=== PATIENT | male | born 1945 | race Caucasian/White ===

== ENCOUNTER → 2017-08-05 08:04 | Outpatient (CLI) | payer MEDICARE, OTHER, SELFPAY ==
[2017-08-05 10:23] LABS: Hemoglobin A1c 9.4 % (4.2-6.3)
[2017-08-05 10:24] LABS: ALB/GLOB Ratio 0.9 RATIO (0.9-2.4); AST(SGOT) 20 U/L (15-37); Alanine Aminotransfer ALT/SGPT 29 U/L (16-61); Albumin, Serum 3.1 g/dL (3.2-5.0); Alkaline Phosphatase 103 U/L (45-117); Anion Gap 5 (5-15); BUN 31 mg/dL (7-18); BUN/Creat Ratio 21.2 RATIO (10-20); Calcium,Total 8.3 mg/dL (8.5-10.1); Chloride 106 mmol/L (98-107); Cholesterol 170 mg/dL (200); Creatinine, Serum 1.46 mg/dL (0.70-1.30); EST Glomerular Filtration Rate 50 mL/min (>60); Est Glom Filt Rate - Afr Amer 61 mL/min (>60); Globulin 3.6 g/dL (2.2-4.2); Glucose 55 mg/dL (74-106); High Density Lipoprotein 41 mg/dL; Potassium 3.6 mmol/L (3.5-5.1); Protein, Total 6.7 g/dL (6.4-8.2); Sodium Level 143 mmol/L (136-145); Thyroid Stim Hormone (TSH) 3.18 uIU/mL (0.358-3.74); Triglycerides 114 mg/dL; Very Low Density Lipoprotein 23 mg/dL (5-40)
== END ==
PROVIDERS: Family Provider Nurse Practitioner; PCP Nurse Practitioner; Visit Provider Internal Medicine Endocrinology, Diabetes & Metabolism
DX: E11.65 Type 2 diabetes mellitus with hyperglycemia (principal)
CPT/HCPCS: 36415; 80053; 80061; 83036; 84443

== ENCOUNTER → 2017-09-10 10:00 | Outpatient (CLI) | payer MEDICARE, OTHER, SELFPAY ==
[2017-09-10 12:19] LABS: Absolute Lymphocyte Count 1.11 X10^3/ul (0.83-4.51); Absolute Neutrophil Count 3.4 X10^3/uL (2.0-7.7); Basophil# 0.03 X10^3/uL; Basophil% 0.6 % (0-1); Eosinophil# 0.07 X10^3/uL; Eosinophils% 1.4 % (0-5); Hematocrit 34.4 % (40-54); Hemoglobin 11.7 g/dl (13.0-16.5); Lymphocyte # 1.11 X10^3/ul (4.0); Lymphocyte % 21.6 % (19-41); Mean Corpuscular Hgb 30.5 pg (27.0-32.0); Mean Corpuscular Volume 89.6 fL (80-94); Mean Platelet Vol. 10.5 fl (6.2-12.0); Monocyte# 0.54 X10^3/uL; Monocyte% 10.5 % (0-10); Neutrophil # 3.37 X10^3/uL (2.7-7.7); Neutrophil % 65.7 % (47-70); Platelet Count 376 K/mm3 (150-450); RBC Distribution Width CV 12.2 % (11.6-14.6); RBC Distribution Width SD 39.4 fl (35.1-43.9); Red Blood Count 3.84 M/mm3 (4.6-6.2); White Blood Count 5.1 K/mm3 (4.4-11.0)
[2017-09-10 12:30] LABS: POSITIVE COUNT NO; POSITIVE DIFFERENTIAL NO; POSITIVE MORPHOLOGY NO
[2017-09-10 12:32] LABS: ALB/GLOB Ratio 0.9 RATIO (0.9-2.4); AST(SGOT) 20 U/L (15-37); Alanine Aminotransfer ALT/SGPT 22 U/L (16-61); Albumin, Serum 3.3 g/dL (3.2-5.0); Alkaline Phosphatase 95 U/L (45-117); Anion Gap 6 (5-15); BUN 43 mg/dL (7-18); BUN/Creat Ratio 24.7 RATIO (10-20); Calcium,Total 8.9 mg/dL (8.5-10.1); Chloride 104 mmol/L (98-107); Creatinine, Serum 1.74 mg/dL (0.70-1.30); EST Glomerular Filtration Rate 41 mL/min (>60); Est Glom Filt Rate - Afr Amer 50 mL/min (>60); Globulin 3.8 g/dL (2.2-4.2); Glucose 180 mg/dL (74-106); Potassium 4.1 mmol/L (3.5-5.1); Protein, Total 7.1 g/dL (6.4-8.2); Sodium Level 139 mmol/L (136-145)
== END ==
PROVIDERS: Family Provider Nurse Practitioner; PCP Nurse Practitioner; Visit Provider Nurse Practitioner Gerontology
DX: E11.65 Type 2 diabetes mellitus with hyperglycemia (principal)
CPT/HCPCS: 36415; 80053; 85025

== ENCOUNTER → 2017-09-11 09:39 | Outpatient (CLI) | payer MEDICARE, OTHER, SELFPAY ==
[2017-09-11 12:39] LABS: Absolute Lymphocyte Count 1.09 X10^3/ul (0.83-4.51); Absolute Neutrophil Count 2.7 X10^3/uL (2.0-7.7); Basophil# 0.02 X10^3/uL; Basophil% 0.5 % (0-1); Eosinophil# 0.06 X10^3/uL; Eosinophils% 1.4 % (0-5); Hematocrit 35.2 % (40-54); Hemoglobin 11.6 g/dl (13.0-16.5); Lymphocyte # 1.09 X10^3/ul (4.0); Lymphocyte % 24.9 % (19-41); Mean Corpuscular Hgb 29.4 pg (27.0-32.0); Mean Corpuscular Volume 89.1 fL (80-94); Mean Platelet Vol. 10.2 fl (6.2-12.0); Monocyte# 0.55 X10^3/uL; Monocyte% 12.6 % (0-10); Neutrophil # 2.65 X10^3/uL (2.7-7.7); Neutrophil % 60.6 % (47-70); Platelet Count 348 K/mm3 (150-450); RBC Distribution Width CV 12.4 % (11.6-14.6); RBC Distribution Width SD 40.2 fl (35.1-43.9); Red Blood Count 3.95 M/mm3 (4.6-6.2); White Blood Count 4.4 K/mm3 (4.4-11.0)
[2017-09-11 13:10] LABS: ALB/GLOB Ratio 0.9 RATIO (0.9-2.4); AST(SGOT) 21 U/L (15-37); Alanine Aminotransfer ALT/SGPT 22 U/L (16-61); Albumin, Serum 3.4 g/dL (3.2-5.0); Alkaline Phosphatase 94 U/L (45-117); Anion Gap 11 (5-15); BUN 42 mg/dL (7-18); BUN/Creat Ratio 21.9 RATIO (10-20); Calcium,Total 8.7 mg/dL (8.5-10.1); Chloride 102 mmol/L (98-107); Creatinine, Serum 1.92 mg/dL (0.70-1.30); EST Glomerular Filtration Rate 37 mL/min (>60); Est Glom Filt Rate - Afr Amer 44 mL/min (>60); Globulin 3.6 g/dL (2.2-4.2); Glucose 185 mg/dL (74-106); POSITIVE COUNT NO; POSITIVE DIFFERENTIAL NO; POSITIVE MORPHOLOGY NO; Potassium 3.8 mmol/L (3.5-5.1); Sodium Level 138 mmol/L (136-145)
== END ==
PROVIDERS: Family Provider Nurse Practitioner; PCP Nurse Practitioner; Visit Provider Nurse Practitioner Gerontology
DX: R11.0 Nausea (principal)
CPT/HCPCS: 36415; 80053; 85025

== ENCOUNTER → 2017-11-23 08:12 | Outpatient (CLI) | payer MEDICARE, OTHER, SELFPAY ==
[2017-11-23 10:15] LABS: PSA,Total - Annual Screen 3.03 ng/mL (0.00-4.00)
== END ==
PROVIDERS: Family Provider Nurse Practitioner; PCP Nurse Practitioner; Visit Provider Urology
DX: R10.9 Unspecified abdominal pain (principal); Z12.5 Encounter for screening for malignant neoplasm of prostate
CPT/HCPCS: 36415; 84153; 87086; G0103

== ENCOUNTER → 2018-01-04 08:52 | Outpatient (CLI) | payer MEDICARE, OTHER, SELFPAY ==
[2018-01-04 10:37] LABS: Hemoglobin A1c 8.5 % (4.2-6.3)
[2018-01-04 10:41] LABS: ALB/GLOB Ratio 0.8 RATIO (0.9-2.4); AST(SGOT) 18 U/L (15-37); Alanine Aminotransfer ALT/SGPT 26 U/L (16-61); Albumin, Serum 3.2 g/dL (3.2-5.0); Alkaline Phosphatase 103 U/L (45-117); Anion Gap 11 (5-15); BUN 36 mg/dL (7-18); Calcium,Total 8.6 mg/dL (8.5-10.1); Chloride 104 mmol/L (98-107); Creatinine, Serum 1.89 mg/dL (0.70-1.30); EST Glomerular Filtration Rate 37 mL/min (>60); Est Glom Filt Rate - Afr Amer 45 mL/min (>60); Globulin 3.9 g/dL (2.2-4.2); Glucose 69 mg/dL (74-106); Potassium 3.7 mmol/L (3.5-5.1); Protein, Total 7.1 g/dL (6.4-8.2); Sodium Level 144 mmol/L (136-145); Thyroid Stim Hormone (TSH) 3.19 uIU/mL (0.358-3.74)
== END ==
PROVIDERS: Family Provider Nurse Practitioner; PCP Nurse Practitioner; Visit Provider Internal Medicine Endocrinology, Diabetes & Metabolism
DX: E11.65 Type 2 diabetes mellitus with hyperglycemia (principal)
CPT/HCPCS: 36415; 80053; 83036; 84443

== ENCOUNTER → 2018-01-16 06:47 | Outpatient (CLI) | payer MEDICARE, OTHER, SELFPAY ==
--- NOTE | 2018-01-16 | IMM_PTH ---
PATIENT: DEX VALLE LOC: [facility] U#:[id number] AGE/SX: 79/M ROOM: RE01/16/[address]: Dr. Nitesh Tubbs MD : 1945 BED: DIS: SPEC #: [id number] RECD: 01/19/18 13:56 STATUS: KATI RECarolyn #: [id number] AMBER: 01/16/18 00:[address]: Nitesh Tubbs DEPT: IMMUNOHISTOCHEMISTRY RECD BY: uLma Thomas ENTERED: 01/19/18 13:58 SP TYPE: IMMUNO OTHR DR: Fina Spicer, BANDOLEER STRAIGHTENER STAMPER-C Tissues: Skin of leg, NOS Procedures: CD31 (initial) Vimentin (add) FACTOR VIII (add) PHYSICIAN & INSTITUTION [place] [address] SPECIMEN INFORMATION: Tissue Source: Left lower leg lesion of subcutaneous tissue Clinical Info: Lesion of subcutaneous tissue Specimen Number: [id number] #1 CPT code: 77257, 05294 x2 METHODOLOGY: Deparaffinized sections of prefer/formalin-fixed tissue or PAP/DQ stained slides are incubated with monoclonal/polyclonal antibodies/oligonucleotide probes. Localization is made via biotin free immunoperoxidase method. Appropriate controls are performed and reacted as expected. Results on target cell population are indicated in the following table: RESULTS: ANTIBODY / CLONE RESULT Block 1 CD31 (NATHALIE/70A) positive Factor VIII (R Ag) positive Vimentin (V9) positive These tests were developed and their performance characteristics determined by [facility]. They may not have been cleared or approved by the U.[place]. Food and Drug Administration. The FDA has determined that such clearance or approval is not necessary. 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 SJ:christiano 01/27/18 The specimen was sent to [facility] for expert opinion and reviewed by Dr. Regan Echeverria and the above diagnosis is rendered. Case has been reviewed in consultation with Dr. Patrick who concurs with the above diagnosis. IDC:AM
--- NOTE | 2018-01-16 09:00 | LES_PTH ---
PATIENT: DEX VALLE LOC: [facility] U#:[id number] AGE/SX: 79/M ROOM: RE01/16/[address]: Dr. Nitesh Tubbs MD : 1945 BED: DIS: SPEC #: [id number] RECD: 01/16/18 12:08 STATUS: KATI HOWARD #: [id number] AMBER: 01/16/18 09:[address]: Nitesh Tubbs DEPT: SURGICAL PATHOLOGY RECD BY: Salud Montilla ENTERED: 01/18/18 11:40 SP TYPE: Lesion OTHR DR: Fina Spicer, AMPOULE SEALER-C Tissues: Skin of leg, NOS Procedures: [facility] Consultation (on slides) Surgery Specimen Level IV HEADER OPERATION: Excision of left lower leg lesion of subcutaneous tissue PRE-OP DIAGNOSIS: Lesion of subcutaneous tissue TISSUE SUBMITTED: Left lower leg lesion of subcutaneous tissue MICROSCOPIC DIAGNOSIS Left lower leg lesion of subcutaneous tissue, excision: 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 POLLO:christiano 01/27/18 COMMENT Immunohistochemistry ([id number]) supports the above diagnosis. The specimen was sent to [facility] for expert opinion and reviewed by Dr. Regan Echeverria and the above diagnosis is rendered. Case has been reviewed in consultation with Dr. Patrick who concurs with the above diagnosis. IDC:AM MICROSCOPIC DESCRIPTION Slides are reviewed. GROSS DESCRIPTION Received in fixative is one container labeled with the patient's name and designated left lower leg. The specimen consists of a piece of rios-pink nodule measuring 2.5 x 2 x 1.5 cm. The specimen is inked and serially sectioned to reveal rios-white solid cut surfaces. The entire specimen is submitted in three cassettes from one end to another. / POLLO:christiano 01/18/18 TC:5 CPT: 70576
== END ==
PROVIDERS: Family Provider Nurse Practitioner; PCP Nurse Practitioner; Referring Provider Surgery; Visit Provider Surgery
DX: L98.9 Disorder of the skin and subcutaneous tissue, unspecified (principal)
CPT/HCPCS: 88305; 88325; 88341; 88342

== ENCOUNTER → 2018-02-08 08:45 | Outpatient (CLI) | payer MEDICARE, OTHER, SELFPAY ==
--- NOTE | 2018-02-08 08:49 | US_ITS ---
STUDY: RENAL ULTRASOUND - COMPLETE REASON FOR EXAM: Male, 72 years old. Chronic kidney disease TECHNIQUE: Ultrasound evaluation of the kidneys was performed with real-time and static bell-scale imaging. COMPARISON: None. FINDINGS: RIGHT KIDNEY: Normal location of the right kidney, which is normal in size. The right kidney measures 11.4 x 5.9 x 5.4 cm. There is a normal cortex of the right kidney. The renal cortex measures 1.1 cm. There is no right renal mass or cyst. 3 mm Echogenicity in the lower pole of the left kidney suggesting a nonobstructing stone. There is no right hydronephrosis. DISTAL RIGHT URETER: There is non-visualization of the distal right ureter. There is no demonstrated right ureterovesical junction calculus. There is a visualized right ureteral jet. LEFT KIDNEY: Normal location of the left kidney, which is normal in size. The left kidney measures 11.2 x 5.2 x 5.7 cm. There is diffuse thinning of the renal cortex. The renal cortex measures 0.6 cm. There is no left renal mass or cyst. There are no left renal calculi. There is no left hydronephrosis. A punctate echogenicities in the left kidney suggesting probable small stones. DISTAL LEFT URETER: There is non-visualization of the distal left ureter. There is no demonstrated left ureterovesical junction calculus. There is a visualized left ureteral jet. BLADDER: The distended urinary bladder has a volume of 41 ml. There is a normal wall thickness of the distended urinary bladder. There is no demonstrated mass within the urinary bladder. There are no demonstrated bladder calculi. US/Kidney and Bladder IMPRESSION: No evidence for hydronephrosis. Punctate stones left kidney no evidence of hydronephrosis. Punctate stone right kidney no evidence of hydronephrosis. Diffuse left renal parenchymal thinning compatible with underlying medical renal disease. Electronically Signed: Angelita Hyatt MD at 23:45 EDT Tel , Service support ,
== END ==
PROVIDERS: Family Provider Nurse Practitioner; PCP Nurse Practitioner; Referring Provider Internal Medicine Nephrology; Visit Provider Internal Medicine Nephrology
DX: N18.3 Chronic kidney disease, stage 3 (moderate) (principal)
CPT/HCPCS: 76770

== ENCOUNTER → 2018-03-08 13:10 | Outpatient (CLI) | payer MEDICARE, OTHER, SELFPAY ==
[2018-03-08 16:26] LABS: Anion Gap 11 (5-15); BUN 36 mg/dL (7-18); BUN/Creat Ratio 18.9 RATIO (10-20); Calcium,Total 8.8 mg/dL (8.5-10.1); Chloride 103 mmol/L (98-107); EST Glomerular Filtration Rate 37 mL/min (>60); Est Glom Filt Rate - Afr Amer 45 mL/min (>60); Glucose 84 mg/dL (74-106); Potassium 3.8 mmol/L (3.5-5.1); Sodium Level 142 mmol/L (136-145)
== END ==
PROVIDERS: Family Provider Nurse Practitioner; PCP Nurse Practitioner; Referring Provider Internal Medicine Endocrinology, Diabetes & Metabolism; Visit Provider Internal Medicine Endocrinology, Diabetes & Metabolism
DX: E11.65 Type 2 diabetes mellitus with hyperglycemia (principal)
CPT/HCPCS: 36415; 80048; 82533

== ENCOUNTER → 2018-04-08 07:41 | Outpatient (CLI) | payer MEDICARE, OTHER, SELFPAY ==
[2018-04-08 10:19] LABS: Absolute Lymphocyte Count 1.19 X10^3/ul (0.83-4.51); Absolute Neutrophil Count 3.7 X10^3/uL (2.0-7.7); Basophil# 0.03 X10^3/uL; Basophil% 0.6 % (0-1); Eosinophil# 0.12 X10^3/uL; Eosinophils% 2.2 % (0-5); Hematocrit 35.3 % (40-54); Hemoglobin 11.5 g/dl (13.0-16.5); Lymphocyte # 1.19 X10^3/ul (4.0); Mean Corp Hgb Conc 32.6 g/gl (32-36); Mean Corpuscular Hgb 29.6 pg (27.0-32.0); Mean Corpuscular Volume 90.7 fL (80-94); Mean Platelet Vol. 10.4 fl (6.2-12.0); Monocyte# 0.42 X10^3/uL; Monocyte% 7.7 % (0-10); Neutrophil # 3.66 X10^3/uL (2.7-7.7); Neutrophil % 67.5 % (47-70); Platelet Count 377 K/mm3 (150-450); RBC Distribution Width CV 12.3 % (11.6-14.6); RBC Distribution Width SD 40.7 fl (35.1-43.9); Red Blood Count 3.89 M/mm3 (4.6-6.2); White Blood Count 5.4 K/mm3 (4.4-11.0)
[2018-04-08 10:23] LABS: POSITIVE COUNT NO; POSITIVE DIFFERENTIAL NO; POSITIVE MORPHOLOGY NO
[2018-04-08 10:31] LABS: ALB/GLOB Ratio 0.8 RATIO (0.9-2.4); AST(SGOT) 20 U/L (15-37); Alanine Aminotransfer ALT/SGPT 28 U/L (16-61); Albumin, Serum 3.2 g/dL (3.2-5.0); Alkaline Phosphatase 110 U/L (45-117); Anion Gap 10 (5-15); BUN 38 mg/dL (7-18); Calcium,Total 8.8 mg/dL (8.5-10.1); Chloride 103 mmol/L (98-107); EST Glomerular Filtration Rate 37 mL/min (>60); Est Glom Filt Rate - Afr Amer 45 mL/min (>60); Globulin 3.9 g/dL (2.2-4.2); Glucose 101 mg/dL (74-106); Potassium 3.5 mmol/L (3.5-5.1); Protein, Total 7.1 g/dL (6.4-8.2); Sodium Level 142 mmol/L (136-145)
== END ==
PROVIDERS: Family Provider Nurse Practitioner; PCP Nurse Practitioner; Referring Provider Nurse Practitioner; Visit Provider Nurse Practitioner
DX: E11.22 Type 2 diabetes mellitus with diabetic chronic kidney disease (principal); N18.3 Chronic kidney disease, stage 3 (moderate); D64.9 Anemia, unspecified
CPT/HCPCS: 36415; 80053; 85025

== ENCOUNTER → 2018-05-05 11:07 | Outpatient (CLI) | payer MEDICARE, OTHER, SELFPAY ==
[2018-05-05 11:01] VITALS: BMI 25.2
--- NOTE | 2018-05-05 11:10 | RAD_ITS ---
STUDY: X-RAY CHEST REASON FOR EXAM: Male, 72 years old. Cough. TECHNIQUE: PA and lateral views of the chest. COMPARISON: Comparison is made with prior study dated September 08, 2012. FINDINGS: Stable mild increased markings at the left lung base suggestive of scarring. Scattered calcified granulomas. There is no demonstrated pleural abnormality. Normal size heart. Normal mediastinum and allison. Normal visualized pulmonary arteries. There is atherosclerotic calcification of the aortic arch with tortuosity. There are diffuse degenerative changes of the visualized thoracic spine. Normal visualized ribs, clavicles, and shoulders. There is no demonstrated abnormality of the visualized soft tissue structures of the upper abdomen. RAD/Chest PA and Lateral IMPRESSION: Mild increased markings at the left lung base suggestive of scarring. There has been no change. Electronically Signed: Elvis Green MD at 12:35 EST , Service support ,
--- OUTSIDE RECORDS SUMMARY | 2018-07-07 09:00 | XMS RPT_ITS ---
:1945 Author Organization OHIP Support Name Relationship Address Phone ARTURO CABEZAS Unavailable [address] + [place] [address] R Unavailable Unavailable Unavailable EFREN VALLE Unavailable [address] + [place] [address] ARTURO CABEZAS Unavailable [address] + [place] [address] R Unavailable Unavailable Unavailable EFREN VALLE Unavailable [address] + [place] [address] KEMI CABEZASA Unavailable Unavailable + R Unavailable Unavailable Unavailable EFREN VALLE Unavailable [address] + [place] [address] ARTURO CABEZAS Unavailable Unavailable + [place] [address] R Unavailable Unavailable Unavailable EFREN VALLE Unavailable [address] + [place] [address] KEMI CABEZASA Unavailable Unavailable + [place] [address] R Unavailable Unavailable Unavailable EFREN VALLE Unavailable [address] + [place] [address] ARTURO CABEZAS Unavailable . + [place] [address] R Unavailable Unavailable Unavailable EFREN VALLE Unavailable [address] + [place] [address] R Unavailable Unavailable Unavailable EFREN VALLE Unavailable [address] + [place] [address] ARTURO CABEZAS Unavailable Unavailable + [place] [address] R Unavailable Unavailable Unavailable TORI EFREN Unavailable [address] + [place] [address] R Unavailable Unavailable Unavailable TORICARISAON Unavailable [address] + [place] [address] R Unavailable Unavailable Unavailable VALLECARISAON Unavailable [address] + [place] [address] R Unavailable Unavailable Unavailable EFREN VALLE Unavailable [address] + [place] [address] R Unavailable Unavailable Unavailable VALLE EFREN Unavailable [address] + [place] [address] R Unavailable Unavailable Unavailable TORI EFREN Unavailable [address] + [place] [address] R Unavailable Unavailable Unavailable VALLECARISAON Unavailable [address] + [place] [address] R Unavailable Unavailable Unavailable EFREN VALLE Unavailable [address] + [place] [address] R Unavailable Unavailable Unavailable VALLECARISAON Unavailable [address] + [place] [address] Care Team Providers Name Role Phone Fina Spicer Attending Unavailable lGoria Xiong MD Referring Unavailable Fina Spicer Consulting Unavailable Nayan Fina Attending Unavailable Coltona, Fina Referring [facility]available [facility]available Micah Atkins Attending Unavailable Nayan, Fina Referring Unavailable Micah Atkins Attending Unavailable Micah Atkins Referring Unavailable Fina Spicer Primary Care Unavailable Luis Schumacher Attending Unavailable Coltona Fina Referring Unavailable Hamzah Olvera Attending Unavailable [place] Fina [facility]erring [facility]available Suzette Lee Attending Unavailable [facility] Primary Care Unavailable Mounika Chen INSPECTOR [employer]-C Attending Unavailable Mounika Chen INSPECTOR [employer]-C Referring Unavailable [facility] Fina Primary Care Unavailable Mounika Chen INSPECTOR [employer]-C Attending Unavailable Mounika Chen INSPECTOR [employer]-C Referring Unavailable [facility] Fina Primary Care Unavailable Brendon Bartlett Attending Unavailable Brendon Bartlett Referring Unavailable [facility] Primary Care Unavailable Raghunathan, Suzette N. Attending Unavailable Rosa, Suzette N. Referring Unavailable Fina Spicer Primary Care Unavailable Nitesh Tubbs Attending Unavailable Fina Spicer Referring Unavailable Nitesh Tubbs Attending Unavailable Fina Spicer Referring Unavailable Arley, Nitesh Attending Unavailable Arley, Nitesh Referring Unavailable Fina Spicer Primary Care Unavailable Jeanna Martinez PA-C Attending Unavailable Nayan, Fina Referring Unavailable Kristian, Janorahprakash Attending Unavailable Kristian, Jayaprakash Referring Unavailable Fina Spicer Primary Care Unavailable Rosa, Suzette N. Attending Unavailable Fina Spicer Primary Care Unavailable Rosa, Suzette N. 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 [facility] with hyperglycemia Hospital / E11.65(ICD-10) Repository PROCEDURES PROCEDURES No Procedure Records FoundRESULTS RESULTS URGENT CARE VISIT Observed: 05/05/2018 Status: F Source: [place] REPORT 2:32 PM [facility] REPOSITORY [facility] [address] [place] [address] OFFICE VISIT Date of Service: 05/05/18 MR#: [id number] Acct: [id number] Name: VALLELUIS MURRIETA Orin Rep #: [id number] : 1945 Provider: Micah SINGH Age/Sex: 72/M Location: [facility] Status: Signed Intake Vital Signs05/05/18 Height 5 ft 6 in Intake Visit Reasons: COUGH/CHEST CONGESTION Chief Complaint: Cough, chest congestion, fatigue Clay Press Operator Required: No Accompanied by: Self Is patient in pain?: No Allergies No Known Allergies Allergy (Verified 05/05/18 11:02) Medications aspirin 81 mg tablet,delayed release 81 mg PO QDAY tab 06/15/17 [History Confirmed 05/05/18] colestipol 1 gram tablet See Rx Instructions PO QAM tab 06/15/17 [History Confirmed 05/05/18] folic acid 1 mg tablet 1 mg PO QDAY 06/15/17 [History Confirmed 05/05/18] gabapentin 300 mg capsule 300 mg PO TID 06/15/17 [History Confirmed 05/05/18] hydrochlorothiazide 25 mg tablet 25 mg PO QDAY tab 06/15/17 [History Confirmed 05/05/18] potassium chloride ER 20 mEq tablet,extended release 20 meq PO QDAY 06/15/17 [History Confirmed 05/05/18] pravastatin 40 mg tablet 40 mg PO QDAY tab 06/15/17 [History Confirmed 05/05/18] tamsulosin 0.4 mg capsule 0.4 mg PO QDAY 06/15/17 [History Confirmed 05/05/18] amlodipine 5 mg tablet 5 mg PO QDAY 06/16/17 [History Confirmed 05/05/18] finasteride 5 mg tablet 5 mg PO QDAY 06/16/17 [History Confirmed 05/05/18] lisinopril 40 mg tablet 40 mg PO QDAY 06/16/17 [History Confirmed 05/05/18] multivitamin tablet 1 tab PO QDAY 06/16/17 [History Confirmed 05/05/18] calcium citrate 250 mg tablet 250 mg PO DAILY tab 01/08/18 [History Confirmed 05/05/18] cholecalciferol (vitamin D3) 5,000 unit capsule 5,000 unit PO DAILY 01/08/18 [History Confirmed 05/05/18] docusate sodium 250 mg capsule 250 mg PO DAILY 01/08/18 [History Confirmed 05/05/18] insulin glargine (U-100) 100 unit/mL (3 mL) subcutaneous pen 12 unit SC DAILY 01/08/18 [History Confirmed 05/05/18] insulin lispro (U-200) 200 unit/mL (3 mL) subcutaneous pen 30 unit SC QACLUNCH 01/08/18 [History Confirmed 05/05/18] levofloxacin 750 mg tablet 750 mg PO DAILY #10 tab 05/05/18 [Rx Confirmed 05/05/18] [facility] Medical History Hyperlipidemia (Chronic) Atherosclerotic heart disease of [place] coronary artery without angina pectoris (Chronic) Diabetes mellitus type 1, controlled, without complications (Chronic) Sleep apnea (Chronic) Hypertension (Chronic) Diabetes mellitus (Chronic) Dyspnea on exertion (Acute) Family history of hyperlipidemia (Acute) Family history of hypertension (Acute) Headache (Acute) Surgical History History of bilateral inguinal hernia repair (Acute 2007) History of colonoscopy (Acute 2013) History of hemorrhoidectomy (Resolved 2000) History of hernia repair (Resolved 1991) stent replacement for right sided kidney stome (Resolved) Family History Father Diabetes Hypertension Family history of hyperlipidemia Asthma Kidney disease Mother Diabetes Brother Cancer Throat cancer Brother CAD (coronary artery disease) Myocardial infarction, Onset Age: 52 Sister Family history of hyperlipidemia Hypertension Diabetes Other Family history of hypertension Social History Smoking Status: Former smoker how long ago did patient quit smokin alcohol intake: former year quit: 1984 substance use type: does not use caffeine: Yes Type: coffee Number of servings: 2 what type of physical activity do you participate in: none seatbelt use: sometimes do you feel safe at home: Yes HPI HPI Chief Complaint: Cough, chest congestion, fatigue Details: LUIS VALLE, is a 72 M who presents to the office today for initial evaluation approximately 5-6-day history of progressively worsening cough, chest congestion, fatigue with occasional chills. No complaints of fever, sweats, rash, chest pressure/shortness of breath/wheezing. Patient notes having recently been placed on prednisone for exacerbation of polymyalgia rheumatica symptoms, and therefore noting his diabetes has been poorly controlled lately. He is a non-smoker noting no other members in household with similar complaints. He notes no other associated symptoms no other alleviating or aggravating factors. ROS Const Constitutional: No other (ROS negative x10 other than as noted above) Exam Const General: cooperative, healthy appearing, no acute distress, uncomfortable Nutritional Appearance: average body habitus Orientation: alert, awake, oriented x3 [facility] Head: normal to inspection Ears: hearing grossly normal bilaterally, external ears normal, TM's normal bilaterally, EAC's normal Nose: external nose normal, nares normal, septum normal, no nasal discharge Face and sinus: normal facial exam, sinuses nontender, face symmetric Mouth: tongue normal, lip normal, oral mucosae normal Teeth and gingiva: dentition normal, gingiva normal Throat: uvula midline, posterior oropharynx normal, tonsils normal, no postnasal drainage Eyes General: appearance normal, both eyes and all related structures Neck Neck: normal visual inspection, full ROM, no lymphadenopathy, no meningeal signs, supple Neck mass: No Thyroid: thyroid normal Lymphatic: no lymphadenopathy noted Chest Chest palpation AND inspection: normal inspection of the chest Resp Effort AND Inspection: normal respiratory effort, able to speak in complete sentences, symmetric chest movement, cough Quality of cough: wet (Nonproductive in office today) Auscultation: Bilateral: Clear to Auscultation Cardio Palpation: normal PMI Rate: regular rate Rhythm: regular rhythm Heart Sounds: S1 normal, S2 normal, no gallops, no murmurs, no rubs Pulses: radial pulses present GI Inspection: normal to inspection Palpation: soft, no hepatosplenomegaly Skin General: no rashes or lesions noted Neuro General: alert, awake, oriented x3, gait normal Cognition: normal cognition Speech: speech normal Gait: normal gait Motor: muscle tone normal throughout Sensory Exam: no sensory deficits noted Psych Appearance: grossly normal Mental Status: mental status grossly normal Mood: congruent mood Affect: normal affect Speech and Movement: speech and movement normal Attitude: cooperative Thought Process: normal Thought Content: normal Judgment: judgment good Assessment AND Plan Problems 1. Bronchitis J40 Plan Today's chest x-rays revealed no acute pulmonary changes as noted by radiologist; these results were reviewed with patient and spouse in office today. Levofloxacin as prescribed today. Clear fluids, rest, Tylenol as needed for symptomatic relief. Follow-up with PCP in 3-5 days should symptoms not improve, emergency department sooner should symptoms worsen or any other concerns develop. Patient and spouse both state acknowledging understanding all the above. This note was generated with FONU2ation software. It may contain incorrect words, spelling, and punctuation that were not noted in checking the note before signing. Orders Orders: Medications New: Coding Level of Care Code Off vis,est,level 4 Diagnoses Bronchitis J40 05/05/18 1432 <Electronically signed by Micah SINGH> Date Micah SINGH Cosigner Signature: Date (if applicable) CC: CHEST PA AND LATERAL Observed: 05/05/2018 Status: F Source: [place] 11:10 AM [facility] REPOSITORY [facility] Imaging Services [address] [place] [address] Chest PA and Lateral MR#: [id number] Acct: [id number] Name: LUIS VALLE Rep #: [id number] : 1945 M 72 From: Elvis Green MD PCP: Fina Spicer NP Status: REG CLI Study: Chest PA and Lateral Date of Exam: 05/05/18 Exam# [id number] Ordering Dr: Micah Atkins STUDY: X-RAY CHEST REASON FOR EXAM: Male, 72 years old. Cough. TECHNIQUE: PA and lateral views of the chest. COMPARISON: Comparison is made with prior study dated September 08, 2012. FINDINGS: Stable mild increased markings at the left lung base suggestive of scarring. Scattered calcified granulomas. There is no demonstrated pleural abnormality. Normal size heart. Normal mediastinum and allison. Normal visualized pulmonary arteries. There is atherosclerotic calcification of the aortic arch with tortuosity. There are diffuse degenerative changes of the visualized thoracic spine. Normal visualized ribs, clavicles, and shoulders. There is no demonstrated abnormality of the visualized soft tissue structures of the upper abdomen. RAD/Chest PA and Lateral IMPRESSION: Mild increased markings at the left lung base suggestive of scarring. There has been no change. Electronically Signed: Elvis Green MD at 12:35 EST , Service support , CC: Fina Spicer INSPECTOR [employer]AMES; Micah SINGH Call Center Nurse: Signed CBC W/DIFF, AUTOMATED Collected: 04/08/2018 Status: F Source: [place] 7:46 AM [facility] REPOSITORY TYPE CODE TESTS RESULT OUT OF RANGE REFERENCE UNITS LAB L100.1000 4.4-11.0 K/mm3 Normal WBC 5.4 LAB L100.1200 4.6-6.2 M/mm3 Low RBC 3.89 LAB L100.1300 13.0-16.5 g/dl Low HGB 11.5 LAB L100.1400 40-54 % Low HCT 35.3 LAB L100.1500 80-94 fL Normal MCV 90.7 LAB L100.1600 27.0-32.0 pg Normal MCH 29.6 LAB L100.1700 32-36 g/gl Normal MCHC 32.6 LAB L100.1810 11.6-14.6 % Normal RDW CV 12.3 LAB L100.1820 35.1-43.9 fl Normal RDW SD 40.7 LAB L100.1900 150-450 K/mm3 Normal PLT 377 LAB L100.2000 6.2-12.0 fl Normal MPV 10.4 LAB L100.2100 47-70 % Normal NEUT% 67.5 LAB L100.2200 19-41 % Normal LY% 22.0 LAB L100.2300 0-10 % Normal MONO% 7.7 LAB L100.2400 0-5 % Normal EO% 2.2 LAB L100.2500 0-1 % Normal BASO% 0.6 LAB L100.2550 0.0-0.9 % Normal IM GRAN % 0.000 Result Comment: IG% - Immature Granulocytes (promyelocytes, myelocytes and metamyelocytes) > 1% indicates that a LEFT SHIFT is Present. LAB L100.2620 2.0-7.7 X10 3/uL Normal Absolute Neut 3.7 LAB L100.2720 0.83-4.51 X10 3/ul Normal Absolute Lymph 1.19 Performed By: #### L100.0100 #### [facility] [address] [place], [place], [address] COMPREHENSIVE METABOLIC Collected: 04/08/2018 Status: F Source: [place] MENDEZ 7:46 AM [facility] REPOSITORY TYPE CODE TESTS RESULT OUT OF RANGE REFERENCE UNITS LAB L501.0100 74-106 mg/dL Normal GLU 101 Result Comment: Fasting Glucose result from 100 to 125 mg/dL suggests IMPAIRED HOMEOSTASIS per A.D.A. criteria. Please note revised GLUCOSE reference range effective 2017. LAB L501.1000 7-18 mg/dL High BUN 38 LAB L501.1100 0.70-1.30 mg/dL High CREAT,SERUM 1.90 Result Comment: The validity of the calculated GFR AND GFRAA in patients over 70 years has not been determined. Clinical correlation is essential. LAB L501.1110 >60 mL/min Low EST GFR 37 Result Comment: Non- GFR Calc LAB L501.1115 >60 mL/min Low EST GFR - AA 45 Result Comment: GFR Calc LAB L501.1300 10-20 RATIO Normal BUN/CRE 20.0 LAB L501.1500 6.4-8.2 g/dL T Normal PROT 7.1 LAB L501.1800 3.2-5.0 g/dL Normal ALB 3.2 LAB L501.1950 2.2-4.2 g/dL Normal GLOB 3.9 LAB L501.2000 0.9-2.4 RATIO Low A/G 0.8 LAB L501.2200 8.5-10.1 mg/dL CA Normal 8.8 LAB L501.4100 15-37 U/L Normal AST 20 LAB L501.4305 45-117 U/L Normal ALK P 110 LAB L501.4405 16-61 U/L Normal ALT 28 LAB L501.4600 0.20-1.00 mg/dL T Normal BILI 0.40 LAB L501.5300 136-145 mmol/L NA Normal 142 LAB L501.5600 3.5-5.1 mmol/L K Normal 3.5 LAB L501.5900 98-107 mmol/L CL Normal 103 LAB L501.6100 21.0-32.0 mmol/L Normal CO2 29.0 LAB L501.6200 5-15 Normal GAP 10 Performed By: #### L500.4050 #### [facility] [address] [place], [place], [address] BASIC METABOLIC Collected: 03/08/2018 Status: F Source: [place] PROFILE (BMP) 1:14 PM [facility] REPOSITORY TYPE CODE TESTS RESULT OUT OF RANGE REFERENCE UNITS LAB L501.0100 74-106 mg/dL Normal GLU 84 Result Comment: Please note revised GLUCOSE reference range effective 2017. LAB L501.1000 7-18 mg/dL High BUN 36 LAB L501.1100 0.70-1.30 mg/dL High CREAT,SERUM 1.90 Result Comment: The validity of the calculated GFR AND GFRAA in patients over 70 years has not been determined. Clinical correlation is essential. LAB L501.1110 >60 mL/min Low EST GFR 37 Result Comment: Non- GFR Calc LAB L501.1115 >60 mL/min Low EST GFR - AA 45 Result Comment: GFR Calc LAB L501.1300 10-20 RATIO Normal BUN/CRE 18.9 LAB L501.2200 8.5-10.1 mg/dL CA Normal 8.8 LAB L501.5300 136-145 mmol/L NA Normal 142 LAB L501.5600 3.5-5.1 mmol/L K Normal 3.8 LAB L501.5900 98-107 mmol/L CL Normal 103 LAB L501.6100 21.0-32.0 mmol/L Normal CO2 28.0 LAB L501.6200 5-15 Normal GAP 11 Performed By: #### L500.2500 #### [facility] [address] [place], [place], [address] CORTISOL SERUM Collected: 03/08/2018 Status: F Source: [place] 1:14 PM [facility] REPOSITORY Order Comment: BASELINE OR POST MEDICATION STIMULATION?: Baseline TYPE CODE TESTS RESULT OUT OF RANGE REFERENCE UNITS LAB L509.6000 3.09-22.40 ug/dL Normal CORTISOL 13.20 Result Comment: Adult (AM) 4.30 - 22.40 ug/dL Adult (PM) 3.09 - 16.66 ug/dL Performed By: #### L509.6000 #### [facility] [address] [place], [address] KIDNEY AND BLADDER Observed: 02/08/2018 Status: F Source: [place] 8:49 AM [facility] REPOSITORY [facility] Imaging Services [address] [place] [address] Kidney and Bladder MR#: [id number] Acct: [id number] Name: LUIS VALLE Rep #: [id number] : 1945 M 72 From: Angelita Hyatt MD PCP: Fina Spicer NP Status: REG CLI Study: Kidney and Bladder Date of Exam: 02/08/18 Exam# [id number] Ordering Dr: Maria Guadalupe Townsend MD STUDY: RENAL ULTRASOUND - COMPLETE REASON FOR EXAM: Male, 72 years old. Chronic kidney disease TECHNIQUE: Ultrasound evaluation of the kidneys was performed with real-time and static bell-scale imaging. COMPARISON: None. FINDINGS: RIGHT KIDNEY: Normal location of the right kidney, which is normal in size. The right kidney measures 11.4 x 5.9 x 5.4 cm. There is a normal cortex of the right kidney. The renal cortex measures 1.1 cm. There is no right renal mass or cyst. 3 mm Echogenicity in the lower pole of the left kidney suggesting a nonobstructing stone. There is no right hydronephrosis. DISTAL RIGHT URETER: There is non-visualization of the distal right ureter. There is no demonstrated right ureterovesical junction calculus. There is a visualized right ureteral jet. LEFT KIDNEY: Normal location of the left kidney, which is normal in size. The left kidney measures 11.2 x 5.2 x 5.7 cm. There is diffuse thinning of the renal cortex. The renal cortex measures 0.6 cm. There is no left renal mass or cyst. There are no left renal calculi. There is no left hydronephrosis. A punctate echogenicities in the left kidney suggesting probable small stones. DISTAL LEFT URETER: There is non-visualization of the distal left ureter. There is no demonstrated left ureterovesical junction calculus. There is a visualized left ureteral jet. BLADDER: The distended urinary bladder has a volume of 41 ml. There is a normal wall thickness of the distended urinary bladder. There is no demonstrated mass within the urinary bladder. There are no demonstrated bladder calculi. US/Kidney and Bladder IMPRESSION: No evidence for hydronephrosis. Punctate stones left kidney no evidence of hydronephrosis. Punctate stone right kidney no evidence of hydronephrosis. Diffuse left renal parenchymal thinning compatible with underlying medical renal disease. Electronically Signed: Angelita Hyatt MD at 23:45 EDT Tel , Service support , CC: Fina Spicer NP; Esme Townsend M.D. Call Center Nurse: Signed SURGERY VISIT REPORT Observed: 02/02/2018 Status: F Source: [place] 10:06 AM [facility] REPOSITORY [facility] [address] [place] [address]. 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 Operator Required: No Is patient in pain?: No Allergies No Known Allergies Allergy (Verified 01/26/18 08:03) Medications aspirin 81 mg tablet,delayed release 81 mg PO QDAY tab 06/15/17 [History Confirmed 01/26/18] colestipol 1 gram tablet See Rx Instructions PO QAM tab 06/15/17 [History Confirmed 01/26/18] folic acid 1 mg tablet 1 mg PO QDAY 06/15/17 [History Confirmed 01/26/18] gabapentin 300 mg capsule 300 mg PO TID 06/15/17 [History Confirmed 01/26/18] hydrochlorothiazide 25 mg tablet 25 mg PO QDAY tab 06/15/17 [History Confirmed 01/26/18] potassium chloride ER 20 mEq tablet,extended release 20 meq PO QDAY 06/15/17 [History Confirmed 01/26/18] pravastatin 40 mg tablet 40 mg PO QDAY tab 06/15/17 [History Confirmed 01/26/18] tamsulosin 0.4 mg capsule 0.4 mg PO QDAY 06/15/17 [History Confirmed 01/26/18] amlodipine 5 mg tablet 5 mg PO QDAY 06/16/17 [History Confirmed 01/26/18] finasteride 5 mg tablet 5 mg PO QDAY 06/16/17 [History Confirmed 01/26/18] lisinopril 40 mg tablet 40 mg PO QDAY 06/16/17 [History Confirmed 01/26/18] multivitamin tablet 1 tab PO QDAY 06/16/17 [History Confirmed 01/26/18] calcium citrate 250 mg tablet 250 mg PO DAILY tab 01/08/18 [History Confirmed 01/26/18] cholecalciferol (vitamin D3) 5,000 unit capsule 5,000 unit PO DAILY 01/08/18 [History Confirmed 01/26/18] docusate sodium 250 mg capsule 250 mg PO DAILY 01/08/18 [History Confirmed 01/26/18] insulin glargine (U-100) 100 unit/mL (3 mL) subcutaneous pen 12 unit SC DAILY 01/08/18 [History Confirmed 01/26/18] insulin lispro (U-200) 200 unit/mL (3 mL) subcutaneous pen 30 unit SC QACLUNCH 01/08/18 [History Confirmed 01/26/18] [facility] Medical History Hyperlipidemia (Chronic) Atherosclerotic heart disease of [place] coronary artery without angina pectoris (Chronic) Diabetes mellitus type 1, controlled, without complications (Chronic) Sleep apnea (Chronic) Hypertension (Chronic) Diabetes mellitus (Chronic) Dyspnea on exertion (Acute) Family history of hyperlipidemia (Acute) Family history of hypertension (Acute) Headache (Acute) Surgical History History of bilateral inguinal hernia repair (Acute 2007) History of colonoscopy (Acute 2013) History of hemorrhoidectomy (Resolved 2000) History of hernia repair (Resolved 1991) stent replacement for right sided kidney stome (Resolved) Family History Father Diabetes Hypertension Family history of hyperlipidemia Asthma Kidney disease Mother Diabetes Brother Cancer Throat cancer Brother CAD (coronary artery disease) Myocardial infarction, Onset Age: 52 Sister Family history of hyperlipidemia Hypertension Diabetes Other Family history of hypertension Social History Smoking Status: Former smoker how long ago did patient quit smokin alcohol intake: former year quit: 1984 substance use type: does not use caffeine: Yes Type: coffee Number of servings: 2 what type of physical activity do you participate in: none seatbelt use: sometimes do you feel safe at home: Yes HPI HPI HPI: LUIS VALLE, is a 72 M who presents to the office today for Office Procedures Excision of Skin Provider Documentation Provider Documentation: Preoperative diagnosis: 2-1/2 cm subcutaneous lesion to left lower leg Postoperative diagnosis: The same Procedure: Excision of a 2-1/2 cm subcutaneous lesion to left lower leg Surgeon: Arley Procedure: Left lower leg was sterilely prepped and draped in usual fashion. 1% lidocaine plain was injected. A 3 cm incision was made. I dissected out what I thought was a vascular abnormality. But it really did not have an inlet or an exit flow to it. It was certainly not a lipoma. And I had excellent hemostasis at the end. Brought the wound together with interrupted sutures of 4-0 nylon. Sterile dressings were applied. The patient tolerated the procedure Alert Trace Alert Billing: Yes T/A/L 87001 2.1-3.0cm Procedure Time Out Time Out Informed consent given: Yes Consent signed: Yes Time out checklist: patient, procedure, site marked/identified, positioning of patient, supplies available, allergies confirmed, team agrees on procedure Time out staff in room: Yes Time out verified: Yes Time out date: 01/16/18 Time out time: 09:00 Assessment AND Plan Orders Orders: Coding Level of Care Code Attention Nba Player Additional Codes T/A/L - Benign T/A/L: 40328 2.1-3.0cm (05968) 02/02/18 1006 <Electronically signed by Nitesh Tubbs MD> Date Nitesh Shin Signature: Date (if applicable) CC: SURGERY VISIT REPORT Observed: 01/26/2018 Status: F Source: [place] 3:06 PM [facility] REPOSITORY [facility] 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 Is patient in pain?: No Allergies No Known Allergies Allergy (Verified 01/26/18 08:03) Medications aspirin 81 mg tablet,delayed release 81 mg PO QDAY tab 06/15/17 [History Confirmed 01/26/18] colestipol 1 gram tablet See Rx Instructions PO QAM tab 06/15/17 [History Confirmed 01/26/18] folic acid 1 mg tablet 1 mg PO QDAY 06/15/17 [History Confirmed 01/26/18] gabapentin 300 mg capsule 300 mg PO TID 06/15/17 [History Confirmed 01/26/18] hydrochlorothiazide 25 mg tablet 25 mg PO QDAY tab 06/15/17 [History Confirmed 01/26/18] potassium chloride ER 20 mEq tablet,extended release 20 meq PO QDAY 06/15/17 [History Confirmed 01/26/18] pravastatin 40 mg tablet 40 mg PO QDAY tab 06/15/17 [History Confirmed 01/26/18] tamsulosin 0.4 mg capsule 0.4 mg PO QDAY 06/15/17 [History Confirmed 01/26/18] amlodipine 5 mg tablet 5 mg PO QDAY 06/16/17 [History Confirmed 01/26/18] finasteride 5 mg tablet 5 mg PO QDAY 06/16/17 [History Confirmed 01/26/18] lisinopril 40 mg tablet 40 mg PO QDAY 06/16/17 [History Confirmed 01/26/18] multivitamin tablet 1 tab PO QDAY 06/16/17 [History Confirmed 01/26/18] calcium citrate 250 mg tablet 250 mg PO DAILY tab 01/08/18 [History Confirmed 01/26/18] cholecalciferol (vitamin D3) 5,000 unit capsule 5,000 unit PO DAILY 01/08/18 [History Confirmed 01/26/18] docusate sodium 250 mg capsule 250 mg PO DAILY 01/08/18 [History Confirmed 01/26/18] insulin glargine (U-100) 100 unit/mL (3 mL) subcutaneous pen 12 unit SC DAILY 01/08/18 [History Confirmed 01/26/18] insulin lispro (U-200) 200 unit/mL (3 mL) subcutaneous pen 30 unit SC QACLUNCH 01/08/18 [History Confirmed 01/26/18] Subjective Details: Patient is a 72 y/o male I am following for a skin lesion of the left lower leg. Dr. Tubbs performed an excision of left lower skin lesion on 01/16/18. Patient tolerated the procedure well. Patient noted a sharp shooting pain at the incision site radiating down into his left medial ankle on Thursday. Patient noted today the discomfort is much improved. Pathology is pending. Objective Details: Left lower leg- incision c/d/i. No erythema or infection noted. Sutures were removed. Dermabond applied. Assessment AND Plan Problems 1. Skin lesion L98.9 Plan - Will call patient with results from pathology - Follow-up as needed Coding Level of Care Code Global Post Op Diagnoses Skin lesion L98.9 01/26/18 1506 <Electronically signed by Jeanna Martinez PA-C> Date Jeanna Martinez PA-C Cosigner Signature: Date (if applicable) CC: LESION (CHOOSE SITE) Observed: 01/16/2018 Status: F Source: [place] 9:00 AM [facility] REPOSITORY Patient: LUIS VALLE : 1945 (72/M) Acct Num: [id number] Phys: Nitesh Tubbs MD Unit Num: [id number] Loc: LABSPEC Specimen: [id number] Received: 01/16/188 Spec Type: Lesion TISSUES 1 TISSUES: Skin of leg, NOS COMMENT Immunohistochemistry ([id number]) supports the above diagnosis. The specimen was sent to [facility] for expert opinion and reviewed by Dr. Regan Echeverria and the above diagnosis is rendered. Case has been reviewed in consultation with Dr. Patrick who concurs with the above diagnosis. IDC:AM GROSS DESCRIPTION Received in fixative is one container labeled with the patient's name and designated left lower leg. The specimen consists of a piece of rios-pink nodule measuring 2.5 x 2 x 1.5 cm. The specimen is inked and serially sectioned to reveal rios-white solid cut surfaces. The entire specimen is submitted in three cassettes from one end to another. / POLLO:christiano 01/18/18 TC:5 CPT: 74538 HEADER OPERATION: Excision of left lower leg lesion of subcutaneous tissue PRE-OP DIAGNOSIS: Lesion of subcutaneous tissue TISSUE SUBMITTED: Left lower leg lesion of subcutaneous tissue MICROSCOPIC DESCRIPTION Slides are reviewed. 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 SJ:christiano 01/27/18 Signed Omid Gómez 01/27/18 <signature on file> Performed By: #### PLES #### [facility] [address] [place], [address] IMMUNOHISTOCHEMISTRY Observed: 01/16/2018 Status: F Source: [place] 12:00 AM [facility] REPOSITORY Patient: LUIS VALLE : 1945 (72/M) Acct Num: [id number] Phys: Arley VARGAS,Nitesh Unit Num: [id number] Loc: LABSPEC Specimen: [id number] Received: 01/19/18 - 2915 Spec Type: IMMUNO TISSUES 1 TISSUES: Skin of leg, NOS - #1 SPECIMEN INFORMATION: Tissue Source: Left lower leg lesion of subcutaneous tissue Clinical Info: Lesion of subcutaneous tissue Specimen Number: [id number] #1 CPT code: 67467, 89110 x2 METHODOLOGY: Deparaffinized sections of prefer/formalin-fixed tissue or PAP/DQ stained slides are incubated with monoclonal/polyclonal antibodies/oligonucleotide probes. Localization is made via biotin free immunoperoxidase method. Appropriate controls are performed and reacted as expected. Results on target cell population are indicated in the following table: RESULTS: ANTIBODY / CLONE RESULT Block 1 CD31 (NATHALIE/70A) positive Factor VIII (R Ag) positive Vimentin (V9) positive These tests were developed and their performance characteristics determined by [facility]. They may not have been cleared or approved by the U.S. Food and Drug Administration. The FDA has determined that such clearance or approval is not necessary. 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 SJ:christiano 01/27/18 The specimen was sent to [facility] for expert opinion and reviewed by Dr. Regan Echeverria and the above diagnosis is rendered. Case has been reviewed in consultation with Dr. Patrick who concurs with the above diagnosis. IDC:AM PHYSICIAN AND INSTITUTION [place] [id number] Signed Omid Gómez 01/27/18 <signature on file> Performed By: #### PIMM #### [facility] [address] [place] [address]. [place], [address] SURGERY VISIT REPORT Observed: 01/12/2018 Status: F Source: [place] 9:53 [facility] REPOSITORY [facility] [address] [place] [address]. [address] [place] [address] OFFICE VISIT Date of Service: 01/08/18 MR#: [id number] Acct: [id number] Name: LUIS VALLE Rep #: [id number] : 1945 Provider: Nitesh Tubbs MD Age/Sex: 72/M Location: [facility] Status: Signed Intake Vital Signs01/08/18 Height 5 ft 7 in 01/08/18 Weight: 165 lb 5 oz 01/08/18 Body Mass Index (BMI) 25.9 01/08/18 Blood Pressure 171/77 H Intake Visit Reasons: Cyst on Lt Calf - no testing, self ref Chief Complaint: LLE mass Clay Press Operator Required: No Is patient in pain?: No Allergies No Known Allergies Allergy (Verified 01/08/18 08:27) Medications aspirin 81 mg tablet,delayed release 81 mg PO QDAY tab 06/15/17 [History Confirmed 01/08/18] colestipol 1 gram tablet See Rx Instructions PO QAM tab 06/15/17 [History Confirmed 01/08/18] folic acid 1 mg tablet 1 mg PO QDAY 06/15/17 [History Confirmed 01/08/18] gabapentin 300 mg capsule 300 mg PO TID 06/15/17 [History Confirmed 01/08/18] hydrochlorothiazide 25 mg tablet 25 mg PO QDAY tab 06/15/17 [History Confirmed 01/08/18] potassium chloride ER 20 mEq tablet,extended release 20 meq PO QDAY 06/15/17 [History Confirmed 01/08/18] pravastatin 40 mg tablet 40 mg PO QDAY tab 06/15/17 [History Confirmed 01/08/18] tamsulosin 0.4 mg capsule 0.4 mg PO QDAY 06/15/17 [History Confirmed 01/08/18] amlodipine 5 mg tablet 5 mg PO QDAY 06/16/17 [History Confirmed 01/08/18] finasteride 5 mg tablet 5 mg PO QDAY 06/16/17 [History Confirmed 01/08/18] lisinopril 40 mg tablet 40 mg PO QDAY 06/16/17 [History Confirmed 01/08/18] multivitamin tablet 1 tab PO QDAY 06/16/17 [History Confirmed 01/08/18] calcium citrate 250 mg tablet 250 mg PO DAILY tab 01/08/18 [History Confirmed 01/08/18] cholecalciferol (vitamin D3) 5,000 unit capsule 5,000 unit PO DAILY 01/08/18 [History Confirmed 01/08/18] docusate sodium 250 mg capsule 250 mg PO DAILY 01/08/18 [History Confirmed 01/08/18] insulin glargine (U-100) 100 unit/mL (3 mL) subcutaneous pen 12 unit SC DAILY 01/08/18 [History Confirmed 01/08/18] insulin lispro (U-200) 200 unit/mL (3 mL) subcutaneous pen 30 unit SC QACLUNCH 01/08/18 [History Confirmed 01/08/18] [facility] Medical History Hyperlipidemia (Chronic) Atherosclerotic heart disease of [place] coronary artery without angina pectoris (Chronic) Diabetes mellitus type 1, controlled, without complications (Chronic) Sleep apnea (Chronic) Hypertension (Chronic) Diabetes mellitus (Chronic) Dyspnea on exertion (Acute) Family history of hyperlipidemia (Acute) Family history of hypertension (Acute) Headache (Acute) Surgical History History of bilateral inguinal hernia repair (Acute 2007) History of colonoscopy (Acute 2013) History of hemorrhoidectomy (Resolved 2000) History of hernia repair (Resolved 1991) stent replacement for right sided kidney stome (Resolved) Family History Father Diabetes Hypertension Family history of hyperlipidemia Asthma Kidney disease Mother Diabetes Brother Cancer Throat cancer Brother CAD (coronary artery disease) Myocardial infarction, Onset Age: 52 Sister Family history of hyperlipidemia Hypertension Diabetes Other Family history of hypertension Social History Smoking Status: Former smoker how long ago did patient quit smokin alcohol intake: former year quit: 1984 substance use type: does not use caffeine: Yes Type: coffee Number of servings: 2 what type of physical activity do you participate in: none seatbelt use: sometimes do you feel safe at home: Yes HPI HPI HPI: LUIS VALLE, is a 72 M who presents to the office today for small mass on his left lower extremity which she has had for approximately 2-3 years. He has no pain with it is showing only minimal growth. And he cannot recall any trauma ROS General General: Yes weight change and fatigue; no appetite, colon cancer, breast cancer or weakness HEENT HEENT: No difficulty swallowing, eye injury, eye surgery, swollen glands or hoarseness Endo Endocrine: Yes diabetes mellitus; no thyroid disease, thyroid cancer, Hair loss, heat intolerance or cold intolerance Musc Musculoskeletal: Yes back problems and arthritis; no rheumatoid arthritis, gout or joint pain Cardio Cardiovascular: Yes high blood pressure; no murmur, pacemaker, heart disease, atrial fibrillation, heart attack, heart stent, palpitations, shortness of breat with exertion or chest pain Resp Respiratory: Yes shortness of breath, No sleep apnea, Yes cough, Yes COPD, No asthma, Yes emphysema, No wheezing Gastro Gastrointestinal: No abdominal pain, No nausea or vomiting, No diarrhea, Yes constipation, No blood in stool, No acid reflux, Yes hemorrhoids, No ulcers, No gallbladder problem, No black,tarry stools Craig Hematologic: No blood thinners, No blood disorders, No bleeding, Yes anemia, No blood clots Neuro Neurologic: No weakness Exam Cardio Heart Sounds: no murmurs Extrem Other: Small 2-1/2-3 cm subcutaneous soft mass in the left lower extremity. It does not have a typical appearance of something that is malignant it does not feel firm enough the overlying skin is entirely normal on it. It does appear to be more likely lipomatous in nature and probably can be easily amended with simple excision in the office Assessment AND Plan Problems 1. Lesion of subcutaneous tissue L98.9 Plan Plan is to excise this in the office. Wrist benefits have been reviewed and the patient agrees to proceed peer patient will be off their aspirin for 5 days prior to the procedure. Coding Level of Care Code Off vis,new,level 2 Diagnoses Lesion of subcutaneous tissue L98.9 01/12/18 0953 <Electronically signed by Nitesh Tubbs MD> Date Nitesh Tubbs MD [facility] Signature: Date (if applicable) CC: Fina Spicer NP HEMOGLOBIN A1C Collected: 01/04/2018 Status: F Source: [place] 9:03 AM [facility] REPOSITORY TYPE CODE TESTS RESULT OUT OF RANGE REFERENCE UNITS LAB L501.9985 4.2-6.3 % High HGB A1C 8.5 Performed By: #### L501.9985 #### [facility] [place], [address] COMPREHENSIVE METABOLIC Collected: 01/04/2018 Status: F Source: [place] [facility] 9:03 AM [facility] REPOSITORY TYPE CODE TESTS RESULT OUT OF RANGE REFERENCE UNITS LAB L501.0100 74-106 mg/dL Low GLU 69 Result Comment: Please note revised GLUCOSE reference range effective 2017. LAB L501.1000 7-18 mg/dL High BUN 36 LAB L501.1100 0.70-1.30 mg/dL High CREAT,SERUM 1.89 Result Comment: The validity of the calculated GFR AND GFRAA in patients over 70 years has not been determined. Clinical correlation is essential. LAB L501.1110 >60 mL/min Low EST GFR 37 Result Comment: Non- GFR Calc LAB L501.1115 >60 mL/min Low EST GFR - AA 45 Result Comment: GFR Calc LAB L501.1300 10-20 RATIO Normal BUN/CRE 19.0 LAB L501.1500 6.4-8.2 g/dL T Normal PROT 7.1 LAB L501.1800 3.2-5.0 g/dL Normal ALB 3.2 LAB L501.1950 2.2-4.2 g/dL Normal GLOB 3.9 LAB L501.2000 0.9-2.4 RATIO Low A/G 0.8 LAB L501.2200 8.5-10.1 mg/dL CA Normal 8.6 LAB L501.4100 15-37 U/L Normal AST 18 LAB L501.4305 45-117 U/L Normal ALK P 103 LAB L501.4405 16-61 U/L Normal ALT 26 LAB L501.4600 0.20-1.00 mg/dL T Normal BILI 0.40 LAB L501.5300 136-145 mmol/L NA Normal 144 LAB L501.5600 3.5-5.1 mmol/L K Normal 3.7 LAB L501.5900 98-107 mmol/L CL Normal 104 LAB L501.6100 21.0-32.0 mmol/L Normal CO2 29.0 LAB L501.6200 5-15 Normal GAP 11 Performed By: #### L500.4050, L501.9520 #### [facility] [address] [place], [address] THYROID STIM HORMONE Collected: 01/04/2018 Status: F Source: [place] (TSH) 9:03 AM [facility] REPOSITORY TYPE CODE TESTS RESULT OUT OF RANGE REFERENCE UNITS LAB L501.9520 0.358-3.74 uIU/mL Normal TSH 3.19 Performed By: #### L500.4050, L501.9520 #### [facility] [address] [place], [address] PSA,TOTAL - ANNUAL Collected: 11/23/2017 Status: F Source: [place] SCREEN 8:26 AM [facility] REPOSITORY TYPE CODE TESTS RESULT OUT OF RANGE REFERENCE UNITS LAB L501.9910 0.00-4.00 ng/mL Normal PSA,TOT 3.03 SCREEN Result Comment: This test was performed using the TPSA assay method for the [employer] chemistry system. Values obtained with different assay methods cannot be used interchangably. When changing PSA assays in the course of monitoring a patient, additional sequential testing should be carried out to confirm baseline values. Performed By: #### L501.9910 #### [facility] [address] [place], [address] Observed: 11/23/2017 Status: F Source: [place] CULTURE, URINE 8:26 AM [facility] Urine Culture Culture exhibits no growth. Performed By: #### M100.0650 #### [facility] [address] [place], [address] COMPREHENSIVE METABOLIC Collected: 09/11/2017 Status: F Source: [place] PROFIL 9:44 AM [facility] REPOSITORY TYPE CODE TESTS RESULT OUT OF RANGE REFERENCE UNITS LAB L501.0100 74-106 mg/dL High GLU 185 Result Comment: Fasting Glucose result greater than or equal to 126 mg/dL suggests DIABETES MELLITUS per A.D.A. criteria. Please note revised GLUCOSE reference range effective 2017. LAB L501.1000 7-18 mg/dL High BUN 42 LAB L501.1100 0.70-1.30 mg/dL High CREAT,SERUM 1.92 Result Comment: The validity of the calculated GFR AND GFRAA in patients over 70 years has not been determined. Clinical correlation is essential. LAB L501.1110 >60 mL/min Low EST GFR 37 Result Comment: Non- GFR Calc LAB L501.1115 >60 mL/min Low EST GFR - AA 44 Result Comment: GFR Calc LAB L501.1300 10-20 RATIO High BUN/CRE 21.9 LAB L501.1500 6.4-8.2 g/dL T Normal PROT 7.0 LAB L501.1800 3.2-5.0 g/dL Normal ALB 3.4 LAB L501.1950 2.2-4.2 g/dL Normal GLOB 3.6 LAB L501.2000 0.9-2.4 RATIO Normal A/G 0.9 LAB L501.2200 8.5-10.1 mg/dL CA Normal 8.7 LAB L501.4100 15-37 U/L Normal AST 21 LAB L501.4305 45-117 U/L Normal ALK P 94 LAB L501.4405 16-61 U/L Normal ALT 22 LAB L501.4600 0.20-1.00 mg/dL T Normal BILI 0.40 LAB L501.5300 136-145 mmol/L NA Normal 138 LAB L501.5600 3.5-5.1 mmol/L K Normal 3.8 LAB L501.5900 98-107 mmol/L CL Normal 102 LAB L501.6100 21.0-32.0 mmol/L Normal CO2 25.0 LAB L501.6200 5-15 Normal GAP 11 Performed By: #### L500.4050 #### [facility] [address] [place] [place], [address] CBC W/DIFF, AUTOMATED Collected: 09/11/2017 Status: F Source: [place] 9:44 AM [facility] REPOSITORY TYPE CODE TESTS RESULT OUT OF RANGE REFERENCE UNITS LAB L100.1000 4.4-11.0 K/mm3 Normal WBC 4.4 LAB L100.1200 4.6-6.2 M/mm3 Low RBC 3.95 LAB L100.1300 13.0-16.5 g/dl Low HGB 11.6 LAB L100.1400 40-54 % Low HCT 35.2 LAB L100.1500 80-94 fL Normal MCV 89.1 LAB L100.1600 27.0-32.0 pg Normal MCH 29.4 LAB L100.1700 32-36 g/gl Normal MCHC 33.0 LAB L100.1810 11.6-14.6 % Normal RDW CV 12.4 LAB L100.1820 35.1-43.9 fl Normal RDW SD 40.2 LAB L100.1900 150-450 K/mm3 Normal PLT 348 LAB L100.2000 6.2-12.0 fl Normal MPV 10.2 LAB L100.2100 47-70 % Normal NEUT% 60.6 LAB L100.2200 19-41 % Normal LY% 24.9 LAB L100.2300 0-10 % High MONO% 12.6 LAB L100.2400 0-5 % Normal EO% 1.4 LAB L100.2500 0-1 % Normal BASO% 0.5 LAB L100.2550 0.0-0.9 % Normal IM GRAN % 0.000 Result Comment: IG% - Immature Granulocytes (promyelocytes, myelocytes and metamyelocytes) > 1% indicates that a LEFT SHIFT is Present. LAB L100.2620 2.0-7.7 X10 3/uL Normal Absolute Neut 2.7 LAB L100.2720 0.83-4.51 X10 3/ul Normal Absolute Lymph 1.09 Performed By: #### L100.0100 #### [facility] [address] [place], [address] CBC W/DIFF, AUTOMATED Collected: 09/10/2017 Status: F Source: [place] 10:05 AM [facility] REPOSITORY TYPE CODE TESTS RESULT OUT OF RANGE REFERENCE UNITS LAB L100.1000 4.4-11.0 K/mm3 Normal WBC 5.1 LAB L100.1200 4.6-6.2 M/mm3 Low RBC 3.84 LAB L100.1300 13.0-16.5 g/dl Low HGB 11.7 LAB L100.1400 40-54 % Low HCT 34.4 LAB L100.1500 80-94 fL Normal MCV 89.6 LAB L100.1600 27.0-32.0 pg Normal MCH 30.5 LAB L100.1700 32-36 g/gl Normal MCHC 34.0 LAB L100.1810 11.6-14.6 % Normal RDW CV 12.2 LAB L100.1820 35.1-43.9 fl Normal RDW SD 39.4 LAB L100.1900 150-450 K/mm3 Normal PLT 376 LAB L100.2000 6.2-12.0 fl Normal MPV 10.5 LAB L100.2100 47-70 % Normal NEUT% 65.7 LAB L100.2200 19-41 % Normal LY% 21.6 LAB L100.2300 0-10 % High MONO% 10.5 LAB L100.2400 0-5 % Normal EO% 1.4 LAB L100.2500 0-1 % Normal BASO% 0.6 LAB L100.2550 0.0-0.9 % Normal IM GRAN % 0.200 Result Comment: IG% - Immature Granulocytes (promyelocytes, myelocytes and metamyelocytes) > 1% indicates that a LEFT SHIFT is Present. LAB L100.2620 2.0-7.7 X10 3/uL Normal Absolute Neut 3.4 LAB L100.2720 0.83-4.51 X10 3/ul Normal Absolute Lymph 1.11 Performed By: #### L100.0100 #### [facility] [address] [place], [address] COMPREHENSIVE METABOLIC Collected: 09/10/2017 Status: F Source: [facility] 10:05 AM [facility] REPOSITORY TYPE CODE TESTS RESULT OUT OF RANGE REFERENCE UNITS LAB L501.0100 74-106 mg/dL High GLU 180 Result Comment: Fasting Glucose result greater than or equal to 126 mg/dL suggests DIABETES MELLITUS per A.D.A. criteria. Please note revised GLUCOSE reference range effective 2017. LAB L501.1000 7-18 mg/dL High BUN 43 LAB L501.1100 0.70-1.30 mg/dL High CREAT,SERUM 1.74 Result Comment: The validity of the calculated GFR AND GFRAA in patients over 70 years has not been determined. Clinical correlation is essential. LAB L501.1110 >60 mL/min Low EST GFR 41 Result Comment: Non- GFR Calc LAB L501.1115 >60 mL/min Low EST GFR - AA 50 Result Comment: GFR Calc LAB L501.1300 10-20 RATIO High BUN/CRE 24.7 LAB L501.1500 6.4-8.2 g/dL T Normal PROT 7.1 LAB L501.1800 3.2-5.0 g/dL Normal ALB 3.3 LAB L501.1950 2.2-4.2 g/dL Normal GLOB 3.8 LAB L501.2000 0.9-2.4 RATIO Normal A/G 0.9 LAB L501.2200 8.5-10.1 mg/dL CA Normal 8.9 LAB L501.4100 15-37 U/L Normal AST 20 LAB L501.4305 45-117 U/L Normal ALK P 95 LAB L501.4405 16-61 U/L Normal ALT 22 LAB L501.4600 0.20-1.00 mg/dL T Normal BILI 0.40 LAB L501.5300 136-145 mmol/L NA Normal 139 LAB L501.5600 3.5-5.1 mmol/L K Normal 4.1 LAB L501.5900 98-107 mmol/L CL Normal 104 LAB L501.6100 21.0-32.0 mmol/L Normal CO2 29.0 LAB L501.6200 5-15 Normal GAP 6 Performed By: #### L500.4050 #### [facility] [address] [place], [place], [address] HEMOGLOBIN A1C Collected: 08/05/2017 Status: F Source: [place] 8:21 AM [facility] REPOSITORY TYPE CODE TESTS RESULT OUT OF RANGE REFERENCE UNITS LAB L501.9985 4.2-6.3 % High HGB A1C 9.4 Performed By: #### L501.9985 #### [facility] [address] [place], [address] COMPREHENSIVE METABOLIC Collected: 08/05/2017 Status: F Source: [facility] 8:21 AM [facility] REPOSITORY TYPE CODE TESTS RESULT OUT OF RANGE REFERENCE UNITS LAB L501.0100 74-106 mg/dL Low GLU 55 Result Comment: Please note revised GLUCOSE reference range effective 2017. LAB L501.1000 7-18 mg/dL High BUN 31 LAB L501.1100 0.70-1.30 mg/dL High CREAT,SERUM 1.46 Result Comment: The validity of the calculated GFR AND GFRAA in patients over 70 years has not been determined. Clinical correlation is essential. LAB L501.1110 >60 mL/min Low EST GFR 50 Result Comment: Non- GFR Calc LAB L501.1115 >60 mL/min Normal EST GFR - AA 61 Result Comment: GFR Calc LAB L501.1300 10-20 RATIO High BUN/CRE 21.2 LAB L501.1500 6.4-8.2 g/dL T Normal PROT 6.7 LAB L501.1800 3.2-5.0 g/dL Low ALB 3.1 LAB L501.1950 2.2-4.2 g/dL Normal GLOB 3.6 LAB L501.2000 0.9-2.4 RATIO Normal A/G 0.9 LAB L501.2200 8.5-10.1 mg/dL Low CA 8.3 LAB L501.4100 15-37 U/L Normal AST 20 LAB L501.4305 45-117 U/L Normal ALK P 103 LAB L501.4405 16-61 U/L Normal ALT 29 LAB L501.4600 0.20-1.00 mg/dL T Normal BILI 0.20 LAB L501.5300 136-145 mmol/L NA Normal 143 LAB L501.5600 3.5-5.1 mmol/L K Normal 3.6 LAB L501.5900 98-107 mmol/L CL Normal 106 LAB L501.6100 21.0-32.0 mmol/L Normal CO2 32.0 LAB L501.6200 5-15 Normal GAP 5 Performed By: #### L500.4050, L500.4100, L501.9520 #### [facility] [address] [place], [address] LIPID PROFILE Collected: 08/05/2017 Status: F Source: [place] 8:21 AM [facility] REPOSITORY TYPE CODE TESTS RESULT OUT OF RANGE REFERENCE UNITS LAB L501.4900 200 mg/dL Normal CHOL 170 Result Comment: <200 mg/dL Desirable 200-240 mg/dL Borderline >240 mg/dL High Risk LAB L501.5000 mg/dL Normal TRIG 114 Result Comment: The drugs N-Acetylcysteine and Metamizole may falsely depress this assay. Serum Triglycerides Reference Interval Normal <150 mg/dL Borderline high 150 - 199 mg/dL High 200 - 499 mg/dL Very High > or = 500 mg/dL LAB L501.6400 mg/dL Normal HDL 41 Result Comment: The drugs N-Acetylcysteine and Metamizole may falsely depress this assay. Reference Range HDL <40 mg/dL Low HDL Cholesterol HDL >or= 60 mg/dL High HDL Cholesterol LAB L501.6500 0-130 mg/dL Normal LDL 106 LAB L501.6600 5-40 mg/dL Normal VLDL 23 Performed By: #### L500.4050, L500.4100, L501.9520 #### [facility] [address] [place], [address] THYROID STIM HORMONE Collected: 08/05/2017 Status: F Source: KELLIE (TSH) 8:21 AM [facility] REPOSITORY TYPE CODE TESTS RESULT OUT OF RANGE REFERENCE UNITS LAB L501.9520 0.358-3.74 uIU/mL Normal TSH 3.18 Performed By: #### L500.4050, L500.4100, L501.9520 #### [facility] [address] [place], [address] CARDIOLOGY VISIT Observed: 06/16/2017 Status: F Source: KELLIE REPORT 11:03 AM [facility] REPOSITORY [facility] [address] [place] [address] OFFICE VISIT Date of Service: 06/16/17 MR#: [id number] Acct: [id number] Name: LUIS VALLE Rep #: [id number] : 1945 Provider: RENATO Olvera Age/Sex: 71/M Location: [place] Status: Signed HPI HPI Details: LUIS VALLE, is a 71 M who presents to the office today for a cardiovascular outpatient follow-up. Patient is history of mild coronary artery disease, hypertension, hyperlipidemia, and diabetes. Pt. denies chest, arm, jaw, or neck discomfort. His exercise tolerance is stable. Pt. denies symptoms of CHF, palpitations, lightheadedness, dizziness, near syncope, or syncopal episodes. Pt. denies edema or claudication issues. Pt. denies orthopnea, PND, fever, chills, blood in urine, blood in stool, myalgia, or unexplainable fatigue. 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 Accompanied by: None Is patient in pain?: No Allergies No Known Allergies Allergy (Unverified 06/15/17 08:12) Medications aspirin 81 mg tablet,delayed release 81 mg PO QDAY tab 06/15/17 [History Confirmed 06/15/17] colestipol 1 gram tablet See Label Instructions PO QAM tab 06/15/17 [History Confirmed 06/15/17] folic acid 1 mg tablet 1 mg PO QDAY 06/15/17 [History Confirmed 06/15/17] gabapentin 300 mg capsule 300 mg PO TID 06/15/17 [History Confirmed 06/15/17] hydrochlorothiazide 25 mg tablet 25 mg PO QDAY tab 06/15/17 [History Confirmed 06/15/17] potassium chloride ER 20 mEq tablet,extended release 20 meq PO QDAY 06/15/17 [History Confirmed 06/15/17] pravastatin 40 mg tablet 40 mg PO QDAY tab 06/15/17 [History Confirmed 06/15/17] tamsulosin 0.4 mg capsule 0.4 mg PO QDAY 06/15/17 [History Confirmed 06/15/17] amlodipine 5 mg tablet 5 mg PO QDAY 06/16/17 [History Confirmed 06/16/17] finasteride 5 mg tablet 5 mg PO QDAY 06/16/17 [History Confirmed 06/16/17] lisinopril 40 mg tablet 40 mg PO QDAY 06/16/17 [History Confirmed 06/16/17] multivitamin tablet 1 tab PO QDAY 06/16/17 [History Confirmed 06/16/17] Ejection fraction %: 60 to 64 PFSH Medical History Hyperlipidemia (Chronic) Atherosclerotic heart disease of [place] coronary artery without angina pectoris (Chronic) Diabetes mellitus type 1, controlled, without complications (Chronic) Sleep apnea (Chronic) Hypertension (Chronic) Diabetes mellitus (Chronic) Dyspnea on exertion (Acute) Family history of hyperlipidemia (Acute) Family history of hypertension (Acute) Headache (Acute) Surgical History History of hemorrhoidectomy (Resolved) History of hernia repair (Resolved) stent replacement for right sided kidney stome (Resolved) Family History Father Diabetes Hypertension Family history of hyperlipidemia Asthma Kidney disease Mother Diabetes Brother Cancer Throat cancer Brother CAD (coronary artery disease) Myocardial infarction, Onset Age: 52 Sister Family history of hyperlipidemia Hypertension Diabetes Other Family history of hypertension Social History Smoking Status: Former smoker how long ago did patient quit smokin alcohol intake: former year quit: 1984 substance use type: does not use caffeine: Yes Type: coffee Number of servings: 2 what type of physical activity do you participate in: none seatbelt use: sometimes do you feel safe at home: Yes ROS Const Const: Negative for fatigue, weakness, body ache, fever(s) or chills ENT ENT: Negative for dizziness Cardio Chest Pain: No Palpitations: No Edema: None Muscle aches with walking: None Resp Respiratory: Negative for SOB with activity, SOB at rest, SOB orthopnea\SOB lying down or paroxysmal nocturnal dyspnea GI GI: Negative nausea, black,tarry stools, bright, red blood in stools or vomiting blood/hematemesis : Negative for hematuria or frequent nighttime urination/ nocturia Musc Musc: Negative for muscle aches/ myalgia Neuro Neuro: Negative for weakness, dizziness, lightheadedness, near syncope, syncope or orthostatic symptoms Endo Endo: Negative for fatigue Cardiology Exam Const Appearance: cooperative, healthy appearing, comfortable and no acute distress Orientation: alert, awake and oriented x3 Head Head: normal to inspection Mouth: oral mucosae normal Neck Neck: no JVD and normal visual inspection Carotids: normal carotid upstroke Chest Chest inspection: normal inspection of the chest and normal respiratory effort Auscultation: Bilateral: Clear to Auscultation Cardio Rate: regular rate Rhythm: regular rhythm Heart sounds: S1 normal and S2 normal; negative rub or gallop GI GI: normal to inspection Neuro General: alert, awake, oriented x3 and CN's II-XI intact bilaterally Skin Skin: no rashes or lesions noted Extremities Pulses: Normal: Right Posterior Tibial Pulse, Left Posterior Tibial Pulse, Right Radial Pulse, Left Radial Pulse Lower Extremity Edema: None: Bilateral Psych Psychological: normal affect Supplemental Info Nuclear stress test from January 2011 was negative for stress- induced myocardial ischemia. GIANLUCA from December 2009 showed an estimated ejection fraction of 60%, no thrombus detected in left atrial appendage, trivial mitral valve insufficiency, trivial tricuspid valve insufficiency, negative bubble contrast study for right to left interatrial shunt, mild atherosclerosis of the aortic arch, mild atherosclerosis of descending aorta, no evidence of infective endocarditis, and echolucency compatible with pleural effusion and/or ascites. Heart catheterization from March 2009 showed mild calcified but angiographically normal left main, proximal mid calcification with minimal luminal irregularities of the LAD, proximal mild calcification with 10-25% stenosis of LCx, proximal to mid mild calcification with 0-10% luminal irregularities of RCA. Ejection fraction was noted to be 65%. Assessment AND Plan 1. Atherosclerosis of [place] coronary artery of [place] heart without angina pectoris I25.10 Carmencita - SHAMAR Rosado Patient's most recent stress test from January 2011 was negative for stress-induced myocardial ischemia. His most recent heart catheterization was in March 2009 and showed nonobstructive disease and a preserved ejection fraction. Patient denies any chest pain, arm pain, jaw pain, neck pain, shortness of breath, or fatigue suggestive of angina at this time. We will continue to monitor this. We will not make any medication regimen changes and will continue risk factor modification. 2. Essential hypertension I10 SHAMAR Villegas After last office visit patient was started on hydrochlorothiazide both for elevated blood pressure and lower extremity swelling. His blood pressure is well-controlled today in office and his swelling is resolved. We will continue to monitor his blood pressure. We will not make any medication regimen changes. 3. Mixed hyperlipidemia E78.2 Carmencita - SHAMAR Rosado This is managed by primary care physician. Patient is unsure the last time his lipid panel was drawn. He states getting blood work frequently and has not been told that he needed to adjust his cholesterol medicine. He will continue with current cholesterol- lowering medications. 4. 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 His most recent hemoglobin A1c from April 2017 was 9.1%. Patient acknowledges need for blood glucose control in conjunction with his cardiovascular disease. He will continue to follow-up with primary care provider for this. Plan Detail Additional Comments - ORA RosadoC Discussed the above patient with Dr. Toney in Dr. Schumacher's absence, he agrees with the plan of care. Thank you for allowing us to participate in the patients plan of care, if you have any questions please do not hesitate to call. This note was generated using a voice recognition system and there may be incorrect words, spelling or punctuation that were not noted when reviewing the office note prior to saving. Follow Up 10 Months (PFM) Coding Level of Care Code Off vis,est,level 3 Diagnoses Atherosclerosis of [place] coronary artery of [place] heart without angina pectoris I25.10 [place] vs. transplanted heart: [place] heart Essential hypertension I10 Hypertension type: essential hypertension Mixed hyperlipidemia E78.2 Hyperlipidemia type: mixed hyperlipidemia Diabetes mellitus E11.9 Coding Level of Care Code Off vis,est,level 3 Diagnoses Atherosclerosis of [place] coronary artery of [place] heart without angina pectoris I25.10 [place] vs. transplanted heart: [place] heart Essential hypertension I10 Hypertension type: essential hypertension Mixed hyperlipidemia E78.2 Hyperlipidemia type: mixed hyperlipidemia Diabetes mellitus E11.9 06/16/17 1056 <Electronically signed by Hamzah PAYANC> Date Hamzah PAYANC 06/16/17 1103<Electronically signed by Rian Toney MD> Cosigner Signature: Date (if applicable) Rian Toney MD CC: Fina Spicer NP ALLERGIES ALLERGIES DATE TYPE / CODE NAME / CODE REACTION SEVERITY SOURCE 05/05/2018 Drug No Known Unknown [facility] Allergy/4160 Allergies/F00 [facility] [address]57(SNOMED 4134085(RXNOR Repository CT) M) ENCOUNTERS ENCOUNTERS ADMIT/DISCHARGE ACCOUNT ADMITTING ENCOUNTER LOCATION SOURCE NUMBER CLASS 05/05/2018 [id number] [facility] [place] [facility] ing[facility]HPRAD Repository 05/05/2018/ [id number] Ambulatory BMSBuilding:B [place] 9 5 [place].[facility] Repository 05/03/2018 [id number] Ambulatory Building:[facility] Practices Repository 04/08/2018 [id number] Amb[facility] [place] 7 [facility] ing:MTLAB Repository 03/08/2018 [id number] [place] [facility] ing:MTLAB Repository 02/08/2018 [id number] [place] [facility] ing:US Repository 01/26/2018/ [id number] Ambulatory BMSBuilding:B [place] 8 3 [facility] Repository 01/16/2018/ [id number] Ambulatory BMSBuilding:B [place] 8 5 MS.[facility] Repository 01/16/2018 [id number] Ambulatory [place] [facility] ing:LABSPEC Repository 01/08/2018/ [id number] Ambulatory BMSBuilding:B [place] 8 3 [place].[facility] Hospital Repository 01/04/2018 [id number] Ambulatory [place] [facility] ing:MTLAB Repository 11/23/2017 [id number] Amb[facility] [place] 0 [facility] ing:MTLAB Repository 09/11/2017 [id number] Amb[place] [facility] ing:MTLAB Repository 09/10/2017 [id number] [place] [facility] ing:MTLAB Repository 08/05/2017 [id number] Ambulatory [place] [facility] ing:MTLAB Repository 06/16/2017/ [id number] Ambulatory BMSBuilding:B [place] 8 0 [facility] Repository 06/15/2017 [id number] Ambulatory BMSBuilding:B [place] 8 [facility] Repository PAYERS PAYERS ENCOUNTER GUARANTOR PAYER SUBSCRIBER SOURCE 05/05/2018 LUIS KOWALSKI A [place] [id number] Insurance:MEDICARE STEVENSDOB: Community DORNOCH PART A BPolicy Number: [id number], [place] [id number] Repository [address]Jus: (330) Date:2018-05-05 [phone] () 05/05/2018 Secondary LUIS A [place] Insurance:AMERICOPolic STEVENSDOB: Community y Number: [id number] Hospital [id number] Repository Date:4040-60-15GA [address] [place] [address]CZ: 05/05/2018 Tertiary NOT GIVENUNK [place] Insurance:SELF PAY [facility] Number: Effective Repository Date:2018-05-05 05/05/2018 LUIS A Primary LUIS A Kellie [id number] Insurance:MEDICARE STEVENSDOB: Community DORNOCH PART A BPolicy Number: [id number], [place] [id number] Repository [address]Hfa: (330) Date:2018-05-05 [phone] () 05/05/2018 Secondary LUIS A [place] Insurance:AMERICOPolic STEVENSDOB: Community y Number: [id number] Hospital [id number] Repository Date:9552-37-12[address] [address]UM: 05/05/2018 Tertiary NOT GIVENUNK [place] Insurance:SELF PAY [facility] Number: Effective Repository Date:2018-05-05 05/03/2018 Luis A Primary Luis A OHIP Practices StevensDOB: Insurance:MedicarePoli StevensDOB: Repository [id number] cy Number: [id number] [place] ZY05Zbykluaou [address] [place] [address], Date:7264-56-16[facility]ydpMedical [facility] [address]Dqf: Name:[facility] Alok [address]Kpg: (330) 480561BffqgcpiSHOREHAM, [place] [phone] (HP) (WQ) [address]OL: 05/03/2018 Secondary Luis A OHIP Practices Insurance:Emery/mcar StevensDOB: Repository e supplementPolicy [id number] Number: 6 [facility] [id number] [place], [place] Date:2200-56-34Wnos 21242Nkr: (326) Name:[facility] [phone] () [address] [place] [address] [id number]: 04/08/2018 LUIS A Primary LUIS A [place] [id number] Insurance:MEDICARE STEVENSDOB: Community DORNOCH PART A BPolicy Number: [id number], [place] [id number] Repository [address]Ehj: (330) Date:2018-04-08 [phone] () 04/08/2018 Secondary LUIS A [place] Insurance:GPMPolicy STEVENSDOB: Community Number: [id number] Hospital [id number] Repository Date:1021-35-94[address], [place] [address]BT: 04/08/2018 Tertiary NOT GIVENUNK [place] Insurance:SELF PAY [facility] Number: Effective Repository Date:2018-04-08 03/08/2018 LUIS A Primary LUSI A Kell[place] [id number] Insurance:MEDICARE STEVENSDOB: [facility] DORNOCH PART A BPolicy Number: [id number], [place] [id number] Repository [address]Rtw: (330) Date:2018-03-08 [phone] () 03/08/2018 Secondary LUIS A [place] Insurance:GPMPolicy STEVENSDOB: Community Number: [id number] [facility] [id number] Repository Date:4680-68-85[address], [place] [address]VO: 03/08/2018 Tertiary NOT GIVENUNK [place] Insurance:SELF PAY [facility] Number: Effective Repository Date:2018-03-08 02/08/2018 LUIS A Primary LUIS A [place] [id number] Insurance:MEDICARE STEVENSDOB: Community DORNOCH PART A BPolicy Number: [id number], [place] [id number] Repository [address]Oql: (330) Date:2017-11-18 [phone] () 02/08/2018 Secondary LUIS A [place] Insurance:GPMPolicy STEVENSDOB: Community Number: [id number] Hospital [id number] Repository Date:8570-71-04[address] [address]UQ: 02/08/2018 Tertiary NOT GIVENUNK [place] Insurance:SELF PAY [facility] Number: Effective Repository Date:2017-11-18 01/26/2018 LUIS A Primary LUIS A [place] [id number] Insurance:MEDICARE STEVENSDOB: Community DORNOCH PART A BPolicy Number: [id number], [place] [id number] Repository [address]Cze: 330) Date:2018-01-16 [phone] () 01/26/2018 Secondary LUIS A [place] Insurance:AMERICOPolic STEVENSDOB: Community y Number: [id number] Hospital [id number] Repository Date:3860-66-75EB [address] [place] [address]WX: 01/26/2018 Tertiary NOT GIVENUNK [place] Insurance:SELF PAY [facility] Number: Effective Repository Date:2018-01-26 01/16/2018 LUIS A Primary LUIS A [place] [id number] Insurance:MEDICARE STEVENSDOB: Community DOR[place] PART A BPolicy Number: [id number], [place] [id number] Repository [address]Fxc: (330) Date:2018-01-08 [phone] () 01/16/2018 Secondary LUIS A [place] Insurance:AMERICOPolic STEVENSDOB: Community y Number: [id number] Hospital [id number] Repository Date:0888-65-21LT [address] [place] [address]CS: 01/16/2018 Tertiary NOT GIVENUNK [place] Insurance:SELF PAY [facility] Number: Effective Repository Date:2018-01-16 01/16/2018 LUIS A Primary LUIS A [place] [id number] Insurance:MEDICARE STEVENSDOB: Community DOR[place] PART A BPolicy Number: [id number], [place] [id number] Repository [address]Gux: (330) Date:2018-01-16 [phone] () 01/16/2018 Secondary LUIS A [place] Insurance:AMERICOPolic STEVENSDOB: Community y Number: [id number] Hospital [id number] Repository Date:6562-55-18QJ [address] [place] [address]FT: 01/16/2018 Tertiary NOT GIVENUNK [place] Insurance:SELF PAY [facility] Number: Effective Repository Date:2018-01-16 01/08/2018 LUIS A Primary LUIS A Kellie [id number] Insurance:MEDICARE STEVENSDOB: Community DOR[place] PART A BPolicy Number: [id number], [place] [id number] Repository [address]Vyk: (330) Date:2018-01-04 [phone] () 01/08/2018 Secondary LUIS A [place] Insurance:AMERICOPolic STEVENSDOB: Community y Number: [id number] Hospital [id number] Repository Date:6374-87-63HR [address] [place] [address] 87[address]GB: 01/08/2018 Tertiary NOT GIVENUNK [place] Insurance:SELF PAY [facility] Number: Effective Repository Date:2018-01-08 01/04/2018 LUIS A Primary LUIS A [place] [id number] Insurance:MEDICARE STEVENSDOB: Community DOR[place] PART A BPolicy Number: [id number], [place] [id number] Repository [address]Fxn: (330) Date:2018-01-04 [phone] () 01/04/2018 Secondary LUIS A [place] Insurance:AMERICOPolic STEVENSDOB: Community y Number: [id number] Hospital [id number] Repository Date:4589-38-83[address], [place] [address]QX: 01/04/2018 Tertiary NOT GIVENUNK [place] Insurance:SELF PAY [facility] Number: Effective Repository Date:2018-01-04 11/23/2017 LUIS A Primary LUIS A [place] [id number] Insurance:MEDICARE STEVENSDOB: Community DOR[place] PART A BPolicy Number: [id number], [place] [id number] Repository [address]Rzt: (012) Date:2017-11-06 [phone] () 11/23/2017 Secondary LUIS A [place] Insurance:GPMPolicy STEVENSDOB: Community Number: [id number] Hospital [id number] Repository Date:4642-66-24[address] [address]QA: 11/23/2017 Tertiary NOT GIVENUNK [place] Insurance:SELF PAY [facility] Number: Effective Repository Date:2017-11-06 09/11/2017 LUIS A Primary LUIS A [place] [id number] Insurance:MEDICARE STEVENSDOB: Community DOR[place] PART A olicy Number: [id number], [place] [id number] Repository [address]Zyz: (330) Date:2017-09-11 [phone] () 09/11/2017 Secondary LUIS A [place] Insurance:GPMPolicy STEVENSDOB: Community Number: [id number] Hospital [id number] Repository Date:3138-49-32[address] [address]CM: 09/11/2017 Tertiary NOT GIVENUNK [place] Insurance:SELF PAY [facility] Number: Effective Repository Date:2017-09-11 09/10/2017 LUIS A Primary LUIS A Kell[place] [id number] Insurance:MEDICARE STEVENSDOB: Community D[place] PART A BPolicy Number: [id number], [place] [id number] Repository [address]Ibi: (330) Date:2017-09-10 [phone] () 09/10/2017 Secondary LUIS A [place] Insurance:GPMPolicy STEVENSDOB: Community Number: [id number] Hospital [id number] Repository Date:3039-13-64[address] [place] [address]TI: 09/10/2017 Tertiary NOT GIVENUNK [place] Insurance:SELF PAY [facility] Number: Effective Repository Date:2017-09-10 08/05/2017 LUIS A Primary LUIS A [place] [id number] Insurance:MEDICARE STEVENSDOB: Community D[place] PART A BPolicy Number: [id number], [place] [id number] Repository [address]Ngf: (330) Date:2017-08-05 [phone] () 08/05/2017 Secondary LUIS A [place] Insurance:GPMPolicy STEVENSDOB: Community Number: [id number] Hospital [id number] Repository Date:7749-44-43QK [address], [place] [address]LV: 08/05/2017 Tertiary NOT GIVENUNK [place] Insurance:SELF PAY [facility] Number: Effective Repository Date:2017-08-05 06/16/2017 LUIS A Primary LUIS A [place] [id number] Insurance:MEDICARE STEVENSDOB: Community DOR[place] PART A BPolicy Number: [id number], [place] [id number] Repository [address]Jsh: (330) Date:2017-05-11 [phone] () 06/16/2017 Secondary LUIS A [place] Insurance:GPMPolicy STEVENSDOB: Community Number: [id number] Hospital [id number] Repository Date:2407-67-31[address], [place] [address]LM: 06/16/2017 Tertiary NOT GIVENUNK [place] Insurance:SELF PAY [facility] Number: Effective Repository Date:2017-05-11 06/15/2017 Luis A Primary Luis Hopkins [id number] Insurance:MEDICARE [place]: [facility] PART A BPolicy Number: [id number] [id number] Repository [address]Haj: (330) Date:2017-03-25 [phone] (HP) 06/15/2017 Secondary Luis [place] [facility] Number: [id number] Hospital [id number] Repository Date:8731-50-98KS [address], [place] [address]HC: 06/15/2017 Tertiary NOT GIVENJAY [place] Insurance:SELF PAY [facility] Number: Effective Repository Date:2017-03-25
== END ==
PROVIDERS: Family Provider Nurse Practitioner; PCP Nurse Practitioner; Referring Provider Physician Assistant; Visit Provider Physician Assistant
DX: R05 Cough (principal)
CPT/HCPCS: 71046

== ENCOUNTER → 2018-06-16 07:16 | Outpatient (CLI) | payer MEDICARE, OTHER, SELFPAY ==
[2018-05-17 08:30] VITALS: BMI 25.8
[2018-06-16 10:20] LABS: Hematocrit 37.6 % (40-54); Hemoglobin 12.1 g/dl (13.0-16.5); Mean Corp Hgb Conc 32.2 g/gl (32-36); Mean Corpuscular Volume 93.1 fL (80-94); Mean Platelet Vol. 10.5 fl (6.2-12.0); Platelet Count 351 K/mm3 (150-450); RBC Distribution Width SD 43.5 fl (35.1-43.9); Red Blood Count 4.04 M/mm3 (4.6-6.2); White Blood Count 7.2 K/mm3 (4.4-11.0)
[2018-06-16 10:24] LABS: Scan Indicated on CBC? Y/N NO
[2018-06-16 10:44] LABS: Albumin, Serum 3.2 g/dL (3.2-5.0); BUN 41 mg/dL (7-18); BUN/Creat Ratio 22.5 RATIO (10-20); Calcium,Total 8.4 mg/dL (8.5-10.1); Chloride 104 mmol/L (98-107); Creatinine, Serum 1.82 mg/dL (0.70-1.30); EST Glomerular Filtration Rate 39 mL/min (>60); Est Glom Filt Rate - Afr Amer 47 mL/min (>60); Glucose 266 mg/dL (74-106); Phosphorus 2.5 mg/dL (2.5-4.9); Potassium 3.3 mmol/L (3.5-5.1); Sodium Level 142 mmol/L (136-145)
[2018-06-16 10:47] LABS: PTHIN 40.3 pg/mL (18.4-80.1); Vitamin D,25 Hydroxy 34.2 ng/mL (29.95-100.01)
[2018-06-16 10:53] LABS: Protein:Creat Ratio 1864 mg/g CRE (0-200)
== END ==
PROVIDERS: Family Provider Nurse Practitioner; PCP Nurse Practitioner; Referring Provider Internal Medicine Nephrology; Visit Provider Internal Medicine Nephrology
DX: N18.3 Chronic kidney disease, stage 3 (moderate) (principal); D64.9 Anemia, unspecified
CPT/HCPCS: 36415; 80069; 82306; 82570; 83970; 84156; 85027

== ENCOUNTER → 2018-10-05 | Outpatient (CLI) | payer MEDICARE, OTHER, SELFPAY ==
[2018-06-21 10:13] VITALS: BMI 25.8
[2018-10-05 10:03] LABS: Absolute Lymphocyte Count 1.93 X10^3/ul (0.83-4.51); Absolute Neutrophil Count 6.5 X10^3/uL (2.0-7.7); Basophil# 0.03 X10^3/uL; Basophil% 0.3 % (0-1); Eosinophil# 0.12 X10^3/uL; Eosinophils% 1.3 % (0-5); Hematocrit 35.2 % (40-54); Hemoglobin 11.5 g/dl (13.0-16.5); Lymphocyte # 1.93 X10^3/ul (4.0); Lymphocyte % 20.7 % (19-41); Mean Corp Hgb Conc 32.7 g/gl (32-36); Mean Corpuscular Hgb 29.9 pg (27.0-32.0); Mean Corpuscular Volume 91.7 fL (80-94); Mean Platelet Vol. 10.1 fl (6.2-12.0); Monocyte# 0.71 X10^3/uL; Monocyte% 7.6 % (0-10); Neutrophil # 6.51 X10^3/uL (2.7-7.7); Neutrophil % 69.7 % (47-70); Platelet Count 434 K/mm3 (150-450); RBC Distribution Width SD 43.1 fl (35.1-43.9); Red Blood Count 3.84 M/mm3 (4.6-6.2); White Blood Count 9.3 K/mm3 (4.4-11.0)
[2018-10-05 10:04] LABS: POSITIVE COUNT NO; POSITIVE DIFFERENTIAL NO; POSITIVE MORPHOLOGY NO
[2018-10-05 10:24] LABS: ALB/GLOB Ratio 0.8 RATIO (0.9-2.4); AST(SGOT) 20 U/L (15-37); Alanine Aminotransfer ALT/SGPT 27 U/L (16-61); Albumin, Serum 3.1 g/dL (3.2-5.0); Alkaline Phosphatase 83 U/L (45-117); Anion Gap 11 (5-15); BUN 38 mg/dL (7-18); BUN/Creat Ratio 21.7 RATIO (10-20); Calcium,Total 8.8 mg/dL (8.5-10.1); Chloride 99 mmol/L (98-107); Creatinine, Serum 1.75 mg/dL (0.70-1.30); EST Glomerular Filtration Rate 41 mL/min (>60); Est Glom Filt Rate - Afr Amer 49 mL/min (>60); Globulin 3.7 g/dL (2.2-4.2); Glucose 146 mg/dL (74-106); Potassium 3.5 mmol/L (3.5-5.1); Protein, Total 6.8 g/dL (6.4-8.2); Sodium Level 140 mmol/L (136-145); Thyroid Stim Hormone (TSH) 2.78 uIU/mL (0.358-3.74)
== END | disposition home or self-care (01) ==
LOC: MTLAB 08:09
PROVIDERS: Family Provider Nurse Practitioner; PCP Nurse Practitioner; Referring Provider Nurse Practitioner; Visit Provider Nurse Practitioner
DX: I10 Essential (primary) hypertension (principal)
CPT/HCPCS: 36415; 80053; 84443; 85025

== ENCOUNTER → 2019-01-14 09:14 | Outpatient (CLI) | payer MEDICARE, OTHER, SELFPAY ==
[2018-06-21 10:13] VITALS: BMI 25.8
[2019-01-14 10:46] LABS: Absolute Lymphocyte Count 1.12 X10^3/uL (0.83-4.51); Absolute Neutrophil Count 6.3 X10^3/uL (2.0-7.7); Basophil# 0.04 X10^3/uL; Basophil% 0.5 % (0-1); Eosinophil# 0.09 X10^3/uL; Eosinophils% 1.1 % (0-5); Hematocrit 36.5 % (40-54); Hemoglobin 11.7 g/dL (13.0-16.5); Lymphocyte # 1.12 X10^3/ul (4.0); Lymphocyte % 13.4 % (19-41); Mean Corp Hgb Conc 32.1 g/dL (32-36); Mean Corpuscular Hgb 29.8 pg (27.0-32.0); Mean Corpuscular Volume 92.9 fL (80-94); Mean Platelet Vol. 9.9 fl (6.2-12.0); Monocyte# 0.71 X10^3/uL; Monocyte% 8.5 % (0-10); NRBC Flagged by Analyzer 0 % (0-5); Neutrophil # 6.33 X10^3/uL (2.7-7.7); Platelet Count 407 K/mm3 (150-450); RBC Distribution Width CV 12.2 % (11.6-14.6); RBC Distribution Width SD 41.6 fl (35.1-43.9); Red Blood Count 3.93 M/mm3 (4.6-6.2); White Blood Count 8.3 K/mm3 (4.4-11.0)
[2019-01-14 11:20] LABS: Microalbumin:Creatinine Ratio 1734.6 mg/g CRE (<30 mg/g CRE)
[2019-01-14 11:24] LABS: Vitamin B12 1216 pg/mL (211-911); Vitamin D,25 Hydroxy 53.2 ng/mL (29.95-100.01)
[2019-01-14 11:48] LABS: ALB/GLOB Ratio 0.8 RATIO (0.9-2.4); AST(SGOT) 16 U/L (15-37); Alanine Aminotransfer ALT/SGPT 21 U/L (16-61); Albumin, Serum 3.2 g/dL (3.2-5.0); Alkaline Phosphatase 95 U/L (45-117); Anion Gap 3 (5-15); BUN 34 mg/dL (7-18); BUN/Creat Ratio 19.8 RATIO (10-20); Calcium,Total 9.4 mg/dL (8.5-10.1); Chloride 103 mmol/L (98-107); Creatinine, Serum 1.72 mg/dL (0.70-1.30); EST Glomerular Filtration Rate 41 mL/min (>60); Est Glom Filt Rate - Afr Amer 50 mL/min (>60); Globulin 3.8 g/dL (2.2-4.2); Glucose 93 mg/dL (74-106); PSA,Total - Annual Screen 7.13 ng/mL (0.00-4.00); Potassium 3.3 mmol/L (3.5-5.1); Sodium Level 140 mmol/L (136-145)
== END ==
PROVIDERS: Family Provider Nurse Practitioner; PCP Nurse Practitioner; Referring Provider Internal Medicine Rheumatology; Visit Provider Internal Medicine Rheumatology
DX: E11.65 Type 2 diabetes mellitus with hyperglycemia (principal); Z12.5 Encounter for screening for malignant neoplasm of prostate; E55.9 Vitamin D deficiency, unspecified
CPT/HCPCS: 36415; 80053; 82043; 82306; 82570; 82607; 82746; 84153; 85025; G0103

== ENCOUNTER → 2019-02-23 08:34 | Outpatient (CLI) | payer MEDICARE, OTHER, SELFPAY ==
[2018-06-21 10:13] VITALS: BMI 25.8
[2019-02-23 10:35] LABS: Erythrocyte Sedimentation Rate 9 mm/hr (0-20)
[2019-02-23 10:44] LABS: Absolute Lymphocyte Count 1.15 X10^3/uL (0.83-4.51); Absolute Neutrophil Count 5.4 X10^3/uL (2.0-7.7); Basophil# 0.04 X10^3/uL; Basophil% 0.6 % (0-1); Eosinophil# 0.07 X10^3/uL; Hematocrit 34.2 % (40-54); Hemoglobin 10.8 g/dL (13.0-16.5); Lymphocyte # 1.15 X10^3/ul (4.0); Lymphocyte % 15.8 % (19-41); Mean Corp Hgb Conc 31.6 g/dL (32-36); Mean Corpuscular Hgb 29.5 pg (27.0-32.0); Mean Corpuscular Volume 93.4 fL (80-94); Mean Platelet Vol. 10.4 fl (6.2-12.0); Monocyte% 8.3 % (0-10); NRBC Flagged by Analyzer 0 % (0-5); Neutrophil # 5.35 X10^3/uL (2.7-7.7); Neutrophil % 73.6 % (47-70); Platelet Count 415 K/mm3 (150-450); RBC Distribution Width CV 12.2 % (11.6-14.6); RBC Distribution Width SD 41.8 fl (35.1-43.9); Red Blood Count 3.66 M/mm3 (4.6-6.2); White Blood Count 7.3 K/mm3 (4.4-11.0)
== END ==
PROVIDERS: Family Provider Nurse Practitioner; PCP Nurse Practitioner; Referring Provider Internal Medicine Rheumatology; Visit Provider Internal Medicine Rheumatology
DX: M35.3 Polymyalgia rheumatica (principal)
CPT/HCPCS: 36415; 85025; 85652; 86140

== ENCOUNTER → 2019-08-16 08:10 | Outpatient (CLI) | payer MEDICARE, OTHER, SELFPAY ==
[2018-06-21 10:13] VITALS: BMI 25.8
[2019-08-01 09:18] VITALS: BMI 23.8
== END ==
PROVIDERS: Family Provider Nurse Practitioner; PCP Nurse Practitioner; Referring Provider Urology; Visit Provider Urology
DX: R97.20 Elevated prostate specific antigen [PSA] (principal)
CPT/HCPCS: 36415; 84153

== ENCOUNTER → 2019-10-21 11:01 | Outpatient (CLI) | payer MEDICARE, OTHER, SELFPAY ==
[2019-08-01 09:18] VITALS: BMI 23.8
[2019-10-21 15:59] LABS: PSA,Total- Diagnostic 4.69 ng/mL (0.0-4.0)
== END ==
PROVIDERS: PCP Nurse Practitioner; Referring Provider Urology; Visit Provider Urology
DX: R97.20 Elevated prostate specific antigen [PSA] (principal)
CPT/HCPCS: 36415; 84153

== ENCOUNTER → 2020-01-19 07:19 | Outpatient (CLI) | payer MEDICARE, OTHER, SELFPAY ==
[2019-12-09 09:16] VITALS: BMI 23.9
[2020-01-19 09:58] LABS: Absolute Lymphocyte Count 1.69 X10^3/uL (0.83-4.51); Absolute Neutrophil Count 3.7 X10^3/uL (2.0-7.7); Basophil# 0.05 X10^3/uL; Basophil% 0.8 % (0-1); Eosinophil# 0.07 X10^3/uL; Eosinophils% 1.2 % (0-5); Hematocrit 37.6 % (40-54); Hemoglobin 12.1 g/dL (13.0-16.5); Lymphocyte # 1.69 X10^3/ul (4.0); Lymphocyte % 27.9 % (19-41); Mean Corp Hgb Conc 32.2 g/dL (32-36); Mean Corpuscular Hgb 30.4 pg (27.0-32.0); Mean Corpuscular Volume 94.5 fL (80-94); Mean Platelet Vol. 10.2 fl (6.2-12.0); Monocyte# 0.58 X10^3/uL; Monocyte% 9.6 % (0-10); NRBC Flagged by Analyzer 0 % (0-5); Neutrophil # 3.66 X10^3/uL (2.7-7.7); Neutrophil % 60.3 % (47-70); Platelet Count 373 K/mm3 (150-450); RBC Distribution Width CV 12.3 % (11.6-14.6); RBC Distribution Width SD 42.9 fl (35.1-43.9); Red Blood Count 3.98 M/mm3 (4.6-6.2); White Blood Count 6.1 K/mm3 (4.4-11.0)
[2020-01-19 10:12] LABS: Vitamin B12 835 pg/mL (211-911); Vitamin D,25 Hydroxy 69.2 ng/mL
[2020-01-19 11:47] LABS: AST(SGOT) 24 U/L (15-37); Alanine Aminotransfer ALT/SGPT 31 U/L (16-61); Albumin, Serum 3.4 g/dL (3.2-5.0); Alkaline Phosphatase 79 U/L (45-117); Anion Gap 2 (5-15); BUN 42 mg/dL (7-18); BUN/Creat Ratio 20.2 RATIO (10-20); Calcium,Total 9.2 mg/dL (8.5-10.1); Chloride 102 mmol/L (98-107); Cholesterol 208 mg/dL (200); Creatinine, Serum 2.08 mg/dL (0.70-1.30); EST Glomerular Filtration Rate 33 mL/min (>60); Est Glom Filt Rate - Afr Amer 40 mL/min (>60); Folates, (Folic Acid) > 100.00 ng/mL (3.1-55.4); Globulin 3.4 g/dL (2.2-4.2); Glucose 35 mg/dL (74-106); High Density Lipoprotein 50 mg/dL; Potassium 3.3 mmol/L (3.5-5.1); Protein, Total 6.8 g/dL (6.4-8.2); Sodium Level 140 mmol/L (136-145); Thyroid Stim Hormone (TSH) 3.39 uIU/mL (0.358-3.74); Triglycerides 130 mg/dL; Very Low Density Lipoprotein 26 mg/dL (5-40)
== END ==
PROVIDERS: PCP Nurse Practitioner; Referring Provider Nurse Practitioner; Visit Provider Nurse Practitioner
DX: N18.30 Chronic kidney disease, stage 3 unspecified (principal); E78.5 Hyperlipidemia, unspecified; M85.80 Other specified disorders of bone density and structure, unspecified site
CPT/HCPCS: 36415; 80053; 80061; 82306; 82607; 82746; 84443; 85025

== ENCOUNTER 2020-06-21 10:46 | Outpatient (RCR) | payer MEDICARE, OTHER, SELFPAY ==
[2020-02-14 09:10] VITALS: BMI 24.3
[2020-06-21] MEDS: COVID-19 VACC, MRNA(PFIZER)/PF 30 MCG/0.3 ML SYRINGE IM (07:55)
[2020-07-12] MEDS: COVID-19 VACC, MRNA(PFIZER)/PF 30 MCG/0.3 ML SYRINGE IM (07:26)
== END 2020-09-18 23:59 ==
LOC: IMMUN 10:46
PROVIDERS: PCP Nurse Practitioner; Visit Provider Family Medicine
DX: Z23 Encounter for immunization (principal)
CPT/HCPCS: 0001A; 0002A; 91300

== ENCOUNTER → 2020-08-13 07:13 | Outpatient (CLI) | payer MEDICARE, OTHER, SELFPAY ==
[2020-02-14 09:10] VITALS: BMI 24.3
[2020-08-13 09:52] LABS: Absolute Lymphocyte Count 1.47 X10^3/uL (0.83-4.51); Absolute Neutrophil Count 3.6 X10^3/uL (2.0-7.7); Basophil# 0.05 X10^3/uL; Basophil% 0.9 % (0-1); Eosinophil# 0.13 X10^3/uL; Eosinophils% 2.3 % (0-5); Hematocrit 32.9 % (40-54); Hemoglobin 10.6 g/dL (13.0-16.5); Lymphocyte # 1.47 X10^3/ul (0.83-4.51); Lymphocyte % 25.5 % (19-41); Mean Corp Hgb Conc 32.2 g/dL (32-36); Mean Corpuscular Hgb 29.3 pg (27.0-32.0); Mean Corpuscular Volume 90.9 fL (80-94); Mean Platelet Vol. 10.4 fl (6.2-12.0); Monocyte# 0.46 X10^3/uL; NRBC Flagged by Analyzer 0 % (0-5); Neutrophil # 3.64 X10^3/uL (2.7-7.7); Neutrophil % 63.1 % (47-70); Platelet Count 376 K/mm3 (150-450); RBC Distribution Width CV 12.8 % (11.6-14.6); RBC Distribution Width SD 42.8 fl (35.1-43.9); Red Blood Count 3.62 M/mm3 (4.6-6.2); White Blood Count 5.8 K/mm3 (4.4-11.0)
[2020-08-13 10:27] LABS: BUN 47 mg/dL (7-18); BUN/Creat Ratio 22.1 RATIO (10-20); Calcium,Total 8.5 mg/dL (8.5-10.1); Chloride 102 mmol/L (98-107); Creatinine, Serum 2.13 mg/dL (0.70-1.30); EST Glomerular Filtration Rate 32 mL/min (>60); Est Glom Filt Rate - Afr Amer 39 mL/min (>60); Glucose 166 mg/dL (74-106); Phosphorus 3.6 mg/dL (2.5-4.9); Potassium 3.5 mmol/L (3.5-5.1); Sodium Level 140 mmol/L (136-145)
[2020-08-13 10:35] LABS: Protein, Urine (Random) 171.9 mg/dL (<11.9); Protein:Creat Ratio 1622 mg/g CRE (0-200)
[2020-08-13 15:15] LABS: PTHIN 31.6 pg/mL (18.4-80.1)
[2020-08-13 15:20] LABS: Vitamin D,25 Hydroxy 78.4 ng/mL
== END ==
PROVIDERS: PCP Nurse Practitioner; Referring Provider Internal Medicine Nephrology; Visit Provider Internal Medicine Nephrology
DX: D64.9 Anemia, unspecified (principal); E55.9 Vitamin D deficiency, unspecified; N18.30 Chronic kidney disease, stage 3 unspecified
CPT/HCPCS: 36415; 80069; 82306; 82570; 83970; 84156; 85025

== ENCOUNTER → 2020-10-04 07:11 | Outpatient (CLI) | payer MEDICARE, OTHER, SELFPAY ==
[2020-10-02 15:22] VITALS: BMI 22.1
[2020-10-04 10:28] LABS: AST(SGOT) 19 U/L (15-37); Alanine Aminotransfer ALT/SGPT 24 U/L (16-61); Albumin, Serum 3.3 g/dL (3.2-5.0); Alkaline Phosphatase 83 U/L (45-117); Cholesterol 214 mg/dL (200); Globulin 3.3 g/dL (2.2-4.2); High Density Lipoprotein 43 mg/dL; Protein, Total 6.6 g/dL (6.4-8.2); Triglycerides 123 mg/dL; Very Low Density Lipoprotein 25 mg/dL (5-40)
== END ==
PROVIDERS: PCP Nurse Practitioner; Referring Provider Internal Medicine Cardiovascular Disease; Visit Provider Internal Medicine Cardiovascular Disease
DX: E78.00 Pure hypercholesterolemia, unspecified (principal)
CPT/HCPCS: 36415; 80061; 80076

== ENCOUNTER 2020-11-03 20:38 | Inpatient (IN) | payer MEDICARE, OTHER, SELFPAY ==
[2020-10-09 08:08] VITALS: BMI 22.1
[2020-11-03 20:39] VITALS: BP 179/79; PULSE 98; RESP 16; TEMP 38.5; O2SAT 91; BMI 21.2
--- NOTE | 2020-11-03 20:48 | EDS_ITS ---
HPI History of Present Illness Chief Complaint: Fever Detail of Chief Complaint: Patient presents with a fever that started today Informant: patient and spouse/S.O. Narrative Narrative: Patient presents to the emergency department with complaint of dizziness that started yesterday. Today patient's been generally weak and has had chills. Patient's had a cough that started today that is nonproductive. Patient has had both doses of the Covid vaccine since June. Patient has history of COPD as well as diabetes and hypertension. Patient has history of polymyalgia rheumatica. Patient complains of urinary frequency but denies dysuria. Prior similar symptoms: No [facility] Medical History (Updated 11/03/20 @ 23:[address] Wendi Murrieta, ) Anemia Atherosclerotic heart disease of zuni coronary artery without angina pectoris Back problem Bone fracture Bronchitis Cataracts, bilateral COPD (chronic obstructive pulmonary disease) Diabetic retinopathy associated with type 1 diabetes mellitus Dyspnea on exertion Essential hypertension Family history of hyperlipidemia Family history of hypertension Headache Hearing problem Hyperlipidemia Hypertension FPC use of drug Mixed hyperlipidemia Nicotine abuse Osteoarthritis Prostate disease Sleep apnea Vision problem Home Medications aspirin 81 mg tablet,delayed release 81 mg PO QDAY tab 06/15/17 [History Last Taken Unknown] gabapentin 300 mg capsule 300 mg PO TID 06/15/17 [History Last Taken Unknown] hydrochlorothiazide 25 mg tablet 25 mg PO QDAY tab 06/15/17 [History Last Taken Unknown] tamsulosin 0.4 mg capsule 0.4 mg PO QDAY 06/15/17 [History Last Taken Unknown] amlodipine 5 mg tablet 5 mg PO QDAY 06/16/17 [History Last Taken Unknown] finasteride 5 mg tablet 5 mg PO QDAY 06/16/17 [History Last Taken Unknown] lisinopril 40 mg tablet 40 mg PO QDAY 06/16/17 [History Last Taken Unknown] multivitamin 1 tab PO QDAY 06/16/17 [History Last Taken Unknown] insulin lispro 200 unit/mL (3 mL) subcutaneous pen 30 unit SC QAC ml 05/17/18 [History Last Taken Unknown] calcium citrate 315 mg-vitamin D3 5 mcg (200 unit) tablet 2 tab PO BID 02/15/19 [History Last Taken Unknown] cholecalciferol (vitamin D3) 25 mcg (1,000 unit) capsule 1,000 unit PO DAILY 02/15/19 [History Last Taken Unknown] colestipol 1 gram tablet 1 g PO BID tab 02/15/19 [History Last Taken Unknown] docusate sodium 100 mg capsule 200 mg PO DAILY cap 02/15/19 [History Last Taken Unknown] folic acid 400 mcg tablet 400 mcg PO BID tab 02/15/19 [History Last Taken Unknown] vitamins A,C,U-moel-apxlei 14,320 unit-226 mg-200 unit capsule 1 cap PO BID 02/15/19 [History Last Taken Unknown] insulin glargine 100 unit/mL (3 mL) subcutaneous pen 20 unit SC DAILY ml 05/18/20 [History Last Taken Unknown] prednisone 5 mg tablet 5 mg PO DAILY tab 05/18/20 [History Last Taken Unknown] pravastatin 40 mg tablet 80 mg PO QDAY tab 10/05/20 [History Last Taken Unknown] Allergy/AdvReac Type Severity Reaction Status Date / Time No Known Allergies Allergy Verified 11/03/20 20:41 Family History Father Diabetes Hypertension Family history of hyperlipidemia Asthma Kidney disease Mother Diabetes Brother Cancer Throat cancer Brother CAD (coronary artery disease) Myocardial infarction, Onset Age: 52 Sister Family history of hyperlipidemia Hypertension Diabetes Unknown Alcoholism Arthritis Depression Diabetes Hypertension Hyperlipidemia Osteoporosis Respiratory disease Pancreatic cancer Other Family history of hypertension Surgical History Fracture of left patella Fracture of left upper extremity History of bilateral inguinal hernia repair (~2007) History of colonoscopy (~2013) History of hemorrhoidectomy (~2000) History of hernia repair (~1991) stent replacement for right sided kidney stome Wrist fracture, bilateral Social History Smoking Status: Current some day smoker tobacco type: cigarettes how long ago did patient quit smokin alcohol intake: current alcohol intake frequency: a few times a month substance use type: does not use caffeine: Yes Type: coffee Number of servings: 2 what type of physical activity do you participate in: none seatbelt use: sometimes do you feel safe at home: Yes ROS ROS ED ROS Narrative Generalized weakness and chills Constitutional Constitutional ED: Reports systems reviewed and no addt'l complaints, except as documented and fever(s); Denies body ache(s), change in weight or chills Eyes Eyes: Denies acute decrease in peripheral vision, change in vision, double vision or loss of vision ENT ENT ED: Reports none; Denies ear pain, lip swelling, loss taste/smell, neck pain, otalgia or sore throat Cardiovascular Cardiovascular: Reports none; Denies abdominal pain, chest pain with activity, leg edema, lightheadedness, palpitations, rapid heart rate or syncope Respiratory/Chest Respiratory/Chest: Reports none and cough; Denies change in mental status, dry cough, dyspnea, hemoptysis, shortness of breath at rest or shortness of breath with exertion Gastrointestinal Gastrointestinal: Reports none; Denies abdominal pain, change in stool character, diarrhea, hematemesis, hematochezia, melena, rectal bleeding or vomiting Genitourinary Genitourinary ED: Reports none; Denies abdominal discomfort, anuria, dysuria, genital pain or polyuria Musculoskeletal Musculoskeletal: Reports none; Denies arthralgias, back pain, difficulty walking, extremity pain, muscle weakness or myalgias Integumentary Reports none; Denies abscess or rash Neurologic Neurologic: Reports none; Denies abnormal gait, confusion, focal weakness, frequent falls, headache(s), loss of vision, numbness, paresthesias, radicular pain, vertigo or weakness Psychiatric Psychiatric: Reports systems reviewed and no addt'l complaints, except as documented and none; Denies behavioral changes, confusion, difficulty concentrating, hallucinations, suicidal ideation, tactile hallucinations or visual hallucinations Endocrine Endocrinology: Denies none, cold intolerance, excessive sweating, fatigue or heat intolerance Hematologic/Lymphatic Hematologic/Lymphatic: Reports none; Denies anemia, easy bleeding or easy bruising Allergic/Immunologic Allergic/Immunologic ED: Denies as per HPI, none, lip swelling, mouth swelling, throat swelling, tongue swelling or hives EXAM Physical Exam Const Vital Signs: 11/03/20 20:39 11/03/20 21:00 11/03/20 22:06 Temperature 101.3 F H Temperature Source Temporal Pulse Rate 98 94 91 Respiratory Rate 16 28 H Respiratory Effort Respiratory Pattern Blood Pressure 179/79 H 168/64 H 184/66 H Blood Pressure Mean 112 98 105 Pulse Ox 91 88 94 Oxygen Delivery Method Room Air Room Air Nasal Cannula Oxygen Flow Rate (L/min) 2 11/03/20 22:07 Temperature Temperature Source Pulse Rate Respiratory Rate Respiratory Effort Normal Non-Labored Respiratory Pattern Irregular Blood Pressure Blood Pressure Mean Pulse Ox Oxygen Delivery Method Oxygen Flow Rate (L/min) Positive well nourished and well developed General Appearance ED: well developed and NAD HEENT Reports TM's clear and moist mucous membranes normocephalic and atraumatic; Negative for trauma or tenderness Tympanic Membrane ED: Yes TM's clear Eyes PERRL and EOMs intact bilaterally General Eye ED: Negative for pale conjunctiva or scleral icterus Neck no lymphadenopathy, supple and no JVD General: Negative for tenderness Chest Wall inspection of chest normal and palpation of chest normal Chest: Negative for tenderness Resp normal respiratory effort and clear to auscultation bilaterally Effort and Inspection: Negative for respiratory distress or pain with movement Auscultation: Negative for rhonchi, wheezes or diminished lung sounds Cardio regular rate, regular rhythm, S1 normal heart sound, S2 normal heart sound and no murmurs Peripheral Pulses: pulses 2+ throughout GI normal to inspection, nondistended, normoactive bowel sounds, soft to palpation, non-tender, non-distended and no masses Back/Spine no CVA tenderness and no thoracic nor lumbar tenderness Extremity normal to inspection General Extremety ED: Negative for edema General Extremity: Negative for edema Neuro oriented x3, CN's II-XII intact bilaterally, no sensory deficits noted and gait normal Sensorium / Orientation: awake, alert, oriented to person, oriented to place and oriented to time Motor Exam: strength 5/5 throughout and strength abnormal Psych mental status grossly normal Skin no rashes or lesions noted and no wounds MDM MDM MDM Narrative Medical decision making narrative: Patient and were advised of the results. I suspect patient has community-acquired pneumonia. Patient meets sepsis criteria. Patient started on Rocephin and Zithromax. Blood cultures ordered and pending. Lab Data Attestation: I reviewed the patient's lab results. Labs: Laboratory Results - last 24 hr 11/03/20 11/03/20 11/03/20 20:48 21:35 21:35 WBC 12.3 H RBC 3.61 L Hgb 10.9 L Hct 32.4 L MCV 89.8 MCH 30.2 MCHC 33.6 RDW Std Deviation 40.1 RDW Coeff of Russell 12.3 Plt Count 284 MPV 10.5 Immature Gran % (Auto) 0.400 Neut % (Auto) 87.3 H Lymph % (Auto) 4.8 L Yancey % (Auto) 7.2 Eos % (Auto) 0.1 Baso % (Auto) 0.2 Absolute Neuts (auto) 10.7 H Absolute Lymphs (auto) 0.59 L Nucleated RBC % 0 Differential Comment SCANNED Sodium 132 L Potassium 3.7 Chloride 95 L Carbon Dioxide 30.0 Anion Gap 7 BUN 56 H Creatinine 2.59 H Estim Creat Clear Calc 21.79 Est GFR (MDRD) Af Amer 31 L Est GFR (MDRD) Non-Af 26 L BUN/Creatinine Ratio 21.6 H Glucose 276 H Lactic Acid Calcium 8.4 L Urine Color Yellow Urine Clarity Clear Urine pH 6.0 Ur Specific [place] 1.015 Urine Protein 500 H Urine Glucose (UA) 1000 H Urine Ketones Negative Urine Occult Blood 150 H Urine Nitrite Negative Urine Bilirubin Negative Urine Urobilinogen Normal Ur Leukocyte Esterase Negative Urine RBC 0-5 SEEN Urine WBC 0 SEEN Ur Squamous Epith Cells 0-5 SEEN Urine Bacteria RARE Urine Mucus 0 SEEN 11/03/20 21:35 WBC RBC Hgb Hct MCV MCH MCHC RDW Std Deviation RDW Coeff of Russell Plt Count MPV Immature Gran % (Auto) Neut % (Auto) Lymph % (Auto) Yancey % (Auto) Eos % (Auto) Baso % (Auto) Absolute Neuts (auto) Absolute Lymphs (auto) Nucleated RBC % Differential Comment Sodium Potassium Chloride Carbon Dioxide Anion Gap BUN Creatinine Estim Creat Clear Calc Est GFR (MDRD) Af Amer Est GFR (MDRD) Non-Af BUN/Creatinine Ratio Glucose Lactic Acid 0.8 Calcium Urine Color Urine Clarity Urine pH Ur Specific [place] Urine Protein Urine Glucose (UA) Urine Ketones Urine Occult Blood Urine Nitrite Urine Bilirubin Urine Urobilinogen Ur Leukocyte Esterase Urine RBC Urine WBC Ur Squamous Epith Cells Urine Bacteria Urine Mucus Radiography Chest X-Ray - ED: 1 View Diagnostic Testing: Radiology Impression Chest X-Ray 11/03/20 21:55 IMPRESSION: Right upper lobe pulmonary infiltrate with bibasilar atelectasis, infiltrate and/or scarring. Recommend follow-up imaging past treatment to document clearing of right upper lobe opacity changes and exclude other process. at 2241 Reported and signed by: Rayshawn Schmidt MD Electronically Signed: Rayshawn Schmidt MD at 22:40 EDT Tel , Service support , 1 view chest x-ray obtained interpreted by myself as increased markings right upper lobe and right lower lobe consistent with pneumonia. Radiology in agreement. Discharge Plan Triage Chief Complaint: Fever ED Provider: Wendi Murrieta Dx/Rx/DC Orders Clinical Impression: Community acquired pneumonia, Sepsis, Chronic kidney insufficiency Prescriptions: No Action hydrochlorothiazide 25 mg tablet 25 mg PO QDAY RF: 0 aspirin [Adult Low Dose Aspirin] 81 mg tablet,delayed release (DR/EC) 81 mg PO QDAY RF: 0 gabapentin 300 mg capsule 300 mg PO TID RF: 0 tamsulosin 0.4 mg capsule,extended release 24hr 0.4 mg PO QDAY RF: 0 finasteride [Proscar] 5 mg tablet 5 mg PO QDAY RF: 0 lisinopril 40 mg tablet 40 mg PO QDAY RF: 0 amlodipine 5 mg tablet 5 mg PO QDAY RF: 0 multivitamin tablet 1 tab PO QDAY RF: 0 colestipol 1 gram tablet 1 g PO BID RF: 0 prednisone 5 mg tablet 5 mg PO DAILY RF: 0 Humalog KwikPen Insulin 200 unit/mL (3 mL) insulin pen 30 unit SC QAC RF: 0 docusate sodium [Colace] 100 mg capsule 200 mg PO DAILY RF: 0 calcium citrate-vitamin D3 [Calcium Citrate + D] 315-200 mg-unit tablet 2 tab PO BID RF: 0 cholecalciferol (vitamin D3) 1,000 unit capsule 1,000 unit PO DAILY RF: 0 folic acid 400 mcg tablet 400 mcg PO BID RF: 0 Vision Formula (C-S-P-Zn-geovani) 14,320-226-200 dttn-mj-aupm capsule 1 cap PO BID RF: 0 Lantus Solostar U-100 Insulin 100 unit/mL (3 mL) insulin pen 20 unit SC DAILY RF: 0 pravastatin 40 mg tablet 80 mg PO QDAY RF: 0 Primary Care Provider: Fina Spicer NP Referrals: Fina Spicer NP, [employer] [Primary Care Provider] - Disposition Disposition: Acute Care [facility]
[2020-11-03 21:00] VITALS: BP 168/64; PULSE 94; O2SAT 88
[2020-11-03 21:09] LABS: Color, Urine Yellow (Yellow); Glucose, Dipstick 1000 mg/dl (Normal); Ketone-Dipstick Negative (Negative); Leukocyte Esterase-Dipstick Negative /ul (Negative); Mucous, Urine 0 SEEN /hpf (<or=2+); Nitrite-Dipstick Negative (Negative); Occult Blood-Urine 150 /ul (Negative); Protein-Dipstick 500 mg/dl (Negative); Specific Gravity, Urine 1.015 (1.002-1.030); Urine Bilirubin Dipstick Negative (Negative); Urine Clarity Clear (Clear); Urine Urobilinogen Normal (Normal); White Blood Cells 0 SEEN /hpf (0-5)
[2020-11-03 21:14] LABS: Bacteria RARE /hpf (None Seen); Red Blood Cells-Urine 0-5 SEEN /hpf (0-5); Squamous Epithelial Cells - UA 0-5 SEEN /hpf (0-5)
[2020-11-03 21:55] LABS: Absolute Lymphocyte Count 0.59 X10^3/uL (0.83-4.51); Absolute Neutrophil Count 10.7 X10^3/uL (2.0-7.7); Basophil# 0.03 X10^3/uL; Basophil% 0.2 % (0-1); Eosinophil# 0.01 X10^3/uL; Eosinophils% 0.1 % (0-5); Hematocrit 32.4 % (40-54); Hemoglobin 10.9 g/dL (13.0-16.5); Lymphocyte # 0.59 X10^3/ul (0.83-4.51); Lymphocyte % 4.8 % (19-41); Mean Corp Hgb Conc 33.6 g/dL (32-36); Mean Corpuscular Hgb 30.2 pg (27.0-32.0); Mean Corpuscular Volume 89.8 fL (80-94); Mean Platelet Vol. 10.5 fl (6.2-12.0); Monocyte# 0.89 X10^3/uL; Monocyte% 7.2 % (0-10); NRBC Flagged by Analyzer 0 % (0-5); Neutrophil # 10.72 X10^3/uL (2.7-7.7); Neutrophil % 87.3 % (47-70); POSITIVE DIFFERENTIAL YES; Platelet Count 284 K/mm3 (150-450); RBC Distribution Width CV 12.3 % (11.6-14.6); RBC Distribution Width SD 40.1 fl (35.1-43.9); Red Blood Count 3.61 M/mm3 (4.6-6.2); White Blood Count 12.3 K/mm3 (4.4-11.0)
--- NOTE | 2020-11-03 21:55 | RAD_ITS ---
HISTORY: cough EXAMINATION/TECHNIQUE: XR Chest 1 View AP view COMPARISON: Two-view chest x-ray from 05/05/18 FINDINGS: LINES/DEVICES: monitor tech leads. LUNGS: Hazy right upper lobe pulmonary opacities. Coarsened bibasilar pulmonary opacities. Stable small, benign pulmonary calcified nodules. Slightly elevated right hemidiaphragm. No sizable pleural effusion. No pneumothorax detected. MEDIASTINUM AND CARDIOVASCULAR STRUCTURES: Heart normal size. Atherosclerotic calcifications along the aorta. BONES AND SOFT TISSUES: Skeletal degenerative changes. RAD/Chest 1 View (Portable) IMPRESSION: Right upper lobe pulmonary infiltrate with bibasilar atelectasis, infiltrate and/or scarring. Recommend follow-up imaging past treatment to document clearing of right upper lobe opacity changes and exclude other process. at 2241 Reported and signed by: Rayshawn Schmidt MD Electronically Signed: Rayshawn Schmidt MD at 22:40 EDT Tel , Service support ,
[2020-11-03 21:59] LABS: Differential Indicated SCAN CRITERIA MET
[2020-11-03] MEDS: 0.9% Normal Saline 1,000 ML 150 ML IV (22:05)
[2020-11-03 22:06] VITALS: BP 184/66; PULSE 91; RESP 28; O2SAT 94
[2020-11-03 22:15] LABS: Anion Gap 7 (5-15); BUN 56 mg/dL (7-18); BUN/Creat Ratio 21.6 RATIO (10-20); Calcium,Total 8.4 mg/dL (8.5-10.1); Chloride 95 mmol/L (98-107); Creatinine, Serum 2.59 mg/dL (0.70-1.30); EST Glomerular Filtration Rate 26 mL/min (>60); Est Glom Filt Rate - Afr Amer 31 mL/min (>60); Estimated Creatinine Clearance 21.79 ml/min; Glucose 276 mg/dL (74-106); Potassium 3.7 mmol/L (3.5-5.1); Sodium Level 132 mmol/L (136-145)
[2020-11-03 22:22] LABS: Differential Comment SCANNED
[2020-11-03 22:43] LABS: Lactic Acid 0.8 mmol/L (0.4-1.9)
--- NOTE | 2020-11-03 23:10 | PCM.HP.STD ---
HPI - General General Date of Admission: 11/03/20 HPI Narrative DEX VALLE, is a 74 M with a significant history of COPD; hypertension; diabetes mellitus; and polymyalgia rheumatica who presents to the emergency department with dizziness. He describes his dizziness as stumbling around. His symptoms started on the same day of presentation and it has been persistent. Associated with his symptoms is shortness of breath; intermittent dry cough; fatigue; weakness; chills and fever. Reportedly his temperature at home was 102.3 Fahrenheit. He has chronic anorexia. He denies ever having COVID-19 infection. He took the two coyle pfizer vaccination. His last dose of the pfizer was in June 2020. [facility] Medical History (Updated 11/03/20 @ 23:[address] 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 Mixed hyperlipidemia Nicotine abuse Osteoarthritis Prostate disease Sleep apnea Vision problem Home Medications aspirin 81 mg tablet,delayed release 81 mg PO QDAY tab 06/15/17 [History Last Taken Unknown] gabapentin 300 mg capsule 300 mg PO TID 06/15/17 [History Last Taken Unknown] hydrochlorothiazide 25 mg tablet 25 mg PO QDAY tab 06/15/17 [History Last Taken Unknown] tamsulosin 0.4 mg capsule 0.4 mg PO QDAY 06/15/17 [History Last Taken Unknown] amlodipine 5 mg tablet 5 mg PO QDAY 06/16/17 [History Last Taken Unknown] finasteride 5 mg tablet 5 mg PO QDAY 06/16/17 [History Last Taken Unknown] lisinopril 40 mg tablet 40 mg PO QDAY 06/16/17 [History Last Taken Unknown] multivitamin 1 tab PO QDAY 06/16/17 [History Last Taken Unknown] insulin lispro 200 unit/mL (3 mL) subcutaneous pen 30 unit SC QAC ml 05/17/18 [History Last Taken Unknown] calcium citrate 315 mg-vitamin D3 5 mcg (200 unit) tablet 2 tab PO BID 02/15/19 [History Last Taken Unknown] cholecalciferol (vitamin D3) 25 mcg (1,000 unit) capsule 1,000 unit PO DAILY 02/15/19 [History Last Taken Unknown] colestipol 1 gram tablet 1 g PO BID tab 02/15/19 [History Last Taken Unknown] docusate sodium 100 mg capsule 200 mg PO DAILY cap 02/15/19 [History Last Taken Unknown] folic acid 400 mcg tablet 400 mcg PO BID tab 02/15/19 [History Last Taken Unknown] vitamins A,C,T-zksi-twpiql 14,320 unit-226 mg-200 unit capsule 1 cap PO BID 02/15/19 [History Last Taken Unknown] insulin glargine 100 unit/mL (3 mL) subcutaneous pen 20 unit SC DAILY ml 05/18/20 [History Last Taken Unknown] prednisone 5 mg tablet 5 mg PO DAILY tab 05/18/20 [History Last Taken Unknown] pravastatin 40 mg tablet 80 mg PO QDAY tab 10/05/20 [History Last Taken Unknown] Allergy/AdvReac Type Severity Reaction Status Date / Time No Known Allergies Allergy Verified 11/03/20 20:41 Family History Father Diabetes Hypertension Family history of hyperlipidemia Asthma Kidney disease Mother Diabetes Brother Cancer Throat cancer Brother CAD (coronary artery disease) Myocardial infarction, Onset Age: 52 Sister Family history of hyperlipidemia Hypertension Diabetes Unknown Alcoholism Arthritis Depression Diabetes Hypertension Hyperlipidemia Osteoporosis Respiratory disease Pancreatic cancer Other Family history of hypertension Surgical History Fracture of left patella Fracture of left upper extremity History of bilateral inguinal hernia repair (~2007) History of colonoscopy (~2013) History of hemorrhoidectomy (~2000) History of hernia repair (~1991) stent replacement for right sided kidney stome Wrist fracture, bilateral Social History Smoking Status: Current some day smoker tobacco type: cigarettes how long ago did patient quit smokin alcohol intake: current alcohol intake frequency: a few times a month substance use type: does not use caffeine: Yes Type: coffee Number of servings: 2 what type of physical activity do you participate in: none seatbelt use: sometimes do you feel safe at home: Yes ROS ROS Narrative Constitutional: Reports fever, chills, fatigue, and weakness. Eyes: Denies blurry vision, change in eye color, change in vision, discharge from eye(s), double vision, erythema, eye pain, loss of vision or other HEENT: Denies abnormal hearing, dysphagia, ear pain, epistaxis, headache(s), hearing loss, nasal congestion, nasal discharge, post nasal drip, sinus pressure, sore throat or other Cardiovascular: Denies chest pain. Denies dyspnea on exertion, orthopnea and paroxysmal nocturnal dyspnea Respiratory/Chest: Reports intermittent dry cough; and shortness of breath. Denies wheezes Gastrointestinal: Denies abdominal pain, coffee ground emesis, constipation, diarrhea, dyspepsia, hematemesis, hematochezia, loose stools, melena, nausea, vomiting or other Genitourinary: Denies burning urination, difficulty urinating, dysuria, hematuria, nocturia, urinary frequency, urinary hesitancy, urinary incontinence, urinary urgency or other Musculoskeletal: Denies arthralgias, back pain, joint pain, joint stiffness, joint swelling, myalgias, neck pain or other Neurologic: Denies focal weakness, headache(s), numbness, paresthesias, seizure-like activity, seizures, syncope, tingling, tremor(s) or other Psychiatric: Denies anxiety, depression, homicidal ideation, suicidal ideation or other Endocrinology: Denies change in body appearance, cold intolerance, excessive sweating, heat intolerance, polydipsia, polyuria or other Hematologic/Lymphatic: Denies anemia, easy bleeding, easy bruising, lymphadenopathy or other Integumentary: Reports/Denies ulcer on buttocks. Allergic/Immunologic: Denies rhinitis, hives, eczema, asthma or other Vital Signs Vital Signs Vital Signs: 11/03/20 20:39 11/03/20 21:00 11/03/20 22:06 Temperature 101.3 F H Temperature Source Temporal Pulse Rate 98 94 91 Respiratory Rate 16 28 H Respiratory Effort Respiratory Pattern Blood Pressure 179/79 H 168/64 H 184/66 H Blood Pressure Mean 112 98 105 Pulse Ox 91 88 94 Oxygen Delivery Method Room Air Room Air Nasal Cannula Oxygen Flow Rate (L/min) 2 11/03/20 22:07 Temperature Temperature Source Pulse Rate Respiratory Rate Respiratory Effort Normal Non-Labored Respiratory Pattern Irregular Blood Pressure Blood Pressure Mean Pulse Ox Oxygen Delivery Method Oxygen Flow Rate (L/min) Weight Weight: 63.503 kg Body Mass Index (BMI) 21.2 Physical Exam Narrative Physical exam: General: Well-nourished, well-developed, no acute distress Head: Normocephalic, atraumatic, no tenderness Eyes: PERRLA, EOMI ENT, no trauma, moist mucous membranes, no rhinorrhea Neck: Nontender, full range of motion, no spinal tenderness, deformities, step-off CVS: Regular rate and rhythm Respiratory: Tachypnea; Rales Abdomen: Soft, nontender, nondistended, normal bowel sounds, no masses : Deferred Back: Nontender, no CVA tenderness, no midline spinal tenderness, deformities, step-offs Extremities: Nontender full range of motion, no trauma Skin: Normal color, no trauma, abrasions Neuro: Alert, oriented, cranial nerves II through XII grossly intact. Psychiatry: Normal mood. Normal affect. Not depressed. Not anxious. Results Lab / Micro Data Result Diagrams: 11/03/20 21:35 11/03/20 21:35 Labs: Laboratory Results - last 24 hr 11/03/20 20:48: Urine Color Yellow, Urine Clarity Clear, Urine pH 6.0, Ur Specific [place] 1.015, Urine Protein 500 H, Urine Glucose (UA) 1000 H, Urine Ketones Negative, Urine Occult Blood 150 H, Urine Nitrite Negative, Urine Bilirubin Negative, Urine Urobilinogen Normal, Ur Leukocyte Esterase Negative, Urine RBC 0-5 SEEN, Urine WBC 0 SEEN, Ur Squamous Epith Cells 0-5 SEEN, Urine Bacteria RARE, Urine Mucus 0 SEEN 11/03/20 21:35: WBC 12.3 H, RBC 3.61 L, Hgb 10.9 L, Hct 32.4 L, MCV 89.8, MCH 30.2, MCHC 33.6, RDW Std Deviation 40.1, RDW Coeff of Russell 12.3, Plt Count 284, MPV 10.5, Immature Gran % (Auto) 0.400, Neut % (Auto) 87.3 H, Lymph % (Auto) 4.8 L, [place] % (Auto) 7.2, Eos % (Auto) 0.1, Baso % (Auto) 0.2, Absolute Neuts (auto) 10.7 H, Absolute Lymphs (auto) 0.59 L, Nucleated RBC % 0, Differential Comment SCANNED 11/03/20 21:35: Sodium 132 L, Potassium 3.7, Chloride 95 L, Carbon Dioxide 30.0, Anion Gap 7, BUN 56 H, Creatinine 2.59 H, Estim Creat Clear Calc 21.79, Est GFR (MDRD) Af Amer 31 L, Est GFR (MDRD) Non-Af 26 L, BUN/Creatinine Ratio 21.6 H, Glucose 276 H, Calcium 8.4 L 11/03/20 21:35: Lactic Acid 0.8 Micro: Microbiology 11/03/20 21:15 Mucosa - Nose SARS-CoV-2 Antigen (Rapid) - Final Radiology Impression Chest X-Ray 11/03/20 21:55 IMPRESSION: Right upper lobe pulmonary infiltrate with bibasilar atelectasis, infiltrate and/or scarring. Recommend follow-up imaging past treatment to document clearing of right upper lobe opacity changes and exclude other process. at 2241 Reported and signed by: Rayshawn Schmidt MD Electronically Signed: Rayshawn Schmidt MD at 22:40 EDT Tel , Service support , Assessment & Plan Assessment/Plan (1) Community acquired pneumonia: QUALIFIERS: Laterality: right Lung location: upper lobe of lung Qualified Code(s): J18.9 - Pneumonia, unspecified organism (2) Sepsis: QUALIFIERS: Sepsis acute organ dysfunction status: without acute organ dysfunction Sepsis type: sepsis due to unspecified organism Qualified Code(s): A41.9 - Sepsis, unspecified organism (3) Chronic kidney insufficiency: PLAN: Sepsis secondary to community-acquired pneumonia SIRS criteria: Tachypnea with respiratory rate of 28; tachycardia with heart rate highest of 112. T-max of 101.3 Fahrenheit at the hospital. White count of 12.3 at the hospital. Lactic acid: 0.8 Impression of chest x-ray by radiologist: Right upper lobe pulmonary infiltrate with bibasilar atelectasis, infiltrate and/or scarring. Actual chest x-ray was independently reviewed and I agree radiologist interpretation. Blood culture ?2 is pending; follow. As needed Mucinex. Albuterol as needed Tylenol for fever Legionella antigen screen and Strep antigen ordered PT and OT to work with patient Review of labs showed hyponatremia with sodium of 132 likely secondary pulmonary infection. Old records showed normal sodium. Trend CBC and BMP. Diabetes mellitus Patient with hyperglycemia on presentation Review of records shows that A1c on 10/09/2020 was 8.7. Basal insulin continued Accu-Chek [facility] with correction scale insulin ordered. Hypertensive urgency High systolic blood pressure of 184 Amlodipine, continued. Home lisinopril and hydrochlorthiazide held secondary to ENMANUEL. As needed hydralazine and labetalol ordered. Trend blood pressure and adjust blood pressure medications. ENMANUEL on chronic kidney disease stage IIIb CKD Likely from Diabetic nephropathy Baseline creatinine of 2.08 to 2.13 Creatinine on admission was 2.59 BUN is 56. Review of records show that is the highest BUN so far. BUN over creatinine is 21.6. Likely prerenal on top of intrinsic renal. Gentle IV hydration ordered. Avoid nephrotoxins. As such home lisinopril and hydrochlorothiazide held. History of polymyalgia rheumatica. Prednisone continued. Same this is low-dose prednisone will not escalate steroids at this time. DVT prophylaxis Subcutaneous heparin ordered. Charges/Coding Visit Charges Inpatient E&M: 54771 Init Hosp L3
[2020-11-03] MEDS: Ceftriaxone 1 GM/50 ML BAG IV (23:15)
[2020-11-03 23:47] VITALS: BP 184/66; PULSE 91; RESP 28; TEMP 37.9; O2SAT 94
[2020-11-04] VITALS (13 sets, daily range): BP systolic 134–170; BP diastolic 40–82; PULSE 81–98; RESP 16–28; TEMP 37–38.9; O2SAT 88–97; BMI 22.0
[2020-11-04] MEDS: Insulin Lispro 100 UNIT/ML INSULN.PEN SC ×5 (00:42→21:21)
[2020-11-04] MEDS: Acetaminophen 325 MG Tablet 650 MG PO ×3 (00:42→23:19)
[2020-11-04] MEDS: 0.9% Normal Saline 1,000 ML 75 ML IV ×2 (03:39→14:24)
[2020-11-04 06:27] LABS: Absolute Lymphocyte Count 0.71 X10^3/uL (0.83-4.51); Absolute Neutrophil Count 10.3 X10^3/uL (2.0-7.7); Basophil# 0.04 X10^3/uL; Basophil% 0.3 % (0-1); Eosinophil# 0.03 X10^3/uL; Eosinophils% 0.2 % (0-5); Hematocrit 31.4 % (40-54); Hemoglobin 10.5 g/dL (13.0-16.5); Lymphocyte # 0.71 X10^3/ul (0.83-4.51); Lymphocyte % 5.8 % (19-41); Mean Corp Hgb Conc 33.4 g/dL (32-36); Mean Corpuscular Hgb 30.1 pg (27.0-32.0); Mean Platelet Vol. 10.5 fl (6.2-12.0); Monocyte# 1.12 X10^3/uL; Monocyte% 9.1 % (0-10); NRBC Flagged by Analyzer 0 % (0-5); Neutrophil # 10.32 X10^3/uL (2.7-7.7); Neutrophil % 84.2 % (47-70); Platelet Count 274 K/mm3 (150-450); RBC Distribution Width CV 12.4 % (11.6-14.6); RBC Distribution Width SD 40.7 fl (35.1-43.9); Red Blood Count 3.49 M/mm3 (4.6-6.2); White Blood Count 12.3 K/mm3 (4.4-11.0)
[2020-11-04 06:55] LABS: Bedside Glucose 261 mg/dL (70-110)
[2020-11-04 07:01] LABS: Anion Gap 8 (5-15); BUN 52 mg/dL (7-18); BUN/Creat Ratio 21.2 RATIO (10-20); Calcium,Total 8.2 mg/dL (8.5-10.1); Chloride 98 mmol/L (98-107); Creatinine, Serum 2.45 mg/dL (0.70-1.30); EST Glomerular Filtration Rate 27 mL/min (>60); Est Glom Filt Rate - Afr Amer 33 mL/min (>60); Estimated Creatinine Clearance 23.87 ml/min; Glucose 175 mg/dL (74-106); Potassium 3.5 mmol/L (3.5-5.1); Sodium Level 134 mmol/L (136-145)
[2020-11-04] MEDS: Multivitamins,Therapeutic Tablet 1 TABLET PO (08:38)
[2020-11-04] MEDS: Calcium Carb/Vitamin D 1 TABLET Tablet 2 TABLET PO ×2 (08:38→21:14)
[2020-11-04] MEDS: Folic Acid 1 MG Tablet 0.5 MG PO ×2 (08:38→17:02)
[2020-11-04] MEDS: Finasteride 5 MG Tablet PO (08:39)
[2020-11-04] MEDS: Docusate Sodium 100 MG Capsule 200 MG PO (08:39)
[2020-11-04] MEDS: predniSONE 5 MG Tablet PO (08:39)
[2020-11-04] MEDS: Multivitamin (Healthy Eyes) Capsule 1 CAP PO ×2 (08:40→21:13)
[2020-11-04] MEDS: Tamsulosin HCl 0.4 MG Capsule PO (08:41)
[2020-11-04] MEDS: amLODIPine 10 MG Tablet PO (08:43)
[2020-11-04] MEDS: Glucerna Shake 120 ML LIQUID PO ×3 (08:46→17:03)
[2020-11-04] MEDS: Cholecalciferol (VIT D3) 25 MCG TABLET (1,000 UNITS) PO (08:48)
--- NOTE | 2020-11-04 10:19 | PCM.PN.BLA ---
Progress Note Patient was seen and examined. He feels fair. Admitted this morning with sepsis secondary to pneumonia. Vitals are stable except for low-grade fever Urine Legionella and streptococcal antigen are negative. COVID-19 rapid antigen is negative Chest x-ray shows right upper lobe infiltrate Continue on IV ceftriaxone and azithromycin Continue gentle IV fluids
--- NOTE | 2020-11-04 11:07 | NURSING ---
LATE ENTRY - 1000 - PT REFUSING ASA & LOVENOX. STATES HE IS SCHEDULED FOR PROSTATE BIOPSY ON NOV 12 & WAS TOLD NOT TO TAKE ANY BLOOD THINNERS [address] ROBERTSON MADE AWARE.
[2020-11-04 11:35] LABS: Bedside Glucose 322 mg/dL (70-110)
--- NOTE | 2020-11-04 14:23 | NURSING ---
PT PLACED ON O2 2L NC
--- NOTE | 2020-11-04 15:55 | NURSING ---
3 LOOSE STOOLS SO FAR THIS SHIFT, DR ROBERTSON MADE AWARE. ORDER RECEIVED.
[2020-11-04 16:55] LABS: Bedside Glucose 456 mg/dL (70-110)
--- NOTE | 2020-11-04 17:09 | NURSING ---
ACCUCHECK 456. STAT LAB GLUCOSE ORDERED. DR ROBERTSON MADE AWARE. GIVEN 11UNITS HUMALOG PER S/S ORDER.
--- NOTE | 2020-11-04 17:42 | NURSING ---
primary RN informed of lab backup glucose of 445 as called.
[2020-11-04 17:44] LABS: Glucose 445 mg/dL (74-106)
[2020-11-04] MEDS: Heparin Injection (Vial) 5,000 UNIT/ML VIAL 5000 UNIT SC (21:13)
[2020-11-04] MEDS: Pravastatin 80 MG Tablet PO (21:14)
[2020-11-04 21:21] LABS: Bedside Glucose 323 mg/dL (70-110)
[2020-11-04] MEDS: Ceftriaxone 1 GM/50 ML BAG IV (21:22)
[2020-11-04 21:35] LABS: Bedside Glucose 308 mg/dL (70-110)
[2020-11-05 02:00] VITALS: BP 144/53; PULSE 82; RESP 16; TEMP 36.6; O2SAT 96
[2020-11-05] MEDS: 0.9% Normal Saline 1,000 ML 75 ML IV ×2 (03:41→16:40)
[2020-11-05] MEDS: Insulin Lispro 100 UNIT/ML INSULN.PEN SC ×3 (06:35→21:22)
[2020-11-05 06:40] LABS: Bedside Glucose 318 mg/dL (70-110)
[2020-11-05] MEDS: Tamsulosin HCl 0.4 MG Capsule PO (07:51)
[2020-11-05] MEDS: Multivitamins,Therapeutic Tablet 1 TABLET PO ×2 (07:51)
[2020-11-05] MEDS: Multivitamin (Healthy Eyes) Capsule 1 CAP PO ×2 (07:51→21:13)
[2020-11-05] MEDS: Folic Acid 1 MG Tablet 0.5 MG PO ×2 (07:51→16:41)
[2020-11-05] MEDS: Docusate Sodium 100 MG Capsule 200 MG PO (07:51)
[2020-11-05] MEDS: Cholecalciferol (VIT D3) 25 MCG TABLET (1,000 UNITS) PO ×2 (07:55→07:57)
[2020-11-05] MEDS: Finasteride 5 MG Tablet PO (07:56)
[2020-11-05 08:00] VITALS: BP 142/62; PULSE 81; RESP 18; TEMP 36.9; O2SAT 93
[2020-11-05] MEDS: predniSONE 5 MG Tablet PO (08:01)
[2020-11-05] MEDS: amLODIPine 10 MG Tablet PO (08:01)
[2020-11-05] MEDS: Calcium Carb/Vitamin D 1 TABLET Tablet 2 TABLET PO ×2 (08:02→21:13)
--- NOTE | 2020-11-05 10:40 | CASEMGMT ---
NADEEM VINCENT Assessment: Face to Face with pt for initial transition planning/care coordination assessment. RN MELISA introduced self and role at [facility], pt voices understanding and consents to assessment. Pt is A/O x4 and answers all questions appropriately at this time. Pt lying in bed with O2 on in no distress. Care providers, pharmacy, and demographics verified/updated. Admitting Dx: sepsis secondary to pna PCP: Fina Spicer [employer] [facility] Specialists: , endocrinology; Tri, uro; Winsome, cardio Preferred Pharmacy: [facility] [place] Insurance: [employer], Comm Prescription Benefit: yes LW/HPOA: Pt states she has a LW/DPOA. He states his DPOA is his Ghazala. he is aware that it is not on file at [facility] and he may bring in to scan into the chart. LNOK: Ghazala Andre, ; Titi Handy, dtr Living Arrangements: Pt lives with in a two story cluster house with 3 steps to enter with rail. Pt states he is I in ADL's and denies concerns at home. Transportation: Pt drives self and denies concerns with transportation. DME/HHC/SNF: Pt has glucometer with a patch on his arm to check blood sugars. He also has insulin pens with all supplies. Pt denies any hx of HHC or SNF stays. Pt states he checks his blood sugar 3x/day before meals. He also reports he will have a biopsy of his prostate on November [address] Bartlett. Pt states no concerns with going home at time of dc. Pt states no further concerns/needs. CM to follow. Advised pt to ask CM if any further question/concerns/needs arise, voices understanding. Pt Goal: Home Plan: Home with support.
[2020-11-05] MEDS: Glucerna Shake 120 ML LIQUID PO ×2 (10:48→16:40)
[2020-11-05 11:01] LABS: Bedside Glucose 300 mg/dL (70-110)
--- NOTE | 2020-11-05 11:09 | CASEMGMT ---
Pt screened with [facility] Palliative Care Screening Tool due to strata 3, pt did not meet criteria.
[2020-11-05 12:57] VITALS: O2SAT 4; O2SAT 84
[2020-11-05 14:00] VITALS: BP 149/67; PULSE 82; RESP 18; TEMP 36.9; O2SAT 94
[2020-11-05 16:55] LABS: Bedside Glucose 131 mg/dL (70-110)
[2020-11-05 20:13] VITALS: BP 166/71; PULSE 90; RESP 18; TEMP 37.2; O2SAT 92
--- NOTE | 2020-11-05 20:22 | PCM.PN.HOSP ---
Subjective Subjective Patient was seen and examined today, his was in the room during the time my examination. Patient would like to go home rather than to a retirement facility. Physical therapy does not feel the patient needs home physical therapy. Patient's is concerned that the patient will just lie around at home and not do anything, I stated that if the patient decides to do that there is nothing that I can do to help that. Patient is currently requiring supplemental oxygen, his blood culture results have not resulted as of today and I have decided to keep him in the hospital on IV antibiotics for now and reassess his oxygen requirement tomorrow. Objective Data Objective Data Vital Signs: Vital Signs Temp Pulse Resp BP Pulse Ox 98.9 F 90 18 166/71 H 92 11/05/20 20:13 11/05/20 20:13 11/05/20 20:13 11/05/20 20:13 11/05/20 20:13 Oxygen Flow Rate (L/min) [ 94 AMBULATING with Oxygen #1] Oxygen Flow Rate (L/min) 3 Oxygen Delivery Method Nasal Cannula Weight: 65.8 kg Body Mass Index (BMI) 22.0 Intake & Output: Intake and Output for Last 24 Hours 11/03/20 11/04/20 11/05/20 23:59 23:59 23:59 Intake Total 550 / 550 3071.25 / 3471.25 3430.00 / 3430.00 Output Total 925 / 925 650 / 650 Balance 550 / 550 2146.25 / 2546.25 2780.00 / 2780.00 Medical Nutrition Assessment Dietitian: Nutrition Therapy Diagnosis Start: 11/04/20 10:43 Freq: Status: Active Protocol: Document 11/04/20 11:06 BP (Rec: 11/04/20 11:06 BP [id number]) Nutrition Malnutrition Evidence of Malnutrition Exists Yes Malnutrition (severe): Social/Behavioral/ Environmental Evidenced By Suboptimal Energy Intake ( Severe),Weight Loss (Severe) Clinical Problem Acute Disease or Injury Related Malnutrition Etiology Moderate malnutrition in the context of social/behavioral/ environmental circumstances related to inadequate oral intake and lack of motivation to consume sufficient energy to meet estimated nutritional needs Signs/Symptoms as evidenced by pt report increased stress in life resulting in decreased intake consuming </=75% energy intake at meals compared to estimated needs x >/=1 month, unintentional wt loss 9% x 2 months. Status Active Problem Recommendation Dietitian Recommendations/Changes Will provide Cardiac CHO consistent diet without calorie restriction related to s/s of malnutrition. Continue Glucerna 120 ml 4x/ day medpass- will provide ensure pudding or magic cup with pt meals for additional mike/protein if consumed. Lab / Micro Data Result Diagrams: 11/04/20 05:50 11/04/20 17:05 Labs: Laboratory Results - last 24 hr 11/04/20 00:39: POC Glucose 323 H 11/04/20 21:21: POC Glucose 308 H 11/05/20 06:35: POC Glucose 318 H 11/05/20 10:50: POC Glucose 300 H 11/05/20 16:46: POC Glucose 131 H Micro: Microbiology 11/03/20 20:48 Urine, Clean Catch Urine Culture - Preliminary Culture exhibits no growth. 11/03/20 20:48 Urine, Clean Catch Legionella Antigen - Final 11/03/20 20:48 Urine, Clean Catch Streptococcus pneumoniae Antigen (M - Final 11/03/20 21:15 Mucosa - Nose SARS-CoV-2 Antigen (Rapid) - Final Physical Exam Const alert, oriented x3 and no apparent distress Constitutional Narrative: Patient appears older than stated age General Appearance: cooperative, well kempt and well developed Orientation / Consciousness: awake, oriented to person, oriented to place and oriented to time HEENT normocephalic, head/scalp atraumatic and moist oral mucous membranes Head and Scalp: normocephalic Eyes PERRL, EOMs intact bilaterally and conjunctivae normal Neck nuchal rigidity, supple, no JVD, thyroid normal and no carotid bruits General: trachea midline Resp normal respiratory effort, no retractions and no use of accessory muscles Resp Narrative: Decreased breath sounds bilaterally Auscultation: Negative for rales, rhonchi or wheezes Cardio regular rate, regular rhythm, S1 normal heart sound, S2 normal heart sound, no murmurs, no rub and no gallops GI normal to inspection, nondistended, normoactive bowel sounds, soft to palpation, non-tender and non-distended Extremity no clubbing, cyanosis or edema Skin no rashes or lesions noted, no wounds, skin turgor normal and no jaundice General Skin Exam: no breakdown Neuro oriented x3, CN's II-XII intact bilaterally, no focal motor deficits and no sensory deficits noted Sensorium / Orientation: awake and alert Speech: speech normal Psych thought process normal and affect normal Assessment & Plan Assessment/Plan (1) Community acquired pneumonia: QUALIFIERS: Laterality: right Lung location: upper lobe of lung Qualified Code(s): J18.9 - Pneumonia, unspecified organism PLAN: 1. Sepsis secondary to community-acquired pneumonia-organism unknown, continue present antibiotic coverage #2 right upper lobe community-acquired pneumonia-organism unknown, continue present treatment #3 chronic obstructive pulmonary disease #4 type 2 diabetes #5 stage IV chronic kidney disease secondary to type 2 diabetes Charges/Coding Visit Charges Inpatient E&M: 29446 Subs Hosp L2
[2020-11-05] MEDS: Heparin Injection (Vial) 5,000 UNIT/ML VIAL 5000 UNIT SC (21:13)
[2020-11-05] MEDS: Pravastatin 80 MG Tablet PO (21:13)
[2020-11-05] MEDS: Ceftriaxone 1 GM/50 ML BAG IV (21:14)
[2020-11-05 21:30] LABS: Bedside Glucose 252 mg/dL (70-110)
[2020-11-06] VITALS (14 sets, daily range): BP systolic 142–159; BP diastolic 63–75; PULSE 77–95; RESP 18–26; TEMP 37.1–37.3; O2SAT 87–95
[2020-11-06] MEDS: guaiFENesin 10 ML UDC (200MG/10ML) 20 ML PO ×3 (01:31→16:51)
[2020-11-06] MEDS: Albuterol 2.5 MG/3 ML VIAL.NEB. INHALATION ×2 (02:38→06:47)
[2020-11-06] MEDS: Insulin Lispro 100 UNIT/ML INSULN.PEN SC ×4 (06:10→21:26)
[2020-11-06 06:15] LABS: Bedside Glucose 190 mg/dL (70-110)
[2020-11-06] MEDS: Furosemide 100 MG/10 ML Vial 80 MG IV (06:31)
[2020-11-06] MEDS: 0.9% Saline Lock 10 ML Syringe IV ×3 (06:34→23:02)
[2020-11-06] MEDS: Folic Acid 1 MG Tablet 0.5 MG PO ×2 (08:02→16:52)
[2020-11-06] MEDS: Cholecalciferol (VIT D3) 25 MCG TABLET (1,000 UNITS) PO (08:02)
[2020-11-06] MEDS: Tamsulosin HCl 0.4 MG Capsule PO (08:03)
[2020-11-06] MEDS: Calcium Carb/Vitamin D 1 TABLET Tablet 2 TABLET PO ×2 (08:03→21:27)
[2020-11-06] MEDS: Glucerna Shake 120 ML LIQUID PO (08:03)
[2020-11-06] MEDS: amLODIPine 10 MG Tablet PO (08:04)
[2020-11-06] MEDS: Docusate Sodium 100 MG Capsule 200 MG PO (08:05)
[2020-11-06] MEDS: Finasteride 5 MG Tablet PO (08:05)
[2020-11-06] MEDS: predniSONE 5 MG Tablet PO (08:05)
[2020-11-06] MEDS: Multivitamin (Healthy Eyes) Capsule 1 CAP PO ×2 (08:07→21:27)
[2020-11-06 11:30] LABS: Bedside Glucose 240 mg/dL (70-110)
[2020-11-06] MEDS: Acetaminophen 325 MG Tablet 650 MG PO (16:51)
[2020-11-06 17:00] LABS: Bedside Glucose 187 mg/dL (70-110)
--- NOTE | 2020-11-06 17:12 | RAD_ITS ---
STUDY: X-RAY CHEST REASON FOR EXAM: Male, 74 years old. Dyspnea TECHNIQUE: Single AP portable view of the chest. COMPARISON: Comparison is made with prior study of 11/03/2020. FINDINGS: Patchy infiltrates seen in the right upper lobe as well as in the left lower lobe. These have progressed as compared to prior study. Blunting of both costophrenic angles. Normal size heart. Normal mediastinum and allison. Normal visualized pulmonary arteries. There is atherosclerotic calcification of the aortic arch with tortuosity. There are diffuse degenerative changes of the visualized thoracic spine. Normal visualized ribs, clavicles, and shoulders. There is no demonstrated abnormality of the visualized soft tissue structures of the upper abdomen. RAD/Chest 1 View (Portable) IMPRESSION: Patchy infiltrates in the right upper lobe and left lower lobe with blunting of both costophrenic angles. Electronically Signed: Elvis Green MD at 20:28 EDT , Service support ,
--- NOTE | 2020-11-06 18:28 | CT_ITS ---
STUDY: CT CHEST WITHOUT CONTRAST REASON FOR EXAM: Male, 74 years old. Abnormal chest x-ray RADIATION DOSAGE (If Supplied By Facility): CTDIvol = ( 7.12 ) mGy, DLP = ( 227.87 ) mGycm TECHNIQUE: Transaxial imaging was performed without the administration of intravenous contrast material. Individualized dose optimization techniques were used for this CT. COMPARISON: None. FINDINGS: The lungs demonstrate areas of chronic lung disease including emphysema and bronchiectasis with associated patchy consolidation and groundglass opacities predominantly within the right upper lobe. Moderate bilateral pleural effusions are noted. There is no demonstrated pleural abnormality. There are calcifications of the coronary arteries. Prominent mediastinal lymphadenopathy is poorly characterized due to lack of intravenous contrast. Cannot exclude right hilar lymphadenopathy. Normal unenhanced pulmonary arteries. There is atherosclerotic calcification of the aortic arch with tortuosity and elongation of the aortic arch and descending thoracic aorta. Normal osseous structures. There is no demonstrated abnormality of the visualized upper abdomen. CT/Chest without Contrast IMPRESSION: Evidence of bilateral effusions, chronic lung disease, groundglass opacity and focal consolidation versus mass. Pneumonia should be excluded clinically. Malignancy is not excluded especially given poorly characterized mediastinal lymphadenopathy. Consider diagnostic thoracentesis for further evaluation if clinically indicated. Electronically Signed: Hoang Brian MD at 19:44 EDT Tel , Service support ,
--- NOTE | 2020-11-06 18:44 | PN.HOSP_ITS ---
Subjective Subjective Patient was seen and examined today, his oxygen requirement has increased overnight, he is now on nasal cannula oxygen at 7 L. I talked briefly with pulmonary medicine about him this evening and asked them to see him in consultation tomorrow, I have ordered additional labs on the patient as well as an echocardiogram. Objective Data Objective Data Vital Signs: Vital Signs Temp Pulse Resp BP Pulse Ox 98.7 F 78 18 142/63 H 90 11/06/20 14:40 11/06/20 14:40 11/06/20 14:40 11/06/20 14:40 11/06/20 18:27 Oxygen Flow Rate (L/min) [ 94 AMBULATING with Oxygen #1] Oxygen Flow Rate (L/min) 7 Oxygen Delivery Method Nasal Cannula Weight: 65.8 kg Body Mass Index (BMI) 22.0 Intake & Output: Intake and Output for Last 24 Hours 11/04/20 11/05/20 11/06/20 23:59 23:59 23:59 Intake Total 3071.25 / 3471.25 4132.50 / 4282.50 1270 / 1270 Output Total 925 / 925 650 / 1175 2049 / 2049 Balance 2146.25 / 2546.25 3482.50 / 3107.50 -780 / -780 Medical Nutrition Assessment Dietitian: Nutrition Therapy Diagnosis Start: 11/04/20 10:43 Freq: Status: Active Protocol: Document 11/04/20 11:06 BP (Rec: 11/04/20 11:06 BP [id number]) Nutrition Malnutrition Evidence of Malnutrition Exists Yes Malnutrition (severe): Social/Behavioral/ Environmental Evidenced By Suboptimal Energy Intake ( Severe),Weight Loss (Severe) Clinical Problem Acute Disease or Injury Related Malnutrition Etiology Moderate malnutrition in the context of social/behavioral/ environmental circumstances related to inadequate oral intake and lack of motivation to consume sufficient energy to meet estimated nutritional needs Signs/Symptoms as evidenced by pt report increased stress in life resulting in decreased intake consuming </=75% energy intake at meals compared to estimated needs x >/=1 month, unintentional wt loss 9% x 2 months. Status Active Problem Recommendation Dietitian Recommendations/Changes Will provide Cardiac CHO consistent diet without calorie restriction related to s/s of malnutrition. Continue Glucerna 120 ml 4x/ day medpass- will provide ensure pudding or magic cup with pt meals for additional mike/protein if consumed. Lab / Micro Data Result Diagrams: 11/04/20 05:50 11/04/20 17:05 Labs: Laboratory Results - last 24 hr 11/05/20 21:20: POC Glucose 252 H 11/06/20 06:09: POC Glucose 190 H 11/06/20 11:20: POC Glucose 240 H 11/06/20 16:46: POC Glucose 187 H Micro: Microbiology 11/06/20 08:15 Stool Enteric Bacteriology - Final 11/03/20 20:48 Urine, Clean Catch Urine Culture - Final Culture exhibits no growth. 11/03/20 21:40 Blood Culture (Wb) - Anticubital Right Blood Culture - Preliminary No growth in 48 hours. 11/03/20 21:35 Blood Culture (Wb) - Anticubital Left Blood Culture - Preliminary No growth in 48 hours. 11/03/20 20:48 Urine, Clean Catch Legionella Antigen - Final 11/03/20 20:48 Urine, Clean Catch Streptococcus pneumoniae Antigen (M - Final 11/03/20 21:15 Mucosa - Nose SARS-CoV-2 Antigen (Rapid) - Final Physical Exam Const alert, oriented x3 and no apparent distress Constitutional Narrative: Patient appears older than his stated age, he appears to be weak and unwell General Appearance: cooperative, well kempt and well developed Orientation / Consciousness: awake, oriented to person, oriented to place and oriented to time HEENT normocephalic, head/scalp atraumatic and moist oral mucous membranes Head and Scalp: normocephalic Eyes PERRL, EOMs intact bilaterally and conjunctivae normal Neck nuchal rigidity, supple, no JVD, thyroid normal and no carotid bruits General: trachea midline Resp normal respiratory effort, no retractions and no use of accessory muscles Resp Narrative: Breath sounds are distant bilaterally Auscultation: Negative for rales, rhonchi or wheezes Cardio regular rate, regular rhythm, S1 normal heart sound, S2 normal heart sound, no murmurs, no rub and no gallops GI normal to inspection, nondistended, normoactive bowel sounds, soft to palpation, non-tender and non-distended Extremity no clubbing, cyanosis or edema Skin no rashes or lesions noted General Skin Exam: no breakdown Neuro oriented x3, CN's II-XII intact bilaterally, no focal motor deficits and no sensory deficits noted Sensorium / Orientation: awake and alert Speech: speech normal Psych thought process normal and affect normal Assessment & Plan Assessment/Plan (1) Community acquired pneumonia: QUALIFIERS: Laterality: right Lung location: upper lobe of lung Qualified Code(s): J18.9 - Pneumonia, unspecified organism PLAN: 1. Sepsis secondary to community-acquired pneumonia-organism unknown, for now I have decided to keep the patient on his current antibiotic coverage, I have asked pulmonary medicine to see the patient, labs were ordered for tonight. I reviewed the patient's chest x-ray today and it does not look to this examiner like it is markedly different from his admission chest x-ray. I have ordered a CT of the chest without contrast. 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 Charges/Coding Visit Charges Inpatient E&M: 49365 Subs Hosp L2
--- NOTE | 2020-11-06 18:45 | ECHOD_ITS ---
Reason For Study: DYSPNEA/SOB Procedure This was a 2D Doppler, Color Flow transthoracic echocardiogram. The study was technically difficult. Exam performed portable in patient room. Left Ventricle Normal LV size. Sigmoid septum. Left ventricular systolic function is normal. The estimated ejection fraction is 65 %. There is evidence of diastolic dysfunction. No regional wall motion abnormalities noted. Right Ventricle Normal RV size. Normal systolic function. Atria The left atrium is mildly enlarged. Normal right atrium. No doppler evidence for ASD. Mitral Valve There is no mitral annular calcification. Normal mitral valve. Mild (1+) mitral valve insufficiency. Tricuspid Valve Normal tricuspid valve. Trivial tricuspid valve insufficiency. Right ventricular systolic pressure estimated to be 41 mmHg. Aortic Valve Trisinus/trileaflet aortic valve. Mild diffuse aortic valve thickening. Moderate focal aortic valve calcification. Trivial aortic valve insufficiency. Pulmonic Valve The pulmonic valve is not well visualized. Trivial pulmonic valve insufficiency. Great Vessels Mildly dilated aortic root. Pericardium/Pleural Trivial pericardial effusion. There are no echocardiographic indications of cardiac tamponade. MMode/2D Measurements & Calculations RVDd: 4.2 cm LVOT diam: 2.3 cm Ao root diam: 4.0 cm LVOT area: 4.3 cm2 LAV(MOD-bp): 60.8 ml LA dimension(2D): 4.4 cm LA A4 area: 20.3 cm2 LAV(MOD-bp) Indexed: 34.1 ml/m2 LAV(MOD-sp2): 48.2 ml LAV(MOD-sp4): 72.1 ml RA A4 area: 12.7 cm2 Time Measurements MV dec time: 0.15 sec Doppler Measurements & Calculations MV E max moo: 84.4 cm/sec Lat Peak E' Moo: 7.4 cm/sec Med Peak E' Moo: 5.7 cm/sec MV A max moo: 96.5 cm/sec E/E' lat: 11.4 E/E' med: 14.7 MV E/A: 0.87 Ao V2 max: 215.1 cm/sec LV V1 max: 101.9 cm/sec SV(LVOT): 99.7 ml Ao max P.5 mmHg LV V1 max P.2 mmHg Ao V2 mean: 150.6 cm/sec LV V1 mean P.3 mmHg Ao mean P.0 mmHg LV V1 mean: 73.2 cm/sec Ao V2 VTI: 46.8 cm LV V1 VTI: 23.0 cm SANDEEP(I,D): 2.1 cm2 SANDEEP(V,D): 2.0 cm2 PA V2 max: 93.9 cm/sec TR max moo: 285.8 cm/sec TR max P.7 mmHg ECHO/Echo Complete Interpretation Summary The study was technically difficult. Left ventricular systolic function is normal. The estimated ejection fraction is 65 %. Sigmoid septum. The left atrium is mildly enlarged. Mild (1+) mitral valve insufficiency. Trivial tricuspid valve insufficiency. Mild diffuse aortic valve thickening. Moderate focal aortic valve calcification. Trivial aortic valve insufficiency. Trivial pulmonic valve insufficiency. Mildly dilated aortic root. Trivial pericardial effusion. There are no echocardiographic indications of cardiac tamponade. Right ventricular systolic pressure estimated to be 41 mmHg. There is evidence of diastolic dysfunction. Ordering Physician: Rayshawn Owusu Referring Physician: Fina Spicer Performed By: Sheree Parikh, RYAN, RVT
[2020-11-06 19:42] LABS: Absolute Lymphocyte Count 0.48 X10^3/uL (0.83-4.51); Absolute Neutrophil Count 6.8 X10^3/uL (2.0-7.7); Basophil# 0.02 X10^3/uL; Basophil% 0.2 % (0-1); Eosinophil# 0.12 X10^3/uL; Eosinophils% 1.4 % (0-5); Hemoglobin 9.1 g/dL (13.0-16.5); Lymphocyte # 0.48 X10^3/ul (0.83-4.51); Lymphocyte % 5.7 % (19-41); Mean Corp Hgb Conc 33.7 g/dL (32-36); Mean Corpuscular Hgb 29.4 pg (27.0-32.0); Mean Corpuscular Volume 87.1 fL (80-94); Mean Platelet Vol. 10.5 fl (6.2-12.0); Monocyte# 0.85 X10^3/uL; Monocyte% 10.2 % (0-10); NRBC Flagged by Analyzer 0 % (0-5); Neutrophil # 6.81 X10^3/uL (2.7-7.7); Neutrophil % 81.4 % (47-70); POSITIVE DIFFERENTIAL YES; Platelet Count 306 K/mm3 (150-450); RBC Distribution Width CV 12.1 % (11.6-14.6); RBC Distribution Width SD 39.1 fl (35.1-43.9); White Blood Count 8.4 K/mm3 (4.4-11.0)
[2020-11-06 20:10] LABS: ALB/GLOB Ratio 0.5 RATIO (0.9-2.4); AST(SGOT) 26 U/L (15-37); Alanine Aminotransfer ALT/SGPT 32 U/L (16-61); Albumin, Serum 2.1 g/dL (3.2-5.0); Alkaline Phosphatase 137 U/L (45-117); Anion Gap 6 (5-15); BUN 44 mg/dL (7-18); BUN/Creat Ratio 18.8 RATIO (10-20); Calcium,Total 8.8 mg/dL (8.5-10.1); Chloride 99 mmol/L (98-107); Creatinine, Serum 2.34 mg/dL (0.70-1.30); EST Glomerular Filtration Rate 29 mL/min (>60); Est Glom Filt Rate - Afr Amer 35 mL/min (>60); Glucose 206 mg/dL (74-106); Potassium 3.2 mmol/L (3.5-5.1); Protein, Total 6.1 g/dL (6.4-8.2); Sodium Level 137 mmol/L (136-145)
[2020-11-06 20:41] LABS: Differential Indicated SCAN CRITERIA MET
--- NOTE | 2020-11-06 20:42 | VDLE_ITS ---
Reason For Study: Elevated D-Dimer RIGHT LEFT GSV is normal. GSV is normal. CFV is compressible, spontaneous, competent CFV is compressible, spontaneous, competent, and demonstrates pulsatile venous flow. and demonstrates pulsatile venous flow. FV is compressible, spontaneous, competent FV is compressible, spontaneous, phasic, and demonstrates pulsatile venous flow. competent and demonstrates normal POP V is compressible, spontaneous, competent augmentation. and demonstrates pulsatile venous flow. POP V is compressible, spontaneous, phasic, T/P Trunk is compressible. competent and demonstrates normal PTV is compressible. augmentation. RT PerV is compressible. T/P Trunk is compressible. Procedure PTV is compressible. This is a venous duplex using B-mode, color LT PerV is compressible. flow and spectral Doppler. Exam performed portable in patient room. A preliminary report was called and/or faxed to [facility]ri[facility]. VL/Venous Duplex US - Pete Extrem Interpretation Summary No evidence for acute deep venous thrombosis bilateral lower extremities with p atent and compressible bilateral great saphenous veins. Pulsatile venous flow was noted b ilaterally consistent with proximal venous hypertension or obstruction. Clinical correlation would be appropriate. Ordering Physician: Suzette Genao Referring Physician: Fina Spicer Performed By: Marjorie Olvera, MARVELCS, RVT
--- NOTE | 2020-11-06 20:44 | PCM.HOSP.N ---
Hospitalist Note Patient with elevated D-dimer. Given renal function, will place on heparin drip with bolus and request BL LE duplex US. May consider VQ scan also.
[2020-11-06 20:50] LABS: Anisocytosis RARE; Platelet Estimate ADEQUATE (ADEQ); Red Cell Morphology N CHROM NORMAL (NORM C&C)
[2020-11-06 20:51] LABS: Hypochromasia 1+
[2020-11-06] MEDS: Ceftriaxone 1 GM/50 ML BAG IV (21:19)
[2020-11-06] MEDS: Pravastatin 80 MG Tablet PO (21:28)
[2020-11-06 21:35] LABS: Bedside Glucose 197 mg/dL (70-110)
[2020-11-06 22:24] LABS: Partial Thromboplast Time 38.7 Seconds (24.1-36.2)
--- NOTE | 2020-11-06 22:52 | NURSING ---
Channing from Pharmacy indicated no changes from starting rate/bolus of heparin even though baseline PTT is elevated.
[2020-11-06] MEDS: Heparin Injection (Vial) 5,000 UNIT/ML VIAL 4500 UNIT IV (23:04)
[2020-11-06] MEDS: HEPARIN/D5w 25,000 UNITS 25,000 UNITS/250 ML IV.SOLN. 10 UNITS IV (23:08)
[2020-11-06] MEDS: Ipratropium/Albuterol Sulfate 3 ML AMPUL.NEB INHALATION (23:40)
[2020-11-07] VITALS (8 sets, daily range): BP systolic 102–157; BP diastolic 43–73; PULSE 63–86; RESP 14–18; TEMP 36.9–37.3; O2SAT 93–99
[2020-11-07 05:33] LABS: Partial Thromboplast Time 88.2 Seconds (24.1-36.2)
[2020-11-07] MEDS: Insulin Lispro 100 UNIT/ML INSULN.PEN SC ×3 (06:31→21:02)
[2020-11-07 06:36] LABS: Bedside Glucose 217 mg/dL (70-110)
[2020-11-07] MEDS: Finasteride 5 MG Tablet PO (08:19)
[2020-11-07] MEDS: Cholecalciferol (VIT D3) 25 MCG TABLET (1,000 UNITS) PO (08:19)
[2020-11-07] MEDS: Tamsulosin HCl 0.4 MG Capsule PO (08:19)
[2020-11-07] MEDS: amLODIPine 10 MG Tablet PO (08:19)
[2020-11-07] MEDS: Docusate Sodium 100 MG Capsule 200 MG PO (08:19)
[2020-11-07] MEDS: Calcium Carb/Vitamin D 1 TABLET Tablet 2 TABLET PO ×2 (08:19→21:04)
[2020-11-07] MEDS: Multivitamins,Therapeutic Tablet 1 TABLET PO (08:20)
[2020-11-07] MEDS: Folic Acid 1 MG Tablet 0.5 MG PO ×2 (08:20→16:44)
[2020-11-07] MEDS: Multivitamin (Healthy Eyes) Capsule 1 CAP PO ×2 (08:20→21:04)
[2020-11-07] MEDS: predniSONE 5 MG Tablet PO (08:20)
--- NOTE | 2020-11-07 08:28 | NURSING ---
ALL MEDS GIVEN THIS AM PT TAKES AT HOME
--- NOTE | 2020-11-07 09:32 | NURSING ---
ECHO BEING DONE AT THIS TIME
[2020-11-07 12:25] LABS: Bedside Glucose 205 mg/dL (70-110)
--- NOTE | 2020-11-07 13:18 | CON.PCM.CC_ITS ---
Assessment & Plan Assessment/Plan (1) Acute hypoxemic respiratory failure: PLAN: RECOMMENDATIONS: 1. Wean supplemental oxygen to maintain saturations at or above 90%. 2. Encourage aggressive bronchopulmonary hygiene with incentive spirometer and PEP therapy. 3. Await results of echocardiogram. 4. Check troponin and BNP. 5. Continue scheduled bronchodilator therapy. 6. Continue systemic anticoagulation, pending completion of lower extremity Doppler study. IMPRESSIONS: 1. Acute hypoxemic respiratory failure Likely multifactorial in etiology. The patient most likely has underlying chronic lung disease, including possible COPD, that has never been fully previously worked up or managed. In addition, there is evidence of right upper lobe groundglass changes along with bilateral pleural effusions. Therefore, it is reasonable to continue the patient on empiric antimicrobials. I agree with continuing scheduled bronchodilator therapy. His echocardiogram read is currently pending. Given his history of coronary artery disease, will also check a troponin and BNP. However, our ability to volume optimize the patient with diuretic therapy will be limited by his renal function. Continue the patient on systemic anticoagulation until lower extremity Doppler studies are completed. Wean supplemental oxygen to maintain saturations at or above 90%. Encourage incentive spirometer use and mobilize patient as tolerated. Orders have been placed for bronchopulmonary hygiene in the form of PEP therapy and incentive spirometer. 2. Chronic tobacco dependency I personally spent 4 minutes discussing the deleterious effects of continued tobacco use with the patient, including modalities which could be utilized to achieve a smoke-free lifestyle. The patient does have a 50+ pack year smoking history. I would recommend that at a minimum he follow-up with the pulmonary medicine clinic after discharge that baseline PFTs can be obtained. In the interim, the patient will be continued on scheduled bronchodilators. This note was generated with [employer] dictation software. It may contain incorrect words, spelling, and punctuation that were not noted in checking the note before signing. HPI Consult Data Date of Consult: 11/08/20 HPI Narrative Reason for Consultation: Acute hypoxemic respiratory failure HPI Narrative: The patient is a 74-year-old male, with a history as outlined below, who presented to the emergency department on November 04 with complaints of generalized weakness, dizziness and shortness of breath. The patient does have an approximate [id number] smoking history and continues to smoke 0.25 packs of cigarettes per day. He has never been evaluated by a scraper meat, nor does he utilize any supplemental oxygen at his baseline. Despite this, the patient does report that he was told 10 to 15 years ago that he had COPD. On presentation to the emergency department, the patient was noted to be febril e, hypertensive and tachypneic. He was initially documented to be saturating in the mid 90s on 2 L/min via nasal cannula. Laboratory evaluation revealed a white blood cell count of 12,000. Chemistry profile was notable for creatinine of 2.59. The patient was initially placed on antimicrobials and admitted to the medical surgical floor for further management. The patient's oxygenation status has slowly worsened over the course of his hospitalization. Bronchodilator therapy was not initiated until yesterday. He is currently documented to be overall net +5 L for the hospital admission. No ncontrasted chest CT obtained yesterday revealed background emphysema with upper lobe bronchiectasis and groundglass opacities within the right upper lobe. Moderate bilateral pleural effusions were also noted. The patient did have an elevated D-dimer level, for which lower extremity Doppler studies were ordered. The patient was also placed on therapeutic Lovenox. [facility] Medical History (Updated 11/07/20 @ 13:[address] 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 Mixed hyperlipidemia Nicotine abuse Osteoarthritis Prostate disease Sleep apnea Smoker Vision problem Wears hearing aid in both ears Home Medications aspirin 81 mg tablet,delayed release 81 mg PO QDAY tab 06/15/17 [History Last Taken Unknown] gabapentin 300 mg capsule 300 mg PO TID 06/15/17 [History Last Taken Unknown] hydrochlorothiazide 25 mg tablet 25 mg PO QDAY tab 06/15/17 [History Last Taken Unknown] tamsulosin 0.4 mg capsule 0.4 mg PO QDAY 06/15/17 [History Last Taken Unknown] amlodipine 5 mg tablet 5 mg PO QDAY 06/16/17 [History Last Taken Unknown] finasteride 5 mg tablet 5 mg PO QDAY 06/16/17 [History Last Taken Unknown] lisinopril 40 mg tablet 40 mg PO QDAY 06/16/17 [History Last Taken Unknown] multivitamin 1 tab PO QDAY 06/16/17 [History Last Taken Unknown] insulin lispro 200 unit/mL (3 mL) subcutaneous pen 30 unit SC QAC ml 05/17/18 [History Last Taken Unknown] calcium citrate 315 mg-vitamin D3 5 mcg (200 unit) tablet 2 tab PO BID 02/15/19 [History Last Taken Unknown] cholecalciferol (vitamin D3) 25 mcg (1,000 unit) capsule 1,000 unit PO DAILY 02/15/19 [History Last Taken Unknown] colestipol 1 gram tablet 1 g PO BID tab 02/15/19 [History Last Taken Unknown] docusate sodium 100 mg capsule 200 mg PO DAILY cap 02/15/19 [History Last Taken Unknown] folic acid 400 mcg tablet 400 mcg PO BID tab 02/15/19 [History Last Taken Unknown] vitamins A,C,X-swjz-yikazi 14,320 unit-226 mg-200 unit capsule 1 cap PO BID 02/15/19 [History Last Taken Unknown] insulin glargine 100 unit/mL (3 mL) subcutaneous pen 20 unit SC DAILY ml 05/18/20 [History Last Taken Unknown] prednisone 5 mg tablet 5 mg PO DAILY tab 05/18/20 [History Last Taken Unknown] pravastatin 40 mg tablet 80 mg PO QDAY tab 10/05/20 [History Last Taken Unknow n] Allergy/AdvReac Type Severity Reaction Status Date / Time No Known Allergies Allergy Verified 11/03/20 20:41 Family History Father Diabetes Hypertension Family history of hyperlipidemia Asthma Kidney disease Mother Diabetes Brother Cancer Throat cancer Brother CAD (coronary artery disease) Myocardial infarction, Onset Age: 52 Sister Family history of hyperlipidemia Hypertension Diabetes Unknown Alcoholism Arthritis Depression Diabetes Hypertension Hyperlipidemia Osteoporosis Respiratory disease Pancreatic cancer Other Family history of hypertension Surgical History Fracture of left patella Fracture of left upper extremity History of bilateral inguinal hernia repair (~2007) History of colonoscopy (~2013) History of hemorrhoidectomy (~2000) History of hernia repair (~1991) stent replacement for right sided kidney stome Wrist fracture, bilateral Social History Smoking Status: Current some day smoker tobacco type: cigarettes how long ago did patient quit smokin alcohol intake: current alcohol intake frequency: a few times a month substance use type: does not use caffeine: Yes Type: coffee Number of servings: 2 what type of physical activity do you participate in: none seatbelt use: sometimes do you feel safe at home: Yes ROS Constitutional Constitutional: Reports fatigue and malaise Eyes Eyes: Denies blurry vision or change in vision ENT HEENT: Reports dizziness; Denies headache(s) Cardiovascular Cardiovascular: Reports dyspnea Respiratory/Chest Respiratory/Chest: Reports chest tightness and cough Gastrointestinal Gastrointestinal: Denies abdominal pain, diarrhea, nausea or vomiting Genitourinary Genitourinary: Denies difficulty urinating Musculoskeletal Musculoskeletal: Denies arthralgias or back pain Integumentary Integumentary: Denies lesions, rash or skin ulcer Neurologic Neurologic: Denies abnormal gait or abnormal speech Psychiatric Psychiatric: Denies anxiety or depression Endocrine Endocrinology: Reports fatigue Hematologic/Lymphatic Hematologic/Lymphatic: Denies easy bleeding or easy bruising Physical Exam Const alert and no apparent distress General Appearance: cooperative HEENT normocephalic, head/scalp atraumatic and moist oral mucous membranes Eyes PERRL, EOMs intact bilaterally and conjunctivae normal Neck supple General: trachea midline Resp normal respiratory effort Auscultation: diminished lung sounds; Negative for rales, rhonchi or wheezes Cardio regular rate and regular rhythm GI normal to inspection, nondistended, normoactive bowel sounds Extremity no clubbing, cyanosis or edema Skin no rashes or lesions noted Neuro no focal motor deficits Psych Mood & Affect: flat affect Medical Records Data Medical Nutrition Assessment Dietitian: Nutrition Therapy Diagnosis Start: 11/04/20 10:43 Freq: Status: Active Protocol: Document 11/04/20 11:06 BP (Rec: 11/04/20 11:06 BP [id number]) Nutrition Malnutrition Evidence of Malnutrition Exists Yes Malnutrition (severe): Social/Behavioral/ Environmental Evidenced By Suboptimal Energy Intake ( Severe),Weight Loss (Severe) Clinical Problem Acute Disease or Injury Related Malnutrition Etiology Moderate malnutrition in the context of social/behavioral/ environmental circumstances related to inadequate oral intake and lack of motivation to consume sufficient energy to meet estimated nutritional needs Signs/Symptoms as evidenced by pt report increased stress in life resulting in decreased intake consuming </=75% energy intake at meals compared to estimated needs x >/=1 month, unintentional wt loss 9% x 2 months. Status Active Problem Recommendation Dietitian Recommendations/Changes Will provide Cardiac CHO consistent diet without calorie restriction related to s/s of malnutrition. Continue Glucerna 120 ml 4x/ day medpass- will provide ensure pudding or magic cup with pt meals for additional mike/protein if consumed. Lab / Micro Data Result Diagrams: 11/06/20 19:30 11/07/20 05:08 Labs: Laboratory Results - last 24 hr 11/06/20 16:46: POC Glucose 187 H 11/06/20 19:30: D-Dimer Quant (PE/DVT) 3.80 H* 11/06/20 19:30: WBC 8.4, RBC 3.10 L, Hgb 9.1 L, Hct 27.0 L, MCV 87.1, MCH 29.4, MCHC 33.7, RDW Std Deviation 39.1, RDW Coeff of Russell 12.1, Plt Count 306, MPV 10.5, Immature Gran % (Auto) 1.100 H, Neut % (Auto) 81.4 H, Lymph % (Auto) 5.7 L , [place] % (Auto) 10.2 H, Eos % (Auto) 1.4, Baso % (Auto) 0.2, Absolute Neuts (auto) 6.8, Absolute Lymphs (auto) 0.48 L, Nucleated RBC % 0, Differential Co mment SEE COMMENT, Platelet Estimate ADEQUATE, RBC Morphology N CHROM, Hypochromasia 1+, Anisocytosis RARE 11/06/20 19:30: Sodium 137, Potassium 3.2 L, Chloride 99, Carbon Dioxide 32.0, Anion Gap 6, BUN 44 H, Creatinine 2.34 H, Estim Creat Clear Calc 25.00, Est GFR (MDRD) Af Amer 35 L, Est GFR (MDRD) Non-Af 29 L, BUN/Creatinine Ratio 18.8, Glucose 206 H, Calcium 8.8, Total Bilirubin 0.30, AST 26, ALT 32, Alkaline Phosphatase 137 H, Total Protein 6.1 L, Albumin 2.1 L, Globulin 4.0, Albumin/Globulin Ratio 0.5 L 11/06/20 21:25: POC Glucose 197 H 11/06/20 22:00: PT 13.0, INR 1.0, APTT 38.7 H 11/07/20 05:08: APTT 88.2 H 11/07/20 06:30: POC Glucose 217 H 11/07/20 11:57: POC Glucose 205 H Micro: Microbiology 11/06/20 08:15 Stool Enteric Bacteriology - Final Radiology Impression Chest X-Ray 11/06/20 17:12 IMPRESSION: Patchy infiltrates in the right upper lobe and left lower lobe with blunting of both costophrenic angles. Electronically Signed: Elvis Green MD at 20:28 EDT , Service support , Chest CT 11/06/20 18:28 IMPRESSION: Evidence of bilateral effusions, chronic lung disease, groundglass opacity and focal consolidation versus mass. Pneumonia should be excluded clinically. Malignancy is not excluded especially given poorly characterized mediastinal lymphadenopathy. Consider diagnostic thoracentesis for further evaluation if clinically indicated. Electronically Signed: Hoang Brian MD at 19:44 EDT Tel , Service support , Charges/Coding Visit Charges Inpatient E&M: 08515 Init Hosp L3 Behavior Interventions Behavior Intervention: 71714 Smoking Cessation 3-10 min
[2020-11-07] MEDS: Enoxaparin 80 MG/0.8 ML Syringe 70 MG SC (13:53)
[2020-11-07 14:45] LABS: Anion Gap 6 (5-15); BUN 42 mg/dL (7-18); BUN/Creat Ratio 19.4 RATIO (10-20); Calcium,Total 8.3 mg/dL (8.5-10.1); Chloride 100 mmol/L (98-107); Creatinine, Serum 2.17 mg/dL (0.70-1.30); EST Glomerular Filtration Rate 32 mL/min (>60); Est Glom Filt Rate - Afr Amer 38 mL/min (>60); Estimated Creatinine Clearance 26.95 ml/min; Glucose 201 mg/dL (74-106); Potassium 3.2 mmol/L (3.5-5.1); Sodium Level 137 mmol/L (136-145); Troponin-I HS 29.7 pg/mL (3.0-78.5)
[2020-11-07 14:46] LABS: BNP,B-Type NATRIURETIC PEPTIDE 348.2 pg/mL (0-100)
[2020-11-07] MEDS: guaiFENesin 10 ML UDC (200MG/10ML) 20 ML PO (16:52)
[2020-11-07 17:15] LABS: Bedside Glucose 93 mg/dL (70-110)
--- NOTE | 2020-11-07 18:45 | PN.HOSP_ITS ---
Subjective Subjective Patient was seen and examined today, his venous duplex scan of his lower extremities was negative for DVT, I have decided to stop the patient's full anticoagulation at this time. I talked briefly with pulmonary medicine about his care today. Patient's echocardiogram showed a normal EF with evidence of mild pulmonary hypertension. I talked with the patient's who was in the room at the time of my examination today. Objective Data Objective Data Vital Signs: Vital Signs Temp Pulse Resp BP Pulse Ox 98.5 F 75 18 144/67 H 94 11/07/20 14:00 11/07/20 14:00 11/07/20 14:00 11/07/20 14:00 11/07/20 16:55 Oxygen Flow Rate (L/min) [ 94 AMBULATING with Oxygen #1] Oxygen Flow Rate (L/min) 5 Oxygen Delivery Method Nasal Cannula Weight: 65.8 kg Body Mass Index (BMI) 22.0 Intake & Output: Intake and Output for Last 24 Hours 11/05/20 11/06/20 11/07/20 23:59 23:59 23:59 Intake Total 4132.50 / 4282.50 1575 / 1775 767.83 / 767.83 Output Total 650 / 1175 2050 / 2300 1050 / 1050 Balance 3482.50 / 3107.50 -475 / -525 -282.17 / -282.17 Medical Nutrition Assessment Dietitian: Nutrition Therapy Diagnosis Start: 11/04/20 10:4 3 Freq: Status: Active Protocol: Document 11/04/20 11:06 BP (Rec: 11/04/20 11:06 BP [id number]) Nutrition Malnutrition Evidence of Malnutrition Exists Yes Malnutrition (severe): Social/Behavioral/ Environmental Evidenced By Suboptimal Energy Intake ( Severe),Weight Loss (Severe) Clinical Problem Acute Disease or Injury Related Malnutrition Etiology Moderate malnutrition in the context of social/behavioral/ environmental circumstances related to inadequate oral intake and lack of motivation to consume sufficient energy to meet estimated nutritional needs Signs/Symptoms as evidenced by pt report increased stress in life resulting in decreased intake consuming </=75% energy intake at meals compared to estimated needs x >/=1 month, unintentional wt loss 9% x 2 months. Status Active Problem Recommendation Dietitian Recommendations/Changes Will provide Cardiac CHO consistent diet without calorie restriction related to s/s of malnutrition. Continue Glucerna 120 ml 4x/ day [employer]- will provide ensure pudding or magic cup with pt meals for additional mike/protein if consumed. Lab / Micro Data Result Diagrams: 11/06/20 19:30 11/07/20 05:08 Labs: Laboratory Results - last 24 hr 11/06/20 19:30: D-Dimer Quant (PE/DVT) 3.80 H* 11/06/20 19:30: WBC 8.4, RBC 3.10 L, Hgb 9.1 L, Hct 27.0 L, MCV 87.1, MCH 29.4, MCHC 33.7, RDW Std Deviation 39.1, RDW Coeff of Russell 12.1, Plt Count 306, MPV 10.5, Immature Gran % (Auto) 1.100 H, Neut % (Auto) 81.4 H, Lymph % (Auto) 5.7 L , Gonzales % (Auto) 10.2 H, Eos % (Auto) 1.4, Baso % (Auto) 0.2, Absolute Neuts (auto) 6.8, Absolute Lymphs (auto) 0.48 L, Nucleated RBC % 0, Differential Comment SEE COMMENT, Platelet Estimate ADEQUATE, RBC Morphology N CHROM, Hypochromasia 1+, Anisocytosis RARE 11/06/20 19:30: Sodium 137, Potassium 3.2 L, Chloride 99, Carbon Dioxide 32.0, Anion Gap 6, BUN 44 H, Creatinine 2.34 H, Estim Creat Clear Calc 25.00, Est GFR (MDRD) Af Amer 35 L, Est GFR (MDRD) Non-Af 29 L, BUN/Creatinine Ratio 18.8, Glucose 206 H, Calcium 8.8, Total Bilirubin 0.30, AST 26, ALT 32, Alkaline Phosphatase 137 H, Total Protein 6.1 L, Albumin 2.1 L, Globulin 4.0, Albumin/Globulin Ratio 0.5 L 11/06/20 21:25: POC Glucose 197 H 11/06/20 22:00: PT 13.0, INR 1.0, APTT 38.7 H 11/07/20 05:08: APTT 88.2 H 11/07/20 05:08: Sodium 137, Potassium 3.2 L, Chloride 100, Carbon Dioxide 31.0, Anion Gap 6, BUN 42 H, Creatinine 2.17 H, Estim Creat Clear Calc 26.95, Est GFR (MDRD) Af Amer 38 L, Est GFR (MDRD) Non-Af 32 L, BUN/Creatinine Ratio 19.4, Glucose 201 H, Calcium 8.3 L, Troponin I High Sens 29.7 11/07/20 05:08: B-Natriuretic Peptide 348.2 H 11/07/20 06:30: POC Glucose 217 H 11/07/20 11:57: POC Glucose 205 H 11/07/20 16:39: POC Glucose 93 Micro: Microbiology 11/07/20 11:10 Mucosa - Nasopharyngeal Respiratory Panel (PCR) - Final 11/06/20 08:15 Stool Enteric Bacteriology - Final 11/03/20 20:48 Urine, Clean Catch Urine Culture - Final Culture exhibits no growth. 11/03/20 21:40 Blood Culture (Wb) - Anticubital Right Blood Culture - Preliminary No growth in 48 hours. 11/03/20 21:35 Blood Culture (Wb) - Anticubital Left Blood Culture - Prelimi nary No growth in 48 hours. 11/03/20 20:48 Urine, Clean Catch Legionella Antigen - Final 11/03/20 20:48 Urine, Clean Catch Streptococcus pneumoniae Antigen (M - Fin al 11/03/20 21:15 Mucosa - Nose SARS-CoV-2 Antigen (Rapid) - Final Radiography Diagnostic Testing: Radiology Impression Chest X-Ray 11/06/20 17:12 IMPRESSION: Patchy infiltrates in the right upper lobe and left lower lobe with blunting of both costophrenic angles. Electronically Signed: Elvis Green MD at 20:28 EDT , Service support , Chest CT 11/06/20 18:28 IMPRESSION: Evidence of bilateral effusions, chronic lung disease, groundglass opacity and focal consolidation versus mass. Pneumonia should be excluded clinically. Malignancy is not excluded especially given poorly characterized mediastinal lymphadenopathy. Consider diagnostic thoracentesis for further evaluation if clinically indicated. Electronically Signed: Hoang Brian MD at 19:44 EDT Tel , Service support , Echocardiogram 11/06/20 18:45 Interpretation Summary The study was technically difficult. Left ventricular systolic function is normal. The estimated ejection fraction is 65 %. Sigmoid septum. The left atrium is mildly enlarged. Mild (1+) mitral valve insufficiency. Trivial tricuspid valve insufficiency. Mild diffuse aortic valve thickening. Moderate focal aortic valve calcification. Trivial aortic valve insufficiency. Trivial pulmonic valve insufficiency. Mildly dilated aortic root. Trivial pericardial effusion. There are no echocardiographic indications of cardiac tamponade. Right ventricular systolic pressure estimated to be 41 mmHg. There is evidence of diastolic dysfunction. Ordering Physician: Rayshawn Owusu Referring Physician: Fina Spicer Performed By: Sheree Parikh RDCS, RVT Venous Doppler Study 11/06/20 20:42 Interpretation Summary No evidence for acute deep venous thrombosis bilateral lower extremities with patent and compressible bilateral great saphenous veins. Pulsatile venous flow was noted bilaterally consistent with proximal venous hypertension or obstruction. Clinical correlation would be appropriate. Ordering Physician: Suzette Genao Referring Physician: Fina Spicer Performed By: Marjorie Olvera RDCS, RVT Physical Exam Const alert, oriented x3, no apparent distress and average body habitus HEENT head/scalp atraumatic and moist oral mucous membranes Head and Scalp: normocephalic Eyes PERRL and EOMs intact bilaterally Neck supple and no JVD Resp normal respiratory effort, no retractions, no use of accessory muscles and clear to auscultation bilaterally Resp Narrative: Breath sounds are distant bilaterally Cardio regular rate, regular rhythm, S1 normal heart sound, S2 normal heart sound, no gallops and no clicks GI normal to inspection, nondistended, normoactive bowel sounds, soft to palpation, non-tender and non-distended Extremity normal to inspection and no clubbing, cyanosis or edema Skin no rashes or lesions noted, no wounds and no jaundice Neuro oriented x3, CN's II-XII intact bilaterally and no focal motor deficits Sensorium / Orientation: awake Psych affect normal Assessment & Plan Assessment/Plan (1) Acute hypoxemic respiratory failure: (2) Community acquired pneumonia: QUALIFIERS: Laterality: right Lung location: upper lobe of lung Qualified Code(s): J18.9 - Pneumonia, unspecified organism PLAN: 1. 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 Charges/Coding Visit Charges Inpatient E&M: 81462 Subs Hosp L2
[2020-11-07] MEDS: Ipratropium/Albuterol Sulfate 3 ML AMPUL.NEB INHALATION (18:58)
[2020-11-07] MEDS: Ceftriaxone 1 GM/50 ML BAG IV (21:02)
[2020-11-07] MEDS: Pravastatin 80 MG Tablet PO (21:04)
[2020-11-07 21:15] LABS: Bedside Glucose 188 mg/dL (70-110)
[2020-11-08] VITALS (12 sets, daily range): BP systolic 140–166; BP diastolic 50–80; PULSE 72–85; RESP 16–18; TEMP 36.7–36.9; O2SAT 91–97
[2020-11-08] MEDS: Insulin Lispro 100 UNIT/ML INSULN.PEN SC ×4 (06:23→21:24)
[2020-11-08] MEDS: Enoxaparin 30 MG/0.3 ML Syringe SC (06:23)
[2020-11-08 06:30] LABS: Bedside Glucose 167 mg/dL (70-110)
[2020-11-08] MEDS: Ipratropium/Albuterol Sulfate 3 ML AMPUL.NEB INHALATION ×3 (06:47→19:20)
[2020-11-08] MEDS: Aspirin E.C. 81 MG Tablet PO (08:31)
[2020-11-08] MEDS: Folic Acid 1 MG Tablet 0.5 MG PO ×2 (08:31→17:04)
[2020-11-08] MEDS: Multivitamins,Therapeutic Tablet 1 TABLET PO (08:32)
[2020-11-08] MEDS: predniSONE 5 MG Tablet PO (08:32)
[2020-11-08] MEDS: Docusate Sodium 100 MG Capsule 200 MG PO (08:32)
[2020-11-08] MEDS: amLODIPine 10 MG Tablet PO (08:33)
[2020-11-08] MEDS: Multivitamin (Healthy Eyes) Capsule 1 CAP PO ×2 (08:33→21:16)
[2020-11-08] MEDS: Calcium Carb/Vitamin D 1 TABLET Tablet 2 TABLET PO ×2 (08:33→21:16)
[2020-11-08] MEDS: Tamsulosin HCl 0.4 MG Capsule PO (08:33)
[2020-11-08] MEDS: Finasteride 5 MG Tablet PO (08:34)
[2020-11-08] MEDS: Cholecalciferol (VIT D3) 25 MCG TABLET (1,000 UNITS) PO (08:34)
[2020-11-08] MEDS: Glucerna Shake 120 ML LIQUID PO ×3 (08:43→17:09)
--- NOTE | 2020-11-08 09:10 | PN.CC_ITS ---
Assessment & Plan Assessment/Plan (1) Acute hypoxemic respiratory failure: PLAN: RECOMMENDATIONS: 1. Wean supplemental oxygen to maintain saturations at or above 90%. 2. Encourage aggressive bronchopulmonary hygiene with incentive spirometer and PEP therapy. 3. Continue scheduled bronchodilator therapy. 4. Potassium repletion as ordered. 5. Gentle diuresis. 6. Recommend outpatient pulmonary follow up. IMPRESSIONS: 1. Acute hypoxemic respiratory failure Likely multifactorial in etiology. The patient most likely has underlying chronic lung disease, including possible COPD, that has never been fully previously worked up or managed. In addition, there is evidence of right upper lobe groundglass changes along with bilateral pleural effusions. Therefore, it is reasonable to continue the patient on empiric antimicrobials to complete a 7 day treatment course. Continue scheduled bronchodilator therapy. Wean supplemental oxygen to maintain saturations at or above 90%. Encourage incentive spirometer use and mobilize patient as tolerated. Continue bronchopulmonary hygiene in the form of PEP therapy and incentive spirometer. Given improvement in renal function, will challenge the patient with lasix. 2. Hypokalemia Electrolyte repletion as ordered. Recheck levels in the morning. 3. Chronic tobacco dependency Tobacco cessation counseling provided. The patient does have a 50+ pack year smoking history. I would recommend that at a minimum he follow-up with the pulmonary medicine clinic after discharge that baseline PFTs can be obtained. In the interim, the patient will be continued on scheduled bronchodilators. This note was generated with [employer] dictation software. It may contain incorrect words, spelling, and punctuation that were not noted in checking the note before signing. Subjective Subjective The patient was seen and examined at the bedside this morning. Events from the last 24 hours have been reviewed. The patient is currently afebrile, hemodynamically stable and maintaining appropriate oxygen saturations on 5 L/min via nasal cannula. The patient is documented to be overall net +5.7 L for the hospital admission. Creatinine continues to improve. Potassium is low at 3.2. Objective Data Objective Data The patient's most recent lab work, culture data and imaging studies have all b een personally reviewed. Surface echocardiogram revealed normal LV size with an ejection fraction of 65% and evidence of diastolic dysfunction. Right ventricular systolic pressure was estimated to be 41 mmHg. Blood and urine cultures have not demonstrated any growth to date. Strep and urine Legionella antigens were negative. Rapid coronavirus antigen testing was negative. Respiratory viral panel was negative. Vital Signs: Vital Signs Temp Pulse Resp BP Pulse Ox 98.5 F 79 18 146/59 H 94 11/08/20 08:25 11/08/20 08:25 11/08/20 08:25 11/08/20 08:25 11/08/20 08:25 Oxygen Flow Rate (L/min) [ 94 AMBULATING with Oxygen #1] Oxygen Flow Rate (L/min) 6 Oxygen Delivery Method Nasal Cannula Weight: 65.8 kg Body Mass Index (BMI) 22.0 Intake & Output: Intake and Output for Last 24 Hours 11/06/20 11/07/20 11/08/20 23:59 23:59 23:59 Intake Total 1575 / 1775 1249.83 / 1249.83 120 / 120 Output Total 2050 / 2300 1200 / 1200 150 / 150 Balance -475 / -525 49.83 / 49.83 -30 / -30 Medical Nutrition Assessment Dietitian: Nutrition Therapy Diagnosis Start: 11/04/20 10:43 Freq: Status: Active Protocol: Document 11/04/20 11:06 BP (Rec: 11/04/20 11:06 BP [id number]) Nutrition Malnutrition Evidence of Malnutrition Exists Yes Malnutrition (severe): Social/Behavioral/ Environmental Evidenced By Suboptimal Energy Intake ( Severe),Weight Loss (Severe) Clinical Problem Acute Disease or Injury Related Malnutrition Etiology Moderate malnutrition in the context of social/behavioral/ environmental circumstances related to inadequate oral intake and lack of motivation to consume sufficient energy to meet estimated nutritional needs Signs/Symptoms as evidenced by pt report increased stress in life resulting in decreased intake consuming </=75% energy intake at meals compared to estimated needs x >/=1 month, unintentional wt loss 9% x 2 months. Status Active Problem Recommendation Dietitian Recommendations/Changes Will provide Cardiac CHO consistent diet without calorie restriction related to s/s of malnutrition. Continue Glucerna 120 ml 4x/ day medpass- will provide ensure pudding or magic cup with pt meals for additional mike/protein if consumed. Lab / Micro Data Attestation: I reviewed the patient's lab results. Result Diagrams: 11/06/20 19:30 11/08/20 09:36 Labs: Laboratory Results - last 24 hr 11/07/20 05:08: Sodium 137, Potassium 3.2 L, Chloride 100, Carbon Dioxide 31.0, Anion Gap 6, BUN 42 H, Creatinine 2.17 H, Estim Creat Clear Calc 26.95, Est GFR (MDRD) Af Amer 38 L, Est GFR (MDRD) Non-Af 32 L, BUN/Creatinine Ratio 19.4, Glucose 201 H, Calcium 8.3 L, Troponin I High Sens 29.7 11/07/20 05:08: B-Natriuretic Peptide 348.2 H 11/07/20 11:57: POC Glucose 205 H 11/07/20 16:39: POC Glucose 93 11/07/20 21:01: POC Glucose 188 H 11/08/20 06:22: POC Glucose 167 H Micro: Microbiology 11/07/20 11:10 Mucosa - Nasopharyngeal Respiratory Panel (PCR) - Final 11/06/20 08:15 Stool Enteric Bacteriology - Final 11/03/20 20:48 Urine, Clean Catch Urine Culture - Final Culture exhibits no growth. 11/03/20 21:40 Blood Culture (Wb) - Anticubital Right Blood Culture - Preliminary No growth in 48 hours. 11/03/20 21:35 Blood Culture (Wb) - Anticubital Left Blood Culture - Preliminary No growth in 48 hours. 11/03/20 20:48 Urine, Clean Catch Legionella Antigen - Final 11/03/20 20:48 Urine, Clean Catch Streptococcus pneumoniae Antigen (M - Final 11/03/20 21:15 Mucosa - Nose SARS-CoV-2 Antigen (Rapid) - Final Radiography Diagnostic Testing: Radiology Impression Echocardiogram 11/06/20 18:45 Interpretation Summary The study was technically difficult. Left ventricular systolic function is normal. The estimated ejection fraction is 65 %. Sigmoid septum. The left atrium is mildly enlarged. Mild (1+) mitral valve insufficiency. Trivial tricuspid valve insufficiency. Mild diffuse aortic valve thickening. Moderate focal aortic valve calcification. Trivial aortic valve insufficiency. Trivial pulmonic valve insufficiency. Mildly dilated aortic root. Trivial pericardial effusion. There are no echocardiographic indications of cardiac tamponade. Right ventricular systolic pressure estimated to be 41 mmHg. There is evidence of diastolic dysfunction. Ordering Physician: Rayshawn Owusu Referring Physician: Fina Spicer Performed By: Sheree Parikh RDCS, RVT Venous Doppler Study 11/06/20 20:42 Interpretation Summary No evidence for acute deep venous thrombosis bilateral lower extremities with patent and compressible bilateral great saphenous veins. Pulsatile venous flow was noted bilaterally consistent with proximal venous hypertension or obstruction. Clinical correlation would be appropriate. Ordering Physician: Suzette Genao Referring Physician: Fina Spicer Performed By: Marjorie Olvera RDCS, RVT Physical Exam Const alert and no apparent distress General Appearance: cooperative HEENT normocephalic, head/scalp atraumatic and moist oral mucous membranes Eyes PERRL, EOMs intact bilaterally and conjunctivae normal Neck supple General: trachea midline Resp normal respiratory effort Auscultation: diminished lung sounds; Negative for rales, rhonchi or wheezes Cardio regular rate and regular rhythm GI normal to inspection, nondistended, normoactive bowel sounds Extremity no clubbing, cyanosis or edema Skin no rashes or lesions noted Neuro no focal motor deficits Psych Mood & Affect: flat affect Charges/Coding Visit Charges Inpatient E&M: 50472 Subs Hosp L2
[2020-11-08 10:16] LABS: Anion Gap 9 (5-15); BUN 42 mg/dL (7-18); BUN/Creat Ratio 21.1 RATIO (10-20); Calcium,Total 8.2 mg/dL (8.5-10.1); Chloride 98 mmol/L (98-107); Creatinine, Serum 1.99 mg/dL (0.70-1.30); EST Glomerular Filtration Rate 35 mL/min (>60); Est Glom Filt Rate - Afr Amer 42 mL/min (>60); Estimated Creatinine Clearance 29.39 ml/min; Glucose 218 mg/dL (74-106); Potassium 3.2 mmol/L (3.5-5.1); Sodium Level 138 mmol/L (136-145)
[2020-11-08 12:11] LABS: Bedside Glucose 235 mg/dL (70-110)
--- NOTE | 2020-11-08 14:23 | CASEMGMT ---
NADEEM VINCENT in to pt room. Pt lying in bed with at bedside. Pt , per pt request, was provided a list of DME providers consistent with the patient?s preferred geographic region, medical needs, and insurance network. The patient?s preferred provider [facility]. NADEEM VINCENT to follow for O2 needs.
[2020-11-08] MEDS: 0.9% Saline Lock 10 ML Syringe IV ×3 (15:48→22:31)
[2020-11-08] MEDS: Potassium Chloride Oral Tablet 20 MEQ 40 MEQ PO ×2 (15:48→17:08)
[2020-11-08] MEDS: Furosemide 40 MG/4 ML Vial IV (15:49)
--- NOTE | 2020-11-08 16:00 | PN.HOSP_ITS ---
Subjective Subjective Patient was seen and examined today, he still requiring 6 L of oxygen via nasal cannula. I talked briefly with his daughter and I talked also with critical care. Critical care give the patient 1 dose of Lasix today. I told the patient's daughter that there was no new finding, he did not have any DVT in his legs. Objective Data Objective Data Vital Signs: Vital Signs Temp Pulse Resp BP Pulse Ox 98.5 F 79 18 140/52 H 93 11/08/20 14:30 11/08/20 14:30 11/08/20 14:30 11/08/20 14:30 11/08/20 15:10 Oxygen Flow Rate (L/min) [ 94 AMBULATING with Oxygen #1] Oxygen Flow Rate (L/min) 6 Oxygen Delivery Method Nasal Cannula Weight: 65.8 kg Body Mass Index (BMI) 22.0 Intake & Output: Intake and Output for Last 24 Hours 11/06/20 11/07/20 11/08/20 23:59 23:59 23:59 Intake Total 1575 / 1775 1249.83 / 1249.83 120 / 120 Output Total 2050 / 2300 1200 / 1200 150 / 150 Balance -475 / -525 49.83 / 49.83 -30 / -30 Medical Nutrition Assessment Dietitian: Nutrition Therapy Diagnosis Start: 11/04/20 10:43 Freq: Status: Active Protocol: Document 11/08/20 15:03 (Rec: 11/08/20 15:03 [id number]) Nutrition Malnutrition Evidence of Malnutrition Exists Yes Malnutrition (severe): Social/Behavioral/ Environmental Evidenced By Suboptimal Energy Intake ( Severe),Weight Loss (Severe) Clinical Problem Acute Disease or Injury Related Malnutrition Etiology Severe malnutrition in the context of social/behavioral/ environmental circumstances related to inadequate oral intake and lack of motivation to consume sufficient energy to meet estimated nutritional needs Signs/Symptoms as evidenced by pt report increased stress in life resulting in decreased intake consuming </=50% energy intake at meals compared to estimated needs x >/=1 month, unintentional wt loss 9% x 2 months. Status Active Problem Recommendation Dietitian Recommendations/Changes Continue consistent carbohydrate cardiac diet. Continue Glucerna 120mL 4x/day medpass. Continue ensure pudding or magic cup with pt meals for additional calories and protein if consumed. Lab / Micro Data Result Diagrams: 11/06/20 19:30 11/08/20 09:36 Labs: Laboratory Results - last 24 hr 11/07/20 16:39: POC Glucose 93 11/07/20 21:01: POC Glucose 188 H 11/08/20 06:22: POC Glucose 167 H 11/08/20 09:36: Sodium 138, Potassium 3.2 L, Chloride 98, Carbon Dioxide 31.0, Anion Gap 9, BUN 42 H, Creatinine 1.99 H, Estim Creat Clear Calc 29.39, Est GFR (MDRD) Af Amer 42 L, Est GFR (MDRD) Non-Af 35 L, BUN/Creatinine Ratio 21.1 H, Glucose 218 H, Calcium 8.2 L 11/08/20 12:00: POC Glucose 235 H Micro: Microbiology 11/07/20 11:10 Mucosa - Nasopharyngeal Respiratory Panel (PCR) - Final 11/06/20 08:15 Stool Enteric Bacteriology - Final 11/03/20 20:48 Urine, Clean Catch Urine Culture - Final Culture exhibits no growth. 11/03/20 21:40 Blood Culture (Wb) - Anticubital Right Blood Culture - Preliminary No growth in 48 hours. 11/03/20 21:35 Blood Culture (Wb) - Anticubital Left Blood Culture - Preliminary No growth in 48 hours. 11/03/20 20:48 Urine, Clean Catch Legionella Antigen - Final 11/03/20 20:48 Urine, Clean Catch Streptococcus pneumoniae Antigen (M - Final 11/03/20 21:15 Mucosa - Nose SARS-CoV-2 Antigen (Rapid) - Final Radiography Diagnostic Testing: Radiology Impression Echocardiogram 11/06/20 18:45 Interpretation Summary The study was technically difficult. Left ventricular systolic function is normal. The estimated ejection fraction is 65 %. Sigmoid septum. The left atrium is mildly enlarged. Mild (1+) mitral valve insufficiency. Trivial tricuspid valve insufficiency. Mild diffuse aortic valve thickening. Moderate focal aortic valve calcification. Trivial aortic valve insufficiency. Trivial pulmonic valve insufficiency. Mildly dilated aortic root. Trivial pericardial effusion. There are no echocardiographic indications of cardiac tamponade. Right ventricular systolic pressure estimated to be 41 mmHg. There is evidence of diastolic dysfunction. Ordering Physician: Rayshawn Owusu Referring Physician: Fina Spicer Performed By: Sheree Parikh RDCS, RVT Venous Doppler Study 11/06/20 20:42 Interpretation Summary No evidence for acute deep venous thrombosis bilateral lower extremities with patent and compressible bilateral great saphenous veins. Pulsatile venous flow was noted bilaterally consistent with proximal venous hypertension or obstruction. Clinical correlation would be appropriate. Ordering Physician: Suzette Genao Referring Physician: Fina Spicer Performed By: Marjorie Olvera RDCS, RVT Physical Exam Narrative Physical Exam Const alert, oriented x3, no apparent distress and average body habitus HEENT head/scalp atraumatic and moist oral mucous membranes Head and Scalp: normocephalic Eyes PERRL and EOMs intact bilaterally Neck supple and no JVD Resp normal respiratory effort, no retractions, no use of accessory muscles and clear to auscultation bilaterally Resp Narrative: Breath sounds are distant bilaterally Cardio regular rate, regular rhythm, S1 normal heart sound, S2 normal heart sound, no gallops and no clicks GI normal to inspection, nondistended, normoactive bowel sounds, soft to palpation, non-tender and non-distended Extremity normal to inspection and no clubbing, cyanosis or edema Skin no rashes or lesions noted, no wounds and no jaundice Neuro oriented x3, CN's II-XII intact bilaterally and no focal motor deficits Sensorium / Orientation: awake Psych affect normal Assessment & Plan Assessment/Plan (1) Acute hypoxemic respiratory failure: (2) Community acquired pneumonia: QUALIFIERS: Laterality: right Lung location: upper lobe of lung Qualified Code(s): J18.9 - Pneumonia, unspecified organism PLAN: 1. Sepsis secondary to community-acquired pneumonia-organism unknown, for now I have decided to keep the patient on his current antibiotic coverage, pulmonary medicine saw the patient today and will participate in his care, patient received 1 dose of IV Lasix today #2 acute hypoxic respiratory failure-patient's pulse ox will be monitored #3 chronic obstructive pulmonary disease-patient will continue on aerosol treatments and Pulmicort aerosols #4 stage IV chronic kidney disease secondary to type 2 diabetes-patient's creatinine is improved #5 essential hypertension #6 type 2 diabetes-continue sliding scale insulin and programmed insulin. Charges/Coding Visit Charges Inpatient E&M: 60751 Subs Hosp L2
[2020-11-08 16:46] LABS: Bedside Glucose 253 mg/dL (70-110)
--- NOTE | 2020-11-08 19:20 | CPS ---
decreased O2 to 5 lpm
[2020-11-08] MEDS: Ceftriaxone 1 GM/50 ML BAG IV (21:08)
[2020-11-08] MEDS: Pravastatin 80 MG Tablet PO (21:16)
[2020-11-09] VITALS (9 sets, daily range): BP systolic 133–154; BP diastolic 55–77; PULSE 78–87; RESP 18–24; TEMP 36.8–37.4; O2SAT 85–100
[2020-11-09 00:45] LABS: Bedside Glucose 242 mg/dL (70-110)
[2020-11-09] MEDS: Insulin Lispro 100 UNIT/ML INSULN.PEN SC ×2 (06:38→12:33)
[2020-11-09] MEDS: Enoxaparin 30 MG/0.3 ML Syringe SC (06:38)
[2020-11-09 06:55] LABS: Bedside Glucose 246 mg/dL (70-110)
[2020-11-09] MEDS: Ipratropium/Albuterol Sulfate 3 ML AMPUL.NEB INHALATION ×2 (07:03→13:54)
--- NOTE | 2020-11-09 07:13 | PN.CC_ITS ---
Assessment & Plan Assessment/Plan (1) Acute hypoxemic respiratory failure: PLAN: RECOMMENDATIONS: 1. Wean supplemental oxygen to maintain saturations at or above 90%. 2. Encourage aggressive bronchopulmonary hygiene with incentive spirometer and PEP therapy. 3. Continue scheduled bronchodilator therapy. 4. Continue antimicrobials to complete 7-day treatment course. 5. Perform walking oximetry study prior to consideration for discharge home. 6. Recommend outpatient pulmonary follow up within 2 weeks of discharge. IMPRESSIONS: 1. Acute hypoxemic respiratory failure Likely multifactorial in etiology. The patient most likely has underlying chronic lung disease, including possible COPD, that has never been fully previously worked up or managed. In addition, there is evidence of right upper lobe groundglass changes along with bilateral pleural effusions. Therefore, it is reasonable to continue the patient on empiric antimicrobials to complete a 7 day treatment course. Continue scheduled bronchodilator therapy. Wean sup plemental oxygen to maintain saturations at or above 90%. Encourage incentive spirometer use and mobilize patient as tolerated. Continue bronchopulmonary hygiene in the form of PEP therapy and incentive spirometer. 2. Chronic tobacco dependency Tobacco cessation counseling provided. The patient does have a 50+ pack year smoking history. I would recommend that at a minimum he follow-up with the pulmonary medicine clinic after discharge that baseline PFTs can be obtained. In the interim, the patient will be continued on scheduled bronchodilators. This note was generated with Qzzr dictation software. It may contain incorrect words, spelling, and punctuation that were not noted in checking the note before signing. Subjective Subjective The patient was seen and examined at the bedside this morning. Events from the last 24 hours have been reviewed. The patient is currently afebrile, hemodynamically stable and maintaining appropriate oxygen saturations on 5 L/min via nasal cannula. Although nursing orders were provided to wean the patient's supplemental oxygen for saturations above 90%, this has not occurred overnight. The patient is currently documented to be overall net +5.2 L for the hospital admission. On my review of the patient this morning he was sitting at the bedside. Although he was being maintained on 5 L/min, his continuous pulse oximetry was reading 99%. Therefore, I personally weaned his oxygen to 2 L/min and the patient was maintaining saturations of 98%. Objective Data Objective Data The patient's most recent lab work, culture data and imaging studies have all been personally reviewed. Surface echocardiogram revealed normal LV size with an ejection fraction of 65% and evidence of diastolic dysfunction. Right ventricular systolic pressure was estimated to be 41 mmHg. Blood and urine cultures have not demonstrated any growth to date. Strep and urine Legionella a ntigens were negative. Rapid coronavirus antigen testing was negative. Respiratory viral panel was negative. Vital Signs: Vital Signs Temp Pulse Resp BP Pulse Ox 98.2 F 78 18 150/56 H 100 11/09/20 02:59 11/09/20 02:59 11/09/20 02:59 11/09/20 02:59 11/09/20 03:00 Oxygen Flow Rate (L/min) [ 94 AMBULATING with Oxygen #1] Oxygen Flow Rate (L/min) 5 Oxygen Delivery Method Nasal Cannula Weight: 65.8 kg Body Mass Index (BMI) 22.0 Intake & Output: Intake and Output for Last 24 Hours 11/07/20 11/08/20 11/09/20 23:59 23:59 23:59 Intake Total 1249.83 / 1249.83 907.50 / 1227.50 420 / 420 Output Total 1200 / 1200 150 / 900 1700 / 1700 Balance 49.83 / 49.83 757.50 / 327.50 -1280 / -1280 Medical Nutrition Assessment Dietitian: Nutrition Therapy Diagnosis Start: 11/04/20 10:43 Freq: Status: Active Protocol: Document 11/08/20 15:03 (Rec: 11/08/20 15:03 AG [id number]) Nutrition Malnutrition Evidence of Malnutrition Exists Yes Malnutrition (severe): Social/Behavioral/ Environmental Evidenced By Suboptimal Energy Intake ( Severe),Weight Loss (Severe) Clinical Problem Acute Disease or Injury Related Malnutrition Etiology Severe malnutrition in the context of social/behavioral/ environmental circumstances related to inadequate oral intake and lack of motivation to consume sufficient energy to meet estimated nutritional needs Signs/Symptoms as evidenced by pt report increased stress in life resulting in decreased intake consuming </=50% energy intake at meals compared to estimated needs x >/=1 month, unintentional wt loss 9% x 2 months. Status Active Problem Recommendation Dietitian Recommendations/Changes Continue consistent carbohydrate cardiac diet. Continue Glucerna 120mL 4x/day medpass. Continue ensure pudding or magic cup with pt meals for additional calories and protein if consumed. Lab / Micro Data Attestation: I reviewed the patient's lab results. Result Diagrams: 11/06/20 19:30 11/09/20 05:25 Labs: Laboratory Results - last 24 hr 11/08/20 09:36: Sodium 138, Potassium 3.2 L, Chloride 98, Carbon Dioxide 31.0, Anion Gap 9, BUN 42 H, Creatinine 1.99 H, Estim Creat Clear Calc 29.39, Est GFR (MDRD) Af Amer 42 L, Est GFR (MDRD) Non-Af 35 L, BUN/Creatinine Ratio 21.1 H, Glucose 218 H, Calcium 8.2 L 11/08/20 12:00: POC Glucose 235 H 11/08/20 16:37: POC Glucose 253 H 11/08/20 21:23: POC Glucose 242 H 11/09/20 06:37: POC Glucose 246 H Micro: Microbiology 11/07/20 11:10 Mucosa - Nasopharyngeal Respiratory Panel (PCR) - Final 11/06/20 08:15 Stool Enteric Bacteriology - Final 11/03/20 20:48 Urine, Clean Catch Urine Culture - Final Culture exhibits no growth. 11/03/20 21:40 Blood Culture (Wb) - Anticubital Right Blood Culture - Preliminary No growth in 48 hours. 11/03/20 21:35 Blood Culture (Wb) - Anticubital Left Blood Culture - Preliminary No growth in 48 hours. 11/03/20 20:48 Urine, Clean Catch Legionella Antigen - Final 11/03/20 20:48 Urine, Clean Catch Streptococcus pneumoniae Antigen (M - Final 11/03/20 21:15 Mucosa - Nose SARS-CoV-2 Antigen (Rapid) - Final Physical Exam Const alert and no apparent distress General Appearance: cooperative HEENT normocephalic, head/scalp atraumatic and moist oral mucous membranes Eyes PERRL, EOMs intact bilaterally and conjunctivae normal Neck supple General: trachea midline Resp normal respiratory effort Auscultation: diminished lung sounds; Negative for rales, rhonchi or wheezes Cardio regular rate and regular rhythm GI normal to inspection, nondistended, normoactive bowel sounds Extremity no clubbing, cyanosis or edema Skin no rashes or lesions noted Neuro no focal motor deficits Psych Mood & Affect: flat affect Charges/Coding Visit Charges Inpatient E&M: 83683 Subs Hosp L2
[2020-11-09 07:19] LABS: Anion Gap 7 (5-15); BUN 39 mg/dL (7-18); BUN/Creat Ratio 18.6 RATIO (10-20); Calcium,Total 8.8 mg/dL (8.5-10.1); Chloride 99 mmol/L (98-107); EST Glomerular Filtration Rate 33 mL/min (>60); Est Glom Filt Rate - Afr Amer 40 mL/min (>60); Estimated Creatinine Clearance 27.85 ml/min; Glucose 248 mg/dL (74-106); Magnesium 1.6 mg/dL (1.6-2.6); Potassium 3.7 mmol/L (3.5-5.1); Sodium Level 138 mmol/L (136-145)
--- NOTE | 2020-11-09 09:26 | NURSING ---
O2 SAT 87% ON 2L NC - INCREASED TO 3L NC - 90%
[2020-11-09] MEDS: Multivitamins,Therapeutic Tablet 1 TABLET PO (09:28)
[2020-11-09] MEDS: Folic Acid 1 MG Tablet 0.5 MG PO ×2 (09:28→16:28)
[2020-11-09] MEDS: Aspirin E.C. 81 MG Tablet PO (09:28)
[2020-11-09] MEDS: Docusate Sodium 100 MG Capsule 200 MG PO (09:29)
[2020-11-09] MEDS: Tamsulosin HCl 0.4 MG Capsule PO (09:29)
[2020-11-09] MEDS: Glucerna Shake 120 ML LIQUID PO ×2 (09:29→16:29)
[2020-11-09] MEDS: Multivitamin (Healthy Eyes) Capsule 1 CAP PO (09:29)
[2020-11-09] MEDS: predniSONE 5 MG Tablet PO (09:29)
[2020-11-09] MEDS: amLODIPine 10 MG Tablet PO (09:30)
[2020-11-09] MEDS: Calcium Carb/Vitamin D 1 TABLET Tablet 2 TABLET PO (09:30)
[2020-11-09] MEDS: Cholecalciferol (VIT D3) 25 MCG TABLET (1,000 UNITS) PO (09:31)
[2020-11-09] MEDS: Finasteride 5 MG Tablet PO (09:31)
[2020-11-09 11:36] LABS: Bedside Glucose 291 mg/dL (70-110)
--- NOTE | 2020-11-09 14:19 | PCM.DC ---
Discharge Instructions Diet Discharge Diet: 1800 Calorie Control Diet Activity Discharge Activity: Return to Normal Activity Follow Up Care Test Results: Test results from this visit will be discussed in further detail at your follow-up appointment, if applicable. Discharge Plan Admission Admit Date/Time: 11/03/20 23:09 Primary Reason for Your Visit: Respiratory failure, Pneumonia Attending Provider: Rayshawn Owusu Primary Care Provider: Fina Spicer NP Consulting Providers: Benedict Cole ; Leonard Vásquez ; Yi Obregon SAFETY DEPOSIT CLERK Instructions Additional Instructions / Restrictions: Wear oxygen at 2 L/min at rest and ambulating Discharge Orders/Prescriptions Prescriptions: New amlodipine 10 mg Tablet 10 mg PO DAILY Qty: 30 RF: 0 levofloxacin 500 mg tablet 500 mg PO DAILY Qty: 2 RF: 0 albuterol sulfate [ProAir HFA] 90 mcg/actuation HFA aerosol inhaler 2 puff inhalation .QID Qty: 8.5 RF: 0 Continued aspirin [Adult Low Dose Aspirin] 81 mg tablet,delayed release (DR/EC) 81 mg PO QDAY RF: 0 tamsulosin 0.4 mg capsule,extended release 24hr 0.4 mg PO QDAY RF: 0 finasteride [Proscar] 5 mg tablet 5 mg PO QDAY RF: 0 multivitamin tablet 1 tab PO QDAY RF: 0 colestipol 1 gram tablet 1 g PO BID RF: 0 prednisone 5 mg tablet 5 mg PO DAILY RF: 0 docusate sodium [Colace] 100 mg capsule 200 mg PO DAILY RF: 0 calcium citrate-vitamin D3 [Calcium Citrate + D] 315-200 mg-unit tablet 2 tab PO BID RF: 0 cholecalciferol (vitamin D3) 1,000 unit capsule 1,000 unit PO DAILY RF: 0 folic acid 400 mcg tablet 400 mcg PO BID RF: 0 Vision Formula (P-F-B-Zn-geovani) 14,320-226-200 zfxj-cn-ynps capsule 1 cap PO BID RF: 0 Lantus Solostar U-100 Insulin 100 unit/mL (3 mL) insulin pen 20 unit SC DAILY RF: 0 pravastatin 40 mg tablet 80 mg PO QDAY RF: 0 Discontinued amlodipine 5 mg tablet 5 mg PO QDAY RF: 0 No Action hydrochlorothiazide 25 mg tablet 25 mg PO QDAY RF: 0 gabapentin 300 mg capsule 300 mg PO TID RF: 0 lisinopril 40 mg tablet 40 mg PO QDAY RF: 0 Humalog KwikPen Insulin 200 unit/mL (3 mL) insulin pen 30 unit SC QAC RF: 0 Referrals / Follow Up: Leonard Vásquez DO [STAFF PHYSICIAN] - See Referral Note (In 2 weeks) Fina Spiecr NP, SAFETY DEPOSIT CLERK-C [Primary Care Provider] - Within 2 Weeks Disposition Disposition (needs filled in before D/C Order can be placed): Home, Self Care
--- NOTE | 2020-11-09 14:29 | CASEMGMT ---
Pt qualified for home O2, tc to [facility] [place] and spoke with Tanika to make aware and referral faxed at this time.
--- NOTE | 2020-11-09 16:11 | NURSING ---
RED SLIGHTLY RAISED TOVA NOTED ALL OVER PT'S BACK. PT C/O ITCHING. THIS RASH WAS NOT NOTED EARLIER. DR OGODE MADE AWARE & ORDER RECEIVED.
[2020-11-09 16:21] LABS: Bedside Glucose 121 mg/dL (70-110)
[2020-11-09] MEDS: DiphenhydrAMINE 25 MG Capsule PO (16:27)
--- NOTE | 2020-11-10 09:07 | DS.PCM_ITS ---
Providers Date of Admission: 11/03/20 Date of Discharge: 11/09/20 Primary Care Physician: SHAMAR Morin Consultations 11/07/20 09:46 Consult: Quality Technician / Pulmonary Medicine Routine Consulting Provider: Pulmonary Medicine dasha Hopkins Reason for Consult: respiratory failure EMERGENT Consult: No MD Notified: Yes Date Notified: 11/07/20 Time Notified: 09:47 Method of Notification: Verbal Reason For Visit: SEPSIS SECONDARY TO PNEUMONIA Diagnosis Discharge Diagnosis (1) Acute hypoxemic respiratory failure: Status: Acute Code(s): J96.01 - Acute respiratory failure with hypoxia Plan: 1. 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 #7 severe protein and caloric malnutrition Medications at Discharge Home Medications aspirin 81 mg tablet,delayed release 81 mg PO QDAY tab 06/15/17 gabapentin 300 mg capsule 300 mg PO TID 06/15/17 hydrochlorothiazide 25 mg tablet 25 mg PO QDAY tab 06/15/17 tamsulosin 0.4 mg capsule 0.4 mg PO QDAY 06/15/17 finasteride 5 mg tablet 5 mg PO QDAY 06/16/17 lisinopril 40 mg tablet 40 mg PO QDAY 06/16/17 multivitamin 1 tab PO QDAY 06/16/17 insulin lispro 200 unit/mL (3 mL) subcutaneous pen 30 unit SC QAC ml 05/17/18 calcium citrate 315 mg-vitamin D3 5 mcg (200 unit) tablet 2 tab PO BID 02/15/19 cholecalciferol (vitamin D3) 25 mcg (1,000 unit) capsule 1,000 unit PO DAILY 02/15/19 colestipol 1 gram tablet 1 g PO BID tab 02/15/19 docusate sodium 100 mg capsule 200 mg PO DAILY cap 02/15/19 folic acid 400 mcg tablet 400 mcg PO BID tab 02/15/19 vitamins A,C,Q-hjsc-wqzssd 14,320 unit-226 mg-200 unit capsule 1 cap PO BID 02/15/19 insulin glargine 100 unit/mL (3 mL) subcutaneous pen 20 unit SC DAILY ml 05/18/20 prednisone 5 mg tablet 5 mg PO DAILY tab 05/18/20 pravastatin 40 mg tablet 80 mg PO QDAY tab 10/05/20 albuterol sulfate [ProAir HFA] 2 puff INHALATION .QID #8.5 g 11/09/20 amlodipine 10 mg PO DAILY #30 tab 11/09/20 levofloxacin 500 mg PO DAILY #2 tab 11/09/20 Hospital Course Operations None Procedures 2-D Echocardiogram Summary of Care Provided Minutes Spent on Discharge: 33 Hospital Course: This 74-year-old white male was seen in the emergency room at [facility] with a chief complaint of fever, weakness, chills, and lightheadedness. Patient complained of a nonproductive cough. Labs were obtained which was remarkable for a white blood cell count of 12.3, creatinine was elevated at 2.59, BUN was 56, sodium was 132, glucose was 276. Patient's urinalysis was unremarkable, patient had a COVID-19 antigen test done which was negative, chest x-ray showed a right upper lobe pulmonary infiltrate with bibasilar atelectasis, infiltrate and or scarring. Patient was felt to have sepsis secondary to community-acquired pneumonia, patient required supplemental oxygen at the time of admission due to hypoxia. Patient was admitted to [place] [id number], he was maintained on IV antibiotics but his respiratory status worsened. Patient required high flow oxygen, additional testing was ordered and he was seen by pulmonary medicine. It was felt that the patient had underlying COPD in addition to his community-acquired pneumonia. Patient's respiratory status improved during his hospitalization, on 11/09/2020, patient was seen and examined: On examination he appeared in good health and spirits. Vital signs as documented. Skin warm and dry and without overt rashes. Neck without JVD, neck was supple, trachea midline, thyroid was normal. Lungs clear bilaterally, breath sounds are distant bilaterally. Heart exam notable for regular rhythm, normal sounds and absence of murmurs, rubs or gallops. Abdomen unremarkable and without evidence of organomegaly, masses, or abdominal aortic enlargement. Bowel sounds are present, abdomen is not distended. Extremities nonedematous, no cyanosis was noted, no clubbing was noted. Neuro: Cranial nerves II through XII are grossly intact, no focal motor deficits were noted, sensation to light touch and pinprick intact, motor exam 5/5 throughout. Psych: Patient is alert and oriented x3, he does not appear anxious or depressed, he does not appear agitated. Patient qualified for home oxygen at the time of discharge, he needed 2 L to maintain his pulse ox at 91%, on ambulating with 2 L his pulse ox was 93%, at rest on room air, patient's pulse ox was 85%. He is expected to use oxygen within the home and outside his home. Patient was discharged in stable condition on 11/09/2020. Weight / BMI Weight Weight: 65.8 kg Body Mass Index (BMI) 22.0 ABG / Lab / Microbiology Data Result Diagrams: 11/06/20 19:30 11/09/20 05:25 Laboratory: Laboratory Results - last 24 hr 11/09/20 11:07: POC Glucose 291 H 11/09/20 15:59: POC Glucose 121 H Microbiology: Microbiology 11/03/20 21:35 Blood Culture (Wb) - Anticubital Left Blood Culture - Final No growth in 5 days. 11/03/20 21:40 Blood Culture (Wb) - Anticubital Right Blood Culture - Final No growth in 5 days. 11/07/20 11:10 Mucosa - Nasopharyngeal Respiratory Panel (PCR) - Final 11/06/20 08:15 Stool Enteric Bacteriology - Final 11/03/20 20:48 Urine, Clean Catch Urine Culture - Final Culture exhibits no growth. 11/03/20 20:48 Urine, Clean Catch Legionella Antigen - Final 11/03/20 20:48 Urine, Clean Catch Streptococcus pneumoniae Antigen (M - Final 11/03/20 21:15 Mucosa - Nose SARS-CoV-2 Antigen (Rapid) - Final D/C Instructions Discharge Diet: 1800 Calorie Control Diet Meaningful Use Info Meaningful Use Diagnoses (Choose all that apply): None applicable Discharge Plan Admission Admit Date/Time: 11/03/20 23:09 Primary Reason for Your Visit: Respiratory failure, Pneumonia Attending Provider: Rayshawn Owusu Primary Care Provider: Fina Spicer NP Consulting Providers: Benedict Cole ; Leonard Vásquez ; Yi Obregon NP Instructions Additional Instructions / Restrictions: Wear oxygen at 2 L/min at rest and ambulating Discharge Orders/Prescriptions Prescriptions: New amlodipine 10 mg Tablet 10 mg PO DAILY Qty: 30 RF: 0 levofloxacin 500 mg tablet 500 mg PO DAILY Qty: 2 RF: 0 albuterol sulfate [ProAir HFA] 90 mcg/actuation HFA aerosol inhaler 2 puff inhalation .QID Qty: 8.5 RF: 0 Continued aspirin [Adult Low Dose Aspirin] 81 mg tablet,delayed release (DR/EC) 81 mg PO QDAY RF: 0 tamsulosin 0.4 mg capsule,extended release 24hr 0.4 mg PO QDAY RF: 0 finasteride [Proscar] 5 mg tablet 5 mg PO QDAY RF: 0 multivitamin tablet 1 tab PO QDAY RF: 0 colestipol 1 gram tablet 1 g PO BID RF: 0 prednisone 5 mg tablet 5 mg PO DAILY RF: 0 docusate sodium [Colace] 100 mg capsule 200 mg PO DAILY RF: 0 calcium citrate-vitamin D3 [Calcium Citrate + D] 315-200 mg-unit tablet 2 tab PO BID RF: 0 cholecalciferol (vitamin D3) 1,000 unit capsule 1,000 unit PO DAILY RF: 0 folic acid 400 mcg tablet 400 mcg PO BID RF: 0 Vision Formula (I-C-A-Zn-geovani) 14,320-226-200 qvad-hh-ogwt capsule 1 cap PO BID RF: 0 Lantus Solostar U-100 Insulin 100 unit/mL (3 mL) insulin pen 20 unit SC DAILY RF: 0 pravastatin 40 mg tablet 80 mg PO QDAY RF: 0 Discontinued amlodipine 5 mg tablet 5 mg PO QDAY RF: 0 No Action hydrochlorothiazide 25 mg tablet 25 mg PO QDAY RF: 0 gabapentin 300 mg capsule 300 mg PO TID RF: 0 lisinopril 40 mg tablet 40 mg PO QDAY RF: 0 Humalog KwikPen Insulin 200 unit/mL (3 mL) insulin pen 30 unit SC QAC RF: 0 Referrals / Follow Up: Leonard Vásquez DO [STAFF PHYSICIAN] - See Referral Note (In 2 weeks) Fina Spicer NP, [employer]-C [Primary Care Provider] - Within 2 Weeks Disposition Disposition (needs filled in before D/C Order can be placed): Home, Self Care Charges/Coding Visit Charges Inpatient E&M: 99128 Disch Hosp
--- NOTE | 2020-11-12 15:53 | CASEMGMT ---
NADEEM VINCENT Discharge Follow-up Phone Call: CRISTELAManuela: Bethany Strata: 3 Call Date: 11/12/20 Discharge Date: 11/09/20 Time of Call: 1550 Duration: 3 min Admitting Diagnosis: sepsis due to pneumonia NADEEM VINCENT completed follow-up phone call after recent hospitalization. Patient states he was doing ok until he awoke today with rash on chest. Patient states he has been in contact with PCP and has appt for tomorrow. Patient was able to fill prescriptions without difficulty and had no questions regarding discharge instructions.
== END 2020-11-09 17:27 | disposition home or self-care (01) | DRG 871 ==
LOC: ED 23:03 → MS3 23:29
PROVIDERS: Family Medicine; Internal Medicine; Internal Medicine Critical Care Medicine; Admitting Provider Hospitalist; Emergency Provider Emergency Medicine; PCP Nurse Practitioner; Visit Provider Internal Medicine
DX: A41.9 Sepsis, unspecified organism (principal); J96.01 Acute respiratory failure with hypoxia; J18.9 Pneumonia, unspecified organism; E43 Unspecified severe protein-calorie malnutrition; J44.0 Chronic obstructive pulmonary disease with (acute) lower respiratory infection; N18.4 Chronic kidney disease, stage 4 (severe); E87.1 Hypo-osmolality and hyponatremia; R79.89 Other specified abnormal findings of blood chemistry; M19.90 Unspecified osteoarthritis, unspecified site; M35.3 Polymyalgia rheumatica; M81.0 Age-related osteoporosis without current pathological fracture; I25.2 Old myocardial infarction; I27.20 Pulmonary hypertension, unspecified; I25.10 Atherosclerotic heart disease of native coronary artery without angina pectoris; I12.9 Hypertensive chronic kidney disease with stage 1 through stage 4 chronic kidney disease, or unspecified chronic kidney disease; I16.0 Hypertensive urgency; E11.36 Type 2 diabetes mellitus with diabetic cataract; E11.319 Type 2 diabetes mellitus with unspecified diabetic retinopathy without macular edema; E11.22 Type 2 diabetes mellitus with diabetic chronic kidney disease; H91.93 Unspecified hearing loss, bilateral; G47.30 Sleep apnea, unspecified; F32.9 Major depressive disorder, single episode, unspecified; F17.210 Nicotine dependence, cigarettes, uncomplicated; E78.2 Mixed hyperlipidemia; E87.6 Hypokalemia; Z87.442 Personal history of urinary calculi; Z79.4 Long term (current) use of insulin; Z79.82 Long term (current) use of aspirin; Z79.899 Other long term (current) drug therapy; Z86.2 Personal history of diseases of the blood and blood-forming organs and certain disorders involving the immune mechanism; Z68.22 Body mass index [BMI] 22.0-22.9, adult
CPT/HCPCS: 36415; 71045; 71250; 80048; 80053; 81001; 82947; 82962; 83605; 83735; 83880; 84484; 85025; 85379; 85610; 85730; 87040; 87086; 87426; 87449; 87506; 87633; 93306; 93970; 94640; 94667; 94668; 94762; 97162; 97165; 97802; 97803; 99251; 99284; 99406; J7030; J7050; A4216; G0463; J1940

== ENCOUNTER → 2020-11-29 08:03 | Outpatient (CLI) | payer MEDICARE, OTHER, SELFPAY ==
[2020-11-23 09:35] VITALS: BMI 21.9
[2020-11-29 08:15] VITALS: PULSE 101; PULSE 102; PULSE 105; PULSE 106; PULSE 91; PULSE 92; PULSE 94; O2SAT 96; O2SAT 98
--- NOTE | 2020-11-29 14:15 | PCM.PSN.6M ---
PSN 6 Minute Walk Test 6 Minute Walk Test 6 Minute Walk Test: 6 Minute Walk Test PSN:6-Minute Walk Test Start: 11/29/20 08:22 Freq: Status: Active Protocol: [id number].6MINW Document 11/29/20 08:15 GABE (Rec: 11/29/20 08:25 [id number]) 6 Minute Walk Test Date Performed 11/29/20 Time Performed 08:15 Height 5 ft 8 in Weight: 67.132 kg Weight in Pounds 148.[address]: Yi Obregon [employer] PARALEGAL FIO2 (% Oxygen) 21 Assistive device used: None Pre-test Oxygen Delivery Method Room Air Pulse Ox (%) 98 Pulse Rate (60-100 beats/min) 92 Dyspnea Riccardo Scale (0-10) 0 Exertion Riccardo Scale (6-20) 6 1st minute Oxygen Delivery Method Room Air Pulse Ox (%) 98 Pulse Rate (60-100 beats/min) 91 2nd minute Oxygen Delivery Method Room Air Pulse Ox (%) 98 Pulse Rate (60-100 beats/min) 94 3rd minute Oxygen Delivery Method Room Air Pulse Ox (%) 96 Pulse Rate (60-100 beats/min) 101 H 4th minute Oxygen Delivery Method Room Air Pulse Ox (%) 98 Pulse Rate (60-100 beats/min) 106 H 5th minute Oxygen Delivery Method Room Air Pulse Ox (%) 98 Pulse Rate (60-100 beats/min) 105 H 6th minute Oxygen Delivery Method Room Air Pulse Ox (%) 98 Pulse Rate (60-100 beats/min) 102 H Post-test Oxygen Delivery Method Room Air Pulse Ox (%) 96 Pulse Rate (60-100 beats/min) 92 Dyspnea Riccardo Scale (0-10) 0.5 Exertion Riccardo Scale (6-20) 8 Full Laps Walked 17 Partial Lap, Number of Tiles Walked 40 Total Distance Walked (ft) 1043 Interpretation Interpretation: The patient was able to ambulate 1043 feet over the course of 6 minutes on room air with no assistive devices or breaks. The patient experienced no significant desaturation, but did have a heart rate as high as 106 bpm. These findings are consistent with deconditioning. Recommendations Recommendations: No supplemental oxygen is indicated at this time. Patient may benefit from initiation of an exercise program.
== END ==
PROVIDERS: PCP Nurse Practitioner; Referring Provider Nurse Practitioner Acute Care; Visit Provider Nurse Practitioner Acute Care
DX: R06.00 Dyspnea, unspecified (principal)
CPT/HCPCS: 94618

== ENCOUNTER → 2020-12-05 08:30 | Outpatient (CLI) | payer MEDICARE, OTHER, SELFPAY ==
[2020-11-23 09:35] VITALS: BMI 21.9
--- NOTE | 2020-12-05 08:31 | CT_ITS ---
STUDY: CT CHEST WITHOUT CONTRAST REASON FOR EXAM: Male, 75 years old. New mass with weight loss, smoker RADIATION DOSAGE (If Supplied By Facility): CTDIvol = ( 9.44 ) mGy, DLP = ( 330.30 ) mGycm TECHNIQUE: Transaxial imaging was performed without the administration of intravenous contrast material. Multiplanar coronal and sagittal images were reformatted. Individualized dose optimization techniques were used for this CT. COMPARISON: Comparison is made with prior examination dated 11/06/2020. FINDINGS: Calcified granuloma in the posterior aspect of the left upper lobe. Since prior study, there is been a marked improvement in the previously seen bilateral patchy infiltrates. Minimal residual changes persist in the anterior aspect of the right upper lobe representing either scarring or residual infiltrate. Minimal residual changes also are seen in the posterior medial aspects of both lower lobes. The previously seen bilateral pleural effusions have cleared. There is no demonstrated pleural abnormality. There are calcifications of the coronary arteries. There are multiple small lymph nodes within the mediastinum, which are normal in size and morphology most compatible with reactive lymph hyperplasia. Normal hilar regions. Normal unenhanced pulmonary arteries. There is atherosclerotic calcification of the aortic arch with tortuosity and elongation of the aortic arch and descending thoracic aorta. There are multi-level degenerative changes of the thoracic spine. There is no demonstrated abnormality of the visualized upper abdomen. CT/Chest without Contrast IMPRESSION: Since prior study, there has been a marked improvement in the patchy infiltrates in both lungs with the bilateral pleural effusions. Mild residual changes persist as described. Electronically Signed: Elvis Green MD at 14:56 EDT , Service support ,
== END ==
PROVIDERS: PCP Nurse Practitioner; Referring Provider Nurse Practitioner Acute Care; Visit Provider Nurse Practitioner Acute Care
DX: R91.8 Other nonspecific abnormal finding of lung field (principal); R06.00 Dyspnea, unspecified
CPT/HCPCS: 71250

== ENCOUNTER 2020-12-10 08:19 | Emergency (ER) | payer MEDICARE, OTHER, SELFPAY ==
[2020-12-10 08:21] VITALS: BP 146/66; PULSE 69; RESP 13; TEMP 36.2; O2SAT 97; BMI 23.0
--- NOTE | 2020-12-10 08:37 | EKG12_ITS ---
Test Reason : SYNCOPE Blood Pressure : / mmHG Vent. Rate : 074 BPM Atrial Rate : 074 BPM P-R Int : 142 ms QRS Dur : 092 ms QT Int : 428 ms P-R-T Axes : 006 005 042 degrees QTc Int : 475 ms Normal sinus rhythm Inferior infarct , age undetermined Abnormal ECG When compared with ECG of 19-DEC-2009 23:24, QT has lengthened Confirmed by JARRETT VARGAS, PERRY ([id number]), news assignment editor NIRMALA RODRIGUEZ ([id number]) on 12/18/2020 8:41:37 AM Referred By: CHANDNI Confirmed By:FERNY FARIAS MD
--- NOTE | 2020-12-10 08:37 | RAD_ITS ---
STUDY: X-RAY CHEST REASON FOR EXAM: Male, 75 years old. Syncopal episode TECHNIQUE: Single AP portable view of the chest. COMPARISON: 11/13/2020. FINDINGS: Cardiac silhouette unremarkable. Pulmonary vascularity unremarkable. Aorta calcified. No focal patchy airspace opacities. No pleural effusions. Left basilar atelectasis/scar. Small granulomas. COPD. Upper abdomen unremarkable. Osseous structures intact with degenerative features. No pneumothorax. RAD/Chest 1 View (Portable) IMPRESSION: No acute cardiopulmonary findings Electronically Signed: Channing Azevedo DO at 9:12 EDT Tel , Service support ,
--- NOTE | 2020-12-10 08:39 | EX.ED.DYSGE1 ---
HPI History of Present Illness Chief Complaint: Syncope Informant: patient Narrative Narrative: Currently patient was reading the newspaper and The patient's was with him and witnessed this.Patient is a 75-year-old male with a past medical history of CKD, diabetes, hypertension who presents to the emergency department for a syncopal episode today. said he was not feeling well. He had up slouching over. He started to drool. The whole episode lasted for maybe 2 minutes. He was recently admitted He has never done this before in the past. He was recently admitted to the hospital for sepsis with pneumonia. He states he has been recovering well. He was sent home with oxygen but has not been requiring to wear it. This morning he denies any chest pain, heart palpitations. Did feel mildly short of breath but now feels like he is back to his baseline. He denies being recently ill with any vomiting, diarrhea or fever/chills. He denies any leg swelling or calf pain. [facility] Medical History (Reviewed 11/23/20 @ 09:45 by Yi Obregon [employer]) Anemia Atherosclerotic heart disease of [place] coronary artery without angina pectoris Back problem Bone fracture Bronchitis Cataracts, bilateral COPD (chronic obstructive pulmonary disease) Diabetic retinopathy associated with type 1 diabetes mellitus Dyspnea on exertion Essential hypertension Family history of hyperlipidemia Family history of hypertension Headache Hearing loss, left Hearing loss, right Hearing problem Hyperlipidemia Hypertension Hypertension Kidney stones 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 Mixed hyperlipidemia Nicotine abuse Osteoarthritis Prostate disease Sleep apnea Smoker Vision problem Wears hearing aid in both ears Home Medications aspirin 81 mg tablet,delayed release 81 mg PO QDAY tab 06/15/17 [History Last Taken Unknown] gabapentin 300 mg capsule 300 mg PO TID 06/15/17 [History Last Taken Unknown] hydrochlorothiazide 25 mg tablet 25 mg PO QDAY tab 06/15/17 [History Last Taken Unknown] tamsulosin 0.4 mg capsule 0.4 mg PO QDAY 06/15/17 [History Last Taken Unknown] finasteride 5 mg tablet 5 mg PO QDAY 06/16/17 [History Last Taken Unknown] lisinopril 40 mg tablet 40 mg PO QDAY 06/16/17 [History Last Taken Unknown] multivitamin 1 tab PO QDAY 06/16/17 [History Last Taken Unknown] insulin lispro 200 unit/mL (3 mL) subcutaneous pen 30 unit SC QAC ml 05/17/18 [History Last Taken Unknown] calcium citrate 315 mg-vitamin D3 5 mcg (200 unit) tablet 2 tab PO BID 02/15/19 [History Last Taken Unknown] cholecalciferol (vitamin D3) 25 mcg (1,000 unit) capsule 1,000 unit PO DAILY 02/15/19 [History Last Taken Unknown] docusate sodium 100 mg capsule 200 mg PO DAILY cap 02/15/19 [History Last Taken Unknown] folic acid 400 mcg tablet 500 mcg PO BID tab 02/15/19 [History Last Taken Unknown] vitamins A,C,Y-giys-lyglmd 14,320 unit-226 mg-200 unit capsule 1 cap PO BID 02/15/19 [History Last Taken Unknown] insulin glargine 100 unit/mL (3 mL) subcutaneous pen 20 unit SC DAILY ml 05/18/20 [History Last Taken Unknown] prednisone 5 mg tablet 5 mg PO DAILY tab 05/18/20 [History Last Taken Unknown] pravastatin 40 mg tablet 80 mg PO QDAY tab 10/05/20 [History Last Taken Unknown] amlodipine 10 mg PO DAILY #30 tab 11/09/20 [Rx Last Taken Unknown] Allergy/AdvReac Type Severity Reaction Status Date / Time levofloxacin [From Levaquin] Allergy Hives Verified 12/10/20 08:52 Family History (Reviewed 11/23/20 @ 09:45 by Yi Obregon [employer]) Father Diabetes Hypertension Family history of hyperlipidemia Asthma Kidney disease Mother Diabetes Brother Cancer Throat cancer Brother CAD (coronary artery disease) Myocardial infarction, Onset Age: 52 Sister Family history of hyperlipidemia Hypertension Diabetes Unknown Alcoholism Arthritis Depression Diabetes Hypertension Hyperlipidemia Osteoporosis Respiratory disease Pancreatic cancer Other Family history of hypertension Surgical History (Reviewed 11/23/20 @ 09:45 by Yi Obregon [employer]) Fracture of left patella Fracture of left upper extremity History of bilateral inguinal hernia repair (~2007) History of colonoscopy (~2013) History of hemorrhoidectomy (~2000) History of hernia repair (~1991) stent replacement for right sided kidney stome Wrist fracture, bilateral Social History Smoking Status: Former smoker how long ago did patient quit smokin alcohol intake: current alcohol intake frequency: a few times a month substance use type: does not use caffeine: Yes Type: coffee Number of servings: 2 what type of physical activity do you participate in: none seatbelt use: sometimes do you feel safe at home: Yes ROS ROS ED Constitutional Constitutional ED: Denies chills or fever(s) Eyes Eyes: Denies change in vision ENT ENT ED: Denies epistaxis or rhinorrhea Cardiovascular Cardiovascular: Denies chest pain or palpitations Respiratory/Chest Respiratory/Chest: Denies cough, dyspnea or dyspnea on exertion Gastrointestinal Gastrointestinal: Denies abdominal pain, diarrhea, nausea or vomiting Genitourinary Genitourinary ED: Denies dysuria, hematuria or urinary frequency Musculoskeletal Musculoskeletal: Denies back pain or neck pain Integumentary Denies rash Neurologic Neurologic: Denies dizziness, headache(s) or weakness EXAM Physical Exam Const Vital Signs: 12/10/20 08:21 12/10/20 08:56 12/10/20 09:52 Temperature 97.1 F L Temperature Source Temporal Pulse Rate 69 Pulse Rate [Lying] 73 Pulse Rate [Sitting] 72 Pulse Rate [Standing] 78 Respiratory Rate 13 Blood Pressure 146/66 H Blood Pressure [Lying] 154/65 H Blood Pressure [Sitting] 162/68 H Blood Pressure [Standing] 149/70 H Blood Pressure Mean 92 Blood Pressure Mean [Lying] 94 Blood Pressure Mean [Sitting] 99 Blood Pressure Mean [Standing] 96 Pulse Ox 97 97 Oxygen Delivery Method Room Air Room Air 12/10/20 10:27 12/10/20 11:33 Temperature Temperature Source Pulse Rate 76 81 Pulse Rate [Lying] Pulse Rate [Sitting] Pulse Rate [Standing] Respiratory Rate 19 H 16 Blood Pressure 153/62 H 145/65 H Blood Pressure [Lying] Blood Pressure [Sitting] Blood Pressure [Standing] Blood Pressure Mean 92 Blood Pressure Mean [Lying] Blood Pressure Mean [Sitting] Blood Pressure Mean [Standing] Pulse Ox 100 97 Oxygen Delivery Method Room Air Positive well nourished and well developed General Appearance ED: well developed and NAD HEENT Reports normocephalic and head/scalp atraumatic Eyes PERRL and EOMs intact bilaterally Neck supple Chest Wall inspection of chest normal Resp normal respiratory effort and clear to auscultation bilaterally Auscultation: Negative for rales, rhonchi or wheezes Cardio regular rate, regular rhythm and no murmurs GI normal to inspection, nondistended, normoactive bowel sounds and non-tender Palpation: soft; Negative for guarding or rebound tenderness present Extremity normal to inspection General Extremety ED: Negative for edema or tenderness General Extremity: Negative for edema Neuro oriented x3, CN's II-XII intact bilaterally and no sensory deficits noted Sensorium / Orientation: alert Motor Exam: strength 5/5 throughout Psych mental status grossly normal Skin no rashes or lesions noted MDM MDM MDM Narrative Medical decision making narrative: Patient presents the ED for syncopal episode this morning. On arrival to the ED vital signs within normal limits. He has a benign physical exam. He is feeling back to his baseline. EKG, chest x-ray and basic lab work being performed. He did have a recent CT scan of his chest to eval for potential mass versus his resolving pneumonia. Patient CT scan which was performed previously shows significant improvement of his lung infiltrates. The x-ray today did not reveal any acute cardiopulmonary abnormality. His lab work shows hemoglobin to be 10.3 which is stable from from previous work-up. His creatinine is elevated but this is also similar. His troponin is within normal limits and the repeat troponin actually trended downward. His orthostatic vital signs are negative. He is feeling much better and does feel comfortable being discharged home. If he develops any repeat symptoms he is to return to the emergency department. He otherwise is to follow-up with his PCP. I have low concern for ACS, thromboembolism, stroke causing his brief episode earlier today. This was all reviewed with the patient and all questions were answered. Lab Data Labs: Laboratory Results - last 24 hr 12/10/20 12/10/20 12/10/20 08:15 08:15 10:20 WBC 6.7 RBC 3.46 L Hgb 10.3 L Hct 31.8 L MCV 91.9 MCH 29.8 MCHC 32.4 RDW Std Deviation 45.2 H RDW Coeff of [place] 13.6 Plt Count 333 MPV 9.7 Immature Gran % (Auto) 0.300 Neut % (Auto) 59.1 Lymph % (Auto) 26.3 [place] % (Auto) 9.3 Eos % (Auto) 4.3 Baso % (Auto) 0.7 Absolute Neuts (auto) 3.9 Absolute Lymphs (auto) 1.76 Nucleated RBC % 0 Sodium 137 Potassium 3.9 Chloride 99 Carbon Dioxide 33.0 H Anion Gap 5 BUN 42 H Creatinine 2.06 H Estim Creat Clear Calc 28.08 Est GFR (MDRD) Af Amer 41 L Est GFR (MDRD) Non-Af 33 L BUN/Creatinine Ratio 20.4 H Glucose 181 H Calcium 9.7 Magnesium 2.1 Troponin I High Sens 21 17 Radiography Diagnostic Testing: Radiology Impression Chest X-Ray 12/10/20 08:37 IMPRESSION: No acute cardiopulmonary findings Electronically Signed: Channing Azevedo, at 9:12 EDT Tel , Service support , EKG Initial EKG: Attestation: I personally reviewed and interpreted this EKG as follows: (Rate of 74 bpm and normal sinus rhythm. There is sinus arrhythmia present. Otherwise normal intervals, normal axis. No significant ST elevations or depressions. No T wave abnormalities.) Discharge Plan Triage Chief Complaint: Syncope ED Provider: Mushtaq Westfall Dx/Rx/DC Orders Clinical Impression: Episode of syncope Instructions: Dizziness Fainting Poss Causes Prescriptions: No Action hydrochlorothiazide 25 mg tablet 25 mg PO QDAY RF: 0 aspirin [Adult Low Dose Aspirin] 81 mg tablet,delayed release (DR/EC) 81 mg PO QDAY RF: 0 gabapentin 300 mg capsule 300 mg PO TID RF: 0 tamsulosin 0.4 mg capsule,extended release 24hr 0.4 mg PO QDAY RF: 0 finasteride [Proscar] 5 mg tablet 5 mg PO QDAY RF: 0 lisinopril 40 mg tablet 40 mg PO QDAY RF: 0 multivitamin tablet 1 tab PO QDAY RF: 0 prednisone 5 mg tablet 5 mg PO DAILY RF: 0 Humalog KwikPen Insulin 200 unit/mL (3 mL) insulin pen 30 unit SC QAC RF: 0 docusate sodium [Colace] 100 mg capsule 200 mg PO DAILY RF: 0 calcium citrate-vitamin D3 [Calcium Citrate + D] 315-200 mg-unit tablet 2 tab PO BID RF: 0 cholecalciferol (vitamin D3) 1,000 unit capsule 1,000 unit PO DAILY RF: 0 folic acid 400 mcg tablet 500 mcg PO BID RF: 0 Vision Formula (Y-Z-G-Zn-geovani) 14,320-226-200 swul-cl-jucz capsule 1 cap PO BID RF: 0 Lantus Solostar U-100 Insulin 100 unit/mL (3 mL) insulin pen 20 unit SC DAILY RF: 0 amlodipine 10 mg Tablet 10 mg PO DAILY Qty: 30 RF: 0 pravastatin 40 mg tablet 80 mg PO QDAY RF: 0 Primary Care Provider: Fina Spicer NP Referrals: Fina Spicer NP, [employer] [Primary Care Provider] - 1 Day Disposition Disposition: Home, Self Care Discharge Date/Time: 12/10/20 11:36
[2020-12-10 08:53] LABS: Absolute Lymphocyte Count 1.76 X10^3/uL (0.83-4.51); Absolute Neutrophil Count 3.9 X10^3/uL (2.0-7.7); Basophil# 0.05 X10^3/uL; Basophil% 0.7 % (0-1); Eosinophil# 0.29 X10^3/uL; Eosinophils% 4.3 % (0-5); Hematocrit 31.8 % (40-54); Hemoglobin 10.3 g/dL (13.0-16.5); Lymphocyte # 1.76 X10^3/ul (0.83-4.51); Lymphocyte % 26.3 % (19-41); Mean Corp Hgb Conc 32.4 g/dL (32-36); Mean Corpuscular Hgb 29.8 pg (27.0-32.0); Mean Corpuscular Volume 91.9 fL (80-94); Mean Platelet Vol. 9.7 fl (6.2-12.0); Monocyte# 0.62 X10^3/uL; Monocyte% 9.3 % (0-10); NRBC Flagged by Analyzer 0 % (0-5); Neutrophil # 3.94 X10^3/uL (2.7-7.7); Neutrophil % 59.1 % (47-70); Platelet Count 333 K/mm3 (150-450); RBC Distribution Width CV 13.6 % (11.6-14.6); RBC Distribution Width SD 45.2 fl (35.1-43.9); Red Blood Count 3.46 M/mm3 (4.6-6.2); White Blood Count 6.7 K/mm3 (4.4-11.0)
[2020-12-10 08:56] VITALS: O2SAT 97
[2020-12-10 09:03] LABS: Anion Gap 5 (5-15); BUN 42 mg/dL (7-18); BUN/Creat Ratio 20.4 RATIO (10-20); Calcium,Total 9.7 mg/dL (8.5-10.1); Chloride 99 mmol/L (98-107); Creatinine, Serum 2.06 mg/dL (0.70-1.30); EST Glomerular Filtration Rate 33 mL/min (>60); Est Glom Filt Rate - Afr Amer 41 mL/min (>60); Estimated Creatinine Clearance 28.08 ml/min; Glucose 181 mg/dL (74-106); Magnesium 2.1 mg/dL (1.6-2.6); Potassium 3.9 mmol/L (3.5-5.1); Sodium Level 137 mmol/L (136-145); Troponin-I HS 21 pg/mL (3.0-78.0)
[2020-12-10 09:52] VITALS: BP 149/70; BP 154/65; BP 162/68; PULSE 72; PULSE 73; PULSE 78
[2020-12-10 10:27] VITALS: BP 153/62; PULSE 76; RESP 19; O2SAT 100
[2020-12-10 10:50] LABS: Troponin-I HS 17 pg/mL (3.0-78.0)
[2020-12-10 11:33] VITALS: BP 145/65; PULSE 81; RESP 16; O2SAT 97
--- NOTE | 2020-12-10 11:35 | ED.RN ---
THIS NURSE REVIEWED D/C INSTRUCTIONS WITH PT AND VISITOR. PT VERBALIZED UNDERSTANDING OF INSTRUCTIONS. IV D/C. IV CATHETER INTACT. PT TOLERATED WELL. PT DENIES FURTHER NEEDS OR QUESTIONS AT THIS TIME.
== END 2020-12-10 11:36 | disposition home or self-care (01) ==
PROVIDERS: Emergency Provider Emergency Medicine; PCP Nurse Practitioner
DX: R55 Syncope and collapse (principal); E78.2 Mixed hyperlipidemia; I12.9 Hypertensive chronic kidney disease with stage 1 through stage 4 chronic kidney disease, or unspecified chronic kidney disease; E10.22 Type 1 diabetes mellitus with diabetic chronic kidney disease; N18.9 Chronic kidney disease, unspecified; I25.10 Atherosclerotic heart disease of native coronary artery without angina pectoris; J44.9 Chronic obstructive pulmonary disease, unspecified; E10.319 Type 1 diabetes mellitus with unspecified diabetic retinopathy without macular edema; H91.93 Unspecified hearing loss, bilateral; M19.90 Unspecified osteoarthritis, unspecified site; G47.30 Sleep apnea, unspecified; Z86.2 Personal history of diseases of the blood and blood-forming organs and certain disorders involving the immune mechanism; Z87.442 Personal history of urinary calculi; Z86.19 Personal history of other infectious and parasitic diseases; Z87.01 Personal history of pneumonia (recurrent); Z79.4 Long term (current) use of insulin; Z79.82 Long term (current) use of aspirin; Z79.899 Other long term (current) drug therapy; Z87.891 Personal history of nicotine dependence
CPT/HCPCS: 71045; 80048; 83735; 84484; 85025; 93005; 99285

== ENCOUNTER → 2020-12-24 10:24 | Outpatient (CLI) | payer MEDICARE, OTHER, SELFPAY ==
[2020-11-23 09:35] VITALS: BMI 21.9
--- NOTE | 2020-12-24 14:52 | PFTCOMP ---
COMPLETE PULMONARY FUNCTION TEST INTERPRETATION Brief HPI: Patient is a 75 year old male, currently under the care of Yi Obregon, who presents to [facility] for complete pulmonary function tests secondary to diagnosis of dyspnea. Respiratory therapist reports good effort and reproducible results. Interpretation: Forced expiration spirometry shows a mild large airways obstructive ventilatory defect with an FEV1 of 95% predicted. There is no significant bronchodilator response by strict ATS criteria. Spirograms are of good quality and plateau slowly, indicating slowly emptying areas of the lungs. The respiratory flow volume loop shows decreased expiratory flow rates at all lung volumes consistent with airway obstruction. Lung volumes by body plethysmography show a normal total lung capacity at 5.88 L, 103% predicted. All other lung volumes are within normal limits. Diffusion capacity by carbon monoxide is normal at 84% predicted. The airway resistance is normal. No previous pulmonary function tests were available for review. Impression: Irreversible mild large airways obstructive ventilatory defect with preserved diffusion capacity
== END ==
PROVIDERS: PCP Nurse Practitioner; Referring Provider Nurse Practitioner Acute Care; Visit Provider Nurse Practitioner Acute Care
DX: R06.00 Dyspnea, unspecified (principal)
CPT/HCPCS: 94060; 94726; 94729

== ENCOUNTER → 2021-01-03 | Outpatient (CLI) | payer MEDICARE, OTHER, SELFPAY ==
--- NOTE | 2021-01-03 | PROSBIL_PTH ---
PATIENT: DEX VALLE LOC: [facility] U#:[id number] AGE/SX: 75/M ROOM: RE01/03/[address]: Dr. Brendon Bartlett MD : 1945 BED: DIS: 01/03/2021 SPEC #: [id number] RECD: 01/03/21 17:10 STATUS: KATI RECarolyn #: [id number] AMBER: 01/03/21 00:[address]: Brendon Bartlett DEPT: SURGICAL PATHOLOGY RECD BY: Lev Friedman ENTERED: 01/04/21 12:38 SP TYPE: PROST BX MARSHALL DR: Fina Spicer, LOCAL SUPERINTENDENT-[place] Tissues: A - PROSTATE RIGHT B - PROSTATE RIGHT C - PROSTATE RIGHT D - PROSTATE LEFT E - PROSTATE LEFT F - PROSTATE LEFT Procedures: PROSTATE BX HEADER OPERATION: Prostate biopsy PRE-OP DIAGNOSIS: Elevated PSA TISSUE SUBMITTED: A - Right apex, B - Right mid, C - Right base, D - Left apex, E - Left mid, F - Left base MICROSCOPIC DIAGNOSIS A. Right prostate, apex, core biopsy: Adenocarcinoma. [place] grade: 6 (3+3) Cores involved: 1 out of 1 core Tissue involved: <1% Greatest tumor length: <1 millimeters See comment. B. Right prostate, mid, core biopsy: Adenocarcinoma. [place] grade: 6 (3+3) Cores involved: 1 out of 1 core Tissue involved: 60% Greatest tumor length: 4 millimeters See comment. C. Right prostate, base, core biopsy: Focal glandular atrophy. D. Left prostate, apex, core biopsy: Benign prostatic tissue. E. Left prostate, mid, core biopsy: Minimal chronic inflammation and focal glandular atrophy. F. Left prostate, base, core biopsy: Benign prostatic tissue. AM:christiano 01/07/2021 COMMENT A & B. Immunohistochemistry ([id number]) supports the above diagnosis. Case has been reviewed in consultation with Dr. Gómez who concurs with the above diagnosis. IDC:SJ MICROSCOPIC DESCRIPTION Slides are reviewed. GROSS DESCRIPTION A - Received is one container designated prostate, right apex. The specimen consists of one elongated fragment of light rios-white soft tissue measuring 1.8 cm in length and 0.1 cm in diameter. The specimen is totally submitted in one cassette. B - Received is one container designated prostate, right mid. The specimen consists of one elongated fragment of light rios-white soft tissue measuring 1.4 cm in length and 0.1 cm in diameter. The specimen is totally submitted in one cassette. C - Received is one container designated prostate, right base. The specimen consists of one elongated fragment of light rios-white soft tissue measuring 1 cm in length and 0.1 cm in diameter. The specimen is totally submitted in one cassette. D - Received is one container designated prostate, left apex. The specimen consists of one elongated fragment of light rios-white soft tissue measuring 0.6 cm in length and 0.1 cm in diameter. The specimen is totally submitted in one cassette. E - Received is one container designated prostate, left mid. The specimen consists of one elongated fragment of light rios-white soft tissue measuring 1.5 cm in length and 0.1 cm in diameter. The specimen is totally submitted in one cassette. F - Received is one container designated prostate, left base. The specimen consists of one elongated fragment of light rios-white soft tissue measuring 1.5 cm in length and 0.1 cm in diameter. The specimen is totally submitted in one cassette. / SJ:rg 01/04/21 TC:0 CPT: G0146
--- NOTE | 2021-01-03 | IMM_PTH ---
PATIENT: DEX VALLE LOC: [facility] U#:[id number] AGE/SX: 75/M ROOM: RE01/03/[address]: Dr. Brendon Bartlett MD : 1945 BED: DIS: 01/03/2021 SPEC #: [id number] RECD: 01/07/21 14:39 STATUS: KATI REQ #: [id number] AMBER: 01/03/21 00:[address]: Brendon Bartlett DEPT: IMMUNOHISTOCHEMISTRY RECD BY: Luma Thomas ENTERED: 01/07/21 14:41 SP TYPE: IMMUNO OTHR DR: Fina Spicer, RECREATION PROGRAM COORDINATOR-C Tissues: A - PROSTATE RIGHT B - PROSTATE RIGHT Procedures: 34BE12 (add) P40 (add) 34BE12 (initial) S-100 (add) PHYSICIAN & INSTITUTION [place] [id number] SPECIMEN INFORMATION: Tissue Source: A - Right prostate, apex, core biopsy, B - Right prostate, mid, core biopsy Clinical Info: Elevated PSA Specimen Number: [id number] A & B CPT code: 14006, 94477 x4 METHODOLOGY: Deparaffinized sections of prefer/formalin-fixed tissue or PAP/DQ stained slides are incubated with monoclonal/polyclonal antibodies/oligonucleotide probes. Localization is made via biotin free immunoperoxidase method. Appropriate controls are performed and reacted as expected. Results on target cell population are indicated in the following table: RESULTS: ANTIBODY / CLONE RESULT Block A P40 (BC28) negative 34BE12 (34BE12) negative Block B P40 (BC28) negative 34BE12 (34BE12) negative S-100 (4C4.9) positive These tests were developed and their performance characteristics determined by [facility]. They may not have been cleared or approved by the U.S. Food and Drug Administration. The FDA has determined that such clearance or approval is not necessary. The above immunohistochemical/dualISH markers are ordered and reviewed by the Pathologist. INTERPRETATION: A. Right prostate, apex, core biopsy: Adenocarcinoma. B. Right prostate, mid, core biopsy: Adenocarcinoma. AM:christiano 01/08/2021
== END | disposition home or self-care (01) ==
PROVIDERS: PCP Nurse Practitioner; Referring Provider Urology; Visit Provider Urology
DX: R97.20 Elevated prostate specific antigen [PSA] (principal)
CPT/HCPCS: 88305; 88341; 88342; G0416

== ENCOUNTER → 2021-01-23 07:04 | Outpatient (CLI) | payer MEDICARE, OTHER, SELFPAY ==
[2021-01-23 10:32] LABS: PSA,Total- Diagnostic 5.77 ng/mL (0.0-4.0)
== END ==
PROVIDERS: PCP Nurse Practitioner; Referring Provider Urology; Visit Provider Urology
DX: C61 Malignant neoplasm of prostate (principal)
CPT/HCPCS: 36415; 84153

== ENCOUNTER → 2021-02-07 16:38 | Outpatient (CLI) | payer MEDICARE, OTHER, SELFPAY ==
[2021-02-07 18:26] LABS: Protein, Urine (Random) 100.3 mg/dL (<11.9); Protein:Creat Ratio 2219 mg/g CRE (0-200)
[2021-02-07 19:52] LABS: Anion Gap 9 (5-15); BUN 56 mg/dL (7-18); BUN/Creat Ratio 22.4 RATIO (10-20); Calcium,Total 9.2 mg/dL (8.5-10.1); Chloride 92 mmol/L (98-107); EST Glomerular Filtration Rate 27 mL/min (>60); Est Glom Filt Rate - Afr Amer 32 mL/min (>60); Glucose 526 mg/dL (74-106); Potassium 4.3 mmol/L (3.5-5.1); Sodium Level 131 mmol/L (136-145)
== END ==
PROVIDERS: PCP Nurse Practitioner; Referring Provider Internal Medicine Nephrology; Visit Provider Internal Medicine Nephrology
DX: N18.32 Chronic kidney disease, stage 3b (principal)
CPT/HCPCS: 36415; 80048; 82570; 84156

== ENCOUNTER 2021-04-22 07:18 | Outpatient (CLI) | payer MEDICARE, OTHER, SELFPAY ==
[2021-04-22 10:01] LABS: Hematocrit 31.3 % (40-54); Hemoglobin 10.4 g/dL (13.0-16.5); Mean Corp Hgb Conc 33.2 g/dL (32-36); Mean Corpuscular Hgb 30.2 pg (27.0-32.0); Mean Platelet Vol. 10.1 fl (6.2-12.0); Platelet Count 389 K/mm3 (150-450); RBC Distribution Width CV 12.9 % (11.6-14.6); RBC Distribution Width SD 42.5 fl (35.1-43.9); Red Blood Count 3.44 M/mm3 (4.6-6.2); White Blood Count 7.5 K/mm3 (4.4-11.0)
[2021-04-22 10:42] LABS: ALB/GLOB Ratio 0.8 RATIO (0.9-2.4); AST(SGOT) 31 U/L (15-37); Alanine Aminotransfer ALT/SGPT 43 U/L (16-61); Albumin, Serum 2.9 g/dL (3.2-5.0); Alkaline Phosphatase 132 U/L (45-117); Anion Gap 8 (5-15); BUN 36 mg/dL (7-18); BUN/Creat Ratio 18.6 RATIO (10-20); Calcium,Total 9.2 mg/dL (8.5-10.1); Chloride 100 mmol/L (98-107); Cholesterol 219 mg/dL (200); Creatinine, Serum 1.94 mg/dL (0.70-1.30); EST Glomerular Filtration Rate 36 mL/min (>60); Est Glom Filt Rate - Afr Amer 43 mL/min (>60); Globulin 3.7 g/dL (2.2-4.2); Glucose 57 mg/dL (74-106); High Density Lipoprotein 54 mg/dL; Potassium 3.4 mmol/L (3.5-5.1); Protein, Total 6.6 g/dL (6.4-8.2); Sodium Level 140 mmol/L (136-145); Triglycerides 152 mg/dL; Very Low Density Lipoprotein 30 mg/dL (5-40)
== END 2021-04-22 23:59 | disposition short-term general hospital (02) ==
LOC: MTLAB 07:20
PROVIDERS: Internal Medicine Cardiovascular Disease; PCP Nurse Practitioner; Referring Provider Nurse Practitioner; Visit Provider Nurse Practitioner
DX: E11.22 Type 2 diabetes mellitus with diabetic chronic kidney disease (principal); N18.9 Chronic kidney disease, unspecified; E78.5 Hyperlipidemia, unspecified; D64.9 Anemia, unspecified; I12.9 Hypertensive chronic kidney disease with stage 1 through stage 4 chronic kidney disease, or unspecified chronic kidney disease
CPT/HCPCS: 80053; 80061; 82043; 82248; 82570; 85027

== ENCOUNTER 2021-05-21 07:36 | Outpatient (CLI) | payer MEDICARE, OTHER, SELFPAY ==
[2021-05-21 10:29] LABS: PSA,Total- Diagnostic 5.62 ng/mL (0.0-4.0)
== END 2021-05-21 23:59 | disposition home or self-care (01) ==
LOC: MTLAB 07:37
PROVIDERS: PCP Nurse Practitioner; Referring Provider Urology; Visit Provider Urology
DX: R97.20 Elevated prostate specific antigen [PSA] (principal)
CPT/HCPCS: 36415; 84153

== ENCOUNTER 2021-05-23 10:15 | Outpatient (CLI) | payer MEDICARE, OTHER, SELFPAY ==
--- NOTE | 2021-05-23 10:19 | CT_ITS ---
STUDY: CT ABDOMEN AND PELVIS WITHOUT CONTRAST REASON FOR EXAM: Male, 75 years old. Right flank pain. History of prior bilateral inguinal hernia repair. RADIATION DOSAGE (If Supplied By Facility): CTDIvol = ( 7.46 ) mGy, DLP = ( 360.20 ) mGycm TECHNIQUE: Transaxial images were obtained from the dome of the diaphragm to the symphysis pubis without oral contrast, and without intravenous contrast. Sagittal and coronal images were reconstructed. Individualized dose optimization techniques were used for this CT. COMPARISON: None. FINDINGS: The visualized lung bases are unremarkable. Coronary artery calcification. Normal liver. Normal gallbladder and extrahepatic biliary system. There are multiple benign calcified granulomata of the spleen. Normal pancreas. Normal bilateral adrenal glands. There is a 3.6 mm calculus in the right renal pelvis with minimal right hydronephrosis. Mild degree of nonspecific bilateral perinephric stranding. Normal left kidney. Normal visualized stomach. Normal small intestine. There are multiple colonic diverticula consistent with diverticulosis. The appendix is visualized and appears normal. There is diffuse atherosclerotic calcification of the abdominal aorta and its major visceral branches, without a demonstrated aneurysm. Normal inferior vena cava. Normal retroperitoneum. Mild degree of the bladder wall thickening. There is enlargement of the prostate gland. The prostate measures 5.2 cm x 5 cm. Calcifications are seen posteriorly. Focal calcification in the subcutaneous tissues overlying the right lower anterior abdominal wall most likely secondary to calcified injection granulomas. There are diffuse degenerative changes of the visualized lumbar spine. There is loss of the normal lumbar lordosis. CT/Abdomen/Pelvis without Cont IMPRESSION: 3.6 mm calculus in the right renal pelvis with minimal right hydronephrosis. Mild degree of nonspecific bilateral perinephric stranding. Prostatic enlargement. Mild degree of bladder wall thickening. Electronically Signed: Elvis Green MD at 11:01 EST ,
== END 2021-05-23 23:59 | disposition home or self-care (01) ==
PROVIDERS: PCP Nurse Practitioner; Referring Provider Urology; Visit Provider Urology
DX: N20.9 Urinary calculus, unspecified (principal)
CPT/HCPCS: 74176

== ENCOUNTER 2021-05-29 12:40 | Day surgery (SDC) | payer MEDICARE, OTHER, SELFPAY ==
[2021-05-29] VITALS (7 sets, daily range): BP systolic 97–177; BP diastolic 42–69; PULSE 74–85; RESP 16–18; TEMP 36.8–37.3; O2SAT 92–97; BMI 21.4
[2021-05-29] MEDS: Lactated Ringers 1,000 ML 30 ML IV (13:22)
[2021-05-29 13:25] LABS: Bedside Glucose 276 mg/dL (70-110)
[2021-05-29] MEDS: Cefazolin 2 GM in 0.9% Normal Saline 100 ML IV (14:22)
--- NOTE | 2021-05-29 14:42 | HP.PCM_ITS ---
HPI - General HPI Narrative DEX VALLE, is a 75 M who presents evaluation for possible stone in the right UPJ seen on CAT scan, on my read of the CAT scan I suspect he has a vascular calcification really retrograde pyelogram to confirm that it is no obstruction. [facility] Medical History (Updated 05/27/21 @ 14:14 by Daysi Justin) Alcohol use Anemia Arthritis Atherosclerotic heart disease of [place] coronary artery without angina pectoris Back pain Back problem Bone fracture Bronchitis Cardiology follow-up encounter Cataracts, bilateral COPD (chronic obstructive pulmonary disease) Diabetic retinopathy associated with type 1 diabetes mellitus Dietary restriction Dyspnea on exertion Essential hypertension Family history of hyperlipidemia Family history of hypertension Former smoker Headache Hearing loss, left Hearing loss, right Hearing problem High cholesterol History of echocardiogram History of pain when walking History of stress test Hyperlipidemia Hypertension Hypertension Insulin dependent diabetes mellitus Kidney stones 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 Mixed hyperlipidemia Nicotine abuse Osteoarthritis Prostate disease Shortness of breath on exertion Sleep apnea Smoker Vision problem Wears dentures Wears glasses Wears hearing aid Wears hearing aid in both ears Home Medications aspirin 81 mg tablet,delayed release 81 mg PO QDAY tab 06/15/17 [History Last Taken 05/27/21] gabapentin 300 mg capsule 300 mg PO TID 06/15/17 [History Last Taken Unknown] hydrochlorothiazide 25 mg tablet 25 mg PO QDAY tab 06/15/17 [History Last Taken Unknown] tamsulosin 0.4 mg capsule 0.4 mg PO QDAY 06/15/17 [History Last Taken Unknown] finasteride 5 mg tablet 5 mg PO QDAY 06/16/17 [History Last Taken Unknown] lisinopril 40 mg tablet 40 mg PO QDAY 06/16/17 [History Last Taken 05/29/21] multivitamin 1 tab PO QDAY 06/16/17 [History Last Taken Unknown] insulin lispro 200 unit/mL (3 mL) subcutaneous pen 0 unit SC TID ml 05/17/18 [History Last Taken Unknown] calcium citrate 315 mg-vitamin D3 5 mcg (200 unit) tablet 2 tab PO BID 02/15/19 [History Last Taken Unknown] cholecalciferol (vitamin D3) 25 mcg (1,000 unit) capsule 1,000 unit PO DAILY 02/15/19 [History Last Taken Unknown] docusate sodium 100 mg capsule 200 mg PO DAILY cap 02/15/19 [History Last Taken Unknown] folic acid 400 mcg tablet 500 mcg PO BID tab 02/15/19 [History Last Taken Unknown] vitamins A,C,D-ocud-qhvagk 14,320 unit-226 mg-200 unit capsule 1 cap PO BID [History Last Taken Unknown] insulin glargine 100 unit/mL (3 mL) subcutaneous pen 10 unit SC QHS ml 05/18/20 [History Last Taken Unknown] pravastatin 40 mg tablet 80 mg PO QDAY tab 10/05/20 [History Last Taken Unknown] amlodipine 10 mg PO DAILY #30 tab 11/09/20 [Rx Last Taken 05/29/21] ezetimibe 10 mg tablet 10 mg PO DAILY #90 tab 04/22/21 [Rx Last Taken Unknown] Allergy/AdvReac Type Severity Reaction Status Date / Time levofloxacin [From Levaquin] Allergy Hives Verified 05/29/21 12:57 Family History (Reviewed 04/16/21 @ 09:05 by Hamzah Olvera COMPUTER FORENSICS EXAMINER, COMPUTER FORENSICS EXAMINER-C) Father Diabetes Hypertension Family history of hyperlipidemia Asthma Kidney disease Mother Diabetes Brother Cancer Throat cancer Brother CAD (coronary artery disease) Myocardial infarction, Onset Age: 52 Sister Family history of hyperlipidemia Hypertension Diabetes Unknown Alcoholism Arthritis Depression Diabetes Hypertension Hyperlipidemia Osteoporosis Respiratory disease Pancreatic cancer Other Family history of hypertension Surgical History (Reviewed 04/16/21 @ 09:05 by Hamzah Olvera COMPUTER FORENSICS EXAMINER, COMPUTER FORENSICS EXAMINER-C) Fracture of left patella Fracture of left upper extremity History of bilateral inguinal hernia repair (~2007) History of colonoscopy (~2013) History of hemorrhoidectomy (~2000) History of hernia repair (~1991) stent replacement for right sided kidney stome Wrist fracture, bilateral Social History (Reviewed 04/16/21 @ 09:05 by Hamzah Olvera COMPUTER FORENSICS EXAMINER, COMPUTER FORENSICS EXAMINER-C) Smoking Status: Former smoker how long ago did patient quit smokin alcohol intake: current alcohol intake frequency: a few times a month substance use type: does not use caffeine: Yes Type: coffee Number of servings: 2 what type of physical activity do you participate in: none seatbelt use: sometimes do you feel safe at home: Yes Vital Signs Vital Signs Vital Signs: 05/29/21 13:05 Temperature 99.2 F H Temperature Source Temporal Pulse Rate 85 Respiratory Rate 16 Respiratory Pattern Normal Blood Pressure 177/59 H Blood Pressure Mean 98 Blood Pressure Source Monitor Blood Pressure Position Semi-Fowlers Blood Pressure Location Right Arm Pulse Ox 97 Oxygen Delivery Method Room Air Weight Weight: 64 kg Body Mass Index (BMI) 21.4 Results Lab / Micro Data Labs: Laboratory Results - last 24 hr 05/29/21 13:11: POC Glucose 276 H
--- NOTE | 2021-05-29 14:43 | OP.PCM_ITS ---
Report of Operation Date of Procedure: 05/29/21 Pre-Operative Diagnosis: Possible right UPJ stone Post-Operative Diagnosis: The same Surgery/Procedure Performed:: Cystoscopy retrograde pyelogram Description of Surgical Findings:: Patient was taken back to the operating room, the 75-year-old male patient has been having some mild flank pain on the right side CT scan was done it was read that there was a possible stone in the UPJ on the right side and right review of the CAT scan at that this is more vascular calcification but the patient continues to have pain off and off on the right side so we will proceed with a cystoscopy retrograde pyelogram possible ureteroscopy if it looks like he has a stone. Patient was taken back to the operating room at the [facility] he was placed in dorsolithotomy position. The penis testicle prepped and draped in usual sterile fashion, under the bladder with a 21 [place] rigid cystourethroscope the entire length the urethra is normal the prostate normal slightly large prostate with no obstruction inside the bladder some mild trabeculation of the bladder no tumors stones seen within the bladder I then cannulated the right ureter orifice with a Pollick catheter performed a retrograde pyelogram could see contrast going up into the kidney contrast filling the renal pelvis there was no obstruction no hydronephrosis there is no blocking stone along the course of the ureter. We removed the Pollack catheter and allow the kidney to drain it look like is draining normally with no obstruction therefore I do not see a stone on the retrograde pyelogram I think the calcification seen on CAT scan was a vascular calcification and no other procedure was done the patient's bladder was drained the Pollick catheter was removed and is taken back to PACU in good condition. Surgeon: kieran Type of Anesthesia: General Drains: none Admit VTE Documentation VTE Present on Admission: No VTE Mechan Device Prophylaxis: SCD's VTE Pharm Prophylaxis ordered?: No
--- NOTE | 2021-05-29 14:43 | PCM.DC ---
Discharge Instructions Diet Discharge Diet: No restrictions Activity Discharge Activity: Return to Normal Activity and May Not Drive (while taking narcotic pain medications.) Dressing / Incision Call your doctor if you observe: Fever of 101 or Higher Follow Up Care Please Follow Up With: Brendon Bartlett MD When: Call [phone] for an appointment Test Results: Test results from this visit will be discussed in further detail at your follow-up appointment, if applicable. Discharge Plan Admission Primary Reason for Your Visit: possible stone Attending Provider: Brendon Bartlett Primary Care Provider: Fina Spicer NP Discharge Orders/Prescriptions Prescriptions: Continued hydrochlorothiazide 25 mg tablet 25 mg PO QDAY RF: 0 aspirin [Adult Low Dose Aspirin] 81 mg tablet,delayed release (DR/EC) 81 mg PO QDAY RF: 0 gabapentin 300 mg capsule 300 mg PO TID RF: 0 tamsulosin 0.4 mg capsule,extended release 24hr 0.4 mg PO QDAY RF: 0 finasteride [Proscar] 5 mg tablet 5 mg PO QDAY RF: 0 lisinopril 40 mg tablet 40 mg PO QDAY RF: 0 multivitamin tablet 1 tab PO QDAY RF: 0 Humalog KwikPen Insulin 200 unit/mL (3 mL) insulin pen 0 unit SC TID RF: 0 docusate sodium [Colace] 100 mg capsule 200 mg PO DAILY RF: 0 calcium citrate-vitamin D3 [Calcium Citrate + D] 315-200 mg-unit tablet 2 tab PO BID RF: 0 cholecalciferol (vitamin D3) 1,000 unit capsule 1,000 unit PO DAILY RF: 0 folic acid 400 mcg tablet 500 mcg PO BID RF: 0 Vision Formula (X-A-E-Zn-geovani) 14,320-226-200 qbwt-gt-bxxe capsule 1 cap PO BID RF: 0 Lantus Solostar U-100 Insulin 100 unit/mL (3 mL) insulin pen 10 unit SC QHS RF: 0 amlodipine 10 mg Tablet 10 mg PO DAILY Qty: 30 RF: 0 pravastatin 40 mg tablet 80 mg PO QDAY RF: 0 ezetimibe 10 mg tablet 10 mg PO DAILY Qty: 90 RF: 3 Referrals / Follow Up: Brendon Bartlett MD [STAFF PHYSICIAN] - Fina Spicer NP, CONTINUOUS [employer] BUTTERMAKER-C [Primary Care Provider] - Disposition Disposition (needs filled in before D/C Order can be placed): Home, Self Care
[2021-05-29 15:10] LABS: Bedside Glucose 281 mg/dL (70-110)
== END 2021-05-29 23:59 | disposition home or self-care (01) ==
LOC: SDC 12:40 → AC 12:46
PROVIDERS: PCP Nurse Practitioner; Referring Provider Urology; Visit Provider Urology
PROC: 0TJ98ZZ Inspection of Ureter, Via Natural or Artificial Opening Endoscopic (ICD-10-PCS; CPT 52352; principal; 2021-05-29 14:30)
DX: N28.89 Other specified disorders of kidney and ureter (principal); J44.9 Chronic obstructive pulmonary disease, unspecified; E10.36 Type 1 diabetes mellitus with diabetic cataract; E10.319 Type 1 diabetes mellitus with unspecified diabetic retinopathy without macular edema; E10.42 Type 1 diabetes mellitus with diabetic polyneuropathy; E10.22 Type 1 diabetes mellitus with diabetic chronic kidney disease; Z79.4 Long term (current) use of insulin; N18.30 Chronic kidney disease, stage 3 unspecified; I25.10 Atherosclerotic heart disease of native coronary artery without angina pectoris; Z79.82 Long term (current) use of aspirin; Z87.891 Personal history of nicotine dependence; Z79.899 Other long term (current) drug therapy; H91.93 Unspecified hearing loss, bilateral; Z87.442 Personal history of urinary calculi; I12.9 Hypertensive chronic kidney disease with stage 1 through stage 4 chronic kidney disease, or unspecified chronic kidney disease; M19.90 Unspecified osteoarthritis, unspecified site
CPT/HCPCS: 52005; 00910; 76000; 82962; J7120; C1769; J2310; J2405

== ENCOUNTER → 2021-08-10 | Outpatient (CLI) | payer MEDICARE, OTHER, SELFPAY ==
[2021-08-10 10:51] LABS: AST(SGOT) 19 U/L (15-37); Alanine Aminotransfer ALT/SGPT 20 U/L (16-61); Albumin, Serum 2.9 g/dL (3.2-5.0); Alkaline Phosphatase 154 U/L (45-117); Anion Gap 5 (5-15); BUN 43 mg/dL (7-18); BUN/Creat Ratio 17.8 RATIO (10-20); Bilirubin, Direct 0.07 mg/dL (0.00-0.30); Calcium,Total 9.4 mg/dL (8.5-10.1); Chloride 103 mmol/L (98-107); Cholesterol 180 mg/dL (200); Creatinine, Serum 2.42 mg/dL (0.70-1.30); EST Glomerular Filtration Rate 28 mL/min (>60); Est Glom Filt Rate - Afr Amer 34 mL/min (>60); Globulin 3.6 g/dL (2.2-4.2); Glucose 206 mg/dL (74-106); High Density Lipoprotein 46 mg/dL; Potassium 3.9 mmol/L (3.5-5.1); Protein, Total 6.5 g/dL (6.4-8.2); Sodium Level 137 mmol/L (136-145); Triglycerides 90 mg/dL; Very Low Density Lipoprotein 18 mg/dL (5-40)
[2021-08-10 10:52] LABS: Protein, Urine (Random) 160.9 mg/dL (<11.9); Protein:Creat Ratio 3576 mg/g CRE (0-200)
== END | disposition home or self-care (01) ==
LOC: LAB 10:09
PROVIDERS: Internal Medicine Cardiovascular Disease; PCP Nurse Practitioner; Referring Provider Nurse Practitioner Adult Health; Visit Provider Nurse Practitioner Adult Health
DX: N18.32 Chronic kidney disease, stage 3b (principal); E78.2 Mixed hyperlipidemia; I25.10 Atherosclerotic heart disease of native coronary artery without angina pectoris
CPT/HCPCS: 36415; 80048; 80061; 80076; 82570; 84156

== ENCOUNTER → 2021-08-21 | Outpatient (CLI) | payer MEDICARE, OTHER, SELFPAY ==
--- NOTE | 2021-08-21 10:50 | RAD_ITS ---
STUDY: XR Knee 3 Views 08/21/2021 5:56 PM REASON FOR EXAM: Male, 75 years old. Bilateral Knee pain TECHNIQUE: XR Knee 3 Views RIGHT COMPARISON: None FINDINGS: Normal visualized distal femur. Normal visualized proximal tibia and fibula. Normal proximal tibiofibular articulation. There are atherosclerotic vascular calcifications. Normal medial femorotibial compartment. Normal lateral femorotibial compartment. Normal patellofemoral articulation. The soft tissue structures are unremarkable. RAD/Knee 3 Views IMPRESSION: There are no acute findings. Electronically Signed: Reji Gaviria MD at 17:56 EDT ,
--- NOTE | 2021-08-21 10:50 | RAD_ITS ---
STUDY: X-RAY - PELVIS AND BILATERAL HIP REASON FOR EXAM: Male, 75 years old. Bilateral Hip Pain TECHNIQUE: XR Hips Bilateral with Pelvis when performed; 2 Views COMPARISON: None. FINDINGS: There is a non-specific bowel gas pattern. There are atherosclerotic vascular calcifications of the pelvic arteries. There are degenerative changes of the lumbar spine. Normal bilateral iliac wings, sacroiliac joints and visualized sacrum. Normal bilateral superior and inferior pubic rami. Normal pubic symphysis. Normal bilateral ischial tuberosities. Normal visualized femoral head. Normal acetabulum. Normal hip joint. RAD/Hips B/L min 2 views w/ Pelvis IMPRESSION: No acute findings. Electronically Signed: Reji Gaviria MD at 17:57 EDT ,
--- NOTE | 2021-08-21 10:54 | RAD_ITS ---
STUDY: XR Knee 3 Views 08/21/2021 5:56 PM REASON FOR EXAM: Male, 75 years old. PAIN TECHNIQUE: XR Knee 3 Views LEFT COMPARISON: None FINDINGS: Normal visualized distal femur. Normal visualized proximal tibia and fibula. Normal proximal tibiofibular articulation. There are atherosclerotic vascular calcifications. Normal medial femorotibial compartment. Normal lateral femorotibial compartment. Normal patellofemoral articulation. The soft tissue structures are unremarkable. RAD/Knee 3 Views IMPRESSION: There are no acute findings. Electronically Signed: Reji Gaviria MD at 17:56 EDT ,
== END | disposition home or self-care (01) ==
LOC: MTRAD 10:50
PROVIDERS: PCP Internal Medicine; Referring Provider Internal Medicine; Visit Provider Internal Medicine
DX: M19.90 Unspecified osteoarthritis, unspecified site (principal)
CPT/HCPCS: 73521; 73562

== ENCOUNTER → 2021-09-20 | Outpatient (CLI) | payer MEDICARE, OTHER, SELFPAY ==
[2021-09-20 10:18] LABS: Glucose 240 mg/dL (74-106)
[2021-09-23 20:15] LABS: C-Peptide < 0.1 ng/mL (1.1-4.4)
== END | disposition home or self-care (01) ==
PROVIDERS: PCP Internal Medicine; Referring Provider Nurse Practitioner Family; Visit Provider Nurse Practitioner Family
DX: E10.65 Type 1 diabetes mellitus with hyperglycemia (principal)
CPT/HCPCS: 36415; 82947; 84681

== ENCOUNTER → 2021-09-24 | Outpatient (CLI) | payer MEDICARE, OTHER, SELFPAY ==
--- NOTE | 2021-09-24 13:55 | RAD_ITS ---
EXAM: XR CHEST, 2 VIEWS CLINICAL INDICATION: Chest Congestion TECHNIQUE: Frontal and lateral views of the chest. This report was created using [employer] report generation technology. COMPARISON: 12/10/2020 FINDINGS: LUNGS AND PLEURAL SPACES: There is calcified granuloma in the left upper lobe. No pneumothorax. No effusion. HEART: Unremarkable. Cardiac silhouette not enlarged. MEDIASTINUM: Central airways and mediastinal contour are unremarkable. BONES/JOINTS: Unremarkable. SOFT TISSUES: Unremarkable. RAD/Chest PA and Lateral IMPRESSION: No acute findings in the chest. Electronically Signed: Cristian Hernandez MD at 17:10 EDT ,
== END | disposition home or self-care (01) ==
LOC: MTRAD 13:54
PROVIDERS: PCP Internal Medicine; Referring Provider Internal Medicine; Visit Provider Internal Medicine
DX: J44.9 Chronic obstructive pulmonary disease, unspecified (principal)
CPT/HCPCS: 71046

== ENCOUNTER → 2021-10-08 | Outpatient (CLI) | payer MEDICARE, OTHER, SELFPAY ==
[2021-10-08 10:23] LABS: Glucose 327 mg/dL (74-106)
[2021-10-09 13:23] LABS: C-Peptide 0.1 ng/mL (1.1-4.4)
== END | disposition home or self-care (01) ==
LOC: MTLAB 08:08
PROVIDERS: PCP Internal Medicine; Referring Provider Nurse Practitioner Family; Visit Provider Nurse Practitioner Family
DX: E10.65 Type 1 diabetes mellitus with hyperglycemia (principal)
CPT/HCPCS: 36415; 82947; 84681

== ENCOUNTER 2021-11-08 11:06 | Outpatient (CLI) | payer MEDICARE, OTHER, SELFPAY ==
[2021-11-08 15:13] LABS: Hematocrit 27.4 % (40-54); Hemoglobin 8.9 g/dL (13.0-16.5); Mean Corp Hgb Conc 32.5 g/dL (32-36); Mean Corpuscular Hgb 29.6 pg (27.0-32.0); Mean Platelet Vol. 10.3 fl (6.2-12.0); Platelet Count 456 K/mm3 (150-450); RBC Distribution Width CV 13.6 % (11.6-14.6); RBC Distribution Width SD 45.1 fl (35.1-43.9); Red Blood Count 3.01 M/mm3 (4.6-6.2); White Blood Count 5.6 K/mm3 (4.4-11.0)
[2021-11-08 15:24] LABS: PTHIN 22.9 pg/mL (18.4-80.1)
[2021-11-08 15:27] LABS: BUN 52 mg/dL (7-18); BUN/Creat Ratio 21.6 RATIO (10-20); Chloride 102 mmol/L (98-107); Creatinine, Serum 2.41 mg/dL (0.70-1.30); EST Glomerular Filtration Rate 28 mL/min (>60); Est Glom Filt Rate - Afr Amer 34 mL/min (>60); Glucose 151 mg/dL (74-106); Phosphorus 3.2 mg/dL (2.5-4.9); Potassium 4.2 mmol/L (3.5-5.1); Sodium Level 136 mmol/L (136-145)
[2021-11-08 15:28] LABS: Vitamin D,25 Hydroxy 73.2 ng/mL
[2021-11-08 15:37] LABS: Protein, Urine (Random) 316.6 mg/dL (<11.9); Protein:Creat Ratio 4090 mg/g CRE (0-200)
== END 2021-11-08 23:59 | disposition home or self-care (01) ==
LOC: MTLAB 11:07
PROVIDERS: PCP Internal Medicine; Referring Provider Internal Medicine Nephrology; Visit Provider Internal Medicine Nephrology
DX: N18.32 Chronic kidney disease, stage 3b (principal); E55.9 Vitamin D deficiency, unspecified; D64.9 Anemia, unspecified
CPT/HCPCS: 36415; 80069; 82306; 82570; 83970; 84156; 85027

== ENCOUNTER → 2021-11-26 | Outpatient (CLI) | payer MEDICARE, OTHER, SELFPAY ==
--- NOTE | 2021-11-26 07:47 | CT_ITS ---
EXAM: CT CHEST, LUNG CANCER SCREENING WITHOUT INTRAVENOUS CONTRAST CLINICAL INDICATION: h/o Tobacco Dependency TECHNIQUE: Helically acquired images were obtained of the chest without intravenous contrast using low dose (LDCT) lung cancer screening protocol. This CT exam was performed using one or more of the following dose reduction techniques: automated exposure control, adjustment of the mA and/or kV according to patient size, and/or use of iterative reconstruction technique. This report was created using [employer] report generation technology. COMPARISON: CT Lung Cancer Screening dated 12/05/2020 FINDINGS: LUNGS AND PLEURAL SPACES: Calcified granuloma within the left upper lobe increasing. Linear scarring within the right lower lobe. Diffuse centrilobular pulmonary emphysema. No evidence of a lung mass suspicious pulmonary nodule. No pleural effusion or thickening. No pneumothorax. HEART: Stable mild cardiomegaly. Coronary artery stents noted. No pericardial effusion. MEDIASTINUM: Normal. No mediastinal or hilar adenopathy. Esophagus is unremarkable. No hiatal hernia. THYROID: Normal. No thyroid lesions. BONES/JOINTS: Normal. No suspicious lytic or blastic abnormality. VASCULATURE: Normal. Thoracic aorta is non-dilated. LYMPH NODES: Normal. No enlarged lymph nodes. CT/Low Dose CT Lung Screening IMPRESSION: 1. No evidence of a lung mass or suspicious pulmonary nodule. Pulmonary emphysema. 2. ACR Lung CT Screening Reporting T Data System (Lung-RADS) score: 1S - Additional clinically significant or potentially clinically significant findings are described. Recommend continued annual screening with low-dose CT (LDCT) in 12 months. Electronically Signed: Clyde Arevalo MD at 8:53 EDT ,
--- NOTE | 2021-11-26 13:18 | PFTCOMP_ITS ---
COMPLETE PULMONARY FUNCTION TEST INTERPRETATION Brief HPI: Patient is a 76-year-old male, currently under the care of Dr. Vásquez, who presents to [facility] for complete pulmonary function tests secondary to diagnosis of COPD. Respiratory therapist reports good effort and reproducible results. Interpretation: Forced expiration spirometry shows no large airways obstructive ventilatory defect with an FEV1 of 83% predicted. There is no significant bronchodilator response by strict ATS criteria. Spirograms are of good quality and plateau slowly, indicating slowly emptying areas of the lungs. The respiratory flow volume loop shows decreased expiratory flow rates at high lung volumes con sistent with small airways obstruction. Lung volumes by body plethysmography show a normal total lung capacity at 6.47 L, 109% predicted. All other lung volumes are within normal limits. Diffusion capacity by carbon monoxide is decreased at 58% predicted. The airway resistance is normal. Compared to previous pulmonary function tests from 12/24/2020, there is been a significant reduction in DLCO by 30%. Impression: Isolated reduction in diffusion capacity with some stigmata of small airways disease
== END | disposition home or self-care (01) ==
PROVIDERS: PCP Internal Medicine; Referring Provider Internal Medicine Critical Care Medicine; Visit Provider Internal Medicine Critical Care Medicine
DX: J44.9 Chronic obstructive pulmonary disease, unspecified (principal); F17.210 Nicotine dependence, cigarettes, uncomplicated
CPT/HCPCS: 71271; 94060; 94726; 94729

== ENCOUNTER → 2021-12-25 | Outpatient (CLI) | payer MEDICARE, OTHER, SELFPAY ==
[2021-12-25 12:30] LABS: Glucose 195 mg/dL (74-106)
[2021-12-25 12:45] LABS: CRP 4.01 mg/L (0.0-3.0)
[2021-12-25 12:48] LABS: Erythrocyte Sedimentation Rate 21 mm/hr (0-20)
[2021-12-25 12:49] LABS: Absolute Lymphocyte Count 0.93 X10^3/uL (0.83-4.51); Absolute Neutrophil Count 2.5 X10^3/uL (2.0-7.7); Basophil# 0.02 X10^3/uL; Basophil% 0.5 % (0-1); Eosinophil# 0.11 X10^3/uL; Eosinophils% 2.7 % (0-5); Hemoglobin 10.1 g/dL (13.0-16.5); Lymphocyte # 0.93 X10^3/ul (0.83-4.51); Mean Corp Hgb Conc 32.6 g/dL (32-36); Mean Corpuscular Hgb 29.4 pg (27.0-32.0); Mean Corpuscular Volume 90.1 fL (80-94); Mean Platelet Vol. 10.1 fl (6.2-12.0); Monocyte# 0.45 X10^3/uL; Monocyte% 11.1 % (0-10); NRBC Flagged by Analyzer 0 % (0-5); Neutrophil # 2.53 X10^3/uL (2.7-7.7); Neutrophil % 62.5 % (47-70); Platelet Count 306 K/mm3 (150-450); RBC Distribution Width CV 13.2 % (11.6-14.6); RBC Distribution Width SD 43.4 fl (35.1-43.9); Red Blood Count 3.44 M/mm3 (4.6-6.2); White Blood Count 4.1 K/mm3 (4.4-11.0)
[2021-12-26 16:21] LABS: C-Peptide < 0.1 ng/mL (1.1-4.4)
[2021-12-27 16:02] LABS: Vitamin B12 1299 pg/mL (211-911)
[2021-12-27 16:03] LABS: Ferritin 91 ng/mL (26-388); Iron 34 ug/dL (65-175); Iron Binding Capacity,Total 157 ug/dL (250-450)
== END | disposition home or self-care (01) ==
LOC: BIMLAB 10:47
PROVIDERS: Nurse Practitioner Family; PCP Internal Medicine; Referring Provider Internal Medicine; Visit Provider Internal Medicine
DX: E10.65 Type 1 diabetes mellitus with hyperglycemia (principal); R63.4 Abnormal weight loss; D64.9 Anemia, unspecified
CPT/HCPCS: 36415; 82607; 82728; 82947; 83540; 83550; 84681; 85025; 85652; 86140

== ENCOUNTER → 2021-12-26 | Outpatient (CLI) | payer MEDICARE, OTHER, SELFPAY | END | disposition home or self-care (01) | LOC: LABSPEC 10:06 | PROVIDERS: PCP Internal Medicine; Referring Provider Internal Medicine; Visit Provider Internal Medicine | DX: R63.4 Abnormal weight loss (principal) | CPT/HCPCS: 82274 ==

== ENCOUNTER → 2022-01-02 | Outpatient (CLI) | payer MEDICARE, OTHER, SELFPAY ==
--- NOTE | 2022-01-02 14:47 | CT_ITS ---
INDICATION: Weight loss, Shortness of breath, Tobacco abuse EXAMINATION: CT CHEST WITHOUT CONTRAST - CT Chest W/O Contrast Injection TECHNIQUE: Helically acquired images were obtained of the chest. A radiation dose optimization technique was used for this scan. IV Contrast dosage and agent: None. COMPARISON: 11/26/2021.. FINDINGS: LUNGS, PLEURA AND LARGE AIRWAYS: 0.5 cm calcified granuloma visualized in the posterior lateral left upper lobe seen on axial series 2 image 26. 0.7 cm calcified granuloma visualized in the anterior left lingular lobe seen on axial series 2 image 53. Scattered emphysematous changes visualized. No evidence of parenchymal lung masses, no evidence of focal lung infiltrate or consolidation. No pleural effusion or thickening. No pneumothorax. THYROID: No thyroid lesions. HEART AND PERICARDIUM: Mild prominence of the cardiovascular silhouette is seen. No pericardial effusion. Extensive calcification of the coronary vessels versus stents involving more than two thirds of the left anterior descending and approximately 1-2/3 of the left circumflex coronary artery. VESSELS: Extensive atherosclerotic calcifications visualized in the thoracic aorta but no evidence of aneurysmal dilatation or arterial dissection is seen. MEDIASTINUM AND ENEIDA: A 1.1 cm hyperdense mass/lymph node/nodule is visualized in the superior mediastinum along the anterior aspect of the left innominate vein Precarinal lymph node visualized on axial series 2 image 52 measuring 1.3 cm. Subtle scattered hilar mediastinal lymph nodes are seen measuring less than 1 cm.. Esophagus is unremarkable. No hiatal hernia. UPPER ABDOMEN: No acute pathology. Increased attenuation of the liver, no evidence of hepatic masses seen. Abundance of stool visualized in the large bowel. BONES: No suspicious lytic or blastic abnormality. Degenerative bone changes seen. CT/Chest without Contrast IMPRESSION: 1.1 cm hyperdense mass/lymph node/nodule is visualized in the superior mediastinum. No evidence of parenchymal lung masses is seen. Electronically Signed: Terry Trivedi MD at 9:19 EDT Reading Location ID and State: [facility] / [place] Tel , Service support ,
== END | disposition home or self-care (01) ==
LOC: CT 14:24
PROVIDERS: PCP Internal Medicine; Visit Provider Internal Medicine
DX: R06.09 Other forms of dyspnea (principal); R63.4 Abnormal weight loss; D64.9 Anemia, unspecified
CPT/HCPCS: 71250

== ENCOUNTER → 2022-02-11 | Outpatient (CLI) | payer MEDICARE, OTHER, SELFPAY ==
[2022-02-11 15:27] LABS: Absolute Lymphocyte Count 0.96 X10^3/uL (0.83-4.51); Absolute Neutrophil Count 3.5 X10^3/uL (2.0-7.7); Basophil# 0.03 X10^3/uL; Basophil% 0.6 % (0-1); Eosinophil# 0.09 X10^3/uL; Eosinophils% 1.8 % (0-5); Hematocrit 31.3 % (40-54); Hemoglobin 10.6 g/dL (13.0-16.5); Lymphocyte # 0.96 X10^3/ul (0.83-4.51); Lymphocyte % 18.9 % (19-41); Mean Corp Hgb Conc 33.9 g/dL (32-36); Mean Corpuscular Hgb 31.2 pg (27.0-32.0); Mean Corpuscular Volume 92.1 fL (80-94); Monocyte# 0.48 X10^3/uL; Monocyte% 9.5 % (0-10); NRBC Flagged by Analyzer 0 % (0-5); Platelet Count 377 K/mm3 (150-450); RBC Distribution Width CV 13.2 % (11.6-14.6); RBC Distribution Width SD 44.6 fl (35.1-43.9); White Blood Count 5.1 K/mm3 (4.4-11.0)
[2022-02-11 17:17] LABS: ALB/GLOB Ratio 0.9 RATIO (0.9-2.4); AST(SGOT) 36 U/L (15-37); Alanine Aminotransfer ALT/SGPT 37 U/L (16-61); Alkaline Phosphatase 129 U/L (45-117); Anion Gap 5 (5-15); BUN 56 mg/dL (7-18); BUN/Creat Ratio 20.7 RATIO (10-20); Calcium,Total 9.2 mg/dL (8.5-10.1); Chloride 102 mmol/L (98-107); Creatinine, Serum 2.71 mg/dL (0.70-1.30); EST Glomerular Filtration Rate 24 mL/min (>60); Est Glom Filt Rate - Afr Amer 29 mL/min (>60); Globulin 3.5 g/dL (2.2-4.2); Glucose 55 mg/dL (74-106); Potassium 4.2 mmol/L (3.5-5.1); Protein, Total 6.5 g/dL (6.4-8.2); Sodium Level 139 mmol/L (136-145)
== END | disposition home or self-care (01) ==
LOC: BIMLAB 14:18
PROVIDERS: PCP Internal Medicine; Visit Provider Physician Assistant
DX: R42 Dizziness and giddiness (principal); D64.9 Anemia, unspecified
CPT/HCPCS: 36415; 80053; 82746; 85025

== ENCOUNTER → 2022-02-12 | Outpatient (CLI) | payer MEDICARE, OTHER, SELFPAY ==
--- NOTE | 2022-02-12 11:00 | PET_ITS ---
EXAMINATION: FDG PET/CT ? INDICATIONS: 76-year-old male with a history of pulmonary nodularity. ? COMPARISON EXAMINATION: CT of the chest report 11/26/2021 ? INDEX LESION SIZE SUV INTERPRETATION Bilateral hemithorax pulmonary parenchyma, right-left lower lobes ? 1.3 max Quantitative criteria for viable neoplasm are not fulfilled, sequential radiologic investigation recommended. ? TECHNIQUE: Following the intravenous administration of 13.22 mCi of F-18 deoxyglucose via the right antecubital fossa, multiplanar image acquisitions of the neck, chest, abdomen and pelvis to the level of the midthigh, obtained at one-hour post radiopharmaceutical administration contemporaneously interpreted with CT of the chest report 11/26/2021 reveal: ? SERUM GLUCOSE LEVEL:? 267 mg/dL? HEIGHT:?? 67 inches WEIGHT:?? 135 pounds ? FINDINGS: ? HEAD/NECK:? There is no evidence of abnormal increased glucose metabolism in the pharyngeal mucosal space, parapharyngeal space, oropharynx, bilateral-lateral and anterior neck, hypopharynx and distribution of the larynx. ? The visualized portion of the cerebral cortical-subcortical structures demonstrate symmetric and preserved glucose metabolism. ? CHEST:? Subtle increased FDG uptake is noted in the bilateral posteromedial lung zones, right and left lower lobes demonstrating a calculated maximum standard uptake value of 1.3. Quantitative criteria for viable neoplasm are not fulfilled.? There is prominent radiopharmaceutical concentration noted in the descending thoracic aorta extending into the abdominal aorta consistent with activated leukocytes associated with atherosclerotic plaque formation. ? CT of the chest demonstrates the following anatomic characteristics: Atherosclerotic calcification is defined in the ascending and descending thoracic aorta with the maximal axial diameter of the ascending thoracic aorta noted to be 41.7 mm. Extensive pulmonary arterial calcification is observed. Calcified densities defined in the bilateral hemithorax are nonglucose avid. Right and left axillary soft tissue densities are ametabolic. ? ABDOMEN/PELVIS:? Normal physiologic distribution of the radiopharmaceutical is identified in the hepatic (3.4) and splenic parenchyma, both renal units, urinary bladder, and visualized intestinal tract. ? CT of the abdomen and pelvis is remarkable for the following: Atherosclerotic calcification is defined in the abdominal aorta without evidence of dilatation, aneurysm formation. Abdominal and pelvic arterial calcification is observed. Colonic diverticulosis is noted without evidence of diverticulitis. Right and left inguinal soft tissue densities with fatty hilus are nonglucose avid. Calcifications are defined in the bilateral lower hemipelvis. Postprocedural changes noted in the lower bilateral anterior pelvic wall. ? SKELETAL:? A mild lumbar scoliosis is defined. There is no evidence of quantitatively significant enhanced glucose metabolism on meticulous inspection of the appendicular and axial skeletal structures. ? Degenerative changes defined in the thoracic and lumbar spine demonstrate no evidence of increased glucose metabolism. ? PET/PET/CT Tumor Base -Thigh Init IMPRESSION: 1. NEGATIVE EXAMINATION. There is no definitive quantitative scintigraphic evidence of viable neoplasm. 2. Enhanced tracer uptake noted in the bilateral lower posteromedial lung zones- right and left lower lobes do not fulfill quantitative criteria for viable neoplasm. (Livingston et al, Journal of Nuclear Medicine, 32:1, 1991) 3. Metabolic-morphologic stability may be ensured in the bilateral hemithorax parenchymal abnormalities with repeat FDG PET imaging and/or CT of the chest in 6-9 months if clinically indicated. (Letty, Seminars in Thoracic and Cardiovascular surgery, 14:292, 2002). Electronic Signature Sebastian Vega D.O. Accurate Quantification of SUVs for this report are calculated using the exclusive [employer]. (U.S. Patent No. 10, [id number] 983). Standardization and correction of the FDG SUV metric via [employer] technology allow for vendor non-specific objective quantitative examination comparison and optimization of the sensitivity and specificity of the FDG PET-CT examination ? Electronically Signed: Sebastian Vega, at 20:35 EDT ,
== END | disposition home or self-care (01) ==
LOC: ONC 10:41
PROVIDERS: PCP Internal Medicine; Referring Provider Nurse Practitioner Acute Care; Visit Provider Nurse Practitioner Acute Care
DX: R91.8 Other nonspecific abnormal finding of lung field (principal); J98.59 Other diseases of mediastinum, not elsewhere classified
CPT/HCPCS: 78815; A9552

== ENCOUNTER → 2022-02-14 | Outpatient (CLI) | payer MEDICARE, OTHER, SELFPAY ==
[2022-02-14 12:59] LABS: AST(SGOT) 48 U/L (15-37); Alanine Aminotransfer ALT/SGPT 40 U/L (16-61); Albumin, Serum 2.9 g/dL (3.2-5.0); Alkaline Phosphatase 120 U/L (45-117); Anion Gap 8 (5-15); BUN 66 mg/dL (7-18); BUN/Creat Ratio 25.7 RATIO (10-20); Bilirubin, Direct 0.07 mg/dL (0.00-0.30); Calcium,Total 8.7 mg/dL (8.5-10.1); Chloride 101 mmol/L (98-107); Cholesterol 192 mg/dL (200); Creatinine, Serum 2.57 mg/dL (0.70-1.30); EST Glomerular Filtration Rate 26 mL/min (>60); Est Glom Filt Rate - Afr Amer 31 mL/min (>60); Globulin 3.4 g/dL (2.2-4.2); Glucose 124 mg/dL (74-106); High Density Lipoprotein 56 mg/dL; Potassium 4.4 mmol/L (3.5-5.1); Protein, Total 6.3 g/dL (6.4-8.2); Sodium Level 139 mmol/L (136-145); Triglycerides 132 mg/dL; Very Low Density Lipoprotein 26 mg/dL (5-40)
[2022-02-14 13:09] LABS: Protein, Urine (Random) 158.4 mg/dL (<11.9); Protein:Creat Ratio 2188 mg/g CRE (0-200)
== END | disposition home or self-care (01) ==
LOC: BIMLAB 11:09
PROVIDERS: Internal Medicine Cardiovascular Disease; PCP Internal Medicine; Referring Provider Internal Medicine Nephrology; Visit Provider Internal Medicine Nephrology
DX: I12.9 Hypertensive chronic kidney disease with stage 1 through stage 4 chronic kidney disease, or unspecified chronic kidney disease (principal); N18.32 Chronic kidney disease, stage 3b
CPT/HCPCS: 36415; 80048; 80061; 80076; 82570; 84156

== ENCOUNTER 2022-03-14 04:10 | Emergency (ER) | payer MEDICARE, OTHER, SELFPAY ==
[2022-03-14 04:10] VITALS: BP 193/95; PULSE 80; RESP 16; TEMP 36.1; O2SAT 98; BMI 21.1
--- NOTE | 2022-03-14 04:32 | EX.ED.UPPERE ---
HPI History of Present Illness Chief Complaint: Upper Extremity Injury Narrative Narrative: 76-year-old male here for left wrist pain after fall. Notes mechanical fall from standing approximately 18 hours ago. States he is constant, severe left wrist pain. Pain is worse with movement, palpation improved at rest. Pain does not radiate. Notes history of a possible fracture of this wrist but no history of surgery. Old chart reviewed: History of hypertension, hyperlipidemia, type 1 diabetes No recent imaging of the involved extremity PFSH [facility] Medical History Alcohol use Anemia Arthritis Atherosclerotic heart disease of [place] coronary artery without angina pectoris Back pain Back problem Bone fracture Bronchitis Cardiology follow-up encounter Cataracts, bilateral CKD (chronic kidney disease), stage IV COPD (chronic obstructive pulmonary disease) Diabetic retinopathy associated with type 1 diabetes mellitus Dietary restriction Dyspnea on exertion Essential hypertension Family history of hyperlipidemia Family history of hypertension Former smoker Headache Hearing loss, left Hearing loss, right Hearing problem High cholesterol History of echocardiogram History of pain when walking History of stress test Hyperlipidemia Hypertension Hypertension 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 Kidney stones FCI use of drug Mixed hyperlipidemia Nicotine abuse Olecranon bursitis, right elbow Osteoarthritis Osteopenia Prostate disease Shortness of breath on exertion Sleep apnea Smoker Swelling of right elbow Unintentional weight loss of more than 10 pounds Vision problem Wears dentures Wears glasses Wears hearing aid Wears hearing aid in both ears Home Medications aspirin 81 mg tablet,delayed release (Adult Low Dose Aspirin) 81 mg PO QDAY 06/15/17 [History Last Taken 05/27/21] gabapentin 300 mg capsule 300 mg PO TID 06/15/17 [History Last Taken Unknown] tamsulosin 0.4 mg capsule 0.4 mg PO QDAY 06/15/17 [History Last Taken Unknown] finasteride 5 mg tablet (Proscar) 5 mg PO QDAY 06/16/17 [History Last Taken Unknown] lisinopril 40 mg tablet 40 mg PO QDAY 06/16/17 [History Last Taken 05/29/21] multivitamin 1 tab PO QDAY 06/16/17 [History Last Taken Unknown] calcium citrate 315 mg-vitamin D3 5 mcg (200 unit) tablet (Calcium Citrate + D) 2 tab PO BID 02/15/19 [History Last Taken Unknown] cholecalciferol (vitamin D3) 25 mcg (1,000 unit) capsule 1,000 unit PO DAILY 02/15/19 [History Last Taken Unknown] docusate sodium 100 mg capsule (Colace) 200 mg PO DAILY 02/15/19 [History Last Taken Unknown] folic acid 400 mcg tablet 500 mcg PO BID 02/15/19 [History Last Taken Unknown] vitamins A,C,S-gnhv-ofjkal 14,320 unit-226 mg-200 unit capsule (Vision Formula (S-E-R-zinc-copper)) 1 cap PO BID 02/15/19 [History Last Taken Unknown] pravastatin 40 mg tablet 80 mg PO QDAY 10/05/20 [History Last Taken Unknown] amlodipine 10 mg tablet 10 mg PO DAILY #30 tabs 11/09/20 [Rx Last Taken 05/29/21] ezetimibe 10 mg tablet 10 mg PO DAILY #90 tabs 04/22/21 [Rx Last Taken Unknown] furosemide 20 mg tablet 20 mg PO BID 3 months #180 tabs 09/23/21 [Rx Last Taken Unknown] insulin glargine 100 unit/mL (3 mL) subcutaneous pen (Lantus Solostar U-100 Insulin) 10 unit subcut DAILY 10/24/21 [History Last Taken Unknown] insulin lispro 200 unit/mL (3 mL) subcutaneous pen (Humalog KwikPen U-200 Insulin) See Rx Instructions subcut TID 10/24/21 [History Last Taken Unknown] ferrous sulfate 325 mg (65 mg iron) tablet 325 mg PO DAILY #90 tabs 12/30/21 [Rx Last Taken Unknown] insulin lispro 100 unit/mL subcutaneous solution (Humalog U-100 Insulin) 100 unit continuous subcutaneous infusion .continuous #90 mL 01/27/22 [Rx Last Taken Unknown] metoprolol succinate 25 mg tablet,extended release 24 hr 25 mg PO DAILY #30 tabs 02/20/22 [Rx Last Taken Unknown] Allergy/AdvReac Type Severity Reaction Status Date / Time levofloxacin [From Levaquin] Allergy Hives Verified 03/14/22 04:12 Family History Father Diabetes Hypertension Family history of hyperlipidemia Asthma Kidney disease Mother Diabetes Brother Cancer Throat cancer Brother CAD (coronary artery disease) Myocardial infarction, Onset Age: 52 Sister Family history of hyperlipidemia Hypertension Diabetes Unknown Alcoholism Arthritis Depression Diabetes Hypertension Hyperlipidemia Osteoporosis Respiratory disease Pancreatic cancer Other Family history of hypertension Surgical History Fracture of left patella Fracture of left upper extremity History of bilateral inguinal hernia repair (~2007) History of colonoscopy (~2013) History of hemorrhoidectomy (~2000) History of hernia repair (~1991) stent replacement for right sided kidney stome Wrist fracture, bilateral Social History Smoking Status: Former smoker Tobacco: How many years used: 50 alcohol intake: current alcohol intake frequency: a few times a month substance use type: does not use caffeine: Yes Type: coffee Number of servings: 2 what type of physical activity do you participate in: none seatbelt use: sometimes do you feel safe at home: Yes ROS ROS ED ROS Narrative Constitutional: Denies fever HEENT: Denies sore throat Neck: Denies neck pain Cardiovascular: Denies chest pain, syncope Respiratory: Denies shortness of breath GI: Denies nausea vomiting or abdominal pain : Denies changes in urinary habits Musculoskeletal: Endorses wrist pain Neurologic: Denies numbness weakness or loss of sensation Skin denies rash EXAM Physical Exam Narrative Exam Narrative: Nursing triage notes reviewed, Vital signs reviewed Constitutional: please see mdm HENT: MMM Eyes: Pupils equal round and reactive to light, Extraocular muscles intact Neck: No stridor, no JVD, full neck ROM Lungs: Clear to auscultation, No wheezing or rales. No increased work of breathing, no conversational dyspnea, no accessory muscle use, no nasal flaring. No respiratory distress noted Heart: Regular rate and rhythm, No murmurs, No rubs and No gallops, 2+ distal pulses (radial, femoral, posterior tibial) in all extremities Abdomen: Soft, there is no tenderness, rigidity, rebound or guarding, no obvious peritoneal signs, no palpable pulsatile abdominal masses, no auscultated abdominal bruit : No CVAT Extremities: No edema, no obvious deformity, TTP over left wrist, positive snuffbox tenderness Neuro: Intact 5/5 strength with ok sign (median), intact finger abduction (ulnar) intact wrist extension (radial n). Intact sensation in the radial, ulnar, and median nerve distributions. Skin: No rash or lesions noted Const Vital Signs: 03/14/22 04:10 Temperature 97 F L Temperature Source Temporal Pulse Rate 80 Respiratory Rate 16 Blood Pressure 193/95 H Blood Pressure Mean 127 Pulse Ox 98 Oxygen Delivery Method Room Air MDM MDM MDM Narrative Medical decision making narrative: 76-year-old male here with left wrist pain. Patient was hemodynamically stable, afebrile, nontoxic-appearing. Left upper extremity is neurovascularly intact positive snuffbox tenderness. X-ray showed no fracture dislocation. Placed in a wrist splint with close orthopedic follow-up given concern for occult scaphoid fracture. Discharge Plan Triage Chief Complaint: Upper Extremity Injury ED Provider: Cabrera Sotelo Dx/Rx/DC Orders Clinical Impression: Contusion of left wrist Instructions: Bone Contusion Prescriptions: No Action aspirin [Adult Low Dose Aspirin] 81 mg tablet,delayed release (DR/EC) 81 mg PO QDAY gabapentin 300 mg capsule 300 mg PO TID tamsulosin 0.4 mg capsule,extended release 24hr 0.4 mg PO QDAY finasteride [Proscar] 5 mg tablet 5 mg PO QDAY lisinopril 40 mg tablet 40 mg PO QDAY multivitamin tablet 1 tab PO QDAY Humalog KwikPen Insulin 200 unit/mL (3 mL) insulin pen See Rx Instructions SC TID Rx Instructions: sliding scale subcutaneously three times a day; sliding scale docusate sodium [Colace] 100 mg capsule 200 mg PO DAILY calcium citrate-vitamin D3 [Calcium Citrate + D] 315-200 mg-unit tablet 2 tab PO BID cholecalciferol (vitamin D3) 1,000 unit capsule 1,000 unit PO DAILY folic acid 400 mcg tablet 500 mcg PO BID Vision Formula (V-W-P-Zn-geovani) 14,320-226-200 sfrv-gq-fwkg capsule 1 cap PO BID Lantus Solostar U-100 Insulin 100 unit/mL (3 mL) insulin pen 10 unit SC DAILY furosemide 20 mg tablet 20 mg PO BID 90 Days Qty: 180 2RF Rx Instructions: Take in Am and at Noon amlodipine 10 mg Tablet 10 mg PO DAILY Qty: 30 0RF pravastatin 40 mg tablet 80 mg PO QDAY ezetimibe 10 mg tablet 10 mg PO DAILY Qty: 90 3RF ferrous sulfate 325 mg (65 mg iron) tablet 325 mg PO DAILY Qty: 90 1RF insulin lispro [Humalog U-100 Insulin] 100 unit/mL solution 100 unit continuous subcutaneous infusion .continuous Qty: 90 1RF metoprolol succinate 25 mg tablet extended release 24 hr 25 mg PO DAILY Qty: 30 3RF Primary Care Provider: Cesar Keenan Referrals: Cesar Keenan MD [Primary Care Provider] - Andreas Nichole DO [Med Staff - Active Staff] - Activity Restrictions/Additional Instructions: Please wear wrist brace is much as possible. Please return if develop loss of sensation, numbness tingling, discoloration of the involved extremity. Please take Tylenol, ibuprofen every 6 hours for pain control. These follow-up with orthopedic surgeon for reevaluation given concern for hidden fracture of one of your wrist bones. Disposition Disposition: Home, Self Care
--- NOTE | 2022-03-14 05:23 | RAD_ITS ---
STUDY: X-RAY - LEFT WRIST REASON FOR EXAM: Male, 76 years old. Wrist pain TECHNIQUE: 3 view(s) of the wrist were obtained. COMPARISON: 09/08/2012 FINDINGS: There is demineralization of the radius and ulna. There is degenerative arthrosis of the radiocarpal articulation. There is visualized prior injury to the ulnar styloid process. Stable since prior study September 08, 2012. There is degenerative arthrosis of the distal radioulnar articulation. There is demineralization of the carpal bones. There is degenerative arthrosis of the carpal articulations at the level of the scaphoid trapezium.. There is degenerative arthrosis of the carpometacarpal articulation of the thumb. Normal second through fifth carpometacarpal articulations. There is persistent degenerative change especially at the level of the second and third metacarpophalangeal joints. The soft tissue structures are unremarkable. RAD/Wrist min 3 Views IMPRESSION: Bony osteopenia. Degenerative change. Similar in appearance to the prior study with slightly greater heterotopic bone around the ulnar styloid process. No visualized acute fracture. Electronically Signed: Angelita Hyatt MD at 5:53 EST ,
[2022-03-14] MEDS: Ibuprofen 200 MG Tablet 400 MG PO (05:32)
== END 2022-03-14 06:09 | disposition home or self-care (01) ==
PROVIDERS: Emergency Provider Emergency Medicine; PCP Internal Medicine; Visit Provider Emergency Medicine
DX: S60.212A Contusion of left wrist, initial encounter (principal); J44.9 Chronic obstructive pulmonary disease, unspecified; E10.22 Type 1 diabetes mellitus with diabetic chronic kidney disease; N18.4 Chronic kidney disease, stage 4 (severe); I25.10 Atherosclerotic heart disease of native coronary artery without angina pectoris; E78.5 Hyperlipidemia, unspecified; I12.9 Hypertensive chronic kidney disease with stage 1 through stage 4 chronic kidney disease, or unspecified chronic kidney disease; Z87.891 Personal history of nicotine dependence; W19.XXXA Unspecified fall, initial encounter
CPT/HCPCS: 73110; 99282

== ENCOUNTER → 2022-05-12 | Outpatient (CLI) | payer MEDICARE, OTHER, SELFPAY ==
[2022-05-12 10:19] LABS: Hematocrit 28.3 % (40-54); Hemoglobin 9.5 g/dL (13.0-16.5); Mean Corp Hgb Conc 33.6 g/dL (32-36); Mean Corpuscular Hgb 30.4 pg (27.0-32.0); Mean Corpuscular Volume 90.7 fL (80-94); Mean Platelet Vol. 10.5 fl (6.2-12.0); Platelet Count 385 K/mm3 (150-450); RBC Distribution Width CV 13.1 % (11.6-14.6); RBC Distribution Width SD 42.5 fl (35.1-43.9); Red Blood Count 3.12 M/mm3 (4.6-6.2); White Blood Count 6.2 K/mm3 (4.4-11.0)
[2022-05-12 10:28] LABS: Protein, Urine (Random) 190.8 mg/dL (<11.9); Protein:Creat Ratio 4406 mg/g CRE (0-200)
[2022-05-12 10:32] LABS: Albumin, Serum 3.3 g/dL (3.2-5.0); BUN 63 mg/dL (7-18); BUN/Creat Ratio 20.6 RATIO (10-20); Calcium,Total 9.6 mg/dL (8.5-10.1); Chloride 100 mmol/L (98-107); Creatinine, Serum 3.06 mg/dL (0.70-1.30); EST Glomerular Filtration Rate 21 mL/min (>60); Est Glom Filt Rate - Afr Amer 26 mL/min (>60); Glucose 284 mg/dL (74-106); Phosphorus 2.6 mg/dL (2.5-4.9); Potassium 3.8 mmol/L (3.5-5.1); Sodium Level 138 mmol/L (136-145)
[2022-05-12 10:35] LABS: Vitamin D,25 Hydroxy 60.6 ng/mL
== END | disposition home or self-care (01) ==
LOC: MTLAB 08:18
PROVIDERS: PCP Internal Medicine; Visit Provider Internal Medicine Nephrology
DX: N18.4 Chronic kidney disease, stage 4 (severe) (principal); E55.9 Vitamin D deficiency, unspecified; D64.9 Anemia, unspecified
CPT/HCPCS: 36415; 80069; 82306; 82570; 83970; 84156; 85027

== ENCOUNTER → 2022-06-03 | Outpatient (CLI) | payer MEDICARE, OTHER, SELFPAY ==
--- NOTE | 2022-06-03 13:11 | CT_ITS ---
STUDY: CT CHEST WITH CONTRAST REASON FOR EXAM: Male, 76 years old. Follow mass RADIATION DOSAGE (If Supplied By Facility): CTDIvol = ( 12.84 ) mGy, DLP = ( 440.00 ) mGycm TECHNIQUE: Transaxial imaging was performed following intravenous administration of IV 100mL Isovue-300. Multiplanar coronal and sagittal images were reformatted. Individualized dose optimization techniques were used for this CT. COMPARISON: Comparison is made with prior study dated 01/02/2022. FINDINGS: CHEST Emphysematous changes. There is a 2.1 cm bulla in the anterior medial aspect of the right upper lobe. This is unchanged. Stable calcified granuloma in the posterior aspect of the left upper lobe. Stable linear scarring in the posterior medial aspect of the left lower lobe as well as scarring in the right lower lobe. Stable 7 mm calcified granuloma in the anterior left insular segment left upper lobe. There is no demonstrated pleural abnormality. There are calcifications of the coronary arteries. There are multiple small lymph nodes within the mediastinum, which are normal in size and morphology most compatible with reactive lymph hyperplasia. No mediastinal mass is seen. The previously seen questionable density on prior scan represents ectasia of the vessel. Prior study was done without intravenous contrast administration. Normal hilar regions. Normal unenhanced pulmonary arteries. There is atherosclerotic calcification of the aortic arch with tortuosity and elongation of the aortic arch and descending thoracic aorta. There are multi-level degenerative changes of the thoracic spine. There is no demonstrated abnormality of the visualized upper abdomen. CT/Chest WITH Contrast IMPRESSION: Emphysema. Calcified granulomas. Electronically Signed: Elvis Green MD at 15:45 EST ,
[2022-06-03 13:28] VITALS: BP 199/84; PULSE 84; RESP 18; TEMP 36.8; O2SAT 99; BMI 20.5
[2022-06-03 14:47] VITALS: BP 196/73; PULSE 77; RESP 14; O2SAT 95
== END | disposition home or self-care (01) ==
PROVIDERS: PCP Internal Medicine; Referring Provider Nurse Practitioner Acute Care; Visit Provider Nurse Practitioner Acute Care
DX: J98.59 Other diseases of mediastinum, not elsewhere classified (principal)
CPT/HCPCS: 71260; J7040; Q9967

== ENCOUNTER → 2022-07-16 | Outpatient (CLI) | payer MEDICARE, OTHER, SELFPAY ==
--- NOTE | 2022-07-16 10:01 | BD_ITS ---
STUDY: DUAL ENERGY X-RAY ABSORPTIOMETRY / DXA REASON FOR EXAM: Male, 76 years old. Osteopenia TECHNIQUE: Bone Mineral Density (BMD) measurements of lumbar spine and bilateral hips were obtained. COMPARISON: Comparison is made with prior study dated September 27, 2015. FINDINGS: Lumbar Spine (L1-L4): g/cm2 (1.005) / T-score (-0.4) / Z-score (0.7) Findings are suggestive of normal bone density with a low fracture risk. Left Femur Total: g/cm2 (0.808) / T-score (-1.5) / Z-score (-0.5) Left Femoral Neck: g/cm2 (0.667) / T-score (-1.9) / Z-score (-0.5) Right Femur Total: g/cm2 (0.807) / T-score (-1.5) / Z-score (-0.5) Right Femoral Neck: g/cm2 (0.734) / T-score (-1.4) / Z-score (0.0) The T-Scores on the most recent prior examination were: Lumbar Spine (L1-L4): There has been no change of bone density since the previous examination. Left Femur Total: which represents an improvement of 6.2%. Right Femur Total: which represents an improvement of 6.9%. BD/Dexa Bone Density Study IMPRESSION: The patient is considered osteopenic as outlined below according to World Rajesh Organization (WHO) criteria with a moderate fracture risk. There has been improvement of bone density since the previous examination. Reference Information: The T-score is the number of standard deviations above or below the standard which is normal for young adults at their peak bone mineral density. The World Health Organization (WHO) interprets the T-scores as follows: Above -1 Normal bone density Between -1 and -2.5 Osteopenia Equal to / or below -2.5 Osteoporosis As a practical clinical guideline, osteopenia may be graded as follows: Mild -1 through -1.5 Moderate -1.6 through -2.0 Severe -2.1 through -2.4 The Z-score is the number of standard deviations above or below age-matched controls. A Z-score of less than -1.5 would be considered abnormal. References: 1. NIH Osteoporosis and Related Bone Diseases www osteo.org 2. International Society for Clinical Densitometry www iscd.org 3. National Osteoporosis Foundation www nof.org Electronically Signed: Elvis Green MD at 9:50 EDT ,
== END | disposition home or self-care (01) ==
LOC: OPBD 09:43
PROVIDERS: PCP Internal Medicine; Referring Provider Internal Medicine; Visit Provider Internal Medicine
DX: M81.0 Age-related osteoporosis without current pathological fracture (principal)
CPT/HCPCS: 77080

== ENCOUNTER → 2022-07-23 | Outpatient (CLI) | payer MEDICARE, OTHER, SELFPAY ==
[2022-07-23 15:24] LABS: Hematocrit 27.9 % (40-54); Mean Corp Hgb Conc 32.3 g/dL (32-36); Mean Platelet Vol. 10.8 fl (6.2-12.0); Platelet Count 368 K/mm3 (150-450); RBC Distribution Width CV 12.8 % (11.6-14.6); RBC Distribution Width SD 43.6 fl (35.1-43.9); White Blood Count 5.8 K/mm3 (4.4-11.0)
[2022-07-23 16:12] LABS: Protein, Urine (Random) 158.5 mg/dL (<11.9); Protein:Creat Ratio 4746 mg/g CRE (0-200)
[2022-07-23 16:49] LABS: Vitamin D,25 Hydroxy 53.9 ng/mL
[2022-07-23 16:57] LABS: Albumin, Serum 3.1 g/dL (3.2-5.0); BUN 63 mg/dL (7-18); BUN/Creat Ratio 18.7 RATIO (10-20); Calcium,Total 8.7 mg/dL (8.5-10.1); Chloride 97 mmol/L (98-107); Creatinine, Serum 3.37 mg/dL (0.70-1.30); EST Glomerular Filtration Rate 19 mL/min (>60); Est Glom Filt Rate - Afr Amer 23 mL/min (>60); Glucose 465 mg/dL (74-106); Phosphorus 3.6 mg/dL (2.5-4.9); Potassium 3.9 mmol/L (3.5-5.1); Sodium Level 131 mmol/L (136-145)
[2022-07-24 07:43] LABS: PTHIN 49.1 pg/mL (18.4-80.1)
== END | disposition home or self-care (01) ==
LOC: MTLAB 13:20
PROVIDERS: PCP Internal Medicine; Referring Provider Internal Medicine Nephrology; Visit Provider Internal Medicine Nephrology
DX: E55.9 Vitamin D deficiency, unspecified (principal); N18.4 Chronic kidney disease, stage 4 (severe); D64.9 Anemia, unspecified
CPT/HCPCS: 36415; 80069; 82306; 82570; 83970; 84156; 85027

== ENCOUNTER → 2022-07-28 | Outpatient (CLI) | payer MEDICARE, OTHER, SELFPAY ==
[2022-07-28 16:13] LABS: PSA,Total- Diagnostic 4.95 ng/mL (0.0-4.0)
== END | disposition home or self-care (01) ==
PROVIDERS: PCP Internal Medicine; Referring Provider Registered Nurse; Visit Provider Registered Nurse
DX: C61 Malignant neoplasm of prostate (principal)
CPT/HCPCS: 36415; 84153

== ENCOUNTER → 2022-10-27 | Outpatient (CLI) | payer MEDICARE, OTHER, SELFPAY ==
[2022-10-27 12:54] LABS: Anion Gap 7 (5-15); BUN 64 mg/dL (7-18); BUN/Creat Ratio 19.7 RATIO (10-20); Calcium,Total 9.6 mg/dL (8.5-10.1); Chloride 105 mmol/L (98-107); Creatinine, Serum 3.25 mg/dL (0.70-1.30); EST Glomerular Filtration Rate 20 mL/min (>60); Est Glom Filt Rate - Afr Amer 24 mL/min (>60); Glucose 214 mg/dL (74-106); Potassium 4.6 mmol/L (3.5-5.1); Sodium Level 138 mmol/L (136-145)
[2022-10-27 13:05] LABS: AST(SGOT) 39 U/L (15-37); Alanine Aminotransfer ALT/SGPT 47 U/L (16-61); Albumin, Serum 3.1 g/dL (3.2-5.0); Alkaline Phosphatase 121 U/L (45-117); Bilirubin, Direct 0.09 mg/dL (0.00-0.30); Cholesterol 154 mg/dL (200); Globulin 3.1 g/dL (2.2-4.2); High Density Lipoprotein 56 mg/dL; Protein, Total 6.2 g/dL (6.4-8.2); Triglycerides 129 mg/dL; Very Low Density Lipoprotein 26 mg/dL (5-40)
== END | disposition home or self-care (01) ==
LOC: BIMLAB 08:53
PROVIDERS: Nurse Practitioner Family; PCP Internal Medicine; Referring Provider Internal Medicine; Visit Provider Internal Medicine
DX: I10 Essential (primary) hypertension (principal); E78.00 Pure hypercholesterolemia, unspecified
CPT/HCPCS: 36415; 80048; 80061; 80076

== ENCOUNTER → 2022-11-13 | Outpatient (CLI) | payer MEDICARE, OTHER, SELFPAY ==
[2022-11-13 15:13] LABS: Hematocrit 25.8 % (40-54); Hemoglobin 8.7 g/dL (13.0-16.5); Mean Corp Hgb Conc 33.7 g/dL (32-36); Mean Corpuscular Hgb 30.4 pg (27.0-32.0); Mean Corpuscular Volume 90.2 fL (80-94); Mean Platelet Vol. 10.4 fl (6.2-12.0); Platelet Count 330 K/mm3 (150-450); RBC Distribution Width SD 42.9 fl (35.1-43.9); Red Blood Count 2.86 M/mm3 (4.6-6.2)
[2022-11-13 15:48] LABS: PTHIN 56.7 pg/mL (18.4-80.1)
[2022-11-13 16:24] LABS: Protein, Urine (Random) 201.5 mg/dL (<11.9); Protein:Creat Ratio 4172 mg/g CRE (0-200)
[2022-11-13 16:28] LABS: BUN 63 mg/dL (7-18); BUN/Creat Ratio 20.7 RATIO (10-20); Calcium,Total 8.6 mg/dL (8.5-10.1); Chloride 101 mmol/L (98-107); Creatinine, Serum 3.05 mg/dL (0.70-1.30); EST Glomerular Filtration Rate 21 mL/min (>60); Est Glom Filt Rate - Afr Amer 26 mL/min (>60); Glucose 222 mg/dL (74-106); Phosphorus 5.1 mg/dL (2.5-4.9); Potassium 4.4 mmol/L (3.5-5.1); Sodium Level 136 mmol/L (136-145)
== END | disposition home or self-care (01) ==
LOC: MTLAB 13:28
PROVIDERS: PCP Internal Medicine; Visit Provider Internal Medicine Nephrology
DX: N18.4 Chronic kidney disease, stage 4 (severe) (principal); E55.9 Vitamin D deficiency, unspecified; R80.9 Proteinuria, unspecified; D64.9 Anemia, unspecified
CPT/HCPCS: 36415; 80069; 82043; 82306; 82570; 83970; 84156; 85027

== ENCOUNTER → 2022-11-24 | Outpatient (CLI) | payer MEDICARE, OTHER, SELFPAY ==
--- NOTE | 2022-11-23 12:00 | MRI_ITS ---
STUDY: MRI CERVICAL SPINE REASON FOR EXAM: Male, 77 years old. patient states, neck pain without radiculopathy TECHNIQUE: Standardized fat and water weighted pulse sequences were obtained in the sagittal and axial without IV contrast material. COMPARISON: 12.31.16 FINDINGS: Normal foramen magnum and brainstem-cervical cord junction. Normal craniovertebral junction. Normal anterior atlantoaxial articulation. Normal odontoid process. Normal cervical lordosis. Normal vertebral bodies and posterior osseous elements. C2-3: Loss of intervertebral disc height. There is endplate spondylosis of the vertebral body. Normal central canal and intervertebral neuroforamina. There is bilateral facet arthropathy. C3-4: Fusion. C4-5: Loss of intervertebral disc height. There is endplate spondylosis of the vertebral body. Normal central canal and intervertebral neuroforamina. There is bilateral facet arthropathy. Grade 1 anterolisthesis of C4 on C5. The distance measures 1.9 mm. Discogenic endplate changes. C5-6: Loss of intervertebral disc height. There is endplate spondylosis of the vertebral body. Normal central canal and intervertebral neuroforamina. There is bilateral facet arthropathy. C6-7: Loss of intervertebral disc height. There is endplate spondylosis of the vertebral body. Normal central canal and intervertebral neuroforamina. There is bilateral facet arthropathy. Discogenic endplate changes. C7-T1: Normal endplates. Normal disc height and morphology. Normal central canal and intervertebral neuroforamina. Normal visualized soft tissue structures. MRI/Spine Cervical (Routine) IMPRESSION: (NOT LISTED IN ORDER OF SIGNIFICANCE) Multilevel degenerative changes, as described above. Findings are all stable with exception that the grade 1 anterolisthesis of C4 on C5 has increased. Electronically Signed: Reji Gaviria MD at 15:45 EDT Reading Location ID and State: [facility] / [place] , Service support ,
== END | disposition home or self-care (01) ==
PROVIDERS: PCP Internal Medicine; Referring Provider Anesthesiology Pain Medicine; Visit Provider Anesthesiology Pain Medicine
DX: M54.12 Radiculopathy, cervical region (principal)
CPT/HCPCS: 72141

== ENCOUNTER 2022-11-25 08:00 | Outpatient (RCR) | payer MEDICARE, OTHER, SELFPAY ==
--- NOTE | 2022-11-03 08:24 | HP.PTEVAL ---
Patient's Visit Information Visit Information Visit Information: DEX VALLE is a 76 year old M referred to Physical Therapy by Dr. Cesar Keenan MD with a diagnosis of Cervicalgia. Date of Evaluation: 11/03/22 Physical Therapist: Bere Zurita DPT Visit Plan Frequency: 2x /Week Duration: 4 Weeks Plan: Focus on Scapular Strength/Stabilization, Manual STM and gentle distraction, US as modality of choice HEP Given IE: Postural education, Scapular Retraction, Upper Trap Stretch, Levator Stretch, TA Contraction Seated Subjective Subjective: Patient reports that he has a lot of pain in his neck on the left side that makes it hard to turn while driving. Went to [place], they did x-rays which showed OA in her cervical spine. He has had pain for about 6 months- insidious onset. He is a diabetic and wears a watch for about 15-20 years and he has lost some weight and also a lot of strength. The pain is always there- he takes Gabapentin and Tylenol which helps a little bit. Worst: 8-10 Agg: turning to the left Eases: long hot shower in the AM and medication Best: 4-10. Describes the pain as turning as sharp- if he is sitting with his head back its not as bad. Pain is located on the left side in the paraspinals- No radiating pain. No N/T in the fingers. He reports no blurred vision, dizziness of OSORIO. He is not very active- He mostly sitting in his recliner. Sleep is not disturbed- side sleeper. Does not wake up in the AM with anymore pain than he goes to bed with. He has not had an MVA's or Trauma to his spine. No injections- but has thought about going to the pain doctor but he has not gone yet. No records of his x-rays on file here. He is fully Indep with ADL's and driving. PMHx/Meds: 10/27/22 visit with PCP in chart- no changes. Objective Objective: Observation: pt sits with tilt to the right and slight rotation to the left Posture: poor in both sitting and standing- can correct with verbal cues but does not maintain ROM: Side bending: Left: 20 degrees with pain Right: 30 degrees Flexion: 40 degrees Extn: 20 degrees Rotation: Left: 30 Right: 30. Shoulder: WFL in all planes Strength: Scap: poor, Shoulder: 4+/5, Elbow: 5/5, Washing Tub Operator: Left: 30 Right: 40 (Right hand dominate), Cervical: 4/5 isometric Palpation: tender along paraspinals from occiput to C7 Flex: UT: severe, Levator: Severe Special Test: Distraction: decreased s/s- Compression: increased pain- did not respond to increased ROM with contract/relax Balance/Special Test Scores Oswestry Neck Score: 17 Goals Goal 1:: Patient will be I with HEP and progression Goal Time Frame: 4-6 Weeks Goal 2:: Patient will maintain proper posture t/o tx session to demo increased scap s/s Goal Time Frame: 4-6 Weeks Goal 3:: Patient will turn his head without pain Goal Time Frame: 4-6 Weeks Goal 4:: Patient will report 80% improvement Goal Time Frame: 4-6 Weeks Rehabilitation Potential Physical Therapy Diagnosis: Patient presents with hypomobility- he has decreased cervical ROM and scapular strength/stabilization and muscular endurance leading to poor posture and increased pain with ADL's. Rehabilitation Potential: Good Anticipated Interventions Patient/Client Instruction: Educate patient on: Benefits of Fitness Program Therapeutic Exercise to Include: Strength training, Endurance training, Coordination, Agility training, Body mechanics, Postural training, Flexibilty training, Neuromotor development, Passive ROM, Active ROM, Dynamic Lumbar Stabilization and Scapular Strength/Stabilization For the Purpose of:: To improve muscle performance and motor function TENS: Yes Cryotherapy (ice pack, ice massage): Yes Thermo therapy (hot pack): Yes Ultrasound (thermal/non thermal): Yes Text: Thank you for the opportunity to evaluate your patient. For Medicare and Medicare HMO plans, please review the plan of care and approve it. It will need to be FAXED BACK to us at [phone] for Medicare purposes. For Medicare only, by signing this I certify the plan of care. Please let me know if there are questions or concerns regarding this plan of care. Physician Signature: Date:
--- NOTE | 2022-12-25 13:41 | HP.PTDCSUM ---
Discharge Summary D/C summary: It has been my pleasure to treat DEX VALLE referred by Dr. Cesar Keenan MD, with the diagnosis of Cervicalgia for a total of 7 visit(s). Discharge Date: Please see the following information for a summary of their discharge status. Subjective Subjective: Pt states he cancelled the rest of his appts with PT - wants to d/c for now and seek pain management. States if he wants or needs to come back, he'll get a new script. Conts to state the most beneficial part of therapy is the MA. Pain Neck: Pain Intensity (Out of 10): 8 Overall Improvement % Improvement: 30 Objective Objective/Function: Focus last session today on pain relief and blood flow. Conts to states how great the manual feels, but also conts to rate the post session pain only minimally less than on arrival. Goals Goal 1:: Patient will be I with HEP and progression Goal 2:: Patient will maintain proper posture t/o tx session to demo increased scap s/s Goal 3:: Patient will turn his head without pain Goal 4:: Patient will report 80% improvement Plan Plan: Pt wishes to d/c for now to pain management. D/C Information d/c sentence: If there are questions or concerns regarding this patient's physical therapy, please feel free to call me at [phone]. Thank you for the referral of this patient. Sincerely, Bere Zurita, DPT Balance/Gait/Functional tests Balance/Special Test Scores Oswestry Neck Score: 17 Improvement % Improvement: 30
== END 2022-11-25 19:00 | disposition home or self-care (01) ==
LOC: PT 08:00
PROVIDERS: PCP Internal Medicine; Referring Provider Internal Medicine; Visit Provider Internal Medicine
DX: M54.2 Cervicalgia (principal); M54.9 Dorsalgia, unspecified; G89.29 Other chronic pain
CPT/HCPCS: 97035; 97110; 97140; 97162

== ENCOUNTER 2022-11-28 21:27 | Inpatient (IN) | payer MEDICARE, OTHER, SELFPAY ==
[2022-11-28] VITALS (7 sets, daily range): BP systolic 172–199; BP diastolic 79–86; PULSE 70–105; RESP 17–26; TEMP 36.8–36.9; O2SAT 83–92; BMI 22.0
--- NOTE | 2022-11-28 22:14 | EKG12_ITS ---
Test Reason : Dysrhythmia Blood Pressure : / mmHG Vent. Rate : 104 BPM Atrial Rate : 104 BPM P-R Int : 154 ms QRS Dur : 098 ms QT Int : 350 ms P-R-T Axes : -18 058 062 degrees QTc Int : 460 ms Sinus tachycardia Minimal voltage criteria for LVH, may be normal variant ( Sokolow-Rahman ) Nonspecific ST abnormality Abnormal ECG Confirmed by JOSÉ ANTONIO COLINDRES ([id number]), book editor WHIT CARLOS ([id number]) on 12/02/2022 9:06:55 AM Referred By: LAN Confirmed By:JOSÉ ANTONIO COLINDRES
[2022-11-28] MEDS: Albuterol 2.5 MG/3 ML VIAL.NEB. INHALATION (22:18)
[2022-11-28] MEDS: Ipratropium/Albuterol Sulfate 3 ML AMPUL.NEB INHALATION (22:18)
--- NOTE | 2022-11-28 22:19 | ED.VIS.DYS ---
HPI History of Present Illness Chief Complaint: Shortness of Breath Narrative Narrative: 77-year-old male presenting with shortness of breath. He states it started this afternoon while he was at a car show. Patient states he has history of COPD and is a current every day smoker and states he became short of breath while he was at the car show. He does not have any chest pain. He states he is only been able to walk short distances. He had a stop 4 times at the car so to catch his breath. Patient states he developed a headache. He states it was a nonacute onset headache. He took Tylenol prior to arrival and his headache is not completely gone. Denies dizziness, lightheadedness, visual complaints. Patient does not have any chest pain. No fevers or chills. 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 Dietary restriction Dyspnea on exertion Essential hypertension Family history of hyperlipidemia Family history of hypertension Former smoker Headache Hearing loss, left Hearing loss, right Hearing problem High cholesterol History of echocardiogram History of pain when walking History of stress test Hyperlipidemia Hypertension Hypertension 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 Kidney stones [place] use of drug Mixed hyperlipidemia Nicotine abuse Olecranon bursitis, left elbow Olecranon bursitis, right elbow Osteoarthritis Osteopenia Prostate disease Shortness of breath on exertion Skin mole Sleep apnea Smoker Swelling of right elbow Unintentional weight loss of more than 10 pounds Vision problem Wears dentures Wears glasses Wears hearing aid Wears hearing aid in both ears Home Medications aspirin 81 mg tablet,delayed release (Adult Low Dose Aspirin) 81 mg PO QDAY 06/15/17 [History Last Taken 05/27/21] finasteride 5 mg tablet (Proscar) 5 mg PO QDAY 06/16/17 [History Last Taken Unknown] lisinopril 40 mg tablet 40 mg PO QDAY 06/16/17 [History Last Taken 05/29/21] multivitamin 1 tab PO QDAY 06/16/17 [History Last Taken Unknown] insulin lispro 200 unit/mL (3 mL) subcutaneous pen (Humalog Ilan U-200 Insulin) See Rx Instructions subcut TID 10/24/21 [History Last Taken Unknown] ferrous sulfate 325 mg (65 mg iron) tablet 325 mg PO DAILY #90 tabs 12/30/21 [Rx Last Taken Unknown] flash glucose scanning reader ([employer]Style Tani 2 [place]) #2 ea 03/28/22 [Rx Last Taken Unknown] flash glucose sensor (FreeStyle Tani 2 Sensor kit) #2 ea 03/28/22 [Rx Last Taken Unknown] rosuvastatin 20 mg tablet 20 mg PO DAILY 04/24/22 [History Last Taken Unknown] amlodipine 10 mg tablet 10 mg PO DAILY 04/30/22 [History Last Taken Unknown] docusate sodium 100 mg capsule (Colace) 200 mg PO BID 04/30/22 [History Last Taken Unknown] magnesium oxide 400 mg PO DAILY 04/30/22 [History Last Taken Unknown] vitamins A,C,F-xlnz-kaffvd 4,296 mcg-226 mg-90 mg capsule (Vision Formula (vits M-N-W-zinc-copper)) 1 cap PO ONCE 04/30/22 [History Last Taken Unknown] bisacodyl 5 mg tablet,delayed release 5 mg PO ONCE 05/05/22 [History Last Taken Unknown] calcium citrate 200 mg (950 mg) tablet 200 mg PO DAILY 05/05/22 [History Last Taken Unknown] cholecalciferol (vitamin D3) 125 mcg (5,000 unit) capsule 125 mcg PO DAILY 05/05/22 [History Last Taken Unknown] cinnamon bark 500 mg capsule (Cinnamon) 1,000 mg PO DAILY 05/05/22 [History Last Taken Unknown] furosemide 40 mg tablet 40 mg PO DAILY 05/05/22 [History Last Taken Unknown] folic acid 400 mcg tablet 500 mcg PO BID 06/27/22 [History Last Taken Unknown] gabapentin 300 mg capsule 300 mg PO TID 06/27/22 [History Last Taken Unknown] insulin glargine 100 unit/mL (3 mL) subcutaneous pen (Lantus Solostar U-100 Insulin) 10 unit subcut DAILY 10/27/22 [History Last Taken Unknown] Allergy/AdvReac Type Severity Reaction Status Date / Time levofloxacin [From Levaquin] Allergy Hives Verified 11/28/22 21:34 Family History Father Diabetes Hypertension Family history of hyperlipidemia Asthma Kidney disease Mother Diabetes Brother Cancer Throat cancer Brother CAD (coronary artery disease) Myocardial infarction, Onset Age: 52 Sister Family history of hyperlipidemia Hypertension Diabetes Unknown Alcoholism Arthritis Depression Diabetes Hypertension Hyperlipidemia Osteoporosis Respiratory disease Pancreatic cancer Other Family history of hypertension Surgical History Fracture of left patella Fracture of left upper extremity History of bilateral inguinal hernia repair (~2007) History of colonoscopy (~2013) History of hemorrhoidectomy (~2000) History of hernia repair (~1991) stent replacement for right sided kidney stome Wrist fracture, bilateral Social History Smoking Status: Current every day smoker tobacco type: cigarettes Tobacco: How many years used: 50 alcohol intake: current alcohol intake frequency: a few times a month substance use type: does not use caffeine: Yes Type: coffee Number of servings: 2 what type of physical activity do you participate in: none seatbelt use: sometimes do you feel safe at home: Yes EXAM Physical Exam Const Vital Signs: 11/28/22 21:30 11/28/22 21:32 11/28/22 21:33 Temperature 98.2 F 98.2 F Temperature Source Temporal Temporal Pulse Rate 105 H 104 H Respiratory Rate 24 H 20 H Respiratory Effort Respiratory Depth Respiratory Pattern Blood Pressure 199/79 H 199/79 H Blood Pressure Mean 119 119 Pulse Ox 83 85 85 Oxygen Delivery Method Nasal Cannula Nasal Cannula Nasal Cannula Oxygen Flow Rate (L/min) 4 6 6 11/28/22 21:34 11/28/22 22:18 11/28/22 22:30 Temperature Temperature Source Pulse Rate 105 H Respiratory Rate 26 H Respiratory Effort Short of Breath Respiratory Depth Shallow Respiratory Pattern Tachypnea Tachypnea Blood Pressure Blood Pressure Mean Pulse Ox Oxygen Delivery Method Nasal Cannula High Flow Oxygen Flow Rate (L/min) 6 8 11/28/22 23:16 11/28/22 23:39 Temperature 98.3 F 98.4 F Temperature Source Temporal Oral Pulse Rate 70 104 H Respiratory Rate 24 H 17 Respiratory Effort Respiratory Depth Respiratory Pattern Blood Pressure 197/80 H 172/86 H Blood Pressure Mean 119 114 Pulse Ox 92 90 Oxygen Delivery Method High Flow Nasal Cannula Oxygen Flow Rate (L/min) 8 10 Positive well nourished General Appearance ED: NAD HEENT Reports moist mucous membranes Eyes PERRL and EOMs intact bilaterally General Eye ED: Negative for pale conjunctiva Neck no lymphadenopathy, supple and no meningeal signs Resp normal respiratory effort and clear to auscultation bilaterally Auscultation: Negative for rales, rhonchi or wheezes Cardio regular rate and regular rhythm Neuro oriented x3 and CN's II-XII intact bilaterally Sensorium / Orientation: alert Motor Exam: strength 5/5 throughout Psych mental status grossly normal Skin no wounds MDM MDM MDM Narrative Medical decision making narrative: 77-year-old male with history of COPD, diabetes, CKD stage IV presenting with shortness of breath and hypoxia. He states that started today when he was at a car show. He has stopped periodically to catch his breath. He later developed a headache. Is noticed that his blood pressure is extremely high on arrival. Differential includes intracranial hemorrhage, migraine, ACS, CHF, pneumonia, dehydration, anemia, electrolyte abnormalities, hyperglycemia. CBC was obtained to assess white blood cell count, hemoglobin, platelets. BMP to assess renal function and electrolytes. High-sensitivity troponin and EKG to assess for ischemia. Chest x-ray to rule out pneumonia versus CHF. BNP to assess for CHF. CT brain to assess for intracranial abnormalities. CBC does not show leukocytosis and his white blood cell count is 8.8. Hemoglobin 9.8. Platelets 360. Glucose is elevated at 1000 and without an anion gap. Sodium is low at 124 which is likely due to the glucose. Potassium elevated at 5.3 without EKG changes and his EKG shows a sinus tachycardia with a ventricular rate of 104 bpm without sign of ischemic change or ectopy. Chest x-ray my interpretation shows right middle and lower lobe infiltrates. The radiologist interpretation agrees. Creatinine is elevated at 4.20. Troponin elevated at 301 however the patient tells me has not had any chest pain his baseline is around 3. Patient given 2 L of IV fluids to help bring down his glucose and improve his renal function. Patient was treated with Reglan and Benadryl for his headache as it is not resolving. CT brain ordered and negative for acute intracranial process. BNP elevated at 798. We will obtain a COVID test at patient's request. Patient was started on Rocephin azithromycin for his pneumonia. Patient discussed with hospitalist for admission. Impression: 1. Acute kidney injury 2. Hyperglycemia 3. Elevated troponin 4. Hypoxic respiratory failure 5. Hyperkalemia Lab Data Labs: Laboratory Results - last 24 hr 11/28/22 21:30 WBC 8.8 RBC 3.17 L Hgb 9.8 L Hct 29.7 L MCV 93.7 MCH 30.9 MCHC 33.0 RDW Std Deviation 45.1 H RDW Coeff of Russell 13.1 Plt Count 360 MPV 10.8 Immature Gran % (Auto) 0.600 Neut % (Auto) 86.4 H Lymph % (Auto) 8.8 L Anderson % (Auto) 4.0 Eos % (Auto) 0.0 Baso % (Auto) 0.2 Absolute Neuts (auto) 7.6 Absolute Lymphs (auto) 0.77 L Nucleated RBC % 0 Sodium 124 L Potassium 5.3 H Chloride 89 L Carbon Dioxide 24.0 Anion Gap 11 BUN 66 H Creatinine 4.20 H Estim Creat Clear Calc 13.27 Est GFR (MDRD) Af Amer 18 L Est GFR (MDRD) Non-Af 15 L BUN/Creatinine Ratio 15.7 Glucose 1004 H* Calcium 8.4 L Troponin I High Sens 301 H* B-Natriuretic Peptide 798.8 H Radiography Diagnostic Testing: Clinical Impression(s) from Imaging Studies Brain CT 11/28/22 22:30 IMPRESSION: No acute intracranial pathology. Chronic left maxillary sinus disease with osseous changes sinus hightower. Electronically Signed: César Haines DO at 22:47 EDT , Chest X-Ray 11/28/22 22:32 IMPRESSION: 1. Large right lower lobe infiltrate and patchy opacities right mid lung and left lower lobe suspicious for multifocal pneumonia. Electronically Signed: César Haines DO at 22:50 EDT , Discharge Plan Triage Chief Complaint: Shortness of Breath ED Provider: Jian Tijerina Dx/Rx/DC Orders Prescriptions: No Action aspirin [Adult Low Dose Aspirin] 81 mg tablet,delayed release (DR/EC) 81 mg PO QDAY finasteride [Proscar] 5 mg tablet 5 mg PO QDAY lisinopril 40 mg tablet 40 mg PO QDAY multivitamin tablet 1 tab PO QDAY gabapentin 300 mg capsule 300 mg PO TID Humalog KwikPen Insulin 200 unit/mL (3 mL) insulin pen See Rx Instructions SC TID Rx Instructions: sliding scale subcutaneously three times a day; sliding scale docusate sodium [Colace] 100 mg capsule 200 mg PO BID Vision Formula (L-G-A-Zn-geovani) 14320-226-200 eiot-md-bxrq capsule 1 cap PO ONCE folic acid 400 mcg tablet 500 mcg PO BID rosuvastatin 20 mg tablet 20 mg PO DAILY (DME) FreeStyle Tani 2 Sensor Kit See Rx Instructions .Route Qty: 2 3RF Rx Instructions: As directed (DME) FreeStyle Tani [place] Misc See Rx Instructions .Route Qty: 2 3RF Rx Instructions: As directed Lantus Solostar U-100 Insulin 100 unit/mL (3 mL) insulin pen 10 unit SC DAILY amlodipine 10 mg tablet 10 mg PO DAILY magnesium oxide 400 mg magnesium capsule 400 mg PO DAILY calcium citrate 200 mg (950 mg) tablet 200 mg PO DAILY furosemide 40 mg tablet 40 mg PO DAILY bisacodyl 5 mg tablet,delayed release (DR/EC) 5 mg PO ONCE cholecalciferol (vitamin D3) 125 mcg (5,000 unit) capsule 125 mcg PO DAILY cinnamon bark [Cinnamon] 500 mg capsule 1,000 mg PO DAILY ferrous sulfate 325 mg (65 mg iron) tablet 325 mg PO DAILY Qty: 90 1RF Primary Care Provider: Cesar Keenan Referrals: Cesar Keenan MD [Primary Care Provider] -
--- NOTE | 2022-11-28 22:20 | CPS ---
x1 Albuterol given to pt. in ER as well
[2022-11-28 22:29] LABS: Absolute Lymphocyte Count 0.77 X10^3/uL (0.83-4.51); Absolute Neutrophil Count 7.6 X10^3/uL (2.0-7.7); Basophil# 0.02 X10^3/uL; Basophil% 0.2 % (0-1); Hematocrit 29.7 % (40-54); Hemoglobin 9.8 g/dL (13.0-16.5); Lymphocyte # 0.77 X10^3/ul (0.83-4.51); Lymphocyte % 8.8 % (19-41); Mean Corpuscular Hgb 30.9 pg (27.0-32.0); Mean Corpuscular Volume 93.7 fL (80-94); Mean Platelet Vol. 10.8 fl (6.2-12.0); Monocyte# 0.35 X10^3/uL; NRBC Flagged by Analyzer 0 % (0-5); Neutrophil # 7.56 X10^3/uL (2.7-7.7); Neutrophil % 86.4 % (47-70); Platelet Count 360 K/mm3 (150-450); RBC Distribution Width CV 13.1 % (11.6-14.6); RBC Distribution Width SD 45.1 fl (35.1-43.9); Red Blood Count 3.17 M/mm3 (4.6-6.2); White Blood Count 8.8 K/mm3 (4.4-11.0)
--- NOTE | 2022-11-28 22:30 | CT_ITS ---
INDICATION: Hypertensive headache EXAMINATION: CT BRAIN - CT Head or Brain W/O Contrast Injection TECHNIQUE: Multiple axial images were obtained of the head without intravenous contrast. A radiation dose optimization technique was used for this scan. IV Contrast dosage and agent: None. COMPARISON: May 10, 2015 CT head FINDINGS: BRAIN PARENCHYMA: No intra- or extra-axial hemorrhage. No intracranial mass or mass effect. [place]/white matter differentiation is maintained and there is no blurring of the basal ganglia. There is no hyperdense vessel. Posterior fossa structures are unremarkable. 2 mm calcification periphery right posterior frontal sulcus, new compared to prior exam. CSF SPACES: Appropriate for age. No hydrocephalus. Basal cisterns are patent. CALVARIUM, SKULL BASE, PARANASAL SINUSES AND MASTOID AIR CELLS: Intact calvarium and skull base. No fracture or osseous lesion. Complete opacification left maxillary sinus with central increased density. There is chronic osseous changes left maxillary sinus hightower; thickening and sclerosis. Mastoid air cells and middle ears are clear. ORBITS: Both globes, extraocular muscles, optic nerves and retrobulbar fat appear unremarkable. ASPECTS Score for Acute Strokes: 10 CT/Brain/Head without Contrast IMPRESSION: No acute intracranial pathology. Chronic left maxillary sinus disease with osseous changes sinus hightower. Electronically Signed: César Haines DO at 22:47 EDT ,
--- NOTE | 2022-11-28 22:32 | RAD_ITS ---
INDICATION: chest pain EXAMINATION/TECHNIQUE: X-RAY - XR Chest 1 View COMPARISON: September 24, 2021 chest x-ray FINDINGS: LINES/DEVICES: None. LUNGS: Symmetric normal lung volumes. Patchy opacities primarily in the right lower lobe but also in the right mid lung and subtle increased attenuation left lower lobe suspicious for multifocal pneumonia. No pleural effusion. Calcified nodule left upper lobe unchanged. MEDIASTINUM AND CARDIOVASCULAR STRUCTURES: Normal size and contour of the cardiomediastinal silhouette. No evidence of pulmonary vascular congestion. Significant aortic arch intimal calcifications. BONES AND SOFT TISSUES: No fracture or focal osseous lesion. RAD/Chest 1 View (Portable) IMPRESSION: 1. Large right lower lobe infiltrate and patchy opacities right mid lung and left lower lobe suspicious for multifocal pneumonia. Electronically Signed: Céasr Haines DO at 22:50 EDT ,
[2022-11-28 22:48] LABS: BNP,B-Type NATRIURETIC PEPTIDE 798.8 pg/mL (0-100)
[2022-11-28 22:55] LABS: Anion Gap 11 (5-15); BUN 66 mg/dL (7-18); BUN/Creat Ratio 15.7 RATIO (10-20); Calcium,Total 8.4 mg/dL (8.5-10.1); Chloride 89 mmol/L (98-107); EST Glomerular Filtration Rate 15 mL/min (>60); Est Glom Filt Rate - Afr Amer 18 mL/min (>60); Estimated Creatinine Clearance 13.27 ml/min; Glucose 1004 mg/dL (74-106); Potassium 5.3 mmol/L (3.5-5.1); Sodium Level 124 mmol/L (136-145); Troponin-I HS (w/2H Reflex) 301 pg/mL (3.0-78.0)
[2022-11-28] MEDS: Metoclopramide 10 MG/2 ML Vial IV (22:58)
[2022-11-28] MEDS: DiphenhydrAMINE 50 MG/ML Syringe 25 MG IV (22:58)
[2022-11-28] MEDS: 0.9% Normal Saline 1,000 ML 999 ML IV (23:25)
[2022-11-28] MEDS: Ceftriaxone 1 GM/50 ML BAG IV (23:31)
--- NOTE | 2022-11-28 23:40 | PCM.HP.STD ---
[facility] - General General Date of Admission: 11/28/22 Date of Service: 11/29/22 Chief Complaint: Shortness of breath HPI Narrative DEX VALLE, is a 77 M with a significant history of tobacco abuse; prostate cancer; and COPD who presents to the emergency department with shortness of breath. While at a car auction on the same day of presentation patient had difficulty breathing that caused him to stop walking for about 3 times. Associated with symptoms is a greenish productive cough. Also patient reports chills. He denies any fever at home. He reports a fair appetite. Chronically he has been urinating and drinking excessively; however this has not changed. [facility] Medical History Alcohol use Anemia Aortic root dilatation Arthritis Atherosclerotic heart disease of [place] coronary artery without angina pectoris Back pain Back problem Bone fracture Bronchitis Cataracts, bilateral Chronic neck and back pain CKD (chronic kidney disease), stage IV COPD (chronic obstructive pulmonary disease) Diabetic retinopathy associated with type 1 diabetes mellitus Dietary restriction Dyspnea on exertion Essential hypertension Family history of hyperlipidemia Family history of hypertension Former smoker Headache Hearing loss, left Hearing loss, right Hearing problem High cholesterol History of echocardiogram History of pain when walking History of stress test Hyperlipidemia Hypertension Hypertension 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 Kidney stones 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 Mixed hyperlipidemia Nicotine abuse Olecranon bursitis, left elbow Olecranon bursitis, right elbow Osteoarthritis Osteopenia Prostate disease Shortness of breath on exertion Skin mole Sleep apnea Smoker Swelling of right elbow Unintentional weight loss of more than 10 pounds Vision problem Wears dentures Wears glasses Wears hearing aid Wears hearing aid in both ears Home Medications aspirin 81 mg tablet,delayed release (Adult Low Dose Aspirin) 81 mg PO QDAY 06/15/17 [History Last Taken 05/27/21] finasteride 5 mg tablet (Proscar) 5 mg PO QDAY 06/16/17 [History Last Taken Unknown] lisinopril 40 mg tablet 40 mg PO QDAY 06/16/17 [History Last Taken 05/29/21] multivitamin 1 tab PO QDAY 06/16/17 [History Last Taken Unknown] insulin lispro 200 unit/mL (3 mL) subcutaneous pen (Humalog KwikPen U-200 Insulin) See Rx Instructions subcut TID 10/24/21 [History Last Taken Unknown] ferrous sulfate 325 mg (65 mg iron) tablet 325 mg PO DAILY #90 tabs 12/30/21 [Rx Last Taken Unknown] flash glucose scanning reader (FancyBoxStyle Tani 2 Kincaid) #2 ea 03/28/22 [Rx Last Taken Unknown] flash glucose sensor (FreeStyle Tani 2 Sensor kit) #2 ea 03/28/22 [Rx Last Taken Unknown] rosuvastatin 20 mg tablet 20 mg PO DAILY 04/24/22 [History Last Taken Unknown] amlodipine 10 mg tablet 10 mg PO DAILY 04/30/22 [History Last Taken Unknown] docusate sodium 100 mg capsule (Colace) 200 mg PO BID 04/30/22 [History Last Taken Unknown] magnesium oxide 400 mg PO DAILY 04/30/22 [History Last Taken Unknown] vitamins A,C,U-bjsz-sypqzf 4,296 mcg-226 mg-90 mg capsule (Vision Formula (vits C-O-F-zinc-copper)) 1 cap PO ONCE 04/30/22 [History Last Taken Unknown] bisacodyl 5 mg tablet,delayed release 5 mg PO ONCE 05/05/22 [History Last Taken Unknown] calcium citrate 200 mg (950 mg) tablet 200 mg PO DAILY 05/05/22 [History Last Taken Unknown] cholecalciferol (vitamin D3) 125 mcg (5,000 unit) capsule 125 mcg PO DAILY 05/05/22 [History Last Taken Unknown] cinnamon bark 500 mg capsule (Cinnamon) 1,000 mg PO DAILY 05/05/22 [History Last Taken Unknown] furosemide 40 mg tablet 40 mg PO DAILY 05/05/22 [History Last Taken Unknown] folic acid 400 mcg tablet 500 mcg PO BID 06/27/22 [History Last Taken Unknown] gabapentin 300 mg capsule 300 mg PO TID 06/27/22 [History Last Taken Unknown] insulin glargine 100 unit/mL (3 mL) subcutaneous pen (Lantus Solostar U-100 Insulin) 10 unit subcut DAILY 10/27/22 [History Last Taken Unknown] Allergy/AdvReac Type Severity Reaction Status Date / Time levofloxacin [From Levaquin] Allergy Hives Verified 11/28/22 21:34 Family History Father Diabetes Hypertension Family history of hyperlipidemia Asthma Kidney disease Mother Diabetes Brother Cancer Throat cancer Brother CAD (coronary artery disease) Myocardial infarction, Onset Age: 52 Sister Family history of hyperlipidemia Hypertension Diabetes Unknown Alcoholism Arthritis Depression Diabetes Hypertension Hyperlipidemia Osteoporosis Respiratory disease Pancreatic cancer Other Family history of hypertension Surgical History Fracture of left patella Fracture of left upper extremity History of bilateral inguinal hernia repair (~2007) History of colonoscopy (~2013) History of hemorrhoidectomy (~2000) History of hernia repair (~1991) stent replacement for right sided kidney stome Wrist fracture, bilateral Social History Smoking Status: Current every day smoker tobacco type: cigarettes Tobacco: How many years used: 50 alcohol intake: current alcohol intake frequency: a few times a month substance use type: does not use caffeine: Yes Type: coffee Number of servings: 2 what type of physical activity do you participate in: none seatbelt use: sometimes do you feel safe at home: Yes ROS ROS Narrative Pertinent positives and pertinent negatives as noted in HPI. All other systems were reviewed and are negative Vital Signs Vital Signs Vital Signs: 11/28/22 21:30 11/28/22 21:32 11/28/22 21:33 Temperature 98.2 F 98.2 F Temperature Source Temporal Temporal Pulse Rate 105 H 104 H Respiratory Rate 24 H 20 H Respiratory Effort Respiratory Depth Respiratory Pattern Blood Pressure 199/79 H 199/79 H Blood Pressure Mean 119 119 Pulse Ox 83 85 85 Oxygen Delivery Method Nasal Cannula Nasal Cannula Nasal Cannula Oxygen Flow Rate (L/min) 4 6 6 11/28/22 21:34 11/28/22 22:18 11/28/22 22:30 Temperature Temperature Source Pulse Rate 105 H Respiratory Rate 26 H Respiratory Effort Short of Breath Respiratory Depth Shallow Respiratory Pattern Tachypnea Tachypnea Blood Pressure Blood Pressure Mean Pulse Ox Oxygen Delivery Method Nasal Cannula High Flow Oxygen Flow Rate (L/min) 6 8 11/28/22 23:16 Temperature 98.3 F Temperature Source Temporal Pulse Rate 70 Respiratory Rate 24 H Respiratory Effort Respiratory Depth Respiratory Pattern Blood Pressure 197/80 H Blood Pressure Mean 119 Pulse Ox 92 Oxygen Delivery Method High Flow Oxygen Flow Rate (L/min) 8 Weight Weight: 65.8 kg Body Mass Index (BMI) 22.0 Physical Exam Narrative Physical exam: General: Well-nourished, well-developed. Head: Normocephalic, atraumatic, no tenderness Eyes: Vision is grossly intact. EOMI ENT, no trauma, no rhinorrhea Neck: Nontender, No thyromegaly. CVS: Tachycardia; regular rate and rhythm. Respiratory : Diminished lung sounds., chest wall nontender Abdomen: Soft, nontender, nondistended, normal bowel sounds, no masses : Deferred Back: Nontender, no CVA tenderness, no midline spinal tenderness, deformities, step-offs Extremities: Nontender full range of motion, no trauma Skin: Normal color, no trauma, abrasions Neuro: Alert, oriented, cranial nerves II through XII grossly intact. Psychiatry: Normal mood. Normal affect. Not depressed. Not anxious. Results Lab / Micro Data 11/28/22 21:30 11/29/22 00:25 Labs: Laboratory Results - last 24 hr 11/28/22 21:30: WBC 8.8, RBC 3.17 L, Hgb 9.8 L, Hct 29.7 L, MCV 93.7, MCH 30.9, MCHC 33.0, RDW Std Deviation 45.1 H, RDW Coeff of Russell 13.1, Plt Count 360, MPV 10.8, Immature Gran % (Auto) 0.600, Neut % (Auto) 86.4 H, Lymph % (Auto) 8.8 L, [place] % (Auto) 4.0, Eos % (Auto) 0.0, Baso % (Auto) 0.2, Absolute Neuts (auto) 7.6, Absolute Lymphs (auto) 0.77 L, Nucleated RBC % 0, Sodium 124 L, Potassium 5.3 H, Chloride 89 L, Carbon Dioxide 24.0, Anion Gap 11, BUN 66 H, Creatinine 4.20 H, Estim Creat Clear Calc 13.27, Est GFR (MDRD) Af Amer 18 L, Est GFR (MDRD) Non-Af 15 L, BUN/Creatinine Ratio 15.7, Glucose 1004 H*, Calcium 8.4 L, Troponin I High Sens 301 H*, B-Natriuretic Peptide 798.8 H Radiology Impression Brain CT 11/28/22 22:30 IMPRESSION: No acute intracranial pathology. Chronic left maxillary sinus disease with osseous changes sinus hightower. Electronically Signed: César Haines DO at 22:47 EDT , Chest X-Ray 11/28/22 22:32 IMPRESSION: 1. Large right lower lobe infiltrate and patchy opacities right mid lung and left lower lobe suspicious for multifocal pneumonia. Electronically Signed: César Haines, at 22:50 EDT , Assessment & Plan Assessment/Plan (1) Severe sepsis: (2) Pneumonia: QUALIFIERS: Laterality: right Lung location: unspecified part of lung Pneumonia type: due to unspecified organism Qualified Code(s): J18.9 - Pneumonia, unspecified organism (3) Elevated troponin: (4) Hyperkalemia: PLAN: Plan The patient presented with sepsis due to (pneumonia) with acute sepsis related organ dysfunction as evidenced by (ENMANUEL). SIRS criteria: Respiratory rate more than 20 Heart rate more than 90 organ dysfunction: Acute respiratory failure?required BiPAP at the emergency department Creatinine more than 2 Check lactic acid Radiologist impression of cxr: Large right lower lobe infiltrate and patchy opacities right mid lung and left lower lobe suspicious for multifocal pneumonia. CXR was independently interpreted and I agree with radiologist interpretation. Ceftriaxone azithromycin ordered. Acute hypoxic respiratory failure On high flow oxygen 15 L/min patient oxygen saturation was in the 80s. BiPAP ordered. Check ABG ENMANUEL on CKD stage IV CKD likely secondary to diabetic nephropathy. Creatinine was 4.2 on presentation. Baseline about 3.2. IVF ordered. Hold Lasix and lisinopril. Trend. Elevated troponin [place] Likely secondary demand ischemia. Aspirin continued. EKG sinus tach. Hyperkalemia Likely secondary to elevated blood glucose. IV fluids and insulin ordered. Hypertension Blood pressure is not within goal Home blood pressure medication continued. Lisinopril and Lasix held. As needed hydralazine ordered. Trend blood pressure and adjust blood pressure medications. Diabetes mellitus with hyperglycemia Blood glucose is more than 1000. IV fluids ordered. Accu-Chek every 4 hours of correction scale insulin. Make patient n.p.o. because of hyperglycemia and patient be on BiPAP. DVT Prophylaxis Subcutaneous heparin ordered. Time spent in the patient's overall evaluation,decision-making process, review of diagnostic data, adjustment of management, discussion with other providers, nursing nursing and ancillary staff involved in patient's care documentation, 75 minutes. Sepsis Attestation Sepsis Attestation: Agree w/Sepsis Possible Source of Sepsis: Pulmonary Sepsis Organ Dysfunction Criteria Present: Acute Respiratory Failure (New need for BiPAP/CPAP or MV) and Creatinine > 2.0 mg/dL Charges/Coding Visit Charges Inpatient E&M: 09395 Init Hosp L3
[2022-11-29] VITALS (37 sets, daily range): BP systolic 125–182; BP diastolic 62–109; PULSE 75–114; RESP 12–28; TEMP 36.3–37.3; O2SAT 79–100; BMI 21.1
[2022-11-29] MEDS: 0.9% Normal Saline 1,000 ML 999 ML IV (00:11)
[2022-11-29 00:21] LABS: Reflex Troponin-HS? (from REC) Y
[2022-11-29 00:25] LABS: Bedside Glucose > 500 mg/dL (74-106)
--- NOTE | 2022-11-29 00:54 | ED.RN ---
Pt at 83% on 15L high flow. Pt states he will take a BIPAP machine after refusing initially. Hospitalist notified, as well as respiratory.
[2022-11-29 00:59] LABS: Anion Gap 15 (5-15); BUN 66 mg/dL (7-18); BUN/Creat Ratio 15.9 RATIO (10-20); Calcium,Total 7.5 mg/dL (8.5-10.1); Chloride 93 mmol/L (98-107); Creatinine, Serum 4.14 mg/dL (0.70-1.30); EST Glomerular Filtration Rate 15 mL/min (>60); Est Glom Filt Rate - Afr Amer 18 mL/min (>60); Estimated Creatinine Clearance 13.47 ml/min; Glucose 1065 mg/dL (74-106); Sodium Level 127 mmol/L (136-145)
[2022-11-29 01:05] LABS: Troponin-I HS 299 pg/mL (3.0-78.0)
--- NOTE | 2022-11-29 02:11 | CPS ---
pt moved to u on 15 l/m via hfnc-placed back on bipap once in room
[2022-11-29] MEDS: Insulin Lispro 100 UNIT/ML INSULN.PEN 10 UNIT SC ×2 (03:06→21:13)
[2022-11-29] MEDS: hydrALAZINE 20 MG/ML Vial 5 MG IV ×2 (03:12→17:50)
[2022-11-29] MEDS: 0.9% Normal Saline 1,000 ML 75 ML IV (03:14)
[2022-11-29 03:21] LABS: Bedside Glucose > 500 mg/dL (74-106)
--- NOTE | 2022-11-29 03:26 | NURSING ---
Notified Dr. Schmidt of patient's glucose of 1065 on lab draw, Hi on the glucometer, anion gap of 15 (up from 11). Patient's BNP of 798 and BLE edema. Orders placed in chart by physician to continue NS at 75/hr and to give the [address] Schmidt stated that the NS will help treat DKA, to give the 10 units of humalog, and to check blood glucose levels every 4 hours.
[2022-11-29 03:43] LABS: Allen Test POS; Blood Gas Specimen Type ART; FI02 60; O2 Delivery Device Bi Pap; RR 12; SITE R RADIAL
[2022-11-29 03:44] LABS: EPAP 8; IPAP 14; pH 7.21 (7.35-7.45)
[2022-11-29 03:45] LABS: Base Excess -10 mmol/L (-2 to +2); PO2 59 mmHG (75-100); SO2 84 % (95-99); Total Carbon Dioxide 19 mmol/L; pCO2 45.4 mmHg (35-45)
[2022-11-29 04:14] LABS: Troponin-I HS 3309 pg/mL (3.0-78.0)
[2022-11-29 04:15] LABS: Anion Gap 15 (5-15); BUN 64 mg/dL (7-18); BUN/Creat Ratio 15.7 RATIO (10-20); Calcium,Total 7.5 mg/dL (8.5-10.1); Chloride 95 mmol/L (98-107); Creatinine, Serum 4.07 mg/dL (0.70-1.30); EST Glomerular Filtration Rate 15 mL/min (>60); Est Glom Filt Rate - Afr Amer 18 mL/min (>60); Estimated Creatinine Clearance 13.14 ml/min; Glucose 1108 mg/dL (74-106); Potassium 5.7 mmol/L (3.5-5.1); Sodium Level 127 mmol/L (136-145)
[2022-11-29 04:22] LABS: Absolute Lymphocyte Count 0.42 X10^3/uL (0.83-4.51); Absolute Neutrophil Count 10.1 X10^3/uL (2.0-7.7); Basophil# 0.01 X10^3/uL; Basophil% 0.1 % (0-1); Hematocrit 28.4 % (40-54); Hemoglobin 8.4 g/dL (13.0-16.5); Lymphocyte # 0.42 X10^3/ul (0.83-4.51); Lymphocyte % 3.8 % (19-41); Mean Corp Hgb Conc 29.6 g/dL (32-36); Mean Corpuscular Hgb 29.9 pg (27.0-32.0); Mean Corpuscular Volume 101.1 fL (80-94); Mean Platelet Vol. 10.9 fl (6.2-12.0); Monocyte# 0.59 X10^3/uL; Monocyte% 5.3 % (0-10); NRBC Flagged by Analyzer 0 % (0-5); Neutrophil # 10.06 X10^3/uL (2.7-7.7); Neutrophil % 90.2 % (47-70); POSITIVE DIFFERENTIAL YES; Platelet Count 325 K/mm3 (150-450); RBC Distribution Width CV 13.1 % (11.6-14.6); RBC Distribution Width SD 48.3 fl (35.1-43.9); Red Blood Count 2.81 M/mm3 (4.6-6.2); White Blood Count 11.2 K/mm3 (4.4-11.0)
[2022-11-29 04:23] LABS: Differential Indicated SCAN CRITERIA MET
[2022-11-29 04:51] LABS: Magnesium 2.6 mg/dL (1.6-2.6)
--- NOTE | 2022-11-29 04:54 | CPS ---
pt moved from pcu to icu on bipap-no issues
--- NOTE | 2022-11-29 05:00 | NURSING ---
Notified Ghazala that patient was transfered to ICU Room 4 and that Marilia RN would take over as his nurse.
--- NOTE | 2022-11-29 05:04 | ECHOD_ITS ---
Reason For Study: Elevated Troponins Procedure This was a 2D Doppler, Color Flow transthoracic echocardiogram. The study was technically difficult. Contrast injection was performed. Patient on Bipap. Exam performed portable in ICU/CCU. Left Ventricle Mildly dilated left ventricle. The estimated ejection fraction is 40-45 %. Right Ventricle Normal right ventricle. Normal systolic function. Atria Normal left atrium. Normal right atrium. Mitral Valve There is mild to moderate mitral annular calcification. Trivial eccentric mitral valve insufficiency. Mild (1+) anteriorly directed mitral valve insufficiency. Tricuspid Valve Normal tricuspid valve. Mild tricuspid valve insufficiency. Aortic Valve Moderate diffuse aortic valve calcification. Moderate to severe aortic stenosis. Aortic valve area calculated 0.98 cm?? Aortic maximal pressure gradient 33.1 Aortic mean pressure gradient of 19.8 Moderate to severe aortic valve stenosis/calcific With a low ejection fraction 40-45% Recommendation would be to evaluate further with dobutamine echocardiogram for better evaluation of aortic valve severity. Mild (1+) eccentric aortic valve insufficiency. Pulmonic Valve The pulmonic valve is not well visualized. Great Vessels Normal aortic root. Pericardium/Pleural No pericardial effusion. MMode/2D Measurements & Calculations LVIDd: 4.9 cm IVSd: 1.2 cm LVOT diam: 2.0 cm LVIDs: 4.0 cm LVPWd: 0.98 cm LVOT area: 3.2 cm2 RVDd: 4.0 cm FS: 17.9 % Ao root diam: 4.0 cm LVAd ap4: 32.3 cm2 SV(MOD-sp4): 53.1 ml LA dimension: 4.1 cm LVLd ap4: 7.4 cm EDV(MOD-sp4): 113.7 ml EDV(sp4-el): 119.8 ml LVAs ap4: 21.3 cm2 LVLs ap4: 6.6 cm ESV(MOD-sp4): 60.6 ml ESV(sp4-el): 58.2 ml EF(MOD-sp4): 46.7 % EF(sp4-el): 51.4 % SV(sp4-el): 61.6 ml Time Measurements MV dec time: 0.19 sec Doppler Measurements & Calculations MV E max moo: 104.6 cm/sec Lat Peak E' Moo: 8.1 cm/sec Med Peak E' Moo: 5.6 cm/sec MV A max moo: 103.4 cm/sec E/E' lat: 12.9 E/E' med: 18.5 MV E/A: 1.0 MV V2 max: 123.7 cm/sec MV P1/2t max moo: 113.5 cm/sec Ao V2 max: 287.5 cm/sec MV max P.1 mmHg MV P1/2t: 99.6 msec Ao max P.1 mmHg MV V2 mean: 75.5 cm/sec MV dec slope: 333.7 cm/sec2 Ao V2 mean: 210.0 cm/sec MV mean P.6 mmHg Ao mean P.8 mmHg MV V2 VTI: 35.0 cm MVA(P1/2t): 2.2 cm2 Ao V2 VTI: 72.7 cm MVA(VTI): 2.0 cm2 AV (velocity ratio): 0.31 SANDEEP(I,D): 0.98 cm2 SANDEEP(V,D): 0.95 cm2 LV V1 max: 86.3 cm/sec SV(LVOT): 71.5 ml PA V2 max: 102.7 cm/sec LV V1 max P.0 mmHg LV V1 mean P.7 mmHg LV V1 mean: 61.3 cm/sec LV V1 VTI: 22.6 cm TR max moo: 315.4 cm/sec TR max P.8 mmHg ECHO/Echo Complete Interpretation Summary The estimated ejection fraction is 40-45 %. Aortic valve area calculated 0.98 cm?? Aortic maximal pressure gradient 33.1 millimeters mercury Aortic mean pressure gradient of 19.8 millimeters mercury Moderate to severe aortic valve stenosis/calcific With a low ejection fraction 40-45% Grade 1 diastolic dysfunction Recommendation: Dobutamine stress echocardiogram to assess severity of aortic valve stenosis. No prior echo to compare. Ordering Physician: Mushtaq Schmidt Performed By: Sherwin Drake RCS
[2022-11-29 05:12] LABS: Allen Test Positive; Base Excess -11 mmol/L (-2 to +2); Bicarbonate 15.8 mmol/L (22-26); Blood Gas Specimen Type ART; FI02 60; O2 Delivery Device BiPAP; PEEP 8; PO2 100 mmHG (75-100); PS 6; SITE L Radial; SO2 97 % (95-99); Total Carbon Dioxide 17 mmol/L; pCO2 31.3 mmHg (35-45); pH 7.31 (7.35-7.45)
[2022-11-29] MEDS: 0.9% Normal Saline 1,000 ML 500 ML IV (05:20)
[2022-11-29 05:32] LABS: Osmolality, Serum 345 mOsm/KG (280-301)
[2022-11-29 05:34] LABS: Prothrombin Time (Protime)PT. 13.5 SECONDS (11.7-14.9)
[2022-11-29 05:35] LABS: Partial Thromboplast Time 26.5 Seconds (24.1-36.2)
[2022-11-29 05:39] LABS: Anion Gap 16 (5-15); BUN 66 mg/dL (7-18); BUN/Creat Ratio 15.3 RATIO (10-20); Calcium,Total 7.6 mg/dL (8.5-10.1); Chloride 98 mmol/L (98-107); Creatinine, Serum 4.31 mg/dL (0.70-1.30); EST Glomerular Filtration Rate 14 mL/min (>60); Est Glom Filt Rate - Afr Amer 17 mL/min (>60); Glucose 936 mg/dL (74-106); Potassium 4.8 mmol/L (3.5-5.1); Sodium Level 131 mmol/L (136-145)
[2022-11-29] MEDS: HEPARIN/D5w 25,000 UNITS 25,000 UNITS/250 ML IV.SOLN. 8 UNITS CONT INF (05:43)
[2022-11-29] MEDS: Heparin Injection (Vial) 5,000 UNIT/ML VIAL 4000 UNIT IV (05:44)
[2022-11-29 05:48] LABS: Differential Comment SCANNED
[2022-11-29 06:39] LABS: Glucose 838 mg/dL (74-106)
[2022-11-29] MEDS: 0.9% Normal Saline 1,000 ML 125 ML IV ×2 (06:59→07:38)
--- NOTE | 2022-11-29 07:04 | EX.PCM.CONCC ---
Assessment & Plan Assessment/Plan (1) DKA (diabetic ketoacidoses): QUALIFIERS: Diabetes mellitus type: type 1 Diabetes mellitus complication detail: without coma Qualified Code(s): E10.10 - Type 1 diabetes mellitus with ketoacidosis without coma (2) Acute respiratory failure with hypoxia: (3) Acute kidney injury: PLAN: Plan RECOMMENDATIONS: 1. Continue DKA protocol 2. BiPAP with sleep and rescue 3. Obtain sputum culture 4. Continue empiric antibiotics 5. Hold on Solu-Medrol for now given DKA 6. Initiate bronchodilators IMPRESSIONS: 1. Acute hypoxic respiratory failure Unclear etiology. Patient did have increased infiltrates noted in the right lower lobe. However, patient was not reporting of purulent sputum, fever or other stigmata of pneumonia previously. We will place patient on bronchodilators, but hold off on steroids as this could exacerbate patient's DKA. Will obtain a sputum culture. Continue empiric antibiotics for now. Continue to use BiPAP rescue as necessary. Another possibility would be flash pulmonary edema secondary to acute diastolic dysfunction. Patient does have an echocardiogram in the past showing diastolic dysfunction and presented with hypertension. 2. Acute kidney injury secondary to DKA on stage IV chronic kidney disease Baseline creatinine appears to be approximately 3. Patient with a difficult fluid situation as he requires fluids for DKA, but there is some suspicion for diastolic congestive heart failure with hypertensive urgency on presentation. Okay to continue with DKA protocol. 3. Elevated troponin Unclear etiology. Patient is on a heparin drip at this time. Patient does have worsening and hypoxia on presentation that may have led to a transient increase in troponin. Patient does have an echocardiogram pending. Defer to hospitalist on whether to involve cardiology. 4. Hypertension/history of granulomatous disease/osteopenia/tobacco abuse/undetermined sleep apnea Complicates care, management, recovery and prognosis. Likely okay to continue baseline medications. Nicotine patch can be offered if requested. Patient carries a diagnosis of sleep apnea, but baseline settings and sleep study are not available for review. Continue with empiric BiPAP. HPI Consult Data Date of Consult: 11/29/22 HPI Narrative Reason for Consultation: Hypoxia HPI Narrative: DEX VALLE is a 77 M, with past medical history listed below, who presents to [facility] on 11/28/2022 secondary to progressive shortness of breath. Patient reportedly was at a car show and started to have shortness of breath. Patient does carry diagnosis of COPD and continues to smoke. Patient has seen Dr. Vásquez, but is currently in annual visits secondary to mild obstruction on previous PFTs. Patient stated that his ability to ambulate got progressively worse and he started to develop a headache. Patient had taken Tylenol with some improvement, but not resolution. Patient denied any fever, chills or chest pain. In the ER, patient was afebrile, but tachycardic at 105 bpm. Patient was tachypneic at 26 breaths/min and was requiring significant oxygen to maintain saturations. Patient's initial blood pressure was 199/79 with a pulse ox of 83% on 4 L on presentation. Laboratory data showed a white blood cell count of 8.8, hemoglobin of 9.8, creatinine of 4.2, potassium of 5.3 and bicarbonate of 24. Glucose was elevated at over thousand, troponin at 300 and BNP at almost 800. CT of the head showed some chronic left maxillary sinus disease and chest x-ray showed a large right lower lobe infiltrate. The patient was transferred to the floor for further evaluation. Overnight, patient was noted to have more acidosis. Patient was transferred to the intensive care unit for initiation of an insulin drip and BiPAP therapy. Patient has responded well to BiPAP therapy and subjectively feels improved. Patient is not having any productive cough, fever or chills noted. Patient's glucose has been improving slowly. Patient reports she did not get much sleep and is not willing to do a review of systems at this time. Nursing does report that the patient was mentating at baseline previously. [facility] Medical History Alcohol use Anemia Aortic root dilatation Arthritis Atherosclerotic heart disease of [place] coronary artery without angina pectoris Back pain Back problem Bone fracture Bronchitis Cataracts, bilateral Chronic neck and back pain CKD (chronic kidney disease), stage IV COPD (chronic obstructive pulmonary disease) Diabetic retinopathy associated with type 1 diabetes mellitus Dietary restriction Dyspnea on exertion Essential hypertension Family history of hyperlipidemia Family history of hypertension Former smoker Headache Hearing loss, left Hearing loss, right Hearing problem High cholesterol History of echocardiogram History of pain when walking History of stress test Hyperlipidemia Hypertension Hypertension 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 Kidney stones long-term use of drug Mixed hyperlipidemia Nicotine abuse Olecranon bursitis, left elbow Olecranon bursitis, right elbow Osteoarthritis Osteopenia Prostate disease Shortness of breath on exertion Skin mole Sleep apnea Smoker Swelling of right elbow Unintentional weight loss of more than 10 pounds Vision problem Wears dentures Wears glasses Wears hearing aid Wears hearing aid in both ears Home Medications aspirin 81 mg tablet,delayed release (Adult Low Dose Aspirin) 81 mg PO QDAY 06/15/17 [History Last Taken 05/27/21] finasteride 5 mg tablet (Proscar) 5 mg PO QDAY 06/16/17 [History Last Taken Unknown] lisinopril 40 mg tablet 40 mg PO QDAY 06/16/17 [History Last Taken 05/29/21] multivitamin 1 tab PO QDAY 06/16/17 [History Last Taken Unknown] insulin lispro 200 unit/mL (3 mL) subcutaneous pen (Humalog KwikPen U-200 Insulin) See Rx Instructions subcut TID 10/24/21 [History Last Taken Unknown] ferrous sulfate 325 mg (65 mg iron) tablet 325 mg PO DAILY #90 tabs 12/30/21 [Rx Last Taken Unknown] flash glucose scanning reader (PS BiotechStyle Tani 2 Palo) #2 ea 03/28/22 [Rx Last Taken Unknown] flash glucose sensor (FreeStyle Tani 2 Sensor kit) #2 ea 03/28/22 [Rx Last Taken Unknown] rosuvastatin 20 mg tablet 20 mg PO DAILY 04/24/22 [History Last Taken Unknown] amlodipine 10 mg tablet 10 mg PO DAILY 04/30/22 [History Last Taken Unknown] docusate sodium 100 mg capsule (Colace) 200 mg PO BID 04/30/22 [History Last Taken Unknown] magnesium oxide 400 mg PO DAILY 04/30/22 [History Last Taken Unknown] vitamins A,C,M-vteg-uwndjf 4,296 mcg-226 mg-90 mg capsule (Vision Formula (vits X-F-I-zinc-copper)) 1 cap PO ONCE 04/30/22 [History Last Taken Unknown] bisacodyl 5 mg tablet,delayed release 5 mg PO ONCE 05/05/22 [History Last Taken Unknown] calcium citrate 200 mg (950 mg) tablet 200 mg PO DAILY 05/05/22 [History Last Taken Unknown] cholecalciferol (vitamin D3) 125 mcg (5,000 unit) capsule 125 mcg PO DAILY 05/05/22 [History Last Taken Unknown] cinnamon bark 500 mg capsule (Cinnamon) 1,000 mg PO DAILY 05/05/22 [History Last Taken Unknown] furosemide 40 mg tablet 40 mg PO DAILY 05/05/22 [History Last Taken Unknown] folic acid 400 mcg tablet 500 mcg PO BID 06/27/22 [History Last Taken Unknown] gabapentin 300 mg capsule 300 mg PO TID 06/27/22 [History Last Taken Unknown] insulin glargine 100 unit/mL (3 mL) subcutaneous pen (Lantus Solostar U-100 Insulin) 10 unit subcut DAILY 10/27/22 [History Last Taken Unknown] Allergy/AdvReac Type Severity Reaction Status Date / Time levofloxacin [From Levaquin] Allergy Hives Verified 11/28/22 21:34 Family History Father Diabetes Hypertension Family history of hyperlipidemia Asthma Kidney disease Mother Diabetes Brother Cancer Throat cancer Brother CAD (coronary artery disease) Myocardial infarction, Onset Age: 52 Sister Family history of hyperlipidemia Hypertension Diabetes Unknown Alcoholism Arthritis Depression Diabetes Hypertension Hyperlipidemia Osteoporosis Respiratory disease Pancreatic cancer Other Family history of hypertension Surgical History Fracture of left patella Fracture of left upper extremity History of bilateral inguinal hernia repair (~2007) History of colonoscopy (~2013) History of hemorrhoidectomy (~2000) History of hernia repair (~1991) stent replacement for right sided kidney stome Wrist fracture, bilateral Social History Smoking Status: Current every day smoker tobacco type: cigarettes Tobacco: How many years used: 50 alcohol intake: current alcohol intake frequency: a few times a month substance use type: does not use caffeine: Yes Type: coffee Number of servings: 2 what type of physical activity do you participate in: none seatbelt use: sometimes do you feel safe at home: Yes ROS ROS Narrative Unable to obtain secondary to patient cooperation Physical Exam Const alert and no apparent distress General Appearance: Negative for ill appearing HEENT normocephalic and head/scalp atraumatic HEENT Narrative: Dry mucous membranes. BiPAP in place. Eyes PERRL, EOMs intact bilaterally and conjunctivae normal Neck supple General: trachea midline Resp normal respiratory effort Resp Narrative: Fair effort Auscultation: diminished lung sounds; Negative for rales, rhonchi or wheezes Cardio regular rate, regular rhythm, S1 normal heart sound, S2 normal heart sound, no murmurs, no rub and no gallops GI normal to inspection, nondistended, normoactive bowel sounds Extremity no clubbing, cyanosis or edema Skin no rashes or lesions noted Neuro moves all extremities and no focal motor deficits Psych Mood & Affect: flat affect Medical Records Data Attestation: I reviewed the patient's medical records Medical records narrative: Patient does see Dr. Vásquez at baseline. Patient with mild COPD by PFT criteria. Lab / Micro Data Attestation: I reviewed the patient's lab results. 11/29/22 03:25 11/29/22 06:05 Labs: Laboratory Results - last 24 hr 11/28/22 21:30: WBC 8.8, RBC 3.17 L, Hgb 9.8 L, Hct 29.7 L, MCV 93.7, MCH 30.9, MCHC 33.0, RDW Std Deviation 45.1 H, RDW Coeff of Russell 13.1, Plt Count 360, MPV 10.8, Immature Gran % (Auto) 0.600, Neut % (Auto) 86.4 H, Lymph % (Auto) 8.8 L, [place] % (Auto) 4.0, Eos % (Auto) 0.0, Baso % (Auto) 0.2, Absolute Neuts (auto) 7.6, Absolute Lymphs (auto) 0.77 L, Nucleated RBC % 0, Sodium 124 L, Potassium 5.3 H, Chloride 89 L, Carbon Dioxide 24.0, Anion Gap 11, BUN 66 H, Creatinine 4.20 H, Estim Creat Clear Calc 13.27, Est GFR (MDRD) Af Amer 18 L, Est GFR (MDRD) Non-Af 15 L, BUN/Creatinine Ratio 15.7, Glucose 1004 H*, Calcium 8.4 L, Troponin I High Sens 301 H*, B-Natriuretic Peptide 798.8 H 11/29/22 00:04: POC Glucose > 500 H* 11/29/22 00:25: Sodium 127 L, Potassium 5.0, Chloride 93 L, Carbon Dioxide 19.0 L, Anion Gap 15, BUN 66 H, Creatinine 4.14 H, Estim Creat Clear Calc 13.47, Est GFR (MDRD) Af Amer 18 L, Est GFR (MDRD) Non-Af 15 L, BUN/Creatinine Ratio 15.9, Glucose 1065 H*, Calcium 7.5 L, Troponin I High Sens 299 H* 11/29/22 03:02: POC Glucose > 500 H* 11/29/22 03:25: WBC 11.2 H, RBC 2.81 L, Hgb 8.4 L, Hct 28.4 L, MCV 101.1 H D, MCH 29.9, MCHC 29.6 L D, RDW Std Deviation 48.3 H, RDW Coeff of Russell 13.1, Plt Count 325, MPV 10.9, Immature Gran % (Auto) 0.600, Neut % (Auto) 90.2 H, Lymph % (Auto) 3.8 L, [place] % (Auto) 5.3, Eos % (Auto) 0.0, Baso % (Auto) 0.1, Absolute Neuts (auto) 10.1 H, Absolute Lymphs (auto) 0.42 L, Nucleated RBC % 0, Differential Comment SCANNED, Sodium 127 L, Potassium 5.7 H, Chloride 95 L, Carbon Dioxide 17.0 L, Anion Gap 15, BUN 64 H, Creatinine 4.07 H, Estim Creat Clear Calc 13.14, Est GFR (MDRD) Af Amer 18 L, Est GFR (MDRD) Non-Af 15 L, BUN/Creatinine Ratio 15.7, Glucose 1108 H*, Serum Osmolality 345 H, Lactic Acid 3.0 H*, Calcium 7.5 L, Magnesium 2.6, Troponin I High Sens 3309 H*, Acetone Level SMALL H 11/29/22 05:05: Sodium 131 L, Potassium 4.8, Chloride 98, Carbon Dioxide 17.0 L, Anion Gap 16 H, BUN 66 H, Creatinine 4.31 H, Estim Creat Clear Calc 12.40, Est GFR (MDRD) Af Amer 17 L, Est GFR (MDRD) Non-Af 14 L, BUN/Creatinine Ratio 15.3, Glucose 936 H*, Calcium 7.6 L 11/29/22 05:17: PT 13.5, INR 1.0, APTT 26.5 11/29/22 06:05: Glucose 838 H* Micro: Microbiology 11/28/22 00:06 Nasal Secretion SARS-CoV-2 Antigen (Rapid) - Final ABG Data ABG results: ABG 11/29/22 11/29/22 01:46 05:09 Specimen Type ART ART Sample Site R RADIAL L Radial pH 7.21 L 7.31 L Bicarbonate Actual 18.0 L 15.8 L Total CO2 19 17 Base Excess -10 L -11 L O2 Saturation 84 L 97 O2 % 60 60 ABG pCO2 45.4 H 31.3 L ABG pO2 59 L 100 Ren Test POS Positive Respiration Rate 12 O2 Delivery Device Bi Pap BiPAP POC PEEP 8 POC Pressure Suppt 6 EPAP 8 IPAP 14 Crit Call To/Read Back Yes Blood Gas Notified Whom HOSP Blood Gas Notified Time 0146 Attestation: I personally reviewed and interpreted this ABG as follows: (Acute respiratory and metabolic acidosis with improvement following BiPAP therapy) Radiology Impression Brain CT 11/28/22 22:30 IMPRESSION: No acute intracranial pathology. Chronic left maxillary sinus disease with osseous changes sinus hightower. Electronically Signed: César Haines DO at 22:47 EDT , Chest X-Ray 11/28/22 22:32 IMPRESSION: 1. Large right lower lobe infiltrate and patchy opacities right mid lung and left lower lobe suspicious for multifocal pneumonia. Electronically Signed: César Haines DO at 22:50 EDT , Charges/Coding Visit Charges Inpatient E&M: 84687 Init Hosp L3
[2022-11-29] MEDS: 0.9% Saline Lock 10 ML Syringe IV ×6 (07:06→17:54)
--- NOTE | 2022-11-29 07:14 | CPS ---
patient weaned to .40% post assessment. patient on nursing cont. pulse oximeter.
--- NOTE | 2022-11-29 07:16 | CPS ---
patient weaned to .40% post assesment.
[2022-11-29 07:34] LABS: Troponin-I HS 7184 pg/mL (3.0-78.0)
[2022-11-29 07:34] LABS: Reflex Lactate? Y
[2022-11-29 07:35] LABS: Glucose 717 mg/dL (74-106)
--- NOTE | 2022-11-29 07:37 | PCM.PN.HOSP ---
Reason for Visit Reason for Visit: Diagnoses Sepsis, unspecified organism (11/28/22) Hyperkalemia (11/28/22) Pneumonia, unspecified organism (11/28/22) Severe sepsis without septic shock (11/28/22) Other specified abnormalities of plasma proteins (11/28/22) Objective Data Objective Data Vital Signs: Vital Signs Temp Pulse Resp BP Pulse Ox O2 Del Method O2 Flow Rate 98.7 F 82 19 H 136/62 H 100 Bi-pap 15 11/29/22 05:00 11/29/22 07:14 11/29/22 07:14 11/29/22 07:00 11/29/22 07:14 11/29/22 07:27 11/29/22 00:30 FiO2 40 11/29/22 07:27 Oxygen Flow Rate (L/min) 15 Oxygen Delivery Method Bi-pap Weight: 139 lb 1.787 oz Body Mass Index (BMI) 21.1 Intake & Output: Intake and Output for Last 24 Hours 11/27/22 11/28/22 11/29/22 23:59 23:59 23:59 Intake Total 3386.52 / 3386.52 Output Total 400 / 400 Balance 2986.52 / 2986.52 Lab / Micro Data 11/29/22 03:25 11/29/22 07:01 Labs: Laboratory Results - last 24 hr 11/28/22 21:30: WBC 8.8, RBC 3.17 L, Hgb 9.8 L, Hct 29.7 L, MCV 93.7, MCH 30.9, MCHC 33.0, RDW Std Deviation 45.1 H, RDW Coeff of Russell 13.1, Plt Count 360, MPV 10.8, Immature Gran % (Auto) 0.600, Neut % (Auto) 86.4 H, Lymph % (Auto) 8.8 L, [place] % (Auto) 4.0, Eos % (Auto) 0.0, Baso % (Auto) 0.2, Absolute Neuts (auto) 7.6, Absolute Lymphs (auto) 0.77 L, Nucleated RBC % 0, Sodium 124 L, Potassium 5.3 H, Chloride 89 L, Carbon Dioxide 24.0, Anion Gap 11, BUN 66 H, Creatinine 4.20 H, Estim Creat Clear Calc 13.27, Est GFR (MDRD) Af Amer 18 L, Est GFR (MDRD) Non-Af 15 L, BUN/Creatinine Ratio 15.7, Glucose 1004 H*, Calcium 8.4 L, Troponin I High Sens 301 H*, B-Natriuretic Peptide 798.8 H 11/29/22 00:04: POC Glucose > 500 H* 11/29/22 00:25: Sodium 127 L, Potassium 5.0, Chloride 93 L, Carbon Dioxide 19.0 L, Anion Gap 15, BUN 66 H, Creatinine 4.14 H, Estim Creat Clear Calc 13.47, Est GFR (MDRD) Af Amer 18 L, Est GFR (MDRD) Non-Af 15 L, BUN/Creatinine Ratio 15.9, Glucose 1065 H*, Calcium 7.5 L, Troponin I High Sens 299 H* 11/29/22 03:02: POC Glucose > 500 H* 11/29/22 03:25: WBC 11.2 H, RBC 2.81 L, Hgb 8.4 L, Hct 28.4 L, MCV 101.1 H D, MCH 29.9, MCHC 29.6 L D, RDW Std Deviation 48.3 H, RDW Coeff of Russell 13.1, Plt Count 325, MPV 10.9, Immature Gran % (Auto) 0.600, Neut % (Auto) 90.2 H, Lymph % (Auto) 3.8 L, [place] % (Auto) 5.3, Eos % (Auto) 0.0, Baso % (Auto) 0.1, Absolute Neuts (auto) 10.1 H, Absolute Lymphs (auto) 0.42 L, Nucleated RBC % 0, Differential Comment SCANNED, Sodium 127 L, Potassium 5.7 H, Chloride 95 L, Carbon Dioxide 17.0 L, Anion Gap 15, BUN 64 H, Creatinine 4.07 H, Estim Creat Clear Calc 13.14, Est GFR (MDRD) Af Amer 18 L, Est GFR (MDRD) Non-Af 15 L, BUN/Creatinine Ratio 15.7, Glucose 1108 H*, Serum Osmolality 345 H, Lactic Acid 3.0 H*, Calcium 7.5 L, Magnesium 2.6, Troponin I High Sens 3309 H*, Acetone Level SMALL H 11/29/22 05:05: Sodium 131 L, Potassium 4.8, Chloride 98, Carbon Dioxide 17.0 L, Anion Gap 16 H, BUN 66 H, Creatinine 4.31 H, Estim Creat Clear Calc 12.40, Est GFR (MDRD) Af Amer 17 L, Est GFR (MDRD) Non-Af 14 L, BUN/Creatinine Ratio 15.3, Glucose 936 H*, Calcium 7.6 L 11/29/22 05:17: PT 13.5, INR 1.0, APTT 26.5 11/29/22 06:05: Glucose 838 H* 11/29/22 07:01: Glucose 717 H*, Troponin I High Sens 7184 H* Micro: Microbiology 11/28/22 00:06 Nasal Secretion SARS-CoV-2 Antigen (Rapid) - Final ABG Data ABG results: ABG 11/29/22 11/29/22 01:46 05:09 Specimen Type ART ART Sample Site R RADIAL L Radial pH 7.21 L 7.31 L Bicarbonate Actual 18.0 L 15.8 L Total CO2 19 17 Base Excess -10 L -11 L O2 Saturation 84 L 97 O2 % 60 60 ABG pCO2 45.4 H 31.3 L ABG pO2 59 L 100 Ren Test POS Positive Respiration Rate 12 O2 Delivery Device Bi Pap BiPAP POC PEEP 8 POC Pressure Suppt 6 EPAP 8 IPAP 14 Crit Call To/Read Back Yes Blood Gas Notified Whom HOSP Blood Gas Notified Time 0146 Radiography Diagnostic Testing: Radiology Impression Brain CT 11/28/22 22:30 IMPRESSION: No acute intracranial pathology. Chronic left maxillary sinus disease with osseous changes sinus hightower. Electronically Signed: César Haines DO at 22:47 EDT , Chest X-Ray 11/28/22 22:32 IMPRESSION: 1. Large right lower lobe infiltrate and patchy opacities right mid lung and left lower lobe suspicious for multifocal pneumonia. Electronically Signed: César Haines DO at 22:50 EDT , Assessment & Plan Assessment/Plan (1) Severe sepsis: (2) Pneumonia: QUALIFIERS: Laterality: right Lung location: unspecified part of lung Pneumonia type: due to unspecified organism Qualified Code(s): J18.9 - Pneumonia, unspecified organism (3) Elevated troponin: (4) Hyperkalemia: PLAN: Plan This is a 77-year-old gentleman with multiple comorbidities came to ED for shortness of breath that stopped him 3 times from walking that started in the afternoon on 11/28/2022 along with the nonacute onset of headache. He also has greenish productive cough, chills but denied fever. Patient chronically has been excessively drinking and urinating. 1. Acute hypoxic and hypercarbic respiratory failure, unclear etiology but possible right lower lobe pneumonia: Patient is admitted in ICU on BiPAP. Initially patient on high flow oxygen and saturation was in 80s. ABG 7.21/45/59 60% FiO2 BiPAP. On bronchodilator. Pneumonia work-up including sputum culture and blood culture x2. There is possibility of acute diastolic dysfunction as x-ray was suspicious for flash pulmonary blood therefore 2D echo ordered. Previous echo showed diastolic dysfunction. The patient presented with sepsis due to (pneumonia) with acute sepsis related organ dysfunction as evidenced by (ENMANUEL). 2. Possibility of pneumonia: The patient presented with possibility of sepsis with clinical indicators of tachypnea, tachycardia, hypoxia due to most likely right lower lobe pneumonia. Patient has acute organ dysfunctions off acute hypoxic respiratory failure requiring BiPAP in the ED and ENMANUEL on CKD stage IV with creatinine 4.2 above baseline 3.0. But there is confounding factor as patient might have acute respiratory failure from acute diastolic heart failure and ENMANUEL from DKA. There is possibility of sepsis. Therefore continue IV antibiotics. Infectious work-up for pneumonia ordered. 3. DKA: Patient blood glucose very high. It was about 1000. Elevated anion gap and low bicarb and ABG suggestive of increased anion gap metabolic acidosis. 4. ENMANUEL on CKD stage IV with ENMANUEL probably due to the patient presented with sepsis and DKA Creatinine was 4.2 on presentation. Baseline about 3.0. IVF ordered. Hold Lasix and lisinopril. Monitor kidney function, electrolytes and intake and output . Elevated troponin with possibility of non-STEMI: Serial troponins monitored. 2 troponins was around 300 with no significant delta change but third 1 very high 3309 and 7184. On IV heparin drip. 2D echo is ordered. Exact etiology unclear. Reality of non-STEMI with very high troponin but may be due to acute hypoxic respiratory failure DKA and metabolic increased cardiac demand. Aspirin continued. Twelve-lead EKG shows sinus tachycardia. 2D echo is ordered. Tenderizer Tender is consulted Hyperkalemia Likely secondary to elevated blood glucose/DKA. IV fluids and insulin ordered. Possible acute on chronic HFpEF secondary to hypertension: Chest x-ray also suspicious of pulmonary venous congestion and elevated BNP about 800. But with patient in DKA patient needs IV fluid. Last echo in October 2020 shows EF 75% with normal LV systolic function, LA mildly enlarged and evidence of diastolic dysfunction. Home blood pressure medication continued. Lisinopril and Lasix held. As needed hydralazine ordered. Trend blood pressure and adjust blood pressure medications. DVT Prophylaxis Subcutaneous heparin ordered. Total time of the visit including total time spent in counseling or coordination of care, (more than 50% of the total time, spent in obtaining medical information from nurses and other ancillary care providers,explaining to the patient about labs, imaging, diagnosis and management of active complex medical conditions), multiple acute medical issues requiring ICU, discussion with consultants review of labs and imaging is 50 minutes. 11/28/22 21:30: WBC 8.8, RBC 3.17 L, Hgb 9.8 L, Hct 29.7 L, MCV 93.7, MCH 30.9, MCHC 33.0, RDW Std Deviation 45.1 H, RDW Coeff of Russell 13.1, Plt Count 360, MPV 10.8, Immature Gran % (Auto) 0.600, Neut % (Auto) 86.4 H, Lymph % (Auto) 8.8 L, [place] % (Auto) 4.0, Eos % (Auto) 0.0, Baso % (Auto) 0.2, Absolute Neuts (auto) 7.6, Absolute Lymphs (auto) 0.77 L, Nucleated RBC % 0, Sodium 124 L, Potassium 5.3 H, Chloride 89 L, Carbon Dioxide 24.0, Anion Gap 11, BUN 66 H, Creatinine 4.20 H, Estim Creat Clear Calc 13.27, Est GFR (MDRD) Af Amer 18 L, Est GFR (MDRD) Non-Af 15 L, BUN/Creatinine Ratio 15.7, Glucose 1004 H*, Calcium 8.4 L, Troponin I High Sens 301 H*, B-Natriuretic Peptide 798.8 H 11/29/22 00:04: POC Glucose > 500 H* 11/29/22 00:25: Sodium 127 L, Potassium 5.0, Chloride 93 L, Carbon Dioxide 19.0 L, Anion Gap 15, BUN 66 H, Creatinine 4.14 H, Estim Creat Clear Calc 13.47, Est GFR (MDRD) Af Amer 18 L, Est GFR (MDRD) Non-Af 15 L, BUN/Creatinine Ratio 15.9, Glucose 1065 H*, Calcium 7.5 L, Troponin I High Sens 299 H* 11/29/22 03:02: POC Glucose > 500 H* 11/29/22 03:25: WBC 11.2 H, RBC 2.81 L, Hgb 8.4 L, Hct 28.4 L, MCV 101.1 H D, MCH 29.9, MCHC 29.6 L D, RDW Std Deviation 48.3 H, RDW Coeff of Russell 13.1, Plt Count 325, MPV 10.9, Immature Gran % (Auto) 0.600, Neut % (Auto) 90.2 H, Lymph % (Auto) 3.8 L, [place] % (Auto) 5.3, Eos % (Auto) 0.0, Baso % (Auto) 0.1, Absolute Neuts (auto) 10.1 H, Absolute Lymphs (auto) 0.42 L, Nucleated RBC % 0, Differential Comment SCANNED, Sodium 127 L, Potassium 5.7 H, Chloride 95 L, Carbon Dioxide 17.0 L, Anion Gap 15, BUN 64 H, Creatinine 4.07 H, Estim Creat Clear Calc 13.14, Est GFR (MDRD) Af Amer 18 L, Est GFR (MDRD) Non-Af 15 L, BUN/Creatinine Ratio 15.7, Glucose 1108 H*, Serum Osmolality 345 H, Lactic Acid 3.0 H*, Calcium 7.5 L, Magnesium 2.6, Troponin I High Sens 3309 H*, Acetone Level SMALL H 11/29/22 05:05: Sodium 131 L, Potassium 4.8, Chloride 98, Carbon Dioxide 17.0 L, Anion Gap 16 H, BUN 66 H, Creatinine 4.31 H, Estim Creat Clear Calc 12.40, Est GFR (MDRD) Af Amer 17 L, Est GFR (MDRD) Non-Af 14 L, BUN/Creatinine Ratio 15.3, Glucose 936 H*, Calcium 7.6 L 11/29/22 05:17: PT 13.5, INR 1.0, APTT 26.5 11/29/22 06:05: Glucose 838 H* 11/29/22 07:01: Glucose 717 H*, Troponin I High Sens 7184 H* Charges/Coding Visit Charges Inpatient E&M: 09026 Subs Hosp L3
[2022-11-29] MEDS: Ipratropium/Albuterol Sulfate 3 ML AMPUL.NEB INHALATION ×3 (07:43→18:57)
--- NOTE | 2022-11-29 07:47 | CPS ---
patient weaned to .35% post treatment.
[2022-11-29 08:44] LABS: Anion Gap 10 (5-15); BUN 65 mg/dL (7-18); BUN/Creat Ratio 17.2 RATIO (10-20); Calcium,Total 7.5 mg/dL (8.5-10.1); Chloride 104 mmol/L (98-107); Creatinine, Serum 3.78 mg/dL (0.70-1.30); EST Glomerular Filtration Rate 17 mL/min (>60); Est Glom Filt Rate - Afr Amer 20 mL/min (>60); Estimated Creatinine Clearance 14.14 ml/min; Glucose 635 mg/dL (74-106); Potassium 4.5 mmol/L (3.5-5.1); Sodium Level 136 mmol/L (136-145)
[2022-11-29 09:20] LABS: Bedside Glucose 477 mg/dL (74-106)
[2022-11-29] MEDS: Cholecalciferol (Vit D3) 125 MCG CAPSULE (5,000 UNITS) PO (10:07)
[2022-11-29] MEDS: Ferrous Sulfate 325 MG Tablet PO (10:07)
[2022-11-29] MEDS: Multivitamin (Healthy Eyes) Capsule 1 CAP PO (10:08)
[2022-11-29] MEDS: Calcium Carbonate 500 MG Tablet PO (10:08)
[2022-11-29] MEDS: Multivitamins,Therapeutic Tablet 1 TABLET PO (10:08)
[2022-11-29] MEDS: Folic Acid 1 MG Tablet 0.5 MG PO ×2 (10:09→16:51)
[2022-11-29] MEDS: Magnesium Chloride 64 MG Delay Rel.Tablet 128 MG PO (10:12)
[2022-11-29] MEDS: Finasteride 5 MG Tablet PO (10:13)
[2022-11-29] MEDS: Docusate Sodium 100 MG Capsule 200 MG PO ×2 (10:14→21:14)
[2022-11-29] MEDS: amLODIPine 10 MG Tablet PO (10:15)
[2022-11-29] MEDS: Aspirin E.C. 81 MG Tablet PO (10:15)
[2022-11-29] MEDS: Gabapentin 100 MG Capsule 200 MG PO ×2 (10:18→16:52)
[2022-11-29 10:28] LABS: Bedside Glucose 483 mg/dL (74-106)
--- NOTE | 2022-11-29 10:30 | CPS ---
patient removed from bipap via nursing and placed on [address] Cole informed staff in rounds that patient could come off bipap if alert and not short of breath.
--- NOTE | 2022-11-29 10:58 | CASEMGMT ---
NADEEM VINCENT Assessment: Face to Face with pt for initial transition planning/care coordination assessment. NADEEM VINCENT introduced self and role at [facility], pt voices understanding and consents to assessment. Pt is A/O x4 and answers all questions appropriately at this time. Pt sitting up in bed with oxygen on in no distress with , dtr and son in law present in room. Pt agreeable to assessment with family present. Care providers, pharmacy, and demographics verified/updated. Admitting Dx: pneumonia PCP:Shlomo Specialists:Feng, cardio; Kristian, nephro; Prince, pod; Pt also sees the [facility]- [facility] Doron Preferred Pharmacy: [facility] Supp Prescription Benefit: [place] from [place] LNOK: Ghazala Andre, Living Arrangements: Pt lives with in a two story home with 3 steps to enter with a rail. Pt bed and bath are on first floor. Pt reports he is I in ADL's and denies concerns at home. Transportation: Pt drives self and denies concerns with transportation. DME/HHC/SNF: Pt does not typically use [facility] for ambulation. Pt has a walking stick, pox, CGM with sufficient supplies and insulin with sufficient supply of needles. Pt denies hx of HHC or SNF stays. Pt states no concerns with going home at time of dc. He states he has had [employer] in the past for oxygen and should he need it again, he would like them. Pt had been going to [facility] for PT but cancelled the rest of appts. Pt states no further concerns/needs. CM to follow. Advised pt to ask CM if any further question/concerns/needs arise, voices understanding. Pt Goal: Home Plan: Home, follow therapy and oxygen status
[2022-11-29 11:23] LABS: Bedside Glucose 424 mg/dL (74-106)
[2022-11-29 11:47] LABS: Partial Thromboplast Time > 200.0 Seconds (24.1-36.2); Troponin-I HS 6516 pg/mL (3.0-78.0)
[2022-11-29 12:20] LABS: Bedside Glucose 404 mg/dL (74-106)
[2022-11-29 13:13] LABS: M R Staph aureus DNA By PCR Negative (Negative); Probe Check PASS
[2022-11-29 13:36] LABS: Anion Gap 8 (5-15); BUN 62 mg/dL (7-18); BUN/Creat Ratio 17.7 RATIO (10-20); Chloride 107 mmol/L (98-107); Creatinine, Serum 3.51 mg/dL (0.70-1.30); EST Glomerular Filtration Rate 18 mL/min (>60); Est Glom Filt Rate - Afr Amer 22 mL/min (>60); Estimated Creatinine Clearance 15.23 ml/min; Glucose 366 mg/dL (74-106); Potassium 4.1 mmol/L (3.5-5.1); Sodium Level 138 mmol/L (136-145)
[2022-11-29] MEDS: Insulin Glargine-YFGN 100 UNIT/ML Pen 15 UNIT SC (14:25)
[2022-11-29 14:42] LABS: Bedside Glucose 274 mg/dL (74-106)
--- NOTE | 2022-11-29 14:49 | PCM.CONS.C ---
Assessment & Plan Assessment/Plan (1) Acute respiratory failure with hypoxia: (2) DKA (diabetic ketoacidoses): QUALIFIERS: Diabetes mellitus type: type 1 Diabetes mellitus complication detail: without coma Qualified Code(s): E10.10 - Type 1 diabetes mellitus with ketoacidosis without coma (3) Hyperkalemia: (4) Elevated troponin: (5) Pneumonia: QUALIFIERS: Pneumonia type: due to unspecified organism Laterality: right Lung location: unspecified part of lung Qualified Code(s): J18.9 - Pneumonia, unspecified organism (6) Acute kidney injury: (7) CKD (chronic kidney disease) stage 4, GFR 15-29 ml/min: (8) NSTEMI, initial episode of care: PLAN: 77-year-old patient, multiple medical comorbidities with end-stage renal disease stage IV, poorly controlled diabetes mellitus. Hypertension Admitted with acute hypoxic respiratory failure with pneumonia. And DKA. Hypertension Nicotine dependence. NIKHIL Seen and evaluated in the intensive care unit Cardiac consult requested because of elevated cardiac biomarker with high sensitive troponin This patient admitted with sent as of shortness of breath Associated with headache Does not have any active chest pain. This patient is a acute hypoxic and hypercapnic respiratory failure And has right lower lobe pneumonia DKA with significant elevated blood glucose level on admission more than 900 Also patient had acute kidney injury on CKD stage IV. With a creatinine range of around 4.2. From cardiac standpoint card examination, cardiac rhythm is normal sinus Cardiac exam S1-S2 regular Chest examination showed coarse bilateral crackles more prominent on the right mid and lower side. Cardiac care plan recommendation I reviewed and discussed all his current evaluation in the hospital including imaging studies with echocardiogram Which showed reduced LV systolic function ejection fraction in the range of around 40-45% He also has moderate to severe calcific aortic valve stenosis. Recommendation will be to evaluate with dobutamine stress echocardiogram to assess severity of the aortic valve stenosis Patient is a high risk for cardiac cath due to stage IV chronic renal insufficiency with worsening of the renal function. And at risk of requiring dialysis Patient has a tent worker as an outpatient who advised him to have the AV fistula prepared. He is reluctant to undergo cardiac cath at this point due to the risk of worsening his renal function and requirement of dialysis Consulted the tent worker to discuss further plan with the patient. And we will continue medical therapy with heparin. Aspirin statin and beta-francesco as needed. We will hold on the JOON inhibitor for now due to his chronic renal disease. From cardiac standpoint echocardiographic evaluation showed EF in the range of 40-45% with moderate to severe calcific aortic valve stenosis Based on the echocardiogram today, with recommend dobutamine echocardiogram for better evaluation of severity of aortic stenosis. HPI Consult Data Date of Consult: 11/29/22 HPI Narrative Reason for Consultation: Abnormal cardiac biomarker high sensitive troponin elevated/non-STEMI. HPI Narrative: DEX VALLE, is a 77 M who presents [facility] Medical History Alcohol use Anemia Aortic root dilatation Arthritis Atherosclerotic heart disease of [place] coronary artery without angina pectoris Back pain Back problem Bone fracture Bronchitis Cataracts, bilateral Chronic neck and back pain CKD (chronic kidney disease), stage IV COPD (chronic obstructive pulmonary disease) Diabetic retinopathy associated with type 1 diabetes mellitus Dietary restriction Dyspnea on exertion Essential hypertension Family history of hyperlipidemia Family history of hypertension Former smoker Headache Hearing loss, left Hearing loss, right Hearing problem High cholesterol History of echocardiogram History of pain when walking History of stress test Hyperlipidemia Hypertension Hypertension 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 Kidney stones 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 Mixed hyperlipidemia Nicotine abuse Olecranon bursitis, left elbow Olecranon bursitis, right elbow Osteoarthritis Osteopenia Prostate disease Shortness of breath on exertion Skin mole Sleep apnea Smoker Swelling of right elbow Unintentional weight loss of more than 10 pounds Vision problem Wears dentures Wears glasses Wears hearing aid Wears hearing aid in both ears Home Medications aspirin 81 mg tablet,delayed release (Adult Low Dose Aspirin) 81 mg PO QDAY 06/15/17 [History Last Taken 05/27/21] finasteride 5 mg tablet (Proscar) 5 mg PO QDAY 06/16/17 [History Last Taken Unknown] lisinopril 40 mg tablet 40 mg PO QDAY 06/16/17 [History Last Taken 05/29/21] multivitamin 1 tab PO QDAY 06/16/17 [History Last Taken Unknown] insulin lispro 200 unit/mL (3 mL) subcutaneous pen (Humalog KwikPen U-200 Insulin) See Rx Instructions subcut TID 10/24/21 [History Last Taken Unknown] ferrous sulfate 325 mg (65 mg iron) tablet 325 mg PO DAILY #90 tabs 12/30/21 [Rx Last Taken Unknown] flash glucose scanning reader (FreeStyle Tani 2 [place]) #2 ea 03/28/22 [Rx Last Taken Unknown] flash glucose sensor (FreeStyle Tani 2 Sensor kit) #2 ea 03/28/22 [Rx Last Taken Unknown] rosuvastatin 20 mg tablet 20 mg PO DAILY 04/24/22 [History Last Taken Unknown] amlodipine 10 mg tablet 10 mg PO DAILY 04/30/22 [History Last Taken Unknown] docusate sodium 100 mg capsule (Colace) 200 mg PO BID 04/30/22 [History Last Taken Unknown] magnesium oxide 400 mg PO DAILY 04/30/22 [History Last Taken Unknown] vitamins A,C,W-wnvy-itpsts 4,296 mcg-226 mg-90 mg capsule (Vision Formula (vits J-R-Z-zinc-copper)) 1 cap PO ONCE 04/30/22 [History Last Taken Unknown] bisacodyl 5 mg tablet,delayed release 5 mg PO ONCE 05/05/22 [History Last Taken Unknown] calcium citrate 200 mg (950 mg) tablet 200 mg PO DAILY 05/05/22 [History Last Taken Unknown] cholecalciferol (vitamin D3) 125 mcg (5,000 unit) capsule 125 mcg PO DAILY 05/05/22 [History Last Taken Unknown] cinnamon bark 500 mg capsule (Cinnamon) 1,000 mg PO DAILY 05/05/22 [History Last Taken Unknown] furosemide 40 mg tablet 40 mg PO DAILY 05/05/22 [History Last Taken Unknown] folic acid 400 mcg tablet 500 mcg PO BID 06/27/22 [History Last Taken Unknown] gabapentin 300 mg capsule 300 mg PO TID 06/27/22 [History Last Taken Unknown] insulin glargine 100 unit/mL (3 mL) subcutaneous pen (Lantus Solostar U-100 Insulin) 10 unit subcut DAILY 10/27/22 [History Last Taken Unknown] Allergy/AdvReac Type Severity Reaction Status Date / Time levofloxacin [From Levaquin] Allergy Hives Verified 11/28/22 21:34 Family History Father Diabetes Hypertension Family history of hyperlipidemia Asthma Kidney disease Mother Diabetes Brother Cancer Throat cancer Brother CAD (coronary artery disease) Myocardial infarction, Onset Age: 52 Sister Family history of hyperlipidemia Hypertension Diabetes Unknown Alcoholism Arthritis Depression Diabetes Hypertension Hyperlipidemia Osteoporosis Respiratory disease Pancreatic cancer Other Family history of hypertension Surgical History Fracture of left patella Fracture of left upper extremity History of bilateral inguinal hernia repair (~2007) History of colonoscopy (~2013) History of hemorrhoidectomy (~2000) History of hernia repair (~1991) stent replacement for right sided kidney stome Wrist fracture, bilateral Social History Smoking Status: Current every day smoker tobacco type: cigarettes Tobacco: How many years used: 50 alcohol intake: current alcohol intake frequency: a few times a month substance use type: does not use caffeine: Yes Type: coffee Number of servings: 2 what type of physical activity do you participate in: none seatbelt use: sometimes do you feel safe at home: Yes Physical Exam Cardio Cardio Narrative: Patient seen and evaluated in the intensive care unit Along with the nursing staff at bedside at time of evaluation Symptoms of shortness of breath improving and was sitting out in a chair does not have any active chest pain marketing consultant showed sinus with sinus tachycardia Oxygen saturation within normal. Cardiovascular exam S1-S2 is regular Chest exam had a coarse bilateral crackles more prominent on the right mid and lower side. Examination lower extremity +1 lower extremity edema. Risk Stratification Risk Stratification Applicable: Yes Age >/= 65: Yes >/= 3 CAD Risk Factors (HTN, HLD, DM, family hx of CAD, or current smoker): Yes Aspirin Use in the Past 7 Days: Yes Severe Angina (>/= episodes in 24 hours): No EKG ST Changes >/= 0.5mm: No Positive Cardiac Marker: Yes THAO Risk Stratification Score: 4 THAO % Risk: 20% Risk Objective Data Vital Signs: Vital Signs Temp Pulse Resp BP Pulse Ox O2 Del Method O2 Flow Rate 97.9 F 83 15 156/68 H 94 Nasal Cannula 4 11/29/22 12:00 11/29/22 14:00 11/29/22 14:00 11/29/22 14:00 11/29/22 14:00 11/29/22 14:00 11/29/22 14:00 FiO2 35 11/29/22 10:00 Oxygen Flow Rate (L/min) 4 Oxygen Delivery Method Nasal Cannula Weight: 139 lb 1.787 oz Body Mass Index (BMI) 21.1 Intake & Output: Intake and Output for Last 24 Hours 11/27/22 11/28/22 11/29/22 23:59 23:59 23:59 Intake Total 3526.13 / 3526.13 Output Total 925 / 925 Balance 2601.13 / 2601.13 Lab / Micro Data 11/29/22 03:25 11/29/22 12:45 Labs: Laboratory Results - last 24 hr 11/28/22 21:30: WBC 8.8, RBC 3.17 L, Hgb 9.8 L, Hct 29.7 L, MCV 93.7, MCH 30.9, MCHC 33.0, RDW Std Deviation 45.1 H, RDW Coeff of Russell 13.1, Plt Count 360, MPV 10.8, Immature Gran % (Auto) 0.600, Neut % (Auto) 86.4 H, Lymph % (Auto) 8.8 L, O'Brien % (Auto) 4.0, Eos % (Auto) 0.0, Baso % (Auto) 0.2, Absolute Neuts (auto) 7.6, Absolute Lymphs (auto) 0.77 L, Nucleated RBC % 0, Sodium 124 L, Potassium 5.3 H, Chloride 89 L, Carbon Dioxide 24.0, Anion Gap 11, BUN 66 H, Creatinine 4.20 H, Estim Creat Clear Calc 13.27, Est GFR (MDRD) Af Amer 18 L, Est GFR (MDRD) Non-Af 15 L, BUN/Creatinine Ratio 15.7, Glucose 1004 H*, Calcium 8.4 L, Troponin I High Sens 301 H*, B-Natriuretic Peptide 798.8 H 11/29/22 00:04: POC Glucose > 500 H* 11/29/22 00:25: Sodium 127 L, Potassium 5.0, Chloride 93 L, Carbon Dioxide 19.0 L, Anion Gap 15, BUN 66 H, Creatinine 4.14 H, Estim Creat Clear Calc 13.47, Est GFR (MDRD) Af Amer 18 L, Est GFR (MDRD) Non-Af 15 L, BUN/Creatinine Ratio 15.9, Glucose 1065 H*, Calcium 7.5 L, Troponin I High Sens 299 H* 11/29/22 03:02: POC Glucose > 500 H* 11/29/22 03:25: WBC 11.2 H, RBC 2.81 L, Hgb 8.4 L, Hct 28.4 L, MCV 101.1 H D, MCH 29.9, MCHC 29.6 L D, RDW Std Deviation 48.3 H, RDW Coeff of Russell 13.1, Plt Count 325, MPV 10.9, Immature Gran % (Auto) 0.600, Neut % (Auto) 90.2 H, Lymph % (Auto) 3.8 L, O'Brien % (Auto) 5.3, Eos % (Auto) 0.0, Baso % (Auto) 0.1, Absolute Neuts (auto) 10.1 H, Absolute Lymphs (auto) 0.42 L, Nucleated RBC % 0, Differential Comment SCANNED, Sodium 127 L, Potassium 5.7 H, Chloride 95 L, Carbon Dioxide 17.0 L, Anion Gap 15, BUN 64 H, Creatinine 4.07 H, Estim Creat Clear Calc 13.14, Est GFR (MDRD) Af Amer 18 L, Est GFR (MDRD) Non-Af 15 L, BUN/Creatinine Ratio 15.7, Glucose 1108 H*, Serum Osmolality 345 H, Lactic Acid 3.0 H*, Calcium 7.5 L, Magnesium 2.6, Troponin I High Sens 3309 H*, Acetone Level SMALL H 11/29/22 05:05: Sodium 131 L, Potassium 4.8, Chloride 98, Carbon Dioxide 17.0 L, Anion Gap 16 H, BUN 66 H, Creatinine 4.31 H, Estim Creat Clear Calc 12.40, Est GFR (MDRD) Af Amer 17 L, Est GFR (MDRD) Non-Af 14 L, BUN/Creatinine Ratio 15.3, Glucose 936 H*, Calcium 7.6 L 11/29/22 05:17: PT 13.5, INR 1.0, APTT 26.5 11/29/22 06:05: Glucose 838 H* 11/29/22 07:01: Glucose 717 H*, Troponin I High Sens 7184 H* 11/29/22 08:00: Sodium 136, Potassium 4.5, Chloride 104, Carbon Dioxide 22.0, Anion Gap 10, BUN 65 H, Creatinine 3.78 H, Estim Creat Clear Calc 14.14, Est GFR (MDRD) Af Amer 20 L, Est GFR (MDRD) Non-Af 17 L, BUN/Creatinine Ratio 17.2, Glucose 635 H*, Calcium 7.5 L 11/29/22 09:01: POC Glucose 477 H* 11/29/22 09:50: MRSA (PCR) Negative 11/29/22 10:02: POC Glucose 483 H* 11/29/22 11:03: POC Glucose 424 H 11/29/22 11:15: APTT > 200.0 H*, Troponin I High Sens 6516 H* 11/29/22 12:00: POC Glucose 404 H 11/29/22 12:45: Sodium 138, Potassium 4.1, Chloride 107, Carbon Dioxide 23.0, Anion Gap 8, BUN 62 H, Creatinine 3.51 H, Estim Creat Clear Calc 15.23, Est GFR (MDRD) Af Amer 22 L, Est GFR (MDRD) Non-Af 18 L, BUN/Creatinine Ratio 17.7, Glucose 366 H, Calcium 8.0 L 11/29/22 14:22: POC Glucose 274 H Micro: Microbiology 11/29/22 08:50 Mucosa - Nasopharyngeal Respiratory Panel (PCR) - Final 11/29/22 10:40 Urine, Random Legionella Antigen - Final 11/29/22 10:40 Urine, Random Streptococcus pneumoniae Antigen (M - Final 11/28/22 00:06 Nasal Secretion SARS-CoV-2 Antigen (Rapid) - Final ABG Data ABG results: ABG 11/29/22 11/29/22 01:46 05:09 Specimen Type ART ART Sample Site R RADIAL L Radial pH 7.21 L 7.31 L Bicarbonate Actual 18.0 L 15.8 L Total CO2 19 17 Base Excess -10 L -11 L O2 Saturation 84 L 97 O2 % 60 60 ABG pCO2 45.4 H 31.3 L ABG pO2 59 L 100 Ren Test POS Positive Respiration Rate 12 O2 Delivery Device Bi Pap BiPAP POC PEEP 8 POC Pressure Suppt 6 EPAP 8 IPAP 14 Crit Call To/Read Back Yes Blood Gas Notified Whom HOSP Blood Gas Notified Time 0146 Cardiology Labs/Tests 11/28/22 21:30: WBC 8.8, RBC 3.17 L, Hgb 9.8 L, Hct 29.7 L, MCV 93.7, MCH 30.9, MCHC 33.0, Plt Count 360, MPV 10.8, Immature Gran % (Auto) 0.600, Neut % (Auto) 86.4 H, Lymph % (Auto) 8.8 L, O'Brien % (Auto) 4.0, Eos % (Auto) 0.0, Baso % (Auto) 0.2, Absolute Neuts (auto) 7.6, Nucleated RBC % 0, Sodium 124 L, Potassium 5.3 H, Chloride 89 L, Carbon Dioxide 24.0, Anion Gap 11, BUN 66 H, Creatinine 4.20 H, Est GFR (MDRD) Af Amer 18 L, Est GFR (MDRD) Non-Af 15 L, BUN/Creatinine Ratio 15.7, Glucose 1004 H*, Calcium 8.4 L, B-Natriuretic Peptide 798.8 H 11/29/22 00:25: Sodium 127 L, Potassium 5.0, Chloride 93 L, Carbon Dioxide 19.0 L, Anion Gap 15, BUN 66 H, Creatinine 4.14 H, Est GFR (MDRD) Af Amer 18 L, Est GFR (MDRD) Non-Af 15 L, BUN/Creatinine Ratio 15.9, Glucose 1065 H*, Calcium 7.5 L 11/29/22 01:46: pH 7.21 L, Bicarbonate Actual 18.0 L, Base Excess -10 L, O2 Saturation 84 L, ABG pCO2 45.4 H, ABG pO2 59 L, Ren Test POS 11/29/22 03:25: WBC 11.2 H, RBC 2.81 L, Hgb 8.4 L, Hct 28.4 L, MCV 101.1 H D, MCH 29.9, MCHC 29.6 L D, Plt Count 325, MPV 10.9, Immature Gran % (Auto) 0.600, Neut % (Auto) 90.2 H, Lymph % (Auto) 3.8 L, O'Brien % (Auto) 5.3, Eos % (Auto) 0.0, Baso % (Auto) 0.1, Absolute Neuts (auto) 10.1 H, Nucleated RBC % 0, Sodium 127 L, Potassium 5.7 H, Chloride 95 L, Carbon Dioxide 17.0 L, Anion Gap 15, BUN 64 H, Creatinine 4.07 H, Est GFR (MDRD) Af Amer 18 L, Est GFR (MDRD) Non-Af 15 L, BUN/Creatinine Ratio 15.7, Glucose 1108 H*, Serum Osmolality 345 H, Lactic Acid 3.0 H*, Calcium 7.5 L, Magnesium 2.6 11/29/22 05:05: Sodium 131 L, Potassium 4.8, Chloride 98, Carbon Dioxide 17.0 L, Anion Gap 16 H, BUN 66 H, Creatinine 4.31 H, Est GFR (MDRD) Af Amer 17 L, Est GFR (MDRD) Non-Af 14 L, BUN/Creatinine Ratio 15.3, Glucose 936 H*, Calcium 7.6 L 11/29/22 05:09: pH 7.31 L, Bicarbonate Actual 15.8 L, Base Excess -11 L, O2 Saturation 97, ABG pCO2 31.3 L, ABG pO2 100, Ren Test Positive 11/29/22 05:17: PT 13.5, INR 1.0, APTT 26.5 11/29/22 06:05: Glucose 838 H* 11/29/22 07:01: Glucose 717 H* 11/29/22 08:00: Sodium 136, Potassium 4.5, Chloride 104, Carbon Dioxide 22.0, Anion Gap 10, BUN 65 H, Creatinine 3.78 H, Est GFR (MDRD) Af Amer 20 L, Est GFR (MDRD) Non-Af 17 L, BUN/Creatinine Ratio 17.2, Glucose 635 H*, Calcium 7.5 L 11/29/22 11:15: APTT > 200.0 H* 11/29/22 12:45: Sodium 138, Potassium 4.1, Chloride 107, Carbon Dioxide 23.0, Anion Gap 8, BUN 62 H, Creatinine 3.51 H, Est GFR (MDRD) Af Amer 22 L, Est GFR (MDRD) Non-Af 18 L, BUN/Creatinine Ratio 17.7, Glucose 366 H, Calcium 8.0 L Rhythm: EKG: ECHO: Stress Test: Cardiac Cath: PCI: CT Surgery: Holter monitor: EPS: PPM: CXR: Chest CT Scan: Radiography Diagnostic Testing: Radiology Impression Brain CT 11/28/22 22:30 IMPRESSION: No acute intracranial pathology. Chronic left maxillary sinus disease with osseous changes sinus hightower. Electronically Signed: César Haines DO at 22:47 EDT , Chest X-Ray 11/28/22 22:32 IMPRESSION: 1. Large right lower lobe infiltrate and patchy opacities right mid lung and left lower lobe suspicious for multifocal pneumonia. Electronically Signed: César Haines DO at 22:50 EDT , Echocardiogram 11/29/22 05:04 Interpretation Summary The estimated ejection fraction is 40-45 %. Aortic valve area calculated 0.98 cm?? Aortic maximal pressure gradient 33.1 millimeters mercury Aortic mean pressure gradient of 19.8 millimeters mercury Moderate to severe aortic valve stenosis/calcific With a low ejection fraction 40-45% Grade 1 diastolic dysfunction Recommendation: Dobutamine stress echocardiogram to assess severity of aortic valve stenosis. No prior echo to compare. Ordering Physician: Mushtaq Schmidt Performed By: Sherwin Drake RCS
--- NOTE | 2022-11-29 15:09 | NURSING ---
1505 Accu check 221. Pt currently eating. Per MD order insulin drip to 1.5 U/hr, no sliding scale coverage at this time. 15 U of Lantus given at 1425. Next accu check 1605.
[2022-11-29 15:24] LABS: Bedside Glucose 221 mg/dL (74-106)
[2022-11-29 16:16] LABS: Bedside Glucose 216 mg/dL (74-106)
[2022-11-29 16:19] LABS: Anion Gap 8 (5-15); BUN 59 mg/dL (7-18); BUN/Creat Ratio 17.5 RATIO (10-20); Calcium,Total 7.9 mg/dL (8.5-10.1); Chloride 109 mmol/L (98-107); Creatinine, Serum 3.37 mg/dL (0.70-1.30); EST Glomerular Filtration Rate 19 mL/min (>60); Est Glom Filt Rate - Afr Amer 23 mL/min (>60); Estimated Creatinine Clearance 15.86 ml/min; Glucose 243 mg/dL (74-106); Sodium Level 141 mmol/L (136-145)
[2022-11-29] MEDS: Insulin Lispro 100 UNIT/ML INSULN.PEN SC ×2 (17:01→21:14)
[2022-11-29 17:31] LABS: Bedside Glucose 185 mg/dL (74-106)
[2022-11-29 19:33] LABS: Partial Thromboplast Time 81.8 Seconds (24.1-36.2)
[2022-11-29 20:20] LABS: Lactic Acid 3.7 mmol/L (0.4-1.9)
[2022-11-29] MEDS: Atorvastatin Calcium 40 MG Tablet PO (21:14)
[2022-11-29 21:43] LABS: Bedside Glucose 175 mg/dL (74-106)
[2022-11-30] VITALS (17 sets, daily range): BP systolic 114–172; BP diastolic 48–84; PULSE 84–115; RESP 12–29; TEMP 37–37.6; O2SAT 88–96; BMI 22.1
[2022-11-30 02:43] LABS: Partial Thromboplast Time 30.9 Seconds (24.1-36.2)
[2022-11-30 02:44] LABS: Anion Gap 5 (5-15); BUN 63 mg/dL (7-18); BUN/Creat Ratio 19.4 RATIO (10-20); Calcium,Total 7.6 mg/dL (8.5-10.1); Chloride 110 mmol/L (98-107); Creatinine, Serum 3.24 mg/dL (0.70-1.30); EST Glomerular Filtration Rate 20 mL/min (>60); Est Glom Filt Rate - Afr Amer 24 mL/min (>60); Glucose 74 mg/dL (74-106); Potassium 3.9 mmol/L (3.5-5.1); Sodium Level 139 mmol/L (136-145)
[2022-11-30] MEDS: Heparin Injection (Vial) 5,000 UNIT/ML VIAL IV (02:51)
[2022-11-30] MEDS: 0.9% Saline Lock 10 ML Syringe IV ×2 (06:56→08:35)
[2022-11-30] MEDS: Furosemide 20 MG/2 ML VIAL IV (06:56)
[2022-11-30] MEDS: Ipratropium/Albuterol Sulfate 3 ML AMPUL.NEB INHALATION ×3 (07:01→19:21)
--- NOTE | 2022-11-30 07:21 | PCM.PN.INT ---
Assessment & Plan Assessment/Plan (1) DKA (diabetic ketoacidoses): QUALIFIERS: Diabetes mellitus type: type 1 Diabetes mellitus complication detail: without coma Qualified Code(s): E10.10 - Type 1 diabetes mellitus with ketoacidosis without coma (2) Acute respiratory failure with hypoxia: (3) Acute kidney injury: PLAN: Plan RECOMMENDATIONS: 1. Challenge with diuretics 2. BiPAP with sleep and rescue 3. Continue antibiotics pending cultures 4. Wean oxygen as tolerated IMPRESSIONS: 1. Acute hypoxic respiratory failure Unclear etiology. Patient did have increased infiltrates noted in the right lower lobe. However, patient was not reporting of purulent sputum, fever or other stigmata of pneumonia previously. We was placed on bronchodilators, but hold off on steroids as this could exacerbate patient's diabetes. Will await a sputum culture. Continue empiric antibiotics for now. Continue to use BiPAP rescue as necessary. Given highly variable oxygen requirements, pulmonary edema is highly suspected as an etiology. Therapeutic index for volume status will be very tight given patient's aortic stenosis. 2. Acute kidney injury secondary to DKA on stage IV chronic kidney disease Baseline creatinine appears to be approximately 3. Patient with a difficult fluid situation as he requires fluids for DKA, but there is some suspicion for diastolic congestive heart failure with hypertensive urgency on presentation. Okay to continue with DKA protocol. 3. Elevated troponin Unclear etiology. Patient is on a heparin drip at this time. Patient does have worsening and hypoxia on presentation that may have led to a transient increase in troponin. Patient does have an echocardiogram showing decreased EF with aortic stenosis. Cardiology is following 4. Hypertension/history of granulomatous disease/osteopenia/tobacco abuse/undetermined sleep apnea Complicates care, management, recovery and prognosis. Likely okay to continue baseline medications. Nicotine patch can be offered if requested. Patient carries a diagnosis of sleep apnea, but baseline settings and sleep study are not available for review. Continue with empiric BiPAP rescue and sleep. Subjective Subjective Patient did okay overnight. Patient wore the BiPAP for only 3 hours and this morning did have to be placed on 10 L/min to maintain saturations. This has slowly improved with time. Patient is reporting slight tachypnea, but no pain. Patient has been off of insulin drip since yesterday afternoon. Patient was seen by cardiology, but reportedly refuses heart catheterization. Objective Data Objective Data Vital Signs: Vital Signs Temp Pulse Resp BP Pulse Ox O2 Del Method O2 Flow Rate 37.0 C 96 19 H 145/76 H 90 Nasal Cannula 4 11/30/22 04:00 11/30/22 04:00 11/30/22 04:00 11/30/22 04:00 11/30/22 06:30 11/30/22 06:30 11/30/22 06:30 FiO2 35 11/29/22 10:00 Oxygen Flow Rate (L/min) 4 Oxygen Delivery Method Nasal Cannula Weight: 66.3 kg Body Mass Index (BMI) 22.1 Intake & Output: Intake and Output for Last 24 Hours 11/28/22 11/29/22 11/30/22 23:59 23:59 23:59 Intake Total 4823.21 / 5063.21 267.13 / 267.13 Output Total 1150 / 1525 900 / 900 Balance 3673.21 / 3538.21 -632.87 / -632.87 Lab / Micro Data Attestation: I reviewed the patient's lab results. 11/29/22 03:25 11/30/22 02:22 Labs: Laboratory Results - last 24 hr 11/29/22 07:01: Glucose 717 H*, Troponin I High Sens 7184 H* 11/29/22 08:00: Sodium 136, Potassium 4.5, Chloride 104, Carbon Dioxide 22.0, Anion Gap 10, BUN 65 H, Creatinine 3.78 H, Estim Creat Clear Calc 14.14, Est GFR (MDRD) Af Amer 20 L, Est GFR (MDRD) Non-Af 17 L, BUN/Creatinine Ratio 17.2, Glucose 635 H*, Calcium 7.5 L 11/29/22 08:06: Lactic Acid 3.7 H* 11/29/22 09:01: POC Glucose 477 H* 11/29/22 09:50: MRSA (PCR) Negative 11/29/22 10:02: POC Glucose 483 H* 11/29/22 11:03: POC Glucose 424 H 11/29/22 11:15: APTT > 200.0 H*, Troponin I High Sens 6516 H* 11/29/22 12:00: POC Glucose 404 H 11/29/22 12:45: Sodium 138, Potassium 4.1, Chloride 107, Carbon Dioxide 23.0, Anion Gap 8, BUN 62 H, Creatinine 3.51 H, Estim Creat Clear Calc 15.23, Est GFR (MDRD) Af Amer 22 L, Est GFR (MDRD) Non-Af 18 L, BUN/Creatinine Ratio 17.7, Glucose 366 H, Calcium 8.0 L 11/29/22 14:22: POC Glucose 274 H 11/29/22 15:05: POC Glucose 221 H 11/29/22 15:55: Sodium 141, Potassium 4.0, Chloride 109 H, Carbon Dioxide 24.0, Anion Gap 8, BUN 59 H, Creatinine 3.37 H, Estim Creat Clear Calc 15.86, Est GFR (MDRD) Af Amer 23 L, Est GFR (MDRD) Non-Af 19 L, BUN/Creatinine Ratio 17.5, Glucose 243 H, Calcium 7.9 L, POC Glucose 216 H 11/29/22 17:00: POC Glucose 185 H 11/29/22 19:18: APTT 81.8 H 11/29/22 21:11: POC Glucose 175 H 11/30/22 02:22: APTT 30.9, Sodium 139, Potassium 3.9, Chloride 110 H, Carbon Dioxide 24.0, Anion Gap 5, BUN 63 H, Creatinine 3.24 H, Estim Creat Clear Calc 16.50, Est GFR (MDRD) Af Amer 24 L, Est GFR (MDRD) Non-Af 20 L, BUN/Creatinine Ratio 19.4, Glucose 74, Calcium 7.6 L Micro: Microbiology 11/29/22 08:50 Mucosa - Nasopharyngeal Respiratory Panel (PCR) - Final 11/29/22 10:40 Urine, Random Legionella Antigen - Final 11/29/22 10:40 Urine, Random Streptococcus pneumoniae Antigen (M - Final 11/28/22 00:06 Nasal Secretion SARS-CoV-2 Antigen (Rapid) - Final Radiography Diagnostic Testing: Radiology Impression Echocardiogram 11/29/22 05:04 Interpretation Summary The estimated ejection fraction is 40-45 %. Aortic valve area calculated 0.98 cm?? Aortic maximal pressure gradient 33.1 millimeters mercury Aortic mean pressure gradient of 19.8 millimeters mercury Moderate to severe aortic valve stenosis/calcific With a low ejection fraction 40-45% Grade 1 diastolic dysfunction Recommendation: Dobutamine stress echocardiogram to assess severity of aortic valve stenosis. No prior echo to compare. Ordering Physician: Mushtaq Schmidt Performed By: Sherwin Drake RCS Physical Exam Const alert and no apparent distress General Appearance: Negative for ill appearing HEENT normocephalic and head/scalp atraumatic Eyes PERRL, EOMs intact bilaterally and conjunctivae normal Neck supple General: trachea midline Resp normal respiratory effort Resp Narrative: Fair effort Auscultation: diminished lung sounds; Negative for rales, rhonchi or wheezes Cardio regular rate, regular rhythm, S1 normal heart sound, S2 normal heart sound, no rub and no gallops Heart Sounds: murmur systolic III/ harsh early left sternal border to the neck GI normal to inspection, nondistended, normoactive bowel sounds Extremity no clubbing, cyanosis or edema Skin no rashes or lesions noted Neuro moves all extremities and no focal motor deficits Psych Mood & Affect: flat affect Charges/Coding Visit Charges Inpatient E&M: 38399 Subs Hosp L3
--- NOTE | 2022-11-30 07:24 | PCM.PN.HOSP ---
Reason for Visit Reason for Visit: Diagnoses Sepsis, unspecified organism (11/28/22) Type 1 diabetes mellitus with ketoacidosis without coma (11/28/22) Hyperkalemia (11/28/22) Non-ST elevation (NSTEMI) myocardial infarction (11/28/22) Pneumonia, unspecified organism (11/28/22) Acute respiratory failure with hypoxia (11/28/22) Acute kidney failure, unspecified (11/28/22) Chronic kidney disease, stage 4 (severe) (11/28/22) Severe sepsis without septic shock (11/28/22) Other specified abnormalities of plasma proteins (11/28/22) Objective Data Objective Data Vital Signs: Vital Signs Temp Pulse Resp BP Pulse Ox O2 Del Method O2 Flow Rate 98.6 F 96 19 H 145/76 H 90 Nasal Cannula 4 11/30/22 04:00 11/30/22 04:00 11/30/22 04:00 11/30/22 04:00 11/30/22 06:30 11/30/22 06:30 11/30/22 06:30 FiO2 35 11/29/22 10:00 Oxygen Flow Rate (L/min) 4 Oxygen Delivery Method Nasal Cannula Weight: 146 lb 2.664 oz Body Mass Index (BMI) 22.1 Intake & Output: Intake and Output for Last 24 Hours 11/28/22 11/29/22 11/30/22 23:59 23:59 23:59 Intake Total 4823.21 / 5063.21 267.13 / 267.13 Output Total 1150 / 1525 900 / 900 Balance 3673.21 / 3538.21 -632.87 / -632.87 Lab / Micro Data 11/29/22 03:25 11/30/22 02:22 Labs: Laboratory Results - last 24 hr 11/29/22 07:01: Glucose 717 H*, Troponin I High Sens 7184 H* 11/29/22 08:00: Sodium 136, Potassium 4.5, Chloride 104, Carbon Dioxide 22.0, Anion Gap 10, BUN 65 H, Creatinine 3.78 H, Estim Creat Clear Calc 14.14, Est GFR (MDRD) Af Amer 20 L, Est GFR (MDRD) Non-Af 17 L, BUN/Creatinine Ratio 17.2, Glucose 635 H*, Calcium 7.5 L 11/29/22 08:06: Lactic Acid 3.7 H* 11/29/22 09:01: POC Glucose 477 H* 11/29/22 09:50: MRSA (PCR) Negative 11/29/22 10:02: POC Glucose 483 H* 11/29/22 11:03: POC Glucose 424 H 11/29/22 11:15: APTT > 200.0 H*, Troponin I High Sens 6516 H* 11/29/22 12:00: POC Glucose 404 H 11/29/22 12:45: Sodium 138, Potassium 4.1, Chloride 107, Carbon Dioxide 23.0, Anion Gap 8, BUN 62 H, Creatinine 3.51 H, Estim Creat Clear Calc 15.23, Est GFR (MDRD) Af Amer 22 L, Est GFR (MDRD) Non-Af 18 L, BUN/Creatinine Ratio 17.7, Glucose 366 H, Calcium 8.0 L 11/29/22 14:22: POC Glucose 274 H 11/29/22 15:05: POC Glucose 221 H 11/29/22 15:55: Sodium 141, Potassium 4.0, Chloride 109 H, Carbon Dioxide 24.0, Anion Gap 8, BUN 59 H, Creatinine 3.37 H, Estim Creat Clear Calc 15.86, Est GFR (MDRD) Af Amer 23 L, Est GFR (MDRD) Non-Af 19 L, BUN/Creatinine Ratio 17.5, Glucose 243 H, Calcium 7.9 L, POC Glucose 216 H 11/29/22 17:00: POC Glucose 185 H 11/29/22 19:18: APTT 81.8 H 11/29/22 21:11: POC Glucose 175 H 11/30/22 02:22: APTT 30.9, Sodium 139, Potassium 3.9, Chloride 110 H, Carbon Dioxide 24.0, Anion Gap 5, BUN 63 H, Creatinine 3.24 H, Estim Creat Clear Calc 16.50, Est GFR (MDRD) Af Amer 24 L, Est GFR (MDRD) Non-Af 20 L, BUN/Creatinine Ratio 19.4, Glucose 74, Calcium 7.6 L Micro: Microbiology 11/29/22 08:50 Mucosa - Nasopharyngeal Respiratory Panel (PCR) - Final 11/29/22 10:40 Urine, Random Legionella Antigen - Final 11/29/22 10:40 Urine, Random Streptococcus pneumoniae Antigen (M - Final 11/28/22 00:06 Nasal Secretion SARS-CoV-2 Antigen (Rapid) - Final Radiography Diagnostic Testing: Radiology Impression Echocardiogram 11/29/22 05:04 Interpretation Summary The estimated ejection fraction is 40-45 %. Aortic valve area calculated 0.98 cm?? Aortic maximal pressure gradient 33.1 millimeters mercury Aortic mean pressure gradient of 19.8 millimeters mercury Moderate to severe aortic valve stenosis/calcific With a low ejection fraction 40-45% Grade 1 diastolic dysfunction Recommendation: Dobutamine stress echocardiogram to assess severity of aortic valve stenosis. No prior echo to compare. Ordering Physician: Mushtaq Schmidt Performed By: Sherwin Drake RCS Physical Exam Narrative History control the patient. Patient denies prior cough, URI symptoms/sore throat at home. Physical exam: General: Alert, Oriented x3, Cooperative HEENT: Atraumatic, PERRLA, EOMI, Normocephalic Oral: No Gingival or Mucosal Lesions/ Ulcerations Neck: Supple, No JVD, Negative Carotid Bruits Lungs: Air entry diminished in right lung base. Mild tachypnea on 5 L of oxygen. Patient was on 10 L of high flow oxygen and BiPAP last night. Cardiovascular: Regular rate, Regular Rhythm, Normal S1, Normal S2, ejection systolic murmur grade 4/6 over right second ICS and cardiac apex with radiation to carotids Abdomen: Bowel Sounds Present, Soft, Non Tender, Non-Distended : No renal angle tenderness. No suprapubic tenderness. Extremities: No edema, Capillary Refill Less than 3 Seconds Skin: No rashes, No breakdown Musculoskeletal: No Tenderness to Palpation of Joints or Extremities. Muscle strength 4+/5 at major joints. Neurological: Cranial nerves II-XII grossly intact, DTR 2+/4. No acute focal neurological deficit. Psych/Mental Status: Normal Affect, Appropriate. Assessment & Plan Assessment/Plan (1) Severe sepsis: (2) Pneumonia: QUALIFIERS: Laterality: right Lung location: unspecified part of lung Pneumonia type: due to unspecified organism Qualified Code(s): J18.9 - Pneumonia, unspecified organism (3) Elevated troponin: (4) Hyperkalemia: PLAN: Plan This is a 77-year-old gentleman with multiple comorbidities came to ED for shortness of breath that stopped him 3 times from walking that started in the afternoon on 11/28/2022 along with the nonacute onset of headache. He also has greenish productive cough, chills but denied fever. Patient chronically has been excessively drinking and urinating. 1. Acute hypoxic and hypercarbic respiratory failure, most likely acute on chronic combined heart failure and right lower lobe pneumonia: Patient is admitted in ICU on BiPAP. Initially patient on high flow oxygen and saturation was in 80s. ABG 7.21/45/59 60% FiO2 BiPAP. On bronchodilator. Pneumonia work-up including sputum culture and blood culture x2. There is possibility of acute diastolic dysfunction as x-ray was suspicious for flash pulmonary blood therefore 2D echo ordered. Previous echo showed diastolic dysfunction. 11/30: Patient was on BiPAP and then 10 L of high flow oxygen last night currently on 4 L. Intermittently tachypneic. 2. Possibility of pneumonia: The patient had suspicion of sepsis with clinical indicators of tachypnea, tachycardia, hypoxia due to most likely right lower lobe pneumonia or fluid overload/pulmonary congestion. Patient has acute organ dysfunctions of acute hypoxic respiratory failure requiring BiPAP in the ED and ENMANUEL on CKD stage IV with creatinine 4.2 above baseline 3.0. But there is confounding factor as patient might have acute respiratory failure from acute diastolic heart failure and ENMANUEL from DKA. Therefore continue IV antibiotics. Infectious work-up for pneumonia ordered. 11/30: Urinary antigens and respiratory panel are negative. Rapid SARS-CoV-2 antigen negative. Blood cultures x2 pending.. Sputum culture pending. Continue empiric IV antibiotic. Sepsis ruled out. 3. DKA: Patient blood glucose very high. It was about 1000. Elevated anion gap and low bicarb and ABG suggestive of increased anion gap metabolic acidosis. 11/30: Yesterday, as per DKA protocol, anion gap closed x2 therefore insulin drip was discontinued after overlap of 4 hours of Lantus. Blood sugar fluctuates. Urine BMP morning glucose was 74 but last Accu-Chek 152 mg/dL. Continue Lantus 15 units in the morning and scheduled Humalog insulin with holding parameters. 4. ENMANUEL on CKD stage IV with ENMANUEL probably due to the patient presented with sepsis and DKA Creatinine was 4.2 on presentation. Baseline about 3.0. IVF ordered. Hold Lasix and lisinopril. Monitor kidney function, electrolytes and intake and output 5. Elevated troponin with possibility of non-STEMI: Serial troponins monitored. 2 troponins was around 300 with no significant delta change but third 1 very high 3309 and 7184. On IV heparin drip. 2D echo is ordered. Exact etiology unclear. Reality of non-STEMI with very high troponin but may be due to acute hypoxic respiratory failure DKA and metabolic increased cardiac demand. Aspirin continued. Twelve-lead EKG shows sinus tachycardia. 2D echo is ordered. Pouncer Machine is consulted 6. Hyperkalemia Likely secondary to elevated blood glucose/DKA. IV fluids and insulin ordered. 7. 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 But with patient in DKA patient needs IV fluid. Last echo in October 2020 shows EF 75% with normal LV systolic function, LA mildly enlarged and evidence of diastolic dysfunction. 11/30: 2D echo shows size of AV valve area 0.98 range of severe but mean AV gradient 19.8 therefore disparity in severity of aortic stenosis. Recommended dobutamine stress echo because of disparity in echo.. EF decreased to 40 to 45%. Plan for cardiac cath after stabilization of respiratory distress/probably on 12/01. Home blood pressure medication continued. Lisinopril and Lasix held. As needed hydralazine ordered. Trend blood pressure and adjust blood pressure medications. DVT Prophylaxis Subcutaneous heparin ordered. Total time of the visit including total time spent in counseling or coordination of care, (more than 50% of the total time, spent in obtaining medical information from nurses and other ancillary care providers,explaining to the patient about labs, imaging, diagnosis and management of active complex medical conditions), multiple acute medical issues requiring ICU, discussion with consultants review of labs and imaging is 50 minutes. The estimated ejection fraction is 40-45 %. Aortic valve area calculated 0.98 cm?? Aortic maximal pressure gradient 33.1 millimeters mercury Aortic mean pressure gradient of 19.8 millimeters mercury Moderate to severe aortic valve stenosis/calcific With a low ejection fraction 40-45% Grade 1 diastolic dysfunction Recommendation: Dobutamine stress echocardiogram to assess severity of aortic valve stenosis. No prior echo to compare. Charges/Coding Visit Charges Inpatient E&M: 21170 [facility] Hosp L3
--- NOTE | 2022-11-30 07:37 | RAD_ITS ---
HISTORY: SOB. Pneumonia. TECHNIQUE: XR Chest 1 View. COMPARISON: Prior day. FINDINGS: LINES/TUBES: None. CARDIOMEDIASTINAL BORDERS: Stable. LUNGS: Mild decreased perihilar and bibasilar opacities. PLEURA: No pleural effusion or pneumothorax. RAD/Chest 1 View (Portable) IMPRESSION: Mildly decreased bilateral pneumonia. Electronically Signed: Tahmina Cross MD at 8:54 EDT ,
--- NOTE | 2022-11-30 07:44 | CPS ---
PT INCREASED TO 5 LPM. SATURATION 91% ON 5 LPM.
[2022-11-30] MEDS: Ferrous Sulfate 325 MG Tablet PO (08:02)
[2022-11-30] MEDS: Aspirin E.C. 81 MG Tablet PO (08:02)
[2022-11-30] MEDS: Folic Acid 1 MG Tablet 0.5 MG PO ×2 (08:03→17:07)
[2022-11-30] MEDS: Multivitamins,Therapeutic Tablet 1 TABLET PO (08:06)
[2022-11-30] MEDS: Calcium Carbonate 500 MG Tablet PO (08:06)
[2022-11-30] MEDS: Gabapentin 100 MG Capsule 200 MG PO ×3 (08:11→17:09)
[2022-11-30 08:26] LABS: Bedside Glucose 152 mg/dL (74-106)
[2022-11-30] MEDS: Insulin Lispro 100 UNIT/ML INSULN.PEN SC (08:33)
[2022-11-30] MEDS: Insulin Lispro 100 UNIT/ML INSULN.PEN 10 UNIT SC ×3 (08:34→17:06)
[2022-11-30] MEDS: Labetalol (Prefilled) 20 MG/4 ML IV (08:35)
[2022-11-30 09:19] LABS: Partial Thromboplast Time 44.8 Seconds (24.1-36.2)
[2022-11-30 09:21] LABS: Hemoglobin A1c 9.2 % (3.8-5.6)
[2022-11-30] MEDS: Docusate Sodium 100 MG Capsule 200 MG PO ×2 (10:26→21:31)
[2022-11-30] MEDS: Multivitamin (Healthy Eyes) Capsule 1 CAP PO (10:26)
[2022-11-30] MEDS: Insulin Glargine-YFGN 100 UNIT/ML Pen 15 UNIT SC (10:27)
[2022-11-30] MEDS: Magnesium Chloride 64 MG Delay Rel.Tablet 128 MG PO (10:28)
[2022-11-30] MEDS: amLODIPine 10 MG Tablet PO (10:29)
[2022-11-30] MEDS: Finasteride 5 MG Tablet PO (10:29)
[2022-11-30] MEDS: Cholecalciferol (Vit D3) 125 MCG CAPSULE (5,000 UNITS) PO (10:30)
--- NOTE | 2022-11-30 10:50 | PCM.CONS.R ---
Assessment & Plan Assessment/Plan (1) Acute kidney injury: PLAN: Renal function is improving, he makes urine, electrolytes are fine, no significant acidosis. Patient does not need dialysis today (2) 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 1 diabetes mellitus: PLAN: Patient has advanced CKD with underlying GFR of 20, and previously refused have an access for dialysis placed, after long conversation with patient today and his family including his daughters, patient agreed to proceed with the permanent access placement. Certainly we do not have enough time today or tomorrow for AV fistula placement, thus temporary or tunneled hemodialysis catheter will be placed she will he developed contrast-induced nephropathy. HPI Consult Data Date of Consult: 11/30/22 HPI Narrative Reason for Consultation: Advanced CKD, patient in need of cardiac catheterization HPI Narrative: DEX VALLE, is a 77 M who presents to emergency room with a chief complaint of shortness of breath. He is got known advanced CKD and a week ago has been seen by Dr. Townsend and the issue of dialysis has been discussed. Unfortunately patient decided against fistula placement and dialysis in the future. Has been seen here by cardiology and there is a possibility he has significant coronary artery disease, cardiac catheterization is scheduled for tomorrow. Patient creatinine on admission was over 4, came down to 3.27 today. He continues to make urine, electrolytes are fine. He is currently being treated for pneumonia. He is hemodynamically stable. He is on nasal cannula oxygen. FORMERLY [facility], 1928–1983 Medical History Alcohol use Anemia Aortic root dilatation Arthritis Atherosclerotic heart disease of [place] coronary artery without angina pectoris Back pain Back problem Bone fracture Bronchitis Cataracts, bilateral Chronic neck and back pain CKD (chronic kidney disease), stage IV COPD (chronic obstructive pulmonary disease) Diabetic retinopathy associated with type 1 diabetes mellitus Dietary restriction Dyspnea on exertion Essential hypertension Family history of hyperlipidemia Family history of hypertension Former smoker Headache Hearing loss, left Hearing loss, right Hearing problem High cholesterol History of echocardiogram History of pain when walking History of stress test Hyperlipidemia Hypertension Hypertension 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 Kidney stones intermediate frame tender use of drug Mixed hyperlipidemia Nicotine abuse Olecranon bursitis, left elbow Olecranon bursitis, right elbow Osteoarthritis Osteopenia Prostate disease Shortness of breath on exertion Skin mole Sleep apnea Smoker Swelling of right elbow Unintentional weight loss of more than 10 pounds Vision problem Wears dentures Wears glasses Wears hearing aid Wears hearing aid in both ears Home Medications aspirin 81 mg tablet,delayed release (Adult Low Dose Aspirin) 81 mg PO QDAY 06/15/17 [History Last Taken 05/27/21] finasteride 5 mg tablet (Proscar) 5 mg PO QDAY 06/16/17 [History Last Taken Unknown] lisinopril 40 mg tablet 40 mg PO QDAY 06/16/17 [History Last Taken 05/29/21] multivitamin 1 tab PO QDAY 06/16/17 [History Last Taken Unknown] insulin lispro 200 unit/mL (3 mL) subcutaneous pen (Humalog KwikPen U-200 Insulin) See Rx Instructions subcut TID 10/24/21 [History Last Taken Unknown] ferrous sulfate 325 mg (65 mg iron) tablet 325 mg PO DAILY #90 tabs 12/30/21 [Rx Last Taken Unknown] flash glucose scanning reader (BidModoStyle Tani 2 [place]) #2 ea 03/28/22 [Rx Last Taken Unknown] flash glucose sensor (FreeStyle Tani 2 Sensor kit) #2 ea 03/28/22 [Rx Last Taken Unknown] rosuvastatin 20 mg tablet 20 mg PO DAILY 04/24/22 [History Last Taken Unknown] amlodipine 10 mg tablet 10 mg PO DAILY 04/30/22 [History Last Taken Unknown] docusate sodium 100 mg capsule (Colace) 200 mg PO BID 04/30/22 [History Last Taken Unknown] magnesium oxide 400 mg PO DAILY 04/30/22 [History Last Taken Unknown] vitamins A,C,C-ktoj-jmjpch 4,296 mcg-226 mg-90 mg capsule (Vision Formula (vits V-Q-Q-zinc-copper)) 1 cap PO ONCE 04/30/22 [History Last Taken Unknown] bisacodyl 5 mg tablet,delayed release 5 mg PO ONCE 05/05/22 [History Last Taken Unknown] calcium citrate 200 mg (950 mg) tablet 200 mg PO DAILY 05/05/22 [History Last Taken Unknown] cholecalciferol (vitamin D3) 125 mcg (5,000 unit) capsule 125 mcg PO DAILY 05/05/22 [History Last Taken Unknown] cinnamon bark 500 mg capsule (Cinnamon) 1,000 mg PO DAILY 05/05/22 [History Last Taken Unknown] furosemide 40 mg tablet 40 mg PO DAILY 05/05/22 [History Last Taken Unknown] folic acid 400 mcg tablet 500 mcg PO BID 06/27/22 [History Last Taken Unknown] gabapentin 300 mg capsule 300 mg PO TID 06/27/22 [History Last Taken Unknown] insulin glargine 100 unit/mL (3 mL) subcutaneous pen (Lantus Solostar U-100 Insulin) 10 unit subcut DAILY 10/27/22 [History Last Taken Unknown] Allergy/AdvReac Type Severity Reaction Status Date / Time levofloxacin [From Levaquin] Allergy Hives Verified 11/28/22 21:34 Family History Father Diabetes Hypertension Family history of hyperlipidemia Asthma Kidney disease Mother Diabetes Brother Cancer Throat cancer Brother CAD (coronary artery disease) Myocardial infarction, Onset Age: 52 Sister Family history of hyperlipidemia Hypertension Diabetes Unknown Alcoholism Arthritis Depression Diabetes Hypertension Hyperlipidemia Osteoporosis Respiratory disease Pancreatic cancer Other Family history of hypertension Surgical History Fracture of left patella Fracture of left upper extremity History of bilateral inguinal hernia repair (~2007) History of colonoscopy (~2013) History of hemorrhoidectomy (~2000) History of hernia repair (~1991) stent replacement for right sided kidney stome Wrist fracture, bilateral Social History Smoking Status: Current every day smoker tobacco type: cigarettes Tobacco: How many years used: 50 alcohol intake: current alcohol intake frequency: a few times a month substance use type: does not use caffeine: Yes Type: coffee Number of servings: 2 what type of physical activity do you participate in: none seatbelt use: sometimes do you feel safe at home: Yes ROS Eyes Eyes: Denies blindness, blurry vision, change in vision, discongugate gaze, double vision, dry eyes or loss of vision ENT HEENT: Denies dry mouth, epistaxis, hoarseness, loss taste/smell or nasal congestion Cardiovascular Cardiovascular: Reports dyspnea on exertion Respiratory/Chest Respiratory/Chest: Reports dry cough, dyspnea on exertion and wheezing Gastrointestinal Gastrointestinal: Denies abdominal pain, anorexia, diarrhea, dry heaves, hematemesis, hematochezia, melena, nausea, rectal bleeding, vomiting or weight changes Genitourinary Genitourinary: Denies change in urinary stream, difficulty urinating, dribbling, dysuria, flank pain, hematuria, nocturia, oliguria, post void dribbling, urinary frequency, urinary hesitancy, urinary incontinence or urinary urgency Musculoskeletal Musculoskeletal: Denies abnormal gait, arthralgias, joint stiffness, joint swelling, muscle cramps or myalgias Integumentary Integumentary: Denies dry skin, erythema, jaundice, lesions, pruritus, rash or skin ulcer Neurologic Neurologic: Denies abnormal gait, burning sensations, confusion, focal weakness, frequent falls, headache(s), numbness, restless legs, seizures, syncope, tremor(s) or weakness Psychiatric Psychiatric: Denies anxiety, confusion, depression or hallucinations Endocrine Endocrinology: Denies cold intolerance, fatigue, heat intolerance, polydipsia or polyuria Hematologic/Lymphatic Hematologic/Lymphatic: Denies anemia, easy bleeding or easy bruising Physical Exam Const alert, oriented x3, no apparent distress and average body habitus General Appearance: well developed Orientation / Consciousness: oriented to person, oriented to place and oriented to time HEENT normocephalic Head and Scalp: atraumatic External Ear: external ears normal Eyes PERRL Neck no lymphadenopathy Resp no use of accessory muscles Resp Narrative: Diminished breath sounds with scattered crackles Auscultation: crackles right and left Cardio regular rate and no rub GI non-tender Auscultation: normoactive bowel sounds Palpation: soft Skin General Skin Exam: ecchymosis Neuro Sensorium / Orientation: awake and alert Psych cooperative Lab / Micro Data Attestation: I reviewed the patient's lab results. 11/29/22 03:25 11/30/22 02:22 Labs: Laboratory Results - last 24 hr 11/29/22 03:25: Hemoglobin A1c 9.2 H 11/29/22 08:06: Lactic Acid 3.7 H* 11/29/22 09:50: MRSA (PCR) Negative 11/29/22 11:03: POC Glucose 424 H 11/29/22 11:15: APTT > 200.0 H*, Troponin I High Sens 6516 H* 11/29/22 12:00: POC Glucose 404 H 11/29/22 12:45: Sodium 138, Potassium 4.1, Chloride 107, Carbon Dioxide 23.0, Anion Gap 8, BUN 62 H, Creatinine 3.51 H, Estim Creat Clear Calc 15.23, Est GFR (MDRD) Af Amer 22 L, Est GFR (MDRD) Non-Af 18 L, BUN/Creatinine Ratio 17.7, Glucose 366 H, Calcium 8.0 L 11/29/22 14:22: POC Glucose 274 H 11/29/22 15:05: POC Glucose 221 H 11/29/22 15:55: Sodium 141, Potassium 4.0, Chloride 109 H, Carbon Dioxide 24.0, Anion Gap 8, BUN 59 H, Creatinine 3.37 H, Estim Creat Clear Calc 15.86, Est GFR (MDRD) Af Amer 23 L, Est GFR (MDRD) Non-Af 19 L, BUN/Creatinine Ratio 17.5, Glucose 243 H, Calcium 7.9 L, POC Glucose 216 H 11/29/22 17:00: POC Glucose 185 H 11/29/22 19:18: APTT 81.8 H 11/29/22 21:11: POC Glucose 175 H 11/30/22 02:22: APTT 30.9, Sodium 139, Potassium 3.9, Chloride 110 H, Carbon Dioxide 24.0, Anion Gap 5, BUN 63 H, Creatinine 3.24 H, Estim Creat Clear Calc 16.50, Est GFR (MDRD) Af Amer 24 L, Est GFR (MDRD) Non-Af 20 L, BUN/Creatinine Ratio 19.4, Glucose 74, Calcium 7.6 L 11/30/22 07:58: POC Glucose 152 H 11/30/22 09:00: APTT 44.8 H Micro: Microbiology 11/29/22 08:50 Mucosa - Nasopharyngeal Respiratory Panel (PCR) - Final 11/29/22 10:40 Urine, Random Legionella Antigen - Final 11/29/22 10:40 Urine, Random Streptococcus pneumoniae Antigen (M - Final Radiology Impression Echocardiogram 11/29/22 05:04 Interpretation Summary The estimated ejection fraction is 40-45 %. Aortic valve area calculated 0.98 cm?? Aortic maximal pressure gradient 33.1 millimeters mercury Aortic mean pressure gradient of 19.8 millimeters mercury Moderate to severe aortic valve stenosis/calcific With a low ejection fraction 40-45% Grade 1 diastolic dysfunction Recommendation: Dobutamine stress echocardiogram to assess severity of aortic valve stenosis. No prior echo to compare. Ordering Physician: Mushtaq Schmidt Performed By: Sherwin Drake RCS Chest X-Ray 11/30/22 07:37 IMPRESSION: Mildly decreased bilateral pneumonia. Electronically Signed: Tahmina Cross MD at 8:54 EDT ,
[2022-11-30 11:44] LABS: Bedside Glucose 143 mg/dL (74-106)
--- NOTE | 2022-11-30 13:09 | CPS ---
PT DECREASED TO 4 LPM
--- NOTE | 2022-11-30 15:10 | PCM.PN.CARD ---
Subjective Subjective Seen and evaluated today at bedside along with the nursing staff at bedside at time of evaluation Sitting out in a chair Shortness of breath is improving. Does not have any active chest pain. Objective Data Vital Signs: Vital Signs Temp Pulse Resp BP Pulse Ox O2 Del Method O2 Flow Rate 99.5 F H 89 19 H 132/84 H 93 High Flow 4 11/30/22 10:00 11/30/22 12:55 11/30/22 12:55 11/30/22 10:00 11/30/22 12:55 11/30/22 13:47 11/30/22 13:47 FiO2 35 11/29/22 10:00 Oxygen Flow Rate (L/min) 4 Oxygen Delivery Method High Flow Weight: 146 lb 2.664 oz Body Mass Index (BMI) 22.1 Intake & Output: Intake and Output for Last 24 Hours 11/28/22 11/29/22 11/30/22 23:59 23:59 23:59 Intake Total 4823.21 / 5063.21 668.43 / 668.43 Output Total 1150 / 1525 1300 / 1300 Balance 3673.21 / 3538.21 -631.57 / -631.57 Lab / Micro Data 11/29/22 03:25 11/30/22 02:22 Labs: Laboratory Results - last 24 hr 11/29/22 03:25: Hemoglobin A1c 9.2 H 11/29/22 08:06: Lactic Acid 3.7 H* 11/29/22 15:05: POC Glucose 221 H 11/29/22 15:55: Sodium 141, Potassium 4.0, Chloride 109 H, Carbon Dioxide 24.0, Anion Gap 8, BUN 59 H, Creatinine 3.37 H, Estim Creat Clear Calc 15.86, Est GFR (MDRD) Af Amer 23 L, Est GFR (MDRD) Non-Af 19 L, BUN/Creatinine Ratio 17.5, Glucose 243 H, Calcium 7.9 L, POC Glucose 216 H 11/29/22 17:00: POC Glucose 185 H 11/29/22 19:18: APTT 81.8 H 11/29/22 21:11: POC Glucose 175 H 11/30/22 02:22: APTT 30.9, Sodium 139, Potassium 3.9, Chloride 110 H, Carbon Dioxide 24.0, Anion Gap 5, BUN 63 H, Creatinine 3.24 H, Estim Creat Clear Calc 16.50, Est GFR (MDRD) Af Amer 24 L, Est GFR (MDRD) Non-Af 20 L, BUN/Creatinine Ratio 19.4, Glucose 74, Calcium 7.6 L 11/30/22 07:58: POC Glucose 152 H 11/30/22 09:00: APTT 44.8 H 11/30/22 11:25: POC Glucose 143 H Micro: Microbiology 11/29/22 08:50 Mucosa - Nasopharyngeal Respiratory Panel (PCR) - Final 11/29/22 10:40 Urine, Random Legionella Antigen - Final 11/29/22 10:40 Urine, Random Streptococcus pneumoniae Antigen (M - Final Cardiology Labs/Tests 11/29/22 03:25: Hemoglobin A1c 9.2 H 11/29/22 08:06: Lactic Acid 3.7 H* 11/29/22 15:55: Sodium 141, Potassium 4.0, Chloride 109 H, Carbon Dioxide 24.0, Anion Gap 8, BUN 59 H, Creatinine 3.37 H, Est GFR (MDRD) Af Amer 23 L, Est GFR (MDRD) Non-Af 19 L, BUN/Creatinine Ratio 17.5, Glucose 243 H, Calcium 7.9 L 11/29/22 19:18: APTT 81.8 H 11/30/22 02:22: APTT 30.9, Sodium 139, Potassium 3.9, Chloride 110 H, Carbon Dioxide 24.0, Anion Gap 5, BUN 63 H, Creatinine 3.24 H, Est GFR (MDRD) Af Amer 24 L, Est GFR (MDRD) Non-Af 20 L, BUN/Creatinine Ratio 19.4, Glucose 74, Calcium 7.6 L 11/30/22 09:00: APTT 44.8 H Rhythm: EKG: ECHO: Stress Test: Cardiac Cath: PCI: CT Surgery: Holter monitor: EPS: PPM: CXR: Chest CT Scan: Radiography Diagnostic Testing: Radiology Impression Chest X-Ray 11/30/22 07:37 IMPRESSION: Mildly decreased bilateral pneumonia. Electronically Signed: Tahmina Cross MD at 8:54 EDT Reading Location ID and State: [facility] / [place] Tel , Service support , Physical Exam Cardio Cardio Narrative: Cardiac rhythm is normal sinus rhythm Cardiovascular examination S1-S2 is regular Chest examination mild bilateral coarse crackles more prominent on the right mid and lower side. Assessment & Plan Assessment/Plan (1) DKA (diabetic ketoacidoses): QUALIFIERS: Diabetes mellitus type: type 1 Diabetes mellitus complication detail: without coma Qualified Code(s): E10.10 - Type 1 diabetes mellitus with ketoacidosis without coma (2) Acute respiratory failure with hypoxia: (3) Hyperkalemia: (4) Pneumonia: QUALIFIERS: Pneumonia type: due to unspecified organism Laterality: right Lung location: unspecified part of lung Qualified Code(s): J18.9 - Pneumonia, unspecified organism (5) CKD (chronic kidney disease) stage 4, GFR 15-29 ml/min: (6) NSTEMI, initial episode of care: PLAN: 77-year-old patient seen and evaluated today in intensive care unit This patient has multiple medical comorbidities complicated diabetes mellitus He had diabetic polyneuropathy, retinopathy, nephropathy. This admission he had DKA with significant elevated blood glucose more than 900 As well had pneumonia and has been on IV antibiotic and showed improvement in his hypoxia and remains in normal sinus rhythm. He had chronic kidney disease stage IV Uncontrolled diabetes mellitus This admission he had acute respiratory failure with hypoxia With clinical diagnosis of pneumonia. Cardiac consultation requested as he had abnormal cardiac biomarker with elevated high sensitive troponin And subsequent evaluation by echocardiogram showed reduced LV systolic function Ejection fraction in the range of around 40?45 Therefore we consulted nephrology who had been following the patient The primary technical project lead Dr. Townsend recommended AV fistula patient declined however quite hospitalized here at [facility] he agreed to proceed with the temporary dialysis catheter and also agreed to proceed with cardiac catheterization. He currently has been on medical therapy with heparin aspirin statin. Cardiac care plan recommendations; I discussed in detail the need for cardiac catheterization due to the significant elevated troponin and reduced LV systolic function to evaluate for atherosclerotic coronary artery disease Risk and benefit explained and also high risk patient due to stage IV CKD likely diabetic nephropathy and patient risk of worsening renal function and requirement for dialysis. For that reason we will have the temporary dialysis catheter to begin with and then to proceed with cardiac catheterization. Which will be performed by
[2022-11-30 16:36] LABS: Partial Thromboplast Time 44.6 Seconds (24.1-36.2)
[2022-11-30 17:34] LABS: Bedside Glucose 150 mg/dL (74-106)
[2022-11-30] MEDS: Atorvastatin Calcium 40 MG Tablet PO (21:31)
[2022-11-30 21:53] LABS: Bedside Glucose 111 mg/dL (74-106)
[2022-11-30] MEDS: HEPARIN/D5w 25,000 UNITS 25,000 UNITS/250 ML IV.SOLN. 8 UNITS CONT INF (22:43)
[2022-12-01] VITALS (11 sets, daily range): BP systolic 102–118; BP diastolic 41–57; PULSE 88–110; RESP 12–26; TEMP 36.5–37.4; O2SAT 85–99; BMI 22.3
[2022-12-01 00:31] LABS: Partial Thromboplast Time 42.7 Seconds (24.1-36.2)
[2022-12-01 04:35] LABS: Bedside Glucose 147 mg/dL (74-106)
[2022-12-01] MEDS: amLODIPine 10 MG Tablet PO (06:14)
[2022-12-01] MEDS: Aspirin E.C. 81 MG Tablet PO (06:15)
[2022-12-01 06:19] LABS: Absolute Lymphocyte Count 0.15 X10^3/uL (0.83-4.51); Absolute Neutrophil Count 26.7 X10^3/uL (2.0-7.7); Basophil# 0.03 X10^3/uL; Basophil% 0.1 % (0-1); Eosinophil# 0.56 X10^3/uL; Hematocrit 21.7 % (40-54); Hemoglobin 7.2 g/dL (13.0-16.5); Lymphocyte # 0.15 X10^3/ul (0.83-4.51); Lymphocyte % 0.5 % (19-41); Mean Corp Hgb Conc 33.2 g/dL (32-36); Mean Corpuscular Hgb 30.5 pg (27.0-32.0); Mean Corpuscular Volume 91.9 fL (80-94); Mean Platelet Vol. 11.1 fl (6.2-12.0); Monocyte# 0.44 X10^3/uL; Monocyte% 1.5 % (0-10); NRBC Flagged by Analyzer 0 % (0-5); Neutrophil # 26.74 X10^3/uL (2.7-7.7); Neutrophil % 93.5 % (47-70); POSITIVE DIFFERENTIAL YES; POSITIVE MORPHOLOGY YES; Platelet Count 224 K/mm3 (150-450); RBC Distribution Width SD 46.8 fl (35.1-43.9); Red Blood Count 2.36 M/mm3 (4.6-6.2); White Blood Count 28.6 K/mm3 (4.4-11.0)
[2022-12-01 06:24] LABS: Differential Indicated SCAN CRITERIA MET
[2022-12-01 06:30] LABS: Partial Thromboplast Time 45.9 Seconds (24.1-36.2)
[2022-12-01 06:33] LABS: Anion Gap 8 (5-15); BUN 66 mg/dL (7-18); Calcium,Total 7.5 mg/dL (8.5-10.1); Chloride 106 mmol/L (98-107); Creatinine, Serum 3.67 mg/dL (0.70-1.30); EST Glomerular Filtration Rate 17 mL/min (>60); Est Glom Filt Rate - Afr Amer 21 mL/min (>60); Estimated Creatinine Clearance 15.44 ml/min; Glucose 213 mg/dL (74-106); Potassium 4.4 mmol/L (3.5-5.1); Sodium Level 135 mmol/L (136-145)
--- NOTE | 2022-12-01 06:33 | PCM.PN.INT ---
Assessment & Plan Assessment/Plan (1) Acute respiratory failure with hypoxia: PLAN: Plan RECOMMENDATIONS: 1. Wean supplemental oxygen to maintain saturations at or above 90%. 2. Continue to monitor H&H. Transfuse if hemoglobin drops below 7 g/dL. Send type and screen. 3. Start PPI therapy twice daily. 4. Gentle diuresis as tolerated by hemodynamics and renal function. 5. Continue empiric antimicrobials to complete 7 days of therapy. 6. Continue bronchodilator therapy. 7. Additional work-up per cardiology. 8. Encourage incentive spirometer use and mobilize patient as tolerated. IMPRESSIONS: 1. Acute hypoxemic respiratory failure Clinical concern for pulmonary edema in the setting of decompensated heart failure/aortic valve stenosis. IV antimicrobials were also initiated for possible pneumonia. However, cultures have been negative thus far. At this time, would recommend additional medical therapy per cardiology recommendations. Unclear if the patient is going to undergo a cardiac stress test or catheterization. He will require further cardiac optimization, especially in light of his underlying depressed ejection fraction and valvular heart disease. Diuresis could be considered if feasible from a nephrology standpoint. Continue to wean supplemental oxygen to maintain saturations at or above 90%. 2. Acute on chronic kidney disease Creatinine is relatively stable at this time. Nephrology is following to assist with medical management. 3. Troponin elevation/aortic valve stenosis Cardiology is following to assist with medical management. Unclear if cardiac catheterization is going to be performed during inpatient hospitalization. In light of the patient's worsening anemia, recommend discontinuation of heparin drip. 4. Anemia The patient has had worsening anemia over the course of his hospitalization. Plan to send type and screen today. Transfuse if hemoglobin drops below 7 g/dL. Recommend discontinuation of heparin drip. PPI therapy has been initiated. 5. History of hypertension/chronic tobacco dependency/questionable sleep apnea Complicates care, management, recovery and prognosis. Continue supportive care as noted above. This note was generated with [employer] dictation software. It may contain incorrect words, spelling, and punctuation that were not noted in checking the note before signing. Subjective Subjective The patient was seen and examined at the bedside this morning. Events from the last 24 hours have been reviewed. The patient currently has a low-grade fever but remains otherwise hemodynamically stable. The patient is currently maintaining appropriate oxygen saturations on 6 L/min via nasal cannula. He does smoke 2 to 3 cigarettes/day. He does not utilize any inhalers at his baseline. Objective Data Objective Data The patient's most recent lab work, culture data and imaging studies have all been personally reviewed. Surface echocardiogram demonstrated a mildly dilated LV with an ejection fraction of 40 to 45%. Moderate to severe aortic stenosis was noted. Respiratory viral panel was negative. Strep and urine Legionella antigens were negative. Blood cultures are pending. Vital Signs: Vital Signs Temp Pulse Resp BP Pulse Ox O2 Del Method O2 Flow Rate 99.4 F H 95 18 116/72 99 Room Air 10 11/30/22 16:00 12/01/22 00:06 12/01/22 00:06 11/30/22 16:00 12/01/22 00:06 12/01/22 04:00 12/01/22 01:30 FiO2 35 12/01/22 00:06 Oxygen Flow Rate (L/min) 10 Oxygen Delivery Method Room Air Weight: 147 lb 7.828 oz Body Mass Index (BMI) 22.3 Intake & Output: Intake and Output for Last 24 Hours 11/29/22 11/30/22 12/01/22 23:59 23:59 23:59 Intake Total 4823.21 / 5063.21 1308.46 / 1308.46 14.93 / 14.93 Output Total 1150 / 1525 1300 / 1300 300 / 300 Balance 3673.21 / 3538.21 8.46 / 8.46 -285.07 / -285.07 Lab / Micro Data Attestation: I reviewed the patient's lab results. 12/01/22 06:00 12/01/22 06:05 Labs: Laboratory Results - last 24 hr 11/29/22 03:25: Hemoglobin A1c 9.2 H 11/30/22 07:58: POC Glucose 152 H 11/30/22 09:00: APTT 44.8 H 11/30/22 11:25: POC Glucose 143 H 11/30/22 16:20: APTT 44.6 H 11/30/22 17:04: POC Glucose 150 H 11/30/22 21:30: POC Glucose 111 H 11/30/22 23:55: APTT 42.7 H 12/01/22 02:56: POC Glucose 147 H 12/01/22 06:00: WBC 28.6 H, RBC 2.36 L, Hgb 7.2 L, Hct 21.7 L, MCV 91.9 D, MCH 30.5, MCHC 33.2 D, RDW Std Deviation 46.8 H, RDW Coeff of [place] 14.0, Plt Count 224, MPV 11.1, Immature Gran % (Auto) 2.400 H, Neut % (Auto) 93.5 H, Lymph % (Auto) 0.5 L, [place] % (Auto) 1.5, Eos % (Auto) 2.0, Baso % (Auto) 0.1, Absolute Neuts (auto) 26.7 H, Absolute Lymphs (auto) 0.15 L, Nucleated RBC % 0 12/01/22 06:05: APTT 45.9 H, Sodium 135 L, Potassium 4.4, Chloride 106, Carbon Dioxide 21.0, Anion Gap 8, BUN 66 H, Creatinine 3.67 H, Estim Creat Clear Calc 15.44, Est GFR (MDRD) Af Amer 21 L, Est GFR (MDRD) Non-Af 17 L, BUN/Creatinine Ratio 18.0, Glucose 213 H, Calcium 7.5 L Micro: Microbiology 11/29/22 08:50 Mucosa - Nasopharyngeal Respiratory Panel (PCR) - Final 11/29/22 10:40 Urine, Random Legionella Antigen - Final 11/29/22 10:40 Urine, Random Streptococcus pneumoniae Antigen (M - Final 11/28/22 00:06 Nasal Secretion SARS-CoV-2 Antigen (Rapid) - Final Radiography Diagnostic Testing: Radiology Impression Chest X-Ray 11/30/22 07:37 IMPRESSION: Mildly decreased bilateral pneumonia. Electronically Signed: Tahmina Cross MD at 8:54 EDT , Physical Exam Const alert and no apparent distress General Appearance: cooperative HEENT normocephalic and head/scalp atraumatic Eyes PERRL, EOMs intact bilaterally and conjunctivae normal Neck supple General: trachea midline Chest inspection of chest normal Resp normal respiratory effort Auscultation: diminished lung sounds; Negative for rales, rhonchi or wheezes Cardio regular rate and regular rhythm Heart Sounds: murmur systolic GI normal to inspection, nondistended, normoactive bowel sounds Extremity no clubbing, cyanosis or edema Skin no rashes or lesions noted Neuro CN's II-XII intact bilaterally, moves all extremities and no focal motor deficits Psych Mood & Affect: flat affect Charges/Coding Visit Charges Inpatient E&M: 74766 Subs Hosp L3
--- NOTE | 2022-12-01 06:50 | PN.HOSP_ITS ---
Reason for Visit Reason for Visit: Diagnoses Sepsis, unspecified organism (11/28/22) Type 1 diabetes mellitus with ketoacidosis without coma (11/28/22) Type 1 diabetes mellitus with diabetic chronic kidney disease (11/28/22) Hyperkalemia (11/28/22) Non-ST elevation (NSTEMI) myocardial infarction (11/28/22) Pneumonia, unspecified organism (11/28/22) Acute respiratory failure with hypoxia (11/28/22) Acute kidney failure, unspecified (11/28/22) Chronic kidney disease, stage 4 (severe) (11/28/22) Severe sepsis without septic shock (11/28/22) Other specified abnormalities of plasma proteins (11/28/22) Subjective Subjective Patient with no acute events overnight per self and per nursing report. He noes feeling less dyspnea since initial ED arrival. He is up at the bedside talking with his family and much more interactive. Patient currently maintained on 4 L nasal cannula. Patient with low grade temperatures overnight. Patient denies fevers, chills, nausea, emesis, abdominal pain, chest pain. Objective Data Objective Data Vital Signs: Vital Signs Temp Pulse Resp BP Pulse Ox O2 Del Method O2 Flow Rate 99.4 F H 93 19 H 118/55 L 90 Nasal Cannula 10 12/01/22 06:00 12/01/22 06:00 12/01/22 06:00 12/01/22 06:00 12/01/22 06:00 12/01/22 06:00 12/01/22 01:30 FiO2 35 12/01/22 00:06 Oxygen Flow Rate (L/min) 10 Oxygen Delivery Method Nasal Cannula Weight: 147 lb 7.828 oz Body Mass Index (BMI) 22.3 Intake & Output: Intake and Output for Last 24 Hours 11/29/22 11/30/22 12/01/22 23:59 23:59 23:59 Intake Total 4823.21 / 5063.21 1308.46 / 1308.46 68.78 / 68.78 Output Total 1150 / 1525 1300 / 1300 300 / 300 Balance 3673.21 / 3538.21 8.46 / 8.46 -231.22 / -231.22 Lab / Micro Data 12/01/22 06:00 12/01/22 06:05 Labs: Laboratory Results - last 24 hr 11/29/22 03:25: Hemoglobin A1c 9.2 H 11/30/22 07:58: POC Glucose 152 H 11/30/22 09:00: APTT 44.8 H 11/30/22 11:25: POC Glucose 143 H 11/30/22 16:20: APTT 44.6 H 11/30/22 17:04: POC Glucose 150 H 11/30/22 21:30: POC Glucose 111 H 11/30/22 23:55: APTT 42.7 H 12/01/22 02:56: POC Glucose 147 H 12/01/22 06:00: WBC 28.6 H, RBC 2.36 L, Hgb 7.2 L, Hct 21.7 L, MCV 91.9 D, MCH 30.5, MCHC 33.2 D, RDW Std Deviation 46.8 H, RDW Coeff of Russell 14.0, Plt Count 224, MPV 11.1, Immature Gran % (Auto) 2.400 H, Neut % (Auto) 93.5 H, Lymph % (Auto) 0.5 L, [place] % (Auto) 1.5, Eos % (Auto) 2.0, Baso % (Auto) 0.1, Absolute Neuts (auto) 26.7 H, Absolute Lymphs (auto) 0.15 L, Nucleated RBC % 0 12/01/22 06:05: APTT 45.9 H, Sodium 135 L, Potassium 4.4, Chloride 106, Carbon Dioxide 21.0, Anion Gap 8, BUN 66 H, Creatinine 3.67 H, Estim Creat Clear Calc 15.44, Est GFR (MDRD) Af Amer 21 L, Est GFR (MDRD) Non-Af 17 L, BUN/Creatinine Ratio 18.0, Glucose 213 H, Calcium 7.5 L Micro: Microbiology 11/29/22 08:50 Mucosa - Nasopharyngeal Respiratory Panel (PCR) - Final 11/29/22 10:40 Urine, Random Legionella Antigen - Final 11/29/22 10:40 Urine, Random Streptococcus pneumoniae Antigen (M - Final 11/28/22 00:06 Nasal Secretion SARS-CoV-2 Antigen (Rapid) - Final Radiography Diagnostic Testing: Radiology Impression Chest X-Ray 11/30/22 07:37 IMPRESSION: Mildly decreased bilateral pneumonia. Electronically Signed: Tahmina Cross MD at 8:54 EDT , Physical Exam Narrative Physical Examination: General: Awake, alert, oriented x 3 and cooperative, seated upright in the ICU bedside chair, fatigued appearing but no acute distress. Skin: Normal color, normal turgor, no icterus, no cyanosis except occasional very staged ecchymoses to the extremities. HEENT: AT/NC, EOMI, PERRLA, MMM. Lungs: Diminished, greater bases, moderate effort, no rales, ronchi or wheezing. Heart: Currently regular rate and rhythm; no gallop, rub audible, + SM. Abdomen: Soft, NTTP, ND, hyperactive BS. Extremities: No cyanosis, clubbing, or edema. Neurological: Patient awake, alert, oriented as noted, cognitive function intact; pupils equally reactive to light and accommodation, cranial nerves II- XII grossly normal, moving all 4 extremities, no focal deficits, strength moderately to severely global decrease secondary to acute presentation. Psychiatric: Affect appears fatigued otherwise normal, no acute evidence of depressive or anxiety feelings. Assessment & Plan Assessment/Plan (1) Acute respiratory failure with hypoxia: PLAN: Plan The patient is a 77 y/o M w/ PMHx: Chronic anemia/Fe deficiency anemia, BPH, Prostate CA, HTN, HLD, NIKHIL, COPD, Former tobacco use, Diabetes mellitus type II, CKD stage IV who presents to the [facility] ED on 12/01/22 with history of dyspnea, worse with exertion with productive green sputum as well as chills in addition to polyuria and polydipsia prompting eventual ED evaluation. #1. Acute Hypoxic and Hypercarbic Respiratory Failure, multifactorial, secondary to Acute Combined Acute Systolic/Diastolic CHF Exacerbation complicated by underlying valvular heart disease/aortic stenosis and Concurrent Possible Acute RLL Pneumonia complicated by underlying COPD history: Patient initially mid to the ICU on BiPAP, transition to high flow, 11/30/2022 chest x- ray with mildly decreased bilateral pneumonia evidence,, O w/ EF 4045%, SANDEEP calculated 0.98 cm?, aortic maximal pressure gradient 33.1 mmHg, aortic mean pressure gradient 19.8 mmHg, moderate to severe AV stenosis/calcific, grade 1 diastolic dysfunction with recommendation for belt knife feeder for dobutamine stress echo to assess severity of AV stenosis with no prior comparison, rapid SARS COVID and influenza antigen negative, full respiratory panel negative, negative Legionella and strep pneumonia antigens, blood culture x2 pending (11/29/22), maintained on IV Rocephin as well as IV of azithromycin (start 11/29/22) with plan 7 days of antibiotic therapy, ATC DuoNeb therapy, PRN albuterol, continue aspirin, statin, heparin drip, not on beta-francesco nor JOON inhibitor/ARB especially given ENMANUEL, recommendation per pulmonary medicine was to hold off on usage of steroids as this could exacerbate patient diabetes especially given presentation. Recommendation for diuretic challenge now that DKA has resolved this patient did require initial IV fluid administration. 12/01/22 with notable WBC elevation compared to prior, will obtain repeat CXR in AM, although clinically patient feels improved. #2. Acute NSTEMI: Presentation EKG with sinus rhythm with no acute evidence of ischemia, initial troponin 11/28/2022 301 trending upward with last 11/30/2019 21629, 11/29/2022 ECHO w/ EF 4045%, SANDEEP calculated 0.98 cm?, aortic maximal pressure gradient 33.1 mmHg, aortic mean pressure gradient 19.8 mmHg, moderate to severe AV stenosis/calcific, grade 1 diastolic dysfunction with recommendation for belt knife feeder for dobutamine stress echo to assess severity of AV stenosis with no prior comparison, maintained on heparin drip, continue aspirin, statin, not on beta-francesco therapy nor JOON inhibitor/ARB with acute kidney injury presentation concurrently as noted. Temporary dialysis catheter placement as noted with planned cardiac catheterization. Cardiology consulted, following. #3. DKA: Hemoglobin A1c 11/29/2022 9.2% increased from most recently noted remotely 01/04/2018 8.5%, patient initially maintained on DKA protocol with eventual anion gap closure x2 and normalization of bicarb with insulin drip transitioned to Lantus with concurrent insulin sliding scale with Accu-Chek, will continue ADA diet with overlapping insulin sliding scale and scheduled, encourage appropriate lifestyle and diet changes, nutrition consulted. #4. Acute kidney injury on CKD stage IV: Secondary to DKA presentation. Admission BUN/Cr 66/4.20, prior baseline creatinine noted to be primarily 3.0- 3.3, 12/01/22 BUN/Cr 66/3.67. Nephrology consulted, Dr. Townsend and AVF recommended in preparation for future HD however patient has declined but agreed to temporarily HD catheter. #5. Hypertensive Urgency: Initial presentation blood pressures 190s over 70s to 100s, suspected to have contributed to acute presentation #1, currently maintained only on amlodipine, not on beta-francesco therapy nor JOON inhibitor/ARB however ENMANUEL presentation as noted, will defer regimen choices especially given NSTEMI to cardiology discretion. #6. Acute hyponatremia, multifactorial given #1 potentially initially hypovolemic however eventually following hydration suspected of enteral volume overload: Admission sodium 124, as noted judiciously hydrated given DKA however now concern for possibly fluid overload with possible initiation of diuretic challenge per pulmonary recommendation, 12/01/2022 sodium 135, will continue to trend. #7. Acute on Chronic normocytic/iron deficiency anemia: Admission hemoglobin 9.8, baseline prior to this primarily 8-9, repeat today 12/01/2022 7.2, currently on a heparin drip give an NSTEMI, will continue to closely trend hemoglobin and if drops further low threshold to initiate iron panel as well as guaiac assessment, type and screen initiated per patient service technician pst with plan for PRBC transfusion if decreases below 7. Initiated on twice daily PPI per patient service technician pst. #8. Hyperlipidemia: We will continue patient on statin therapy. #9. Former tobacco use: Encourage continued tobacco cessation. #10. BPH: We will continue patient finasteride home regimen #11. NIKHIL: BiPAP nightly. #12. DVT prophylaxis: Continue heparin drip as noted. #13. CODE STATUS: Discussed CODE status at length including difference between FULL code, DNR-CCA and DNR-CC status. Following discussions about the differences in these status, requested Full Code status which was confirmed also with family present. Advanced Care Planning Face to Face Time: 16 minutes.. Charges/Coding Visit Charges Inpatient E&M: 92247 Subs Hosp L3 Procedures Hospitalists Procedures: 56855 Advncd Care Plan 30 Min
[2022-12-01] MEDS: Ipratropium/Albuterol Sulfate 3 ML AMPUL.NEB INHALATION ×3 (07:16→20:20)
[2022-12-01] MEDS: Insulin Glargine-YFGN 100 UNIT/ML Pen 15 UNIT SC (09:39)
--- NOTE | 2022-12-01 10:39 | CASEMGMT ---
NADEEM VINCENT NOTE: Reviewed therapy notes. Pt amb 24 ft yesterday w/CGA and no use of AD. Additional therapy recommended. RN CM to room. Pt sitting up in chair. and other family members @ bedside. Discussed therapy and d/c planning and homebound requirements for HHC. Pt states is not interested in HHC but would like to go back to [facility] for OP therapy and also states thinks this would be beneficial as well. They were made aware scripts can be provided for this @ d/c. They voice no other d/c planning needs at this time. CM to continue to follow for possible home O2 @ d/c. Chance JUNG RN, CM
[2022-12-01] MEDS: Insulin Lispro 100 UNIT/ML INSULN.PEN 10 UNIT SC ×2 (11:14→16:56)
[2022-12-01] MEDS: Insulin Lispro 100 UNIT/ML INSULN.PEN SC ×3 (11:14→22:28)
[2022-12-01] MEDS: Gabapentin 100 MG Capsule 200 MG PO ×2 (13:17→17:36)
--- NOTE | 2022-12-01 14:56 | PCM.PN.REN ---
Subjective Subjective Patient sitting up in chair. No complaints today. at bedside. No overnight events. States breathing is better. Objective Data Objective Data Vital Signs: Vital Signs Temp Pulse Resp BP Pulse Ox O2 Del Method O2 Flow Rate 97.7 F L 99 18 116/48 L 96 Nasal Cannula 4 12/01/22 08:00 12/01/22 13:30 12/01/22 13:30 12/01/22 08:00 12/01/22 08:00 12/01/22 10:00 12/01/22 10:00 FiO2 92 12/01/22 07:15 Oxygen Flow Rate (L/min) 4 Oxygen Delivery Method Nasal Cannula Weight: 66.9 kg Body Mass Index (BMI) 22.3 Intake & Output: Intake and Output for Last 24 Hours 11/29/22 11/30/22 12/01/22 23:59 23:59 23:59 Intake Total 4823.21 / 5063.21 1308.46 / 1308.46 210.00 / 210.00 Output Total 1150 / 1525 1300 / 1300 300 / 300 Balance 3673.21 / 3538.21 8.46 / 8.46 -90.00 / -90.00 Lab / Micro Data 12/01/22 06:00 12/01/22 06:05 Labs: Laboratory Results - last 24 hr 11/30/22 16:20: APTT 44.6 H 11/30/22 17:04: POC Glucose 150 H 11/30/22 21:30: POC Glucose 111 H 11/30/22 23:55: APTT 42.7 H 12/01/22 02:56: POC Glucose 147 H 12/01/22 06:00: WBC 28.6 H, RBC 2.36 L, Hgb 7.2 L, Hct 21.7 L, MCV 91.9 D, MCH 30.5, MCHC 33.2 D, RDW Std Deviation 46.8 H, RDW Coeff of Russell 14.0, Plt Count 224, MPV 11.1, Immature Gran % (Auto) 2.400 H, Neut % (Auto) 93.5 H, Lymph % (Auto) 0.5 L, [place] % (Auto) 1.5, Eos % (Auto) 2.0, Baso % (Auto) 0.1, Absolute Neuts (auto) 26.7 H, Absolute Lymphs (auto) 0.15 L, Nucleated RBC % 0 12/01/22 06:05: APTT 45.9 H, Sodium 135 L, Potassium 4.4, Chloride 106, Carbon Dioxide 21.0, Anion Gap 8, BUN 66 H, Creatinine 3.67 H, Estim Creat Clear Calc 15.44, Est GFR (MDRD) Af Amer 21 L, Est GFR (MDRD) Non-Af 17 L, BUN/Creatinine Ratio 18.0, Glucose 213 H, Calcium 7.5 L 12/01/22 10:55: Blood Type B POSITIVE, Antibody Screen NEGATIVE Micro: Microbiology 11/29/22 09:55 Blood Culture (Wb) - Anticubital Right Blood Culture - Preliminary No growth in 48 hours. 11/29/22 10:10 Blood Culture (Wb) - Anticubital Left Blood Culture - Preliminary No growth in 48 hours. 11/29/22 08:50 Mucosa - Nasopharyngeal Respiratory Panel (PCR) - Final 11/29/22 10:40 Urine, Random Legionella Antigen - Final 11/29/22 10:40 Urine, Random Streptococcus pneumoniae Antigen (M - Final 11/28/22 00:06 Nasal Secretion SARS-CoV-2 Antigen (Rapid) - Final Physical Exam Narrative Alert and oriented x3, no apparent distress S1, S2, RRR Lung sounds: diminished breath sounds, no rales or rhonchi. On O2 Abdomen soft, nontender, positive bowel sounds 1+ edema bilateral lower legs Assessment & Plan Assessment/Plan (1) Acute kidney injury: PLAN: Renal function is improving, he makes urine, electrolytes are fine, no significant acidosis. Patient does not need dialysis today (2) 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 1 diabetes mellitus: PLAN: - History of CKD stage IV with underlying GFR ~20ml/min. Followed by Dr. Townsend. Patient previously refused to have AV access for dialysis to be placed. There was long conversation with patient yesterday along with family including his daughters and patient now in agreement with SOLUTIONS ARCHITECT when needed. Patient admitted non-STEMI, DKA and hypertensive emergency. SCr 4.20 mg/dL on admission (11/28) and today serum creatinine 3.67 mg/dL, eGFR 17 mL/min. No hyperkalemia or acidemia. Patient is nonoliguric. No acute indication for SOLUTIONS ARCHITECT at this time. We will continue to follow patient during this hospitalization and outpatient basis. Unclear if cardiac catheterization to be preformed during inpatient hospitalization. Discussed with patient and today should he have cardiac catheterization there is a risk of contrast-induced nephropathy given history of CKD stage IV and the possibility of needing renal replacement therapy via hemodialysis catheter. Patient is in agreement with moving forward with hemodialysis if and when needed. Discussed with patient and once patient out of hospital and more stable then we will plan for AV access evaluation/consultation with vascular. -Acute respiratory failure multifactorial from decompensated heart failure, underlying valvular heart disease/aortic stenosis and possible pneumonia along with COPD. Currently on antibiotics and receiving breathing treatments. Good urine output, 1.3 L yesterday. Lisinopril on hold. Home diuretic furosemide 40 mg daily on hold. - NSTEMI; cardiology following. not clear if cardiac catheterization to be performed during inpatient hospitalization. Worsening anemia, off heparin drip. -Labs ordered for a.m.
--- NOTE | 2022-12-01 15:56 | CASEMGMT ---
Social Work SW informed by RN MELISA patient is requesting to redo advanced directives. SW to follow up. SW met with patient and patient's and introduced self and role as [facility] SW. Patient seated in hospital chair and agreeable to speak to SW with his present. SW engaged patient in conversation regarding completion of advanced directives. Patient states he has LW and HCPOA documents completed, however, he wanted to update his living will. Patient states his HCPOA is his and does not need changed. SW started to assist patient with reviewing living will document, however, patient and patient's inquired about code status. SW inquired about code status with patient's RN, RN verified patient is full code. Patient and patient's want patient to remain full code, no changes at this time. No changes to HCPOA and LW, SW encouraged patient or patient's to bring in a copy of AD to be added to patient's chart, patient voiced understanding and has no other needs currently. Gissel Block PRODUCT MANAGER, RANDOLPH
[2022-12-01 17:04] LABS: Bedside Glucose 202 mg/dL (74-106)
[2022-12-01] MEDS: Folic Acid 1 MG Tablet 0.5 MG PO (17:36)
--- NOTE | 2022-12-01 18:23 | PCM.PN.CARD ---
Subjective Subjective Continues to complain of shortness of breath. No chest pain. Objective Data Vital Signs: Vital Signs Temp Pulse Resp BP Pulse Ox O2 Del Method O2 Flow Rate 98.6 F 97 18 114/47 L 98 Nasal Cannula 4 12/01/22 15:00 12/01/22 15:00 12/01/22 15:00 12/01/22 15:00 12/01/22 15:00 12/01/22 16:00 12/01/22 16:00 FiO2 92 12/01/22 07:15 Oxygen Flow Rate (L/min) 4 Oxygen Delivery Method Nasal Cannula Weight: 147 lb 7.828 oz Body Mass Index (BMI) 22.3 Intake & Output: Intake and Output for Last 24 Hours 11/29/22 11/30/22 12/01/22 23:59 23:59 23:59 Intake Total 4823.21 / 5063.21 1308.46 / 1308.46 210.00 / 210.00 Output Total 1150 / 1525 1300 / 1300 755 / 755 Balance 3673.21 / 3538.21 8.46 / 8.46 -545.00 / -545.00 Lab / Micro Data 12/01/22 06:00 12/01/22 06:05 Labs: Laboratory Results - last 24 hr 11/30/22 21:30: POC Glucose 111 H 11/30/22 23:55: APTT 42.7 H 12/01/22 02:56: POC Glucose 147 H 12/01/22 06:00: WBC 28.6 H, RBC 2.36 L, Hgb 7.2 L, Hct 21.7 L, MCV 91.9 D, MCH 30.5, MCHC 33.2 D, RDW Std Deviation 46.8 H, RDW Coeff of Russell 14.0, Plt Count 224, MPV 11.1, Immature Gran % (Auto) 2.400 H, Neut % (Auto) 93.5 H, Lymph % (Auto) 0.5 L, [place] % (Auto) 1.5, Eos % (Auto) 2.0, Baso % (Auto) 0.1, Absolute Neuts (auto) 26.7 H, Absolute Lymphs (auto) 0.15 L, Nucleated RBC % 0 12/01/22 06:02: POC Glucose 202 H 12/01/22 06:05: APTT 45.9 H, Sodium 135 L, Potassium 4.4, Chloride 106, Carbon Dioxide 21.0, Anion Gap 8, BUN 66 H, Creatinine 3.67 H, Estim Creat Clear Calc 15.44, Est GFR (MDRD) Af Amer 21 L, Est GFR (MDRD) Non-Af 17 L, BUN/Creatinine Ratio 18.0, Glucose 213 H, Calcium 7.5 L 12/01/22 10:55: Blood Type B POSITIVE, Antibody Screen NEGATIVE, Crossmatch See Detail Micro: Microbiology 11/29/22 09:55 Blood Culture (Wb) - Anticubital Right Blood Culture - Preliminary No growth in 48 hours. 11/29/22 10:10 Blood Culture (Wb) - Anticubital Left Blood Culture - Preliminary No growth in 48 hours. Cardiology Labs/Tests 11/30/22 23:55: APTT 42.7 H 12/01/22 06:00: WBC 28.6 H, RBC 2.36 L, Hgb 7.2 L, Hct 21.7 L, MCV 91.9 D, MCH 30.5, MCHC 33.2 D, Plt Count 224, MPV 11.1, Immature Gran % (Auto) 2.400 H, Neut % (Auto) 93.5 H, Lymph % (Auto) 0.5 L, [place] % (Auto) 1.5, Eos % (Auto) 2.0, Baso % (Auto) 0.1, Absolute Neuts (auto) 26.7 H, Nucleated RBC % 0 12/01/22 06:05: APTT 45.9 H, Sodium 135 L, Potassium 4.4, Chloride 106, Carbon Dioxide 21.0, Anion Gap 8, BUN 66 H, Creatinine 3.67 H, Est GFR (MDRD) Af Amer 21 L, Est GFR (MDRD) Non-Af 17 L, BUN/Creatinine Ratio 18.0, Glucose 213 H, Calcium 7.5 L Rhythm: EKG: ECHO: Stress Test: Cardiac Cath: PCI: CT Surgery: Holter monitor: EPS: PPM: CXR: Chest CT Scan: Physical Exam Narrative Tachypneic. Heart sounds 1 and 2 noted. 2/6 systolic murmur at apex. Chest examination shows bibasilar dry crackles. 1+ bilateral ankle edema. Assessment & Plan Assessment/Plan (1) NSTEMI, initial episode of care: PLAN: Patient has had non-ST elevation CT in the setting of bilateral pneumonia with hypoxia. Hemodynamically stable at present. No chest pain. I had a detailed discussion with the patient. He was scheduled for coronary angiography however it is noted that his hemoglobin has been steadily dropping and is 7.2 g/dL. Wait for hemoglobin to stabilize. Also discussed the risks of significant contrast induced nephropathy with possible need for hemodialysis after coronary angiography. Patient is not too keen on that. He wishes to discuss further with his . Continue aspirin. Start on Plavix. Monitor hemoglobin. Start low-dose beta-blockers. (2) Dyspnea: PLAN: Secondary to bilateral patchy pneumonia. On antibiotics. (3) Pneumonia: QUALIFIERS: Pneumonia type: due to unspecified organism Laterality: right Lung location: unspecified part of lung Qualified Code(s): J18.9 - Pneumonia, unspecified organism PLAN: On antibiotics. Manage as per internal medicine. (4) CKD (chronic kidney disease) stage 4, GFR 15-29 ml/min: PLAN: Nephrology following. Patient made aware of the risk of contrast-induced nephropathy if you proceed with coronary angiography. He is not too keen on that as noted above. Would like to discuss with his further. (5) Anemia: PLAN: Monitor. Manage as per internal medicine. Consider GI consult. (6) Diabetes: QUALIFIERS: Diabetes mellitus type: type 1 Diabetes mellitus complication status: with hyperglycemia Qualified Code(s): E10.65 - Type 1 diabetes mellitus with hyperglycemia PLAN: As per internal medicine.
[2022-12-01 19:12] LABS: Bedside Glucose 410 mg/dL (74-106)
[2022-12-01 22:28] LABS: Bedside Glucose 433 mg/dL (74-106)
[2022-12-01] MEDS: Atorvastatin Calcium 40 MG Tablet PO (22:28)
[2022-12-01] MEDS: Clopidogrel Bisulfate 75 MG Tablet PO (22:28)
[2022-12-01] MEDS: Metoprolol Tartrate 25 MG Tablet 12.5 MG PO (22:28)
[2022-12-02] VITALS (43 sets, daily range): BP systolic 38–143; BP diastolic 48–82; PULSE 70–102; RESP 12–23; TEMP 36.6–37.2; O2SAT 88–100; BMI 22.2; BMI 21.9
[2022-12-02 04:33] LABS: Absolute Lymphocyte Count 0.13 X10^3/uL (0.83-4.51); Absolute Neutrophil Count 25.2 X10^3/uL (2.0-7.7); Basophil# 0.03 X10^3/uL; Basophil% 0.1 % (0-1); Eosinophil# 0.35 X10^3/uL; Eosinophils% 1.3 % (0-5); Hemoglobin 8.8 g/dL (13.0-16.5); Lymphocyte # 0.13 X10^3/ul (0.83-4.51); Lymphocyte % 0.5 % (19-41); Mean Corp Hgb Conc 32.6 g/dL (32-36); Mean Corpuscular Hgb 29.7 pg (27.0-32.0); Mean Corpuscular Volume 91.2 fL (80-94); Mean Platelet Vol. 11.3 fl (6.2-12.0); Monocyte# 0.48 X10^3/uL; Monocyte% 1.8 % (0-10); NRBC Flagged by Analyzer 0 % (0-5); Neutrophil # 25.19 X10^3/uL (2.7-7.7); Neutrophil % 94.5 % (47-70); POSITIVE DIFFERENTIAL YES; Platelet Count 233 K/mm3 (150-450); RBC Distribution Width CV 14.4 % (11.6-14.6); RBC Distribution Width SD 48.6 fl (35.1-43.9); Red Blood Count 2.96 M/mm3 (4.6-6.2); White Blood Count 26.7 K/mm3 (4.4-11.0)
[2022-12-02 04:34] LABS: Differential Indicated SCAN CRITERIA MET
[2022-12-02 05:16] LABS: ALB/GLOB Ratio 0.6 RATIO (0.9-2.4); AST(SGOT) 200 U/L (15-37); Alanine Aminotransfer ALT/SGPT 142 U/L (16-61); Alkaline Phosphatase 325 U/L (45-117); Anion Gap 11 (5-15); BUN 86 mg/dL (7-18); BUN/Creat Ratio 18.9 RATIO (10-20); Calcium,Total 7.2 mg/dL (8.5-10.1); Chloride 101 mmol/L (98-107); Creatinine, Serum 4.56 mg/dL (0.70-1.30); EST Glomerular Filtration Rate 13 mL/min (>60); Est Glom Filt Rate - Afr Amer 16 mL/min (>60); Estimated Creatinine Clearance 12.43 ml/min; Globulin 3.3 g/dL (2.2-4.2); Glucose 478 mg/dL (74-106); Potassium 5.1 mmol/L (3.5-5.1); Protein, Total 5.3 g/dL (6.4-8.2); Sodium Level 129 mmol/L (136-145)
[2022-12-02] MEDS: Insulin Lispro 100 UNIT/ML INSULN.PEN 10 UNIT SC (05:28)
[2022-12-02] MEDS: Insulin Lispro 100 UNIT/ML INSULN.PEN SC ×2 (05:29→11:36)
[2022-12-02 06:05] LABS: Bedside Glucose 451 mg/dL (74-106)
--- NOTE | 2022-12-02 06:24 | PCM.PN.HOSP ---
Reason for Visit Reason for Visit: Diagnoses Sepsis, unspecified organism (11/28/22) Anemia, unspecified (11/28/22) Type 1 diabetes mellitus with ketoacidosis without coma (11/28/22) Type 1 diabetes mellitus with diabetic chronic kidney disease (11/28/22) Type 1 diabetes mellitus with hyperglycemia (11/28/22) Hyperkalemia (11/28/22) Non-ST elevation (NSTEMI) myocardial infarction (11/28/22) Pneumonia, unspecified organism (11/28/22) Acute respiratory failure with hypoxia (11/28/22) Acute kidney failure, unspecified (11/28/22) Chronic kidney disease, stage 4 (severe) (11/28/22) Dyspnea, unspecified (11/28/22) Severe sepsis without septic shock (11/28/22) Other specified abnormalities of plasma proteins (11/28/22) Subjective Subjective Overnight patient with increased oxygen requirement eventually transitioned to Airvo and then BiPAP with Lasix 40 mg IV x1 initiated earlier in the morning as patient also did have PRBC x1 administered today prior per cardiology preference prior to consideration for cardiac catheterization. Patient unfortunately also with a continued rise of his WBC with left shift and electrolyte alterations as well as worsening renal function and hyperglycemia. Patient also administered increased short acting insulin secondary to hypoglycemia this AM. Patient notes feeling more weak and fatigued with increased dyspnea but no marked increased cough. Discussed his current status with him and his spouse noted intention to transition back to the ICU and also to initiate dialysis as soon as able to obtain access which was discussed with surgery, pulmonary/critical care and nephrology. Patient denies fevers, chills, nausea, emesis, abdominal pain, chest pain. Objective Data Objective Data Vital Signs: Vital Signs Temp Pulse Resp BP Pulse Ox O2 Del Method O2 Flow Rate 98.7 F 80 18 105/60 88 High Flow 13 12/02/22 02:49 12/02/22 02:49 12/02/22 02:49 12/02/22 02:49 12/02/22 04:45 12/02/22 04:45 12/02/22 04:45 FiO2 60 12/02/22 02:49 Oxygen Flow Rate (L/min) 13 Oxygen Delivery Method High Flow Weight: 146 lb 13.246 oz Body Mass Index (BMI) 22.2 Intake & Output: Intake and Output for Last 24 Hours 11/30/22 12/01/22 12/02/22 23:59 23:59 23:59 Intake Total 1308.46 / 1308.46 625.00 / 625.00 400 / 400 Output Total 1300 / 1300 755 / 755 250 / 250 Balance 8.46 / 8.46 -130.00 / -130.00 150 / 150 Lab / Micro Data 12/02/22 04:26 12/02/22 04:26 Labs: Laboratory Results - last 24 hr 12/01/22 06:00: WBC 28.6 H, RBC 2.36 L, Hgb 7.2 L, Hct 21.7 L, MCV 91.9 D, MCH 30.5, MCHC 33.2 D, RDW Std Deviation 46.8 H, RDW Coeff of Russell 14.0, Plt Count 224, MPV 11.1, Immature Gran % (Auto) 2.400 H, Neut % (Auto) 93.5 H, Lymph % (Auto) 0.5 L, [place] % (Auto) 1.5, Eos % (Auto) 2.0, Baso % (Auto) 0.1, Absolute Neuts (auto) 26.7 H, Absolute Lymphs (auto) 0.15 L, Nucleated RBC % 0 12/01/22 06:02: POC Glucose 202 H 12/01/22 06:05: APTT 45.9 H, Sodium 135 L, Potassium 4.4, Chloride 106, Carbon Dioxide 21.0, Anion Gap 8, BUN 66 H, Creatinine 3.67 H, Estim Creat Clear Calc 15.44, Est GFR (MDRD) Af Amer 21 L, Est GFR (MDRD) Non-Af 17 L, BUN/Creatinine Ratio 18.0, Glucose 213 H, Calcium 7.5 L 12/01/22 10:55: Blood Type B POSITIVE, Antibody Screen NEGATIVE, Crossmatch See Detail 12/01/22 18:45: POC Glucose 410 H 12/01/22 19:51: POC Glucose 433 H 12/02/22 04:26: WBC 26.7 H, RBC 2.96 L, Hgb 8.8 L, Hct 27.0 L, MCV 91.2, MCH 29.7, MCHC 32.6, RDW Std Deviation 48.6 H, RDW Coeff of [place] 14.4, Plt Count 233, MPV 11.3, Immature Gran % (Auto) 1.800 H, Neut % (Auto) 94.5 H, Lymph % (Auto) 0.5 L, [place] % (Auto) 1.8, Eos % (Auto) 1.3, Baso % (Auto) 0.1, Absolute Neuts (auto) 25.2 H, Absolute Lymphs (auto) 0.13 L, Nucleated RBC % 0, Sodium 129 L, Potassium 5.1, Chloride 101, Carbon Dioxide 17.0 L, Anion Gap 11, BUN 86 H, Creatinine 4.56 H, Estim Creat Clear Calc 12.43, Est GFR (MDRD) Af Amer 16 L, Est GFR (MDRD) Non-Af 13 L, BUN/Creatinine Ratio 18.9, Glucose 478 H*, Calcium 7.2 L, Total Bilirubin 0.50, AST 200 H, ALT 142 H, Alkaline Phosphatase 325 H, Total Protein 5.3 L, Albumin 2.0 L, Globulin 3.3, Albumin/Globulin Ratio 0.6 L 12/02/22 05:26: POC Glucose 451 H* Micro: Microbiology 11/29/22 09:55 Blood Culture (Wb) - Anticubital Right Blood Culture - Preliminary No growth in 48 hours. 11/29/22 10:10 Blood Culture (Wb) - Anticubital Left Blood Culture - Preliminary No growth in 48 hours. 11/29/22 08:50 Mucosa - Nasopharyngeal Respiratory Panel (PCR) - Final 11/29/22 10:40 Urine, Random Legionella Antigen - Final 11/29/22 10:40 Urine, Random Streptococcus pneumoniae Antigen (M - Final 11/28/22 00:06 Nasal Secretion SARS-CoV-2 Antigen (Rapid) - Final Physical Exam Narrative Physical Examination: General: Awake, alert, oriented x 3 and cooperative, seated upright in the PCU bed, fatigued, BiPAP mask in place, ill-appearing. Skin: Normal color, normal turgor, no icterus, no cyanosis except occasional very staged ecchymoses to the extremities. HEENT: AT/NC, EOMI, PERRLA, dry MM, mask in place. Lungs: More diminished than day prior, currently high flow transitioning to BiPAP, no significant respiratory distress at this time however poor movements, no marked rales, rhonchi or wheezing. Heart: Currently regular rate and rhythm; no gallop, rub audible, + SM. Abdomen: Soft, NTTP, ND, distant normal BS. Extremities: No cyanosis, clubbing, or edema. Neurological: Patient awake, alert, oriented as noted, cognitive function intact; pupils equally reactive to light and accommodation, cranial nerves grossly normal, moving all 4 extremities, no focal deficits, strength worsened, severely global decrease secondary to acute presentation and worsened status overnight. Psychiatric: Affect appears fatigued, ill-appearing, no acute evidence of depressive or anxiety feelings. Assessment & Plan Assessment/Plan (1) Acute respiratory failure with hypoxia: PLAN: Plan The patient is a 77 y/o M w/ PMHx: Chronic anemia/Fe deficiency anemia, BPH, Prostate CA, HTN, HLD, NIKHIL, COPD, Former tobacco use, Diabetes mellitus type II, CKD stage IV who presents to the [facility] ED on 12/01/22 with history of dyspnea, worse with exertion with productive green sputum as well as chills in addition to polyuria and polydipsia prompting eventual ED evaluation. #1. Acute Hypoxic and Hypercarbic Respiratory Failure, multifactorial, secondary to Acute Combined Acute Systolic/Diastolic CHF Exacerbation complicated by underlying valvular heart disease/aortic stenosis and Concurrent Possible Acute RLL Pneumonia complicated by underlying COPD history: Patient initially admitted to the ICU on BiPAP but given improvement transitioned to PCU status, 11/30/2022 chest x-ray with mildly decreased bilateral pneumonia evidence, ECHO w/ EF 4045%, SANDEEP calculated 0.98 cm?, aortic maximal pressure gradient 33.1 mmHg, aortic mean pressure gradient 19.8 mmHg, moderate to severe AV stenosis/calcific, grade 1 diastolic dysfunction with recommendation for boilers inspector for dobutamine stress echo to assess severity of AV stenosis with no prior comparison, rapid SARS COVID and influenza antigen negative, full respiratory panel negative, negative Legionella and strep pneumonia antigens, blood culture x2 pending (11/29/22), initially maintained on IV Rocephin as well as IV of azithromycin (start 11/29/22) with plan 7 days of antibiotic therapy; however, 12/02/22 worsened status overnight and increasing WBC with L shift thus transitioned per discussion with Pulmonary medicine to IV Vanc with pending MRSA screen and IV Zosyn therapy, ATC DuoNeb therapy, PRN albuterol, continue aspirin, statin, heparin drip, not on beta-francesco nor JOON inhibitor/ARB especially given ENMANUEL, recommendation per pulmonary medicine was to hold off on usage of steroids as this could exacerbate patient diabetes especially given presentation. Recommendation for diuretic challenge now that DKA has resolved this patient did require initial IV fluid administration but given worsened overnight into this 12/02/2022 AM with high flow need--> BIPAP lasix 40 mg IV x 1 administered, worsened lab appearance, discussed concerns with nephrology and agreed to initiate HD. Discussed patient status this AM with Pulmonary medicine given worsening status plan transition back to the ICU. Nephrology did discuss case with general surgery with whom case was reviewed with requested access to be placed for dialysis start however given worsening leukocytosis, requested bld cx prior and also obtained plts to have on hold with last plavix dose the evening prior. #2. Acute NSTEMI: Presentation EKG with sinus rhythm with no acute evidence of ischemia, initial troponin 11/28/2022 301 trending upward with last 11/30/2019 [id number], 11/29/2022 ECHO w/ EF 4045%, SANDEEP calculated 0.98 cm?, aortic maximal pressure gradient 33.1 mmHg, aortic mean pressure gradient 19.8 mmHg, moderate to severe AV stenosis/calcific, grade 1 diastolic dysfunction with recommendation for boilers inspector for dobutamine stress echo to assess severity of AV stenosis with no prior comparison, maintained on heparin drip, continue aspirin, statin, not on beta-francesco therapy nor JOON inhibitor/ARB with acute kidney injury presentation concurrently as noted. Temporary dialysis catheter placement as noted with planned cardiac catheterization. Cardiology consulted, following and initially planned catheterization 12/01/22 however concern for low hgb. 12/02/22 discussed case with Cardiology and given his current status they have deferred any consideration catheterization at this time until clinically improved or more likely at a later date. #3. DKA: Hemoglobin A1c 11/29/2022 9.2% increased from most recently noted remotely 01/04/2018 8.5%, patient initially maintained on DKA protocol with eventual anion gap closure x2 and normalization of bicarb with insulin drip transitioned to Lantus with concurrent insulin sliding scale with Accu-Chek, will continue ADA diet with overlapping insulin sliding scale and scheduled, encourage appropriate lifestyle and diet changes, nutrition consulted. 12/02/22 increased BS, decompensated as noted above, administered increased short acting x 1 and will follow. May need to increase long-acting but will monitor. #4. Acute kidney injury on CKD stage IV: Secondary to DKA presentation. Admission BUN/Cr 66/4.20, prior baseline creatinine noted to be primarily 3.0-3.3, 12/01/22 BUN/Cr 66/3.67-->12/02/22 BUN/Cr 86/4.56. Nephrology consulted, Dr. Townsend and AVF recommended in preparation for future HD however patient has declined but agreed to temporarily HD catheter initially but following more discussions amenable to event AVF outpatient. Worsening status 12/02/22, notified Nephrology of concern for need to initiate HD regimen sooner with plans as noted for access to be obtained and HD started. #5. Hypertensive Urgency: Initial presentation blood pressures 190s over 70s to 100s, suspected to have contributed to acute presentation #1, currently maintained only on amlodipine, not on beta-francesco therapy nor JOON inhibitor/ARB however ENMANUEL presentation as noted, will defer regimen choices especially given NSTEMI to cardiology discretion. #6. Acute hyponatremia, multifactorial given #1 potentially initially hypovolemic however eventually following hydration suspected of enteral volume overload: Admission sodium 124, as noted judiciously hydrated given DKA however now concern for possibly fluid overload with possible initiation of diuretic challenge per pulmonary recommendation, 12/01/2022 sodium 135-->12/02/22 Na 129, suspect overloaded, lasix 40 mg x 1 administered this AM, awaiting access for HD as noted. #7. Acute on Chronic normocytic/iron deficiency anemia: Admission hemoglobin 9.8, baseline prior to this primarily 8-9, 12/01/2022 7.2 and given Cardiology concern for proceeding with catheterization with Hgb at that level given presentation 1 u PRBC administered, 12/02/22 CBC w/ Hgb 8.8. #8. Hyperlipidemia: We will continue patient on statin therapy. #9. Former tobacco use: Encourage continued tobacco cessation. #10. BPH: We will continue patient finasteride home regimen #11. NIKHIL: BiPAP normally q HS, as noted given worsening status transitioned to high flow->BIPAP continuous. #12. DVT prophylaxis: Heparin drip discontinued, heparin SC held given planned access placement for HD start, restart 12/03/22 as long as appropriate. #13. CODE STATUS: Full Code. Charges/Coding Visit Charges Inpatient E&M: 71133 Subs Hosp L3
[2022-12-02] MEDS: Furosemide 40 MG/4 ML Vial IV (06:46)
[2022-12-02] MEDS: Insulin Lispro 100 UNIT/ML INSULN.PEN 20 UNIT SC (06:46)
[2022-12-02 07:05] LABS: Bedside Glucose 415 mg/dL (74-106)
--- NOTE | 2022-12-02 07:55 | RAD_ITS ---
INDICATION: dyspnea, leukocytosis EXAMINATION/TECHNIQUE: X-RAY - XR Chest 2 Views COMPARISON: 11/30/2022. FINDINGS: LINES/DEVICES: None. LUNGS: Left lower lung infiltrate increased since the previous examination. Small left pleural effusion. MEDIASTINUM AND CARDIOVASCULAR STRUCTURES: Cardiac silhouette not enlarged. Central airways and mediastinal contour are unremarkable. BONES AND SOFT TISSUES: Unremarkable. RAD/Chest PA and Lateral IMPRESSION: Increased left lower lung infiltrate and small left pleural effusion. Electronically Signed: Lawrence Freed MD at 10:37 EDT ,
[2022-12-02] MEDS: Ipratropium/Albuterol Sulfate 3 ML AMPUL.NEB INHALATION ×2 (08:09→18:47)
[2022-12-02] MEDS: 0.9% Saline Lock 10 ML Syringe IV ×3 (09:36→16:05)
--- NOTE | 2022-12-02 10:07 | PN.CC_ITS ---
Assessment & Plan Assessment/Plan (1) Acute respiratory failure with hypoxia: PLAN: Plan RECOMMENDATIONS: 1. Wean FiO2 to maintain oxygen saturations at or above 90%. 2. Continue to monitor H&H. Transfuse if hemoglobin drops below 7 g/dL. 3. Decision regarding dialysis initiation per nephrology. 4. Agree with broadening of antimicrobials. 5. Hold Plavix for now. 6. Attempt diuresis as tolerated by hemodynamics and renal function. 7. Continue PPI therapy. 8. Continue scheduled bronchodilators. 9. Additional work-up per cardiology. IMPRESSIONS: 1. Acute hypoxemic respiratory failure Clinical concern for pulmonary edema in the setting of decompensated heart failure/aortic valve stenosis, along with superimposed pneumonia. IV antimicrobials were initiated. However, cultures have been negative thus far. At this time, would recommend additional medical therapy per cardiology recommendations. The patient would also likely benefit from volume optimization. Attempts at diuresis will be undertaken. Ultimately, the patient may require dialysis as well. In the interim, continue high flow oxygen and wean FiO2 to maintain saturations at or above 90%. 2. Acute on chronic kidney disease Nephrology is following to assist with medical management. It is highly likely that the patient will require dialysis during this hospitalization. Therefore, I would plan to hold Plavix for now. 3. Troponin elevation/aortic valve stenosis Cardiology is following to assist with medical management. Unclear if cardiac catheterization is going to be performed during inpatient hospitalization. 4. Anemia The patient has had worsening anemia over the course of his hospitalization. Transfuse if hemoglobin drops below 7 g/dL. Continue PPI therapy as ordered. 5. History of hypertension/chronic tobacco dependency/questionable sleep apnea Complicates care, management, recovery and prognosis. Continue supportive care as noted above. This note was generated with [employer] dictation software. It may contain incorrect words, spelling, and punctuation that were not noted in checking the note before signing. Subjective Subjective The patient was seen and examined at the bedside this morning. Events from the last 24 hours have been reviewed. The patient is currently afebrile, hemodynamically stable and maintaining appropriate oxygen saturations on heated high flow with an FiO2 requirement of 76% and flow rate of 50 L/min. The patient is currently documented to be overall net +3.7 L for the hospitalization. Cardiology has put off catheterization due to anemia and elevated white blood cell count. The patient continues to have an elevated white blood cell count of 27,000. Hemoglobin is stable at 8.8 g/dL. Chemistry profile this morning was notable for a bicarbonate of 17 and creatinine of 4.56. Glucose is elevated at 478. Objective Data Objective Data The patient's most recent lab work, culture data and imaging studies have all been personally reviewed. Surface echocardiogram demonstrated a mildly dilated LV with an ejection fraction of 40 to 45%. Moderate to severe aortic stenosis was noted. Respiratory viral panel was negative. Strep and urine Legionella antigens were negative. Blood cultures have not demonstrated any growth to date. Vital Signs: Vital Signs Temp Pulse Resp BP Pulse Ox O2 Del Method O2 Flow Rate 98.9 F 85 18 106/59 L 96 Airvo 50 12/02/22 08:59 12/02/22 08:59 12/02/22 08:59 12/02/22 08:59 12/02/22 08:59 12/02/22 08:59 12/02/22 08:59 FiO2 76 12/02/22 08:59 Oxygen Flow Rate (L/min) 50 Oxygen Delivery Method Airvo Weight: 146 lb 13.246 oz Body Mass Index (BMI) 22.2 Intake & Output: Intake and Output for Last 24 Hours 11/30/22 12/01/22 12/02/22 23:59 23:59 23:59 Intake Total 1308.46 / 1308.46 625.00 / 625.00 400 / 400 Output Total 1300 / 1300 755 / 755 250 / 250 Balance 8.46 / 8.46 -130.00 / -130.00 150 / 150 Lab / Micro Data Attestation: I reviewed the patient's lab results. 12/02/22 04:26 12/02/22 04:26 Labs: Laboratory Results - last 24 hr 12/01/22 06:02: POC Glucose 202 H 12/01/22 10:55: Blood Type B POSITIVE, Antibody Screen NEGATIVE, Crossmatch See Detail 12/01/22 18:45: POC Glucose 410 H 12/01/22 19:51: POC Glucose 433 H 12/02/22 04:26: WBC 26.7 H, RBC 2.96 L, Hgb 8.8 L, Hct 27.0 L, MCV 91.2, MCH 29.7, MCHC 32.6, RDW Std Deviation 48.6 H, RDW Coeff of Russell 14.4, Plt Count 233, MPV 11.3, Immature Gran % (Auto) 1.800 H, Neut % (Auto) 94.5 H, Lymph % (Auto) 0.5 L, [place] % (Auto) 1.8, Eos % (Auto) 1.3, Baso % (Auto) 0.1, Absolute Neuts (auto) 25.2 H, Absolute Lymphs (auto) 0.13 L, Nucleated RBC % 0, Sodium 129 L, Potassium 5.1, Chloride 101, Carbon Dioxide 17.0 L, Anion Gap 11, BUN 86 H, Creatinine 4.56 H, Estim Creat Clear Calc 12.43, Est GFR (MDRD) Af Amer 16 L, Est GFR (MDRD) Non-Af 13 L, BUN/Creatinine Ratio 18.9, Glucose 478 H*, Calcium 7.2 L, Total Bilirubin 0.50, AST 200 H, ALT 142 H, Alkaline Phosphatase 325 H, T otal Protein 5.3 L, Albumin 2.0 L, Globulin 3.3, Albumin/Globulin Ratio 0.6 L 12/02/22 05:26: POC Glucose 451 H* 12/02/22 06:44: POC Glucose 415 H Micro: Microbiology 11/29/22 09:55 Blood Culture (Wb) - Anticubital Right Blood Culture - Preliminary No growth in 48 hours. 11/29/22 10:10 Blood Culture (Wb) - Anticubital Left Blood Culture - Preliminary No growth in 48 hours. 11/29/22 08:50 Mucosa - Nasopharyngeal Respiratory Panel (PCR) - Final 11/29/22 10:40 Urine, Random Legionella Antigen - Final 11/29/22 10:40 Urine, Random Streptococcus pneumoniae Antigen (M - Final 11/28/22 00:06 Nasal Secretion SARS-CoV-2 Antigen (Rapid) - Final Radiography Diagnostic Testing: Radiology Impression Chest X-Ray 11/30/22 07:37 IMPRESSION: Mildly decreased bilateral pneumonia. Electronically Signed: Tahmina Cross MD at 8:54 EDT , Physical Exam Const alert, oriented x3 and no apparent distress Constitutional Narrative: is present at the bedside. General Appearance: cooperative HEENT normocephalic and head/scalp atraumatic Eyes PERRL, EOMs intact bilaterally and conjunctivae normal Neck supple General: trachea midline Chest inspection of chest normal Resp normal respiratory effort Auscultation: diminished lung sounds; Negative for rales, rhonchi or wheezes Cardio regular rate and regular rhythm Heart Sounds: murmur systolic GI normal to inspection, nondistended, normoactive bowel sounds Extremity no clubbing, cyanosis or edema Skin no rashes or lesions noted Neuro CN's II-XII intact bilaterally, moves all extremities and no focal motor deficits Psych Mood & Affect: flat affect Charges/Coding Visit Charges Inpatient E&M: 07083 Subs Hosp L3
--- NOTE | 2022-12-02 10:23 | CON.PCM.SX_ITS ---
Assessment & Plan Assessment/Plan (1) Acute kidney injury: (2) 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 1 diabetes mellitus: PLAN: Plan This is a 77-year-old male with a history of chronic kidney disease and now acute kidney injury. He is admitted for management of multifocal pneumonia as well as diabetic ketoacidosis and hypertensive urgency. Surgery was consulted for consideration of hemodialysis catheter placement given the patient has an element of volume overload compromising his respiratory status. The original r equest was for a tunneled hemodialysis catheter placement, however, the patient has had an increase of his WBC over his admission labs now to 26,000 and I am concerned about placing a semipermanent line without repeat blood cultures. Additionally, he is on antiplatelet therapy with clopidogrel and his last dose was last evening. This antiplatelet regimen puts him at increased risk for bleeding complication?especially with a tunneled line. After conferencing again with patient's primary team were agreed it was best to place a temporary hemodialysis catheter today to begin dialyzing given his respiratory decompensation. At a later date we will plan to exchange this for a tunneled line once appropriate from a bleeding risk standpoint given his concurrent antiplatelet therapy?now held. HPI Consult Data Date of Consult: 12/02/22 HPI Narrative Reason for Consultation: Consideration of tunneled hemodialysis access placement HPI Narrative: DEX VALLE, is a 77 M who presented to [facility] on the 2022 and was admitted via the emergency department due to diagnoses of diabetic ketoacidosis, hypertensive emergency, and multifocal pneumonia. He is currently under the hospitalist care in the progressive care unit, but has been noted to have deterioration of chronic kidney disease to the point that his size roller operator, Dr. Townsend, wishes to initiate hemodialysis. Mr. Valle was previously reluc tant to consider AV fistula placement and thus does not have access in place for pursuing dialysis. He denies any prior history of central line placement. His who is at bedside assists with the history. According to hospitalist service and nephrology they are seeking dialysis sooner than later on the account of patient's tenuous respiratory status. Patient with past medical history notable for CKD4 bordering on 5, anemia, coronary atherosclerosis with Plavix, COPD, hypertension, hyperlipidemia, and insulin-dependent diabetes mellitus. [facility] Medical History Alcohol use Anemia Aortic root dilatation Arthritis Atherosclerotic heart disease of [place] coronary artery without angina pectoris Back pain Back problem Bone fracture Bronchitis Cataracts, bilateral Chronic neck and back pain CKD (chronic kidney disease), stage IV COPD (chronic obstructive pulmonary disease) Diabetic retinopathy associated with type 1 diabetes mellitus Dietary restriction Dyspnea on exertion Essential hypertension Family history of hyperlipidemia Family history of hypertension Former smoker Headache Hearing loss, left Hearing loss, right Hearing problem High cholesterol History of echocardiogram History of pain when walking History of stress test Hyperlipidemia Hypertension Hypertension 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 Kidney stones assisted use of drug Mixed hyperlipidemia Nicotine abuse Olecranon bursitis, left elbow Olecranon bursitis, right elbow Osteoarthritis Osteopenia Prostate disease Shortness of breath on exertion Skin mole Sleep apnea Smoker Swelling of right elbow Unintentional weight loss of more than 10 pounds Vision problem Wears dentures Wears glasses Wears hearing aid Wears hearing aid in both ears Home Medications aspirin 81 mg tablet,delayed release (Adult Low Dose Aspirin) 81 mg PO QDAY 06/15/17 [History Last Taken 05/27/21] finasteride 5 mg tablet (Proscar) 5 mg PO QDAY 06/16/17 [History Last Taken Unknown] lisinopril 40 mg tablet 40 mg PO QDAY 06/16/17 [History Last Taken 05/29/21] multivitamin 1 tab PO QDAY 06/16/17 [History Last Taken Unknown] insulin lispro 200 unit/mL (3 mL) subcutaneous pen (Humalog KwikPen U-200 Insulin) See Rx Instructions subcut TID 10/24/21 [History Last Taken Unknown] ferrous sulfate 325 mg (65 mg iron) tablet 325 mg PO DAILY #90 tabs 12/30/21 [Rx Last Taken Unknown] flash glucose scanning reader (kingskyStyle Tani 2 [place]) #2 ea 03/28/22 [Rx Last Taken Unknown] flash glucose sensor (FreeStyle Tani 2 Sensor kit) #2 ea 03/28/22 [Rx Last Taken Unknown] rosuvastatin 20 mg tablet 20 mg PO DAILY 04/24/22 [History Last Taken Unknown] amlodipine 10 mg tablet 10 mg PO DAILY 04/30/22 [History Last Taken Unknown] docusate sodium 100 mg capsule (Colace) 200 mg PO BID 04/30/22 [History Last Taken Unknown] magnesium oxide 400 mg PO DAILY 04/30/22 [History Last Taken Unknown] vitamins A,C,C-xmfz-mlfmhj 4,296 mcg-226 mg-90 mg capsule (Vision Formula (vits L-U-Y-zinc-copper)) 1 cap PO ONCE 04/30/22 [History Last Taken Unknown] bisacodyl 5 mg tablet,delayed release 5 mg PO ONCE 05/05/22 [History Last Taken Unknown] calcium citrate 200 mg (950 mg) tablet 200 mg PO DAILY 05/05/22 [History Last Taken Unknown] cholecalciferol (vitamin D3) 125 mcg (5,000 unit) capsule 125 mcg PO DAILY 05/05/22 [History Last Taken Unknown] cinnamon bark 500 mg capsule (Cinnamon) 1,000 mg PO DAILY 05/05/22 [History Last Taken Unknown] furosemide 40 mg tablet 40 mg PO DAILY 05/05/22 [History Last Taken Unknown] folic acid 400 mcg tablet 500 mcg PO BID 06/27/22 [History Last Taken Unknown] gabapentin 300 mg capsule 300 mg PO TID 06/27/22 [History Last Taken Unknown] insulin glargine 100 unit/mL (3 mL) subcutaneous pen (Lantus Solostar U-100 Insulin) 10 unit subcut DAILY 10/27/22 [History Last Taken Unknown] Allergy/AdvReac Type Severity Reaction Status Date / Time levofloxacin [From Levaquin] Allergy Hives Verified 11/28/22 21:34 Family History Father Diabetes Hypertension Family history of hyperlipidemia Asthma Kidney disease Mother Diabetes Brother Cancer Throat cancer Brother CAD (coronary artery disease) Myocardial infarction, Onset Age: 52 Sister Family history of hyperlipidemia Hypertension Diabetes Unknown Alcoholism Arthritis Depression Diabetes Hypertension Hyperlipidemia Osteoporosis Respiratory disease Pancreatic cancer Other Family history of hypertension Surgical History Fracture of left patella Fracture of left upper extremity History of bilateral inguinal hernia repair (~2007) History of colonoscopy (~2013) History of hemorrhoidectomy (~2000) History of hernia repair (~1991) stent replacement for right sided kidney stome Wrist fracture, bilateral Social History Smoking Status: Current every day smoker tobacco type: cigarettes Tobacco: How many years used: 50 alcohol intake: current alcohol intake frequency: a few times a month substance use type: does not use caffeine: Yes Type: coffee Number of servings: 2 what type of physical activity do you participate in: none seatbelt use: sometimes do you feel safe at home: Yes Physical Exam Const alert Constitutional Narrative: Oriented to person and place, but reports significant confusion Orientation / Consciousness: confused HEENT HEENT Narrative: Airvo in place Neck Neck Narrative: Slender neck with no prior scars. No rashes or infections Resp Resp Narrative: Mildly tachypneic Lab / Micro Data 12/02/22 04:26 12/02/22 04:26 Labs: Laboratory Results - last 24 hr 12/01/22 06:02: POC Glucose 202 H 12/01/22 10:55: Blood Type B POSITIVE, Antibody Screen NEGATIVE, Crossmatch See Detail 12/01/22 18:45: POC Glucose 410 H 12/01/22 19:51: POC Glucose 433 H 12/02/22 04:26: WBC 26.7 H, RBC 2.96 L, Hgb 8.8 L, Hct 27.0 L, MCV 91.2, MCH 29.7, MCHC 32.6, RDW Std Deviation 48.6 H, RDW Coeff of Russell 14.4, Plt Count 233, MPV 11.3, Immature Gran % (Auto) 1.800 H, Neut % (Auto) 94.5 H, Lymph % (Auto) 0.5 L, [place] % (Auto) 1.8, Eos % (Auto) 1.3, Baso % (Auto) 0.1, Absolute Neuts (auto) 25.2 H, Absolute Lymphs (auto) 0.13 L, Nucleated RBC % 0, Sodium 129 L, Potassium 5.1, Chloride 101, Carbon Dioxide 17.0 L, Anion Gap 11, BUN 86 H, Creatinine 4.56 H, Estim Creat Clear Calc 12.43, Est GFR (MDRD) Af Amer 16 L, Est GFR (MDRD) Non-Af 13 L, BUN/Creatinine Ratio 18.9, Glucose 478 H*, Calcium 7.2 L, Total Bilirubin 0.50, AST 200 H, ALT 142 H, Alkaline Phosphatase 325 H, Total Protein 5.3 L, Albumin 2.0 L, Globulin 3.3, Albumin/Globulin Ratio 0.6 L 12/02/22 05:26: POC Glucose 451 H* 12/02/22 06:44: POC Glucose 415 H Micro: Microbiology 11/29/22 09:55 Blood Culture (Wb) - Anticubital Right Blood Culture - Preliminary No growth in 48 hours. 11/29/22 10:10 Blood Culture (Wb) - Anticubital Left Blood Culture - Preliminary No growth in 48 hours. Charges/Coding Visit Charges Inpatient E&M: 44507 Init Hosp L2
--- NOTE | 2022-12-02 10:27 | NURSING ---
Report given to [facility] RN [id number]
--- NOTE | 2022-12-02 10:29 | PCM.RX.CS ---
Consult Antibiotic Management Pharmacy has been consulted to manage selected antiobiotic: Vancomycin Type of Intervention Type of Consult: New start Suspected Infection Suspected Infection: Pneumonia Prior Doses of Antibiotics Prior Doses of Antibiotics Received/Current Regimen: Vancomycin 1750 mg x 1 Patient is also on Zosyn Labs Labs: Sodium 129 mmol/L (136-145) L 12/02/22 04:26 Potassium 5.1 mmol/L (3.5-5.1) 12/02/22 04:26 Chloride 101 mmol/L (98-107) 12/02/22 04:26 Carbon Dioxide 17.0 mmol/L (21.0-32.0) L 12/02/22 04:26 Anion Gap 11 (5-15) 12/02/22 04:26 BUN 86 mg/dL (7-18) H 12/02/22 04:26 Creatinine 4.56 mg/dL (0.70-1.30) H 12/02/22 04:26 Est GFR (MDRD) Af Amer 16 mL/min (>60) L 12/02/22 04:26 Est GFR (MDRD) Non-Af 13 mL/min (>60) L 12/02/22 04:26 BUN/Creatinine Ratio 18.9 RATIO (10-20) 12/02/22 04:26 Glucose 478 mg/dL (74-106) H* 12/02/22 04:26 Microbiology Microbiology: Microbiology 11/29/22 09:55 Blood Culture (Wb) - Anticubital Right Blood Culture - Preliminary No growth in 48 hours. 11/29/22 10:10 Blood Culture (Wb) - Anticubital Left Blood Culture - Preliminary No growth in 48 hours. 11/29/22 08:50 Mucosa - Nasopharyngeal Respiratory Panel (PCR) - Final 11/29/22 10:40 Urine, Random Legionella Antigen - Final 11/29/22 10:40 Urine, Random Streptococcus pneumoniae Antigen (M - Final 11/28/22 00:06 Nasal Secretion SARS-CoV-2 Antigen (Rapid) - Final Dosing Weight Weight used for dosin.6 kg Goal Trough Goal Trough: 15-20 mcg/mL Pharmacy Plan for Drug Dosing Pharmacy Plan for Drug Dosing: Patient received 1750 mg vancomycin IV x 1 on 12/02 @ 0911. Due to patients Scr of 4.56 and possible need for dialysis, will not order subsequent dosing and will get a random level for tomorrow AM to help determin subsequent dosing. Pharmacy Service will continue to monitor and adjust dosing as required. Follow-Up Labs Follow-Up Labs: Trough: Vancomycin (Random) Date/Time Labs Ordered Labs to be done on [date and time ordered]: 12/03/22 @ 0600
[2022-12-02 10:51] LABS: Bedside Glucose 205 mg/dL (74-106)
[2022-12-02] MEDS: Insulin Glargine-YFGN 100 UNIT/ML Pen 15 UNIT SC (11:35)
--- NOTE | 2022-12-02 13:49 | RAD_ITS ---
INDICATION: dialysis catheter placement EXAMINATION/TECHNIQUE: X-RAY - XR Chest 1 View COMPARISON: 11/30/2022. FINDINGS: LINES/DEVICES: Right internal jugular central venous catheter with its tip in the distal superior vena cava. LUNGS: Persistent mild left retrocardiac infiltrate/atelectasis and small left pleural effusion. MEDIASTINUM AND CARDIOVASCULAR STRUCTURES: The cardiac silhouette is within normal limits. Atherosclerotic calcifications of the aortic arch. BONES AND SOFT TISSUES: Unchanged since the prior exam. RAD/Chest 1 View (Portable) IMPRESSION: No significant change. Electronically Signed: Lawrence Freed MD at 15:11 EDT ,
--- NOTE | 2022-12-02 14:13 | PCM.PN.REN ---
Subjective Subjective Patient was transferred out of ICU but now back in ICU due to declining respiratory status. Alert and oriented. Just had nontunneled temporary HD catheter placed. Objective Data Objective Data Vital Signs: Vital Signs Temp Pulse Resp BP Pulse Ox O2 Del Method O2 Flow Rate 97.8 F 86 20 H 114/61 98 Bi-pap 50 12/02/22 12:00 12/02/22 12:00 12/02/22 12:00 12/02/22 12:00 12/02/22 12:00 12/02/22 12:00 12/02/22 08:59 FiO2 50 12/02/22 11:00 Oxygen Flow Rate (L/min) 50 Oxygen Delivery Method Bi-pap Weight: 66.6 kg Body Mass Index (BMI) 22.2 Intake & Output: Intake and Output for Last 24 Hours 11/30/22 12/01/22 12/02/22 23:59 23:59 23:59 Intake Total 1308.46 / 1308.46 625.00 / 625.00 1165 / 1165 Output Total 1300 / 1300 755 / 755 400 / 400 Balance 8.46 / 8.46 -130.00 / -130.00 765 / 765 Lab / Micro Data 12/02/22 04:26 12/02/22 04:26 Labs: Laboratory Results - last 24 hr 12/01/22 06:02: POC Glucose 202 H 12/01/22 10:55: Crossmatch See Detail 12/01/22 18:45: POC Glucose 410 H 12/01/22 19:51: POC Glucose 433 H 12/02/22 04:26: WBC 26.7 H, RBC 2.96 L, Hgb 8.8 L, Hct 27.0 L, MCV 91.2, MCH 29.7, MCHC 32.6, RDW Std Deviation 48.6 H, RDW Coeff of Russell 14.4, Plt Count 233, MPV 11.3, Immature Gran % (Auto) 1.800 H, Neut % (Auto) 94.5 H, Lymph % (Auto) 0.5 L, [place] % (Auto) 1.8, Eos % (Auto) 1.3, Baso % (Auto) 0.1, Absolute Neuts (auto) 25.2 H, Absolute Lymphs (auto) 0.13 L, Nucleated RBC % 0, Sodium 129 L, Potassium 5.1, Chloride 101, Carbon Dioxide 17.0 L, Anion Gap 11, BUN 86 H, Creatinine 4.56 H, Estim Creat Clear Calc 12.43, Est GFR (MDRD) Af Amer 16 L, Est GFR (MDRD) Non-Af 13 L, BUN/Creatinine Ratio 18.9, Glucose 478 H*, Calcium 7.2 L, Total Bilirubin 0.50, AST 200 H, ALT 142 H, Alkaline Phosphatase 325 H, Total Protein 5.3 L, Albumin 2.0 L, Globulin 3.3, Albumin/Globulin Ratio 0.6 L 12/02/22 05:26: POC Glucose 451 H* 12/02/22 06:44: POC Glucose 415 H 12/02/22 10:25: POC Glucose 205 H Micro: Microbiology 11/29/22 09:55 Blood Culture (Wb) - Anticubital Right Blood Culture - Preliminary No growth in 48 hours. 11/29/22 10:10 Blood Culture (Wb) - Anticubital Left Blood Culture - Preliminary No growth in 48 hours. 11/29/22 08:50 Mucosa - Nasopharyngeal Respiratory Panel (PCR) - Final 11/29/22 10:40 Urine, Random Legionella Antigen - Final 11/29/22 10:40 Urine, Random Streptococcus pneumoniae Antigen (M - Final 11/28/22 00:06 Nasal Secretion SARS-CoV-2 Antigen (Rapid) - Final Radiography Diagnostic Testing: Radiology Impression Chest X-Ray 12/02/22 07:55 IMPRESSION: Increased left lower lung infiltrate and small left pleural effusion. Electronically Signed: Lawrence Freed MD at 10:37 EDT , Physical Exam Narrative Alert and oriented, no apparent distress S1, S2, RRR Diminished breath sounds with rales Abdomen soft, nontender Pitting edema bilateral lower legs Temporary HD catheter right IJ dressing clean, dry and intact Assessment & Plan Assessment/Plan (1) Acute kidney injury: PLAN: Renal function is improving, he makes urine, electrolytes are fine, no significant acidosis. Patient does not need dialysis today (2) 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 1 diabetes mellitus: PLAN: - History of CKD stage IV with underlying GFR ~20ml/min. Followed by Dr. Townsend. Patient previously refused to have AV access for dialysis to be placed. There was long conversation with patient, and his daughters and patient now in agreement with DANCE PROFESSOR. Patient admitted non-STEMI, DKA and hypertensive emergency. SCr 4.20 mg/dL on admission (11/28)--> yesterday serum creatinine 3.67 mg/dL, eGFR 17 mL/min. Today creatinine up to 4.56, bicarb 17, potassium 5.1. Patient's respiratory status has declined now on BiPAP, he did receive one-time dose of Lasix 40 mg IV this morning with no improvement in respiratory status. Patient in agreement with moving forward with hemodialysis. Appreciate surgery placing non-tunneled temporary HD catheter. We will plan for dialysis today over 2 hours 2K bath with around 1 L fluid removal as patient/blood pressure tolerates and plan for dialysis again tomorrow and attempt more fluid removal as patient/blood pressure tolerates. Patient is off Plavix and possibly planning tunneled HD catheter early next week. -Acute respiratory failure multifactorial from decompensated heart failure, underlying valvular heart disease/aortic stenosis and possible pneumonia along with COPD. Currently on antibiotics and receiving breathing treatments. Lisinopril on hold. - NSTEMI; cardiology following. not clear if cardiac catheterization to be performed during inpatient hospitalization. Worsening anemia, off heparin drip. -Blood pressures on low side; currently on Lopressor 12.5 mg twice daily and amlodipine 10 mg daily. Will decrease amlodipine with holding parameters. Recommend holding these meds mornings of dialysis.
--- NOTE | 2022-12-02 14:14 | PN.CARD_ITS ---
Subjective Subjective Events noted. Patient with increasing oxygen requirements. On BiPAP. He has had temporary dialysis catheter placed this afternoon. Starting hemodialysis. Denies chest pain. Objective Data Vital Signs: Vital Signs Temp Pulse Resp BP Pulse Ox O2 Del Method O2 Flow Rate 97.8 F 86 20 H 114/61 98 Bi-pap 50 12/02/22 12:00 12/02/22 12:00 12/02/22 12:00 12/02/22 12:00 12/02/22 12:00 12/02/22 12:00 12/02/22 08:59 FiO2 50 12/02/22 11:00 Oxygen Flow Rate (L/min) 50 Oxygen Delivery Method Bi-pap Weight: 146 lb 13.246 oz Body Mass Index (BMI) 22.2 Intake & Output: Intake and Output for Last 24 Hours 11/30/22 12/01/22 12/02/22 23:59 23:59 23:59 Intake Total 1308.46 / 1308.46 625.00 / 625.00 1165 / 1165 Output Total 1300 / 1300 755 / 755 400 / 400 Balance 8.46 / 8.46 -130.00 / -130.00 765 / 765 Lab / Micro Data 12/02/22 04:26 12/02/22 04:26 Labs: Laboratory Results - last 24 hr 12/01/22 06:02: POC Glucose 202 H 12/01/22 10:55: Crossmatch See Detail 12/01/22 18:45: POC Glucose 410 H 12/01/22 19:51: POC Glucose 433 H 12/02/22 04:26: WBC 26.7 H, RBC 2.96 L, Hgb 8.8 L, Hct 27.0 L, MCV 91.2, MCH 29.7, MCHC 32.6, RDW Std Deviation 48.6 H, RDW Coeff of Russell 14.4, Plt Count 233, MPV 11.3, Immature Gran % (Auto) 1.800 H, Neut % (Auto) 94.5 H, Lymph % (Auto) 0.5 L, [place] % (Auto) 1.8, Eos % (Auto) 1.3, Baso % (Auto) 0.1, Absolute Neuts (auto) 25.2 H, Absolute Lymphs (auto) 0.13 L, Nucleated RBC % 0, Sodium 129 L, Potassium 5.1, Chloride 101, Carbon Dioxide 17.0 L, Anion Gap 11, BUN 86 H, Creatinine 4.56 H, Estim Creat Clear Calc 12.43, Est GFR (MDRD) Af Amer 16 L, Est GFR (MDRD) Non-Af 13 L, BUN/Creatinine Ratio 18.9, Glucose 478 H*, Calcium 7 .2 L, Total Bilirubin 0.50, AST 200 H, ALT 142 H, Alkaline Phosphatase 325 H, Total Protein 5.3 L, Albumin 2.0 L, Globulin 3.3, Albumin/Globulin Ratio 0.6 L 12/02/22 05:26: POC Glucose 451 H* 12/02/22 06:44: POC Glucose 415 H 12/02/22 10:25: POC Glucose 205 H Cardiology Labs/Tests 12/02/22 04:26: WBC 26.7 H, RBC 2.96 L, Hgb 8.8 L, Hct 27.0 L, MCV 91.2, MCH 29.7, MCHC 32.6, Plt Count 233, MPV 11.3, Immature Gran % (Auto) 1.800 H, Neut % (Auto) 94.5 H, Lymph % (Auto) 0.5 L, [place] % (Auto) 1.8, Eos % (Auto) 1.3, Baso % (Auto) 0.1, Absolute Neuts (auto) 25.2 H, Nucleated RBC % 0, Sodium 129 L, Potassium 5.1, Chloride 101, Carbon Dioxide 17.0 L, Anion Gap 11, BUN 86 H, Creatinine 4.56 H, Est GFR (MDRD) Af Amer 16 L, Est GFR (MDRD) Non-Af 13 L, BUN/Creatinine Ratio 18.9, Glucose 478 H*, Calcium 7.2 L, Total Bilirubin 0.50 Rhythm: EKG: ECHO: Stress Test: Cardiac Cath: PCI: CT Surgery: Holter monitor: EPS: PPM: CXR: Chest CT Scan: Radiography Diagnostic Testing: Radiology Impression Chest X-Ray 12/02/22 07:55 IMPRESSION: Increased left lower lung infiltrate and small left pleural effusion. Electronically Signed: Lawrence Freed MD at 10:37 EDT , Physical Exam Narrative On BiPAP. Heart sounds 1 and 2 noted. Chest with bibasilar crepitus. Abdomen soft. Awake. Alert. 1+ bilateral lower extremity edema. Assessment & Plan Assessment/Plan (1) NSTEMI, initial episode of care: PLAN: Non-ST elevation SD in the setting of bilateral pneumonia with hypoxia. Continue medical management for now. Echocardiogram reviewed. Ejection fr action approximately 50%. Coronary angiography when otherwise stable from his pneumonia. (2) Aortic valve stenosis: QUALIFIERS: Cardiac valve disease etiology: nonrheumatic Qualified Code(s): I35.0 - Nonrheumatic aortic (valve) stenosis PLAN: I reviewed the echocardiogram myself. I believe the aortic valve stenosis severity is mild to moderate. The valve area is approximately 1.29 cm?. Continue to monitor. (3) Dyspnea: PLAN: Secondary to bilateral patchy pneumonia. On antibiotics. (4) Pneumonia: QUALIFIERS: Pneumonia type: due to unspecified organism Laterali ty: right Lung location: unspecified part of lung Qualified Code(s): J18.9 - Pneumonia, unspecified organism PLAN: On antibiotics. Manage as per internal medicine. (5) CKD (chronic kidney disease) stage 4, GFR 15-29 ml/min: PLAN: Starting hemodialysis this afternoon. Nephrology following. (6) Anemia: PLAN: Monitor. Manage as per internal medicine. Consider GI consult. (7) Diabetes: QUALIFIERS: Diabetes mellitus type: type 1 Diabetes mellitus complication status: with hyperglycemia Qualified Code(s): E10.65 - Type 1 diabetes mellitus with hyperglycemia PLAN: As per internal medicine.
[2022-12-02 14:21] LABS: Bedside Glucose 71 mg/dL (74-106)
--- NOTE | 2022-12-02 14:24 | PCM.OP.PRO ---
Procedure Report Date of Procedure: 12/02/22 Procedure name: Insertion of temporary hemodialysis catheter (12 Tamazight X 16cm curved) Procedure detail: After obtaining consent from patient's spouse, patient was positioned in Trendelenburg to facilitate filling of the central veins of the neck. The head was positioned to the left to allow access to the right neck. The right internal jugular vein was localized using bedside ultrasound. It appeared to be widely patent and flow was confirmed with color Doppler. Then the neck was sterilely prepped and draped. A formal timeout was conducted to confirm patient and procedure. The procedure was begun as the superficial tissues of the neck were then anesthetized with a local block using 3 mL Xylocaine. Under direct ultrasound guidance the vein was accessed with return of dark red blood. Using a Seldinger technique a guidewire was placed without difficulty. The guidewire tract was then opened at the skin with an 11 blade and serially dilated. Then the hemodialysis catheter was inserted into the vein. Both ports aspirated and flushed easily. Dialysis nursing arrived to the room at the conclusion of the procedure so no heparin lock was performed but the catheters were left locked with saline. The catheter was then sewn in using 0 silk in three-point fixation. Insertion site was cleaned and a chlorhexidine dressing was placed about the catheter to maintain sterility. A post procedure chest x-ray was obtained to verify the position of the catheter and exclude pneumothorax. Complications: None EBL: 20 mL Procedures Hospitalists Procedures: 99407 Insert Non-tunnel CV Cath
[2022-12-02] MEDS: 0.9% Normal Saline 1,000 ML IV.SOLN. 1000 ML OPERA.SITE (14:33)
[2022-12-02] MEDS: PureFlow B 2K Dialysis Soln 1 BAG 6 BAG PF (14:33)
[2022-12-02 15:32] LABS: Hepatitis B Surface Antigen Non-Reactive (Nonreactive)
[2022-12-02] MEDS: Heparin 10,000 UNITS/10 ML Vial IV (16:06)
[2022-12-02 16:42] LABS: Bedside Glucose 97 mg/dL (74-106)
[2022-12-02] MEDS: Folic Acid 1 MG Tablet 0.5 MG PO (17:15)
[2022-12-02] MEDS: Gabapentin 100 MG Capsule 200 MG PO (17:17)
[2022-12-02 18:38] LABS: Bedside Glucose 289 mg/dL (74-106)
[2022-12-02] MEDS: Metoprolol Tartrate 25 MG Tablet 12.5 MG PO (21:32)
[2022-12-02] MEDS: Docusate Sodium 100 MG Capsule 200 MG PO (21:33)
[2022-12-02] MEDS: Atorvastatin Calcium 40 MG Tablet PO (21:33)
[2022-12-02 21:38] LABS: Bedside Glucose 148 mg/dL (74-106)
[2022-12-03] VITALS (38 sets, daily range): BP systolic 46–136; BP diastolic 39–73; PULSE 83–103; RESP 12–23; TEMP 36.6–37.3; O2SAT 93–100; BMI 22.8; BMI 22.5
[2022-12-03 04:25] LABS: Absolute Lymphocyte Count 0.38 X10^3/uL (0.83-4.51); Absolute Neutrophil Count 22.7 X10^3/uL (2.0-7.7); Basophil# 0.06 X10^3/uL; Basophil% 0.2 % (0-1); Differential Indicated SCAN CRITERIA MET; Eosinophil# 0.94 X10^3/uL; Eosinophils% 3.8 % (0-5); Hematocrit 28.2 % (40-54); Hemoglobin 9.4 g/dL (13.0-16.5); Lymphocyte # 0.38 X10^3/ul (0.83-4.51); Lymphocyte % 1.5 % (19-41); Mean Corp Hgb Conc 33.3 g/dL (32-36); Mean Corpuscular Hgb 29.4 pg (27.0-32.0); Mean Corpuscular Volume 88.1 fL (80-94); Mean Platelet Vol. 11.2 fl (6.2-12.0); Monocyte# 0.38 X10^3/uL; Monocyte% 1.5 % (0-10); NRBC Flagged by Analyzer 0 % (0-5); Neutrophil # 22.69 X10^3/uL (2.7-7.7); Neutrophil % 90.9 % (47-70); POSITIVE DIFFERENTIAL YES; Platelet Count 222 K/mm3 (150-450); RBC Distribution Width CV 14.6 % (11.6-14.6)
[2022-12-03 04:43] LABS: Vancomycin, Random Level 18.3 ug/mL (0.0-15.0)
[2022-12-03 04:45] LABS: ALB/GLOB Ratio 0.5 RATIO (0.9-2.4); AST(SGOT) 31 U/L (15-37); Alanine Aminotransfer ALT/SGPT 91 U/L (16-61); Albumin, Serum 1.7 g/dL (3.2-5.0); Alkaline Phosphatase 305 U/L (45-117); Anion Gap 10 (5-15); BUN 76 mg/dL (7-18); BUN/Creat Ratio 18.2 RATIO (10-20); Calcium,Total 7.2 mg/dL (8.5-10.1); Chloride 104 mmol/L (98-107); Creatinine, Serum 4.18 mg/dL (0.70-1.30); EST Glomerular Filtration Rate 15 mL/min (>60); Est Glom Filt Rate - Afr Amer 18 mL/min (>60); Globulin 3.3 g/dL (2.2-4.2); Glucose 169 mg/dL (74-106); Sodium Level 134 mmol/L (136-145)
--- NOTE | 2022-12-03 05:22 | PCM.RX.CS ---
Consult Antibiotic Management Pharmacy has been consulted to manage selected antiobiotic: Vancomycin Type of Intervention Type of Consult: Follow-up Labs Labs: Sodium 134 mmol/L (136-145) L 12/03/22 04:15 Potassium 4.0 mmol/L (3.5-5.1) 12/03/22 04:15 Chloride 104 mmol/L (98-107) 12/03/22 04:15 Carbon Dioxide 20.0 mmol/L (21.0-32.0) L 12/03/22 04:15 Anion Gap 10 (5-15) 12/03/22 04:15 BUN 76 mg/dL (7-18) H 12/03/22 04:15 Creatinine 4.18 mg/dL (0.70-1.30) H 12/03/22 04:15 Est GFR (MDRD) Af Amer 18 mL/min (>60) L 12/03/22 04:15 Est GFR (MDRD) Non-Af 15 mL/min (>60) L 12/03/22 04:15 BUN/Creatinine Ratio 18.2 RATIO (10-20) 12/03/22 04:15 Glucose 169 mg/dL (74-106) H 12/03/22 04:15 Random Vancomycin 18.3 ug/mL (0.0-15.0) H 12/03/22 04:15 Microbiology Microbiology: Microbiology 11/29/22 09:55 Blood Culture (Wb) - Anticubital Right Blood Culture - Preliminary No growth in 48 hours. 11/29/22 10:10 Blood Culture (Wb) - Anticubital Left Blood Culture - Preliminary No growth in 48 hours. 11/29/22 08:50 Mucosa - Nasopharyngeal Respiratory Panel (PCR) - Final 11/29/22 10:40 Urine, Random Legionella Antigen - Final 11/29/22 10:40 Urine, Random Streptococcus pneumoniae Antigen (M - Final 11/28/22 00:06 Nasal Secretion SARS-CoV-2 Antigen (Rapid) - Final Dosing Weight Weight used for dosin.6 kg Estimated Creatinine Clearance Estimated Creatinine Clearance: 13 Goal Trough Goal Trough: 15-20 mcg/mL Pharmacy Plan for Drug Dosing Pharmacy Plan for Drug Dosing: Random vancomycin level was in target range at 18.3. Per protocol will give a dose of 500mg x1 on 12/03/22 - to be scheduled after dialysis. Pharmacy will verify the continuing HD schedule and schedule vanco levels/doses on dialysis days. Pharmacy Service will continue to monitor and adjust dosing as required.
[2022-12-03 05:30] LABS: Hepatitis B Surface Antigen Non-Reactive (Nonreactive)
--- NOTE | 2022-12-03 06:14 | PN.HOSP_ITS ---
Reason for Visit Reason for Visit: Diagnoses Sepsis, unspecified organism (11/28/22) Anemia, unspecified (11/28/22) Type 1 diabetes mellitus with ketoacidosis without coma (11/28/22) Type 1 diabetes mellitus with diabetic chronic kidney disease (11/28/22) Type 1 diabetes mellitus with hyperglycemia (11/28/22) Hyperkalemia (11/28/22) Non-ST elevation (NSTEMI) myocardial infarction (11/28/22) Nonrheumatic aortic (valve) stenosis (11/28/22) Pneumonia, unspecified organism (11/28/22) Acute respiratory failure with hypoxia (11/28/22) Acute kidney failure, unspecified (11/28/22) Chronic kidney disease, stage 4 (severe) (11/28/22) Dyspnea, unspecified (11/28/22) Severe sepsis without septic shock (11/28/22) Other specified abnormalities of plasma proteins (11/28/22) Subjective Subjective Patient overnight with no acute events per nursing staff with appropriate vital signs, appropriate saturation with successful placement of temporarily dialysis catheter and dialysis. Patient notes dyspnea is improved. Only complaint is that he did not sleep well. Patient denies fevers, chills, nausea, emesis, abdominal pain, chest pain. Objective Data Objective Data Vital Signs: Vital Signs Temp Pulse Resp BP Pulse Ox O2 Del Method O2 Flow Rate 98.0 F 87 17 113/73 100 Bi-pap 50 12/03/22 00:00 12/03/22 06:00 12/03/22 06:00 12/03/22 06:00 12/03/22 06:00 12/03/22 06:00 12/02/22 17:00 FiO2 50 12/03/22 05:11 Oxygen Flow Rate (L/min) 50 Oxygen Delivery Method Bi-pap Weight: 150 lb 9.211 oz Body Mass Index (BMI) 22.8 Intake & Output: Intake and Output for Last 24 Hours 12/01/22 12/02/22 12/03/22 23:59 23:59 23:59 Intake Total 625.00 / 625.00 1565 / 1565 50 / 50 Output Total 755 / 755 1775 / 2025 250 / 250 Balance -130.00 / -130.00 -210 / -460 -200 / -200 Lab / Micro Data 12/03/22 04:15 12/03/22 04:15 Labs: Laboratory Results - last 24 hr 12/01/22 10:55: Crossmatch See Detail 12/01/22 16:53: POC Glucose 289 H 12/02/22 06:44: POC Glucose 415 H 12/02/22 10:25: POC Glucose 205 H 12/02/22 14:03: POC Glucose 71 L 12/02/22 16:23: POC Glucose 97 12/02/22 21:20: POC Glucose 148 H 12/02/22 : Hep Bs Antigen Non-Reactive 12/03/22 04:15: WBC 25.0 H, RBC 3.20 L, Hgb 9.4 L, Hct 28.2 L, MCV 88.1, MCH 29.4, MCHC 33.3, RDW Std Deviation 47.0 H, RDW Coeff of Russell 14.6, Plt Count 222, MPV 11.2, Immature Gran % (Auto) 2.100 H, Neut % (Auto) 90.9 H, Lymph % (Auto) 1.5 L, [place] % (Auto) 1.5, Eos % (Auto) 3.8, Baso % (Auto) 0.2, Absolute Neuts (auto) 22.7 H, Absolute Lymphs (auto) 0.38 L, Nucleated RBC % 0, Sodium 134 L, Potassium 4.0, Chloride 104, Carbon Dioxide 20.0 L, Anion Gap 10, BUN 76 H, Creatinine 4.18 H, Estim Creat Clear Calc 13.30, Est GFR (MDRD) Af Amer 18 L, Est GFR (MDRD) Non-Af 15 L, BUN/Creatinine Ratio 18.2, Glucose 169 H, Calcium 7.2 L, Total Bilirubin 0.30, AST 31, ALT 91 H, Alkaline Phosphatase 305 H, Total Protein 5.0 L, Albumin 1.7 L, Globulin 3.3, Albumin/Globulin Ratio 0.5 L, Random Vancomycin 18.3 H, Hep Bs Antigen Non-Reactive Micro: Microbiology 11/29/22 09:55 Blood Culture (Wb) - Anticubital Right Blood Culture - Preliminary No growth in 48 hours. 11/29/22 10:10 Blood Culture (Wb) - Anticubital Left Blood Culture - Preliminary No growth in 48 hours. 11/29/22 08:50 Mucosa - Nasopharyngeal Respiratory Panel (PCR) - Final 11/29/22 10:40 Urine, Random Legionella Antigen - Final 11/29/22 10:40 Urine, Random Streptococcus pneumoniae Antigen (M - Final 11/28/22 00:06 Nasal Secretion SARS-CoV-2 Antigen (Rapid) - Final Radiography Diagnostic Testing: Radiology Impression Chest X-Ray 12/02/22 07:55 IMPRESSION: Increased left lower lung infiltrate and small left pleural effusion. Electronically Signed: Lawrence Freed MD at 10:37 EDT , Chest X-Ray 12/02/22 13:49 IMPRESSION: No significant change. Electronically Signed: Lawrence Freed MD at 15:11 EDT , Physical Exam Narrative Physical Examination: General: Awake, alert, oriented x 3 and cooperative, seated upright in the ICU bed, less fatigued than day prior, only complaint currently is that he did not sleep well secondary to being woken up frequently Skin: Normal color, normal turgor, no icterus, no cyanosis except occasional alycia y staged ecchymoses to the extremities. HEENT: AT/NC, EOMI, PERRLA, dry MM, mask in place. Lungs: More diminished than day prior, currently high flow transitioning to BiPAP, no significant respiratory distress at this time however poor movements, no marked rales, rhonchi or wheezing. Heart: Currently regular rate and rhythm; no gallop, rub audible, + SM. Abdomen: Soft, NTTP, ND, distant normal BS. Extremities: No cyanosis, clubbing, or edema. Neurological: Patient awake, alert, oriented as noted, cognitive function intact; pupils equally reactive to light and accommodation, cranial nerves gr ossly normal, moving all 4 extremities, no focal deficits, strength worsened, severely global decrease secondary to acute presentation and worsened status overnight. Psychiatric: Affect appears fatigued, ill-appearing, no acute evidence of depressive or anxiety feelings. Assessment & Plan Assessment/Plan (1) Acute respiratory failure with hypoxia: PLAN: Plan The patient is a 77 y/o M w/ PMHx: Chronic anemia/Fe deficiency anemia, BPH, Prostate CA, HTN, HLD, NIKHIL, COPD, Former tobacco use, Diabetes mellitus type II, CKD stage IV who presents to the [facility] ED on 12/01/22 with history of dyspnea, wor se with exertion with productive green sputum as well as chills in addition to polyuria and polydipsia prompting eventual ED evaluation. #1. Acute Hypoxic and Hypercarbic Respiratory Failure, multifactorial, secondary to Acute Combined Acute Systolic/Diastolic CHF Exacerbation complicated by underlying valvular heart disease/aortic stenosis and Concurrent Possible Acute RLL Pneumonia complicated by underlying COPD history: Patient initially admitted to the ICU on BiPAP but given improvement transitioned to PCU status, 11/30/2022 chest x-ray with mildly decreased bilateral pneumonia evidence, ECHO w/ EF 4045%, SANDEEP calculated 0.98 cm?, aortic maximal pressure gradient 33.1 mmHg, aortic mean pressure gradient 19.8 mmHg, moderate to severe AV stenosis/calcific, grade 1 diastolic dysfunction with recommendation for choral director for dobutamine stress echo to assess severity of AV stenosis with no prior comparison, rapid SARS COVID and influenza antigen negative, full respiratory panel negative, negative Legionella and strep pneumonia antigens, blood culture x2 pending (11/29/22), initially maintained on IV Rocephin as well as IV of azithromycin (start 11/29/22) with plan 7 days of antibiotic therapy; however, 12/02/22 worsened status overnight and increasing WBC with L shift thus transitioned per discussion with Pulmonary medicine to IV Vanc and IV Zosyn therapy, ATC DuoNeb therapy, PRN albuterol, continue aspirin, statin, plavix and metoprolol added per Cardiology. Recommendation for diuretic challenge now that DKA has resolved this patient did require initial IV fluid administration but given worsened overnight into 12/02/2022 AM with high flow need--> BIPAP lasix 40 mg IV x 1 administered, worsened lab appearance, 12/02/22 transitioned to the ICU. Surgery placed temporary access and HD initiated. Plavix held temporarily for line. Bld Cx x 2 obtained 12/02/22 given leukocytosis, concerns per surgery. If cultures remain negative they have noted intention to place tunnelled ca theter. Will place on SC heparin only. #2. Acute NSTEMI: Presentation EKG with sinus rhythm with no acute evidence of ischemia, initial troponin 11/28/2022 301 trending upward with last 11/30/2019 365 16, 11/29/2022 ECHO w/ EF 4045%, SANDEEP calculated 0.98 cm?, aortic maximal pressure gradient 33.1 mmHg, aortic mean pressure gradient 19.8 mmHg, moderate to severe AV stenosis/calcific, grade 1 diastolic dysfunction with recommendation for choral director for dobutamine stress echo to assess severity of AV stenosis with no prior comparison, initially maintained on heparin drip which was held for HD access placement and transitioned to SC following. Cardiology consulted, following and initially planned catheterization 12/01/22 however concern for low hgb and ongoing issues with overload eventually started on HD as noted this was postponed. Maintained on aspirin, statin, plavix and metoprolol added per Cardiology but given planned tunnelled catheter for HD planned once Bld Cx negative, plavix currently held, add back as soon as able. #3. DKA: Hemoglobin A1c 11/29/2022 9.2% increased from most recently noted remotely 01/04/2018 8.5%, patient initially maintained on DKA protocol with eventual anion gap closure x2 and normalization of bicarb with insulin drip transitioned to Lantus with concurrent insulin sliding scale with Accu-Chek, will continue ADA diet with overlapping insulin sliding scale and scheduled, encourage appropriate lifestyle and diet changes, nutrition consulted. 12/02/22 increased BS, decompensated as noted above, administered increased short acting x 1, improved. Will continue to trend and alter insulin regimen as needed. #4. Acute kidney injury on CKD stage IV: Secondary to DKA presentation. Admission BUN/Cr 66/4.20, prior baseline creatinine noted to be primarily 3.0- 3.3, 12/01/22 BUN/Cr 66/3.67-->12/02/22 BUN/Cr 86/4.56-->12/03/22 BUN/Cr 76/4.18. Nephrology consulted, Dr. Townsend and AVF recommended in preparation for future HD however patient has declined but agreed to temporarily HD catheter initially but following more discussions amenable to event AVF outpatient. Worsening status 12/02/22, temporary access placed and patient started on HD. Pending Bld Cx x 2 as noted above and if negative then Surgery will place tunnelled catheter. Plavix temporarily on hold for this procedure. #5. Hypertensive Urgency: Initial presentation blood pressures 190s over 70s to 100s, suspected to have contributed to acute presentation #1, currently maintained only on amlodipine, metoprolol added per Cardiology. #6. Acute hyponatremia, multifactorial given #1 potentially initially hypovolemic however eventually following hydration suspected of enteral volume overload: Admission sodium 124, as noted judiciously hydrated given DKA however now concern for possibly fluid overload with possible initiation of diuretic challenge per pulmonary recommendation, 12/01/2022 sodium 135-->12/03/22 Na 134. Pulse dose lasix 40 mg x 1 administered 12/02/22 pending HD as noted. #7. Acute on Chronic normocytic/iron deficiency anemia: Admission hemoglobin 9.8, baseline prior to this primarily 8-9, 12/01/2022 7.2 and given Cardiology concern for proceeding with catheterization with Hgb at that level given presentation 1 u PRBC administered, 12/02/22 CBC w/ Hgb 8.8-->12/03/22 Hgb 9.4. #8. Hyperlipidemia: We will continue patient on statin therapy. #9. Former tobacco use: Encourage continued tobacco cessation. #10. BPH: We will continue patient finasteride home regimen #11. NKIHIL: BiPAP normally q HS, as noted given worsening status transitioned to high flow->BIPAP continuous. #12. DVT prophylaxis: Heparin drip discontinued, heparin SC held given planned access placement for HD start, restart 12/03/22 as long as appropriate. #13. CODE STATUS: Full Code. Charges/Coding Visit Charges Inpatient E&M: 56118 Subs Hosp L3
--- NOTE | 2022-12-03 06:27 | PN.CC_ITS ---
Assessment & Plan Assessment/Plan (1) Acute respiratory failure with hypoxia: PLAN: Plan RECOMMENDATIONS: 1. Continue to wean oxygen to maintain saturations at or above 90%. 2. Continue to monitor H&H. Transfuse if hemoglobin drops below 7 g/dL. 3. Continue with dialysis per nephrology recommendations. 4. Continue empiric broad-spectrum antimicrobials. 5. Hold Plavix for now. 6. Continue PPI therapy. 7. Continue scheduled bronchodilators. 8. Additional work-up per cardiology. IMPRESSIONS: 1. Acute hypoxemic respiratory failure Clinical concern for pulmonary edema in the setting of decompensated heart failure/aortic valve stenosis, along with superimposed pneumonia. IV antimicrobials were initiated. However, cultures have been negative thus far. At this time, would recommend additional medical therapy per cardiology recommendations. The patient would also likely benefit from volume optimization. Continue attempts at volume optimization through hemodialysis, per nephrology recommendations. Continue to wean supplemental oxygen to maintain saturations at or above 90%. Encourage incentive spirometer use and mobilize patient as tolerated. 2. Acute on chronic kidney disease Nephrology is following to assist with medical management. Continue hemodialysis support per nephrology recommendations. 3. Troponin elevation/aortic valve stenosis Cardiology is following to assist with medical management. Unclear if cardiac catheterization is going to be performed during inpatient hospitalization. 4. Anemia The patient has had worsening anemia over the course of his hospitalization. Transfuse if hemoglobin drops below 7 g/dL. Continue PPI therapy as ordered. 5. History of hypertension/chronic tobacco dependency/questionable sleep apnea Complicates care, management, recovery and prognosis. Continue supportive care as noted above. This note was generated with [employer] dictation software. It may contain incorrect words, spelling, and punctuation that were not noted in checking the note before signing. Subjective Subjective The patient was seen and examined at the bedside this morning. Events from the last 24 hours have been reviewed. The patient is currently afebrile, hemodynamically stable and maintaining appropriate oxygen saturations on 2 L/min via nasal cannula. The patient is currently documented to be overall net +3.1 L for the hospitalization. The patient did undergo successful placement of a temporary hemodialysis catheter yesterday. White blood cell count remains elevated at 25,000. Objective Data Objective Data The patient's most recent lab work, culture data and imaging studies have all been personally reviewed. Surface echocardiogram demonstrated a mildly dilated LV with an ejection fraction of 40 to 45%. Moderate to severe aortic stenosis was noted. Respiratory viral panel was negative. Strep and urine Legionella antigens were negative. Blood cultures have not demonstrated any growth to d ate. Vital Signs: Vital Signs Temp Pulse Resp BP Pulse Ox O2 Del Method O2 Flow Rate 98.0 F 87 17 113/73 100 Bi-pap 50 12/03/22 00:00 12/03/22 06:00 12/03/22 06:00 12/03/22 06:00 12/03/22 06:00 12/03/22 06:00 12/02/22 17:00 FiO2 50 12/03/22 05:11 Oxygen Flow Rate (L/min) 50 Oxygen Delivery Method Bi-pap Weight: 150 lb 9.211 oz Body Mass Index (BMI) 22.8 Intake & Output: Intake and Output for Last 24 Hours 12/01/22 12/02/22 12/03/22 23:59 23:59 23:59 Intake Total 625.00 / 625.00 1565 / 1565 50 / 50 Output Total 755 / 755 1775 / 2025 250 / 250 Balance -130.00 / -130.00 -210 / -460 -200 / -200 Lab / Micro Data Attestation: I reviewed the patient's lab results. 12/03/22 04:15 12/03/22 04:15 Labs: Laboratory Results - last 24 hr 12/01/22 10:55: Crossmatch See Detail 12/01/22 16:53: POC Glucose 289 H 12/02/22 06:44: POC Glucose 415 H 12/02/22 10:25: POC Glucose 205 H 12/02/22 14:03: POC Glucose 71 L 12/02/22 16:23: POC Glucose 97 12/02/22 21:20: POC Glucose 148 H 12/02/22 : Hep Bs Antigen Non-Reactive 12/03/22 04:15: WBC 25.0 H, RBC 3.20 L, Hgb 9.4 L, Hct 28.2 L, MCV 88.1, MCH 29.4, MCHC 33.3, RDW Std Deviation 47.0 H, RDW Coeff of Russell 14.6, Plt Count 222, MPV 11.2, Immature Gran % (Auto) 2.100 H, Neut % (Auto) 90.9 H, Lymph % (Auto) 1.5 L, Wright % (Auto) 1.5, Eos % (Auto) 3.8, Baso % (Auto) 0.2, Absolute Neuts (auto) 22.7 H, Absolute Lymphs (auto) 0.38 L, Nucleated RBC % 0, Sodium 134 L, Potassium 4.0, Chloride 104, Carbon Dioxide 20.0 L, Anion Gap 10, BUN 76 H, Creatinine 4.18 H, Estim Creat Clear Calc 13.30, Est GFR (MDRD) Af Amer 18 L, Est GFR (MDRD) Non-Af 15 L, BUN/Creatinine Ratio 18.2, Glucose 169 H, Calcium 7.2 L, Total Bilirubin 0.30, AST 31, ALT 91 H, Alkaline Phosphatase 305 H, Total Protein 5.0 L, Albumin 1.7 L, Globulin 3.3, Albumin/Globulin Ratio 0.5 L, Random Vancomycin 18.3 H, Hep Bs Antigen Non-Reactive Micro: Microbiology 11/29/22 09:55 Blood Culture (Wb) - Anticubital Right Blood Culture - Preliminary No growth in 48 hours. 11/29/22 10:10 Blood Culture (Wb) - Anticubital Left Blood Culture - Pre liminary No growth in 48 hours. 11/29/22 08:50 Mucosa - Nasopharyngeal Respiratory Panel (PCR) - Final 11/29/22 10:40 Urine, Random Legionella Antigen - Final 11/29/22 10:40 Urine, Random Streptococcus pneumoniae Antigen (M - Final 11/28/22 00:06 Nasal Secretion SARS-CoV-2 Antigen (Rapid) - Final Radiography Diagnostic Testing: Radiology Impression Chest X-Ray 12/02/22 07:55 IMPRESSION: Increased left lower lung infiltrate and small left pleural effusion. Electronically Signed: Lawrence Freed MD at 10:37 EDT , Chest X-Ray 12/02/22 13:49 IMPRESSION: No significant change. Electronically Signed: Lawrence Freed MD at 15:11 EDT , Physical Exam Const alert, oriented x3 and no apparent distress General Appearance: cooperative HEENT normocephalic and head/scalp atraumatic Eyes PERRL, EOMs intact bilaterally and conjunctivae normal Neck supple General: trachea midline Chest inspection of chest normal Resp normal respiratory effort Auscultation: diminished lung sounds; Negative for rales, rhonchi or wheezes Cardio regular rate and regular rhythm Heart Sounds: murmur systolic GI normal to inspection, nondistended, normoactive bowel sounds Extremity no clubbing, cyanosis or edema Skin no rashes or lesions noted Neuro CN's II-XII intact bilaterally, moves all extremities and no focal motor deficits Psych Mood & Affect: flat affect Charges/Coding Visit Charges Inpatient E&M: 47389 Subs Hosp L2
[2022-12-03] MEDS: Ipratropium/Albuterol Sulfate 3 ML AMPUL.NEB INHALATION ×3 (07:03→19:42)
--- NOTE | 2022-12-03 07:33 | PN.SURG_ITS ---
Subjective Subjective Patient seen and examined during AM rounds. He reports that he does not feel well this morning. He denies any neck discomfort. Dialysis nursing confirms that his catheter worked well for hemodialysis yesterday. Objective Data Objective Data Vital Signs: Vital Signs Temp Pulse Resp BP Pulse Ox O2 Del Method O2 Flow Rate 98.0 F 88 20 H 127/54 H 94 Airvo 50 12/03/22 07:00 12/03/22 07:04 12/03/22 07:04 12/03/22 07:00 12/03/22 07:04 12/03/22 07:04 12/03/22 07:04 FiO2 43 12/03/22 07:04 Oxygen Flow Rate (L/min) 50 Oxygen Delivery Method Airvo Weight: 150 lb 9.211 oz Body Mass Index (BMI) 22.8 Intake & Output: Intake and Output for Last 24 Hours 12/01/22 12/02/22 12/03/22 23:59 23:59 23:59 Intake Total 625.00 / 625.00 1565 / 1565 50 / 50 Output Total 755 / 755 1775 / 2025 250 / 250 Balance -130.00 / -130.00 -210 / -460 -200 / -200 Lab / Micro Data 12/03/22 04:15 12/03/22 04:15 Labs: Laboratory Results - last 24 hr 12/01/22 10:55: Crossmatch See Detail 12/01/22 16:53: POC Glucose 289 H 12/02/22 10:25: POC Glucose 205 H 12/02/22 14:03: POC Glucose 71 L 12/02/22 16:23: POC Glucose 97 12/02/22 21:20: POC Glucose 148 H 12/02/22 : Hep Bs Antigen Non-Reactive 12/03/22 04:15: WBC 25.0 H, RBC 3.20 L, Hgb 9.4 L, Hct 28.2 L, MCV 88.1, MCH 29.4, MCHC 33.3, RDW Std Deviation 47.0 H, RDW Coeff of Russell 14.6, Plt Count 222, MPV 11.2, Immature Gran % (Auto) 2.100 H, Neut % (Auto) 90.9 H, Lymph % (Auto) 1.5 L, [place] % (Auto) 1.5, Eos % (Auto) 3.8, Baso % (Auto) 0.2, Absolute Neuts (auto) 22.7 H, Absolute Lymphs (auto) 0.38 L, Nucleated RBC % 0, Sodium 134 L, Potassium 4.0, Chloride 104, Carbon Dioxide 20.0 L, Anion Gap 10, BUN 76 H, Creatinine 4.18 H, Estim Creat Clear Calc 13.30, Est GFR (MDRD) Af Amer 18 L, Est GFR (MDRD) Non-Af 15 L, BUN/Creatinine Ratio 18.2, Glucose 169 H, Calcium 7.2 L, Total Bilirubin 0.30, AST 31, ALT 91 H, Alkaline Phosphatase 305 H, Total Protein 5.0 L, Albumin 1.7 L, Globulin 3.3, Albumin/Globulin Ratio 0.5 L, Random Vancomycin 18.3 H, Hep Bs Antigen Non-Reactive Micro: Microbiology 11/29/22 09:55 Blood Culture (Wb) - Anticubital Right Blood Culture - Preliminary No growth in 48 hours. 11/29/22 10:10 Blood Culture (Wb) - Anticubital Left Blood Culture - Preliminary No growth in 48 hours. 11/29/22 08:50 Mucosa - Nasopharyngeal Respiratory Panel (PCR) - Final 11/29/22 10:40 Urine, Random Legionella Antigen - Final 11/29/22 10:40 Urine, Random Streptococcus pneumoniae Antigen (M - Final 11/28/22 00:06 Nasal Secretion SARS-CoV-2 Antigen (Rapid) - Final Radiography Diagnostic Testing: Radiology Impression Chest X-Ray 12/02/22 07:55 IMPRESSION: Increased left lower lung infiltrate and small left pleural effusion. Electronically Signed: Lawrence Freed MD at 10:37 EDT , Chest X-Ray 12/02/22 13:49 IMPRESSION: No significant change. Electronically Signed: Lawrence Freed MD at 15:11 EDT , Physical Exam Neck Neck Narrative: Temporary hemodialysis catheter in place to patient's right neck. There is no evidence of hematoma or ongoing oozing. Patient has no tenderness about the catheter insertion site. The catheter is presently capped and the lines appear clear. Resp Resp Narrative: Mildly tachypneic with shallow inspirations on Airvo Assessment & Plan Assessment/Plan (1) Acute kidney injury: (2) 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 1 diabetes mellitus: PLAN: Plan This is a 77-year-old male with a history of chronic kidney disease and now acute kidney injury. He is admitted for management of multifocal pneumonia as well as diabetic ketoacidosis and hypertensive urgency. Surgery was consulted for consideration of hemodialysis catheter placement given the patient has an element of volume overload compromising his respiratory status. A nontunneled hemodialysis catheter was placed at bedside yesterday under ultrasound guidance and Mr. Andre reportedly completed an uneventful session of dialysis thereafter. Unfortunately he still feels poorly today. From an access standpoint, recommend continue to hold Plavix?if permissible from a medical standpoint?and we can target a date early next week, when patient is hopefully further clinically improved, to convert this to a tunneled line. Charges/Coding Visit Charges Inpatient E&M: 57892 Subs Hosp L2
[2022-12-03 08:30] LABS: Bedside Glucose 173 mg/dL (74-106)
[2022-12-03] MEDS: 0.9% Saline Lock 10 ML Syringe IV ×4 (08:36→17:47)
[2022-12-03] MEDS: Insulin Lispro 100 UNIT/ML INSULN.PEN 10 UNIT SC ×2 (08:43→17:46)
[2022-12-03] MEDS: Insulin Lispro 100 UNIT/ML INSULN.PEN SC ×3 (08:44→21:17)
[2022-12-03] MEDS: Ferrous Sulfate 325 MG Tablet PO (08:46)
[2022-12-03] MEDS: Magnesium Chloride 64 MG Delay Rel.Tablet 128 MG PO (08:46)
[2022-12-03] MEDS: Docusate Sodium 100 MG Capsule 200 MG PO ×2 (08:46→21:17)
[2022-12-03] MEDS: Multivitamin (Healthy Eyes) Capsule 1 CAP PO (08:47)
[2022-12-03] MEDS: Aspirin E.C. 81 MG Tablet PO (08:47)
[2022-12-03] MEDS: Finasteride 5 MG Tablet PO (08:48)
[2022-12-03] MEDS: Multivitamins,Therapeutic Tablet 1 TABLET PO (08:48)
[2022-12-03] MEDS: Folic Acid 1 MG Tablet 0.5 MG PO ×2 (08:48→17:47)
[2022-12-03] MEDS: Calcium Carbonate 500 MG Tablet PO (08:51)
[2022-12-03] MEDS: Gabapentin 100 MG Capsule 200 MG PO ×2 (08:51→17:47)
[2022-12-03] MEDS: Cholecalciferol (Vit D3) 125 MCG CAPSULE (5,000 UNITS) PO (08:53)
--- NOTE | 2022-12-03 10:38 | PCM.PN.REN ---
Subjective Subjective Patient resting in bed. at bedside. No overnight events. Reports feeling and breathing better today. On nasal cannula. Objective Data Objective Data Vital Signs: Vital Signs Temp Pulse Resp BP Pulse Ox O2 Del Method O2 Flow Rate 99.2 F H 89 18 100/52 L 95 Nasal Cannula 2 12/03/22 09:00 12/03/22 10:00 12/03/22 10:00 12/03/22 10:00 12/03/22 10:00 12/03/22 10:00 12/03/22 10:00 FiO2 43 12/03/22 07:04 Oxygen Flow Rate (L/min) 2 Oxygen Delivery Method Nasal Cannula Weight: 68.3 kg Body Mass Index (BMI) 22.8 Intake & Output: Intake and Output for Last 24 Hours 12/01/22 12/02/22 12/03/22 23:59 23:59 23:59 Intake Total 625.00 / 625.00 1565 / 1565 640 / 640 Output Total 755 / 755 1775 / 2025 400 / 400 Balance -130.00 / -130.00 -210 / -460 240 / 240 Lab / Micro Data 12/03/22 04:15 12/03/22 04:15 Labs: Laboratory Results - last 24 hr 12/01/22 10:55: Crossmatch See Detail 12/01/22 16:53: POC Glucose 289 H 12/02/22 10:25: POC Glucose 205 H 12/02/22 14:03: POC Glucose 71 L 12/02/22 16:23: POC Glucose 97 12/02/22 21:20: POC Glucose 148 H 12/02/22 : Hep Bs Antigen Non-Reactive 12/03/22 04:15: WBC 25.0 H, RBC 3.20 L, Hgb 9.4 L, Hct 28.2 L, MCV 88.1, MCH 29.4, MCHC 33.3, RDW Std Deviation 47.0 H, RDW Coeff of Russell 14.6, Plt Count 222, MPV 11.2, Immature Gran % (Auto) 2.100 H, Neut % (Auto) 90.9 H, Lymph % (Auto) 1.5 L, [place] % (Auto) 1.5, Eos % (Auto) 3.8, Baso % (Auto) 0.2, Absolute Neuts (auto) 22.7 H, Absolute Lymphs (auto) 0.38 L, Nucleated RBC % 0, Sodium 134 L, Potassium 4.0, Chloride 104, Carbon Dioxide 20.0 L, Anion Gap 10, BUN 76 H, Creatinine 4.18 H, Estim Creat Clear Calc 13.30, Est GFR (MDRD) Af Amer 18 L, Est GFR (MDRD) Non-Af 15 L, BUN/Creatinine Ratio 18.2, Glucose 169 H, Calcium 7.2 L, Total Bilirubin 0.30, AST 31, ALT 91 H, Alkaline Phosphatase 305 H, Total Protein 5.0 L, Albumin 1.7 L, Globulin 3.3, Albumin/Globulin Ratio 0.5 L, Random Vancomycin 18.3 H, Hep Bs Antigen Non-Reactive 12/03/22 08:10: POC Glucose 173 H Micro: Microbiology 11/29/22 09:55 Blood Culture (Wb) - Anticubital Right Blood Culture - Preliminary No growth in 48 hours. 11/29/22 10:10 Blood Culture (Wb) - Anticubital Left Blood Culture - Preliminary No growth in 48 hours. 11/29/22 08:50 Mucosa - Nasopharyngeal Respiratory Panel (PCR) - Final 11/29/22 10:40 Urine, Random Legionella Antigen - Final 11/29/22 10:40 Urine, Random Streptococcus pneumoniae Antigen (M - Final 11/28/22 00:06 Nasal Secretion SARS-CoV-2 Antigen (Rapid) - Final Radiography Diagnostic Testing: Radiology Impression Chest X-Ray 12/02/22 13:49 IMPRESSION: No significant change. Electronically Signed: Lawrence Freed MD at 15:11 EDT , Physical Exam Narrative Alert and oriented, no apparent distress S1, S2, RRR Lung sounds diminished breath sounds with scattered rhonchi Abdomen soft, nontender 1+ pitting edema bilateral legs Temporary HD catheter right IJ dressing clean, dry and intact Assessment & Plan Assessment/Plan (1) Acute kidney injury: PLAN: Renal function is improving, he makes urine, electrolytes are fine, no significant acidosis. Patient does not need dialysis today (2) 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 1 diabetes mellitus: PLAN: - History of CKD stage IV with underlying GFR ~20ml/min. Followed by Dr. Townsend. Patient previously refused to have AV access for dialysis to be placed. There was long conversation with patient, and his daughters and patient now in agreement with CH[employer] SALES REPRESENTATIVE. Patient admitted non-STEMI, DKA and hypertensive emergency. SCr 4.20 mg/dL on admission (11/28)--> SCr peaked 4.56, bicarb 17, potassium 5.1 on 12/02 with decline in respiratory status put on BiPAP, he did receive dose of Lasix 40 mg IV with no improvement in respiratory status. Patient in agreement with moving forward with hemodialysis. Appreciate surgery placing non-tunneled temporary HD catheter 12/02. Patient underwent hemodialysis yesterday over 2 hours and tolerated 1 L fluid removal. To have dialysis again today over 2.5 hours and attempt 1 to 2 L fluid removal as patient/blood pressure tolerates. Patient is off Plavix and possibly planning tunneled HD catheter early next week. -Acute respiratory failure multifactorial from decompensated heart failure, underlying valvular heart disease/aortic stenosis and possible pneumonia along with COPD. Currently on antibiotics and receiving breathing treatments. Lisinopril on hold. - NSTEMI; cardiology following. not clear if cardiac catheterization to be performed during inpatient hospitalization. Worsening anemia, off heparin drip. -Blood pressures on low side but stable, currently on Lopressor 12.5 mg twice daily and amlodipine 5 mg daily. Recommend holding these meds mornings of dialysis.
[2022-12-03] MEDS: 0.9% Normal Saline 1,000 ML IV.SOLN. 1000 ML OPERA.SITE (11:02)
[2022-12-03] MEDS: PureFlow B 3K Dialysis Soln 1 BAG 6 BAG PF (11:02)
[2022-12-03] MEDS: Acetaminophen 325 MG Tablet 650 MG PO (12:03)
[2022-12-03 12:40] LABS: Bedside Glucose 88 mg/dL (74-106)
[2022-12-03] MEDS: Heparin 10,000 UNITS/10 ML Vial IV (13:02)
--- NOTE | 2022-12-03 13:08 | PHA.PHARE_ITS ---
Consult Antibiotic Management Pharmacy has been consulted to manage selected antiobiotic: Vancomycin Type of Intervention Type of Consult: Follow-up Prior Doses of Antibiotics Prior Doses of Antibiotics Received/Current Regimen: Received 1750mg iv x 1 on 12.02.22. Labs Labs: Sodium 134 mmol/L (136-145) L 12/03/22 04:15 Potassium 4.0 mmol/L (3.5-5.1) 12/03/22 04:15 Chloride 104 mmol/L (98-107) 12/03/22 04:15 Carbon Dioxide 20.0 mmol/L (21.0-32.0) L 12/03/22 04:15 Anion Gap 10 (5-15) 12/03/22 04:15 BUN 76 mg/dL (7-18) H 12/03/22 04:15 Creatinine 4.18 mg/dL (0.70-1.30) H 12/03/22 04:15 Est GFR (MDRD) Af Amer 18 mL/min (>60) L 12/03/22 04:15 Est GFR (MDRD) Non-Af 15 mL/min (>60) L 12/03/22 04:15 BUN/Creatinine Ratio 18.2 RATIO (10-20) 12/03/22 04:15 Glucose 169 mg/dL (74-106) H 12/03/22 04:15 Random Vancomycin 18.3 ug/mL (0.0-15.0) H 12/03/22 04:15 Microbiology Microbiology: Microbiology 11/29/22 09:55 Blood Culture (Wb) - Anticubital Right Blood Culture - Preliminary No growth in 48 hours. 11/29/22 10:10 Blood Culture (Wb) - Anticubital Left Blood Culture - Prelimi nary No growth in 48 hours. 11/29/22 08:50 Mucosa - Nasopharyngeal Respiratory Panel (PCR) - Final 11/29/22 10:40 Urine, Random Legionella Antigen - Final 11/29/22 10:40 Urine, Random Streptococcus pneumoniae Antigen (M - Final 11/28/22 00:06 Nasal Secretion SARS-CoV-2 Antigen (Rapid) - Final Dosing Weight Weight used for dosin.6 kg Estimated Creatinine Clearance Estimated Creatinine Clearance: dialysis Goal Trough Goal Trough: 15-20 mcg/mL Pharmacy Plan for Drug Dosing Pharmacy Plan for Drug Dosing: Random level this AM 18.3 and therapeutic. Getting dialysis today. A one time 500mg iv post dialysis ordered. Further dosing based on dialysis schedule. Pharmacy Service will continue to monitor and adjust dosing as required.
[2022-12-03] MEDS: Vancomycin IV 500 MG/100 ML BAG 100 MG IV (14:42)
[2022-12-03] MEDS: DiphenhydrAMINE 50 MG/ML Syringe 25 MG IV (17:47)
[2022-12-03 18:11] LABS: Bedside Glucose 248 mg/dL (74-106)
[2022-12-03] MEDS: Heparin Injection (Vial) 5,000 UNIT/ML VIAL 5000 UNIT SC (21:16)
[2022-12-03] MEDS: Atorvastatin Calcium 40 MG Tablet PO (21:17)
[2022-12-03 21:52] LABS: Bedside Glucose 234 mg/dL (74-106)
[2022-12-04] VITALS (15 sets, daily range): BP systolic 83–120; BP diastolic 30–60; PULSE 78–99; RESP 17–23; TEMP 36.6–37.4; O2SAT 80–100; BMI 22.8
--- NOTE | 2022-12-04 | FLU_PTH ---
PATIENT: DEX VALLE LOC: [facility] U#:[id number] AGE/SX: 77/M ROOM: [facility] RE11/28/[address]: Dr. Channing Plunkett DO : 1945 BED: 1 DIS: 12/12/2022 SPEC #: [id number] RECD: 12/05/22 08:05 STATUS: KATI REQ #: [id number] AMBER: 12/04/22 00:[address]: Suzette Genao DEPT: CYTOLOGY RECD BY: Fina Vera ENTERED: 12/05/22 08:06 SP TYPE: Fluid OTHR DR: MD Dr. Remi Lozano MD Dr. Bruce Arthur, MD Dr. Derek Brown, DO Dr. Efewongbe Oleghe, MD Dr. Farouk Belal, MD Dr. Joseph Agyepong, MD Dr. Jayaprakas Dasari, MD Dr. Lee Ann Baggott, MD Dr. Michael Bortz, MD Dr. Miriam Zidehsarai, DO Dr. Natthavat Tanphaichitr, MD Dr. Olga Voroshilova, MD Dr. Prakash Chand, MD Dr. Preti Chaturvedi, MD Dr. Robert Leininger, MD Dr. Rupesh Raina, MD Dr. Tanmay Panchabhai, MD Dr. Vinh Nguyen, MD Christina Muller, NP-C Shannon Trzcinski, NP-C Tissues: Pleural fluid, NOS Procedures: Special Stain Group II Surgery Specimen Level IV Cytospin Fluid HEADER OPERATION: Ultrasound guided thoracentesis PRE-OP DIAGNOSIS: Pleural effusion TISSUE SUBMITTED: Thoracentesis fluid for cytology DIAGNOSIS CYTOLOGY Thoracentesis fluid for cytology (cytospin and cell block): Negative for malignant cells. See comment. SJ:christiano 12/08/2022 COMMENT Clinical correlation and appropriate follow up are necessary. CYTOLOGY STUDY Slides are reviewed. CYTOLOGY GROSS Received is 80 ml of light nahun cloud fluid labeled with the patient's name and and designated per the requisition as pleural fluid. Submitted for cytology preparation including cell block. / cc 12/05/22 TC:5 CPT: 53625, 68124
[2022-12-04 04:11] LABS: Absolute Lymphocyte Count 0.89 X10^3/uL (0.83-4.51); Absolute Neutrophil Count 28.3 X10^3/uL (2.0-7.7); Basophil# 0.07 X10^3/uL; Basophil% 0.2 % (0-1); Eosinophil# 1.02 X10^3/uL; Eosinophils% 3.2 % (0-5); Hematocrit 25.8 % (40-54); Hemoglobin 8.6 g/dL (13.0-16.5); Lymphocyte # 0.89 X10^3/ul (0.83-4.51); Lymphocyte % 2.8 % (19-41); Mean Corp Hgb Conc 33.3 g/dL (32-36); Mean Corpuscular Hgb 29.7 pg (27.0-32.0); Mean Platelet Vol. 11.5 fl (6.2-12.0); Monocyte# 0.75 X10^3/uL; Monocyte% 2.4 % (0-10); NRBC Flagged by Analyzer 0 % (0-5); Neutrophil # 28.27 X10^3/uL (2.7-7.7); Neutrophil % 88.7 % (47-70); POSITIVE COUNT YES; POSITIVE DIFFERENTIAL YES; Platelet Count 185 K/mm3 (150-450); RBC Distribution Width CV 14.6 % (11.6-14.6); RBC Distribution Width SD 47.4 fl (35.1-43.9); White Blood Count 31.9 K/mm3 (4.4-11.0)
[2022-12-04 04:13] LABS: Differential Indicated SCAN CRITERIA MET
[2022-12-04 04:33] LABS: ALB/GLOB Ratio 0.5 RATIO (0.9-2.4); AST(SGOT) 18 U/L (15-37); Alanine Aminotransfer ALT/SGPT 59 U/L (16-61); Albumin, Serum 1.5 g/dL (3.2-5.0); Alkaline Phosphatase 329 U/L (45-117); Anion Gap 10 (5-15); BUN 65 mg/dL (7-18); BUN/Creat Ratio 16.9 RATIO (10-20); Calcium,Total 7.2 mg/dL (8.5-10.1); Chloride 104 mmol/L (98-107); Creatinine, Serum 3.84 mg/dL (0.70-1.30); EST Glomerular Filtration Rate 16 mL/min (>60); Est Glom Filt Rate - Afr Amer 20 mL/min (>60); Estimated Creatinine Clearance 14.87 ml/min; Globulin 2.9 g/dL (2.2-4.2); Glucose 265 mg/dL (74-106); Potassium 4.2 mmol/L (3.5-5.1); Protein, Total 4.4 g/dL (6.4-8.2); Sodium Level 135 mmol/L (136-145)
--- NOTE | 2022-12-04 06:13 | CT_ITS ---
EXAM: CT CHEST WITHOUT INTRAVENOUS CONTRAST CLINICAL INDICATION: Leukocytosis, pneumonia TECHNIQUE: Helically acquired images were obtained of the chest without intravenous contrast. This CT exam was performed using one or more of the following dose reduction techniques: automated exposure control, adjustment of the mA and/or kV according to patient size, and/or use of iterative reconstruction technique. RADIATION DOSE: CTDIvol = 13.43 mGy, DLP = 520.38 mGy-cm COMPARISON: CT chest 06/03/2022 FINDINGS: LUNGS AND PLEURAL SPACES: Moderate pleural effusions, with consolidations in the lingula and bilateral lower lobes. Mild emphysematous changes. No mass. No pneumothorax. HEART: Coronary artery calcifications. Heart size is normal. No pericardial effusion. MEDIASTINUM: Unremarkable. No mediastinal or hilar adenopathy. Esophagus is unremarkable. No hiatal hernia. THYROID: Unremarkable. No thyroid lesions. BONES/JOINTS: Degenerative changes of the spine. No suspicious lytic or blastic abnormality. VASCULATURE: Severe atherosclerotic calcifications of the thoracic aorta without aneurysm. CT/Chest without Contrast IMPRESSION: Moderate pleural effusions, with consolidations in the lingula and bilateral lower lobes. This likely indicates pneumonia. Electronically Signed: Reji Miles MD at 7:21 EDT ,
--- NOTE | 2022-12-04 06:14 | PCM.PN.HOSP ---
Reason for Visit Reason for Visit: Diagnoses Sepsis, unspecified organism (11/28/22) Anemia, unspecified (11/28/22) Type 1 diabetes mellitus with ketoacidosis without coma (11/28/22) Type 1 diabetes mellitus with diabetic chronic kidney disease (11/28/22) Type 1 diabetes mellitus with hyperglycemia (11/28/22) Hyperkalemia (11/28/22) Non-ST elevation (NSTEMI) myocardial infarction (11/28/22) Nonrheumatic aortic (valve) stenosis (11/28/22) Pneumonia, unspecified organism (11/28/22) Acute respiratory failure with hypoxia (11/28/22) Acute kidney failure, unspecified (11/28/22) Chronic kidney disease, stage 4 (severe) (11/28/22) Dyspnea, unspecified (11/28/22) Severe sepsis without septic shock (11/28/22) Other specified abnormalities of plasma proteins (11/28/22) Subjective Subjective Patient overnight with no acute events per self and per nursing report. Patient per discussion with nephrology only tolerated last 1 L removal from dialysis but otherwise it had gone without issue. He notes feeling improved and less dyspneic off oxygen currently but still feeling poorly and cannot exactly give a reason. Discussed the fact that his white count again went up and unfortunately the day prior he did have what appeared to be red man syndrome with de-escalation off of vancomycin therefore decision for CT of the chest to be obtained to which she was amenable and resulted this AM with moderate pleural effusions with consolidations in the lingula and bilateral lower lobes therefore given size of effusions ultrasound-guided thoracentesis with lab studies for diagnostic assessment requested and pending at this time. Patient denies fevers, chills, nausea, emesis, abdominal pain, chest pain or worsened or increased dyspnea. Objective Data Objective Data Vital Signs: Vital Signs Temp Pulse Resp BP Pulse Ox O2 Del Method O2 Flow Rate 98.4 F 92 20 H 112/55 L 93 Nasal Cannula 2 12/04/22 01:00 12/04/22 01:00 12/04/22 01:00 12/04/22 01:00 12/04/22 01:00 12/04/22 04:00 12/04/22 04:00 FiO2 43 12/03/22 07:04 Oxygen Flow Rate (L/min) 2 Oxygen Delivery Method Nasal Cannula Weight: 150 lb 12.739 oz Body Mass Index (BMI) 22.8 Intake & Output: Intake and Output for Last 24 Hours 12/02/22 12/03/22 12/04/22 23:59 23:59 23:59 Intake Total 1565 / 1565 1380 / 1430 100 / 100 Output Total 177 / 2024 1450 / 1450 Balance -210 / -460 -70 / -20 100 / 100 Lab / Micro Data 12/04/22 04:05 12/04/22 04:05 Labs: Laboratory Results - last 24 hr 12/03/22 08:10: POC Glucose 173 H 12/03/22 12:24: POC Glucose 88 12/03/22 17:44: POC Glucose 248 H 12/03/22 21:13: POC Glucose 234 H 12/04/22 04:05: WBC 31.9 H*, RBC 2.90 L, Hgb 8.6 L, Hct 25.8 L, MCV 89.0, MCH 29.7, MCHC 33.3, RDW Std Deviation 47.4 H, RDW Coeff of Russell 14.6, Plt Count 185, MPV 11.5, Immature Gran % (Auto) 2.700 H, Neut % (Auto) 88.7 H, Lymph % (Auto) 2.8 L, [place] % (Auto) 2.4, Eos % (Auto) 3.2, Baso % (Auto) 0.2, Absolute Neuts (auto) 28.3 H, Absolute Lymphs (auto) 0.89, Nucleated RBC % 0, Diff Path Review August, Sodium 135 L, Potassium 4.2, Chloride 104, Carbon Dioxide 21.0, Anion Gap 10, BUN 65 H, Creatinine 3.84 H, Estim Creat Clear Calc 14.87, Est GFR (MDRD) Af Amer 20 L, Est GFR (MDRD) Non-Af 16 L, BUN/Creatinine Ratio 16.9, Glucose 265 H, Calcium 7.2 L, Total Bilirubin 0.30, AST 18, ALT 59, Alkaline Phosphatase 329 H, Total Protein 4.4 L, Albumin 1.5 L, Globulin 2.9, Albumin/Globulin Ratio 0.5 L Micro: Microbiology 11/29/22 09:55 Blood Culture (Wb) - Anticubital Right Blood Culture - Preliminary No growth in 48 hours. 11/29/22 10:10 Blood Culture (Wb) - Anticubital Left Blood Culture - Preliminary No growth in 48 hours. 11/29/22 08:50 Mucosa - Nasopharyngeal Respiratory Panel (PCR) - Final 11/29/22 10:40 Urine, Random Legionella Antigen - Final 11/29/22 10:40 Urine, Random Streptococcus pneumoniae Antigen (M - Final 11/28/22 00:06 Nasal Secretion SARS-CoV-2 Antigen (Rapid) - Final Physical Exam Narrative Physical Examination: General: Awake, alert, oriented x 3 and cooperative, seated upright in the ICU bed, fatigued, no acute distress but reports feeling less well than day prior. Skin: Normal color, normal turgor, no icterus, no cyanosis except occasional very staged ecchymoses to the extremities. HEENT: AT/NC, EOMI, PERRLA, MMM. Lungs: Diminished, currently transition to room air, greater bases, mildly decreased effort but despite findings on CT no obvious rales, rhonchi or wheezing. Heart: Currently regular rate and rhythm; no gallop, rub audible, + SM. Abdomen: Soft, NTTP, ND, distant normal BS. Extremities: No cyanosis, clubbing, or edema. Neurological: Patient awake, alert, oriented as noted, cognitive function intact; pupils equally reactive to light and accommodation, cranial nerves grossly normal, moving all 4 extremities, no focal deficits, strength severely global decrease secondary to acute presentation. Psychiatric: Affect appears fatigued, ill-appearing, no acute evidence of depressive or anxiety feelings. Assessment & Plan Assessment/Plan (1) Acute respiratory failure with hypoxia: PLAN: Plan The patient is a 77 y/o M w/ PMHx: Chronic anemia/Fe deficiency anemia, BPH, Prostate CA, HTN, HLD, NIKHIL, COPD, Former tobacco use, Diabetes mellitus type II, CKD stage IV who presents to the [facility] ED on 12/01/22 with history of dyspnea, worse with exertion with productive green sputum as well as chills in addition to polyuria and polydipsia prompting eventual ED evaluation. #1. Acute Hypoxic and Hypercarbic Respiratory Failure, multifactorial, secondary to Acute Combined Acute Systolic/Diastolic CHF Exacerbation complicated by underlying valvular heart disease/aortic stenosis and Concurrent bilateral lower lobe and lingular pneumonia as well as complicated by moderate pleural effusions as well as underlying COPD history: Patient initially admitted to the ICU on BiPAP but given improvement transitioned to PCU status, 11/30/2022 chest x-ray with mildly decreased bilateral pneumonia evidence, ECHO w/ EF 4045%, SANDEEP calculated 0.98 cm?, aortic maximal pressure gradient 33.1 mmHg, aortic mean pressure gradient 19.8 mmHg, moderate to severe AV stenosis/calcific, grade 1 diastolic dysfunction with recommendation for evaporator repairer for dobutamine stress echo to assess severity of AV stenosis with no prior comparison, rapid SARS COVID and influenza antigen negative, full respiratory panel negative, negative Legionella and strep pneumonia antigens, blood culture x2 pending (11/29/22), initially maintained on IV Rocephin as well as IV of azithromycin (start 11/29/22) with plan 7 days of antibiotic therapy; however, 12/02/22 worsened status overnight and increasing WBC with L shift thus transitioned per discussion with Pulmonary medicine to IV Vanc and IV Zosyn therapy but 12/03/22 unfortunately red man syndrome presentation with d/c IV vanc-->12/04/22 Infectious disease abx change to Meropenem, ATC DuoNeb therapy, PRN albuterol, continue aspirin, statin, plavix and metoprolol added per Cardiology. Recommendation for diuretic challenge now that DKA has resolved this patient did require initial IV fluid administration but given worsened overnight into 12/02/2022 AM with high flow need--> BIPAP lasix 40 mg IV x 1 administered, worsened lab appearance, 12/02/22 transitioned to the ICU. Surgery placed temporary access and HD initiated. Plavix held temporarily for line. Bld Cx x 2 obtained 12/02/22 given leukocytosis, concerns per surgery. If cultures remain negative they have noted intention to place tunnelled catheter. 12/04/22 maintained on room air but CBC w/ WBC 31.9 with L shift, CT chest obtained w/ noted BL lower lobe/lingula consolidation and BL moderate effusions with request for thoracentesis with diagnostic testing and ID consultation (change to meropenem 12/04/22). #2. Acute NSTEMI: Presentation EKG with sinus rhythm with no acute evidence of ischemia, initial troponin 11/28/2022 301 trending upward with last 11/30/2019 97198, 11/29/2022 ECHO w/ EF 4045%, SANDEEP calculated 0.98 cm?, aortic maximal pressure gradient 33.1 mmHg, aortic mean pressure gradient 19.8 mmHg, moderate to severe AV stenosis/calcific, grade 1 diastolic dysfunction with recommendation for evaporator repairer for dobutamine stress echo to assess severity of AV stenosis with no prior comparison, initially maintained on heparin drip which was held for HD access placement and transitioned to SC following. Cardiology consulted, following and initially planned catheterization 12/01/22 however concern for low hgb and ongoing issues with overload eventually started on HD as noted this was postponed. Maintained on aspirin, statin, plavix and metoprolol added per Cardiology but given planned tunnelled catheter for HD planned once Bld Cx negative, plavix currently held, add back as soon as able. #3. DKA: Hemoglobin A1c 11/29/2022 9.2% increased from most recently noted remotely 01/04/2018 8.5%, patient initially maintained on DKA protocol with eventual anion gap closure x2 and normalization of bicarb with insulin drip transitioned to Lantus with concurrent insulin sliding scale with Accu-Chek, will continue ADA diet with overlapping insulin sliding scale and scheduled, encourage appropriate lifestyle and diet changes, nutrition consulted. 12/02/22 increased BS, decompensated as noted above, administered increased short acting x 1, improved. Will continue to trend and alter insulin regimen as needed. #4. Acute kidney injury on CKD stage IV: Secondary to DKA presentation. Admission BUN/Cr 66/4.20, prior baseline creatinine noted to be primarily 3.0-3.3, 12/01/22 BUN/Cr 66/3.67-->12/02/22 BUN/Cr 86/4.56-->12/04/22 BUN/Cr 65/3.84, improved. Nephrology consulted, Dr. Townsend and AVF recommended in preparation for future HD however patient has declined but agreed to temporarily HD catheter initially but following more discussions amenable to event AVF outpatient. Worsening status 12/02/22, temporary access placed and patient started on HD. Pending Bld Cx x 2 as noted above and if negative then Surgery will place tunnelled catheter. Plavix temporarily on hold for this procedure. 12/04/22 planned on repeat HD until 12/05/22 potentially. #5. Hypertensive Urgency: Initial presentation blood pressures 190s over 70s to 100s, suspected to have contributed to acute presentation #1, currently maintained only on amlodipine, metoprolol added per Cardiology. #6. Acute hyponatremia, multifactorial given #1 potentially initially hypovolemic however eventually following hydration suspected of enteral volume overload: Admission sodium 124, as noted judiciously hydrated given DKA however now concern for possibly fluid overload with possible initiation of diuretic challenge per pulmonary recommendation, 12/01/2022 sodium 135-->12/04/22 Na 135. #7. Acute on Chronic normocytic/iron deficiency anemia: Admission hemoglobin 9.8, baseline prior to this primarily 8-9, 12/01/2022 7.2 and given Cardiology concern for proceeding with catheterization with Hgb at that level given presentation 1 u PRBC administered, 12/04/22 CBC w/ Hgb 8.6. #8. Hyperlipidemia: We will continue patient on statin therapy. #9. Former tobacco use: Encourage continued tobacco cessation. #10. BPH: We will continue patient finasteride home regimen #11. NIKHIL: BiPAP normally q HS, as noted given worsening status transitioned to high flow->BIPAP continuous. #12. DVT prophylaxis: Heparin drip discontinued, heparin SC held given planned access placement for HD start, restart 12/03/22 as long as appropriate. #13. CODE STATUS: Full Code. Charges/Coding Visit Charges Inpatient E&M: 64568 Subs Hosp L3
--- NOTE | 2022-12-04 07:18 | PCM.PN.INT ---
Assessment & Plan Assessment/Plan (1) Acute respiratory failure with hypoxia: PLAN: Plan RECOMMENDATIONS: 1. Continue to monitor H&H. Transfuse if hemoglobin drops below 7 g/dL. 2. Continue with dialysis per nephrology recommendations. 3. Continue empiric broad-spectrum antimicrobials. 4. Hold Plavix for now. 5. Continue PPI therapy. 6. Continue scheduled bronchodilators. 7. Encourage incentive spirometer use and mobilize patient as tolerated. IMPRESSIONS: 1. Acute hypoxemic respiratory failure Clinical concern for pulmonary edema in the setting of decompensated heart failure/aortic valve stenosis, along with superimposed pneumonia. IV antimicrobials were initiated. However, cultures have been negative thus far. At this time, would recommend additional medical therapy per cardiology recommendations. The patient would also likely benefit from volume optimization. Continue attempts at volume optimization through hemodialysis, per nephrology recommendations. Continue to wean supplemental oxygen to maintain saturations at or above 90%. Encourage incentive spirometer use and mobilize patient as tolerated. 2. Acute on chronic kidney disease Nephrology is following to assist with medical management. Continue hemodialysis support per nephrology recommendations. 3. Troponin elevation/aortic valve stenosis Cardiology is following to assist with medical management. Unclear if cardiac catheterization is going to be performed during inpatient hospitalization. 4. Anemia The patient has had worsening anemia over the course of his hospitalization. Transfuse if hemoglobin drops below 7 g/dL. Continue PPI therapy as ordered. 5. History of hypertension/chronic tobacco dependency/questionable sleep apnea Complicates care, management, recovery and prognosis. Continue supportive care as noted above. This note was generated with [employer] dictation software. It may contain incorrect words, spelling, and punctuation that were not noted in checking the note before signing. Subjective Subjective The patient was seen and examined at the bedside this morning. Events from the last 24 hours have been reviewed. The patient is currently afebrile, hemodynamically stable and maintaining appropriate oxygen saturations on room air. The patient is documented to be overall net +3.1 L for the hospitalization. White count remains elevated at 32,000. The patient did report the presence of a nonproductive cough this morning. He denied any resting shortness of breath. Objective Data Objective Data The patient's most recent lab work, culture data and imaging studies have all been personally reviewed. Surface echocardiogram demonstrated a mildly dilated LV with an ejection fraction of 40 to 45%. Moderate to severe aortic stenosis was noted. Respiratory viral panel was negative. Strep and urine Legionella antigens were negative. Blood cultures have not demonstrated any growth to date. Vital Signs: Vital Signs Temp Pulse Resp BP Pulse Ox O2 Del Method O2 Flow Rate 98.3 F 96 23 H 112/47 L 96 Room Air 2 12/04/22 07:00 12/04/22 07:00 12/04/22 07:00 12/04/22 07:00 12/04/22 07:00 12/04/22 07:00 12/04/22 06:00 FiO2 43 12/03/22 07:04 Oxygen Flow Rate (L/min) 2 Oxygen Delivery Method Room Air Weight: 150 lb 12.739 oz Body Mass Index (BMI) 22.8 Intake & Output: Intake and Output for Last 24 Hours 12/02/22 12/03/22 12/04/22 23:59 23:59 23:59 Intake Total 1565 / 1565 1380 / 1430 100 / 100 Output Total 1775 / 2025 1450 / 1450 200 / 200 Balance -210 / -460 -70 / -20 -100 / -100 Lab / Micro Data Attestation: I reviewed the patient's lab results. 12/04/22 04:05 12/04/22 04:05 Labs: Laboratory Results - last 24 hr 12/03/22 08:10: POC Glucose 173 H 12/03/22 12:24: POC Glucose 88 12/03/22 17:44: POC Glucose 248 H 12/03/22 21:13: POC Glucose 234 H 12/04/22 04:05: WBC 31.9 H*, RBC 2.90 L, Hgb 8.6 L, Hct 25.8 L, MCV 89.0, MCH 29.7, MCHC 33.3, RDW Std Deviation 47.4 H, RDW Coeff of Russell 14.6, Plt Count 185, MPV 11.5, Immature Gran % (Auto) 2.700 H, Neut % (Auto) 88.7 H, Lymph % (Auto) 2.8 L, [place] % (Auto) 2.4, Eos % (Auto) 3.2, Baso % (Auto) 0.2, Absolute Neuts (auto) 28.3 H, Absolute Lymphs (auto) 0.89, Nucleated RBC % 0, Diff Path Review May , Sodium 135 L, Potassium 4.2, Chloride 104, Carbon Dioxide 21.0, Anion Gap 10, BUN 65 H, Creatinine 3.84 H, Estim Creat Clear Calc 14.87, Est GFR (MDRD) Af Amer 20 L, Est GFR (MDRD) Non-Af 16 L, BUN/Creatinine Ratio 16.9, Glucose 265 H, Calcium 7.2 L, Total Bilirubin 0.30, AST 18, ALT 59, Alkaline Phosphatase 329 H, Total Protein 4.4 L, Albumin 1.5 L, Globulin 2.9, Albumin/Globulin Ratio 0.5 L Micro: Microbiology 11/29/22 09:55 Blood Culture (Wb) - Anticubital Right Blood Culture - Preliminary No growth in 48 hours. 11/29/22 10:10 Blood Culture (Wb) - Anticubital Left Blood Culture - Preliminary No growth in 48 hours. 11/29/22 08:50 Mucosa - Nasopharyngeal Respiratory Panel (PCR) - Final 11/29/22 10:40 Urine, Random Legionella Antigen - Final 11/29/22 10:40 Urine, Random Streptococcus pneumoniae Antigen (M - Final 11/28/22 00:06 Nasal Secretion SARS-CoV-2 Antigen (Rapid) - Final Radiography Diagnostic Testing: Radiology Impression Chest X-Ray 12/02/22 07:55 IMPRESSION: Increased left lower lung infiltrate and small left pleural effusion. Electronically Signed: Lawrence Freed MD at 10:37 EDT , Chest X-Ray 12/02/22 13:49 IMPRESSION: No significant change. Electronically Signed: Lawrence Freed MD at 15:11 EDT , Physical Exam Const alert, oriented x3 and no apparent distress General Appearance: cooperative HEENT normocephalic and head/scalp atraumatic Eyes PERRL, EOMs intact bilaterally and conjunctivae normal Neck supple General: trachea midline Chest inspection of chest normal Resp normal respiratory effort Auscultation: diminished lung sounds; Negative for rales, rhonchi or wheezes Cardio regular rate and regular rhythm Heart Sounds: murmur systolic GI normal to inspection, nondistended, normoactive bowel sounds Extremity no clubbing, cyanosis or edema Skin no rashes or lesions noted Neuro CN's II-XII intact bilaterally, moves all extremities and no focal motor deficits Psych Mood & Affect: flat affect Charges/Coding Visit Charges Inpatient E&M: 40230 Subs Hosp L2
[2022-12-04] MEDS: Ipratropium/Albuterol Sulfate 3 ML AMPUL.NEB INHALATION ×3 (07:34→19:05)
[2022-12-04] MEDS: Insulin Lispro 100 UNIT/ML INSULN.PEN SC ×2 (07:50→11:04)
[2022-12-04] MEDS: Multivitamins,Therapeutic Tablet 1 TABLET PO (07:51)
[2022-12-04] MEDS: Aspirin E.C. 81 MG Tablet PO (07:51)
[2022-12-04] MEDS: Ferrous Sulfate 325 MG Tablet PO (07:51)
[2022-12-04] MEDS: Folic Acid 1 MG Tablet 0.5 MG PO ×2 (07:51→16:36)
[2022-12-04] MEDS: Insulin Lispro 100 UNIT/ML INSULN.PEN 10 UNIT SC ×3 (07:51→16:35)
[2022-12-04] MEDS: Multivitamin (Healthy Eyes) Capsule 1 CAP PO (07:52)
[2022-12-04] MEDS: Docusate Sodium 100 MG Capsule 200 MG PO ×2 (07:52→21:08)
[2022-12-04] MEDS: Magnesium Chloride 64 MG Delay Rel.Tablet 128 MG PO (07:53)
[2022-12-04] MEDS: Metoprolol Tartrate 25 MG Tablet 12.5 MG PO ×2 (07:53→21:08)
[2022-12-04] MEDS: amLODIPine 5 MG Tablet PO (07:54)
[2022-12-04] MEDS: Heparin Injection (Vial) 5,000 UNIT/ML VIAL 5000 UNIT SC (07:54)
[2022-12-04] MEDS: Finasteride 5 MG Tablet PO (07:54)
[2022-12-04] MEDS: Cholecalciferol (Vit D3) 125 MCG CAPSULE (5,000 UNITS) PO (07:54)
--- NOTE | 2022-12-04 08:03 | US_ITS ---
PROCEDURE: Ultrasound guided thoracentesis. DATE OF EXAMINATION: 12/04/2022. INDICATION: Male, 77 years old. Pleural effusions. PHYSICIAN: Erasmo To DO. TECHNIQUE: The risks, benefits, and alternatives to the procedure were explained to the patient. The specific risks of bleeding, infection, and specific risk of pneumothorax were detailed and accepted. Witnessed informed consent was obtained. The bilateral pleural spaces were assessed with ultrasound. There is a small to moderate left-sided pleural effusion. There is a small right-sided pleural effusion that does not appear to be large enough to drain at this time. A suitable site for drainage was selected in the left posterior chest wall and the skin was marked. The skin were cleaned and prepped in the usual sterile fashion. Using ultrasound guidance, the left pleural cavity was accessed with a 5-Gibraltarian paracentesis needle/catheter system. The trocar was removed. A total of 650 ml of clear straw-colored fluid was removed from the left pleural cavity. A 100 cc sample was sent to the laboratory for additional testing. The catheter was removed and a sterile dressing was applied. The procedure was well tolerated. Immediate post ultrasound imaging demonstrated no complications and resolution of the left pleural effusion. An immediate post thoracentesis chest x-ray demonstrated no sizable pneumothorax. The patient was returned to the floor in stable condition. US/Thoracentesis W US IMPRESSION: Ultrasound guided diagnostic and therapeutic paracentesis of a left pleural effusion. Small right-sided pleural effusion is also present although this does not appear to be large enough to drain at this time. Ultrasound-guided thoracentesis can be obtained if increase in size of the right-sided pleural effusion on follow-up chest x-ray imaging. Electronically Signed: Erasmo To DO at 14:58 EDT ,
[2022-12-04] MEDS: Gabapentin 100 MG Capsule 200 MG PO ×3 (08:07→17:05)
[2022-12-04] MEDS: 0.9% Saline Lock 10 ML Syringe IV ×2 (08:08→09:21)
[2022-12-04] MEDS: Calcium Carbonate 500 MG Tablet PO (08:08)
[2022-12-04 08:13] LABS: Bedside Glucose 339 mg/dL (74-106)
[2022-12-04] MEDS: DiphenhydrAMINE 50 MG/ML Syringe 25 MG IV (09:21)
[2022-12-04 09:52] LABS: ALB/GLOB Ratio 0.6 RATIO (0.9-2.4); Globulin 2.9 g/dL (2.2-4.2); LDH 262 U/L (87-241); Protein, Total 4.5 g/dL (6.4-8.2)
--- NOTE | 2022-12-04 09:57 | PCM.PN.REN ---
Subjective Subjective Patient resting in bed. Reports breathing is better. at bedside. No overnight events Objective Data Objective Data Vital Signs: Vital Signs Temp Pulse Resp BP Pulse Ox O2 Del Method O2 Flow Rate 99.3 F H 98 19 H 117/50 L 94 Nasal Cannula 2 12/04/22 08:12 12/04/22 08:12 12/04/22 08:12 12/04/22 08:12 12/04/22 08:12 12/04/22 08:17 12/04/22 08:17 FiO2 43 12/03/22 07:04 Oxygen Flow Rate (L/min) 2 Oxygen Delivery Method Nasal Cannula Weight: 68.4 kg Body Mass Index (BMI) 22.8 Intake & Output: Intake and Output for Last 24 Hours 12/02/22 12/03/22 12/04/22 23:59 23:59 23:59 Intake Total 1565 / 1565 1380 / 1430 210 / 210 Output Total 1775 / 2025 1450 / 1450 200 / 200 Balance -210 / -460 -70 / -20 Lab / Micro Data 12/04/22 04:05 12/04/22 04:05 Labs: Laboratory Results - last 24 hr 12/03/22 12:24: POC Glucose 88 12/03/22 17:44: POC Glucose 248 H 12/03/22 21:13: POC Glucose 234 H 12/04/22 04:05: WBC 31.9 H*, RBC 2.90 L, Hgb 8.6 L, Hct 25.8 L, MCV 89.0, MCH 29.7, MCHC 33.3, RDW Std Deviation 47.4 H, RDW Coeff of Russell 14.6, Plt Count 185, MPV 11.5, Immature Gran % (Auto) 2.700 H, Neut % (Auto) 88.7 H, Lymph % (Auto) 2.8 L, [place] % (Auto) 2.4, Eos % (Auto) 3.2, Baso % (Auto) 0.2, Absolute Neuts (auto) 28.3 H, Absolute Lymphs (auto) 0.89, Nucleated RBC % 0, Diff Path Review August, Sodium 135 L, Potassium 4.2, Chloride 104, Carbon Dioxide 21.0, Anion Gap 10, BUN 65 H, Creatinine 3.84 H, Estim Creat Clear Calc 14.87, Est GFR (MDRD) Af Amer 20 L, Est GFR (MDRD) Non-Af 16 L, BUN/Creatinine Ratio 16.9, Glucose 265 H, Calcium 7.2 L, Total Bilirubin 0.30, AST 18, ALT 59, Alkaline Phosphatase 329 H, Lactate Dehydrogenase 262 H, Total Protein 4.4 L 12/04/22 04:05: Total Protein 4.5 L, Albumin 1.5 L, Globulin 2.9 12/04/22 04:05: Globulin 2.9, Albumin/Globulin Ratio 0.5 L 12/04/22 04:05: Albumin/Globulin Ratio 0.6 L 12/04/22 07:50: POC Glucose 339 H Micro: Microbiology 12/02/22 12:06 Blood Culture (Wb) - Anticubital Right Blood Culture - Preliminary No growth in 48 hours. 12/02/22 12:00 Blood Culture (Wb) - Right Hand Blood Culture - Preliminary No growth in 48 hours. 11/29/22 09:55 Blood Culture (Wb) - Anticubital Right Blood Culture - Preliminary No growth in 48 hours. 11/29/22 10:10 Blood Culture (Wb) - Anticubital Left Blood Culture - Preliminary No growth in 48 hours. 11/29/22 08:50 Mucosa - Nasopharyngeal Respiratory Panel (PCR) - Final 11/29/22 10:40 Urine, Random Legionella Antigen - Final 11/29/22 10:40 Urine, Random Streptococcus pneumoniae Antigen (M - Final 11/28/22 00:06 Nasal Secretion SARS-CoV-2 Antigen (Rapid) - Final Radiography Diagnostic Testing: Radiology Impression Chest CT 12/04/22 06:13 IMPRESSION: Moderate pleural effusions, with consolidations in the lingula and bilateral lower lobes. This likely indicates pneumonia. Electronically Signed: Reji Miles MD at 7:21 EDT , Physical Exam Narrative Alert and oriented x3, no apparent distress Lung sounds diminished posterior bases S1, S2, RRR Abdomen soft, nontender Trace nonpitting edema bilateral lower legs Temporary right IJ HD catheter dressing clean, dry and intact Assessment & Plan Assessment/Plan (1) Acute kidney injury: PLAN: Renal function is improving, he makes urine, electrolytes are fine, no significant acidosis. Patient does not need dialysis today (2) 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 1 diabetes mellitus: PLAN: - History of CKD stage IV with underlying GFR ~20ml/min. Followed by Dr. Townsend. Patient previously refused to have AV access for dialysis to be placed. There was long conversation with patient, and his daughters and patient now in agreement with [employer]. Patient admitted non-STEMI, DKA and hypertensive emergency. SCr 4.20 mg/dL on admission (11/28)--> SCr peaked 4.56, bicarb 17, potassium 5.1 on 12/02 with decline in respiratory status put on BiPAP, he did receive dose of Lasix 40 mg IV with no improvement in respiratory status. Patient agreed with moving forward with hemodialysis. Appreciate surgery placing non-tunneled temporary HD catheter 12/02. Patient underwent 1st hemodialysis 12/02 with 1 L UF, underwent hemodialysis again 12/03 but only able to get ~900ml UF (had been attempting to try for at least 2 L UF), had to back off on fluid removal due to hypotension. Patient is off Plavix and possibly planning tunneled HD catheter early next week. - patient will need outpatient dialysis arrangements at [facility], Dx: ENMANUEL on CKD stage 4. -Acute respiratory failure multifactorial from decompensated heart failure, underlying valvular heart disease/aortic stenosis and possible pneumonia along with COPD. Currently on antibiotics and receiving breathing treatments. White count trending up, today 31.9. Repeat blood cultures pending. - NSTEMI; cardiology following. not clear if cardiac catheterization to be performed during inpatient hospitalization. Worsening anemia, off heparin drip. -Blood pressures on low side but improved, currently on Lopressor 12.5 mg twice daily and amlodipine 5 mg daily. Lisinopril on hold. Recommend holding these meds mornings of dialysis - CT chest showed b/l pleural effusions, to have thoracentesis later today
[2022-12-04 10:15] LABS: International Normalized Ratio 1.2; Partial Thromboplast Time 34.1 Seconds (24.1-36.2); Prothrombin Time (Protime)PT. 15.5 SECONDS (11.7-14.9)
--- NOTE | 2022-12-04 10:39 | PCM.CONS.GEN ---
Assessment & Plan Assessment/Plan (1) Acute kidney injury: (2) Acute respiratory failure with hypoxia: (3) Pneumonia: QUALIFIERS: Pneumonia type: due to unspecified organism Laterality: right Lung location: unspecified part of lung Qualified Code(s): J18.9 - Pneumonia, unspecified organism PLAN: On vanc/zosyn since 12/02, wbc continues to rise. Repeat bcx neg. Will change to meropenem and monitor. Thoracentesis planned. Will follow, thank you HPI Consult Data Date of Consult: 12/04/22 HPI Narrative Reason for Consultation: pneumonia HPI Narrative: DEX VALLE, is a 77 M with h/o COPD, prostate cancer, presented 11/28 with acute onset dyspnea and green sputum reported on H&P. Had some associated chills. Admitted on azithro/ceftriaxone, seen by pulm. Started on dialysis. Status worsened and wbc increased 12/02. Abx broadened to vanc/zosyn. Thoracentesis planned for today. Feeling about the same, denies any sputum. No fever here. Full ROS performed and neg except as noted above. [facility] Medical History Alcohol use Anemia Aortic root dilatation Arthritis Atherosclerotic heart disease of alutiiq coronary artery without angina pectoris Back pain Back problem Bone fracture Bronchitis Cataracts, bilateral Chronic neck and back pain CKD (chronic kidney disease), stage IV COPD (chronic obstructive pulmonary disease) Diabetic retinopathy associated with type 1 diabetes mellitus Dietary restriction Dyspnea on exertion Essential hypertension Family history of hyperlipidemia Family history of hypertension Former smoker Headache Hearing loss, left Hearing loss, right Hearing problem High cholesterol History of echocardiogram History of pain when walking History of stress test Hyperlipidemia Hypertension Hypertension 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 Kidney stones 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 Mixed hyperlipidemia Nicotine abuse Olecranon bursitis, left elbow Olecranon bursitis, right elbow Osteoarthritis Osteopenia Prostate disease Shortness of breath on exertion Skin mole Sleep apnea Smoker Swelling of right elbow Unintentional weight loss of more than 10 pounds Vision problem Wears dentures Wears glasses Wears hearing aid Wears hearing aid in both ears Home Medications aspirin 81 mg tablet,delayed release (Adult Low Dose Aspirin) 81 mg PO QDAY 06/15/17 [History Last Taken 05/27/21] finasteride 5 mg tablet (Proscar) 5 mg PO QDAY 06/16/17 [History Last Taken Unknown] lisinopril 40 mg tablet 40 mg PO QDAY 06/16/17 [History Last Taken 05/29/21] multivitamin 1 tab PO QDAY 06/16/17 [History Last Taken Unknown] insulin lispro 200 unit/mL (3 mL) subcutaneous pen (Humalog KwikPen U-200 Insulin) See Rx Instructions subcut TID 10/24/21 [History Last Taken Unknown] ferrous sulfate 325 mg (65 mg iron) tablet 325 mg PO DAILY #90 tabs 12/30/21 [Rx Last Taken Unknown] flash glucose scanning reader (The New HiveStyle Tani 2 [place]) #2 ea 03/28/22 [Rx Last Taken Unknown] flash glucose sensor (FreeStyle Tani 2 Sensor kit) #2 ea 03/28/22 [Rx Last Taken Unknown] rosuvastatin 20 mg tablet 20 mg PO DAILY 04/24/22 [History Last Taken Unknown] amlodipine 10 mg tablet 10 mg PO DAILY 04/30/22 [History Last Taken Unknown] docusate sodium 100 mg capsule (Colace) 200 mg PO BID 04/30/22 [History Last Taken Unknown] magnesium oxide 400 mg PO DAILY 04/30/22 [History Last Taken Unknown] vitamins A,C,F-npji-rbxybq 4,296 mcg-226 mg-90 mg capsule (Vision Formula (vits U-K-Z-zinc-copper)) 1 cap PO ONCE 04/30/22 [History Last Taken Unknown] bisacodyl 5 mg tablet,delayed release 5 mg PO ONCE 05/05/22 [History Last Taken Unknown] calcium citrate 200 mg (950 mg) tablet 200 mg PO DAILY 05/05/22 [History Last Taken Unknown] cholecalciferol (vitamin D3) 125 mcg (5,000 unit) capsule 125 mcg PO DAILY 05/05/22 [History Last Taken Unknown] cinnamon bark 500 mg capsule (Cinnamon) 1,000 mg PO DAILY 05/05/22 [History Last Taken Unknown] furosemide 40 mg tablet 40 mg PO DAILY 05/05/22 [History Last Taken Unknown] folic acid 400 mcg tablet 500 mcg PO BID 06/27/22 [History Last Taken Unknown] gabapentin 300 mg capsule 300 mg PO TID 06/27/22 [History Last Taken Unknown] insulin glargine 100 unit/mL (3 mL) subcutaneous pen (Lantus Solostar U-100 Insulin) 10 unit subcut DAILY 10/27/22 [History Last Taken Unknown] Allergy/AdvReac Type Severity Reaction Status Date / Time levofloxacin [From Levaquin] Allergy Hives Verified 11/28/22 21:34 Family History Father Diabetes Hypertension Family history of hyperlipidemia Asthma Kidney disease Mother Diabetes Brother Cancer Throat cancer Brother CAD (coronary artery disease) Myocardial infarction, Onset Age: 52 Sister Family history of hyperlipidemia Hypertension Diabetes Unknown Alcoholism Arthritis Depression Diabetes Hypertension Hyperlipidemia Osteoporosis Respiratory disease Pancreatic cancer Other Family history of hypertension Surgical History Fracture of left patella Fracture of left upper extremity History of bilateral inguinal hernia repair (~2007) History of colonoscopy (~2013) History of hemorrhoidectomy (~2000) History of hernia repair (~1991) stent replacement for right sided kidney stome Wrist fracture, bilateral Social History Smoking Status: Current every day smoker tobacco type: cigarettes Tobacco: How many years used: 50 alcohol intake: current alcohol intake frequency: a few times a month substance use type: does not use caffeine: Yes Type: coffee Number of servings: 2 what type of physical activity do you participate in: none seatbelt use: sometimes do you feel safe at home: Yes Physical Exam Const alert and no apparent distress General Appearance: cooperative HEENT normocephalic and head/scalp atraumatic Eyes PERRL and EOMs intact bilaterally Neck supple and No nodes Resp Resp Narrative: Diminished in bases Auscultation: Negative for rhonchi Cardio regular rate and regular rhythm GI soft to palpation, non-tender and non-distended Extremity General Extremity: Negative for edema Skin no rashes or lesions noted Neuro CN's II-XII intact bilaterally Lab / Micro Data Attestation: I reviewed the patient's lab results. 12/04/22 04:05 12/04/22 04:05 Labs: Laboratory Results - last 24 hr 12/03/22 12:24: POC Glucose 88 12/03/22 17:44: POC Glucose 248 H 12/03/22 21:13: POC Glucose 234 H 12/04/22 04:05: WBC 31.9 H*, RBC 2.90 L, Hgb 8.6 L, Hct 25.8 L, MCV 89.0, MCH 29.7, MCHC 33.3, RDW Std Deviation 47.4 H, RDW Coeff of Russell 14.6, Plt Count 185, MPV 11.5, Immature Gran % (Auto) 2.700 H, Neut % (Auto) 88.7 H, Lymph % (Auto) 2.8 L, [place] % (Auto) 2.4, Eos % (Auto) 3.2, Baso % (Auto) 0.2, Absolute Neuts (auto) 28.3 H, Absolute Lymphs (auto) 0.89, Nucleated RBC % 0, Diff Path Review August, Sodium 135 L, Potassium 4.2, Chloride 104, Carbon Dioxide 21.0, Anion Gap 10, BUN 65 H, Creatinine 3.84 H, Estim Creat Clear Calc 14.87, Est GFR (MDRD) Af Amer 20 L, Est GFR (MDRD) Non-Af 16 L, BUN/Creatinine Ratio 16.9, Glucose 265 H, Calcium 7.2 L, Total Bilirubin 0.30, AST 18, ALT 59, Alkaline Phosphatase 329 H, Lactate Dehydrogenase 262 H, Total Protein 4.4 L 12/04/22 04:05: Total Protein 4.5 L, Albumin 1.5 L, Globulin 2.9 12/04/22 04:05: Globulin 2.9, Albumin/Globulin Ratio 0.5 L 12/04/22 04:05: Albumin/Globulin Ratio 0.6 L 12/04/22 07:50: POC Glucose 339 H 12/04/22 09:45: PT 15.5 H, INR 1.2, APTT 34.1 Micro: Microbiology 12/02/22 12:06 Blood Culture (Wb) - Anticubital Right Blood Culture - Preliminary No growth in 48 hours. 12/02/22 12:00 Blood Culture (Wb) - Right Hand Blood Culture - Preliminary No growth in 48 hours. Radiology Impression Chest CT 12/04/22 06:13 IMPRESSION: Moderate pleural effusions, with consolidations in the lingula and bilateral lower lobes. This likely indicates pneumonia. Electronically Signed: Reji Miles MD at 7:21 EDT Reading Location ID and State: [facility] / [place] Tel , Service support ,
[2022-12-04] MEDS: Insulin Glargine-YFGN 100 UNIT/ML Pen 15 UNIT SC (11:03)
--- NOTE | 2022-12-04 11:14 | PN.CARD_ITS ---
Subjective Subjective Reports that breathing feels slightly improved. No chest pain. Objective Data Vital Signs: Vital Signs Temp Pulse Resp BP Pulse Ox O2 Del Method O2 Flow Rate 99.3 F H 98 19 H 117/50 L 94 Nasal Cannula 2 12/04/22 08:12 12/04/22 08:12 12/04/22 08:12 12/04/22 08:12 12/04/22 08:12 12/04/22 08:17 12/04/22 08:17 FiO2 43 12/03/22 07:04 Oxygen Flow Rate (L/min) 2 Oxygen Delivery Method Nasal Cannula Weight: 150 lb 12.739 oz Body Mass Index (BMI) 22.8 Intake & Output: Intake and Output for Last 24 Hours 12/02/22 12/03/22 12/04/22 23:59 23:59 23:59 Intake Total 1565 / 1565 1380 / 1430 230.42 / 230.42 Output Total 1775 / 2025 1450 / 1450 200 / 200 Balance -210 / -460 -70 / -20 30.42 / 30.42 Lab / Micro Data 12/04/22 04:05 12/04/22 04:05 Labs: Laboratory Results - last 24 hr 12/03/22 12:24: POC Glucose 88 12/03/22 17:44: POC Glucose 248 H 12/03/22 21:13: POC Glucose 234 H 12/04/22 04:05: WBC 31.9 H*, RBC 2.90 L, Hgb 8.6 L, Hct 25.8 L, MCV 89.0, MCH 29.7, MCHC 33.3, RDW Std Deviation 47.4 H, RDW Coeff of Russell 14.6, Plt Count 185, MPV 11.5, Immature Gran % (Auto) 2.700 H, Neut % (Auto) 88.7 H, Lymph % (Auto) 2.8 L, [place] % (Auto) 2.4, Eos % (Auto) 3.2, Baso % (Auto) 0.2, Absolute Neuts (auto) 28.3 H, Absolute Lymphs (auto) 0.89, Nucleated RBC % 0, Diff Path Review May foll, Sodium 135 L, Potassium 4.2, Chloride 104, Carbon Dioxide 21.0, Anion Gap 10, BUN 65 H, Creatinine 3.84 H, Estim Creat Clear Calc 14.87, Est GFR (MDRD) Af Amer 20 L, Est GFR (MDRD) Non-Af 16 L, BUN/Creatinine Ratio 16.9, Glucose 265 H, Calcium 7.2 L, Total Bilirubin 0.30, AST 18, ALT 59, Alkaline Phosphatase 329 H, Lactate Dehydrogenase 262 H, Total Protein 4.4 L 12/04/22 04:05: Total Protein 4.5 L, Albumin 1.5 L, Globulin 2.9 12/04/22 04:05: Globulin 2.9, Albumin/Globulin Ratio 0.5 L 12/04/22 04:05: Albumin/Globulin Ratio 0.6 L 12/04/22 07:50: POC Glucose 339 H 12/04/22 09:45: PT 15.5 H, INR 1.2, APTT 34.1 Micro: Microbiology 11/29/22 09:55 Blood Culture (Wb) - Anticubital Right Blood Culture - Final No growth in 5 days. 11/29/22 10:10 Blood Culture (Wb) - Anticubital Left Blood Culture - Final No growth in 5 days. 12/02/22 12:06 Blood Culture (Wb) - Anticubital Right Blood Culture - Prel iminary No growth in 48 hours. 12/02/22 12:00 Blood Culture (Wb) - Right Hand Blood Culture - Preliminary No growth in 48 hours. Cardiology Labs/Tests 12/04/22 04:05: WBC 31.9 H*, RBC 2.90 L, Hgb 8.6 L, Hct 25.8 L, MCV 89.0, MCH 29.7, MCHC 33.3, Plt Count 185, MPV 11.5, Immature Gran % (Auto) 2.700 H, Neut % (Auto) 88.7 H, Lymph % (Auto) 2.8 L, [place] % (Auto) 2.4, Eos % (Auto) 3.2, Baso % (Auto) 0.2, Absolute Neuts (auto) 28.3 H, Nucleated RBC % 0, Sodium 135 L, Potassium 4.2, Chloride 104, Carbon Dioxide 21.0, Anion Gap 10, BUN 65 H, Creatinine 3.84 H, Est GFR (MDRD) Af Amer 20 L, Est GFR (MDRD) Non-Af 16 L, BUN/Creatinine Ratio 16.9, Glucose 265 H, Calcium 7.2 L, Total Bilirubin 0.30 12/04/22 09:45: PT 15.5 H, INR 1.2, APTT 34.1 Rhythm: EKG: ECHO: Stress Test: Cardiac Cath: PCI: CT Surgery: Holter monitor: EPS: PPM: CXR: Chest CT Scan: Radiography Diagnostic Testing: Radiology Impression Chest CT 12/04/22 06:13 IMPRESSION: Moderate pleural effusions, with consolidations in the lingula and bilateral lower lobes. This likely indicates pneumonia. Electronically Signed: Reji Miles MD at 7:21 EDT , Physical Exam Narrative On BiPAP. Heart sounds 1 and 2 noted. Chest with bibasilar crepitus. Abdomen soft. Awake. Alert. 1+ bilateral lower extremity edema. Assessment & Plan Assessment/Plan (1) NSTEMI, initial episode of care: PLAN: Non-ST elevation [place] in the setting of bilateral pneumonia with hypoxia. Continue medical management for now. Echocardiogram reviewed. Ejection fraction approximately 50%. Plan on coronary angiography when stable respiratory castro from his bilateral pneumonia. (2) Aortic valve stenosis: QUALIFIERS: Cardiac valve disease etiology: nonrheumatic Qualified Code(s): I35.0 - Nonrheumatic aortic (valve) stenosis PLAN: Mild to moderate aortic valve stenosis. Continue to monitor. (3) Dyspnea: PLAN: Secondary to bilateral pneumonia and moderate pleural effusions noted on CT scan. Continue to manage as per internal medicine/pulmonology/infectious disease. Patient going for thoracentesis this morning. (4) Pneumonia: QUALIFIERS: Pneumonia type: due to unspecified organism Laterality: right Lung location: unspecified part of lung Qualified Code(s): J18.9 - Pneumonia, unspecified organism PLAN: On antibiotics. Manage as per internal medicine. (5) CKD (chronic kidney disease) stage 4, GFR 15-29 ml/min: PLAN: Started on hemodialysis. Nephrology following. (6) Anemia: PLAN: Received 1 unit of packed red cells. Continue following as per manager traffic/internal medicine. (7) Diabetes: QUALIFIERS: Diabetes mellitus type: type 1 Diabetes mellitus complication status: with hyperglycemia Qualified Code(s): E10.65 - Type 1 diabetes mellitus with hyperglycemia PLAN: As per internal medicine.
[2022-12-04 11:24] LABS: Bedside Glucose 334 mg/dL (74-106)
--- NOTE | 2022-12-04 13:32 | NURSING ---
off floor to radiology at this time
--- NOTE | 2022-12-04 13:53 | RAD_ITS ---
INDICATION: immediately post thoracentesis EXAMINATION/TECHNIQUE: X-RAY - XR Chest 2 Views COMPARISON: CT chest without contrast from earlier same day. Chest x-ray from 12/02/2022. FINDINGS: Support devices: Stable right internal jugular approach central venous catheter. Resolution of the previously seen small left-sided pleural effusion status post thoracentesis. No sizable pneumothorax. Stable trace right pleural effusion. Similar extent and distribution of bibasilar atelectasis/airspace disease. Heart size is stable. Bones and soft tissues are unchanged. RAD/Chest Insp/Exp 2 View IMPRESSION: 1. Resolution of the previously seen small left-sided pleural effusion status post thoracentesis. 2. No sizable pneumothorax postthoracentesis. 3. Stable trace right pleural effusion and bibasilar atelectasis/airspace disease. Electronically Signed: Erasmo To DO at 14:47 EDT ,
[2022-12-04] MEDS: Lidocaine 2% (20 ml mdv) 20 ML Vial INFILT (14:00)
[2022-12-04 14:21] LABS: Cytology, Body Fluid / CSF SEE PATHOLOGY REPORT
[2022-12-04 14:46] LABS: Body Fluid Mononuclear WBC # 0.145 10^3/uL; Body Fluid Mononuclear WBC % 30.5 %; Body Fluid Polynuclear WBC % 69.5 %; Body Fluid Total Cells Counted 0.604 10^3/ul; Red Cell Count/Body Fluid 0.003 10^6/ul; White Blood Count/Body Fluid 0.475 10^3/uL
[2022-12-04 14:48] LABS: Auto B Fluid Analyzer BKGD Ct COUNTS W/IN LIMITS (W/IN LIMITS)
[2022-12-04 14:49] LABS: Appearance/Body Fluid SL CLDY; Color/Body Fluid LT YEL; Source- Body Fluid THORACENTESIS
[2022-12-04 14:54] LABS: Pathologist Review Reviewed
[2022-12-04 15:05] LABS: Glucose, Body Fluid 291 mg/dL (40-70); LDH,Body Fluid 88 Units/L (Not Establ.); Protein, Body Fluid 0.9 g/dL (Not Establ.)
[2022-12-04 15:20] LABS: Lymphocytes 3 %; Mesothelial Cells 3 %; Monocytes 9 %; Neutrophil (Segs) 80 %; Other Cell Type/BF 5 %
[2022-12-04 15:21] LABS: Body Fluid QC Type(s) BF1Q,BF2Q
[2022-12-04 16:56] LABS: Bedside Glucose 117 mg/dL (74-106)
[2022-12-04 21:06] LABS: Bedside Glucose 94 mg/dL (74-106)
[2022-12-04] MEDS: Atorvastatin Calcium 40 MG Tablet PO (21:08)
[2022-12-05] VITALS (21 sets, daily range): BP systolic 31–308; BP diastolic 37–88; PULSE 82–99; RESP 12–22; TEMP 35.9–37.1; O2SAT 92–100; BMI 22.5; BMI 22.2
--- NOTE | 2022-12-05 01:55 | CPS ---
Pt refused PAP therapy for the night.
[2022-12-05 02:54] LABS: Bedside Glucose 124 mg/dL (74-106)
[2022-12-05 03:49] LABS: Absolute Lymphocyte Count 1.29 X10^3/uL (0.83-4.51); Absolute Neutrophil Count 27.8 X10^3/uL (2.0-7.7); Basophil# 0.08 X10^3/uL; Basophil% 0.2 % (0-1); Eosinophil# 1.43 X10^3/uL; Eosinophils% 4.4 % (0-5); Hematocrit 26.3 % (40-54); Hemoglobin 8.6 g/dL (13.0-16.5); Lymphocyte # 1.29 X10^3/ul (0.83-4.51); Lymphocyte % 3.9 % (19-41); Mean Corp Hgb Conc 32.7 g/dL (32-36); Mean Corpuscular Hgb 29.3 pg (27.0-32.0); Mean Corpuscular Volume 89.5 fL (80-94); Mean Platelet Vol. 11.4 fl (6.2-12.0); Monocyte# 0.93 X10^3/uL; Monocyte% 2.8 % (0-10); NRBC Flagged by Analyzer 0 % (0-5); Neutrophil # 27.82 X10^3/uL (2.7-7.7); POSITIVE COUNT YES; POSITIVE DIFFERENTIAL YES; Platelet Count 192 K/mm3 (150-450); RBC Distribution Width CV 14.6 % (11.6-14.6); RBC Distribution Width SD 47.4 fl (35.1-43.9); Red Blood Count 2.94 M/mm3 (4.6-6.2); White Blood Count 32.8 K/mm3 (4.4-11.0)
[2022-12-05 04:05] LABS: ALB/GLOB Ratio 0.5 RATIO (0.9-2.4); AST(SGOT) 18 U/L (15-37); Alanine Aminotransfer ALT/SGPT 45 U/L (16-61); Albumin, Serum 1.5 g/dL (3.2-5.0); Alkaline Phosphatase 372 U/L (45-117); Anion Gap 10 (5-15); BUN 76 mg/dL (7-18); BUN/Creat Ratio 17.6 RATIO (10-20); Calcium,Total 7.4 mg/dL (8.5-10.1); Chloride 105 mmol/L (98-107); Creatinine, Serum 4.31 mg/dL (0.70-1.30); EST Glomerular Filtration Rate 14 mL/min (>60); Est Glom Filt Rate - Afr Amer 17 mL/min (>60); Estimated Creatinine Clearance 13.45 ml/min; Globulin 2.8 g/dL (2.2-4.2); Glucose 158 mg/dL (74-106); Potassium 4.3 mmol/L (3.5-5.1); Protein, Total 4.3 g/dL (6.4-8.2); Sodium Level 135 mmol/L (136-145)
[2022-12-05 04:29] LABS: Differential Indicated SCAN CRITERIA MET
--- NOTE | 2022-12-05 05:59 | PCM.PN.HOSP ---
Reason for Visit Reason for Visit: Diagnoses Sepsis, unspecified organism (11/28/22) Anemia, unspecified (11/28/22) Type 1 diabetes mellitus with ketoacidosis without coma (11/28/22) Type 1 diabetes mellitus with diabetic chronic kidney disease (11/28/22) Type 1 diabetes mellitus with hyperglycemia (11/28/22) Hyperkalemia (11/28/22) Non-ST elevation (NSTEMI) myocardial infarction (11/28/22) Nonrheumatic aortic (valve) stenosis (11/28/22) Pneumonia, unspecified organism (11/28/22) Acute respiratory failure with hypoxia (11/28/22) Acute kidney failure, unspecified (11/28/22) Chronic kidney disease, stage 4 (severe) (11/28/22) Dyspnea, unspecified (11/28/22) Severe sepsis without septic shock (11/28/22) Other specified abnormalities of plasma proteins (11/28/22) Subjective Subjective Patient with a prior successful ultrasound-guided left pleural effusion thoracentesis with removal of approximately 650 mL of clear straw fluid, cultures pending with follow-up chest x-ray later in the day with resolution of previously noted left-sided effusion with stable trace right pleural effusion and bibasilar atelectasis/airspace disease. Despite being transition day prior to meropenem with ID following WBC has risen to 32.8 with continued significant left shift although patient has remained afebrile with sputum culture with noted 3+ Brenna therefore initiated also on fluconazole. Patient notes he did not sleep well overnight and this morning was very tearful and frustrated because of his prolonged admission but later in the afternoon was more calm and does state he feels improved since the day prior. Patient denies fevers, chills, nausea, emesis, abdominal pain, chest pain or dyspnea. Objective Data Objective Data Vital Signs: Vital Signs Temp Pulse Resp BP Pulse Ox O2 Del Method O2 Flow Rate 98.7 F 88 18 120/56 L 93 Nasal Cannula 2 12/05/22 02:00 12/05/22 02:00 12/05/22 02:00 12/05/22 02:00 12/05/22 02:00 12/05/22 04:00 12/05/22 02:00 FiO2 43 12/03/22 07:04 Oxygen Flow Rate (L/min) [5] 2 Oxygen Flow Rate (L/min) [4] 2 Oxygen Flow Rate (L/min) [2] 2 Oxygen Flow Rate (L/min) [1 ( 2 Initial Baseline)] Oxygen Flow Rate (L/min) 2 Oxygen Delivery Method [5] Nasal Cannula Oxygen Delivery Method [4] Nasal Cannula Oxygen Delivery Method [3] Room Air Oxygen Delivery Method [2] Nasal Cannula Oxygen Delivery Method [1 ( Nasal Cannula Initial Baseline)] Oxygen Delivery Method Nasal Cannula Weight: 148 lb 9.465 oz Body Mass Index (BMI) 22.5 Intake & Output: Intake and Output for Last 24 Hours 12/03/22 12/04/22 12/05/22 23:59 23:59 23:59 Intake Total 1380 / 1430 940.42 / 940.42 Output Total 1450 / 1450 1050 / 1050 Balance -70 / -20 -109.58 / -109.58 Lab / Micro Data 12/05/22 03:40 12/05/22 03:40 Labs: Laboratory Results - last 24 hr 12/04/22 04:05: Diff Path Review Reviewed, Lactate Dehydrogenase 262 H, Total Protein 4.5 L, Globulin 2.9, Albumin/Globulin Ratio 0.6 L 12/04/22 07:50: POC Glucose 339 H 12/04/22 09:45: PT 15.5 H, INR 1.2, APTT 34.1 12/04/22 11:03: POC Glucose 334 H 12/04/22 13:55: Fluid Source THORACENTESIS, Fluid Color LT YEL, Fluid Appearance SL CLDY, Fluid WBC 0.475, Fluid RBC 0.003, Fluid Tot Cell Count 0.604, Fld Polynuclear WBCs # 0.330, Fld Polynuclear WBCs % 69.5, Fluid Mononuclear WBCs 0.145, Fld Mononuclear WBCs % 30.5, Fluid Neutrophils 80, Fluid Lymphocytes 3, Fluid Monocytes 9, Fld Mesothelial Cells 3, Fluid Other Cells 5, Fl Pathologist Comment May follow, Fluid Glucose 291 H, Fluid Total Protein 0.9, Fluid LDH 88, Fluid Comment 2 SEE COMMENT 12/04/22 16:34: POC Glucose 117 H 12/04/22 20:46: POC Glucose 94 12/05/22 02:36: POC Glucose 124 H 12/05/22 03:40: WBC 32.8 H*, RBC 2.94 L, Hgb 8.6 L, Hct 26.3 L, MCV 89.5, MCH 29.3, MCHC 32.7, RDW Std Deviation 47.4 H, RDW Coeff of Russell 14.6, Plt Count 192, MPV 11.4, Immature Gran % (Auto) 3.700 H, Neut % (Auto) 85.0 H, Lymph % (Auto) 3.9 L, [place] % (Auto) 2.8, Eos % (Auto) 4.4, Baso % (Auto) 0.2, Absolute Neuts (auto) 27.8 H, Absolute Lymphs (auto) 1.29, Nucleated RBC % 0, Diff Path Review August, Sodium 135 L, Potassium 4.3, Chloride 105, Carbon Dioxide 20.0 L, Anion Gap 10, BUN 76 H, Creatinine 4.31 H, Estim Creat Clear Calc 13.45, Est GFR (MDRD) Af Amer 17 L, Est GFR (MDRD) Non-Af 14 L, BUN/Creatinine Ratio 17.6, Glucose 158 H, Calcium 7.4 L, Total Bilirubin 0.30, AST 18, ALT 45, Alkaline Phosphatase 372 H, Total Protein 4.3 L, Albumin 1.5 L, Globulin 2.8, Albumin/Globulin Ratio 0.5 L Micro: Microbiology 12/04/22 17:00 Sputum, Expectorated/Coughed Gram Stain - Preliminary 11/29/22 09:55 Blood Culture (Wb) - Anticubital Right Blood Culture - Final No growth in 5 days. 11/29/22 10:10 Blood Culture (Wb) - Anticubital Left Blood Culture - Final No growth in 5 days. 12/02/22 12:06 Blood Culture (Wb) - Anticubital Right Blood Culture - Preliminary No growth in 48 hours. 12/02/22 12:00 Blood Culture (Wb) - Right Hand Blood Culture - Preliminary No growth in 48 hours. 11/29/22 08:50 Mucosa - Nasopharyngeal Respiratory Panel (PCR) - Final 11/29/22 10:40 Urine, Random Legionella Antigen - Final 11/29/22 10:40 Urine, Random Streptococcus pneumoniae Antigen (M - Final 11/28/22 00:06 Nasal Secretion SARS-CoV-2 Antigen (Rapid) - Final Radiography Diagnostic Testing: Radiology Impression Chest CT 12/04/22 06:13 IMPRESSION: Moderate pleural effusions, with consolidations in the lingula and bilateral lower lobes. This likely indicates pneumonia. Electronically Signed: Reji Miles MD at 7:21 EDT , Thoracentesis Ultrasound 12/04/22 08:03 IMPRESSION: Ultrasound guided diagnostic and therapeutic paracentesis of a left pleural effusion. Small right-sided pleural effusion is also present although this does not appear to be large enough to drain at this time. Ultrasound-guided thoracentesis can be obtained if increase in size of the right-sided pleural effusion on follow-up chest x-ray imaging. Electronically Signed: Erasmo To DO at 14:58 EDT , Chest X-Ray 12/04/22 13:53 IMPRESSION: 1. Resolution of the previously seen small left-sided pleural effusion status post thoracentesis. 2. No sizable pneumothorax postthoracentesis. 3. Stable trace right pleural effusion and bibasilar atelectasis/airspace disease. Electronically Signed: Erasmo DO Yousuf at 14:47 EDT , Physical Exam Narrative Physical Examination: General: Awake, alert, oriented x 3 and cooperative, seated upright in the ICU bedside chair, more talkative and interactive today. Skin: Normal color, normal turgor, no icterus, no cyanosis except occasional very staged ecchymoses to the extremities. HEENT: AT/NC, EOMI, PERRLA, MMM. Lungs: Remains diminished, improved at bases than previously though, no marked rales, rhonchi or wheezing. Heart: Currently regular rate and rhythm; no gallop, rub audible, + SM. Abdomen: Soft, NTTP, ND, distant normal BS. Extremities: No cyanosis, clubbing, or edema. Neurological: Patient awake, alert, oriented as noted, cognitive function intact; pupils equally reactive to light and accommodation, cranial nerves grossly normal, moving all 4 extremities, no focal deficits, strength improved, moderately to severely globally decreased secondary to acute presentation. Psychiatric: Affect appears more interactive, improved appearance, no acute evidence of depressive or anxiety feelings. Assessment & Plan Assessment/Plan (1) Acute respiratory failure with hypoxia: PLAN: Plan The patient is a 77 y/o M w/ PMHx: Chronic anemia/Fe deficiency anemia, BPH, Prostate CA, HTN, HLD, NIKHIL, COPD, Former tobacco use, Diabetes mellitus type II, CKD stage IV who presents to the [facility] ED on 12/01/22 with history of dyspnea, worse with exertion with productive green sputum as well as chills in addition to polyuria and polydipsia prompting eventual ED evaluation. #1. Acute Hypoxic and Hypercarbic Respiratory Failure, multifactorial, secondary to Acute Combined Acute Systolic/Diastolic CHF Exacerbation complicated by underlying valvular heart disease/aortic stenosis and Concurrent bilateral lower lobe and lingular pneumonia as well as complicated by moderate pleural effusions as well as underlying COPD history: Patient initially admitted to the ICU on BiPAP but given improvement transitioned to PCU status, 11/30/2022 chest x-ray with mildly decreased bilateral pneumonia evidence, ECHO w/ EF 4045%, SANDEEP calculated 0.98 cm?, aortic maximal pressure gradient 33.1 mmHg, aortic mean pressure gradient 19.8 mmHg, moderate to severe AV stenosis/calcific, grade 1 diastolic dysfunction with 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 for dobutamine stress echo to assess severity of AV stenosis with no prior comparison, rapid SARS COVID and influenza antigen negative, full respiratory panel negative, negative Legionella and strep pneumonia antigens, blood culture x2 pending (11/29/22), initially maintained on IV Rocephin as well as IV of azithromycin (start 11/29/22); however, 12/02/22 worsened status overnight and increasing WBC with L shift thus transitioned per discussion with Pulmonary medicine to IV Vanc and IV Zosyn therapy but 12/03/22 unfortunately red man syndrome presentation with d/c IV vanc-->12/04/22 Infectious disease abx change to Meropenem, ATC DuoNeb therapy, PRN albuterol, continue aspirin, statin, plavix and metoprolol added per Cardiology. Recommendation for diuretic challenge now that DKA has resolved this patient did require initial IV fluid administration but given worsened overnight into 12/02/2022 AM with high flow need--> BIPAP lasix 40 mg IV x 1 administered, worsened lab appearance, 12/02/22 transitioned to the ICU. Surgery placed temporary access and HD initiated with Plavix still on hold with Bld Cx x 2 obtained and no growth noted per discussion with general surgery with plans for tunneled line potentially this coming week early if WBC improves per their report. CT chest obtained w/ noted BL lower lobe/lingula consolidation and 12/04/22 ultrasound-guided left pleural effusion thoracentesis with removal of approximately 650 mL of clear straw fluid, cultures pending with follow-up chest x-ray later in the day with resolution of previously noted left-sided effusion with stable trace right pleural effusion and bibasilar atelectasis/airspace disease. 12/05/22 CBC w/ WBC 32.8, with significant left shift although remained afebrile. 12/05/2022 sputum culture with noted 3+ yeastlike organism and following discussion with infectious disease patient initiated on Diflucan with a 200 mg p.o. x1 loading dose and transition to 100 mg p.o. daily. #2. 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 Cardiology consulted, following and initially planned catheterization 12/01/22 however concern for low hgb and ongoing issues with overload eventually started on HD as noted this was postponed. Maintained on aspirin, statin, plavix and metoprolol added per Cardiology but given planned tunnelled catheter for HD planned once Bld Cx negative, plavix currently held, add back as soon as able with noted 12/02/2022 blood culture x2 negative with plan for tunneled catheter placement per surgery if this was the case however patient does still have significant leukocytosis with left shift but has remained afebrile, ID following is noted. #3. DKA: Hemoglobin A1c 11/29/2022 9.2% increased from most recently noted remotely 01/04/2018 8.5%, patient initially maintained on DKA protocol with eventual anion gap closure x2 and normalization of bicarb with insulin drip transitioned to Lantus with concurrent insulin sliding scale with Accu-Chek, will continue ADA diet with overlapping insulin sliding scale and scheduled, encourage appropriate lifestyle and diet changes, nutrition consulted. 12/02/22 increased BS, decompensated as noted above, administered increased short acting x 1, improved. Will continue to trend and alter insulin regimen as needed. #4. Acute kidney injury on CKD stage IV: Secondary to DKA presentation. Admission BUN/Cr 66/4.20, prior baseline creatinine noted to be primarily 3.0-3.3, 12/01/22 BUN/Cr 66/3.67-->12/02/22 BUN/Cr 86/4.56-->12/04/22 BUN/Cr 65/3.84--> 12/05/22 BUN/Cr 76/4.31, increased. Nephrology consulted, Dr. Townsend and AVF recommended in preparation for future HD however patient has declined but agreed to temporarily HD catheter initially but following more discussions amenable to event AVF outpatient. Worsening status 12/02/22, temporary access placed and patient started on HD. Bld Cx x 2 negative as noted above with planned tunnelled catheter, will review with Surgery/ID. Plavix temporarily on hold for this procedure. 12/04/22 planned on repeat HD until 12/05/22 potentially. #5. Hypertensive Urgency: Initial presentation blood pressures 190s over 70s to 100s, suspected to have contributed to acute presentation #1, currently maintained only on amlodipine, metoprolol added per Cardiology. #6. Acute hyponatremia, multifactorial given #1 potentially initially hypovolemic however eventually following hydration suspected of enteral volume overload: Admission sodium 124, as noted judiciously hydrated given DKA however now concern for possibly fluid overload with possible initiation of diuretic challenge per pulmonary recommendation, 12/01/2022 sodium 135-->12/05/22 Na 135. #7. Acute on Chronic normocytic/iron deficiency anemia: Admission hemoglobin 9.8, baseline prior to this primarily 8-9, 12/01/2022 7.2 and given Cardiology concern for proceeding with catheterization with Hgb at that level given presentation 1 u PRBC administered, 12/05/22 CBC w/ Hgb 8.6. #8. Hyperlipidemia: We will continue patient on statin therapy. #9. Former tobacco use: Encourage continued tobacco cessation. #10. BPH: We will continue patient finasteride home regimen #11. NIKHIL: BiPAP normally q HS, as noted given worsening status transitioned to high flow->BIPAP continuous. #12. DVT prophylaxis: Heparin drip discontinued, heparin SC. #13. CODE STATUS: Full Code. Charges/Coding Visit Charges Inpatient E&M: 21161 Subs Hosp L2
[2022-12-05] MEDS: Ipratropium/Albuterol Sulfate 3 ML AMPUL.NEB INHALATION ×3 (07:07→19:16)
[2022-12-05] MEDS: PureFlow B 2K Dialysis Soln 1 BAG 6 BAG PF (08:19)
[2022-12-05] MEDS: 0.9% Normal Saline 1,000 ML IV.SOLN. 1000 ML OPERA.SITE (08:19)
[2022-12-05 08:55] LABS: Bedside Glucose 207 mg/dL (74-106)
--- NOTE | 2022-12-05 10:23 | PCM.PN.REN ---
Subjective Subjective Seen and examined while on dialysis this morning. Patient was tearful this morning as he is frustrated that he feels he is not getting any better. No overnight events. at bedside. Objective Data Objective Data Vital Signs: Vital Signs Temp Pulse Resp BP Pulse Ox O2 Del Method O2 Flow Rate 97.7 F L 88 17 143/81 H 100 Nasal Cannula 2 12/05/22 07:21 12/05/22 09:58 12/05/22 09:58 12/05/22 09:58 12/05/22 09:58 12/05/22 10:00 12/05/22 10:00 FiO2 43 12/03/22 07:04 Oxygen Flow Rate (L/min) [5] 2 Oxygen Flow Rate (L/min) [4] 2 Oxygen Flow Rate (L/min) [2] 2 Oxygen Flow Rate (L/min) [1 ( 2 Initial Baseline)] Oxygen Flow Rate (L/min) 2 Oxygen Delivery Method [5] Nasal Cannula Oxygen Delivery Method [4] Nasal Cannula Oxygen Delivery Method [3] Room Air Oxygen Delivery Method [2] Nasal Cannula Oxygen Delivery Method [1 ( Nasal Cannula Initial Baseline)] Oxygen Delivery Method Nasal Cannula Weight: 67.4 kg Body Mass Index (BMI) 22.5 Intake & Output: Intake and Output for Last 24 Hours 12/03/22 12/04/22 12/05/22 23:59 23:59 23:59 Intake Total 1380 / 1430 940.42 / 940.42 Output Total 1450 / 1450 1050 / 1050 Balance -70 / -20 -109.58 / -109.58 Lab / Micro Data 12/05/22 03:40 12/05/22 03:40 Labs: Laboratory Results - last 24 hr 12/04/22 04:05: Diff Path Review Reviewed 12/04/22 11:03: POC Glucose 334 H 12/04/22 13:55: Fluid Source THORACENTESIS, Fluid Color LT YEL, Fluid Appearance SL CLDY, Fluid WBC 0.475, Fluid RBC 0.003, Fluid Tot Cell Count 0.604, Fld Polynuclear WBCs # 0.330, Fld Polynuclear WBCs % 69.5, Fluid Mononuclear WBCs 0.145, Fld Mononuclear WBCs % 30.5, Fluid Neutrophils 80, Fluid Lymphocytes 3, Fluid Monocytes 9, Fld Mesothelial Cells 3, Fluid Other Cells 5, Fl Pathologist Comment May follow, Fluid Glucose 291 H, Fluid Total Protein 0.9, Fluid LDH 88, Fluid Comment 2 SEE COMMENT 12/04/22 16:34: POC Glucose 117 H 12/04/22 20:46: POC Glucose 94 12/05/22 02:36: POC Glucose 124 H 12/05/22 03:40: WBC 32.8 H*, RBC 2.94 L, Hgb 8.6 L, Hct 26.3 L, MCV 89.5, MCH 29.3, MCHC 32.7, RDW Std Deviation 47.4 H, RDW Coeff of Russell 14.6, Plt Count 192, MPV 11.4, Immature Gran % (Auto) 3.700 H, Neut % (Auto) 85.0 H, Lymph % (Auto) 3.9 L, Ransom % (Auto) 2.8, Eos % (Auto) 4.4, Baso % (Auto) 0.2, Absolute Neuts (auto) 27.8 H, Absolute Lymphs (auto) 1.29, Nucleated RBC % 0, Diff Path Review August, Sodium 135 L, Potassium 4.3, Chloride 105, Carbon Dioxide 20.0 L, Anion Gap 10, BUN 76 H, Creatinine 4.31 H, Estim Creat Clear Calc 13.45, Est GFR (MDRD) Af Amer 17 L, Est GFR (MDRD) Non-Af 14 L, BUN/Creatinine Ratio 17.6, Glucose 158 H, Calcium 7.4 L, Total Bilirubin 0.30, AST 18, ALT 45, Alkaline Phosphatase 372 H, Total Protein 4.3 L, Albumin 1.5 L, Globulin 2.8, Albumin/Globulin Ratio 0.5 L 12/05/22 08:37: POC Glucose 207 H Micro: Microbiology 12/04/22 17:00 Sputum, Expectorated/Coughed Gram Stain - Preliminary 11/29/22 09:55 Blood Culture (Wb) - Anticubital Right Blood Culture - Final No growth in 5 days. 11/29/22 10:10 Blood Culture (Wb) - Anticubital Left Blood Culture - Final No growth in 5 days. 12/02/22 12:06 Blood Culture (Wb) - Anticubital Right Blood Culture - Preliminary No growth in 48 hours. 12/02/22 12:00 Blood Culture (Wb) - Right Hand Blood Culture - Preliminary No growth in 48 hours. 11/29/22 08:50 Mucosa - Nasopharyngeal Respiratory Panel (PCR) - Final 11/29/22 10:40 Urine, Random Legionella Antigen - Final 11/29/22 10:40 Urine, Random Streptococcus pneumoniae Antigen (M - Final 11/28/22 00:06 Nasal Secretion SARS-CoV-2 Antigen (Rapid) - Final Radiography Diagnostic Testing: Radiology Impression Thoracentesis Ultrasound 12/04/22 08:03 IMPRESSION: Ultrasound guided diagnostic and therapeutic paracentesis of a left pleural effusion. Small right-sided pleural effusion is also present although this does not appear to be large enough to drain at this time. Ultrasound-guided thoracentesis can be obtained if increase in size of the right-sided pleural effusion on follow-up chest x-ray imaging. Electronically Signed: Erasmo To DO at 14:58 EDT , Chest X-Ray 12/04/22 13:53 IMPRESSION: 1. Resolution of the previously seen small left-sided pleural effusion status post thoracentesis. 2. No sizable pneumothorax postthoracentesis. 3. Stable trace right pleural effusion and bibasilar atelectasis/airspace disease. Electronically Signed: Erasmo To DO at 14:47 EDT , Physical Exam Narrative Alert and oriented x3, no apparent distress S1, S2, RRR Lung sounds clear anteriorly and posteriorly. Abdomen soft, nontender No edema Non-tunneled right IJ HD catheter dressing clean, dry and intact Assessment & Plan Assessment/Plan (1) Acute kidney injury: (2) 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 1 diabetes mellitus: PLAN: - History of CKD stage IV with underlying GFR ~20ml/min. Followed by Dr. Townsend. Patient previously refused to have AV access for dialysis to be placed. There was long conversation with patient, and his daughters and patient now in agreement with [facility]. Patient admitted non-STEMI, DKA and hypertensive emergency. SCr 4.20 mg/dL on admission (11/28)--> SCr peaked 4.56, bicarb 17, potassium 5.1 on 12/02 with decline in respiratory status put on BiPAP, he did receive dose of Lasix 40 mg IV with no improvement in respiratory status. Patient agreed with moving forward with hemodialysis. Appreciate surgery placing non-tunneled temporary HD catheter 12/02. Patient underwent 1st hemodialysis 12/02 with 1 L UF, underwent hemodialysis again 12/03 but only able to get ~900ml UF we had been attempting to try for at least 2 L UF but goal fluid removal had to back off due to hypotension. Patient is off Plavix and possibly planning tunneled HD catheter early next week. -Dialysis again today over 3 hours. Had been attempting around 1-1.5L fluid removal but goal fluid removal had to be backed off due to hypotension. Patient quite possibly nearing a dry weight. He did have thoracentesis yesterday with 650 mL fluid removed. - temporary HD catheter is being used for dialysis however catheter today sluggish. Will inform surgery team - patient will need outpatient dialysis arrangements at [facility], Dx: ENMANUEL on CKD stage 4. -Acute respiratory failure multifactorial from decompensated heart failure, underlying valvular heart disease/aortic stenosis and possible pneumonia along with COPD. Currently on antibiotics and receiving breathing treatments. White count trending up, today 32.8. Blood cultures from 11/29 no growth, final; repeat blood cultures from 12/02 so far no growth - NSTEMI; cardiology following. not clear if cardiac catheterization to be performed during inpatient hospitalization. Worsening anemia, off heparin drip. -Blood pressures on low side but improved, currently on Lopressor 12.5 mg twice daily and amlodipine 5 mg daily. Lisinopril on hold. Recommend holding these meds mornings of dialysis - CT chest showed b/l pleural effusions and underwent thoracentesis with 650ml fluid removed. Chest x-ray after thoracentesis yesterday showed resolution of left-sided pleural effusion. -Discussed nephrology plan with Dr. Genao
[2022-12-05] MEDS: 0.9% Saline Lock 10 ML Syringe IV (10:26)
[2022-12-05] MEDS: Heparin 10,000 UNITS/10 ML Vial IV (10:27)
[2022-12-05] MEDS: Insulin Lispro 100 UNIT/ML INSULN.PEN 10 UNIT SC ×2 (10:46→16:32)
[2022-12-05] MEDS: Insulin Lispro 100 UNIT/ML INSULN.PEN SC ×3 (10:46→20:52)
[2022-12-05] MEDS: Folic Acid 1 MG Tablet 0.5 MG PO ×2 (10:47→16:32)
[2022-12-05] MEDS: Multivitamins,Therapeutic Tablet 1 TABLET PO (10:47)
[2022-12-05] MEDS: Magnesium Chloride 64 MG Delay Rel.Tablet 128 MG PO (10:47)
[2022-12-05] MEDS: Multivitamin (Healthy Eyes) Capsule 1 CAP PO (10:47)
[2022-12-05] MEDS: Metoprolol Tartrate 25 MG Tablet 12.5 MG PO ×2 (10:48→20:56)
[2022-12-05] MEDS: Cholecalciferol (Vit D3) 125 MCG CAPSULE (5,000 UNITS) PO (10:48)
[2022-12-05] MEDS: Aspirin E.C. 81 MG Tablet PO (10:48)
[2022-12-05] MEDS: Insulin Glargine-YFGN 100 UNIT/ML Pen 15 UNIT SC (10:48)
[2022-12-05] MEDS: Ferrous Sulfate 325 MG Tablet PO (10:49)
[2022-12-05] MEDS: Finasteride 5 MG Tablet PO (10:49)
[2022-12-05] MEDS: Calcium Carbonate 500 MG Tablet PO (10:54)
[2022-12-05 11:15] LABS: Bedside Glucose 203 mg/dL (74-106)
[2022-12-05] MEDS: amLODIPine 5 MG Tablet PO (12:05)
[2022-12-05] MEDS: Gabapentin 100 MG Capsule 200 MG PO ×2 (12:29→16:32)
--- NOTE | 2022-12-05 12:50 | PCM.PN.BLA ---
Progress Note Patient seen and examined during AM rounds. However, just prior to rounding I was notified by nephrology that patient's catheter has been somewhat sluggish for dialysis nursing. They state they have attempted to reposition in multiple ways and the catheter function still seems slow. They acknowledge that his white blood cell count is still elevated and share the reservations for placing a tunneled line at this point. They do note that they plan to hold off of dialysis for the weekend. For his part, Mr. Andre reports that he is aware he is still fighting the pneumonia. He denies any discomfort from the catheter in his right neck. Physical Exam Const alert, oriented x3 and no apparent distress Neck Neck Narrative: Stable appearance of right hemodialysis catheter with slight old blood around the insertion site. The lumens appear locked with heparin. There is no surrounding edema or erythema. Assessment & Plan Assessment/Plan (1) Acute kidney injury: (2) 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 1 diabetes mellitus: PLAN: Plan This is a 77-year-old male with a history of chronic kidney disease and now acute kidney injury. He is admitted for management of multifocal pneumonia as well as diabetic ketoacidosis and hypertensive urgency. Surgery was consulted for consideration of hemodialysis catheter placement given the patient has an element of volume overload compromising his respiratory status. A nontunneled hemodialysis catheter was placed earlier this week, however, it has been somewhat sluggish with his function on the most recent sessions. I suspect this is due to its position within the SVC rather than the right atrium. According to nephrology, they feel that patient is at his dry weight and believe that they will be able to proceed without dialysis until at least 12/08/2022. Given patient's continual WBC rise, I believe it to be the best course of action to see how he progresses over the weekend and reassess his needs at that time. If his leukocytosis persists, I would plan for placement of a new temporary hemodialysis catheter rather than a tunneled line. However, if his leukocytosis is resolving and his blood cultures remain clear then I would consider placement of a tunneled hemodialysis catheter. A reservation with the operating room has been placed for the afternoon of 12/09/2022 for this purpose (please continue to hold Plavix in anticipation). Visit Charges Inpatient E&M: 51049 Subs Hosp L2
--- NOTE | 2022-12-05 14:31 | PCM.PN.ID ---
Physical Exam Narrative No fever, still some dyspnea and sputum. Const alert and no apparent distress Resp Auscultation: rhonchi Cardio regular rate and regular rhythm GI soft to palpation, non-tender and non-distended Skin no rashes or lesions noted ID ID: Route of nutrition/ use of supplements: [] Nutritional Intake: [] IV Site: [] [place] Catheter: [] Assessment & Plan Assessment/Plan (1) Acute kidney injury: (2) Acute respiratory failure with hypoxia: (3) Pneumonia: QUALIFIERS: Pneumonia type: due to unspecified organism Laterality: right Lung location: unspecified part of lung Qualified Code(s): J18.9 - Pneumonia, unspecified organism PLAN: On meropenem, wbc continues to rise. Repeat bcx neg. Sputum with 3+ yeast, will start fluc. Thoracentesis done, fluid cx neg so far. Will follow, d/w Dr. Genao
[2022-12-05] MEDS: Fluconazole 100 MG Tablet 200 MG PO (14:52)
[2022-12-05 16:55] LABS: Bedside Glucose 186 mg/dL (74-106)
--- NOTE | 2022-12-05 20:46 | CPS ---
Pt refused PAP therapy for the night
[2022-12-05] MEDS: Atorvastatin Calcium 40 MG Tablet PO (20:47)
[2022-12-05] MEDS: Docusate Sodium 100 MG Capsule 200 MG PO (20:55)
[2022-12-05 21:19] LABS: Bedside Glucose 229 mg/dL (74-106)
[2022-12-05] MEDS: DiphenhydrAMINE 50 MG/ML Syringe 25 MG IV (23:57)
[2022-12-06] VITALS (10 sets, daily range): BP systolic 114–131; BP diastolic 51–58; PULSE 78–90; RESP 15–18; TEMP 36.4–37.1; O2SAT 90–98; BMI 22.8
[2022-12-06 03:35] LABS: Hematocrit 25.6 % (40-54); Hemoglobin 8.4 g/dL (13.0-16.5); Mean Corp Hgb Conc 32.8 g/dL (32-36); Mean Corpuscular Hgb 29.6 pg (27.0-32.0); Mean Corpuscular Volume 90.1 fL (80-94); Mean Platelet Vol. 11.5 fl (6.2-12.0); POSITIVE COUNT YES; POSITIVE DIFFERENTIAL YES; POSITIVE MORPHOLOGY YES; Platelet Count 146 K/mm3 (150-450); RBC Distribution Width CV 14.7 % (11.6-14.6); RBC Distribution Width SD 48.3 fl (35.1-43.9); Red Blood Count 2.84 M/mm3 (4.6-6.2)
[2022-12-06 03:38] LABS: Differential Indicated MANUAL DIFF; White Blood Count 31.8 K/mm3 (4.4-11.0)
[2022-12-06 03:51] LABS: ALB/GLOB Ratio 0.6 RATIO (0.9-2.4); AST(SGOT) 15 U/L (15-37); Alanine Aminotransfer ALT/SGPT 38 U/L (16-61); Albumin, Serum 1.5 g/dL (3.2-5.0); Alkaline Phosphatase 335 U/L (45-117); Anion Gap 12 (5-15); BUN 71 mg/dL (7-18); BUN/Creat Ratio 18.2 RATIO (10-20); Calcium,Total 7.6 mg/dL (8.5-10.1); Chloride 104 mmol/L (98-107); EST Glomerular Filtration Rate 16 mL/min (>60); Est Glom Filt Rate - Afr Amer 19 mL/min (>60); Estimated Creatinine Clearance 14.45 ml/min; Globulin 2.7 g/dL (2.2-4.2); Glucose 278 mg/dL (74-106); Protein, Total 4.2 g/dL (6.4-8.2); Sodium Level 135 mmol/L (136-145)
[2022-12-06 04:35] LABS: Differential Comment SCANNED
[2022-12-06 04:36] LABS: Eosinophil 4 % (0-5); Lymphocyte 6 % (19-41); Monocyte 5 % (0-10); Myelocyte 2 % (0-0); Neutrophil-Band 6 % (0-5); Neutrophil-Segmented 76 % (47-70); Promyelocyte 1 % (0-0); Total Cells Counted 100 (MANUAL DIFF)
[2022-12-06 04:37] LABS: Absolute Neutrophil Count 26.1 X10^3/uL (2.0-7.7)
--- NOTE | 2022-12-06 05:51 | PCM.PN.HOSP ---
Reason for Visit Reason for Visit: Diagnoses Sepsis, unspecified organism (11/28/22) Anemia, unspecified (11/28/22) Type 1 diabetes mellitus with ketoacidosis without coma (11/28/22) Type 1 diabetes mellitus with diabetic chronic kidney disease (11/28/22) Type 1 diabetes mellitus with hyperglycemia (11/28/22) Hyperkalemia (11/28/22) Non-ST elevation (NSTEMI) myocardial infarction (11/28/22) Nonrheumatic aortic (valve) stenosis (11/28/22) Pneumonia, unspecified organism (11/28/22) Acute respiratory failure with hypoxia (11/28/22) Acute kidney failure, unspecified (11/28/22) Chronic kidney disease, stage 4 (severe) (11/28/22) Dyspnea, unspecified (11/28/22) Severe sepsis without septic shock (11/28/22) Other specified abnormalities of plasma proteins (11/28/22) Subjective Subjective Patient with no acute events overnight per self and per nursing report. He notes feeling mildly improved since day prior. Patient does report some mild increased swelling to the left upper extremity and duplex has been ordered. Discussed again his mood and the plan for outpatient continued titration upward of his antidepressant and he is amenable to this plan. Discussed his labs today with mild improvement his renal function and very minimal but still decrease in his WBC elevation. Patient denies fevers, chills, nausea, emesis, abdominal pain, chest pain or dyspnea. Objective Data Objective Data Vital Signs: Vital Signs Temp Pulse Resp BP Pulse Ox O2 Del Method O2 Flow Rate 98.7 F 87 18 118/54 L 94 Nasal Cannula 2 12/06/22 03:30 12/06/22 03:30 12/06/22 03:30 12/06/22 03:30 12/06/22 03:30 12/06/22 04:00 12/06/22 04:00 FiO2 43 12/03/22 07:04 Oxygen Flow Rate (L/min) [5] 2 Oxygen Flow Rate (L/min) [4] 2 Oxygen Flow Rate (L/min) [2] 2 Oxygen Flow Rate (L/min) [1 ( 2 Initial Baseline)] Oxygen Flow Rate (L/min) 2 Oxygen Delivery Method [5] Nasal Cannula Oxygen Delivery Method [4] Nasal Cannula Oxygen Delivery Method [3] Room Air Oxygen Delivery Method [2] Nasal Cannula Oxygen Delivery Method [1 ( Nasal Cannula Initial Baseline)] Oxygen Delivery Method Nasal Cannula Weight: 146 lb 9.718 oz Body Mass Index (BMI) 22.2 Intake & Output: Intake and Output for Last 24 Hours 12/04/22 12/05/22 12/06/22 23:59 23:59 23:59 Intake Total 940.42 / 940.42 1360 / 1360 Output Total 1050 / 1050 1100 / 1200 100 / 100 Balance -109.58 / -109.58 260 / 160 -100 / -100 Lab / Micro Data 12/06/22 03:29 12/06/22 03:29 Labs: Laboratory Results - last 24 hr 12/05/22 08:37: POC Glucose 207 H 12/05/22 10:40: POC Glucose 203 H 12/05/22 16:31: POC Glucose 186 H 12/05/22 20:51: POC Glucose 229 H 12/06/22 03:29: WBC 31.8 H*, RBC 2.84 L, Hgb 8.4 L, Hct 25.6 L, MCV 90.1, MCH 29.6, MCHC 32.8, RDW Std Deviation 48.3 H, RDW Coeff of Russell 14.7 H, Plt Count 146 L, MPV 11.5, Neut % (Auto) Not Reportable, Absolute Neuts (auto) 26.1 H, Absolute Lymphs (auto) 1.90, Total Counted 100, Neutrophils % (Manual) 76 H, Band Neutrophils % 6 H, Lymphocytes % (Manual) 6 L, Monocytes % (Manual) 5, Eosinophils % (Manual) 4, Myelocytes % 2 H, Promyelocytes % 1 H, Differential Comment SCANNED, Diff Path Review August, Sodium 135 L, Potassium 4.0, Chloride 104, Carbon Dioxide 19.0 L, Anion Gap 12, BUN 71 H, Creatinine 3.90 H, Estim Creat Clear Calc 14.45, Est GFR (MDRD) Af Amer 19 L, Est GFR (MDRD) Non-Af 16 L, BUN/Creatinine Ratio 18.2, Glucose 278 H, Calcium 7.6 L, Total Bilirubin 0.30, AST 15, ALT 38, Alkaline Phosphatase 335 H, Total Protein 4.2 L, Albumin 1.5 L, Globulin 2.7, Albumin/Globulin Ratio 0.6 L Micro: Microbiology 12/04/22 17:00 Sputum, Expectorated/Coughed Gram Stain - Final 12/04/22 17:00 Sputum, Expectorated/Coughed Respiratory Culture - Preliminary Yeast Like Organism 12/04/22 13:55 Fluid - Thoracentesis Fluid Gram Stain - Final 11/29/22 09:55 Blood Culture (Wb) - Anticubital Right Blood Culture - Final No growth in 5 days. 11/29/22 10:10 Blood Culture (Wb) - Anticubital Left Blood Culture - Final No growth in 5 days. 12/02/22 12:06 Blood Culture (Wb) - Anticubital Right Blood Culture - Preliminary No growth in 48 hours. 12/02/22 12:00 Blood Culture (Wb) - Right Hand Blood Culture - Preliminary No growth in 48 hours. 11/29/22 08:50 Mucosa - Nasopharyngeal Respiratory Panel (PCR) - Final 11/29/22 10:40 Urine, Random Legionella Antigen - Final 11/29/22 10:40 Urine, Random Streptococcus pneumoniae Antigen (M - Final 11/28/22 00:06 Nasal Secretion SARS-CoV-2 Antigen (Rapid) - Final Physical Exam Narrative Physical Examination: General: Awake, alert, oriented x 3 and cooperative, seated upright in the ICU bed, no acute distress. Skin: Normal color, normal turgor, no icterus, no cyanosis except occasional very staged ecchymoses to the extremities. HEENT: AT/NC, EOMI, PERRLA, MMM. Lungs: Diminished, improved at bases than previously though, no marked rales, rhonchi or wheezing. Heart: Regular rate and rhythm; no gallop, rub audible, + SM. Abdomen: Soft, NTTP, ND, normal BS. Extremities: No cyanosis, no clubbing, left upper extremity edema, nontender to palpation, duplex ultrasound pending to be cautious. Neurological: Patient awake, alert, oriented as noted, cognitive function intact; pupils equally reactive to light and accommodation, cranial nerves grossly normal, moving all 4 extremities, no focal deficits, strength improved, moderately to severely globally decreased secondary to acute presentation. Psychiatric: Affect appears more normal today, does have underlying depression with prolonged hospitalization and worsening renal function but appropriate reaction. Assessment & Plan Assessment/Plan (1) Acute respiratory failure with hypoxia: PLAN: Plan The patient is a 77 y/o M w/ PMHx: Chronic anemia/Fe deficiency anemia, BPH, Prostate CA, HTN, HLD, NIKHIL, COPD, Former tobacco use, Diabetes mellitus type II, CKD stage IV who presents to the [facility] ED on 12/01/22 with history of dyspnea, worse with exertion with productive green sputum as well as chills in addition to polyuria and polydipsia prompting eventual ED evaluation. #1. Acute Hypoxic and Hypercarbic Respiratory Failure, multifactorial, secondary to Acute Combined Acute Systolic/Diastolic CHF Exacerbation complicated by underlying valvular heart disease/aortic stenosis and Concurrent bilateral lower lobe and lingular pneumonia as well as complicated by moderate pleural effusions as well as underlying COPD history: Patient initially admitted to the ICU on BiPAP but given improvement transitioned to PCU status, 11/30/2022 chest x-ray with mildly decreased bilateral pneumonia evidence, ECHO w/ EF 4045%, SANDEEP calculated 0.98 cm?, aortic maximal pressure gradient 33.1 mmHg, aortic mean pressure gradient 19.8 mmHg, moderate to severe AV stenosis/calcific, grade 1 diastolic dysfunction with recommendation for master police detective for dobutamine stress echo to assess severity of AV stenosis with no prior comparison, rapid SARS COVID and influenza antigen negative, full respiratory panel negative, negative Legionella and strep pneumonia antigens, blood culture x2 pending (11/29/22), initially maintained on IV Rocephin as well as IV of azithromycin (start 11/29/22); however, 12/02/22 worsened status overnight and increasing WBC with L shift thus transitioned per discussion with Pulmonary medicine to IV Vanc and IV Zosyn therapy but 12/03/22 unfortunately red man syndrome presentation with d/c IV vanc-->12/04/22 Infectious disease abx change to Meropenem, ATC DuoNeb therapy, PRN albuterol, continue aspirin, statin, plavix and metoprolol added per Cardiology. Recommendation for diuretic challenge now that DKA has resolved this patient did require initial IV fluid administration but given worsened overnight into 12/02/2022 AM with high flow need--> BIPAP lasix 40 mg IV x 1 administered, worsened lab appearance, 12/02/22 transitioned to the ICU. Surgery placed temporary access and HD initiated with Plavix still on hold with Bld Cx x 2 obtained and no growth noted per discussion with general surgery with plans for tunneled line potentially this coming week early if WBC improves per their report. CT chest obtained w/ noted BL lower lobe/lingula consolidation and 12/04/22 ultrasound-guided left pleural effusion thoracentesis with removal of approximately 650 mL of clear straw fluid, cultures pending with follow-up chest x-ray later in the day with resolution of previously noted left-sided effusion with stable trace right pleural effusion and bibasilar atelectasis/airspace disease. 12/05/2022 sputum culture with noted 3+ yeastlike organism and following discussion with infectious disease patient initiated on Diflucan with a 200 mg p.o. x1 loading dose and transition to 100 mg p.o. daily. 12/04/22 Thoracentesis Culture L sided effusion with no marked organisms with pending final. 12/06/22 CBC w/ WBC 31.8 with continued L shift, remained afebrile, thus first day the WBC has decreased even slightly. #2. Acute NSTEMI: Presentation EKG with sinus rhythm with no acute evidence of ischemia, initial troponin 11/28/2022 301 trending upward with last 11/30/2019 [id number], 11/29/2022 ECHO w/ EF 4045%, SANDEEP calculated 0.98 cm?, aortic maximal pressure gradient 33.1 mmHg, aortic mean pressure gradient 19.8 mmHg, moderate to severe AV stenosis/calcific, grade 1 diastolic dysfunction with recommendation for master police detective for dobutamine stress echo to assess severity of AV stenosis with no prior comparison, initially maintained on heparin drip which was held for HD access placement and transitioned to SC following. Cardiology consulted, following and initially planned catheterization 12/01/22 however concern for low hgb and ongoing issues with overload eventually started on HD as noted this was postponed. Maintained on aspirin, statin, plavix and metoprolol added per Cardiology but given planned tunnelled catheter for HD planned once Bld Cx negative, plavix currently held, add back as soon as able with noted 12/02/2022 blood culture x2 negative with plan for tunneled catheter placement per surgery if this was the case however patient does still have significant leukocytosis with left shift but has remained afebrile, ID following is noted. #3. DKA: Hemoglobin A1c 11/29/2022 9.2% increased from most recently noted remotely 01/04/2018 8.5%, patient initially maintained on DKA protocol with eventual anion gap closure x2 and normalization of bicarb with insulin drip transitioned to Lantus with concurrent insulin sliding scale with Accu-Chek, will continue ADA diet with overlapping insulin sliding scale and scheduled, encourage appropriate lifestyle and diet changes, nutrition consulted. 12/02/22 increased BS, decompensated as noted above, administered increased short acting x 1, improved. Will continue to trend and alter insulin regimen as needed. #4. Acute kidney injury on CKD stage IV: Secondary to DKA presentation. Admission BUN/Cr 66/4.20, prior baseline creatinine noted to be primarily 3.0-3.3, 12/01/22 BUN/Cr 66/3.67-->12/02/22 BUN/Cr 86/4.56-->12/04/22 BUN/Cr 65/3.84--> 12/05/22 BUN/Cr 76/4.31-->12/06/22 BUN/Cr 71/3.90. Dr. Townsend following w/ AVF recommended in preparation for future HD however patient has declined but agreed to temporarily HD catheter initially but following more discussions amenable to event AVF outpatient. Worsening status 12/02/22, temporary access placed and patient started on HD. Plavix temporarily on hold for tunnelled catheter procedure per Surgery which they note likely will be done this coming week but still hesitant given WBC although cultures remain negative. #5. Hypertensive Urgency: Initial presentation blood pressures 190s over 70s to 100s, suspected to have contributed to acute presentation #1, currently maintained only on amlodipine, metoprolol added per Cardiology. #6. Acute hyponatremia, multifactorial given #1 potentially initially hypovolemic however eventually following hydration suspected of enteral volume overload: Admission sodium 124, as noted judiciously hydrated given DKA however now concern for possibly fluid overload with possible initiation of diuretic challenge per pulmonary recommendation, 12/01/2022 sodium 135-->12/06/22 Na 135. #7. Acute on Chronic normocytic/iron deficiency anemia: Admission hemoglobin 9.8, baseline prior to this primarily 8-9, 12/01/2022 7.2 and given Cardiology concern for proceeding with catheterization with Hgb at that level given presentation 1 u PRBC administered, 12/06/22 CBC w/ Hgb 8.4. #8. Depression, situational: Patient and spouse concerned as patient has significantly low mood which is expected given his prolonged hospitalization and continued issues but at this time requesting to start medication, 12/05/2022 started low-dose sertraline and may titrate upward, will benefit also from ongoing discussions and counseling. #9. Left upper extremity swelling: To be cautious duplex ultrasound left upper extremity ordered, pending. If negative then will place neck Telly wraps with elevation of extremity. #10. Former tobacco use: Encourage continued tobacco cessation. #11. BPH: We will continue patient finasteride home regimen #12. NIKHIL: BiPAP normally q HS, as noted given worsening status transitioned to high flow->BIPAP continuous. #13. Hyperlipidemia: We will continue patient on statin therapy. #14. DVT prophylaxis: Heparin drip discontinued, heparin SC. #15. CODE STATUS: Full Code. Charges/Coding Visit Charges Inpatient E&M: 00050 Subs Hosp L2
[2022-12-06] MEDS: Ipratropium/Albuterol Sulfate 3 ML AMPUL.NEB INHALATION ×3 (06:56→20:29)
[2022-12-06] MEDS: Insulin Lispro 100 UNIT/ML INSULN.PEN SC ×4 (08:09→22:33)
[2022-12-06] MEDS: Insulin Lispro 100 UNIT/ML INSULN.PEN 10 UNIT SC ×3 (08:09→17:45)
[2022-12-06] MEDS: Multivitamins,Therapeutic Tablet 1 TABLET PO (08:10)
[2022-12-06] MEDS: Folic Acid 1 MG Tablet 0.5 MG PO ×2 (08:10→17:46)
[2022-12-06] MEDS: Aspirin E.C. 81 MG Tablet PO (08:10)
[2022-12-06] MEDS: Ferrous Sulfate 325 MG Tablet PO (08:10)
[2022-12-06] MEDS: amLODIPine 5 MG Tablet PO (08:12)
[2022-12-06] MEDS: Finasteride 5 MG Tablet PO (08:12)
[2022-12-06] MEDS: Multivitamin (Healthy Eyes) Capsule 1 CAP PO (08:12)
[2022-12-06] MEDS: Cholecalciferol (Vit D3) 125 MCG CAPSULE (5,000 UNITS) PO (08:13)
[2022-12-06] MEDS: Metoprolol Tartrate 25 MG Tablet 12.5 MG PO ×2 (08:13→22:20)
[2022-12-06] MEDS: Magnesium Chloride 64 MG Delay Rel.Tablet 128 MG PO (08:14)
[2022-12-06] MEDS: Insulin Glargine-YFGN 100 UNIT/ML Pen 15 UNIT SC (08:14)
[2022-12-06] MEDS: Sertraline 50 MG Tablet PO (08:17)
[2022-12-06] MEDS: Gabapentin 100 MG Capsule 200 MG PO ×3 (08:17→17:48)
[2022-12-06] MEDS: Calcium Carbonate 500 MG Tablet PO (08:17)
[2022-12-06 08:27] LABS: Bedside Glucose 288 mg/dL (74-106)
--- NOTE | 2022-12-06 08:45 | PCM.PN.SRG ---
Subjective Subjective Patient's white blood count slightly down to 31.8 from 32.8. No plans for dialysis this weekend. Objective Data Objective Data Vital Signs: Vital Signs Temp Pulse Resp BP Pulse Ox O2 Del Method O2 Flow Rate 98.2 F 90 18 125/54 H 92 Nasal Cannula 2 12/06/22 08:00 12/06/22 08:13 12/06/22 08:00 12/06/22 08:00 12/06/22 08:00 12/06/22 08:30 12/06/22 08:30 FiO2 43 12/03/22 07:04 Oxygen Flow Rate (L/min) [5] 2 Oxygen Flow Rate (L/min) [4] 2 Oxygen Flow Rate (L/min) [2] 2 Oxygen Flow Rate (L/min) [1 ( 2 Initial Baseline)] Oxygen Flow Rate (L/min) 2 Oxygen Delivery Method [5] Nasal Cannula Oxygen Delivery Method [4] Nasal Cannula Oxygen Delivery Method [3] Room Air Oxygen Delivery Method [2] Nasal Cannula Oxygen Delivery Method [1 ( Nasal Cannula Initial Baseline)] Oxygen Delivery Method Nasal Cannula Weight: 151 lb 0.266 oz Body Mass Index (BMI) 22.8 Intake & Output: Intake and Output for Last 24 Hours 12/04/22 12/05/22 12/06/22 23:59 23:59 23:59 Intake Total 940.42 / 940.42 1360 / 1360 Output Total 1050 / 1050 1100 / 1200 300 / 300 Balance -109.58 / -109.58 260 / 160 -300 / -300 Lab / Micro Data 12/06/22 03:29 12/06/22 03:29 Labs: Laboratory Results - last 24 hr 12/05/22 08:37: POC Glucose 207 H 12/05/22 10:40: POC Glucose 203 H 12/05/22 16:31: POC Glucose 186 H 12/05/22 20:51: POC Glucose 229 H 12/06/22 03:29: WBC 31.8 H*, RBC 2.84 L, Hgb 8.4 L, Hct 25.6 L, MCV 90.1, MCH 29.6, MCHC 32.8, RDW Std Deviation 48.3 H, RDW Coeff of Russell 14.7 H, Plt Count 146 L, MPV 11.5, Neut % (Auto) Not Reportable, Absolute Neuts (auto) 26.1 H, Absolute Lymphs (auto) 1.90, Total Counted 100, Neutrophils % (Manual) 76 H, Band Neutrophils % 6 H, Lymphocytes % (Manual) 6 L, Monocytes % (Manual) 5, Eosinophils % (Manual) 4, Myelocytes % 2 H, Promyelocytes % 1 H, Differential Comment SCANNED, Diff Path Review August, Sodium 135 L, Potassium 4.0, Chloride 104, Carbon Dioxide 19.0 L, Anion Gap 12, BUN 71 H, Creatinine 3.90 H, Estim Creat Clear Calc 14.45, Est GFR (MDRD) Af Amer 19 L, Est GFR (MDRD) Non-Af 16 L, BUN/Creatinine Ratio 18.2, Glucose 278 H, Calcium 7.6 L, Total Bilirubin 0.30, AST 15, ALT 38, Alkaline Phosphatase 335 H, Total Protein 4.2 L, Albumin 1.5 L, Globulin 2.7, Albumin/Globulin Ratio 0.6 L 12/06/22 08:02: POC Glucose 288 H Micro: Microbiology 12/04/22 17:00 Sputum, Expectorated/Coughed Gram Stain - Final 12/04/22 17:00 Sputum, Expectorated/Coughed Respiratory Culture - Preliminary Yeast Like Organism 12/04/22 13:55 Fluid - Thoracentesis Fluid Gram Stain - Final 11/29/22 09:55 Blood Culture (Wb) - Anticubital Right Blood Culture - Final No growth in 5 days. 11/29/22 10:10 Blood Culture (Wb) - Anticubital Left Blood Culture - Final No growth in 5 days. 12/02/22 12:06 Blood Culture (Wb) - Anticubital Right Blood Culture - Preliminary No growth in 48 hours. 12/02/22 12:00 Blood Culture (Wb) - Right Hand Blood Culture - Preliminary No growth in 48 hours. 11/29/22 08:50 Mucosa - Nasopharyngeal Respiratory Panel (PCR) - Final 11/29/22 10:40 Urine, Random Legionella Antigen - Final 11/29/22 10:40 Urine, Random Streptococcus pneumoniae Antigen (M - Final 11/28/22 00:06 Nasal Secretion SARS-CoV-2 Antigen (Rapid) - Final Physical Exam Narrative Right IJ temporary dialysis catheter in place Const oriented x3 and no apparent distress Assessment & Plan Assessment/Plan (1) Acute kidney injury: (2) 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 1 diabetes mellitus: PLAN: Plan This is a 77-year-old male with a history of chronic kidney disease and now acute kidney injury. He is admitted for management of multifocal pneumonia as well as diabetic ketoacidosis and hypertensive urgency. Surgery was consulted for consideration of hemodialysis catheter placement given the patient has an element of volume overload compromising his respiratory status. A nontunneled hemodialysis catheter was placed earlier this week, however, it has been somewhat sluggish with his function on the most recent sessions. I suspect this is due to its position within the SVC rather than the right atrium. Planning for dialysis on Thursday. Tentative plan for tunneled dialysis catheter on Thursday?depending on white blood cell count, continue to hold Plavix. With Dr. Marla Deleon M.D. Pager: [phone] [facility] [address] [place] [address], [address] [place] [id number] Office: [phone] Charges/Coding Visit Charges Inpatient E&M: 65613 Subs Hosp L2
--- NOTE | 2022-12-06 11:27 | VDUE_ITS ---
Reason For Study: Left arm pain Left Proximal Left jugular vein is spontaneous, widely patent, phasic, with no intraluminal echogenicity noted. Left subclavian vein is spontaneous, widely patent, phasic, with no intraluminal echogenicity noted. Left Arm Left axillary vein is spontaneous, patent, phasic, competent, compressible and demonstrates augmentation. Left brachial vein is compressible. Acute superficial vein thrombosis is noted in the left Cephalic vein at distal bicep to antecube. IV noted within vessel. Left basilic vein is compressible. Left Lower Arm Left radial vein is compressible. Left ulnar vein is compressible. VL/Venous Duplex US, Unilateral Interpretation Summary No evidence for acute deep venous thrombosis left upper extremity Superficial thrombophlebitis left cephalic vein at the distal biceps the antecu bital space with a visualized IV catheter within this position. Ordering Physician: Suzette Genao Referring Physician: Cesar Keenan Performed By: Courtney Muhammad RVT ???
--- NOTE | 2022-12-06 11:39 | PN.CARD_ITS ---
Subjective Subjective Sitting up in the chair. Reports breathing better. Objective Data Vital Signs: Vital Signs Temp Pulse Resp BP Pulse Ox O2 Del Method O2 Flow Rate 98.2 F 90 18 125/54 H 92 Nasal Cannula 2 12/06/22 08:00 12/06/22 08:13 12/06/22 08:00 12/06/22 08:00 12/06/22 08:00 12/06/22 08:30 12/06/22 09:25 FiO2 43 12/03/22 07:04 Oxygen Flow Rate (L/min) [5] 2 Oxygen Flow Rate (L/min) [4] 2 Oxygen Flow Rate (L/min) [2] 2 Oxygen Flow Rate (L/min) [1 ( 2 Initial Baseline)] Oxygen Flow Rate (L/min) 2 Oxygen Delivery Method [5] Nasal Cannula Oxygen Delivery Method [4] Nasal Cannula Oxygen Delivery Method [3] Room Air Oxygen Delivery Method [2] Nasal Cannula Oxygen Delivery Method [1 ( Nasal Cannula Initial Baseline)] Oxygen Delivery Method Nasal Cannula Weight: 151 lb 0.266 oz Body Mass Index (BMI) 22.8 Intake & Output: Intake and Output for Last 24 Hours 12/04/22 12/05/22 12/06/22 23:59 23:59 23:59 Intake Total 940.42 / 940.42 1360 / 1360 110 / 110 Output Total 1050 / 1050 1100 / 1200 300 / 300 Balance -109.58 / -109.58 260 / 160 -190 / -190 Lab / Micro Data 12/06/22 03:29 12/06/22 03:29 Labs: Laboratory Results - last 24 hr 12/05/22 16:31: POC Glucose 186 H 12/05/22 20:51: POC Glucose 229 H 12/06/22 03:29: WBC 31.8 H*, RBC 2.84 L, Hgb 8.4 L, Hct 25.6 L, MCV 90.1, MCH 29.6, MCHC 32.8, RDW Std Deviation 48.3 H, RDW Coeff of Russell 14.7 H, Plt Count 146 L, MPV 11.5, Neut % (Auto) Not Reportable, Absolute Neuts (auto) 26.1 H, Absolute Lymphs (auto) 1.90, Total Counted 100, Neutrophils % (Manual) 76 H, Band Neutrophils % 6 H, Lymphocytes % (Manual) 6 L, Monocytes % (Manual) 5, Eosinophils % (Manual) 4, Myelocytes % 2 H, Promyelocytes % 1 H, Differential Comment SCANNED, Diff Path Review August, Sodium 135 L, Potassium 4.0, Chloride 104, Carbon Dioxide 19.0 L, Anion Gap 12, BUN 71 H, Creatinine 3.90 H, Estim Creat Clear Calc 14.45, Est GFR (MDRD) Af Amer 19 L, Est GFR (MDRD) Non-Af 16 L, BUN/Creatinine Ratio 18.2, Glucose 278 H, Calcium 7.6 L, Total Bilirubin 0.30, AST 15, ALT 38, Alkaline Phosphatase 335 H, Total Protein 4.2 L, Albumin 1.5 L, Globulin 2.7, Albumin/Globulin Ratio 0.6 L 12/06/22 08:02: POC Glucose 288 H Micro: Microbiology 12/04/22 17:00 Sputum, Expectorated/Coughed Gram Stain - Final 12/04/22 17:00 Sputum, Expectorated/Coughed Respiratory Culture - Preliminary Yeast Like Organism 12/04/22 13:55 Fluid - Thoracentesis Fluid Gram Stain - Final Cardiology Labs/Tests 12/06/22 03:29: WBC 31.8 H*, RBC 2.84 L, Hgb 8.4 L, Hct 25.6 L, MCV 90.1, MCH 29.6, MCHC 32.8, Plt Count 146 L, MPV 11.5, Neut % (Auto) Not Reportable, Absolute Neuts (auto) 26.1 H, Total Counted 100, Neutrophils % (Manual) 76 H, Band Neutrophils % 6 H, Lymphocytes % (Manual) 6 L, Monocytes % (Manual) 5, Eosinophils % (Manual) 4, Myelocytes % 2 H, Promyelocytes % 1 H, Sodium 135 L, Potassium 4.0, Chloride 104, Carbon Dioxide 19.0 L, Anion Gap 12, BUN 71 H, Creatinine 3.90 H, Est GFR (MDRD) Af Amer 19 L, Est GFR (MDRD) Non-Af 16 L, BUN/Creatinine Ratio 18.2, Glucose 278 H, Calcium 7.6 L, Total Bilirubin 0.30 Rhythm: EKG: ECHO: Stress Test: Cardiac Cath: PCI: CT Surgery: Holter monitor: EPS: PPM: CXR: Chest CT Scan: Physical Exam Narrative Heart sounds 1 and 2 noted. 3/6 systolic murmur at apex and base. Chest with bibasilar crepitus. Abdomen soft. Awake. Alert. 2+ bilateral lower extremity edema. Left arm appears swollen and edematous. No tenderness. Assessment & Plan Assessment/Plan (1) NSTEMI, initial episode of care: PLAN: Non-ST elevation IN in the setting of bilateral pneumonia with hypoxia. Continue medical management. Tentatively plan on coronary angiography on Thursday . (2) Aortic valve stenosis: QUALIFIERS: Cardiac valve disease etiology: nonrheumatic Qualified Code(s): I35.0 - Nonrheumatic aortic (valve) stenosis PLAN: Mild to moderate aortic valve stenosis. Continue to monitor. (3) Dyspnea: PLAN: Bilateral pneumonia. Clinically improved. Also status post thoracentesis. (4) Pneumonia: QUALIFIERS: Pneumonia type: due to unspecified organism Laterality: right Lung location: unspecified part of lung Qualified Code(s): J18.9 - Pneumonia, unspecified organism PLAN: On antibiotics. Manage as per internal medicine. (5) CKD (chronic kidney disease) stage 4, GFR 15-29 ml/min: PLAN: Started on hemodialysis. Nephrology following. (6) Anemia: PLAN: Received 1 unit of packed red cells. Monitor hemoglobin. (7) Diabetes: QUALIFIERS: Diabetes mellitus type: type 1 Diabetes mellitus complication status: with hyperglycemia Qualified Code(s): E10.65 - Type 1 diabetes mellitus with hyperglycemia PLAN: As per internal medicine. PLAN: Plan Left arm swollen. Discussed with hospitalist. For Doppler ultrasound of the left upper extremity.
[2022-12-06] MEDS: Fluconazole 100 MG Tablet PO (11:48)
[2022-12-06 12:23] LABS: Bedside Glucose 229 mg/dL (74-106)
[2022-12-06 17:33] LABS: Bedside Glucose 165 mg/dL (74-106)
[2022-12-06] MEDS: Atorvastatin Calcium 40 MG Tablet PO (22:22)
--- NOTE | 2022-12-06 22:30 | NURSING ---
pt refused to wear Bipap tonight
[2022-12-06 23:13] LABS: Bedside Glucose 170 mg/dL (74-106)
[2022-12-07] VITALS (10 sets, daily range): BP systolic 110–131; BP diastolic 52–57; PULSE 70–83; RESP 16–18; TEMP 36.8–37; O2SAT 92–94; BMI 23.0
[2022-12-07 05:37] LABS: Hematocrit 27.9 % (40-54); Hemoglobin 8.7 g/dL (13.0-16.5); Mean Corp Hgb Conc 31.2 g/dL (32-36); Mean Corpuscular Hgb 30.1 pg (27.0-32.0); Mean Corpuscular Volume 96.5 fL (80-94); Mean Platelet Vol. 12.2 fl (6.2-12.0); POSITIVE COUNT YES; POSITIVE DIFFERENTIAL YES; POSITIVE MORPHOLOGY YES; Platelet Count 162 K/mm3 (150-450); RBC Distribution Width CV 15.3 % (11.6-14.6); RBC Distribution Width SD 53.7 fl (35.1-43.9); Red Blood Count 2.89 M/mm3 (4.6-6.2)
[2022-12-07 05:54] LABS: Differential Indicated MANUAL DIFF
[2022-12-07 05:55] LABS: White Blood Count 33.2 K/mm3 (4.4-11.0)
[2022-12-07 06:06] LABS: ALB/GLOB Ratio 0.5 RATIO (0.9-2.4); AST(SGOT) 22 U/L (15-37); Alanine Aminotransfer ALT/SGPT 36 U/L (16-61); Albumin, Serum 1.5 g/dL (3.2-5.0); Alkaline Phosphatase 338 U/L (45-117); Anion Gap 11 (5-15); BUN 83 mg/dL (7-18); Calcium,Total 7.8 mg/dL (8.5-10.1); Chloride 104 mmol/L (98-107); Creatinine, Serum 4.15 mg/dL (0.70-1.30); EST Glomerular Filtration Rate 15 mL/min (>60); Est Glom Filt Rate - Afr Amer 18 mL/min (>60); Estimated Creatinine Clearance 13.96 ml/min; Globulin 2.8 g/dL (2.2-4.2); Glucose 286 mg/dL (74-106); Potassium 4.5 mmol/L (3.5-5.1); Protein, Total 4.3 g/dL (6.4-8.2); Sodium Level 133 mmol/L (136-145)
[2022-12-07 06:07] LABS: Eosinophil 9 % (0-5); Lymphocyte 11 % (19-41); Metamyelocyte 2 % (0-1); Monocyte 3 % (0-10); Myelocyte 2 % (0-0); Neutrophil-Band 8 % (0-5); Neutrophil-Segmented 64 % (47-70); Total Cells Counted 100 (MANUAL DIFF)
[2022-12-07 06:08] LABS: Atypical Lymphocyte RARE %; Platelet Estimate ADEQUATE (ADEQ)
[2022-12-07 06:09] LABS: Red Cell Morphology NORM C+C NORMAL (NORM C&C)
[2022-12-07 06:10] LABS: Absolute Neutrophil Count 23.9 X10^3/uL (2.0-7.7); Neutrophil # 23.91 X10^3/uL (2.7-7.7)
[2022-12-07 06:11] LABS: Absolute Lymphocyte Count 3.65 X10^3/uL (0.83-4.51); Lymphocyte # 3.65 X10^3/ul (0.83-4.51)
--- NOTE | 2022-12-07 06:41 | PCM.PN.HOSP ---
Reason for Visit Reason for Visit: Diagnoses Sepsis, unspecified organism (11/28/22) Anemia, unspecified (11/28/22) Type 1 diabetes mellitus with ketoacidosis without coma (11/28/22) Type 1 diabetes mellitus with diabetic chronic kidney disease (11/28/22) Type 1 diabetes mellitus with hyperglycemia (11/28/22) Hyperkalemia (11/28/22) Non-ST elevation (NSTEMI) myocardial infarction (11/28/22) Nonrheumatic aortic (valve) stenosis (11/28/22) Pneumonia, unspecified organism (11/28/22) Acute respiratory failure with hypoxia (11/28/22) Acute kidney failure, unspecified (11/28/22) Chronic kidney disease, stage 4 (severe) (11/28/22) Dyspnea, unspecified (11/28/22) Severe sepsis without septic shock (11/28/22) Other specified abnormalities of plasma proteins (11/28/22) Subjective Subjective Given patient ongoing significant leukocytosis with no overt etiology discussed case and patient was evaluated by hematology/oncology to be cautious to avoid any delays further with placement of tunneled catheter. Patient did admit as well as spouse that prior to his admission on the Thursday prior he did have back injections with a type of steroid and awaiting clarification with Dr. Gonzalez office with order requested for information. Hematology/oncology feels that this could be the etiology for his elevated white count even though this is been greater than a week out but agrees with continued treatment of pneumonia/Brenna at this time. Patient reports feeling well except does complain of some bilateral lower extremity swelling and left upper extremity swelling. Duplex ultrasound this morning with wet read negative of note. Patient denies fevers, chills, nausea, emesis, abdominal pain, chest pain or dyspnea. Objective Data Objective Data Vital Signs: Vital Signs Temp Pulse Resp BP Pulse Ox O2 Del Method O2 Flow Rate 98.2 F 78 18 128/55 H 93 Nasal Cannula 2 12/07/22 04:40 12/07/22 04:40 12/07/22 04:40 12/07/22 04:40 12/07/22 04:40 12/07/22 04:48 12/07/22 04:48 FiO2 43 12/03/22 07:04 Oxygen Flow Rate (L/min) [5] 2 Oxygen Flow Rate (L/min) [4] 2 Oxygen Flow Rate (L/min) [2] 2 Oxygen Flow Rate (L/min) [1 ( 2 Initial Baseline)] Oxygen Flow Rate (L/min) 2 Oxygen Delivery Method [5] Nasal Cannula Oxygen Delivery Method [4] Nasal Cannula Oxygen Delivery Method [3] Room Air Oxygen Delivery Method [2] Nasal Cannula Oxygen Delivery Method [1 ( Nasal Cannula Initial Baseline)] Oxygen Delivery Method Nasal Cannula Weight: 152 lb 1.903 oz Body Mass Index (BMI) 23.0 Intake & Output: Intake and Output for Last 24 Hours 12/05/22 12/06/22 12/07/22 23:59 23:59 23:59 Intake Total 1360 / 1360 760 / 760 Output Total 1100 / 1200 950 / 950 200 / 200 Balance 260 / 160 -190 / -190 -200 / -200 Lab / Micro Data 12/07/22 05:13 12/07/22 05:13 Labs: Laboratory Results - last 24 hr 12/06/22 08:02: POC Glucose 288 H 12/06/22 12:05: POC Glucose 229 H 12/06/22 17:15: POC Glucose 165 H 12/06/22 22:30: POC Glucose 170 H 12/07/22 05:13: WBC 33.2 H*, RBC 2.89 L, Hgb 8.7 L, Hct 27.9 L, MCV 96.5 H D, MCH 30.1, MCHC 31.2 L, RDW Std Deviation 53.7 H, RDW Coeff of Russell 15.3 H, Plt Count 162, MPV 12.2 H, Neut % (Auto) Not Reportable, Absolute Neuts (auto) 23.9 H, Absolute Lymphs (auto) 3.65, Total Counted 100, Neutrophils % (Manual) 64, Band Neutrophils % 8 H, Lymphocytes % (Manual) 11 L, Monocytes % (Manual) 3, Eosinophils % (Manual) 9 H, Metamyelocytes % 2 H, Myelocytes % 2 H, Diff Path Review May foll, Atypical Lymphocytes RARE, Platelet Estimate ADEQUATE, RBC Morphology NORM C+C, Sodium 133 L, Potassium 4.5, Chloride 104, Carbon Dioxide 18.0 L, Anion Gap 11, BUN 83 H, Creatinine 4.15 H, Estim Creat Clear Calc 13.96, Est GFR (MDRD) Af Amer 18 L, Est GFR (MDRD) Non-Af 15 L, BUN/Creatinine Ratio 20.0, Glucose 286 H, Calcium 7.8 L, Total Bilirubin 0.30, AST 22, ALT 36, Alkaline Phosphatase 338 H, Total Protein 4.3 L, Albumin 1.5 L, Globulin 2.8, Albumin/Globulin Ratio 0.5 L Micro: Microbiology 12/04/22 17:00 Sputum, Expectorated/Coughed Gram Stain - Final 12/04/22 17:00 Sputum, Expectorated/Coughed Respiratory Culture - Final Presumptive C albicans 12/04/22 13:55 Fluid - Thoracentesis Fluid Gram Stain - Final 11/29/22 09:55 Blood Culture (Wb) - Anticubital Right Blood Culture - Final No growth in 5 days. 11/29/22 10:10 Blood Culture (Wb) - Anticubital Left Blood Culture - Final No growth in 5 days. 12/02/22 12:06 Blood Culture (Wb) - Anticubital Right Blood Culture - Preliminary No growth in 48 hours. 12/02/22 12:00 Blood Culture (Wb) - Right Hand Blood Culture - Preliminary No growth in 48 hours. 11/29/22 08:50 Mucosa - Nasopharyngeal Respiratory Panel (PCR) - Final 11/29/22 10:40 Urine, Random Legionella Antigen - Final 11/29/22 10:40 Urine, Random Streptococcus pneumoniae Antigen (M - Final 11/28/22 00:06 Nasal Secretion SARS-CoV-2 Antigen (Rapid) - Final Physical Exam Narrative Physical Examination: General: Awake, alert, oriented x 3 and cooperative, seated upright in the ICU bed, no acute distress. Skin: Normal color, normal turgor, no icterus, no cyanosis except occasional very staged ecchymoses to the extremities. HEENT: AT/NC, EOMI, PERRLA, MMM. Lungs: Diminished, improved at bases than previously though, no marked rales, rhonchi or wheezing. Heart: Regular rate and rhythm; no gallop, rub audible, + SM. Abdomen: Soft, NTTP, ND, normal BS. Extremities: No cyanosis, no clubbing, left upper extremity edema, nontender to palpation, duplex ultrasound with negative wet read and discussed with patient would place snug Telly wraps with elevation to assist, bilateral lower extremity 2+ pitting edema distally pedal to mid stewart. Neurological: Patient awake, alert, oriented as noted, cognitive function intact; pupils equally reactive to light and accommodation, cranial nerves grossly normal, moving all 4 extremities, no focal deficits, strength improved, moderately to severely globally decreased secondary to acute presentation. Psychiatric: Affect appears fatigued today but following discussions appears to be improved mood, ongoing treatment with sertraline for depressed mood with prolonged hospitalization per patient and family request, seems to be tolerating. Assessment & Plan Assessment/Plan (1) Acute respiratory failure with hypoxia: PLAN: Plan The patient is a 77 y/o M w/ PMHx: Chronic anemia/Fe deficiency anemia, BPH, Prostate CA, HTN, HLD, NIKHIL, COPD, Former tobacco use, Diabetes mellitus type II, CKD stage IV who presents to the [facility] ED on 12/01/22 with history of dyspnea, worse with exertion with productive green sputum as well as chills in addition to polyuria and polydipsia prompting eventual ED evaluation. #1. Acute Hypoxic and Hypercarbic Respiratory Failure, multifactorial, secondary to Acute Combined Acute Systolic/Diastolic CHF Exacerbation complicated by underlying valvular heart disease/aortic stenosis and Concurrent bilateral lower lobe and lingular pneumonia as well as complicated by moderate pleural effusions as well as underlying COPD history: Patient initially admitted to the ICU on BiPAP but given improvement transitioned to PCU status, 11/30/2022 chest x-ray with mildly decreased bilateral pneumonia evidence, ECHO w/ EF 4045%, SANDEEP calculated 0.98 cm?, aortic maximal pressure gradient 33.1 mmHg, aortic mean pressure gradient 19.8 mmHg, moderate to severe AV stenosis/calcific, grade 1 diastolic dysfunction with recommendation for hog driver for dobutamine stress echo to assess severity of AV stenosis with no prior comparison, rapid SARS COVID and influenza antigen negative, full respiratory panel negative, negative Legionella and strep pneumonia antigens, blood culture x2 pending (11/29/22), initially maintained on IV Rocephin as well as IV of azithromycin (start 11/29/22); however, 12/02/22 worsened status overnight and increasing WBC with L shift thus transitioned per discussion with Pulmonary medicine to IV Vanc and IV Zosyn therapy but 12/03/22 unfortunately red man syndrome presentation with d/c IV vanc-->12/04/22 Infectious disease abx change to Meropenem, ATC DuoNeb therapy, PRN albuterol, continue aspirin, statin, plavix and metoprolol added per Cardiology. Recommendation for diuretic challenge now that DKA has resolved this patient did require initial IV fluid administration but given worsened overnight into 12/02/2022 AM with high flow need--> BIPAP lasix 40 mg IV x 1 administered, worsened lab appearance, 12/02/22 transitioned to the ICU. Surgery placed temporary access and HD initiated with Plavix still on hold with Bld Cx x 2 obtained and no growth noted per discussion with general surgery with plans for tunneled line potentially this coming week early if WBC improves per their report. CT chest obtained w/ noted BL lower lobe/lingula consolidation and 12/04/22 ultrasound-guided left pleural effusion thoracentesis with removal of approximately 650 mL of clear straw fluid, cultures pending with follow-up chest x-ray later in the day with resolution of previously noted left-sided effusion with stable trace right pleural effusion and bibasilar atelectasis/airspace disease. 12/05/2022 sputum culture with noted 3+ yeastlike organism and following discussion with infectious disease patient initiated on Diflucan with a 200 mg p.o. x1 loading dose and transition to 100 mg p.o. daily. 12/04/22 Thoracentesis Culture L sided effusion with no marked organisms with pending final. 12/07/22 CBC w/ WBC 33.2 with no L shift and again afebrile, no obvious source, given family and surgery concern as delaying tunnelled catheter patient evaluated by hematology/Oncology and from discussions patient apparently did have back injections Thursday prior to admission and currently awaiting clarification of steroid but hematology feels like this still could be related to that situation. #2. Acute NSTEMI: Presentation EKG with sinus rhythm with no acute evidence of ischemia, initial troponin 11/28/2022 301 trending upward with last 11/30/2019 72796, 11/29/2022 ECHO w/ EF 4045%, SANDEEP calculated 0.98 cm?, aortic maximal pressure gradient 33.1 mmHg, aortic mean pressure gradient 19.8 mmHg, moderate to severe AV stenosis/calcific, grade 1 diastolic dysfunction with recommendation for hog driver for dobutamine stress echo to assess severity of AV stenosis with no prior comparison, initially maintained on heparin drip which was held for HD access placement and transitioned to SC following. Cardiology consulted, following and initially planned catheterization 12/01/22 however concern for low hgb and ongoing issues with overload eventually started on HD as noted this was postponed. Maintained on aspirin, statin, plavix and metoprolol added per Cardiology but given planned tunnelled catheter for HD planned once Bld Cx negative, plavix currently held, add back as soon as able with noted 12/02/2022 blood culture x2 negative with plan for tunneled catheter placement per surgery from discussion this Thursday. Given plan for catheter placement discussed with cardiology and at this time would hold on cardiac catheterization in case PCI is necessary as antiplatelet would need to be started thus attempting to time this so that patient can have the catheter just prior. #3. DKA: Hemoglobin A1c 11/29/2022 9.2% increased from most recently noted remotely 01/04/2018 8.5%, patient initially maintained on DKA protocol with eventual anion gap closure x2 and normalization of bicarb with insulin drip transitioned to Lantus with concurrent insulin sliding scale with Accu-Chek, will continue ADA diet with overlapping insulin sliding scale and scheduled, encourage appropriate lifestyle and diet changes, nutrition consulted. 12/02/22 increased BS, decompensated as noted above, administered increased short acting x 1, improved. Will continue to trend and alter insulin regimen as needed. #4. Acute kidney injury on CKD stage IV: Secondary to DKA presentation. Admission BUN/Cr 66/4.20, prior baseline creatinine noted to be primarily 3.0-3.3, 12/01/22 BUN/Cr 66/3.67-->12/02/22 BUN/Cr 86/4.56-->12/04/22 BUN/Cr 65/3.84--> 12/05/22 BUN/Cr 76/4.31-->12/06/22 BUN/Cr 71/3.90-->12/07/22 BUN/Cr 83/4.15. Dr. Townsend following w/ AVF recommended in preparation for future HD however patient has declined but agreed to temporarily HD catheter initially but following more discussions amenable to event AVF outpatient. Worsening status 12/02/22, temporary access placed and patient started on HD. Plavix temporarily on hold for tunnelled catheter procedure per Surgery which they note likely will be done this coming week but still hesitant given WBC although cultures remain negative. #5. Hypertensive Urgency: Initial presentation blood pressures 190s over 70s to 100s, suspected to have contributed to acute presentation #1, currently maintained only on amlodipine, metoprolol added per Cardiology. #6. Acute hyponatremia, multifactorial given #1 potentially initially hypovolemic however eventually following hydration suspected of enteral volume overload: Admission sodium 124, as noted judiciously hydrated given DKA however now concern for possibly fluid overload with possible initiation of diuretic challenge per pulmonary recommendation, 12/01/22 Na 135-->12/07/22 Na 133. #7. Acute on Chronic normocytic/iron deficiency anemia: Admission hemoglobin 9.8, baseline prior to this primarily 8-, 12/01/2022 7.2 and given Cardiology concern for proceeding with catheterization with Hgb at that level given presentation 1 u PRBC administered, 12/07/22 CBC w/ Hgb 8.7. #8. Depression, situational: Patient and spouse concerned as patient has significantly low mood which is expected given his prolonged hospitalization and continued issues but at this time requesting to start medication, 12/05/2022 started low-dose sertraline and may titrate upward, will benefit also from ongoing discussions and counseling. #9. Left upper extremity swelling: To be cautious duplex ultrasound left upper extremity ordered and wet read noted to be negative, snug Telly wraps with elevation requested. #10. Former tobacco use: Encourage continued tobacco cessation. #11. BPH: We will continue patient finasteride home regimen #12. NIKHIL: BiPAP normally q HS. #13. Hyperlipidemia: We will continue patient on statin therapy. #14. DVT prophylaxis: Heparin drip discontinued, heparin SC. #15. CODE STATUS: Full Code. Charges/Coding Visit Charges Inpatient E&M: 87076 Subs Hosp L2
[2022-12-07] MEDS: Ipratropium/Albuterol Sulfate 3 ML AMPUL.NEB INHALATION ×3 (06:51→20:02)
[2022-12-07 08:30] LABS: Bedside Glucose 344 mg/dL (74-106)
--- NOTE | 2022-12-07 08:36 | PN.SURG_ITS ---
Subjective Subjective Patient white blood count up to 33.2. Patient denies abdominal pain tolerating diet and having bowel function. Objective Data Objective Data Vital Signs: Vital Signs Temp Pulse Resp BP Pulse Ox O2 Del Method O2 Flow Rate 98.2 F 70 18 128/55 H 94 Nasal Cannula 2 12/07/22 04:40 12/07/22 06:52 12/07/22 06:52 12/07/22 04:40 12/07/22 06:52 12/07/22 06:52 12/07/22 06:52 FiO2 43 12/03/22 07:04 Oxygen Flow Rate (L/min) [5] 2 Oxygen Flow Rate (L/min) [4] 2 Oxygen Flow Rate (L/min) [2] 2 Oxygen Flow Rate (L/min) [1 ( 2 Initial Baseline)] Oxygen Flow Rate (L/min) 2 Oxygen Delivery Method [5] Nasal Cannula Oxygen Delivery Method [4] Nasal Cannula Oxygen Delivery Method [3] Room Air Oxygen Delivery Method [2] Nasal Cannula Oxygen Delivery Method [1 ( Nasal Cannula Initial Baseline)] Oxygen Delivery Method Nasal Cannula Weight: 152 lb 1.903 oz Body Mass Index (BMI) 23.0 Intake & Output: Intake and Output for Last 24 Hours 12/05/22 12/06/22 12/07/22 23:59 23:59 23:59 Intake Total 1360 / 1360 760 / 760 Output Total 1100 / 1200 950 / 950 200 / 200 Balance 260 / 160 -190 / -190 -200 / -200 Lab / Micro Data 12/07/22 05:13 12/07/22 05:13 Labs: Laboratory Results - last 24 hr 12/06/22 12:05: POC Glucose 229 H 12/06/22 17:15: POC Glucose 165 H 12/06/22 22:30: POC Glucose 170 H 12/07/22 05:13: WBC 33.2 H*, RBC 2.89 L, Hgb 8.7 L, Hct 27.9 L, MCV 96.5 H D, MCH 30.1, MCHC 31.2 L, RDW Std Deviation 53.7 H, RDW Coeff of Russell 15.3 H, Plt Count 162, MPV 12.2 H, Neut % (Auto) Not Reportable, Absolute Neuts (auto) 23.9 H, Absolute Lymphs (auto) 3.65, Total Counted 100, Neutrophils % (Manual) 64, Band Neutrophils % 8 H, Lymphocytes % (Manual) 11 L, Monocytes % (Manual) 3, Eosinophils % (Manual) 9 H, Metamyelocytes % 2 H, Myelocytes % 2 H, Diff Path Review May foll, Atypical Lymphocytes RARE, Platelet Estimate ADEQUATE, RBC Morphology NORM C+C, Sodium 133 L, Potassium 4.5, Chloride 104, Carbon Dioxide 18.0 L, Anion Gap 11, BUN 83 H, Creatinine 4.15 H, Estim Creat Clear Calc 13.96, Est GFR (MDRD) Af Amer 18 L, Est GFR (MDRD) Non-Af 15 L, BUN/Creatinine Ratio 20.0, Glucose 286 H, Calcium 7.8 L, Total Bilirubin 0.30, AST 22, ALT 36, Alkaline Phosphatase 338 H, Total Protein 4.3 L, Albumin 1.5 L, Globulin 2.8, Albumin/Globulin Ratio 0.5 L 12/07/22 08:10: POC Glucose 344 H Micro: Microbiology 12/04/22 17:00 Sputum, Expectorated/Coughed Gram Stain - Final 12/04/22 17:00 Sputum, Expectorated/Coughed Respiratory Culture - Final Presumptive C albicans 12/04/22 13:55 Fluid - Thoracentesis Fluid Gram Stain - Final 11/29/22 09:55 Blood Culture (Wb) - Anticubital Right Blood Culture - Final No growth in 5 days. 11/29/22 10:10 Blood Culture (Wb) - Anticubital Left Blood Culture - Final No growth in 5 days. 12/02/22 12:06 Blood Culture (Wb) - Anticubital Right Blood Culture - Preliminary No growth in 48 hours. 12/02/22 12:00 Blood Culture (Wb) - Right Hand Blood Culture - Preliminary No growth in 48 hours. 11/29/22 08:50 Mucosa - Nasopharyngeal Respiratory Panel (PCR) - Final 11/29/22 10:40 Urine, Random Legionella Antigen - Final 11/29/22 10:40 Urine, Random Streptococcus pneumoniae Antigen (M - Final 11/28/22 00:06 Nasal Secretion SARS-CoV-2 Antigen (Rapid) - Final Physical Exam Narrative Right IJ temporary dialysis catheter in place Const oriented x3 and no apparent distress GI soft to palpation and non-tender Inspection: Negative for abdominal distention Assessment & Plan Assessment/Plan (1) Acute kidney injury: (2) 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 1 diabetes mellitus: PLAN: Plan This is a 77-year-old male with a history of chronic kidney disease and now acut e kidney injury. He is admitted for management of multifocal pneumonia as well as diabetic ketoacidosis and hypertensive urgency. Surgery was consulted for consideration of hemodialysis catheter placement given the patient has an element of volume overload compromising his respiratory status. A nontunneled hemodialysis catheter was placed earlier this week, however, it has been somewhat sluggish with his function on the most recent sessions. I suspect this is due to its position within the SVC rather than the right atrium. Planning for dialysis on Thursday. Tentative plan for tunneled dialysis catheter on Thursday?depending on white blood cell count-if white blood cell count continues to be high may be delayed, continue to hold Plavix. With Dr. Marla Deleon M.D. Pager: [phone] [facility] [address] [place] [address], [facility], [address] [place] [id number] Office: [phone] Charges/Coding Visit Charges Inpatient E&M: 14566 Subs Hosp L2
[2022-12-07] MEDS: Insulin Lispro 100 UNIT/ML INSULN.PEN SC ×4 (09:10→22:10)
[2022-12-07] MEDS: Insulin Glargine-YFGN 100 UNIT/ML Pen 15 UNIT SC (09:11)
[2022-12-07] MEDS: Insulin Lispro 100 UNIT/ML INSULN.PEN 10 UNIT SC ×3 (09:11→16:38)
[2022-12-07] MEDS: Gabapentin 100 MG Capsule 200 MG PO ×3 (09:11→16:40)
[2022-12-07] MEDS: Folic Acid 1 MG Tablet 0.5 MG PO ×2 (09:12→16:37)
[2022-12-07] MEDS: Cholecalciferol (Vit D3) 125 MCG CAPSULE (5,000 UNITS) PO (09:12)
[2022-12-07] MEDS: Docusate Sodium 100 MG Capsule 200 MG PO ×2 (09:12→22:09)
[2022-12-07] MEDS: Acetaminophen 325 MG Tablet 650 MG PO (09:12)
[2022-12-07] MEDS: Sertraline 50 MG Tablet PO (09:13)
[2022-12-07] MEDS: Multivitamins,Therapeutic Tablet 1 TABLET PO (09:13)
[2022-12-07] MEDS: Metoprolol Tartrate 25 MG Tablet 12.5 MG PO ×2 (09:13→22:10)
[2022-12-07] MEDS: Magnesium Chloride 64 MG Delay Rel.Tablet 128 MG PO (09:13)
[2022-12-07] MEDS: Aspirin E.C. 81 MG Tablet PO (09:13)
[2022-12-07] MEDS: Ferrous Sulfate 325 MG Tablet PO (09:13)
[2022-12-07] MEDS: Multivitamin (Healthy Eyes) Capsule 1 CAP PO (09:13)
[2022-12-07] MEDS: amLODIPine 5 MG Tablet PO (09:14)
[2022-12-07] MEDS: Finasteride 5 MG Tablet PO (09:14)
[2022-12-07] MEDS: Fluconazole 100 MG Tablet PO (09:14)
[2022-12-07] MEDS: Calcium Carbonate 500 MG Tablet PO (09:18)
[2022-12-07] MEDS: Pantoprazole Sodium 40 MG Tablet PO ×2 (09:18→22:09)
--- NOTE | 2022-12-07 11:53 | ONC.CONSULT ---
Assessment & Plan Assessment/Plan (1) Acquired neutrophilia: Status: Acute Code(s): D72.828 - Other elevated white blood cell count Plan: This is most likely due to Steroid injection he got as outpatient the day before he came into the hospital. Suggest supportive management. Reassured that it will improve with time. (2) Acute kidney injury: Status: Acute Code(s): N17.9 - Acute kidney failure, unspecified Plan: Continue supportive care. HPI Consult Data Date of Service:: 12/07/22 PCP / Referring Provider: Dr. Cesar Keenan MD Attending: Dr. Suzette Genao MD Chief Complaint Chief Complaint: Asked to see Pt for Leukocytosis. Interval History Interval History: 77-year-old man with history of multiple medical problems occluding diabetes, COPD, heart failure and chronic back pain was admitted on 11/28/2022 with hyperosmolar state, pneumonia, respiratory failure and Acute renal failure. His WBC and neutrophils has been increasing since admission, today neutrophils are 23.9. Work up for sepsis is negative. He received steroid injection for back/neck pain on 11/27/2022. Advanced Directives Power of Meat Boner: Yes Living Will: No [facility] Medical History Alcohol use Anemia Aortic root dilatation Arthritis Atherosclerotic heart disease of [place] coronary artery without angina pectoris Back pain Back problem Bone fracture Bronchitis Cataracts, bilateral Chronic neck and back pain CKD (chronic kidney disease), stage IV COPD (chronic obstructive pulmonary disease) Diabetic retinopathy associated with type 1 diabetes mellitus Dietary restriction Dyspnea on exertion Essential hypertension Family history of hyperlipidemia Family history of hypertension Former smoker Headache Hearing loss, left Hearing loss, right Hearing problem High cholesterol History of echocardiogram History of pain when walking History of stress test Hyperlipidemia Hypertension Hypertension 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 Kidney 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 Mixed hyperlipidemia Nicotine abuse Olecranon bursitis, left elbow Olecranon bursitis, right elbow Osteoarthritis Osteopenia Prostate disease Shortness of breath on exertion Skin mole Sleep apnea Smoker Swelling of right elbow Unintentional weight loss of more than 10 pounds Vision problem Wears dentures Wears glasses Wears hearing aid Wears hearing aid in both ears Home Medications aspirin 81 mg tablet,delayed release (Adult Low Dose Aspirin) 81 mg PO QDAY 06/15/17 [History Last Taken 05/27/21] finasteride 5 mg tablet (Proscar) 5 mg PO QDAY 06/16/17 [History Last Taken Unknown] lisinopril 40 mg tablet 40 mg PO QDAY 06/16/17 [History Last Taken 05/29/21] multivitamin 1 tab PO QDAY 06/16/17 [History Last Taken Unknown] insulin lispro 200 unit/mL (3 mL) subcutaneous pen (Humalog KwikPen U-200 Insulin) See Rx Instructions subcut TID 10/24/21 [History Last Taken Unknown] ferrous sulfate 325 mg (65 mg iron) tablet 325 mg PO DAILY #90 tabs 12/30/21 [Rx Last Taken Unknown] flash glucose scanning reader (SCONTO DIGITALEStyle Tani 2 Fyffe) #2 ea 03/28/22 [Rx Last Taken Unknown] flash glucose sensor (FreeStyle Tani 2 Sensor kit) #2 ea 03/28/22 [Rx Last Taken Unknown] rosuvastatin 20 mg tablet 20 mg PO DAILY 04/24/22 [History Last Taken Unknown] amlodipine 10 mg tablet 10 mg PO DAILY 04/30/22 [History Last Taken Unknown] docusate sodium 100 mg capsule (Colace) 200 mg PO BID 04/30/22 [History Last Taken Unknown] magnesium oxide 400 mg PO DAILY 04/30/22 [History Last Taken Unknown] vitamins A,C,L-gogb-vmtufp 4,296 mcg-226 mg-90 mg capsule (Vision Formula (vits E-L-J-zinc-copper)) 1 cap PO ONCE 04/30/22 [History Last Taken Unknown] bisacodyl 5 mg tablet,delayed release 5 mg PO ONCE 05/05/22 [History Last Taken Unknown] calcium citrate 200 mg (950 mg) tablet 200 mg PO DAILY 05/05/22 [History Last Taken Unknown] cholecalciferol (vitamin D3) 125 mcg (5,000 unit) capsule 125 mcg PO DAILY 05/05/22 [History Last Taken Unknown] cinnamon bark 500 mg capsule (Cinnamon) 1,000 mg PO DAILY 05/05/22 [History Last Taken Unknown] furosemide 40 mg tablet 40 mg PO DAILY 05/05/22 [History Last Taken Unknown] folic acid 400 mcg tablet 500 mcg PO BID 06/27/22 [History Last Taken Unknown] gabapentin 300 mg capsule 300 mg PO TID 06/27/22 [History Last Taken Unknown] insulin glargine 100 unit/mL (3 mL) subcutaneous pen (Lantus Solostar U-100 Insulin) 10 unit subcut DAILY 10/27/22 [History Last Taken Unknown] Allergy/AdvReac Type Severity Reaction Status Date / Time levofloxacin [From Levaquin] Allergy Hives Verified 11/28/22 21:34 vancomycin AdvReac Severe Rash Verified 12/04/22 11:43 Family History Father Diabetes Hypertension Family history of hyperlipidemia Asthma Kidney disease Mother Diabetes Brother Cancer Throat cancer Brother CAD (coronary artery disease) Myocardial infarction, Onset Age: 52 Sister Family history of hyperlipidemia Hypertension Diabetes Unknown Alcoholism Arthritis Depression Diabetes Hypertension Hyperlipidemia Osteoporosis Respiratory disease Pancreatic cancer Other Family history of hypertension Surgical History Fracture of left patella Fracture of left upper extremity History of bilateral inguinal hernia repair (~2007) History of colonoscopy (~2013) History of hemorrhoidectomy (~2000) History of hernia repair (~1991) stent replacement for right sided kidney stome Wrist fracture, bilateral Social History Smoking Status: Current every day smoker tobacco type: cigarettes Tobacco: How many years used: 50 alcohol intake: current alcohol intake frequency: a few times a month substance use type: does not use caffeine: Yes Type: coffee Number of servings: 2 what type of physical activity do you participate in: none seatbelt use: sometimes do you feel safe at home: Yes Physical Exam Narrative Elderly man, lying in bed. Const alert and oriented x3 HEENT normocephalic Eyes no scleral icterus Neck Neck Narrative: +Central vein Catheter. Lymph Lymphatic: no lymphadenopathy noted Resp normal respiratory effort and clear to auscultation bilaterally Cardio regular rhythm, S1 normal heart sound and S2 normal heart sound GI normal to inspection, nondistended, normoactive bowel sounds Extremity Extremity Narrative: +swelling of R and L upper extremities, L>>R. +bilateral lower extremities edema. Neuro CN's II-XII intact bilaterally and moves all extremities Vital Signs Temperature 98.6 F 12/07/22 09:10 Temperature Source Oral 12/07/22 09:10 Pulse Rate 83 12/07/22 09:13 Pulse Strength Normal (2+) 12/07/22 08:50 Respiratory Rate 18 12/07/22 09:10 Respiratory Effort Normal, Non-Labored 12/07/22 08:15 Respiratory Depth Normal 12/07/22 08:15 Respiratory Pattern Normal 12/07/22 08:15 Blood Pressure 131/57 H 12/07/22 09:10 Blood Pressure Mean 81 12/07/22 09:10 Blood Pressure Source Monitor 12/07/22 09:10 Blood Pressure Position Semi-Fowlers 12/07/22 09:10 Blood Pressure Location Right Forearm 12/07/22 09:10 Pulse Ox 92 12/07/22 09:10 Oxygen Delivery Method Nasal Cannula 12/07/22 09:10 Oxygen Flow Rate (L/min) 2 12/07/22 09:10 Fraction of Inspired Oxygen (FIO2) 43 12/03/22 07:04 Laboratory Results - last 24 hr 12/06/22 12:05: POC Glucose 229 H 12/06/22 17:15: POC Glucose 165 H 12/06/22 22:30: POC Glucose 170 H 12/07/22 05:13: WBC 33.2 H*, RBC 2.89 L, Hgb 8.7 L, Hct 27.9 L, MCV 96.5 H D, MCH 30.1, MCHC 31.2 L, RDW Std Deviation 53.7 H, RDW Coeff of Russell 15.3 H, Plt Count 162, MPV 12.2 H, Neut % (Auto) Not Reportable, Absolute Neuts (auto) 23.9 H, Absolute Lymphs (auto) 3.65, Total Counted 100, Neutrophils % (Manual) 64, Band Neutrophils % 8 H, Lymphocytes % (Manual) 11 L, Monocytes % (Manual) 3, Eosinophils % (Manual) 9 H, Metamyelocytes % 2 H, Myelocytes % 2 H, Diff Path Review May foll, Atypical Lymphocytes RARE, Platelet Estimate ADEQUATE, RBC Morphology NORM C+C, Sodium 133 L, Potassium 4.5, Chloride 104, Carbon Dioxide 18.0 L, Anion Gap 11, BUN 83 H, Creatinine 4.15 H, Estim Creat Clear Calc 13.96, Est GFR (MDRD) Af Amer 18 L, Est GFR (MDRD) Non-Af 15 L, BUN/Creatinine Ratio 20.0, Glucose 286 H, Calcium 7.8 L, Total Bilirubin 0.30, AST 22, ALT 36, Alkaline Phosphatase 338 H, Total Protein 4.3 L, Albumin 1.5 L, Globulin 2.8, Albumin/Globulin Ratio 0.5 L 12/07/22 08:10: POC Glucose 344 H Microbiology 12/04/22 13:55 Fluid - Thoracentesis Fluid Gram Stain - Final 12/04/22 13:55 Fluid - Thoracentesis Fluid Body Fluid Culture - Final Culture exhibits no growth. 12/04/22 17:00 Sputum, Expectorated/Coughed Gram Stain - Final 12/04/22 17:00 Sputum, Expectorated/Coughed Respiratory Culture - Final Presumptive C albicans Diagnostic Data Brain CT 11/28/22 22:30 IMPRESSION: No acute intracranial pathology. Chronic left maxillary sinus disease with osseous changes sinus hightower. Electronically Signed: César Haines DO at 22:47 EDT , Echocardiogram 11/29/22 05:04 Interpretation Summary The estimated ejection fraction is 40-45 %. Aortic valve area calculated 0.98 cm?? Aortic maximal pressure gradient 33.1 millimeters mercury Aortic mean pressure gradient of 19.8 millimeters mercury Moderate to severe aortic valve stenosis/calcific With a low ejection fraction 40-45% Grade 1 diastolic dysfunction Recommendation: Dobutamine stress echocardiogram to assess severity of aortic valve stenosis. No prior echo to compare. Ordering Physician: Mushtaq Schmidt Performed By: Sherwin Drake RCS Chest CT 12/04/22 06:13 IMPRESSION: Moderate pleural effusions, with consolidations in the lingula and bilateral lower lobes. This likely indicates pneumonia. Electronically Signed: Reji Miles MD at 7:21 EDT , Thoracentesis Ultrasound 12/04/22 08:03 IMPRESSION: Ultrasound guided diagnostic and therapeutic paracentesis of a left pleural effusion. Small right-sided pleural effusion is also present although this does not appear to be large enough to drain at this time. Ultrasound-guided thoracentesis can be obtained if increase in size of the right-sided pleural effusion on follow-up chest x-ray imaging. Electronically Signed: Erasmo To DO at 14:58 EDT , Chest X-Ray 12/04/22 13:53 IMPRESSION: 1. Resolution of the previously seen small left-sided pleural effusion status post thoracentesis. 2. No sizable pneumothorax postthoracentesis. 3. Stable trace right pleural effusion and bibasilar atelectasis/airspace disease. Electronically Signed: Erasmo To DO at 14:47 EDT , Charges/Coding Visit Charges Office Visits / Consults: [id number] IP Consult L3
[2022-12-07 16:58] LABS: Bedside Glucose 292 mg/dL (74-106)
[2022-12-07 20:08] LABS: Bedside Glucose 313 mg/dL (74-106)
[2022-12-07] MEDS: Atorvastatin Calcium 40 MG Tablet PO (22:09)
[2022-12-07 22:56] LABS: Bedside Glucose 406 mg/dL (74-106)
[2022-12-08] VITALS (18 sets, daily range): BP systolic 86–255; BP diastolic 42–60; PULSE 70–87; RESP 12–20; TEMP 36.1–37.4; O2SAT 91–95; BMI 23.7; BMI 22.9
[2022-12-08 06:40] LABS: Hematocrit 22.9 % (40-54); Hemoglobin 7.5 g/dL (13.0-16.5); Mean Corp Hgb Conc 32.8 g/dL (32-36); Mean Corpuscular Hgb 29.5 pg (27.0-32.0); Mean Corpuscular Volume 90.2 fL (80-94); Mean Platelet Vol. 11.8 fl (6.2-12.0); POSITIVE COUNT YES; POSITIVE DIFFERENTIAL YES; POSITIVE MORPHOLOGY YES; Platelet Count 199 K/mm3 (150-450); RBC Distribution Width CV 14.9 % (11.6-14.6); RBC Distribution Width SD 49.7 fl (35.1-43.9); Red Blood Count 2.54 M/mm3 (4.6-6.2); White Blood Count 28.6 K/mm3 (4.4-11.0)
[2022-12-08 07:03] LABS: Differential Indicated MANUAL DIFF
[2022-12-08 07:11] LABS: ALB/GLOB Ratio 0.5 RATIO (0.9-2.4); AST(SGOT) 18 U/L (15-37); Alanine Aminotransfer ALT/SGPT 29 U/L (16-61); Albumin, Serum 1.5 g/dL (3.2-5.0); Alkaline Phosphatase 298 U/L (45-117); Anion Gap 8 (5-15); BUN 94 mg/dL (7-18); Calcium,Total 7.9 mg/dL (8.5-10.1); Chloride 103 mmol/L (98-107); Creatinine, Serum 4.69 mg/dL (0.70-1.30); EST Glomerular Filtration Rate 13 mL/min (>60); Est Glom Filt Rate - Afr Amer 16 mL/min (>60); Estimated Creatinine Clearance 12.36 ml/min; Globulin 2.9 g/dL (2.2-4.2); Glucose 322 mg/dL (74-106); Potassium 4.2 mmol/L (3.5-5.1); Protein, Total 4.4 g/dL (6.4-8.2); Sodium Level 132 mmol/L (136-145)
[2022-12-08 07:36] LABS: Eosinophil 1 % (0-5); Lymphocyte 8 % (19-41); Myelocyte 1 % (0-0); Neutrophil-Band 5 % (0-5); Neutrophil-Segmented 85 % (47-70); Total Cells Counted 100 (MANUAL DIFF)
[2022-12-08 07:37] LABS: Platelet Estimate ADEQUATE (ADEQ)
[2022-12-08 07:38] LABS: Neutrophil # 25.74 X10^3/uL (2.7-7.7); Red Cell Morphology NORM C+C NORMAL (NORM C&C)
[2022-12-08 07:39] LABS: Absolute Lymphocyte Count 2.28 X10^3/uL (0.83-4.51); Absolute Neutrophil Count 25.7 X10^3/uL (2.0-7.7)
--- NOTE | 2022-12-08 07:40 | PN.SURG_ITS ---
Subjective Subjective Patient seen and examined during AM rounds. He has found having his dialysis catheter accessed by dialysis nursing. They report that they are still having difficulty aspirating one of the 2 lines, but the overlying is working well. They expressed confidence that they should be able to get through a session today. Objective Data Objective Data Vital Signs: Vital Signs Temp Pulse Resp BP Pulse Ox O2 Del Method O2 Flow Rate 97.6 F L 70 18 120/49 L 93 Nasal Cannula 2 12/08/22 04:00 12/08/22 06:09 12/08/22 04:00 12/08/22 06:09 12/08/22 04:00 12/08/22 04:32 12/08/22 04:32 FiO2 43 12/03/22 07:04 Oxygen Flow Rate (L/min) [5] 2 Oxygen Flow Rate (L/min) [4] 2 Oxygen Flow Rate (L/min) [2] 2 Oxygen Flow Rate (L/min) [1 ( 2 Initial Baseline)] Oxygen Flow Rate (L/min) 2 Oxygen Delivery Method [5] Nasal Cannula Oxygen Delivery Method [4] Nasal Cannula Oxygen Delivery Method [3] Room Air Oxygen Delivery Method [2] Nasal Cannula Oxygen Delivery Method [1 ( Nasal Cannula Initial Baseline)] Oxygen Delivery Method Nasal Cannula Weight: 156 lb 11.979 oz Body Mass Index (BMI) 23.7 Intake & Output: Intake and Output for Last 24 Hours 12/06/22 12/07/22 12/08/22 23:59 23:59 23:59 Intake Total 760 / 760 740 / 740 Output Total 950 / 950 500 / 500 150 / 150 Balance -190 / -190 240 / 240 -150 / -150 Lab / Micro Data 12/08/22 05:56 12/08/22 05:56 Labs: Laboratory Results - last 24 hr 12/07/22 08:10: POC Glucose 344 H 12/07/22 12:21: POC Glucose 313 H 12/07/22 16:36: POC Glucose 292 H 12/07/22 21:59: POC Glucose 406 H 12/08/22 05:56: WBC 28.6 H, RBC 2.54 L, Hgb 7.5 L, Hct 22.9 L, MCV 90.2 D, MCH 29.5, MCHC 32.8 D, RDW Std Deviation 49.7 H, RDW Coeff of Russell 14.9 H, Plt Count 199, MPV 11.8, Neut % (Auto) Not Reportable, Absolute Neuts (auto) 25.7 H, Absolute Lymphs (auto) 2.28, Total Counted 100, Neutrophils % (Manual) 85 H, Band Neutrophils % 5, Lymphocytes % (Manual) 8 L, Eosinophils % (Manual) 1, Myelocytes % 1 H, Diff Path Review August, Platelet Estimate ADEQUATE, RBC Morphology NORM C+C, Sodium 132 L, Potassium 4.2, Chloride 103, Carbon Dioxide 21.0, Anion Gap 8, BUN 94 H, Creatinine 4.69 H, Estim Creat Clear Calc 12.36, Es t GFR (MDRD) Af Amer 16 L, Est GFR (MDRD) Non-Af 13 L, BUN/Creatinine Ratio 20.0, Glucose 322 H, Calcium 7.9 L, Total Bilirubin 0.30, AST 18, ALT 29, Alkaline Phosphatase 298 H, Total Protein 4.4 L, Albumin 1.5 L, Globulin 2.9, Albumin/Globulin Ratio 0.5 L Micro: Microbiology 12/04/22 13:55 Fluid - Thoracentesis Fluid Gram Stain - Final 12/04/22 13:55 Fluid - Thoracentesis Fluid Body Fluid Culture - Final Culture exhibits no growth. 12/04/22 13:55 Fluid - Thoracentesis Fluid Anaerobic Culture - Preliminary No growth in 48 hours. 12/02/22 12:06 Blood Culture (Wb) - Anticubital Right Blood Culture - Final No growth in 5 days. 12/02/22 12:00 Blood Culture (Wb) - Right Hand Blood Culture - Final No growth in 5 days. 12/04/22 17:00 Sputum, Expectorated/Coughed Gram Stain - Final 12/04/22 17:00 Sputum, Expectorated/Coughed Respiratory Culture - Final Presumptive C albicans 11/29/22 09:55 Blood Culture (Wb) - Anticubital Right Blood Culture - Final No growth in 5 days. 11/29/22 10:10 Blood Culture (Wb) - Anticubital Left Blood Culture - Final No growth in 5 days. 11/29/22 08:50 Mucosa - Nasopharyngeal Respiratory Panel (PCR) - Final 11/29/22 10:40 Urine, Random Legionella Antigen - Final 11/29/22 10:40 Urine, Random Streptococcus pneumoniae Antigen (M - Final 11/28/22 00:06 Nasal Secretion SARS-CoV-2 Antigen (Rapid) - Final Radiography Diagnostic Testing: Radiology Impression Venous Doppler Study 12/06/22 11:27 Interpretation Summary No evidence for acute deep venous thrombosis left upper extremity Superficial thrombophlebitis left cephalic vein at the distal biceps the antecubital space with a visualized IV catheter within this position. Ordering Physician: Suzette Genao Referring Physician: Cesar Keenan Performed By: Courtney Muhammad RVT ??? Physical Exam Const Constitutional Narrative: Sleeping after dialysis (nursing notes that dialysis took it out of him) Neck Neck Narrative: Right HD catheter discontinued with a gauze and Tegaderm in place. There is no signs of hematoma or ongoing oozing. Resp normal respiratory effort Assessment & Plan Assessment/Plan (1) Acute kidney injury: (2) 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 1 diabetes mellitus: PLAN: Plan This is a 77-year-old male with a history of chronic kidney disease and now acute kidney injury. He is admitted for management of multifocal pneumonia as well as diabetic ketoacidosis and hypertensive urgency. Surgery was consulted for consideration of hemodialysis catheter placement given the patient has an element of volume overload compromising his respiratory status. A nontunneled hemodialysis catheter was placed last week week, however, it has been somewhat sluggish with its function on the most recent sessions. I suspect this is due to its position within the SVC rather than the right atrium. All along, nephrology had requested placement of a tunneled hemodialysis catheter, however, given the patient's elevated white blood cell count I was a bit reluctant to pursue this placement. Patient has undergone extensive additional evaluation from both infectious disease standpoint as well as through hematology oncology. The latter favor the explanation that this is leukocytosis/neutrophilia is related to patient's steroid injection just prior to his admission. With this negative work-up and hematology's input, I believe that we are okay to proceed with placement of a tunneled dialysis catheter (I am further encouraged that patient's white blood cell count is downtrending today). Thus, I requested dialysis nursing to remove the existing catheter and we will plan for a new stick/new site on the right tomorrow. ?Plan for tunneled dialysis catheter placement tomorrow in the operating room (currently scheduled for noon) ? N.p.o. past midnight in anticipation above procedure Charges/Coding Visit Charges Inpatient E&M: 82406 Subs Hosp L2
[2022-12-08] MEDS: Ipratropium/Albuterol Sulfate 3 ML AMPUL.NEB INHALATION ×3 (08:11→18:57)
[2022-12-08] MEDS: 0.9% Saline Lock 10 ML Syringe IV (08:47)
[2022-12-08] MEDS: 0.9% Normal Saline 1,000 ML IV.SOLN. 1000 ML OPERA.SITE ×2 (08:48→11:08)
[2022-12-08] MEDS: PureFlow B 2K Dialysis Soln 1 BAG 6 BAG PF (08:48)
[2022-12-08 09:04] LABS: Pathologist Review Reviewed
[2022-12-08 09:15] LABS: Pathologist Comment/Body Fluid Reviewed
--- NOTE | 2022-12-08 09:25 | PCM.PN.REN ---
Subjective Subjective Seen and examined on dialysis this morning. Patient denies any complaints with the exception of wanting to go home. No overnight events. Reports breathing is better. Reports overall feeling better. Objective Data Objective Data Vital Signs: Vital Signs Temp Pulse Resp BP Pulse Ox O2 Del Method O2 Flow Rate 97.6 F L 74 16 120/42 L 93 Nasal Cannula 2 12/08/22 08:30 12/08/22 09:08 12/08/22 09:08 12/08/22 09:08 12/08/22 09:08 12/08/22 09:08 12/08/22 09:08 FiO2 43 12/03/22 07:04 Oxygen Flow Rate (L/min) [5] 2 Oxygen Flow Rate (L/min) [4] 2 Oxygen Flow Rate (L/min) [2] 2 Oxygen Flow Rate (L/min) [1 ( 2 Initial Baseline)] Oxygen Flow Rate (L/min) 2 Oxygen Delivery Method [5] Nasal Cannula Oxygen Delivery Method [4] Nasal Cannula Oxygen Delivery Method [3] Room Air Oxygen Delivery Method [2] Nasal Cannula Oxygen Delivery Method [1 ( Nasal Cannula Initial Baseline)] Oxygen Delivery Method Nasal Cannula Weight: 71.1 kg Body Mass Index (BMI) 23.7 Intake & Output: Intake and Output for Last 24 Hours 12/06/22 12/07/22 12/08/22 23:59 23:59 23:59 Intake Total 760 / 760 740 / 740 Output Total 950 / 950 500 / 500 150 / 150 Balance -190 / -190 240 / 240 -150 / -150 Lab / Micro Data 12/08/22 05:56 12/08/22 05:56 Labs: Laboratory Results - last 24 hr 12/04/22 13:55: Fl Pathologist Comment Reviewed 12/05/22 03:40: Diff Path Review Reviewed 12/07/22 12:21: POC Glucose 313 H 12/07/22 16:36: POC Glucose 292 H 12/07/22 21:59: POC Glucose 406 H 12/08/22 05:56: WBC 28.6 H, RBC 2.54 L, Hgb 7.5 L, Hct 22.9 L, MCV 90.2 D, MCH 29.5, MCHC 32.8 D, RDW Std Deviation 49.7 H, RDW Coeff of Russell 14.9 H, Plt Count 199, MPV 11.8, Neut % (Auto) Not Reportable, Absolute Neuts (auto) 25.7 H, Absolute Lymphs (auto) 2.28, Total Counted 100, Neutrophils % (Manual) 85 H, Band Neutrophils % 5, Lymphocytes % (Manual) 8 L, Eosinophils % (Manual) 1, Myelocytes % 1 H, Diff Path Review August, Platelet Estimate ADEQUATE, RBC Morphology NORM C+C, Sodium 132 L, Potassium 4.2, Chloride 103, Carbon Dioxide 21.0, Anion Gap 8, BUN 94 H, Creatinine 4.69 H, Estim Creat Clear Calc 12.36, Est GFR (MDRD) Af Amer 16 L, Est GFR (MDRD) Non-Af 13 L, BUN/Creatinine Ratio 20.0, Glucose 322 H, Calcium 7.9 L, Total Bilirubin 0.30, AST 18, ALT 29, Alkaline Phosphatase 298 H, Total Protein 4.4 L, Albumin 1.5 L, Globulin 2.9, Albumin/Globulin Ratio 0.5 L Micro: Microbiology 12/04/22 13:55 Fluid - Thoracentesis Fluid Gram Stain - Final 12/04/22 13:55 Fluid - Thoracentesis Fluid Body Fluid Culture - Final Culture exhibits no growth. 12/04/22 13:55 Fluid - Thoracentesis Fluid Anaerobic Culture - Preliminary No growth in 48 hours. 12/02/22 12:06 Blood Culture (Wb) - Anticubital Right Blood Culture - Final No growth in 5 days. 12/02/22 12:00 Blood Culture (Wb) - Right Hand Blood Culture - Final No growth in 5 days. 12/04/22 17:00 Sputum, Expectorated/Coughed Gram Stain - Final 12/04/22 17:00 Sputum, Expectorated/Coughed Respiratory Culture - Final Presumptive C albicans 11/29/22 09:55 Blood Culture (Wb) - Anticubital Right Blood Culture - Final No growth in 5 days. 11/29/22 10:10 Blood Culture (Wb) - Anticubital Left Blood Culture - Final No growth in 5 days. 11/29/22 08:50 Mucosa - Nasopharyngeal Respiratory Panel (PCR) - Final 11/29/22 10:40 Urine, Random Legionella Antigen - Final 11/29/22 10:40 Urine, Random Streptococcus pneumoniae Antigen (M - Final 11/28/22 00:06 Nasal Secretion SARS-CoV-2 Antigen (Rapid) - Final Radiography Diagnostic Testing: Radiology Impression Venous Doppler Study 12/06/22 11:27 Interpretation Summary No evidence for acute deep venous thrombosis left upper extremity Superficial thrombophlebitis left cephalic vein at the distal biceps the antecubital space with a visualized IV catheter within this position. Ordering Physician: Suzette Genao Referring Physician: Cesar Keenan Performed By: Courtney Muhammad RVT ??? Physical Exam Narrative Alert oriented x3, no apparent distress S1, S2, RRR Diminished breath sounds posterior bases. No rhonchi or rales Abdomen soft, nontender Trace edema bilateral legs Right IJ non-tunneled HD catheter dressing clean, dry and intact Assessment & Plan Assessment/Plan (1) Acute kidney injury: (2) 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 1 diabetes mellitus: PLAN: - History of CKD stage IV with underlying GFR ~20ml/min. Followed by Dr. Townsend. Patient previously refused to have AV access for dialysis to be placed. There was long conversation with patient, and his daughters and patient now in agreement with SOCIAL SERVICE MANAGER. Patient admitted non-STEMI, DKA and hypertensive emergency. SCr 4.20 mg/dL on admission (11/28)--> SCr peaked 4.56, bicarb 17, potassium 5.1 on 12/02 with decline in respiratory status put on BiPAP, he did receive dose of Lasix 40 mg IV with no improvement in respiratory status. Patient agreed with moving forward with hemodialysis. Appreciate surgery placing non-tunneled temporary HD catheter 12/02. Patient underwent 1st hemodialysis 12/02. -Dialysis today and attempt UF, ~2L as pt/bp tolearates. - temporary HD catheter is being used for dialysis. To have temporary HD catheter removed after HD today and planning for tunneled HD catheter placement - patient will need outpatient dialysis arrangements at [facility], Dx: ENMANUEL on CKD stage 4. Discussed with discharge planning team -Acute respiratory failure multifactorial from decompensated heart failure, underlying valvular heart disease/aortic stenosis and possible pneumonia along with COPD. Currently on antibiotics and receiving breathing treatments. White count trending, possibly from steroid injection pre-hospital. Blood cultures from 11/29 & 12/02 no growth. Thoracentesis fluid no growth. wbc count trending down today. no fevers - NSTEMI; cardiology following. not clear if cardiac catheterization to be performed during inpatient hospitalization. -Blood pressures on low side but improved, currently on Lopressor 12.5 mg twice daily and amlodipine 5 mg daily. Lisinopril on hold. Recommend holding these meds mornings of dialysis - CT chest showed b/l pleural effusions and underwent thoracentesis with 650ml fluid removed. Chest x-ray after thoracentesis showed resolution of left-sided pleural effusion.
[2022-12-08] MEDS: Insulin Lispro 100 UNIT/ML INSULN.PEN SC ×3 (11:49→21:20)
[2022-12-08] MEDS: Insulin Lispro 100 UNIT/ML INSULN.PEN 10 UNIT SC ×2 (11:49→18:00)
[2022-12-08] MEDS: Gabapentin 100 MG Capsule 200 MG PO ×3 (11:54→18:06)
[2022-12-08] MEDS: Multivitamins,Therapeutic Tablet 1 TABLET PO (11:55)
[2022-12-08] MEDS: Folic Acid 1 MG Tablet 0.5 MG PO ×2 (11:55→18:01)
[2022-12-08] MEDS: Docusate Sodium 100 MG Capsule 200 MG PO ×2 (11:55→21:19)
[2022-12-08] MEDS: Finasteride 5 MG Tablet PO (11:56)
[2022-12-08] MEDS: Aspirin E.C. 81 MG Tablet PO (11:56)
[2022-12-08] MEDS: Cholecalciferol (Vit D3) 125 MCG CAPSULE (5,000 UNITS) PO (11:56)
[2022-12-08] MEDS: Pantoprazole Sodium 40 MG Tablet PO ×2 (11:56→21:19)
[2022-12-08] MEDS: Magnesium Chloride 64 MG Delay Rel.Tablet 128 MG PO (11:57)
[2022-12-08] MEDS: amLODIPine 5 MG Tablet PO (12:00)
[2022-12-08] MEDS: Sertraline 50 MG Tablet PO (12:01)
[2022-12-08] MEDS: Ferrous Sulfate 325 MG Tablet PO (12:03)
[2022-12-08] MEDS: Multivitamin (Healthy Eyes) Capsule 1 CAP PO (12:04)
[2022-12-08] MEDS: Insulin Glargine-YFGN 100 UNIT/ML Pen 15 UNIT SC (12:04)
[2022-12-08] MEDS: Fluconazole 100 MG Tablet PO (12:04)
[2022-12-08] MEDS: Metoprolol Tartrate 25 MG Tablet 12.5 MG PO ×2 (12:12→21:19)
[2022-12-08] MEDS: Calcium Carbonate 500 MG Tablet PO (12:24)
[2022-12-08 12:58] LABS: Bedside Glucose 336 mg/dL (74-106)
--- NOTE | 2022-12-08 14:05 | PCM.PN.ID ---
Physical Exam Narrative Feeling ok, no dyspnea, some sputum, no fever Const alert and no apparent distress General Appearance: cooperative Resp Auscultation: rhonchi and wheezes Cardio regular rate and regular rhythm GI soft to palpation, non-tender and non-distended Skin no rashes or lesions noted ID ID: Route of nutrition/ use of supplements: [] Nutritional Intake: [] IV Site: [] [place] Catheter: [] Assessment & Plan Assessment/Plan (1) Acute kidney injury: (2) Acute respiratory failure with hypoxia: (3) Pneumonia: QUALIFIERS: Pneumonia type: due to unspecified organism Laterality: right Lung location: unspecified part of lung Qualified Code(s): J18.9 - Pneumonia, unspecified organism PLAN: On meropenem. Repeat bcx neg. Sputum with 3+ yeast, cont fluc. Thoracentesis done, fluid cx neg so far. Wbc slightly improved today Will follow
--- NOTE | 2022-12-08 15:27 | PN_ITS ---
Subjective Subjective Patient seen and examined today. He had an uneventful night. He was having dialysis. He did complain of some back pain but this is chronic. Review of systems otherwise negative. Objective Data Objective Data Vital Signs: Vital Signs Temp Pulse Resp BP Pulse Ox O2 Del Method O2 Flow Rate 98 F 73 17 141/57 H 95 Nasal Cannula 2 12/08/22 12:38 12/08/22 12:38 12/08/22 12:38 12/08/22 12:38 12/08/22 12:38 12/08/22 12:38 12/08/22 12:38 FiO2 43 12/03/22 07:04 Oxygen Flow Rate (L/min) [5] 2 Oxygen Flow Rate (L/min) [4] 2 Oxygen Flow Rate (L/min) [2] 2 Oxygen Flow Rate (L/min) [1 ( 2 Initial Baseline)] Oxygen Flow Rate (L/min) 2 Oxygen Delivery Method [5] Nasal Cannula Oxygen Delivery Method [4] Nasal Cannula Oxygen Delivery Method [3] Room Air Oxygen Delivery Method [2] Nasal Cannula Oxygen Delivery Method [1 ( Nasal Cannula Initial Baseline)] Oxygen Delivery Method Nasal Cannula Weight: 151 lb 3.794 oz Body Mass Index (BMI) 22.9 Intake & Output: Intake and Output for Last 24 Hours 12/06/22 12/07/22 12/08/22 23:59 23:59 23:59 Intake Total 760 / 760 740 / 740 540 / 540 Output Total 950 / 950 500 / 500 3025 / 3025 Balance -190 / -190 240 / 240 -2485 / -2485 Lab / Micro Data 12/08/22 05:56 12/08/22 05:56 Labs: Laboratory Results - last 24 hr 12/04/22 13:55: Fl Pathologist Comment Reviewed 12/05/22 03:40: Diff Path Review Reviewed 12/07/22 12:21: POC Glucose 313 H 12/07/22 16:36: POC Glucose 292 H 12/07/22 21:59: POC Glucose 406 H 12/08/22 05:56: WBC 28.6 H, RBC 2.54 L, Hgb 7.5 L, Hct 22.9 L, MCV 90.2 D, MCH 29.5, MCHC 32.8 D, RDW Std Deviation 49.7 H, RDW Coeff of Russell 14.9 H, Plt Count 199, MPV 11.8, Neut % (Auto) Not Reportable, Absolute Neuts (auto) 25.7 H, Absolute Lymphs (auto) 2.28, Total Counted 100, Neutrophils % (Manual) 85 H, Band Neutrophils % 5, Lymphocytes % (Manual) 8 L, Eosinophils % (Manual) 1, Myelocytes % 1 H, Diff Path Review August, Platelet Estimate ADEQUATE, RBC Morphology NORM C+C, Sodium 132 L, Potassium 4.2, Chloride 103, Carbon Dioxide 21.0, Anion Gap 8, BUN 94 H, Creatinine 4.69 H, Estim Creat Clear Calc 12.36, Est GFR (MDRD) Af Amer 16 L, Est GFR (MDRD) Non-Af 13 L, BUN/Creatinine Ratio 20.0, Glucose 322 H, Calcium 7.9 L, Total Bilirubin 0.30, AST 18, ALT 29, Alkaline Phosphatase 298 H, Total Protein 4.4 L, Albumin 1.5 L, Globulin 2.9, Albumin/Globulin Ratio 0.5 L 12/08/22 11:48: POC Glucose 336 H Micro: Microbiology 12/04/22 13:55 Fluid - Thoracentesis Fluid Gram Stain - Final 12/04/22 13:55 Fluid - Thoracentesis Fluid Body Fluid Culture - Final Culture exhibits no growth. 12/04/22 13:55 Fluid - Thoracentesis Fluid Anaerobic Culture - Preliminary No growth in 48 hours. 12/02/22 12:06 Blood Culture (Wb) - Anticubital Right Blood Culture - Final No growth in 5 days. 12/02/22 12:00 Blood Culture (Wb) - Right Hand Blood Culture - Final No growth in 5 days. 12/04/22 17:00 Sputum, Expectorated/Coughed Gram Stain - Final 12/04/22 17:00 Sputum, Expectorated/Coughed Respiratory Culture - Final Presumptive C albicans 11/29/22 09:55 Blood Culture (Wb) - Anticubital Right Blood Culture - Final No growth in 5 days. 11/29/22 10:10 Blood Culture (Wb) - Anticubital Left Blood Culture - Final No growth in 5 days. 11/29/22 08:50 Mucosa - Nasopharyngeal Respiratory Panel (PCR) - Final 11/29/22 10:40 Urine, Random Legionella Antigen - Final 11/29/22 10:40 Urine, Random Streptococcus pneumoniae Antigen (M - Final 11/28/22 00:06 Nasal Secretion SARS-CoV-2 Antigen (Rapid) - Final Radiography Diagnostic Testing: Radiology Impression Venous Doppler Study 12/06/22 11:27 Interpretation Summary No evidence for acute deep venous thrombosis left upper extremity Superficial thrombophlebitis left cephalic vein at the distal biceps the antecubital space with a visualized IV catheter within this position. Ordering Physician: Suzette Genao Referring Physician: Cesar Keenan Performed By: Courtney Muhammad RVT ??? Physical Exam Const alert, oriented x3 and no apparent distress General Appearance: cooperative HEENT normocephalic and head/scalp atraumatic HEENT Narrative: dry oral mucosa Eyes PERRL and EOMs intact bilaterally Neck no lymphadenopathy and supple Lymph Lymphatic: no lymphadenopathy noted and no lymphedema noted Resp Resp Narrative: mildly diminished breath sounds bibasally, no wheezes or crackles. On 2L of oxygen by nasal canula Cardio regular rate, regular rhythm, S1 normal heart sound, S2 normal heart sound and no murmurs GI normal to inspection, nondistended, normoactive bowel sounds, soft to palpation, non-tender and non-distended Extremity normal capillary refill, no clubbing, cyanosis or edema and no calf tenderness Skin General Skin Exam: no breakdown Neuro CN's II-XII intact bilaterally, no focal motor deficits and no sensory deficits noted Psych thought process normal and cooperative Appearance: appropriate Assessment & Plan Assessment/Plan (1) Acute kidney injury: PLAN: Plan #Acute hypoxic and hypercapnic respiratory failure * Thought to be multifactorial, due to acute on chronic combined heart failure with bilateral lower lobe pneumonia * 2D echo done showed EF of 40 to 45% with moderate to severe aortic stenosis and stage I diastolic dysfunction. * COVID test negative, respiratory panel negative and urine for strep and Legionella antigens negative. * Was on IV vancomycin and Zosyn but had red man syndrome so vancomycin was discontinued. ID on board and currently on IV meropenem. * Breathing treatments of bronchodilators. Titrate oxygen to maintain saturation above 90%. * Sputum cultures growing 3+ yeast. On fluconazole. Thoracentesis was done and fluid cultures are negative so far. WBC has trended down slightly 28,000 * #ENMANUEL on CKD IV : Due to worsening kidney function, he ended up having temporary dialysis catheter inserted by general surgery. Patient currently undergoing dialysis. Management as per nephrology. #non ST elevation MO: * Troponins peaked at 36,516. * Was on heparin drip but this was subsequently held for the hemodialysis catheter placement. * Was originally planned to have cardiac cath but due to worsening kidney function, this was aborted. * On aspirin. Plavix on hold. * Cardiology on board. #Anemia: Hemoglobin today 7.5. Was 8.7 yesterday. Hemoglobin has remained around 7-9. Will monitor, and transfuse if Hb <7 #DKA: Is a known diabetic with A1c of 9.2 from 11/29/2022. Anion gap closed and DKA resolved. Now on Lantus. Insulin sliding scale. Accu-Cheks ACHS. #Hypertension: Blood pressure was markedly elevated on admission but this has now resolved. On amlodipine and metoprolol. #Hyponatremia: Likely due to ENMANUEL on CKD 4. Resolved. #Depression: This was thought to be due to the fact that he was in the hospital. Currently on low-dose sertraline. #Left upper extremity swelling. Improved. Duplex of the left upper extremity was negative for deep blood clot. #BPH: On finasteride #NIKHIL: On BiPAP nightly #Hyperlipidemia: On statin DVT prophylaxis: On heparin subcu Charges/Coding Visit Charges Inpatient E&M: 38982 Subs Hosp L3
[2022-12-08 18:07] LABS: Amylase Body Fluid 7 U/L (.); pH, Body Fluid 11254 7.1 (Not Estab.)
[2022-12-08 18:21] LABS: Bedside Glucose 301 mg/dL (74-106)
[2022-12-08 21:03] LABS: Bedside Glucose 191 mg/dL (74-106)
[2022-12-08] MEDS: Atorvastatin Calcium 40 MG Tablet PO (21:19)
[2022-12-09] VITALS (20 sets, daily range): BP systolic 112–134; BP diastolic 46–69; PULSE 66–84; RESP 14–18; TEMP 36.3–37.1; O2SAT 91–97; BMI 23.3; BMI 24.0
[2022-12-09 05:39] LABS: Hematocrit 23.8 % (40-54); Hemoglobin 7.7 g/dL (13.0-16.5); Mean Corp Hgb Conc 32.4 g/dL (32-36); Mean Corpuscular Hgb 29.6 pg (27.0-32.0); Mean Corpuscular Volume 91.5 fL (80-94); POSITIVE COUNT YES; POSITIVE DIFFERENTIAL YES; POSITIVE MORPHOLOGY YES; Platelet Count 195 K/mm3 (150-450); RBC Distribution Width CV 14.9 % (11.6-14.6); RBC Distribution Width SD 50.4 fl (35.1-43.9)
[2022-12-09 05:47] LABS: Bedside Glucose 231 mg/dL (74-106)
[2022-12-09 05:51] LABS: Differential Indicated MANUAL DIFF; White Blood Count 32.5 K/mm3 (4.4-11.0)
[2022-12-09 06:10] LABS: Anion Gap 8 (5-15); BUN 73 mg/dL (7-18); Calcium,Total 8.1 mg/dL (8.5-10.1); Chloride 106 mmol/L (98-107); Creatinine, Serum 3.85 mg/dL (0.70-1.30); EST Glomerular Filtration Rate 16 mL/min (>60); Est Glom Filt Rate - Afr Amer 20 mL/min (>60); Estimated Creatinine Clearance 15.05 ml/min; Glucose 256 mg/dL (74-106); Potassium 4.2 mmol/L (3.5-5.1); Sodium Level 136 mmol/L (136-145)
[2022-12-09] MEDS: Ipratropium/Albuterol Sulfate 3 ML AMPUL.NEB INHALATION ×2 (06:41→20:21)
[2022-12-09 07:18] LABS: Eosinophil 5 % (0-5); Metamyelocyte 3 % (0-1); Monocyte 1 % (0-10); Myelocyte 4 % (0-0); Neutrophil-Segmented 81 % (47-70); Total Cells Counted 100 (MANUAL DIFF)
[2022-12-09 07:20] LABS: Absolute Neutrophil Count 26.3 X10^3/uL (2.0-7.7); Differential Comment SCANNED; Lymphocyte 6 % (19-41)
[2022-12-09 07:21] LABS: Absolute Lymphocyte Count 1.95 X10^3/uL (0.83-4.51)
[2022-12-09] MEDS: Metoprolol Tartrate 25 MG Tablet 12.5 MG PO ×2 (08:20→22:27)
--- NOTE | 2022-12-09 09:18 | VDUE_ITS ---
Reason For Study: Eventual AV access Right Arm Left Arm Cephalic Vein at distal forearm measures 2.0 Cephalic Vein at distal forearm measures 2.8 x 2.4 mm. x 3.1 mm. Cephalic Vein at mid forearm measures 3.7 x Cephalic Vein at mid forearm measures 2.5 x 5.5 mm. 2.5 mm. Cephalic Vein proximal forearm measures 3.9 Cephalic Vein proximal forearm measures 5.4 x x 4.8 mm. 6.2 mm. Cephalic Vein distal upper arm measures 3.8 Cephalic Vein distal upper arm measures 2.8 x x 4.5 mm. 3.2 mm. Cephalic Vein at mid upper arm measures 3.4 Cephalic Vein at mid upper arm measures 3.0 x x 3.9 mm. 3.2 mm. Cephalic Vein at proximal upper arm measures Cephalic Vein at proximal upper arm measures 3.1 x 3.2 mm. 2.6 x 2.7 mm. Cephalic vein is noncopressible from mid Cephalic vein is noncompressible from distal bicep to mid forearm. IV noted within bicep to antecube. IV noted within vessel. vessel. compared to 12/07/22. Proximal Basilic vein measures 4.2 x 4.4 mm. Proximal Basilic vein measures 3.9 x 4.0 mm. Mid Basilic vein measures 3.6 x 3.6 mm. Mid Basilic vein measures 3.8 x 4.1 mm. Distal Basilic vein measures 3.1 x 3.3 mm. Distal Basilic vein measures 3.2 x 3.1 mm. Right Brachial artery measures 4.8 x 4.9 mm Left Brachial artery measures 4.9 x 5.2 mm with a velocity of 130.8 cm/sec. with a velocity of 163.7 cm/sec. Right Radial artery measures 2.9 x 3.0 mm Left Radial artery measures 2.6 x 2.8 mm with with a velocity of 93.5 cm/sec. a velocity of 84.7 cm/sec. Patient Safety Patient and family request to follow up with Dr. Lassiter. VL/Dialysis Vein Map PRE-OP BILAT Interpretation Summary Superficial thrombophlebitis right mid bicep to mid forearm and left distal bic ep secondary to IV access noted within each vessel Normal diameter and flow bilateral upper arm basilic veins Normal bilateral radial and brachial artery flow Thrombophlebitis in bilateral cephalic veins will preclude utilization for johana riovenous fistula creation Ordering Physician: Maria Guadalupe Townsend Referring Physician: Cesar Keenan Performed By: Courtney Muhammad RVT ???
--- NOTE | 2022-12-09 09:36 | PCM.PN.REN ---
Subjective Subjective Resting in bed, friend at bedside. No overnight events. No complaints this am. Objective Data Objective Data Vital Signs: Vital Signs Temp Pulse Resp BP Pulse Ox O2 Del Method O2 Flow Rate 98.0 F 84 16 123/58 H 92 Nasal Cannula 4 12/09/22 08:03 12/09/22 08:20 12/09/22 08:03 12/09/22 08:03 12/09/22 08:03 12/09/22 08:10 12/09/22 08:10 FiO2 43 12/03/22 07:04 Oxygen Flow Rate (L/min) [5] 2 Oxygen Flow Rate (L/min) [4] 2 Oxygen Flow Rate (L/min) [2] 2 Oxygen Flow Rate (L/min) [1 ( 2 Initial Baseline)] Oxygen Flow Rate (L/min) 4 Oxygen Delivery Method [5] Nasal Cannula Oxygen Delivery Method [4] Nasal Cannula Oxygen Delivery Method [3] Room Air Oxygen Delivery Method [2] Nasal Cannula Oxygen Delivery Method [1 ( Nasal Cannula Initial Baseline)] Oxygen Delivery Method Nasal Cannula Weight: 69.8 kg Body Mass Index (BMI) 23.3 Intake & Output: Intake and Output for Last 24 Hours 12/07/22 12/08/22 12/09/22 23:59 23:59 23:59 Intake Total 740 / 740 940 / 940 0 / 0 Output Total 500 / 500 3025 / 3025 Balance 240 / 240 -2085 / -2085 0 / 0 Lab / Micro Data 12/09/22 04:45 12/09/22 04:45 Labs: Laboratory Results - last 24 hr 12/04/22 13:55: Fluid pH 7.1, Fluid Amylase 7, Miscellaneous Cytology SEE PATHOLOGY REPORT 12/08/22 11:48: POC Glucose 336 H 12/08/22 17:58: POC Glucose 301 H 12/08/22 20:43: POC Glucose 191 H 12/09/22 04:45: WBC 32.5 H*, RBC 2.60 L, Hgb 7.7 L, Hct 23.8 L, MCV 91.5, MCH 29.6, MCHC 32.4, RDW Std Deviation 50.4 H, RDW Coeff of Russell 14.9 H, Plt Count 195, MPV 12.0, Neut % (Auto) Not Reportable, Absolute Neuts (auto) 26.3 H, Absolute Lymphs (auto) 1.95, Total Counted 100, Neutrophils % (Manual) 81 H, Lymphocytes % (Manual) 6 L, Monocytes % (Manual) 1, Eosinophils % (Manual) 5, Metamyelocytes % 3 H, Myelocytes % 4 H, Differential Comment SCANNED, Diff Path Review August, Sodium 136, Potassium 4.2, Chloride 106, Carbon Dioxide 22.0, Anion Gap 8, BUN 73 H, Creatinine 3.85 H, Estim Creat Clear Calc 15.05, Est GFR (MDRD) Af Amer 20 L, Est GFR (MDRD) Non-Af 16 L, BUN/Creatinine Ratio 19.0, Glucose 256 H, Calcium 8.1 L 12/09/22 05:29: POC Glucose 231 H Micro: Microbiology 12/04/22 13:55 Fluid - Thoracentesis Fluid Gram Stain - Final 12/04/22 13:55 Fluid - Thoracentesis Fluid Body Fluid Culture - Final Culture exhibits no growth. 12/04/22 13:55 Fluid - Thoracentesis Fluid Anaerobic Culture - Final No growth in 5 days. 12/02/22 12:06 Blood Culture (Wb) - Anticubital Right Blood Culture - Final No growth in 5 days. 12/02/22 12:00 Blood Culture (Wb) - Right Hand Blood Culture - Final No growth in 5 days. 12/04/22 17:00 Sputum, Expectorated/Coughed Gram Stain - Final 12/04/22 17:00 Sputum, Expectorated/Coughed Respiratory Culture - Final Presumptive C albicans 11/29/22 09:55 Blood Culture (Wb) - Anticubital Right Blood Culture - Final No growth in 5 days. 11/29/22 10:10 Blood Culture (Wb) - Anticubital Left Blood Culture - Final No growth in 5 days. 11/29/22 08:50 Mucosa - Nasopharyngeal Respiratory Panel (PCR) - Final 11/29/22 10:40 Urine, Random Legionella Antigen - Final 11/29/22 10:40 Urine, Random Streptococcus pneumoniae Antigen (M - Final 11/28/22 00:06 Nasal Secretion SARS-CoV-2 Antigen (Rapid) - Final Physical Exam Narrative Alert oriented x3, no apparent distress S1, S2, RRR Diminished breath sounds posterior bases. On O2 nasal cannula. Abdomen soft, nontender Trace edema bilateral legs Right IJ non-tunneled HD catheter dressing clean, dry and intact Assessment & Plan Assessment/Plan (1) Acute kidney injury: (2) 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 1 diabetes mellitus: PLAN: - History of CKD stage IV with underlying GFR ~20ml/min. Patient admitted non-STEMI, DKA and hypertensive emergency. Appreciate surgery placing non-tunneled temporary HD catheter 12/02. Patient underwent 1st hemodialysis 12/02. -Patient had dialysis yesterday and tolerated 2.5 L fluid removal. No acute indication for ENVIRONMENTAL LABORATORY TECHNICIAN today, will plan for dialysis tomorrow with fluid removal as patient/blood pressure tolerates. - planning for tunneled HD catheter placement - patient will need outpatient dialysis arrangements at [facility], Dx: ENMANUEL on CKD stage 4. Discussed with discharge planning team. will order vessel mapping. -Acute respiratory failure multifactorial from decompensated heart failure, underlying valvular heart disease/aortic stenosis and possible pneumonia along with COPD. Currently on antibiotics and receiving breathing treatments. Elevated WBC possibly from steroid injection pre-hospital. Blood cultures from 11/29 & 12/02 no growth. Thoracentesis fluid no growth. no fevers - NSTEMI; cardiology following. not clear if cardiac catheterization to be performed during inpatient hospitalization. -Blood pressures on low side but improved, currently on Lopressor 12.5 mg twice daily and amlodipine 5 mg daily. Lisinopril on hold. Recommend holding these meds mornings of dialysis - CT chest showed b/l pleural effusions and underwent thoracentesis with 650ml fluid removed. Chest x-ray after thoracentesis showed resolution of left-sided pleural effusion.
[2022-12-09 09:51] LABS: Pathologist Review Reviewed
[2022-12-09 09:53] LABS: Pathologist Review Reviewed
[2022-12-09] MEDS: Insulin Lispro 100 UNIT/ML INSULN.PEN SC ×3 (10:53→22:27)
[2022-12-09 11:05] LABS: Bedside Glucose 307 mg/dL (74-106)
--- NOTE | 2022-12-09 11:18 | PCM.PN.SRG ---
Subjective Subjective Patient seen and examined during AM rounds. He is found resting comfortably in bed. He denies any complaints. He confirms that he is aware of plans to place a tunneled catheter today in the operating room. Objective Data Objective Data Vital Signs: Vital Signs Temp Pulse Resp BP Pulse Ox O2 Del Method O2 Flow Rate 98.0 F 73 16 131/55 H 94 Nasal Cannula 4 12/09/22 10:24 12/09/22 10:24 12/09/22 10:24 12/09/22 10:24 12/09/22 10:24 12/09/22 10:24 12/09/22 10:24 FiO2 43 12/03/22 07:04 Oxygen Flow Rate (L/min) [5] 2 Oxygen Flow Rate (L/min) [4] 2 Oxygen Flow Rate (L/min) [2] 2 Oxygen Flow Rate (L/min) [1 ( 2 Initial Baseline)] Oxygen Flow Rate (L/min) 4 Oxygen Delivery Method [5] Nasal Cannula Oxygen Delivery Method [4] Nasal Cannula Oxygen Delivery Method [3] Room Air Oxygen Delivery Method [2] Nasal Cannula Oxygen Delivery Method [1 ( Nasal Cannula Initial Baseline)] Oxygen Delivery Method Nasal Cannula Weight: 153 lb 14.122 oz Body Mass Index (BMI) 24.0 Intake & Output: Intake and Output for Last 24 Hours 12/07/22 12/08/22 12/09/22 23:59 23:59 23:59 Intake Total 740 / 740 940 / 940 0 / 0 Output Total 500 / 500 3025 / 3025 Balance 240 / 240 -2085 / -2085 0 / 0 Lab / Micro Data 12/09/22 04:45 12/09/22 04:45 Labs: Laboratory Results - last 24 hr 12/04/22 13:55: Fluid pH 7.1, Fluid Amylase 7, Miscellaneous Cytology SEE PATHOLOGY REPORT 12/07/22 05:13: Diff Path Review Reviewed 12/08/22 05:56: Diff Path Review Reviewed 12/08/22 11:48: POC Glucose 336 H 12/08/22 17:58: POC Glucose 301 H 12/08/22 20:43: POC Glucose 191 H 12/09/22 04:45: WBC 32.5 H*, RBC 2.60 L, Hgb 7.7 L, Hct 23.8 L, MCV 91.5, MCH 29.6, MCHC 32.4, RDW Std Deviation 50.4 H, RDW Coeff of Russell 14.9 H, Plt Count 195, MPV 12.0, Neut % (Auto) Not Reportable, Absolute Neuts (auto) 26.3 H, Absolute Lymphs (auto) 1.95, Total Counted 100, Neutrophils % (Manual) 81 H, Lymphocytes % (Manual) 6 L, Monocytes % (Manual) 1, Eosinophils % (Manual) 5, Metamyelocytes % 3 H, Myelocytes % 4 H, Differential Comment SCANNED, Diff Path Review August, Sodium 136, Potassium 4.2, Chloride 106, Carbon Dioxide 22.0, Anion Gap 8, BUN 73 H, Creatinine 3.85 H, Estim Creat Clear Calc 15.05, Est GFR (MDRD) Af Amer 20 L, Est GFR (MDRD) Non-Af 16 L, BUN/Creatinine Ratio 19.0, Glucose 256 H, Calcium 8.1 L 12/09/22 05:29: POC Glucose 231 H 12/09/22 10:44: POC Glucose 307 H Micro: Microbiology 12/04/22 13:55 Fluid - Thoracentesis Fluid Gram Stain - Final 12/04/22 13:55 Fluid - Thoracentesis Fluid Body Fluid Culture - Final Culture exhibits no growth. 12/04/22 13:55 Fluid - Thoracentesis Fluid Anaerobic Culture - Final No growth in 5 days. 12/02/22 12:06 Blood Culture (Wb) - Anticubital Right Blood Culture - Final No growth in 5 days. 12/02/22 12:00 Blood Culture (Wb) - Right Hand Blood Culture - Final No growth in 5 days. 12/04/22 17:00 Sputum, Expectorated/Coughed Gram Stain - Final 12/04/22 17:00 Sputum, Expectorated/Coughed Respiratory Culture - Final Presumptive C albicans 11/29/22 09:55 Blood Culture (Wb) - Anticubital Right Blood Culture - Final No growth in 5 days. 11/29/22 10:10 Blood Culture (Wb) - Anticubital Left Blood Culture - Final No growth in 5 days. 11/29/22 08:50 Mucosa - Nasopharyngeal Respiratory Panel (PCR) - Final 11/29/22 10:40 Urine, Random Legionella Antigen - Final 11/29/22 10:40 Urine, Random Streptococcus pneumoniae Antigen (M - Final 11/28/22 00:06 Nasal Secretion SARS-CoV-2 Antigen (Rapid) - Final Physical Exam Const oriented x3 and no apparent distress Neck Neck Narrative: Right HD catheter discontinued with a gauze and Tegaderm in place. There is no signs of hematoma or ongoing oozing. Resp normal respiratory effort Assessment & Plan Assessment/Plan (1) Acute kidney injury: (2) 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 1 diabetes mellitus: PLAN: Plan This is a 77-year-old male with a history of chronic kidney disease and now acute kidney injury. He is admitted for management of multifocal pneumonia as well as diabetic ketoacidosis and hypertensive urgency. Surgery was consulted for consideration of hemodialysis catheter placement given the patient has an element of volume overload compromising his respiratory status. A nontunneled hemodialysis catheter was placed last week, however, it became somewhat sluggish with its function on the most recent sessions and I suspected this is due to its position within the SVC rather than the right atrium. All along, nephrology had requested placement of a tunneled hemodialysis catheter, however, given the patient's elevated white blood cell count I was a bit reluctant to pursue this placement. Yet since admission, patient has undergone extensive additional evaluation from both infectious disease standpoint as well as through hematology oncology and patient's work-up for any infectious cause has been unrevealing. I spoke directly with Dr. Cordero of hematology oncology today and he confirms that he is comfortable attributing patient's neutrophilia to recent steroid administration and stated that sometimes these lab abnormalities can persist for weeks. With this opinion and patient's awareness of the situation, as confirmed through our discussion this morning, we will plan to proceed with placement of a tunneled dialysis catheter in the OR early this afternoon. Charges/Coding Visit Charges Inpatient E&M: 66894 Subs Hosp L2
[2022-12-09 12:27] LABS: Pathologist Review Reviewed
--- NOTE | 2022-12-09 12:42 | PCM.PN.BLA ---
Progress Note Patient not in the room. Gone for tunneled catheter placement. Patient's labs reviewed. Hemoglobin again less than 8 g/dL. White cell count staying persistently up. With patient's anemia and hemoglobin dropping again, consider GI consult. Non-ST elevation [place] in the setting of bilateral pneumonia and hypoxia. Likely type II. Will check Lexiscan stress Myoview. If it fails to show any significant reversible defects, then we will continue with medical management. Discussed with Dr. Heredia.
--- NOTE | 2022-12-09 12:47 | WOUNDNOTE ---
wound photo: sacrum
[2022-12-09] MEDS: Bupivacaine Mpf 0.5% 30 ML VIAL (12:55)
[2022-12-09] MEDS: Heparin 10,000 UNITS/10 ML Vial 10000 UNITS (13:21)
--- NOTE | 2022-12-09 13:28 | PN_ITS ---
Subjective Subjective Patient seen and examined. His brother was by his bedside. HE had no active complaints. His only complaint was that he was unable to sleep much last night. Review of systems was otherwise negative. WBC has trended up further to 33K today. HE has otherwise remained hemodynamically stable. He is to have a tunneled dialysis catheter inserted today. Objective Data Objective Data Vital Signs: Vital Signs Temp Pulse Resp BP Pulse Ox O2 Del Method O2 Flow Rate 98.0 F 73 16 131/55 H 94 Nasal Cannula 4 12/09/22 10:24 12/09/22 10:24 12/09/22 10:24 12/09/22 10:24 12/09/22 10:24 12/09/22 10:24 12/09/22 10:24 FiO2 43 12/03/22 07:04 Oxygen Flow Rate (L/min) [5] 2 Oxygen Flow Rate (L/min) [4] 2 Oxygen Flow Rate (L/min) [2] 2 Oxygen Flow Rate (L/min) [1 ( 2 Initial Baseline)] Oxygen Flow Rate (L/min) 4 Oxygen Delivery Method [5] Nasal Cannula Oxygen Delivery Method [4] Nasal Cannula Oxygen Delivery Method [3] Room Air Oxygen Delivery Method [2] Nasal Cannula Oxygen Delivery Method [1 ( Nasal Cannula Initial Baseline)] Oxygen Delivery Method Nasal Cannula Weight: 153 lb 14.122 oz Body Mass Index (BMI) 24.0 Intake & Output: Intake and Output for Last 24 Hours 12/07/22 12/08/22 12/09/22 23:59 23:59 23:59 Intake Total 740 / 740 940 / 940 0 / 0 Output Total 500 / 500 3025 / 3025 Balance 240 / 240 -2085 / -2085 0 / 0 Lab / Micro Data 12/09/22 04:45 12/09/22 04:45 Labs: Laboratory Results - last 24 hr 12/04/22 13:55: Fluid pH 7.1, Fluid Amylase 7, Miscellaneous Cytology SEE PATH OLOGY REPORT 12/06/22 03:29: Diff Path Review Reviewed 12/07/22 05:13: Diff Path Review Reviewed 12/08/22 05:56: Diff Path Review Reviewed 12/08/22 17:58: POC Glucose 301 H 12/08/22 20:43: POC Glucose 191 H 12/09/22 04:45: WBC 32.5 H*, RBC 2.60 L, Hgb 7.7 L, Hct 23.8 L, MCV 91.5, MCH 29.6, MCHC 32.4, RDW Std Deviation 50.4 H, RDW Coeff of Russell 14.9 H, Plt Count 195, MPV 12.0, Neut % (Auto) Not Reportable, Absolute Neuts (auto) 26.3 H, Absolute Lymphs (auto) 1.95, Total Counted 100, Neutrophils % (Manual) 81 H, Lymphocytes % (Manual) 6 L, Monocytes % (Manual) 1, Eosinophils % (Manual) 5, Metamyelocytes % 3 H, Myelocytes % 4 H, Differential Comment SCANNED, Diff Path Review August, Sodium 136, Potassium 4.2, Chloride 106, Carbon Dioxide 22.0, Anion Gap 8, BUN 73 H, Creatinine 3.85 H, Estim Creat Clear Calc 15.05, Est GFR (MDRD) Af Amer 20 L, Est GFR (MDRD) Non-Af 16 L, BUN/Creatinine Ratio 19.0, Glucose 256 H, Calcium 8.1 L 12/09/22 05:29: POC Glucose 231 H 12/09/22 10:44: POC Glucose 307 H Micro: Microbiology 12/04/22 13:55 Fluid - Thoracentesis Fluid Gram Stain - Final 12/04/22 13:55 Fluid - Thoracentesis Fluid Body Fluid Culture - Final Culture exhibits no growth. 12/04/22 13:55 Fluid - Thoracentesis Fluid Anaerobic Culture - Final No growth in 5 days. 12/02/22 12:06 Blood Culture (Wb) - Anticubital Right Blood Culture - Final No growth in 5 days. 12/02/22 12:00 Blood Culture (Wb) - Right Hand Blood Culture - Final No growth in 5 days. 12/04/22 17:00 Sputum, Expectorated/Coughed Gram Stain - Final 12/04/22 17:00 Sputum, Expectorated/Coughed Respiratory Culture - Final Presumptive C albicans 11/29/22 09:55 Blood Culture (Wb) - Anticubital Right Blood Culture - Final No growth in 5 days. 11/29/22 10:10 Blood Culture (Wb) - Anticubital Left Blood Culture - Final No growth in 5 days. 11/29/22 08:50 Mucosa - Nasopharyngeal Respiratory Panel (PCR) - Final 11/29/22 10:40 Urine, Random Legionella Antigen - Final 11/29/22 10:40 Urine, Random Streptococcus pneumoniae Antigen (M - Final 11/28/22 00:06 Nasal Secretion SARS-CoV-2 Antigen (Rapid) - Final Physical Exam Const alert, oriented x3 and no apparent distress General Appearance: cooperative HEENT normocephalic and head/scalp atraumatic Eyes PERRL and EOMs intact bilaterally Neck no lymphadenopathy and supple Lymph Lymphatic: no lymphadenopathy noted and no lymphedema noted Resp Resp Narrative: mildly diminished breath sounds bibasally, no wheezes or crackles. On 2L of oxygen by nasal canula Cardio regular rate, regular rhythm, S1 normal heart sound, S2 normal heart sound and no murmurs GI normal to inspection, nondistended, normoactive bowel sounds, soft to palpation, non-tender and non-distended Extremity normal capillary refill, no clubbing, cyanosis or edema and no calf tenderness Skin General Skin Exam: no breakdown Neuro CN's II-XII intact bilaterally, no focal motor deficits and no sensory deficits noted Psych thought process normal and cooperative Appearance: appropriate Assessment & Plan Assessment/Plan (1) Acute kidney injury: PLAN: Plan #Acute hypoxic and hypercapnic respiratory failure * Thought to be multifactorial, due to acute on chronic combined heart failure with bilateral lower lobe pneumonia * 2D echo done showed EF of 40 to 45% with moderate to severe aortic stenosis and stage I diastolic dysfunction. * COVID test negative, respiratory panel negative and urine for strep and Legionella antigens negative. * Was on IV vancomycin and Zosyn but had red man syndrome so vancomycin was discontinued. ID on board and currently on IV meropenem. * Breathing treatments of bronchodilators. Titrate oxygen to maintain saturation above 90%. * Sputum cultures growing 3+ yeast. On fluconazole. Thoracentesis was done and fluid cultures are negative so far. WBC has trended up further to 33K today. * #ENMANUEL on CKD IV : * Due to worsening kidney function, he ended up having temporary dialysis catheter inserted by general surgery. * Patient currently undergoing dialysis. * Management as per nephrology. * for tunneled dialysis catheter insertion today #non ST elevation CT: * Troponins peaked at 36,516. * Was on heparin drip but this was subsequently held for the hemodialysis catheter placement. * Was originally planned to have cardiac cath but due to worsening kidney function, this was aborted. * On aspirin. Plavix on hold. * Cardiology on board- per discussion with cardiology, to have stress test today. Cardiac cath not done yet due to anemia and the fact that he is having a tunneled dialysis catheter insertion today. #Anemia: Hemoglobin today is up to 7.7 from 7.5 today. #DKA: Is a known diabetic with A1c of 9.2 from 11/29/2022. Anion gap closed and DKA resolved. Now on Lantus. Insulin sliding scale. Accu-Cheks ACHS. #Hypertension:. On amlodipine and metoprolol. #Hyponatremia: Likely due to ENMANUEL on CKD 4. Resolved. #Depression: This was thought to be due to the fact that he was in the hospital. Currently on low-dose sertraline. #Left upper extremity swelling. Improved. Duplex of the left upper extremity was negative for deep blood clot. #BPH: On finasteride #NIKHIL: On BiPAP nightly #Hyperlipidemia: On statin DVT prophylaxis: On heparin subcu Charges/Coding Visit Charges Inpatient E&M: 30928 Subs Hosp L3
--- NOTE | 2022-12-09 13:33 | PCM.OPRPT ---
Report of Operation Date of Procedure: 12/09/22 Pre-Operative Diagnosis: CKD 5 requiring hemodialysis for acute volume overload Post-Operative Diagnosis: Same Surgery/Procedure Performed:: Ultrasound and fluoroscopic guided insertion of tunneled hemodialysis catheter Surgeon: César Gutiérrez office machine service supervisor: None Type of Anesthesia: MAC/Supplemental Anesthesiologist: Channing Kearney Estimated Blood Loss (mL): 50 Description of Procedure: After appropriate identification in the preoperative holding area the patient was brought to the operating room where they were positioned supine on the operating room table. Preoperative antibiotics were completely administered. Sedation was begun per anesthesia and the patient's right neck was prepped and draped in usual sterile fashion after confirming patency of the right internal jugular vein with bedside ultrasound. Formal timeout was conducted to confirm both the patient and the procedure. Procedure was begun with ultrasound-guided access of the right internal jugular vein using a micropuncture access kit. Fluoroscopy confirmed appropriate position of the wire and the micro access sheath. At this point I made a measurement from the insertion site to the mid atrium of approximately 18 cm. Desiring some room for the patient's tunneling/cuff placement, elected to proceed with a 23 cm catheter. The 035 guidewire from the catheter kit was placed through the micro access sheath and again fluoroscopy was used to confirm this placement. The insertion site was then enlarged sharply and bluntly. Measuring back from the proximal insertion site on the catheter, we determined that the tunneling site would need to be at least 5 cm away from the insertion site. Therefore this was measured out on the patient's chest and a counterincision was made at this point after instilling local anesthetic. A gentle curve of the tunneling tract to the insertion site was also instilled with local anesthetic. Then the catheter was connected to the tunneling device and was tunneled to the insertion site. I again measured the distance to the mid atrium and pulled back additional catheter. Next the insertion site was serially dilated and the peel-away sheath was placed under fluoroscopy. The catheter was fed through the peel-away sheath and once we neared completion another fluoroscopy image was obtained. Functionally, the catheter was tested with aspiration and flush of injectable saline which it did with ease. The insertion site was then closed with a single interrupted 3-0 nylon stitch. Another 3-0 nylon stitch was used to close down the insertion site at the tunneling entrance as a means of creating a cerclage. Lastly, the catheter was secured at the tiedown points on each port with a interrupted 3-0 nylon. The catheter was locked with 2 mL heparinized saline (concentration 1000 units/mL) per package specification. A silver dressing was cut to fit about the catheter and was positioned around the tubing as a dressing sponge. Lastly this ensemble is taped in the place with the dressing. A small OpSite was applied to the insertion site. Patient was then allowed to emerge from sedation and was taken to PACU in stable condition. A chest x-ray was ordered in PACU for review of the catheter placement and to exclude pneumothorax. Grafts/Implants Used: Palindrome chronic catheter 14.5F X 23 cm [id number] Complications None Procedures Cardiovascular CF Procedures [id number]: [id number] Insert tunneled cv cath
--- NOTE | 2022-12-09 13:50 | RAD_ITS ---
STUDY: X-RAY CHEST REASON FOR EXAM: Male, 77 years old. Status post line placement TECHNIQUE: Single AP portable view of the chest. COMPARISON: December 04, 2022 FINDINGS: 1. Interval placement of a right central venous catheter terminating in the right atrium 2. No pneumothorax 3. Interval development of moderate pulmonary vascular congestion and edema and small bilateral pleural effusions 4. Normal heart size 5. Stable mediastinum and osseous structures There is no demonstrated abnormality of the visualized soft tissue structures of the upper abdomen. RAD/CXR for Line Placement IMPRESSION: * Interval development of moderate pulmonary vascular congestion and edema and small bilateral pleural effusions Electronically Signed: Daniel Joyner MD at 15:25 EDT ,
[2022-12-09 17:58] LABS: Bedside Glucose 228 mg/dL (74-106)
[2022-12-09] MEDS: Gabapentin 100 MG Capsule 200 MG PO (18:28)
[2022-12-09] MEDS: Finasteride 5 MG Tablet PO (18:28)
[2022-12-09] MEDS: Fluconazole 100 MG Tablet PO (18:28)
[2022-12-09] MEDS: Multivitamin (Healthy Eyes) Capsule 1 CAP PO (18:29)
[2022-12-09] MEDS: Magnesium Chloride 64 MG Delay Rel.Tablet 128 MG PO (18:29)
[2022-12-09] MEDS: Ferrous Sulfate 325 MG Tablet PO (18:30)
[2022-12-09] MEDS: amLODIPine 5 MG Tablet PO (18:30)
[2022-12-09] MEDS: Aspirin E.C. 81 MG Tablet PO (18:30)
[2022-12-09] MEDS: Docusate Sodium 100 MG Capsule 200 MG PO ×2 (18:32→22:27)
[2022-12-09] MEDS: Pantoprazole Sodium 40 MG Tablet PO ×2 (18:33→22:27)
[2022-12-09] MEDS: Sertraline 50 MG Tablet PO (18:33)
[2022-12-09] MEDS: Insulin Lispro 100 UNIT/ML INSULN.PEN 10 UNIT SC (18:34)
[2022-12-09] MEDS: Cholecalciferol (Vit D3) 125 MCG CAPSULE (5,000 UNITS) PO (18:34)
[2022-12-09] MEDS: Folic Acid 1 MG Tablet 0.5 MG PO (19:00)
[2022-12-09 20:36] LABS: Bedside Glucose 306 mg/dL (74-106)
[2022-12-09] MEDS: Atorvastatin Calcium 40 MG Tablet PO (22:27)
[2022-12-10] VITALS (17 sets, daily range): BP systolic 90–180; BP diastolic 42–75; PULSE 64–80; RESP 12–20; TEMP 36.1–37; O2SAT 90–95; BMI 23.9; BMI 23.1
[2022-12-10 05:33] LABS: Hematocrit 23.6 % (40-54); Hemoglobin 7.5 g/dL (13.0-16.5); Mean Corp Hgb Conc 31.8 g/dL (32-36); Mean Corpuscular Hgb 29.6 pg (27.0-32.0); Mean Corpuscular Volume 93.3 fL (80-94); Mean Platelet Vol. 11.5 fl (6.2-12.0); POSITIVE COUNT YES; POSITIVE DIFFERENTIAL YES; POSITIVE MORPHOLOGY YES; Platelet Count 235 K/mm3 (150-450); RBC Distribution Width CV 14.9 % (11.6-14.6); RBC Distribution Width SD 50.4 fl (35.1-43.9); Red Blood Count 2.53 M/mm3 (4.6-6.2); White Blood Count 28.4 K/mm3 (4.4-11.0)
[2022-12-10 05:37] LABS: Differential Indicated MANUAL DIFF
[2022-12-10 05:58] LABS: Bedside Glucose 172 mg/dL (74-106)
[2022-12-10 05:59] LABS: Anion Gap 6 (5-15); BUN 81 mg/dL (7-18); BUN/Creat Ratio 18.5 RATIO (10-20); Calcium,Total 8.1 mg/dL (8.5-10.1); Chloride 107 mmol/L (98-107); Creatinine, Serum 4.39 mg/dL (0.70-1.30); EST Glomerular Filtration Rate 14 mL/min (>60); Est Glom Filt Rate - Afr Amer 17 mL/min (>60); Estimated Creatinine Clearance 12.76 ml/min; Glucose 184 mg/dL (74-106); Potassium 4.5 mmol/L (3.5-5.1); Sodium Level 136 mmol/L (136-145)
[2022-12-10 06:07] LABS: Eosinophil 5 % (0-5); Lymphocyte 4 % (19-41); Metamyelocyte 3 % (0-1); Monocyte 2 % (0-10); Myelocyte 2 % (0-0); Neutrophil-Band 2 % (0-5); Neutrophil-Segmented 82 % (47-70); Platelet Estimate ADEQUATE (ADEQ); Red Cell Morphology NORM C+C NORMAL (NORM C&C); Total Cells Counted 100 (MANUAL DIFF)
[2022-12-10 06:08] LABS: Absolute Lymphocyte Count 1.13 X10^3/uL (0.83-4.51); Absolute Neutrophil Count 23.8 X10^3/uL (2.0-7.7); Lymphocyte # 1.13 X10^3/ul (0.83-4.51); Neutrophil # 23.83 X10^3/uL (2.7-7.7)
[2022-12-10] MEDS: Ipratropium/Albuterol Sulfate 3 ML AMPUL.NEB INHALATION ×3 (07:27→19:25)
--- NOTE | 2022-12-10 08:22 | PN.SURG_ITS ---
Subjective Subjective Patient seen and examined during AM rounds. He is quite lethargic this morning. He has several nursing aides assisting him to urinate into a urinal. He states that there is some soreness of his right neck. Nursing reports that he is pending dialysis later today. Objective Data Objective Data Vital Signs: Vital Signs Temp Pulse Resp BP Pulse Ox O2 Del Method O2 Flow Rate 98.6 F 75 18 101/52 L 90 Nasal Cannula 3 12/10/22 03:00 12/10/22 07:30 12/10/22 07:30 12/10/22 03:00 12/10/22 07:30 12/10/22 07:30 12/10/22 07:30 FiO2 43 12/03/22 07:04 Oxygen Flow Rate (L/min) [5] 2 Oxygen Flow Rate (L/min) [4] 2 Oxygen Flow Rate (L/min) [2] 2 Oxygen Flow Rate (L/min) [1 ( 2 Initial Baseline)] Oxygen Flow Rate (L/min) 3 Oxygen Delivery Method [5] Nasal Cannula Oxygen Delivery Method [4] Nasal Cannula Oxygen Delivery Method [3] Room Air Oxygen Delivery Method [2] Nasal Cannula Oxygen Delivery Method [1 ( Nasal Cannula Initial Baseline)] Oxygen Delivery Method Nasal Cannula Weight: 153 lb 0.013 oz Body Mass Index (BMI) 23.9 Intake & Output: Intake and Output for Last 24 Hours 12/08/22 12/09/22 12/10/22 23:59 23:59 23:59 Intake Total 940 / 940 60 / 300 240 / 240 Output Total 3025 / 3025 100 / 100 Balance -2085 / -2085 60 / 200 140 / 140 Lab / Micro Data 12/10/22 05:10 12/10/22 05:10 Labs: Laboratory Results - last 24 hr 12/06/22 03:29: Diff Path Review Reviewed 12/07/22 05:13: Diff Path Review Reviewed 12/08/22 05:56: Diff Path Review Reviewed 12/09/22 10:44: POC Glucose 307 H 12/09/22 16:40: POC Glucose 228 H 12/09/22 20:17: POC Glucose 306 H 12/10/22 05:10: WBC 28.4 H, RBC 2.53 L, Hgb 7.5 L, Hct 23.6 L, MCV 93.3, MCH 29.6, MCHC 31.8 L, RDW Std Deviation 50.4 H, RDW Coeff of Russell 14.9 H, Plt Count 235, MPV 11.5, Neut % (Auto) Not Reportable, Absolute Neuts (auto) 23.8 H, Abs olute Lymphs (auto) 1.13, Total Counted 100, Neutrophils % (Manual) 82 H, Band Neutrophils % 2, Lymphocytes % (Manual) 4 L, Monocytes % (Manual) 2, Eosinophils % (Manual) 5, Metamyelocytes % 3 H, Myelocytes % 2 H, Diff Path Review August, Platelet Estimate ADEQUATE, RBC Morphology NORM C+C, Sodium 136, Potassium 4.5, Chloride 107, Carbon Dioxide 23.0, Anion Gap 6, BUN 81 H, Creatinine 4.39 H, Estim Creat Clear Calc 12.76, Est GFR (MDRD) Af Amer 17 L, Est GFR (MDRD) Non-Af 14 L, BUN/Creatinine Ratio 18.5, Glucose 184 H, Calcium 8.1 L 12/10/22 05:14: POC Glucose 172 H Micro: Microbiology 12/04/22 13:55 Fluid - Thoracentesis Fluid Gram Stain - Final 12/04/22 13:55 Fluid - Thoracentesis Fluid Body Fluid Culture - Final Culture exhibits no growth. 12/04/22 13:55 Fluid - Thoracentesis Fluid Anaerobic Culture - Final No growth in 5 days. 12/02/22 12:06 Blood Culture (Wb) - Anticubital Right Blood Culture - Final No growth in 5 days. 12/02/22 12:00 Blood Culture (Wb) - Right Hand Blood Culture - Final No growth in 5 days. 12/04/22 17:00 Sputum, Expectorated/Coughed Gram Stain - Final 12/04/22 17:00 Sputum, Expectorated/Coughed Respiratory Culture - Final Presumptive C albicans 11/29/22 09:55 Blood Culture (Wb) - Anticubital Right Blood Culture - Final No growth in 5 days. 11/29/22 10:10 Blood Culture (Wb) - Anticubital Left Blood Culture - Final No growth in 5 days. 11/29/22 08:50 Mucosa - Nasopharyngeal Respiratory Panel (PCR) - Final 11/29/22 10:40 Urine, Random Legionella Antigen - Final 11/29/22 10:40 Urine, Random Streptococcus pneumoniae Antigen (M - Final 11/28/22 00:06 Nasal Secretion SARS-CoV-2 Antigen (Rapid) - Final Radiography Diagnostic Testing: Radiology Impression Chest X-Ray 12/09/22 13:50 IMPRESSION: * Interval development of moderate pulmonary vascular congestion and edema and small bilateral pleural effusions Electronically Signed: Daniel Joyner MD at 15:25 EDT Reading Location ID and State: [facility] / [place] , Service support , Physical Exam Const oriented x3 and no apparent distress Neck Neck Narrative: Right HD catheter insertion site unremarkable. Specifically no signs of subcutaneous hematoma or oozing. Dressing is clean dry and intact. Resp normal respiratory effort Assessment & Plan Assessment/Plan (1) Acute kidney injury: (2) 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 1 diabetes mellitus: PLAN: Plan This is a 77-year-old male with a history of chronic kidney disease and now acute kidney injury. He is admitted for management of multifocal pneumonia as well as diabetic ketoacidosis and hypertensive urgency. Surgery was consulted for consideration of hemodialysis catheter placement given the patient has an element of volume overload compromising his respiratory status. A nontunneled hemodialysis catheter was placed last week, however, it became somewhat sluggish with its function on the most recent sessions and I suspected this is due to its position within the SVC rather than the right atrium. All along, nephrology had requested placement of a tunneled hemodialysis catheter, however, given the patient's elevated white blood cell count I was a bit reluctant to pursue this placement. Yet patient did undergo an extensive infectious work-up as well as consultation with hematology oncology and it was jointly determined that benefits outweighed the risk so I proceeded with placement of a tunneled catheter yesterday the OR. Catheter tip was positioned in the atrium to try to mitigate risk for malfunction during dialysis. This morning the catheter appearance is appropriate and patient is pending dialysis later today. I have asked dialysis nursing to notify me of any concerns. Charges/Coding Visit Charges Inpatient E&M: 25025 Subs Hosp L2
[2022-12-10 08:54] LABS: Ferritin 359 ng/mL (26-388); Iron 32 ug/dL (65-175); Iron Binding Capacity,Total 187 ug/dL (250-450); PERCENT IRON SATURATION 17.1 % (15.0-55.0)
--- NOTE | 2022-12-10 09:42 | CASEMGMT ---
NADEEM VINCENT placed referral for outpatient HD at [facility] as requested by nephrology. Referral completed on [facility] patient portal. NADEEM VINCENT received schedule of MWF at 0650. SW updated. NADEEM VINCENT to updated patient when available. CM will continue to follow this patient and plan for a safe discharge.
[2022-12-10] MEDS: Acetaminophen 325 MG Tablet 650 MG PO (11:00)
[2022-12-10] MEDS: Insulin Lispro 100 UNIT/ML INSULN.PEN SC ×3 (11:06→21:15)
[2022-12-10] MEDS: Insulin Glargine-YFGN 100 UNIT/ML Pen 15 UNIT SC (11:08)
--- NOTE | 2022-12-10 11:11 | CASEMGMT ---
Discharge Planning A list of home health providers including quality and resource use data and consistent with the patient?s preferred geographic region, medical needs, and insurance network was created in [employer] Guide. This list was provided to the RN MELISA. Melyssa Michaud, Discharge Planning Asst.?
--- NOTE | 2022-12-10 11:20 | PN.RENAL_ITS ---
Subjective Subjective no new events Objective Data Objective Data Vital Signs: Vital Signs Temp Pulse Resp BP Pulse Ox O2 Del Method O2 Flow Rate 98.4 F 75 18 133/45 H 90 Nasal Cannula 3 12/10/22 10:54 12/10/22 10:54 12/10/22 10:54 12/10/22 10:54 12/10/22 10:54 12/10/22 10:54 12/10/22 10:54 FiO2 43 12/03/22 07:04 Oxygen Flow Rate (L/min) [5] 2 Oxygen Flow Rate (L/min) [4] 2 Oxygen Flow Rate (L/min) [2] 2 Oxygen Flow Rate (L/min) [1 ( 2 Initial Baseline)] Oxygen Flow Rate (L/min) 3 Oxygen Delivery Method [5] Nasal Cannula Oxygen Delivery Method [4] Nasal Cannula Oxygen Delivery Method [3] Room Air Oxygen Delivery Method [2] Nasal Cannula Oxygen Delivery Method [1 ( Nasal Cannula Initial Baseline)] Oxygen Delivery Method Nasal Cannula Weight: 69.4 kg Body Mass Index (BMI) 23.9 Intake & Output: Intake and Output for Last 24 Hours 12/08/22 12/09/22 12/10/22 23:59 23:59 23:59 Intake Total 940 / 940 60 / 300 240 / 240 Output Total 3025 / 3025 100 / 100 Balance -2085 / -2085 60 / 200 140 / 140 Lab / Micro Data 12/10/22 05:10 12/10/22 05:10 Labs: Laboratory Results - last 24 hr 12/06/22 03:29: Diff Path Review Reviewed 12/09/22 16:40: POC Glucose 228 H 12/09/22 20:17: POC Glucose 306 H 12/10/22 05:10: WBC 28.4 H, RBC 2.53 L, Hgb 7.5 L, Hct 23.6 L, MCV 93.3, MCH 29.6, MCHC 31.8 L, RDW Std Deviation 50.4 H, RDW Coeff of Russell 14.9 H, Plt Count 235, MPV 11.5, Neut % (Auto) Not Reportable, Absolute Neuts (auto) 23.8 H, Absolute Lymphs (auto) 1.13, Total Counted 100, Neutrophils % (Manual) 82 H, Band Neutrophils % 2, Lymphocytes % (Manual) 4 L, Monocytes % (Manual) 2, Eosinophils % (Manual) 5, Metamyelocytes % 3 H, Myelocytes % 2 H, Diff Path Review May foll, Platelet Estimate ADEQUATE, RBC Morphology NORM C+C, Sodium 136, Potassium 4.5, Chloride 107, Carbon Dioxide 23.0, Anion Gap 6, BUN 81 H, Creatinine 4.39 H, Estim Creat Clear Calc 12.76, Est GFR (MDRD) Af Amer 17 L, Est GFR (MDRD) Non-Af 14 L, BUN/Creatinine Ratio 18.5, Glucose 184 H, Calcium 8.1 L, Iron 32 L, TIBC 187 L, Iron Saturation 17.1, Ferritin 359 12/10/22 05:14: POC Glucose 172 H Micro: Microbiology 12/04/22 13:55 Fluid - Thoracentesis Fluid Gram Stain - Final 12/04/22 13:55 Fluid - Thoracentesis Fluid Body Fluid Culture - Final Culture exhibits no growth. 12/04/22 13:55 Fluid - Thoracentesis Fluid Anaerobic Culture - Final No growth in 5 days. 12/02/22 12:06 Blood Culture (Wb) - Anticubital Right Blood Culture - Final No growth in 5 days. 12/02/22 12:00 Blood Culture (Wb) - Right Hand Blood Culture - Final No growth in 5 days. 12/04/22 17:00 Sputum, Expectorated/Coughed Gram Stain - Final 12/04/22 17:00 Sputum, Expectorated/Coughed Respiratory Culture - Final Presumptive C albicans 11/29/22 09:55 Blood Culture (Wb) - Anticubital Right Blood Culture - Final No growth in 5 days. 11/29/22 10:10 Blood Culture (Wb) - Anticubital Left Blood Culture - Final No growth in 5 days. 11/29/22 08:50 Mucosa - Nasopharyngeal Respiratory Panel (PCR) - Final 11/29/22 10:40 Urine, Random Legionella Antigen - Final 11/29/22 10:40 Urine, Random Streptococcus pneumoniae Antigen (M - Final 11/28/22 00:06 Nasal Secretion SARS-CoV-2 Antigen (Rapid) - Final Radiography Diagnostic Testing: Radiology Impression Chest X-Ray 12/09/22 13:50 IMPRESSION: * Interval development of moderate pulmonary vascular congestion and edema and small bilateral pleural effusions Electronically Signed: Daniel Joyner MD at 15:25 EDT Reading Location ID and State: [facility] / [place] , Service support , Physical Exam Narrative getting physical therapy this am Trace edema bilateral legs Right IJ non-tunneled HD catheter dressing clean, dry and intact Const alert, oriented x3, no apparent distress and average body habitus General Appearance: well developed Orientation / Consciousness: oriented to person, oriented to place and oriented to time HEENT normocephalic Eyes PERRL Neck no lymphadenopathy Resp no use of accessory muscles Resp Narrative: Diminished breath sounds with scattered crackles Auscultation: crackles right and left Cardio regular rate and no rub GI non-tender Auscultation: normoactive bowel sounds Palpation: soft Skin General Skin Exam: ecchymosis Neuro Sensorium / Orientation: awake and alert Psych cooperative Assessment & Plan Assessment/Plan (1) Acute kidney injury: (2) 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 1 diabetes mellitus: PLAN: - History of CKD stage IV with underlying GFR ~20ml/min. Patient admitted non-STEMI, DKA and hypertensive emergency. Appreciate surgery placing non- tunneled temporary HD catheter 12/02. Patient underwent 1st hemodialysis 12/02. -s/P tunneled HD catheter placement - patient will need outpatient dialysis arrangements at [facility], Dx: ENMANUEL on CKD stage 4. vein mapping. -Acute respiratory failure multifactorial from decompensated heart failure, underlying valvular heart disease/aortic stenosis and possible pneumonia along with COPD. Currently on antibiotics and receiving breathing treatments. Elevated WBC possibly from steroid injection pre-hospital. Blood cultures from 11/29 & 12/02 no growth. Thoracentesis fluid no growth. no fevers - NSTEMI; cardiology following. s/p cardiac cath - CT chest showed b/l pleural effusions and underwent thoracentesis with 650ml fluid removed. Chest x-ray after thoracentesis showed resolution of left-sided pleural effusion.
[2022-12-10 11:49] LABS: Bedside Glucose 313 mg/dL (74-106)
--- NOTE | 2022-12-10 12:05 | CASEMGMT ---
NADEEM VINCENT reviewed progress with therapy today. Per therapy, patient could go home with HHC. NADEEM VINCENT in to discuss discharge planning with patient and . NADEEM VINCENT reviewed progress with therapy with patient and . Patient states he would like to return home. NADEEM VINCENT discussed HHC with patient and . A list of HHC providers including quality and resource use data and consistent with the patient?s preferred geographical region, medical needs, and insurance network were provided from the [employer]Port Guide. would like [facility]. inquired about FWW and home oxygen. NADEEM VINCENT updated that patient will have testing for home oxygen closer to discharge and if patient qualifies, home oxygen will be setup. states they prefer [employer]. NADEEM VINCENT also updated regarding schedule to for HD at [facility] and provided to . voiced understanding. had no further questions or concerns. NADEEM VINCENT made referral to [facility], awaiting acceptance. CM will continue to follow this patient and plan for a safe discharge.
[2022-12-10] MEDS: 0.9% Saline Lock 10 ML Syringe IV (12:12)
[2022-12-10] MEDS: PureFlow B 2K Dialysis Soln 1 BAG 6 BAG PF (12:13)
[2022-12-10] MEDS: 0.9% Normal Saline 1,000 ML IV.SOLN. 1000 ML OPERA.SITE (12:13)
[2022-12-10 12:47] LABS: Pathologist Review Reviewed
--- NOTE | 2022-12-10 12:47 | STRESSREP_ITS ---
Stress Test Report Date: 12/10/2022 Procedure: Pharmacologic stress nuclear imaging study Indications: Non-STEMI Consent: Per the patient Procedure: The patient underwent pharmacologic (Regadenoson) evaluation with a peak heart rate of 81 beats per minute (57%predicted maximal heart rate) and a peak blood pressure of 142/50 mmHg. The baseline ECG demonstrated normal sinus rhythm. EKG during lexiscan infusion revealed no significant ischemic changes. EKG post infusion revealed no significant ischemic changes [There were no cardiac dysrhythmias pretest, during pharmacologic infusion, or recovery]. [There was no complaint of chest discomfort during pharmacologic infusion or recovery]. The examination was discontinued secondary to completion of protocol. Impression: 1. Lexiscan stress test test is negative for Lexiscan infusion induced EKG changes of ischemia. 2. Lexiscan stress test test is negative for Lexiscan infusion induced chest pain. 3. Results of the nuclear portion of the test is as below Myocardial perfusion imaging study: Technique: The patient was injected with 11 millicuries of technetium 99m Cardiolite and subsequently rest SPECT Cardiolite nuclear imaging was obtained in the horizontal long, vertical long, and short axis views. The patient underwent pharmacologic [Regadenoson 0.4mg] evaluation. Please see above for details. The patient was injected with 33.4 millicuries of technetium 99m Cardiolite and subsequently stress SPECT Cardiolite nuclear imaging was obtained in the horizontal long, vertical long, and short axis views. A gated Cardiolite study at peak stress was obtained. Interpretation: Rest and stress SPECT Cardiolite nuclear imaging status post realignment, normalization, and attenuation correction demonstrate normal myocardial radioisotope uptake after attenuation correction. Prior to attenuation correction there is mildly decreased radioisotope in the inferior wall on both the rest and stress images. Gated images reveal no significant regional wall motion abnormalities. The reported LVEF is 52%. These findings are suggestive of diaphragmatic attenuation artifact. There is no evidence of significant ischemia or infarction Impression: 1. There is no evidence of significant ischemia or infarction. 2. Estimated ejection fraction is 52%. This note was generated with Pin digital software. It may contain incorrect words, spelling, and punctuation that were not noted in checking the note before signing.
[2022-12-10 12:53] LABS: Pathologist Review Reviewed
--- NOTE | 2022-12-10 14:00 | CASEMGMT ---
NADEEM VINCENT updated by nursing that daughter would like to discuss discharge planning. NADEEM CM to room to discuss discharge planning with patient, , and daughter. Daughter voiced concerns with patient going home. NADEEM VINCENT reviewed progress with therapy and recommendations for HHC. NADEEM VINCENT explained to daughter plan for HHC with [facility] and outpatient HD at [facility]. NADEEM VINCENT reassured daughter that CM will continue to monitor progress with therapy and adjust discharge plan accordingly. Daughter voiced understanding. Daughter had no further questions or concerns at this time.
--- NOTE | 2022-12-10 15:32 | PN_ITS ---
Subjective Subjective Patient seen and examined. He has no complaints today. He had stress test today. Review of systems is otherwise negative. Objective Data Objective Data Vital Signs: Vital Signs Temp Pulse Resp BP Pulse Ox O2 Del Method O2 Flow Rate 96.9 F L 75 13 152/75 H 94 Nasal Cannula 3 12/10/22 15:12 12/10/22 15:12 12/10/22 15:12 12/10/22 15:12 12/10/22 15:12 12/10/22 15:12 12/10/22 15:12 FiO2 43 12/03/22 07:04 Oxygen Flow Rate (L/min) [5] 2 Oxygen Flow Rate (L/min) [4] 2 Oxygen Flow Rate (L/min) [2] 2 Oxygen Flow Rate (L/min) [1 ( 2 Initial Baseline)] Oxygen Flow Rate (L/min) 3 Oxygen Delivery Method [5] Nasal Cannula Oxygen Delivery Method [4] Nasal Cannula Oxygen Delivery Method [3] Room Air Oxygen Delivery Method [2] Nasal Cannula Oxygen Delivery Method [1 ( Nasal Cannula Initial Baseline)] Oxygen Delivery Method Nasal Cannula Weight: 147 lb 0.773 oz Body Mass Index (BMI) 23.1 Intake & Output: Intake and Output for Last 24 Hours 12/08/22 12/09/22 12/10/22 23:59 23:59 23:59 Intake Total 940 / 940 60 / 300 240 / 240 Output Total 3025 / 3025 5950 / 5950 Balance -2085 / -2085 60 / 200 -5710 / -5710 Lab / Micro Data 12/10/22 05:10 12/10/22 05:10 Labs: Laboratory Results - last 24 hr 12/09/22 04:45: Diff Path Review Reviewed 12/09/22 16:40: POC Glucose 228 H 12/09/22 20:17: POC Glucose 306 H 12/10/22 05:10: WBC 28.4 H, RBC 2.53 L, Hgb 7.5 L, Hct 23.6 L, MCV 93.3, MCH 29.6, MCHC 31.8 L, RDW Std Deviation 50.4 H, RDW Coeff of Russell 14.9 H, Plt Count 235, MPV 11.5, Neut % (Auto) Not Reportable, Absolute Neuts (auto) 23.8 H, Absolute Lymphs (auto) 1.13, Total Counted 100, Neutrophils % (Manual) 82 H, Band Neutrophils % 2, Lymphocytes % (Manual) 4 L, Monocytes % (Manual) 2, Eosinophils % (Manual) 5, Metamyelocytes % 3 H, Myelocytes % 2 H, Diff Path Review Reviewed, Platelet Estimate ADEQUATE, RBC Morphology NORM C+C, Sodium 136, Potassium 4.5, Chloride 107, Carbon Dioxide 23.0, Anion Gap 6, BUN 81 H, Creatinine 4.39 H, Estim Creat Clear Calc 12.76, Est GFR (MDRD) Af Amer 17 L, Est GFR (MDRD) Non-Af 14 L, BUN/Creatinine Ratio 18.5, Glucose 184 H, Calcium 8.1 L, Iron 32 L, TIBC 187 L, Iron Saturation 17.1, Ferritin 359 12/10/22 05:14: POC Glucose 172 H 12/10/22 11:04: POC Glucose 313 H Micro: Microbiology 12/04/22 13:55 Fluid - Thoracentesis Fluid Gram Stain - Final 12/04/22 13:55 Fluid - Thoracentesis Fluid Body Fluid Culture - Final Culture exhibits no growth. 12/04/22 13:55 Fluid - Thoracentesis Fluid Anaerobic Culture - Final No growth in 5 days. 12/02/22 12:06 Blood Culture (Wb) - Anticubital Right Blood Culture - Final No growth in 5 days. 12/02/22 12:00 Blood Culture (Wb) - Right Hand Blood Culture - Final No growth in 5 days. 12/04/22 17:00 Sputum, Expectorated/Coughed Gram Stain - Final 12/04/22 17:00 Sputum, Expectorated/Coughed Respiratory Culture - Final Presumptive C albicans 11/29/22 09:55 Blood Culture (Wb) - Anticubital Right Blood Culture - Final No growth in 5 days. 11/29/22 10:10 Blood Culture (Wb) - Anticubital Left Blood Culture - Final No growth in 5 days. 11/29/22 08:50 Mucosa - Nasopharyngeal Respiratory Panel (PCR) - Final 11/29/22 10:40 Urine, Random Legionella Antigen - Final 11/29/22 10:40 Urine, Random Streptococcus pneumoniae Antigen (M - Final 11/28/22 00:06 Nasal Secretion SARS-CoV-2 Antigen (Rapid) - Final Physical Exam Const alert, oriented x3 and no apparent distress General Appearance: cooperative HEENT normocephalic and head/scalp atraumatic Eyes PERRL and EOMs intact bilaterally Neck no lymphadenopathy and supple Lymph Lymphatic: no lymphadenopathy noted and no lymphedema noted Resp Resp Narrative: mildly diminished breath sounds bibasally, no wheezes or crackles. On 3 L of oxygen by nasal canula Cardio regular rate, regular rhythm, S1 normal heart sound, S2 normal heart sound and no murmurs GI normal to inspection, nondistended, normoactive bowel sounds, soft to palpation, non-tender and non-distended Extremity normal capillary refill, no clubbing, cyanosis or edema and no calf tenderness Skin General Skin Exam: no breakdown Neuro CN's II-XII intact bilaterally, no focal motor deficits and no sensory deficits noted Psych thought process normal and cooperative Appearance: appropriate Assessment & Plan Assessment/Plan (1) Acute kidney injury: PLAN: Plan #Acute hypoxic and hypercapnic respiratory failure * Thought to be multifactorial, due to acute on chronic combined heart failure with bilateral lower lobe pneumonia * 2D echo done showed EF of 40 to 45% with moderate to severe aortic stenosis and stage I diastolic dysfunction. * COVID test negative, respiratory panel negative and urine for strep and Legionella antigens negative. * Was on IV vancomycin and Zosyn but had red man syndrome so vancomycin was discontinued. ID on board and currently on IV meropenem. * Breathing treatments of bronchodilators. Titrate oxygen to maintain saturation above 90%. * Sputum cultures growing 3+ yeast. On fluconazole. Thoracentesis was done and fluid cultures are negative so far. * wbc is 28K * #ENMANUEL on CKD IV : * Due to worsening kidney function, he ended up having temporary dialysis catheter inserted by general surgery. * Patient currently undergoing dialysis. * Management as per nephrology. * for tunneled dialysis catheter insertion today #non ST elevation NE: * Troponins peaked at 36,516. * Was on heparin drip but this was subsequently held for the hemodialysis catheter placement. * Was originally planned to have cardiac cath but due to worsening kidney function, this was aborted. * On aspirin. Plavix on hold. * Cardiology on board- per discussion with cardiology, to have stress test. Cardiac cath not done yet due to anemia and the fact that he is having a tunneled dialysis catheter insertion. * had stress test today which showed no evidence of ischemia and showed EF of 52% #Anemia: Hemoglobin today is 7.5 #DKA: Is a known diabetic with A1c of 9.2 from 11/29/2022. Anion gap closed and DKA resolved. Now on Lantus. Insulin sliding scale. Accu-Cheks ACHS. #Hypertension:. On amlodipine and metoprolol. #Hyponatremia: Likely due to ENMANUEL on CKD 4. Resolved. #Depression: This was thought to be due to the fact that he was in the hospital. Currently on low-dose sertraline. #Left upper extremity swelling. Improved. Duplex of the left upper extremity was negative for deep blood clot. #BPH: On finasteride #NIKHIL: On BiPAP nightly #Hyperlipidemia: On statin DVT prophylaxis: On heparin subcu Charges/Coding Visit Charges Inpatient E&M: 26241 Subs Hosp L2
--- NOTE | 2022-12-10 16:02 | PCM.PN.ID ---
Physical Exam Narrative Feeling a little better, no fever Const alert and no apparent distress Resp Auscultation: diminished lung sounds Cardio regular rate and regular rhythm GI soft to palpation, non-tender and non-distended Extremity General Extremity: Negative for edema ID ID: Route of nutrition/ use of supplements: [] Nutritional Intake: [] IV Site: [] [place] Catheter: [] Assessment & Plan Assessment/Plan (1) Acute kidney injury: (2) Acute respiratory failure with hypoxia: (3) Pneumonia: QUALIFIERS: Pneumonia type: due to unspecified organism Laterality: right Lung location: unspecified part of lung Qualified Code(s): J18.9 - Pneumonia, unspecified organism PLAN: On meropenem. Repeat bcx neg. Sputum with 3+ yeast, cont fluc. Thoracentesis done, fluid cx neg so far. Wbc slightly improved today. Day 7 of meropenem, will stop. Will follow
[2022-12-10] MEDS: Gabapentin 100 MG Capsule 200 MG PO (16:18)
[2022-12-10] MEDS: 0.9% Normal Saline 1,000 ML 15 ML IV (16:19)
[2022-12-10 16:42] LABS: Bedside Glucose 179 mg/dL (74-106)
[2022-12-10] MEDS: Docusate Sodium 100 MG Capsule 200 MG PO (21:14)
[2022-12-10] MEDS: Folic Acid 1 MG Tablet 0.5 MG PO (21:14)
[2022-12-10] MEDS: Atorvastatin Calcium 40 MG Tablet PO (21:14)
[2022-12-10] MEDS: Pantoprazole Sodium 40 MG Tablet PO (21:15)
[2022-12-10] MEDS: Metoprolol Tartrate 25 MG Tablet 12.5 MG PO (21:15)
[2022-12-10 21:38] LABS: Bedside Glucose 280 mg/dL (74-106)
[2022-12-11] VITALS (11 sets, daily range): BP systolic 137–155; BP diastolic 55–80; PULSE 71–84; RESP 18–20; TEMP 36.3–36.7; O2SAT 86–97; BMI 23.6
[2022-12-11 05:48] LABS: Hematocrit 23.8 % (40-54); Hemoglobin 7.6 g/dL (13.0-16.5); Mean Corp Hgb Conc 31.9 g/dL (32-36); Mean Corpuscular Hgb 29.5 pg (27.0-32.0); Mean Corpuscular Volume 92.2 fL (80-94); Mean Platelet Vol. 11.6 fl (6.2-12.0); POSITIVE COUNT YES; POSITIVE DIFFERENTIAL YES; POSITIVE MORPHOLOGY YES; Platelet Count 238 K/mm3 (150-450); RBC Distribution Width CV 14.9 % (11.6-14.6); RBC Distribution Width SD 50.1 fl (35.1-43.9); Red Blood Count 2.58 M/mm3 (4.6-6.2)
[2022-12-11 05:52] LABS: Differential Indicated MANUAL DIFF
[2022-12-11 05:53] LABS: White Blood Count 30.6 K/mm3 (4.4-11.0)
[2022-12-11 06:16] LABS: Absolute Neutrophil Count 21.1 X10^3/uL (2.0-7.7); Eosinophil 15 % (0-5); Hypochromasia 1+; Lymphocyte 7 % (19-41); Metamyelocyte 1 % (0-1); Monocyte 3 % (0-10); Myelocyte 5 % (0-0); Neutrophil # 21.13 X10^3/uL (2.7-7.7); Neutrophil-Band 2 % (0-5); Neutrophil-Segmented 67 % (47-70); Platelet Estimate ADEQUATE (ADEQ); Red Cell Morphology N CYTIC NORMAL (NORM C&C); Total Cells Counted 100 (MANUAL DIFF)
[2022-12-11 06:17] LABS: Absolute Lymphocyte Count 2.14 X10^3/uL (0.83-4.51); Lymphocyte # 2.14 X10^3/ul (0.83-4.51)
[2022-12-11 06:35] LABS: Anion Gap 7 (5-15); BUN 64 mg/dL (7-18); BUN/Creat Ratio 18.1 RATIO (10-20); Calcium,Total 8.1 mg/dL (8.5-10.1); Chloride 109 mmol/L (98-107); Creatinine, Serum 3.54 mg/dL (0.70-1.30); EST Glomerular Filtration Rate 18 mL/min (>60); Est Glom Filt Rate - Afr Amer 22 mL/min (>60); Estimated Creatinine Clearance 15.82 ml/min; Glucose 243 mg/dL (74-106); Potassium 4.4 mmol/L (3.5-5.1); Sodium Level 139 mmol/L (136-145)
[2022-12-11] MEDS: Ipratropium/Albuterol Sulfate 3 ML AMPUL.NEB INHALATION ×2 (06:48→19:02)
[2022-12-11] MEDS: Insulin Lispro 100 UNIT/ML INSULN.PEN SC ×4 (07:39→20:51)
[2022-12-11] MEDS: Insulin Lispro 100 UNIT/ML INSULN.PEN 10 UNIT SC ×3 (07:39→16:30)
[2022-12-11] MEDS: Ferrous Sulfate 325 MG Tablet PO (07:40)
[2022-12-11] MEDS: Folic Acid 1 MG Tablet 0.5 MG PO ×2 (07:41→16:29)
[2022-12-11] MEDS: Aspirin E.C. 81 MG Tablet PO (07:41)
--- NOTE | 2022-12-11 08:05 | PN.HOSP_ITS ---
Reason for Visit Reason for Visit: Diagnoses Sepsis, unspecified organism (11/28/22) Anemia, unspecified (11/28/22) Other elevated white blood cell count (11/28/22) Type 1 diabetes mellitus with ketoacidosis without coma (11/28/22) Type 1 diabetes mellitus with diabetic chronic kidney disease (11/28/22) Type 1 diabetes mellitus with hyperglycemia (11/28/22) Hyperkalemia (11/28/22) Non-ST elevation (NSTEMI) myocardial infarction (11/28/22) Nonrheumatic aortic (valve) stenosis (11/28/22) Pneumonia, unspecified organism (11/28/22) Acute respiratory failure with hypoxia (11/28/22) Acute kidney failure, unspecified (11/28/22) Chronic kidney disease, stage 4 (severe) (11/28/22) Dyspnea, unspecified (11/28/22) Severe sepsis without septic shock (11/28/22) Other specified abnormalities of plasma proteins (11/28/22) Subjective Subjective No new issues. Objective Data Objective Data Vital Signs: Vital Signs Temp Pulse Resp BP Pulse Ox O2 Del Method O2 Flow Rate 36.6 C 79 18 138/55 H 95 Nasal Cannula 3 12/11/22 07:35 12/11/22 07:35 12/11/22 07:35 12/11/22 07:35 12/11/22 07:35 12/11/22 07:35 12/11/22 07:35 FiO2 43 12/03/22 07:04 Oxygen Flow Rate (L/min) [5] 2 Oxygen Flow Rate (L/min) [4] 2 Oxygen Flow Rate (L/min) [2] 2 Oxygen Flow Rate (L/min) [1 ( 2 Initial Baseline)] Oxygen Flow Rate (L/min) 3 Oxygen Delivery Method [5] Nasal Cannula Oxygen Delivery Method [4] Nasal Cannula Oxygen Delivery Method [3] Room Air Oxygen Delivery Method [2] Nasal Cannula Oxygen Delivery Method [1 ( Nasal Cannula Initial Baseline)] Oxygen Delivery Method Nasal Cannula Weight: 68.1 kg Body Mass Index (BMI) 23.6 Intake & Output: Intake and Output for Last 24 Hours 12/09/22 12/10/22 12/11/22 23:59 23:59 23:59 Intake Total 60 / 300 740 / 740 240 / 240 Output Total 5950 / 5950 Balance 60 / 200 -5210 / -5210 240 / 240 Lab / Micro Data 12/11/22 05:03 12/11/22 05:03 Labs: Laboratory Results - last 24 hr 12/09/22 04:45: Diff Path Review Reviewed 12/10/22 05:10: Diff Path Review Reviewed, Iron 32 L, TIBC 187 L, Iron Saturation 17.1, Ferritin 359 12/10/22 11:04: POC Glucose 313 H 12/10/22 16:17: POC Glucose 179 H 12/10/22 21:06: POC Glucose 280 H 12/11/22 05:03: WBC 30.6 H*, RBC 2.58 L, Hgb 7.6 L, Hct 23.8 L, MCV 92.2, MCH 29.5, MCHC 31.9 L, RDW Std Deviation 50.1 H, RDW Coeff of Russell 14.9 H, Plt Count 238, MPV 11.6, Neut % (Auto) Not Reportable, Absolute Neuts (auto) 21.1 H, Absolute Lymphs (auto) 2.14, Total Counted 100, Neutrophils % (Manual) 67, Band Neutrophils % 2, Lymphocytes % (Manual) 7 L, Monocytes % (Manual) 3, Eosinophils % (Manual) 15 H, Metamyelocytes % 1, Myelocytes % 5 H, Diff Path Review May foll, Platelet Estimate ADEQUATE, RBC Morphology N CYTIC, Hypochromasia 1+, Sodium 139, Potassium 4.4, Chloride 109 H, Carbon Dioxide 23.0, Anion Gap 7, BUN 64 H, Creatinine 3.54 H, Estim Creat Clear Calc 15.82, Est GFR (MDRD) Af Amer 22 L, Est GFR (MDRD) Non-Af 18 L, BUN/Creatinine Ratio 18.1, Glucose 243 H, Calcium 8.1 L Micro: Microbiology 12/04/22 13:55 Fluid - Thoracentesis Fluid Gram Stain - Final 12/04/22 13:55 Fluid - Thoracentesis Fluid Body Fluid Culture - Final Culture exhibits no growth. 12/04/22 13:55 Fluid - Thoracentesis Fluid Anaerobic Culture - Final No growth in 5 days. 12/02/22 12:06 Blood Culture (Wb) - Anticubital Right Blood Culture - Final No growth in 5 days. 12/02/22 12:00 Blood Culture (Wb) - Right Hand Blood Culture - Final No growth in 5 days. 12/04/22 17:00 Sputum, Expectorated/Coughed Gram Stain - Final 12/04/22 17:00 Sputum, Expectorated/Coughed Respiratory Culture - Final Presumptive C albicans 11/29/22 09:55 Blood Culture (Wb) - Anticubital Right Blood Culture - Final No growth in 5 days. 11/29/22 10:10 Blood Culture (Wb) - Anticubital Left Blood Culture - Final No growth in 5 days. 11/29/22 08:50 Mucosa - Nasopharyngeal Respiratory Panel (PCR) - Final 11/29/22 10:40 Urine, Random Legionella Antigen - Final 11/29/22 10:40 Urine, Random Streptococcus pneumoniae Antigen (M - Final 11/28/22 00:06 Nasal Secretion SARS-CoV-2 Antigen (Rapid) - Final Radiography Diagnostic Testing: Radiology Impression Vessel Mapping-Hemodialysis Access 12/09/22 09:18 Interpretation Summary Superficial thrombophlebitis right mid bicep to mid forearm and left distal bicep secondary to IV access noted within each vessel Normal diameter and flow bilateral upper arm basilic veins Normal bilateral radial and brachial artery flow Thrombophlebitis in bilateral cephalic veins will preclude utilization for arteriovenous fistula creation Ordering Physician: Maria Guadalupe Townsend Referring Physician: Cesar Keenan Performed By: Courtney Muhammad RVElda ??? Physical Exam Const alert and no apparent distress HEENT head/scalp atraumatic and moist oral mucous membranes Resp normal respiratory effort, no retractions, no use of accessory muscles and clear to auscultation bilaterally Cardio regular rate, regular rhythm, S1 normal heart sound and S2 normal heart sound GI normal to inspection, nondistended, normoactive bowel sounds, soft to palpation, non-tender and non-distended Neuro Sensorium / Orientation: awake Psych affect normal Assessment & Plan Assessment/Plan (1) Acute respiratory failure with hypoxia: PLAN: POA: 83% on 4 liters. Tachypneic at 24 BPM. 2/2 CHF and pneumonia Wean oxygen as tolerated (2) Acute kidney injury: PLAN: ENMANUEL on CKD IV On hemodialysis. Had temporary HD catheter placed on 12/02, transitioned to tunnelled HD catheter placed on 12/09. Management as per nephrology. (3) NSTEMI, initial episode of care: PLAN: Troponins peaked at 36,516. On aspirin and atorvastatin. Plavix on hold. Cardiology following Stress test on 12/11 that was negative Suspected type II event (4) DKA (diabetic ketoacidoses): QUALIFIERS: Diabetes mellitus complication detail: without coma Diabetes mellitus type: type 1 Qualified Code(s): E10.10 - Type 1 diabetes mellitus with ketoacidosis without coma PLAN: Is a known DM1 with A1c of 9.2 from 11/29/2022. Present on admission Anion gap closed and DKA resolved. Now on Lantus. Insulin sliding scale. Accu-Cheks ACHS. (5) Pneumonia: QUALIFIERS: Laterality: right Lung location: unspecified part of lung Pneumonia type: due to unspecified organism Qualified Code(s): J18.9 - Pneumonia, unspecified organism PLAN: Cx negative Completed 7 days of meropenem Currently off abx ID following. (6) Anemia: QUALIFIERS: Anemia type: due to chronic kidney disease Chronic kidney disease stage: on chronic dialysis Qualified Code(s): N18.6 - End stage renal disease; D63.1 - Anemia in chronic kidney disease; Z99.2 - Dependence on renal dialysis PLAN: Anemia of chronic disease Stable monitor (7) HFrEF (heart failure with reduced ejection fraction): PLAN: EF 40-45% No diuretics/JOON-i/ARB given ENMANUEL (8) Hyponatremia: PLAN: Resolved Suspect due to volume overload. (9) Edema of left upper arm: PLAN: Left upper extremity swelling. Improved. Duplex of the left upper extremity was negative for deep blood clot. (10) Leukocytosis: QUALIFIERS: Leukocytosis type: unspecified Qualified Code(s): D72.829 - Elevated white blood cell count, unspecified PLAN: persistently elevated unclear significance continue to monitor PLAN: Plan Chronic conditions: * Hypertension:. On amlodipine and metoprolol. * Depression: This was thought to be due to the fact that he was in the hospital. Currently on low-dose sertraline. * BPH: On finasteride * NIKHIL: On BiPAP nightly * Hyperlipidemia: On statin DVT prophylaxis: On heparin subcu Disposition: plan for SNF pending selection and insurance approval. Charges/Coding Visit Charges Inpatient E&M: 02800 Subs Hosp L2
[2022-12-11 08:07] LABS: Bedside Glucose 306 mg/dL (74-106)
[2022-12-11] MEDS: Gabapentin 100 MG Capsule 200 MG PO ×3 (09:08→16:29)
[2022-12-11] MEDS: Docusate Sodium 100 MG Capsule 200 MG PO ×2 (09:10→20:52)
[2022-12-11] MEDS: Multivitamin (Healthy Eyes) Capsule 1 CAP PO (09:12)
[2022-12-11] MEDS: Insulin Glargine-YFGN 100 UNIT/ML Pen 15 UNIT SC (09:13)
[2022-12-11] MEDS: Metoprolol Tartrate 25 MG Tablet 12.5 MG PO ×2 (09:14→20:54)
[2022-12-11] MEDS: Magnesium Chloride 64 MG Delay Rel.Tablet 128 MG PO (09:15)
[2022-12-11] MEDS: amLODIPine 5 MG Tablet PO (09:15)
[2022-12-11] MEDS: Pantoprazole Sodium 40 MG Tablet PO ×2 (09:16→20:55)
[2022-12-11] MEDS: Sertraline 50 MG Tablet PO (09:16)
[2022-12-11] MEDS: Cholecalciferol (Vit D3) 125 MCG CAPSULE (5,000 UNITS) PO (09:16)
[2022-12-11] MEDS: Finasteride 5 MG Tablet PO (09:16)
--- NOTE | 2022-12-11 09:18 | PN_ITS ---
Assessment & Plan Assessment/Plan (1) End stage renal disease: PLAN: Vein mapping has been completed on 12/09. Patient will need to contact our office for a consultation with Dr. Lassiter for fistula creation Referral will need to be sent from the android programmer to our office to schedule patient
[2022-12-11] MEDS: Fluconazole 100 MG Tablet PO (09:44)
[2022-12-11] MEDS: Calcium Carbonate 500 MG Tablet PO (09:44)
--- NOTE | 2022-12-11 11:06 | CASEMGMT ---
Discharge Planning A list of SNF providers including quality and resource use data and consistent with the patient?s preferred geographic region, medical needs, and insurance network was created in [facility] [facility]. This list was provided to the SW. Melyssa Michaud Discharge Planning Asst.
[2022-12-11 11:37] LABS: Bedside Glucose 247 mg/dL (74-106)
--- NOTE | 2022-12-11 14:46 | CASEMGMT ---
Earlier this am patient's asked if SW could come to their room today around 03/1230 to talk about d/c plan as they are concerned with patient going home. SW stopped by patient's room around that time and patient's told SW that her daughter is not going to be coming in today. Patient's said she really wants her daughter present for this discussion. SW told patient's SW will check back tomorrow am. Patient's was in agreement with this plan. Felisha Rodríguez MSW RANDOLPH
--- NOTE | 2022-12-11 15:03 | PN.RENAL_ITS ---
Subjective Subjective No new complaints today. Objective Data Objective Data Vital Signs: Vital Signs Temp Pulse Resp BP Pulse Ox O2 Del Method O2 Flow Rate 97.4 F L 75 20 H 138/58 H 96 Nasal Cannula 3 12/11/22 11:12 12/11/22 11:12 12/11/22 11:12 12/11/22 11:12 12/11/22 11:12 12/11/22 11:12 12/11/22 11:12 FiO2 43 12/03/22 07:04 Oxygen Flow Rate (L/min) [5] 2 Oxygen Flow Rate (L/min) [4] 2 Oxygen Flow Rate (L/min) [2] 2 Oxygen Flow Rate (L/min) [1 ( 2 Initial Baseline)] Oxygen Flow Rate (L/min) 3 Oxygen Delivery Method [5] Nasal Cannula Oxygen Delivery Method [4] Nasal Cannula Oxygen Delivery Method [3] Room Air Oxygen Delivery Method [2] Nasal Cannula Oxygen Delivery Method [1 ( Nasal Cannula Initial Baseline)] Oxygen Delivery Method Nasal Cannula Weight: 68.1 kg Body Mass Index (BMI) 23.6 Intake & Output: Intake and Output for Last 24 Hours 12/09/22 12/10/22 12/11/22 23:59 23:59 23:59 Intake Total 60 / 300 740 / 740 811.75 / 811.75 Output Total 5950 / 5950 3350 / 3350 Balance 60 / 200 -5210 / -5210 -2538.25 / -2538.25 Lab / Micro Data 12/11/22 05:03 12/11/22 05:03 Labs: Laboratory Results - last 24 hr 12/10/22 16:17: POC Glucose 179 H 12/10/22 21:06: POC Glucose 280 H 12/11/22 05:03: WBC 30.6 H*, RBC 2.58 L, Hgb 7.6 L, Hct 23.8 L, MCV 92.2, MCH 29.5, MCHC 31.9 L, RDW Std Deviation 50.1 H, RDW Coeff of Russell 14.9 H, Plt Count 238, MPV 11.6, Neut % (Auto) Not Reportable, Absolute Neuts (auto) 21.1 H, Absolute Lymphs (auto) 2.14, Total Counted 100, Neutrophils % (Manual) 67, Band Neutrophils % 2, Lymphocytes % (Manual) 7 L, Monocytes % (Manual) 3, Eosinophils % (Manual) 15 H, Metamyelocytes % 1, Myelocytes % 5 H, Diff Path Review May foll, Platelet Estimate ADEQUATE, RBC Morphology N CYTIC, Hypochromasia 1+, Sodium 139, Potassium 4.4, Chloride 109 H, Carbon Dioxide 23.0, Anion Gap 7, BUN 64 H, Creatinine 3.54 H, Estim Creat Clear Calc 15.82, Est GFR (MDRD) Af Amer 22 L, Est GFR (MDRD) Non-Af 18 L, BUN/Creatinine Ratio 18.1, Glucose 243 H, Calcium 8.1 L 12/11/22 07:38: POC Glucose 306 H 12/11/22 11:07: POC Glucose 247 H Micro: Microbiology 12/04/22 13:55 Fluid - Thoracentesis Fluid Gram Stain - Final 12/04/22 13:55 Fluid - Thoracentesis Fluid Body Fluid Culture - Final Culture exhibits no growth. 12/04/22 13:55 Fluid - Thoracentesis Fluid Anaerobic Culture - Final No growth in 5 days. 12/02/22 12:06 Blood Culture (Wb) - Anticubital Right Blood Culture - Final No growth in 5 days. 12/02/22 12:00 Blood Culture (Wb) - Right Hand Blood Culture - Final No growth in 5 days. 12/04/22 17:00 Sputum, Expectorated/Coughed Gram Stain - Final 12/04/22 17:00 Sputum, Expectorated/Coughed Respiratory Culture - Final Presumptive C albicans 11/29/22 09:55 Blood Culture (Wb) - Anticubital Right Blood Culture - Final No growth in 5 days. 11/29/22 10:10 Blood Culture (Wb) - Anticubital Left Blood Culture - Final No growth in 5 days. 11/29/22 08:50 Mucosa - Nasopharyngeal Respiratory Panel (PCR) - Final 11/29/22 10:40 Urine, Random Legionella Antigen - Final 11/29/22 10:40 Urine, Random Streptococcus pneumoniae Antigen (M - Final 11/28/22 00:06 Nasal Secretion SARS-CoV-2 Antigen (Rapid) - Final Radiography Diagnostic Testing: Radiology Impression Vessel Mapping-Hemodialysis Access 12/09/22 09:18 Interpretation Summary Superficial thrombophlebitis right mid bicep to mid forearm and left distal bicep secondary to IV access noted within each vessel Normal diameter and flow bilateral upper arm basilic veins Normal bilateral radial and brachial artery flow Thrombophlebitis in bilateral cephalic veins will preclude utilization for arteriovenous fistula creation Ordering Physician: Maria Guadalupe Townsend Referring Physician: Cesar Keenan Performed By: Courtney Muhammad RVT ??? Physical Exam Narrative Alert, awake oriented x3 Pallor No JVD S1-S2 Bilateral air entry Abdomen is soft 1+ edema. Const alert, oriented x3, no apparent distress and average body habitus General Appearance: well developed Orientation / Consciousness: oriented to person, oriented to place and oriented to time HEENT normocephalic Eyes PERRL Neck no lymphadenopathy Resp no use of accessory muscles Resp Narrative: Diminished breath sounds with scattered crackles Auscultation: crackles right and left Cardio regular rate and no rub GI non-tender Auscultation: normoactive bowel sounds Palpation: soft Skin General Skin Exam: ecchymosis Neuro Sensorium / Orientation: awake and alert Psych cooperative Assessment & Plan Assessment/Plan (1) Acute kidney injury: (2) 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 1 diabetes mellitus: PLAN: - History of CKD stage IV with underlying GFR ~20ml/min. Patient admitted non-STEMI, DKA and hypertensive emergency. Appreciate surgery placing non- tunneled temporary HD catheter 12/02. Patient underwent 1st hemodialysis 12/02. -s/P tunneled HD catheter placement - patient will need outpatient dialysis arrangements at [facility], Dx: ENMANUEL on CKD stage 4. vein mapping. -Acute respiratory failure multifactorial from decompensated heart failure, underlying valvular heart disease/aortic stenosis and possible pneumonia along with COPD. Currently on antibiotics and receiving breathing treatments. Elevated WBC possibly from steroid injection pre-hospital. Blood cultures from 11/29 & 12/02 no growth. Thoracentesis fluid no growth. no fevers - NSTEMI; cardiology following. s/p cardiac cath - CT chest showed b/l pleural effusions and underwent thoracentesis with 650ml fluid removed. Chest x-ray after thoracentesis showed resolution of left-sided pleural effusion.
[2022-12-11 15:35] LABS: Pathologist Review Reviewed
--- NOTE | 2022-12-11 15:55 | CASEMGMT ---
NADEEM VINCENT NOTE: Adrienne @ [facility] made aware plan is for SNF now and [facility] referral cx'abi. Chance JUNG RN CM
--- NOTE | 2022-12-11 15:57 | CASEMGMT ---
SW met with patient's and daughter. Patient was sleeping. SW introduced self and role at [facility]. Patient's daughter and both expressed concerns with patient returning home right away. SW listened to their concerns and provided emotional support. SW did provide them with a list of group home facility providers including quality and resource use data and consistent with patient?s preferred geographic region, medical needs, and insurance network were provided from the [employer] Guide. SW explained Medicare coverage for SNF. SW also let both know that patient will have to be transported back and forth to dialysis due to being Acute and not chronic. Their choices were [facility] and then [facility]. SW let them know SW will work on the referral. They were both concerned about patient being in agreement and would appreciate if SW could talk with patient. SW let them know SW will stop by tomorrow and talk with patient. SW asked Melyssa to please make a referral to [facility]. Felisha Rodríguez CASTING OPERATOR HELPER [employer]OL[employer]
--- NOTE | 2022-12-11 16:11 | CASEMGMT ---
Discharge Planning Referral sent to [facility] via [facility]. Melyssa Michaud, Discharge Planning Asst.
[2022-12-11 16:58] LABS: Bedside Glucose 209 mg/dL (74-106)
--- NOTE | 2022-12-11 18:57 | NURSING ---
Reviewed charting with Dania Junior RN
[2022-12-11] MEDS: Atorvastatin Calcium 40 MG Tablet PO (20:53)
[2022-12-11 21:17] LABS: Bedside Glucose 303 mg/dL (74-106)
[2022-12-12] VITALS (17 sets, daily range): BP systolic 78–199; BP diastolic 44–89; PULSE 69–79; RESP 12–20; TEMP 36.3–37; O2SAT 88–100; BMI 23.6; BMI 22.6
[2022-12-12 05:59] LABS: Hematocrit 23.7 % (40-54); Hemoglobin 7.5 g/dL (13.0-16.5); Mean Corp Hgb Conc 31.6 g/dL (32-36); Mean Corpuscular Hgb 29.6 pg (27.0-32.0); Mean Corpuscular Volume 93.7 fL (80-94); Mean Platelet Vol. 11.6 fl (6.2-12.0); POSITIVE COUNT YES; POSITIVE DIFFERENTIAL YES; POSITIVE MORPHOLOGY YES; Platelet Count 277 K/mm3 (150-450); RBC Distribution Width CV 14.8 % (11.6-14.6); RBC Distribution Width SD 49.8 fl (35.1-43.9); Red Blood Count 2.53 M/mm3 (4.6-6.2); White Blood Count 22.1 K/mm3 (4.4-11.0)
[2022-12-12 06:00] LABS: Differential Indicated MANUAL DIFF
[2022-12-12 06:36] LABS: Eosinophil 16 % (0-5); Lymphocyte 10 % (19-41); Metamyelocyte 3 % (0-1); Monocyte 4 % (0-10); Myelocyte 2 % (0-0); Neutrophil-Band 2 % (0-5); Neutrophil-Segmented 63 % (47-70); Platelet Estimate ADEQUATE (ADEQ); Red Cell Morphology NORM C+C NORMAL (NORM C&C); Total Cells Counted 100 (MANUAL DIFF)
[2022-12-12 06:37] LABS: Absolute Lymphocyte Count 2.21 X10^3/uL (0.83-4.51); Absolute Neutrophil Count 14.4 X10^3/uL (2.0-7.7); Lymphocyte # 2.21 X10^3/ul (0.83-4.51); Neutrophil # 14.37 X10^3/uL (2.7-7.7)
[2022-12-12 06:38] LABS: Anion Gap 6 (5-15); BUN 70 mg/dL (7-18); BUN/Creat Ratio 19.4 RATIO (10-20); Calcium,Total 8.2 mg/dL (8.5-10.1); Chloride 108 mmol/L (98-107); EST Glomerular Filtration Rate 18 mL/min (>60); Est Glom Filt Rate - Afr Amer 21 mL/min (>60); Estimated Creatinine Clearance 15.56 ml/min; Glucose 223 mg/dL (74-106); Potassium 4.5 mmol/L (3.5-5.1); Sodium Level 137 mmol/L (136-145)
[2022-12-12 06:49] LABS: Bedside Glucose 239 mg/dL (74-106)
[2022-12-12] MEDS: Ipratropium/Albuterol Sulfate 3 ML AMPUL.NEB INHALATION ×3 (07:13→19:18)
--- NOTE | 2022-12-12 07:54 | PN.HOSP_ITS ---
Reason for Visit Reason for Visit: Diagnoses Sepsis, unspecified organism (11/28/22) Anemia in chronic kidney disease (11/28/22) Anemia, unspecified (11/28/22) Other elevated white blood cell count (11/28/22) Elevated white blood cell count, unspecified (11/28/22) Type 1 diabetes mellitus with ketoacidosis without coma (11/28/22) Type 1 diabetes mellitus with diabetic chronic kidney disease (11/28/22) Type 1 diabetes mellitus with hyperglycemia (11/28/22) Hypo-osmolality and hyponatremia (11/28/22) Hyperkalemia (11/28/22) Non-ST elevation (NSTEMI) myocardial infarction (11/28/22) Nonrheumatic aortic (valve) stenosis (11/28/22) Unspecified systolic (congestive) heart failure (11/28/22) Pneumonia, unspecified organism (11/28/22) Acute respiratory failure with hypoxia (11/28/22) Acute kidney failure, unspecified (11/28/22) Chronic kidney disease, stage 4 (severe) (11/28/22) End stage renal disease (11/28/22) Dyspnea, unspecified (11/28/22) Localized edema (11/28/22) Severe sepsis without septic shock (11/28/22) Other specified abnormalities of plasma proteins (11/28/22) Dependence on renal dialysis (11/28/22) Subjective Subjective Had some recurrent epistaxis yesterday. Objective Data Objective Data Vital Signs: Vital Signs Temp Pulse Resp BP Pulse Ox O2 Del Method O2 Flow Rate 36.7 C 73 18 128/89 H 98 Nasal Cannula 3 12/12/22 03:00 12/12/22 03:00 12/12/22 03:00 12/12/22 03:00 12/12/22 03:00 12/12/22 03:59 12/12/22 03:59 FiO2 4 12/11/22 21:23 Oxygen Flow Rate (L/min) [5] 2 Oxygen Flow Rate (L/min) [4] 2 Oxygen Flow Rate (L/min) [2] 2 Oxygen Flow Rate (L/min) [1 ( 2 Initial Baseline)] Oxygen Flow Rate (L/min) 3 Oxygen Delivery Method [5] Nasal Cannula Oxygen Delivery Method [4] Nasal Cannula Oxygen Delivery Method [3] Room Air Oxygen Delivery Method [2] Nasal Cannula Oxygen Delivery Method [1 ( Nasal Cannula Initial Baseline)] Oxygen Delivery Method Nasal Cannula Weight: 68.22 kg Body Mass Index (BMI) 23.6 Intake & Output: Intake and Output for Last 24 Hours 12/10/22 12/11/22 12/12/22 23:59 23:59 23:59 Intake Total 740 / 740 1051.75 / 1051.75 Output Total 5950 / 5950 6700 / 6700 Balance -5210 / -5210 -5648.25 / -5648.25 Lab / Micro Data 12/12/22 05:20 12/12/22 05:20 Labs: Laboratory Results - last 24 hr 12/11/22 05:03: Diff Path Review Reviewed 12/11/22 07:38: POC Glucose 306 H 12/11/22 11:07: POC Glucose 247 H 12/11/22 16:29: POC Glucose 209 H 12/11/22 20:49: POC Glucose 303 H 12/12/22 05:20: WBC 22.1 H, RBC 2.53 L, Hgb 7.5 L, Hct 23.7 L, MCV 93.7, MCH 29.6, MCHC 31.6 L, RDW Std Deviation 49.8 H, RDW Coeff of Russell 14.8 H, Plt Count 277, MPV 11.6, Neut % (Auto) Not Reportable, Absolute Neuts (auto) 14.4 H, Absolute Lymphs (auto) 2.21, Total Counted 100, Neutrophils % (Manual) 63, Band Neutrophils % 2, Lymphocytes % (Manual) 10 L, Monocytes % (Manual) 4, Eosinophils % (Manual) 16 H, Metamyelocytes % 3 H, Myelocytes % 2 H, Diff Path Review May foll, Platelet Estimate ADEQUATE, RBC Morphology NORM C+C, Sodium 137, Potassium 4.5, Chloride 108 H, Carbon Dioxide 23.0, Anion Gap 6, BUN 70 H, Creatinine 3.60 H, Estim Creat Clear Calc 15.56, Est GFR (MDRD) Af Amer 21 L, E st GFR (MDRD) Non-Af 18 L, BUN/Creatinine Ratio 19.4, Glucose 223 H, Calcium 8.2 L 12/12/22 06:20: POC Glucose 239 H Micro: Microbiology 12/04/22 13:55 Fluid - Thoracentesis Fluid Gram Stain - Final 12/04/22 13:55 Fluid - Thoracentesis Fluid Body Fluid Culture - Final Culture exhibits no growth. 12/04/22 13:55 Fluid - Thoracentesis Fluid Anaerobic Culture - Final No growth in 5 days. 12/02/22 12:06 Blood Culture (Wb) - Anticubital Right Blood Culture - Final No growth in 5 days. 12/02/22 12:00 Blood Culture (Wb) - Right Hand Blood Culture - Final No growth in 5 days. 12/04/22 17:00 Sputum, Expectorated/Coughed Gram Stain - Final 12/04/22 17:00 Sputum, Expectorated/Coughed Respiratory Culture - Final Presumptive C albicans 11/29/22 09:55 Blood Culture (Wb) - Anticubital Right Blood Culture - Final No growth in 5 days. 11/29/22 10:10 Blood Culture (Wb) - Anticubital Left Blood Culture - Final No growth in 5 days. 11/29/22 08:50 Mucosa - Nasopharyngeal Respiratory Panel (PCR) - Final 11/29/22 10:40 Urine, Random Legionella Antigen - Final 11/29/22 10:40 Urine, Random Streptococcus pneumoniae Antigen (M - Final 11/28/22 00:06 Nasal Secretion SARS-CoV-2 Antigen (Rapid) - Final Physical Exam Const alert and no apparent distress Resp normal respiratory effort, no retractions, no use of accessory muscles and clear to auscultation bilaterally Cardio regular rate, regular rhythm, S1 normal heart sound and S2 normal heart sound GI normal to inspection, nondistended, normoactive bowel sounds, soft to palpation, non-tender and non-distended Extremity normal to inspection Assessment & Plan Assessment/Plan (1) Acute respiratory failure with hypoxia: PLAN: POA: 83% on 4 liters. Tachypneic at 24 BPM. 2/2 CHF and pneumonia Wean oxygen as tolerated (2) Acute kidney injury: PLAN: ENMANUEL on CKD IV On hemodialysis. Had temporary HD catheter placed on 12/02, transitioned to tunnelled HD catheter placed on 12/09. Management as per nephrology. (3) NSTEMI, initial episode of care: PLAN: Troponins peaked at 36,516. On aspirin and atorvastatin. Plavix on hold. Cardiology following Stress test on 12/11 that was negative Suspected type II event (4) DKA (diabetic ketoacidoses): QUALIFIERS: Diabetes mellitus complication detail: without coma Diabetes mellitus type: type 1 Qualified Code(s): E10.10 - Type 1 diabetes mellitus with ketoacidosis without coma PLAN: Is a known DM1 with A1c of 9.2 from 11/29/2022. Present on admission Anion gap closed and DKA resolved. Now on Lantus. Insulin sliding scale. Accu-Cheks ACHS. (5) Pneumonia: QUALIFIERS: Laterality: right Lung location: unspecified part of lung Pneumonia type: due to unspecified organism Qualified Code(s): J18.9 - Pneumonia, unspecified organism PLAN: Cx negative Completed 7 days of meropenem Currently off abx ID following. (6) Anemia: QUALIFIERS: Anemia type: due to chronic kidney disease Chronic kidney disease stage: on chronic dialysis Qualified Code(s): N18.6 - End stage renal disease; D63.1 - Anemia in chronic kidney disease; Z99.2 - Dependence on renal dialysis PLAN: Anemia of chronic disease Stable monitor (7) HFrEF (heart failure with reduced ejection fraction): PLAN: EF 40-45% No diuretics/JOON-i/ARB given ENMANUEL (8) Hyponatremia: PLAN: Resolved Suspect due to volume overload. (9) Edema of left upper arm: PLAN: Left upper extremity swelling. Improved. Duplex of the left upper e xtremity was negative for deep blood clot. (10) Leukocytosis: QUALIFIERS: Leukocytosis type: unspecified Qualified Code(s): D72.829 - Elevated white blood cell count, unspecified PLAN: persistently elevated unclear significance continue to monitor PLAN: Plan Chronic conditions: * Hypertension:. On amlodipine and metoprolol. * Depression: This was thought to be due to the fact that he was in the hospital. Currently on low-dose sertraline. * BPH: On finasteride * NIKHIL: On BiPAP nightly * Hyperlipidemia: On statin DVT prophylaxis: On heparin subcu Disposition: plan for SNF pending selection and insurance approval. Charges/Coding Visit Charges Inpatient E&M: 16952 Subs Hosp L2
[2022-12-12] MEDS: 0.9% Saline Lock 10 ML Syringe IV (08:07)
[2022-12-12] MEDS: 0.9% Normal Saline 1,000 ML IV.SOLN. 1000 ML OPERA.SITE (08:07)
[2022-12-12] MEDS: PureFlow B 2K Dialysis Soln 1 BAG 6 BAG PF (08:07)
--- NOTE | 2022-12-12 09:49 | PCM.PN.REN ---
Subjective Subjective Seen during dialysis. at bedside. No complaints. Objective Data Objective Data Vital Signs: Vital Signs Temp Pulse Resp BP Pulse Ox O2 Del Method O2 Flow Rate 97.3 F L 72 12 138/50 H 96 Nasal Cannula 3 12/12/22 07:35 12/12/22 09:29 12/12/22 09:29 12/12/22 09:29 12/12/22 09:29 12/12/22 09:29 12/12/22 09:29 FiO2 4 12/11/22 21:23 Oxygen Flow Rate (L/min) [5] 2 Oxygen Flow Rate (L/min) [4] 2 Oxygen Flow Rate (L/min) [2] 2 Oxygen Flow Rate (L/min) [1 ( 2 Initial Baseline)] Oxygen Flow Rate (L/min) 3 Oxygen Delivery Method [5] Nasal Cannula Oxygen Delivery Method [4] Nasal Cannula Oxygen Delivery Method [3] Room Air Oxygen Delivery Method [2] Nasal Cannula Oxygen Delivery Method [1 ( Nasal Cannula Initial Baseline)] Oxygen Delivery Method Nasal Cannula Weight: 68.2 kg Body Mass Index (BMI) 23.6 Intake & Output: Intake and Output for Last 24 Hours 12/10/22 12/11/22 12/12/22 23:59 23:59 23:59 Intake Total 740 / 740 1051.75 / 1051.75 Output Total 5950 / 5950 6700 / 6700 Balance -5210 / -5210 -5648.25 / -5648.25 Lab / Micro Data 12/12/22 05:20 12/12/22 05:20 Labs: Laboratory Results - last 24 hr 12/11/22 05:03: Diff Path Review Reviewed 12/11/22 11:07: POC Glucose 247 H 12/11/22 16:29: POC Glucose 209 H 12/11/22 20:49: POC Glucose 303 H 12/12/22 05:20: WBC 22.1 H, RBC 2.53 L, Hgb 7.5 L, Hct 23.7 L, MCV 93.7, MCH 29.6, MCHC 31.6 L, RDW Std Deviation 49.8 H, RDW Coeff of Russell 14.8 H, Plt Count 277, MPV 11.6, Neut % (Auto) Not Reportable, Absolute Neuts (auto) 14.4 H, Absolute Lymphs (auto) 2.21, Total Counted 100, Neutrophils % (Manual) 63, Band Neutrophils % 2, Lymphocytes % (Manual) 10 L, Monocytes % (Manual) 4, Eosinophils % (Manual) 16 H, Metamyelocytes % 3 H, Myelocytes % 2 H, Diff Path Review May , Platelet Estimate ADEQUATE, RBC Morphology NORM C+C, Sodium 137, Potassium 4.5, Chloride 108 H, Carbon Dioxide 23.0, Anion Gap 6, BUN 70 H, Creatinine 3.60 H, Estim Creat Clear Calc 15.56, Est GFR (MDRD) Af Amer 21 L, Est GFR (MDRD) Non-Af 18 L, BUN/Creatinine Ratio 19.4, Glucose 223 H, Calcium 8.2 L 12/12/22 06:20: POC Glucose 239 H Micro: Microbiology 12/04/22 13:55 Fluid - Thoracentesis Fluid Gram Stain - Final 12/04/22 13:55 Fluid - Thoracentesis Fluid Body Fluid Culture - Final Culture exhibits no growth. 12/04/22 13:55 Fluid - Thoracentesis Fluid Anaerobic Culture - Final No growth in 5 days. 12/02/22 12:06 Blood Culture (Wb) - Anticubital Right Blood Culture - Final No growth in 5 days. 12/02/22 12:00 Blood Culture (Wb) - Right Hand Blood Culture - Final No growth in 5 days. 12/04/22 17:00 Sputum, Expectorated/Coughed Gram Stain - Final 12/04/22 17:00 Sputum, Expectorated/Coughed Respiratory Culture - Final Presumptive C albicans 11/29/22 09:55 Blood Culture (Wb) - Anticubital Right Blood Culture - Final No growth in 5 days. 11/29/22 10:10 Blood Culture (Wb) - Anticubital Left Blood Culture - Final No growth in 5 days. 11/29/22 08:50 Mucosa - Nasopharyngeal Respiratory Panel (PCR) - Final 11/29/22 10:40 Urine, Random Legionella Antigen - Final 11/29/22 10:40 Urine, Random Streptococcus pneumoniae Antigen (M - Final 11/28/22 00:06 Nasal Secretion SARS-CoV-2 Antigen (Rapid) - Final Physical Exam Narrative Alert oriented x3, no apparent distress S1, S2, RRR Diminished breath sounds posterior bases. On O2 nasal cannula. Abdomen soft, nontender Trace edema bilateral legs Right tunneled HD catheter dressing clean, dry and intact Assessment & Plan Assessment/Plan (1) Acute kidney injury: (2) 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 1 diabetes mellitus: PLAN: - History of CKD stage IV with underlying GFR ~20ml/min. Patient admitted non-STEMI, DKA and hypertensive emergency. Patient underwent 1st hemodialysis 12/02/2022. -s/P tunneled HD catheter placement 12/09. -Acute respiratory failure multifactorial from decompensated heart failure, underlying valvular heart disease/aortic stenosis and possible pneumonia along with COPD. Currently on antibiotics and receiving breathing treatments. Elevated WBC possibly from steroid injection pre-hospital. Blood cultures from 11/29 & 12/02 no growth. Thoracentesis fluid no growth. no fevers - NSTEMI; cardiology following. Had nuclear stress test: no evidence of significant ischemia or infarction, estimated EF 52%. - poor oral intake, patient does not need renal diet restrictions at this time. Reviewed with /patient. Continue nepro - CT chest showed b/l pleural effusions and underwent thoracentesis with 650ml fluid removed. Chest x-ray after thoracentesis showed resolution of left-sided pleural effusion. - discharge planning in progress to ECF for therapy. Outpatient HD arranged at [facility] MWF, Dx: ENMANUEL on CKD. OK for discharge per renal standpoint when cleared by primary team.
[2022-12-12] MEDS: Insulin Lispro 100 UNIT/ML INSULN.PEN SC ×2 (12:42→16:57)
[2022-12-12] MEDS: Insulin Glargine-YFGN 100 UNIT/ML Pen 15 UNIT SC (12:43)
[2022-12-12] MEDS: Finasteride 5 MG Tablet PO (12:44)
[2022-12-12] MEDS: Sertraline 50 MG Tablet PO (12:44)
[2022-12-12] MEDS: Magnesium Chloride 64 MG Delay Rel.Tablet 128 MG PO (12:44)
[2022-12-12] MEDS: amLODIPine 5 MG Tablet PO (12:44)
[2022-12-12] MEDS: Cholecalciferol (Vit D3) 125 MCG CAPSULE (5,000 UNITS) PO (12:44)
[2022-12-12] MEDS: Pantoprazole Sodium 40 MG Tablet PO (12:44)
[2022-12-12] MEDS: Metoprolol Tartrate 25 MG Tablet 12.5 MG PO (12:45)
[2022-12-12] MEDS: Aspirin E.C. 81 MG Tablet PO (12:45)
[2022-12-12] MEDS: Docusate Sodium 100 MG Capsule 200 MG PO (12:45)
[2022-12-12] MEDS: Fluconazole 100 MG Tablet PO (12:45)
[2022-12-12] MEDS: Multivitamin (Healthy Eyes) Capsule 1 CAP PO (12:45)
[2022-12-12] MEDS: Multivitamins,Therapeutic Tablet 1 TABLET PO (12:46)
[2022-12-12] MEDS: Folic Acid 1 MG Tablet 0.5 MG PO ×2 (12:46→17:00)
[2022-12-12] MEDS: Ferrous Sulfate 325 MG Tablet PO (12:46)
[2022-12-12] MEDS: Calcium Carbonate 500 MG Tablet PO (12:59)
[2022-12-12] MEDS: Gabapentin 100 MG Capsule 200 MG PO ×2 (12:59→17:04)
[2022-12-12 13:42] LABS: Bedside Glucose 239 mg/dL (74-106)
--- NOTE | 2022-12-12 14:25 | PCM.PN.ID ---
Physical Exam Narrative Feeling better, still some cough and dyspnea. No fever Const alert and no apparent distress General Appearance: cooperative Resp normal air movement and clear to auscultation bilaterally Cardio regular rate and regular rhythm GI soft to palpation, non-tender and non-distended Skin no rashes or lesions noted ID ID: Route of nutrition/ use of supplements: [] Nutritional Intake: [] IV Site: [] [place] Catheter: [] Assessment & Plan Assessment/Plan (1) Acute kidney injury: (2) Acute respiratory failure with hypoxia: (3) Pneumonia: QUALIFIERS: Pneumonia type: due to unspecified organism Laterality: right Lung location: unspecified part of lung Qualified Code(s): J18.9 - Pneumonia, unspecified organism PLAN: Repeat bcx neg. Sputum with 3+ yeast, on fluc. Thoracentesis done, fluid cx neg so far. Wbc much better today, will stop fluc. Will follow as needed, thank you
--- NOTE | 2022-12-12 14:31 | CASEMGMT ---
[facility] has accepted patient. GONZALES notified physician. GONZALES had attempted several times to go to patient's room to talk with patient and his . However, they have had company and patient's asked GONZALES to come back later. SW still needs to talk with patient about [facility] and let them know patient will go today. Felisha Rodríguez HAMPER MAKER RANDOLPH
--- NOTE | 2022-12-12 14:41 | TREXTCAR_ITS ---
Diet Diet Order/Speech Therapy: 12/12/22 09:49 Diet: Regular - General Dietary Modifications:: Phosphorus Restricted Potassium Restricted Sodium Restricted Type of Dietary Supplement:: Nepro Is pt able to select menu?: Yes Diet Comments: Nepro 1x daily with breakfast Routine Orders/Code Status Code Status: Full Code Wound(s) lt back: Wound Type: Puncture rt neck post diaalysis cath: Wound Type: Surgical Incision sacrum: Wound Type: Pressure Injury Dressing Change: Mepilex intact Problem/Diagnosis (1) Acute kidney injury: Status: Acute Code(s): N17.9 - Acute kidney failure, unspecified Plan: ENMANUEL on CKD IV On hemodialysis. Had temporary HD catheter placed on 12/02, transitioned to tunnelled HD catheter placed on 12/09. Management as per nephrology. (2) Acute respiratory failure with hypoxia: Status: Acute Code(s): J96.01 - Acute respiratory failure with hypoxia Plan: POA: 83% on 4 liters. Tachypneic at 24 BPM. 2/2 CHF and pneumonia Wean oxygen as tolerated (3) Pneumonia: Status: Acute Code(s): J18.9 - Pneumonia, unspecified organism Plan: Cx negative Completed 7 days of meropenem Currently off abx ID following. Plan Chronic conditions: * Hypertension:. On amlodipine and metoprolol. * Depression: This was thought to be due to the fact that he was in the hospital. Currently on low-dose sertraline. * BPH: On finasteride * NIKHIL: On BiPAP nightly * Hyperlipidemia: On statin DVT prophylaxis: On heparin subcu Disposition: plan for SNF pending selection and insurance approval. 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 continue Nepro 1x daily with breakfast. Follow-up with diet education as needed prior to d/c. Discharge Plan Admission Admit Date/Time: 11/28/22 23:48 Primary Reason for Your Visit: pneumonia. acute kidney injury. Attending Provider: Channing Plunkett Primary Care Provider: Cesar Keenan Consulting Providers: Mushtaq Schmidt; Stanley Kelly; Awais De; Benedict Cole; Leonard Vásquez; Jeffry Portillo; Juan Alberto Uribe; Yi Obregon BUSINESS LAW PROFESSOR; Kasie Wheat; Remi Lopez; Maria Guadalupe Townsend; Tracie Sanon; Tanel,Natthgabby; Elke Crum; Vibha Zapata; Bay Escudero; Artur Valera; Gudelia Major; César Gutiérrez; Shine Talbot; Demarco Valdes; Mushtaq Cordero; Pritesh Mcclain; Shine Gaffney; Corwin Duran; Brent Garcia; Madan Perez; Yesy Sin NP; Suztete Genao; Deisi Heredia Instructions Additional Instructions / Restrictions: Dialysis every Thursday, Thursday, Thursday with [facility]. Discharge Orders/Prescriptions Prescriptions: No Action aspirin [Adult Low Dose Aspirin] 81 mg tablet,delayed release (DR/EC) 81 mg PO QDAY finasteride [Proscar] 5 mg tablet 5 mg PO QDAY lisinopril 40 mg tablet 40 mg PO QDAY multivitamin tablet 1 tab PO QDAY gabapentin 300 mg capsule 300 mg PO TID Humalog KwikPen Insulin 200 unit/mL (3 mL) insulin pen See Rx Instructions SC TID Rx Instructions: sliding scale subcutaneously three times a day; sliding scale docusate sodium [Colace] 100 mg capsule 200 mg PO BID Vision Formula (O-V-G-Zn-geovnai) 14,320-226-200 fqat-bu-vtoh capsule 1 cap PO ONCE folic acid 400 mcg tablet 500 mcg PO BID rosuvastatin 20 mg tablet 20 mg PO DAILY (DME) FreeStyle Tani 2 Sensor Kit See Rx Instructions .Route Qty: 2 3RF Rx Instructions: As directed (DME) FreeStyle Tani 2 [place] Misc See Rx Instructions .Route Qty: 2 3RF Rx Instructions: As directed Lantus Solostar U-100 Insulin 100 unit/mL (3 mL) insulin pen 10 unit SC DAILY amlodipine 10 mg tablet 10 mg PO DAILY magnesium oxide 400 mg magnesium capsule 400 mg PO DAILY calcium citrate 200 mg (950 mg) tablet 200 mg PO DAILY furosemide 40 mg tablet 40 mg PO DAILY bisacodyl 5 mg tablet,delayed release (DR/EC) 5 mg PO ONCE cholecalciferol (vitamin D3) 125 mcg (5,000 unit) capsule 125 mcg PO DAILY cinnamon bark [Cinnamon] 500 mg capsule 1,000 mg PO DAILY ferrous sulfate 325 mg (65 mg iron) tablet 325 mg PO DAILY Qty: 90 1RF Referrals / Follow Up: Cesar Keenan MD [Primary Care Provider] - (3) Pneumonia Qualifiers: Pneumonia type: due to unspecified organism Laterality: right Lung location: unspecified part of lung Qualified Code(s): J18.9 - Pneumonia, unspecified organism
--- NOTE | 2022-12-12 14:41 | PCM.TXEXTCAR ---
Diet Diet Order/Speech Therapy: 12/12/22 09:49 Diet: Regular - General Dietary Modifications:: Phosphorus Restricted Potassium Restricted Sodium Restricted Type of Dietary Supplement:: Nepro Is pt able to select menu?: Yes Diet Comments: Nepro 1x daily with breakfast Routine Orders/Code Status Code Status: Full Code Wound(s) lt back: Wound Type: Puncture rt neck post diaalysis cath: Wound Type: Surgical Incision sacrum: Wound Type: Pressure Injury Dressing Change: Mepilex intact Problem/Diagnosis (1) Acute kidney injury: Status: Acute Code(s): N17.9 - Acute kidney failure, unspecified Plan: ENMANUEL on CKD IV On hemodialysis. Had temporary HD catheter placed on 12/02, transitioned to tunnelled HD catheter placed on 12/09. Management as per nephrology. (2) Acute respiratory failure with hypoxia: Status: Acute Code(s): J96.01 - Acute respiratory failure with hypoxia Plan: POA: 83% on 4 liters. Tachypneic at 24 BPM. 2/2 CHF and pneumonia Wean oxygen as tolerated (3) Pneumonia: Status: Acute Code(s): J18.9 - Pneumonia, unspecified organism Plan: Cx negative Completed 7 days of meropenem Currently off abx ID following. Plan Chronic conditions: Hypertension:. On amlodipine and metoprolol. Depression: This was thought to be due to the fact that he was in the hospital. Currently on low-dose sertraline. BPH: On finasteride NIKHIL: On BiPAP nightly Hyperlipidemia: On statin DVT prophylaxis: On heparin subcu Disposition: plan for SNF pending selection and insurance approval. 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 continue Nepro 1x daily with breakfast. Follow-up with diet education as needed prior to d/c. Discharge Plan Admission Admit Date/Time: 11/28/22 23:48 Primary Reason for Your Visit: pneumonia. acute kidney injury. Attending Provider: Channing Plunkett Primary Care Provider: Cesar Keenan Consulting Providers: Mushtaq Schmidt; Stanley Kelly; Awais De; Benedict Cole; Leonard Vásquez; Jeffry Portillo; Juan Alberto Uribe; Yi Obregon NP; Kasie Wheat; Remi Lopez; Maria Guadalupe Townsend; Tracie Sanon; Tanel,Natthgabby; Elke Crum; Vibha Zapata; Bay Escudero; Artur Valera; Gudelia Major; César Gutiérrez; Shine Talbot; Demarco Valdes; Mushtaq Cordero; Pritesh Mcclain; Shine Gaffney; Corwin Duran; Brent Garcia; Madan Perez; Yesy Sin NP; Suzette Genao; Deisi Heredia Instructions Additional Instructions / Restrictions: Dialysis every Thursday, Thursday, Thursday with [facility]. Discharge Orders/Prescriptions Prescriptions: New acetaminophen 325 mg Tablet 650 mg PO Q4H PRN PRN (Reason: Fever, pain -01/20) Qty: 0 0RF amlodipine 5 mg Tablet 5 mg PO DAILY Qty: 0 0RF pantoprazole 40 mg Tablet,Delayed Release (Dr/Ec) 40 mg PO BID Qty: 30 0RF gabapentin 100 mg Capsule 100 mg PO TIDCM Qty: 0 0RF sertraline 50 mg Tablet 50 mg PO DAILY Qty: 0 0RF insulin lispro [Humalog KwikPen Insulin] 100 unit/mL Insulin Pen 10 unit subcut TIDAC Qty: 0 0RF insulin lispro [Humalog KwikPen Insulin] 100 unit/mL Insulin Pen See Protocol subcut ACHS Qty: 0 0RF Protocol: 4. Sliding Scale Insulin High-Med Dosing Condition: 150-199 mg/dl = 2 units Condition: 200-259 mg/dl = 4 units Condition: 260-324 mg/dl = 6 units Condition: 325-374 mg/dl = 8 units Condition: 375-409 mg/dl = 10 units Condition: 410-449 mg/dl = 11 units Condition: Greater than 449 call physician Protocol Text: - Use for Total Daily Dose of Insulin 56-80 units - Patient who are insulin resistant or septic HIGH MEDIUM DOSING ALGORITHM Deep Sea Nasal 0.65 % Aerosol,[place] 2 spray NASAL TID PRN PRN (Reason: NASAL DRYNESS) Qty: 0 0RF metoprolol tartrate 25 mg Tablet 12.5 mg PO BID Qty: 0 0RF Pureflow B 2k Dialysis Soln 6 bag perfusion UD Qty: 0 0RF Continued aspirin [Adult Low Dose Aspirin] 81 mg tablet,delayed release (DR/EC) 81 mg PO QDAY finasteride [Proscar] 5 mg tablet 5 mg PO QDAY multivitamin tablet 1 tab PO QDAY docusate sodium [Colace] 100 mg capsule 200 mg PO BID Vision Formula (P-V-B-Zn-geovani) [id number] oazt-uu-okas capsule 1 cap PO ONCE folic acid 400 mcg tablet 500 mcg PO BID rosuvastatin 20 mg tablet 20 mg PO DAILY (DME) FreeStyle Tani 2 Sensor Kit See Rx Instructions .Route Qty: 2 3RF Rx Instructions: As directed (DME) FreeStyle Tani 2 [place] Misc See Rx Instructions .Route Qty: 2 3RF Rx Instructions: As directed magnesium oxide 400 mg magnesium capsule 400 mg PO DAILY calcium citrate 200 mg (950 mg) tablet 200 mg PO DAILY bisacodyl 5 mg tablet,delayed release (DR/EC) 5 mg PO ONCE cholecalciferol (vitamin D3) 125 mcg (5,000 unit) capsule 125 mcg PO DAILY ferrous sulfate 325 mg (65 mg iron) tablet 325 mg PO DAILY Qty: 90 1RF Changed insulin glargine [Lantus Solostar U-100 Insulin] 100 unit/mL (3 mL) insulin pen 12 unit SC BIDCM Qty: 15 0RF Discontinued lisinopril 40 mg tablet 40 mg PO QDAY gabapentin 300 mg capsule 300 mg PO TID Humalog KwikPen Insulin 200 unit/mL (3 mL) insulin pen See Rx Instructions SC TID Rx Instructions: sliding scale subcutaneously three times a day; sliding scale amlodipine 10 mg tablet 10 mg PO DAILY furosemide 40 mg tablet 40 mg PO DAILY cinnamon bark [Cinnamon] 500 mg capsule 1,000 mg PO DAILY Referrals / Follow Up: [facility] [Provider Group] - Within 1 Month [facility] [Provider Group] - 06/23/23 8:15 am [facility] [Provider Group] - 12/18/22 8:45 am Cesar Keenan MD [Primary Care Provider] - Within 2 Weeks Disposition Disposition (needs filled in before D/C Order can be placed): Shelter Facility (3) Pneumonia Qualifiers: Pneumonia type: due to unspecified organism Laterality: right Lung location: unspecified part of lung Qualified Code(s): J18.9 - Pneumonia, unspecified organism
--- NOTE | 2022-12-12 14:53 | DS.PCM_ITS ---
Providers Date of Admission: 11/28/22 Primary Care Physician: Dr. Cesar Keenan MD Consultations 11/29/22 04:53 Consult: Cardiology Routine Consulting Provider: Awais De Reason for Consult: nstemi EMERGENT Consult: No Notified: Yes Date Notified: 11/29/22 Time Notified: 04:54 Method of Notification: Verbal Method of Consult:: In-Person 11/29/22 06:27 Consult: Pickle Processor / Pulmonary Medicine Routine Consulting Provider: [facility] Reason for Consult: Acute hypoxemic respiratory failure EMERGENT Consult: No Notified: Yes Date Notified: 11/29/22 Time Notified: 06:27 Method of Notification: Verbal 11/29/22 14:22 Consult: Nephrology Routine Consulting Provider: [facility] Reason for Consult: creat 3.51 bun 62 need clearance for cardiac cath EMERGENT Consult: No Notified: Yes Date Notified: 11/29/22 Time Notified: 14:22 Method of Notification: Answering Service 12/02/22 10:14 Consult: General Surgery Routine Consulting Provider: César Gutiérrez Reason for Consult: line placement EMERGENT Consult: No Notified: Yes Date Notified: 12/02/22 Time Notified: 10:15 Method of Notification: Verbal 12/04/22 06:13 Consult: Infectious Disease Routine Consulting Provider: Shine Talbot Reason for Consult: Pneumonia, worsening leukocytosis EMERGENT Consult: No Notified: Yes Date Notified: 12/04/22 Time Notified: 07:02 Method of Notification: Answering Service 12/07/22 07:43 Consult: Oncology/Hematology Routine Consulting Provider: [facility] Reason for Consult: Persistent leukocytosis, sources evaluated/on abx/oral diflucan EMERGENT Consult: No Notified: Yes Date Notified: 12/07/22 Time Notified: 08:08 Method of Notification: cnc wood lathe operator 12/09/22 13:17 Consult: Onc/Wound/general accounting clerk Routine Comment: Reason for Consult:: deep tissue injury sacrum Reason For Visit: PNEUMONIA Diagnosis Discharge Diagnosis (1) Acute kidney injury: Status: Acute Code(s): N17.9 - Acute kidney failure, unspecified Plan: ENMANUEL on CKD IV On hemodialysis. Had temporary HD catheter placed on 12/02, transitioned to tunnelled HD catheter placed on 12/09. Management as per nephrology. HD QMWF (2) Acute respiratory failure with hypoxia: Status: Acute Code(s): J96.01 - Acute respiratory failure with hypoxia Plan: POA: 83% on 4 liters. Tachypneic at 24 BPM. 2/2 CHF and pneumonia Wean oxygen as tolerated (3) Pneumonia: Status: Acute Code(s): J18.9 - Pneumonia, unspecified organism Qualifiers: Pneumonia type: due to unspecified organism Laterality: right Lung location: unspecified part of lung Qualified Code(s): J18.9 - Pneumonia, unspecified organism Plan: Cx negative Completed 7 days of meropenem Currently off abx ID following. Plan Chronic conditions: * Hypertension:. On amlodipine and metoprolol. * Depression: This was thought to be due to the fact that he was in the hospital. Currently on low-dose sertraline. * BPH: On finasteride * NIKHIL: On BiPAP nightly * Hyperlipidemia: On statin DVT prophylaxis: On heparin subcu Disposition: to SNF today. DW family today. Medications at Discharge Home Medications aspirin 81 mg tablet,delayed release (Adult Low Dose Aspirin) 81 mg PO QDAY 06/15/17 finasteride 5 mg tablet (Proscar) 5 mg PO QDAY 06/16/17 multivitamin 1 tab PO QDAY 06/16/17 ferrous sulfate 325 mg (65 mg iron) tablet 325 mg PO DAILY #90 tabs 12/30/21 flash glucose scanning reader (FreeStyle Tani 2 [place]) #2 ea 03/28/22 flash glucose sensor (FreeStyle Tani 2 Sensor kit) #2 ea 03/28/22 rosuvastatin 20 mg tablet 20 mg PO DAILY 04/24/22 docusate sodium 100 mg capsule (Colace) 200 mg PO BID 04/30/22 magnesium oxide 400 mg PO DAILY 04/30/22 vitamins A,C,J-olhv-vsmczk 4,296 mcg-226 mg-90 mg capsule (Vision Formula (vits E-O-X-zinc-copper)) 1 cap PO ONCE 04/30/22 bisacodyl 5 mg tablet,delayed release 5 mg PO ONCE 05/05/22 calcium citrate 200 mg (950 mg) tablet 200 mg PO DAILY 05/05/22 cholecalciferol (vitamin D3) 125 mcg (5,000 unit) capsule 125 mcg PO DAILY 05/05/22 folic acid 400 mcg tablet 500 mcg PO BID 06/27/22 PureFlow B 2K Dialysis Soln 6 bag perfusion UD ##0 12/12/22 acetaminophen 325 mg tablet 650 mg (2 x 325 mg) PO Q4H PRN PRN Fever, pain 1- 01/20 #0 tabs 12/12/22 amlodipine 5 mg tablet 5 mg PO DAILY #0 tabs 12/12/22 gabapentin 100 mg capsule 100 mg PO TIDCM #0 caps 12/12/22 insulin glargine 100 unit/mL (3 mL) subcutaneous pen (Lantus Solostar U-100 Insulin) 12 unit (0.12 mL) subcut BIDCM #15 mL 12/12/22 insulin lispro 100 unit/mL subcutaneous pen (Humalog KwikPen (U-100) Insulin) 10 unit (0.1 mL) subcut TIDAC #0 mL 12/12/22 insulin lispro 100 unit/mL subcutaneous pen (Humalog KwikPen (U-100) Insulin) See Protocol subcut ACHS #0 mL 12/12/22 metoprolol tartrate 25 mg tablet 12.5 mg (1/2 x 25 mg) PO BID #0 tabs 12/12/22 pantoprazole 40 mg tablet,delayed release 40 mg PO BID #30 tabs 12/12/22 sertraline 50 mg tablet 50 mg PO DAILY #0 tabs 12/12/22 sodium chloride 0.65 % nasal spray aerosol (Deep Sea Nasal) 2 spray NASAL TID PRN PRN NASAL DRYNESS #0 mL 12/12/22 Hospital Course Operations None Procedures 2-D Echocardiogram, Central line placement and Dialysis Summary of Care Provided Minutes Spent on Discharge: 42 Weight / BMI Weight Weight: 65.3 kg Body Mass Index (BMI) 22.6 ABG / Lab / Microbiology Data 12/12/22 05:20 12/12/22 05:20 Laboratory: Laboratory Results - last 24 hr 12/11/22 05:03: Diff Path Review Reviewed 12/11/22 16:29: POC Glucose 209 H 12/11/22 20:49: POC Glucose 303 H 12/12/22 05:20: WBC 22.1 H, RBC 2.53 L, Hgb 7.5 L, Hct 23.7 L, MCV 93.7, MCH 29.6, MCHC 31.6 L, RDW Std Deviation 49.8 H, RDW Coeff of Russell 14.8 H, Plt Count 277, MPV 11.6, Neut % (Auto) Not Reportable, Absolute Neuts (auto) 14.4 H, Absolute Lymphs (auto) 2.21, Total Counted 100, Neutrophils % (Manual) 63, Band Neutrophils % 2, Lymphocytes % (Manual) 10 L, Monocytes % (Manual) 4, Eosinophils % (Manual) 16 H, Metamyelocytes % 3 H, Myelocytes % 2 H, Diff Path Review August, Platelet Estimate ADEQUATE, RBC Morphology NORM C+C, Sodium 137, Potassium 4.5, Chloride 108 H, Carbon Dioxide 23.0, Anion Gap 6, BUN 70 H, Creatinine 3.60 H, Estim Creat Clear Calc 15.56, Est GFR (MDRD) Af Amer 21 L, Est GFR (MDRD) Non-Af 18 L, BUN/Creatinine Ratio 19.4, Glucose 223 H, Calcium 8.2 L 12/12/22 06:20: POC Glucose 239 H 12/12/22 12:33: POC Glucose 239 H Microbiology: Microbiology 12/04/22 13:55 Fluid - Thoracentesis Fluid Gram Stain - Final 12/04/22 13:55 Fluid - Thoracentesis Fluid Body Fluid Culture - Final Culture exhibits no growth. 12/04/22 13:55 Fluid - Thoracentesis Fluid Anaerobic Culture - Final No growth in 5 days. 12/02/22 12:06 Blood Culture (Wb) - Anticubital Right Blood Culture - Final No growth in 5 days. 12/02/22 12:00 Blood Culture (Wb) - Right Hand Blood Culture - Final No growth in 5 days. 12/04/22 17:00 Sputum, Expectorated/Coughed Gram Stain - Final 12/04/22 17:00 Sputum, Expectorated/Coughed Respiratory Culture - Final Presumptive C albicans 11/29/22 09:55 Blood Culture (Wb) - Anticubital Right Blood Culture - Final No growth in 5 days. 11/29/22 10:10 Blood Culture (Wb) - Anticubital Left Blood Culture - Final No growth in 5 days. 11/29/22 08:50 Mucosa - Nasopharyngeal Respiratory Panel (PCR) - Final 11/29/22 10:40 Urine, Random Legionella Antigen - Final 11/29/22 10:40 Urine, Random Streptococcus pneumoniae Antigen (M - Final 11/28/22 00:06 Nasal Secretion SARS-CoV-2 Antigen (Rapid) - Final Meaningful Use Info Meaningful Use Diagnoses (Choose all that apply): None applicable Discharge Plan Admission Admit Date/Time: 11/28/22 23:48 Primary Reason for Your Visit: pneumonia. acute kidney injury. Attending Provider: Channing Plunkett Primary Care Provider: Cesar Keenan Consulting Providers: Mushtaq Schmidt; Stanley Kelly; Awais De; Benedict Cole; Leonard Vásquez; Jeffry Portillo; Juan Alberto Uribe; Yi Obregon CANDY ROLLER; Kasie Wheat; Remi Lopez; Maria Guadalupe Townsend; Tracie Sanon; Maximilian Maldonado; Elke Crum; Vibha Zapata; Bay Escudero; Artur Valera; Gudelia Major; César Gutiérrez; Shine Talbot; Demarco Valdes; Mushtaq Cordero; Pritesh Mcclain; Shine Gaffney; Corwin Duran; Brent Garcia; Madan Perez; Yesy Sin NP; Suzette Genao; Deisi Heredia Instructions Additional Instructions / Restrictions: Dialysis every Thursday, Thursday, Thursday with [facility]. Discharge Orders/Prescriptions Prescriptions: New acetaminophen 325 mg Tablet 650 mg PO Q4H PRN PRN (Reason: Fever, pain 1-01/20) Qty: 0 0RF amlodipine 5 mg Tablet 5 mg PO DAILY Qty: 0 0RF pantoprazole 40 mg Tablet,Delayed Release (Dr/Ec) 40 mg PO BID Qty: 30 0RF gabapentin 100 mg Capsule 100 mg PO TIDCM Qty: 0 0RF sertraline 50 mg Tablet 50 mg PO DAILY Qty: 0 0RF insulin lispro [Humalog KwikPen Insulin] 100 unit/mL Insulin Pen 10 unit subcut TIDAC Qty: 0 0RF insulin lispro [Humalog KwikPen Insulin] 100 unit/mL Insulin Pen See Protocol subcut ACHS Qty: 0 0RF Protocol: 4. Sliding Scale Insulin High-Med Dosing Condition: 150-199 mg/dl = 2 units Condition: 200-259 mg/dl = 4 units Condition: 260-324 mg/dl = 6 units Condition: 325-374 mg/dl = 8 units Condition: 375-409 mg/dl = 10 units Condition: 410-449 mg/dl = 11 units Condition: Greater than 449 call physician Protocol Text: - Use for Total Daily Dose of Insulin 56-80 units - Patient who are insulin resistant or septic HIGH MEDIUM DOSING ALGORITHM Deep Sea Nasal 0.65 % Aerosol,[place] 2 spray NASAL TID PRN PRN (Reason: NASAL DRYNESS) Qty: 0 0RF metoprolol tartrate 25 mg Tablet 12.5 mg PO BID Qty: 0 0RF Pureflow B 2k Dialysis Soln 6 bag perfusion UD Qty: 0 0RF Continued aspirin [Adult Low Dose Aspirin] 81 mg tablet,delayed release (DR/EC) 81 mg PO QDAY finasteride [Proscar] 5 mg tablet 5 mg PO QDAY multivitamin tablet 1 tab PO QDAY docusate sodium [Colace] 100 mg capsule 200 mg PO BID Vision Formula (W-X-W-Zn-geovani) 14,320-226-200 tjgh-sz-zolz capsule 1 cap PO ONCE folic acid 400 mcg tablet 500 mcg PO BID rosuvastatin 20 mg tablet 20 mg PO DAILY (DME) FreeStyle Tani 2 Sensor Kit See Rx Instructions .Route Qty: 2 3RF Rx Instructions: As directed (DME) FreeStyle Tani 2 [place] Misc See Rx Instructions .Route Qty: 2 3RF Rx Instructions: As directed magnesium oxide 400 mg magnesium capsule 400 mg PO DAILY calcium citrate 200 mg (950 mg) tablet 200 mg PO DAILY bisacodyl 5 mg tablet,delayed release (DR/EC) 5 mg PO ONCE cholecalciferol (vitamin D3) 125 mcg (5,000 unit) capsule 125 mcg PO DAILY ferrous sulfate 325 mg (65 mg iron) tablet 325 mg PO DAILY Qty: 90 1RF Changed insulin glargine [Lantus Solostar U-100 Insulin] 100 unit/mL (3 mL) insulin pen 12 unit SC BIDCM Qty: 15 0RF Discontinued lisinopril 40 mg tablet 40 mg PO QDAY gabapentin 300 mg capsule 300 mg PO TID Humalog [place] Insulin 200 unit/mL (3 mL) insulin pen See Rx Instructions SC TID Rx Instructions: sliding scale subcutaneously three times a day; sliding scale amlodipine 10 mg tablet 10 mg PO DAILY furosemide 40 mg tablet 40 mg PO DAILY cinnamon bark [Cinnamon] 500 mg capsule 1,000 mg PO DAILY Referrals / Follow Up: [facility] [Provider Group] - Within 1 Month [facility] [Provider Group] - 06/23/23 8:15 am [facility] [Provider Group] - 12/18/22 8:45 am Cesar Keenan MD [Primary Care Provider] - Within 2 Weeks Disposition Disposition (needs filled in before D/C Order can be placed): [facility] Charges/Coding Visit Charges Inpatient E&M: 73049 Disch Hosp >30min
[2022-12-12] MEDS: Acetaminophen 325 MG Tablet 650 MG PO (14:56)
--- NOTE | 2022-12-12 15:34 | CASEMGMT ---
SW did make it in to see patient and his . SW let them know that [facility] has accepted patient. SW also let them know the physician is going to send patient today. Patient's daughter then came into the room. SW explained [facility] accepted patient and he will go today. SW answered their questions. SW completed a PASRR in [employer] system. Plan: d/c to [facility] under skilled level of care on a PASRR. Physicians will transport patient via cot. Felisha DICKSON
--- NOTE | 2022-12-12 16:30 | CASEMGMT ---
Discharge Planning Discharge orders, signed med list and transport time sent to [facility] will transport patient by wheelchair at 5p. Nursing, SW, patient, his mother, and brother all updated. Asked brother to notify his sister as I was unable to leave a message for her. Melyssa Michaud, Discharge Planning Asst.
--- NOTE | 2022-12-12 16:35 | CASEMGMT ---
Discharge Planning Discharge orders, signed me list, and transport time sent to [facility] via [facility]. [facility] will transport patient by cot at 7p. Nursing, SW, patient, his and daughter all updated. Melyssa Michaud, Discharge Planning Asst.
[2022-12-12] MEDS: Insulin Lispro 100 UNIT/ML INSULN.PEN 10 UNIT SC (16:57)
[2022-12-12 17:05] LABS: Bedside Glucose 279 mg/dL (74-106)
--- NOTE | 2022-12-12 19:51 | NURSING ---
Report called to [facility] at 1950, was asked if they could call the hospital back in 10 minutes; phone number given at this time.
--- NOTE | 2022-12-12 19:59 | NURSING ---
Report called at this time to nurse at [facility], nurse called back front office administrator this RN gave report.
[2022-12-16 08:59] LABS: Pathologist Review Reviewed
== END 2022-12-12 19:40 | disposition skilled nursing facility (03) | DRG 280 ==
LOC: ED 23:57 → PCU 11-29 00:42 → ICU 11-29 04:48 → PCU 12-01 18:28 → ICU 12-03 11:40 → PCU 12-06 18:39
PROVIDERS: Family Medicine; Internal Medicine; Internal Medicine Critical Care Medicine; Nurse Practitioner Adult Health; Student in an Organized Health Care Education/Training Program; Surgery; Admitting Provider Hospitalist; Emergency Provider Student in an Organized Health Care Education/Training Program; PCP Internal Medicine
DX: I13.2 Hypertensive heart and chronic kidney disease with heart failure and with stage 5 chronic kidney disease, or end stage renal disease (principal); I21.A1 Myocardial infarction type 2; E10.10 Type 1 diabetes mellitus with ketoacidosis without coma; J96.01 Acute respiratory failure with hypoxia; J96.02 Acute respiratory failure with hypercapnia; J18.9 Pneumonia, unspecified organism; I50.43 Acute on chronic combined systolic (congestive) and diastolic (congestive) heart failure; J90 Pleural effusion, not elsewhere classified; J44.0 Chronic obstructive pulmonary disease with (acute) lower respiratory infection; N18.4 Chronic kidney disease, stage 4 (severe); N17.9 Acute kidney failure, unspecified; E87.1 Hypo-osmolality and hyponatremia; E10.21 Type 1 diabetes mellitus with diabetic nephropathy; E10.42 Type 1 diabetes mellitus with diabetic polyneuropathy; E10.319 Type 1 diabetes mellitus with unspecified diabetic retinopathy without macular edema; D63.1 Anemia in chronic kidney disease; E10.22 Type 1 diabetes mellitus with diabetic chronic kidney disease; Z79.4 Long term (current) use of insulin; Z99.2 Dependence on renal dialysis; I35.0 Nonrheumatic aortic (valve) stenosis; F32.A Depression, unspecified; I16.0 Hypertensive urgency; D50.9 Iron deficiency anemia, unspecified; F17.200 Nicotine dependence, unspecified, uncomplicated; E87.5 Hyperkalemia; I25.10 Atherosclerotic heart disease of native coronary artery without angina pectoris; G47.33 Obstructive sleep apnea (adult) (pediatric); E78.5 Hyperlipidemia, unspecified; I25.2 Old myocardial infarction; Z79.01 Long term (current) use of anticoagulants; Z79.82 Long term (current) use of aspirin; Z82.62 Family history of osteoporosis; N14.11 Contrast-induced nephropathy; B37.9 Candidiasis, unspecified; G89.29 Other chronic pain; N40.0 Benign prostatic hyperplasia without lower urinary tract symptoms
CPT/HCPCS: 32555; 36415; 36600; 70450; 71045; 71046; 71250; 77001; 78452; 80048; 80053; 80202; 82009; 82150; 82728; 82803; 82945; 82947; 82962; 83036; 83540; 83550; 83605; 83615; 83735; 83880; 83930; 83986; 84156; 84157; 84484; 85025; 85610; 85730; 86850; 86900; 86901; 86920; 87040; 87070; 87075; 87205; 87340; 87428; 87449; 87633; 87641; 87811; 88108; 88305; 88313; 89050; 90937; 93005; 93017; 93306; 93971; 93985; 94002; 94003; 94640; 94660; 94668; 94762; 97035; 97110; 97116; 97140; 97162; 97165; 97530; 97535; 97802; 97803; 99252; 99285; A9500; J0885; J2185; J7030; J7040; P9016; Q9957; A4216; G0257; G0463; J0696; J1940; J2405; J2785

== ENCOUNTER → 2023-02-06 | Outpatient (CLI) | payer MEDICARE, OTHER, SELFPAY ==
[2023-02-06 10:07] LABS: Hematocrit 46.3 % (40-54); Hemoglobin 14.2 g/dL (13.0-16.5); Mean Corp Hgb Conc 30.7 g/dL (32-36); Mean Corpuscular Hgb 28.7 pg (27.0-32.0); Mean Corpuscular Volume 93.5 fL (80-94); Mean Platelet Vol. 11.1 fl (6.2-12.0); Platelet Count 271 K/mm3 (150-450); RBC Distribution Width CV 13.3 % (11.6-14.6); Red Blood Count 4.95 M/mm3 (4.6-6.2)
[2023-02-06 10:37] LABS: Vitamin D,25 Hydroxy 73.4 ng/mL
[2023-02-06 10:40] LABS: Albumin, Serum 3.2 g/dL (3.2-5.0); BUN 28 mg/dL (7-18); BUN/Creat Ratio 12.2 RATIO (10-20); Calcium,Total 8.8 mg/dL (8.5-10.1); Chloride 100 mmol/L (98-107); EST Glomerular Filtration Rate 29 mL/min (>60); Est Glom Filt Rate - Afr Amer 35 mL/min (>60); Glucose 172 mg/dL (74-106); PTHIN 32.9 pg/mL (18.4-80.1); Sodium Level 138 mmol/L (136-145)
[2023-02-06 11:03] LABS: Protein, Urine (Random) 749.8 mg/dL (<11.9); Protein:Creat Ratio 3905 mg/g CRE (0-200)
== END | disposition home or self-care (01) ==
LOC: MTLAB 08:33
PROVIDERS: PCP Internal Medicine; Referring Provider Internal Medicine Nephrology; Visit Provider Internal Medicine Nephrology
DX: N18.4 Chronic kidney disease, stage 4 (severe) (principal); E55.9 Vitamin D deficiency, unspecified; D64.9 Anemia, unspecified
CPT/HCPCS: 36415; 80069; 82306; 82570; 83970; 84156; 85027

== ENCOUNTER 2023-02-21 20:23 | Emergency (ER) | payer MEDICARE, OTHER, SELFPAY ==
[2023-02-21 20:28] VITALS: BP 111/53; PULSE 78; RESP 21; TEMP 36.6; O2SAT 94; BMI 20.9
--- NOTE | 2023-02-21 21:02 | EKG12_ITS ---
Test Reason : SYNCOPE Blood Pressure : / mmHG Vent. Rate : 076 BPM Atrial Rate : 076 BPM P-R Int : 138 ms QRS Dur : 090 ms QT Int : 472 ms P-R-T Axes : -54 022 079 degrees QTc Int : 531 ms Unusual P axis, possible ectopic atrial rhythm with undetermined rhythm irregularity Moderate voltage criteria for LVH, may be normal variant ( Sokolow-Rahman , [place] product ) Nonspecific ST and T wave abnormality Prolonged QT Abnormal ECG Confirmed by CORINA VARGAS, ANTIONE ([id number]), news video editor NIRMALA RODRIGUEZ ([id number]) on 03/04/2023 10:00:15 AM Referred By: LITZY Confirmed By:ANTIONE ARRIAGA MD
[2023-02-21 21:09] LABS: Absolute Lymphocyte Count 1.27 X10^3/uL (0.83-4.51); Absolute Neutrophil Count 2.8 X10^3/uL (2.0-7.7); Basophil# 0.06 X10^3/uL; Basophil% 1.2 % (0-1); Eosinophil# 0.15 X10^3/uL; Hematocrit 40.2 % (40-54); Hemoglobin 12.7 g/dL (13.0-16.5); Lymphocyte # 1.27 X10^3/ul (0.83-4.51); Lymphocyte % 25.6 % (19-41); Mean Corp Hgb Conc 31.6 g/dL (32-36); Mean Corpuscular Hgb 28.4 pg (27.0-32.0); Mean Corpuscular Volume 89.9 fL (80-94); Mean Platelet Vol. 11.1 fl (6.2-12.0); Monocyte# 0.66 X10^3/uL; Monocyte% 13.3 % (0-10); NRBC Flagged by Analyzer 0 % (0-5); Neutrophil # 2.81 X10^3/uL (2.7-7.7); Neutrophil % 56.7 % (47-70); Platelet Count 252 K/mm3 (150-450); RBC Distribution Width CV 13.1 % (11.6-14.6); RBC Distribution Width SD 43.2 fl (35.1-43.9); Red Blood Count 4.47 M/mm3 (4.6-6.2)
[2023-02-21] MEDS: 0.9% Normal Saline (500mL Bag) 500 ML 999 ML IV (21:15)
--- NOTE | 2023-02-21 21:15 | EDS_ITS ---
HPI History of Present Illness Chief Complaint: Syncope Informant: patient and spouse/S.O. Narrative Narrative: Patient presents after syncopal episode. Patient states he went to dialysis today as scheduled. He has not missed recently. He does not know if he started above or below his normal weight and he does not know if he went above below or at his dry weight when he left. But he did have a full 4 hours. No issues then. He states normally he feels weak after dialysis. So he will go home lay down and rest and sometimes drink some fluids. Today he did not rest. He stayed up and read a book. He then decided to go get food. He did eat some food about 530 or 6. He drank some fluids with that. After eating he got a little lightheaded. He just felt like his legs were weak. He states he slowly fell to the ground but never lost consciousness. His was in a different room at the time. He called out. She went to see him and he was on the ground. He was talking to her. He was not unconscious. But they tried to get him up and he felt too weak again. He states right now feels perfectly fine. He states he hit his left knee for no but it does not hurt at all. He never hit his head. He has not had any recent fevers or chills. He did have a change in medicine but it was over a month ago. They stopped his lisinopril and started metoprolol. But this is the first time he has had this happen. He had been in rehab for a while. But he has been home now for 3 weeks. Both he and his states he has been doing very well. She does state that he does not drink enough fluids. She also states that his weight has slowly come down from about 160 470 pounds down to about 120 pounds since he got ill several months ago. [facility] Medical History Alcohol use Anemia Aortic root dilatation Aortic valve stenosis Arthritis Atherosclerotic heart disease of [place] coronary artery without angina pectoris Back pain Back problem Bone fracture Bronchitis Cancer Cardiology follow-up encounter Cataracts, bilateral Chronic neck and back pain CKD (chronic kidney disease) stage 4, GFR 15-29 ml/min CKD (chronic kidney disease), stage IV 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 1 diabetes mellitus COPD (chronic obstructive pulmonary disease) Diabetic retinopathy associated with type 1 diabetes mellitus Dietary restriction Dyspnea on exertion End stage renal disease Essential hypertension Family history of hyperlipidemia Family history of hypertension Former smoker Headache Hearing loss, left Hearing loss, right Hearing problem HFrEF (heart failure with reduced ejection fraction) High cholesterol History of echocardiogram History of edema History of non-ST elevation myocardial infarction (NSTEMI) History of pain when walking History of stress test Hyperlipidemia Hypertension Hypertension 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 Kidney stones 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 Low iron Mixed hyperlipidemia Nicotine abuse Nonrheumatic aortic (valve) stenosis Olecranon bursitis, left elbow Olecranon bursitis, right elbow Open wound Osteoarthritis Osteopenia Polymyalgia arteritica Prostate cancer Prostate disease Shortness of breath on exertion Skin mole Sleep apnea Smoker Swelling of right elbow Unintentional weight loss of more than 10 pounds Vision problem Wears dentures Wears glasses Wears hearing aid Wears hearing aid in both ears Home Medications aspirin 81 mg tablet,delayed release (Adult Low Dose Aspirin) 81 mg PO QDAY 06/15/17 [History Last Taken 05/27/21] finasteride 5 mg tablet (Proscar) 5 mg PO QDAY 06/16/17 [History Last Taken Unknown] ferrous sulfate 325 mg (65 mg iron) tablet 325 mg PO DAILY #90 tabs 12/30/21 [Rx Last Taken Unknown] flash glucose scanning reader (InnolumeStyle Tani 2 [place]) #2 ea 03/28/22 [Rx Last Taken Unknown] flash glucose sensor (FreeStyle Tani 2 Sensor kit) #2 ea 03/28/22 [Rx Last Taken Unknown] magnesium oxide 400 mg PO DAILY 04/30/22 [History Last Taken Unknown] cholecalciferol (vitamin D3) 125 mcg (5,000 unit) capsule 125 mcg PO DAILY 05/05/22 [History Last Taken Unknown] PureFlow B 2K Dialysis Soln 6 bag perfusion UD ##0 12/12/22 [Rx Last Taken Unknown] acetaminophen 325 mg tablet 650 mg (2 x 325 mg) PO Q4H PRN PRN Fever, pain 1- 01/20 #0 tabs 12/12/22 [Rx Last Taken Unknown] folic acid 400 mcg tablet 400 mcg PO DAILY 01/14/23 [History Last Taken Unknown] insulin lispro 100 unit/mL subcutaneous pen (Humalog KwikPen (U-100) Insulin) See Protocol subcut ACHS 01/14/23 [History Last Taken Unknown] albuterol sulfate 2.5 mg/3 mL (0.083 %) solution for nebulization 2.5 mg inhalation Q4H PRN shortness of breath or wheezing 01/23/23 [History Last Taken Unknown] calcium carbonate 600 mg-vitamin D3 10 mcg (400 unit) capsule 1 cap PO DAILY 01/23/23 [History Last Taken Unknown] furosemide 40 mg tablet 40 mg PO DAILY PRN weight gain 01/23/23 [History Last Taken Unknown] sennosides 8.6 mg tablet (senna) 8.6 mg PO DAILY 01/23/23 [History Last Taken Unknown] amlodipine 5 mg tablet 10 mg PO DAILY 01/26/23 [History Last Taken Unknown] gabapentin 100 mg capsule 300 mg PO TIDCM 01/26/23 [History Last Taken Unknown] pantoprazole 40 mg tablet,delayed release 40 mg PO DAILY #90 tabs 01/26/23 [Rx Last Taken Unknown] sertraline 50 mg tablet 50 mg PO DAILY #90 tabs 01/26/23 [Rx Last Taken Unknown] insulin glargine 100 unit/mL (3 mL) subcutaneous pen (Lantus Solostar U-100 Insulin) 8 unit subcut QPM 01/28/23 [History Last Taken Unknown] insulin lispro 100 unit/mL subcutaneous pen (Humalog KwikPen (U-100) Insulin) 6 unit subcut TIDAC 01/28/23 [History Last Taken Unknown] foam bandage 4 X 4 (Mepilex) #5 ea 01/29/23 [Rx Last Taken Unknown] atorvastatin 40 mg tablet 40 mg PO DAILY #90 tabs 02/19/23 [Rx Last Taken Unknown] metoprolol tartrate 25 mg tablet 12.5 mg (1/2 x 25 mg) PO BID #90 tabs 02/19/23 [Rx Last Taken Unknown] vitamin B complex and vitamin C no.20-folic acid 1 mg capsule (Renal Caps) 1 cap PO DAILY #90 caps 02/19/23 [Rx Last Taken Unknown] vitamins A,C,U-mdku-dqaqcz 4,296 mcg-226 mg-90 mg capsule (ICaps AREDS) 1 cap PO DAILY #90 caps 02/19/23 [Rx Last Taken Unknown] Allergy/AdvReac Type Severity Reaction Status Date / Time levofloxacin [From Levaquin] Allergy Hives Verified 02/19/23 14:41 vancomycin AdvReac Severe Rash Verified 02/19/23 14:41 Family History Father Diabetes Hypertension Family history of hyperlipidemia Asthma Kidney disease Mother Diabetes Brother Cancer Throat cancer Brother CAD (coronary artery disease) Myocardial infarction, Onset Age: 52 Sister Family history of hyperlipidemia Hypertension Diabetes Unknown Alcoholism Arthritis Depression Diabetes Hypertension Hyperlipidemia Osteoporosis Respiratory disease Pancreatic cancer Other Family history of hypertension Surgical History Fracture of left patella Fracture of left upper extremity History of bilateral inguinal hernia repair (~2007) History of colonoscopy (~2013) History of hemorrhoidectomy (~2000) History of hernia repair (~1991) stent replacement for right sided kidney stome Wrist fracture, bilateral Social History Smoking Status: Former smoker Tobacco: How many years used: 50 how long ago did patient quit smoking: about 2 months ago alcohol intake: current alcohol intake frequency: a few times a month substance use type: does not use caffeine: Yes Type: coffee Number of servings: 2 what type of physical activity do you participate in: none seatbelt use: sometimes do you feel safe at home: Yes ROS ROS ED ROS Narrative A complete review of systems was performed and is negative except as documented in the history of present illness. Some specific details below. Constitutional: No recent fevers or chills. No days. He states he feels fine now and he felt fine earlier in the day. No recent complaints at all. EYE: No discharge, visual complaints, or pain. ENT: No difficulty swallowing. No swelling. No pain. No reflux symptoms. CV: He never had chest pain. He did not have palpitations. He did not feel his heart go fast slow or missed beats. He never lost consciousness. Respiratory: No pulmonary symptoms. No coughing. GI: No abdominal pain. No nausea vomiting diarrhea. No blood in stool. : No frequency dysuria or hematuria. He does still make urine. His also reports that he has a history of hypokalemia. Of note he is also on Lasix. Musculoskeletal: No recent trauma. No pains. No swelling. Skin: No rash. Nondiaphoretic. Neuro: No focal weakness or numbness. Endocrine: No polyuria or polydipsia. EXAM Physical Exam Narrative Exam Narrative: CONSTITUTIONAL: Patient is nontoxic in appearance. The patient looks comfortable. Work of breathing looks normal. He does not look pale. HEENT: No notable trauma. Mucous membranes mildly dry.. No sinus tenderness. No indication of pain with swallowing. EYES: No conjunctival injection. No proptosis. No pallor. NECK:No JVD. No stridor. CARDIOVASCULAR: Regular rate. Regular rhythm. No notable murmur. No JVD. He is not bradycardic on the monitor. No significant ectopy. Despite a blood pres sure about 90/60 he has good peripheral pulses. He has good color. There is no mottling of the skin. RESPIRATORY: No respiratory distress. Breathing is unlabored. No wheezes. No rhonchi. No rales. No pain with a deep breath. No chest wall tenderness. He has a Vas-Cath in his right upper chest that looks clean and intact. No sign of infection. GASTROINTESTINAL: Not distended. Bowel sounds are normal. No tenderness. No guarding. No rebound. No palpable mass. No bruit is heard. GENITOURINARY: No tenderness over the bladder. No CVA tenderness. MUSCULOSKELETAL: Atraumatic. No peripheral edema. No cord. No tenderness along the deep venous system. No asymmetry. No distended veins. NEUROLOGICAL: Patient is alert and appropriate. No focal deficit noted. SKIN: No noted rashes. No diaphoresis. PSYCHIATRIC: Patient is calm. Mood is appropriate. Const Vital Signs: 02/21/23 20:28 02/21/23 20:31 02/21/23 21:45 Temperature 97.8 F Temperature Source Oral Pulse Rate 78 68 Respiratory Rate 21 H 20 H Respiratory Effort Normal Non-Labored Respiratory Pattern Normal Blood Pressure 111/53 L 136/62 H Blood Pressure Mean 72 86 Pulse Ox 94 96 Oxygen Delivery Method Room Air Room Air MDM MDM MDM Narrative Medical decision making narrative: Patient CBC shows minimally low hemoglobin at 12.7 which is not clinically relevant in terms of causing his symptoms. Patient's electrolytes do show elevated creatinine consistent with kidney disease. He does have some mildly low potassium at 3.2. Although we do not normally replace potassium at this level in somebody with renal failure, he was lightheaded and has a history of hypokalemia, still makes urine is on Lasix. We did give him a small dose of oral potassium because of this. Patient's lactic acid was normal. We gave him a small bolus of fluid of 500 cc. His blood pressures been 136 and 129 systolic. He feels fine. He wants to go home. I think this is reasonable. I think he likely got a little bit dry through the 4 hours of dialysis. There is no fever. I see no sign of infection or indication for culturing at this time. We discussed reasons to return that would include recurrent lightheadedness, fevers pains palpitations or any other concerns. We considered CT scan of head and x-rays but there is no indication of injury. He never hit his head. He is not on blood thinners. Although he hit his thumb it does not hurt there is no deformity and no tenderness. Lab Data Attestation: I reviewed the patient's lab results. Labs: Laboratory Results - last 24 hr 02/21/23 02/21/23 20:30 21:08 WBC 5.0 RBC 4.47 L Hgb 12.7 L Hct 40.2 MCV 89.9 MCH 28.4 MCHC 31.6 L RDW Std Deviation 43.2 RDW Coeff of Russell 13.1 Plt Count 252 MPV 11.1 Immature Gran % (Auto) 0.200 Neut % (Auto) 56.7 Lymph % (Auto) 25.6 Villalba % (Auto) 13.3 H Eos % (Auto) 3.0 Baso % (Auto) 1.2 H Absolute Neuts (auto) 2.8 Absolute Lymphs (auto) 1.27 Nucleated RBC % 0 Sodium 138 Potassium 3.2 L Chloride 100 Carbon Dioxide 37.0 H Anion Gap 1 L BUN 22 H Creatinine 2.15 H Estim Creat Clear Calc 23.84 Est GFR (MDRD) Af Amer 38 L Est GFR (MDRD) Non-Af 32 L BUN/Creatinine Ratio 10.2 Glucose 73 L Lactic Acid 1.0 Calcium 8.3 L EKG Initial EKG: Comments: My independent interpretation of the patient's EKG done for syncope shows what appears to be sinus rhythm. Does have unusual P axis. There is an occasional PAC. No PVC. There is some LVH. Nonspecific ST and T wave changes but no sign of infarct or ischemia. NH interval, QRS duration are normal. QTc is a bit long at 531 ms. Discharge Plan Triage Chief Complaint: Syncope ED Provider: Kj Arriaza Dx/Rx/DC Orders Clinical Impression: Syncope, History of renal failure, Dehydration, Acute hypokalemia Instructions: ED Fainting, Uncertain Cause Prescriptions: No Action aspirin [Adult Low Dose Aspirin] 81 mg tablet,delayed release (DR/EC) 81 mg PO QDAY finasteride [Proscar] 5 mg tablet 5 mg PO QDAY folic acid 400 mcg tablet 400 mcg PO DAILY (DME) FreeStyle Tani 2 Sensor Kit See Rx Instructions .Route Qty: 2 3RF Rx Instructions: As directed (DME) FreeStyle Tani 2 [place] Misc See Rx Instructions .Route Qty: 2 3RF Rx Instructions: As directed magnesium oxide 400 mg magnesium capsule 400 mg PO DAILY cholecalciferol (vitamin D3) 125 mcg (5,000 unit) capsule 125 mcg PO DAILY insulin lispro [Humalog KwikPen Insulin] 100 unit/mL insulin pen See Protocol subcut [facility] Protocol: 4. Sliding Scale Insulin High-Med Dosing Condition: 150-199 mg/dl = 2 units Condition: 200-259 mg/dl = 4 units Condition: 260-324 mg/dl = 6 units Condition: 325-374 mg/dl = 8 units Condition: 375-409 mg/dl = 10 units Condition: 410-449 mg/dl = 11 units Condition: Greater than 449 call physician Protocol Text: - Use for Total Daily Dose of Insulin 56-80 units - Patient who are insulin resistant or septic HIGH MEDIUM DOSING ALGORITHM furosemide 40 mg tablet 40 mg PO DAILY PRN (Reason: weight gain) Rx Instructions: PRN for fluid overload/SOB/weight gain of 2lbs in 1 day/Gain of 5lbs in 1 week sennosides [senna] 8.6 mg tablet 8.6 mg PO DAILY albuterol sulfate 2.5 mg /3 mL (0.083 %) solution for nebulization 2.5 mg inhalation Q4H PRN (Reason: shortness of breath or wheezing) calcium carbonate-vitamin D3 600 mg-10 mcg (400 unit) capsule 1 cap PO DAILY insulin glargine [Lantus Solostar U-100 Insulin] 100 unit/mL (3 mL) insulin pen 8 unit SC QPM insulin lispro [Humalog KwikPen Insulin] 100 unit/mL insulin pen 6 unit subcut TIDAC amlodipine 5 mg tablet 10 mg PO DAILY gabapentin 100 mg capsule 300 mg PO TIDCM sertraline 50 mg tablet 50 mg PO DAILY Qty: 90 2RF pantoprazole 40 mg tablet,delayed release (DR/EC) 40 mg PO DAILY Qty: 90 0RF acetaminophen 325 mg Tablet 650 mg PO Q4H PRN PRN (Reason: Fever, pain -01/20) Qty: 0 0RF Pureflow B 2k Dialysis Soln 6 bag perfusion UD Qty: 0 0RF ferrous sulfate 325 mg (65 mg iron) tablet 325 mg PO DAILY Qty: 90 1RF (DME) Mepilex 4 X 4 bandage See Rx Instructions .Route Qty: 5 2RF Rx Instructions: As directed atorvastatin 40 mg tablet 40 mg PO DAILY Qty: 90 1RF Renal Caps 1 mg capsule 1 cap PO DAILY Qty: 90 1RF metoprolol tartrate 25 mg tablet 12.5 mg PO BID Qty: 90 1RF Rx Instructions: Hold for SBP less than 130 ICaps AREDS 4,296 mcg-226 mg-90 mg capsule 1 cap PO DAILY Qty: 90 2RF Primary Care Provider: Cesar Keenan Referrals: Cesar Keenan MD [Primary Care Provider] - 3-5 Days if not improving Disposition Disposition: Home, Self Care
[2023-02-21 21:27] LABS: Anion Gap 1 (5-15); BUN 22 mg/dL (7-18); BUN/Creat Ratio 10.2 RATIO (10-20); Calcium,Total 8.3 mg/dL (8.5-10.1); Chloride 100 mmol/L (98-107); Creatinine, Serum 2.15 mg/dL (0.70-1.30); EST Glomerular Filtration Rate 32 mL/min (>60); Est Glom Filt Rate - Afr Amer 38 mL/min (>60); Estimated Creatinine Clearance 23.84 ml/min; Glucose 73 mg/dL (74-106); Potassium 3.2 mmol/L (3.5-5.1); Sodium Level 138 mmol/L (136-145)
[2023-02-21] MEDS: Potassium Chloride Oral Tablet 20 MEQ PO (21:43)
[2023-02-21 21:45] VITALS: BP 136/62; PULSE 68; RESP 20; O2SAT 96
[2023-02-21 23:11] VITALS: BP 133/54; PULSE 67; RESP 17; O2SAT 95
== END 2023-02-21 23:12 | disposition home or self-care (01) ==
PROVIDERS: Emergency Provider Emergency Medicine; PCP Internal Medicine; Visit Provider Emergency Medicine
DX: R55 Syncope and collapse (principal); I13.2 Hypertensive heart and chronic kidney disease with heart failure and with stage 5 chronic kidney disease, or end stage renal disease; Z99.2 Dependence on renal dialysis; J44.9 Chronic obstructive pulmonary disease, unspecified; I50.9 Heart failure, unspecified; E10.22 Type 1 diabetes mellitus with diabetic chronic kidney disease; N18.6 End stage renal disease; Z79.4 Long term (current) use of insulin; Z87.891 Personal history of nicotine dependence; E78.2 Mixed hyperlipidemia; I25.10 Atherosclerotic heart disease of native coronary artery without angina pectoris; E87.6 Hypokalemia; E86.0 Dehydration; Z79.899 Other long term (current) drug therapy; Z79.82 Long term (current) use of aspirin; I25.2 Old myocardial infarction; I5A Non-ischemic myocardial injury (non-traumatic)
CPT/HCPCS: 80048; 83605; 85025; 93005; 96360; 99285; J7050; A4216

== ENCOUNTER 2023-03-02 05:47 | Day surgery (SDC) | payer MEDICARE, OTHER, SELFPAY ==
[2023-03-02] VITALS (7 sets, daily range): BP systolic 144–161; BP diastolic 56–66; PULSE 64–69; RESP 16–18; TEMP 36.5–37.1; O2SAT 96–100; BMI 19.3
[2023-03-02] MEDS: 0.9% Normal Saline (500mL Bag) 500 ML 15 ML IV (06:32)
--- NOTE | 2023-03-02 06:52 | PCM.HP.BLA ---
History and Physical Date of Admission: 03/02/23 Visit Reasons: FISTULA Chief Complaint: fistula Core Rescuer Required: No Is patient in pain?: No Allergies levofloxacin [From Levaquin] Allergy (Verified 02/16/23 13:19) Hivesvancomycin Adverse Reaction (Severe, Verified 02/16/23 13:19) Rash Medications aspirin 81 mg tablet,delayed release (Adult Low Dose Aspirin) 81 mg PO QDAY 06/15/17 [History Confirmed 02/16/23] finasteride 5 mg tablet (Proscar) 5 mg PO QDAY 06/16/17 [History Confirmed 02/16/23] ferrous sulfate 325 mg (65 mg iron) tablet 325 mg PO DAILY #90 tabs 12/30/21 [Rx Confirmed 02/16/23] flash glucose scanning reader (EnterCloud SolutionsStyle Tani 2 [place]) #2 ea 03/28/22 [Rx Confirmed 02/16/23] flash glucose sensor (FreeStyle Tani 2 Sensor kit) #2 ea 03/28/22 [Rx Confirmed 02/16/23] magnesium oxide 400 mg PO DAILY 04/30/22 [History Confirmed 02/16/23] cholecalciferol (vitamin D3) 125 mcg (5,000 unit) capsule 125 mcg PO DAILY 05/05/22 [History Confirmed 02/16/23] PureFlow B 2K Dialysis Soln 6 bag perfusion UD ##0 12/12/22 [Rx Confirmed 02/16/23] acetaminophen 325 mg tablet 650 mg (2 x 325 mg) PO Q4H PRN PRN Fever, pain 1-01/20 #0 tabs 12/12/22 [Rx Confirmed 02/16/23] folic acid 400 mcg tablet 400 mcg PO DAILY 01/14/23 [History Confirmed 02/16/23] insulin lispro 100 unit/mL subcutaneous pen (Humalog KwikPen (U-100) Insulin) See Protocol subcut ACHS 01/14/23 [History Confirmed 02/16/23] albuterol sulfate 2.5 mg/3 mL (0.083 %) solution for nebulization 2.5 mg inhalation Q4H PRN 01/23/23 [History Confirmed 02/16/23] calcium carbonate 600 mg-vitamin D3 10 mcg (400 unit) capsule 1 cap PO DAILY 01/23/23 [History Confirmed 02/16/23] furosemide 40 mg tablet 40 mg PO DAILY PRN 01/23/23 [History Confirmed 02/16/23] sennosides 8.6 mg tablet (senna) 8.6 mg PO DAILY 01/23/23 [History Confirmed 02/16/23] vitamins A,C,K-bhny-eordku 4,296 mcg-226 mg-90 mg capsule (ICaps AREDS) 1 cap PO DAILY 01/23/23 [History Confirmed 02/16/23] amlodipine 5 mg tablet 10 mg PO DAILY 01/26/23 [History Confirmed 02/16/23] gabapentin 100 mg capsule 300 mg PO TIDCM 01/26/23 [History Confirmed 02/16/23] metoprolol tartrate 25 mg tablet 12.5 mg (1/2 x 25 mg) PO BID #90 tabs 01/26/23 [Rx Confirmed 02/16/23] pantoprazole 40 mg tablet,delayed release 40 mg PO DAILY #90 tabs 01/26/23 [Rx Confirmed 02/16/23] sertraline 50 mg tablet 50 mg PO DAILY #90 tabs 01/26/23 [Rx Confirmed 02/16/23] insulin glargine 100 unit/mL (3 mL) subcutaneous pen (Lantus Solostar U-100 Insulin) 8 unit subcut QPM 01/28/23 [History Confirmed 02/16/23] insulin lispro 100 unit/mL subcutaneous pen (Humalog KwikPen (U-100) Insulin) 6 unit subcut TIDAC 01/28/23 [History Confirmed 02/16/23] foam bandage 4 X 4 (Mepilex) #5 ea 01/29/23 [Rx Confirmed 02/16/23] atorvastatin 40 mg tablet 40 mg PO DAILY #90 tabs 02/09/23 [Rx Confirmed 02/16/23] vitamin B complex and vitamin C no.20-folic acid 1 mg capsule (Renal Caps) 1 cap PO DAILY #90 caps 02/09/23 [Rx Confirmed 02/16/23] [facility] Medical History (Updated 02/16/23 @ 13:19 by Bere Holguin) Alcohol use Anemia Aortic root dilatation Aortic valve stenosis Arthritis Atherosclerotic heart disease of [place] coronary artery without angina pectoris Back pain Back problem Bone fracture Bronchitis Cataracts, bilateral Chronic neck and back pain CKD (chronic kidney disease) stage 4, GFR 15-29 ml/min CKD (chronic kidney disease), stage IV 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 1 diabetes mellitus COPD (chronic obstructive pulmonary disease) Diabetic retinopathy associated with type 1 diabetes mellitus Dietary restriction Dyspnea on exertion End stage renal disease Essential hypertension Family history of hyperlipidemia Family history of hypertension Former smoker Headache Hearing loss, left Hearing loss, right Hearing problem HFrEF (heart failure with reduced ejection fraction) High cholesterol History of echocardiogram History of non-ST elevation myocardial infarction (NSTEMI) History of pain when walking History of stress test Hyperlipidemia Hypertension Hypertension 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 Kidney stones prison use of drug Mixed hyperlipidemia Nicotine abuse Nonrheumatic aortic (valve) stenosis Olecranon bursitis, left elbow Olecranon bursitis, right elbow Osteoarthritis Osteopenia Prostate cancer Prostate disease Shortness of breath on exertion Skin mole Sleep apnea Smoker Swelling of right elbow Unintentional weight loss of more than 10 pounds Vision problem Wears dentures Wears glasses Wears hearing aid Wears hearing aid in both ears Surgical History Fracture of left patella Fracture of left upper extremity History of bilateral inguinal hernia repair (~2007) History of colonoscopy (~2013) History of hemorrhoidectomy (~2000) History of hernia repair (~1991) stent replacement for right sided kidney stome Wrist fracture, bilateral Family History Father Diabetes Hypertension Family history of hyperlipidemia Asthma Kidney diseaseMother DiabetesBrother Cancer Throat cancerBrother CAD (coronary artery disease) Myocardial infarction, Onset Age: 52Sister Family history of hyperlipidemia Hypertension DiabetesUnknown Alcoholism Arthritis Depression Diabetes Hypertension Hyperlipidemia Osteoporosis Respiratory disease Pancreatic cancerOther Family history of hypertension Social History (Updated 02/16/23 @ 13:19 by Bere Holguin) Smoking Status: Current some day smoker Tobacco: How many years used: 50 how long ago did patient quit smoking: about 2 months ago alcohol intake: current alcohol intake frequency: a few times a month substance use type: does not use caffeine: Yes Type: coffee Number of servings: 2 what type of physical activity do you participate in: none seatbelt use: sometimes do you feel safe at home: Yes HPI HPI HPI: Herber 7-year-old gentleman. He had some nerve injections done in November that had hyperglycemia presented to the hospital shortness of breath was felt to have an acute myocardial infarction had right chest tunneled dialysis catheters placed. He is under the care of Dr. Townsend and he gets dialysis Tuesdays and Saturdays. He is now felt to be hemodialysis dependent. He is being referred by Dr. Townsend for surgical consultation regarding arteriovenous hemodialysis fistula creation.. He otherwise feels like he is stable now. He did require a brief long term stay. He is a chronic cigarette smoker but he states since this episode he has not returned to smoking. As noted below during his hospitalization he had IVs both antecubital space and vein mapping showing superficial thrombophlebitis of bilateral cephalic veins. December 09, 2022 Reason For Study: Eventual AV access Right Arm Left Arm Cephalic Vein at distal forearm measures 2.0 Cephalic Vein at distal forearm measures 2.8 x 2.4 mm. x 3.1 mm. Cephalic Vein at mid forearm measures 3.7 x Cephalic Vein at mid forearm measures 2.5 x 5.5 mm. 2.5 mm. Cephalic Vein proximal forearm measures 3.9 Cephalic Vein proximal forearm measures 5.4 x x 4.8 mm. 6.2 mm. Cephalic Vein distal upper arm measures 3.8 Cephalic Vein distal upper arm measures 2.8 x x 4.5 mm. 3.2 mm. Cephalic Vein at mid upper arm measures 3.4 Cephalic Vein at mid upper arm measures 3.0 x x 3.9 mm. 3.2 mm. Cephalic Vein at proximal upper arm measures Cephalic Vein at proximal upper arm measures 3.1 x 3.2 mm. 2.6 x 2.7 mm. Cephalic vein is noncopressible from mid Cephalic vein is noncompressible from distal bicep to mid forearm. IV noted within bicep to antecube. IV noted within vessel. vessel. compared to 12/07/22. Proximal Basilic vein measures 4.2 x 4.4 mm. Proximal Basilic vein measures 3.9 x 4.0 mm. Mid Basilic vein measures 3.6 x 3.6 mm. Mid Basilic vein measures 3.8 x 4.1 mm. Distal Basilic vein measures 3.1 x 3.3 mm. Distal Basilic vein measures 3.2 x 3.1 mm. Right Brachial artery measures 4.8 x 4.9 mm Left Brachial artery measures 4.9 x 5.2 mm with a velocity of 130.8 cm/sec. with a velocity of 163.7 cm/sec. Right Radial artery measures 2.9 x 3.0 mm Left Radial artery measures 2.6 x 2.8 mm with with a velocity of 93.5 cm/sec. a velocity of 84.7 cm/sec. Patient Safety Patient and family request to follow up with Dr. Lassiter. VL/Dialysis Vein Map PRE-OP BILAT Interpretation Summary Superficial thrombophlebitis right mid bicep to mid forearm and left distal bicep secondary to IV access noted within each vessel Normal diameter and flow bilateral upper arm basilic veins Normal bilateral radial and brachial artery flow Thrombophlebitis in bilateral cephalic veins will preclude utilization for arteriovenous fistula creation Ordering Physician: Maria Guadalupe Townsend Referring Physician: Cesar Keenan Performed By: Courtney Muhammad RVT General General: Yes weight change; No appetite, fatigue, colon cancer, breast cancer or weakness HEENT HEENT: No difficulty swallowing, eye injury, eye surgery, swollen glands or hoarseness Endo Endocrine: Yes diabetes mellitus; No thyroid disease, thyroid cancer, Hair loss, heat intolerance or cold intolerance Skin Skin: Yes rash; No changing moles Breast Breast: No left breast lump, right breast lump, nipple discharge, breast pain, abnormal mammogram, abnormal US or breast enlargement Musc Musculoskeletal: No back problems, arthritis, rheumatoid arthritis, gout or joint pain Cardio Cardiovascular: Yes high blood pressure; No murmur, pacemaker, heart disease, atrial fibrillation, heart attack, heart stent, palpitations, shortness of breat with exertion or chest pain Psych Psychiatric: No depression, anxiety or hearing voices Resp Respiratory: No shortness of breath, No sleep apnea, No cough, No COPD, No asthma, No emphysema and No wheezing Gastro Gastrointestinal: No abdominal pain, No nausea or vomiting, Yes diarrhea, No constipation, No blood in stool, No acid reflux, No hemorrhoids, No ulcers, No gallbladder problem and No black,tarry stools Craig Hematologic: Yes blood thinners, No blood disorders, No bleeding, No anemia and No blood clots Neuro Neurologic: No system reviewed and no additional complaints, except as documented, No as per HPI, No abnormal gait, No abnormal hearing, No abnormal movements, No abnormal speech, No behavioral changes, No burning sensations, No confusion, No convulsions, No disequilibrium, No dizziness, No localized weakness, No frequent falls, No headache(s), No lack of coordination, No loss of vision, No memory loss, No numbness, No other visual disturbances, No radicular pain, No restless legs, No sensory deficit, No syncope, No tingling, No tremor(s), No weakness and No other Exam Const General: cooperative, comfortable and no acute distress Nutritional Appearance: underweight Other: Evidence of recent significant weight loss [facility] Head: normal to inspection Eyes General: appearance normal, both eyes and all related structures Neck Neck: normal visual inspection Chest Other: Increased anterior posterior diameter, kyphosis, diminished respiratory excursion Resp Effort & Inspection: decreased respiratory effort Other: Clear bilaterally Cardio Rate: regular rate Rhythm: regular rhythm GI Inspection: normal to inspection Palpation: soft and no hepatosplenomegaly Musc Cervical Spine: normal cervical lordosis Skin General: no rashes or lesions noted Neuro General: patient alert, patient awake and patient oriented x3 Extrem Other: Left upper extremity inspected with ultrasound. Radial pulses 3+. The cephalic vein of the forearm is obliterated. Cephalic vein of the upper arm appears to be patent. Is slightly diminished in the distal upper arm but it is patent and compressible. Slight vein wall thickening. No visible thrombus. Psych Appearance: grossly normal Assessment and Plan Assessment and Plan (1) Dependent on hemodialysis: Status: Acute Plan: 77-year-old gentleman with right chest catheterization on chronic hemodialysis. I propose for him a left upper arm brachial cephalic arteriovenous hemodialysis fistula creation. Although he has had a recent myocardial infarction I believe that this procedure can be expedited for him with very light sedation and local anesthesia. It appears that his cephalic vein is recanalized and is this would be a much more direct approach than having to do a basilic vein transposition. I believe it is worth the effort. He has had an opportunity to ask and have questions answered. We will schedule and proceed at his discretion. We will also however notify cardiology of our intent hoping that we may proceed and start establishing him a fistula. Copy: Dr. Cesar Keenan and Hamzah Olvera, COLLEGE ATHLETIC DIRECTOR-C and Dr. Kristian Lassiter M.D., F.A.C.S The patient was seen in the emergency room 1 week ago ostensibly for syncope, hypotension and hypoglycemia. Currently he is stating that he is stable. With his present I have again discussed with him plan for a left upper extremity brachial cephalic arteriovenous hemodialysis fistula. We will try to do this with minimal sedation and local anesthesia. Shine Lassiter M.D., F.A.C.S.
--- NOTE | 2023-03-02 06:53 | EX.PCM.DISCH ---
Discharge Instructions Procedure Fistula Diet Discharge Diet: Renal Diet Activity Discharge Activity: May Not Drive (for 2-3 days or while taking narcotic pain medications.), May Shower and May Take a Tub Bath (in 5 days.) Lifting Restrictions: 5 pounds Keep extremity elevated above heart level: - (Keep arm elevated above the heart level for 3 days.) Dressing / Incision Call your doctor if your incision/area has: Continuous Slow Oozing, Sudden Increased Bleeding (apply pressure and call your doctor.), Increased Pain/ Swelling, Increased Redness and Foul Smelling Discharge Call your doctor if you observe: Fever of 101 or Higher Suture Line Care: Avoid Pulling/Pushing and Avoid Pinching/Bending Cleanse incision/area with: Keep Dressing Clean & Dry Additional Dressing/Incision Instructions:: Change or remove dressing in one day. May protect with a gauze bandaid. Follow Up Care Please Follow Up With: Shine Lassiter MD When: Call [phone] to make an appointment for suture removal and follow up in 1 week. Test Results: Test results from this visit will be discussed in further detail at your follow-up appointment, if applicable. Discharge Plan Admission Attending Provider: Shine Lassiter Primary Care Provider: Cesar Keenan Discharge Orders/Prescriptions Prescriptions: No Action aspirin [Adult Low Dose Aspirin] 81 mg tablet,delayed release (DR/EC) 81 mg PO QDAY finasteride [Proscar] 5 mg tablet 5 mg PO QDAY folic acid 400 mcg tablet 400 mcg PO DAILY (DME) FreeStyle Tnai 2 Sensor Kit See Rx Instructions .Route Qty: 2 3RF Rx Instructions: As directed (DME) FreeStyle Tani 2 [place] Misc See Rx Instructions .Route Qty: 2 3RF Rx Instructions: As directed magnesium oxide 400 mg magnesium capsule 400 mg PO DAILY cholecalciferol (vitamin D3) 125 mcg (5,000 unit) capsule 125 mcg PO DAILY metoprolol tartrate 25 mg tablet 12.5 mg PO BID Qty: 90 1RF Rx Instructions: Hold for SBP less than 130 ICaps AREDS 4,296 mcg-226 mg-90 mg capsule 1 cap PO DAILY Qty: 90 2RF insulin lispro [Humalog KwikPen Insulin] 100 unit/mL insulin pen See Protocol subcut ACHS Protocol: 4. Sliding Scale Insulin High-Med Dosing Condition: 150-199 mg/dl = 2 units Condition: 200-259 mg/dl = 4 units Condition: 260-324 mg/dl = 6 units Condition: 325-374 mg/dl = 8 units Condition: 375-409 mg/dl = 10 units Condition: 410-449 mg/dl = 11 units Condition: Greater than 449 call physician Protocol Text: - Use for Total Daily Dose of Insulin 56-80 units - Patient who are insulin resistant or septic HIGH MEDIUM DOSING ALGORITHM furosemide 40 mg tablet 40 mg PO DAILY PRN (Reason: weight gain) Rx Instructions: PRN for fluid overload/SOB/weight gain of 2lbs in 1 day/Gain of 5lbs in 1 week sennosides [senna] 8.6 mg tablet 8.6 mg PO DAILY albuterol sulfate 2.5 mg /3 mL (0.083 %) solution for nebulization 2.5 mg inhalation Q4H PRN (Reason: shortness of breath or wheezing) calcium carbonate-vitamin D3 600 mg-10 mcg (400 unit) capsule 1 cap PO DAILY insulin glargine [Lantus Solostar U-100 Insulin] 100 unit/mL (3 mL) insulin pen 8 unit SC QPM insulin lispro [Humalog KwikPen Insulin] 100 unit/mL insulin pen 6 unit subcut TIDAC amlodipine 5 mg tablet 10 mg PO DAILY gabapentin 100 mg capsule 300 mg PO TIDCM sertraline 50 mg tablet 50 mg PO DAILY Qty: 90 2RF pantoprazole 40 mg tablet,delayed release (DR/EC) 40 mg PO DAILY Qty: 90 0RF acetaminophen 325 mg Tablet 650 mg PO Q4H PRN PRN (Reason: Fever, pain 1-01/20) Qty: 0 0RF Pureflow B 2k Dialysis Soln 6 bag perfusion UD Qty: 0 0RF ferrous sulfate 325 mg (65 mg iron) tablet 325 mg PO DAILY Qty: 90 1RF (DME) Mepilex 4 X 4 bandage See Rx Instructions .Route Qty: 5 2RF Rx Instructions: As directed atorvastatin 40 mg tablet 40 mg PO DAILY Qty: 90 1RF Renal Caps 1 mg capsule 1 cap PO DAILY Qty: 90 1RF Referrals / Follow Up: Cesar Keenan MD [Primary Care Provider] - Disposition Disposition (needs filled in before D/C Order can be placed): Home, Self Care
[2023-03-02] MEDS: Cefazolin 2 GM in 0.9% Normal Saline (100mL Bag) 100 ML IV (07:28)
[2023-03-02 07:43] LABS: Bedside Glucose 155 mg/dL (74-106)
[2023-03-02] MEDS: Heparin Injection (Vial) 5,000 UNIT/ML VIAL 5000 UNIT (08:16)
[2023-03-02] MEDS: Bupivacaine Mpf 0.5% 30 ML VIAL (08:39)
[2023-03-02] MEDS: Lidocaine 1% (30 ml sdv) 30 ML Vial (08:39)
--- NOTE | 2023-03-02 08:40 | OP.PCM_ITS ---
Report of Operation Date of Procedure: 03/02/23 Pre-Operative Diagnosis: Need for arteriovenous hemodialysis access Post-Operative Diagnosis: Same Surgery/Procedure Performed:: Left upper extremity brachial cephalic arteriovenous hemodialysis fistula creation Description of Surgical Findings:: Timeout informed consent was obtained. 77-year-old gentleman was taken to the operating placed on the table underwent monitored anesthesia care. Ancef 2 g were given intravenously. The left upper extremity was sterilely prepped and draped. 1% lidocaine mixed 50-50 with 0.5% Marcaine was used as a local anesthetic. Throughout the procedure a total of 90 cc was used. Ultrasound had been used to map the course of the cephalic vein. Local was instilled. An oblique incision was made just proximal to the antecubital crease. Sharp and blunt dissection was used to identify the cephalic vein. It was dissected free distally and then proximally. It then was ink marked on the anterior surface. Sharp and blunt dissection was used to identify the brachial artery. Circumferential control of the vessel loop placed. Weight-based the patient received 6000 units of heparin intravenously. After adequate circulation time the vein was ligated distally with a 3-0 Vicryl. The vein then was irrigated and was gently dilated with the Jeffry dilators to 4-1/2. The artery is 6 vascular clamp proximally and distally and 11 blade was used to make an arteriotomy which was extended with Eddy scissors. A end-to-side venous to arterial anastomosis was created with a running 7-0 Prolene. At the completion hemostasis mostly intact couple repair stitches at the heel required of 7-0 Prolene. Was an excellent thrill. Patient had intact 2+ left radial and ulnar pulses. The wound was closed with a deep layer of interrupted 3-0 Vicryl subde rmal stitches and then a running subicular 4-0 Monocryl. Steri-Strips Telfa tape dressings applied. Sponge and instrument and needle counts were reported to the surgeon to be correct. Specimens none. Drains none. Blood loss 30 cc. The patient was taken to the recovery room in satisfactory addition without apparent complication Shine Lassiter M.D., F.A.C.S. Surgeon: Shine Lassiter Type of Anesthesia: Local MAC Anesthesiologist: Channing Kearney
== END 2023-03-02 10:47 | disposition home or self-care (01) ==
LOC: SDC 05:48 → AC 05:59
PROVIDERS: PCP Internal Medicine; Visit Provider Surgery
PROC: (CPT 36821; principal; 2023-03-02 07:15)
DX: I13.2 Hypertensive heart and chronic kidney disease with heart failure and with stage 5 chronic kidney disease, or end stage renal disease (principal); Z99.2 Dependence on renal dialysis; J44.9 Chronic obstructive pulmonary disease, unspecified; I50.22 Chronic systolic (congestive) heart failure; E10.22 Type 1 diabetes mellitus with diabetic chronic kidney disease; N18.6 End stage renal disease; Z79.4 Long term (current) use of insulin; E78.2 Mixed hyperlipidemia; I25.10 Atherosclerotic heart disease of native coronary artery without angina pectoris; I25.2 Old myocardial infarction; G47.30 Sleep apnea, unspecified; Z79.899 Other long term (current) drug therapy; Z79.82 Long term (current) use of aspirin; Z87.891 Personal history of nicotine dependence
CPT/HCPCS: 36821; 01844; 82962; A4648; J7040; J2405

== ENCOUNTER → 2023-03-19 | Outpatient (CLI) | payer MEDICARE, OTHER, SELFPAY ==
--- NOTE | 2023-03-19 07:57 | ECHOL_ITS ---
Reason For Study: Evaluate EF and post hospitalization Procedure This was a limited 2D transthoracic echocardiogram. Exam performed in department. Left Ventricle Mild concentric left ventricular hypertrophy. Normal LV size. The left ventricular ejection fraction is 50 %. Unable to assess diastolic function based on available data. Right Ventricle Normal right ventricle. Atria The left atrium is moderately enlarged. Normal right atrium. Mitral Valve Mild mitral annular calcification. Trivial mitral valve insufficiency. Tricuspid Valve Normal tricuspid valve. Aortic Valve Moderate diffuse aortic valve calcification. Moderate aortic stenosis. Pulmonic Valve The pulmonic valve is not well visualized. Great Vessels The aortic root is not well visualized. Pericardium/Pleural No pericardial effusion. MMode/2D Measurements & Calculations LVIDd: 5.0 cm IVSd: 1.2 cm LVOT diam: 2.2 cm LVIDs: 3.6 cm LVPWd: 1.2 cm LVOT area: 3.8 cm2 FS: 28.4 % LA dimension: 4.4 cm LVAd ap4: 36.3 cm2 LVAd ap2: 32.8 cm2 LVLd ap4: 8.5 cm LVLd ap2: 8.4 cm EDV(MOD-sp4): 124.7 ml EDV(MOD-sp2): 105.4 ml EDV(sp4-el): 132.3 ml EDV(sp2-el): 108.8 ml LVAs ap4: 25.0 cm2 LVAs ap2: 22.2 cm2 LVLs ap4: 6.9 cm LVLs ap2: 7.8 cm ESV(MOD-sp4): 72.8 ml ESV(MOD-sp2): 53.5 ml ESV(sp4-el): 77.4 ml ESV(sp2-el): 53.5 ml EF(MOD-sp4): 41.7 % EF(MOD-sp2): 49.2 % EF(sp4-el): 41.5 % SV(MOD-sp4): 52.0 ml SV(MOD-sp2): 51.8 ml SV(sp4-el): 54.9 ml Time Measurements MV dec time: 0.25 sec Doppler Measurements & Calculations MV E max moo: 70.6 cm/sec Lat Peak E' Moo: 5.3 cm/sec Med Peak E' Moo: 6.0 cm/sec MV A max moo: 91.0 cm/sec E/E' lat: 13.2 E/E' med: 11.7 MV E/A: 0.78 MV dec slope: 287.2 cm/sec2 Ao V2 max: 307.0 cm/sec LV V1 max: 77.0 cm/sec Ao max P.8 mmHg LV V1 max P.4 mmHg Ao V2 mean: 214.6 cm/sec LV V1 mean P.3 mmHg Ao mean P.1 mmHg LV V1 mean: 53.6 cm/sec Ao V2 VTI: 85.9 cm LV V1 VTI: 22.6 cm AV (velocity ratio): 0.26 SANDEEP(I,D): 0.99 cm2 SANDEEP(V,D): 0.94 cm2 SV(LVOT): 85.0 ml ECHO/Echo, Limited Study Interpretation Summary The left ventricular ejection fraction is 50 - 55 %. The left atrium is moderately enlarged. Moderate diffuse aortic valve calcification. Moderate aortic stenosis. Ordering Physician: Hamzah Olvera Referring Physician: Cesar Keenan Performed By: Sherwin Drake RCS
== END | disposition home or self-care (01) ==
LOC: CVS 07:57
PROVIDERS: PCP Internal Medicine; Referring Provider Nurse Practitioner Family; Visit Provider Nurse Practitioner Family
DX: I35.0 Nonrheumatic aortic (valve) stenosis (principal); I25.10 Atherosclerotic heart disease of native coronary artery without angina pectoris
CPT/HCPCS: 93308

== ENCOUNTER → 2023-03-20 | Outpatient (CLI) | payer MEDICARE, OTHER, SELFPAY ==
[2023-03-20 12:44] LABS: Absolute Lymphocyte Count 0.84 X10^3/uL (0.83-4.51); Absolute Neutrophil Count 2.1 X10^3/uL (2.0-7.7); Basophil# 0.02 X10^3/uL; Basophil% 0.6 % (0-1); Eosinophil# 0.14 X10^3/uL; Hematocrit 36.5 % (40-54); Hemoglobin 11.4 g/dL (13.0-16.5); Lymphocyte # 0.84 X10^3/ul (0.83-4.51); Lymphocyte % 24.3 % (19-41); Mean Corp Hgb Conc 31.2 g/dL (32-36); Mean Corpuscular Hgb 27.7 pg (27.0-32.0); Mean Corpuscular Volume 88.8 fL (80-94); Mean Platelet Vol. 10.1 fl (6.2-12.0); Monocyte# 0.32 X10^3/uL; Monocyte% 9.2 % (0-10); NRBC Flagged by Analyzer 0 % (0-5); Neutrophil # 2.13 X10^3/uL (2.7-7.7); Neutrophil % 61.6 % (47-70); Platelet Count 266 K/mm3 (150-450); RBC Distribution Width CV 13.6 % (11.6-14.6); RBC Distribution Width SD 43.4 fl (35.1-43.9); Red Blood Count 4.11 M/mm3 (4.6-6.2); White Blood Count 3.5 K/mm3 (4.4-11.0)
[2023-03-20 13:53] LABS: AST(SGOT) 24 U/L (15-37); Alanine Aminotransfer ALT/SGPT 28 U/L (16-61); Albumin, Serum 3.3 g/dL (3.2-5.0); Alkaline Phosphatase 123 U/L (45-117); Bilirubin, Direct 0.08 mg/dL (0.00-0.30); Cholesterol 122 mg/dL (200); High Density Lipoprotein 46 mg/dL; Protein, Total 7.3 g/dL (6.4-8.2); Triglycerides 154 mg/dL; Very Low Density Lipoprotein 31 mg/dL (5-40)
[2023-03-20 13:56] LABS: Anion Gap 7 (5-15); BUN 30 mg/dL (7-18); BUN/Creat Ratio 9.4 RATIO (10-20); Calcium,Total 8.6 mg/dL (8.5-10.1); Chloride 96 mmol/L (98-107); Creatinine, Serum 3.19 mg/dL (0.70-1.30); EST Glomerular Filtration Rate 20 mL/min (>60); Est Glom Filt Rate - Afr Amer 24 mL/min (>60); Glucose 323 mg/dL (74-106); Potassium 3.8 mmol/L (3.5-5.1); Sodium Level 136 mmol/L (136-145)
[2023-03-20 14:33] LABS: Mucous, Urine 0 SEEN /hpf (<or=2+); Red Blood Cells-Urine 0 SEEN /hpf (0-5)
[2023-03-20 16:20] LABS: Color, Urine Yellow (Yellow); Glucose, Dipstick 100 mg/dl (Normal); Ketone-Dipstick 5 mg/dl (Negative); Leukocyte Esterase-Dipstick 25 /ul (Negative); Nitrite-Dipstick Negative (Negative); Occult Blood-Urine Negative /ul (Negative); Protein-Dipstick 500 mg/dl (Negative); Specific Gravity, Urine 1.025 (1.002-1.030); Urine Clarity Cloudy (Clear); Urine Urobilinogen Normal (Normal)
[2023-03-20 16:22] LABS: Urine Bilirubin Dipstick 1 mg/dL (Negative)
[2023-03-20 16:35] LABS: Squamous Epithelial Cells - UA 0-5 SEEN /hpf (0-5); White Blood Cells 0-5 SEEN /hpf (0-5)
[2023-03-20 16:38] LABS: Bacteria 1+ /hpf (None Seen); Fine Granular Cast- Urine 5-10 SEEN /lpf (0-5)
[2023-03-20 16:39] LABS: Hyaline Cast 25-50 SEEN /lpf (0-5)
== END | disposition home or self-care (01) ==
LOC: BIMLAB 11:41
PROVIDERS: Nurse Practitioner Family; PCP Internal Medicine; Referring Provider Internal Medicine; Visit Provider Internal Medicine
DX: N18.9 Chronic kidney disease, unspecified (principal); E78.00 Pure hypercholesterolemia, unspecified
CPT/HCPCS: 36415; 80048; 80061; 80076; 81001; 85025

== ENCOUNTER → 2023-06-08 | Outpatient (CLI) | payer MEDICARE, OTHER, SELFPAY ==
--- NOTE | 2023-06-08 07:45 | CT_ITS ---
STUDY: LOW DOSE CT LUNG CANCER SCREENING REASON FOR EXAM: Male, 77 years old. H/o Tobacco Dependency. Patient smoked 1 pack per day for 64 years. RADIATION DOSAGE (If Supplied By Facility): CTDIvol = ( 2.01 ) mGy, DLP = ( 64.44 ) mGycm TECHNIQUE: No contrast was administered. Low dose technique was utilized (average mAS-38 and kVp 120). 1.25 mm axial source images with a slice interval of 1.25-mm were reconstructed in lung windows. 2.5 mm axial source images with a slice interval of 2.5-mm were reconstructed in lung windows. 5.0 mm axial source images with a slice interval of 5.0-mm were reconstructed in soft tissue windows. COMPARISON: Comparison is made with prior study dated November 26, 2021. NODULES: Stable 6 mm calcified granuloma in the posterior aspect of the left upper lobe. Emphysema: Mild degree of emphysematous changes. Minimal bilateral pleural effusions with bibasilar atelectasis. Endobronchial lesion: None Aorta: Calcification of the aortic arch. CORONARY ARTERIES: Coronary artery calcification is seen. Heart: Unremarkable Pulmonary artery: Unremarkable Mediastinal nodes: Unremarkable Other chest and abdominal findings: CT/Low Dose CT Lung Screening IMPRESSION: Lung-RADS category 2 - Continue annual screening with LDCT in 12 months. IMPORTANT NOTES FOR USE: ACR Lung-RADS Version 1.1 Assessment Categories Release Date: 2018 Category: Coded 0-4 bases on nodule(s) with highest degree of suspicion. Negative screen is defined as categories 1 and 2; a positive screen is defined as categories 3 and 4. Category 3 and 4A nodules that are unchanged on interval CT should be coded as category 2, and individuals returned to screening in 12 months. Category 4X: Category 3 or 4 nodules with additional imaging findings that increase the suspicion of lung cancer, such as spiculation, GGN that doubles in size in 1 year, enlarged lymph notes, etc. Category Modifiers: S (significant finding unrelated to lung cancer) Electronically Signed: Elvis Green MD at 9:52 EST ,
--- NOTE | 2023-06-08 07:45 | CDU_ITS ---
Reason For Study: Lightheadedness Rt. Velocities/BP Lt. Velocities/BP Prox CCA 107.3/8.6 cm/sec. Prox CCA 70.2/8.7 cm/sec. Mid CCA 63.6/8.7 cm/sec. Mid CCA 75.7/10.9 cm/sec. Dist CCA 59.2/8.7 cm/sec. Dist CCA 73.2/5.1 cm/sec. Prox ICA 156.3/16.3 cm/sec. Prox ICA 127.1/21.7 cm/sec. Mid ICA 140.4/12.6 cm/sec. Mid ICA 94.3/14.1 cm/sec. Dist ICA 107.6/12.0 cm/sec. Dist ICA 149.0/19.5 cm/sec. Rt. ICA/CCA = 2.5. Lt. ICA/CCA = 2.0. Prox ECA 119.0/4.9 cm/sec. Prox ECA 109.5/6.4 cm/sec. Rt. Vert. 72.4/8.7 cm/sec. Lt. Vert. 76.8/10.7 cm/sec. Right Extracranial There is heterogeneous, irregular atherosclerotic plaque noted in the right common carotid artery. There is heterogeneous, irregular atherosclerotic plaque noted in the right internal carotid artery. The atherosclerotic plaque causes acoustic shadowing. There is heterogeneous, irregular atherosclerotic plaque noted in the right external carotid artery. The atherosclerotic plaque causes acoustic shadowing. Antegrade flow is noted in the right vertebral artery. Left Extracranial There is heterogeneous, irregular atherosclerotic plaque noted in the left common carotid artery. There is heterogeneous, irregular atherosclerotic plaque noted in the left internal carotid artery. The atherosclerotic plaque causes acoustic shadowing. There is heterogeneous, irregular atherosclerotic plaque noted in the left external carotid artery. The atherosclerotic plaque causes acoustic shadowing. Antegrade flow is noted in the left vertebral artery. Procedure Carotid Duplex 30811. This is a Carotid Duplex examination using B-mode, color flow and specral Doppler. The exam was of fair technical quality due to acoustic shadowing. Exam performed in department. VL/Carotid Duplex Ultrasound Interpretation Summary Moderate (50-69%) stenosis right extracranial internal carotid. Moderate (50-69%) stenosis left extracranial internal carotid. Patent and antegrade vertebrals bilaterally. Limited due to calcific shadowing bilateral, alternative imaging may be benefic ial Ordering Physician: Mega Baron Referring Physician: Emmanuelle Saldivar Performed By: Perfecto Wayne RVT
== END | disposition home or self-care (01) ==
LOC: CT 07:44
PROVIDERS: PCP Internal Medicine; Referring Provider Internal Medicine Cardiovascular Disease; Visit Provider Internal Medicine Cardiovascular Disease
DX: R42 Dizziness and giddiness (principal); I10 Essential (primary) hypertension; M54.2 Cervicalgia; G89.29 Other chronic pain; F17.210 Nicotine dependence, cigarettes, uncomplicated
CPT/HCPCS: 71271; 93880

== ENCOUNTER → 2023-08-05 | Outpatient (CLI) | payer MEDICARE, OTHER, SELFPAY ==
--- NOTE | 2023-08-05 08:23 | CT_ITS ---
STUDY: CTA HEAD AND NECK WITH CONTRAST REASON FOR EXAM: Male, 77 years old. Carotid artery stenosis RADIATION DOSAGE (If Supplied By Facility): CTDIvol = ( 16.53 ) mGy, DLP = ( 498.10 ) mGycm TECHNIQUE: CT angiography was performed with a multi-detector CT scanner. Data acquisition was obtained from the skull base through the vertex following intravenous administration of IV 100mL [id number]-370. MIP images were reconstructed from the axial data set. Post-processing of the angiographic images was performed, with multiplanar reformation and 3D reconstruction. Individualized dose optimization techniques were used for this CT. COMPARISON: No relevant priors. FINDINGS: Normal bilateral petrous carotid arteries. There is calcified plaque formation of the right cavernous carotid artery, without a cross-sectional luminal stenosis. There is calcified plaque formation of the left cavernous carotid artery, without a cross-sectional luminal stenosis. Normal right A1 segments of the anterior cerebral artery. Normal left A1 segments of the anterior cerebral artery. Normal intact anterior communicating artery (ACOM). Normal bilateral A2 segments of the anterior cerebral arteries. Normal right M1 and M2 segments of the middle cerebral arteries, with a normal M1 bifurcation. Normal left M1 and M2 segments of the middle cerebral arteries, with a normal M1 bifurcation. Normal right posterior communicating artery (PCOM). There is a persistent origin of the left posterior cerebral artery with absence of the posterior communicating artery (PCOM). Normal bilateral vertebral arteries. Normal basilar artery with a normal basilar bifurcation. The visualized bilateral superior cerebellar (SCA) arteries are normal. Normal bilateral P1, P2 and visualized P3 segments of the posterior cerebral arteries. There is no demonstrated aneurysm of the tetlin of [place]. AORTIC ARCH: There is atherosclerotic calcific plaque formation of the aortic arch and great vessels arising from the aortic arch, without a hemodynamically significant stenosis. There is a normal origin of the brachiocephalic, left common carotid, and left subclavian arteries. Atherosclerotic calcification of the left subclavian artery and right brachiocephalic artery. RIGHT CAROTID ARTERIES: There is atherosclerotic plaque formation of the common carotid artery, but without a hemodynamically significant stenosis. Normal right common carotid bulb. There is extensive atherosclerotic plaque formation of the origin of the right internal carotid artery with an estimated stenosis of greater than 70%. Normal visualized cervical portion of the right internal carotid artery. Normal origin of the right external carotid artery (ECA). LEFT CAROTID ARTERIES: There is atherosclerotic plaque formation of the common carotid artery, but without a hemodynamically significant stenosis. Normal left common carotid bulb. There is moderate atherosclerotic plaque formation of the origin of the left internal carotid artery with an estimated stenosis of 50-69% stenosis. Normal visualized cervical portion of the left internal carotid artery. Normal origin of the left external carotid artery (ECA). VERTEBRAL ARTERIES: Normal bilateral vertebral arteries. CT/CTA Head AND Neck W/ Contrast IMPRESSION: Calcific plaques at the origin of the right internal carotid artery causing greater than 70% stenosis. Scattered calcified plaques in the right common carotid artery. Calcified plaques at the origin of the left internal carotid artery causing between 50 and 69% stenosis. Electronically Signed: Elvis Green MD at 11:13 EDT ,
[2023-08-05 08:51] LABS: CREATININE FINGERSTICK 1.7 mg/dL (0.70-1.30)
== END | disposition home or self-care (01) ==
LOC: CT 08:23
PROVIDERS: PCP Internal Medicine; Referring Provider Physician Assistant; Visit Provider Physician Assistant
DX: I65.29 Occlusion and stenosis of unspecified carotid artery (principal)
CPT/HCPCS: 70496; 70498; Q9967

== ENCOUNTER → 2023-08-18 | Outpatient (CLI) | payer MEDICARE, OTHER, SELFPAY ==
[2023-08-18 17:51] LABS: Cholesterol 140 mg/dL (200); High Density Lipoprotein 60 mg/dL; Thyroid Stim Hormone (TSH) 6.29 uIU/mL (0.358-3.74); Triglycerides 104 mg/dL; Very Low Density Lipoprotein 21 mg/dL (5-40)
[2023-08-18 18:05] LABS: Vitamin D,25 Hydroxy 101.6 ng/mL
== END | disposition home or self-care (01) ==
LOC: MTLAB 16:08
PROVIDERS: PCP Internal Medicine; Referring Provider Nurse Practitioner Family; Visit Provider Nurse Practitioner Family
DX: N18.6 End stage renal disease (principal); R53.81 Other malaise
CPT/HCPCS: 36415; 80061; 82306; 84443

== ENCOUNTER → 2023-11-30 | Outpatient (CLI) | payer MEDICARE, OTHER, SELFPAY ==
[2023-11-30 12:34] LABS: Absolute Lymphocyte Count 0.83 X10^3/uL (0.83-4.51); Absolute Neutrophil Count 3.1 X10^3/uL (2.0-7.7); Basophil# 0.04 X10^3/uL; Basophil% 0.9 % (0-1); Eosinophil# 0.15 X10^3/uL; Eosinophils% 3.3 % (0-5); Hematocrit 36.6 % (40-54); Hemoglobin 11.7 g/dL (13.0-16.5); Lymphocyte # 0.83 X10^3/ul (0.83-4.51); Lymphocyte % 18.5 % (19-41); Mean Corpuscular Hgb 31.8 pg (27.0-32.0); Mean Corpuscular Volume 99.5 fL (80-94); Mean Platelet Vol. 10.7 fl (6.2-12.0); Monocyte% 8.9 % (0-10); NRBC Flagged by Analyzer 0 % (0-5); Neutrophil # 3.06 X10^3/uL (2.7-7.7); Neutrophil % 68.2 % (47-70); Platelet Count 313 K/mm3 (150-450); RBC Distribution Width CV 14.3 % (11.6-14.6); RBC Distribution Width SD 46.7 fl (35.1-43.9); Red Blood Count 3.68 M/mm3 (4.6-6.2); White Blood Count 4.5 K/mm3 (4.4-11.0)
[2023-11-30 12:49] LABS: ALB/GLOB Ratio 0.9 RATIO (0.9-2.4); AST(SGOT) 28 U/L (15-37); Alanine Aminotransfer ALT/SGPT 42 U/L (16-61); Albumin, Serum 3.1 g/dL (3.2-5.0); Alkaline Phosphatase 142 U/L (45-117); Anion Gap 8 (5-15); BUN 50 mg/dL (7-18); BUN/Creat Ratio 13.4 RATIO (10-20); Calcium,Total 8.3 mg/dL (8.5-10.1); Chloride 100 mmol/L (98-107); Cholesterol 115 mg/dL (200); Creatinine, Serum 3.74 mg/dL (0.70-1.30); EST Glomerular Filtration Rate 17 mL/min (>60); Est Glom Filt Rate - Afr Amer 20 mL/min (>60); Globulin 3.6 g/dL (2.2-4.2); Glucose 291 mg/dL (74-106); High Density Lipoprotein 49 mg/dL; Potassium 4.4 mmol/L (3.5-5.1); Protein, Total 6.7 g/dL (6.4-8.2); Sodium Level 136 mmol/L (136-145); Triglycerides 101 mg/dL; Very Low Density Lipoprotein 20 mg/dL (5-40)
[2023-12-01 11:09] LABS: Thyroid Peroxidase AB < 9 IU/mL (0-34)
== END | disposition home or self-care (01) ==
LOC: BIMLAB 08:58
PROVIDERS: Internal Medicine Cardiovascular Disease; Nurse Practitioner Family; PCP Internal Medicine; Referring Provider Internal Medicine; Visit Provider Internal Medicine
DX: I10 Essential (primary) hypertension (principal); R79.89 Other specified abnormal findings of blood chemistry; E78.2 Mixed hyperlipidemia
CPT/HCPCS: 80053; 80061; 82248; 84443; 85025; 86376

== ENCOUNTER 2024-02-24 20:57 | Inpatient (IN) | payer MEDICARE, OTHER, SELFPAY ==
[2024-02-24 20:58] VITALS: BP 208/75; PULSE 85; RESP 19; TEMP 36.8; O2SAT 93; BMI 20.5
[2024-02-24] MEDS: Morphine 4 MG/ML Syringe IV (21:39)
[2024-02-24] MEDS: Ondansetron 4 MG/2 ML Vial IV (21:39)
[2024-02-24 21:55] LABS: Absolute Lymphocyte Count 0.92 X10^3/uL (0.83-4.51); Absolute Neutrophil Count 8.8 X10^3/uL (2.0-7.7); Basophil# 0.05 X10^3/uL; Basophil% 0.5 % (0-1); Eosinophil# 0.11 X10^3/uL; Hematocrit 30.1 % (40-54); Hemoglobin 10.2 g/dL (13.0-16.5); Lymphocyte # 0.92 X10^3/ul (0.83-4.51); Lymphocyte % 8.4 % (19-41); Mean Corp Hgb Conc 33.9 g/dL (32-36); Mean Corpuscular Hgb 32.8 pg (27.0-32.0); Mean Corpuscular Volume 96.8 fL (80-94); Mean Platelet Vol. 10.4 fl (6.2-12.0); Monocyte# 0.84 X10^3/uL; Monocyte% 7.7 % (0-10); NRBC Flagged by Analyzer 0 % (0-5); Neutrophil # 8.82 X10^3/uL (2.7-7.7); Platelet Count 299 K/mm3 (150-450); RBC Distribution Width CV 13.8 % (11.6-14.6); RBC Distribution Width SD 47.7 fl (35.1-43.9); Red Blood Count 3.11 M/mm3 (4.6-6.2); White Blood Count 10.9 K/mm3 (4.4-11.0)
[2024-02-24 22:25] LABS: Anion Gap 10 (5-15); BUN 45 mg/dL (7-18); BUN/Creat Ratio 11.8 RATIO (10-20); Calcium,Total 8.4 mg/dL (8.5-10.1); Chloride 94 mmol/L (98-107); EST Glomerular Filtration Rate 16 mL/min (>60); Est Glom Filt Rate - Afr Amer 20 mL/min (>60); Estimated Creatinine Clearance 13.07 ml/min; Glucose 455 mg/dL (74-106); Potassium 4.1 mmol/L (3.5-5.1); Sodium Level 133 mmol/L (136-145)
[2024-02-24 22:55] VITALS: BP 157/56; PULSE 65; RESP 18; TEMP 36.6; O2SAT 99
[2024-02-24 23:27] LABS: Magnesium 2.1 mg/dL (1.6-2.6)
[2024-02-25] VITALS (29 sets, daily range): BP systolic 126–235; BP diastolic 45–97; PULSE 60–85; RESP 14–18; TEMP 36.3–37.6; O2SAT 86–99; BMI 18.6; BMI 19.5; BMI 18.8
[2024-02-25] MEDS: Insulin Glargine-YFGN 100 UNIT/ML Pen 8 UNIT SC ×2 (00:39→22:49)
[2024-02-25 00:56] LABS: Bedside Glucose 388 mg/dL (74-106)
[2024-02-25 01:41] LABS: Troponin-I HS 42 pg/mL (3.0-78.0)
[2024-02-25 03:24] LABS: Troponin-I HS 51 pg/mL (3.0-78.0)
[2024-02-25] MEDS: amLODIPine 5 MG Tablet PO (06:38)
[2024-02-25] MEDS: Metoprolol Tartrate 25 MG Tablet PO (06:38)
[2024-02-25] MEDS: cloNIDine HCl 0.1 MG Tablet PO ×2 (06:39→22:49)
[2024-02-25] MEDS: Insulin Lispro 100 UNIT/ML INSULN.PEN SC ×2 (06:58→22:34)
[2024-02-25 07:05] LABS: Bedside Glucose 319 mg/dL (74-106)
[2024-02-25] MEDS: Budesonide Respules 0.5 MG/2 ML AMPUL.NEB. INHALATION (07:08)
[2024-02-25 07:15] LABS: Absolute Lymphocyte Count 0.85 X10^3/uL (0.83-4.51); Absolute Neutrophil Count 8.9 X10^3/uL (2.0-7.7); Basophil# 0.03 X10^3/uL; Basophil% 0.3 % (0-1); Eosinophil# 0.16 X10^3/uL; Eosinophils% 1.5 % (0-5); Hemoglobin 9.6 g/dL (13.0-16.5); Lymphocyte # 0.85 X10^3/ul (0.83-4.51); Lymphocyte % 7.8 % (19-41); Mean Corp Hgb Conc 34.3 g/dL (32-36); Mean Corpuscular Volume 96.2 fL (80-94); Mean Platelet Vol. 10.2 fl (6.2-12.0); Monocyte# 0.83 X10^3/uL; Monocyte% 7.7 % (0-10); NRBC Flagged by Analyzer 0 % (0-5); Neutrophil % 82.1 % (47-70); Platelet Count 271 K/mm3 (150-450); RBC Distribution Width CV 13.9 % (11.6-14.6); RBC Distribution Width SD 47.4 fl (35.1-43.9); Red Blood Count 2.91 M/mm3 (4.6-6.2); White Blood Count 10.8 K/mm3 (4.4-11.0)
[2024-02-25 07:42] LABS: Partial Thromboplast Time 27.1 Seconds (24.1-36.2)
[2024-02-25 07:53] LABS: ALB/GLOB Ratio 0.9 RATIO (0.9-2.4); AST(SGOT) 23 U/L (15-37); Alanine Aminotransfer ALT/SGPT 34 U/L (16-61); Albumin, Serum 2.8 g/dL (3.2-5.0); Alkaline Phosphatase 130 U/L (45-117); Anion Gap 6 (5-15); BUN 47 mg/dL (7-18); BUN/Creat Ratio 12.5 RATIO (10-20); Calcium,Total 8.3 mg/dL (8.5-10.1); Chloride 96 mmol/L (98-107); Creatinine, Serum 3.77 mg/dL (0.70-1.30); EST Glomerular Filtration Rate 17 mL/min (>60); Est Glom Filt Rate - Afr Amer 20 mL/min (>60); Estimated Creatinine Clearance 11.94 ml/min; Glucose 344 mg/dL (74-106); Potassium 4.9 mmol/L (3.5-5.1); Protein, Total 5.8 g/dL (6.4-8.2); Sodium Level 135 mmol/L (136-145); Troponin-I HS 63 pg/mL (3.0-78.0)
[2024-02-25] MEDS: 0.9% Normal Saline 1,000 ML IV.SOLN. 1000 ML OPERA.SITE (08:45)
[2024-02-25] MEDS: PureFlow B 3K Dialysis Soln 1 BAG 6 BAG PF (08:45)
[2024-02-25] MEDS: Morphine 4 MG/ML Syringe IV ×2 (09:35→11:55)
[2024-02-25 10:04] LABS: Hemoglobin A1c 8.6 % (3.8-5.6)
[2024-02-25] MEDS: hydrALAZINE 20 MG/ML Vial 10 MG IV (12:01)
[2024-02-25 12:05] LABS: Bedside Glucose 199 mg/dL (74-106)
[2024-02-25] MEDS: 0.9% Normal Saline (1000mL) 1,000 ML 15 ML IV (13:52)
[2024-02-25] MEDS: Cefazolin 2 GM in Syringe IV (15:43)
[2024-02-25] MEDS: TXA 1000mg in NS100 100ml (IVPB at Incision) 660 MG IV (16:00)
[2024-02-25] MEDS: TXA 1000mg in NS100 100ml (IVPB at Closure) 660 MG IV (17:36)
[2024-02-25] MEDS: JPS (Morphine 10mg/ml) OPERA.SITE (17:44)
[2024-02-25 19:53] LABS: Bedside Glucose 345 mg/dL (74-106)
[2024-02-25] MEDS: Lidocaine Jelly 2% 20 ML Syringe (URO-JET) 1 APPLIC TOPICAL (22:46)
[2024-02-25] MEDS: Senna/Docusate Sodium 1 Tablet 2 TABLET PO (22:49)
[2024-02-25] MEDS: Atorvastatin Calcium 40 MG Tablet PO (22:49)
[2024-02-25] MEDS: Pantoprazole Sodium 40 MG Tablet PO (22:49)
[2024-02-25] MEDS: Gabapentin 300 MG Capsule PO (22:49)
[2024-02-26] VITALS (7 sets, daily range): BP systolic 104–121; BP diastolic 40–58; PULSE 62–78; RESP 16–18; TEMP 36.6–37.2; O2SAT 84–96; BMI 19.5
[2024-02-26] LABS: Bedside Glucose 411 mg/dL (74-106)
[2024-02-26] MEDS: APIXABAN 2.5 MG TABLET (WCH) PO ×3 (00:20→21:50)
[2024-02-26] MEDS: Gabapentin 300 MG Capsule PO ×2 (05:53→09:45)
[2024-02-26 06:13] LABS: Bedside Glucose 86 mg/dL (74-106)
[2024-02-26 06:15] LABS: Hematocrit 25.9 % (40-54); Hemoglobin 8.3 g/dL (13.0-16.5); Mean Corpuscular Hgb 32.7 pg (27.0-32.0); Mean Platelet Vol. 10.5 fl (6.2-12.0); Platelet Count 232 K/mm3 (150-450); RBC Distribution Width CV 14.7 % (11.6-14.6); RBC Distribution Width SD 53.1 fl (35.1-43.9); Red Blood Count 2.54 M/mm3 (4.6-6.2); White Blood Count 12.2 K/mm3 (4.4-11.0)
[2024-02-26 06:50] LABS: Anion Gap 4 (5-15); BUN 34 mg/dL (7-18); BUN/Creat Ratio 10.2 RATIO (10-20); Calcium,Total 7.9 mg/dL (8.5-10.1); Chloride 104 mmol/L (98-107); Creatinine, Serum 3.32 mg/dL (0.70-1.30); EST Glomerular Filtration Rate 19 mL/min (>60); Est Glom Filt Rate - Afr Amer 23 mL/min (>60); Estimated Creatinine Clearance 14.18 ml/min; Glucose 92 mg/dL (74-106); Potassium 4.8 mmol/L (3.5-5.1); Sodium Level 138 mmol/L (136-145)
[2024-02-26] MEDS: cloNIDine HCl 0.1 MG Tablet PO ×2 (09:30→21:50)
[2024-02-26] MEDS: amLODIPine 5 MG Tablet PO (09:30)
[2024-02-26] MEDS: Aspirin E.C. 81 MG Tablet PO (09:31)
[2024-02-26] MEDS: Pantoprazole Sodium 40 MG Tablet PO ×2 (09:31→21:49)
[2024-02-26] MEDS: Furosemide 40 MG Tablet PO (09:31)
[2024-02-26] MEDS: Tamsulosin HCl 0.4 MG Capsule PO (09:31)
[2024-02-26] MEDS: Sertraline 50 MG Tablet PO (09:31)
[2024-02-26] MEDS: Senna/Docusate Sodium 1 Tablet 2 TABLET PO ×2 (09:31→21:50)
[2024-02-26] MEDS: Finasteride 5 MG Tablet PO (09:32)
[2024-02-26] MEDS: Insulin Lispro 100 UNIT/ML INSULN.PEN 6 UNIT SC ×2 (09:32→14:51)
[2024-02-26] MEDS: Calcium Carbonate 500 MG Tablet PO ×2 (09:45→17:15)
[2024-02-26] MEDS: Cholecalciferol (VIT D3) 25 MCG TABLET (1,000 UNITS) PO (11:38)
[2024-02-26 12:01] LABS: Bedside Glucose 104 mg/dL (74-106)
[2024-02-26] MEDS: Insulin Lispro 100 UNIT/ML INSULN.PEN 8 UNIT SC (17:15)
[2024-02-26 17:44] LABS: Bedside Glucose 148 mg/dL (74-106)
[2024-02-26] MEDS: Morphine 4 MG/ML Syringe IV (20:26)
[2024-02-26] MEDS: 0.9% Saline Lock 10 ML Syringe IV (20:27)
[2024-02-26] MEDS: Atorvastatin Calcium 40 MG Tablet PO (21:49)
[2024-02-26] MEDS: Insulin Glargine-YFGN 100 UNIT/ML Pen 8 UNIT SC (21:50)
[2024-02-26 22:17] LABS: Bedside Glucose 149 mg/dL (74-106)
[2024-02-27] VITALS (17 sets, daily range): BP systolic 127–224; BP diastolic 49–78; PULSE 63–89; RESP 14–18; TEMP 35.9–37.2; O2SAT 88–98; BMI 19.5
[2024-02-27] MEDS: hydrALAZINE 20 MG/ML Vial 10 MG IV (03:24)
[2024-02-27 06:30] LABS: Hematocrit 22.6 % (40-54); Hemoglobin 7.3 g/dL (13.0-16.5); Mean Corp Hgb Conc 32.3 g/dL (32-36); Mean Corpuscular Volume 102.3 fL (80-94); Mean Platelet Vol. 11.1 fl (6.2-12.0); Platelet Count 212 K/mm3 (150-450); RBC Distribution Width CV 14.4 % (11.6-14.6); RBC Distribution Width SD 51.5 fl (35.1-43.9); Red Blood Count 2.21 M/mm3 (4.6-6.2); White Blood Count 10.4 K/mm3 (4.4-11.0)
[2024-02-27] MEDS: PureFlow B 2K Dialysis Soln 1 BAG 6 BAG PF (08:52)
[2024-02-27] MEDS: 0.9% Normal Saline 1,000 ML IV.SOLN. 1000 ML OPERA.SITE (08:52)
[2024-02-27] MEDS: 0.9% Saline Lock 10 ML Syringe IV (11:04)
[2024-02-27 11:22] LABS: Bedside Glucose 173 mg/dL (74-106)
[2024-02-27] MEDS: Insulin Lispro 100 UNIT/ML INSULN.PEN 6 UNIT SC (11:32)
[2024-02-27] MEDS: Senna/Docusate Sodium 1 Tablet 2 TABLET PO ×2 (11:32→21:25)
[2024-02-27] MEDS: Insulin Lispro 100 UNIT/ML INSULN.PEN SC ×3 (11:32→21:32)
[2024-02-27] MEDS: Gabapentin 300 MG Capsule PO (11:32)
[2024-02-27] MEDS: Cholecalciferol (VIT D3) 25 MCG TABLET (1,000 UNITS) PO (11:33)
[2024-02-27] MEDS: Finasteride 5 MG Tablet PO (11:33)
[2024-02-27] MEDS: Metoprolol Tartrate 25 MG Tablet PO (11:33)
[2024-02-27] MEDS: amLODIPine 5 MG Tablet PO (11:33)
[2024-02-27] MEDS: Furosemide 40 MG Tablet PO (11:34)
[2024-02-27] MEDS: Pantoprazole Sodium 40 MG Tablet PO ×2 (11:34→21:25)
[2024-02-27] MEDS: cloNIDine HCl 0.1 MG Tablet PO ×2 (11:34→21:24)
[2024-02-27] MEDS: Aspirin E.C. 81 MG Tablet PO (11:35)
[2024-02-27] MEDS: Tamsulosin HCl 0.4 MG Capsule PO (11:35)
[2024-02-27] MEDS: APIXABAN 2.5 MG TABLET (WCH) PO ×2 (11:35→21:24)
[2024-02-27] MEDS: Sertraline 50 MG Tablet PO (11:36)
[2024-02-27] MEDS: Calcium Carbonate 500 MG Tablet PO ×2 (11:36→17:20)
[2024-02-27 16:49] LABS: Bedside Glucose 366 mg/dL (74-106)
[2024-02-27] MEDS: Insulin Lispro 100 UNIT/ML INSULN.PEN 8 UNIT SC (17:20)
[2024-02-27] MEDS: oxyCODONE 5 MG Tablet PO (19:03)
[2024-02-27] MEDS: Acetaminophen 325 MG Tablet 650 MG PO (19:03)
[2024-02-27] MEDS: Atorvastatin Calcium 40 MG Tablet PO (21:25)
[2024-02-27] MEDS: Insulin Glargine-YFGN 100 UNIT/ML Pen 8 UNIT SC (21:31)
[2024-02-27 22:36] LABS: Bedside Glucose 252 mg/dL (74-106)
[2024-02-28] VITALS (7 sets, daily range): BP systolic 116–154; BP diastolic 52–61; PULSE 58–62; RESP 16; TEMP 36.2–36.8; O2SAT 90–94
[2024-02-28 05:44] LABS: Hematocrit 22.9 % (40-54); Hemoglobin 7.3 g/dL (13.0-16.5); Mean Corp Hgb Conc 31.9 g/dL (32-36); Mean Corpuscular Hgb 32.4 pg (27.0-32.0); Mean Corpuscular Volume 101.8 fL (80-94); Platelet Count 204 K/mm3 (150-450); RBC Distribution Width CV 14.5 % (11.6-14.6); RBC Distribution Width SD 52.9 fl (35.1-43.9); Red Blood Count 2.25 M/mm3 (4.6-6.2); White Blood Count 8.5 K/mm3 (4.4-11.0)
[2024-02-28 08:10] LABS: Bedside Glucose 165 mg/dL (74-106)
[2024-02-28] MEDS: Insulin Lispro 100 UNIT/ML INSULN.PEN SC (09:05)
[2024-02-28] MEDS: Insulin Lispro 100 UNIT/ML INSULN.PEN 6 UNIT SC (09:06)
[2024-02-28] MEDS: Calcium Carbonate 500 MG Tablet PO ×2 (09:07→12:27)
[2024-02-28] MEDS: cloNIDine HCl 0.1 MG Tablet PO (09:08)
[2024-02-28] MEDS: Aspirin E.C. 81 MG Tablet PO (09:08)
[2024-02-28] MEDS: Furosemide 40 MG Tablet PO (09:08)
[2024-02-28] MEDS: Finasteride 5 MG Tablet PO (09:08)
[2024-02-28] MEDS: Metoprolol Tartrate 25 MG Tablet PO (09:09)
[2024-02-28] MEDS: APIXABAN 2.5 MG TABLET (WCH) PO (09:09)
[2024-02-28] MEDS: amLODIPine 5 MG Tablet PO (09:09)
[2024-02-28] MEDS: Sertraline 50 MG Tablet PO (09:10)
[2024-02-28] MEDS: Pantoprazole Sodium 40 MG Tablet PO (09:10)
[2024-02-28] MEDS: Cholecalciferol (VIT D3) 25 MCG TABLET (1,000 UNITS) PO (09:10)
[2024-02-28] MEDS: Senna/Docusate Sodium 1 Tablet 2 TABLET PO (09:10)
[2024-02-28] MEDS: Tamsulosin HCl 0.4 MG Capsule PO (09:11)
[2024-02-28] MEDS: Gabapentin 300 MG Capsule PO (09:15)
[2024-02-28] MEDS: Sodium Ferric Gluconat 125 MG in 0.9% Normal Saline 100 ML 110 MG IV (09:45)
[2024-02-28] MEDS: 0.9% Saline Lock 10 ML Syringe IV (09:45)
[2024-02-28 12:09] LABS: Bedside Glucose 62 mg/dL (74-106)
[2024-02-28 12:42] LABS: Bedside Glucose 74 mg/dL (74-106)
== END 2024-02-28 13:26 | disposition skilled nursing facility (03) | DRG 521 ==
LOC: ED 22:41 → PCU 22:55
PROVIDERS: Anesthesiology; Orthopaedic Surgery Orthopaedic Surgery of the Spine; Student in an Organized Health Care Education/Training Program; Admitting Provider Family Medicine; Emergency Provider Emergency Medicine; PCP Internal Medicine; Visit Provider Internal Medicine
PROC: 0SRR0J9 Replacement of Right Hip Joint, Femoral Surface with Synthetic Substitute, Cemented, Open Approach (ICD-10-PCS; CPT 27125; principal; 2024-02-25 14:50)
DX: S72.001A Fracture of unspecified part of neck of right femur, initial encounter for closed fracture (principal); N18.6 End stage renal disease; I13.2 Hypertensive heart and chronic kidney disease with heart failure and with stage 5 chronic kidney disease, or end stage renal disease; I50.42 Chronic combined systolic (congestive) and diastolic (congestive) heart failure; D63.8 Anemia in other chronic diseases classified elsewhere; C61 Malignant neoplasm of prostate; E10.22 Type 1 diabetes mellitus with diabetic chronic kidney disease; D50.9 Iron deficiency anemia, unspecified; E10.42 Type 1 diabetes mellitus with diabetic polyneuropathy; J44.9 Chronic obstructive pulmonary disease, unspecified; I35.0 Nonrheumatic aortic (valve) stenosis; F32.A Depression, unspecified; M35.3 Polymyalgia rheumatica; I48.0 Paroxysmal atrial fibrillation; E10.65 Type 1 diabetes mellitus with hyperglycemia; E78.2 Mixed hyperlipidemia; G47.33 Obstructive sleep apnea (adult) (pediatric); I25.10 Atherosclerotic heart disease of native coronary artery without angina pectoris; F17.210 Nicotine dependence, cigarettes, uncomplicated; Z79.4 Long term (current) use of insulin; Z99.2 Dependence on renal dialysis; F41.8 Other specified anxiety disorders; K21.9 Gastro-esophageal reflux disease without esophagitis; E10.51 Type 1 diabetes mellitus with diabetic peripheral angiopathy without gangrene; W19.XXXA Unspecified fall, initial encounter; F41.9 Anxiety disorder, unspecified; Z80.0 Family history of malignant neoplasm of digestive organs; Z80.8 Family history of malignant neoplasm of other organs or systems; G89.29 Other chronic pain; R53.81 Other malaise; Z79.2 Long term (current) use of antibiotics; N13.9 Obstructive and reflux uropathy, unspecified; R31.9 Hematuria, unspecified
CPT/HCPCS: 36415; 71045; 73501; 73502; 73560; 80048; 80053; 82962; 83036; 83735; 84443; 84484; 85025; 85027; 85610; 85730; 86850; 86900; 86901; 88307; 88311; 90937; 93005; 93306; 97110; 97162; 97166; 97530; 99285; 99406; C1776; J7030; A4216; G0257; J2405; J2916

== ENCOUNTER 2024-02-29 10:28 | Inpatient (IN) | payer MEDICARE, OTHER, SELFPAY ==
[2024-02-29] VITALS (8 sets, daily range): BP systolic 119–150; BP diastolic 47–77; PULSE 55–70; RESP 16–21; TEMP 36.2–37.2; O2SAT 90–94; BMI 20.6; BMI 21.7
--- NOTE | 2024-02-29 10:45 | EX.ED.DYSGE1 ---
HPI History of Present Illness Chief Complaint: Hyperglycemia Detail of Chief Complaint: Altered mental status and elevated blood sugar Informant: patient, spouse/S.O. and SNF (Nurse practitioner Carmen Pickens contacted ER prior to arrival) Limited: stupor and other Onset/Context/Timing Onset: Today Context: Sudden Onset Timing: Continuous Quality: Altered mental status, anemia Location: Generalized Current Severity: Moderate Maximum Severity: Moderate Worsened by: Unknown Relieved by: Nothing Associated Symptoms Associated Symptoms: Respiratory symptoms Narrative Narrative: Patient is an 78-year-old male. He was admitted on February 23 for a right femoral neck fracture. He was operated on by Dr. Mccarthy. Patient presents because of elevated blood sugar, Wilder-Ruiz breathing and anemia. Last hemoglobin was 7.3. Patient is not awake or alert. He was when I saw him on the . He is disoriented to time, which is new as well. He does endorse postnasal drainage, sore throat and cough. Cough is nonproductive. He denies urologic symptoms. states his urine is clear for the first time. He did have blood with blood clots and required irrigation. Patient denies headache. Patient Nuys visual, ocular auditory symptoms. Patient Nuys chest pain, orthopnea or PND. Patient denies abdominal pain. He denies vomiting, diarrhea or constipation. Nuys black or maroon-colored stool. Patient had elevated blood sugar of approximately 600. He was treated with subcu insulin. Repeat blood sugar was near the mid 500 and received additional dose of insulin. He has not received any fluids prior to arrival. Prior similar symptoms: No Recent Illness/Hospitalization: Yes PFSH [facility] Medical History Fracture of femoral neck, right, open Carotid stenosis Anxiety and depression Carotid artery disease Lipohypertrophy due to insulin injection Dyslipidemia Carotid bruit Coronary artery disease Chronic neck pain Debility Cancer Open wound Polymyalgia arteritica Low iron Leg cramps History of edema Cardiology follow-up encounter Prostate cancer Dependent on hemodialysis NPDR (nonproliferative diabetic retinopathy) Nonrheumatic aortic (valve) stenosis History of non-ST elevation myocardial infarction (NSTEMI) End stage renal disease Leukocytosis Edema of left upper arm HFrEF (heart failure with reduced ejection fraction) Acquired neutrophilia Aortic valve stenosis 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 1 diabetes mellitus Chronic neck and back pain Skin mole Fatigue Watery eyes CKD (chronic kidney disease) stage 4, GFR 15-29 ml/min Aortic root dilatation Olecranon bursitis, left elbow Mediastinal mass Type 1 diabetes mellitus with hyperglycemia Olecranon bursitis, right elbow Unintentional weight loss of more than 10 pounds Swelling of right elbow Heart murmur Contact with or suspected exposure to other viral communicable disease Acute bronchitis Insulin dependent diabetes mellitus CKD (chronic kidney disease), stage IV Osteopenia Wears hearing aid Wears glasses Wears dentures Alcohol use Insulin dependent diabetes mellitus Arthritis High cholesterol Back pain Dietary restriction Former smoker Shortness of breath on exertion History of pain when walking History of stress test History of echocardiogram Nicotine dependence, cigarettes, uncomplicated COPD (chronic obstructive pulmonary disease) Episode of syncope Mass of lung REYES (dyspnea on exertion) Wears hearing aid in both ears Hearing loss, left Hearing loss, right Kidney stones Smoker Hypertension Chronic kidney insufficiency Diabetic retinopathy associated with type 1 diabetes mellitus Benign essential hypertension Stage 3 chronic kidney disease due to type 1 diabetes mellitus Diabetic polyneuropathy associated with type 1 diabetes mellitus Essential hypertension Mixed hyperlipidemia Vision problem Prostate disease Osteoarthritis Hearing problem COPD (chronic obstructive pulmonary disease) Cataracts, bilateral Bone fracture Back problem Anemia Bronchitis Family history of hyperlipidemia Family history of hypertension Headache Dyspnea on exertion Hyperlipidemia Nicotine abuse Atherosclerotic heart disease of [place] coronary artery without angina pectoris 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 Sleep apnea Hypertension Home Medications ?Medication ?Instructions ?Recorded ?Last Taken ?Type aspirin 81 mg tablet,delayed 81 mg PO QDAY 06/15/17 03/01/23 History release (Adult Low Dose Aspirin) finasteride 5 mg tablet (Proscar) 5 mg PO DAILY 06/16/17 Unknown History flash glucose scanning reader #2 ea 03/28/22 Unknown Rx (FreeStyle Tani 2 [place]) flash glucose sensor (FreeStyle #2 ea 03/28/22 Unknown Rx Tani 2 Sensor kit) cholecalciferol (vitamin D3) 125 125 mcg PO DAILY 05/05/22 Unknown History mcg (5,000 unit) capsule PureFlow B 2K Dialysis Soln 6 bag perfusion UD ##0 12/12/22 Unknown Rx acetaminophen 325 mg tablet 650 mg (2 x 325 mg) PO Q4H PRN PRN 12/12/22 Unknown Rx Fever, pain 1-01/20 #0 tabs insulin lispro 100 unit/mL See Protocol subcut ACHS 01/14/23 Unknown History subcutaneous pen (Humalog KwikPen (U-100) Insulin) calcium 600 mg (as 1 cap PO DAILY 01/23/23 Unknown History carbonate)-vitamin D3 10 mcg (400 unit) capsule amlodipine 5 mg tablet 5 mg PO DAILY 01/26/23 03/02/23 History insulin glargine 100 unit/mL (3 8 unit subcut QPM DM 01/28/23 Unknown History mL) subcutaneous pen (Lantus Solostar U-100 Insulin) insulin lispro 100 unit/mL 6 unit subcut TIDAC 01/28/23 Unknown History subcutaneous pen (Humalog KwikPen (U-100) Insulin) foam bandage 4 X 4 (Mepilex) #5 ea 01/29/23 Unknown Rx vitamins A,C,W-xnmv-lktjvz 4,296 1 cap PO DAILY #90 caps 02/27/23 Unknown Rx mcg-226 mg-90 mg capsule (ICaps AREDS) sertraline 50 mg tablet 50 mg PO DAILY #90 tabs 07/31/23 Unknown Rx clonidine HCl 0.1 mg tablet 0.1 mg PO BID 01/29/24 Unknown History docusate sodium 100 mg capsule 200 mg PO QDAY 01/29/24 Unknown History folic acid 400 mcg tablet 400 mcg PO DAILY 01/29/24 Unknown History furosemide 40 mg tablet 40 mg PO DAILY weight gain 01/29/24 Unknown History gabapentin 300 mg capsule 300 mg PO TID 01/29/24 Unknown History magnesium 250 mg tablet 250 mg PO QDAY 01/29/24 Unknown History pantoprazole 40 mg tablet,delayed 40 mg PO BID 01/29/24 Unknown History release renal multivitamin 1 tab PO DAILY 01/29/24 Unknown History tamsulosin 0.4 mg capsule 0.4 mg PO QDAY 01/29/24 Unknown History atorvastatin 40 mg tablet 40 mg PO QHS 02/24/24 Unknown History metoprolol tartrate 25 mg tablet 25 mg PO DAILY 02/24/24 Unknown History aluminum-mag hydroxide-simethicone 30 ml PO Q6H PRN PRN Gastric 02/28/24 Unknown Rx 400 mg-400 mg-40 mg/5 mL oral susp Burning #0 mL (Mag-Al Plus Extra Strength) apixaban 5 mg tablet (Eliquis) 2.5 mg (1/2 x 5 mg) PO BID 30 days 02/28/24 Unknown Rx #30 tabs ferrous sulfate 325 mg (65 mg 325 mg PO DAILY #30 tabs 02/28/24 Unknown Rx iron) tablet (Iron (ferrous sulfate)) melatonin 3 mg tablet 3 mg PO QHS PRN PRN Insomnia #0 02/28/24 Unknown Rx tabs oxycodone 5 mg tablet 5 mg PO Q4H PRN PRN Pain Score 02/28/24 Unknown Rx 4-10 3 days #10 tabs Allergy/AdvReac Type Severity Reaction Status Date / Time levofloxacin (From [employer]) Allergy Hives Verified 02/29/24 10:35 vancomycin AdvReac Severe Rash Verified 02/29/24 10:35 Family History Father Diabetes Hypertension Family history of hyperlipidemia Asthma Kidney disease Mother Diabetes Brother Cancer Throat cancer Brother CAD (coronary artery disease) Myocardial infarction, Onset Age: 52 Sister Family history of hyperlipidemia Hypertension Diabetes Unknown Alcoholism Arthritis Depression Diabetes Hypertension Hyperlipidemia Osteoporosis Respiratory disease Pancreatic cancer Other Family history of hypertension Surgical History History of hip surgery S/P arteriovenous (AV) fistula creation Fracture of left patella Wrist fracture, bilateral Fracture of left upper extremity History of colonoscopy (~2013) History of bilateral inguinal hernia repair (~2007) History of hernia repair (~1991) History of hemorrhoidectomy (~2000) stent replacement for right sided kidney stome Social History household members: spouse Smoking Status: Current every day smoker tobacco type: cigarettes Tobacco: How many years used: 50 alcohol intake: never substance use type: does not use caffeine: Yes Type: coffee Number of servings: 2 what type of physical activity do you participate in: none seatbelt use: sometimes do you feel safe at home: Yes ROS ROS ED Review of Systems ROS Unobtainable: due to mental status Constitutional Constitutional ED: Reports chills, fever(s) and subjective ENT ENT ED: Reports other Details: Postnasal drainage Respiratory/Chest Respiratory/Chest: Reports cough and dyspnea Genitourinary Genitourinary ED: Reports hematuria and other Details: Hematuria which required irrigation per . Urine was clear today. ; Denies dysuria or urinary frequency Musculoskeletal Musculoskeletal: Denies arthralgias or myalgias Integumentary Denies rash Neurologic Neurologic: Denies headache(s) or paresthesias Psychiatric Psychiatric: Denies anxiety Hematologic/Lymphatic Hematologic/Lymphatic: Reports systems reviewed and no addt'l complaints, except as documented EXAM Physical Exam Const Vital Signs: 02/29/24 10:29 02/29/24 10:44 02/29/24 12:39 Temperature 97.4 F L 97.5 F L Temperature Source Oral Oral Pulse Rate 61 65 Respiratory Rate 18 21 H Respiratory Effort Normal Non-Labored Respiratory Pattern Normal Blood Pressure 125/61 H 122/50 H Blood Pressure Mean 82 74 Pulse Ox 91 94 Oxygen Delivery Method Room Air Room Air 02/29/24 13:45 02/29/24 13:45 02/29/24 14:00 Temperature 98 F 98 F Temperature Source Temporal Pulse Rate 65 55 L 59 L Respiratory Rate 17 17 20 H Respiratory Effort Respiratory Pattern Blood Pressure 127/47 H 119/52 L 119/77 Blood Pressure Mean 73 74 91 Pulse Ox 90 90 93 Oxygen Delivery Method Room Air Room Air Positive well nourished and well developed Constitutional Narrative: Patient not awake nor is he alert. He is also disoriented. Vital signs noted. Pulse ox is 91% on room air. General Appearance ED: well developed, NAD and pallor HEENT Reports moist mucous membranes HEENT Narrative: Head is atraumatic normocephalic. Ears normal. Nares patent. Posterior pharynx is normal. Eyes PERRL and EOMs intact bilaterally General Eye ED: Yes pale conjunctiva; Negative for scleral icterus Neck no lymphadenopathy, supple and no JVD Chest Wall inspection of chest normal and palpation of chest normal Resp normal respiratory effort and clear to auscultation bilaterally Cardio regular rate, regular rhythm, S1 normal heart sound and S2 normal heart sound; Negative for no murmurs GI normal to inspection, nondistended, normoactive bowel sounds, non-tender, non-distended and no masses Back/Spine no CVA tenderness Extremity Extremity Narrative: Patient has dressing over his hip incision site. There is a medicated dressing this was not removed. There is no erythema noted. There is no warmth of the leg. There is no neurovasc compromise. Neuro No oriented x3 and CN's II-XII intact bilaterally Sensorium / Orientation: Negative for alert Psych Psych Narrative: Difficult to assess. Skin no rashes or lesions noted and no wounds General Skin Exam: pallor; Negative for jaundice MDM MDM MDM Narrative Medical decision making narrative: Patient with altered mental status elevated blood sugar. Need to rule out infectious cause. Also will need to assess electrolytes, glucose, CO2 anion gap and renal function. CBC was obtained to assess H&H since he appears pale and has history of anemia. Will obtain straight cath urine in light of information inform me of. Chest x-ray was obtained because of his complaint of cough and shortness of breath pulse ox 91%. Most recent records for admission were reviewed. History & Record Review Additional record(s) reviewed:: Prior inpatient record, Prior ED visit and Prior labs Lab Data Attestation: I reviewed the patient's lab results. Lab results narrative: White count and differential are unremarkable. There is a slight shift with 82% neutrophils. H&H is 7.1 and 21.5 which is similar to most recent H&H. Basic metabolic panel reveals a glucose of 365 with a normal CO2 anion gap. Patient's BUN and creatinine are elevated from prior at 76 and 4.75. Estimated GFR is 13. Urinalysis is remarked for proteinuria, glucose, occult blood and leukoesterase. Nitrites was negative. Microscopic is remarkable for microscopic hematuria with 10-25 RBCs. There is 0-5 WBCs with no bacteria noted. Labs: Laboratory Results - last 24 hr 02/29/24 02/29/24 02/29/24 10:32 10:37 11:17 WBC 6.6 RBC 2.19 L Hgb 7.1 L Hct 21.5 L MCV 98.2 H MCH 32.4 H MCHC 33.0 RDW Std Deviation 48.9 H RDW Coeff of Russell 13.8 Plt Count 242 MPV 10.6 Immature Gran % (Auto) 1.100 H Neut % (Auto) 82.6 H Lymph % (Auto) 6.1 L [place] % (Auto) 7.4 Eos % (Auto) 2.3 Baso % (Auto) 0.5 Absolute Neuts (auto) 5.5 Absolute Lymphs (auto) 0.40 L Nucleated RBC % 0 Sodium 131 L Potassium 4.0 Chloride 99 Carbon Dioxide 23.0 Anion Gap 10 BUN 76 H Creatinine 4.74 H Estim Creat Clear Calc 10.51 Est GFR (MDRD) Af Amer 15 L Est GFR (MDRD) Non-Af 13 L BUN/Creatinine Ratio 16.0 Glucose 365 H Calcium 8.1 L Ammonia TSH 1.930 Urine Color Yellow Urine Clarity Clear Urine pH 5.0 Ur Specific [place] 1.015 Urine Protein 100 H Urine Glucose (UA) 250 H Urine Ketones Negative Urine Occult Blood 250 H Urine Nitrite Negative Urine Bilirubin Negative Urine Urobilinogen Normal Ur Leukocyte Esterase 25 H Urine RBC 10-25 SEEN Urine WBC 0-5 SEEN Ur Squamous Epith Cells 0 SEEN Amorphous Sediment 2+ URATE Urine Bacteria 0 SEEN Hyaline Casts 0-5 SEEN Urine Mucus 0 SEEN POC Glucose 371 H 02/29/24 13:53 WBC RBC Hgb Hct MCV MCH MCHC RDW Std Deviation RDW Coeff of Russell Plt Count MPV Immature Gran % (Auto) Neut % (Auto) Lymph % (Auto) [place] % (Auto) Eos % (Auto) Baso % (Auto) Absolute Neuts (auto) Absolute Lymphs (auto) Nucleated RBC % Sodium Potassium Chloride Carbon Dioxide Anion Gap BUN Creatinine Estim Creat Clear Calc Est GFR (MDRD) Af Amer Est GFR (MDRD) Non-Af BUN/Creatinine Ratio Glucose Calcium Ammonia 20.0 TSH Urine Color Urine Clarity Urine pH Ur Specific [place] Urine Protein Urine Glucose (UA) Urine Ketones Urine Occult Blood Urine Nitrite Urine Bilirubin Urine Urobilinogen Ur Leukocyte Esterase Urine RBC Urine WBC Ur Squamous Epith Cells Amorphous Sediment Urine Bacteria Hyaline Casts Urine Mucus POC Glucose ABG Data Attestation: I personally reviewed and interpreted this ABG as follows: Interpretation: Arterial blood gas reveals no acid-base disturbance. There is slight increased AA gradient. Otherwise the ABG is unremarkable. ABG results: ABG 02/29/24 14:20 Specimen Type ART Sample Site R Radial pH 7.42 Bicarbonate Actual 25.0 Total CO2 26 Base Excess 0 O2 Saturation 93 L ABG pCO2 38.9 ABG pO2 65 L Ren Test Positive O2 Delivery Device Room Air Vent Mode Not entered Radiography Chest X-Ray - ED: 1 View and Read by ED Physician (Patient has some increased interstitial marking at the right and left lower lung. There is borderline cardiomegaly. There is no evidence of effusion. There is no curly B-lines or cephalization noted. Left costal margin is obscured due to the enlarged heart. This is unchanged from prior.) Diagnostic Testing: Clinical Impression(s) from Imaging Studies Chest X-Ray 02/29/24 10:50 IMPRESSION: Chronic interstitial changes and stable blunting of the left costophrenic angle, no interval change Electronically Signed: Thomas Queen MD at 11:04 EST , Brain CT 02/29/24 12:30 IMPRESSION: Chronic involutional changes of the brain. Stable opacification of the left maxillary sinus. Electronically Signed: Elvis Green MD at 12:49 EST , CT of the head reveals abnormality left maxillary sinus. This is chronic based on review of prior CAT scans. Management Discussion w/another healthcare provider: Hospitalist (Hospitalist was paged because patient has acute change in mental status with Wilder-Ruiz respiration of unknown cause and acute on chronic kidney disease.) Treatment and Re-Evaluation :: Patient was reassessed at 1224. states that she has to occasionally head and because he stops breathing. She was has not to wake him up. He is still somnolent and is not at baseline. Patient does have Wilder-Ruiz breathing pattern. Since patient has acute altered mental status with Wilder-Ruiz breathing will obtain CT of the head. Comments:: Since patient has no acid-base disturbance he will be admitted to PCU. Discharge Plan Dx/Rx/DC Orders Clinical Impression: Acute alteration in mental status, Nonrheumatic aortic (valve) stenosis, Prostate cancer, Dyslipidemia, Hyperglycemia due to type 1 diabetes mellitus, Acute kidney injury superimposed on chronic kidney disease, Anemia, Asymptomatic microscopic hematuria, Wilder-Ruiz breathing Disposition Disposition: [facility]
[2024-02-29 10:49] LABS: Absolute Neutrophil Count 5.5 X10^3/uL (2.0-7.7); Basophil# 0.03 X10^3/uL; Basophil% 0.5 % (0-1); Eosinophil# 0.15 X10^3/uL; Eosinophils% 2.3 % (0-5); Hematocrit 21.5 % (40-54); Hemoglobin 7.1 g/dL (13.0-16.5); Lymphocyte % 6.1 % (19-41); Mean Corpuscular Hgb 32.4 pg (27.0-32.0); Mean Corpuscular Volume 98.2 fL (80-94); Mean Platelet Vol. 10.6 fl (6.2-12.0); Monocyte# 0.49 X10^3/uL; Monocyte% 7.4 % (0-10); NRBC Flagged by Analyzer 0 % (0-5); Neutrophil # 5.45 X10^3/uL (2.7-7.7); Neutrophil % 82.6 % (47-70); POSITIVE DIFFERENTIAL YES; Platelet Count 242 K/mm3 (150-450); RBC Distribution Width CV 13.8 % (11.6-14.6); RBC Distribution Width SD 48.9 fl (35.1-43.9); Red Blood Count 2.19 M/mm3 (4.6-6.2); White Blood Count 6.6 K/mm3 (4.4-11.0)
[2024-02-29 10:49] LABS: Bedside Glucose 371 mg/dL (74-106)
--- NOTE | 2024-02-29 10:50 | RAD_ITS ---
STUDY: X-RAY CHEST REASON FOR EXAM: Male, 78 years old. Shortness of breath and cough TECHNIQUE: Single AP portable view of the chest. COMPARISON: 02/24/2024 FINDINGS: EKG leads overlie the chest Chronic interstitial changes in both lung toscano with stable blunting of the left costophrenic angle. Normal size heart. Normal mediastinum and allison. Normal visualized pulmonary arteries. There is atherosclerotic calcification of the aortic arch with tortuosity. There are diffuse degenerative changes of the visualized thoracic spine. There is degenerative osteoarthritis of the bilateral shoulders. There is no demonstrated abnormality of the visualized soft tissue structures of the upper abdomen. RAD/Chest 1 View (Portable) IMPRESSION: Chronic interstitial changes and stable blunting of the left costophrenic angle, no interval change Electronically Signed: Thomas Queen MD at 11:04 EST ,
[2024-02-29 11:01] LABS: Anion Gap 10 (5-15); BUN 76 mg/dL (7-18); Calcium,Total 8.1 mg/dL (8.5-10.1); Chloride 99 mmol/L (98-107); Creatinine, Serum 4.74 mg/dL (0.70-1.30); EST Glomerular Filtration Rate 13 mL/min (>60); Est Glom Filt Rate - Afr Amer 15 mL/min (>60); Estimated Creatinine Clearance 10.51 ml/min; Glucose 365 mg/dL (74-106); Sodium Level 131 mmol/L (136-145)
[2024-02-29 11:22] LABS: Bacteria 0 SEEN /hpf (None Seen); Mucous, Urine 0 SEEN /hpf (<or=2+); Squamous Epithelial Cells - UA 0 SEEN /hpf (0-5)
[2024-02-29 11:30] LABS: Color, Urine Yellow (Yellow); Glucose, Dipstick 250 mg/dl (Normal); Ketone-Dipstick Negative (Negative); Leukocyte Esterase-Dipstick 25 /ul (Negative); Nitrite-Dipstick Negative (Negative); Occult Blood-Urine 250 /ul (Negative); Protein-Dipstick 100 mg/dl (Negative); Specific Gravity, Urine 1.015 (1.002-1.030); Urine Bilirubin Dipstick Negative (Negative); Urine Clarity Clear (Clear); Urine Urobilinogen Normal (Normal)
[2024-02-29 11:44] LABS: Red Blood Cells-Urine 10-25 SEEN /hpf (0-5)
[2024-02-29 11:45] LABS: Amorphous Sediment 2+ URATE; White Blood Cells 0-5 SEEN /hpf (0-5)
[2024-02-29 11:46] LABS: Hyaline Cast 0-5 SEEN /lpf (0-5)
--- NOTE | 2024-02-29 12:30 | CT_ITS ---
STUDY: CT BRAIN WITHOUT CONTRAST REASON FOR EXAM: Male, 78 years old. Acute altered MS and Wilder-Ruiz breathing RADIATION DOSAGE (If Supplied By Facility): CTDIvol = ( 44.99 ) mGy, DLP = ( 796.11 ) mGycm TECHNIQUE: Transaxial CT imaging of the brain was performed without administration of intravenous contrast material. Individualized dose optimization techniques were used for this CT. COMPARISON: Comparison is made with prior study November 28, 2022. FINDINGS: Normal soft tissue structures. Normal calvarium. There is mild cerebral atrophy with widening of the extra-axial spaces and ventricular dilatation. There are areas of decreased attenuation within the white matter tracts of the supratentorial brain, consistent with microvascular disease changes. Normal basal ganglia and thalami. Normal brainstem. Normal cerebellum. There is no intracranial hemorrhage. There are no findings of an acute ischemic infarction. Atherosclerotic calcific plaques of the vertebral arteries and cavernous portions of the internal carotid arteries bilaterally. Opacification of the left maxillary sinus. This is unchanged. CT/Brain/Head without Contrast IMPRESSION: Chronic involutional changes of the brain. Stable opacification of the left maxillary sinus. Electronically Signed: Elvis Green MD at 12:49 EST ,
[2024-02-29 14:24] LABS: Allen Test Positive; Base Excess 0 mmol/L (-2 to +2); Blood Gas Specimen Type ART; Mode Not entered; O2 Delivery Device Room Air; PO2 65 mmHG (75-100); SITE R Radial; SO2 93 % (95-99); Total Carbon Dioxide 26 mmol/L; pCO2 38.9 mmHg (35-45); pH 7.42 (7.35-7.45)
--- NOTE | 2024-02-29 14:34 | ED.RN ---
Meghann from [facility] asking for an update on patient. This RN informed nurse he will be admitted for hyperglycemia and AMS. No further questions
--- NOTE | 2024-02-29 14:56 | PCM.HP.STD ---
HPI - General General Date of Admission: 02/29/24 Date of Service: 02/29/24 Chief Complaint: Altered mental status/myoclonic jerks HPI Narrative DEX VALLE, is a 78 M who presented to the emergency department at [facility] on 02/29/2024 due to altered mental status/hyperglycemia/and myoclonic jerking. Patient was admitted here on February 23 after sustaining a right hip fracture. He underwent a right hip cemented hemiarthroplasty on 02/25/2024 and the patient's reports that ever since he had surgery he has been having some jerking that is not his baseline. He was discharged from here on 02/28/2024 to [facility] and she reported that he was a little bit confused yesterday with some of the jerking as noted however the jerking is progressively gotten worse and his mental status has slowly declined. She did also report that his basal insulin was held yesterday for an unknown reason. He is on chronic dialysis which she receives on Thursday, , and Thursday with his last dialysis being here on Thursday prior to discharge. Patient only was able to tell me that he was having some hip pain other than that he denied any complaints however he was confused. Patient's reports at baseline he is A&O x 3 however he does have some mild cognitive impairment. In the emergency department he was oriented to self and place but not time. I did review his medication list and he was transition from Ultram to oxycodone every 4 hours. I also did note that he is on gabapentin 3 times a day at 300 mg. This dose is far above what is recommended for a patient on dialysis. I did discuss this with nephrology and we will decrease his dose to 100 mg twice daily after his mentation improves. This was not new dose at the time of discharge. Vital signs on presentation showed a temperature 97.4, heart rate 61, respiratory rate 18, blood pressure 125/61 and sats are 91 to 94% on room air. His labs are altogether not not much different from yesterday. CBC is overtly unremarkable. His hemoglobin is 7.1 and stable when compared to previous. Platelet count is normal. Chemistry panel shows mild hyponatremia which is expected given his last dialysis was Thursday, BUN of 76 and a creatinine of 4.76 and a glucose of 365. He had a recent hemoglobin A1c on 02/25/2024 at which time was found to be 8.6. His UA is not consistent with infection. His ammonia level was 22. TSH was 1.93. We obtained a blood gas due to his altered mentation and his pH was 7.42 with a pCO2 of 38.9 and a pO2 of 65 on room air with a sat of 93%. Chest x-ray shows only chronic interstitial changes no acute changes from previous. CT the brain shows chronic involutional changes and stable opacification of the left maxillary sinus. I highly suspect his myoclonic jerking and altered mentation is due to medication clearance. He is on a very high dose of gabapentin given his renal dysfunction. Plan is for dialysis tomorrow and hold his gabapentin with reduced doses of oxycodone for now. [facility] Medical History Fracture of femoral neck, right, open Carotid stenosis Anxiety and depression Carotid artery disease Lipohypertrophy due to insulin injection Dyslipidemia Carotid bruit Coronary artery disease Chronic neck pain Debility Cancer Open wound Polymyalgia arteritica Low iron Leg cramps History of edema Cardiology follow-up encounter Prostate cancer Dependent on hemodialysis NPDR (nonproliferative diabetic retinopathy) Nonrheumatic aortic (valve) stenosis History of non-ST elevation myocardial infarction (NSTEMI) End stage renal disease Leukocytosis Edema of left upper arm HFrEF (heart failure with reduced ejection fraction) Acquired neutrophilia Aortic valve stenosis 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 1 diabetes mellitus Chronic neck and back pain Skin mole Fatigue Watery eyes CKD (chronic kidney disease) stage 4, GFR 15-29 ml/min Aortic root dilatation Olecranon bursitis, left elbow Mediastinal mass Type 1 diabetes mellitus with hyperglycemia Olecranon bursitis, right elbow Unintentional weight loss of more than 10 pounds Swelling of right elbow Heart murmur Contact with or suspected exposure to other viral communicable disease Acute bronchitis Insulin dependent diabetes mellitus CKD (chronic kidney disease), stage IV Osteopenia Wears hearing aid Wears glasses Wears dentures Alcohol use Insulin dependent diabetes mellitus Arthritis High cholesterol Back pain Dietary restriction Former smoker Shortness of breath on exertion History of pain when walking History of stress test History of echocardiogram Nicotine dependence, cigarettes, uncomplicated COPD (chronic obstructive pulmonary disease) Episode of syncope Mass of lung REYES (dyspnea on exertion) Wears hearing aid in both ears Hearing loss, left Hearing loss, right Kidney stones Smoker Hypertension Chronic kidney insufficiency Diabetic retinopathy associated with type 1 diabetes mellitus Benign essential hypertension Stage 3 chronic kidney disease due to type 1 diabetes mellitus Diabetic polyneuropathy associated with type 1 diabetes mellitus Essential hypertension Mixed hyperlipidemia Vision problem Prostate disease Osteoarthritis Hearing problem COPD (chronic obstructive pulmonary disease) Cataracts, bilateral Bone fracture Back problem Anemia Bronchitis Family history of hyperlipidemia Family history of hypertension Headache Dyspnea on exertion Hyperlipidemia Nicotine abuse Atherosclerotic heart disease of [place] coronary artery without angina pectoris alf use of drug Sleep apnea Hypertension Home Medications ?Medication ?Instructions ?Recorded ?Last Taken ?Type aspirin 81 mg tablet,delayed 81 mg PO QDAY 06/15/17 03/01/23 History release (Adult Low Dose Aspirin) finasteride 5 mg tablet (Proscar) 5 mg PO DAILY 06/16/17 Unknown History flash glucose scanning reader #2 ea 03/28/22 Unknown Rx (FreeStyle Tani 2 Beaman) flash glucose sensor (FreeStyle #2 ea 03/28/22 Unknown Rx Tani 2 Sensor kit) cholecalciferol (vitamin D3) 125 125 mcg PO DAILY 05/05/22 Unknown History mcg (5,000 unit) capsule PureFlow B 2K Dialysis Soln 6 bag perfusion UD ##0 12/12/22 Unknown Rx acetaminophen 325 mg tablet 650 mg (2 x 325 mg) PO Q4H PRN PRN 12/12/22 Unknown Rx Fever, pain 1-01/20 #0 tabs insulin lispro 100 unit/mL See Protocol subcut ACHS 01/14/23 Unknown History subcutaneous pen (Humalog KwikPen (U-100) Insulin) calcium 600 mg (as 1 cap PO DAILY 01/23/23 Unknown History carbonate)-vitamin D3 10 mcg (400 unit) capsule amlodipine 5 mg tablet 5 mg PO DAILY 01/26/23 03/02/23 History insulin glargine 100 unit/mL (3 8 unit subcut QPM DM 01/28/23 Unknown History mL) subcutaneous pen (Lantus Solostar U-100 Insulin) insulin lispro 100 unit/mL 6 unit subcut TIDAC 01/28/23 Unknown History subcutaneous pen (Humalog KwikPen (U-100) Insulin) foam bandage 4 X 4 (Mepilex) #5 ea 01/29/23 Unknown Rx vitamins A,C,C-fnjy-xfxobm 4,296 1 cap PO DAILY #90 caps 02/27/23 Unknown Rx mcg-226 mg-90 mg capsule (ICaps AREDS) clonidine HCl 0.1 mg tablet 0.1 mg PO BID 01/29/24 Unknown History docusate sodium 100 mg capsule 200 mg PO QDAY 01/29/24 Unknown History folic acid 400 mcg tablet 400 mcg PO DAILY 01/29/24 Unknown History furosemide 40 mg tablet 40 mg PO DAILY weight gain 01/29/24 Unknown History gabapentin 300 mg capsule 300 mg PO TID 01/29/24 Unknown History magnesium 250 mg tablet 250 mg PO QDAY 01/29/24 Unknown History pantoprazole 40 mg tablet,delayed 40 mg PO BID 01/29/24 Unknown History release renal multivitamin 1 tab PO DAILY 01/29/24 Unknown History tamsulosin 0.4 mg capsule 0.4 mg PO QDAY 01/29/24 Unknown History atorvastatin 40 mg tablet 40 mg PO QHS 02/24/24 Unknown History metoprolol tartrate 25 mg tablet 25 mg PO DAILY 02/24/24 Unknown History aluminum-mag hydroxide-simethicone 30 ml PO Q6H PRN PRN Gastric 02/28/24 Unknown Rx 400 mg-400 mg-40 mg/5 mL oral susp Burning #0 mL (Mag-Al Plus Extra Strength) apixaban 5 mg tablet (Eliquis) 2.5 mg (1/2 x 5 mg) PO BID 30 days 02/28/24 Unknown Rx #30 tabs ferrous sulfate 325 mg (65 mg 325 mg PO DAILY #30 tabs 02/28/24 Unknown Rx iron) tablet (Iron (ferrous sulfate)) melatonin 3 mg tablet 3 mg PO QHS PRN PRN Insomnia #0 02/28/24 Unknown Rx tabs oxycodone 5 mg tablet 5 mg PO Q4H PRN PRN Pain Score 02/28/24 Unknown Rx 4-10 3 days #10 tabs fluoxetine 10 mg tablet 10 mg PO DAILY depression 02/29/24 Unknown History Allergy/AdvReac Type Severity Reaction Status Date / Time levofloxacin (From Levaquin) Allergy Hives Verified 02/29/24 10:35 vancomycin AdvReac Severe Rash Verified 02/29/24 10:35 Family History Father Diabetes Hypertension Family history of hyperlipidemia Asthma Kidney disease Mother Diabetes Brother Cancer Throat cancer Brother CAD (coronary artery disease) Myocardial infarction, Onset Age: 52 Sister Family history of hyperlipidemia Hypertension Diabetes Unknown Alcoholism Arthritis Depression Diabetes Hypertension Hyperlipidemia Osteoporosis Respiratory disease Pancreatic cancer Other Family history of hypertension Surgical History History of hip surgery S/P arteriovenous (AV) fistula creation Fracture of left patella Wrist fracture, bilateral Fracture of left upper extremity History of colonoscopy (~2013) History of bilateral inguinal hernia repair (~2007) History of hernia repair (~1991) History of hemorrhoidectomy (~2000) stent replacement for right sided kidney stome Social History household members: spouse Smoking Status: Current every day smoker tobacco type: cigarettes Tobacco: How many years used: 50 alcohol intake: never substance use type: does not use caffeine: Yes Type: coffee Number of servings: 2 what type of physical activity do you participate in: none seatbelt use: sometimes do you feel safe at home: Yes ROS ROS Narrative reports the only issue she has had is her right hip pain and now altered mental status with myoclonic jerking Review of Systems ROS Unobtainable: due to mental status Vital Signs Vital Signs Vital Signs: 02/29/24 10:29 02/29/24 10:44 02/29/24 12:39 Temperature 97.4 F L 97.5 F L Temperature Source Oral Oral Pulse Rate 61 65 Respiratory Rate 18 21 H Respiratory Effort Normal Non-Labored Respiratory Pattern Normal Blood Pressure 125/61 H 122/50 H Blood Pressure Mean 82 74 Pulse Ox 91 94 Oxygen Delivery Method Room Air Room Air 02/29/24 13:45 02/29/24 13:45 02/29/24 14:00 Temperature 98 F 98 F Temperature Source Temporal Pulse Rate 65 55 L 59 L Respiratory Rate 17 17 20 H Respiratory Effort Respiratory Pattern Blood Pressure 127/47 H 119/52 L 119/77 Blood Pressure Mean 73 74 91 Pulse Ox 90 90 93 Oxygen Delivery Method Room Air Room Air 02/29/24 14:45 Temperature 98.9 F Temperature Source Oral Pulse Rate 57 L Respiratory Rate 16 Respiratory Effort Respiratory Pattern Blood Pressure 128/51 H Blood Pressure Mean 76 Pulse Ox 92 Oxygen Delivery Method Room Air Weight Weight: 59.8 kg Body Mass Index (BMI) 20.6 Physical Exam Const no apparent distress and average body habitus; Negative for alert, oriented x3, healthy appearing or well nourished Constitutional Narrative: Patient appears to be sleepy but will awaken to name, is oriented to self and place but not time which is not his baseline, appears comfortable, does not look toxic, looks chronically ill, thin Orientation / Consciousness: confused HEENT normocephalic and head/scalp atraumatic HEENT Narrative: Dentition is poor, Mallampati is 1, bitemporal wasting, no thrush noted, mild to moderate hearing loss, mucous membranes appear slightly dry Eyes PERRL; Negative for conjunctivae normal Eyes Narrative: Bilateral conjunctiva are pale, no scleral icterus Neck no lymphadenopathy and supple Neck Narrative: Trachea midline, no thyroid enlargement, no bruits auscultated Resp no retractions, no use of accessory muscles and clear to auscultation bilaterally Resp Narrative: Intermittent Wilder-Ruiz respirations however respiratory pattern seems to be slowly improving Auscultation: Negative for rales, rhonchi or wheezes Cardio regular rate, regular rhythm, S1 normal heart sound, S2 normal heart sound, no murmurs, no rub, no gallops and no clicks Cardio Narrative: Intermittent ectopy GI normal to inspection, nondistended, normoactive bowel sounds, soft to palpation and non-tender GI Narrative: Abdomen is scaphoid Extremity no clubbing, cyanosis or edema Extremity Narrative: Decreased lean muscle mass, postoperative bandage over right hip is clean dry and intact with no surrounding ecchymosis or significant edema, pedal pulses and radial pulses are 2+ bilaterally Neuro No oriented x3, CN's II-XII intact bilaterally, moves all extremities and no focal motor deficits Neuro Narrative: speech is slightly altered due to sleepiness and dry mouth, patient falls back asleep very easily Sensorium / Orientation: awake, alert, oriented to person and oriented to place Speech: Negative for speech normal Psych Psych Narrative: Difficult to assess due to mental status Results Lab / Micro Data 02/29/24 10:37 02/29/24 10:37 Labs: Laboratory Results - last 24 hr 02/29/24 10:32: POC Glucose 371 H 02/29/24 10:37: WBC 6.6, RBC 2.19 L, Hgb 7.1 L, Hct 21.5 L, MCV 98.2 H, MCH 32.4 H, MCHC 33.0, RDW Std Deviation 48.9 H, RDW Coeff of [place] 13.8, Plt Count 242, MPV 10.6, Immature Gran % (Auto) 1.100 H, Neut % (Auto) 82.6 H, Lymph % (Auto) 6.1 L, [place] % (Auto) 7.4, Eos % (Auto) 2.3, Baso % (Auto) 0.5, Absolute Neuts (auto) 5.5, Absolute Lymphs (auto) 0.40 L, Nucleated RBC % 0, Sodium 131 L, Potassium 4.0, Chloride 99, Carbon Dioxide 23.0, Anion Gap 10, BUN 76 H, Creatinine 4.74 H, Estim Creat Clear Calc 10.51, Est GFR (MDRD) Af Amer 15 L, Est GFR (MDRD) Non-Af 13 L, BUN/Creatinine Ratio 16.0, Glucose 365 H, Calcium 8.1 L, TSH 1.930 02/29/24 11:17: Urine Color Yellow, Urine Clarity Clear, Urine pH 5.0, Ur Specific [place] 1.015, Urine Protein 100 H, Urine Glucose (UA) 250 H, Urine Ketones Negative, Urine Occult Blood 250 H, Urine Nitrite Negative, Urine Bilirubin Negative, Urine Urobilinogen Normal, Ur Leukocyte Esterase 25 H, Urine RBC 10-25 SEEN, Urine WBC 0-5 SEEN, Ur Squamous Epith Cells 0 SEEN, Amorphous Sediment 2+ URATE, Urine Bacteria 0 SEEN, Hyaline Casts 0-5 SEEN, Urine Mucus 0 SEEN 02/29/24 13:53: Ammonia 20.0 ABG Data ABG results: ABG 02/29/24 14:20 Specimen Type ART Sample Site R Radial pH 7.42 Bicarbonate Actual 25.0 Total CO2 26 Base Excess 0 O2 Saturation 93 L ABG pCO2 38.9 ABG pO2 65 L Ren Test Positive O2 Delivery Device Room Air Vent Mode Not entered Imaging Radiology Impression Chest X-Ray 02/29/24 10:50 IMPRESSION: Chronic interstitial changes and stable blunting of the left costophrenic angle, no interval change Electronically Signed: Thomas Queen MD at 11:04 EST Reading Location ID and State: [facility] / [place] , Service support , Brain CT 02/29/24 12:30 IMPRESSION: Chronic involutional changes of the brain. Stable opacification of the left maxillary sinus. Electronically Signed: Elvis Green MD at 12:49 EST , Assessment & Plan Assessment/Plan (1) Anemia: (2) Acute alteration in mental status: (3) Myoclonus: (4) Hyperglycemia due to type 1 diabetes mellitus: PLAN: Plan Myoclonus -Per this has been problematic since immediately postoperatively -Has seemingly progressively gotten worse -Patient is on large quantities of gabapentin considering his baseline renal dysfunction at 300 mg 3 times daily -Has been on his prior to admission -Next dose with HD should be 300 mg daily -Will hold for now and restart at 100 mg 3 times daily once he clinically is improved -Discussed case with nephrology -Will check EEG to ensure there is no epileptic activity -If negative will transition back from oxycodone to Ultram as he is previously been on this and tolerated it well -Use oxycodone at a lower dose in the short-term for pain associated with his recent hip fracture and surgery Altered mental status -Suspect related to medications with his history of dialysis and likely decreased medication clearance -Hold gabapentin for now as noted above -Decrease frequency of oxycodone -Dialysis tomorrow -CT of the brain unremarkable -If persist may need to consider MRI Insulin-dependent diabetes with hyperglycemia -No signs of DKA - reports basal insulin was held last evening -Restart home basal insulin at 8 units nightly -Continue subcu prandial insulin 6 units 3 times daily -Did have recent hemoglobin A1c and was found to be 8.6--> this is with anemia so likely higher -Anticipate patient may need some alteration of his insulin but will need to assess what he is running currently with his current home regimen -Continue SSI -Renal/carb controlled diet End-stage renal disease-HD dependent -Nephrology consult in place -Continue home chronic medications related to his HD -Continue home Lasix -Typically has dialysis T//S -Consult nephrology-sees Dr. Kristian Chronic anemia suspect related to recent surgery and baseline renal disease -Currently at baseline -Continue to monitor -Should improve after dialysis tomorrow with fluid removal -Continue p.o. iron supplementation Diabetic neuropathy -Hold gabapentin -When able restart start at 100 mg 3 times daily due to his renal disease PAF -Newly diagnosed at hospitalization after surgery -Continue home metoprolol -Continue home apixaban 2.5 mg p.o. twice daily -Suspect valvular based on previous echo Moderate aortic stenosis -Echocardiogram done 02/26/2024 shows moderate aortic stenosis with mild aortic valve insufficiency and an EF of 60% -Recommend continued outpatient follow-up Recent right hip fracture secondary to mechanical fall -Hemiarthroplasty performed on 02/25/2024 -PT/OT consultation -On apixaban for DVT prophylaxis -Oxycodone 3 times daily but would transition back to Ultram which she has previously tolerated well as long as EEG is negative for any seizure activity -Continue bowel regimen -Remove postop dressing based on previous instructions -Social work/case management consultation as patient will likely need discharge back to [facility] once medically ready Nonobstructive CAD/essential hypertension/hyperlipidemia -Cardiac catheterization in 2008 which showed minimal coronary disease and stress testing done on 11/2022 with no evidence of ischemic changes -Continue amlodipine -Continue home aspirin -Continue home atorvastatin -Continue on clonidine -Continue Lasix -Continue home metoprolol BPH with obstruction -Continue with Flomax/finasteride History of prostate cancer -In remission GERD -Continue Protonix twice daily History of PMR -Steroid taper completed Depression/anxiety -Continue on fluoxetine History of tobacco abuse -Remote -Encouraged ongoing cessation -Documented COPD however patient is on any chronic medications DVT prophylaxis -Continue apixaban 2.5 mg p.o. twice daily CODE STATUS -Full code as verified with at the time of admission as patient was not alert and oriented x 3 at that time Charges/Coding Visit Charges Inpatient E&M: 57059 Init Hosp L3
[2024-02-29 16:42] LABS: Bedside Glucose 67 mg/dL (74-106)
[2024-02-29 19:02] LABS: Bedside Glucose 178 mg/dL (74-106)
[2024-02-29] MEDS: cloNIDine HCl 0.1 MG Tablet PO (22:48)
[2024-02-29] MEDS: APIXABAN 2.5 MG TABLET (WCH) PO (22:48)
[2024-02-29] MEDS: Insulin Glargine-YFGN 100 UNIT/ML Pen 8 UNIT SC (22:48)
[2024-02-29] MEDS: Insulin Lispro 100 UNIT/ML INSULN.PEN SC (22:48)
[2024-02-29] MEDS: Acetaminophen 500 MG Tablet 1000 MG PO (22:49)
[2024-02-29] MEDS: Pantoprazole Sodium 40 MG Tablet PO (22:49)
[2024-02-29] MEDS: Atorvastatin Calcium 40 MG Tablet PO (22:49)
[2024-03-01] VITALS (17 sets, daily range): BP systolic 155–247; BP diastolic 40–68; PULSE 53–89; RESP 12–16; TEMP 36.4–36.8; O2SAT 93–98; BMI 21.7; BMI 20.9
[2024-03-01 00:59] LABS: Bedside Glucose 327 mg/dL (74-106)
[2024-03-01] MEDS: Acetaminophen 500 MG Tablet 1000 MG PO ×2 (05:40→21:35)
[2024-03-01] MEDS: hydrALAZINE 20 MG/ML Vial 10 MG IV (05:40)
[2024-03-01 06:22] LABS: Absolute Lymphocyte Count 0.78 X10^3/uL (0.83-4.51); Absolute Neutrophil Count 4.8 X10^3/uL (2.0-7.7); Basophil# 0.04 X10^3/uL; Basophil% 0.6 % (0-1); Eosinophil# 0.25 X10^3/uL; Eosinophils% 3.8 % (0-5); Hematocrit 22.9 % (40-54); Hemoglobin 7.7 g/dL (13.0-16.5); Lymphocyte # 0.78 X10^3/ul (0.83-4.51); Lymphocyte % 11.7 % (19-41); Mean Corp Hgb Conc 33.6 g/dL (32-36); Mean Corpuscular Hgb 32.6 pg (27.0-32.0); Mean Platelet Vol. 10.7 fl (6.2-12.0); Monocyte# 0.73 X10^3/uL; NRBC Flagged by Analyzer 0 % (0-5); Neutrophil # 4.82 X10^3/uL (2.7-7.7); Neutrophil % 72.4 % (47-70); Platelet Count 269 K/mm3 (150-450); RBC Distribution Width CV 13.8 % (11.6-14.6); Red Blood Count 2.36 M/mm3 (4.6-6.2); White Blood Count 6.7 K/mm3 (4.4-11.0)
[2024-03-01 06:41] LABS: Anion Gap 9 (5-15); BUN 79 mg/dL (7-18); BUN/Creat Ratio 17.2 RATIO (10-20); Calcium,Total 8.1 mg/dL (8.5-10.1); Chloride 101 mmol/L (98-107); Creatinine, Serum 4.59 mg/dL (0.70-1.30); EST Glomerular Filtration Rate 13 mL/min (>60); Est Glom Filt Rate - Afr Amer 16 mL/min (>60); Estimated Creatinine Clearance 11.42 ml/min; Glucose 118 mg/dL (74-106); Magnesium 2.4 mg/dL (1.6-2.6); Phosphorus 4.5 mg/dL (2.5-4.9); Potassium 4.1 mmol/L (3.5-5.1); Sodium Level 134 mmol/L (136-145)
--- NOTE | 2024-03-01 07:38 | PCM.PN.HOSP ---
Reason for Visit Reason for Visit: Diagnoses Anemia, unspecified (02/29/24) Type 1 diabetes mellitus with hyperglycemia (02/29/24) Myoclonus (02/29/24) Altered mental status, unspecified (02/29/24) Objective Data Objective Data Vital Signs: Vital Signs Temp Pulse Resp BP Pulse Ox O2 Del Method 98.2 F 62 16 182/67 H 93 Room Air 03/01/24 03:49 03/01/24 05:40 03/01/24 03:49 03/01/24 05:40 03/01/24 07:21 03/01/24 07:21 Oxygen Delivery Method Room Air Weight: 138 lb 10.732 oz Body Mass Index (BMI) 21.7 Intake & Output: Intake and Output for Last 24 Hours 02/28/24 02/29/24 03/01/24 23:59 23:59 23:59 Intake Total 120 / 120 Output Total 125 / 225 250 / 250 Balance -5 / -105 -250 / -250 Lab / Micro Data 03/01/24 05:36 03/01/24 05:36 Labs: Laboratory Results - last 24 hr 02/29/24 10:32: POC Glucose 371 H 02/29/24 10:37: WBC 6.6, RBC 2.19 L, Hgb 7.1 L, Hct 21.5 L, MCV 98.2 H, MCH 32.4 H, MCHC 33.0, RDW Std Deviation 48.9 H, RDW Coeff of [place] 13.8, Plt Count 242, MPV 10.6, Immature Gran % (Auto) 1.100 H, Neut % (Auto) 82.6 H, Lymph % (Auto) 6.1 L, [place] % (Auto) 7.4, Eos % (Auto) 2.3, Baso % (Auto) 0.5, Absolute Neuts (auto) 5.5, Absolute Lymphs (auto) 0.40 L, Nucleated RBC % 0, Sodium 131 L, Potassium 4.0, Chloride 99, Carbon Dioxide 23.0, Anion Gap 10, BUN 76 H, Creatinine 4.74 H, Estim Creat Clear Calc 10.51, Est GFR (MDRD) Af Amer 15 L, Est GFR (MDRD) Non-Af 13 L, BUN/Creatinine Ratio 16.0, Glucose 365 H, Calcium 8.1 L, TSH 1.930 02/29/24 11:17: Urine Color Yellow, Urine Clarity Clear, Urine pH 5.0, Ur Specific [place] 1.015, Urine Protein 100 H, Urine Glucose (UA) 250 H, Urine Ketones Negative, Urine Occult Blood 250 H, Urine Nitrite Negative, Urine Bilirubin Negative, Urine Urobilinogen Normal, Ur Leukocyte Esterase 25 H, Urine RBC 10-25 SEEN, Urine WBC 0-5 SEEN, Ur Squamous Epith Cells 0 SEEN, Amorphous Sediment 2+ URATE, Urine Bacteria 0 SEEN, Hyaline Casts 0-5 SEEN, Urine Mucus 0 SEEN 02/29/24 13:53: Ammonia 20.0 02/29/24 16:18: POC Glucose 67 L 02/29/24 18:43: POC Glucose 178 H 02/29/24 22:42: POC Glucose 327 H 03/01/24 05:36: WBC 6.7, RBC 2.36 L, Hgb 7.7 L, Hct 22.9 L, MCV 97.0 H, MCH 32.6 H, MCHC 33.6, RDW Std Deviation 48.0 H, RDW Coeff of [place] 13.8, Plt Count 269, MPV 10.7, Immature Gran % (Auto) 0.500, Neut % (Auto) 72.4 H, Lymph % (Auto) 11.7 L, [place] % (Auto) 11.0 H, Eos % (Auto) 3.8, Baso % (Auto) 0.6, Absolute Neuts (auto) 4.8, Absolute Lymphs (auto) 0.78 L, Nucleated RBC % 0, Sodium 134 L, Potassium 4.1, Chloride 101, Carbon Dioxide 25.0, Anion Gap 9, BUN 79 H, Creatinine 4.59 H, Estim Creat Clear Calc 11.42, Est GFR (MDRD) Af Amer 16 L, Est GFR (MDRD) Non-Af 13 L, BUN/Creatinine Ratio 17.2, Glucose 118 H, Calcium 8.1 L, Phosphorus 4.5, Magnesium 2.4 ABG Data ABG results: ABG 02/29/24 14:20 Specimen Type ART Sample Site R Radial pH 7.42 Bicarbonate Actual 25.0 Total CO2 26 Base Excess 0 O2 Saturation 93 L ABG pCO2 38.9 ABG pO2 65 L Ren Test Positive O2 Delivery Device Room Air Vent Mode Not entered Radiography Diagnostic Testing: Radiology Impression Chest X-Ray 02/29/24 10:50 IMPRESSION: Chronic interstitial changes and stable blunting of the left costophrenic angle, no interval change Electronically Signed: Thomas Queen MD at 11:04 EST , Brain CT 02/29/24 12:30 IMPRESSION: Chronic involutional changes of the brain. Stable opacification of the left maxillary sinus. Electronically Signed: Elvis Green MD at 12:49 EST , Physical Exam Narrative Patient was admitted and confused disoriented and incoherent speech. In the morning is more awake alert and talking and making sense. He is still disoriented with that time and he states he was admitted to 3 days ago. Not moved bowel for 3 days, feels something is stuck in the rectum. Complain of spasm and pain in the right lower extremity. No fever Physical exam General: Alert, Oriented x3, Cooperative HEENT: Atraumatic, PERRLA, EOMI, Normocephalic Oral: Oral mucosa moist. No Gingival or Mucosal Lesions/ Ulcerations Neck: Supple, No JVD, Negative Carotid Bruits Chest wall/Lungs: Air entry diminished in bilateral lung bases. No crepitation/rhonchi Cardiovascular: Regular rate, Regular Rhythm, Normal S1, Normal S2, No M/G/R Abdomen: Bowel Sounds Present, Soft, Non Tender, Non-Distended : No dysuria. No renal angle tenderness. No suprapubic tenderness. Extremities: No edema, Capillary Refill Less than 3 Seconds Skin: Right hip surgical dressing dry. Musculoskeletal: Tenderness present over right thigh and calf muscle. No Tenderness to Palpation of Joints or Extremities Neurological: Cranial nerves II-XII grossly intact, DTR 2+/4. No acute focal neurological deficit. Psych/Mental Status: Flat affect Assessment & Plan Assessment/Plan (1) Anemia: (2) Acute alteration in mental status: (3) Myoclonus: (4) Hyperglycemia due to type 1 diabetes mellitus: PLAN: Plan This is a 78-year-old male was admitted after recent discharge on 02/27 for right hip fracture and then surgery for altered mental status, confusion and disorientation and incoherent speech. His also said that he was having involuntary movement/myoclonus on right lower extremity since surgery. 1. Acute encephalopathy with myoclonus most likely toxic metabolic encephalopathy: Patient being admitted in PCU. CT head does not show any acute pathology. EEG was done. MRI brain ordered. Teleneurology consult ordered. I think it is may be due to medication induced possible toxic metabolic encephalopathy. Was on gabapentin 300 mg 3 times daily which is on hold but plan to resume 100 mg 3 times daily. Patient also on oxycodone and Ultram which might be responsible for encephalopathy and constipation. Gabapentin, oxycodone and sertraline increases the risk of SSRI toxicity or serotonin syndrome but unclear whether the patient had as the H&P does not mention about clonus, muscle rigidity fever, tachycardia or tachypnea but had myoclonus, spasm and confusion 2. Constipation probably opioid-induced: Dulcolax suppository ordered along with MiraLAX and senna S. Abdominal exam is benign. 3. Insulin-dependent diabetes with hyperglycemia complicated with diabetic nephropathy and neuropathy: No signs of DKA. Recent A1c 8.6. On home basal U insulin 18 units at night and prandial insulin 6 units with meal. Accu-Chek before meals and at bedtime with Humalog sliding scale coverage and hypoglycemia protocol. -No signs of DKA 4. End-stage renal disease-HD dependent: Has AV fistula. Patient is getting dialyzed today. His dialysis days typically TTS. Yard Clerk was consulted. 5. Chronic anemia suspect related to recent surgery and baseline renal disease: Severe anemia with H&H 7.1/21.5%. Today 7.7/22.9% slightly better. Continue iron supplementation. 6. Cardiac conditions: Moderate aortic stenosis, mild AI, nonobstructive CAD, hypertension, dyslipidemia and PAF on Eliquis 2.5 mg twice daily. New diagnosis PAF after recent hospitalization for hip fracture. Last echo 02/26/2024 shows moderate aortic stenosis with mild aortic valve insufficiency and an EF of 60%. Patient on baby aspirin, amlodipine, atorvastatin, clonidine, Lasix and metoprolol.Cardiac catheterization in 2008 which showed minimal coronary disease and stress testing done on 11/2022 with no evidence of ischemic changes 7. Recent right hip fracture secondary to mechanical fall -Hemiarthroplasty performed on 02/25/2024 -PT/OT consultation -On apixaban for DVT prophylaxis. Muscle relaxant ordered. Low-dose pain oxycodone 2.5 to 5 mg. 8. BPH with obstruction and history of prostate cancer in remission -Continue with Flomax/finasteride 9. Other multiple comorbidities including GERD, PMR; completed steroid taper, anxiety and depression 10. DVT prophylaxis -Continue apixaban 2.5 mg p.o. twice daily CODE STATUS -Full code as verified with at the time of admission as patient was not alert and oriented x 3 at that time Charges/Coding Addendum Addendum: Total time of the visit including total time spent in counseling or coordination of care, (more than 50% of the total time, spent in obtaining medical information from nurses and other ancillary care providers ,explaining to the patient about labs, imaging, diagnosis and management of active complex medical conditions), change in mental status, medication review, discussion with diesel engine mechanic and neurologist, review of labs and imaging, clinical update given to patient's is 35 minutes. Visit Charges Inpatient E&M: 70899 [facility] Hosp L3
[2024-03-01 07:56] LABS: Bedside Glucose 107 mg/dL (74-106)
[2024-03-01] MEDS: PureFlow B 3K Dialysis Soln 1 BAG 6 BAG PF (08:01)
[2024-03-01] MEDS: 0.9% Normal Saline 1,000 ML IV.SOLN. 1000 ML OPERA.SITE (08:01)
--- NOTE | 2024-03-01 10:45 | CASEMGMT ---
Patient was just discharged to [facility]. GONZALES spoke with patient's Ghazala and she confirmed the plan is for patient to return to [facility] at discharge. Plan: D/c back to [facility] when medically ready. Felisha DICKSON
[2024-03-01] MEDS: Insulin Lispro 100 UNIT/ML INSULN.PEN 6 UNIT SC ×2 (11:14→16:37)
[2024-03-01] MEDS: Epoetin Alfa epbx 10,000 UNIT/ML 20000 UNIT IV (11:17)
--- NOTE | 2024-03-01 11:19 | CON.PCM.RE_ITS ---
<Statement entered by Maximilian Maldonado MD - 03/01/24 22:15> I have personally performed a face to face assessment of the patient and have reviewed the ANUJ Note. Consult for ESRD and dialysis management. The patient is a 78-year-old male with past history of ESRD, hypertension, CAD, HFrEF, PAD, hyperlipidemia, prostate cancer, and polymyalgia rheumatica. Patient presented to the hospital on 02/24/2024 after ground-level fall resulting in right hip fracture. The patient status post left hemiarthroplasty and was discharged on 02/28/2024. Patient returned to the hospital on 02/29/2024 with altered mental status thought to be secondary to high dose of gabapentin. Nephrology is asked to the patient because of ESRD. Vital signs and physical examination as below. Impression/Plan: ESRD. Patient usually dialyzes on TTS schedule at [facility]. We have arranged for an saw patient during the dialysis treatment today. Patient tolerated dialysis well. Next treatment will be scheduled on 03/03/2024. Documented by User: SHAMAR Park 03/01/24 11:33 Assessment & Plan Assessment/Plan (1) End stage renal disease: (2) Acute alteration in mental status: (3) Anemia: PLAN: Plan This is a pleasant 78-year-old male with past medical history significant for ESRD on hemodialysis Thursday, last dialyzed Thursday, February 26 who was admitted to the hospital for evaluation of altered mental status changes. Patient had a fall last week sustaining right hip fracture and underwent right hip surgery last week. He was discharged to [facility] but readmitted for evaluation of altered mental status changes. Nephrology consulted as patient has a history of ESRD and is on hemodialysis. We will continue dialysis likely on Thursday schedule for patient while he is in the hospital. Plan dialysis today over 4 hours with ~1.5L fluid removal. Current EDW is 54 kg. Patient typically does not have large fluid gains and tolerates fluid removal with dialysis. Patient has history of anemia of chronic disease, will receive NIKUNJ and we will monitor hemoglobin trends. Hemoglobin 7.7. Patient had been receiving gabapentin 300 mg 3 times daily, this has been stopped. Patient complaining of constipation, he is receiving miralax bid and dulcolax. Appetite poor, patient does not need renal diet restrictions, will monitor potassium levels. Will also order protein supplement. Further orders forthcoming as hospitalization evolves, thank you for allowing us to participate in care of Mr. Andre. HPI Consult Data Date of Consult: 03/01/24 HPI Narrative HPI Narrative: DEX ANDRE, is a 78 M with past medical history significant for ESRD on hemodialysis Thursday schedule at [facility] who was brought to the emergency room yesterday for evaluation of altered mental status changes. Last week patient was admitted to the hospital after suffering a fall and sustaining right hip fracture, he underwent surgery on 02/25/2024. He was discharged to [facility] on 02/27. Patient received hemodialysis while in the hospital with last hemodialysis session on 02/26. Nephrology consulted for for history of ESRD, for hemodialysis management. This morning patient was seen and evaluated on hemodialysis, he is alert and oriented but having difficult time recalling recent events. His Ghazala is at bedside. Patient is complaining of constipation [facility] Medical History Fracture of femoral neck, right, open Carotid stenosis Anxiety and depression Carotid artery disease Lipohypertrophy due to insulin injection Dyslipidemia Carotid bruit Coronary artery disease Chronic neck pain Debility Cancer Open wound Polymyalgia arteritica Low iron Leg cramps History of edema Cardiology follow-up encounter Prostate cancer Dependent on hemodialysis NPDR (nonproliferative diabetic retinopathy) Nonrheumatic aortic (valve) stenosis History of non-ST elevation myocardial infarction (NSTEMI) End stage renal disease Leukocytosis Edema of left upper arm HFrEF (heart failure with reduced ejection fraction) Acquired neutrophilia Aortic valve stenosis 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 1 diabetes mellitus Chronic neck and back pain Skin mole Fatigue Watery eyes CKD (chronic kidney disease) stage 4, GFR 15-29 ml/min Aortic root dilatation Olecranon bursitis, left elbow Mediastinal mass Type 1 diabetes mellitus with hyperglycemia Olecranon bursitis, right elbow Unintentional weight loss of more than 10 pounds Swelling of right elbow Heart murmur Contact with or suspected exposure to other viral communicable disease Acute bronchitis Insulin dependent diabetes mellitus CKD (chronic kidney disease), stage IV Osteopenia Wears hearing aid Wears glasses Wears dentures Alcohol use Insulin dependent diabetes mellitus Arthritis High cholesterol Back pain Dietary restriction Former smoker Shortness of breath on exertion History of pain when walking History of stress test History of echocardiogram Nicotine dependence, cigarettes, uncomplicated COPD (chronic obstructive pulmonary disease) Episode of syncope Mass of lung REYES (dyspnea on exertion) Wears hearing aid in both ears Hearing loss, left Hearing loss, right Kidney stones Smoker Hypertension Chronic kidney insufficiency Diabetic retinopathy associated with type 1 diabetes mellitus Benign essential hypertension Stage 3 chronic kidney disease due to type 1 diabetes mellitus Diabetic polyneuropathy associated with type 1 diabetes mellitus Essential hypertension Mixed hyperlipidemia Vision problem Prostate disease Osteoarthritis Hearing problem COPD (chronic obstructive pulmonary disease) Cataracts, bilateral Bone fracture Back problem Anemia Bronchitis Family history of hyperlipidemia Family history of hypertension Headache Dyspnea on exertion Hyperlipidemia Nicotine abuse Atherosclerotic heart disease of [place] coronary artery without angina pectoris [facility] use of drug Sleep apnea Hypertension Home Medications ?Medication ?Instructions ?Recorded ?Last Taken ?Type aspirin 81 mg tablet,delayed 81 mg PO QDAY 06/15/17 03/01/23 History release (Adult Low Dose Aspirin) finasteride 5 mg tablet (Proscar) 5 mg PO DAILY 06/16/17 Unknown History flash glucose scanning reader #2 ea 03/28/22 Unknown Rx (FreeStyle Tani 2 [place]) flash glucose sensor (FreeStyle #2 ea 03/28/22 Unknown Rx Tani 2 Sensor kit) cholecalciferol (vitamin D3) 125 125 mcg PO DAILY 05/05/22 Unknown History mcg (5,000 unit) capsule PureFlow B 2K Dialysis Soln 6 bag perfusion UD ##0 12/12/22 Unknown Rx acetaminophen 325 mg tablet 650 mg (2 x 325 mg) PO Q4H PRN PRN 12/12/22 Unknown Rx Fever, pain -01/20 #0 tabs insulin lispro 100 unit/mL See Protocol subcut ACHS 01/14/23 Unknown History subcutaneous pen (Humalog KwikPen (U-100) Insulin) calcium 600 mg (as 1 cap PO DAILY 01/23/23 Unknown History carbonate)-vitamin D3 10 mcg (400 unit) capsule amlodipine 5 mg tablet 5 mg PO DAILY 01/26/23 03/02/23 History insulin glargine 100 unit/mL (3 8 unit subcut QPM DM 01/28/23 Unknown History mL) subcutaneous pen (Lantus Solostar U-100 Insulin) insulin lispro 100 unit/mL 6 unit subcut TIDAC 10/18/23 Unknown History subcutaneous pen (Humalog KwikPen (U-100) Insulin) foam bandage 4 X 4 (Mepilex) #5 ea 01/29/23 Unknown Rx vitamins A,C,E-fvhp-kdpfxf 4,296 1 cap PO DAILY #90 caps 02/27/23 Unknown Rx mcg-226 mg-90 mg capsule (ICaps AREDS) clonidine HCl 0.1 mg tablet 0.1 mg PO BID 01/29/24 Unknown History docusate sodium 100 mg capsule 200 mg PO QDAY 01/29/24 Unknown History folic acid 400 mcg tablet 400 mcg PO DAILY 01/29/24 Unknown History furosemide 40 mg tablet 40 mg PO DAILY weight gain 01/29/24 Unknown History gabapentin 300 mg capsule 300 mg PO TID 01/29/24 Unknown History magnesium 250 mg tablet 250 mg PO QDAY 01/29/24 Unknown History pantoprazole 40 mg tablet,delayed 40 mg PO BID 01/29/24 Unknown History release renal multivitamin 1 tab PO DAILY 01/29/24 Unknown History tamsulosin 0.4 mg capsule 0.4 mg PO QDAY 01/29/24 Unknown History atorvastatin 40 mg tablet 40 mg PO QHS 02/24/24 Unknown History metoprolol tartrate 25 mg tablet 25 mg PO DAILY 02/24/24 Unknown History aluminum-mag hydroxide-simethicone 30 ml PO Q6H PRN PRN Gastric 02/28/24 Unknown Rx 400 mg-400 mg-40 mg/5 mL oral susp Burning #0 mL (Mag-Al Plus Extra Strength) apixaban 5 mg tablet (Eliquis) 2.5 mg (1/2 x 5 mg) PO BID 30 days 02/28/24 Unknown Rx #30 tabs ferrous sulfate 325 mg (65 mg 325 mg PO DAILY #30 tabs 02/28/24 Unknown Rx iron) tablet (Iron (ferrous sulfate)) melatonin 3 mg tablet 3 mg PO QHS PRN PRN Insomnia #0 02/28/24 Unknown Rx tabs oxycodone 5 mg tablet 5 mg PO Q4H PRN PRN Pain Score 02/28/24 Unknown Rx 4-10 3 days #10 tabs sertraline 50 mg tablet 50 mg PO DAILY mood 02/29/24 Unknown History Allergy/AdvReac Type Severity Reaction Status Date / Time levofloxacin (From [employer]) Allergy Hives Verified 02/29/24 10:35 vancomycin AdvReac Severe Rash Verified 02/29/24 10:35 Family History Father Diabetes Hypertension Family history of hyperlipidemia Asthma Kidney disease Mother Diabetes Brother Cancer Throat cancer Brother CAD (coronary artery disease) Myocardial infarction, Onset Age: 52 Sister Family history of hyperlipidemia Hypertension Diabetes Unknown Alcoholism Arthritis Depression Diabetes Hypertension Hyperlipidemia Osteoporosis Respiratory disease Pancreatic cancer Other Family history of hypertension Surgical History History of hip surgery S/P arteriovenous (AV) fistula creation Fracture of left patella Wrist fracture, bilateral Fracture of left upper extremity History of colonoscopy (~2013) History of bilateral inguinal hernia repair (~2007) History of hernia repair (~1991) History of hemorrhoidectomy (~2000) stent replacement for right sided kidney stome Social History household members: spouse Smoking Status: Current every day smoker tobacco type: cigarettes Tobacco: How many years used: 50 alcohol intake: never substance use type: does not use caffeine: Yes Type: coffee Number of servings: 2 what type of physical activity do you participate in: none seatbelt use: sometimes do you feel safe at home: Yes ROS ROS Narrative As in HPI Physical Exam Narrative Alert and orient x 3, no apparent distress S1, S2, RRR Lung sounds clear Abdomen soft No edema AV fistula left arm Lab / Micro Data 03/01/24 05:36 03/01/24 11:45 Labs: Laboratory Results - last 24 hr 02/29/24 10:37: TSH 1.930 02/29/24 11:17: Urine Color Yellow, Urine Clarity Clear, Urine pH 5.0, Ur Specific [place] 1.015, Urine Protein 100 H, Urine Glucose (UA) 250 H, Urine Ketones Negative, Urine Occult Blood 250 H, Urine Nitrite Negative, Urine Bilirubin Negative, Urine Urobilinogen Normal, Ur Leukocyte Esterase 25 H, Urine RBC 10-25 SEEN, Urine WBC 0-5 SEEN, Ur Squamous Epith Cells 0 SEEN, Amorphous Sediment 2+ URATE, Urine Bacteria 0 SEEN, Hyaline Casts 0-5 SEEN, Urine Mucus 0 SEEN 02/29/24 13:53: Ammonia 20.0 02/29/24 16:18: POC Glucose 67 L 02/29/24 18:43: POC Glucose 178 H 02/29/24 22:42: POC Glucose 327 H 03/01/24 05:36: WBC 6.7, RBC 2.36 L, Hgb 7.7 L, Hct 22.9 L, MCV 97.0 H, MCH 32.6 H, MCHC 33.6, RDW Std Deviation 48.0 H, RDW Coeff of [place] 13.8, Plt Count 269, MPV 10.7, Immature Gran % (Auto) 0.500, Neut % (Auto) 72.4 H, Lymph % (Auto) 11.7 L, [place] % (Auto) 11.0 H, Eos % (Auto) 3.8, Baso % (Auto) 0.6, Absolute Neuts (auto) 4.8, Absolute Lymphs (auto) 0.78 L, Nucleated RBC % 0, Sodium 134 L , Potassium 4.1, Chloride 101, Carbon Dioxide 25.0, Anion Gap 9, BUN 79 H, C reatinine 4.59 H, Estim Creat Clear Calc 11.42, Est GFR (MDRD) Af Amer 16 L, Est GFR (MDRD) Non-Af 13 L, BUN/Creatinine Ratio 17.2, Glucose 118 H, Calcium 8.1 L, Phosphorus 4.5, Magnesium 2.4 03/01/24 07:36: POC Glucose 107 H ABG Data ABG results: ABG 02/29/24 14:20 Specimen Type ART Sample Site R Radial pH 7.42 Bicarbonate Actual 25.0 Total CO2 26 Base Excess 0 O2 Saturation 93 L ABG pCO2 38.9 ABG pO2 65 L Ren Test Positive O2 Delivery Device Room Air Vent Mode Not entered Imaging Radiology Impression Brain CT 02/29/24 12:30 IMPRESSION: Chronic involutional changes of the brain. Stable opacification of the left maxillary sinus. Electronically Signed: Elvis Green MD at 12:49 EST , Documented by User: Dr. Maximilian Maldonado MD 03/01/24 22:15 Assessment & Plan Assessment/Plan (1) End stage renal disease: (2) Acute alteration in mental status: (3) Anemia: HPI Consult Data Date of Consult: 03/01/24 [facility] Medical History Fracture of femoral neck, right, open Carotid stenosis Anxiety and depression Carotid artery disease Lipohypertrophy due to insulin injection Dyslipidemia Carotid bruit Coronary artery disease Chronic neck pain Debility Cancer Open wound Polymyalgia arteritica Low iron Leg cramps History of edema Cardiology follow-up encounter Prostate cancer Dependent on hemodialysis NPDR (nonproliferative diabetic retinopathy) Nonrheumatic aortic (valve) stenosis History of non-ST elevation myocardial infarction (NSTEMI) End stage renal disease Leukocytosis Edema of left upper arm HFrEF (heart failure with reduced ejection fraction) Acquired neutrophilia Aortic valve stenosis 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 1 diabetes mellitus Chronic neck and back pain Skin mole Fatigue Watery eyes CKD (chronic kidney disease) stage 4, GFR 15-29 ml/min Aortic root dilatation Olecranon bursitis, left elbow Mediastinal mass Type 1 diabetes mellitus with hyperglycemia Olecranon bursitis, right elbow Unintentional weight loss of more than 10 pounds Swelling of right elbow Heart murmur Contact with or suspected exposure to other viral communicable disease Acute bronchitis Insulin dependent diabetes mellitus CKD (chronic kidney disease), stage IV Osteopenia Wears hearing aid Wears glasses Wears dentures Alcohol use Insulin dependent diabetes mellitus Arthritis High cholesterol Back pain Dietary restriction Former smoker Shortness of breath on exertion History of pain when walking History of stress test History of echocardiogram Nicotine dependence, cigarettes, uncomplicated COPD (chronic obstructive pulmonary disease) Episode of syncope Mass of lung REYES (dyspnea on exertion) Wears hearing aid in both ears Hearing loss, left Hearing loss, right Kidney stones Smoker Hypertension Chronic kidney insufficiency Diabetic retinopathy associated with type 1 diabetes mellitus Benign essential hypertension Stage 3 chronic kidney disease due to type 1 diabetes mellitus Diabetic polyneuropathy associated with type 1 diabetes mellitus Essential hypertension Mixed hyperlipidemia Vision problem Prostate disease Osteoarthritis Hearing problem COPD (chronic obstructive pulmonary disease) Cataracts, bilateral Bone fracture Back problem Anemia Bronchitis Family history of hyperlipidemia Family history of hypertension Headache Dyspnea on exertion Hyperlipidemia Nicotine abuse Atherosclerotic heart disease of [place] coronary artery without angina pectoris 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 Sleep apnea Hypertension Home Medications ?Medication ?Instructions ?Recorded ?Last Taken ?Type aspirin 81 mg tablet,delayed 81 mg PO QDAY 06/15/17 03/01/23 History release (Adult Low Dose Aspirin) finasteride 5 mg tablet (Proscar) 5 mg PO DAILY 06/16/17 Unknown History flash glucose scanning reader #2 ea 03/28/22 Unknown Rx (FreeStyle Tani 2 [place]) flash glucose sensor (FreeStyle #2 ea 03/28/22 Unknown Rx Tani 2 Sensor kit) cholecalciferol (vitamin D3) 125 125 mcg PO DAILY 05/05/22 Unknown History mcg (5,000 unit) capsule PureFlow B 2K Dialysis Soln 6 bag perfusion UD ##0 12/12/22 Unknown Rx acetaminophen 325 mg tablet 650 mg (2 x 325 mg) PO Q4H PRN PRN 12/12/22 Unknown Rx Fever, pain -01/20 #0 tabs insulin lispro 100 unit/mL See Protocol subcut ACHS 01/14/23 Unknown History subcutaneous pen (Humalog KwikPen (U-100) Insulin) calcium 600 mg (as 1 cap PO DAILY 01/23/23 Unknown History carbonate)-vitamin D3 10 mcg (400 unit) capsule amlodipine 5 mg tablet 5 mg PO DAILY 01/26/23 03/02/23 History insulin glargine 100 unit/mL (3 8 unit subcut QPM DM 01/28/23 Unknown History mL) subcutaneous pen (Lantus Solostar U-100 Insulin) insulin lispro 100 unit/mL 6 unit subcut TIDAC 01/28/23 Unknown History subcutaneous pen (Humalog KwikPen (U-100) Insulin) foam bandage 4 X 4 (Mepilex) #5 ea 01/29/23 Unknown Rx vitamins A,C,X-oldk-pntwed 4,296 1 cap PO DAILY #90 caps 02/27/23 Unknown Rx mcg-226 mg-90 mg capsule (ICaps AREDS) clonidine HCl 0.1 mg tablet 0.1 mg PO BID 01/29/24 Unknown History docusate sodium 100 mg capsule 200 mg PO QDAY 01/29/24 Unknown History folic acid 400 mcg tablet 400 mcg PO DAILY 01/29/24 Unknown History furosemide 40 mg tablet 40 mg PO DAILY weight gain 01/29/24 Unknown History gabapentin 300 mg capsule 300 mg PO TID 01/29/24 Unknown History magnesium 250 mg tablet 250 mg PO QDAY 01/29/24 Unknown History pantoprazole 40 mg tablet,delayed 40 mg PO BID 01/29/24 Unknown History release renal multivitamin 1 tab PO DAILY 01/29/24 Unknown History tamsulosin 0.4 mg capsule 0.4 mg PO QDAY 01/29/24 Unknown History atorvastatin 40 mg tablet 40 mg PO QHS 02/24/24 Unknown History metoprolol tartrate 25 mg tablet 25 mg PO DAILY 02/24/24 Unknown History aluminum-mag hydroxide-simethicone 30 ml PO Q6H PRN PRN Gastric 02/28/24 Unknown Rx 400 mg-400 mg-40 mg/5 mL oral susp Burning #0 mL (Mag-Al Plus Extra Strength) apixaban 5 mg tablet (Eliquis) 2.5 mg (1/2 x 5 mg) PO BID 30 days 02/28/24 Unknown Rx #30 tabs ferrous sulfate 325 mg (65 mg 325 mg PO DAILY #30 tabs 02/28/24 Unknown Rx iron) tablet (Iron (ferrous sulfate)) melatonin 3 mg tablet 3 mg PO QHS PRN PRN Insomnia #0 02/28/24 Unknown Rx tabs oxycodone 5 mg tablet 5 mg PO Q4H PRN PRN Pain Score 02/28/24 Unknown Rx 4-10 3 days #10 tabs sertraline 50 mg tablet 50 mg PO DAILY mood 02/29/24 Unknown History Allergy/AdvReac Type Severity Reaction Status Date / Time levofloxacin (From [employer]) Allergy Hives Verified 02/29/24 10:35 vancomycin AdvReac Severe Rash Verified 02/29/24 10:35 Family History Father Diabetes Hypertension Family history of hyperlipidemia Asthma Kidney disease Mother Diabetes Brother Cancer Throat cancer Brother CAD (coronary artery disease) Myocardial infarction, Onset Age: 52 Sister Family history of hyperlipidemia Hypertension Diabetes Unknown Alcoholism Arthritis Depression Diabetes Hypertension Hyperlipidemia Osteoporosis Respiratory disease Pancreatic cancer Other Family history of hypertension Surgical History History of hip surgery S/P arteriovenous (AV) fistula creation Fracture of left patella Wrist fracture, bilateral Fracture of left upper extremity History of colonoscopy (~2013) History of bilateral inguinal hernia repair (~2007) History of hernia repair (~1991) History of hemorrhoidectomy (~2000) stent replacement for right sided kidney stome Social History household members: spouse Smoking Status: Current every day smoker tobacco type: cigarettes Tobacco: How many years used: 50 alcohol intake: never substance use type: does not use caffeine: Yes Type: coffee Number of servings: 2 what type of physical activity do you participate in: none seatbelt use: sometimes do you feel safe at home: Yes Lab / Micro Data 03/01/24 05:36 03/01/24 11:45
[2024-03-01 11:34] LABS: Bedside Glucose 164 mg/dL (74-106)
--- NOTE | 2024-03-01 11:53 | MRI_ITS ---
EXAM: MR HEAD WITHOUT INTRAVENOUS CONTRAST CLINICAL INDICATION: AMS, involuntary movement, myoclonus -- Right hip surgery hemiarthroplasty on 02/25/2024 TECHNIQUE: Multiplanar and multisequence MR images of the brain were obtained without intravenous contrast. COMPARISON: CT brain 02/29/2024 FINDINGS: BRAIN AND EXTRA-AXIAL SPACES: No restricted diffusion to suggest acute ischemia. Increased T2 signal intensity within the cerebral white matter, left side of the cerebellar vermis and corpus callosum suggestive of chronic microvascular change. Prominence of the cortical sulci and ventricles related to volume loss change. No acute hemorrhage or mass effect. SELLA: Normal. Normal sella turcica, pituitary gland, infundibular stalk, optic chiasm and hypothalamus. AUDITORY SYSTEM: Normal. The internal auditory canals are patent. BONES/JOINTS: Intact calvarium. SINUSES: Opacified left maxillary sinus again noted. MASTOID AIR CELLS: Clear. ORBITS: Unremarkable as visualized. Both globes, extraocular muscles, optic nerves and retrobulbar fat appear unremarkable. VASCULATURE: Unremarkable as visualized. Normal flow voids in the major intracranial circulation. MRI/Brain without Contrast IMPRESSION: No acute intracranial abnormality. Chronic microvascular changes. Electronically Signed: Clyde Arevalo MD at 15:52 EST ,
[2024-03-01] MEDS: APIXABAN 2.5 MG TABLET (WCH) PO ×2 (12:20→21:34)
[2024-03-01] MEDS: Metoprolol Tartrate 25 MG Tablet PO (12:20)
[2024-03-01] MEDS: Finasteride 5 MG Tablet PO (12:20)
[2024-03-01] MEDS: Tamsulosin HCl 0.4 MG Capsule PO (12:21)
[2024-03-01] MEDS: Ferrous Sulfate 325 MG Tablet PO (12:21)
[2024-03-01] MEDS: Sertraline 50 MG Tablet PO (12:21)
[2024-03-01] MEDS: Furosemide 40 MG Tablet PO (12:22)
[2024-03-01] MEDS: Pantoprazole Sodium 40 MG Tablet PO ×2 (12:22→21:35)
[2024-03-01] MEDS: Cholecalciferol (Vit D3) 125 MCG CAPSULE (5,000 UNITS) PO (12:22)
[2024-03-01] MEDS: Multivitamin (Healthy Eyes) Capsule 1 CAP PO (12:22)
[2024-03-01] MEDS: cloNIDine HCl 0.1 MG Tablet PO ×2 (12:22→21:34)
[2024-03-01] MEDS: Aspirin E.C. 81 MG Tablet PO (12:22)
[2024-03-01] MEDS: Folic Acid/Vitamin B Comp W-C 1 Capsule 1 CAP PO (12:22)
[2024-03-01] MEDS: amLODIPine 5 MG Tablet PO (12:23)
[2024-03-01] MEDS: Calcium Carb/Vitamin D 1 TABLET Tablet PO (12:23)
[2024-03-01 12:50] LABS: BUN 33 mg/dL (7-18); Creatinine, Serum 1.96 mg/dL (0.70-1.30); EST Glomerular Filtration Rate 35 mL/min (>60); Est Glom Filt Rate - Afr Amer 43 mL/min (>60); Estimated Creatinine Clearance 25.81 ml/min
[2024-03-01] MEDS: Polyethylene Glycol 3350 17 GM PACKET PO ×2 (16:36→21:35)
[2024-03-01] MEDS: Bisacodyl 5 MG Tablet 10 MG PO (16:37)
[2024-03-01] MEDS: Insulin Lispro 100 UNIT/ML INSULN.PEN SC ×2 (16:38→21:34)
[2024-03-01] MEDS: Insulin Glargine-YFGN 100 UNIT/ML Pen 8 UNIT SC (21:34)
[2024-03-01] MEDS: Atorvastatin Calcium 40 MG Tablet PO (21:35)
[2024-03-01] MEDS: Senna/Docusate Sodium 1 Tablet 2 TABLET PO (21:35)
[2024-03-01 22:06] LABS: Bedside Glucose 224 mg/dL (74-106)
[2024-03-02 03:45] VITALS: BP 155/58; PULSE 70; RESP 16; TEMP 36.8; O2SAT 95
[2024-03-02] MEDS: Acetaminophen 500 MG Tablet 1000 MG PO ×2 (05:29→14:16)
[2024-03-02] MEDS: 0.9% Saline Lock 10 ML Syringe IV (05:30)
[2024-03-02 06:27] LABS: Bedside Glucose 294 mg/dL (74-106)
[2024-03-02 07:32] VITALS: BP 150/55; PULSE 61; RESP 12; TEMP 36.8; O2SAT 95
[2024-03-02 08:04] LABS: Bedside Glucose 109 mg/dL (74-106)
[2024-03-02] MEDS: Polyethylene Glycol 3350 17 GM PACKET PO (08:57)
[2024-03-02] MEDS: Finasteride 5 MG Tablet PO (08:57)
[2024-03-02] MEDS: APIXABAN 2.5 MG TABLET (WCH) PO (08:57)
[2024-03-02] MEDS: Pantoprazole Sodium 40 MG Tablet PO (08:58)
[2024-03-02] MEDS: Furosemide 40 MG Tablet PO (08:58)
[2024-03-02] MEDS: Ferrous Sulfate 325 MG Tablet PO (08:58)
[2024-03-02] MEDS: Multivitamin (Healthy Eyes) Capsule 1 CAP PO (08:58)
[2024-03-02] MEDS: Cholecalciferol (Vit D3) 125 MCG CAPSULE (5,000 UNITS) PO (08:58)
[2024-03-02] MEDS: Tamsulosin HCl 0.4 MG Capsule PO (08:58)
[2024-03-02] MEDS: Sertraline 50 MG Tablet PO (08:58)
[2024-03-02] MEDS: cloNIDine HCl 0.1 MG Tablet PO (08:58)
[2024-03-02 08:59] VITALS: PULSE 61
[2024-03-02] MEDS: amLODIPine 5 MG Tablet PO (08:59)
[2024-03-02] MEDS: Folic Acid/Vitamin B Comp W-C 1 Capsule 1 CAP PO (08:59)
[2024-03-02] MEDS: Aspirin E.C. 81 MG Tablet PO (08:59)
[2024-03-02] MEDS: Bisacodyl 5 MG Tablet 10 MG PO (08:59)
[2024-03-02] MEDS: Metoprolol Tartrate 25 MG Tablet PO (08:59)
[2024-03-02] MEDS: Calcium Carb/Vitamin D 1 TABLET Tablet PO (08:59)
[2024-03-02] MEDS: Senna/Docusate Sodium 1 Tablet 2 TABLET PO (09:00)
--- NOTE | 2024-03-02 10:16 | CASEMGMT ---
Discharge Planning Updates sent to [facility] with note that pt will likely return today. Melyssa Michaud DC Planning Asst
--- NOTE | 2024-03-02 10:20 | PCM.TXEXTCAR ---
Diet Diet Order/Speech Therapy: 03/01/24 11:27 Diet: Carbohydrate Controlled Food consistency:: Regular Liquid Consistency:: Regular/Thin Dietary Modifications:: Sodium Restricted Routine Orders/Code Status Suppository Type: Dulcolax 10mg Suppository Frequency: Daily PRN DC O2, CPAP, BIPAP needs Additional Home O2 Discharge instructions: No Wound(s) Right Hip: Wound Type: Surgical Incision Therapies Extremity Affected:: Bilateral Lower Physical Therapy: Eval and Treat Occupational Therapy: Eval and Treat Speech Therapy: Eval and Treat Problem/Diagnosis (1) End stage renal disease: Status: Chronic Code(s): N18.6 - End stage renal disease (2) Acute alteration in mental status: Status: Acute Code(s): R41.82 - Altered mental status, unspecified (3) Anemia: Status: Acute Code(s): D64.9 - Anemia, unspecified Plan This is a 78-year-old male was admitted after recent discharge on 02/27 for right hip fracture and then surgery for altered mental status, confusion and disorientation and incoherent speech. His also said that he was having involuntary movement/myoclonus on right lower extremity since surgery. 1. Acute encephalopathy with myoclonus most likely toxic metabolic encephalopathy: Patient being admitted in PCU. CT head does not show any acute pathology. EEG was done. MRI brain ordered. Teleneurology consult ordered. I think it is may be due to medication induced possible toxic metabolic encephalopathy. Was on gabapentin 300 mg 3 times daily which is on hold but plan to resume 100 mg 3 times daily. Patient also on oxycodone and Ultram which might be responsible for encephalopathy and constipation. Gabapentin, oxycodone and sertraline increases the risk of SSRI toxicity or serotonin syndrome but unclear whether the patient had as the H&P does not mention about clonus, muscle rigidity fever, tachycardia or tachypnea but had myoclonus, spasm and confusion 2. Constipation probably opioid-induced: Dulcolax suppository ordered along with MiraLAX and senna S. Abdominal exam is benign. 3. Insulin-dependent diabetes with hyperglycemia complicated with diabetic nephropathy and neuropathy: No signs of DKA. Recent A1c 8.6. On home basal U insulin 18 units at night and prandial insulin 6 units with meal. Accu-Chek before meals and at bedtime with Humalog sliding scale coverage and hypoglycemia protocol. -No signs of DKA 4. End-stage renal disease-HD dependent: Has AV fistula. Patient is getting dialyzed today. His dialysis days typically TTS. Lens Blank Gauger was consulted. 5. Chronic anemia suspect related to recent surgery and baseline renal disease: Severe anemia with H&H 7.1/21.5%. Today 7.7/22.9% slightly better. Continue iron supplementation. 6. Cardiac conditions: Moderate aortic stenosis, mild AI, nonobstructive CAD, hypertension, dyslipidemia and PAF on Eliquis 2.5 mg twice daily. New diagnosis PAF after recent hospitalization for hip fracture. Last echo 02/26/2024 shows moderate aortic stenosis with mild aortic valve insufficiency and an EF of 60%. Patient on baby aspirin, amlodipine, atorvastatin, clonidine, Lasix and metoprolol.Cardiac catheterization in 2008 which showed minimal coronary disease and stress testing done on 11/2022 with no evidence of ischemic changes 7. Recent right hip fracture secondary to mechanical fall -Hemiarthroplasty performed on 02/25/2024 -PT/OT consultation -On apixaban for DVT prophylaxis. Muscle relaxant ordered. Low-dose pain oxycodone 2.5 to 5 mg. 8. BPH with obstruction and history of prostate cancer in remission -Continue with Flomax/finasteride 9. Other multiple comorbidities including GERD, PMR; completed steroid taper, anxiety and depression 10. DVT prophylaxis -Continue apixaban 2.5 mg p.o. twice daily CODE STATUS -Full code as verified with at the time of admission as patient was not alert and oriented x 3 at that time Allergies/Procedures Done in Hospital Allergies levofloxacin (From Levaquin) Allergy (Verified 02/29/24 10:35) Hives vancomycin Adverse Reaction (Severe, Verified 02/29/24 10:35) Rash Red man's syndrome Type of Care/Length of Stay Estimated LOS: Convalescent Care Less Than 30 days Type of Care Needed: Skilled Rehab Potential: Good Prognosis: Good Additional Orders/Day of Discharge Day of Discharge: 03/02/24 Dietary and Speech Recommendations Dietitian Recommendations/Changes: Adjust to sodium restriction, consistent carbohydrate diet. Continue 120ml nepro PO 4x daily with medpass. Will monitor weight, as available. Reviewed and approved by Galina Jackson, MS, RD, LD. Discharge Plan Admission Admit Date/Time: 02/29/24 14:51 Primary Reason for Your Visit: Altered mental status resolved. Attending Provider: Stanley Kelly Primary Care Provider: Cesar Keenan Consulting Providers: Ken Echevarria; Rhonda Estevez; Negar Snell; Wilbert Montoya; Ramon Shepard; Nelly Garcia; KHARI LAGUNA; Antonette Gonzalez; Yvonne Sims; Immanuel Mckeon; Yuly Monroy; Maria Guadalupe Townsend; Cyndee Teran; Kilo Payne; Dionne Velasquez; Nohemi Caceres; Xavi Rivers; Kaci Escobar; Cristian Ordonez; Karri Nieves; Sampson Zhou; Ariel Granados; Aniket Teague; Kj Landa; Stewart Elder; Cordell Echavarria; Priti Teran; Gabi Larkin Discharge Orders/Prescriptions Prescriptions: New bisacodyl 5 mg Tablet,Delayed Release (Dr/Ec) 10 mg PO DAILY Qty: 0 0RF Rx Instructions: Daily for 3 more days and then as needed tizanidine 2 mg Tablet 4 mg PO Q8H PRN PRN (Reason: Muscle Spasm) 30 Days Qty: 0 0RF sennosides-docusate sodium [Stimulant Laxative Plus] 8.6-50 mg Tablet 2 tab PO BID Qty: 0 0RF Continued finasteride [Proscar] 5 mg tablet 5 mg PO DAILY folic acid 400 mcg tablet 400 mcg PO DAILY (DME) FreeStyle Tani 2 Sensor Kit See Rx Instructions .Route Qty: 2 3RF Rx Instructions: As directed (DME) FreeStyle Tani 2 Hoffman Misc See Rx Instructions .Route Qty: 2 3RF Rx Instructions: As directed cholecalciferol (vitamin D3) 125 mcg (5,000 unit) capsule 125 mcg PO DAILY ICaps AREDS 4,296 mcg-226 mg-90 mg capsule 1 cap PO DAILY Qty: 90 2RF insulin lispro [Humalog KwikPen Insulin] 100 unit/mL insulin pen See Protocol subcut ACHS Protocol: 4. Sliding Scale Insulin High-Med Dosing Condition: 150-199 mg/dl = 2 units Condition: 200-259 mg/dl = 4 units Condition: 260-324 mg/dl = 6 units Condition: 325-374 mg/dl = 8 units Condition: 375-409 mg/dl = 10 units Condition: 410-449 mg/dl = 11 units Condition: Greater than 449 call physician Protocol Text: - Use for Total Daily Dose of Insulin 56-80 units - Patient who are insulin resistant or septic HIGH MEDIUM DOSING ALGORITHM calcium carbonate-vitamin D3 600 mg-10 mcg (400 unit) capsule 1 cap PO DAILY furosemide 40 mg tablet 40 mg PO DAILY insulin glargine [Lantus Solostar U-100 Insulin] 100 unit/mL (3 mL) insulin pen 8 unit SC QPM insulin lispro [Humalog KwikPen Insulin] 100 unit/mL insulin pen 6 unit subcut TIDAC amlodipine 5 mg tablet 5 mg PO DAILY tamsulosin 0.4 mg capsule 0.4 mg PO QDAY pantoprazole 40 mg tablet,delayed release (DR/EC) 40 mg PO BID renal multivitamin 1 tab PO DAILY clonidine HCl 0.1 mg tablet 0.1 mg PO BID magnesium 250 mg tablet 250 mg PO QDAY acetaminophen 325 mg Tablet 650 mg PO Q4H PRN PRN (Reason: Fever, pain -01/20) Qty: 0 0RF Pureflow B 2k Dialysis Soln 6 bag perfusion UD Qty: 0 0RF sertraline 50 mg tablet 50 mg PO DAILY atorvastatin 40 mg tablet 40 mg PO QHS metoprolol tartrate 25 mg tablet 25 mg PO DAILY Rx Instructions: Hold for SBP less than 130 Eliquis 5 mg Tablet 2.5 mg PO BID 30 Days Qty: 30 0RF melatonin 3 mg Tablet 3 mg PO QHS PRN PRN (Reason: Insomnia) Qty: 0 0RF alum-mag hydroxide-simeth [Mag-Al Plus Extra Strength] 400-400-40 mg/5 mL Suspension 30 ml PO Q6H PRN PRN (Reason: Gastric Burning) Qty: 0 0RF ferrous sulfate [Iron (ferrous sulfate)] 325 mg (65 mg iron) tablet 325 mg PO DAILY Qty: 30 0RF (DME) Mepilex 4 X 4 bandage See Rx Instructions .Route Qty: 5 2RF Rx Instructions: As directed Changed oxycodone 5 mg Tablet 2.5 - 5 mg PO Q4H PRN PRN (Reason: Pain Score 4-10) 3 Days Qty: 10 0RF Held aspirin [Adult Low Dose Aspirin] 81 mg tablet,delayed release (DR/EC) 81 mg PO QDAY Hold Instructions: Hold baby aspirin for 1 week until hemoglobin is above 8 g gabapentin 300 mg capsule 300 mg PO TID Hold Instructions: Hold for 3 days then resume 100 mg 3 times daily. Hold it if patient gets lethargy or sleepy. Rx Instructions: Give after Dialysis Discontinued docusate sodium 100 mg capsule 200 mg PO QDAY Referrals / Follow Up: Rolando Castro MD [Med Staff - Active Staff] - Within 1 Week (Follow-up after right hemiarthroplasty) Cesar Keenan MD [Primary Care Provider] - Maria Guadalupe Townsend MD [Med Staff - Consulting] - Within 1 Month Disposition Disposition (needs filled in before D/C Order can be placed): Care Home Facility
[2024-03-02] MEDS: Insulin Lispro 100 UNIT/ML INSULN.PEN SC (11:28)
[2024-03-02] MEDS: Insulin Lispro 100 UNIT/ML INSULN.PEN 6 UNIT SC (11:28)
[2024-03-02 11:48] LABS: Bedside Glucose 269 mg/dL (74-106)
--- NOTE | 2024-03-02 13:30 | CON.PCM.NE_ITS ---
Assessment and Plan: Neuro Assessment/Plan DEX VALLE is a 78 M with recent hip surgery 02/23, being evaluated by Teleneurology for episodes of myoclonic jerking and confusion . Since surgery, was started on oxycodone and was on high dose gabapentin both of which can cause confusion and gabapentin can cause myoclonic jerking. EEG consistent with encephalopathy, no seizures. Ct head and MRI Brain negative for infection. Myoclonic jerking and confusion most likely drugs induced . Agree with decreasing dose of gabapentin and oxycodone. After dialysis , Jerking should start to decrease in frequency however may take weeks before complete resolution.Confusion resolved. Diagnosis: Drug induced myoclonus. I personally attended this patient and spent a total time of 55 minutes evaluating this patient including clinical assessment, review of chart, medical history imaging, and determining appropriate treatment and workup. HPI Consult Data Date of Consult: 03/02/24 HPI Narrative HPI Narrative: DEX VALLE, is a 78 M who presents with jerking and episodes of confusion since his right hip surgery on 02/28. As per HPI, He was discharged from here on 02/28/2024 to [facility] and she reported that he was a little bit confused with some of the jerking as noted however the jerking is progressively gotten worse and his mental status has slowly declined. She did also report that his basal insulin was held yesterday for an unknown reason. He is on chronic dialysis which she receives on Thursday, , and Thursday with his last dialysis being here on Thursday prior to discharge. Patient only was able to tell me that he was having some hip pain other than that he denied any complaints however he was confused. Patient's reports at baseline he is A&O x 3 however he does have some mild cognitive impairment. In the emergency department he was oriented to self and place but not time. He was transition from Ultram to oxycodone every 4 hours. Vital signs on presentation showed a temperature 97.4, heart rate 61, respiratory rate 18, blood pressure 125/61 and sats are 91 to 94% on room air. His labs are altogether not not much different from yesterday. CBC is overtly unremarkable. His hemoglobin is 7.1 and stable when compared to previous. Platelet count is normal. Chemistry panel shows mild hyponatremia which is expected given his last dialysis was Thursday, BUN of 76 and a creatinine of 4.76 and a glucose of 365. He had a recent hemoglobin A1c on 02/25/2024 at which time was found to be 8.6. His UA is not consistent with infection. His ammonia level was 22. TSH was 1.93. We obtained a blood gas due to his altered mentation and his pH was 7.42 with a pCO2 of 38.9 and a pO2 of 65 on room air with a sat of 93%. Chest x-ray shows only chronic interstitial changes no acute changes from previous. CT the brain shows chronic involutional changes and stable opacification of the left maxillary sinus. [facility] Medical History Fracture of femoral neck, right, open Carotid stenosis Anxiety and depression Carotid artery disease Lipohypertrophy due to insulin injection Dyslipidemia Carotid bruit Coronary artery disease Chronic neck pain Debility Cancer Open wound Polymyalgia arteritica Low iron Leg cramps History of edema Cardiology follow-up encounter Prostate cancer Dependent on hemodialysis NPDR (nonproliferative diabetic retinopathy) Nonrheumatic aortic (valve) stenosis History of non-ST elevation myocardial infarction (NSTEMI) End stage renal disease Leukocytosis Edema of left upper arm HFrEF (heart failure with reduced ejection fraction) Acquired neutrophilia Aortic valve stenosis 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 1 diabetes mellitus Chronic neck and back pain Skin mole Fatigue Watery eyes CKD (chronic kidney disease) stage 4, GFR 15-29 ml/min Aortic root dilatation Olecranon bursitis, left elbow Mediastinal mass Type 1 diabetes mellitus with hyperglycemia Olecranon bursitis, right elbow Unintentional weight loss of more than 10 pounds Swelling of right elbow Heart murmur Contact with or suspected exposure to other viral communicable disease Acute bronchitis Insulin dependent diabetes mellitus CKD (chronic kidney disease), stage IV Osteopenia Wears hearing aid Wears glasses Wears dentures Alcohol use Insulin dependent diabetes mellitus Arthritis High cholesterol Back pain Dietary restriction Former smoker Shortness of breath on exertion History of pain when walking History of stress test History of echocardiogram Nicotine dependence, cigarettes, uncomplicated COPD (chronic obstructive pulmonary disease) Episode of syncope Mass of lung REYES (dyspnea on exertion) Wears hearing aid in both ears Hearing loss, left Hearing loss, right Kidney stones Smoker Hypertension Chronic kidney insufficiency Diabetic retinopathy associated with type 1 diabetes mellitus Benign essential hypertension Stage 3 chronic kidney disease due to type 1 diabetes mellitus Diabetic polyneuropathy associated with type 1 diabetes mellitus Essential hypertension Mixed hyperlipidemia Vision problem Prostate disease Osteoarthritis Hearing problem COPD (chronic obstructive pulmonary disease) Cataracts, bilateral Bone fracture Back problem Anemia Bronchitis Family history of hyperlipidemia Family history of hypertension Headache Dyspnea on exertion Hyperlipidemia Nicotine abuse Atherosclerotic heart disease of [place] coronary artery without angina pectoris penitentiary use of drug Sleep apnea Hypertension Home Medications ?Medication ?Instructions ?Recorded ?Last Taken ?Type aspirin 81 mg tablet,delayed 81 mg PO QDAY 06/15/17 03/01/23 History release (Adult Low Dose Aspirin) finasteride 5 mg tablet (Proscar) 5 mg PO DAILY 06/16/17 Unknown History flash glucose scanning reader #2 ea 03/28/22 Unknown Rx (FreeStyle Tani 2 [place]) flash glucose sensor (FreeStyle #2 ea 03/28/22 Unknown Rx Tani 2 Sensor kit) cholecalciferol (vitamin D3) 125 125 mcg PO DAILY 05/05/22 Unknown History mcg (5,000 unit) capsule PureFlow B 2K Dialysis Soln 6 bag perfusion UD ##0 12/12/22 Unknown Rx acetaminophen 325 mg tablet 650 mg (2 x 325 mg) PO Q4H PRN PRN 12/12/22 Unknown Rx Fever, pain -01/20 #0 tabs insulin lispro 100 unit/mL See Protocol subcut ACHS 01/14/23 Unknown History subcutaneous pen (Humalog KwikPen (U-100) Insulin) calcium 600 mg (as 1 cap PO DAILY 01/23/23 Unknown History carbonate)-vitamin D3 10 mcg (400 unit) capsule amlodipine 5 mg tablet 5 mg PO DAILY 01/26/23 03/02/23 History insulin glargine 100 unit/mL (3 8 unit subcut QPM DM 01/28/23 Unknown History mL) subcutaneous pen (Lantus Solostar U-100 Insulin) insulin lispro 100 unit/mL 6 unit subcut TIDAC 01/28/23 Unknown History subcutaneous pen (Humalog KwikPen (U-100) Insulin) foam bandage 4 X 4 (Mepilex) #5 ea 01/29/23 Unknown Rx vitamins A,C,P-qtyq-fylrun 4,296 1 cap PO DAILY #90 caps 02/27/23 Unknown Rx mcg-226 mg-90 mg capsule (ICaps AREDS) clonidine HCl 0.1 mg tablet 0.1 mg PO BID 01/29/24 Unknown History folic acid 400 mcg tablet 400 mcg PO DAILY 01/29/24 Unknown History furosemide 40 mg tablet 40 mg PO DAILY weight gain 01/29/24 Unknown History gabapentin 300 mg capsule 300 mg PO TID 01/29/24 Unknown History magnesium 250 mg tablet 250 mg PO QDAY 01/29/24 Unknown History pantoprazole 40 mg tablet,delayed 40 mg PO BID 01/29/24 Unknown History release renal multivitamin 1 tab PO DAILY 01/29/24 Unknown History tamsulosin 0.4 mg capsule 0.4 mg PO QDAY 01/29/24 Unknown History atorvastatin 40 mg tablet 40 mg PO QHS 02/24/24 Unknown History metoprolol tartrate 25 mg tablet 25 mg PO DAILY 02/24/24 Unknown History aluminum-mag hydroxide-simethicone 30 ml PO Q6H PRN PRN Gastric 02/28/24 Unknown Rx 400 mg-400 mg-40 mg/5 mL oral susp Burning #0 mL (Mag-Al Plus Extra Strength) apixaban 5 mg tablet (Eliquis) 2.5 mg (1/2 x 5 mg) PO BID 30 days 02/28/24 Unknown Rx #30 tabs ferrous sulfate 325 mg (65 mg 325 mg PO DAILY #30 tabs 02/28/24 Unknown Rx iron) tablet (Iron (ferrous sulfate)) melatonin 3 mg tablet 3 mg PO QHS PRN PRN Insomnia #0 02/28/24 Unknown Rx tabs sertraline 50 mg tablet 50 mg PO DAILY mood 02/29/24 Unknown History bisacodyl 5 mg tablet,delayed 10 mg (2 x 5 mg) PO DAILY #0 tabs 03/02/24 Unknown Rx release oxycodone 5 mg tablet 2.5 - 5 mg (0.5 - 1 x 5 mg) PO Q4H 03/02/24 Unknown Rx PRN PRN Pain Score 4-10 3 days #10 tabs sennosides 8.6 mg-docusate sodium 2 tab PO BID #0 tabs 03/02/24 Unknown Rx 50 mg tablet (Stimulant Laxative Plus) tizanidine 2 mg tablet 4 mg (2 x 2 mg) PO Q8H PRN PRN 03/02/24 Unknown Rx Muscle Spasm 30 days #0 tabs Allergy/AdvReac Type Severity Reaction Status Date / Time levofloxacin (From [facility]) Allergy Hives Verified 02/29/24 10:35 vancomycin AdvReac Severe Rash Verified 02/29/24 10:35 Family History Father Diabetes Hypertension Family history of hyperlipidemia Asthma Kidney disease Mother Diabetes Brother Cancer Throat cancer Brother CAD (coronary artery disease) Myocardial infarction, Onset Age: 52 Sister Family history of hyperlipidemia Hypertension Diabetes Unknown Alcoholism Arthritis Depression Diabetes Hypertension Hyperlipidemia Osteoporosis Respiratory disease Pancreatic cancer Other Family history of hypertension Surgical History History of hip surgery S/P arteriovenous (AV) fistula creation Fracture of left patella Wrist fracture, bilateral Fracture of left upper extremity History of colonoscopy (~2013) History of bilateral inguinal hernia repair (~2007) History of hernia repair (~1991) History of hemorrhoidectomy (~2000) stent replacement for right sided kidney stome Social History household members: spouse Smoking Status: Current every day smoker tobacco type: cigarettes Tobacco: How many years used: 50 alcohol intake: never substance use type: does not use caffeine: Yes Type: coffee Number of servings: 2 what type of physical activity do you participate in: none seatbelt use: sometimes do you feel safe at home: Yes Vital Signs Vital Signs Vital Signs: 03/01/24 16:35 03/01/24 20:13 03/01/24 21:25 Temperature 97.6 F L Temperature Source Oral Pulse Rate 66 Pulse Strength Respiratory Rate 12 Respiratory Effort Normal Non-Labored Respiratory Depth Normal Respiratory Pattern Normal Blood Pressure 156/54 H Blood Pressure Mean 88 Blood Pressure Source Monitor Blood Pressure Position Supine Blood Pressure Location Right Arm Pulse Ox 96 Oxygen Delivery Method Room Air Room Air Room Air 03/01/24 21:26 03/01/24 22:00 03/02/24 03:45 Temperature 98.2 F 98.2 F Temperature Source Oral Oral Pulse Rate 70 70 Pulse Strength Normal (2+) Respiratory Rate 16 16 Respiratory Effort Respiratory Depth Respiratory Pattern Blood Pressure 155/66 H 155/58 H Blood Pressure Mean 95 90 Blood Pressure Source Monitor Monitor Blood Pressure Position Supine Supine Blood Pressure Location Right Arm Right Arm Pulse Ox 94 95 Oxygen Delivery Method Room Air Room Air 03/02/24 03:45 03/02/24 03:45 03/02/24 07:32 Temperature 98.2 F 98.3 F Temperature Source Oral Oral Pulse Rate 70 61 Pulse Strength Respiratory Rate 16 12 Respiratory Effort Normal Non-Labored Respiratory Depth Normal Respiratory Pattern Normal Blood Pressure 155/58 H 150/55 H Blood Pressure Mean 90 86 Blood Pressure Source Monitor Blood Pressure Position Supine Blood Pressure Location Right Arm Pulse Ox 95 95 Oxygen Delivery Method Room Air Room Air Room Air 03/02/24 07:55 03/02/24 08:59 Temperature Temperature Source Pulse Rate 61 Pulse Strength Respiratory Rate Respiratory Effort Respiratory Depth Respiratory Pattern Blood Pressure Blood Pressure Mean Blood Pressure Source Blood Pressure Position Blood Pressure Location Pulse Ox Oxygen Delivery Method Room Air Weight Weight: 60.7 kg Body Mass Index (BMI) 20.9 Physical Exam Neuro Neuro Narrative: -? General: Laying comfortably in bed; in no acute distress. -? HENT: Normal oropharynx and mucosa. Normal external appearance of ears and nose. Exophthalmos. -? Neck: Supple, no pain or tenderness -? CV:? No peripheral edema. -? Pulmonary:? Normal respiratory effort. -? Ext: No cyanosis, edema, or deformity -? Skin: No rash. Normal palpation of skin.? -? Musculoskeletal: full range of motion; no joint tenderness. Normal digits and nails by inspection. No clubbing. -? NEURO: -? Mental Status: The patient was alert and oriented to time, place, and person. Normal recent/remote memory, concentration, and general fund of knowledge. -? Language: speech is fluent.? Naming, repetition, fluency, and comprehension intact. -? Cranial Nerves: PERRL 3 mm/brisk. EOMI, visual toscano full, no facial asymmetry, facial sensation intact, hearing intact, tongue midline, no evidence of atrophy or fibrillations. As performed by the nurse. Sternocleidomastoid and trapezius were equally strong. Soft palate raises equally, no uvular deviations -? Motor: normal bulk, tone, and strength throughout. No pronator drift or satelliting. Difficulty with right lower extremity due to recent surgery otherwise intact. : l R L 3 l R L -? Tone: is normal and bulk is normal -? Sensation- Intact to light touch bilaterally -? Coordination: No dysmetria on [id number], . Lab / Micro Data 03/01/24 05:36 03/01/24 11:45 Labs: Laboratory Results - last 24 hr 03/01/24 16:33: POC Glucose 294 H 03/01/24 21:29: POC Glucose 224 H 03/02/24 07:29: POC Glucose 109 H 03/02/24 11:27: POC Glucose 269 H Imaging Radiology Impression Brain MRI 03/01/24 11:53 IMPRESSION: No acute intracranial abnormality. Chronic microvascular changes. Electronically Signed: Clyde Arevalo MD at 15:52 EST , Active Medications Active Medications Active Medications: Current Medications Generic Name Dose Route Start Last Admin Trade Name Tommieq PRN Reason Stop Dose Admin Acetaminophen 1,000 mg 02/29/24 22:00 03/02/24 05:29 Acetaminophen 500 Mg Tablet PO 1,000 mg Q8 ANAID Administration Amlodipine Besylate 5 mg 03/01/24 10:00 03/02/24 08:59 Amlodipine 5 Mg Tablet PO 5 mg DAILY ANAID Administration Protocol Apixaban 2.5 mg 02/29/24 22:00 03/02/24 08:57 Apixaban 2.5 Mg Tablet ([facility]) PO 2.5 mg BID ANAID Administration Aspirin 81 mg 03/01/24 10:00 03/02/24 08:59 Aspirin E.C. 81 Mg Tablet PO 81 mg DAILY ANAID Administration Atorvastatin Calcium 40 mg 02/29/24 22:00 03/01/24 21:35 Atorvastatin Calcium 40 Mg Tablet PO 40 mg QHS ANAID Administration Bisacodyl 10 mg 03/01/24 10:00 03/02/24 08:59 Bisacodyl 5 Mg Tablet PO 03/03/24 10:01 10 mg DAILY ANAID Administration Calcium/Vitamin D 1 tablet 03/01/24 08:00 03/02/24 08:59 Calcium Carb/Vitamin D 1 Tablet Tablet PO 1 tablet DAILYCM ANAID Administration Cholecalciferol 125 mcg 03/01/24 10:00 03/02/24 08:58 Cholecalciferol (Vit D3) 125 Mcg Capsule (5,000 Units) PO 125 mcg DAILY ANAID Administration Clonidine 0.1 mg 02/29/24 22:00 03/02/24 08:58 Clonidine Hcl 0.1 Mg Tablet PO 0.1 mg BID [facility] Administration Protocol Ferrous Sulfate 325 mg 03/01/24 08:00 03/02/24 08:58 Ferrous Sulfate 325 Mg Tablet PO 325 mg DAILYCM ANAID Administration Finasteride 5 mg 03/01/24 10:00 03/02/24 08:57 Finasteride 5 Mg Tablet PO 5 mg DAILY ANAID Administration Furosemide 40 mg 03/01/24 10:00 03/02/24 08:58 Furosemide 40 Mg Tablet PO 40 mg DAILY ANAID Administration Protocol Insulin Glargine 8 unit 02/29/24 21:00 03/01/24 21:34 Insulin Glargine-Yfgn 100 Unit/Ml Pen SC 8 unit QPM ANAID Administration Insulin Human Lispro 0 unit 02/29/24 16:00 03/02/24 11:28 Insulin Lispro 100 Unit/Ml Insuln.Pen SC 6 u ACHS ANAID Administration Protocol Insulin Human Lispro 6 unit 02/29/24 16:00 03/02/24 11:28 Insulin Lispro 100 Unit/Ml Insuln.Pen SC 6 units TIDAC ANAID Administration Metoprolol Tartrate 25 mg 03/01/24 10:00 03/02/24 08:59 Metoprolol Tartrate 25 Mg Tablet PO 25 mg DAILY [facility] Administration Protocol Multivit/Ca Carb/B Cmplx/FA/Prenat 1 cap 03/01/24 10:00 03/02/24 08:59 Folic Acid/Vitamin B Comp W-C 1 Capsule PO 1 cap DAILY ANAID Administration Multivitamins/Minerals 1 cap 03/01/24 10:00 03/02/24 08:58 Multivitamin (Healthy Eyes) Capsule PO 1 cap DAILY ANAID Administration Nutritional Formula 120 ml 03/01/24 14:00 03/02/24 09:48 Nepro Liquid 120 Ml Liquid PO Not Given 4X/DAY [facility] Ondansetron HCl 4 mg 02/29/24 15:39 Ondansetron 4 Mg/2 Ml Vial IV Q8H PRN PRN NAUSEA/VOMITING Oxycodone HCl 2.5 - 5 mg 03/01/24 13:09 Oxycodone 5 Mg Tablet PO Q8H PRN PRN Pain Score 4-10 Pantoprazole Sodium 40 mg 02/29/24 22:00 03/02/24 08:58 Pantoprazole Sodium 40 Mg Tablet PO 40 mg BID ANAID Administration Polyethylene Glycol 17 gm 03/01/24 10:00 03/02/24 08:57 Polyethylene Glycol 3350 17 Gm Packet PO 17 gm BID ANAID Administration Senna/Docusate Sodium 2 tablet 03/01/24 10:00 03/02/24 09:00 Senna/Docusate Sodium 1 Tablet PO 1 tablet BID ANAID Administration Sertraline HCl 50 mg 03/01/24 10:00 03/02/24 08:58 Sertraline 50 Mg Tablet PO 50 mg DAILY ANAID Administration Sodium Chloride 10 - 40 ml 02/29/24 15:43 03/02/24 05:30 0.9% Saline Lock 10 Ml Syringe IV 10 ml UD PRN Administration SALINE FLUSH Sodium Chloride 10 - 40 ml 03/01/24 14:25 0.9% Saline Lock 10 Ml Syringe IV UD PRN SALINE FLUSH Tamsulosin HCl 0.4 mg 03/01/24 10:00 03/02/24 08:58 Tamsulosin Hcl 0.4 Mg Capsule PO 0.4 mg DAILY ANAID Administration Tizanidine HCl 4 mg 03/01/24 08:15 Tizanidine Hcl 2 Mg Tablet PO Q8H PRN PRN MUSCLE SPASM
--- NOTE | 2024-03-02 13:49 | CASEMGMT ---
Patient is ready for discharge back to [facility]. Plan: d/c back to [facility] under skilled level of care. Physicians will transport patient via wheelchair van. Felisha DICKSON
--- NOTE | 2024-03-02 14:01 | PCM.DC.SUM ---
Providers Date of Admission: 02/29/24 Date of Discharge: 03/02/24 Primary Care Physician: Dr. Cesar Keenan MD Consultations 02/29/24 15:39 Consult: Nephrology Routine Consulting Provider: Maria Guadalupe Townsend Reason for Consult: ESRD-HD EMERGENT Consult: No Notified: Yes Date Notified: 02/29/24 Time Notified: 15:51 Method of Notification: Answering Service 03/01/24 11:55 Consult: Tele-Neurology Routine Consulting Provider: [facility] Reason for Consult: Acute encephalopathy. Myoclonus/involuntary movements EMERGENT Consult: No MD Notified: Yes Date Notified: 03/01/24 Time Notified: 12:12 Method of Notification: Answering Service Nursing Unit Staff Notify [facility] of Tele-Neurology Consult: Yes Reason For Visit: ACUTE ALTERED MENTAL STATUS, LIDIA-JOSEPH RESPIRA Diagnosis Discharge Diagnosis (1) End stage renal disease: Status: Chronic Code(s): N18.6 - End stage renal disease (2) Acute alteration in mental status: Status: Acute Code(s): R41.82 - Altered mental status, unspecified (3) Anemia: Status: Acute Code(s): D64.9 - Anemia, unspecified Plan This is a 78-year-old male was admitted after recent discharge on 02/27 for right hip fracture and then surgery for altered mental status, confusion and disorientation and incoherent speech. His also said that he was having involuntary movement/myoclonus on right lower extremity since surgery. 1. Acute encephalopathy with myoclonus most likely toxic metabolic encephalopathy: Patient being admitted in PCU. CT head does not show any acute pathology. EEG was done. MRI brain ordered. Teleneurology consult ordered. I think it is may be due to medication induced possible toxic metabolic encephalopathy. Was on gabapentin 300 mg 3 times daily which is on hold but plan to resume 100 mg 3 times daily. Patient also on oxycodone and Ultram which might be responsible for encephalopathy and constipation. Gabapentin, oxycodone and sertraline increases the risk of SSRI toxicity or serotonin syndrome but unclear whether the patient had as the H&P does not mention about clonus, muscle rigidity fever, tachycardia or tachypnea but had myoclonus, spasm and confusion 03/02: Patient had MRI yesterday which did not show acute intracranial abnormality. EEG consistent with encephalopathy, no seizures. Imaging was negative for any infection. Patient was evaluated by the teleneurologist. Impression is drug-induced myoclonus probably due to gabapentin and oxycodone. Gabapentin dose decreased to 100 mg 3 times daily after holding for 3 days. Oxycodone dose decreased to 2.5 mg for moderate pain and 5 mg for severe pain respectively. 2. Constipation probably opioid-induced: Dulcolax suppository ordered along with MiraLAX and senna S. Abdominal exam is benign. 03/02: Patient had good bowel movement. Advised to continue Dulcolax suppository for 3 more days and continue MiraLAX and senna X. 3. Insulin-dependent diabetes with hyperglycemia complicated with diabetic nephropathy and neuropathy: No signs of DKA. Recent A1c 8.6. On home basal U insulin 18 units at night and prandial insulin 6 units with meal. Accu-Chek before meals and at bedtime with Humalog sliding scale coverage and hypoglycemia protocol. -No signs of DKA 03/02: Glucose will need more optimally controlled. Follow with PCP 4. End-stage renal disease-HD dependent: Has AV fistula. Patient is getting dialyzed today. His dialysis days typically TTS. Transportation Technician was consulted. 5. Chronic anemia suspect related to recent surgery and baseline renal disease: Severe anemia with H&H 7.1/21.5%. Today 7.7/22.9% slightly better. Continue iron supplementation. 03/02: Hold baby aspirin because of severe anemia. On Eliquis 2.5 mg twice daily. On PPI. 6. Cardiac conditions: Moderate aortic stenosis, mild AI, nonobstructive CAD, hypertension, dyslipidemia and PAF on Eliquis 2.5 mg twice daily. New diagnosis PAF after recent hospitalization for hip fracture. Last echo 02/26/2024 shows moderate aortic stenosis with mild aortic valve insufficiency and an EF of 60%. Patient on baby aspirin, amlodipine, atorvastatin, clonidine, Lasix and metoprolol.Cardiac catheterization in 2008 which showed minimal coronary disease and stress testing done on 11/2022 with no evidence of ischemic changes 7. Recent right hip fracture secondary to mechanical fall -Hemiarthroplasty performed on 02/25/2024 -PT/OT consultation -On apixaban for DVT prophylaxis. Muscle relaxant ordered. Low-dose pain oxycodone 2.5 to 5 mg. 8. BPH with obstruction and history of prostate cancer in remission -Continue with Flomax/finasteride 9. Other multiple comorbidities including GERD, PMR; completed steroid taper, anxiety and depression 10. DVT prophylaxis -Continue apixaban 2.5 mg p.o. twice daily CODE STATUS -Full code as verified with at the time of admission as patient was not alert and oriented x 3 at that time Laboratory Results 03/01/24 16:33: POC Glucose 294 H 03/01/24 21:29: POC Glucose 224 H 03/02/24 07:29: POC Glucose 109 H 03/02/24 11:27: POC Glucose 269 H Clinical Impression(s) from Imaging Studies Chest X-Ray 02/29/24 10:50 IMPRESSION: Chronic interstitial changes and stable blunting of the left costophrenic angle, no interval change Electronically Signed: Thomas Queen MD at 11:04 EST , Brain CT 02/29/24 12:30 IMPRESSION: Chronic involutional changes of the brain. Stable opacification of the left maxillary sinus. Brain MRI 03/01/24 11:53 IMPRESSION: No acute intracranial abnormality. Chronic microvascular changes. Electronically Signed: Clyde Arevalo MD at 15:52 EST , Medications at Discharge Home Medications aspirin 81 mg tablet,delayed release (Adult Low Dose Aspirin) 81 mg PO QDAY 06/15/17 finasteride 5 mg tablet (Proscar) 5 mg PO DAILY 06/16/17 flash glucose scanning reader (FreeStyle Tani 2 [place]) #2 ea 03/28/22 flash glucose sensor (FreeStyle Tani 2 Sensor kit) #2 ea 03/28/22 cholecalciferol (vitamin D3) 125 mcg (5,000 unit) capsule 125 mcg PO DAILY 05/05/22 PureFlow B 2K Dialysis Soln 6 bag perfusion UD ##0 12/12/22 acetaminophen 325 mg tablet 650 mg (2 x 325 mg) PO Q4H PRN PRN Fever, pain 1-01/20 #0 tabs 12/12/22 insulin lispro 100 unit/mL subcutaneous pen (Humalog KwikPen (U-100) Insulin) See Protocol subcut ACHS 01/14/23 calcium 600 mg (as carbonate)-vitamin D3 10 mcg (400 unit) capsule 1 cap PO DAILY 01/23/23 amlodipine 5 mg tablet 5 mg PO DAILY 01/26/23 insulin glargine 100 unit/mL (3 mL) subcutaneous pen (Lantus Solostar U-100 Insulin) 8 unit subcut QPM DM 01/28/23 insulin lispro 100 unit/mL subcutaneous pen (Humalog KwikPen (U-100) Insulin) 6 unit subcut TIDAC 01/28/23 foam bandage 4 X 4 (Mepilex) #5 ea 01/29/23 vitamins A,C,H-mmbo-bxfbhc 4,296 mcg-226 mg-90 mg capsule (ICaps AREDS) 1 cap PO DAILY #90 caps 02/27/23 clonidine HCl 0.1 mg tablet 0.1 mg PO BID 01/29/24 folic acid 400 mcg tablet 400 mcg PO DAILY 01/29/24 furosemide 40 mg tablet 40 mg PO DAILY weight gain 01/29/24 gabapentin 300 mg capsule 300 mg PO TID 01/29/24 magnesium 250 mg tablet 250 mg PO QDAY 01/29/24 pantoprazole 40 mg tablet,delayed release 40 mg PO BID 01/29/24 renal multivitamin 1 tab PO DAILY 01/29/24 tamsulosin 0.4 mg capsule 0.4 mg PO QDAY 01/29/24 atorvastatin 40 mg tablet 40 mg PO QHS 02/24/24 metoprolol tartrate 25 mg tablet 25 mg PO DAILY 02/24/24 aluminum-mag hydroxide-simethicone 400 mg-400 mg-40 mg/5 mL oral susp (Mag-Al Plus Extra Strength) 30 ml PO Q6H PRN PRN Gastric Burning #0 mL 02/28/24 apixaban 5 mg tablet (Eliquis) 2.5 mg (1/2 x 5 mg) PO BID 30 days #30 tabs 02/28/24 ferrous sulfate 325 mg (65 mg iron) tablet (Iron (ferrous sulfate)) 325 mg PO DAILY #30 tabs 02/28/24 melatonin 3 mg tablet 3 mg PO QHS PRN PRN Insomnia #0 tabs 02/28/24 sertraline 50 mg tablet 50 mg PO DAILY mood 02/29/24 bisacodyl 5 mg tablet,delayed release 10 mg (2 x 5 mg) PO DAILY #0 tabs 03/02/24 oxycodone 5 mg tablet 2.5 - 5 mg (0.5 - 1 x 5 mg) PO Q4H PRN PRN Pain Score 4-10 3 days #10 tabs 03/02/24 sennosides 8.6 mg-docusate sodium 50 mg tablet (Stimulant Laxative Plus) 2 tab PO BID #0 tabs 03/02/24 tizanidine 2 mg tablet 4 mg (2 x 2 mg) PO Q8H PRN PRN Muscle Spasm 30 days #0 tabs 03/02/24 Physical Exam Narrative Confusion disorientation and incoherent his speech is resolved. Patient also stated he does not have muscle spasm anymore and myoclonus is also gone/resolved. On Zanaflex. No fever. Discussed with the patient's son and his friend in the room. Physical exam General: Alert, Oriented x3, Cooperative HEENT: Atraumatic, PERRLA, EOMI, Normocephalic Oral: Oral mucosa moist. No Gingival or Mucosal Lesions/ Ulcerations Neck: Supple, No JVD, Negative Carotid Bruits Chest wall/Lungs: Air entry diminished in bilateral lung bases. No crepitation/rhonchi Cardiovascular: Regular rate, Regular Rhythm, Normal S1, Normal S2, No M/G/R Abdomen: Bowel Sounds Present, Soft, Non Tender, Non-Distended : No dysuria. No renal angle tenderness. No suprapubic tenderness. Extremities: No edema, Capillary Refill Less than 3 Seconds Skin: Right hip surgical dressing dry. Musculoskeletal: Tenderness present over right thigh and calf muscle. No Tenderness to Palpation of Joints or Extremities Neurological: Cranial nerves II-XII grossly intact, DTR 2+/4. No acute focal neurological deficit. Psych/Mental Status: Flat affect Weight / BMI Weight Weight: 133 lb 13.129 oz Body Mass Index (BMI) 20.9 ABG / Lab / Microbiology Data 03/01/24 05:36 03/01/24 11:45 Laboratory: Laboratory Results - last 24 hr 03/01/24 11:45: BUN 33 H, Creatinine 1.96 H, Estim Creat Clear Calc 25.81, Est GFR (MDRD) Af Amer 43 L, Est GFR (MDRD) Non-Af 35 L 03/01/24 16:33: POC Glucose 294 H 03/01/24 21:29: POC Glucose 224 H 03/02/24 07:29: POC Glucose 109 H 03/02/24 11:27: POC Glucose 269 H Radiography Diagnostic Testing: Radiology Impression Brain MRI 03/01/24 11:53 IMPRESSION: No acute intracranial abnormality. Chronic microvascular changes. Electronically Signed: Clyde Arevalo MD at 15:52 EST , D/C Instructions DC O2, CPAP, BIPAP Needs Additional Home O2 Discharge instructions: No DC home with Oxygen: No Meaningful Use Info Meaningful Use Meaningful Use Diagnoses (Choose all that apply): None applicable Ischemic Stroke Statin Dosing Therapy Reference: STATIN DOSE THERAPY REFERENCE: * Patients > 75 years receive moderate or high dose statin therapy. * Patients 75 years or YOUNGER should receive HIGH intensity statin dose unless contraindicated. You will be required to document reason for non-treatment if statin daily dose does not meet guidelines. HIGH DOSE STATIN THERAPY DAILY Atorvastatin > than or = to 40 mg Rosuvastatin > than or = to 20 mg Amlodipine + Atorvastatin > than or = to 2.5/40 mg Ezetimibe + Simvastatin 10/80 mg Simvastatin 80mg Discharge Plan Admission Admit Date/Time: 02/29/24 14:51 Primary Reason for Your Visit: Altered mental status resolved. Attending Provider: Stanley Kelly Primary Care Provider: Cesar Keenan Consulting Providers: Ken Echevarria; Rhonda Estevez; Negar Snell; Wilbert Montoya; Ramon Shepard; Nelly Garcia; KHARI LAGUNA; Antonette Gonzalez; Yvonne Sims; Immanuel Mckeon; Yuly Monroy; Maria Guadalupe Townsend; Cyndee Teran; Kilo Payne; Dionne Velasquez; Nohemi Caceres; Xavi Rivers; Kaci Escobar; Cristian Ordonez; Karri Nieves; Sampson Zhou; Ariel Granados; Aniket Teague; Kj Landa; Stewart Elder; Cordell Echavarria; Priti Teran; Gabi Larkin Discharge Orders/Prescriptions Prescriptions: New bisacodyl 5 mg Tablet,Delayed Release (Dr/Ec) 10 mg PO DAILY Qty: 0 0RF Rx Instructions: Daily for 3 more days and then as needed tizanidine 2 mg Tablet 4 mg PO Q8H PRN PRN (Reason: Muscle Spasm) 30 Days Qty: 0 0RF sennosides-docusate sodium [Stimulant Laxative Plus] 8.6-50 mg Tablet 2 tab PO BID Qty: 0 0RF Continued finasteride [Proscar] 5 mg tablet 5 mg PO DAILY folic acid 400 mcg tablet 400 mcg PO DAILY (DME) FreeStyle Tani 2 Sensor Kit See Rx Instructions .Route Qty: 2 3RF Rx Instructions: As directed (DME) FreeStyle Tani 2 Boncarbo Misc See Rx Instructions .Route Qty: 2 3RF Rx Instructions: As directed cholecalciferol (vitamin D3) 125 mcg (5,000 unit) capsule 125 mcg PO DAILY ICaps AREDS 4,296 mcg-226 mg-90 mg capsule 1 cap PO DAILY Qty: 90 2RF insulin lispro [Humalog KwikPen Insulin] 100 unit/mL insulin pen See Protocol subcut ACHS Protocol: 4. Sliding Scale Insulin High-Med Dosing Condition: 150-199 mg/dl = 2 units Condition: 200-259 mg/dl = 4 units Condition: 260-324 mg/dl = 6 units Condition: 325-374 mg/dl = 8 units Condition: 375-409 mg/dl = 10 units Condition: 410-449 mg/dl = 11 units Condition: Greater than 449 call physician Protocol Text: - Use for Total Daily Dose of Insulin 56-80 units - Patient who are insulin resistant or septic HIGH MEDIUM DOSING ALGORITHM calcium carbonate-vitamin D3 600 mg-10 mcg (400 unit) capsule 1 cap PO DAILY furosemide 40 mg tablet 40 mg PO DAILY insulin glargine [Lantus Solostar U-100 Insulin] 100 unit/mL (3 mL) insulin pen 8 unit SC QPM insulin lispro [Humalog KwikPen Insulin] 100 unit/mL insulin pen 6 unit subcut TIDAC amlodipine 5 mg tablet 5 mg PO DAILY tamsulosin 0.4 mg capsule 0.4 mg PO QDAY pantoprazole 40 mg tablet,delayed release (DR/EC) 40 mg PO BID renal multivitamin 1 tab PO DAILY clonidine HCl 0.1 mg tablet 0.1 mg PO BID magnesium 250 mg tablet 250 mg PO QDAY acetaminophen 325 mg Tablet 650 mg PO Q4H PRN PRN (Reason: Fever, pain 1-01/20) Qty: 0 0RF Pureflow B 2k Dialysis Soln 6 bag perfusion UD Qty: 0 0RF sertraline 50 mg tablet 50 mg PO DAILY atorvastatin 40 mg tablet 40 mg PO QHS metoprolol tartrate 25 mg tablet 25 mg PO DAILY Rx Instructions: Hold for SBP less than 130 Eliquis 5 mg Tablet 2.5 mg PO BID 30 Days Qty: 30 0RF melatonin 3 mg Tablet 3 mg PO QHS PRN PRN (Reason: Insomnia) Qty: 0 0RF alum-mag hydroxide-simeth [Mag-Al Plus Extra Strength] 400-400-40 mg/5 mL Suspension 30 ml PO Q6H PRN PRN (Reason: Gastric Burning) Qty: 0 0RF ferrous sulfate [Iron (ferrous sulfate)] 325 mg (65 mg iron) tablet 325 mg PO DAILY Qty: 30 0RF (DME) Mepilex 4 X 4 bandage See Rx Instructions .Route Qty: 5 2RF Rx Instructions: As directed Changed oxycodone 5 mg Tablet 2.5 - 5 mg PO Q4H PRN PRN (Reason: Pain Score 4-10) 3 Days Qty: 10 0RF Held aspirin [Adult Low Dose Aspirin] 81 mg tablet,delayed release (DR/EC) 81 mg PO QDAY Hold Instructions: Hold baby aspirin for 1 week until hemoglobin is above 8 g gabapentin 300 mg capsule 300 mg PO TID Hold Instructions: Hold for 3 days then resume 100 mg 3 times daily. Hold it if patient gets lethargy or sleepy. Rx Instructions: Give after Dialysis Discontinued docusate sodium 100 mg capsule 200 mg PO QDAY Referrals / Follow Up: Rolando Castro MD [Med Staff - Active Staff] - Within 1 Week (Follow-up after right hemiarthroplasty) Cesar Keenan MD [Primary Care Provider] - Maria Guadalupe Townsend MD [Med Staff - Consulting] - Within 1 Month Disposition Disposition (needs filled in before D/C Order can be placed): Detention Facility Charges/Coding Visit Charges Inpatient E&M: 94918 Disch Hosp >30min
[2024-03-02 14:15] VITALS: BP 141/58; PULSE 65; RESP 14; TEMP 36.8; O2SAT 99
--- NOTE | 2024-03-02 14:22 | PHA.DC.MR.R ---
Pharmacy [place] Med Reconciliation Pharmacy Service has performed discharge medication reconciliation for this patient. The patient's discharge medication list was reviewed for discrepancies and discrepancies were resolved. Medications at Discharge Home Medications aspirin 81 mg tablet,delayed release (Adult Low Dose Aspirin) 81 mg PO QDAY 06/15/17 finasteride 5 mg tablet (Proscar) 5 mg PO DAILY 06/16/17 flash glucose scanning reader (FreeStyle Tnai 2 [place]) #2 ea 03/28/22 flash glucose sensor (FreeStyle Tani 2 Sensor kit) #2 ea 03/28/22 cholecalciferol (vitamin D3) 125 mcg (5,000 unit) capsule 125 mcg PO DAILY 05/05/22 PureFlow B 2K Dialysis Soln 6 bag perfusion UD ##0 12/12/22 acetaminophen 325 mg tablet 650 mg (2 x 325 mg) PO Q4H PRN PRN Fever, pain -01/20 #0 tabs 12/12/22 insulin lispro 100 unit/mL subcutaneous pen (Humalog KwikPen (U-100) Insulin) See Protocol subcut ACHS 01/14/23 calcium 600 mg (as carbonate)-vitamin D3 10 mcg (400 unit) capsule 1 cap PO DAILY 01/23/23 amlodipine 5 mg tablet 5 mg PO DAILY 01/26/23 insulin glargine 100 unit/mL (3 mL) subcutaneous pen (Lantus Solostar U-100 Insulin) 8 unit subcut QPM DM 01/28/23 insulin lispro 100 unit/mL subcutaneous pen (Humalog KwikPen (U-100) Insulin) 6 unit subcut TIDAC 01/28/23 foam bandage 4 X 4 (Mepilex) #5 ea 01/29/23 vitamins A,C,E-fyzv-tpkvin 4,296 mcg-226 mg-90 mg capsule (ICaps AREDS) 1 cap PO DAILY #90 caps 02/27/23 clonidine HCl 0.1 mg tablet 0.1 mg PO BID 01/29/24 folic acid 400 mcg tablet 400 mcg PO DAILY 01/29/24 furosemide 40 mg tablet 40 mg PO DAILY weight gain 01/29/24 gabapentin 300 mg capsule 300 mg PO TID 01/29/24 magnesium 250 mg tablet 250 mg PO QDAY 01/29/24 pantoprazole 40 mg tablet,delayed release 40 mg PO BID 01/29/24 renal multivitamin 1 tab PO DAILY 01/29/24 tamsulosin 0.4 mg capsule 0.4 mg PO QDAY 01/29/24 atorvastatin 40 mg tablet 40 mg PO QHS 02/24/24 metoprolol tartrate 25 mg tablet 25 mg PO DAILY 02/24/24 aluminum-mag hydroxide-simethicone 400 mg-400 mg-40 mg/5 mL oral susp (Mag-Al Plus Extra Strength) 30 ml PO Q6H PRN PRN Gastric Burning #0 mL 02/28/24 apixaban 5 mg tablet (Eliquis) 2.5 mg (1/2 x 5 mg) PO BID 30 days #30 tabs 02/28/24 ferrous sulfate 325 mg (65 mg iron) tablet (Iron (ferrous sulfate)) 325 mg PO DAILY #30 tabs 02/28/24 melatonin 3 mg tablet 3 mg PO QHS PRN PRN Insomnia #0 tabs 02/28/24 sertraline 50 mg tablet 50 mg PO DAILY mood 02/29/24 bisacodyl 5 mg tablet,delayed release 10 mg (2 x 5 mg) PO DAILY #0 tabs 03/02/24 oxycodone 5 mg tablet 2.5 - 5 mg (0.5 - 1 x 5 mg) PO Q4H PRN PRN Pain Score 4-10 3 days #10 tabs 03/02/24 sennosides 8.6 mg-docusate sodium 50 mg tablet (Stimulant Laxative Plus) 2 tab PO BID #0 tabs 03/02/24 tizanidine 2 mg tablet 4 mg (2 x 2 mg) PO Q8H PRN PRN Muscle Spasm 30 days #0 tabs 03/02/24
--- NOTE | 2024-03-02 14:30 | CASEMGMT ---
Discharge Planning Discharge orders, signed med list, and transport time sent to [facility] via [facility]. Physicians will transport patient by wheelchair at 4p. Nursing, SW, patient, and his updated. Melyssa Michaud DC Planning Asst.
--- NOTE | 2024-03-02 15:14 | PCM.PN.REN ---
Subjective Subjective Sitting up in bed. No complaints. Overall clinically looking better today. at bedside. Discharge back to ECF today. Objective Data Objective Data Vital Signs: Vital Signs Temp Pulse Resp BP Pulse Ox O2 Del Method 98.3 F 65 14 141/58 H 99 Room Air 03/02/24 14:15 03/02/24 14:15 03/02/24 14:15 03/02/24 14:15 03/02/24 14:15 03/02/24 14:15 Oxygen Delivery Method Room Air Weight: 60.7 kg Body Mass Index (BMI) 20.9 Intake & Output: Intake and Output for Last 24 Hours 02/29/24 03/01/24 03/02/24 23:59 23:59 23:59 Intake Total 120 / 120 490 / 490 140 / 140 Output Total 125 / 225 2450 / 2550 100 / 100 Balance -5 / -105 -1960 / -2059 40 / 40 Lab / Micro Data 03/01/24 05:36 03/01/24 11:45 Labs: Laboratory Results - last 24 hr 03/01/24 16:33: POC Glucose 294 H 03/01/24 21:29: POC Glucose 224 H 03/02/24 07:29: POC Glucose 109 H 03/02/24 11:27: POC Glucose 269 H Radiography Diagnostic Testing: Radiology Impression Brain MRI 03/01/24 11:53 IMPRESSION: No acute intracranial abnormality. Chronic microvascular changes. Electronically Signed: Clyde Arevalo MD at 15:52 EST , Physical Exam Narrative Alert and orient x 3, no apparent distress S1, S2, RRR Lung sounds clear Abdomen soft No edema AV fistula left arm Assessment & Plan Assessment/Plan (1) End stage renal disease: (2) Acute alteration in mental status: (3) Anemia: PLAN: Plan - ESRD on hemodialysis TTS; patient dialyzed yesterday and tolerated treatment well. No acute indication for [employer] POOL today. Next dialysis will be tomorrow. -AMS; mentation back to baseline. Oxycodone dose decreased and gabapentin dose decreased. -Anemia of chronic disease; patient will receive NIKUNJ and iron at kidney center. Monitor hemoglobin trends. -Disposition; planning for discharge back to ECF today.
== END 2024-03-02 17:06 | disposition skilled nursing facility (03) | DRG 91 ==
LOC: ED 12:13 → PCU 15:00
PROVIDERS: Nurse Practitioner Adult Health; Admitting Provider Internal Medicine; Emergency Provider Emergency Medicine; PCP Internal Medicine; Visit Provider Internal Medicine
DX: G92.8 Other toxic encephalopathy (principal); N18.6 End stage renal disease; I13.2 Hypertensive heart and chronic kidney disease with heart failure and with stage 5 chronic kidney disease, or end stage renal disease; N13.8 Other obstructive and reflux uropathy; R06.3 Periodic breathing; I50.22 Chronic systolic (congestive) heart failure; D63.1 Anemia in chronic kidney disease; G25.3 Myoclonus; I48.0 Paroxysmal atrial fibrillation; E10.42 Type 1 diabetes mellitus with diabetic polyneuropathy; J44.9 Chronic obstructive pulmonary disease, unspecified; I35.2 Nonrheumatic aortic (valve) stenosis with insufficiency; F32.A Depression, unspecified; M35.3 Polymyalgia rheumatica; E10.22 Type 1 diabetes mellitus with diabetic chronic kidney disease; Z99.2 Dependence on renal dialysis; E10.65 Type 1 diabetes mellitus with hyperglycemia; Z79.4 Long term (current) use of insulin; E78.2 Mixed hyperlipidemia; I25.10 Atherosclerotic heart disease of native coronary artery without angina pectoris; K21.9 Gastro-esophageal reflux disease without esophagitis; F41.9 Anxiety disorder, unspecified; F17.210 Nicotine dependence, cigarettes, uncomplicated; W18.30XD Fall on same level, unspecified, subsequent encounter; K59.03 Drug induced constipation; T40.2X5A Adverse effect of other opioids, initial encounter; S72.001D Fracture of unspecified part of neck of right femur, subsequent encounter for closed fracture with routine healing; R31.21 Asymptomatic microscopic hematuria; N40.1 Benign prostatic hyperplasia with lower urinary tract symptoms; Z79.891 Long term (current) use of opiate analgesic; Z79.01 Long term (current) use of anticoagulants; Z79.82 Long term (current) use of aspirin; Z79.899 Other long term (current) drug therapy; Z85.46 Personal history of malignant neoplasm of prostate; T42.6X5A Adverse effect of other antiepileptic and sedative-hypnotic drugs, initial encounter
CPT/HCPCS: 36415; 36600; 70450; 70551; 71045; 80048; 81001; 82140; 82565; 82803; 82962; 83735; 84100; 84443; 84520; 85025; 90937; 94668; 95819; 97162; 97166; 97802; 99285; J7030; P9612; A4216; G0257; Q5106

== ENCOUNTER → 2024-04-22 | Outpatient (CLI) | payer MEDICARE, OTHER, SELFPAY ==
--- NOTE | 2024-04-22 12:59 | CDU_ITS ---
Reason For Study: Carotid Stenosis Rt. Velocities/BP Lt. Velocities/BP Prox CCA 62.6/1.2 cm/sec. Prox CCA 57.6/0.0 cm/sec. Mid CCA 48.6/0.0 cm/sec. Mid CCA 61.3/6.0 cm/sec. Dist CCA 45.3/2.6 cm/sec. Dist CCA 55.1/0.0 cm/sec. Prox ICA 54.6/7.1 cm/sec. Prox ICA 72.9/7.1 cm/sec. Mid ICA 42.3/4.9 cm/sec. Mid ICA 133.7/15.1 cm/sec. Dist ICA 80.2/10.8 cm/sec. Dist ICA 47.8/5.6 cm/sec. Rt. ICA/CCA = 1.7. Lt. ICA/CCA = 2.2. Prox ECA 78.5/0.0 cm/sec. Prox ECA 62.5/0.0 cm/sec. Rt. Vert. 42.8/3.2 cm/sec. Lt. Vert. 54.8/2.1 cm/sec. Right Extracranial There is heterogeneous, irregular atherosclerotic plaque noted in the right common carotid artery. There is heterogeneous, irregular atherosclerotic plaque noted in the right internal carotid artery. The atherosclerotic plaque causes acoustic shadowing. There is heterogeneous, irregular atherosclerotic plaque noted in the right external carotid artery. Antegrade flow is noted in the right vertebral artery. Left Extracranial There is heterogeneous, irregular atherosclerotic plaque noted in the left common carotid artery. There is heterogeneous, irregular atherosclerotic plaque noted in the left internal carotid artery. The atherosclerotic plaque causes acoustic shadowing. There is heterogeneous, irregular atherosclerotic plaque noted in the left external carotid artery. Antegrade flow is noted in the left vertebral artery. Procedure Carotid Duplex [id number]. This is a Carotid Duplex examination using B-mode, color flow and specral Doppler. Exam was of fair techincal quality due to acoustic shaddowing. Exam performed in department. VL/Carotid Duplex Ultrasound Interpretation Summary Mild (<50%) stenosis right extracranial internal carotid. Moderate (50-69%) stenosis left extracranial internal carotid. Patent and antegrade vertebrals bilaterally. Limited due to calcific shadowing. Ordering Physician: Channing Marshall Referring Physician: Cesar Keenan Performed By: Perfecto Wayne RVT and Student
== END | disposition home or self-care (01) ==
PROVIDERS: PCP Internal Medicine; Referring Provider Surgery Trauma Surgery; Visit Provider Surgery Trauma Surgery
DX: I65.21 Occlusion and stenosis of right carotid artery (principal)
CPT/HCPCS: 93880

== ENCOUNTER 2024-05-09 11:03 | Emergency (ER) | payer MEDICARE, OTHER, SELFPAY ==
[2024-05-09 11:05] VITALS: BP 166/57; PULSE 63; RESP 18; TEMP 36.3; O2SAT 97; BMI 17.9
--- NOTE | 2024-05-09 11:34 | EX.ED.DYSGE1 ---
HPI History of Present Illness Chief Complaint: Hyperglycemia Informant: patient and EMS Narrative Narrative: 78-year-old male at [facility] was apparently altered in someway this morning and his blood sugar was elevated 560. Family later arrived and states that this morning when his blood sugar was high he was cussing and taking his clothes off in an inappropriate setting, which is unusual for him even when his blood sugar has been up in the past. [facility] Medical History (Updated 05/09/24 @ 15:[address] Lalo Perales MD) Insomnia Anorexia Fracture of femoral neck, right, open Carotid stenosis Anxiety and depression Carotid artery disease Lipohypertrophy due to insulin injection Dyslipidemia Carotid bruit Coronary artery disease Chronic neck pain Debility Cancer Open wound Polymyalgia arteritica Low iron Leg cramps History of edema Cardiology follow-up encounter Prostate cancer Dependent on hemodialysis NPDR (nonproliferative diabetic retinopathy) Nonrheumatic aortic (valve) stenosis History of non-ST elevation myocardial infarction (NSTEMI) End stage renal disease Leukocytosis Edema of left upper arm HFrEF (heart failure with reduced ejection fraction) Acquired neutrophilia Aortic valve stenosis 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 1 diabetes mellitus Chronic neck and back pain Skin mole Fatigue Watery eyes CKD (chronic kidney disease) stage 4, GFR 15-29 ml/min Aortic root dilatation Olecranon bursitis, left elbow Mediastinal mass Type 1 diabetes mellitus with hyperglycemia Olecranon bursitis, right elbow Unintentional weight loss of more than 10 pounds Swelling of right elbow Heart murmur Contact with or suspected exposure to other viral communicable disease Acute bronchitis Insulin dependent diabetes mellitus CKD (chronic kidney disease), stage IV Osteopenia Wears hearing aid Wears glasses Wears dentures Alcohol use Insulin dependent diabetes mellitus Arthritis High cholesterol Back pain Dietary restriction Former smoker Shortness of breath on exertion History of pain when walking History of stress test History of echocardiogram Nicotine dependence, cigarettes, uncomplicated COPD (chronic obstructive pulmonary disease) Episode of syncope Mass of lung REYES (dyspnea on exertion) Wears hearing aid in both ears Hearing loss, left Hearing loss, right Kidney stones Smoker Hypertension Chronic kidney insufficiency Diabetic retinopathy associated with type 1 diabetes mellitus Benign essential hypertension Stage 3 chronic kidney disease due to type 1 diabetes mellitus Diabetic polyneuropathy associated with type 1 diabetes mellitus Essential hypertension Mixed hyperlipidemia Vision problem Prostate disease Osteoarthritis Hearing problem COPD (chronic obstructive pulmonary disease) Cataracts, bilateral Bone fracture Back problem Anemia Bronchitis Family history of hyperlipidemia Family history of hypertension Headache Dyspnea on exertion Hyperlipidemia Nicotine abuse Atherosclerotic heart disease of [place] coronary artery without angina pectoris 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 use of drug Sleep apnea Hypertension Home Medications ?Medication ?Instructions ?Recorded ?Last Taken ?Type aspirin 81 mg tablet,delayed 81 mg PO QDAY 06/15/17 03/01/23 History release (Adult Low Dose Aspirin) finasteride 5 mg tablet (Proscar) 5 mg PO DAILY 06/16/17 Unknown History flash glucose scanning reader #2 ea 03/28/22 Unknown Rx (FreeStyle Tani 2 [place]) flash glucose sensor (FreeStyle #2 ea 03/28/22 Unknown Rx Tani 2 Sensor kit) cholecalciferol (vitamin D3) 125 125 mcg PO DAILY 05/05/22 Unknown History mcg (5,000 unit) capsule PureFlow B 2K Dialysis Soln 6 bag perfusion UD ##0 12/12/22 Unknown Rx acetaminophen 325 mg tablet 650 mg (2 x 325 mg) PO Q4H PRN PRN 12/12/22 Unknown Rx Fever, pain -01/20 #0 tabs insulin lispro 100 unit/mL See Protocol subcut ACHS 01/14/23 Unknown History subcutaneous pen (Humalog KwikPen (U-100) Insulin) calcium 600 mg (as 1 cap PO DAILY 01/23/23 Unknown History carbonate)-vitamin D3 10 mcg (400 unit) capsule amlodipine 5 mg tablet 5 mg PO DAILY 01/26/23 03/02/23 History insulin glargine 100 unit/mL (3 8 unit subcut QPM DM 01/28/23 Unknown History mL) subcutaneous pen (Lantus Solostar U-100 Insulin) foam bandage 4 X 4 (Mepilex) #5 ea 01/29/23 Unknown Rx vitamins A,C,T-dwtt-ralhcf 4,296 1 cap PO DAILY #90 caps 02/27/23 Unknown Rx mcg-226 mg-90 mg capsule (ICaps AREDS) clonidine HCl 0.1 mg tablet 0.1 mg PO BID 01/29/24 Unknown History folic acid 400 mcg tablet 400 mcg PO DAILY 01/29/24 Unknown History furosemide 40 mg tablet 40 mg PO DAILY weight gain 01/29/24 Unknown History gabapentin 300 mg capsule 300 mg PO TID 01/29/24 Unknown History magnesium 250 mg tablet 250 mg PO QDAY 01/29/24 Unknown History pantoprazole 40 mg tablet,delayed 40 mg PO BID 01/29/24 Unknown History release renal multivitamin 1 tab PO DAILY 01/29/24 Unknown History tamsulosin 0.4 mg capsule 0.4 mg PO QDAY 01/29/24 Unknown History atorvastatin 40 mg tablet 40 mg PO QHS 02/24/24 Unknown History metoprolol tartrate 25 mg tablet 25 mg PO DAILY 02/24/24 Unknown History aluminum-mag hydroxide-simethicone 30 ml PO Q6H PRN PRN Gastric 02/28/24 Unknown Rx 400 mg-400 mg-40 mg/5 mL oral susp Burning #0 mL (Mag-Al Plus Extra Strength) apixaban 5 mg tablet (Eliquis) 2.5 mg (1/2 x 5 mg) PO BID 30 days 02/28/24 Unknown Rx #30 tabs ferrous sulfate 325 mg (65 mg 325 mg PO DAILY #30 tabs 02/28/24 Unknown Rx iron) tablet (Iron (ferrous sulfate)) melatonin 3 mg tablet 3 mg PO QHS PRN PRN Insomnia #0 02/28/24 Unknown Rx tabs sertraline 50 mg tablet 50 mg PO DAILY mood 02/29/24 Unknown History bisacodyl 5 mg tablet,delayed 10 mg (2 x 5 mg) PO DAILY #0 tabs 03/02/24 Unknown Rx release sennosides 8.6 mg-docusate sodium 2 tab PO BID #0 tabs 03/02/24 Unknown Rx 50 mg tablet (Stimulant Laxative Plus) mirtazapine 15 mg tablet (Remeron) 3.75 mg (1/4 x 15 mg) PO QHS #30 04/29/24 Unknown Rx tabs Allergy/AdvReac Type Severity Reaction Status Date / Time levofloxacin (From [employer] App) Allergy Hives Verified 04/29/24 10:53 vancomycin AdvReac Severe Rash Verified 04/29/24 10:53 Family History Father Diabetes Hypertension Family history of hyperlipidemia Asthma Kidney disease Mother Diabetes Brother Cancer Throat cancer Brother CAD (coronary artery disease) Myocardial infarction, Onset Age: 52 Sister Family history of hyperlipidemia Hypertension Diabetes Unknown Alcoholism Arthritis Depression Diabetes Hypertension Hyperlipidemia Osteoporosis Respiratory disease Pancreatic cancer Other Family history of hypertension Surgical History History of hip surgery S/P arteriovenous (AV) fistula creation Fracture of left patella Wrist fracture, bilateral Fracture of left upper extremity History of colonoscopy (~2013) History of bilateral inguinal hernia repair (~2007) History of hernia repair (~1991) History of hemorrhoidectomy (~2000) stent replacement for right sided kidney stome Social History household members: spouse Smoking Status: Current every day smoker tobacco type: cigarettes Tobacco: How many years used: 50 alcohol intake: never substance use type: does not use caffeine: Yes Type: coffee Number of servings: 2 what type of physical activity do you participate in: none seatbelt use: sometimes do you feel safe at home: Yes EXAM Physical Exam Const Vital Signs: 05/09/24 11:05 05/09/24 13:04 05/09/24 15:00 Temperature 97.4 F L Temperature Source Temporal Pulse Rate 63 64 Respiratory Rate 18 18 Blood Pressure 166/57 H 177/57 H 157/59 H Blood Pressure Mean 93 97 91 Pulse Ox 97 96 99 Oxygen Delivery Method Room Air MDM MDM MDM Narrative Medical decision making narrative: Patient is following commands and answering questions appropriately right now, acting back to normal according to family as well. Given this new knowledge which occurred after initially ordering workup, ordering a CT of the head as well as a chest x-ray to rule out pneumonia, urine to rule out UTI, his kidney function is abnormal but he is a dialysis patient, he is due for dialysis tomorrow. Following with Dr. Branham. Since he states he received insulin this morning, I trended his blood sugar initially in order to determine what treatment he needed, while he was getting IV fluids. It seems that his blood sugar is now 618, trending up so I am now ordering insulin 20 units lispro subcutaneous in addition to the liter of fluid he is receiving. He was monitored for couple hours. His blood sugar trended down and several hours later, after being in the mid 300s it is now 198 and the patient has been doing well. He is asymptomatic, family agrees he is at baseline. When I obtained a head CT, on my interpretation it is negative for any acute, radiology was in agreement. Two-view chest x-ray shows a left pleural effusion this is stable compared with his old, nothing different or acute. Given this uncomfortable with him being discharged home. Discussed with family and the patient as well. This could have been diet related hyperglycemia in context of being a diabetic. His anion gap is technically slightly elevated but his bicarb is normal and I do not think he is in DKA or needs further treatment for that right now. Lab Data Attestation: I reviewed the patient's lab results. Labs: Laboratory Results - last 24 hr 05/09/24 05/09/24 05/09/24 11:00 11:21 13:15 WBC 6.6 RBC 3.42 L Hgb 10.2 L Hct 31.7 L MCV 92.7 MCH 29.8 MCHC 32.2 RDW Std Deviation 52.5 H RDW Coeff of Russell 15.8 H Plt Count 359 MPV 10.0 Immature Gran % (Auto) 0.300 Neut % (Auto) 81.4 H Lymph % (Auto) 8.8 L Knox % (Auto) 7.3 Eos % (Auto) 1.7 Baso % (Auto) 0.5 Absolute Neuts (auto) 5.4 Absolute Lymphs (auto) 0.58 L Nucleated RBC % 0 Sodium 129 L Potassium 3.9 Chloride 90 L Carbon Dioxide 24.0 Anion Gap 16 H BUN 45 H Creatinine 3.46 H Estim Creat Clear Calc 12.50 Est GFR (MDRD) Af Amer 22 L Est GFR (MDRD) Non-Af 18 L BUN/Creatinine Ratio 13.0 Glucose 618 H* Calcium 8.9 Urine Color Yellow Urine Clarity Clear Urine pH 6.0 Ur Specific Randall 1.010 Urine Protein 100 H Urine Glucose (UA) 1000 H Urine Ketones 5 H Urine Occult Blood 25 H Urine Nitrite Negative Urine Bilirubin Negative Urine Urobilinogen Normal Ur Leukocyte Esterase Negative Urine RBC 0-5 SEEN Urine WBC 0 SEEN Ur Squamous Epith Cells 0 SEEN Urine Bacteria RARE Fine Granular Casts 0-5 SEEN Urine Mucus 0 SEEN POC Glucose 496 H* 05/09/24 05/09/24 13:31 15:24 WBC RBC Hgb Hct MCV MCH MCHC RDW Std Deviation RDW Coeff of Russell Plt Count MPV Immature Gran % (Auto) Neut % (Auto) Lymph % (Auto) Knox % (Auto) Eos % (Auto) Baso % (Auto) Absolute Neuts (auto) Absolute Lymphs (auto) Nucleated RBC % Sodium Potassium Chloride Carbon Dioxide Anion Gap BUN Creatinine Estim Creat Clear Calc Est GFR (MDRD) Af Amer Est GFR (MDRD) Non-Af BUN/Creatinine Ratio Glucose Calcium Urine Color Urine Clarity Urine pH Ur Specific Randall Urine Protein Urine Glucose (UA) Urine Ketones Urine Occult Blood Urine Nitrite Urine Bilirubin Urine Urobilinogen Ur Leukocyte Esterase Urine RBC Urine WBC Ur Squamous Epith Cells Urine Bacteria Fine Granular Casts Urine Mucus POC Glucose 376 H 198 H Radiography Diagnostic Testing: Clinical Impression(s) from Imaging Studies Brain CT 05/09/24 12:27 IMPRESSION: No acute intracranial process. Small vessel ischemia. Electronically Signed: Abby Fleming MD at 13:29 EST , Chest X-Ray 05/09/24 13:04 IMPRESSION: Stable left pleural effusion, cannot exclude associated left basilar consolidation. Electronically Signed: Abby Fleming MD at 13:33 EST , Discharge Plan Triage Chief Complaint: Hyperglycemia ED Provider: Lalo Perales Dx/Rx/DC Orders Clinical Impression: Hyperglycemia due to type 1 diabetes mellitus, Acute alteration in mental status Instructions: ED Diabetic Hyperglycemia Prescriptions: No Action aspirin [Adult Low Dose Aspirin] 81 mg tablet,delayed release (DR/EC) 81 mg PO QDAY finasteride [Proscar] 5 mg tablet 5 mg PO DAILY folic acid 400 mcg tablet 400 mcg PO DAILY (DME) FreeStyle Tani 2 Sensor Kit See Rx Instructions .Route Qty: 2 3RF Rx Instructions: As directed (DME) FreeStyle Tani 2 [place] Misc See Rx Instructions .Route Qty: 2 3RF Rx Instructions: As directed cholecalciferol (vitamin D3) 125 mcg (5,000 unit) capsule 125 mcg PO DAILY ICaps AREDS 4,296 mcg-226 mg-90 mg capsule 1 cap PO DAILY Qty: 90 2RF insulin lispro [Humalog KwikPen Insulin] 100 unit/mL insulin pen See Protocol subcut [facility] Protocol: 4. Sliding Scale Insulin High-Med Dosing Condition: 150-199 mg/dl = 2 units Condition: 200-259 mg/dl = 4 units Condition: 260-324 mg/dl = 6 units Condition: 325-374 mg/dl = 8 units Condition: 375-409 mg/dl = 10 units Condition: 410-449 mg/dl = 11 units Condition: Greater than 449 call physician Protocol Text: - Use for Total Daily Dose of Insulin 56-80 units - Patient who are insulin resistant or septic HIGH MEDIUM DOSING ALGORITHM calcium carbonate-vitamin D3 600 mg-10 mcg (400 unit) capsule 1 cap PO DAILY furosemide 40 mg tablet 40 mg PO DAILY insulin glargine [Lantus Solostar U-100 Insulin] 100 unit/mL (3 mL) insulin pen 8 unit SC QPM amlodipine 5 mg tablet 5 mg PO DAILY gabapentin 300 mg capsule 300 mg PO TID Rx Instructions: Give after Dialysis tamsulosin 0.4 mg capsule 0.4 mg PO QDAY pantoprazole 40 mg tablet,delayed release (DR/EC) 40 mg PO BID renal multivitamin 1 tab PO DAILY clonidine HCl 0.1 mg tablet 0.1 mg PO BID magnesium 250 mg tablet 250 mg PO QDAY mirtazapine [Remeron] 15 mg tablet 3.75 mg PO QHS Qty: 30 1RF acetaminophen 325 mg Tablet 650 mg PO Q4H PRN PRN (Reason: Fever, pain -01/20) Qty: 0 0RF Pureflow B 2k Dialysis Soln 6 bag perfusion UD Qty: 0 0RF sertraline 50 mg tablet 50 mg PO DAILY bisacodyl 5 mg Tablet,Delayed Release (Dr/Ec) 10 mg PO DAILY Qty: 0 0RF Rx Instructions: Daily for 3 more days and then as needed sennosides-docusate sodium [Stimulant Laxative Plus] 8.6-50 mg Tablet 2 tab PO BID Qty: 0 0RF atorvastatin 40 mg tablet 40 mg PO QHS metoprolol tartrate 25 mg tablet 25 mg PO DAILY Rx Instructions: Hold for SBP less than 130 Eliquis 5 mg Tablet 2.5 mg PO BID 30 Days Qty: 30 0RF melatonin 3 mg Tablet 3 mg PO QHS PRN PRN (Reason: Insomnia) Qty: 0 0RF alum-mag hydroxide-simeth [Mag-Al Plus Extra Strength] 400-400-40 mg/5 mL Suspension 30 ml PO Q6H PRN PRN (Reason: Gastric Burning) Qty: 0 0RF ferrous sulfate [Iron (ferrous sulfate)] 325 mg (65 mg iron) tablet 325 mg PO DAILY Qty: 30 0RF (DME) Mepilex 4 X 4 bandage See Rx Instructions .Route Qty: 5 2RF Rx Instructions: As directed Primary Care Provider: Cesar Keenan Referrals: Cesar Keenan MD [Primary Care Provider] - 1-2 Days if not improving Print Language: Croatian Disposition Disposition: Home, Self Care
[2024-05-09 11:39] LABS: Bedside Glucose 496 mg/dL (74-106)
[2024-05-09 12:00] LABS: Absolute Lymphocyte Count 0.58 X10^3/uL (0.83-4.51); Absolute Neutrophil Count 5.4 X10^3/uL (2.0-7.7); Basophil# 0.03 X10^3/uL; Basophil% 0.5 % (0-1); Eosinophil# 0.11 X10^3/uL; Eosinophils% 1.7 % (0-5); Hematocrit 31.7 % (40-54); Hemoglobin 10.2 g/dL (13.0-16.5); Lymphocyte # 0.58 X10^3/ul (0.83-4.51); Lymphocyte % 8.8 % (19-41); Mean Corp Hgb Conc 32.2 g/dL (32-36); Mean Corpuscular Hgb 29.8 pg (27.0-32.0); Mean Corpuscular Volume 92.7 fL (80-94); Monocyte# 0.48 X10^3/uL; Monocyte% 7.3 % (0-10); NRBC Flagged by Analyzer 0 % (0-5); Neutrophil # 5.39 X10^3/uL (2.7-7.7); Neutrophil % 81.4 % (47-70); POSITIVE DIFFERENTIAL YES; Platelet Count 359 K/mm3 (150-450); RBC Distribution Width CV 15.8 % (11.6-14.6); RBC Distribution Width SD 52.5 fl (35.1-43.9); Red Blood Count 3.42 M/mm3 (4.6-6.2); White Blood Count 6.6 K/mm3 (4.4-11.0)
[2024-05-09 12:17] LABS: Anion Gap 16 (5-15); BUN 45 mg/dL (7-18); Calcium,Total 8.9 mg/dL (8.5-10.1); Chloride 90 mmol/L (98-107); Creatinine, Serum 3.46 mg/dL (0.70-1.30); EST Glomerular Filtration Rate 18 mL/min (>60); Est Glom Filt Rate - Afr Amer 22 mL/min (>60); Glucose 618 mg/dL (74-106); Potassium 3.9 mmol/L (3.5-5.1); Sodium Level 129 mmol/L (136-145)
--- NOTE | 2024-05-09 12:27 | CT_ITS ---
INDICATION: altered mental status, DB, CKD STAGE 4, HTN EXAMINATION: CT BRAIN - CT Head or Brain W/O Contrast Injection TECHNIQUE: Multiple axial images were obtained of the head without intravenous contrast. The protocol utilizes one or more of the following dose reduction techniques: automated exposure control, adjustment of mA and/or kV according to patient size,and/or use of iterative reconstruction technique. IV Contrast dosage and agent: None. RADIATION DOSAGE (If Supplied By Facility): CTDIvol = ( 47.06 ) mGy, DLP = ( 837.39 ) mGycm COMPARISON: February 29, 2024 FINDINGS: BRAIN PARENCHYMA: No intra- or extra-axial hemorrhage. There aren''t foci of low attenuation within the white matter of the cerebral hemispheres, a nonspecific finding most commonly reflecting small vessel ischemia. No evidence of acute infarct. No intracranial mass or mass effect. There are a few stable scattered extra-axial punctate calcifications which may be secondary to a remote infectious process. There is preservation of the girard/white matter interface. Posterior fossa structures are unremarkable. CSF SPACES: Appropriate for age. No hydrocephalus. Basal cisterns are patent. CALVARIUM, SKULL BASE, PARANASAL SINUSES AND MASTOID AIR CELLS: There is opacification of the left maxillary sinus again visualized associated with calcifications suggestive of chronic sinusitis. No discrete lytic or blastic abnormalities. ORBITS: Both globes, extraocular muscles, optic nerves and retrobulbar fat appear unremarkable. ASPECTS Score for Acute Strokes: 10 CT/Brain/Head without Contrast IMPRESSION: No acute intracranial process. Small vessel ischemia. Electronically Signed: Abby Fleming MD at 13:29 EST ,
[2024-05-09] MEDS: Insulin Lispro 100 UNIT/ML INSULN.PEN 20 UNIT SC (12:39)
[2024-05-09 13:04] VITALS: BP 177/57; O2SAT 96
--- NOTE | 2024-05-09 13:04 | RAD_ITS ---
INDICATION: weakness EXAMINATION/TECHNIQUE: X-RAY - XR Chest 2 Views COMPARISON: February 29, 2024 FINDINGS: LINES/DEVICES: None. LUNGS: There is a grossly stable left pleural effusion. No pneumothorax. MEDIASTINUM AND CARDIOVASCULAR STRUCTURES: Cardiac silhouette not enlarged. Central airways and mediastinal contour are unremarkable. BONES AND SOFT TISSUES: Unremarkable. RAD/Chest PA and Lateral IMPRESSION: Stable left pleural effusion, cannot exclude associated left basilar consolidation. Electronically Signed: Abby Fleming MD at 13:33 EST ,
[2024-05-09 13:25] LABS: Mucous, Urine 0 SEEN /hpf (<or=2+); Squamous Epithelial Cells - UA 0 SEEN /hpf (0-5); White Blood Cells 0 SEEN /hpf (0-5)
[2024-05-09 13:38] LABS: Color, Urine Yellow (Yellow); Glucose, Dipstick 1000 mg/dl (Normal); Ketone-Dipstick 5 mg/dl (Negative); Leukocyte Esterase-Dipstick Negative /ul (Negative); Nitrite-Dipstick Negative (Negative); Occult Blood-Urine 25 /ul (Negative); Protein-Dipstick 100 mg/dl (Negative); Urine Bilirubin Dipstick Negative (Negative); Urine Clarity Clear (Clear); Urine Urobilinogen Normal (Normal)
[2024-05-09 13:49] LABS: Bacteria RARE /hpf (None Seen); Fine Granular Cast- Urine 0-5 SEEN /lpf (0-5); Red Blood Cells-Urine 0-5 SEEN /hpf (0-5)
[2024-05-09 13:50] LABS: Bedside Glucose 376 mg/dL (74-106)
[2024-05-09 15:00] VITALS: BP 157/59; PULSE 64; RESP 18; O2SAT 99
[2024-05-09 15:41] LABS: Bedside Glucose 198 mg/dL (74-106)
[2024-05-09 16:08] VITALS: BP 183/75; PULSE 71; RESP 16; TEMP 36.3; O2SAT 95
== END 2024-05-09 16:13 | disposition home or self-care (01) ==
PROVIDERS: Emergency Provider Emergency Medicine; PCP Internal Medicine; Visit Provider Emergency Medicine
DX: E10.65 Type 1 diabetes mellitus with hyperglycemia (principal); I13.2 Hypertensive heart and chronic kidney disease with heart failure and with stage 5 chronic kidney disease, or end stage renal disease; N18.6 End stage renal disease; I50.22 Chronic systolic (congestive) heart failure; J44.9 Chronic obstructive pulmonary disease, unspecified; E10.42 Type 1 diabetes mellitus with diabetic polyneuropathy; E10.22 Type 1 diabetes mellitus with diabetic chronic kidney disease; Z79.4 Long term (current) use of insulin; E78.2 Mixed hyperlipidemia; I25.10 Atherosclerotic heart disease of native coronary artery without angina pectoris; R41.82 Altered mental status, unspecified; Z11.52 Encounter for screening for COVID-19; F17.210 Nicotine dependence, cigarettes, uncomplicated; I25.2 Old myocardial infarction; Z79.82 Long term (current) use of aspirin; Z79.899 Other long term (current) drug therapy
CPT/HCPCS: 99285; 70450; 71046; 80048; 81001; 82962; 85025; 87631

== ENCOUNTER 2024-05-11 07:43 | Inpatient (IN) | payer MEDICARE, OTHER, SELFPAY ==
[2024-05-11] VITALS (25 sets, daily range): BP systolic 148–201; BP diastolic 62–93; PULSE 81–131; RESP 12–34; TEMP 36.3–37; O2SAT 82–97; BMI 19.4; BMI 17.8
--- NOTE | 2024-05-11 07:44 | EKG12_ITS ---
Test Reason : SOB Blood Pressure : */* mmHG Vent. Rate : 106 BPM Atrial Rate : 106 BPM P-R Int : 152 ms QRS Dur : 92 ms QT Int : 332 ms P-R-T Axes : -23 67 40 degrees QTcB Int : 441 ms Sinus tachycardia Moderate voltage criteria for LVH, may be normal variant ( Sokolow-Rahman , [place] product ) Borderline ECG Confirmed by JARRETT VARGAS, PERRY ([id number]), editorial clerk WHIT CARLOS ([id number]) on 05/12/2024 1:19:10 PM Referred By: Confirmed By: PERRY FARIAS MD
[2024-05-11] MEDS: 0.9% Normal Saline (1000mL) 1,000 ML 999 ML IV ×2 (07:49→08:42)
[2024-05-11 07:58] LABS: Absolute Lymphocyte Count 0.39 X10^3/uL (0.83-4.51); Absolute Neutrophil Count 5.9 X10^3/uL (2.0-7.7); Basophil# 0.03 X10^3/uL; Basophil% 0.5 % (0-1); Eosinophil# 0.01 X10^3/uL; Eosinophils% 0.2 % (0-5); Hematocrit 34.4 % (40-54); Hemoglobin 10.7 g/dL (13.0-16.5); Lymphocyte # 0.39 X10^3/ul (0.83-4.51); Lymphocyte % 5.9 % (19-41); Mean Corp Hgb Conc 31.1 g/dL (32-36); Mean Corpuscular Hgb 29.6 pg (27.0-32.0); Mean Corpuscular Volume 95.3 fL (80-94); Mean Platelet Vol. 10.6 fl (6.2-12.0); Monocyte# 0.31 X10^3/uL; Monocyte% 4.7 % (0-10); NRBC Flagged by Analyzer 0 % (0-5); Neutrophil # 5.85 X10^3/uL (2.7-7.7); Neutrophil % 88.2 % (47-70); POSITIVE DIFFERENTIAL YES; Platelet Count 319 K/mm3 (150-450); RBC Distribution Width CV 15.8 % (11.6-14.6); RBC Distribution Width SD 54.7 fl (35.1-43.9); Red Blood Count 3.61 M/mm3 (4.6-6.2); White Blood Count 6.6 K/mm3 (4.4-11.0)
[2024-05-11 08:11] LABS: Bedside Glucose > 500 mg/dL (74-106)
[2024-05-11 08:11] LABS: Allen Test Positive; Base Excess -8 mmol/L (-2 to +2); Bicarbonate 18.3 mmol/L (22-26); Blood Gas Specimen Type ART; Mode Not entered; O2 Delivery Device Cannula; PO2 52 mmHG (75-100); SITE R Radial; SO2 85 % (95-99); Total Carbon Dioxide 19 mmol/L; pCO2 34.4 mmHg (35-45); pH 7.33 (7.35-7.45)
[2024-05-11 08:35] LABS: Anion Gap 20 (5-15); BUN 37 mg/dL (7-18); BUN/Creat Ratio 13.5 RATIO (10-20); Calcium,Total 8.6 mg/dL (8.5-10.1); Chloride 85 mmol/L (98-107); Creatinine, Serum 2.75 mg/dL (0.70-1.30); EST Glomerular Filtration Rate 24 mL/min (>60); Est Glom Filt Rate - Afr Amer 29 mL/min (>60); Estimated Creatinine Clearance 17.06 ml/min; Glucose 895 mg/dL (74-106); Magnesium 2.4 mg/dL (1.6-2.6); Potassium 5.2 mmol/L (3.5-5.1); Sodium Level 127 mmol/L (136-145)
--- NOTE | 2024-05-11 08:40 | EDS_ITS ---
HPI History of Present Illness Chief Complaint: Hyperglycemia Detail of Chief Complaint: Hyperglycemia, decreased mental status, fever Informant: patient, family and EMS Onset/Context/Timing Onset: - (Uncertain since patient is disoriented) Context: - (Unknown) Timing: Continuous (Presumed) Quality: High blood sugar per EMS, altered mental status, tachypnea, tachycardia Location: Presents from home Current Severity: Moderate Maximum Severity: Moderate Worsened by: Presumed DKA Relieved by: Nothing Associated Symptoms Associated Symptoms: Shortness of breath, hypoxia and cough Narrative Narrative: Patient was seen on May 09. He chief complaint was hyperglycemia. He was treated for diabetic hyperglycemia. Reviewed records to determine if patient had any respiratory or cardiac symptoms at that time since he is disoriented and not able to answer many questions. His workup on Thursday included CT of the head, chest x-ray, urine and appropriate blood work. Patient had hyperglycemia without evidence of DKA. Blood work was remarkable for initial blood sugar of 618. CO2 is 24. BUN and creatinine were 45 and 3.46 which is higher than his baseline. Daughter states that he does not recognize her, and he is normally oriented. Prior similar symptoms: Yes Recent Illness/Hospitalization: Yes [facility] Medical History Insomnia Anorexia Fracture of femoral neck, right, open Carotid stenosis Anxiety and depression Carotid artery disease Lipohypertrophy due to insulin injection Dyslipidemia Carotid bruit Coronary artery disease Chronic neck pain Debility Cancer Open wound Polymyalgia arteritica Low iron Leg cramps History of edema Cardiology follow-up encounter Prostate cancer Dependent on hemodialysis NPDR (nonproliferative diabetic retinopathy) Nonrheumatic aortic (valve) stenosis History of non-ST elevation myocardial infarction (NSTEMI) End stage renal disease Leukocytosis Edema of left upper arm HFrEF (heart failure with reduced ejection fraction) Acquired neutrophilia Aortic valve stenosis 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 1 diabetes mellitus Chronic neck and back pain Skin mole Fatigue Watery eyes CKD (chronic kidney disease) stage 4, GFR 15-29 ml/min Aortic root dilatation Olecranon bursitis, left elbow Mediastinal mass Type 1 diabetes mellitus with hyperglycemia Olecranon bursitis, right elbow Unintentional weight loss of more than 10 pounds Swelling of right elbow Heart murmur Contact with or suspected exposure to other viral communicable disease Acute bronchitis Insulin dependent diabetes mellitus CKD (chronic kidney disease), stage IV Osteopenia Wears hearing aid Wears glasses Wears dentures Alcohol use Insulin dependent diabetes mellitus Arthritis High cholesterol Back pain Dietary restriction Former smoker Shortness of breath on exertion History of pain when walking History of stress test History of echocardiogram Nicotine dependence, cigarettes, uncomplicated COPD (chronic obstructive pulmonary disease) Episode of syncope Mass of lung REYES (dyspnea on exertion) Wears hearing aid in both ears Hearing loss, left Hearing loss, right Kidney stones Smoker Hypertension Chronic kidney insufficiency Diabetic retinopathy associated with type 1 diabetes mellitus Benign essential hypertension Stage 3 chronic kidney disease due to type 1 diabetes mellitus Diabetic polyneuropathy associated with type 1 diabetes mellitus Essential hypertension Mixed hyperlipidemia Vision problem Prostate disease Osteoarthritis Hearing problem COPD (chronic obstructive pulmonary disease) Cataracts, bilateral Bone fracture Back problem Anemia Bronchitis Family history of hyperlipidemia Family history of hypertension Headache Dyspnea on exertion Hyperlipidemia Nicotine abuse Atherosclerotic heart disease of [place] coronary artery without angina pectoris penitentiary use of drug Sleep apnea Hypertension Home Medications ?Medication ?Instructions ?Recorded ?Last Taken ?Type aspirin 81 mg tablet,delayed 81 mg PO QDAY 06/15/17 03/01/23 History release (Adult Low Dose Aspirin) finasteride 5 mg tablet (Proscar) 5 mg PO DAILY 06/16/17 Unknown History flash glucose scanning reader #2 ea 03/28/22 Unknown Rx (FreeStyle Tani 2 [place]) flash glucose sensor (FreeStyle #2 ea 03/28/22 Unknown Rx Tani 2 Sensor kit) cholecalciferol (vitamin D3) 125 125 mcg PO DAILY 05/05/22 Unknown History mcg (5,000 unit) capsule PureFlow B 2K Dialysis Soln 6 bag perfusion UD ##0 12/12/22 Unknown Rx acetaminophen 325 mg tablet 650 mg (2 x 325 mg) PO Q4H PRN PRN 12/12/22 Unknown Rx Fever, pain 1-01/20 #0 tabs insulin lispro 100 unit/mL See Protocol subcut ACHS 01/14/23 Unknown History subcutaneous pen (Humalog KwikPen (U-100) Insulin) calcium 600 mg (as 1 cap PO DAILY 01/23/23 Unknown History carbonate)-vitamin D3 10 mcg (400 unit) capsule amlodipine 5 mg tablet 5 mg PO DAILY 01/26/23 03/02/23 History insulin glargine 100 unit/mL (3 8 unit subcut QPM DM 01/28/23 Unknown History mL) subcutaneous pen (Lantus Solostar U-100 Insulin) foam bandage 4 X 4 (Mepilex) #5 ea 01/29/23 Unknown Rx vitamins A,C,H-sqgx-nhazyg 4,296 1 cap PO DAILY #90 caps 02/27/23 Unknown Rx mcg-226 mg-90 mg capsule (ICaps AREDS) clonidine HCl 0.1 mg tablet 0.1 mg PO BID 01/29/24 Unknown History folic acid 400 mcg tablet 400 mcg PO DAILY 01/29/24 Unknown History furosemide 40 mg tablet 40 mg PO DAILY weight gain 01/29/24 Unknown History gabapentin 300 mg capsule 300 mg PO TID 01/29/24 Unknown History magnesium 250 mg tablet 250 mg PO QDAY 01/29/24 Unknown History pantoprazole 40 mg tablet,delayed 40 mg PO BID 01/29/24 Unknown History release renal multivitamin 1 tab PO DAILY 01/29/24 Unknown History tamsulosin 0.4 mg capsule 0.4 mg PO QDAY 01/29/24 Unknown History atorvastatin 40 mg tablet 40 mg PO QHS 02/24/24 Unknown History metoprolol tartrate 25 mg tablet 25 mg PO DAILY 02/24/24 Unknown History aluminum-mag hydroxide-simethicone 30 ml PO Q6H PRN PRN Gastric 02/28/24 Unknown Rx 400 mg-400 mg-40 mg/5 mL oral susp Burning #0 mL (Mag-Al Plus Extra Strength) apixaban 5 mg tablet (Eliquis) 2.5 mg (1/2 x 5 mg) PO BID 30 days 02/28/24 Unknown Rx #30 tabs ferrous sulfate 325 mg (65 mg 325 mg PO DAILY #30 tabs 02/28/24 Unknown Rx iron) tablet (Iron (ferrous sulfate)) melatonin 3 mg tablet 3 mg PO QHS PRN PRN Insomnia #0 02/28/24 Unknown Rx tabs sertraline 50 mg tablet 50 mg PO DAILY mood 02/29/24 Unknown History bisacodyl 5 mg tablet,delayed 10 mg (2 x 5 mg) PO DAILY #0 tabs 03/02/24 Unknown Rx release sennosides 8.6 mg-docusate sodium 2 tab PO BID #0 tabs 03/02/24 Unknown Rx 50 mg tablet (Stimulant Laxative Plus) mirtazapine 15 mg tablet (Remeron) 3.75 mg (1/4 x 15 mg) PO QHS #30 04/29/24 Unknown Rx tabs Allergy/AdvReac Type Severity Reaction Status Date / Time levofloxacin (From Levaquin) Allergy Hives Verified 05/11/24 07:50 vancomycin AdvReac Severe Rash Verified 05/11/24 07:50 Family History Father Diabetes Hypertension Family history of hyperlipidemia Asthma Kidney disease Mother Diabetes Brother Cancer Throat cancer Brother CAD (coronary artery disease) Myocardial infarction, Onset Age: 52 Sister Family history of hyperlipidemia Hypertension Diabetes Unknown Alcoholism Arthritis Depression Diabetes Hypertension Hyperlipidemia Osteoporosis Respiratory disease Pancreatic cancer Other Family history of hypertension Surgical History History of hip surgery S/P arteriovenous (AV) fistula creation Fracture of left patella Wrist fracture, bilateral Fracture of left upper extremity History of colonoscopy (~2013) History of bilateral inguinal hernia repair (~2007) History of hernia repair (~1991) History of hemorrhoidectomy (~2000) stent replacement for right sided kidney stome Social History household members: spouse Smoking Status: Current every day smoker tobacco type: cigarettes Tobacco: How many years used: 50 alcohol intake: never substance use type: does not use caffeine: Yes Type: coffee Number of servings: 2 what type of physical activity do you participate in: none seatbelt use: sometimes do you feel safe at home: Yes ROS ROS ED Review of Systems ROS Unobtainable: due to mental status EXAM Physical Exam Const Vital Signs: 05/11/24 07:44 05/11/24 08:43 05/11/24 08:44 Temperature 98.6 F 97.4 F L Temperature Source Axillary Temporal Pulse Rate 109 H 117 H Respiratory Rate 24 H 34 H Respiratory Effort Short of Breath Labored Respiratory Pattern Tachypnea Blood Pressure 189/78 H 187/69 H Blood Pressure Mean 115 108 Pulse Ox 84 90 Oxygen Delivery Method Room Air Nasal Cannula Oxygen Flow Rate (L/min) 4 Positive well developed and cachectic General Appearance ED: well developed, cachectic and cyanotic; Negative for diaphoretic or NAD Nutritional Appearance: cachectic HEENT Reports TM's clear and dry mucous membranes Negative for trauma or tenderness Tympanic Membrane ED: Yes TM's clear Mouth ED: Yes dry mucous membranes Mouth: dry mucous membranes Eyes PERRL and EOMs intact bilaterally General Eye ED: Negative for pale conjunctiva or scleral icterus Neck no lymphadenopathy, supple and no JVD Chest Wall inspection of chest normal and palpation of chest normal Resp No normal respiratory effort and No clear to auscultation bilaterally Resp Narrative: There is slight use of accessory muscles. There may be slight intercostal retractions. Patient has rales bilaterally. There is abnormal expiratory sounds noted. Breath sounds are diminished bilaterally. Breath sounds are symmetric. Cardio regular rhythm; Negative for no murmurs Rate: tachycardic GI GI Narrative: Flat. Bowel sounds are diminished. There is no palp pulsatile mass or abdominal bruit. There is no appreciable hepatosplenomegaly. There is some tenderness. There is no peritoneal findings however patient's exam is limited due to the fact that he has altered mental status. Back/Spine no CVA tenderness Back/Spine Narrative: Inspection of the back appears normal. Extremity Extremity Narrative: Acrocyanosis. Delayed capillary refill. Stigmata of peripheral arterial disease. Neuro No oriented x3 Neuro Narrative: He is oriented only to name. He moves all extremities. He withdraws to Babinski testing. Sensorium / Orientation: Negative for alert Psych Psych Narrative: Unable to assess Skin Skin Narrative: There are bruises noted. Bruises are on the abdomen. Sepsis Attestation Sepsis Attestation: Agree w/Sepsis Date exam was performed: 05/11/24 Time exam was performed: 09:03 Possible Source of Sepsis: Pulmonary Sepsis Organ Dysfunction Criteria Present: New/Unexplained change in mental status Fluid Resuscitation Fluid resuscitation indicated?: Yes Fluid Resuscitation ordered: 30 ml/kg fluid bolus ordered MDM MDM MDM Narrative Medical decision making narrative: Concern patient is in DKA. EKG reveals peaked T waves contacted lab to release potassium because of concern for possible hyperkalemia. The fact that he is hypoxic with abnormal oscillatory findings chest x-ray was repeated even though we have on the to evaluate for pneumonia. Suspect his altered mental status is due to DKA. ABG was ordered as well as appropriate blood work using the DKA order set. Insulin was not ordered initially. EKG was obtained to assess for hyperkalemia as well as cardiac ischemia. Chest x-ray to assess for pneumonia. Urine to assess for evidence of infection. 1 L of normal saline was ordered per DKA protocol followed by additional fluids per protocol since clinically is dehydrated with dry buccal mucosa. Also concerned because his creatinine was elevated from baseline when he was seen on the . Review of records indicates he does not have history of congestive heart failure. History & Record Review Discussion w/independent historian: Family Lab Data Attestation: I reviewed the patient's lab results. Lab results narrative: CBC is normal. H&H is 10.7 and 34.4 which is patient's baseline. Sodium is 127 and represents pseudohyponatremia. Potassium is slightly elevated 5.2. BUN and creatinine are 37 and 2.75 which is an improvement from March 09. Blood sugar is 895. CO2 is 22 with an anion gap of 20. Acetone present. Will start on insulin drip. Labs: Laboratory Results - last 24 hr 05/11/24 05/11/24 07:50 07:52 WBC 6.6 RBC 3.61 L Hgb 10.7 L Hct 34.4 L MCV 95.3 H MCH 29.6 MCHC 31.1 L RDW Std Deviation 54.7 H RDW Coeff of Russell 15.8 H Plt Count 319 MPV 10.6 Immature Gran % (Auto) 0.500 Neut % (Auto) 88.2 H Lymph % (Auto) 5.9 L Calloway % (Auto) 4.7 Eos % (Auto) 0.2 Baso % (Auto) 0.5 Absolute Neuts (auto) 5.9 Absolute Lymphs (auto) 0.39 L Nucleated RBC % 0 Sodium 127 L Potassium 5.2 H Chloride 85 L Carbon Dioxide 22.0 Anion Gap 20 H BUN 37 H Creatinine 2.75 H Estim Creat Clear Calc 17.06 Est GFR (MDRD) Af Amer 29 L Est GFR (MDRD) Non-Af 24 L BUN/Creatinine Ratio 13.5 Glucose 895 H* Calcium 8.6 Magnesium 2.4 Acetone Level SMALL H POC Glucose > 500 H* ABG Data Attestation: I personally reviewed and interpreted this ABG as follows: Interpretation: ABG reveals a metabolic acidosis. Patient also has an increased AA gradient with hypoxia. ABG results: ABG 05/11/24 08:07 Specimen Type ART Sample Site R Radial pH 7.33 L Bicarbonate Actual 18.3 L Total CO2 19 Base Excess -8 L O2 Saturation 85 L O2 % 28.0 ABG pCO2 34.4 L ABG pO2 52 L Ren Test Positive O2 Delivery Device Cannula Vent Mode Not entered Radiography Chest X-Ray - ED: 1 View and Read by ED Physician (Bilateral interstitial infiltrates which are new compared to chest x-ray obtained on the and .) Management Discussion w/another healthcare provider: Hospitalist (Case discussed with Dr. Rayshawn Norman. I was unable to answer when he was last d Case discussed with Dr. Owusu patient's presentation findings. Clinically I do not believe patient is fluid overloaded. Furthermore patient had a normal EF February 2024.) Treatment and Re-Evaluation :: Spoke with family at 0900. He was in the hospital for 4 to 5 days and then went to rehab. Will treat for possible healthcare acquired pneumonia. He was treated with piperacillin and azithromycin was added since he has been out in the community to cover atypicals. In my opinion there is no risk for MRSA at this time. Furthermore he is allergic to vancomycin with rash. Comments:: There is inform me at 0940 the patient is very agitated. Will treat his agitation with 10 mg of Geodon IM. Critical Care Time Critical Care Time: Yes Critical care time (excluding procedures): 30-74 minutes (47), Including time spent: (History, physical, review of prior records, independent rotation of laboratory results and treat for DKA, sepsis), Discussing w/Patient &/or Family/Pull Out Operator (Initial conversation with daughter. Another family member present. Spoke to her as well.), Discussing w/Consultants, Arranging Admission or Transfer and Performing Direct Patient Care at Bedside Discharge Plan Dx/Rx/DC Orders Clinical Impression: Sepsis, End stage renal disease, Nonrheumatic aortic (valve) stenosis, Coronary artery disease, Anemia, Nicotine dependence, cigarettes, uncomplicated, CKD (chronic kidney disease), stage IV, Heart murmur, Acute encephalopathy, Acute hypoxemic respiratory failure, Interstitial pneumonia of both lungs, Acute exacerbation of chronic obstructive pulmonary disease, Acute bronchospasm, Coma, hyperosmolar nonketotic, Ketosis Disposition Disposition: Acute Care [facility]
--- NOTE | 2024-05-11 08:55 | RAD_ITS ---
PROCEDURE: CHEST 1 VIEW (PORTABLE) REASON FOR EXAM: Bibasilar rales, hypoxia, and tachypnea. TECHNIQUE: Single frontal image including the chest and abdomen. COMPARISON: Chest x-ray of 02/29/2024. RAD/Chest 1 View (Portable) IMPRESSION: A [id number] left pleural effusion is now seen. Moderate bilateral pulmonary infiltrates are seen, predominantly central, most concerning for significant pulmonary edema. Can not exclude an area or areas of pneumonitis, however. No pneumothorax is seen. The cardiomediastinal silhouette is stable, without evidence of cardiomegaly. Reading Location: [id number]
[2024-05-11] MEDS: Azithromycin 500 MG in 0.9% Normal Saline (250mL Bag) 250 ML 255 MG IV (09:16)
[2024-05-11] MEDS: Ipratropium/Albuterol Sulfate 3 ML AMPUL.NEB INHALATION ×4 (09:21→23:20)
[2024-05-11] MEDS: Ziprasidone IM 20 MG/ML VIAL 10 MG IM (09:47)
[2024-05-11] MEDS: Insulin Lispro 100 UNIT in 0.9% Normal Saline (100mL Bag) 99 ML 5.6 UNIT CONT INF (09:50)
[2024-05-11 09:54] LABS: Bedside Glucose > 500 mg/dL (74-106)
[2024-05-11 10:21] LABS: Anion Gap 23 (5-15); BUN 37 mg/dL (7-18); Calcium,Total 7.8 mg/dL (8.5-10.1); Chloride 90 mmol/L (98-107); Creatinine, Serum 2.65 mg/dL (0.70-1.30); EST Glomerular Filtration Rate 25 mL/min (>60); Est Glom Filt Rate - Afr Amer 30 mL/min (>60); Glucose 952 mg/dL (74-106); Potassium 5.2 mmol/L (3.5-5.1); Sodium Level 127 mmol/L (136-145)
[2024-05-11 12:45] LABS: Procalcitonin 0.27 ng/mL (0.00-0.09)
[2024-05-11 12:47] LABS: Osmolality, Serum 327 mOsm/KG (280-301)
--- NOTE | 2024-05-11 12:47 | EX.PCM.CONCC ---
Assessment & Plan Assessment/Plan (1) DKA (diabetic ketoacidoses): QUALIFIERS: Diabetes mellitus type: type 1 Diabetes mellitus complication detail: without coma Qualified Code(s): E10.10 - Type 1 diabetes mellitus with ketoacidosis without coma PLAN: Plan RECOMMENDATIONS: 1. Continue fluids and insulin per protocol. 2. Long-acting insulin can be started once anion gap is closed x 2. 3. Cautious use of fluids given underlying renal and valvular heart disease. 4. Agree with empiric antibiotics for now. 5. Continue appropriate DVT prophylaxis. 6. Attempt to wean from BiPAP to nasal cannula oxygen, if feasible. 7. Check respiratory viral panel and procalcitonin. IMPRESSIONS: 1. Diabetic ketoacidosis Patient presented to the hospital with altered mental status and hyperglycemia. He has a known history of insulin-dependent diabetes mellitus. At this time, the patient will be fluid resuscitated and started on a continuous insulin infusion per protocol. He will remain n.p.o. for now. 2. Acute hypoxemic respiratory failure The patient's chest imaging is most concerning for questionable pulmonary edema. However, it would be reasonable to continue empiric antibiotics to cover for possible pneumonia, pending infectious workup. I would recommend the judicious use of IV fluids, given his underlying renal insufficiency and valvular heart disease. Will plan to check respiratory viral panel along with procalcitonin. 3. End-stage renal disease on hemodialysis Consultation to be placed to nephrology to assist with ongoing hemodialysis needs. 4. History of mild COPD/anemia/coronary artery disease/paroxysmal atrial fibrillation/moderate aortic stenosis Complicates care, management, recovery and prognosis. Continue supportive measures as noted above. Recommend physical therapy evaluation once medically stabilized. Recommend nutrition consultation given documented history of anorexia and malnutrition by PCP. This note was generated with Docu[employer]ak dictation software. It may contain incorrect words, spelling, and punctuation that were not noted in checking the note before signing. HPI Consult Data Date of Consult: 05/11/24 HPI Narrative Reason for Consultation: Respiratory failure, DKA HPI Narrative: The patient is an 78-year-old male, with a history as outlined below, who presented to the emergency department on May 11 with altered mental status and hyperglycemia. He had been evaluated in the ED on May 09, under similar circumstances, when his blood sugar was noted to be 560. He was not deemed to be in DKA at that time was treated with IV fluids and insulin. He was subsequently discharged back to [facility]. The patient does have a known history of mild obstructive lung disease and has been followed in the pulmonary medicine clinic, most recently as July 2023. He has not been maintained on a maintenance inhaler regimen due to his lack of any respiratory symptoms. The patient does have a [id number] smoking history, having quit completely in January 2021. The patient's medical history is also significant for end-stage renal disease, insulin-dependent diabetes mellitus, anemia, nonobstructive coronary artery disease with paroxysmal atrial fibrillation and moderate aortic stenosis. The patient also had a recent hip fracture secondary to mechanical fall for which hemiarthroplasty was completed in February 2024. On presentation to the emergency department, the patient was documented to be afebrile but was tachycardic, tachypneic and hypertensive. He was initially documented to be saturating 84% on room air. Laboratory evaluation revealed a normal white blood cell count with a hemoglobin of 10.7 g/dL and normal platelet count. Arterial blood gas was notable for a pH of 7.33 with a pCO2 of 34 and pO2 of 52. Chemistry profile was notable for a sodium of 127, potassium of 5.2, chloride of 85, anion gap of 20, BUN of 37 creatinine of 2.75. Glucose was elevated at 895. Small serum acetone level was noted. Chest x-ray demonstrated bilateral pulmonary infiltrates with a questionable left-sided effusion. Blood cultures were collected. COVID, influenza and RSV PCR's were negative. The patient did receive supplemental IV fluid hydration and was started on a continuous insulin infusion along with empiric antibiotics. He was subsequently admitted to the medical intensive care unit for further management. [facility] Medical History Insomnia Anorexia Fracture of femoral neck, right, open Carotid stenosis Anxiety and depression Carotid artery disease Lipohypertrophy due to insulin injection Dyslipidemia Carotid bruit Coronary artery disease Chronic neck pain Debility Cancer Open wound Polymyalgia arteritica Low iron Leg cramps History of edema Cardiology follow-up encounter Prostate cancer Dependent on hemodialysis NPDR (nonproliferative diabetic retinopathy) Nonrheumatic aortic (valve) stenosis History of non-ST elevation myocardial infarction (NSTEMI) End stage renal disease Leukocytosis Edema of left upper arm HFrEF (heart failure with reduced ejection fraction) Acquired neutrophilia Aortic valve stenosis 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 1 diabetes mellitus Chronic neck and back pain Skin mole Fatigue Watery eyes CKD (chronic kidney disease) stage 4, GFR 15-29 ml/min Aortic root dilatation Olecranon bursitis, left elbow Mediastinal mass Type 1 diabetes mellitus with hyperglycemia Olecranon bursitis, right elbow Unintentional weight loss of more than 10 pounds Swelling of right elbow Heart murmur Contact with or suspected exposure to other viral communicable disease Acute bronchitis Insulin dependent diabetes mellitus CKD (chronic kidney disease), stage IV Osteopenia Wears hearing aid Wears glasses Wears dentures Alcohol use Insulin dependent diabetes mellitus Arthritis High cholesterol Back pain Dietary restriction Former smoker Shortness of breath on exertion History of pain when walking History of stress test History of echocardiogram Nicotine dependence, cigarettes, uncomplicated COPD (chronic obstructive pulmonary disease) Episode of syncope Mass of lung REYES (dyspnea on exertion) Wears hearing aid in both ears Hearing loss, left Hearing loss, right Kidney stones Smoker Hypertension Chronic kidney insufficiency Diabetic retinopathy associated with type 1 diabetes mellitus Benign essential hypertension Stage 3 chronic kidney disease due to type 1 diabetes mellitus Diabetic polyneuropathy associated with type 1 diabetes mellitus Essential hypertension Mixed hyperlipidemia Vision problem Prostate disease Osteoarthritis Hearing problem COPD (chronic obstructive pulmonary disease) Cataracts, bilateral Bone fracture Back problem Anemia Bronchitis Family history of hyperlipidemia Family history of hypertension Headache Dyspnea on exertion Hyperlipidemia Nicotine abuse Atherosclerotic heart disease of [place] coronary artery without angina pectoris assisted use of drug Sleep apnea Hypertension Home Medications ?Medication ?Instructions ?Recorded ?Last Taken ?Type aspirin 81 mg tablet,delayed 81 mg PO QDAY 06/15/17 03/01/23 History release (Adult Low Dose Aspirin) finasteride 5 mg tablet (Proscar) 5 mg PO DAILY 06/16/17 Unknown History flash glucose scanning reader #2 ea 03/28/22 Unknown Rx (FreeStyle Tani 2 [place]) flash glucose sensor (FreeStyle #2 ea 03/28/22 Unknown Rx Tani 2 Sensor kit) cholecalciferol (vitamin D3) 125 125 mcg PO DAILY 05/05/22 Unknown History mcg (5,000 unit) capsule PureFlow B 2K Dialysis Soln 6 bag perfusion UD ##0 12/12/22 Unknown Rx acetaminophen 325 mg tablet 650 mg (2 x 325 mg) PO Q4H PRN PRN 12/12/22 Unknown Rx Fever, pain 1-01/20 #0 tabs insulin lispro 100 unit/mL See Protocol subcut ACHS 01/14/23 Unknown History subcutaneous pen (Humalog KwikPen (U-100) Insulin) calcium 600 mg (as 1 cap PO DAILY 01/23/23 Unknown History carbonate)-vitamin D3 10 mcg (400 unit) capsule amlodipine 5 mg tablet 5 mg PO DAILY 01/26/23 03/02/23 History insulin glargine 100 unit/mL (3 8 unit subcut QPM DM 01/28/23 Unknown History mL) subcutaneous pen (Lantus Solostar U-100 Insulin) foam bandage 4 X 4 (Mepilex) #5 ea 01/29/23 Unknown Rx vitamins A,C,G-ychi-rzmkvn 4,296 1 cap PO DAILY #90 caps 02/27/23 Unknown Rx mcg-226 mg-90 mg capsule (ICaps AREDS) clonidine HCl 0.1 mg tablet 0.1 mg PO BID 01/29/24 Unknown History folic acid 400 mcg tablet 400 mcg PO DAILY 01/29/24 Unknown History furosemide 40 mg tablet 40 mg PO DAILY weight gain 01/29/24 Unknown History gabapentin 300 mg capsule 300 mg PO TID 01/29/24 Unknown History magnesium 250 mg tablet 250 mg PO QDAY 01/29/24 Unknown History pantoprazole 40 mg tablet,delayed 40 mg PO BID 01/29/24 Unknown History release renal multivitamin 1 tab PO DAILY 01/29/24 Unknown History tamsulosin 0.4 mg capsule 0.4 mg PO QDAY 01/29/24 Unknown History atorvastatin 40 mg tablet 40 mg PO QHS 02/24/24 Unknown History metoprolol tartrate 25 mg tablet 25 mg PO DAILY 02/24/24 Unknown History aluminum-mag hydroxide-simethicone 30 ml PO Q6H PRN PRN Gastric 02/28/24 Unknown Rx 400 mg-400 mg-40 mg/5 mL oral susp Burning #0 mL (Mag-Al Plus Extra Strength) apixaban 5 mg tablet (Eliquis) 2.5 mg (1/2 x 5 mg) PO BID 30 days 02/28/24 Unknown Rx #30 tabs ferrous sulfate 325 mg (65 mg 325 mg PO DAILY #30 tabs 02/28/24 Unknown Rx iron) tablet (Iron (ferrous sulfate)) melatonin 3 mg tablet 3 mg PO QHS PRN PRN Insomnia #0 02/28/24 Unknown Rx tabs sertraline 50 mg tablet 50 mg PO DAILY mood 02/29/24 Unknown History bisacodyl 5 mg tablet,delayed 10 mg (2 x 5 mg) PO DAILY #0 tabs 03/02/24 Unknown Rx release sennosides 8.6 mg-docusate sodium 2 tab PO BID #0 tabs 03/02/24 Unknown Rx 50 mg tablet (Stimulant Laxative Plus) mirtazapine 15 mg tablet (Remeron) 3.75 mg (1/4 x 15 mg) PO QHS #30 04/29/24 Unknown Rx tabs Allergy/AdvReac Type Severity Reaction Status Date / Time levofloxacin (From Levaquin) Allergy Hives Verified 05/11/24 07:50 vancomycin AdvReac Severe Rash Verified 05/11/24 07:50 Family History Father Diabetes Hypertension Family history of hyperlipidemia Asthma Kidney disease Mother Diabetes Brother Cancer Throat cancer Brother CAD (coronary artery disease) Myocardial infarction, Onset Age: 52 Sister Family history of hyperlipidemia Hypertension Diabetes Unknown Alcoholism Arthritis Depression Diabetes Hypertension Hyperlipidemia Osteoporosis Respiratory disease Pancreatic cancer Other Family history of hypertension Surgical History History of hip surgery S/P arteriovenous (AV) fistula creation Fracture of left patella Wrist fracture, bilateral Fracture of left upper extremity History of colonoscopy (~2013) History of bilateral inguinal hernia repair (~2007) History of hernia repair (~1991) History of hemorrhoidectomy (~2000) stent replacement for right sided kidney stome Social History household members: spouse Smoking Status: Current every day smoker tobacco type: cigarettes Tobacco: How many years used: 50 alcohol intake: never substance use type: does not use caffeine: Yes Type: coffee Number of servings: 2 what type of physical activity do you participate in: none seatbelt use: sometimes do you feel safe at home: Yes ROS Review of Systems ROS Unobtainable: due to mental status Physical Exam Const Constitutional Narrative: The patient is disoriented and confused attempting to remove his BiPAP mask. General Appearance: ill appearing HEENT normocephalic and head/scalp atraumatic HEENT Narrative: Dry mucous membranes Eyes EOMs intact bilaterally, conjunctivae normal and no scleral icterus Neck supple General: trachea midline Chest inspection of chest normal Resp Effort and Inspection: tachypneic Auscultation: diminished lung sounds Cardio S1 normal heart sound and S2 normal heart sound Rate: tachycardic GI normal to inspection, nondistended, normoactive bowel sounds Extremity no clubbing, cyanosis or edema Skin no rashes or lesions noted Neuro moves all extremities and no focal motor deficits Lab / Micro Data 05/11/24 07:50 05/11/24 09:41 Labs: Laboratory Results - last 24 hr 05/11/24 07:50: WBC 6.6, RBC 3.61 L, Hgb 10.7 L, Hct 34.4 L, MCV 95.3 H, MCH 29.6, MCHC 31.1 L, RDW Std Deviation 54.7 H, RDW Coeff of [place] 15.8 H, Plt Count 319, MPV 10.6, Immature Gran % (Auto) 0.500, Neut % (Auto) 88.2 H, Lymph % (Auto) 5.9 L, [place] % (Auto) 4.7, Eos % (Auto) 0.2, Baso % (Auto) 0.5, Absolute Neuts (auto) 5.9, Absolute Lymphs (auto) 0.39 L, Nucleated RBC % 0, Sodium 127 L, Potassium 5.2 H, Chloride 85 L, Carbon Dioxide 22.0, Anion Gap 20 H, BUN 37 H, Creatinine 2.75 H, Estim Creat Clear Calc 17.06, Est GFR (MDRD) Af Amer 29 L, Est GFR (MDRD) Non-Af 24 L, BUN/Creatinine Ratio 13.5, Glucose 895 H*, Calcium 8.6, Magnesium 2.4, Procalcitonin 0.27 H, Acetone Level SMALL H 05/11/24 07:52: POC Glucose > 500 H* 05/11/24 09:37: POC Glucose > 500 H* 05/11/24 09:41: Sodium 127 L, Potassium 5.2 H, Chloride 90 L, Carbon Dioxide 15.0 L, Anion Gap 23 H, BUN 37 H, Creatinine 2.65 H, Estim Creat Clear Calc 17.70, Est GFR (MDRD) Af Amer 30 L, Est GFR (MDRD) Non-Af 25 L, BUN/Creatinine Ratio 14.0, Glucose 952 H*, Calcium 7.8 L Micro: Microbiology 05/11/24 07:55 Mucosa - Nose SARS-CoV-2, Influenza & RSV (PCR) - Final ABG Data ABG results: ABG 05/11/24 08:07 Specimen Type ART Sample Site R Radial pH 7.33 L Bicarbonate Actual 18.3 L Total CO2 19 Base Excess -8 L O2 Saturation 85 L O2 % 28.0 ABG pCO2 34.4 L ABG pO2 52 L Ren Test Positive O2 Delivery Device Cannula Vent Mode Not entered Imaging Radiology Impression Chest X-Ray 05/11/24 08:55 IMPRESSION: A [id number]-[id number] left pleural effusion is now seen. Moderate bilateral pulmonary infiltrates are seen, predominantly central, most concerning for significant pulmonary edema. Can not exclude an area or areas of pneumonitis, however. No pneumothorax is seen. The cardiomediastinal silhouette is stable, without evidence of cardiomegaly. Reading Location: [id number] Charges/Coding Visit Charges Inpatient E&M: 30197 Init Hosp L3
[2024-05-11 12:50] LABS: BNP,B-Type NATRIURETIC PEPTIDE 2165.7 pg/mL (0-100)
[2024-05-11 13:22] LABS: Anion Gap 22 (5-15); BUN 40 mg/dL (7-18); BUN/Creat Ratio 13.5 RATIO (10-20); Calcium,Total 8.2 mg/dL (8.5-10.1); Chloride 94 mmol/L (98-107); Creatinine, Serum 2.96 mg/dL (0.70-1.30); EST Glomerular Filtration Rate 22 mL/min (>60); Est Glom Filt Rate - Afr Amer 26 mL/min (>60); Estimated Creatinine Clearance 14.94 ml/min; Glucose 863 mg/dL (74-106); Potassium 4.5 mmol/L (3.5-5.1); Sodium Level 130 mmol/L (136-145)
[2024-05-11] MEDS: Piperacil/Tazobactam 3.375 GM in 0.9% Normal Saline (50mL MB+) 50 ML IV ×2 (14:10→21:37)
[2024-05-11 15:14] LABS: Glucose 649 mg/dL (74-106)
[2024-05-11 15:38] LABS: Bedside Glucose > 500 mg/dL (74-106)
[2024-05-11 16:18] LABS: Glucose 492 mg/dL (74-106)
[2024-05-11 16:55] LABS: Anion Gap 14 (5-15); BUN 41 mg/dL (7-18); Calcium,Total 8.3 mg/dL (8.5-10.1); Chloride 97 mmol/L (98-107); Creatinine, Serum 2.93 mg/dL (0.70-1.30); EST Glomerular Filtration Rate 22 mL/min (>60); Est Glom Filt Rate - Afr Amer 27 mL/min (>60); Estimated Creatinine Clearance 15.09 ml/min; Glucose 492 mg/dL (74-106); Potassium 3.9 mmol/L (3.5-5.1); Sodium Level 134 mmol/L (136-145)
--- NOTE | 2024-05-11 17:21 | PCM.CONS.R ---
Assessment & Plan Assessment/Plan (1) End stage renal disease: PLAN: On HD TTS schedule, last HD was yesterday received full HD will plan for HD tomorrow Hyperglycemia elevated anion gap acidosis and ketones positive currently on insulin drip for DKA dw hospitalist HPI Consult Data Date of Consult: 05/11/24 HPI Narrative Reason for Consultation: ESRd HPI Narrative: DEX VALLE, is a 78 M who presents to hospital with AMS. Nephrology on consultation in view of ESRD. ESRD on HD TTS schedule. Actually I saw him yesterday on HD and was ok. was found to be confused at home yesterday, hyperglycemia. currently being treated for DKA. seen on ICU. remains somnolent. [facility] Medical History Insomnia Anorexia Fracture of femoral neck, right, open Carotid stenosis Anxiety and depression Carotid artery disease Lipohypertrophy due to insulin injection Dyslipidemia Carotid bruit Coronary artery disease Chronic neck pain Debility Cancer Open wound Polymyalgia arteritica Low iron Leg cramps History of edema Cardiology follow-up encounter Prostate cancer Dependent on hemodialysis NPDR (nonproliferative diabetic retinopathy) Nonrheumatic aortic (valve) stenosis History of non-ST elevation myocardial infarction (NSTEMI) End stage renal disease Leukocytosis Edema of left upper arm HFrEF (heart failure with reduced ejection fraction) Acquired neutrophilia Aortic valve stenosis 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 1 diabetes mellitus Chronic neck and back pain Skin mole Fatigue Watery eyes CKD (chronic kidney disease) stage 4, GFR 15-29 ml/min Aortic root dilatation Olecranon bursitis, left elbow Mediastinal mass Type 1 diabetes mellitus with hyperglycemia Olecranon bursitis, right elbow Unintentional weight loss of more than 10 pounds Swelling of right elbow Heart murmur Contact with or suspected exposure to other viral communicable disease Acute bronchitis Insulin dependent diabetes mellitus CKD (chronic kidney disease), stage IV Osteopenia Wears hearing aid Wears glasses Wears dentures Alcohol use Insulin dependent diabetes mellitus Arthritis High cholesterol Back pain Dietary restriction Former smoker Shortness of breath on exertion History of pain when walking History of stress test History of echocardiogram Nicotine dependence, cigarettes, uncomplicated COPD (chronic obstructive pulmonary disease) Episode of syncope Mass of lung REYES (dyspnea on exertion) Wears hearing aid in both ears Hearing loss, left Hearing loss, right Kidney stones Smoker Hypertension Chronic kidney insufficiency Diabetic retinopathy associated with type 1 diabetes mellitus Benign essential hypertension Stage 3 chronic kidney disease due to type 1 diabetes mellitus Diabetic polyneuropathy associated with type 1 diabetes mellitus Essential hypertension Mixed hyperlipidemia Vision problem Prostate disease Osteoarthritis Hearing problem COPD (chronic obstructive pulmonary disease) Cataracts, bilateral Bone fracture Back problem Anemia Bronchitis Family history of hyperlipidemia Family history of hypertension Headache Dyspnea on exertion Hyperlipidemia Nicotine abuse Atherosclerotic heart disease of [place] coronary artery without angina pectoris 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 Sleep apnea Hypertension Home Medications ?Medication ?Instructions ?Recorded ?Last Taken ?Type aspirin 81 mg tablet,delayed 81 mg PO QDAY 06/15/17 03/01/23 History release (Adult Low Dose Aspirin) finasteride 5 mg tablet (Proscar) 5 mg PO DAILY 06/16/17 Unknown History flash glucose scanning reader #2 ea 03/28/22 Unknown Rx (FreeStyle Tani 2 [place]) flash glucose sensor (FreeStyle #2 ea 03/28/22 Unknown Rx Tani 2 Sensor kit) cholecalciferol (vitamin D3) 125 125 mcg PO DAILY 05/05/22 Unknown History mcg (5,000 unit) capsule PureFlow B 2K Dialysis Soln 6 bag perfusion UD ##0 12/12/22 Unknown Rx acetaminophen 325 mg tablet 650 mg (2 x 325 mg) PO Q4H PRN PRN 12/12/22 Unknown Rx Fever, pain 1-01/20 #0 tabs insulin lispro 100 unit/mL See Protocol subcut ACHS 01/14/23 Unknown History subcutaneous pen (Humalog KwikPen (U-100) Insulin) calcium 600 mg (as 1 cap PO DAILY 01/23/23 Unknown History carbonate)-vitamin D3 10 mcg (400 unit) capsule amlodipine 5 mg tablet 5 mg PO DAILY 01/26/23 03/02/23 History insulin glargine 100 unit/mL (3 8 unit subcut QPM DM 01/28/23 Unknown History mL) subcutaneous pen (Lantus Solostar U-100 Insulin) foam bandage 4 X 4 (Mepilex) #5 ea 01/29/23 Unknown Rx vitamins A,C,V-fabk-arnqwa 4,296 1 cap PO DAILY #90 caps 02/27/23 Unknown Rx mcg-226 mg-90 mg capsule (ICaps AREDS) clonidine HCl 0.1 mg tablet 0.1 mg PO BID 01/29/24 Unknown History folic acid 400 mcg tablet 400 mcg PO DAILY 01/29/24 Unknown History furosemide 40 mg tablet 40 mg PO DAILY weight gain 01/29/24 Unknown History gabapentin 300 mg capsule 300 mg PO TID 01/29/24 Unknown History magnesium 250 mg tablet 250 mg PO QDAY 01/29/24 Unknown History pantoprazole 40 mg tablet,delayed 40 mg PO BID 01/29/24 Unknown History release renal multivitamin 1 tab PO DAILY 01/29/24 Unknown History tamsulosin 0.4 mg capsule 0.4 mg PO QDAY 01/29/24 Unknown History atorvastatin 40 mg tablet 40 mg PO QHS 02/24/24 Unknown History metoprolol tartrate 25 mg tablet 25 mg PO DAILY 02/24/24 Unknown History aluminum-mag hydroxide-simethicone 30 ml PO Q6H PRN PRN Gastric 02/28/24 Unknown Rx 400 mg-400 mg-40 mg/5 mL oral susp Burning #0 mL (Mag-Al Plus Extra Strength) apixaban 5 mg tablet (Eliquis) 2.5 mg (1/2 x 5 mg) PO BID 30 days 02/28/24 Unknown Rx #30 tabs ferrous sulfate 325 mg (65 mg 325 mg PO DAILY #30 tabs 02/28/24 Unknown Rx iron) tablet (Iron (ferrous sulfate)) melatonin 3 mg tablet 3 mg PO QHS PRN PRN Insomnia #0 02/28/24 Unknown Rx tabs sertraline 50 mg tablet 50 mg PO DAILY mood 02/29/24 Unknown History bisacodyl 5 mg tablet,delayed 10 mg (2 x 5 mg) PO DAILY #0 tabs 03/02/24 Unknown Rx release sennosides 8.6 mg-docusate sodium 2 tab PO BID #0 tabs 03/02/24 Unknown Rx 50 mg tablet (Stimulant Laxative Plus) mirtazapine 15 mg tablet (Remeron) 3.75 mg (1/4 x 15 mg) PO QHS #30 04/29/24 Unknown Rx tabs Allergy/AdvReac Type Severity Reaction Status Date / Time levofloxacin (From [facility]) Allergy Hives Verified 05/11/24 07:50 vancomycin AdvReac Severe Rash Verified 05/11/24 07:50 Family History Father Diabetes Hypertension Family history of hyperlipidemia Asthma Kidney disease Mother Diabetes Brother Cancer Throat cancer Brother CAD (coronary artery disease) Myocardial infarction, Onset Age: 52 Sister Family history of hyperlipidemia Hypertension Diabetes Unknown Alcoholism Arthritis Depression Diabetes Hypertension Hyperlipidemia Osteoporosis Respiratory disease Pancreatic cancer Other Family history of hypertension Surgical History History of hip surgery S/P arteriovenous (AV) fistula creation Fracture of left patella Wrist fracture, bilateral Fracture of left upper extremity History of colonoscopy (~2013) History of bilateral inguinal hernia repair (~2007) History of hernia repair (~1991) History of hemorrhoidectomy (~2000) stent replacement for right sided kidney stome Social History household members: spouse Smoking Status: Current every day smoker tobacco type: cigarettes Tobacco: How many years used: 50 alcohol intake: never substance use type: does not use caffeine: Yes Type: coffee Number of servings: 2 what type of physical activity do you participate in: none seatbelt use: sometimes do you feel safe at home: Yes ROS Review of Systems ROS Unobtainable: due to encephalopathy Physical Exam Narrative no obvious distress no pallor no icterus no JVD s1s2 no murmurs lungs clear abdomen soft no organomegaly no edema no cyanosis Medical Records Data Medical Nutrition Assessment Dietitian: Malnutrition Criteria Met Start: 05/11/24 15:52 Freq: Status: Active Protocol: Document 05/11/24 16:23 SB (Rec: 05/11/24 16:23 SB [id number]) Nutrition Malnutrition Evidence of Malnutrition Exists Yes Malnutrition (severe): Acute Illness/Injury Evidenced By Suboptimal Energy Intake ( Moderate),Weight Loss (Severe) Clinical Problem Altered Nutrient-Related Laboratory Values Etiology related to endocrine dysfunction/diabetes Signs/Symptoms as evidenced by glucose 952 and >500 Status Active Problem Acute Disease or Injury Related Malnutrition Etiology related to inadequate oral intake Signs/Symptoms as evidenced by PO meeting <50 % of estimated nutrition needs x 2 months and 16% unintentional weight loss x 2 months. Status Active Problem Recommendation Dietitian Recommendations/Changes Recommend advanced diet as to consistent carbohydrate diet. As diet is advanced recommend 240ml PO Nepro TID with meals . Will provide insulin/food education with pt at time of follow-up. Will monitor weight trends. Reviewed and approved by Arlene Guerra GINETTE, SHAWN. Lab / Micro Data 05/11/24 07:50 05/11/24 15:25 Labs: Laboratory Results - last 24 hr 05/11/24 07:50: WBC 6.6, RBC 3.61 L, Hgb 10.7 L, Hct 34.4 L, MCV 95.3 H, MCH 29.6, MCHC 31.1 L, RDW Std Deviation 54.7 H, RDW Coeff of [place] 15.8 H, Plt Count 319, MPV 10.6, Immature Gran % (Auto) 0.500, Neut % (Auto) 88.2 H, Lymph % (Auto) 5.9 L, [place] % (Auto) 4.7, Eos % (Auto) 0.2, Baso % (Auto) 0.5, Absolute Neuts (auto) 5.9, Absolute Lymphs (auto) 0.39 L, Nucleated RBC % 0, Sodium 127 L, Potassium 5.2 H, Chloride 85 L, Carbon Dioxide 22.0, Anion Gap 20 H, BUN 37 H, Creatinine 2.75 H, Estim Creat Clear Calc 17.06, Est GFR (MDRD) Af Amer 29 L, Est GFR (MDRD) Non-Af 24 L, BUN/Creatinine Ratio 13.5, Glucose 895 H*, Serum Osmolality 327 H, Calcium 8.6, Magnesium 2.4, Procalcitonin 0.27 H, Acetone Level SMALL H 05/11/24 07:52: POC Glucose > 500 H* 05/11/24 09:37: POC Glucose > 500 H* 05/11/24 09:41: Sodium 127 L, Potassium 5.2 H, Chloride 90 L, Carbon Dioxide 15.0 L, Anion Gap 23 H, BUN 37 H, Creatinine 2.65 H, Estim Creat Clear Calc 17.70, Est GFR (MDRD) Af Amer 30 L, Est GFR (MDRD) Non-Af 25 L, BUN/Creatinine Ratio 14.0, Glucose 952 H*, Calcium 7.8 L 05/11/24 11:31: POC Glucose > 500 H* 05/11/24 12:10: Sodium 130 L, Potassium 4.5, Chloride 94 L, Carbon Dioxide 14.0 L, Anion Gap 22 H, BUN 40 H, Creatinine 2.96 H, Estim Creat Clear Calc 14.94, Est GFR (MDRD) Af Amer 26 L, Est GFR (MDRD) Non-Af 22 L, BUN/Creatinine Ratio 13.5, Glucose 863 H*, Calcium 8.2 L, B-Natriuretic Peptide 2165.7 H 05/11/24 14:00: Glucose 649 H* 05/11/24 15:25: Sodium 134 L, Potassium 3.9, Chloride 97 L, Carbon Dioxide 23.0, Anion Gap 14, BUN 41 H, Creatinine 2.93 H, Estim Creat Clear Calc 15.09, Est GFR (MDRD) Af Amer 27 L, Est GFR (MDRD) Non-Af 22 L, BUN/Creatinine Ratio 14.0, Glucose 492 H* 05/11/24 15:25: Glucose 492 H*, Calcium 8.3 L Micro: Microbiology 05/11/24 07:55 Mucosa - Nose SARS-CoV-2, Influenza & RSV (PCR) - Final ABG Data ABG results: ABG 05/11/24 08:07 Specimen Type ART Sample Site R Radial pH 7.33 L Bicarbonate Actual 18.3 L Total CO2 19 Base Excess -8 L O2 Saturation 85 L O2 % 28.0 ABG pCO2 34.4 L ABG pO2 52 L Ren Test Positive O2 Delivery Device Cannula Vent Mode Not entered Imaging Radiology Impression Chest X-Ray 05/11/24 08:55 IMPRESSION: A [id number] left pleural effusion is now seen. Moderate bilateral pulmonary infiltrates are seen, predominantly central, most concerning for significant pulmonary edema. Can not exclude an area or areas of pneumonitis, however. No pneumothorax is seen. The cardiomediastinal silhouette is stable, without evidence of cardiomegaly. Reading Location: [id number]
[2024-05-11 17:44] LABS: Bedside Glucose 275 mg/dL (74-106)
--- NOTE | 2024-05-11 18:00 | HP.PCM.HOS_ITS ---
HPI - General General Date of Admission: 05/11/24 Date of Service: 05/11/24 Chief Complaint: Confusion, high blood sugar HPI Narrative DEX VALLE, is a 78 M who presents to the emergency room at [facility] with confusion which was noted today and high blood sugar readings at his home, patient was seen in the emergency room here 2 days ago for elevated blood sugar. Workup in the emergency room included labs which showed an elevated blood sugar at 895, creatinine was elevated 2.75, serum osmolality was elevated at 327, potassium was 5.2, and anion gap was elevated at 20. White blood cell count was 6.6 and hemoglobin was 10.7 Chest x-ray showed a small to moderate left pleural effusion and moderate bilateral pulmonary infiltrates. I discussed his care with his and daughter, they wish the patient to be a DNR CC arrest without intubation, patient will be admitted to ICU and critical care will see the patient as well as nephrology. Patient's last dialysis day was yesterday. [facility] Medical History Insomnia Anorexia Fracture of femoral neck, right, open Carotid stenosis Anxiety and depression Carotid artery disease Lipohypertrophy due to insulin injection Dyslipidemia Carotid bruit Coronary artery disease Chronic neck pain Debility Cancer Open wound Polymyalgia arteritica Low iron Leg cramps History of edema Cardiology follow-up encounter Prostate cancer Dependent on hemodialysis NPDR (nonproliferative diabetic retinopathy) Nonrheumatic aortic (valve) stenosis History of non-ST elevation myocardial infarction (NSTEMI) End stage renal disease Leukocytosis Edema of left upper arm HFrEF (heart failure with reduced ejection fraction) Acquired neutrophilia Aortic valve stenosis 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 1 diabetes mellitus Chronic neck and back pain Skin mole Fatigue Watery eyes CKD (chronic kidney disease) stage 4, GFR 15-29 ml/min Aortic root dilatation Olecranon bursitis, left elbow Mediastinal mass Type 1 diabetes mellitus with hyperglycemia Olecranon bursitis, right elbow Unintentional weight loss of more than 10 pounds Swelling of right elbow Heart murmur Contact with or suspected exposure to other viral communicable disease Acute bronchitis Insulin dependent diabetes mellitus CKD (chronic kidney disease), stage IV Osteopenia Wears hearing aid Wears glasses Wears dentures Alcohol use Insulin dependent diabetes mellitus Arthritis High cholesterol Back pain Dietary restriction Former smoker Shortness of breath on exertion History of pain when walking History of stress test History of echocardiogram Nicotine dependence, cigarettes, uncomplicated COPD (chronic obstructive pulmonary disease) Episode of syncope Mass of lung REYES (dyspnea on exertion) Wears hearing aid in both ears Hearing loss, left Hearing loss, right Kidney stones Smoker Hypertension Chronic kidney insufficiency Diabetic retinopathy associated with type 1 diabetes mellitus Benign essential hypertension Stage 3 chronic kidney disease due to type 1 diabetes mellitus Diabetic polyneuropathy associated with type 1 diabetes mellitus Essential hypertension Mixed hyperlipidemia Vision problem Prostate disease Osteoarthritis Hearing problem COPD (chronic obstructive pulmonary disease) Cataracts, bilateral Bone fracture Back problem Anemia Bronchitis Family history of hyperlipidemia Family history of hypertension Headache Dyspnea on exertion Hyperlipidemia Nicotine abuse Atherosclerotic heart disease of [place] coronary artery without angina pectoris retirement use of drug Sleep apnea Hypertension Home Medications ?Medication ?Instructions ?Recorded ?Last Taken ?Type aspirin 81 mg tablet,delayed 81 mg PO QDAY 06/15/17 03/01/23 History release (Adult Low Dose Aspirin) finasteride 5 mg tablet (Proscar) 5 mg PO DAILY 06/16/17 Unknown History flash glucose scanning reader #2 ea 03/28/22 Unknown Rx (FreeStyle Tani 2 Perry) flash glucose sensor (FreeStyle #2 ea 03/28/22 Unknown Rx Tani 2 Sensor kit) cholecalciferol (vitamin D3) 125 125 mcg PO DAILY 05/05/22 Unknown History mcg (5,000 unit) capsule PureFlow B 2K Dialysis Soln 6 bag perfusion UD ##0 12/12/22 Unknown Rx acetaminophen 325 mg tablet 650 mg (2 x 325 mg) PO Q4H PRN PRN 12/12/22 Unknown Rx Fever, pain 1-01/20 #0 tabs insulin lispro 100 unit/mL See Protocol subcut ACHS 01/14/23 Unknown History subcutaneous pen (Humalog KwikPen (U-100) Insulin) calcium 600 mg (as 1 cap PO DAILY 01/23/23 Unknown History carbonate)-vitamin D3 10 mcg (400 unit) capsule amlodipine 5 mg tablet 5 mg PO DAILY 01/26/23 03/02/23 History insulin glargine 100 unit/mL (3 8 unit subcut QPM DM 01/28/23 Unknown History mL) subcutaneous pen (Lantus Solostar U-100 Insulin) foam bandage 4 X 4 (Mepilex) #5 ea 01/29/23 Unknown Rx vitamins A,C,A-yzpp-zmbqtj 4,296 1 cap PO DAILY #90 caps 02/27/23 Unknown Rx mcg-226 mg-90 mg capsule (ICaps AREDS) clonidine HCl 0.1 mg tablet 0.1 mg PO BID 01/29/24 Unknown History folic acid 400 mcg tablet 400 mcg PO DAILY 01/29/24 Unknown History furosemide 40 mg tablet 40 mg PO DAILY weight gain 01/29/24 Unknown History gabapentin 300 mg capsule 300 mg PO TID 01/29/24 Unknown History magnesium 250 mg tablet 250 mg PO QDAY 01/29/24 Unknown History pantoprazole 40 mg tablet,delayed 40 mg PO BID 01/29/24 Unknown History release renal multivitamin 1 tab PO DAILY 01/29/24 Unknown History tamsulosin 0.4 mg capsule 0.4 mg PO QDAY 01/29/24 Unknown History atorvastatin 40 mg tablet 40 mg PO QHS 02/24/24 Unknown History metoprolol tartrate 25 mg tablet 25 mg PO DAILY 02/24/24 Unknown History aluminum-mag hydroxide-simethicone 30 ml PO Q6H PRN PRN Gastric 02/28/24 Unknown Rx 400 mg-400 mg-40 mg/5 mL oral susp Burning #0 mL (Mag-Al Plus Extra Strength) apixaban 5 mg tablet (Eliquis) 2.5 mg (1/2 x 5 mg) PO BID 30 days 02/28/24 Unknown Rx #30 tabs ferrous sulfate 325 mg (65 mg 325 mg PO DAILY #30 tabs 02/28/24 Unknown Rx iron) tablet (Iron (ferrous sulfate)) melatonin 3 mg tablet 3 mg PO QHS PRN PRN Insomnia #0 02/28/24 Unknown Rx tabs sertraline 50 mg tablet 50 mg PO DAILY mood 02/29/24 Unknown History bisacodyl 5 mg tablet,delayed 10 mg (2 x 5 mg) PO DAILY #0 tabs 03/02/24 Unknown Rx release sennosides 8.6 mg-docusate sodium 2 tab PO BID #0 tabs 03/02/24 Unknown Rx 50 mg tablet (Stimulant Laxative Plus) mirtazapine 15 mg tablet (Remeron) 3.75 mg (1/4 x 15 mg) PO QHS #30 04/29/24 Unknown Rx tabs Allergy/AdvReac Type Severity Reaction Status Date / Time levofloxacin (From [facility]) Allergy Hives Verified 05/11/24 07:50 vancomycin AdvReac Severe Rash Verified 05/11/24 07:50 Family History Father Diabetes Hypertension Family history of hyperlipidemia Asthma Kidney disease Mother Diabetes Brother Cancer Throat cancer Brother CAD (coronary artery disease) Myocardial infarction, Onset Age: 52 Sister Family history of hyperlipidemia Hypertension Diabetes Unknown Alcoholism Arthritis Depression Diabetes Hypertension Hyperlipidemia Osteoporosis Respiratory disease Pancreatic cancer Other Family history of hypertension Surgical History History of hip surgery S/P arteriovenous (AV) fistula creation Fracture of left patella Wrist fracture, bilateral Fracture of left upper extremity History of colonoscopy (~2013) History of bilateral inguinal hernia repair (~2007) History of hernia repair (~1991) History of hemorrhoidectomy (~2000) stent replacement for right sided kidney stome Social History household members: spouse Smoking Status: Current every day smoker tobacco type: cigarettes Tobacco: How many years used: 50 alcohol intake: never substance use type: does not use caffeine: Yes Type: coffee Number of servings: 2 what type of physical activity do you participate in: none seatbelt use: sometimes do you feel safe at home: Yes ROS ROS Narrative Review of systems was unobtainable due to encephalopathy Review of Systems ROS Unobtainable: due to encephalopathy Vital Signs Vital Signs Vital Signs: 05/11/24 07:44 05/11/24 08:43 05/11/24 08:44 Temperature 98.6 F 97.4 F L Temperature Source Axillary Temporal Pulse Rate 109 H 117 H Respiratory Rate 24 H 34 H Respiratory Effort Short of Breath Labored Respiratory Depth Respiratory Pattern Tachypnea Blood Pressure 189/78 H 187/69 H Blood Pressure Mean 115 108 Blood Pressure Source Blood Pressure Position Blood Pressure Location Pulse Ox 84 90 Oxygen Delivery Method Room Air Nasal Cannula Oxygen Flow Rate (L/min) 4 Fraction of Inspired Oxygen (FIO2) 05/11/24 09:25 05/11/24 09:28 05/11/24 09:57 Temperature 97.6 F L 97.8 F Temperature Source Axillary Pulse Rate 128 H 128 H 131 H Respiratory Rate 32 H 34 H 30 H Respiratory Effort Respiratory Depth Respiratory Pattern Tachypnea Blood Pressure 201/84 H 161/85 H Blood Pressure Mean 123 110 Blood Pressure Source Blood Pressure Position Blood Pressure Location Pulse Ox 92 82 Oxygen Delivery Method Nasal Cannula Oxygen Flow Rate (L/min) 5 Fraction of Inspired Oxygen (FIO2) 05/11/24 10:03 05/11/24 10:13 05/11/24 11:00 Temperature 97.8 F 98.2 F Temperature Source Temporal Temporal Pulse Rate 127 H 122 H 119 H Respiratory Rate 29 H 30 H 25 H Respiratory Effort Respiratory Depth Respiratory Pattern Tachypnea Blood Pressure 148/72 H 182/93 H Blood Pressure Mean 97 122 Blood Pressure Source Monitor Blood Pressure Position Semi-Fowlers Blood Pressure Location Right Arm Pulse Ox 82 97 93 Oxygen Delivery Method Nasal Cannula Nasal Cannula Oxygen Flow Rate (L/min) 5 8 Fraction of Inspired Oxygen (FIO2) 60 05/11/24 11:15 05/11/24 11:30 05/11/24 11:30 Temperature Temperature Source Pulse Rate 112 H 105 H Respiratory Rate 25 H 22 H Respiratory Effort Normal Respiratory Depth Shallow Respiratory Pattern Tachypnea Blood Pressure 168/73 H 168/70 H Blood Pressure Mean 104 102 Blood Pressure Source Monitor Monitor Blood Pressure Position Semi-Fowlers Semi-Fowlers Blood Pressure Location Right Arm Right Arm Pulse Ox 93 90 Oxygen Delivery Method Nasal Cannula High Flow High Flow Oxygen Flow Rate (L/min) 8 8 8 Fraction of Inspired Oxygen (FIO2) 05/11/24 11:45 05/11/24 12:00 05/11/24 12:00 Temperature 98.2 F Temperature Source Temporal Pulse Rate 106 H 103 H 103 H Respiratory Rate 22 H 21 H 21 H Respiratory Effort Respiratory Depth Respiratory Pattern Blood Pressure 177/77 H 173/72 H 173/72 H Blood Pressure Mean 110 105 105 Blood Pressure Source Monitor Monitor Blood Pressure Position Semi-Fowlers Semi-Fowlers Blood Pressure Location Right Arm Right Arm Pulse Ox 90 91 91 Oxygen Delivery Method High Flow High Flow High Flow Oxygen Flow Rate (L/min) 8 8 8 Fraction of Inspired Oxygen (FIO2) 05/11/24 12:02 05/11/24 13:00 05/11/24 13:58 Temperature Temperature Source Pulse Rate 98 99 Respiratory Rate 23 H 24 H Respiratory Effort Respiratory Depth Respiratory Pattern Tachypnea Blood Pressure 174/74 H Blood Pressure Mean 107 Blood Pressure Source Monitor Blood Pressure Position Semi-Fowlers Blood Pressure Location Right Arm Pulse Ox 96 Oxygen Delivery Method Nasal Cannula High Flow Oxygen Flow Rate (L/min) 6 8 Fraction of Inspired Oxygen (FIO2) 05/11/24 13:58 05/11/24 14:00 05/11/24 15:00 Temperature Temperature Source Pulse Rate 99 93 Respiratory Rate 25 H 21 H Respiratory Effort Respiratory Depth Respiratory Pattern Blood Pressure 176/76 H 163/70 H Blood Pressure Mean 109 101 Blood Pressure Source Monitor Monitor Blood Pressure Position Semi-Fowlers Semi-Fowlers Blood Pressure Location Right Arm Right Arm Pulse Ox 95 94 93 Oxygen Delivery Method Nasal Cannula High Flow High Flow Oxygen Flow Rate (L/min) 6 8 8 Fraction of Inspired Oxygen (FIO2) 05/11/24 16:00 05/11/24 16:00 Temperature 98.2 F Temperature Source Temporal Pulse Rate 92 Respiratory Rate 20 H Respiratory Effort Normal Respiratory Depth Shallow Respiratory Pattern Tachypnea Blood Pressure 174/75 H Blood Pressure Mean 108 Blood Pressure Source Monitor Blood Pressure Position Semi-Fowlers Blood Pressure Location Right Arm Pulse Ox 95 Oxygen Delivery Method High Flow High Flow Oxygen Flow Rate (L/min) 8 8 Fraction of Inspired Oxygen (FIO2) Weight Weight: 53.07 kg Body Mass Index (BMI) 17.8 Physical Exam Const alert Constitutional Narrative: Patient is alert and confused, he appears cachectic General Appearance: well developed Orientation / Consciousness: awake and confused HEENT normocephalic and head/scalp atraumatic HEENT Narrative: Dry mucous membranes Eyes PERRL, EOMs intact bilaterally and conjunctivae normal Neck supple, no JVD and thyroid normal General: trachea midline Resp normal respiratory effort, no retractions and no use of accessory muscles Resp Narrative: Distant breath sounds are noted bilaterally Auscultation: Negative for rales, rhonchi or wheezes Cardio regular rate, regular rhythm, S1 normal heart sound, S2 normal heart sound, no murmurs, no rub and no gallops GI normal to inspection, nondistended, normoactive bowel sounds, soft to palpation, non-tender and non-distended Extremity no clubbing, cyanosis or edema Skin no rashes or lesions noted General Skin Exam: no breakdown Neuro CN's II-XII intact bilaterally and moves all extremities Neuro Narrative: Patient is confused Sensorium / Orientation: awake and alert Psych Psych Narrative: Patient is confused Results Medical Records Data Medical Nutrition Assessment Dietitian: Malnutrition Criteria Met Start: 05/11/24 15:52 Freq: Status: Active Protocol: Document 05/11/24 16:23 SB (Rec: 05/11/24 16:23 SB [id number]) Nutrition Malnutrition Evidence of Malnutrition Exists Yes Malnutrition (severe): Acute Illness/Injury Evidenced By Suboptimal Energy Intake ( Moderate),Weight Loss (Severe) Clinical Problem Altered Nutrient-Related Laboratory Values Etiology related to endocrine dysfunction/diabetes Signs/Symptoms as evidenced by glucose 952 and >500 Status Active Problem Acute Disease or Injury Related Malnutrition Etiology related to inadequate oral intake Signs/Symptoms as evidenced by PO meeting <50 % of estimated nutrition needs x 2 months and 16% unintentional weight loss x 2 months. Status Active Problem Recommendation Dietitian Recommendations/Changes Recommend advanced diet as to consistent carbohydrate diet. As diet is advanced recommend 240ml PO Nepro TID with meals . Will provide insulin/food education with pt at time of follow-up. Will monitor weight trends. Reviewed and approved by Arlene Guerra RDN, LD. Lab / Micro Data 05/11/24 07:50 05/11/24 15:25 Labs: Laboratory Results - last 24 hr 05/11/24 07:50: WBC 6.6, RBC 3.61 L, Hgb 10.7 L, Hct 34.4 L, MCV 95.3 H, MCH 29.6, MCHC 31.1 L, RDW Std Deviation 54.7 H, RDW Coeff of [place] 15.8 H, Plt Count 319, MPV 10.6, Immature Gran % (Auto) 0.500, Neut % (Auto) 88.2 H, Lymph % (Auto) 5.9 L, [place] % (Auto) 4.7, Eos % (Auto) 0.2, Baso % (Auto) 0.5, Absolute Neuts (auto) 5.9, Absolute Lymphs (auto) 0.39 L, Nucleated RBC % 0, Sodium 127 L , Potassium 5.2 H, Chloride 85 L, Carbon Dioxide 22.0, Anion Gap 20 H, BUN 37 H, Creatinine 2.75 H, Estim Creat Clear Calc 17.06, Est GFR (MDRD) Af Amer 29 L, E st GFR (MDRD) Non-Af 24 L, BUN/Creatinine Ratio 13.5, Glucose 895 H*, Serum Osmolality 327 H, Calcium 8.6, Magnesium 2.4, Procalcitonin 0.27 H, Acetone Level SMALL H 05/11/24 07:52: POC Glucose > 500 H* 05/11/24 09:37: POC Glucose > 500 H* 05/11/24 09:41: Sodium 127 L, Potassium 5.2 H, Chloride 90 L, Carbon Dioxide 15.0 L, Anion Gap 23 H, BUN 37 H, Creatinine 2.65 H, Estim Creat Clear Calc 17.70, Est GFR (MDRD) Af Amer 30 L, Est GFR (MDRD) Non-Af 25 L, BUN/Creatinine Ratio 14.0, Glucose 952 H*, Calcium 7.8 L 05/11/24 11:31: POC Glucose > 500 H* 05/11/24 12:10: Sodium 130 L, Potassium 4.5, Chloride 94 L, Carbon Dioxide 14.0 L, Anion Gap 22 H, BUN 40 H, Creatinine 2.96 H, Estim Creat Clear Calc 14.94, E st GFR (MDRD) Af Amer 26 L, Est GFR (MDRD) Non-Af 22 L, BUN/Creatinine Ratio 13.5, Glucose 863 H*, Calcium 8.2 L, B-Natriuretic Peptide 2165.7 H 05/11/24 14:00: Glucose 649 H* 05/11/24 15:25: Sodium 134 L, Potassium 3.9, Chloride 97 L, Carbon Dioxide 23.0, Anion Gap 14, BUN 41 H, Creatinine 2.93 H, Estim Creat Clear Calc 15.09, Est GFR (MDRD) Af Amer 27 L, Est GFR (MDRD) Non-Af 22 L, BUN/Creatinine Ratio 14.0, G lucose 492 H* 05/11/24 15:25: Glucose 492 H*, Calcium 8.3 L 05/11/24 17:21: POC Glucose 275 H Micro: Microbiology 05/11/24 14:16 Mucosa - Nasopharyngeal Respiratory Panel (PCR) - Final 05/11/24 07:55 Mucosa - Nose SARS-CoV-2, Influenza & RSV (PCR) - Final ABG Data ABG results: ABG 05/11/24 08:07 Specimen Type ART Sample Site R Radial pH 7.33 L Bicarbonate Actual 18.3 L Total CO2 19 Base Excess -8 L O2 Saturation 85 L O2 % 28.0 ABG pCO2 34.4 L ABG pO2 52 L Ren Test Positive O2 Delivery Device Cannula Vent Mode Not entered Imaging Radiology Impression Chest X-Ray 05/11/24 08:55 IMPRESSION: A [id number] left pleural effusion is now seen. Moderate bilateral pulmonary infiltrates are seen, predominantly central, most concerning for significant pulmonary edema. Can not exclude an area or areas of pneumonitis, however. No pneumothorax is seen. The cardiomediastinal silhouette is stable, without evidence of cardiomegaly. Reading Location: [id number] Assessment & Plan Assessment/Plan (1) Acute encephalopathy: PLAN: Plan 1. Diabetic ketoacidosis-patient will be admitted to ICU, he will be kept on insulin drip and blood sugars and electrolytes will be monitored, critical care will see the patient as well as nephrology. #2 bilateral [id number], patient will continue Zosyn and Zithromax, pulse ox will be monitored, urine test for Legionella and strep were ordered #3 acute hypoxic respiratory failure-patient was on BiPAP when transferred from the emergency room to the ICU today, oxygen will be weaned if possible #4 end-stage renal disease-requiring chronic dialysis-nephrology will see the patient in consultation #5 metabolic encephalopathy-complicates care, management, recovery, and prognosis, supportive care will continue, oral meds are being held at this time Total clinical time spent by myself addressing patient's medical issues, reviewing all of his data, and collaborating with patient's care team: 75 minutes Charges/Coding Visit Charges Inpatient E&M: [id number] Init Hosp L3
[2024-05-11 18:25] LABS: Bedside Glucose 378 mg/dL (74-106)
[2024-05-11 18:38] LABS: Bedside Glucose 226 mg/dL (74-106)
[2024-05-11] MEDS: Dext 5%-0.45% NS 1,000 ML 150 ML IV (18:46)
[2024-05-11 19:14] LABS: Bacteria 0 SEEN /hpf (None Seen); Mucous, Urine 0 SEEN /hpf (<or=2+); Squamous Epithelial Cells - UA 0 SEEN /hpf (0-5); White Blood Cells 0 SEEN /hpf (0-5)
[2024-05-11 19:28] LABS: Color, Urine Yellow (Yellow); Glucose, Dipstick 1000 mg/dl (Normal); Ketone-Dipstick 15 mg/dl (Negative); Leukocyte Esterase-Dipstick Negative /ul (Negative); Nitrite-Dipstick Negative (Negative); Occult Blood-Urine 25 /ul (Negative); Protein-Dipstick 500 mg/dl (Negative); Specific Gravity, Urine 1.015 (1.002-1.030); Urine Bilirubin Dipstick Negative (Negative); Urine Clarity Clear (Clear); Urine Urobilinogen Normal (Normal)
[2024-05-11 19:39] LABS: Red Blood Cells-Urine 0-5 SEEN /hpf (0-5)
[2024-05-11 20:03] LABS: Bedside Glucose 191 mg/dL (74-106)
[2024-05-11 20:32] LABS: Bedside Glucose 181 mg/dL (74-106)
[2024-05-11 20:51] LABS: Anion Gap 9 (5-15); BUN 39 mg/dL (7-18); BUN/Creat Ratio 14.5 RATIO (10-20); Calcium,Total 7.6 mg/dL (8.5-10.1); Chloride 99 mmol/L (98-107); Creatinine, Serum 2.69 mg/dL (0.70-1.30); EST Glomerular Filtration Rate 24 mL/min (>60); Est Glom Filt Rate - Afr Amer 30 mL/min (>60); Estimated Creatinine Clearance 16.44 ml/min; Glucose 455 mg/dL (74-106); Potassium 3.3 mmol/L (3.5-5.1); Sodium Level 136 mmol/L (136-145)
[2024-05-11 21:26] LABS: Bedside Glucose 169 mg/dL (74-106)
[2024-05-11] MEDS: Heparin Injection (Vial) 5,000 UNIT/ML VIAL 5000 UNIT SC (21:42)
[2024-05-11 22:20] LABS: Bedside Glucose 194 mg/dL (74-106)
[2024-05-11] MEDS: Potassium Chloride 10mEq/100mL 10 MEQ/100 ML IV.SOLN. 100 MEQ IV BOLUS ×2 (22:29→23:25)
[2024-05-11 23:19] LABS: Bedside Glucose 186 mg/dL (74-106)
[2024-05-12] VITALS (32 sets, daily range): BP systolic 95–201; BP diastolic 67–99; PULSE 72–122; RESP 14–22; TEMP 36.3–37.3; O2SAT 93–100; BMI 18.5; BMI 18.0
[2024-05-12 00:18] LABS: Bedside Glucose 231 mg/dL (74-106)
[2024-05-12] MEDS: Dext 5%-0.45% NS 1,000 ML 150 ML IV (01:00)
[2024-05-12 01:15] LABS: Bedside Glucose 158 mg/dL (74-106)
[2024-05-12 01:39] LABS: Absolute Lymphocyte Count 0.84 X10^3/uL (0.83-4.51); Absolute Neutrophil Count 7.9 X10^3/uL (2.0-7.7); Basophil# 0.04 X10^3/uL; Basophil% 0.4 % (0-1); Eosinophil# 0.09 X10^3/uL; Eosinophils% 0.9 % (0-5); Hematocrit 28.1 % (40-54); Hemoglobin 9.5 g/dL (13.0-16.5); Lymphocyte # 0.84 X10^3/ul (0.83-4.51); Lymphocyte % 8.7 % (19-41); Mean Corp Hgb Conc 33.8 g/dL (32-36); Mean Corpuscular Hgb 30.2 pg (27.0-32.0); Mean Corpuscular Volume 89.2 fL (80-94); Mean Platelet Vol. 9.9 fl (6.2-12.0); Monocyte# 0.82 X10^3/uL; Monocyte% 8.5 % (0-10); NRBC Flagged by Analyzer 0 % (0-5); Neutrophil # 7.88 X10^3/uL (2.7-7.7); Neutrophil % 81.2 % (47-70); Platelet Count 310 K/mm3 (150-450); RBC Distribution Width CV 15.8 % (11.6-14.6); RBC Distribution Width SD 51.1 fl (35.1-43.9); Red Blood Count 3.15 M/mm3 (4.6-6.2); White Blood Count 9.7 K/mm3 (4.4-11.0)
[2024-05-12 02:16] LABS: Bedside Glucose 147 mg/dL (74-106)
[2024-05-12] MEDS: Ipratropium/Albuterol Sulfate 3 ML AMPUL.NEB INHALATION ×3 (02:17→11:50)
[2024-05-12 02:21] LABS: Anion Gap 8 (5-15); BUN 41 mg/dL (7-18); BUN/Creat Ratio 14.6 RATIO (10-20); Calcium,Total 8.3 mg/dL (8.5-10.1); Chloride 102 mmol/L (98-107); EST Glomerular Filtration Rate 23 mL/min (>60); Est Glom Filt Rate - Afr Amer 28 mL/min (>60); Estimated Creatinine Clearance 15.79 ml/min; Glucose 180 mg/dL (74-106); Potassium 3.7 mmol/L (3.5-5.1); Sodium Level 136 mmol/L (136-145)
[2024-05-12 03:16] LABS: Bedside Glucose 179 mg/dL (74-106)
[2024-05-12] MEDS: Insulin Lispro 100 UNIT in 0.9% Normal Saline (100mL Bag) 99 ML CONT INF (03:25)
[2024-05-12 06:32] LABS: Bedside Glucose 178 mg/dL (74-106)
[2024-05-12 06:32] LABS: Bedside Glucose 209 mg/dL (74-106)
[2024-05-12 06:32] LABS: Bedside Glucose 178 mg/dL (74-106)
[2024-05-12 07:14] LABS: Bedside Glucose 159 mg/dL (74-106)
--- NOTE | 2024-05-12 08:06 | PCM.PN.INT ---
Assessment & Plan Assessment/Plan (1) DKA (diabetic ketoacidoses): QUALIFIERS: Diabetes mellitus type: type 1 Diabetes mellitus complication detail: without coma Qualified Code(s): E10.10 - Type 1 diabetes mellitus with ketoacidosis without coma PLAN: Plan RECOMMENDATIONS: 1. Start basal and sliding scale insulin coverage. 2. Wean supplemental oxygen to maintain saturations at or above 90%. 3. Empiric antimicrobials. 4. Continue appropriate DVT prophylaxis. 5. Ongoing dialysis support per nephrology recommendations. 6. Encourage incentive spirometer use and mobilize patient as tolerated. 7. The patient is medically stable for transfer out of the intensive care unit. Will sign off at this time. IMPRESSIONS: 1. Diabetic ketoacidosis The patient presented to the hospital with altered mental status and hyperglycemia. He has a known history of insulin-dependent diabetes mellitus. With supplemental IV fluids and continuous insulin infusion, the patient's DKA has resolved. Recommend initiation of basal and sliding scale insulin coverage at this time. 2. Acute hypoxemic respiratory failure The patient's chest imaging is most concerning for questionable pulmonary edema. However, it would be reasonable to continue empiric antibiotics to cover for possible pneumonia, pending infectious workup. If cultures remain negative tomorrow, antibiotics can be likely discontinued. Continue to wean supplemental oxygen as tolerated. 3. End-stage renal disease on hemodialysis Nephrology is following to assist with hemodialysis needs. 4. History of mild COPD/anemia/coronary artery disease/paroxysmal atrial fibrillation/moderate aortic stenosis Complicates care, management, recovery and prognosis. Continue supportive measures as noted above. Recommend physical therapy evaluation. This note was generated with [employer] dictation software. It may contain incorrect words, spelling, and punctuation that were not noted in checking the note before signing. Subjective Subjective The patient was seen and examined at the bedside this morning. Events from the last 24 hours have been reviewed. The patient is currently afebrile, hemodynamically stable and maintaining appropriate oxygen saturations on 2 L/min via nasal cannula. The patient is currently receiving hemodialysis. He is currently documented to be overall net +4 L for the hospitalization. White blood cell count is normal with a hemoglobin of 9.5 g/dL and platelet count of 310,000. The patient's DKA has resolved. Glucose was noted to be 180 this morning. Objective Data Objective Data The patient's most recent lab work, culture data and imaging studies have all been personally reviewed. Infectious workup has been unrevealing to date. Vital Signs: Vital Signs Temp Pulse Resp BP Pulse Ox O2 Del Method O2 Flow Rate 97.4 F L 77 20 H 171/77 H 97 Nasal Cannula 3 05/12/24 07:45 05/12/24 07:45 05/12/24 07:45 05/12/24 07:45 05/12/24 07:45 05/12/24 07:45 05/12/24 07:45 FiO2 60 05/11/24 10:13 Oxygen Flow Rate (L/min) 3 Oxygen Delivery Method Nasal Cannula Weight: 121 lb 11.123 oz Body Mass Index (BMI) 18.5 Intake & Output: Intake and Output for Last 24 Hours 05/10/24 05/11/24 05/12/24 23:59 23:59 23:59 Intake Total 2437.20 / 2437.90 1088.90 / 1088.90 Output Total 350 / 350 Balance 2437.20 / 2087.90 738.90 / 738.90 Medical Nutrition Assessment Dietitian: Malnutrition Criteria Met Start: 05/11/24 15:52 Freq: Status: Active Protocol: Document 05/11/24 16:23 SB (Rec: 05/11/24 16:23 SB [id number]) Nutrition Malnutrition Evidence of Yes Malnutrition Exists Malnutrition (severe Acute Illness/Injury ): Evidenced By Suboptimal Energy Intake (Moderate),Weight Loss (Severe ) Clinical Problem Altered Nutrient-Related Laboratory Values Etiology related to endocrine dysfunction/diabetes Signs/Symptoms as evidenced by glucose 952 and >500 Status Active Problem Acute Disease or Injury Related Malnutrition Etiology related to inadequate oral intake Signs/Symptoms as evidenced by PO meeting <50% of estimated nutrition needs x 2 months and 16% unintentional weight loss x 2 months. Status Active Problem Recommendation Dietitian Recommend advanced diet as to consistent carbohydrate Recommendations/ diet. Changes As diet is advanced recommend 240ml PO Nepro TID with meals. Will provide insulin/food education with pt at time of follow-up. Will monitor weight trends. Reviewed and approved by Arlene Guerra RDN, [facility]. Lab / Micro Data Attestation: I reviewed the patient's lab results. 05/12/24 01:30 05/12/24 01:30 Labs: Laboratory Results - last 24 hr 05/11/24 07:50: Sodium 127 L, Potassium 5.2 H, Chloride 85 L, Carbon Dioxide 22.0, Anion Gap 20 H, BUN 37 H, Creatinine 2.75 H, Estim Creat Clear Calc 17.06, Est GFR (MDRD) Af Amer 29 L, Est GFR (MDRD) Non-Af 24 L, BUN/Creatinine Ratio 13.5, Glucose 895 H*, Serum Osmolality 327 H, Calcium 8.6, Magnesium 2.4, Procalcitonin 0.27 H, Acetone Level SMALL H 05/11/24 07:52: POC Glucose > 500 H* 05/11/24 09:37: POC Glucose > 500 H* 05/11/24 09:41: Sodium 127 L, Potassium 5.2 H, Chloride 90 L, Carbon Dioxide 15.0 L, Anion Gap 23 H, BUN 37 H, Creatinine 2.65 H, Estim Creat Clear Calc 17.70, Est GFR (MDRD) Af Amer 30 L, Est GFR (MDRD) Non-Af 25 L, BUN/Creatinine Ratio 14.0, Glucose 952 H*, Calcium 7.8 L 05/11/24 11:31: POC Glucose > 500 H* 05/11/24 12:10: Sodium 130 L, Potassium 4.5, Chloride 94 L, Carbon Dioxide 14.0 L, Anion Gap 22 H, BUN 40 H, Creatinine 2.96 H, Estim Creat Clear Calc 14.94, Est GFR (MDRD) Af Amer 26 L, Est GFR (MDRD) Non-Af 22 L, BUN/Creatinine Ratio 13.5, Glucose 863 H*, Calcium 8.2 L, B-Natriuretic Peptide 2165.7 H 05/11/24 14:00: Glucose 649 H* 05/11/24 15:25: Sodium 134 L, Potassium 3.9, Chloride 97 L, Carbon Dioxide 23.0, Anion Gap 14, BUN 41 H, Creatinine 2.93 H, Estim Creat Clear Calc 15.09, Est GFR (MDRD) Af Amer 27 L, Est GFR (MDRD) Non-Af 22 L, BUN/Creatinine Ratio 14.0, Glucose 492 H* 05/11/24 15:25: Glucose 492 H*, Calcium 8.3 L 05/11/24 16:16: POC Glucose 378 H 05/11/24 17:21: POC Glucose 275 H 05/11/24 18:12: POC Glucose 226 H 05/11/24 19:00: Urine Color Yellow, Urine Clarity Clear, Urine pH 6.0, Ur Specific [place] 1.015, Urine Protein 500 H, Urine Glucose (UA) 1000 H, Urine Ketones 15 H, Urine Occult Blood 25 H, Urine Nitrite Negative, Urine Bilirubin Negative, Urine Urobilinogen Normal, Ur Leukocyte Esterase Negative, Urine RBC 0-5 SEEN, Urine WBC 0 SEEN, Ur Squamous Epith Cells 0 SEEN, Urine Bacteria 0 SEEN, Urine Mucus 0 SEEN 05/11/24 19:01: POC Glucose 191 H 05/11/24 20:08: POC Glucose 181 H 05/11/24 20:10: Sodium 136, Potassium 3.3 L, Chloride 99, Carbon Dioxide 28.0, Anion Gap 9, BUN 39 H, Creatinine 2.69 H, Estim Creat Clear Calc 16.44, Est GFR (MDRD) Af Amer 30 L, Est GFR (MDRD) Non-Af 24 L, BUN/Creatinine Ratio 14.5, Glucose 455 H*, Calcium 7.6 L 05/11/24 20:57: POC Glucose 169 H 05/11/24 22:00: POC Glucose 194 H 05/11/24 22:59: POC Glucose 186 H 05/11/24 23:59: POC Glucose 231 H 05/12/24 00:55: POC Glucose 158 H 05/12/24 01:30: WBC 9.7, RBC 3.15 L, Hgb 9.5 L, Hct 28.1 L, MCV 89.2 D, MCH 30.2, MCHC 33.8 D, RDW Std Deviation 51.1 H, RDW Coeff of Russell 15.8 H, Plt Count 310, MPV 9.9, Immature Gran % (Auto) 0.300, Neut % (Auto) 81.2 H, Lymph % (Auto) 8.7 L, [place] % (Auto) 8.5, Eos % (Auto) 0.9, Baso % (Auto) 0.4, Absolute Neuts (auto) 7.9 H, Absolute Lymphs (auto) 0.84, Nucleated RBC % 0, Sodium 136, Potassium 3.7, Chloride 102, Carbon Dioxide 26.0, Anion Gap 8, BUN 41 H, Creatinine 2.80 H, Estim Creat Clear Calc 15.79, Est GFR (MDRD) Af Amer 28 L, Est GFR (MDRD) Non-Af 23 L, BUN/Creatinine Ratio 14.6, Glucose 180 H, Calcium 8.3 L 05/12/24 01:56: POC Glucose 147 H 05/12/24 02:58: POC Glucose 179 H 05/12/24 03:58: POC Glucose 178 H 05/12/24 05:01: POC Glucose 209 H 05/12/24 05:57: POC Glucose 178 H 05/12/24 06:57: POC Glucose 159 H Micro: Microbiology 05/11/24 19:00 Urine, Random Legionella Antigen - Final 05/11/24 19:00 Urine, Random Streptococcus pneumoniae Antigen (M - Final 05/11/24 14:16 Mucosa - Nasopharyngeal Respiratory Panel (PCR) - Final 05/11/24 07:55 Mucosa - Nose SARS-CoV-2, Influenza & RSV (PCR) - Final ABG Data ABG results: ABG 05/11/24 08:07 Specimen Type ART Sample Site R Radial pH 7.33 L Bicarbonate Actual 18.3 L Total CO2 19 Base Excess -8 L O2 Saturation 85 L O2 % 28.0 ABG pCO2 34.4 L ABG pO2 52 L Ren Test Positive O2 Delivery Device Cannula Vent Mode Not entered Radiography Diagnostic Testing: Radiology Impression Chest X-Ray 05/11/24 08:55 IMPRESSION: A [id number] left pleural effusion is now seen. Moderate bilateral pulmonary infiltrates are seen, predominantly central, most concerning for significant pulmonary edema. Can not exclude an area or areas of pneumonitis, however. No pneumothorax is seen. The cardiomediastinal silhouette is stable, without evidence of cardiomegaly. Reading Location: [address] Physical Exam Const alert and no apparent distress General Appearance: cooperative HEENT normocephalic, head/scalp atraumatic and moist oral mucous membranes HEENT Narrative: Dry mucous membranes Eyes EOMs intact bilaterally, conjunctivae normal and no scleral icterus Neck supple General: trachea midline Chest inspection of chest normal Resp normal respiratory effort Auscultation: diminished lung sounds; Negative for rales, rhonchi or wheezes Cardio regular rate, regular rhythm, S1 normal heart sound and S2 normal heart sound GI normal to inspection, nondistended, normoactive bowel sounds Extremity no clubbing, cyanosis or edema Skin no rashes or lesions noted Neuro CN's II-XII intact bilaterally, moves all extremities and no focal motor deficits Psych cooperative and affect normal Charges/Coding Visit Charges Inpatient E&M: 92792 Subs Hosp L2
[2024-05-12] MEDS: PureFlow B 3K Dialysis Soln 1 BAG 6 BAG PF (08:40)
[2024-05-12] MEDS: 0.9% Saline Lock 10 ML Syringe IV (08:40)
[2024-05-12] MEDS: 0.9% Normal Saline 1,000 ML IV.SOLN. 1000 ML OPERA.SITE (08:40)
--- NOTE | 2024-05-12 11:25 | PN.RENAL_ITS ---
Subjective Subjective Alert, awake today. Mental status is close to baseline. at bedside today, discussed with her. Has not checked blood glucose at home recently. Has been somewhat sick for the last 1 week or so. No fevers, chills. Objective Data Objective Data Vital Signs: Vital Signs Temp Pulse Resp BP Pulse Ox O2 Del Method O2 Flow Rate 97.4 F L 105 H 18 176/72 H 97 Nasal Cannula 2 05/12/24 10:00 05/12/24 10:45 05/12/24 10:45 05/12/24 10:45 05/12/24 10:45 05/12/24 10:45 05/12/24 10:15 FiO2 60 05/11/24 10:13 Oxygen Flow Rate (L/min) 2 Oxygen Delivery Method Nasal Cannula Weight: 53.7 kg Body Mass Index (BMI) 18.0 Intake & Output: Intake and Output for Last 24 Hours 05/10/24 05/11/24 05/12/24 23:59 23:59 23:59 Intake Total 2437.20 / 2437.90 2091.70 / 2091.70 Output Total 2180 / 2180 Balance 2437.20 / 2087.90 -88.30 / -88.30 Medical Nutrition Assessment Dietitian: Malnutrition Criteria Met Start: 05/11/24 15:52 Freq: Status: Active Protocol: Document 05/11/24 16:23 SB (Rec: 05/11/24 16:23 SB [id number]) Nutrition Malnutrition Evidence of Yes Malnutrition Exists Malnutrition (severe Acute Illness/Injury ): Evidenced By Suboptimal Energy Intake (Moderate),Weight Loss (Severe ) Clinical Problem Altered Nutrient-Related Laboratory Values Etiology related to endocrine dysfunction/diabetes Signs/Symptoms as evidenced by glucose 952 and >500 Status Active Problem Acute Disease or Injury Related Malnutrition Etiology related to inadequate oral intake Signs/Symptoms as evidenced by PO meeting <50% of estimated nutrition needs x 2 months and 16% unintentional weight loss x 2 months. Status Active Problem Recommendation Dietitian Recommend advanced diet as to consistent carbohydrate Recommendations/ diet. Changes As diet is advanced recommend 240ml PO Nepro TID with meals. Will provide insulin/food education with pt at time of follow-up. Will monitor weight trends. Reviewed and approved by Arlene Guerra, GINETTE, [facility]. Lab / Micro Data 05/12/24 01:30 01/30/25 01:30 Labs: Laboratory Results - last 24 hr 05/11/24 07:50: Serum Osmolality 327 H, Procalcitonin 0.27 H 05/11/24 11:31: POC Glucose > 500 H* 05/11/24 12:10: Sodium 130 L, Potassium 4.5, Chloride 94 L, Carbon Dioxide 14.0 L, Anion Gap 22 H, BUN 40 H, Creatinine 2.96 H, Estim Creat Clear Calc 14.94, E st GFR (MDRD) Af Amer 26 L, Est GFR (MDRD) Non-Af 22 L, BUN/Creatinine Ratio 13.5, Glucose 863 H*, Calcium 8.2 L, B-Natriuretic Peptide 2165.7 H 05/11/24 14:00: Glucose 649 H* 05/11/24 15:25: Sodium 134 L, Potassium 3.9, Chloride 97 L, Carbon Dioxide 23.0, Anion Gap 14, BUN 41 H, Creatinine 2.93 H, Estim Creat Clear Calc 15.09, Est GFR (MDRD) Af Amer 27 L, Est GFR (MDRD) Non-Af 22 L, BUN/Creatinine Ratio 14.0, G lucose 492 H* 05/11/24 15:25: Glucose 492 H*, Calcium 8.3 L 05/11/24 16:16: POC Glucose 378 H 05/11/24 17:21: POC Glucose 275 H 05/11/24 18:12: POC Glucose 226 H 05/11/24 19:00: Urine Color Yellow, Urine Clarity Clear, Urine pH 6.0, Ur Specific [place] 1.015, Urine Protein 500 H, Urine Glucose (UA) 1000 H, Urine Ketones 15 H, Urine Occult Blood 25 H, Urine Nitrite Negative, Urine Bilirubin Negative, Urine Urobilinogen Normal, Ur Leukocyte Esterase Negative, Urine RBC 0-5 SEEN, Urine WBC 0 SEEN, Ur Squamous Epith Cells 0 SEEN, Urine Bacteria 0 SEEN, Urine Mucus 0 SEEN 05/11/24 19:01: POC Glucose 191 H 05/11/24 20:08: POC Glucose 181 H 05/11/24 20:10: Sodium 136, Potassium 3.3 L, Chloride 99, Carbon Dioxide 28.0, Anion Gap 9, BUN 39 H, Creatinine 2.69 H, Estim Creat Clear Calc 16.44, Est GFR (MDRD) Af Amer 30 L, Est GFR (MDRD) Non-Af 24 L, BUN/Creatinine Ratio 14.5, G lucose 455 H*, Calcium 7.6 L 05/11/24 20:57: POC Glucose 169 H 05/11/24 22:00: POC Glucose 194 H 05/11/24 22:59: POC Glucose 186 H 05/11/24 23:59: POC Glucose 231 H 05/12/24 00:55: POC Glucose 158 H 05/12/24 01:30: WBC 9.7, RBC 3.15 L, Hgb 9.5 L, Hct 28.1 L, MCV 89.2 D, MCH 30.2, MCHC 33.8 D, RDW Std Deviation 51.1 H, RDW Coeff of Russell 15.8 H, Plt Count 310, MPV 9.9, Immature Gran % (Auto) 0.300, Neut % (Auto) 81.2 H, Lymph % (Auto) 8.7 L, [place] % (Auto) 8.5, Eos % (Auto) 0.9, Baso % (Auto) 0.4, Absolute Neuts (auto) 7.9 H, Absolute Lymphs (auto) 0.84, Nucleated RBC % 0, Sodium 136, Potassium 3.7, Chloride 102, Carbon Dioxide 26.0, Anion Gap 8, BUN 41 H, C reatinine 2.80 H, Estim Creat Clear Calc 15.79, Est GFR (MDRD) Af Amer 28 L, Est GFR (MDRD) Non-Af 23 L, BUN/Creatinine Ratio 14.6, Glucose 180 H, Calcium 8.3 L 05/12/24 01:56: POC Glucose 147 H 05/12/24 02:58: POC Glucose 179 H 05/12/24 03:58: POC Glucose 178 H 05/12/24 05:01: POC Glucose 209 H 05/12/24 05:57: POC Glucose 178 H 05/12/24 06:57: POC Glucose 159 H Micro: Microbiology 05/11/24 19:00 Urine, Random Legionella Antigen - Final 05/11/24 19:00 Urine, Random Streptococcus pneumoniae Antigen (M - Final 05/11/24 14:16 Mucosa - Nasopharyngeal Respiratory Panel (PCR) - Final 05/11/24 07:55 Mucosa - Nose SARS-CoV-2, Influenza & RSV (PCR) - Final Physical Exam Narrative no obvious distress no pallor no icterus no JVD s1s2 no murmurs lungs clear abdomen soft no organomegaly no edema no cyanosis Assessment & Plan Assessment/Plan (1) End stage renal disease: PLAN: Usual dialysis schedule is Thursday, , Thursday. Seen on dialysis today. Breathing looks comfortable. Blood pressure is on the higher side. Resume home medications. UF 1 to 2 L as tolerated. Clotted off dialyzer today, will use heparin with dialysis next time. Hyperglycemia. Treated for DKA.
[2024-05-12] MEDS: Metoprolol Tartrate 25 MG Tablet PO ×2 (11:34→20:43)
[2024-05-12] MEDS: amLODIPine 5 MG Tablet PO (11:34)
[2024-05-12] MEDS: Insulin Glargine-YFGN 100 UNIT/ML Pen 15 UNIT SC (11:34)
[2024-05-12] MEDS: Azithromycin 500 MG in 0.9% Normal Saline (250mL Bag) 250 ML 255 MG IV (11:42)
[2024-05-12] MEDS: Insulin Lispro 100 UNIT/ML INSULN.PEN SC (11:48)
[2024-05-12 11:56] LABS: Bedside Glucose 136 mg/dL (74-106)
[2024-05-12 11:58] LABS: Bedside Glucose 276 mg/dL (74-106)
--- NOTE | 2024-05-12 12:05 | CHAPLAIN ---
Type of Pastoral Visit _x__ Initial Visit ___ Follow-up Visit ___ On-call Visit ___ General Patient Visit ___ Spiritual Assessment ___ Family Conference ___ Bereavement ___ Rapid Response ___ Code Blue ___ Other (describe below) Pastoral Care Referral From _x__ Patient _x__ Family ___ Nurse ___ Physician ___ Control Operator Flow Coat ___ Relaster ___ Other (describe below) Sacrament/Intervention _x__ Active listening ___ Anointing ___ Mormonism ___ Bereavement ___ Communion ___ Aleisha exploration ___ ___ Life review _x__ Prayer ___ Reconciliation ___ Sacrament of Sick _x__ Supportive presence ___ Wedding ___ Other (describe below) Pastoral Comments patient has finished dialysis and is eating some lunch; is at bedside; pt answers questions appropriately but does not engage in conversation; also answers some questions; pt perspective is that just do what I have to do; states that they have a anabaptism but unable to attend at this time due to being careful of illnesses; offer of support to and she responds that much falls on her to do but that I have Someone above that helps me; both welcome a prayer
--- NOTE | 2024-05-12 12:12 | CPS ---
As soon as RT tried to place pt on breathing tx, Pt then refused saying he wanted to eat instead
--- NOTE | 2024-05-12 12:23 | CASEMGMT ---
NADEEM VINCENT Assessment Face to Face with patient for initial transition planning/care coordination assessment. NADEEM VINCENT introduced self and role at [facility], pt voices understanding. Pt is A&Ox4 and is resting comfortably in bed and is calm. Pt at bedside. Care providers, pharmacy, and demographics verified. Admitting dx: Acute Encephalopathy LACE Strata: 3 PCP: Shlomo. Pt also goes to the [facility] in [place] Specialists: MAY, Kristian (Nephro), Prince (Podiatry) Preferred Pharmacy: [facility] Insurance: [facility] A/B, [facility] Supplemental plan Prescription Benefit: Yes, through the [facility] LNOK: Ghazala (W), Titi Handy (Daughter) Living Arrangements: Pt lives with his in a single story home with a finished basement and 4-5 steps to enter with handrails ADLs/IADLs: Pt reports that he is independent and that he has been using a FWW for ambulation. Pt concurs. Transportation: Self, . Denies concerns DME: CBGM and regular BGM with sufficient supplies. Cane. FWW x 2-3. Pulse ox. Grab bars. Per recent documentation, pt was 100% on 2L of oxygen. Pt states that he does not wear oxygen or a PAP machine @ night. CM to follow for any potential oxygen needs. HHC/SNF: Pt reports that he has had [facility] HH in the past. Pt has been to [facility] for a skilled stay. Pt states that he is active as an OP at [facility] for OP PT. HD: Pt attends [facility] in [facility] and states that he arrives around 0530 now. Denies transportation issues. Pt?s goal: Return home with the continuation of OP Tx Plan: TBD. Anticipate pt to return home at the time of DC with the pt with the continuation of OP Tx through [facility]. Pt denies HH at this time or needing a SNF stay. Pt states that he wants to return home at the time of DC. However, current 6-Click score is 12 and therapy evaluations are pending. CM to follow. Pt and pt denies further questions or concerns at this time. Conchita Vinson RN, CM
[2024-05-12] MEDS: Heparin Injection (Vial) 5,000 UNIT/ML VIAL 5000 UNIT SC ×2 (12:40→20:43)
[2024-05-12] MEDS: Piperacil/Tazobactam 3.375 GM in 0.9% Normal Saline (50mL MB+) 50 ML IV ×2 (13:22→20:46)
[2024-05-12] MEDS: hydrALAZINE 20 MG/ML Vial 5 MG IV (15:07)
[2024-05-12 16:36] LABS: Bedside Glucose 120 mg/dL (74-106)
--- NOTE | 2024-05-12 18:06 | PCM.PN.HOSP ---
Reason for Visit Reason for Visit: Diagnoses Type 1 diabetes mellitus with ketoacidosis without coma (05/11/24) Encephalopathy, unspecified (05/11/24) End stage renal disease (05/11/24) Subjective Subjective Patient was seen and examined today, he is alert and talkative. Patient is currently on room air, patient's blood sugar for the most part has been stable Objective Data Objective Data Vital Signs: Vital Signs Temp Pulse Resp BP Pulse Ox O2 Del Method O2 Flow Rate 98.0 F 87 14 157/67 H 100 Room Air 2 05/12/24 17:53 05/12/24 17:53 05/12/24 17:53 05/12/24 17:53 05/12/24 17:53 05/12/24 17:53 05/12/24 17:49 FiO2 60 05/11/24 10:13 Oxygen Flow Rate (L/min) 2 Oxygen Delivery Method Room Air Weight: 53.7 kg Body Mass Index (BMI) 18.0 Intake & Output: Intake and Output for Last 24 Hours 05/10/24 05/11/24 05/12/24 23:59 23:59 23:59 Intake Total 2437.20 / 2437.90 2396.70 / 2396.70 Output Total 2505 / 2505 Balance 2437.20 / 2087.90 -108.30 / -108.30 Medical Nutrition Assessment Dietitian: Malnutrition Criteria Met Start: 05/11/24 15:52 Freq: Status: Active Protocol: Document 05/11/24 16:23 SB (Rec: 05/11/24 16:23 SB [id number]) Nutrition Malnutrition Evidence of Yes Malnutrition Exists Malnutrition (severe Acute Illness/Injury ): Evidenced By Suboptimal Energy Intake (Moderate),Weight Loss (Severe ) Clinical Problem Altered Nutrient-Related Laboratory Values Etiology related to endocrine dysfunction/diabetes Signs/Symptoms as evidenced by glucose 952 and >500 Status Active Problem Acute Disease or Injury Related Malnutrition Etiology related to inadequate oral intake Signs/Symptoms as evidenced by PO meeting <50% of estimated nutrition needs x 2 months and 16% unintentional weight loss x 2 months. Status Active Problem Recommendation Dietitian Recommend advanced diet as to consistent carbohydrate Recommendations/ diet. Changes As diet is advanced recommend 240ml PO Nepro TID with meals. Will provide insulin/food education with pt at time of follow-up. Will monitor weight trends. Reviewed and approved by Arlene Guerra RDN, [facility]. Lab / Micro Data 05/12/24 01:30 05/12/24 01:30 Labs: Laboratory Results - last 24 hr 05/11/24 16:16: POC Glucose 378 H 05/11/24 18:12: POC Glucose 226 H 05/11/24 19:00: Urine Color Yellow, Urine Clarity Clear, Urine pH 6.0, Ur Specific [place]ro[place] 1.015, Urine Protein 500 H, Urine Glucose (UA) 1000 H, Urine Ketones 15 H, Urine Occult Blood 25 H, Urine Nitrite Negative, Urine Bilirubin Negative, Urine Urobilinogen Normal, Ur Leukocyte Esterase Negative, Urine RBC 0-5 SEEN, Urine WBC 0 SEEN, Ur Squamous Epith Cells 0 SEEN, Urine Bacteria 0 SEEN, Urine Mucus 0 SEEN 05/11/24 19:01: POC Glucose 191 H 05/11/24 20:08: POC Glucose 181 H 05/11/24 20:10: Sodium 136, Potassium 3.3 L, Chloride 99, Carbon Dioxide 28.0, Anion Gap 9, BUN 39 H, Creatinine 2.69 H, Estim Creat Clear Calc 16.44, Est GFR (MDRD) Af Amer 30 L, Est GFR (MDRD) Non-Af 24 L, BUN/Creatinine Ratio 14.5, Glucose 455 H*, Calcium 7.6 L 05/11/24 20:57: POC Glucose 169 H 05/11/24 22:00: POC Glucose 194 H 05/11/24 22:59: POC Glucose 186 H 05/11/24 23:59: POC Glucose 231 H 05/12/24 00:55: POC Glucose 158 H 05/12/24 01:30: WBC 9.7, RBC 3.15 L, Hgb 9.5 L, Hct 28.1 L, MCV 89.2 D, MCH 30.2, MCHC 33.8 D, RDW Std Deviation 51.1 H, RDW Coeff of Russell 15.8 H, Plt Count 310, MPV 9.9, Immature Gran % (Auto) 0.300, Neut % (Auto) 81.2 H, Lymph % (Auto) 8.7 L, [place] % (Auto) 8.5, Eos % (Auto) 0.9, Baso % (Auto) 0.4, Absolute Neuts (auto) 7.9 H, Absolute Lymphs (auto) 0.84, Nucleated RBC % 0, Sodium 136, Potassium 3.7, Chloride 102, Carbon Dioxide 26.0, Anion Gap 8, BUN 41 H, Creatinine 2.80 H, Estim Creat Clear Calc 15.79, Est GFR (MDRD) Af Amer 28 L, Est GFR (MDRD) Non-Af 23 L, BUN/Creatinine Ratio 14.6, Glucose 180 H, Calcium 8.3 L 05/12/24 01:56: POC Glucose 147 H 05/12/24 02:58: POC Glucose 179 H 05/12/24 03:58: POC Glucose 178 H 05/12/24 05:01: POC Glucose 209 H 05/12/24 05:57: POC Glucose 178 H 05/12/24 06:57: POC Glucose 159 H 05/12/24 08:04: POC Glucose 136 H 05/12/24 11:41: POC Glucose 276 H 05/12/24 16:11: POC Glucose 120 H Micro: Microbiology 05/11/24 19:00 Urine, Random Legionella Antigen - Final 05/11/24 19:00 Urine, Random Streptococcus pneumoniae Antigen (M - Final 05/11/24 14:16 Mucosa - Nasopharyngeal Respiratory Panel (PCR) - Final 05/11/24 07:55 Mucosa - Nose SARS-CoV-2, Influenza & RSV (PCR) - Final Physical Exam Const alert and no apparent distress Constitutional Narrative: Patient appears cachectic General Appearance: cooperative, well kempt and well developed Orientation / Consciousness: awake, oriented to person and oriented to place HEENT normocephalic, head/scalp atraumatic and moist oral mucous membranes Eyes PERRL, EOMs intact bilaterally and conjunctivae normal Neck supple, no JVD, thyroid normal and no carotid bruits General: trachea midline Resp normal respiratory effort, no retractions, no use of accessory muscles and clear to auscultation bilaterally Auscultation: Negative for rales, rhonchi or wheezes Cardio regular rate, regular rhythm, S1 normal heart sound, S2 normal heart sound, no murmurs, no rub and no gallops GI normal to inspection, nondistended, normoactive bowel sounds, soft to palpation, non-tender and non-distended Extremity no clubbing, cyanosis or edema Skin no rashes or lesions noted General Skin Exam: no breakdown Neuro CN's II-XII intact bilaterally, moves all extremities, no focal motor deficits and no sensory deficits noted Sensorium / Orientation: awake, alert, oriented to person and oriented to place Speech: speech normal Psych affect normal Assessment & Plan Assessment/Plan (1) Ketosis: PLAN: Plan 1. Diabetic ketoacidosis-patient is off insulin drip at this time, he is on basal insulin and he is on sliding scale insulin. #2 acute hypoxic respiratory failure-patient is currently on room air, the etiology of the patient's respiratory failure is not clear, it could be secondary to pulmonary edema rather than pneumonia, empiric antibiotics will be continued however, pulmonary medicine is participating in his care #3 end-stage renal disease requiring dialysis-nephrology is participating in his care, he underwent dialysis today #4 essential hypertension-patient's blood pressure medications were restarted #5 hyperlipidemia-patient is on a statin #6 severe acute protein and caloric malnutrition-nutritional services recommended advancing diet as to consistent carbohydrate diet, to 40 p.o. of nephro 3 times daily as recommended with meals, nutritional services will monitor weight trends Total clinical time spent by myself addressing the patient's medical issues, reviewing all of his data, and collaborating with patient's care team: 35 minutes Charges/Coding Visit Charges Inpatient E&M: 84178 Subs Hosp L2
[2024-05-12] MEDS: oxyCODONE 5 MG Tablet PO (20:43)
[2024-05-12] MEDS: Mirtazapine 15 MG Tablet PO (20:43)
[2024-05-12 20:53] LABS: Bedside Glucose 104 mg/dL (74-106)
[2024-05-13] VITALS (7 sets, daily range): BP systolic 156–202; BP diastolic 66–92; PULSE 81–99; RESP 16–19; TEMP 36–37; O2SAT 93–97; BMI 17.8
--- NOTE | 2024-05-13 05:55 | RAD_ITS ---
PROCEDURE: CHEST 1 VIEW (PORTABLE) REASON FOR EXAM: Respiratory failure. TECHNIQUE: AP portable view of the chest. COMPARISON: 05/11/2024 FINDINGS: Moderate-sized pleural effusion on the left relatively stable. Scattered interstitial infiltrates bilaterally improved in the interval. No pneumothorax. Heart size and great vessels are stable. Osseous thorax appears intact. EKG wires overlie the chest. RAD/Chest 1 View (Portable) IMPRESSION: Moderate-size pleural effusion on the left, relatively stable. Scattered interstitial infiltrates bilaterally, improved in the interval Reading Location: [facility]
[2024-05-13 06:23] LABS: Bedside Glucose 178 mg/dL (74-106)
[2024-05-13 06:57] LABS: Absolute Lymphocyte Count 0.76 X10^3/uL (0.83-4.51); Absolute Neutrophil Count 5.4 X10^3/uL (2.0-7.7); Basophil# 0.04 X10^3/uL; Basophil% 0.6 % (0-1); Eosinophil# 0.18 X10^3/uL; Eosinophils% 2.6 % (0-5); Hematocrit 33.7 % (40-54); Hemoglobin 10.8 g/dL (13.0-16.5); Lymphocyte # 0.76 X10^3/ul (0.83-4.51); Lymphocyte % 10.8 % (19-41); Mean Corpuscular Hgb 29.4 pg (27.0-32.0); Mean Corpuscular Volume 91.8 fL (80-94); Mean Platelet Vol. 10.3 fl (6.2-12.0); Monocyte# 0.69 X10^3/uL; Monocyte% 9.8 % (0-10); NRBC Flagged by Analyzer 0 % (0-5); Neutrophil # 5.36 X10^3/uL (2.7-7.7); Neutrophil % 75.9 % (47-70); Platelet Count 281 K/mm3 (150-450); RBC Distribution Width CV 15.7 % (11.6-14.6); RBC Distribution Width SD 53.3 fl (35.1-43.9); Red Blood Count 3.67 M/mm3 (4.6-6.2); White Blood Count 7.1 K/mm3 (4.4-11.0)
[2024-05-13 07:30] LABS: Anion Gap 9 (5-15); BUN 32 mg/dL (7-18); BUN/Creat Ratio 12.5 RATIO (10-20); Calcium,Total 8.5 mg/dL (8.5-10.1); Chloride 101 mmol/L (98-107); Creatinine, Serum 2.55 mg/dL (0.70-1.30); EST Glomerular Filtration Rate 26 mL/min (>60); Est Glom Filt Rate - Afr Amer 31 mL/min (>60); Estimated Creatinine Clearance 17.36 ml/min; Glucose 232 mg/dL (74-106); Potassium 4.3 mmol/L (3.5-5.1); Sodium Level 134 mmol/L (136-145)
[2024-05-13] MEDS: Insulin Lispro 100 UNIT/ML INSULN.PEN SC ×2 (08:00→11:16)
--- NOTE | 2024-05-13 10:45 | CASEMGMT ---
Per Dr. Schroeder, there is potential for the pt to DC over the weekend. Pt to be dialyzed tomorrow. Per ICU rounds, therapy states that they feel safe with the pt returning home at the time of DC with OP Tx. NADEEM VINCENT to pt room at this time to discuss DC planning. Pt resting comfortably in bed and is calm. Pt states that he still plans to DC home once medically ready and states that he plans to continue OP Tx through [facility] (see RN CM Assessment). Pt denies needing a new Rx for this. This RN MELISA also noted that the pt was previously on additional oxygen. A verbal list of local in-network DME companies were provided to the pt at this time. Pt prefers [facility].?Pt aware that [facility] does provide new weekend setups. Green sheet placed on pt chart to help facilitate potential weekend DC. Pt denies further questions or concerns at this time.
[2024-05-13] MEDS: Heparin Injection (Vial) 5,000 UNIT/ML VIAL 5000 UNIT SC ×2 (11:12→21:09)
[2024-05-13] MEDS: amLODIPine 5 MG Tablet PO (11:13)
[2024-05-13] MEDS: Piperacil/Tazobactam 3.375 GM in 0.9% Normal Saline (50mL MB+) 50 ML IV ×2 (11:13→21:07)
[2024-05-13] MEDS: Insulin Glargine-YFGN 100 UNIT/ML Pen 15 UNIT SC (11:13)
[2024-05-13] MEDS: Metoprolol Tartrate 25 MG Tablet PO ×2 (11:13→21:08)
[2024-05-13 11:50] LABS: Bedside Glucose 302 mg/dL (74-106)
--- NOTE | 2024-05-13 13:13 | PN.RENAL_ITS ---
Subjective Subjective no new events Objective Data Objective Data Vital Signs: Vital Signs Temp Pulse Resp BP Pulse Ox O2 Del Method O2 Flow Rate 98.0 F 91 17 189/92 H 97 Room Air 2 05/13/24 07:51 05/13/24 11:13 05/13/24 07:51 05/13/24 07:51 05/13/24 07:51 05/13/24 08:50 05/13/24 04:40 FiO2 60 05/11/24 10:13 Oxygen Flow Rate (L/min) 2 Oxygen Delivery Method Room Air Weight: 53.116 kg Body Mass Index (BMI) 17.8 Intake & Output: Intake and Output for Last 24 Hours 05/11/24 05/12/24 05/13/24 23:59 23:59 23:59 Intake Total 2437.20 / 2437.90 2396.70 / 2396.70 50 / 50 Output Total 4335 / 4335 2180 / 2180 Balance 2437.20 / 2087.90 -1938.30 / -1938.30 -2130 / -2130 Medical Nutrition Assessment Dietitian: Malnutrition Criteria Met Start: 05/11/24 15:52 Freq: Status: Active Protocol: Document 05/11/24 16:23 SB (Rec: 05/11/24 16:23 SB [id number]) Nutrition Malnutrition Evidence of Yes Malnutrition Exists Malnutrition (severe Acute Illness/Injury ): Evidenced By Suboptimal Energy Intake (Moderate),Weight Loss (Severe ) Clinical Problem Altered Nutrient-Related Laboratory Values Etiology related to endocrine dysfunction/diabetes Signs/Symptoms as evidenced by glucose 952 and >500 Status Active Problem Acute Disease or Injury Related Malnutrition Etiology related to inadequate oral intake Signs/Symptoms as evidenced by PO meeting <50% of estimated nutrition needs x 2 months and 16% unintentional weight loss x 2 months. Status Active Problem Recommendation Dietitian Recommend advanced diet as to consistent carbohydrate Recommendations/ diet. Changes As diet is advanced recommend 240ml PO Nepro TID with meals. Will provide insulin/food education with pt at time of follow-up. Will monitor weight trends. Reviewed and approved by Arlene Guerra RDN, [facility]. Lab / Micro Data 05/13/24 06:44 05/13/24 06:44 Labs: Laboratory Results - last 24 hr 05/12/24 16:11: POC Glucose 120 H 05/12/24 20:31: POC Glucose 104 05/13/24 06:06: POC Glucose 178 H 05/13/24 06:44: WBC 7.1, RBC 3.67 L, Hgb 10.8 L, Hct 33.7 L, MCV 91.8, MCH 29.4, MCHC 32.0 D, RDW Std Deviation 53.3 H, RDW Coeff of Russell 15.7 H, Plt Count 281, MPV 10.3, Immature Gran % (Auto) 0.300, Neut % (Auto) 75.9 H, Lymph % (Auto) 10.8 L, [place] % (Auto) 9.8, Eos % (Auto) 2.6, Baso % (Auto) 0.6, Absolute Neuts (auto) 5.4, Absolute Lymphs (auto) 0.76 L, Nucleated RBC % 0, Sodium 134 L, Potassium 4.3, Chloride 101, Carbon Dioxide 24.0, Anion Gap 9, BUN 32 H, C reatinine 2.55 H, Estim Creat Clear Calc 17.36, Est GFR (MDRD) Af Amer 31 L, Est GFR (MDRD) Non-Af 26 L, BUN/Creatinine Ratio 12.5, Glucose 232 H, Calcium 8.5 05/13/24 11:15: POC Glucose 302 H Micro: Microbiology 05/11/24 08:01 Blood Culture (Wb) - Left Hand Blood Culture - Preliminary No growth in 48 hours. 05/11/24 07:58 Blood Culture (Wb) - Right Forearm Blood Culture - Preliminary No growth in 48 hours. 05/11/24 19:00 Urine, Random Legionella Antigen - Final 05/11/24 19:00 Urine, Random Streptococcus pneumoniae Antigen (M - Final 05/11/24 14:16 Mucosa - Nasopharyngeal Respiratory Panel (PCR) - Final 05/11/24 07:55 Mucosa - Nose SARS-CoV-2, Influenza & RSV (PCR) - Final Radiography Diagnostic Testing: Radiology Impression Chest X-Ray 05/13/24 05:55 IMPRESSION: Moderate-size pleural effusion on the left, relatively stable. Scattered interstitial infiltrates bilaterally, improved in the interval Reading Location: [facility] Physical Exam Narrative no obvious distress no pallor no icterus no JVD s1s2 no murmurs lungs clear abdomen soft no organomegaly no edema no cyanosis Assessment & Plan Assessment/Plan (1) End stage renal disease: PLAN: Usual dialysis schedule is Thursday, , Thursday. HD tomorrow Hyperglycemia. Treated for DKA. dw family
--- NOTE | 2024-05-13 14:07 | PCM.PN.HOSP ---
Reason for Visit Reason for Visit: Diagnoses Type 1 diabetes mellitus with ketoacidosis without coma (05/11/24) Other specified metabolic disorders (05/11/24) Encephalopathy, unspecified (05/11/24) End stage renal disease (05/11/24) Subjective Subjective Patient was seen and examined today he is alert and appropriate. Does not appear to be in any distress. Patient's white blood cell count is normal today, hemoglobin is 10.8, I talked briefly with pulmonary medicine and they would prefer to leave him on empiric antibiotics until the blood culture is final. Patient will have hemodialysis tomorrow Objective Data Objective Data Vital Signs: Vital Signs Temp Pulse Resp BP Pulse Ox O2 Del Method O2 Flow Rate 98.0 F 91 17 189/92 H 97 Room Air 2 05/13/24 07:51 05/13/24 11:13 05/13/24 07:51 05/13/24 07:51 05/13/24 07:51 05/13/24 08:50 05/13/24 04:40 FiO2 60 05/11/24 10:13 Oxygen Flow Rate (L/min) 2 Oxygen Delivery Method Room Air Weight: 53.116 kg Body Mass Index (BMI) 17.8 Intake & Output: Intake and Output for Last 24 Hours 05/11/24 05/12/24 05/13/24 23:59 23:59 23:59 Intake Total 2437.20 / 2437.90 2396.70 / 2396.70 50 / 50 Output Total 4335 / 4335 2180 / 2180 Balance 2437.20 / 2087.90 -1938.30 / -1938.30 -2130 / -2130 Medical Nutrition Assessment Dietitian: Malnutrition Criteria Met Start: 05/11/24 15:52 Freq: Status: Active Protocol: Document 05/11/24 16:23 SB (Rec: 05/11/24 16:23 SB [id number]) Nutrition Malnutrition Evidence of Yes Malnutrition Exists Malnutrition (severe Acute Illness/Injury ): Evidenced By Suboptimal Energy Intake (Moderate),Weight Loss (Severe ) Clinical Problem Altered Nutrient-Related Laboratory Values Etiology related to endocrine dysfunction/diabetes Signs/Symptoms as evidenced by glucose 952 and >500 Status Active Problem Acute Disease or Injury Related Malnutrition Etiology related to inadequate oral intake Signs/Symptoms as evidenced by PO meeting <50% of estimated nutrition needs x 2 months and 16% unintentional weight loss x 2 months. Status Active Problem Recommendation Dietitian Recommend advanced diet as to consistent carbohydrate Recommendations/ diet. Changes As diet is advanced recommend 240ml PO Nepro TID with meals. Will provide insulin/food education with pt at time of follow-up. Will monitor weight trends. Reviewed and approved by Arlene Guerra RDN, [facility]. Lab / Micro Data 05/13/24 06:44 05/13/24 06:44 Labs: Laboratory Results - last 24 hr 05/12/24 16:11: POC Glucose 120 H 05/12/24 20:31: POC Glucose 104 05/13/24 06:06: POC Glucose 178 H 05/13/24 06:44: WBC 7.1, RBC 3.67 L, Hgb 10.8 L, Hct 33.7 L, MCV 91.8, MCH 29.4, MCHC 32.0 D, RDW Std Deviation 53.3 H, RDW Coeff of Russell 15.7 H, Plt Count 281, MPV 10.3, Immature Gran % (Auto) 0.300, Neut % (Auto) 75.9 H, Lymph % (Auto) 10.8 L, [place] % (Auto) 9.8, Eos % (Auto) 2.6, Baso % (Auto) 0.6, Absolute Neuts (auto) 5.4, Absolute Lymphs (auto) 0.76 L, Nucleated RBC % 0, Sodium 134 L, Potassium 4.3, Chloride 101, Carbon Dioxide 24.0, Anion Gap 9, BUN 32 H, Creatinine 2.55 H, Estim Creat Clear Calc 17.36, Est GFR (MDRD) Af Amer 31 L, Est GFR (MDRD) Non-Af 26 L, BUN/Creatinine Ratio 12.5, Glucose 232 H, Calcium 8.5 05/13/24 11:15: POC Glucose 302 H Micro: Microbiology 05/11/24 08:01 Blood Culture (Wb) - Left Hand Blood Culture - Preliminary No growth in 48 hours. 05/11/24 07:58 Blood Culture (Wb) - Right Forearm Blood Culture - Preliminary No growth in 48 hours. 05/11/24 19:00 Urine, Random Legionella Antigen - Final 05/11/24 19:00 Urine, Random Streptococcus pneumoniae Antigen (M - Final 05/11/24 14:16 Mucosa - Nasopharyngeal Respiratory Panel (PCR) - Final 05/11/24 07:55 Mucosa - Nose SARS-CoV-2, Influenza & RSV (PCR) - Final Radiography Diagnostic Testing: Radiology Impression Chest X-Ray 05/13/24 05:55 IMPRESSION: Moderate-size pleural effusion on the left, relatively stable. Scattered interstitial infiltrates bilaterally, improved in the interval Reading Location: [facility] Physical Exam Narrative alert and no apparent distress Constitutional Narrative: Patient appears cachectic General Appearance: cooperative, well kempt and well developed Orientation / Consciousness: awake, oriented to person and oriented to place HEENT normocephalic, head/scalp atraumatic and moist oral mucous membranes Eyes PERRL, EOMs intact bilaterally and conjunctivae normal Neck supple, no JVD, thyroid normal and no carotid bruits General: trachea midline Resp normal respiratory effort, no retractions, no use of accessory muscles and clear to auscultation bilaterally Auscultation: Negative for rales, rhonchi or wheezes Cardio regular rate, regular rhythm, S1 normal heart sound, S2 normal heart sound, no murmurs, no rub and no gallops GI normal to inspection, nondistended, normoactive bowel sounds, soft to palpation, non-tender and non-distended Extremity no clubbing, cyanosis or edema Skin no rashes or lesions noted General Skin Exam: no breakdown Neuro CN's II-XII intact bilaterally, moves all extremities, no focal motor deficits and no sensory deficits noted Sensorium / Orientation: awake, alert, oriented to person and oriented to place Speech: speech normal Psych affect normal Assessment & Plan Assessment/Plan (1) Interstitial pneumonia of both lungs: (2) Ketosis: PLAN: Plan 1. Diabetic ketoacidosis-patient is off insulin drip at this time, he is on basal insulin and he is on sliding scale insulin. #2 acute hypoxic respiratory failure-patient is currently on room air, the etiology of the patient's respiratory failure is not clear, it could be secondary to pulmonary edema rather than pneumonia, empiric antibiotics will be continued however, pulmonary medicine is participating in his care #3 end-stage renal disease requiring dialysis-nephrology is participating in his care, his next dialysis is tomorrow #4 essential hypertension-patient's blood pressure medications were restarted #5 hyperlipidemia-patient is on a statin #6 severe acute protein and caloric malnutrition-nutritional services recommended advancing diet as to consistent carbohydrate diet, to 40 p.o. of nephro 3 times daily as recommended with meals, nutritional services will monitor weight trends Total clinical time spent by myself addressing the patient's medical issues, reviewing all of his data, and collaborating with patient's care team: 35 minutes Charges/Coding Visit Charges Inpatient E&M: 21079 Subs Hosp L2
[2024-05-13] MEDS: Dextrose 10%-Water 250 ML 999 ML IV (16:23)
[2024-05-13] MEDS: hydrALAZINE 20 MG/ML Vial 5 MG IV (16:46)
[2024-05-13 18:38] LABS: Bedside Glucose 107 mg/dL (74-106)
[2024-05-13] MEDS: Mirtazapine 15 MG Tablet PO (21:08)
[2024-05-13 21:43] LABS: Bedside Glucose 130 mg/dL (74-106)
[2024-05-13] MEDS: oxyCODONE 5 MG Tablet PO (22:53)
[2024-05-14] VITALS (20 sets, daily range): BP systolic 91–353; BP diastolic 54–103; PULSE 78–106; RESP 15–22; TEMP 36.2–37.2; O2SAT 4–100; BMI 17.7; BMI 17.1
[2024-05-14 07:45] LABS: Bedside Glucose 327 mg/dL (74-106)
[2024-05-14] MEDS: Insulin Lispro 100 UNIT/ML INSULN.PEN SC ×2 (08:39→11:11)
[2024-05-14 09:02] LABS: Bedside Glucose 323 mg/dL (74-106)
--- NOTE | 2024-05-14 10:32 | PCM.PN.HOSP ---
Reason for Visit Reason for Visit: Diagnoses Type 1 diabetes mellitus with ketoacidosis without coma (05/11/24) Other specified metabolic disorders (05/11/24) Encephalopathy, unspecified (05/11/24) Interstitial pulmonary disease, unspecified (05/11/24) End stage renal disease (05/11/24) Subjective Subjective Patient was seen and examined today, he is alert and appropriate, he will have dialysis today, blood culture did not show any growth in 48 hours. Objective Data Objective Data Vital Signs: Vital Signs Temp Pulse Resp BP Pulse Ox O2 Del Method O2 Flow Rate 97.1 F L 93 16 149/73 H 92 Nasal Cannula 4 05/14/24 09:50 05/14/24 09:50 05/14/24 09:50 05/14/24 09:50 05/14/24 09:50 05/14/24 09:50 05/14/24 09:50 FiO2 60 05/11/24 10:13 Oxygen Flow Rate (L/min) 4 Oxygen Delivery Method Nasal Cannula Weight: 53.206 kg Body Mass Index (BMI) 17.7 Intake & Output: Intake and Output for Last 24 Hours 05/12/24 05/13/24 05/14/24 23:59 23:59 23:59 Intake Total 2396.70 / 2396.70 350 / 350 50 / 50 Output Total 4335 / 4335 2180 / 4010 3660 / 3660 Balance -1938.30 / -1938.30 -1830 / -3660 -3610 / -3610 Medical Nutrition Assessment Dietitian: Malnutrition Criteria Met Start: 05/11/24 15:52 Freq: Status: Active Protocol: Document 05/11/24 16:23 SB (Rec: 05/11/24 16:23 SB [id number]) Nutrition Malnutrition Evidence of Yes Malnutrition Exists Malnutrition (severe Acute Illness/Injury ): Evidenced By Suboptimal Energy Intake (Moderate),Weight Loss (Severe ) Clinical Problem Altered Nutrient-Related Laboratory Values Etiology related to endocrine dysfunction/diabetes Signs/Symptoms as evidenced by glucose 952 and >500 Status Active Problem Acute Disease or Injury Related Malnutrition Etiology related to inadequate oral intake Signs/Symptoms as evidenced by PO meeting <50% of estimated nutrition needs x 2 months and 16% unintentional weight loss x 2 months. Status Active Problem Recommendation Dietitian Recommend advanced diet as to consistent carbohydrate Recommendations/ diet. Changes As diet is advanced recommend 240ml PO Nepro TID with meals. Will provide insulin/food education with pt at time of follow-up. Will monitor weight trends. Reviewed and approved by Arlene Guerra RDN, LD. Lab / Micro Data 05/13/24 06:44 05/13/24 06:44 Labs: Laboratory Results - last 24 hr 05/13/24 11:15: POC Glucose 302 H 05/13/24 18:16: POC Glucose 107 H 05/13/24 21:07: POC Glucose 130 H 05/14/24 07:27: POC Glucose 327 H 05/14/24 08:37: POC Glucose 323 H Micro: Microbiology 05/11/24 08:01 Blood Culture (Wb) - Left Hand Blood Culture - Preliminary No growth in 48 hours. 05/11/24 07:58 Blood Culture (Wb) - Right Forearm Blood Culture - Preliminary No growth in 48 hours. 05/11/24 19:00 Urine, Random Legionella Antigen - Final 05/11/24 19:00 Urine, Random Streptococcus pneumoniae Antigen (M - Final 05/11/24 14:16 Mucosa - Nasopharyngeal Respiratory Panel (PCR) - Final 05/11/24 07:55 Mucosa - Nose SARS-CoV-2, Influenza & RSV (PCR) - Final Physical Exam Narrative alert and no apparent distress Constitutional Narrative: Patient appears cachectic General Appearance: cooperative, well kempt and well developed Orientation / Consciousness: awake, oriented to person and oriented to place HEENT normocephalic, head/scalp atraumatic and moist oral mucous membranes Eyes PERRL, EOMs intact bilaterally and conjunctivae normal Neck supple, no JVD, thyroid normal and no carotid bruits General: trachea midline Resp normal respiratory effort, no retractions, no use of accessory muscles and clear to auscultation bilaterally Auscultation: Negative for rales, rhonchi or wheezes Cardio regular rate, regular rhythm, S1 normal heart sound, S2 normal heart sound, no murmurs, no rub and no gallops GI normal to inspection, nondistended, normoactive bowel sounds, soft to palpation, non-tender and non-distended Extremity no clubbing, cyanosis or edema Skin no rashes or lesions noted General Skin Exam: no breakdown Neuro CN's II-XII intact bilaterally, moves all extremities, no focal motor deficits and no sensory deficits noted Sensorium / Orientation: awake, alert, oriented to person and oriented to place Speech: speech normal Psych affect normal Assessment & Plan Assessment/Plan (1) Ketosis: (2) Interstitial pneumonia of both lungs: PLAN: Plan 1. Diabetic ketoacidosis-patient is off insulin drip at this time, he is on basal insulin and he is on sliding scale insulin. #2 acute hypoxic respiratory failure-patient is currently on room air, the etiology of the patient's respiratory failure is not clear, it could be secondary to pulmonary edema, patient's blood cultures negative at this time and I have elected to stop his antibiotic coverage and observe the patient #3 end-stage renal disease requiring dialysis-nephrology is participating in his care, he is undergoing dialysis today #4 essential hypertension-patient's blood pressure medications were restarted #5 hyperlipidemia-patient is on a statin #6 severe acute protein and caloric malnutrition-nutritional services recommended advancing diet as to consistent carbohydrate diet, to 40 p.o. of nephro 3 times daily as recommended with meals, nutritional services will monitor weight trends Total clinical time spent by myself addressing the patient's medical issues, reviewing all of his data, and collaborating with patient's care team: 35 minutes Charges/Coding Visit Charges Inpatient E&M: 36102 Subs Hosp L2
[2024-05-14] MEDS: Heparin 10,000 UNITS/10 ML Vial 2000 UNITS IV (10:47)
[2024-05-14] MEDS: 0.9% Normal Saline 1,000 ML IV.SOLN. 200 ML IV (10:48)
[2024-05-14] MEDS: Insulin Glargine-YFGN 100 UNIT/ML Pen 15 UNIT SC (11:09)
[2024-05-14] MEDS: oxyCODONE 5 MG Tablet PO (11:18)
[2024-05-14] MEDS: Heparin Injection (Vial) 5,000 UNIT/ML VIAL 5000 UNIT SC ×2 (11:19→21:35)
[2024-05-14 11:32] LABS: Bedside Glucose 287 mg/dL (74-106)
[2024-05-14] MEDS: amLODIPine 5 MG Tablet PO (13:55)
[2024-05-14] MEDS: Metoprolol Tartrate 25 MG Tablet PO ×2 (13:55→21:35)
[2024-05-14 17:36] LABS: Bedside Glucose > 500 mg/dL (74-106)
[2024-05-14] MEDS: Insulin Lispro 100 UNIT/ML INSULN.PEN 15 UNIT SC (17:45)
[2024-05-14] MEDS: Mirtazapine 15 MG Tablet PO (21:37)
[2024-05-14 21:47] LABS: Bedside Glucose 474 mg/dL (74-106)
[2024-05-14] MEDS: Insulin Lispro 100 UNIT/ML INSULN.PEN 18 UNIT SC (21:48)
[2024-05-15] VITALS (7 sets, daily range): BP systolic 139–178; BP diastolic 67–98; PULSE 71–86; RESP 18–20; TEMP 36.4–37.2; O2SAT 93–100; BMI 17.1
[2024-05-15] MEDS: Insulin Lispro 100 UNIT/ML INSULN.PEN SC ×4 (06:24→16:39)
[2024-05-15] MEDS: Metoprolol Tartrate 25 MG Tablet PO ×2 (06:27→21:46)
[2024-05-15] MEDS: amLODIPine 5 MG Tablet PO (06:27)
[2024-05-15 06:48] LABS: Bedside Glucose 225 mg/dL (74-106)
[2024-05-15] MEDS: Heparin Injection (Vial) 5,000 UNIT/ML VIAL 5000 UNIT SC ×2 (09:45→21:46)
[2024-05-15] MEDS: Insulin Glargine-YFGN 100 UNIT/ML Pen 15 UNIT SC (09:45)
[2024-05-15 12:15] LABS: Bedside Glucose 349 mg/dL (74-106)
--- NOTE | 2024-05-15 12:59 | PN.HOSP_ITS ---
Reason for Visit Reason for Visit: Diagnoses Type 1 diabetes mellitus with ketoacidosis without coma (05/11/24) Other specified metabolic disorders (05/11/24) Encephalopathy, unspecified (05/11/24) Interstitial pulmonary disease, unspecified (05/11/24) End stage renal disease (05/11/24) Subjective Subjective Patient was seen and examined today, he is currently on 3 L of oxygen via nasal cannula, he would like to go home at the time of discharge rather than go to a nursing facility. Patient's blood sugars are not well-controlled at this time. I will need to review his insulin and adjust it. Objective Data Objective Data Vital Signs: Vital Signs Temp Pulse Resp BP Pulse Ox O2 Del Method O2 Flow Rate 97.6 F L 76 18 148/98 H 94 Nasal Cannula 3 05/15/24 09:43 05/15/24 09:43 05/15/24 09:43 05/15/24 09:43 05/15/24 09:43 05/15/24 09:43 05/15/24 09:43 FiO2 60 05/11/24 10:13 Oxygen Flow Rate (L/min) 3 Oxygen Delivery Method Nasal Cannula Weight: 51.3 kg Body Mass Index (BMI) 17.1 Intake & Output: Intake and Output for Last 24 Hours 05/13/24 05/14/24 05/15/24 23:59 23:59 23:59 Intake Total 350 / 350 290 / 590 300 / 300 Output Total 2180 / 4010 6160 / 6160 170 / 170 Balance -1830 / -3660 -5870 / -5570 130 / 130 Medical Nutrition Assessment Dietitian: Malnutrition Criteria Met Start: 05/11/24 15:52 Freq: Status: Active Protocol: Document 05/11/24 16:23 SB (Rec: 05/11/24 16:23 SB [id number]) Nutrition Malnutrition Evidence of Yes Malnutrition Exists Malnutrition (severe Acute Illness/Injury ): Evidenced By Suboptimal Energy Intake (Moderate),Weight Loss (Severe ) Clinical Problem Altered Nutrient-Related Laboratory Values Etiology related to endocrine dysfunction/diabetes Signs/Symptoms as evidenced by glucose 952 and >500 Status Active Problem Acute Disease or Injury Related Malnutrition Etiology related to inadequate oral intake Signs/Symptoms as evidenced by PO meeting <50% of estimated nutrition needs x 2 months and 16% unintentional weight loss x 2 months. Status Active Problem Recommendation Dietitian Recommend advanced diet as to consistent carbohydrate Recommendations/ diet. Changes As diet is advanced recommend 240ml PO Nepro TID with meals. Will provide insulin/food education with pt at time of follow-up. Will monitor weight trends. Reviewed and approved by Arlene Guerra RDN, [facility]. Lab / Micro Data 05/13/24 06:44 05/13/24 06:44 Labs: Laboratory Results - last 24 hr 05/14/24 17:11: POC Glucose > 500 H* 05/14/24 21:19: POC Glucose 474 H* 05/15/24 06:19: POC Glucose 225 H 05/15/24 11:47: POC Glucose 349 H Micro: Microbiology 05/11/24 08:01 Blood Culture (Wb) - Left Hand Blood Culture - Preliminary No growth in 48 hours. 05/11/24 07:58 Blood Culture (Wb) - Right Forearm Blood Culture - Preliminary No growth in 48 hours. 05/11/24 19:00 Urine, Random Legionella Antigen - Final 05/11/24 19:00 Urine, Random Streptococcus pneumoniae Antigen (M - Final 05/11/24 14:16 Mucosa - Nasopharyngeal Respiratory Panel (PCR) - Final 05/11/24 07:55 Mucosa - Nose SARS-CoV-2, Influenza & RSV (PCR) - Final Physical Exam Narrative alert and no apparent distress Constitutional Narrative: Patient appears cachectic General Appearance: cooperative, well kempt and well developed Orientation / Consciousness: awake, oriented to person and oriented to place HEENT normocephalic, head/scalp atraumatic and moist oral mucous membranes Eyes PERRL, EOMs intact bilaterally and conjunctivae normal Neck supple, no JVD, thyroid normal and no carotid bruits General: trachea midline Resp normal respiratory effort, no retractions, no use of accessory muscles and clear to auscultation bilaterally Auscultation: Negative for rales, rhonchi or wheezes Cardio regular rate, regular rhythm, S1 normal heart sound, S2 normal heart sound, no murmurs, no rub and no gallops GI normal to inspection, nondistended, normoactive bowel sounds, soft to palpation, non-tender and non-distended Extremity no clubbing, cyanosis or edema Skin no rashes or lesions noted General Skin Exam: no breakdown Neuro CN's II-XII intact bilaterally, moves all extremities, no focal motor deficits and no sensory deficits noted Sensorium / Orientation: awake, alert, oriented to person and oriented to place Speech: speech normal Psych affect normal Assessment & Plan Assessment/Plan (1) Ketosis: (2) Interstitial pneumonia of both lungs: PLAN: Plan 1. Diabetic ketoacidosis-patient is off insulin drip at this time, he is on basal insulin and he is on sliding scale insulin and basal insulin, I will review the insulin and adjusted as necessary #2 acute hypoxic respiratory failure-patient is currently on room air, the etiology of the patient's respiratory failure is not clear, it could be secondary to pulmonary edema, patient's blood cultures negative at this time- antibiotic coverage was discontinued and the patient will be observed. #3 end-stage renal disease requiring dialysis-nephrology is participating in his care, it appears the next dialysis day may be Thursday #4 essential hypertension-patient's blood pressure medications were restarted #5 hyperlipidemia-patient is on a statin #6 severe acute protein and caloric malnutrition-nutritional services recommended advancing diet as to consistent carbohydrate diet, to 40 p.o. of nephro 3 times daily as recommended with meals, nutritional services will monitor weight trends A decision will have to be made regarding the patient returning home at the end of this hospitalization or going to an extended care facility for short-term rehab. Total clinical time spent by myself addressing the patient's medical issues, reviewing all of his data, and collaborating with patient's care team: 35 minutes Charges/Coding Visit Charges Inpatient E&M: 58483 Subs Hosp L2
[2024-05-15] MEDS: oxyCODONE 5 MG Tablet PO (14:33)
[2024-05-15 17:00] LABS: Bedside Glucose 239 mg/dL (74-106)
[2024-05-15] MEDS: 0.9% Saline Lock 10 ML Syringe IV (21:45)
[2024-05-15] MEDS: Mirtazapine 15 MG Tablet PO (21:46)
[2024-05-15 22:08] LABS: Bedside Glucose 52 mg/dL (74-106)
[2024-05-15 22:44] LABS: Bedside Glucose 104 mg/dL (74-106)
[2024-05-16] VITALS (8 sets, daily range): BP systolic 136–149; BP diastolic 69–83; PULSE 70–86; RESP 15–18; TEMP 36.2–36.8; O2SAT 92–100; BMI 17.7
[2024-05-16] MEDS: Dextrose 10%-Water 250 ML 999 ML IV ×3 (01:04→21:01)
[2024-05-16 01:50] LABS: Bedside Glucose 196 mg/dL (74-106)
[2024-05-16 03:07] LABS: Bedside Glucose 62 mg/dL (74-106)
[2024-05-16 06:34] LABS: Bedside Glucose 138 mg/dL (74-106)
[2024-05-16] MEDS: Heparin Injection (Vial) 5,000 UNIT/ML VIAL 5000 UNIT SC ×2 (09:13→21:03)
[2024-05-16] MEDS: Metoprolol Tartrate 25 MG Tablet PO ×2 (09:13→21:03)
[2024-05-16] MEDS: amLODIPine 5 MG Tablet PO (09:13)
[2024-05-16] MEDS: Insulin Lispro 100 UNIT/ML INSULN.PEN SC ×2 (10:17→10:18)
[2024-05-16] MEDS: Insulin Glargine-YFGN 100 UNIT/ML Pen 20 UNIT SC (10:17)
[2024-05-16 10:49] LABS: Bedside Glucose 421 mg/dL (74-106)
--- NOTE | 2024-05-16 10:51 | PN.HOSP_ITS ---
Reason for Visit Reason for Visit: Diagnoses Type 1 diabetes mellitus with ketoacidosis without coma (05/11/24) Other specified metabolic disorders (05/11/24) Encephalopathy, unspecified (05/11/24) Interstitial pulmonary disease, unspecified (05/11/24) End stage renal disease (05/11/24) Subjective Subjective Patient is an 78-year-old gentleman with history of end-stage renal disease on hemodialysis, diabetes mellitus currently on insulin who was brought to the emergency department with high glucose levels as well as confusion diagnosed with diabetic ketoacidosis admitted to the intensive care unit managed and stabilized and transferred to a monitored bed Objective Data Objective Data Vital Signs: Vital Signs Temp Pulse Resp BP Pulse Ox O2 Del Method O2 Flow Rate 97.9 F 80 16 143/69 H 100 Room Air 4 05/16/24 09:08 05/16/24 09:13 05/16/24 09:08 05/16/24 09:08 05/16/24 09:08 05/16/24 09:08 05/16/24 07:22 FiO2 60 05/11/24 10:13 Oxygen Flow Rate (L/min) 4 Oxygen Delivery Method Room Air Weight: 53.1 kg Body Mass Index (BMI) 17.7 Intake & Output: Intake and Output for Last 24 Hours 05/14/24 05/15/24 05/16/24 23:59 23:59 23:59 Intake Total 290 / 590 300 / 540 610 / 610 Output Total 6160 / 6160 170 / 420 650 / 650 Balance -5870 / -5570 130 / 120 -40 / -40 Medical Nutrition Assessment Dietitian: Malnutrition Criteria Met Start: 05/11/24 15:52 Freq: Status: Active Protocol: Document 05/11/24 16:23 SB (Rec: 05/11/24 16:23 SB [id number]) Nutrition Malnutrition Evidence of Yes Malnutrition Exists Malnutrition (severe Acute Illness/Injury ): Evidenced By Suboptimal Energy Intake (Moderate),Weight Loss (Severe ) Clinical Problem Altered Nutrient-Related Laboratory Values Etiology related to endocrine dysfunction/diabetes Signs/Symptoms as evidenced by glucose 952 and >500 Status Active Problem Acute Disease or Injury Related Malnutrition Etiology related to inadequate oral intake Signs/Symptoms as evidenced by PO meeting <50% of estimated nutrition needs x 2 months and 16% unintentional weight loss x 2 months. Status Active Problem Recommendation Dietitian Recommend advanced diet as to consistent carbohydrate Recommendations/ diet. Changes As diet is advanced recommend 240ml PO Nepro TID with meals. Will provide insulin/food education with pt at time of follow-up. Will monitor weight trends. Reviewed and approved by Arlene Guerra RDN, [facility]. Lab / Micro Data 05/13/24 06:44 05/13/24 06:44 Labs: Laboratory Results - last 24 hr 05/15/24 11:47: POC Glucose 349 H 05/15/24 16:38: POC Glucose 239 H 05/15/24 21:40: POC Glucose 52 L 05/15/24 22:26: POC Glucose 104 05/16/24 00:33: POC Glucose 62 L 05/16/24 01:32: POC Glucose 196 H 05/16/24 06:04: POC Glucose 138 H 05/16/24 10:15: POC Glucose 421 H Micro: Microbiology 05/11/24 08:01 Blood Culture (Wb) - Left Hand Blood Culture - Preliminary No growth in 5 days. 05/11/24 07:58 Blood Culture (Wb) - Right Forearm Blood Culture - Preliminary No growth in 5 days. 05/11/24 19:00 Urine, Random Legionella Antigen - Final 05/11/24 19:00 Urine, Random Streptococcus pneumoniae Antigen (M - Final 05/11/24 14:16 Mucosa - Nasopharyngeal Respiratory Panel (PCR) - Final 05/11/24 07:55 Mucosa - Nose SARS-CoV-2, Influenza & RSV (PCR) - Final Physical Exam Narrative GENERAL: cooperative HEENT: Atraumatic; normocephalic EYES; Anicteric, Normal Conjunctiva NECK; supple, normal thyroid, RESPIRATORY: Diminished to auscultation CARDIOVASCULAR: Regular S1 S2, GI: soft, normoactive bowel sounds, : No Renal angle tenderness; EXTREMITIES: No edema, no clubbing, MUSCULOSKELETAL: no muscle wasting NEURO: Awake; no lateralizing signs. SKIN: No Rash PSYCH; Flat affect Assessment & Plan Assessment/Plan (1) Ketosis: (2) Interstitial pneumonia of both lungs: PLAN: Plan Patient is an 78-year-old gentleman with history of end-stage renal disease on hemodialysis, diabetes mellitus currently on insulin who was brought to the emergency department with high glucose levels as well as confusion diagnosed with diabetic ketoacidosis admitted to the intensive care unit managed and stabilized and transferred to a monitored bed 1. Acute metabolic encephalopathy ? Resolved this was secondary to patient DKA 2. Diabetic ketoacidosis ? Patient was managed with IV fluid systemic insulin as well as correction of electrolyte. Resolved started patient on scheduled long-acting and Premeal insulin in addition to sliding scale coverage 4. Acute hypoxic respiratory failure ? Resolved per documentation 5. Paroxysmal A-fib ? Following patient surgery in February 2024 was briefly on apixaban has since been taken off 6. End-stage renal disease ? Patient is on hemodialysis on Tuesdays and Saturdays consult was placed to Dr. Townsend for dialysis orders 7. Nonobstructive coronary artery disease ?catheterization 2008 which showed minimal coronary artery disease and an EF of 65%, last cardiac stress testing noted 11/2022 with no evidence of any ischemia or infarction with EF at that time 52% last cardiology visit 01/29/2024 8. Dyslipidemia ?Patient is on statin therapy, continued at home dose 9. Hypertension ? Blood pressure controlled, home medications continued with dose adjustment as needed 10. BPH with lower urinary obstructive symptoms - Patient treated with finasteride did continue 11. GERD ? On PPI 12. Depression with anxiety ? Patient is on sertraline 13. Chronic congestive heart failure with preserved ejection fraction ? Compensated patient is on furosemide 14. Anemia ? Secondary to chronic disorder monitoring H&H and transfuse if patient becomes symptomatic or hemoglobin falls below 7 15. Polymyalgia rheumatica ? Per history currently not on any treatment 16. Prostate CA ? Apparently in remission treatment as outpatient 16. DVT prophylaxis Subcu heparin 17. Severe protein calorie malnutrition ? Consult placed to dietitian 18. Physical deconditioning ? Requested for PT OT eval and sr. social media & mobile manager to assist with discharge planning Time spent in the patient's overall evaluation,decision-making process, review of diagnostic data, adjustment of management, discussion with other providers, nursing nursing and ancillary staff involved in patient's care documentation, 50 Minutes Charges/Coding Visit Charges Inpatient E&M: 48629 Subs Hosp L3
[2024-05-16 11:35] LABS: Bedside Glucose 396 mg/dL (74-106)
--- NOTE | 2024-05-16 12:42 | PCM.PN.REN ---
Subjective Subjective Resting in bed. Denies any complaints. No overnight events. at bedside. Objective Data Objective Data Vital Signs: Vital Signs Temp Pulse Resp BP Pulse Ox O2 Del Method O2 Flow Rate 97.9 F 80 16 143/69 H 100 Room Air 4 05/16/24 09:08 05/16/24 09:13 05/16/24 09:08 05/16/24 09:08 05/16/24 09:08 05/16/24 12:00 05/16/24 07:22 FiO2 60 05/11/24 10:13 Oxygen Flow Rate (L/min) 4 Oxygen Delivery Method Room Air Weight: 53.1 kg Body Mass Index (BMI) 17.7 Intake & Output: Intake and Output for Last 24 Hours 05/14/24 05/15/24 05/16/24 23:59 23:59 23:59 Intake Total 290 / 590 300 / 540 730 / 730 Output Total 6160 / 6160 170 / 420 950 / 950 Balance -5870 / -5570 130 / 120 -220 / -220 Medical Nutrition Assessment Dietitian: Malnutrition Criteria Met Start: 05/11/24 15:52 Freq: Status: Active Protocol: Document 05/11/24 16:23 SB (Rec: 05/11/24 16:23 SB [id number]) Nutrition Malnutrition Evidence of Yes Malnutrition Exists Malnutrition (severe Acute Illness/Injury ): Evidenced By Suboptimal Energy Intake (Moderate),Weight Loss (Severe ) Clinical Problem Altered Nutrient-Related Laboratory Values Etiology related to endocrine dysfunction/diabetes Signs/Symptoms as evidenced by glucose 952 and >500 Status Active Problem Acute Disease or Injury Related Malnutrition Etiology related to inadequate oral intake Signs/Symptoms as evidenced by PO meeting <50% of estimated nutrition needs x 2 months and 16% unintentional weight loss x 2 months. Status Active Problem Recommendation Dietitian Recommend advanced diet as to consistent carbohydrate Recommendations/ diet. Changes As diet is advanced recommend 240ml PO Nepro TID with meals. Will provide insulin/food education with pt at time of follow-up. Will monitor weight trends. Reviewed and approved by Arlene Guerra RDN, [facility]. Lab / Micro Data 05/13/24 06:44 05/13/24 06:44 Labs: Laboratory Results - last 24 hr 05/15/24 16:38: POC Glucose 239 H 05/15/24 21:40: POC Glucose 52 L 05/15/24 22:26: POC Glucose 104 05/16/24 00:33: POC Glucose 62 L 05/16/24 01:32: POC Glucose 196 H 05/16/24 06:04: POC Glucose 138 H 05/16/24 10:15: POC Glucose 421 H 05/16/24 11:17: POC Glucose 396 H Micro: Microbiology 05/11/24 08:01 Blood Culture (Wb) - Left Hand Blood Culture - Preliminary No growth in 5 days. 05/11/24 07:58 Blood Culture (Wb) - Right Forearm Blood Culture - Preliminary No growth in 5 days. 05/11/24 19:00 Urine, Random Legionella Antigen - Final 05/11/24 19:00 Urine, Random Streptococcus pneumoniae Antigen (M - Final 05/11/24 14:16 Mucosa - Nasopharyngeal Respiratory Panel (PCR) - Final 05/11/24 07:55 Mucosa - Nose SARS-CoV-2, Influenza & RSV (PCR) - Final Physical Exam Narrative no obvious distress. Alert and oriented s1s2 no murmurs lungs clear abdomen soft, nontender no edema AV fistula left arm positive thrill and bruit Assessment & Plan Assessment/Plan (1) End stage renal disease: PLAN: - ESRD; on hemodialysis at [facility] Thursday. No acute indication for [employer] today. Next dialysis will be tomorrow.
[2024-05-16 13:29] LABS: Bedside Glucose 37 mg/dL (74-106)
[2024-05-16 13:29] LABS: Bedside Glucose 38 mg/dL (74-106)
[2024-05-16] MEDS: 0.9% Saline Lock 10 ML Syringe IV (16:22)
[2024-05-16 17:05] LABS: Bedside Glucose 36 mg/dL (74-106)
[2024-05-16] MEDS: Mirtazapine 15 MG Tablet PO (22:21)
[2024-05-16 23:08] LABS: Bedside Glucose 46 mg/dL (74-106)
[2024-05-16 23:08] LABS: Bedside Glucose 127 mg/dL (74-106)
[2024-05-17] VITALS (16 sets, daily range): BP systolic 126–232; BP diastolic 51–117; PULSE 76–89; RESP 16–18; TEMP 36.2–37; O2SAT 92–100; BMI 17.9; BMI 17.2
[2024-05-17] MEDS: Dextrose 10%-Water 250 ML 999 ML IV (02:18)
[2024-05-17 03:26] LABS: Bedside Glucose 160 mg/dL (74-106)
[2024-05-17 03:26] LABS: Bedside Glucose 46 mg/dL (74-106)
[2024-05-17 05:59] LABS: Bedside Glucose 238 mg/dL (74-106)
[2024-05-17 06:20] LABS: Absolute Lymphocyte Count 0.75 X10^3/uL (0.83-4.51); Absolute Neutrophil Count 5.5 X10^3/uL (2.0-7.7); Basophil# 0.05 X10^3/uL; Basophil% 0.7 % (0-1); Eosinophil# 0.18 X10^3/uL; Eosinophils% 2.6 % (0-5); Hematocrit 27.7 % (40-54); Hemoglobin 8.7 g/dL (13.0-16.5); Lymphocyte # 0.75 X10^3/ul (0.83-4.51); Lymphocyte % 10.7 % (19-41); Mean Corp Hgb Conc 31.4 g/dL (32-36); Mean Corpuscular Hgb 28.8 pg (27.0-32.0); Mean Corpuscular Volume 91.7 fL (80-94); Mean Platelet Vol. 11.3 fl (6.2-12.0); Monocyte% 7.2 % (0-10); NRBC Flagged by Analyzer 0 % (0-5); Neutrophil # 5.49 X10^3/uL (2.7-7.7); Neutrophil % 78.5 % (47-70); Platelet Count 323 K/mm3 (150-450); RBC Distribution Width CV 15.1 % (11.6-14.6); Red Blood Count 3.02 M/mm3 (4.6-6.2)
[2024-05-17 06:44] LABS: Anion Gap 9 (5-15); BUN 52 mg/dL (7-18); BUN/Creat Ratio 17.1 RATIO (10-20); Calcium,Total 7.9 mg/dL (8.5-10.1); Chloride 100 mmol/L (98-107); Creatinine, Serum 3.04 mg/dL (0.70-1.30); EST Glomerular Filtration Rate 21 mL/min (>60); Est Glom Filt Rate - Afr Amer 26 mL/min (>60); Estimated Creatinine Clearance 14.72 ml/min; Glucose 244 mg/dL (74-106); Magnesium 2.3 mg/dL (1.6-2.6); Phosphorus 3.4 mg/dL (2.5-4.9); Potassium 4.3 mmol/L (3.5-5.1); Sodium Level 134 mmol/L (136-145)
[2024-05-17 07:22] LABS: Bedside Glucose 159 mg/dL (74-106)
[2024-05-17 08:05] LABS: Bedside Glucose 279 mg/dL (74-106)
[2024-05-17] MEDS: Insulin Glargine-YFGN 100 UNIT/ML Pen 10 UNIT SC ×2 (08:19→16:41)
--- NOTE | 2024-05-17 09:38 | PCM.PN.HOSP ---
Reason for Visit Reason for Visit: Diagnoses Type 1 diabetes mellitus with ketoacidosis without coma (05/11/24) Other specified metabolic disorders (05/11/24) Encephalopathy, unspecified (05/11/24) Interstitial pulmonary disease, unspecified (05/11/24) End stage renal disease (05/11/24) Subjective Subjective Patient seen, blood glucose control still very labile with huge swings of hyperglycemia and hypoglycemia continuous adjustment of patient's insulin therapy made Objective Data Objective Data Vital Signs: Vital Signs Temp Pulse Resp BP Pulse Ox O2 Del Method O2 Flow Rate 98.0 F 85 18 181/78 H 92 Room Air 4 05/17/24 09:15 05/17/24 09:15 05/17/24 09:15 05/17/24 09:15 05/17/24 09:15 05/17/24 09:15 05/16/24 07:22 FiO2 60 05/11/24 10:13 Oxygen Flow Rate (L/min) 4 Oxygen Delivery Method Room Air Weight: 53.7 kg Body Mass Index (BMI) 17.9 Intake & Output: Intake and Output for Last 24 Hours 05/15/24 05/16/24 05/17/24 23:59 23:59 23:59 Intake Total 300 / 540 1480 / 1830 1000 / 1000 Output Total 170 / 420 950 / 950 Balance 130 / 120 530 / 880 1000 / 1000 Medical Nutrition Assessment Dietitian: Malnutrition Criteria Met Start: 05/11/24 15:52 Freq: Status: Active Protocol: Document 05/11/24 16:23 SB (Rec: 05/11/24 16:23 SB [id number]) Nutrition Malnutrition Evidence of Yes Malnutrition Exists Malnutrition (severe Acute Illness/Injury ): Evidenced By Suboptimal Energy Intake (Moderate),Weight Loss (Severe ) Clinical Problem Altered Nutrient-Related Laboratory Values Etiology related to endocrine dysfunction/diabetes Signs/Symptoms as evidenced by glucose 952 and >500 Status Active Problem Acute Disease or Injury Related Malnutrition Etiology related to inadequate oral intake Signs/Symptoms as evidenced by PO meeting <50% of estimated nutrition needs x 2 months and 16% unintentional weight loss x 2 months. Status Active Problem Recommendation Dietitian Recommend advanced diet as to consistent carbohydrate Recommendations/ diet. Changes As diet is advanced recommend 240ml PO Nepro TID with meals. Will provide insulin/food education with pt at time of follow-up. Will monitor weight trends. Reviewed and approved by Arlene Guerra, GINETTE, [facility]N. Lab / Micro Data 05/17/24 05:17 05/17/24 05:17 Labs: Laboratory Results - last 24 hr 05/13/24 16:18: POC Glucose 37 L* 05/13/24 16:21: POC Glucose 38 L* 05/16/24 10:15: POC Glucose 421 H 05/16/24 11:17: POC Glucose 396 H 05/16/24 16:16: POC Glucose 36 L* 05/16/24 16:41: POC Glucose 159 H 05/16/24 20:57: POC Glucose 46 L 05/16/24 21:38: POC Glucose 127 H 05/17/24 02:10: POC Glucose 46 L 05/17/24 03:00: POC Glucose 160 H 05/17/24 05:17: WBC 7.0, RBC 3.02 L, Hgb 8.7 L, Hct 27.7 L, MCV 91.7, MCH 28.8, MCHC 31.4 L, RDW Std Deviation 51.0 H, RDW Coeff of [place] 15.1 H, Plt Count 323, MPV 11.3, Immature Gran % (Auto) 0.300, Neut % (Auto) 78.5 H, Lymph % (Auto) 10.7 L, [place] % (Auto) 7.2, Eos % (Auto) 2.6, Baso % (Auto) 0.7, Absolute Neuts (auto) 5.5, Absolute Lymphs (auto) 0.75 L, Nucleated RBC % 0, Sodium 134 L, Potassium 4.3, Chloride 100, Carbon Dioxide 25.0, Anion Gap 9, BUN 52 H, Creatinine 3.04 H, Estim Creat Clear Calc 14.72, Est GFR (MDRD) Af Amer 26 L, Est GFR (MDRD) Non-Af 21 L, BUN/Creatinine Ratio 17.1, Glucose 244 H, Calcium 7.9 L, Phosphorus 3.4, Magnesium 2.3 05/17/24 05:42: POC Glucose 238 H 05/17/24 07:47: POC Glucose 279 H Micro: Microbiology 05/11/24 08:01 Blood Culture (Wb) - Left Hand Blood Culture - Final No growth in 5 days. 05/11/24 07:58 Blood Culture (Wb) - Right Forearm Blood Culture - Final No growth in 5 days. 05/11/24 19:00 Urine, Random Legionella Antigen - Final 05/11/24 19:00 Urine, Random Streptococcus pneumoniae Antigen (M - Final 05/11/24 14:16 Mucosa - Nasopharyngeal Respiratory Panel (PCR) - Final 05/11/24 07:55 Mucosa - Nose SARS-CoV-2, Influenza & RSV (PCR) - Final Physical Exam Narrative GENERAL: cooperative HEENT: Atraumatic; normocephalic EYES; Anicteric, Normal Conjunctiva NECK; supple, normal thyroid, RESPIRATORY: Diminished to auscultation CARDIOVASCULAR: Regular S1 S2, GI: soft, normoactive bowel sounds, : No Renal angle tenderness; EXTREMITIES: No edema, no clubbing, MUSCULOSKELETAL: no muscle wasting NEURO: Awake; no lateralizing signs. SKIN: No Rash PSYCH; Flat affect Assessment & Plan Assessment/Plan (1) Ketosis: (2) Interstitial pneumonia of both lungs: PLAN: Plan Patient is an 78-year-old gentleman with history of end-stage renal disease on hemodialysis, diabetes mellitus currently on insulin who was brought to the emergency department with high glucose levels as well as confusion diagnosed with diabetic ketoacidosis admitted to the intensive care unit managed and stabilized and transferred to a monitored bed 1. Acute metabolic encephalopathy ? Resolved this was secondary to patient DKA 2. Diabetic ketoacidosis ? Patient was managed with IV fluid systemic insulin as well as correction of electrolyte. Resolved started patient on scheduled long-acting and Premeal insulin in addition to sliding scale coverage ? 05/17/2024; patient seen, blood glucose control still very labile with huge swings of hyperglycemia and hypoglycemia continuous adjustment of patient's insulin therapy made 4. Acute hypoxic respiratory failure ? Resolved per documentation 5. Paroxysmal A-fib ? Following patient surgery in February 2024 was briefly on apixaban has since been taken off 6. End-stage renal disease ? Patient is on hemodialysis on Tuesdays and Saturdays consult was placed to Dr. Townsend for dialysis orders 7. Nonobstructive coronary artery disease ?catheterization 2008 which showed minimal coronary artery disease and an EF of 65%, last cardiac stress testing noted 11/2022 with no evidence of any ischemia or infarction with EF at that time 52% last cardiology visit 01/29/2024 8. Dyslipidemia ?Patient is on statin therapy, continued at home dose 9. Hypertension ? Blood pressure controlled, home medications continued with dose adjustment as needed 10. BPH with lower urinary obstructive symptoms - Patient treated with finasteride did continue 11. GERD ? On PPI 12. Depression with anxiety ? Patient is on sertraline 13. Chronic congestive heart failure with preserved ejection fraction ? Compensated patient is on furosemide 14. Anemia ? Secondary to chronic disorder monitoring H&H and transfuse if patient becomes symptomatic or hemoglobin falls below 7 15. Polymyalgia rheumatica ? Per history currently not on any treatment 16. Prostate CA ? Apparently in remission treatment as outpatient 16. DVT prophylaxis Subcu heparin 17. Severe protein calorie malnutrition ? Consult placed to dietitian 18. Physical deconditioning ? Requested for PT OT eval and social organization professor to assist with discharge planning Time spent in the patient's overall evaluation,decision-making process, review of diagnostic data, adjustment of management, discussion with other providers, nursing nursing and ancillary staff involved in patient's care documentation, 40 Minutes Charges/Coding Visit Charges Inpatient E&M: 79574 Subs Hosp L2
[2024-05-17] MEDS: PureFlow B 2K Dialysis Soln 1 BAG 6 BAG PF (11:46)
[2024-05-17] MEDS: 0.9% Normal Saline 1,000 ML IV.SOLN. 1000 ML OPERA.SITE (11:46)
[2024-05-17 12:10] LABS: Bedside Glucose 287 mg/dL (74-106)
[2024-05-17] MEDS: Metoprolol Tartrate 25 MG Tablet PO ×2 (13:01→20:53)
[2024-05-17] MEDS: amLODIPine 5 MG Tablet PO (13:02)
[2024-05-17] MEDS: Insulin Lispro 100 UNIT/ML INSULN.PEN SC ×4 (13:02→16:40)
[2024-05-17] MEDS: Heparin Injection (Vial) 5,000 UNIT/ML VIAL 5000 UNIT SC ×2 (13:02→20:54)
--- NOTE | 2024-05-17 13:27 | PN.RENAL_ITS ---
Subjective Subjective seen on HD Objective Data Objective Data Vital Signs: Vital Signs Temp Pulse Resp BP Pulse Ox O2 Del Method O2 Flow Rate 98.0 F 82 18 185/88 H 99 Room Air 4 05/17/24 12:42 05/17/24 13:01 05/17/24 12:42 05/17/24 12:42 05/17/24 12:42 05/17/24 12:42 05/16/24 07:22 FiO2 60 05/11/24 10:13 Oxygen Flow Rate (L/min) 4 Oxygen Delivery Method Room Air Weight: 51.7 kg Body Mass Index (BMI) 17.2 Intake & Output: Intake and Output for Last 24 Hours 05/15/24 05/16/24 05/17/24 23:59 23:59 23:59 Intake Total 300 / 540 1480 / 1830 1000 / 1000 Output Total 170 / 420 950 / 950 2000 / 2000 Balance 130 / 120 530 / 880 -1000 / -1000 Medical Nutrition Assessment Dietitian: Malnutrition Criteria Met Start: 05/11/24 15:52 Freq: Status: Active Protocol: Document 05/11/24 16:23 SB (Rec: 05/11/24 16:23 SB [id number]) Nutrition Malnutrition Evidence of Yes Malnutrition Exists Malnutrition (severe Acute Illness/Injury ): Evidenced By Suboptimal Energy Intake (Moderate),Weight Loss (Severe ) Clinical Problem Altered Nutrient-Related Laboratory Values Etiology related to endocrine dysfunction/diabetes Signs/Symptoms as evidenced by glucose 952 and >500 Status Active Problem Acute Disease or Injury Related Malnutrition Etiology related to inadequate oral intake Signs/Symptoms as evidenced by PO meeting <50% of estimated nutrition needs x 2 months and 16% unintentional weight loss x 2 months. Status Active Problem Recommendation Dietitian Recommend advanced diet as to consistent carbohydrate Recommendations/ diet. Changes As diet is advanced recommend 240ml PO Nepro TID with meals. Will provide insulin/food education with pt at time of follow-up. Will monitor weight trends. Reviewed and approved by Arlene Guerra RDN, [facility]. Lab / Micro Data 05/17/24 05:17 05/17/24 05:17 Labs: Laboratory Results - last 24 hr 05/13/24 16:18: POC Glucose 37 L* 05/13/24 16:21: POC Glucose 38 L* 05/16/24 16:16: POC Glucose 36 L* 05/16/24 16:41: POC Glucose 159 H 05/16/24 20:57: POC Glucose 46 L 05/16/24 21:38: POC Glucose 127 H 05/17/24 02:10: POC Glucose 46 L 05/17/24 03:00: POC Glucose 160 H 05/17/24 05:17: WBC 7.0, RBC 3.02 L, Hgb 8.7 L, Hct 27.7 L, MCV 91.7, MCH 28.8, MCHC 31.4 L, RDW Std Deviation 51.0 H, RDW Coeff of Russell 15.1 H, Plt Count 323, MPV 11.3, Immature Gran % (Auto) 0.300, Neut % (Auto) 78.5 H, Lymph % (Auto) 10.7 L, [place] % (Auto) 7.2, Eos % (Auto) 2.6, Baso % (Auto) 0.7, Absolute Neuts (auto) 5.5, Absolute Lymphs (auto) 0.75 L, Nucleated RBC % 0, Sodium 134 L, Potassium 4.3, Chloride 100, Carbon Dioxide 25.0, Anion Gap 9, BUN 52 H, C reatinine 3.04 H, Estim Creat Clear Calc 14.72, Est GFR (MDRD) Af Amer 26 L, Est GFR (MDRD) Non-Af 21 L, BUN/Creatinine Ratio 17.1, Glucose 244 H, Calcium 7.9 L, Phosphorus 3.4, Magnesium 2.3 05/17/24 05:42: POC Glucose 238 H 05/17/24 07:47: POC Glucose 279 H 05/17/24 11:33: POC Glucose 287 H Micro: Microbiology 05/11/24 08:01 Blood Culture (Wb) - Left Hand Blood Culture - Final No growth in 5 days. 05/11/24 07:58 Blood Culture (Wb) - Right Forearm Blood Culture - Final No growth in 5 days. 05/11/24 19:00 Urine, Random Legionella Antigen - Final 05/11/24 19:00 Urine, Random Streptococcus pneumoniae Antigen (M - Final 05/11/24 14:16 Mucosa - Nasopharyngeal Respiratory Panel (PCR) - Final 05/11/24 07:55 Mucosa - Nose SARS-CoV-2, Influenza & RSV (PCR) - Final Physical Exam Narrative no obvious distress. Alert and oriented s1s2 no murmurs lungs clear abdomen soft, nontender no edema AV fistula left arm positive thrill and bruit Assessment & Plan Assessment/Plan (1) End stage renal disease: PLAN: - ESRD; on hemodialysis at [facility] Thursday. seen on HD today. see orders/flowsheets
--- NOTE | 2024-05-17 16:00 | CASEMGMT ---
GONZALES called Paulino ROLON at the [facility] to check on patient's service connection. Per Paulino patient is not service connected. Patient would only be approved for SNF if he went on Hospice. Patient could receive non skilled services at home through the [place]. Paulino asked that GONZALES let her know about patient's discharge plan. Felisha DICKSON
--- NOTE | 2024-05-17 16:31 | CASEMGMT ---
RN CM updated that patient will discharge tomorrow by hospitalist. RN CM in to discuss needs at discharge with a and family friend. states that the patient will discharge home. RN CM discuss HHC at discharge. Patient and agreeable to HHC and prefer [facility] as they have had them in the past. called daughter and this RN CM spoke to daughter and updated to plan. Daughter agreeable to plan. Patient, , and daughter had no further questions or concerns. RN CM called and left message for [facility] with referral. CM will continue to follow this patient and plan for safe discharge.
[2024-05-17 17:05] LABS: Bedside Glucose 206 mg/dL (74-106)
[2024-05-17] MEDS: Mirtazapine 15 MG Tablet PO (20:53)
[2024-05-17 21:23] LABS: Bedside Glucose 96 mg/dL (74-106)
[2024-05-18 05:00] VITALS: BP 159/72; PULSE 80; RESP 18; TEMP 36.8; O2SAT 92
[2024-05-18 05:00] LABS: Absolute Lymphocyte Count 0.85 X10^3/uL (0.83-4.51); Absolute Neutrophil Count 3.6 X10^3/uL (2.0-7.7); Basophil# 0.06 X10^3/uL; Basophil% 1.1 % (0-1); Eosinophil# 0.24 X10^3/uL; Eosinophils% 4.6 % (0-5); Hematocrit 29.5 % (40-54); Hemoglobin 9.3 g/dL (13.0-16.5); Lymphocyte # 0.85 X10^3/ul (0.83-4.51); Lymphocyte % 16.2 % (19-41); Mean Corp Hgb Conc 31.5 g/dL (32-36); Mean Corpuscular Hgb 29.1 pg (27.0-32.0); Mean Corpuscular Volume 92.2 fL (80-94); Mean Platelet Vol. 10.9 fl (6.2-12.0); Monocyte# 0.52 X10^3/uL; Monocyte% 9.9 % (0-10); NRBC Flagged by Analyzer 0 % (0-5); Neutrophil # 3.56 X10^3/uL (2.7-7.7); Platelet Count 311 K/mm3 (150-450); RBC Distribution Width CV 15.3 % (11.6-14.6); RBC Distribution Width SD 51.8 fl (35.1-43.9); White Blood Count 5.2 K/mm3 (4.4-11.0)
[2024-05-18 05:25] VITALS: BMI 17.9
[2024-05-18 05:26] LABS: Anion Gap 7 (5-15); BUN 42 mg/dL (7-18); BUN/Creat Ratio 17.9 RATIO (10-20); Calcium,Total 8.3 mg/dL (8.5-10.1); Chloride 101 mmol/L (98-107); Creatinine, Serum 2.35 mg/dL (0.70-1.30); EST Glomerular Filtration Rate 29 mL/min (>60); Est Glom Filt Rate - Afr Amer 35 mL/min (>60); Estimated Creatinine Clearance 18.33 ml/min; Glucose 256 mg/dL (74-106); Potassium 4.5 mmol/L (3.5-5.1); Sodium Level 134 mmol/L (136-145)
[2024-05-18 07:20] VITALS: O2SAT 96
[2024-05-18] MEDS: Insulin Lispro 100 UNIT/ML INSULN.PEN SC ×3 (08:03→11:07)
[2024-05-18] MEDS: Insulin Glargine-YFGN 100 UNIT/ML Pen 10 UNIT SC (08:04)
[2024-05-18] MEDS: amLODIPine 5 MG Tablet PO (08:09)
[2024-05-18 08:10] VITALS: BP 163/60; PULSE 76; PULSE 79; RESP 18; TEMP 36.7; O2SAT 95
[2024-05-18] MEDS: Metoprolol Tartrate 25 MG Tablet PO (08:10)
[2024-05-18] MEDS: Heparin Injection (Vial) 5,000 UNIT/ML VIAL 5000 UNIT SC (08:10)
[2024-05-18 08:33] LABS: Bedside Glucose 301 mg/dL (74-106)
--- NOTE | 2024-05-18 10:06 | CASEMGMT ---
Addendum entered by Courtney Vázquez 05/18/24 11:02: NADEEM VINCENT updated by hospitalist and provided script for Nepro Nutritional Supplement. NADEEM VINCENT in to discuss Nepro with patient and family and provided resources for additional assistance from Nepro website for reimbursement. and daughter had no further questions or concerns. Original Note: NADEEM VINCENT updated by [facility] that they are able to accept the patient with planned start of care. NADEEM VINCENT updated [facility] that patient has HD in the morning and requested an afternoon start of care. NADEEM VINCENT in to updated patient and family. NADEEM VINCENT explained discharge process to family and that hospitalist would be rounding soon to see patient with anticipated discharge today. Patient and family had no further questions or concerns. CM will continue to follow this patient and plan for safe discharge.
--- NOTE | 2024-05-18 10:25 | PCM.DC.SUM ---
Providers Date of Admission: 05/11/24 Date of Discharge: 05/18/24 Primary Care Physician: Dr. Cesar Keenan MD Consultations 05/11/24 10:57 Consult: Material Analyst / Pulmonary Medicine Routine Consulting Provider: Intensivists/Pulmonary Med Reason for Consult: pneumonia, resp failure EMERGENT Consult: No Notified: Yes Date Notified: 05/11/24 Time Notified: 10:08 Method of Notification: Verbal Consult: Nephrology Routine Consulting Provider: Maria Guadalupe Townsend Reason for Consult: ESRD EMERGENT Consult: No Notified: Yes Date Notified: 05/11/24 Time Notified: 10:08 Method of Notification: Verbal Reason For Visit: HYPEROSMOLAR NONKETOTIC, ACUTE ENCEPHALOPATHY Diagnosis Discharge Diagnosis (1) End stage renal disease: Status: Chronic Code(s): N18.6 - End stage renal disease Plan Patient is an 78-year-old gentleman with history of end-stage renal disease on hemodialysis, diabetes mellitus currently on insulin who was brought to the emergency department with high glucose levels as well as confusion diagnosed with diabetic ketoacidosis admitted to the intensive care unit managed and stabilized and transferred to a monitored bed 1. Acute metabolic encephalopathy ? Resolved this was secondary to patient DKA 2. Diabetic ketoacidosis ? Patient was managed with IV fluid systemic insulin as well as correction of electrolyte. Resolved started patient on scheduled long-acting and Premeal insulin in addition to sliding scale coverage ? 05/17/2024; patient seen, blood glucose control still very labile with huge swings of hyperglycemia and hypoglycemia continuous adjustment of patient's insulin therapy made 4. Acute hypoxic respiratory failure ? Resolved per documentation 5. Paroxysmal A-fib ? Following patient surgery in February 2024 was briefly on apixaban has since been taken off 6. End-stage renal disease ? Patient is on hemodialysis on Tuesdays and Saturdays consult was placed to Dr. Townsend for dialysis orders 7. Nonobstructive coronary artery disease ?catheterization 2008 which showed minimal coronary artery disease and an EF of 65%, last cardiac stress testing noted 11/2022 with no evidence of any ischemia or infarction with EF at that time 52% last cardiology visit 01/29/2024 8. Dyslipidemia ?Patient is on statin therapy, continued at home dose 9. Hypertension ? Blood pressure controlled, home medications continued with dose adjustment as needed 10. BPH with lower urinary obstructive symptoms - Patient treated with finasteride did continue 11. GERD ? On PPI 12. Depression with anxiety ? Patient is on sertraline 13. Chronic congestive heart failure with preserved ejection fraction ? Compensated patient is on furosemide 14. Anemia ? Secondary to chronic disorder monitoring H&H and transfuse if patient becomes symptomatic or hemoglobin falls below 7 15. Polymyalgia rheumatica ? Per history currently not on any treatment 16. Prostate CA ? Apparently in remission treatment as outpatient 16. DVT prophylaxis Subcu heparin 17. Severe protein calorie malnutrition ? Consult placed to dietitian 18. Physical deconditioning ? Requested for PT OT eval and marriage and family social worker to assist with discharge planning Time spent in the patient's overall evaluation,decision-making process, review of diagnostic data, adjustment of management, discussion with other providers, nursing nursing and ancillary staff involved in patient's care documentation, 40 Minutes Medications at Discharge Home Medications aspirin 81 mg tablet,delayed release (Adult Low Dose Aspirin) 81 mg PO QDAY 06/15/17 finasteride 5 mg tablet (Proscar) 5 mg PO DAILY 06/16/17 flash glucose scanning reader (Precision BiopsyStyle Tani 2 Hurley) #2 ea 03/28/22 flash glucose sensor (FreeStyle Tani 2 Sensor kit) #2 ea 03/28/22 cholecalciferol (vitamin D3) 125 mcg (5,000 unit) capsule 125 mcg PO DAILY 05/05/22 PureFlow B 2K Dialysis Soln 6 bag perfusion UD ##0 12/12/22 acetaminophen 325 mg tablet 650 mg (2 x 325 mg) PO Q4H PRN PRN Fever, pain 1-01/20 #0 tabs 12/12/22 insulin lispro 100 unit/mL subcutaneous pen (Humalog KwikPen (U-100) Insulin) See Protocol subcut ACHS 01/14/23 calcium 600 mg (as carbonate)-vitamin D3 10 mcg (400 unit) capsule 1 cap PO DAILY 01/23/23 amlodipine 5 mg tablet 5 mg PO DAILY 01/26/23 foam bandage 4 X 4 (Mepilex) #5 ea 01/29/23 vitamins A,C,E-vmks-iwdhyi 4,296 mcg-226 mg-90 mg capsule (ICaps AREDS) 1 cap PO DAILY #90 caps 02/27/23 clonidine HCl 0.1 mg tablet 0.1 mg PO BID 01/29/24 folic acid 400 mcg tablet 400 mcg PO DAILY 01/29/24 furosemide 40 mg tablet 40 mg PO DAILY weight gain 01/29/24 gabapentin 300 mg capsule 300 mg PO TID 01/29/24 magnesium 250 mg tablet 250 mg PO QDAY 01/29/24 pantoprazole 40 mg tablet,delayed release 40 mg PO BID 01/29/24 renal multivitamin 1 tab PO DAILY 01/29/24 tamsulosin 0.4 mg capsule 0.4 mg PO QDAY 01/29/24 atorvastatin 40 mg tablet 40 mg PO QHS 02/24/24 metoprolol tartrate 25 mg tablet 25 mg PO DAILY 02/24/24 aluminum-mag hydroxide-simethicone 400 mg-400 mg-40 mg/5 mL oral susp (Mag-Al Plus Extra Strength) 30 ml PO Q6H PRN PRN Gastric Burning #0 mL 02/28/24 ferrous sulfate 325 mg (65 mg iron) tablet (Iron (ferrous sulfate)) 325 mg PO DAILY #30 tabs 02/28/24 melatonin 3 mg tablet 3 mg PO QHS PRN PRN Insomnia #0 tabs 02/28/24 sertraline 50 mg tablet 50 mg PO DAILY mood 02/29/24 bisacodyl 5 mg tablet,delayed release 10 mg (2 x 5 mg) PO DAILY #0 tabs 03/02/24 sennosides 8.6 mg-docusate sodium 50 mg tablet (Stimulant Laxative Plus) 2 tab PO BID #0 tabs 03/02/24 mirtazapine 15 mg tablet (Remeron) 3.75 mg (1/4 x 15 mg) PO QHS #30 tabs 04/29/24 insulin glargine 100 unit/mL (3 mL) subcutaneous pen (Lantus Solostar U-100 Insulin) 20 unit (0.2 mL) subcut QPM DM #15 mL 05/18/24 nut.tx.imp.renal fxn,lac-reduc 0.08 gram-1.8 kcal/mL oral liquid (Nepro Carb Steady) 237 ml PO .qid 24 days #5,688 mL 05/18/24 Physical Exam Narrative GENERAL: cooperative HEENT: Atraumatic; normocephalic EYES; Anicteric, Normal Conjunctiva NECK; supple, normal thyroid, RESPIRATORY: Diminished to auscultation CARDIOVASCULAR: Regular S1 S2, GI: soft, normoactive bowel sounds, : No Renal angle tenderness; EXTREMITIES: No edema, no clubbing, MUSCULOSKELETAL: no muscle wasting NEURO: Awake; no lateralizing signs. SKIN: No Rash PSYCH; Flat affect Medical Records Data Medical Nutrition Assessment Dietitian: Malnutrition Criteria Met Start: 05/11/24 15:52 Freq: Status: Active Protocol: Document 05/11/24 16:23 SB (Rec: 05/11/24 16:23 SB [id number]) Nutrition Malnutrition Evidence of Yes Malnutrition Exists Malnutrition (severe Acute Illness/Injury ): Evidenced By Suboptimal Energy Intake (Moderate),Weight Loss (Severe ) Clinical Problem Altered Nutrient-Related Laboratory Values Etiology related to endocrine dysfunction/diabetes Signs/Symptoms as evidenced by glucose 952 and >500 Status Active Problem Acute Disease or Injury Related Malnutrition Etiology related to inadequate oral intake Signs/Symptoms as evidenced by PO meeting <50% of estimated nutrition needs x 2 months and 16% unintentional weight loss x 2 months. Status Active Problem Recommendation Dietitian Recommend advanced diet as to consistent carbohydrate Recommendations/ diet. Changes As diet is advanced recommend 240ml PO Nepro TID with meals. Will provide insulin/food education with pt at time of follow-up. Will monitor weight trends. Reviewed and approved by Arlene Guerra RDN, [place]. Weight / BMI Weight Weight: 53.3 kg Body Mass Index (BMI) 17.9 ABG / Lab / Microbiology Data 05/18/24 04:18 05/18/24 04:18 Laboratory: Laboratory Results - last 24 hr 05/17/24 11:33: POC Glucose 287 H 05/17/24 16:38: POC Glucose 206 H 05/17/24 20:56: POC Glucose 96 05/18/24 04:18: WBC 5.2, RBC 3.20 L, Hgb 9.3 L, Hct 29.5 L, MCV 92.2, MCH 29.1, MCHC 31.5 L, RDW Std Deviation 51.8 H, RDW Coeff of Russell 15.3 H, Plt Count 311, MPV 10.9, Immature Gran % (Auto) 0.200, Neut % (Auto) 68.0, Lymph % (Auto) 16.2 L, [place] % (Auto) 9.9, Eos % (Auto) 4.6, Baso % (Auto) 1.1 H, Absolute Neuts (auto) 3.6, Absolute Lymphs (auto) 0.85, Nucleated RBC % 0, Sodium 134 L, Potassium 4.5, Chloride 101, Carbon Dioxide 26.0, Anion Gap 7, BUN 42 H, Creatinine 2.35 H, Estim Creat Clear Calc 18.33, Est GFR (MDRD) Af Amer 35 L, Est GFR (MDRD) Non-Af 29 L, BUN/Creatinine Ratio 17.9, Glucose 256 H, Calcium 8.3 L 05/18/24 08:02: POC Glucose 301 H Microbiology: Microbiology 05/11/24 08:01 Blood Culture (Wb) - Left Hand Blood Culture - Final No growth in 5 days. 05/11/24 07:58 Blood Culture (Wb) - Right Forearm Blood Culture - Final No growth in 5 days. 05/11/24 19:00 Urine, Random Legionella Antigen - Final 05/11/24 19:00 Urine, Random Streptococcus pneumoniae Antigen (M - Final 05/11/24 14:16 Mucosa - Nasopharyngeal Respiratory Panel (PCR) - Final 05/11/24 07:55 Mucosa - Nose SARS-CoV-2, Influenza & RSV (PCR) - Final D/C Instructions Discharge Diet: 1800 Calorie Control Diet and Renal Diet Discharge Activity: Return to Normal Activity Call your doctor if you observe: Fever of 101 or Higher, Shortness of breath, Fainting spells and Chest pain DC O2, CPAP, BIPAP Needs PSN CPAP & BiPAP: BiPAP & CPAP Settings per PSN Mode BiPAP 05/11/24 12:02 Bipap Delivery Device Face Mask 05/11/24 10:13 BiPAP Inspiratory Pressure 12 05/11/24 10:13 BiPAP Expiratory Pressure 8 05/11/24 10:13 BiPAP Rate 12 05/11/24 10:13 Fraction of Inspired Oxygen ( 60 05/11/24 10:13 FIO2) Home O2 Discharge instructions: No Meaningful Use Info Meaningful Use Meaningful Use Diagnoses (Choose all that apply): None applicable Ischemic Stroke Statin Dosing Therapy Reference: STATIN DOSE THERAPY REFERENCE: * Patients > 75 years receive moderate or high dose statin therapy. * Patients 75 years or YOUNGER should receive HIGH intensity statin dose unless contraindicated. You will be required to document reason for non-treatment if statin daily dose does not meet guidelines. HIGH DOSE STATIN THERAPY DAILY Atorvastatin > than or = to 40 mg Rosuvastatin > than or = to 20 mg Amlodipine + Atorvastatin > than or = to 2.5/40 mg Ezetimibe + Simvastatin 10/80 mg Simvastatin 80mg Discharge Plan Admission Admit Date/Time: 05/11/24 10:00 Attending Provider: Demarco Kang Primary Care Provider: Cesar Keenan Consulting Providers: Maria Guadalupe Townsend; Rayshawn Owusu Discharge Orders/Prescriptions Prescriptions: New Nepro Carb Steady 0.08 gram-1.8 kcal/mL liquid 237 ml PO .qid 24 Days Qty: 5688 0RF Continued aspirin [Adult Low Dose Aspirin] 81 mg tablet,delayed release (DR/EC) 81 mg PO QDAY finasteride [Proscar] 5 mg tablet 5 mg PO DAILY folic acid 400 mcg tablet 400 mcg PO DAILY (DME) FreeStyle Tani 2 Sensor Kit See Rx Instructions .Route Qty: 2 3RF Rx Instructions: As directed (DME) FreeStyle Tani 2 Hurley Misc See Rx Instructions .Route Qty: 2 3RF Rx Instructions: As directed cholecalciferol (vitamin D3) 125 mcg (5,000 unit) capsule 125 mcg PO DAILY ICaps AREDS 4,296 mcg-226 mg-90 mg capsule 1 cap PO DAILY Qty: 90 2RF insulin lispro [Humalog KwikPen Insulin] 100 unit/mL insulin pen See Protocol subcut ACHS Protocol: 4. Sliding Scale Insulin High-Med Dosing Condition: 150-199 mg/dl = 2 units Condition: 200-259 mg/dl = 4 units Condition: 260-324 mg/dl = 6 units Condition: 325-374 mg/dl = 8 units Condition: 375-409 mg/dl = 10 units Condition: 410-449 mg/dl = 11 units Condition: Greater than 449 call physician Protocol Text: - Use for Total Daily Dose of Insulin 56-80 units - Patient who are insulin resistant or septic HIGH MEDIUM DOSING ALGORITHM calcium carbonate-vitamin D3 600 mg-10 mcg (400 unit) capsule 1 cap PO DAILY furosemide 40 mg tablet 40 mg PO DAILY amlodipine 5 mg tablet 5 mg PO DAILY gabapentin 300 mg capsule 300 mg PO TID Rx Instructions: Give after Dialysis tamsulosin 0.4 mg capsule 0.4 mg PO QDAY pantoprazole 40 mg tablet,delayed release (DR/EC) 40 mg PO BID renal multivitamin 1 tab PO DAILY clonidine HCl 0.1 mg tablet 0.1 mg PO BID magnesium 250 mg tablet 250 mg PO QDAY mirtazapine [Remeron] 15 mg tablet 3.75 mg PO QHS Qty: 30 1RF acetaminophen 325 mg Tablet 650 mg PO Q4H PRN PRN (Reason: Fever, pain 1-01/20) Qty: 0 0RF Pureflow B 2k Dialysis Soln 6 bag perfusion UD Qty: 0 0RF sertraline 50 mg tablet 50 mg PO DAILY bisacodyl 5 mg Tablet,Delayed Release (Dr/Ec) 10 mg PO DAILY Qty: 0 0RF Rx Instructions: Daily for 3 more days and then as needed sennosides-docusate sodium [Stimulant Laxative Plus] 8.6-50 mg Tablet 2 tab PO BID Qty: 0 0RF atorvastatin 40 mg tablet 40 mg PO QHS metoprolol tartrate 25 mg tablet 25 mg PO DAILY Rx Instructions: Hold for SBP less than 130 melatonin 3 mg Tablet 3 mg PO QHS PRN PRN (Reason: Insomnia) Qty: 0 0RF alum-mag hydroxide-simeth [Mag-Al Plus Extra Strength] 400-400-40 mg/5 mL Suspension 30 ml PO Q6H PRN PRN (Reason: Gastric Burning) Qty: 0 0RF ferrous sulfate [Iron (ferrous sulfate)] 325 mg (65 mg iron) tablet 325 mg PO DAILY Qty: 30 0RF (DME) Mepilex 4 X 4 bandage See Rx Instructions .Route Qty: 5 2RF Rx Instructions: As directed Changed insulin glargine [Lantus Solostar U-100 Insulin] 100 unit/mL (3 mL) insulin pen 20 unit SC QPM Qty: 15 0RF Referrals / Follow Up: Cesar Keenan MD [Primary Care Provider] - Within 1 Week Disposition Disposition (needs filled in before D/C Order can be placed): Home Health Service Charges/Coding Visit Charges Inpatient E&M: 55832 Disch Hosp >30min
[2024-05-18 18:15] LABS: Bedside Glucose 211 mg/dL (74-106)
== END 2024-05-18 11:45 | disposition home health service (06) | DRG 291 ==
LOC: ED 09:06 → ICU 15:45 → PCU 05-14 16:05
PROVIDERS: Internal Medicine Critical Care Medicine; Admitting Provider Internal Medicine; Emergency Provider Emergency Medicine; PCP Internal Medicine; Visit Provider Internal Medicine
DX: I13.2 Hypertensive heart and chronic kidney disease with heart failure and with stage 5 chronic kidney disease, or end stage renal disease (principal); E10.10 Type 1 diabetes mellitus with ketoacidosis without coma; G93.41 Metabolic encephalopathy; E43 Unspecified severe protein-calorie malnutrition; J96.01 Acute respiratory failure with hypoxia; J18.9 Pneumonia, unspecified organism; N18.6 End stage renal disease; E87.1 Hypo-osmolality and hyponatremia; J44.0 Chronic obstructive pulmonary disease with (acute) lower respiratory infection; J84.9 Interstitial pulmonary disease, unspecified; Z68.1 Body mass index [BMI] 19.9 or less, adult; N13.8 Other obstructive and reflux uropathy; D63.1 Anemia in chronic kidney disease; C61 Malignant neoplasm of prostate; I35.0 Nonrheumatic aortic (valve) stenosis; I50.42 Chronic combined systolic (congestive) and diastolic (congestive) heart failure; E10.42 Type 1 diabetes mellitus with diabetic polyneuropathy; M35.3 Polymyalgia rheumatica; I48.0 Paroxysmal atrial fibrillation; J98.01 Acute bronchospasm; I25.10 Atherosclerotic heart disease of native coronary artery without angina pectoris; E78.2 Mixed hyperlipidemia; Z79.4 Long term (current) use of insulin; F17.210 Nicotine dependence, cigarettes, uncomplicated; Z99.2 Dependence on renal dialysis; E10.22 Type 1 diabetes mellitus with diabetic chronic kidney disease; K21.9 Gastro-esophageal reflux disease without esophagitis; F41.8 Other specified anxiety disorders; R54 Age-related physical debility; E87.70 Fluid overload, unspecified; E87.8 Other disorders of electrolyte and fluid balance, not elsewhere classified; E10.65 Type 1 diabetes mellitus with hyperglycemia; I25.2 Old myocardial infarction; R01.1 Cardiac murmur, unspecified; G89.29 Other chronic pain; Z79.01 Long term (current) use of anticoagulants; Z79.2 Long term (current) use of antibiotics; Z82.62 Family history of osteoporosis; N13.9 Obstructive and reflux uropathy, unspecified; N40.1 Benign prostatic hyperplasia with lower urinary tract symptoms; Z88.8 Allergy status to other drugs, medicaments and biological substances; Z88.1 Allergy status to other antibiotic agents; R45.1 Restlessness and agitation; Z87.81 Personal history of (healed) traumatic fracture; Z96.649 Presence of unspecified artificial hip joint; Z79.82 Long term (current) use of aspirin; Z96.0 Presence of urogenital implants; G47.00 Insomnia, unspecified; Z79.02 Long term (current) use of antithrombotics/antiplatelets; Z79.899 Other long term (current) drug therapy; R41.82 Altered mental status, unspecified; Z11.52 Encounter for screening for COVID-19
CPT/HCPCS: 36415; 36600; 70450; 71045; 71046; 80048; 81001; 82009; 82803; 82947; 82962; 83735; 83880; 83930; 84100; 84145; 85025; 87040; 87449; 87631; 87633; 90937; 93005; 94002; 94640; 94762; 97110; 97116; 97162; 97166; 97530; 97535; 97802; 97803; 99285; A4216; G0257; J3486

== ENCOUNTER 2024-05-31 04:36 | Inpatient (IN) | payer MEDICARE, OTHER, SELFPAY ==
[2024-05-31] VITALS (34 sets, daily range): BP systolic 129–245; BP diastolic 65–84; PULSE 70–96; RESP 12–30; TEMP 36.2–36.9; O2SAT 80–99; BMI 19.5; BMI 19.1; BMI 17.6
[2024-05-31 04:58] LABS: Allen Test Positive; Base Excess -2 mmol/L (-2 to +2); Bicarbonate 24.5 mmol/L (22-26); Blood Gas Specimen Type ART; Mode Not entered; O2 Delivery Device BiPAP; PO2 69 mmHG (75-100); SITE R Radial; SO2 92 % (95-99); Total Carbon Dioxide 26 mmol/L; pCO2 47.2 mmHg (35-45); pH 7.32 (7.35-7.45)
[2024-05-31] MEDS: Ipratropium/Albuterol Sulfate 3 ML AMPUL.NEB 6 ML INHALATION (05:00)
[2024-05-31] MEDS: MethylPREDNISolone 125 MG/2 ML Vial IV (05:00)
[2024-05-31 05:06] LABS: Absolute Lymphocyte Count 0.86 X10^3/uL (0.83-4.51); Absolute Neutrophil Count 5.3 X10^3/uL (2.0-7.7); Basophil# 0.07 X10^3/uL; Eosinophil# 0.21 X10^3/uL; Hematocrit 29.5 % (40-54); Hemoglobin 9.6 g/dL (13.0-16.5); Lymphocyte # 0.86 X10^3/ul (0.83-4.51); Lymphocyte % 12.3 % (19-41); Mean Corp Hgb Conc 32.5 g/dL (32-36); Mean Corpuscular Hgb 30.1 pg (27.0-32.0); Mean Corpuscular Volume 92.5 fL (80-94); Mean Platelet Vol. 10.2 fl (6.2-12.0); Monocyte# 0.58 X10^3/uL; Monocyte% 8.3 % (0-10); NRBC Flagged by Analyzer 0 % (0-5); Neutrophil # 5.26 X10^3/uL (2.7-7.7); Platelet Count 343 K/mm3 (150-450); RBC Distribution Width CV 15.6 % (11.6-14.6); Red Blood Count 3.19 M/mm3 (4.6-6.2)
--- NOTE | 2024-05-31 05:11 | ED.VIS.DYS ---
HPI History of Present Illness Chief Complaint: Shortness of Breath Narrative Narrative: Chief complaint and HPI: Shortness of breath. 78-year-old male with past medical history of COPD, CKD on dialysis Thursday, , Thursday, DM 1, HTN presents for evaluation of shortness of breath. Patient states that he woke up around 3 AM with shortness of breath. On EMS arrival patient was 70% on room air. He was placed on oxygen and given a DuoNeb. Patient denies any fever, chills, URI symptoms, cough, abdominal pain, nausea, vomiting. He is due for dialysis today. Review of systems: See HPI Medications: As listed on the chart Allergies: As listed on the chart PFSH: Per chart Vital signs: As listed on the chart. Reviewed. Physical exam: Gen: A&O x3, NAD Head: Normocephalic, atraumatic Eyes: No sclera icterus, conjunctiva clear ENT: Moist mucous membranes Neck: Trachea midline, No JVD CV: RRR, no murmurs, no peripheral edema Resp: Lungs diminished bilaterally, tight, poor airflow, on BiPAP GI: Abd soft, non-distended, non-tender, no r/r/g Musc: Full ROM, no deformity Skin: Warm, dry Neuro: Alert, oriented, grossly intact, sensation intact Psych: Cooperative, appropriate mood and affect [facility] Medical History Insomnia Anorexia Fracture of femoral neck, right, open Carotid stenosis Anxiety and depression Carotid artery disease Lipohypertrophy due to insulin injection Dyslipidemia Carotid bruit Coronary artery disease Chronic neck pain Debility Cancer Open wound Polymyalgia arteritica Low iron Leg cramps History of edema Cardiology follow-up encounter Prostate cancer Dependent on hemodialysis NPDR (nonproliferative diabetic retinopathy) Nonrheumatic aortic (valve) stenosis History of non-ST elevation myocardial infarction (NSTEMI) End stage renal disease Leukocytosis Edema of left upper arm HFrEF (heart failure with reduced ejection fraction) Acquired neutrophilia Aortic valve stenosis 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 1 diabetes mellitus Chronic neck and back pain Skin mole Fatigue Watery eyes CKD (chronic kidney disease) stage 4, GFR 15-29 ml/min Aortic root dilatation Olecranon bursitis, left elbow Mediastinal mass Type 1 diabetes mellitus with hyperglycemia Olecranon bursitis, right elbow Unintentional weight loss of more than 10 pounds Swelling of right elbow Heart murmur Contact with or suspected exposure to other viral communicable disease Acute bronchitis Insulin dependent diabetes mellitus CKD (chronic kidney disease), stage IV Osteopenia Wears hearing aid Wears glasses Wears dentures Alcohol use Insulin dependent diabetes mellitus Arthritis High cholesterol Back pain Dietary restriction Former smoker Shortness of breath on exertion History of pain when walking History of stress test History of echocardiogram Nicotine dependence, cigarettes, uncomplicated COPD (chronic obstructive pulmonary disease) Episode of syncope Mass of lung REYES (dyspnea on exertion) Wears hearing aid in both ears Hearing loss, left Hearing loss, right Kidney stones Smoker Hypertension Chronic kidney insufficiency Diabetic retinopathy associated with type 1 diabetes mellitus Benign essential hypertension Stage 3 chronic kidney disease due to type 1 diabetes mellitus Diabetic polyneuropathy associated with type 1 diabetes mellitus Essential hypertension Mixed hyperlipidemia Vision problem Prostate disease Osteoarthritis Hearing problem COPD (chronic obstructive pulmonary disease) Cataracts, bilateral Bone fracture Back problem Anemia Bronchitis Family history of hyperlipidemia Family history of hypertension Headache Dyspnea on exertion Hyperlipidemia Nicotine abuse Atherosclerotic heart disease of [place] coronary artery without angina pectoris senior care use of drug Sleep apnea Hypertension Home Medications ?Medication ?Instructions ?Recorded ?Last Taken ?Type aspirin 81 mg tablet,delayed 81 mg PO QDAY [facility] 06/15/17 03/01/23 History release (Adult Low Dose Aspirin) finasteride 5 mg tablet (Proscar) 5 mg PO DAILY prostate 06/16/17 Unknown History flash glucose scanning reader #2 ea 03/28/22 Unknown Rx (FreeStyle Tani 2 Sycamore) flash glucose sensor (FreeStyle #2 ea 03/28/22 Unknown Rx Tani 2 Sensor kit) cholecalciferol (vitamin D3) 125 125 mcg PO DAILY vitamin 05/05/22 Unknown History mcg (5,000 unit) capsule PureFlow B 2K Dialysis Soln 6 bag perfusion UD ##0 12/12/22 Unknown Rx acetaminophen 325 mg tablet 650 mg (2 x 325 mg) PO Q4H PRN PRN 12/12/22 Unknown Rx Fever, pain 1-01/20 #0 tabs insulin lispro 100 unit/mL See Protocol subcut ACHS 01/14/23 Unknown History subcutaneous pen (Humalog KwikPen (U-100) Insulin) calcium 600 mg (as 1 cap PO DAILY vitamin 01/23/23 Unknown History carbonate)-vitamin D3 10 mcg (400 unit) capsule amlodipine 5 mg tablet 5 mg PO DAILY blood pressure 01/26/23 03/02/23 History foam bandage 4 X 4 (Mepilex) #5 ea 01/29/23 Unknown Rx clonidine HCl 0.1 mg tablet 0.1 mg PO BID blood pressure 01/29/24 Unknown History folic acid 400 mcg tablet 400 mcg PO DAILY supplement 01/29/24 Unknown History furosemide 40 mg tablet 40 mg PO DAILY weight gain 01/29/24 Unknown History magnesium 250 mg tablet 250 mg PO QDAY supplement 01/29/24 Unknown History pantoprazole 40 mg tablet,delayed 40 mg PO BID reflux 01/29/24 Unknown History release renal multivitamin 1 tab PO DAILY vitamin 01/29/24 Unknown History tamsulosin 0.4 mg capsule 0.4 mg PO QDAY prostate 01/29/24 Unknown History atorvastatin 40 mg tablet 40 mg PO QHS cholesterol 02/24/24 Unknown History metoprolol tartrate 25 mg tablet 25 mg PO DAILY blood pressure 02/24/24 Unknown History aluminum-mag hydroxide-simethicone 30 ml PO Q6H PRN PRN Gastric 02/28/24 Unknown Rx 400 mg-400 mg-40 mg/5 mL oral susp Burning #0 mL (Mag-Al Plus Extra Strength) ferrous sulfate 325 mg (65 mg 325 mg PO DAILY supplement #30 tabs 02/28/24 Unknown Rx iron) tablet (Iron (ferrous sulfate)) melatonin 3 mg tablet 3 mg PO QHS PRN PRN Insomnia #0 02/28/24 Unknown Rx tabs sertraline 50 mg tablet 50 mg PO DAILY mood 02/29/24 Unknown History bisacodyl 5 mg tablet,delayed 10 mg (2 x 5 mg) PO DAILY 03/02/24 Unknown Rx release constipation #0 tabs sennosides 8.6 mg-docusate sodium 2 tab PO BID constipation #0 tabs 03/02/24 Unknown Rx 50 mg tablet (Stimulant Laxative Plus) mirtazapine 15 mg tablet (Remeron) 3.75 mg (1/4 x 15 mg) PO QHS sleep 04/29/24 Unknown Rx #30 tabs insulin glargine 100 unit/mL (3 20 unit (0.2 mL) subcut QPM DM #15 05/18/24 Unknown Rx mL) subcutaneous pen (Lantus mL Solostar U-100 Insulin) nut.tx.imp.renal fxn,lac-reduc 237 ml PO .qid 24 days #5,688 mL 05/18/24 Unknown Rx 0.08 gram-1.8 kcal/mL oral liquid (Nepro Carb Steady) vitamins A,C,N-baqp-plleow 4,296 1 cap PO DAILY vitamin 05/18/24 Unknown History mcg-226 mg-90 mg capsule Allergy/AdvReac Type Severity Reaction Status Date / Time levofloxacin (From Levaquin) Allergy Hives Verified 05/31/24 04:40 vancomycin AdvReac Severe Rash Verified 05/31/24 04:40 Family History Father Diabetes Hypertension Family history of hyperlipidemia Asthma Kidney disease Mother Diabetes Brother Cancer Throat cancer Brother CAD (coronary artery disease) Myocardial infarction, Onset Age: 52 Sister Family history of hyperlipidemia Hypertension Diabetes Unknown Alcoholism Arthritis Depression Diabetes Hypertension Hyperlipidemia Osteoporosis Respiratory disease Pancreatic cancer Other Family history of hypertension Surgical History History of hip surgery S/P arteriovenous (AV) fistula creation Fracture of left patella Wrist fracture, bilateral Fracture of left upper extremity History of colonoscopy (~2013) History of bilateral inguinal hernia repair (~2007) History of hernia repair (~1991) History of hemorrhoidectomy (~2000) stent replacement for right sided kidney stome Social History household members: spouse Smoking Status: Current every day smoker tobacco type: cigarettes Tobacco: How many years used: 50 alcohol intake: never substance use type: does not use caffeine: Yes Type: coffee Number of servings: 2 what type of physical activity do you participate in: none seatbelt use: sometimes do you feel safe at home: Yes EXAM Physical Exam Const Vital Signs: 05/31/24 04:40 05/31/24 04:40 05/31/24 04:43 Temperature 97.6 F L 97.6 F L Temperature Source Oral Oral Pulse Rate 91 88 Respiratory Rate 30 H 30 H Respiratory Effort Short of Breath Labored Respiratory Depth Deep Respiratory Pattern Tachypnea Blood Pressure 196/71 H 196/71 H Blood Pressure Mean 112 112 Pulse Ox 80 94 Oxygen Delivery Method Nasal Cannula Bi-pap Bi-pap Oxygen Flow Rate (L/min) 6 Fraction of Inspired Oxygen (FIO2) 05/31/24 04:44 05/31/24 04:49 05/31/24 05:00 Temperature Temperature Source Pulse Rate 76 78 Respiratory Rate 28 H 22 H Respiratory Effort Respiratory Depth Respiratory Pattern Tachypnea Tachypnea Blood Pressure Blood Pressure Mean Pulse Ox 98 95 Oxygen Delivery Method Bi-pap Oxygen Flow Rate (L/min) Fraction of Inspired Oxygen (FIO2) 40 05/31/24 05:43 05/31/24 05:53 Temperature 97.8 F 98.4 F Temperature Source Oral Pulse Rate 75 76 Respiratory Rate 15 14 Respiratory Effort Respiratory Depth Respiratory Pattern Blood Pressure 177/65 H 177/65 H Blood Pressure Mean 102 102 Pulse Ox 98 95 Oxygen Delivery Method Bi-pap Oxygen Flow Rate (L/min) Fraction of Inspired Oxygen (FIO2) MDM MDM MDM Narrative Medical decision making narrative: 78-year-old male with past medical history of COPD, CKD on dialysis Thursday, , Thursday, DM 1, HTN presents for evaluation of shortness of breath. On presentation, patient is tachypneic and hypoxic on 6 L nasal cannula. Patient placed on BiPAP with improvement in work of breathing as well as oxygenation. On chart review, patient was just recently admitted for pneumonia. Differential diagnosis includes but is not limited to COPD exacerbation, pneumonia, viral illness, electrolyte abnormality, pulmonary effusions. Solu-Medrol and DuoNeb x 2 ordered. Patient already received DuoNeb via EMS. Respiratory workup ordered. EKG and chest x-ray reviewed see below. CBC without leukocytosis. Patient has baseline anemia. ABG with mild respiratory acidosis. pH 7.32. pCO2 47.2. Patient is already on BiPAP. BNP was CKD. Creatinine 3.31. Patient is due for hemodialysis today. BNP elevated in the . Troponin 46 which appears to be around patient's baseline. Not endorsing any chest pain. Patient's shortness of breath is likely secondary to COPD exacerbation however still waiting on flu, COVID, RSV. Patient will warrant admission. I spoke with the hospitalist service who accepted. He will wait COVID, flu, RSV results. EKG: Interpreted by me/EM physician: EKG shows normal sinus rhythm with LVH. QTc is 483. No acute ischemic changes. Diagnostic: Interpreted by me/EM physician: Chest x-ray with chronic bilateral infiltrates. Slightly improved from chest x-ray on 05/13/2024. Stable left pleural effusion. Seen on previous chest x-ray 30 minutes of critical care time utilized in managing the patient. This is due to high probability of and deterioration of the patient based on the patient's condition and excludes any separately billable procedures. Impression: 1. COPD exacerbation 2. Acute hypoxic and hypercapnic respiratory failure requiring BiPAP, secondary to #1 3. CKD on HD 4. Chronic anemia Lab Data Labs: Laboratory Results - last 24 hr 05/31/24 04:58 WBC 7.0 RBC 3.19 L Hgb 9.6 L Hct 29.5 L MCV 92.5 MCH 30.1 MCHC 32.5 RDW Std Deviation 53.0 H RDW Coeff of [place] 15.6 H Plt Count 343 MPV 10.2 Immature Gran % (Auto) 0.400 Neut % (Auto) 75.0 H Lymph % (Auto) 12.3 L [place] % (Auto) 8.3 Eos % (Auto) 3.0 Baso % (Auto) 1.0 Absolute Neuts (auto) 5.3 Absolute Lymphs (auto) 0.86 Nucleated RBC % 0 Sodium 135 L Potassium 4.4 Chloride 99 Carbon Dioxide 26.0 Anion Gap 10 BUN 72 H Creatinine 3.31 H Estim Creat Clear Calc 14.65 Est GFR (MDRD) Af Amer 23 L Est GFR (MDRD) Non-Af 19 L BUN/Creatinine Ratio 21.8 H Glucose 430 H Calcium 8.4 L Troponin I High Sens 46 B-Natriuretic Peptide 2523.4 H ABG Data ABG results: ABG 05/31/24 04:54 Specimen Type ART Sample Site R Radial pH 7.32 L Bicarbonate Actual 24.5 Total CO2 26 Base Excess -2 O2 Saturation 92 L ABG pCO2 47.2 H ABG pO2 69 L Ren Test Positive O2 Delivery Device BiPAP Vent Mode Not entered Clinical Comments Radiography Diagnostic Testing: Clinical Impression(s) from Imaging Studies Chest X-Ray 05/31/24 05:40 IMPRESSION: Stable moderate left pleural effusion. Reading Location: [facility] Discharge Plan Triage Chief Complaint: Shortness of Breath ED Provider: Sherwin Dong Dx/Rx/DC Orders Prescriptions: No Action aspirin [Adult Low Dose Aspirin] 81 mg tablet,delayed release (DR/EC) 81 mg PO QDAY finasteride [Proscar] 5 mg tablet 5 mg PO DAILY folic acid 400 mcg tablet 400 mcg PO DAILY (DME) FreeStyle Tani 2 Sensor Kit See Rx Instructions .Route Qty: 2 3RF Rx Instructions: As directed (DME) FreeStyle Tani 2 [place]camore Misc See Rx Instructions .Route Qty: 2 3RF Rx Instructions: As directed cholecalciferol (vitamin D3) 125 mcg (5,000 unit) capsule 125 mcg PO DAILY insulin lispro [Humalog KwikPen Insulin] 100 unit/mL insulin pen See Protocol subcut [facility] Protocol: 4. Sliding Scale Insulin High-Med Dosing Condition: 150-199 mg/dl = 2 units Condition: 200-259 mg/dl = 4 units Condition: 260-324 mg/dl = 6 units Condition: 325-374 mg/dl = 8 units Condition: 375-409 mg/dl = 10 units Condition: 410-449 mg/dl = 11 units Condition: Greater than 449 call physician Protocol Text: - Use for Total Daily Dose of Insulin 56-80 units - Patient who are insulin resistant or septic HIGH MEDIUM DOSING ALGORITHM calcium carbonate-vitamin D3 600 mg-10 mcg (400 unit) capsule 1 cap PO DAILY furosemide 40 mg tablet 40 mg PO DAILY amlodipine 5 mg tablet 5 mg PO DAILY tamsulosin 0.4 mg capsule 0.4 mg PO QDAY pantoprazole 40 mg tablet,delayed release (DR/EC) 40 mg PO BID renal multivitamin 1 tab PO DAILY clonidine HCl 0.1 mg tablet 0.1 mg PO BID magnesium 250 mg tablet 250 mg PO QDAY mirtazapine [Remeron] 15 mg tablet 3.75 mg PO QHS Qty: 30 1RF acetaminophen 325 mg Tablet 650 mg PO Q4H PRN PRN (Reason: Fever, pain 1-01/20) Qty: 0 0RF Pureflow B 2k Dialysis Soln 6 bag perfusion UD Qty: 0 0RF sertraline 50 mg tablet 50 mg PO DAILY bisacodyl 5 mg Tablet,Delayed Release (Dr/Ec) 10 mg PO DAILY Qty: 0 0RF Rx Instructions: Daily for 3 more days and then as needed sennosides-docusate sodium [Stimulant Laxative Plus] 8.6-50 mg Tablet 2 tab PO BID Qty: 0 0RF atorvastatin 40 mg tablet 40 mg PO QHS metoprolol tartrate 25 mg tablet 25 mg PO DAILY Rx Instructions: Hold for SBP less than 130 melatonin 3 mg Tablet 3 mg PO QHS PRN PRN (Reason: Insomnia) Qty: 0 0RF alum-mag hydroxide-simeth [Mag-Al Plus Extra Strength] 400-400-40 mg/5 mL Suspension 30 ml PO Q6H PRN PRN (Reason: Gastric Burning) Qty: 0 0RF ferrous sulfate [Iron (ferrous sulfate)] 325 mg (65 mg iron) tablet 325 mg PO DAILY Qty: 30 0RF insulin glargine [Lantus Solostar U-100 Insulin] 100 unit/mL (3 mL) insulin pen 20 unit SC QPM Qty: 15 0RF Nepro Carb Steady 0.08 gram-1.8 kcal/mL liquid 237 ml PO .qid 24 Days Qty: 5688 0RF ICaps AREDS 4,296 mcg-226 mg-90 mg capsule 1 cap PO DAILY (DME) Mepilex 4 X 4 bandage See Rx Instructions .Route Qty: 5 2RF Rx Instructions: As directed Primary Care Provider: Cesar Keenan Referrals: Cesar Keenan MD [Primary Care Provider] - Print Language: Estonian
[2024-05-31 05:26] LABS: Anion Gap 10 (5-15); BUN 72 mg/dL (7-18); BUN/Creat Ratio 21.8 RATIO (10-20); Calcium,Total 8.4 mg/dL (8.5-10.1); Chloride 99 mmol/L (98-107); Creatinine, Serum 3.31 mg/dL (0.70-1.30); EST Glomerular Filtration Rate 19 mL/min (>60); Est Glom Filt Rate - Afr Amer 23 mL/min (>60); Estimated Creatinine Clearance 14.65 ml/min; Glucose 430 mg/dL (74-106); Potassium 4.4 mmol/L (3.5-5.1); Sodium Level 135 mmol/L (136-145); Troponin-I HS 46 pg/mL (3.0-78.0)
--- NOTE | 2024-05-31 05:40 | RAD_ITS ---
PROCEDURE: CHEST 1 VIEW (PORTABLE) REASON FOR EXAM: 78-year-old male, shortness of breath. TECHNIQUE: Frontal view of the chest. COMPARISON: Chest radiograph 05/13/2024. FINDINGS: The heart size is normal. Moderate calcification of the thoracic aorta. Stable moderate left pleural effusion. The lungs are otherwise unchanged. Degenerative changes are identified within the thoracic spine. RAD/Chest 1 View (Portable) IMPRESSION: Stable moderate left pleural effusion. Reading Location: [id number]
[2024-05-31 05:54] LABS: BNP,B-Type NATRIURETIC PEPTIDE 2523.4 pg/mL (0-100)
--- NOTE | 2024-05-31 06:11 | HP.PCM_ITS ---
[facility] - General General Date of Admission: 05/31/24 Date of Service: 05/31/24 Chief Complaint: Shortness of breath HPI Narrative DEX VALLE, is a 78 M who presents to the emergency with chief complaint of shortness of breath. Patient has significant past medical history of chronic obstructive pulmonary disease, chronic kidney disease for which she is on dialysis Thursday, and Thursday, diabetes and hypertension. Patient woke up approximately 3:00 AM this morning with shortness of breath and hypoxia with a pulse oxygenation saturation of 70% on room air. He was placed on oxygen and DuoNeb and transferred by squad to the emergency room. Patient denies any fever, chills or other upper respiratory infection symptoms including cough. He denies abdominal pain nausea or vomiting as well. He is due for his dialysis today which is managed by Dr. Townsend. Initial respiratory rate in the emergency room was in the 30s patient was placed on BiPAP and has responded quite well. Admission was requested for further management of impending respiratory failure secondary to COPD exacerbation. [facility] Medical History Insomnia Anorexia Fracture of femoral neck, right, open Carotid stenosis Anxiety and depression Carotid artery disease Lipohypertrophy due to insulin injection Dyslipidemia Carotid bruit Coronary artery disease Chronic neck pain Debility Cancer Open wound Polymyalgia arteritica Low iron Leg cramps History of edema Cardiology follow-up encounter Prostate cancer Dependent on hemodialysis NPDR (nonproliferative diabetic retinopathy) Nonrheumatic aortic (valve) stenosis History of non-ST elevation myocardial infarction (NSTEMI) End stage renal disease Leukocytosis Edema of left upper arm HFrEF (heart failure with reduced ejection fraction) Acquired neutrophilia Aortic valve stenosis 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 1 diabetes mellitus Chronic neck and back pain Skin mole Fatigue Watery eyes CKD (chronic kidney disease) stage 4, GFR 15-29 ml/min Aortic root dilatation Olecranon bursitis, left elbow Mediastinal mass Type 1 diabetes mellitus with hyperglycemia Olecranon bursitis, right elbow Unintentional weight loss of more than 10 pounds Swelling of right elbow Heart murmur Contact with or suspected exposure to other viral communicable disease Acute bronchitis Insulin dependent diabetes mellitus CKD (chronic kidney disease), stage IV Osteopenia Wears hearing aid Wears glasses Wears dentures Alcohol use Insulin dependent diabetes mellitus Arthritis High cholesterol Back pain Dietary restriction Former smoker Shortness of breath on exertion History of pain when walking History of stress test History of echocardiogram Nicotine dependence, cigarettes, uncomplicated COPD (chronic obstructive pulmonary disease) Episode of syncope Mass of lung REYES (dyspnea on exertion) Wears hearing aid in both ears Hearing loss, left Hearing loss, right Kidney stones Smoker Hypertension Chronic kidney insufficiency Diabetic retinopathy associated with type 1 diabetes mellitus Benign essential hypertension Stage 3 chronic kidney disease due to type 1 diabetes mellitus Diabetic polyneuropathy associated with type 1 diabetes mellitus Essential hypertension Mixed hyperlipidemia Vision problem Prostate disease Osteoarthritis Hearing problem COPD (chronic obstructive pulmonary disease) Cataracts, bilateral Bone fracture Back problem Anemia Bronchitis Family history of hyperlipidemia Family history of hypertension Headache Dyspnea on exertion Hyperlipidemia Nicotine abuse Atherosclerotic heart disease of [place] coronary artery without angina pectoris [facility] use of drug Sleep apnea Hypertension Home Medications ?Medication ?Instructions ?Recorded ?Last Taken ?Type aspirin 81 mg tablet,delayed 81 mg PO QDAY [facility] 06/15/17 03/01/23 History release (Adult Low Dose Aspirin) finasteride 5 mg tablet (Proscar) 5 mg PO DAILY prosta te 06/16/17 Unknown History flash glucose scanning reader #2 ea 03/28/22 Unknown R x (FreeStyle Tani 2 [place]) flash glucose sensor (FreeStyle #2 ea 03/28/22 Unknown Rx Tani 2 Sensor kit) cholecalciferol (vitamin D3) 125 125 mcg PO DAILY rocio min 05/05/22 Unknown History mcg (5,000 unit) capsule PureFlow B 2K Dialysis Soln 6 bag perfusion UD ##0 05/05 Unknown Rx acetaminophen 325 mg tablet 650 mg (2 x 325 mg) PO Q4H PRN PRN 12/12/22 Unknown Rx Fever, pain 1-01/20 #0 tabs insulin lispro 100 unit/mL See Protocol subcut ACHS Unknown History subcutaneous pen (Humalog KwikPen (U-100) Insulin) calcium 600 mg (as 1 cap PO DAILY vitamin 01/23 Unknown History carbonate)-vitamin D3 10 mcg (400 unit) capsule amlodipine 5 mg tablet 5 mg PO DAILY blood pressure 01/26/23 03/02/23 History foam bandage 4 X 4 (Mepilex) #5 ea 01/29/23 Unknown Rx clonidine HCl 0.1 mg tablet 0.1 mg PO BID blood pressu re 01/29/24 Unknown History folic acid 400 mcg tablet 400 mcg PO DAILY supplement 01/29/24 Unknown History furosemide 40 mg tablet 40 mg PO DAILY weight gain 1 Unknown History magnesium 250 mg tablet 250 mg PO QDAY supplement Unknown History pantoprazole 40 mg tablet,delayed 40 mg PO BID reflux 01/29/24 Unknown History release renal multivitamin 1 tab PO DAILY vitamin 01/28 Unknown History tamsulosin 0.4 mg capsule 0.4 mg PO QDAY prostate 01/11 12/04 Unknown History atorvastatin 40 mg tablet 40 mg PO QHS cholesterol Unknown History metoprolol tartrate 25 mg tablet 25 mg PO DAILY blood pressure 02/24/24 Unknown History aluminum-mag hydroxide-simethicone 30 ml PO Q6H PRN NC N Gastric 02/28/24 Unknown Rx 400 mg-400 mg-40 mg/5 mL oral susp Burning #0 mL (Mag-Al Plus Extra Strength) ferrous sulfate 325 mg (65 mg 325 mg PO DAILY suppleme nt #30 tabs 02/28/24 Unknown Rx iron) tablet (Iron (ferrous sulfate)) melatonin 3 mg tablet 3 mg PO QHS PRN PRN Insomnia #0 02/28/24 Unknown Rx tabs sertraline 50 mg tablet 50 mg PO DAILY mood 02/29/24 Unknown History bisacodyl 5 mg tablet,delayed 10 mg (2 x 5 mg) PO MUNIR Y 03/02/24 Unknown Rx release constipation #0 tabs sennosides 8.6 mg-docusate sodium 2 tab PO BID constip ation #0 tabs 03/02/24 Unknown Rx 50 mg tablet (Stimulant Laxative Plus) mirtazapine 15 mg tablet (Remeron) 3.75 mg (1/4 x 15 m g) PO QHS sleep 04/29/24 Unknown Rx #30 tabs insulin glargine 100 unit/mL (3 20 unit (0.2 mL) subcu t QPM DM #15 05/18/24 Unknown Rx mL) subcutaneous pen (Lantus mL Solostar U-100 Insulin) nut.tx.imp.renal fxn,lac-reduc 237 ml PO .qid 24 days #5,688 mL 05/18/24 Unknown Rx 0.08 gram-1.8 kcal/mL oral liquid (Nepro Carb Steady) vitamins A,C,F-voil-koawbc 4,296 1 cap PO DAILY vitami n 05/18/24 Unknown History mcg-226 mg-90 mg capsule Allergy/AdvReac Type Severity Reaction Status Date / Time levofloxacin (From Levaquin) Allergy Hives Verified 05/31/24 04:40 vancomycin AdvReac Severe Rash Verified 05/31/24 04:40 Family History Father Diabetes Hypertension Family history of hyperlipidemia Asthma Kidney disease Mother Diabetes Brother Cancer Throat cancer Brother CAD (coronary artery disease) Myocardial infarction, Onset Age: 52 Sister Family history of hyperlipidemia Hypertension Diabetes Unknown Alcoholism Arthritis Depression Diabetes Hypertension Hyperlipidemia Osteoporosis Respiratory disease Pancreatic cancer Other Family history of hypertension Surgical History History of hip surgery S/P arteriovenous (AV) fistula creation Fracture of left patella Wrist fracture, bilateral Fracture of left upper extremity History of colonoscopy (~2013) History of bilateral inguinal hernia repair (~2007) History of hernia repair (~1991) History of hemorrhoidectomy (~2000) stent replacement for right sided kidney stome Social History household members: spouse Smoking Status: Current every day smoker tobacco type: cigarettes Tobacco: How many years used: 50 alcohol intake: never substance use type: does not use caffeine: Yes Type: coffee Number of servings: 2 what type of physical activity do you participate in: none seatbelt use: sometimes do you feel safe at home: Yes ROS Constitutional Constitutional: Denies chills or fever(s) Eyes Eyes: Denies blurry vision ENT HEENT: Denies abnormal hearing Cardiovascular Cardiovascular: Denies chest pain Respiratory/Chest Respiratory/Chest: Reports cough, shortness of breath at rest and wheezing Gastrointestinal Gastrointestinal: Denies abdominal pain Genitourinary Genitourinary: Denies dysuria Musculoskeletal Musculoskeletal: Denies back pain Integumentary Integumentary: Denies dry skin Neurologic Neurologic: Denies abnormal speech Psychiatric Psychiatric: Reports anxiety Vital Signs Vital Signs Vital Signs: 05/31/24 04:40 05/31/24 04:40 05/31/24 04:43 Temperature 97.6 F L 97.6 F L Temperature Source Oral Oral Pulse Rate 91 88 Respiratory Rate 30 H 30 H Respiratory Effort Short of Breath Labored Respiratory Depth Deep Respiratory Pattern Tachypnea Blood Pressure 196/71 H 196/71 H Blood Pressure Mean 112 112 Pulse Ox 80 94 Oxygen Delivery Method Nasal Cannula Bi-pap Bi-pap Oxygen Flow Rate (L/min) 6 Fraction of Inspired Oxygen (FIO2) 05/31/24 04:44 05/31/24 04:49 05/31/24 05:00 Temperature Temperature Source Pulse Rate 76 78 Respiratory Rate 28 H 22 H Respiratory Effort Respiratory Depth Respiratory Pattern Tachypnea Tachypnea Blood Pressure Blood Pressure Mean Pulse Ox 98 95 Oxygen Delivery Method Bi-pap Oxygen Flow Rate (L/min) Fraction of Inspired Oxygen (FIO2) 40 05/31/24 05:43 05/31/24 05:53 05/31/24 06:00 Temperature 97.8 F 98.4 F 97.8 F Temperature Source Oral Temporal Pulse Rate 75 76 81 Respiratory Rate 15 14 16 Respiratory Effort Respiratory Depth Respiratory Pattern Blood Pressure 177/65 H 177/65 H 175/71 H Blood Pressure Mean 102 102 105 Pulse Ox 98 95 97 Oxygen Delivery Method Bi-pap Bi-pap Oxygen Flow Rate (L/min) Fraction of Inspired Oxygen (FIO2) Weight Weight: 128 lb 4.944 oz Body Mass Index (BMI) 19.5 Physical Exam Const alert General Appearance: cooperative and well developed HEENT normocephalic and head/scalp atraumatic Neck no lymphadenopathy Lymph Lymphatic: no lymphadenopathy noted Resp normal respiratory effort and normal air movement Auscultation: wheezes expiratory wheezes Cardio regular rate, regular rhythm, S1 normal heart sound, S2 normal heart sound and no murmurs GI normal to inspection, nondistended, normoactive bowel sounds Extremity normal capillary refill Skin General Skin Exam: no breakdown Neuro no focal motor deficits and no sensory deficits noted Psych cooperative Results Lab / Micro Data 05/31/24 04:58 05/31/24 04:58 Labs: Laboratory Results - last 24 hr 05/31/24 04:58: WBC 7.0, RBC 3.19 L, Hgb 9.6 L, Hct 29.5 L, MCV 92.5, MCH 30.1, MCHC 32.5, RDW Std Deviation 53.0 H, RDW Coeff of [place] 15.6 H, Plt Count 343, MPV 10.2, Immature Gran % (Auto) 0.400, Neut % (Auto) 75.0 H, Lymph % (Auto) 12.3 L, [place] % (Auto) 8.3, Eos % (Auto) 3.0, Baso % (Auto) 1.0, Absolute Neuts (auto) 5.3, Absolute Lymphs (auto) 0.86, Nucleated RBC % 0, Sodium 135 L, Potassium 4.4, Chloride 99, Carbon Dioxide 26.0, Anion Gap 10, BUN 72 H, Creatinine 3.31 H , Estim Creat Clear Calc 14.65, Est GFR (MDRD) Af Amer 23 L, Est GFR (MDRD) Non- Af 19 L, BUN/Creatinine Ratio 21.8 H, Glucose 430 H, Calcium 8.4 L, Troponin I High Sens 46, B-Natriuretic Peptide 2523.4 H ABG Data ABG results: ABG 05/31/24 04:54 Specimen Type ART Sample Site R Radial pH 7.32 L Bicarbonate Actual 24.5 Total CO2 26 Base Excess -2 O2 Saturation 92 L ABG pCO2 47.2 H ABG pO2 69 L Ren Test Positive O2 Delivery Device BiPAP Vent Mode Not entered Clinical Comments Imaging Radiology Impression Chest X-Ray 05/31/24 05:40 IMPRESSION: Stable moderate left pleural effusion. Reading Location: [facility] Assessment & Plan Assessment/Plan (1) Former smoker: (2) COPD (chronic obstructive pulmonary disease): QUALIFIERS: COPD type: emphysema Emphysema type: centrilobular Q ualified Code(s): J43.2 - Centrilobular emphysema (3) Type 1 diabetes mellitus with hyperglycemia: (4) Hypertension: QUALIFIERS: Hypertension type: essential hypertension Qualified Code(s): I10 - Essential (primary) hypertension (5) Aortic valve stenosis: QUALIFIERS: Cardiac valve disease etiology: nonrheumatic Q ualified Code(s): I35.0 - Nonrheumatic aortic (valve) stenosis (6) End stage renal disease: PLAN: Plan 1 acute shortness of breath secondary to COPD?continue BiPAP initiated in the emergency room add DuoNeb breathing treatments every 4 hours with supportive oxygen therapy. Will add Solu-Medrol as well. Influenza/COVID swab is pending at time of my evaluation 2. End-stage renal disease dialysis dependent?consult Dr. Townsend for dialysis which is due today. 3. Diabetes?add sliding scale insulin to current regimen 4. Hypertension?continue home medications may require additional as needed control 5. CODE STATUS discussed with spouse patient to remain full code until they have further discussion 6. DVT prophylaxis?SCDs
[2024-05-31] MEDS: Ipratropium/Albuterol Sulfate 3 ML AMPUL.NEB INHALATION ×4 (08:00→19:33)
[2024-05-31] MEDS: Insulin Lispro 100 UNIT/ML INSULN.PEN SC ×4 (08:12→21:47)
[2024-05-31 08:14] LABS: Bedside Glucose 400 mg/dL (74-106)
[2024-05-31] MEDS: Heparin 10,000 UNITS/10 ML Vial 2000 UNITS IV (09:03)
[2024-05-31] MEDS: 0.9% Normal Saline 1,000 ML IV.SOLN. 1000 ML OPERA.SITE (09:03)
[2024-05-31] MEDS: PureFlow B 2K Dialysis Soln 1 BAG 6 BAG PF (09:03)
[2024-05-31] MEDS: 0.9% Saline Lock 10 ML Syringe IV ×2 (09:04→14:44)
--- NOTE | 2024-05-31 10:28 | PCM.CONS.R ---
Assessment & Plan Assessment/Plan (1) End stage renal disease: PLAN: Plan - ESRD on hemodialysis at [facility] [place] Thursday schedule. Patient last dialyzed Thursday at kidney center and tolerated around 2.3 L fluid removal. His EDW has been 51 kg, post weight at kidney center on 05/28 was 54 kg. Patient is undergoing hemodialysis today and attempting around 3.5 L fluid removal as patient/blood pressure tolerates. Patient is hypertensive and likely blood pressures will improve as volume status improves with fluid removed. We will evaluate for ultrafiltration needs tomorrow. Breathing has improved, patient is off BiPAP on nasal cannula now. Patient has a history of anemia of chronic disease and receives NIKUNJ and iron at dialysis. Hemoglobin is 9.6, no need for NIKUNJ today with dialysis. Further orders forthcoming as hospitalization evolves. HPI Consult Data Date of Consult: 05/31/24 HPI Narrative HPI Narrative: DEX VALLE, is a 78 M with past medical history significant for ESRD on dialysis who presented emergency room with complaints of shortness of breath. In the emergency room patient placed on BiPAP, he was admitted to ICU for further evaluation and treatment. Nephrology consulted as patient has history of ESRD requiring hemodialysis. Patient is compliant with dialysis, he does not miss his treatments and typically does not have large fluid gains. Patient is currently on hemodialysis and tolerating fluid removal. at bedside. No other complaints. [facility] Medical History Insomnia Anorexia Fracture of femoral neck, right, open Carotid stenosis Anxiety and depression Carotid artery disease Lipohypertrophy due to insulin injection Dyslipidemia Carotid bruit Coronary artery disease Chronic neck pain Debility Cancer Open wound Polymyalgia arteritica Low iron Leg cramps History of edema Cardiology follow-up encounter Prostate cancer Dependent on hemodialysis NPDR (nonproliferative diabetic retinopathy) Nonrheumatic aortic (valve) stenosis History of non-ST elevation myocardial infarction (NSTEMI) End stage renal disease Leukocytosis Edema of left upper arm HFrEF (heart failure with reduced ejection fraction) Acquired neutrophilia Aortic valve stenosis 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 1 diabetes mellitus Chronic neck and back pain Skin mole Fatigue Watery eyes CKD (chronic kidney disease) stage 4, GFR 15-29 ml/min Aortic root dilatation Olecranon bursitis, left elbow Mediastinal mass Type 1 diabetes mellitus with hyperglycemia Olecranon bursitis, right elbow Unintentional weight loss of more than 10 pounds Swelling of right elbow Heart murmur Contact with or suspected exposure to other viral communicable disease Acute bronchitis Insulin dependent diabetes mellitus CKD (chronic kidney disease), stage IV Osteopenia Wears hearing aid Wears glasses Wears dentures Alcohol use Insulin dependent diabetes mellitus Arthritis High cholesterol Back pain Dietary restriction Former smoker Shortness of breath on exertion History of pain when walking History of stress test History of echocardiogram Nicotine dependence, cigarettes, uncomplicated COPD (chronic obstructive pulmonary disease) Episode of syncope Mass of lung REYES (dyspnea on exertion) Wears hearing aid in both ears Hearing loss, left Hearing loss, right Kidney stones Smoker Hypertension Chronic kidney insufficiency Diabetic retinopathy associated with type 1 diabetes mellitus Benign essential hypertension Stage 3 chronic kidney disease due to type 1 diabetes mellitus Diabetic polyneuropathy associated with type 1 diabetes mellitus Essential hypertension Mixed hyperlipidemia Vision problem Prostate disease Osteoarthritis Hearing problem COPD (chronic obstructive pulmonary disease) Cataracts, bilateral Bone fracture Back problem Anemia Bronchitis Family history of hyperlipidemia Family history of hypertension Headache Dyspnea on exertion Hyperlipidemia Nicotine abuse Atherosclerotic heart disease of [place] coronary artery without angina pectoris [facility] use of drug Sleep apnea Hypertension Home Medications ?Medication ?Instructions ?Recorded ?Last Taken ?Type aspirin 81 mg tablet,delayed 81 mg PO QDAY [facility] 06/15/17 03/01/23 History release (Adult Low Dose Aspirin) finasteride 5 mg tablet (Proscar) 5 mg PO DAILY prostate 06/16/17 Unknown History flash glucose scanning reader #2 ea 03/28/22 Unknown Rx (FreeStyle Tani 2 [place]) flash glucose sensor (FreeStyle #2 ea 03/28/22 Unknown Rx Tani 2 Sensor kit) cholecalciferol (vitamin D3) 125 125 mcg PO DAILY vitamin 05/05/22 Unknown History mcg (5,000 unit) capsule acetaminophen 325 mg tablet 650 mg (2 x 325 mg) PO Q4H PRN PRN 12/12/22 Unknown Rx Fever, pain 1-01/20 #0 tabs insulin lispro 100 unit/mL See Protocol subcut ACHS diabetes 01/14/23 Unknown History subcutaneous pen (Humalog KwikPen (U-100) Insulin) calcium 600 mg (as 1 cap PO DAILY vitamin 01/23/23 Unknown History carbonate)-vitamin D3 10 mcg (400 unit) capsule amlodipine 5 mg tablet 5 mg PO DAILY blood pressure 01/26/23 03/02/23 History clonidine HCl 0.1 mg tablet 0.1 mg PO BID blood pressure 01/29/24 Unknown History folic acid 400 mcg tablet 400 mcg PO DAILY supplement 01/29/24 Unknown History furosemide 40 mg tablet 40 mg PO DAILY weight gain 01/29/24 Unknown History magnesium 250 mg tablet 250 mg PO QDAY supplement 01/29/24 Unknown History pantoprazole 40 mg tablet,delayed 40 mg PO BID reflux 01/29/24 Unknown History release renal multivitamin 1 tab PO DAILY vitamin 01/29/24 Unknown History tamsulosin 0.4 mg capsule 0.4 mg PO QDAY prostate 01/29/24 Unknown History atorvastatin 40 mg tablet 40 mg PO QHS cholesterol 02/24/24 Unknown History metoprolol tartrate 25 mg tablet 25 mg PO DAILY blood pressure 02/24/24 Unknown History aluminum-mag hydroxide-simethicone 30 ml PO Q6H PRN PRN Gastric 02/28/24 Unknown Rx 400 mg-400 mg-40 mg/5 mL oral susp Burning #0 mL (Mag-Al Plus Extra Strength) ferrous sulfate 325 mg (65 mg 325 mg PO DAILY supplement #30 tabs 02/28/24 Unknown Rx iron) tablet (Iron (ferrous sulfate)) melatonin 3 mg tablet 3 mg PO QHS PRN PRN Insomnia #0 02/28/24 Unknown Rx tabs sertraline 50 mg tablet 50 mg PO DAILY mood 02/29/24 Unknown History bisacodyl 5 mg tablet,delayed 10 mg (2 x 5 mg) PO DAILY 03/02/24 Unknown Rx release constipation #0 tabs sennosides 8.6 mg-docusate sodium 2 tab PO BID constipation #0 tabs 03/02/24 Unknown Rx 50 mg tablet (Stimulant Laxative Plus) mirtazapine 15 mg tablet (Remeron) 3.75 mg (1/4 x 15 mg) PO QHS sleep 04/29/24 Unknown Rx #30 tabs insulin glargine 100 unit/mL (3 20 unit (0.2 mL) subcut QPM DM #15 05/18/24 Unknown Rx mL) subcutaneous pen (Lantus mL Solostar U-100 Insulin) vitamins A,C,T-alpm-lqarrh 4,296 1 cap PO DAILY vitamin 05/18/24 Unknown History mcg-226 mg-90 mg capsule Allergy/AdvReac Type Severity Reaction Status Date / Time levofloxacin (From Levaquin) Allergy Hives Verified 05/31/24 04:40 vancomycin AdvReac Severe Rash Verified 05/31/24 04:40 Family History Father Diabetes Hypertension Family history of hyperlipidemia Asthma Kidney disease Mother Diabetes Brother Cancer Throat cancer Brother CAD (coronary artery disease) Myocardial infarction, Onset Age: 52 Sister Family history of hyperlipidemia Hypertension Diabetes Unknown Alcoholism Arthritis Depression Diabetes Hypertension Hyperlipidemia Osteoporosis Respiratory disease Pancreatic cancer Other Family history of hypertension Surgical History History of hip surgery S/P arteriovenous (AV) fistula creation Fracture of left patella Wrist fracture, bilateral Fracture of left upper extremity History of colonoscopy (~2013) History of bilateral inguinal hernia repair (~2007) History of hernia repair (~1991) History of hemorrhoidectomy (~2000) stent replacement for right sided kidney stome Social History household members: spouse Smoking Status: Current every day smoker tobacco type: cigarettes Tobacco: How many years used: 50 alcohol intake: never substance use type: does not use caffeine: Yes Type: coffee Number of servings: 2 what type of physical activity do you participate in: none seatbelt use: sometimes do you feel safe at home: Yes ROS ROS Narrative As in HPI Physical Exam Narrative Alert and oriented, no apparent distress S1, S2, RRR Diminished breath sounds Abdomen soft, nontender No pitting edema AV fistula accessed for hemodialysis Lab / Micro Data 05/31/24 04:58 05/31/24 04:58 Labs: Laboratory Results - last 24 hr 05/31/24 04:58: WBC 7.0, RBC 3.19 L, Hgb 9.6 L, Hct 29.5 L, MCV 92.5, MCH 30.1, MCHC 32.5, RDW Std Deviation 53.0 H, RDW Coeff of [place] 15.6 H, Plt Count 343, MPV 10.2, Immature Gran % (Auto) 0.400, Neut % (Auto) 75.0 H, Lymph % (Auto) 12.3 L, [place] % (Auto) 8.3, Eos % (Auto) 3.0, Baso % (Auto) 1.0, Absolute Neuts (auto) 5.3, Absolute Lymphs (auto) 0.86, Nucleated RBC % 0, Sodium 135 L, Potassium 4.4, Chloride 99, Carbon Dioxide 26.0, Anion Gap 10, BUN 72 H, Creatinine 3.31 H, Estim Creat Clear Calc 14.65, Est GFR (MDRD) Af Amer 23 L, Est GFR (MDRD) Non-Af 19 L, BUN/Creatinine Ratio 21.8 H, Glucose 430 H, Calcium 8.4 L, Troponin I High Sens 46, B-Natriuretic Peptide 2523.4 H 05/31/24 07:55: POC Glucose 400 H Micro: Microbiology 05/31/24 04:54 Mucosa - Nose SARS-CoV-2, Influenza & RSV (PCR) - Final ABG Data ABG results: ABG 05/31/24 04:54 Specimen Type ART Sample Site R Radial pH 7.32 L Bicarbonate Actual 24.5 Total CO2 26 Base Excess -2 O2 Saturation 92 L ABG pCO2 47.2 H ABG pO2 69 L Ren Test Positive O2 Delivery Device BiPAP Vent Mode Not entered Clinical Comments Imaging Radiology Impression Chest X-Ray 05/31/24 05:40 IMPRESSION: Stable moderate left pleural effusion. Reading Location: [id number]
[2024-05-31 11:42] LABS: Bedside Glucose 260 mg/dL (74-106)
--- NOTE | 2024-05-31 12:33 | CASEMGMT ---
Index: 05/11/24-05/18/24. Dx: Acute encephalopathy Readmission: 05/31/24. Dx: COPD Exacerbation, Acute Hypoxia From index admission, the patient was discharged home with his with home healthcare. The patient was set up with [facility] home healthcare (SN, PT, OT, and SW). The patient is also active with outpatient hemodialysis through [facility] in [place]. Patient re-presents to [facility] ER with shortness of breath and hypoxia and was found to be 70% on RA. Patient has a history of COPD and chronic kidney disease. During the index admission, the patient did not qualify for home oxygen. NADEEM CM to patient room at this time, patient at the bedside. Patient is currently being dialyzed. Patient states that the home healthcare company was able to come to the house and help care for his needs. Patient states that he canceled his outpatient therapy through [facility]. Patient states that his was helping him manage his diabetes and that they were checking his blood sugar levels and taking his insulin as prescribed. Patient and patient states that the pt was attending hemodialysis every Thursday and Thursday as scheduled. Patient and patient state the patient was taking all of his medications as prescribed. Patient and patient states that he was drinking the Boost shakes. Patient states that he was able to follow up with his PCP in between admissions. Moving forward, the patient states that he wishes to return home once his medically ready and would like the home healthcare services to continue. Telephone call to Anali at [facility]. Anali states that they will be able to resume care once the patient is discharged. Patient is currently 97% on room air. CM to follow for potential oxygen needs. Per index admission, the patient preferred [employer] and that that he would prefer this company again if he were to qualify. Patient denies any further questions or concerns at this time. PLAN: Home with the pt and the continuation of HHC and OP HD. Follow for oxygen needs.
[2024-05-31] MEDS: Aspirin E.C. 81 MG Tablet PO (12:34)
[2024-05-31] MEDS: Folic Acid 1 MG Tablet 0.5 MG PO (12:35)
[2024-05-31] MEDS: cloNIDine HCl 0.1 MG Tablet PO ×2 (12:35→21:48)
[2024-05-31] MEDS: Bisacodyl 5 MG Tablet 10 MG PO (12:36)
[2024-05-31] MEDS: Metoprolol Tartrate 25 MG Tablet PO (12:37)
[2024-05-31] MEDS: Magnesium Chloride 64 MG Delay Rel.Tablet 128 MG PO (12:37)
[2024-05-31] MEDS: Tamsulosin HCl 0.4 MG Capsule PO (12:37)
[2024-05-31] MEDS: Furosemide 40 MG Tablet PO (12:37)
[2024-05-31] MEDS: Folic Acid/Vitamin B Comp W-C 1 Capsule 1 CAP PO (12:37)
[2024-05-31] MEDS: Cholecalciferol (Vit D3) 125 MCG CAPSULE (5,000 UNITS) PO (12:38)
[2024-05-31] MEDS: Finasteride 5 MG Tablet PO (12:38)
[2024-05-31] MEDS: Calcium Carb/Vitamin D 1 TABLET Tablet PO (12:38)
[2024-05-31] MEDS: Pantoprazole Sodium 40 MG Tablet PO ×2 (12:38→21:48)
[2024-05-31] MEDS: Senna/Docusate Sodium 1 Tablet 2 TABLET PO ×2 (12:38→21:49)
[2024-05-31] MEDS: Sertraline 50 MG Tablet PO (12:38)
[2024-05-31] MEDS: amLODIPine 5 MG Tablet PO (12:38)
[2024-05-31] MEDS: Ferrous Sulfate 325 MG Tablet PO (12:39)
--- NOTE | 2024-05-31 14:19 | CHAPLAIN ---
Type of Pastoral Visit _x__ Initial Visit ___ Follow-up Visit ___ On-call Visit ___ General Patient Visit ___ Spiritual Assessment ___ Family Conference ___ Bereavement ___ Rapid Response ___ Code Blue ___ Other (describe below) Pastoral Care Referral From _x__ Patient ___ Family ___ Nurse ___ Physician ___ Piece Dye Worker ___ Inclusion Special Education Teacher ___ Other (describe below) Sacrament/Intervention ___ Active listening ___ Anointing ___ Buddhism ___ Bereavement ___ Communion ___ Aleisha exploration ___ ___ Life review _x__ Prayer ___ Reconciliation ___ Sacrament of Sick _x__ Supportive presence ___ Wedding ___ Other (describe below) Pastoral Comments patient is receiving dialysis and a couple of family members are also in the room; pt is offered support; pt has some difficulty hearing the questions asked but is able to respond; spouse also gives information; spouse requests a prayer; pt denies any needs and states that he is just doing what is needed;
[2024-05-31 16:44] LABS: Bedside Glucose 224 mg/dL (74-106)
[2024-05-31] MEDS: Insulin Glargine-YFGN 100 UNIT/ML Pen 20 UNIT SC (21:47)
[2024-05-31] MEDS: Atorvastatin Calcium 40 MG Tablet PO (21:48)
[2024-05-31] MEDS: Mirtazapine 15 MG Tablet 3.75 MG PO (21:49)
[2024-05-31 22:20] LABS: Bedside Glucose 444 mg/dL (74-106)
[2024-06-01] VITALS (9 sets, daily range): BP systolic 134–157; BP diastolic 68–72; PULSE 69–90; RESP 13–18; TEMP 36.1–36.8; O2SAT 94–99
[2024-06-01] MEDS: Insulin Lispro 100 UNIT/ML INSULN.PEN SC ×4 (06:14→21:12)
[2024-06-01 06:35] LABS: Bedside Glucose 219 mg/dL (74-106)
[2024-06-01] MEDS: Ipratropium/Albuterol Sulfate 3 ML AMPUL.NEB INHALATION ×4 (06:40→19:16)
[2024-06-01 07:00] LABS: Absolute Neutrophil Count 11.1 X10^3/uL (2.0-7.7); Basophil# 0.01 X10^3/uL; Basophil% 0.1 % (0-1); Hematocrit 26.5 % (40-54); Hemoglobin 8.8 g/dL (13.0-16.5); Mean Corp Hgb Conc 33.2 g/dL (32-36); Mean Corpuscular Hgb 29.9 pg (27.0-32.0); Mean Corpuscular Volume 90.1 fL (80-94); Mean Platelet Vol. 10.4 fl (6.2-12.0); Monocyte# 0.26 X10^3/uL; Monocyte% 2.2 % (0-10); NRBC Flagged by Analyzer 0 % (0-5); Neutrophil # 11.06 X10^3/uL (2.7-7.7); Neutrophil % 92.3 % (47-70); POSITIVE DIFFERENTIAL YES; Platelet Count 328 K/mm3 (150-450); RBC Distribution Width CV 15.8 % (11.6-14.6); RBC Distribution Width SD 51.6 fl (35.1-43.9); Red Blood Count 2.94 M/mm3 (4.6-6.2)
[2024-06-01 07:24] LABS: Anion Gap 4 (5-15); BUN 61 mg/dL (7-18); BUN/Creat Ratio 22.1 RATIO (10-20); Calcium,Total 9.4 mg/dL (8.5-10.1); Chloride 101 mmol/L (98-107); Creatinine, Serum 2.76 mg/dL (0.70-1.30); EST Glomerular Filtration Rate 24 mL/min (>60); Est Glom Filt Rate - Afr Amer 29 mL/min (>60); Estimated Creatinine Clearance 15.46 ml/min; Glucose 231 mg/dL (74-106); Potassium 4.3 mmol/L (3.5-5.1); Sodium Level 135 mmol/L (136-145)
[2024-06-01] MEDS: Folic Acid 1 MG Tablet 0.5 MG PO (10:18)
[2024-06-01] MEDS: Bisacodyl 5 MG Tablet 10 MG PO (10:18)
[2024-06-01] MEDS: Ferrous Sulfate 325 MG Tablet PO (10:18)
[2024-06-01] MEDS: amLODIPine 5 MG Tablet PO (10:19)
[2024-06-01] MEDS: Aspirin E.C. 81 MG Tablet PO (10:19)
[2024-06-01] MEDS: Magnesium Chloride 64 MG Delay Rel.Tablet 128 MG PO (10:19)
[2024-06-01] MEDS: cloNIDine HCl 0.1 MG Tablet PO ×2 (10:19→21:14)
[2024-06-01] MEDS: Tamsulosin HCl 0.4 MG Capsule PO (10:20)
[2024-06-01] MEDS: Metoprolol Tartrate 25 MG Tablet PO (10:20)
[2024-06-01] MEDS: Furosemide 40 MG Tablet PO (10:20)
[2024-06-01] MEDS: Finasteride 5 MG Tablet PO (10:20)
[2024-06-01] MEDS: Calcium Carb/Vitamin D 1 TABLET Tablet PO (10:22)
[2024-06-01] MEDS: Sertraline 50 MG Tablet PO (10:23)
[2024-06-01] MEDS: Folic Acid/Vitamin B Comp W-C 1 Capsule 1 CAP PO (10:23)
[2024-06-01] MEDS: Senna/Docusate Sodium 1 Tablet 2 TABLET PO (10:23)
[2024-06-01] MEDS: Cholecalciferol (Vit D3) 125 MCG CAPSULE (5,000 UNITS) PO (10:23)
[2024-06-01] MEDS: Pantoprazole Sodium 40 MG Tablet PO ×2 (10:23→21:13)
--- NOTE | 2024-06-01 11:17 | PN_ITS ---
Subjective Subjective Patient seen and examined. He had no active complaints. He did feel a bit weak but denied any shortness of breath, cough, chest pain, palpitations, dizziness, nausea or vomiting. Review of systems otherwise negative. He has remained hemodynamically stable and is on room air. Objective Data Objective Data Vital Signs: Vital Signs Temp Pulse Resp BP Pulse Ox O2 Del Method O2 Flow Rate 97.0 F L 77 16 152/70 H 96 Room Air 2 06/01/24 10:06/01/24 11:04 06/01/24 11:04 06/01/24 10:29 06/01/24 10:29 06/01/24 10:29 05/31/24 08:31 FiO2 35 05/31/24 07:32 Oxygen Flow Rate (L/min) 2 Oxygen Delivery Method Room Air Weight: 112 lb 14.027 oz Body Mass Index (BMI) 17.6 Intake & Output: Intake and Output for Last 24 Hours 05/30/24 05/31/24 06/01/24 23:59 23:59 23:59 Intake Total 540 / 540 Output Total 4535 / 4735 200 / 200 Balance -3995 / -4195 -200 / -200 Lab / Micro Data 06/01/24 06:40 06/01/24 06:40 Labs: Laboratory Results - last 24 hr 05/31/24 11:20: POC Glucose 260 H 05/31/24 16:27: POC Glucose 224 H 05/31/24 21:46: POC Glucose 444 H 06/01/24 06:13: POC Glucose 219 H 06/01/24 06:40: WBC 12.0 H, RBC 2.94 L, Hgb 8.8 L, Hct 26.5 L, MCV 90.1, MCH 29.9, MCHC 33.2, RDW Std Deviation 51.6 H, RDW Coeff of Russell 15.8 H, Plt Count 328, MPV 10.4, Immature Gran % (Auto) 0.400, Neut % (Auto) 92.3 H, Lymph % (Auto) 5.0 L, Ashley % (Auto) 2.2, Eos % (Auto) 0.0, Baso % (Auto) 0.1, Absolute Neuts (auto) 11.1 H, Absolute Lymphs (auto) 0.60 L, Nucleated RBC % 0, Sodium 135 L, Potassium 4.3, Chloride 101, Carbon Dioxide 29.0, Anion Gap 4 L, BUN 61 H , Creatinine 2.76 H, Estim Creat Clear Calc 15.46, Est GFR (MDRD) Af Amer 29 L, Est GFR (MDRD) Non-Af 24 L, BUN/Creatinine Ratio 22.1 H, Glucose 231 H, Calcium 9.4 Micro: Microbiology 05/31/24 04:54 Mucosa - Nose SARS-CoV-2, Influenza & RSV (PCR) - Final Physical Exam Const alert, oriented x3 and no apparent distress Constitutional Narrative: frail General Appearance: cooperative and well developed HEENT normocephalic, head/scalp atraumatic, moist oral mucous membranes, oropharynx normal and gingiva normal Eyes PERRL and EOMs intact bilaterally Neck no lymphadenopathy and supple Lymph Lymphatic: no lymphadenopathy noted and no lymphedema noted Resp Resp Narrative: mildly diminished breath sounds bibasally, no wheezes or crackles. On room air. Cardio regular rate, regular rhythm, S1 normal heart sound, S2 normal heart sound and no murmurs GI normal to inspection, nondistended, normoactive bowel sounds, soft to palpation, non-tender and non-distended Extremity normal capillary refill, no clubbing, cyanosis or edema and no calf tenderness General Extremity: no tenderness to palpation of joints or extremities Skin General Skin Exam: no breakdown Neuro CN's II-XII intact bilaterally, no focal motor deficits and no sensory deficits noted Psych thought process normal, cooperative and affect normal Appearance: appropriate Assessment & Plan Assessment/Plan (1) Bilateral pneumonia: QUALIFIERS: Pneumonia type: due to unspecified organism Lung location: unspecified part of lung Qualified Code(s): J18.9 - Pneumonia, unspecified organism PLAN: Plan #Acute exacerbation of COPD * Currently on room air and feels much better. Was on BiPAP on admission is now off BiPAP and on room air. On IV Solu-Medrol 40 mg Q8. * Respiratory panel is negative. Breathing treatments bronchodilators. Titrate oxygen to maintain saturation above 90%. #ESRD: On dialysis. Nephrology on board. #Type 2 diabetes mellitus: On Lantus 20 units daily. Insulin sliding scale. Accu-Cheks ACHS. #Hypertension: On amlodipine and clonidine. Also on furosemide #Depression: on mirtazapine and sertraline. #BPH: on flomax. DVT prophylaxis: SCDs CODE STATUS: Full code Disposition: anticipate dc over the next 24 hours. Charges/Coding Visit Charges Inpatient E&M: 41627 Subs Hosp L2
--- NOTE | 2024-06-01 11:42 | PN.RENAL_ITS ---
Subjective Subjective Patient is resting in bed. No complaints. at bedside. Objective Data Objective Data Vital Signs: Vital Signs Temp Pulse Resp BP Pulse Ox O2 Del Method O2 Flow Rate 97.0 F L 77 16 152/70 H 96 Room Air 2 06/01/24 10:29 06/01/24 11:04 06/01/24 11:04 06/01/24 10:29 06/01/24 10:29 06/01/24 10:29 05/31/24 08:31 FiO2 35 05/31/24 07:32 Oxygen Flow Rate (L/min) 2 Oxygen Delivery Method Room Air Weight: 51.2 kg Body Mass Index (BMI) 17.6 Intake & Output: Intake and Output for Last 24 Hours 05/30/24 05/31/24 06/01/24 23:59 23:59 23:59 Intake Total 540 / 540 Output Total 4535 / 4735 200 / 200 Balance -3995 / -4195 -200 / -200 Lab / Micro Data 06/01/24 06:40 06/01/24 06:40 Labs: Laboratory Results - last 24 hr 05/31/24 11:20: POC Glucose 260 H 05/31/24 16:27: POC Glucose 224 H 05/31/24 21:46: POC Glucose 444 H 06/01/24 06:13: POC Glucose 219 H 06/01/24 06:40: WBC 12.0 H, RBC 2.94 L, Hgb 8.8 L, Hct 26.5 L, MCV 90.1, MCH 29.9, MCHC 33.2, RDW Std Deviation 51.6 H, RDW Coeff of Russell 15.8 H, Plt Count 328, MPV 10.4, Immature Gran % (Auto) 0.400, Neut % (Auto) 92.3 H, Lymph % (Auto) 5.0 L, [place] % (Auto) 2.2, Eos % (Auto) 0.0, Baso % (Auto) 0.1, Absolute Neuts (auto) 11.1 H, Absolute Lymphs (auto) 0.60 L, Nucleated RBC % 0, Sodium 135 L, Potassium 4.3, Chloride 101, Carbon Dioxide 29.0, Anion Gap 4 L, BUN 61 H , Creatinine 2.76 H, Estim Creat Clear Calc 15.46, Est GFR (MDRD) Af Amer 29 L, Est GFR (MDRD) Non-Af 24 L, BUN/Creatinine Ratio 22.1 H, Glucose 231 H, Calcium 9.4 Micro: Microbiology 05/31/24 04:54 Mucosa - Nose SARS-CoV-2, Influenza & RSV (PCR) - Final Physical Exam Narrative Alert and oriented, no apparent distress S1, S2, RRR Diminished breath sounds Abdomen soft, nontender No pitting edema AV fistula left arm Assessment & Plan Assessment/Plan (1) End stage renal disease: PLAN: Plan - ESRD on hemodialysis at [facility] Thursday schedule. Patient underwent hemodialysis yesterday and tolerated about 4 L fluid removal. Post HD weight 51.2 kg. 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 Next dialysis will be tomorrow. His EDW has been 51 kg at kidney center. - history of anemia of chronic disease and receives NIKUNJ and iron at dialysis. Will follow hgb trends. - HTN; bps much improved. On amlodipine, clonidine and metoprolol. Continue to remove fluid with dialysis as patient/blood pressure tolerates.
[2024-06-01 12:16] LABS: Bedside Glucose 407 mg/dL (74-106)
[2024-06-01 15:33] LABS: Bedside Glucose 321 mg/dL (74-106)
[2024-06-01] MEDS: Insulin Glargine-YFGN 100 UNIT/ML Pen 20 UNIT SC (21:12)
[2024-06-01] MEDS: Mirtazapine 15 MG Tablet 3.75 MG PO (21:13)
[2024-06-01] MEDS: Atorvastatin Calcium 40 MG Tablet PO (21:14)
[2024-06-01 21:44] LABS: Bedside Glucose 295 mg/dL (74-106)
[2024-06-02] VITALS (20 sets, daily range): BP systolic 124–229; BP diastolic 54–89; PULSE 76–98; RESP 15–18; TEMP 36.2–36.4; O2SAT 93–100; BMI 17.6; BMI 17.2
[2024-06-02] MEDS: Insulin Lispro 100 UNIT/ML INSULN.PEN SC ×2 (06:27→13:12)
[2024-06-02 06:49] LABS: Bedside Glucose 230 mg/dL (74-106)
[2024-06-02] MEDS: Ipratropium/Albuterol Sulfate 3 ML AMPUL.NEB INHALATION ×2 (07:00→11:50)
[2024-06-02 07:46] LABS: Absolute Lymphocyte Count 0.56 X10^3/uL (0.83-4.51); Basophil# 0.01 X10^3/uL; Basophil% 0.1 % (0-1); Hematocrit 27.4 % (40-54); Hemoglobin 8.9 g/dL (13.0-16.5); Lymphocyte # 0.56 X10^3/ul (0.83-4.51); Lymphocyte % 4.3 % (19-41); Mean Corp Hgb Conc 32.5 g/dL (32-36); Mean Corpuscular Hgb 29.9 pg (27.0-32.0); Mean Corpuscular Volume 91.9 fL (80-94); Mean Platelet Vol. 10.9 fl (6.2-12.0); Monocyte# 0.34 X10^3/uL; Monocyte% 2.6 % (0-10); NRBC Flagged by Analyzer 0 % (0-5); Neutrophil # 11.99 X10^3/uL (2.7-7.7); Neutrophil % 92.4 % (47-70); POSITIVE DIFFERENTIAL YES; Platelet Count 360 K/mm3 (150-450); RBC Distribution Width CV 16.3 % (11.6-14.6); Red Blood Count 2.98 M/mm3 (4.6-6.2)
[2024-06-02 08:33] LABS: Anion Gap 10 (5-15); BUN 79 mg/dL (7-18); BUN/Creat Ratio 21.6 RATIO (10-20); Calcium,Total 9.1 mg/dL (8.5-10.1); Chloride 101 mmol/L (98-107); Creatinine, Serum 3.66 mg/dL (0.70-1.30); EST Glomerular Filtration Rate 17 mL/min (>60); Est Glom Filt Rate - Afr Amer 21 mL/min (>60); Estimated Creatinine Clearance 11.66 ml/min; Glucose 210 mg/dL (74-106); Potassium 4.6 mmol/L (3.5-5.1); Sodium Level 135 mmol/L (136-145)
[2024-06-02] MEDS: 0.9% Normal Saline 1,000 ML IV.SOLN. 1000 ML OPERA.SITE (08:51)
[2024-06-02] MEDS: PureFlow B 2K Dialysis Soln 1 BAG 6 BAG PF (08:51)
[2024-06-02] MEDS: Heparin 10,000 UNITS/10 ML Vial 2000 UNITS IV (08:52)
--- NOTE | 2024-06-02 09:44 | CASEMGMT ---
Addendum entered by Cheng Vinson 06/02/24 13:38: Pt states that he plans to f/u with his OP HD Thursday and denies further concerns at this time. Original Note: Per ICU rounds, pt will likely DC today. TC to [facility]. Anali states that they can resume care tomorrow. RN CM to pt room at this time. Pt is currently getting dialyzed. Pt is currently 97% on RA. Pt updated with the plan of care and pt states that he feels safe with discharging home today with the HH resuming tomorrow and denies further questions, concerns, or needs at this time. DC info updated.
--- NOTE | 2024-06-02 12:50 | PCM.PN.REN ---
Subjective Subjective Resting in bed, just finished dialysis. States feeling better and breathing better. Objective Data Objective Data Vital Signs: Vital Signs Temp Pulse Resp BP Pulse Ox O2 Del Method O2 Flow Rate 97.5 F L 88 16 196/67 H 97 Room Air 2 06/02/24 12:16 06/02/24 12:16 06/02/24 12:16 06/02/24 12:16 06/02/24 12:16 06/02/24 12:16 05/31/24 08:31 FiO2 35 05/31/24 07:32 Oxygen Flow Rate (L/min) 2 Oxygen Delivery Method Room Air Weight: 49.6 kg Body Mass Index (BMI) 17.2 Intake & Output: Intake and Output for Last 24 Hours 05/31/24 06/01/24 06/02/24 23:59 23:59 23:59 Intake Total 540 / 540 Output Total 4535 / 4735 200 / 200 2900 / 2900 Balance -3995 / -4195 -200 / -200 -2900 / -2900 Lab / Micro Data 06/02/24 07:09 06/02/24 07:09 Labs: Laboratory Results - last 24 hr 06/01/24 15:13: POC Glucose 321 H 06/01/24 21:11: POC Glucose 295 H 06/02/24 06:26: POC Glucose 230 H 06/02/24 07:09: WBC 13.0 H, RBC 2.98 L, Hgb 8.9 L, Hct 27.4 L, MCV 91.9, MCH 29.9, MCHC 32.5, RDW Std Deviation 54.0 H, RDW Coeff of Russell 16.3 H, Plt Count 360, MPV 10.9, Immature Gran % (Auto) 0.600, Neut % (Auto) 92.4 H, Lymph % (Auto) 4.3 L, [place] % (Auto) 2.6, Eos % (Auto) 0.0, Baso % (Auto) 0.1, Absolute Neuts (auto) 12.0 H, Absolute Lymphs (auto) 0.56 L, Nucleated RBC % 0, Sodium 135 L, Potassium 4.6, Chloride 101, Carbon Dioxide 24.0, Anion Gap 10, BUN 79 H, Creatinine 3.66 H, Estim Creat Clear Calc 11.66, Est GFR (MDRD) Af Amer 21 L, Est GFR (MDRD) Non-Af 17 L, BUN/Creatinine Ratio 21.6 H, Glucose 210 H, Calcium 9.1 Micro: Microbiology 05/31/24 04:54 Mucosa - Nose SARS-CoV-2, Influenza & RSV (PCR) - Final Physical Exam Narrative Alert and oriented, no apparent distress S1, S2, RRR Diminished breath sounds Abdomen soft, nontender No pitting edema to B/L legs AV fistula left arm Assessment & Plan Assessment/Plan (1) End stage renal disease: PLAN: Plan - ESRD on hemodialysis at [facility] [place] Thursday schedule. Dialysis today with ~2.6L UF, had been attempting to remove more fluid with HD but backed off due to higher heart rates. Post HD weight 49.6 kg. His EDW has been 51 kg at kidney center. Likely will have new lowered dry weight. - history of anemia of chronic disease and receives NIKUNJ and iron at dialysis. Will follow hgb trends. - HTN; On amlodipine, clonidine and metoprolol. Continue to remove fluid with dialysis as patient/blood pressure tolerates. - discharge planning in progress possibly to home today.
[2024-06-02] MEDS: Folic Acid/Vitamin B Comp W-C 1 Capsule 1 CAP PO (13:04)
[2024-06-02] MEDS: Aspirin E.C. 81 MG Tablet PO (13:04)
[2024-06-02] MEDS: Pantoprazole Sodium 40 MG Tablet PO (13:05)
[2024-06-02] MEDS: Calcium Carb/Vitamin D 1 TABLET Tablet PO (13:05)
[2024-06-02] MEDS: Sertraline 50 MG Tablet PO (13:05)
[2024-06-02] MEDS: Magnesium Chloride 64 MG Delay Rel.Tablet 128 MG PO (13:05)
[2024-06-02] MEDS: Cholecalciferol (Vit D3) 125 MCG CAPSULE (5,000 UNITS) PO (13:05)
[2024-06-02] MEDS: cloNIDine HCl 0.1 MG Tablet PO (13:05)
[2024-06-02] MEDS: amLODIPine 5 MG Tablet PO (13:05)
[2024-06-02] MEDS: Furosemide 40 MG Tablet PO (13:05)
[2024-06-02] MEDS: Metoprolol Tartrate 25 MG Tablet PO (13:05)
[2024-06-02] MEDS: Tamsulosin HCl 0.4 MG Capsule PO (13:05)
[2024-06-02] MEDS: Ferrous Sulfate 325 MG Tablet PO (13:06)
[2024-06-02] MEDS: Finasteride 5 MG Tablet PO (13:06)
[2024-06-02] MEDS: Folic Acid 1 MG Tablet 0.5 MG PO (13:06)
[2024-06-02 13:32] LABS: Bedside Glucose 408 mg/dL (74-106)
--- NOTE | 2024-06-02 13:36 | DS.PCM_ITS ---
Providers Date of Admission: 05/31/24 Date of Discharge: 06/02/24 Primary Care Physician: Dr. Cesar Keenan MD Consultations 05/31/24 07:49 Consult: Nephrology Routine Consulting Provider: Maria Guadalupe Townsend Reason for Consult: Dialysis EMERGENT Consult: Yes Notified: Yes Date Notified: 05/31/24 Time Notified: 06:23 Method of Notification: [employer] initiated Reason For Visit: COPD EXACERBATION, ACUTE HYPOXIA ON BIPAP Diagnosis Discharge Diagnosis (1) End stage renal disease: Status: Chronic Code(s): N18.6 - End stage renal disease Plan #Acute exacerbation of COPD * Currently on room air and feels much better. Was on BiPAP on admission is now off BiPAP and on room air. On IV Solu-Medrol 40 mg Q8. * Respiratory panel is negative. Breathing treatments bronchodilators. Titrate oxygen to maintain saturation above 90%. #ESRD: On dialysis. Nephrology on board. #Type 2 diabetes mellitus: On Lantus 20 units daily. Insulin sliding scale. Accu-Cheks ACHS. #Hypertension: On amlodipine and clonidine. Also on furosemide #Depression: on mirtazapine and sertraline. #BPH: on flomax. DVT prophylaxis: SCDs CODE STATUS: Full code Disposition: anticipate dc over the next 24 hours. Medications at Discharge Home Medications aspirin 81 mg tablet,delayed release (Adult Low Dose Aspirin) 81 mg PO QDAY heart [facility] 06/15/17 finasteride 5 mg tablet (Proscar) 5 mg PO DAILY prostate 06/16/17 flash glucose scanning reader (FreeStyle Tani 2 [place]) #2 ea 03/28/22 flash glucose sensor (FreeStyle Tani 2 Sensor kit) #2 ea 03/28/22 cholecalciferol (vitamin D3) 125 mcg (5,000 unit) capsule 125 mcg PO DAILY vitamin 05/05/22 acetaminophen 325 mg tablet 650 mg (2 x 325 mg) PO Q4H PRN PRN Fever, pain - 01/20 #0 tabs 12/12/22 insulin lispro 100 unit/mL subcutaneous pen (Humalog KwikPen (U-100) Insulin) See Protocol subcut ACHS diabetes 01/14/23 calcium 600 mg (as carbonate)-vitamin D3 10 mcg (400 unit) capsule 1 cap PO DAILY vitamin 01/23/23 clonidine HCl 0.1 mg tablet 0.1 mg PO BID blood pressure 01/29/24 folic acid 400 mcg tablet 400 mcg PO DAILY supplement 01/29/24 furosemide 40 mg tablet 40 mg PO DAILY weight gain 01/29/24 magnesium 250 mg tablet 250 mg PO QDAY supplement 01/29/24 pantoprazole 40 mg tablet,delayed release 40 mg PO BID reflux 01/29/24 renal multivitamin 1 tab PO DAILY vitamin 01/29/24 tamsulosin 0.4 mg capsule 0.4 mg PO QDAY prostate 01/29/24 atorvastatin 40 mg tablet 40 mg PO QHS cholesterol 02/24/24 aluminum-mag hydroxide-simethicone 400 mg-400 mg-40 mg/5 mL oral susp (Mag-Al Plus Extra Strength) 30 ml PO Q6H PRN PRN Gastric Burning #0 mL 02/28/24 ferrous sulfate 325 mg (65 mg iron) tablet (Iron (ferrous sulfate)) 325 mg PO DAILY supplement #30 tabs 02/28/24 melatonin 3 mg tablet 3 mg PO QHS PRN PRN Insomnia #0 tabs 02/28/24 sertraline 50 mg tablet 50 mg PO DAILY mood 02/29/24 bisacodyl 5 mg tablet,delayed release 10 mg (2 x 5 mg) PO DAILY constipation #0 tabs 03/02/24 sennosides 8.6 mg-docusate sodium 50 mg tablet (Stimulant Laxative Plus) 2 tab PO BID constipation #0 tabs 03/02/24 mirtazapine 15 mg tablet (Remeron) 3.75 mg (1/4 x 15 mg) PO QHS sleep #30 tabs 04/29/24 insulin glargine 100 unit/mL (3 mL) subcutaneous pen (Lantus Solostar U-100 Insulin) 20 unit (0.2 mL) subcut QPM DM #15 mL 05/18/24 vitamins A,C,P-ggqp-mswfez 4,296 mcg-226 mg-90 mg capsule 1 cap PO DAILY vitamin 05/18/24 amlodipine 10 mg tablet 10 mg PO DAILY #30 tabs 06/02/24 metoprolol tartrate 50 mg tablet 50 mg PO DAILY #30 tabs 06/02/24 prednisone 20 mg tablet 40 mg (2 x 20 mg) PO DAILY #10 tabs 06/02/24 Hospital Course Operations None Procedures Dialysis Summary of Care Provided Minutes Spent on Discharge: 47 Hospital Course: Patient is an 78-year-old male with a past medical history as outlined was admitted through the ED on 05/31/2024 with complaint of shortness of breath and wheezing. He was hypoxic with saturation being 70% on room air. He was brought to the ED by the squad. He denied any fever or chills or any upper respiratory tract symptoms. He was due for dialysis on the day he came in. He initially required BiPAP but was eventually transitioned to oxygen by nasal cannula. He was admitted and managed for acute exacerbation of COPD. He was placed on IV Solu-Medrol and breathing treatments bronchodilators. Respiratory panel was negative. Patient was weaned off of oxygen on room air and did well. He had dialysis during this admission. Hospital course was complicated by markedly elevated blood pressure. His medications were therefore adjusted with amlodipine be increased to 10 mg daily and metoprolol being increased to 50 mg twice daily. Blood pressure improved as at time of discharge and was in the 140s systolic. He was discharged home on 06/02/2024 on p.o. prednisone 40 mg daily for 5 days. He is to follow-up with his primary care doctor within 1 to 2 weeks. Patient seen and examined prior to discharge. He had no active complaints. Review of systems otherwise negative. Labs and vitals reviewed. Home medication reviewed and reconciled. Physical Exam Const alert, oriented x3 and no apparent distress Constitutional Narrative: frail General Appearance: cooperative, comfortable, well kempt and well developed Orientation / Consciousness: awake HEENT normocephalic, head/scalp atraumatic, hearing grossly normal bilaterally, moist oral mucous membranes and oropharynx normal Mouth: oral and palatal mucosa normal Eyes PERRL and EOMs intact bilaterally Neck no lymphadenopathy and supple Lymph Lymphatic: no lymphadenopathy noted and no lymphedema noted Resp normal respiratory effort and normal air movement Cardio regular rate, regular rhythm, S1 normal heart sound, S2 normal heart sound and no murmurs GI normal to inspection, nondistended, normoactive bowel sounds, soft to palpation, non-tender and non-distended Extremity normal to inspection, full ROM, normal capillary refill, no clubbing, cyanosis or edema and no calf tenderness General Extremity: no tenderness to palpation of joints or extremities Skin no rashes or lesions noted General Skin Exam: no breakdown Neuro oriented x3, CN's II-XII intact bilaterally, moves all extremities, no focal motor deficits and no sensory deficits noted Sensorium / Orientation: awake and alert Motor Exam: strength 5/5 throughout Psych thought process normal, cooperative and affect normal Appearance: appropriate Weight / BMI Weight Weight: 109 lb 5.588 oz Body Mass Index (BMI) 17.2 ABG / Lab / Microbiology Data 06/02/24 07:09 06/02/24 07:09 Laboratory: Laboratory Results - last 24 hr 06/01/24 21:11: POC Glucose 295 H 06/02/24 06:26: POC Glucose 230 H 06/02/24 07:09: WBC 13.0 H, RBC 2.98 L, Hgb 8.9 L, Hct 27.4 L, MCV 91.9, MCH 29.9, MCHC 32.5, RDW Std Deviation 54.0 H, RDW Coeff of Russell 16.3 H, Plt Count 360, MPV 10.9, Immature Gran % (Auto) 0.600, Neut % (Auto) 92.4 H, Lymph % (Auto) 4.3 L, [place] % (Auto) 2.6, Eos % (Auto) 0.0, Baso % (Auto) 0.1, Absolute Neuts (auto) 12.0 H, Absolute Lymphs (auto) 0.56 L, Nucleated RBC % 0, Sodium 135 L, Potassium 4.6, Chloride 101, Carbon Dioxide 24.0, Anion Gap 10, BUN 79 H, Creatinine 3.66 H, Estim Creat Clear Calc 11.66, Est GFR (MDRD) Af Amer 21 L, E st GFR (MDRD) Non-Af 17 L, BUN/Creatinine Ratio 21.6 H, Glucose 210 H, Calcium 9.1 06/02/24 13:11: POC Glucose 408 H Microbiology: Microbiology 05/31/24 04:54 Mucosa - Nose SARS-CoV-2, Influenza & RSV (PCR) - Final D/C Instructions Discharge Diet: Low fat / Low cholesterol Discharge Activity: Return to Normal Activity Weight Bearing Status: Weight bearing as tolerated Call your doctor if you observe: Fever of 101 or Higher, Shortness of breath, Dizziness, Swelling in the ankles and Chest pain DC O2, CPAP, BIPAP Needs PSN CPAP & BiPAP: BiPAP & CPAP Settings per PSN Mode AVAPS 05/31/24 04:44 Bipap Delivery Device Face Mask 05/31/24 04:44 BiPAP Expiratory Pressure 8 05/31/24 04:44 BiPAP Rate 14 05/31/24 04:44 Fraction of Inspired Oxygen ( 35 05/31/24 07:32 FIO2) Home O2 Discharge instructions: No DC home with Oxygen: No Meaningful Use Info Meaningful Use Meaningful Use Diagnoses (Choose all that apply): None applicable Ischemic Stroke Statin Dosing Therapy Reference: STATIN DOSE THERAPY REFERENCE: * Patients > 75 years receive moderate or high dose statin therapy. * Patients 75 years or YOUNGER should receive HIGH intensity statin dose unless contraindicated. You will be required to document reason for non-treatment if statin daily dose does not meet guidelines. HIGH DOSE STATIN THERAPY DAILY Atorvastatin > than or = to 40 mg Rosuvastatin > than or = to 20 mg Amlodipine + Atorvastatin > than or = to 2.5/40 mg Ezetimibe + Simvastatin 10/80 mg Simvastatin 80mg Discharge Plan Admission Admit Date/Time: 05/31/24 06:19 Primary Reason for Your Visit: COPD exacerbation Attending Provider: Deisi Heredia Primary Care Provider: Cesar Keenan Consulting Providers: Luis Leung; Maria Guadalupe Townsend; Andreas Herndon Instructions Patient Instructions: Discharge Instructions: COPD, COPD Controlled Breathing Dc Discharge Orders/Prescriptions Prescriptions: New amlodipine 10 mg tablet 10 mg PO DAILY Qty: 30 2RF metoprolol tartrate 50 mg tablet 50 mg PO DAILY Qty: 30 2RF prednisone 20 mg tablet 40 mg PO DAILY Qty: 10 0RF Continued aspirin [Adult Low Dose Aspirin] 81 mg tablet,delayed release (DR/EC) 81 mg PO QDAY finasteride [Proscar] 5 mg tablet 5 mg PO DAILY folic acid 400 mcg tablet 400 mcg PO DAILY (DME) FreeStyle Tani 2 Sensor Kit See Rx Instructions .Route Qty: 2 3RF Rx Instructions: As directed (DME) FreeStyle Tani 2 [place] Misc See Rx Instructions .Route Qty: 2 3RF Rx Instructions: As directed cholecalciferol (vitamin D3) 125 mcg (5,000 unit) capsule 125 mcg PO DAILY insulin lispro [Humalog KwikPen Insulin] 100 unit/mL insulin pen See Protocol subcut ACHS Protocol: 4. Sliding Scale Insulin High-Med Dosing Condition: 150-199 mg/dl = 2 units Condition: 200-259 mg/dl = 4 units Condition: 260-324 mg/dl = 6 units Condition: 325-374 mg/dl = 8 units Condition: 375-409 mg/dl = 10 units Condition: 410-449 mg/dl = 11 units Condition: Greater than 449 call physician Protocol Text: - Use for Total Daily Dose of Insulin 56-80 units - Patient who are insulin resistant or septic HIGH MEDIUM DOSING ALGORITHM calcium carbonate-vitamin D3 600 mg-10 mcg (400 unit) capsule 1 cap PO DAILY furosemide 40 mg tablet 40 mg PO DAILY tamsulosin 0.4 mg capsule 0.4 mg PO QDAY pantoprazole 40 mg tablet,delayed release (DR/EC) 40 mg PO BID renal multivitamin 1 tab PO DAILY clonidine HCl 0.1 mg tablet 0.1 mg PO BID magnesium 250 mg tablet 250 mg PO QDAY mirtazapine [Remeron] 15 mg tablet 3.75 mg PO QHS Qty: 30 1RF acetaminophen 325 mg Tablet 650 mg PO Q4H PRN PRN (Reason: Fever, pain -01/20) Qty: 0 0RF sertraline 50 mg tablet 50 mg PO DAILY bisacodyl 5 mg Tablet,Delayed Release (Dr/Ec) 10 mg PO DAILY Qty: 0 0RF Rx Instructions: Daily for 3 more days and then as needed sennosides-docusate sodium [Stimulant Laxative Plus] 8.6-50 mg Tablet 2 tab PO BID Qty: 0 0RF atorvastatin 40 mg tablet 40 mg PO QHS melatonin 3 mg Tablet 3 mg PO QHS PRN PRN (Reason: Insomnia) Qty: 0 0RF alum-mag hydroxide-simeth [Mag-Al Plus Extra Strength] 400-400-40 mg/5 mL Suspension 30 ml PO Q6H PRN PRN (Reason: Gastric Burning) Qty: 0 0RF ferrous sulfate [Iron (ferrous sulfate)] 325 mg (65 mg iron) tablet 325 mg PO DAILY Qty: 30 0RF insulin glargine [Lantus Solostar U-100 Insulin] 100 unit/mL (3 mL) insulin pen 20 unit SC QPM Qty: 15 0RF vitamins A,C,J-pxsv-lvmocp 4,296 mcg-226 mg-90 mg capsule 1 cap PO DAILY Discontinued amlodipine 5 mg tablet 5 mg PO DAILY metoprolol tartrate 25 mg tablet 25 mg PO DAILY Rx Instructions: Hold for SBP less than 130 Referrals / Follow Up: Cesar Keenan MD [Primary Care Provider] - Within 1 Week Disposition Disposition (needs filled in before D/C Order can be placed): Home, Self Care Charges/Coding Visit Charges Inpatient E&M: 41171 Disch Hosp >30min
== END 2024-06-02 14:50 | disposition home health service (06) | DRG 189 ==
LOC: ED 05:19 → ICU 07:05
PROVIDERS: Family Medicine; Admitting Provider Family Medicine; Emergency Provider Surgery; PCP Internal Medicine; Visit Provider Student in an Organized Health Care Education/Training Program
DX: J96.01 Acute respiratory failure with hypoxia (principal); N18.6 End stage renal disease; J18.9 Pneumonia, unspecified organism; I13.2 Hypertensive heart and chronic kidney disease with heart failure and with stage 5 chronic kidney disease, or end stage renal disease; I50.22 Chronic systolic (congestive) heart failure; J44.1 Chronic obstructive pulmonary disease with (acute) exacerbation; J44.0 Chronic obstructive pulmonary disease with (acute) lower respiratory infection; D63.8 Anemia in other chronic diseases classified elsewhere; Z99.2 Dependence on renal dialysis; E10.22 Type 1 diabetes mellitus with diabetic chronic kidney disease; I35.0 Nonrheumatic aortic (valve) stenosis; F32.A Depression, unspecified; J43.2 Centrilobular emphysema; E10.42 Type 1 diabetes mellitus with diabetic polyneuropathy; E78.2 Mixed hyperlipidemia; Z79.4 Long term (current) use of insulin; I25.10 Atherosclerotic heart disease of native coronary artery without angina pectoris; F17.210 Nicotine dependence, cigarettes, uncomplicated; E10.319 Type 1 diabetes mellitus with unspecified diabetic retinopathy without macular edema; E10.65 Type 1 diabetes mellitus with hyperglycemia; G89.29 Other chronic pain; N40.0 Benign prostatic hyperplasia without lower urinary tract symptoms; Z11.52 Encounter for screening for COVID-19; Z79.82 Long term (current) use of aspirin; Z79.899 Other long term (current) drug therapy
CPT/HCPCS: 36415; 36600; 71045; 80048; 82803; 82962; 83880; 84484; 85025; 87631; 90937; 93005; 94002; 94640; 94668; 94762; 97166; 99252; 99285; A4216; G0257; G0463

== ENCOUNTER → 2024-06-27 | Outpatient (CLI) | payer MEDICARE, OTHER, SELFPAY ==
--- NOTE | 2024-06-27 09:10 | RAD_ITS ---
PROCEDURE: FOOT MIN 3 VIEWS 06/27/2024 REASON FOR EXAM: PAIN TECHNIQUE: Three-view right foot COMPARISON: None. FINDINGS: Large bunion deformity. Hallux valgus. Scattered degenerative changes. Soft tissue swelling seen adjacent to the 5th metatarsal. If persistent concern, consider ultrasound or MRI RAD/Foot min 3 Views IMPRESSION: No acute osseous abnormality. Large bunion with hallux valgus. If concern for soft tissue cyst or mass, consider ultrasound or MRI Reading Location: [id number]
== END | disposition home or self-care (01) ==
LOC: MTRAD 09:07
PROVIDERS: PCP Internal Medicine; Referring Provider Physician Assistant; Visit Provider Physician Assistant
DX: M79.671 Pain in right foot (principal)
CPT/HCPCS: 73630

== ENCOUNTER → 2024-08-08 | Outpatient (CLI) | payer MEDICARE, OTHER, SELFPAY ==
[2024-08-08 16:18] LABS: PSA,Total- Diagnostic 4.86 ng/mL (0.00-4.00)
== END | disposition home or self-care (01) ==
LOC: MTLAB 11:13
PROVIDERS: PCP Internal Medicine; Referring Provider Urology; Visit Provider Urology
DX: C61 Malignant neoplasm of prostate (principal)
CPT/HCPCS: 36415; 84153

== ENCOUNTER → 2024-09-21 | Outpatient (CLI) | payer MEDICARE, OTHER, SELFPAY ==
--- NOTE | 2024-09-21 16:01 | CT_ITS ---
PROCEDURE: CHEST WITHOUT CONTRAST 09/21/2024 REASON FOR EXAM: CALCIFIED GRANULOMA TECHNIQUE: Chest CT without contrast. Coronal and Sagittal reconstruction series were provided. One or more dose reduction techniques were used (e.g., Automated exposure control, adjustment of the mA and/or kV according to patient size, use of iterative reconstruction technique RADIATION DOSE SUMMARY: CTDlvol: 6.13 mGy DLP: 232.9 mGycm COMPARISON: Chest radiograph on 05/31/2024. FINDINGS: Moderate emphysema. Unchanged moderate left pleural effusion. Unchanged passive atelectatic airspace disease/consolidation of the left lower lobe. Unchanged subsegmental atelectasis in the right lower lobe. 1 cm calcified granuloma in the left upper lobe. 1 cm calcified granuloma in the left lower lobe. Left basilar benign-looking chronic pleural calcification. Diffuse spondylosis. Moderate cardiomegaly. Moderate coronary artery calcifications. Mild osteopenia. Moderate diffuse spondylosis. Calcified splenic granulomas. Normal unenhanced main pulmonary artery and right and left pulmonary arteries. Normal bilateral peripheral pulmonary arteries. Calcified atheromatous plaques of the thoracic aorta and visualized great vessels. There is no demonstrated aortic aneurysm. Normal pericardium. Normal mediastinum. Normal hilar regions. Normal visualized trachea and bronchi. Normal remaining visualized upper abdomen. CT/Chest without Contrast IMPRESSION: Coronary artery calcification (CAC) is is present. Moderate emphysema. Unchanged moderate left pleural effusion. Unchanged passive atelectatic airspace disease/consolidation of the left lower lobe. Unchanged subsegmental atelectasis in the right lower lobe. 1 cm calcified granuloma in the left upper lobe. 1 cm calcified granuloma in the left lower lobe. Left basilar benign-looking chronic pleural calcification. Diffuse spondylosis. Moderate cardiomegaly. Moderate coronary artery calcifications. Mild osteopenia. Moderate diffuse spondylosis. Calcified splenic granulomas. Reading [facility]
== END | disposition home or self-care (01) ==
LOC: CT 15:59
PROVIDERS: PCP Internal Medicine; Referring Provider Nurse Practitioner Acute Care; Visit Provider Nurse Practitioner Acute Care
DX: J98.4 Other disorders of lung (principal)
CPT/HCPCS: 71250

== ENCOUNTER → 2024-11-09 | Outpatient (CLI) | payer MEDICARE, OTHER, SELFPAY ==
--- NOTE | 2024-11-09 08:46 | CDU_ITS ---
Reason For Study Reason For Study: Carotid stenosis Rt. Velocities/BP Lt. Velocities/BP Prox CCA 65.5/5 cm/sec. Prox CCA 60.5/7.7 cm/sec. Mid CCA 45.6/6 cm/sec. Mid CCA 66.7/9 cm/sec. Dist CCA 51.3/7.8 cm/sec. Dist CCA 45.4/5.8 cm/sec. Prox ICA 146.7/9.7 cm/sec. Prox ICA 64.1/13.5 cm/sec. Mid ICA 120.9/12.5 cm/sec. Mid ICA 86.1/16.8 cm/sec. Dist ICA 60.8/10.2 cm/sec. Dist ICA 117.9/20.6 cm/sec. Rt. ICA/CCA = 3.22. Lt. ICA/CCA = 1.77. Prox ECA 82.6 cm/sec. Prox ECA 85 cm/sec. Rt. Vert. 282.2/49.5 cm/sec. Lt. Vert. 48.7/12.4 cm/sec. Right Extracranial There is heterogeneous, irregular atherosclerotic plaque noted in the right common carotid artery. There is heterogeneous, irregular atherosclerotic plaque noted in the right internal carotid artery. The atherosclerotic plaque causes acoustic shadowing. There is heterogeneous, irregular atherosclerotic plaque noted in the right external carotid artery. Antegrade flow is noted in the right vertebral artery. Left Extracranial There is heterogeneous, irregular atherosclerotic plaque noted in the left common carotid artery. There is heterogeneous, irregular atherosclerotic plaque noted in the left internal carotid artery. The left internal carotid artery is very tortuous. There is heterogeneous, irregular atherosclerotic plaque noted in the left external carotid artery. Procedure Carotid Duplex [id number]. This is a Carotid Duplex examination using B-mode, color flow and specral Doppler. Exam performed in department. VL/Carotid Duplex Ultrasound Interpretation Summary Moderate (50-69%) stenosis right extracranial internal carotid. Mild (<50%) stenosis left extracranial internal carotid. Patent and antegrade vertebrals bilaterally. Limited due to calcific shadowing. Ordering Physician: Nohemi Bradshaw Referring Physician: Cesar Keenan Performed By: Courtney Muhammad RVT
== END | disposition home or self-care (01) ==
LOC: CVS 08:44
PROVIDERS: PCP Internal Medicine; Referring Provider Physician Assistant; Visit Provider Physician Assistant
DX: I65.23 Occlusion and stenosis of bilateral carotid arteries (principal)
CPT/HCPCS: 93880

== ENCOUNTER 2025-02-07 05:38 | Inpatient (IN) | payer MEDICARE, OTHER, SELFPAY ==
[2025-02-07] VITALS (22 sets, daily range): BP systolic 121–183; BP diastolic 55–85; PULSE 63–77; RESP 14–22; TEMP 36.3–37.1; O2SAT 85–96; BMI 19.0; BMI 18.4; BMI 17.3
[2025-02-07 06:12] LABS: Hematocrit 28.8 % (40-54); Hemoglobin 9.8 g/dL (13.0-16.5); Immature Granulocytes Count 0.030 X10^3/uL (0.0-0.0); Mean Corp Hgb Conc 34.0 g/dL (32-36); Mean Corpuscular Volume 93.8 fL (80-94); Mean Platelet Vol. 10.8 fl (6.2-12.0); NRBC Flagged by Analyzer 0 % (0-5); Platelet Count 330 K/mm3 (150-450); RBC Distribution Width CV 13.0 % (11.6-14.6); RBC Distribution Width SD 44.2 fl (35.1-43.9); Red Blood Count 3.07 M/mm3 (4.6-6.2); White Blood Count 7.5 K/mm3 (4.4-11.0)
--- NOTE | 2025-02-07 06:25 | RAD_ITS ---
PROCEDURE: RAD/Chest 1 View (Portable)
[2025-02-07 06:44] LABS: Anion Gap 14 (5-15); BUN 55 mg/dL (4-19); BUN/Creat Ratio 13.6 RATIO (10-20); Calcium,Total 8.2 mg/dL (7.6-11.0); Carbon Dioxide 26.8 mmol/L (21.0-32.0); Chloride 98 mmol/L (98-108); Estimated Creatinine Clearance 11.20 ml/min (50-250); Glucose 172 mg/dL (70-99); Magnesium 2.1 mg/dL (1.5-2.2); Potassium 3.8 mmol/L (3.3-5.1)
--- NOTE | 2025-02-07 07:17 | EX.ED.DYSGE1 ---
HPI History of Present Illness Chief Complaint: Shortness of Breath Informant: patient and spouse/S.O. Narrative Narrative: Patient is a 79-year-old male with history of end-stage renal disease on dialysis. He states he has dialysis Thursday and Thursday and received his Thursday as he was supposed to. He also has a history of COPD and type 1 diabetes. He states for the past 2 or 3 days he has felt short of breath. He denies any fevers or chills associate with this. He states there is no significant congestion or cough. He states he went to bed last night and then awoke with increased shortness of breath and he felt like he cannot go to dialysis because of the worsening shortness of breath and therefore EMS was called and he was brought in for evaluation Of note he was 85% on room air and he states he does not have need for supplemental oxygen at baseline. [facility] Medical History Unexplained weight loss Type 1 diabetes mellitus with hyperglycemia COPD (chronic obstructive pulmonary disease) Insomnia Anorexia Fracture of femoral neck, right, open Carotid stenosis Anxiety and depression Carotid artery disease Lipohypertrophy due to insulin injection Dyslipidemia Carotid bruit Coronary artery disease Chronic neck pain Debility Cancer Open wound Polymyalgia arteritica Low iron Leg cramps History of edema Cardiology follow-up encounter Prostate cancer Dependent on hemodialysis NPDR (nonproliferative diabetic retinopathy) Nonrheumatic aortic (valve) stenosis History of non-ST elevation myocardial infarction (NSTEMI) End stage renal disease Leukocytosis Edema of left upper arm HFrEF (heart failure with reduced ejection fraction) Acquired neutrophilia Aortic valve stenosis 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 1 diabetes mellitus Chronic neck and back pain Skin mole Fatigue Watery eyes CKD (chronic kidney disease) stage 4, GFR 15-29 ml/min Aortic root dilatation Olecranon bursitis, left elbow Mediastinal mass Olecranon bursitis, right elbow Unintentional weight loss of more than 10 pounds Swelling of right elbow Heart murmur Contact with or suspected exposure to other viral communicable disease Acute bronchitis Insulin dependent diabetes mellitus CKD (chronic kidney disease), stage IV Osteopenia Wears hearing aid Wears glasses Wears dentures Alcohol use Insulin dependent diabetes mellitus Arthritis High cholesterol Back pain Dietary restriction Former smoker Shortness of breath on exertion History of pain when walking History of stress test History of echocardiogram Nicotine dependence, cigarettes, uncomplicated Episode of syncope Mass of lung REYES (dyspnea on exertion) Wears hearing aid in both ears Hearing loss, left Hearing loss, right Kidney stones Smoker Hypertension Chronic kidney insufficiency Diabetic retinopathy associated with type 1 diabetes mellitus Benign essential hypertension Stage 3 chronic kidney disease due to type 1 diabetes mellitus Diabetic polyneuropathy associated with type 1 diabetes mellitus Essential hypertension Mixed hyperlipidemia Vision problem Prostate disease Osteoarthritis Hearing problem COPD (chronic obstructive pulmonary disease) Cataracts, bilateral Bone fracture Back problem Anemia Bronchitis Family history of hyperlipidemia Family history of hypertension Headache Dyspnea on exertion Hyperlipidemia Nicotine abuse Atherosclerotic heart disease of [place] coronary artery without angina pectoris 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 Sleep apnea Hypertension Home Medications ?Medication ?Instructions ?Recorded ?Last Taken ?Type aspirin 81 mg tablet,delayed 81 mg PO QDAY heart health 06/15/17 03/01/23 History release (Adult Low Dose Aspirin) finasteride 5 mg tablet (Proscar) 5 mg PO DAILY prostate 06/16/17 Unknown History flash glucose scanning reader #2 ea 03/28/22 Unknown Rx (FreeStyle Tani 2 [place]) flash glucose sensor (FreeStyle #2 ea 03/28/22 Unknown Rx Tani 2 Sensor kit) cholecalciferol (vitamin D3) 125 125 mcg PO DAILY vitamin 05/05/22 Unknown History mcg (5,000 unit) capsule acetaminophen 325 mg tablet 650 mg (2 x 325 mg) PO Q4H PRN PRN 12/12/22 Unknown Rx Fever, pain 1-01/20 #0 tabs insulin lispro 100 unit/mL See Protocol subcut ACHS diabetes 01/14/23 Unknown History subcutaneous pen (Humalog KwikPen (U-100) Insulin) calcium 600 mg (as 1 cap PO DAILY vitamin 01/23/23 Unknown History carbonate)-vitamin D3 10 mcg (400 unit) capsule clonidine HCl 0.1 mg tablet 0.1 mg PO BID blood pressure 01/29/24 Unknown History furosemide 40 mg tablet 40 mg PO DAILY weight gain 01/29/24 Unknown History magnesium 250 mg tablet 250 mg PO QDAY supplement 01/29/24 Unknown History pantoprazole 40 mg tablet,delayed 40 mg PO BID reflux 01/29/24 Unknown History release renal multivitamin 1 tab PO DAILY vitamin 01/29/24 Unknown History tamsulosin 0.4 mg capsule 0.4 mg PO QDAY prostate 01/29/24 Unknown History atorvastatin 40 mg tablet 40 mg PO QHS cholesterol 02/24/24 Unknown History ferrous sulfate 325 mg (65 mg 325 mg PO DAILY supplement #30 tabs 02/28/24 Unknown Rx iron) tablet (Iron (ferrous sulfate)) insulin glargine 100 unit/mL (3 20 unit (0.2 mL) subcut QPM DM #15 05/18/24 Unknown Rx mL) subcutaneous pen (Lantus mL Solostar U-100 Insulin) amlodipine 10 mg tablet 10 mg PO DAILY #30 tabs 06/02/24 Unknown Rx metoprolol tartrate 50 mg tablet 50 mg PO DAILY #30 tabs 06/02/24 Unknown Rx tramadol 50 mg tablet 50 mg PO TID PRN pain 10/10/24 Unknown History B1 2 mg-B6 4 mg-folate 800 mcg cap PO 12/28/24 Unknown History [id number]. gasseri-herb capsule docusate sodium 100 mg capsule 100 mg PO QDAY 12/28/24 Unknown History (Colace) duloxetine 30 mg capsule,delayed 30 mg PO QDAY 12/28/24 Unknown History release Allergy/AdvReac Type Severity Reaction Status Date / Time levofloxacin (From Melophone) Allergy Hives Verified 02/07/25 06:03 vancomycin AdvReac Severe Rash Verified 02/07/25 06:03 Family History Father Diabetes Hypertension Family history of hyperlipidemia Asthma Kidney disease Mother Diabetes Brother Cancer Throat cancer Brother CAD (coronary artery disease) Myocardial infarction, Onset Age: 52 Sister Family history of hyperlipidemia Hypertension Diabetes Unknown Alcoholism Arthritis Depression Diabetes Hypertension Hyperlipidemia Osteoporosis Respiratory disease Pancreatic cancer Other Family history of hypertension Surgical History History of hip surgery S/P arteriovenous (AV) fistula creation Fracture of left patella Wrist fracture, bilateral Fracture of left upper extremity History of colonoscopy (~2013) History of bilateral inguinal hernia repair (~2007) History of hernia repair (~1991) History of hemorrhoidectomy (~2000) stent replacement for right sided kidney stome Social History household members: spouse Smoking Status: Light Smoker (<10/day) Tobacco: How many years used: 50 alcohol intake: never substance use type: does not use caffeine: Yes Type: coffee Number of servings: 2 what type of physical activity do you participate in: none seatbelt use: sometimes do you feel safe at home: Yes ROS ROS ED Constitutional Constitutional ED: Denies chills or fever(s) Eyes Eyes: Denies change in vision ENT ENT ED: Denies rhinorrhea or sore throat Cardiovascular Cardiovascular: Denies chest pain Respiratory/Chest Respiratory/Chest: Reports dyspnea; Denies cough Gastrointestinal Gastrointestinal: Denies abdominal pain, diarrhea, nausea or vomiting Musculoskeletal Musculoskeletal: Denies myalgias Integumentary Denies rash Neurologic Neurologic: Denies headache(s) Hematologic/Lymphatic Hematologic/Lymphatic: Denies easy bleeding or easy bruising EXAM Physical Exam Const Vital Signs: 02/07/25 05:40 02/07/25 05:44 02/07/25 05:45 Temperature 97.6 F L 97.6 F L Temperature Source Oral Oral Pulse Rate 72 70 Respiratory Rate 22 H 19 H Respiratory Effort Short of Breath Respiratory Pattern Tachypnea Blood Pressure 121/68 H 121/68 H Blood Pressure Mean 85 85 Pulse Ox 85 92 Oxygen Delivery Method Room Air Nasal Cannula Nasal Cannula Oxygen Flow Rate (L/min) 2 2 02/07/25 06:01 02/07/25 06:01 02/07/25 06:44 Temperature 97.6 F L Temperature Source Oral Pulse Rate 70 68 Respiratory Rate 16 17 Respiratory Effort Respiratory Pattern Normal Blood Pressure 129/62 H Blood Pressure Mean 84 Pulse Ox 91 90 Oxygen Delivery Method Nasal Cannula Nasal Cannula Oxygen Flow Rate (L/min) 2 2 02/07/25 07:00 Temperature 97.9 F Temperature Source Oral Pulse Rate 68 Respiratory Rate 20 H Respiratory Effort Respiratory Pattern Blood Pressure 130/73 H Blood Pressure Mean 92 Pulse Ox 91 Oxygen Delivery Method Nasal Cannula Oxygen Flow Rate (L/min) Positive well nourished and well developed General Appearance ED: well developed; Negative for pallor HEENT HEENT Narrative: Normocephalic atraumatic No tongue or lip swelling no oral lesions no airway edema or compromise There is mild cobblestoning in the posterior pharynx without secondary findings to suggest infection Eyes PERRL and EOMs intact bilaterally General Eye ED: Negative for scleral icterus Neck supple and no JVD Chest Wall palpation of chest normal Resp normal respiratory effort Resp Narrative: Breath sounds are diminished throughout with crackles noted in the left base and midlung No significant inspiratory expiratory wheeze noted. No nasal flaring or retractions or accessory muscle use Cardio regular rate and regular rhythm Rate: other Other Details: Heart is regular rate and rhythm with occasional ectopic beat noted Grade 5 out of 6 systolic murmur noted GI normal to inspection, nondistended, normoactive bowel sounds, non-tender, non-distended and no masses GI Narrative: No voluntary guarding or rigidity or pulsatile mass No fluid wave noted Auscultation: normoactive bowel sounds Palpation: soft Extremity Extremity Narrative: Trace to +1 pitting edema to the bilateral lower extremities that is equal and symmetric Negative Homans' sign bilaterally Fistula present in the left upper extremity with palpable thrill and good bruit Neuro oriented x3, CN's II-XII intact bilaterally and no sensory deficits noted Sensorium / Orientation: alert Motor Exam: strength 5/5 throughout Psych mental status grossly normal Mood & Affect: Negative for anxious Skin no rashes or lesions noted General Skin Exam: Negative for jaundice or pallor MDM MDM MDM Narrative Medical decision making narrative: Patient presented to the ER hypoxic with a room air pulse ox of 85%. Despite his history of COPD he states he does not require oxygen at baseline. With potential for worsening pleural effusion/volume overload versus COPD exacerbation versus pneumonia versus lab abnormality such as acute blood loss anemia or potential infectious process such as COVID influenza or RSV I did elect to check basic labs as well as a chest x-ray. Labs revealed elevation to his creatinine consistent with end-stage renal disease but otherwise no clinically significant finding. Chest x-ray showed a moderate to large left-sided pleural effusion. There was question of a potential right sided infiltrate but chart review reveals that this was present in September and the patient does not have a fever or white count I do not feel this is a new onset or true infection. With his history of COPD I did give a DuoNeb to see if this would open him up and provide a greater amount of wheezes and/or symptom improvement. The breathing treatment did minimal for the patient. I feel that his shortness of breath is most likely due to his underlying renal failure and aortic stenosis leading to worsening pleural effusions and vascular congestion. At this time as he is hypoxic on room air and does not have oxygen at home I do not feel he is safe for discharge. I do feel he would benefit from dialysis today as well as potential pulmonology consultation to discuss thoracentesis for the persistent pleural effusion. Secondary to this I discussed the case with the hospitalist who agrees to accept the patient for continued care History & Record Review Discussion w/independent historian: Patient and Significant other Lab Data Attestation: I reviewed the patient's lab results. Labs: Laboratory Results - last 24 hr 02/07/25 05:44 WBC 7.5 RBC 3.07 L Hgb 9.8 L Hct 28.8 L MCV 93.8 MCH 31.9 MCHC 34.0 RDW Std Deviation 44.2 H RDW Coeff of Russell 13.0 Plt Count 330 MPV 10.8 Immature Gran % (Auto) 0.400 Neut % (Auto) 74.3 H Lymph % (Auto) 10.9 L [place]cher % (Auto) 10.5 H Eos % (Auto) 3.1 Baso % (Auto) 0.8 Absolute Neuts (auto) 5.6 Absolute Lymphs (auto) 0.82 L Nucleated RBC % 0 Sodium 139 Potassium 3.8 Chloride 98 Carbon Dioxide 26.8 Anion Gap 14 BUN 55 H Creatinine 4.03 H Estim Creat Clear Calc 11.20 L Est GFR (MDRD) Non-Af 14 L BUN/Creatinine Ratio 13.6 Glucose 172 H Calcium 8.2 Phosphorus 5.9 H Magnesium 2.1 Radiography Diagnostic Testing: Clinical Impression(s) from Imaging Studies Chest X-Ray 02/07/25 06:25 IMPRESSION: There is cardiomegaly with prominent central vascular markings. There is interval increasing left pleural effusion which now extends to the apex. There is interstitial infiltrate in the right lung base which appears increased. Reading Location: [facility] 1 view chest x-ray as interpreted by the emergency medicine physician reveals cardiomegaly with large left-sided pleural effusion and hazy opacity in the right lung base Management Discussion w/another healthcare provider: Hospitalist Discharge Plan Dx/Rx/DC Orders Clinical Impression: End stage renal disease on dialysis, Pleural effusion, left, Hypoxia, COPD (chronic obstructive pulmonary disease), Type 1 diabetes mellitus Disposition Disposition: Acute Care Hospital [facility] Discharge Date/Time: 02/07/25 07:46
[2025-02-07] MEDS: 0.9% Normal Saline 1,000 ML IV.SOLN. 1000 ML OPERA.SITE (09:10)
[2025-02-07] MEDS: PureFlow B 3K Dialysis Soln 1 BAG 6 BAG PF (09:10)
--- NOTE | 2025-02-07 10:01 | PCM.HP.STD ---
HPI - General General Date of Admission: 02/07/25 HPI Narrative DEX VALLE, is a 79 M who presents to the hospital with shortness of breath. Chest x-ray demonstrated a possible infiltrate in the right lower lobe with increasing left-sided edema. He was on 2 L nasal cannula for hypoxia in the emergency room where he normally does not wear any oxygen at all. He denies any chest pain or lightheadedness. No recent fevers or chills, no leukocytosis in the ER, no upper respiratory infection and he tested positive for COVID, flu, RSV. Today is a dialysis day so given his hypoxia and the need for dialysis did recommend admission. [facility] Medical History Unexplained weight loss Type 1 diabetes mellitus with hyperglycemia COPD (chronic obstructive pulmonary disease) Insomnia Anorexia Fracture of femoral neck, right, open Carotid stenosis Anxiety and depression Carotid artery disease Lipohypertrophy due to insulin injection Dyslipidemia Carotid bruit Coronary artery disease Chronic neck pain Debility Cancer Open wound Polymyalgia arteritica Low iron Leg cramps History of edema Cardiology follow-up encounter Prostate cancer Dependent on hemodialysis NPDR (nonproliferative diabetic retinopathy) Nonrheumatic aortic (valve) stenosis History of non-ST elevation myocardial infarction (NSTEMI) End stage renal disease Leukocytosis Edema of left upper arm HFrEF (heart failure with reduced ejection fraction) Acquired neutrophilia Aortic valve stenosis 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 1 diabetes mellitus Chronic neck and back pain Skin mole Fatigue Watery eyes CKD (chronic kidney disease) stage 4, GFR 15-29 ml/min Aortic root dilatation Olecranon bursitis, left elbow Mediastinal mass Olecranon bursitis, right elbow Unintentional weight loss of more than 10 pounds Swelling of right elbow Heart murmur Contact with or suspected exposure to other viral communicable disease Acute bronchitis Insulin dependent diabetes mellitus CKD (chronic kidney disease), stage IV Osteopenia Wears hearing aid Wears glasses Wears dentures Alcohol use Insulin dependent diabetes mellitus Arthritis High cholesterol Back pain Dietary restriction Former smoker Shortness of breath on exertion History of pain when walking History of stress test History of echocardiogram Nicotine dependence, cigarettes, uncomplicated Episode of syncope Mass of lung REYES (dyspnea on exertion) Wears hearing aid in both ears Hearing loss, left Hearing loss, right Kidney stones Smoker Hypertension Chronic kidney insufficiency Diabetic retinopathy associated with type 1 diabetes mellitus Benign essential hypertension Stage 3 chronic kidney disease due to type 1 diabetes mellitus Diabetic polyneuropathy associated with type 1 diabetes mellitus Essential hypertension Mixed hyperlipidemia Vision problem Prostate disease Osteoarthritis Hearing problem COPD (chronic obstructive pulmonary disease) Cataracts, bilateral Bone fracture Back problem Anemia Bronchitis Family history of hyperlipidemia Family history of hypertension Headache Dyspnea on exertion Hyperlipidemia Nicotine abuse Atherosclerotic heart disease of 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 Sleep apnea Hypertension Home Medications ?Medication ?Instructions ?Recorded ?Last Taken ?Type aspirin 81 mg tablet,delayed 81 mg PO QDAY heart health 06/15/17 03/01/23 History release (Adult Low Dose Aspirin) finasteride 5 mg tablet (Proscar) 5 mg PO DAILY prostate 06/16/17 Unknown History flash glucose scanning reader #2 ea 03/28/22 Unknown Rx (FreeStyle Tani 2 [place]) flash glucose sensor (FreeStyle #2 ea 03/28/22 Unknown Rx Tani 2 Sensor kit) cholecalciferol (vitamin D3) 125 125 mcg PO DAILY vitamin 05/05/22 Unknown History mcg (5,000 unit) capsule acetaminophen 325 mg tablet 650 mg (2 x 325 mg) PO Q4H PRN PRN 12/12/22 Unknown Rx Fever, pain 1-01/20 #0 tabs insulin lispro 100 unit/mL See Protocol subcut ACHS diabetes 01/14/23 Unknown History subcutaneous pen (Humalog KwikPen (U-100) Insulin) calcium 600 mg (as 1 cap PO DAILY vitamin 01/23/23 Unknown History carbonate)-vitamin D3 10 mcg (400 unit) capsule clonidine HCl 0.1 mg tablet 0.1 mg PO BID blood pressure 01/29/24 Unknown History furosemide 40 mg tablet 40 mg PO DAILY weight gain 01/29/24 Unknown History magnesium 250 mg tablet 250 mg PO QDAY supplement 01/29/24 Unknown History pantoprazole 40 mg tablet,delayed 40 mg PO BID reflux 01/29/24 Unknown History release renal multivitamin 1 tab PO DAILY vitamin 01/29/24 Unknown History tamsulosin 0.4 mg capsule 0.4 mg PO QDAY prostate 01/29/24 Unknown History atorvastatin 40 mg tablet 40 mg PO QHS cholesterol 02/24/24 Unknown History ferrous sulfate 325 mg (65 mg 325 mg PO DAILY supplement #30 tabs 02/28/24 Unknown Rx iron) tablet (Iron (ferrous sulfate)) insulin glargine 100 unit/mL (3 20 unit (0.2 mL) subcut QPM DM #15 05/18/24 Unknown Rx mL) subcutaneous pen (Lantus mL Solostar U-100 Insulin) amlodipine 10 mg tablet 10 mg PO DAILY #30 tabs 06/02/24 Unknown Rx metoprolol tartrate 50 mg tablet 50 mg PO DAILY #30 tabs 06/02/24 Unknown Rx tramadol 50 mg tablet 50 mg PO TID PRN pain 10/10/24 Unknown History B1 2 mg-B6 4 mg-folate 800 mcg cap PO 12/28/24 Unknown History [id number]. gasseri-herb capsule docusate sodium 100 mg capsule 100 mg PO QDAY 12/28/24 Unknown History (Colace) duloxetine 30 mg capsule,delayed 30 mg PO QDAY 12/28/24 Unknown History release Allergy/AdvReac Type Severity Reaction Status Date / Time levofloxacin (From [employer]) Allergy Hives Verified 02/07/25 06:03 vancomycin AdvReac Severe Rash Verified 02/07/25 06:03 Family History Father Diabetes Hypertension Family history of hyperlipidemia Asthma Kidney disease Mother Diabetes Brother Cancer Throat cancer Brother CAD (coronary artery disease) Myocardial infarction, Onset Age: 52 Sister Family history of hyperlipidemia Hypertension Diabetes Unknown Alcoholism Arthritis Depression Diabetes Hypertension Hyperlipidemia Osteoporosis Respiratory disease Pancreatic cancer Other Family history of hypertension Surgical History History of hip surgery S/P arteriovenous (AV) fistula creation Fracture of left patella Wrist fracture, bilateral Fracture of left upper extremity History of colonoscopy (~2013) History of bilateral inguinal hernia repair (~2007) History of hernia repair (~1991) History of hemorrhoidectomy (~2000) stent replacement for right sided kidney stome Social History household members: spouse Smoking Status: Light Smoker (<10/day) Tobacco: How many years used: 50 alcohol intake: never substance use type: does not use caffeine: Yes Type: coffee Number of servings: 2 what type of physical activity do you participate in: none seatbelt use: sometimes do you feel safe at home: Yes ROS Constitutional Constitutional: Denies chills, fatigue, fever(s) or malaise Eyes Eyes: Denies blurry vision ENT HEENT: Denies headache(s) or nasal discharge Cardiovascular Cardiovascular: Denies chest pain, dyspnea on exertion or syncope Respiratory/Chest Respiratory/Chest: Reports shortness of breath at rest and shortness of breath with exertion; Denies cough Gastrointestinal Gastrointestinal: Denies constipation, diarrhea, nausea or vomiting Genitourinary Genitourinary: Denies dysuria Neurologic Neurologic: Denies focal weakness, numbness or tremor(s) Psychiatric Psychiatric: Denies anxiety or depression Vital Signs Vital Signs Vital Signs: 02/07/25 05:40 02/07/25 05:44 02/07/25 05:45 Temperature 97.6 F L 97.6 F L Temperature Source Oral Oral Pulse Rate 72 70 Respiratory Rate 22 H 19 H Respiratory Effort Short of Breath Respiratory Depth Respiratory Pattern Tachypnea Blood Pressure 121/68 H 121/68 H Blood Pressure Mean 85 85 Blood Pressure Source Blood Pressure Position Blood Pressure Location Pulse Ox 85 92 Oxygen Delivery Method Room Air Nasal Cannula Nasal Cannula Oxygen Flow Rate (L/min) 2 2 02/07/25 06:01 02/07/25 06:01 02/07/25 06:44 Temperature 97.6 F L Temperature Source Oral Pulse Rate 70 68 Respiratory Rate 16 17 Respiratory Effort Respiratory Depth Respiratory Pattern Normal Blood Pressure 129/62 H Blood Pressure Mean 84 Blood Pressure Source Blood Pressure Position Blood Pressure Location Pulse Ox 91 90 Oxygen Delivery Method Nasal Cannula Nasal Cannula Oxygen Flow Rate (L/min) 2 2 02/07/25 07:00 02/07/25 07:27 02/07/25 08:00 Temperature 97.9 F 97.9 F 97.3 F L Temperature Source Oral Oral Pulse Rate 68 67 66 Respiratory Rate 20 H 22 H 18 Respiratory Effort Respiratory Depth Respiratory Pattern Blood Pressure 130/73 H 133/64 H 133/67 H Blood Pressure Mean 92 87 89 Blood Pressure Source Blood Pressure Position Blood Pressure Location Pulse Ox 91 90 95 Oxygen Delivery Method Nasal Cannula Nasal Cannula Oxygen Flow Rate (L/min) 02/07/25 08:29 02/07/25 08:34 02/07/25 08:47 Temperature 97.8 F 98.4 F Temperature Source Oral Oral Pulse Rate 63 Respiratory Rate 20 H 17 Respiratory Effort Normal Non-Labored Short of Breath Respiratory Depth Deep Normal Respiratory Pattern Tachypnea Normal Blood Pressure 132/55 H 145/65 H Blood Pressure Mean 80 91 Blood Pressure Source Monitor Monitor Blood Pressure Position Semi-Fowlers Semi-Fowlers Blood Pressure Location Right Arm Right Arm Pulse Ox 95 95 93 Oxygen Delivery Method Nasal Cannula Nasal Cannula Nasal Cannula Oxygen Flow Rate (L/min) 2 2 02/07/25 09:17 02/07/25 09:47 Temperature Temperature Source Pulse Rate 67 68 Respiratory Rate 16 15 Respiratory Effort Respiratory Depth Respiratory Pattern Blood Pressure 140/65 H 168/71 H Blood Pressure Mean 90 103 Blood Pressure Source Monitor Monitor Blood Pressure Position Semi-Fowlers Semi-Fowlers Blood Pressure Location Right Arm Right Arm Pulse Ox Oxygen Delivery Method Nasal Cannula Nasal Cannula Oxygen Flow Rate (L/min) 2 2 Weight Weight: 117 lb 11.629 oz Body Mass Index (BMI) 18.4 Physical Exam Narrative General: Alert, Oriented x3, Cooperative, No apparent distress HEENT: Atraumatic, PERRLA, EOMI, Normocephalic Oral: Moist Mucosa Neck: Supple, No JVD Lungs: Diminished, Normal air movement, No rhonchi, No wheeze, No rales Cardiovascular: Regular rate, Regular Rhythm, Normal S1, Normal S2, No murmurs Abdomen: Soft, Non Tender, Non-Distended, No Hepato-splenomegaly Extremities: No edema, Capillary Refill Less than 3 Seconds Skin: No rashes, No breakdown Musculoskeletal: No Tenderness to Palpation of Joints or Extremities Neurological: No focal neurological deficits, moves all extremities Psych/Mental Status: Normal Affect, Appropriate Results Lab / Micro Data 02/07/25 05:44 02/07/25 05:44 Labs: Laboratory Results - last 24 hr 02/07/25 05:44: WBC 7.5, RBC 3.07 L, Hgb 9.8 L, Hct 28.8 L, MCV 93.8, MCH 31.9, MCHC 34.0, RDW Std Deviation 44.2 H, RDW Coeff of Russell 13.0, Plt Count 330, MPV 10.8, Immature Gran % (Auto) 0.400, Neut % (Auto) 74.3 H, Lymph % (Auto) 10.9 L, [place] % (Auto) 10.5 H, Eos % (Auto) 3.1, Baso % (Auto) 0.8, Absolute Neuts (auto) 5.6, Absolute Lymphs (auto) 0.82 L, Nucleated RBC % 0, Sodium 139, Potassium 3.8, Chloride 98, Carbon Dioxide 26.8, Anion Gap 14, BUN 55 H, Creatinine 4.03 H, Estim Creat Clear Calc 11.20 L, Est GFR (MDRD) Non-Af 14 L, BUN/Creatinine Ratio 13.6, Glucose 172 H, Calcium 8.2, Phosphorus 5.9 H, Magnesium 2.1 Micro: Microbiology 02/07/25 06:02 Mucosa - Nose SARS-CoV-2, Influenza & RSV (PCR) - Final Imaging Radiology Impression Chest X-Ray 02/07/25 06:25 IMPRESSION: There is cardiomegaly with prominent central vascular markings. There is interval increasing left pleural effusion which now extends to the apex. There is interstitial infiltrate in the right lung base which appears increased. Reading Location: [facility] Assessment & Plan Assessment/Plan (1) Hypoxia: (2) Pleural effusion, left: PLAN: Plan 1. Acute hypoxic respiratory insufficiency ? This is likely due to volume overload according to the dialysis nurse his outpatient dialysis center has been slowly increasing his dry weight but unclear as to the reason why ? So far he is breathing much better after having slightly over 3 L removed ? No signs of infection so no antibiotics at this time 2. 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 Continue with insulin ? Accu-Cheks ? Appreciate nephrology's assistance with dialysis 3. Essential HTN/HLD ? Blood pressures are stable, can resume his home medications ? Continue with cholesterol medications ? Will monitor make adjustments as necessary 4. BPH with obstruction ? Stable ? Continue with his home medications 5. Anxiety/depression ? Stable ? Continue with his home medications 6. GERD ? Stable ? Continue with his home PPI DVT: SCDs 75 minutes was spent on direct patient care, including documentation as well as chart review and collaboration with colleagues Charges/Coding Visit Charges Inpatient E&M: 26101 Init Hosp L3
--- NOTE | 2025-02-07 10:58 | PCM.CONS.R ---
Assessment & Plan Assessment/Plan (1) End stage renal disease on dialysis: PLAN: Plan This is a 79-year-old male with past medical history significant for ESRD on hemodialysis at [facility] Thursday schedule. We will continue to provide dialysis for Mr. Andre while he is in the hospital. Patient undergoing hemodialysis today attempting fluid removal as patient/blood pressure tolerates,, aim is ~2.5-3L. Likely patient will have a new lowered EDW by time of hospital discharge. Patient has history of anemia of chronic disease, hemoglobin is 9.8. Patient does not need NIKUNJ with dialysis today. Further orders forthcoming as hospitalization evolves, thank you for allowing us participate in the care of Mr. Andre. Assessment and plan reviewed with Dr. Townsend. HPI Consult Data Date of Consult: 02/07/25 HPI Narrative HPI Narrative: DEX ANDRE, is a 79 M who presents to the emergency room this morning with complaints of shortness of breath. Patient has history of end-stage renal disease on hemodialysis Thursday schedule. Upon presentation to the emergency room pulse ox on room air mid 80%. Workup in emergency room included chest x-ray showing left pleural effusion and possible infiltrate in right lung base. Nephrology consulted as patient has history of end-stage renal disease and for dialysis management. Patient is compliant with dialysis, he last dialyzed Thursday. He typically does not have large fluid gains between sessions. Of recent patient has been having cramping during dialysis and hypotensive episodes. Patient denies any chest pain or shortness of breath. [facility] Medical History Unexplained weight loss Type 1 diabetes mellitus with hyperglycemia COPD (chronic obstructive pulmonary disease) Insomnia Anorexia Fracture of femoral neck, right, open Carotid stenosis Anxiety and depression Carotid artery disease Lipohypertrophy due to insulin injection Dyslipidemia Carotid bruit Coronary artery disease Chronic neck pain Debility Cancer Open wound Polymyalgia arteritica Low iron Leg cramps History of edema Cardiology follow-up encounter Prostate cancer Dependent on hemodialysis NPDR (nonproliferative diabetic retinopathy) Nonrheumatic aortic (valve) stenosis History of non-ST elevation myocardial infarction (NSTEMI) End stage renal disease Leukocytosis Edema of left upper arm HFrEF (heart failure with reduced ejection fraction) Acquired neutrophilia Aortic valve stenosis 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 1 diabetes mellitus Chronic neck and back pain Skin mole Fatigue Watery eyes CKD (chronic kidney disease) stage 4, GFR 15-29 ml/min Aortic root dilatation Olecranon bursitis, left elbow Mediastinal mass Olecranon bursitis, right elbow Unintentional weight loss of more than 10 pounds Swelling of right elbow Heart murmur Contact with or suspected exposure to other viral communicable disease Acute bronchitis Insulin dependent diabetes mellitus CKD (chronic kidney disease), stage IV Osteopenia Wears hearing aid Wears glasses Wears dentures Alcohol use Insulin dependent diabetes mellitus Arthritis High cholesterol Back pain Dietary restriction Former smoker Shortness of breath on exertion History of pain when walking History of stress test History of echocardiogram Nicotine dependence, cigarettes, uncomplicated Episode of syncope Mass of lung REYES (dyspnea on exertion) Wears hearing aid in both ears Hearing loss, left Hearing loss, right Kidney stones Smoker Hypertension Chronic kidney insufficiency Diabetic retinopathy associated with type 1 diabetes mellitus Benign essential hypertension Stage 3 chronic kidney disease due to type 1 diabetes mellitus Diabetic polyneuropathy associated with type 1 diabetes mellitus Essential hypertension Mixed hyperlipidemia Vision problem Prostate disease Osteoarthritis Hearing problem COPD (chronic obstructive pulmonary disease) Cataracts, bilateral Bone fracture Back problem Anemia Bronchitis Family history of hyperlipidemia Family history of hypertension Headache Dyspnea on exertion Hyperlipidemia Nicotine abuse Atherosclerotic heart disease of [place] coronary artery without angina pectoris 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 Sleep apnea Hypertension Home Medications ?Medication ?Instructions ?Recorded ?Last Taken ?Type aspirin 81 mg tablet,delayed 81 mg PO QDAY [facility] 06/15/17 03/01/23 History release (Adult Low Dose Aspirin) finasteride 5 mg tablet (Proscar) 5 mg PO DAILY prostate 06/16/17 Unknown History flash glucose scanning reader #2 ea 03/28/22 Unknown Rx (FreeStyle Tani 2 [place]) flash glucose sensor (FreeStyle #2 ea 03/28/22 Unknown Rx Tani 2 Sensor kit) cholecalciferol (vitamin D3) 125 125 mcg PO DAILY vitamin 05/05/22 Unknown History mcg (5,000 unit) capsule acetaminophen 325 mg tablet 650 mg (2 x 325 mg) PO Q4H PRN PRN 12/12/22 Unknown Rx Fever, pain 1-01/20 #0 tabs insulin lispro 100 unit/mL See Protocol subcut ACHS diabetes 01/14/23 Unknown History subcutaneous pen (Humalog KwikPen (U-100) Insulin) calcium 600 mg (as 1 cap PO DAILY vitamin 01/23/23 Unknown History carbonate)-vitamin D3 10 mcg (400 unit) capsule clonidine HCl 0.1 mg tablet 0.1 mg PO BID blood pressure 01/29/24 Unknown History furosemide 40 mg tablet 40 mg PO DAILY weight gain 01/29/24 Unknown History magnesium 250 mg tablet 250 mg PO QDAY supplement 01/29/24 Unknown History pantoprazole 40 mg tablet,delayed 40 mg PO BID reflux 01/29/24 Unknown History release renal multivitamin 1 tab PO DAILY vitamin 01/29/24 Unknown History tamsulosin 0.4 mg capsule 0.4 mg PO QDAY prostate 01/29/24 Unknown History atorvastatin 40 mg tablet 40 mg PO QHS cholesterol 02/24/24 Unknown History ferrous sulfate 325 mg (65 mg 325 mg PO DAILY supplement #30 tabs 02/28/24 Unknown Rx iron) tablet (Iron (ferrous sulfate)) insulin glargine 100 unit/mL (3 20 unit (0.2 mL) subcut QPM DM #15 05/18/24 Unknown Rx mL) subcutaneous pen (Lantus mL Solostar U-100 Insulin) amlodipine 10 mg tablet 10 mg PO DAILY #30 tabs 06/02/24 Unknown Rx metoprolol tartrate 50 mg tablet 50 mg PO DAILY #30 tabs 06/02/24 Unknown Rx tramadol 50 mg tablet 50 mg PO TID PRN pain 10/10/24 Unknown History B1 2 mg-B6 4 mg-folate 800 mcg cap PO 12/28/24 Unknown History [id number]. gasseri-herb capsule docusate sodium 100 mg capsule 100 mg PO QDAY 12/28/24 Unknown History (Colace) duloxetine 30 mg capsule,delayed 30 mg PO QDAY 12/28/24 Unknown History release Allergy/AdvReac Type Severity Reaction Status Date / Time levofloxacin (From [employer]) Allergy Hives Verified 02/07/25 06:03 vancomycin AdvReac Severe Rash Verified 02/07/25 06:03 Family History Father Diabetes Hypertension Family history of hyperlipidemia Asthma Kidney disease Mother Diabetes Brother Cancer Throat cancer Brother CAD (coronary artery disease) Myocardial infarction, Onset Age: 52 Sister Family history of hyperlipidemia Hypertension Diabetes Unknown Alcoholism Arthritis Depression Diabetes Hypertension Hyperlipidemia Osteoporosis Respiratory disease Pancreatic cancer Other Family history of hypertension Surgical History History of hip surgery S/P arteriovenous (AV) fistula creation Fracture of left patella Wrist fracture, bilateral Fracture of left upper extremity History of colonoscopy (~2013) History of bilateral inguinal hernia repair (~2007) History of hernia repair (~1991) History of hemorrhoidectomy (~2000) stent replacement for right sided kidney stome Social History household members: spouse Smoking Status: Light Smoker (<10/day) Tobacco: How many years used: 50 alcohol intake: never substance use type: does not use caffeine: Yes Type: coffee Number of servings: 2 what type of physical activity do you participate in: none seatbelt use: sometimes do you feel safe at home: Yes ROS ROS Narrative As in HPI otherwise negative Physical Exam Narrative Alert and oriented x 3, no apparent distress S1 S2 RRR Diminished breath sounds with faint rales. On O2 nasal cannula Abdomen soft, nontender Trace pedal edema AV fistula left arm accessed for hemodialysis Lab / Micro Data 02/07/25 05:44 02/07/25 05:44 Labs: Laboratory Results - last 24 hr 02/07/25 05:44: WBC 7.5, RBC 3.07 L, Hgb 9.8 L, Hct 28.8 L, MCV 93.8, MCH 31.9, MCHC 34.0, RDW Std Deviation 44.2 H, RDW Coeff of [place] 13.0, Plt Count 330, MPV 10.8, Immature Gran % (Auto) 0.400, Neut % (Auto) 74.3 H, Lymph % (Auto) 10.9 L, [place] % (Auto) 10.5 H, Eos % (Auto) 3.1, Baso % (Auto) 0.8, Absolute Neuts (auto) 5.6, Absolute Lymphs (auto) 0.82 L, Nucleated RBC % 0, Sodium 139, Potassium 3.8, Chloride 98, Carbon Dioxide 26.8, Anion Gap 14, BUN 55 H, Creatinine 4.03 H, Estim Creat Clear Calc 11.20 L, Est GFR (MDRD) Non-Af 14 L, BUN/Creatinine Ratio 13.6, Glucose 172 H, Calcium 8.2, Phosphorus 5.9 H, Magnesium 2.1 Micro: Microbiology 10/28/25 06:02 Mucosa - Nose SARS-CoV-2, Influenza & RSV (PCR) - Final Imaging Radiology Impression Chest X-Ray 02/07/25 06:25 IMPRESSION: There is cardiomegaly with prominent central vascular markings. There is interval increasing left pleural effusion which now extends to the apex. There is interstitial infiltrate in the right lung base which appears increased. Reading Location: [facility]
[2025-02-07] MEDS: Aspirin E.C. 81 MG Tablet PO (12:47)
--- NOTE | 2025-02-07 13:40 | CASEMGMT ---
RN CM Face to Face with patient for initial transition planning/care coordination assessment. RN CM introduced self and role at [facility]. Patient lying in bed, sleeping, at bedside. willing to participate in assessment and is able to answer all questions appropriately. Care providers, pharmacy, and demographics verified. Strata: 2 PCP: Shlomo Specialists: MAY, underwriting analyst: Ayan, welt treater; Viral Vásquez, director institution; Tri, urologist; Kristian, cut roll machine operator; Prince, asw/asuw tactical air controller Preferred Pharmacy: [facility] Insurance: [facility] supplement Prescription Benefit: [place] Living Will/HPOA: yes, Ghazala Andre LNOK: Living Arrangements: Patient lives with in a single story home with 4-5 steps to enter. Per , patient is independent at home. Transportation: self, DME/HHC: Patient has raised toilet, cane, grab bars, glucometer at home. Patient has been to [facility] in the past. Patient has had [facility]HC in the past. Patient attends HD at [facility] wishes for patient to discharge home, denies need for home health at this time. states she has no further needs or concerns at this time. CM to follow for discharge planning needs that may arise. Disposition Plan: Patient to discharge home with family support and follow-up plans in place. Courtney JUNG, RN, CM
[2025-02-07] MEDS: Insulin Glargine-YFGN 100 UNIT/ML Pen 10 UNIT SC (17:20)
--- NOTE | 2025-02-07 17:51 | NURSING ---
BG per pt meter [phone] Ptmeter read HIGH at aprox same time as [facility] BD check dinnertime BG per [facility] meter 459. per Dr Herndon give SS + evening long acting insulin
--- NOTE | 2025-02-07 20:58 | PCM.HOSP.N ---
Hospitalist Note Patient with elevated BS, will given short-acting 10 u x 1 now.
[2025-02-08] VITALS (9 sets, daily range): BP systolic 127–154; BP diastolic 61–67; PULSE 58–72; RESP 16–18; TEMP 36.4–37; O2SAT 84–97
[2025-02-08 05:52] LABS: Hematocrit 27.6 % (40-54); Hemoglobin 9.4 g/dL (13.0-16.5); Immature Granulocytes Count 0.020 X10^3/uL (0.0-0.0); Mean Corp Hgb Conc 34.1 g/dL (32-36); Mean Corpuscular Volume 94.8 fL (80-94); Mean Platelet Vol. 10.7 fl (6.2-12.0); NRBC Flagged by Analyzer 0 % (0-5); Platelet Count 298 K/mm3 (150-450); RBC Distribution Width CV 13.1 % (11.6-14.6); RBC Distribution Width SD 45.1 fl (35.1-43.9); Red Blood Count 2.91 M/mm3 (4.6-6.2); White Blood Count 6.7 K/mm3 (4.4-11.0)
[2025-02-08 06:16] LABS: Anion Gap 11 (5-15); BUN 46 mg/dL (4-19); BUN/Creat Ratio 15.0 RATIO (10-20); Calcium,Total 8.0 mg/dL (7.6-11.0); Carbon Dioxide 25.3 mmol/L (21.0-32.0); Chloride 100 mmol/L (98-108); Estimated Creatinine Clearance 13.39 ml/min (50-250); Glucose 282 mg/dL (70-99); Potassium 4.6 mmol/L (3.3-5.1)
[2025-02-08] MEDS: Aspirin E.C. 81 MG Tablet PO (09:30)
--- NOTE | 2025-02-08 11:27 | PCM.PN.REN ---
Documented by User: SHAMAR Park 02/08/25 11:30 Subjective Subjective Resting in bed. States breathing is much better. No complaints. at bedside. Objective Data Objective Data Vital Signs: Vital Signs Temp Pulse Resp BP Pulse Ox O2 Del Method O2 Flow Rate 98.6 F 66 17 144/61 H 94 Nasal Cannula 2 02/08/25 08:50 02/08/25 09:31 02/08/25 08:50 02/08/25 08:50 02/08/25 09:40 02/08/25 09:40 02/08/25 09:40 Oxygen Flow Rate (L/min) 2 Oxygen Delivery Method Nasal Cannula Weight: 50 kg Body Mass Index (BMI) 17.3 Intake & Output: Intake and Output for Last 24 Hours 02/06/25 02/07/25 02/08/25 23:59 23:59 23:59 Intake Total 400 / 400 Output Total 3400 / 3400 Balance -3000 / -3000 Lab / Micro Data 02/08/25 05:08 02/08/25 05:08 Labs: Laboratory Results - last 24 hr 02/07/25 16:45: POC Glucose 459 H* 02/07/25 18:30: POC Glucose 442 H 02/07/25 20:43: POC Glucose 307 H 02/07/25 22:58: POC Glucose 54 L 02/07/25 23:14: POC Glucose 51 L 02/07/25 23:34: POC Glucose 89 02/08/25 02:20: POC Glucose 47 L 02/08/25 02:42: POC Glucose 94 02/08/25 05:08: WBC 6.7, RBC 2.91 L, Hgb 9.4 L, Hct 27.6 L, MCV 94.8 H, MCH 32.3 H, MCHC 34.1, RDW Std Deviation 45.1 H, RDW Coeff of Russell 13.1, Plt Count 298, MPV 10.7, Immature Gran % (Auto) 0.300, Neut % (Auto) 74.2 H, Lymph % (Auto) 12.5 L, [place] % (Auto) 9.6, Eos % (Auto) 2.8, Baso % (Auto) 0.6, Absolute Neuts (auto) 5.0, Absolute Lymphs (auto) 0.84, Nucleated RBC % 0, Sodium 136, Potassium 4.6, Chloride 100, Carbon Dioxide 25.3, Anion Gap 11, BUN 46 H, Creatinine 3.06 H, Estim Creat Clear Calc 13.39 L, Est GFR (MDRD) Non-Af 20 L, BUN/Creatinine Ratio 15.0, Glucose 282 H, Calcium 8.0 02/08/25 05:15: POC Glucose 279 H Micro: Microbiology 02/07/25 06:02 Mucosa - Nose SARS-CoV-2, Influenza & RSV (PCR) - Final Physical Exam Narrative Alert and oriented x 3, no apparent distress S1 S2 RRR Diminished breath sounds. On O2 nasal cannula Abdomen soft, nontender No edema AV fistula left arm Assessment & Plan Assessment/Plan (1) End stage renal disease on dialysis: PLAN: Plan This is a 79-year-old male with past medical history significant for ESRD on hemodialysis at [facility] Thursday schedule. Patient tolerated dialysis yesterday with 3.4 L fluid removed. No need for SAND BOBBER today. Next dialysis will be tomorrow. Oxygenation improved, now on 2 L nasal cannula from 4 L. Blood pressures improved with fluid removal. Continue on clonidine, amlodipine, metoprolol. Documented by User: Dr. Maria Guadalupe Townsend MD 02/08/25 19:19 Objective Data Lab / Micro Data 02/08/25 05:08 02/08/25 05:08 Assessment & Plan Assessment/Plan (1) End stage renal disease on dialysis: PLAN: Plan This is a 79-year-old male with past medical history significant for ESRD on hemodialysis at [facility] Thursday schedule. Patient tolerated dialysis yesterday with 3.4 L fluid removed. No need for SAND BOBBER today. Next dialysis will be tomorrow. Oxygenation improved, now on 2 L nasal cannula from 4 L. Blood pressures improved with fluid removal. Continue on clonidine, amlodipine, metoprolol. Addendum agree with above
--- NOTE | 2025-02-08 14:46 | PCM.PN.HOSP ---
Subjective Subjective Still needs oxygen at rest and with ambulation, would like to see what 1 more round of dialysis will do as he does not want to go home with oxygen if he can avoid Objective Data Objective Data Vital Signs: Vital Signs Temp Pulse Resp BP Pulse Ox O2 Del Method O2 Flow Rate 97.5 F L 58 L 18 127/65 H 92 Nasal Cannula 2 02/08/25 14:45 02/08/25 14:45 02/08/25 14:45 02/08/25 14:45 02/08/25 14:45 02/08/25 09:40 02/08/25 14:45 Oxygen Flow Rate (L/min) 2 Oxygen Delivery Method Nasal Cannula Weight: 110 lb 3.698 oz Body Mass Index (BMI) 17.3 Intake & Output: Intake and Output for Last 24 Hours 02/07/25 02/08/25 02/09/25 03:59 03:59 03:59 Intake Total 400 / 400 Output Total 3400 / 3400 Balance -3000 / -3000 Lab / Micro Data 02/08/25 05:08 02/08/25 05:08 Labs: Laboratory Results - last 24 hr 02/07/25 16:45: POC Glucose 459 H* 02/07/25 18:30: POC Glucose 442 H 02/07/25 20:43: POC Glucose 307 H 02/07/25 22:58: POC Glucose 54 L 02/07/25 23:14: POC Glucose 51 L 02/07/25 23:34: POC Glucose 89 02/08/25 02:20: POC Glucose 47 L 02/08/25 02:42: POC Glucose 94 02/08/25 05:08: WBC 6.7, RBC 2.91 L, Hgb 9.4 L, Hct 27.6 L, MCV 94.8 H, MCH 32.3 H, MCHC 34.1, RDW Std Deviation 45.1 H, RDW Coeff of Russell 13.1, Plt Count 298, MPV 10.7, Immature Gran % (Auto) 0.300, Neut % (Auto) 74.2 H, Lymph % (Auto) 12.5 L, Kay % (Auto) 9.6, Eos % (Auto) 2.8, Baso % (Auto) 0.6, Absolute Neuts (auto) 5.0, Absolute Lymphs (auto) 0.84, Nucleated RBC % 0, Sodium 136, Potassium 4.6, Chloride 100, Carbon Dioxide 25.3, Anion Gap 11, BUN 46 H, Creatinine 3.06 H, Estim Creat Clear Calc 13.39 L, Est GFR (MDRD) Non-Af 20 L, BUN/Creatinine Ratio 15.0, Glucose 282 H, Calcium 8.0 02/08/25 05:15: POC Glucose 279 H 02/08/25 11:11: POC Glucose 312 H Micro: Microbiology 02/07/25 06:02 Mucosa - Nose SARS-CoV-2, Influenza & RSV (PCR) - Final Physical Exam Narrative General: Alert, Oriented x3, Cooperative, No apparent distress HEENT: Atraumatic, PERRLA, EOMI, Normocephalic Oral: Moist Mucosa Neck: Supple, No JVD Lungs: Diminished, Normal air movement, No rhonchi, No wheeze, No rales Cardiovascular: Regular rate, Regular Rhythm, Normal S1, Normal S2, No murmurs Abdomen: Soft, Non Tender, Non-Distended, No Hepato-splenomegaly Extremities: No edema, Capillary Refill Less than 3 Seconds Skin: No rashes, No breakdown Musculoskeletal: No Tenderness to Palpation of Joints or Extremities Neurological: No focal neurological deficits, moves all extremities Psych/Mental Status: Normal Affect, Appropriate Assessment & Plan Assessment/Plan (1) Hypoxia: (2) Pleural effusion, left: PLAN: Plan 1. Acute hypoxic respiratory insufficiency ? This is likely due to volume overload according to the dialysis nurse his outpatient dialysis center has been slowly increasing his dry weight but unclear as to the reason why ? So far he is breathing much better after having slightly over 3 L removed yesterday ? He needed 2 L at rest and 2 L with ambulation today will repeat dialysis tomorrow ? No signs of infection so no antibiotics at this time 2. 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 Continue with insulin ? Accu-Cheks ? Appreciate nephrology's assistance with dialysis 3. Essential HTN/HLD ? Blood pressures are stable, can resume his home medications ? Continue with cholesterol medications ? Will monitor make adjustments as necessary 4. BPH with obstruction ? Stable ? Continue with his home medications 5. Anxiety/depression ? Stable ? Continue with his home medications 6. GERD ? Stable ? Continue with his home PPI DVT: SCDs Charges/Coding Visit Charges Inpatient E&M: 71500 Subs Hosp L2
--- NOTE | 2025-02-08 15:29 | CASEMGMT ---
NADEEM VINCENT called and updated [facility] that patient will not be discharging today and will receive HD at [facility]. Marylu voiced appreciation.
--- NOTE | 2025-02-08 22:18 | PCM.HOSP.N ---
Hospitalist Note Patient notes he does not take 20 u longacting insulin but usually only 10-12. His BS dropped this AM following the elevated dosing the evening prior. Will decrease to 10 u to be cautious. May also need to adjust short acting if recurring issues with low BS.
[2025-02-08] MEDS: Insulin Glargine-YFGN 100 UNIT/ML Pen 10 UNIT SC (23:25)
[2025-02-09] VITALS (13 sets, daily range): BP systolic 137–153; BP diastolic 44–59; PULSE 52–63; RESP 14–18; TEMP 36.1–36.8; O2SAT 92–100; BMI 17.3; BMI 16.2
[2025-02-09] MEDS: 0.9% Normal Saline 1,000 ML IV.SOLN. 1000 ML OPERA.SITE (08:30)
[2025-02-09] MEDS: PureFlow B 2K Dialysis Soln 1 BAG 6 BAG PF (08:30)
[2025-02-09] MEDS: Aspirin E.C. 81 MG Tablet PO (08:59)
--- NOTE | 2025-02-09 14:00 | DCINST_ITS ---
Discharge Instructions
--- NOTE | 2025-02-09 14:00 | PCM.DC ---
Discharge Instructions DC O2, CPAP, BIPAP needs Home O2 Discharge instructions: No Dressing / Incision Discharge Activity: Return to Normal Activity Dressing / Incision Call your doctor if you observe: Fever of 101 or Higher, Shortness of breath, Dizziness, Fainting spells, Swelling in the ankles, Chest pain and Increased palpitations (irregular heartbeat) Follow Up Care Test Results: Test results from this visit will be discussed in further detail at your follow-up appointment, if applicable. Discharge Plan Admission Admit Date/Time: 02/07/25 07:16 Attending Provider: Andreas Herndon Primary Care Provider: Cesar Keenan Consulting Providers: Maria Guadalupe Townsend Discharge Orders/Prescriptions Prescriptions: Continued aspirin [Adult Low Dose Aspirin] 81 mg tablet,delayed release (DR/EC) 81 mg PO QDAY finasteride [Proscar] 5 mg tablet 5 mg PO DAILY (DME) FreeStyle Tani 2 Sensor Kit See Rx Instructions .Route Qty: 2 3RF Rx Instructions: As directed (DME) FreeStyle Tani 2 [place] Misc See Rx Instructions .Route Qty: 2 3RF Rx Instructions: As directed cholecalciferol (vitamin D3) 125 mcg (5,000 unit) capsule 125 mcg PO DAILY insulin lispro [Humalog KwikPen Insulin] 100 unit/mL insulin pen See Protocol subcut [facility] [address] Protocol: 4. Sliding Scale Insulin High-Med Dosing Condition: 150-199 mg/dl = 2 units Condition: 200-259 mg/dl = 4 units Condition: 260-324 mg/dl = 6 units Condition: 325-374 mg/dl = 8 units Condition: 375-409 mg/dl = 10 units Condition: 410-449 mg/dl = 11 units Condition: Greater than 449 call physician Protocol Text: - Use for Total Daily Dose of Insulin 56-80 units - Patient who are insulin resistant or septic HIGH MEDIUM DOSING ALGORITHM calcium carbonate-vitamin D3 600 mg-10 mcg (400 unit) capsule 1 cap PO DAILY furosemide 40 mg tablet 40 mg PO DAILY tamsulosin 0.4 mg capsule 0.4 mg PO QDAY pantoprazole 40 mg tablet,delayed release (DR/EC) 40 mg PO BID renal multivitamin 1 tab PO DAILY clonidine HCl 0.1 mg tablet 0.1 mg PO BID magnesium 250 mg tablet 250 mg PO QDAY docusate sodium [Colace] 100 mg capsule 100 mg PO QDAY duloxetine 30 mg capsule,delayed release(DR/EC) 30 mg PO QDAY tramadol 50 mg tablet 50 mg PO TID PRN (Reason: pain) [id number] 2 mg-4 mg-800 mcg DFE-2.4 mcg capsule PO acetaminophen 325 mg Tablet 650 mg PO Q4H PRN PRN (Reason: Fever, pain 1-01/20) Qty: 0 0RF insulin glargine [Lantus Solostar U-100 Insulin] 100 unit/mL (3 mL) insulin pen 10 unit SC QPM Patient Comments: Pt. states he takes 10-12u atorvastatin 40 mg tablet 40 mg PO QHS ferrous sulfate [Iron (ferrous sulfate)] 325 mg (65 mg iron) tablet 325 mg PO DAILY Qty: 30 0RF amlodipine 10 mg tablet 10 mg PO DAILY Qty: 30 2RF metoprolol tartrate 50 mg tablet 50 mg PO DAILY Qty: 30 2RF Referrals / Follow Up: Cesar Keenan MD [Primary Care Provider, Internal Medicine] - Within 1 Week Disposition Disposition (needs filled in before D/C Order can be placed): Home, Self Care
--- NOTE | 2025-02-09 14:04 | PCM.PN.REN ---
Subjective Subjective Patient resting in bed. On room air. at bedside. Tolerated dialysis without any cramping today. Objective Data Objective Data Vital Signs: Vital Signs Temp Pulse Resp BP Pulse Ox O2 Del Method O2 Flow Rate 97.1 F L 63 15 152/57 H 96 Room Air 2 02/09/25 08:50 02/09/25 12:33 02/09/25 12:01 02/09/25 12:01 02/09/25 12:01 02/09/25 12:01 02/09/25 10:56 Oxygen Flow Rate (L/min) 2 Oxygen Delivery Method Room Air Weight: 47 kg Body Mass Index (BMI) 16.2 Intake & Output: Intake and Output for Last 24 Hours 02/07/25 02/08/25 02/09/25 23:59 23:59 23:59 Intake Total 400 / 400 900 / 1300 800 / 800 Output Total 3400 / 3400 3000 / 3000 Balance -3000 / -3000 900 / 1300 -2200 / -2200 Lab / Micro Data 02/08/25 05:08 02/08/25 05:08 Labs: Laboratory Results - last 24 hr 02/08/25 16:02: POC Glucose 81 02/08/25 16:37: POC Glucose 100 02/08/25 21:27: POC Glucose 313 H 02/08/25 23:20: POC Glucose 377 H 02/09/25 00:19: POC Glucose 321 H 02/09/25 01:25: POC Glucose 215 H 02/09/25 02:52: POC Glucose 145 H 02/09/25 04:41: POC Glucose 89 02/09/25 05:05: POC Glucose 80 02/09/25 08:37: POC Glucose 61 L 02/09/25 09:01: POC Glucose 80 02/09/25 11:18: POC Glucose 198 H Micro: Microbiology 02/07/25 06:02 Mucosa - Nose SARS-CoV-2, Influenza & RSV (PCR) - Final Physical Exam Narrative Alert and oriented x 3, no apparent distress S1 S2 RRR Lungs sound clear anteriorly, no wheezes, rhonchi or rales noted. On room air Abdomen soft, nontender No edema AV fistula left arm Assessment & Plan Assessment/Plan (1) End stage renal disease on dialysis: PLAN: Plan This is a 79-year-old male with past medical history significant for ESRD on hemodialysis at [facility] [place] Thursday schedule. Patient tolerated hemodialysis today with around 3 L fluid removal, oxygenation has improved. New EDW around 47 kg. Outpatient hemodialysis clinic aware of new lowered dry weight. Blood pressures improved with fluid removal. Continue on clonidine, amlodipine, metoprolol, and lasix. Assessment and plan reviewed with Dr. Townsend.
--- NOTE | 2025-02-09 14:16 | PHA.DC_ITS ---
Pharmacy DC Med Reconciliation
--- NOTE | 2025-02-09 14:16 | PHA.DC.MR.R ---
Pharmacy PR Med Reconciliation Pharmacy Service has performed discharge medication reconciliation for this patient. The patient's discharge medication list was reviewed for discrepancies and discrepancies were resolved. Medications at Discharge Home Medications aspirin 81 mg tablet,delayed release (Adult Low Dose Aspirin) 81 mg PO QDAY heart health 06/15/17 finasteride 5 mg tablet (Proscar) 5 mg PO DAILY prostate 06/16/17 flash glucose scanning reader (FreeStyle Tani 2 [place]) #2 ea 03/28/22 flash glucose sensor (FreeStyle Tani 2 Sensor kit) #2 ea 03/28/22 cholecalciferol (vitamin D3) 125 mcg (5,000 unit) capsule 125 mcg PO DAILY vitamin 05/05/22 acetaminophen 325 mg tablet 650 mg (2 x 325 mg) PO Q4H PRN PRN Fever, pain 1-01/20 #0 tabs 12/12/22 insulin lispro 100 unit/mL subcutaneous pen (Humalog KwikPen (U-100) Insulin) See Protocol subcut ACHS diabetes 01/14/23 calcium 600 mg (as carbonate)-vitamin D3 10 mcg (400 unit) capsule 1 cap PO DAILY vitamin 01/23/23 clonidine HCl 0.1 mg tablet 0.1 mg PO BID blood pressure 01/29/24 furosemide 40 mg tablet 40 mg PO DAILY weight gain 01/29/24 magnesium 250 mg tablet 250 mg PO QDAY supplement 01/29/24 pantoprazole 40 mg tablet,delayed release 40 mg PO BID reflux 01/29/24 renal multivitamin 1 tab PO DAILY vitamin 01/29/24 tamsulosin 0.4 mg capsule 0.4 mg PO QDAY prostate 01/29/24 atorvastatin 40 mg tablet 40 mg PO QHS cholesterol 02/24/24 ferrous sulfate 325 mg (65 mg iron) tablet (Iron (ferrous sulfate)) 325 mg PO DAILY supplement #30 tabs 02/28/24 amlodipine 10 mg tablet 10 mg PO DAILY blood pressure #30 tabs 06/02/24 metoprolol tartrate 50 mg tablet 50 mg PO DAILY blood pressure #30 tabs 06/02/24 tramadol 50 mg tablet 50 mg PO TID PRN pain 10/10/24 B1 2 mg-B6 4 mg-folate 800 mcg [id number]-[id number]. gasseri-herb capsule cap PO 12/28/24 docusate sodium 100 mg capsule (Colace) 100 mg PO QDAY stool softner 12/28/24 duloxetine 30 mg capsule,delayed release 30 mg PO QDAY mental health 12/28/24 insulin glargine 100 unit/mL (3 mL) subcutaneous pen (Lantus Solostar U-100 Insulin) 10 unit subcut QPM DM 02/08/25
--- NOTE | 2025-02-09 15:29 | CASEMGMT ---
Patient has order for discharge. Patient does not qualify for home oxygen. RN CM in to discuss needs at discharge. Patient denies needs or help at discharge. Patient had no further questions or concerns.
--- NOTE | 2025-02-09 16:04 | PCM.DC.SUM ---
Providers Date of Admission: 02/07/25 Primary Care Physician: Dr. Cesar Keenan MD Consultations 02/07/25 08:00 Consult: Nephrology Routine Consulting Provider: Maria Guadalupe Townsend Reason for Consult: Dialysis EMERGENT Consult: No MD Notified: Yes Date Notified: 02/07/25 Time Notified: 08:56 Method of Notification: Answering Service Reason For Visit: SOB Diagnosis Discharge Diagnosis (1) End stage renal disease on dialysis: Status: Acute Code(s): N18.6 - End stage renal disease; Z99.2 - Dependence on renal dialysis Medications at Discharge Home Medications aspirin 81 mg tablet,delayed release (Adult Low Dose Aspirin) 81 mg PO QDAY heart health 06/15/17 finasteride 5 mg tablet (Proscar) 5 mg PO DAILY prostate 06/16/17 flash glucose scanning reader (TradaStyle Tani 2 [place]) #2 ea 03/28/22 flash glucose sensor (FreeStyle Tani 2 Sensor kit) #2 ea 03/28/22 cholecalciferol (vitamin D3) 125 mcg (5,000 unit) capsule 125 mcg PO DAILY vitamin 05/05/22 acetaminophen 325 mg tablet 650 mg (2 x 325 mg) PO Q4H PRN PRN Fever, pain 1-01/20 #0 tabs 12/12/22 insulin lispro 100 unit/mL subcutaneous pen (Humalog KwikPen (U-100) Insulin) See Protocol subcut ACHS diabetes 01/14/23 calcium 600 mg (as carbonate)-vitamin D3 10 mcg (400 unit) capsule 1 cap PO DAILY vitamin 01/23/23 clonidine HCl 0.1 mg tablet 0.1 mg PO BID blood pressure 01/29/24 furosemide 40 mg tablet 40 mg PO DAILY weight gain 01/29/24 magnesium 250 mg tablet 250 mg PO QDAY supplement 01/29/24 pantoprazole 40 mg tablet,delayed release 40 mg PO BID reflux 01/29/24 renal multivitamin 1 tab PO DAILY vitamin 01/29/24 tamsulosin 0.4 mg capsule 0.4 mg PO QDAY prostate 01/29/24 atorvastatin 40 mg tablet 40 mg PO QHS cholesterol 02/24/24 ferrous sulfate 325 mg (65 mg iron) tablet (Iron (ferrous sulfate)) 325 mg PO DAILY supplement #30 tabs 02/28/24 amlodipine 10 mg tablet 10 mg PO DAILY blood pressure #30 tabs 06/02/24 metoprolol tartrate 50 mg tablet 50 mg PO DAILY blood pressure #30 tabs 06/02/24 tramadol 50 mg tablet 50 mg PO TID PRN pain 10/10/24 B1 2 mg-B6 4 mg-folate 800 mcg [id number]-L. gasseri-herb capsule cap PO 12/28/24 docusate sodium 100 mg capsule (Colace) 100 mg PO QDAY stool softner 12/28/24 duloxetine 30 mg capsule,delayed release 30 mg PO QDAY mental health 12/28/24 insulin glargine 100 unit/mL (3 mL) subcutaneous pen (Lantus Solostar U-100 Insulin) 10 unit subcut QPM DM 02/08/25 Hospital Course Operations None Procedures Dialysis Summary of Care Provided Minutes Spent on Discharge: 37 Hospital Course: Per HPI: DEX VALLE, is a 79 M who presents to the hospital with shortness of breath. Chest x-ray demonstrated a possible infiltrate in the right lower lobe with increasing left-sided edema. He was on 2 L nasal cannula for hypoxia in the emergency room where he normally does not wear any oxygen at all. He denies any chest pain or lightheadedness. No recent fevers or chills, no leukocytosis in the ER, no upper respiratory infection and he tested positive for COVID, flu, RSV. Today is a dialysis day so given his hypoxia and the need for dialysis did recommend admission. Hospital Course: 1. Acute hypoxic respiratory sufficiency secondary to volume overload?79-year-old male presented to the hospital with increasing pleural effusions and volume overload secondary to his dry weight being increased as an outpatient. This was done because his felt that he was eating more and he was gaining weight however it appeared that it was mostly fluid. Since admission he has been dialyzed twice for a total volume of 6-1/2 L removed and today he had an ambulatory pulse ox that did not demonstrate a need for oxygen either at rest or with ambulation. He is feeling much better and would like to go home. I discussed with him the plan for discharge and he expressed understanding of the risks and benefits of going home and would like to go home today. Need to follow-up with his PCP in 3 to 5 days and will have his next round of dialysis on Thursday. 2. Insulin-dependent diabetes with end-stage renal disease on dialysis, essential hypertension, hyperlipidemia, BPH with obstruction, anxiety, depression, GERD are all chronic medical conditions which complicate his care. His home medications were continued where appropriate Physical Exam Narrative General: Alert, Oriented x3, Cooperative, No apparent distress HEENT: Atraumatic, PERRLA, EOMI, Normocephalic Oral: Moist Mucosa Neck: Supple, No JVD Lungs: Diminished, Normal air movement, No rhonchi, No wheeze, No rales Cardiovascular: Regular rate, Regular Rhythm, Normal S1, Normal S2, No murmurs Abdomen: Soft, Non Tender, Non-Distended, No Hepato-splenomegaly Extremities: No edema, Capillary Refill Less than 3 Seconds Skin: No rashes, No breakdown Musculoskeletal: No Tenderness to Palpation of Joints or Extremities Neurological: No focal neurological deficits, moves all extremities Psych/Mental Status: Normal Affect, Appropriate Weight / BMI Weight Weight: 103 lb 9.876 oz Body Mass Index (BMI) 16.2 ABG / Lab / Microbiology Data 02/08/25 05:08 02/08/25 05:08 Laboratory: Laboratory Results - last 24 hr 02/08/25 16:02: POC Glucose 81 02/08/25 16:37: POC Glucose 100 02/08/25 21:27: POC Glucose 313 H 02/08/25 23:20: POC Glucose 377 H 02/09/25 00:19: POC Glucose 321 H 02/09/25 01:25: POC Glucose 215 H 02/09/25 02:52: POC Glucose 145 H 02/09/25 04:41: POC Glucose 89 02/09/25 05:05: POC Glucose 80 02/09/25 08:37: POC Glucose 61 L 02/09/25 09:01: POC Glucose 80 02/09/25 11:18: POC Glucose 198 H 02/09/25 14:58: POC Glucose 54 L 02/09/25 15:18: POC Glucose 90 Microbiology: Microbiology 02/07/25 06:02 Mucosa - Nose SARS-CoV-2, Influenza & RSV (PCR) - Final D/C Instructions Call your doctor if you observe: Fever of 101 or Higher, Shortness of breath, Dizziness, Fainting spells, Swelling in the ankles, Chest pain and Increased palpitations (irregular heartbeat) DC O2, CPAP, BIPAP Needs Home O2 Discharge instructions: No Meaningful Use Info Meaningful Use Meaningful Use Diagnoses (Choose all that apply): None applicable Discharge Plan Admission Admit Date/Time: 02/07/25 07:16 Attending Provider: Andreas Herndon Primary Care Provider: Cesar Keenan Consulting Providers: Maria Guadalupe Townsend Discharge Orders/Prescriptions Prescriptions: Continued aspirin [Adult Low Dose Aspirin] 81 mg tablet,delayed release (DR/EC) 81 mg PO QDAY finasteride [Proscar] 5 mg tablet 5 mg PO DAILY (DME) FreeStyle Tani 2 Sensor Kit See Rx Instructions .Route Qty: 2 3RF Rx Instructions: As directed (DME) FreeStyle Tani 2 [place] Misc See Rx Instructions .Route Qty: 2 3RF Rx Instructions: As directed cholecalciferol (vitamin D3) 125 mcg (5,000 unit) capsule 125 mcg PO DAILY insulin lispro [Humalog KwikPen Insulin] 100 unit/mL insulin pen See Protocol subcut [facility] Protocol: 4. Sliding Scale Insulin High-Med Dosing Condition: 150-199 mg/dl = 2 units Condition: 200-259 mg/dl = 4 units Condition: 260-324 mg/dl = 6 units Condition: 325-374 mg/dl = 8 units Condition: 375-409 mg/dl = 10 units Condition: 410-449 mg/dl = 11 units Condition: Greater than 449 call physician Protocol Text: - Use for Total Daily Dose of Insulin 56-80 units - Patient who are insulin resistant or septic HIGH MEDIUM DOSING ALGORITHM calcium carbonate-vitamin D3 600 mg-10 mcg (400 unit) capsule 1 cap PO DAILY furosemide 40 mg tablet 40 mg PO DAILY tamsulosin 0.4 mg capsule 0.4 mg PO QDAY pantoprazole 40 mg tablet,delayed release (DR/EC) 40 mg PO BID renal multivitamin 1 tab PO DAILY clonidine HCl 0.1 mg tablet 0.1 mg PO BID magnesium 250 mg tablet 250 mg PO QDAY docusate sodium [Colace] 100 mg capsule 100 mg PO QDAY duloxetine 30 mg capsule,delayed release(DR/EC) 30 mg PO QDAY tramadol 50 mg tablet 50 mg PO TID PRN (Reason: pain) [id number] 2 mg-4 mg-800 mcg DFE-2.4 mcg capsule PO acetaminophen 325 mg Tablet 650 mg PO Q4H PRN PRN (Reason: Fever, pain -01/20) Qty: 0 0RF insulin glargine [Lantus Solostar U-100 Insulin] 100 unit/mL (3 mL) insulin pen 10 unit SC QPM Patient Comments: Pt. states he takes 10-12u atorvastatin 40 mg tablet 40 mg PO QHS ferrous sulfate [Iron (ferrous sulfate)] 325 mg (65 mg iron) tablet 325 mg PO DAILY Qty: 30 0RF amlodipine 10 mg tablet 10 mg PO DAILY Qty: 30 2RF metoprolol tartrate 50 mg tablet 50 mg PO DAILY Qty: 30 2RF Referrals / Follow Up: Cesar Keenan MD [Primary Care Provider, Internal Medicine] - 02/17/25 9:00 am Referral Note: PATIENT WILL SEE [facility] PHYSICIAN ELECTROCHEMIST Disposition Disposition (needs filled in before D/C Order can be placed): Home, Self Care Charges/Coding Visit Charges Inpatient E&M: 00252 Disch Hosp >30min
== END 2025-02-09 16:51 | disposition home or self-care (01) | DRG 640 ==
LOC: ED 07:18 → PCU 07:42
PROVIDERS: Admitting Provider Family Medicine; Emergency Provider Emergency Medicine; PCP Internal Medicine; Visit Provider Family Medicine
DX: E87.79 Other fluid overload (principal); N18.6 End stage renal disease; I13.2 Hypertensive heart and chronic kidney disease with heart failure and with stage 5 chronic kidney disease, or end stage renal disease; I50.22 Chronic systolic (congestive) heart failure; N13.8 Other obstructive and reflux uropathy; J44.9 Chronic obstructive pulmonary disease, unspecified; E10.22 Type 1 diabetes mellitus with diabetic chronic kidney disease; F32.A Depression, unspecified; D63.1 Anemia in chronic kidney disease; Z99.2 Dependence on renal dialysis; K21.9 Gastro-esophageal reflux disease without esophagitis; E78.5 Hyperlipidemia, unspecified; I25.10 Atherosclerotic heart disease of native coronary artery without angina pectoris; Z79.4 Long term (current) use of insulin; F17.200 Nicotine dependence, unspecified, uncomplicated; F41.9 Anxiety disorder, unspecified; E10.65 Type 1 diabetes mellitus with hyperglycemia; E10.649 Type 1 diabetes mellitus with hypoglycemia without coma; T38.3X5A Adverse effect of insulin and oral hypoglycemic [antidiabetic] drugs, initial encounter; R09.02 Hypoxemia; G89.29 Other chronic pain; N40.1 Benign prostatic hyperplasia with lower urinary tract symptoms; Z79.899 Other long term (current) drug therapy
CPT/HCPCS: 36415; 71045; 80048; 82962; 83735; 84100; 85025; 87631; 90937; 93005; 94640; 99285; A4216; G0257

== ENCOUNTER → 2025-03-15 | Outpatient (CLI) | payer MEDICARE, OTHER, SELFPAY ==
--- NOTE | 2025-03-15 09:59 | ECHOD_ITS ---
Reason For Study Reason For Study: Dyspnea/SOB Procedure This was a 2D Doppler, Color Flow transthoracic echocardiogram. Myocardial strain analysis was performed in this exam to aid in the assessment of cardiac function. Exam performed in department. Left Ventricle Normal left ventricle. Mild concentric left ventricular hypertrophy. The global longitudinal strain = -7.7% (abnormal). The left ventricular ejection fraction is 20 %. Stage 2 diastolic dysfunction. There is severe global hypokinesis of the left ventricle. Right Ventricle Normal RV size. Normal systolic function. Atria The left atrium is mildly enlarged. Normal right atrium. Mitral Valve There is moderate mitral annular calcification. Mild (1+) eccentric mitral valve insufficiency. Tricuspid Valve Normal tricuspid valve. Moderate (2+) tricuspid valve insufficiency. Pulmonary artery systolic pressure is 74 mmHg. Aortic Valve Trisinus/trileaflet aortic valve. Moderate focal aortic valve calcification. Peak aortic valve gradient 46 mmHg. Mean aortic valve gradient 23 mmHg. Low-flow low gradient aortic stenosis. Mild (1+) aortic valve insufficiency. Pulmonic Valve Normal pulmonic valve. Great Vessels Mildly calcified aortic root. The pulmonary artery is normal size. The inferior vena cava is dilated. Pericardium/Pleural Small (<1.0 cm) pericardial effusion. Moderate size left pleural effusion. MMode/2D Measurements & Calculations LVIDd: 5.1 cm IVSd: 1.2 cm LVOT diam: 2.1 cm LVIDs: 4.5 cm LVPWd: 1.5 cm LVOT area: 3.5 cm2 RVDd: 3.9 cm FS: 11.8 % Ao root diam: 1.6 cm LAV(MOD-bp): 74.7 ml LVAd ap4: 34.9 cm2 LAV(MOD-bp) Indexed: 47.4 ml/m2 LVLd ap4: 8.1 cm LAV(MOD-sp2): 75.9 ml EDV(MOD-sp4): 121.4 ml LAV(MOD-sp4): 70.5 ml EDV(sp4-el): 127.4 ml LVAs ap4: 29.0 cm2 LVLs ap4: 7.8 cm ESV(MOD-sp4): 89.3 ml ESV(sp4-el): 92.3 ml EF(MOD-sp4): 26.5 % EF(sp4-el): 27.6 % SV(MOD-sp4): 32.1 ml SV(sp4-el): 35.2 ml LA A4 area: 22.2 cm2 SI(MOD-sp4): 20.4 ml/m2 LA dimension(2D): 4.5 cm RA A4 area: 15.3 cm2 Time Measurements MV dec time: 0.17 sec Doppler Measurements & Calculations MV E max moo: 73.1 cm/sec Lat Peak E' Moo: 5.4 cm/sec Med Peak E' Moo: 3.7 cm/sec MV A max moo: 52.5 cm/sec E/E' lat: 13.6 E/E' med: 19.5 MV E/A: 1.4 MV V2 max: 70.3 cm/sec MV P1/2t max moo: 71.0 cm/sec Ao V2 max: 339.0 cm/sec MV max P.0 mmHg MV P1/2t: 70.3 msec Ao max P.0 mmHg MV V2 mean: 38.0 cm/sec Ao V2 mean: 218.0 cm/sec MV mean P.69 mmHg MV dec slope: 296.1 cm/sec2 Ao mean P.7 mmHg MV V2 VTI: 23.8 cm MVA(P1/2t): 3.1 cm2 Ao V2 VTI: 80.7 cm AV (velocity ratio): 0.18 MVA(VTI): 2.1 cm2 SANDEEP(I,D): 0.62 cm2 SANDEEP(V,D): 0.59 cm2 AI max moo: 409.1 cm/sec LV V1 max: 57.6 cm/sec SV(LVOT): 50.3 ml AI max P.1 mmHg LV V1 max P.3 mmHg LV V1 mean P.80 mmHg AI dec slope: 230.2 cm/sec2 LV V1 mean: 42.2 cm/sec AI P1/2t: 520.5 msec LV V1 VTI: 14.5 cm TR max moo: 380.7 cm/sec TR max P.0 mmHg ECHO/Echo Complete Interpretation Summary Normal left ventricle. Mild concentric left ventricular hypertrophy. The left ventricular ejection fraction is 20 %. The global longitudinal strain = -7.7% (abnormal). Stage 2 diastolic dysfunction. An amyloid pattern cannot be completely excluded. Compared to previous study, the left ventricular systolic function has worsened .. The global longitudinal strain is severely abnormal. Ordering Physician: Sampson Kwong Referring Physician: Sampson Kwong Performed By: Sherwin Drake RCS
== END | disposition home or self-care (01) ==
LOC: CVS 09:58
PROVIDERS: PCP Internal Medicine; Referring Provider Physician Assistant; Visit Provider Physician Assistant
DX: I25.10 Atherosclerotic heart disease of native coronary artery without angina pectoris (principal)
CPT/HCPCS: 93306

== ENCOUNTER 2025-04-07 09:50 | Inpatient (IN) | payer OTHER, SELFPAY ==
[2025-04-07] VITALS (22 sets, daily range): BP systolic 141–200; BP diastolic 71–174; PULSE 56–90; RESP 11–22; TEMP 36.3–37.1; O2SAT 93–100; BMI 18.3; BMI 17.7; BMI 17.8; BMI 16.4
--- NOTE | 2025-04-07 10:47 | RAD_ITS ---
PROCEDURE: CHEST PA AND LATERAL 04/07/2025 REASON FOR EXAM: SOB for 2-3 days TECHNIQUE: Procedure Code: RADCXR Modality: DX Procedure: CHEST PA AND LATERAL COMPARISON: Chest x-ray dated 01/30/2025 FINDINGS: Hardware: Cardiac leads overlie the chest. Pulmonary vasculature: Pulmonary vasculature is prominent centrally. Heart: Heart size appears to be enlarged but is difficult to evaluate due to the left cardiac border being de-silhouetted by the moderate to large size left pleural effusion. Arteriosclerotic vascular disease of the aorta is noted. Mediastinum: Unremarkable Lungs: Moderate to large size left pleural effusion which is similar when compared to the prior study. Bilateral prominent interstitial and alveolar markings are seen in both lungs. Bones: Bony demineralization of the thorax is noted. Spondylosis of the thoracic spine is noted. RAD/Chest PA and Lateral IMPRESSION: Chest x-ray findings compatible with pulmonary edema due to CHF and/or pneumoni c infiltrates. Stable moderate to large sized left pleural effusion. Reading Location: [id number]
--- NOTE | 2025-04-07 10:48 | EKG12_ITS ---
Test Reason : SOB Blood Pressure : */* mmHG Vent. Rate : 71 BPM Atrial Rate : 71 BPM P-R Int : 114 ms QRS Dur : 92 ms QT Int : 408 ms P-R-T Axes : 28 69 116 degrees QTcB Int : 443 ms Normal sinus rhythm Minimal voltage criteria for LVH, may be normal variant ( Sokolow-Rahman ) Borderline ECG Confirmed by Demarco Cabrera ([id number]), book editor NIRMALA RODRIGUEZ ([id number]) on 04/11/2025 6:14:02 AM Referred By: ARIANE Confirmed By: Demarco Cabrera
[2025-04-07] MEDS: 0.9% Normal Saline (500mL Bag) 500 ML 999 ML IV (11:18)
--- NOTE | 2025-04-07 11:20 | EDS_ITS ---
HPI History of Present Illness Chief Complaint: Shortness of Breath Narrative Narrative: Patient is a 79-year-old male with a past medical history of type 1 diabetes, COPD, anxiety, depression, chronic kidney disease on dialysis Thursday, aortic valve stenosis who presented to the emergency department the chief complaint of shortness of breath. Patient states that he has been short of breath for the last 2 to 3 days. According to significant other at bedside she notes that his breathing will become this way if they do not take enough fluid off his body during his dialysis session and thinks that this may be going on. He states he is not coughing denies any fevers and denies any recent sick contacts. Patient denies any history of blood clots denies any recent travels [facility] Medical History Unexplained weight loss Type 1 diabetes mellitus with hyperglycemia COPD (chronic obstructive pulmonary disease) Insomnia Anorexia Fracture of femoral neck, right, open Carotid stenosis Anxiety and depression Carotid artery disease Lipohypertrophy due to insulin injection Dyslipidemia Carotid bruit Coronary artery disease Chronic neck pain Debility Cancer Open wound Polymyalgia arteritica Low iron Leg cramps History of edema Cardiology follow-up encounter Prostate cancer Dependent on hemodialysis NPDR (nonproliferative diabetic retinopathy) Nonrheumatic aortic (valve) stenosis History of non-ST elevation myocardial infarction (NSTEMI) End stage renal disease Leukocytosis Edema of left upper arm HFrEF (heart failure with reduced ejection fraction) Acquired neutrophilia Aortic valve stenosis 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 1 diabetes mellitus Chronic neck and back pain Skin mole Fatigue Watery eyes CKD (chronic kidney disease) stage 4, GFR 15-29 ml/min Aortic root dilatation Olecranon bursitis, left elbow Mediastinal mass Olecranon bursitis, right elbow Unintentional weight loss of more than 10 pounds Swelling of right elbow Heart murmur Contact with or suspected exposure to other viral communicable disease Acute bronchitis Insulin dependent diabetes mellitus CKD (chronic kidney disease), stage IV Osteopenia Wears hearing aid Wears glasses Wears dentures Alcohol use Insulin dependent diabetes mellitus Arthritis High cholesterol Back pain Dietary restriction Former smoker Shortness of breath on exertion History of pain when walking History of stress test History of echocardiogram Nicotine dependence, cigarettes, uncomplicated Episode of syncope Mass of lung REYES (dyspnea on exertion) Wears hearing aid in both ears Hearing loss, left Hearing loss, right Kidney stones Smoker Hypertension Chronic kidney insufficiency Diabetic retinopathy associated with type 1 diabetes mellitus Benign essential hypertension Stage 3 chronic kidney disease due to type 1 diabetes mellitus Diabetic polyneuropathy associated with type 1 diabetes mellitus Essential hypertension Mixed hyperlipidemia Vision problem Prostate disease Osteoarthritis Hearing problem COPD (chronic obstructive pulmonary disease) Cataracts, bilateral Bone fracture Back problem Anemia Bronchitis Family history of hyperlipidemia Family history of hypertension Headache Dyspnea on exertion Hyperlipidemia Nicotine abuse Atherosclerotic heart disease of [place] coronary artery without angina pectoris 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 Sleep apnea Hypertension Home Medications ?Medication ?Instructions ?Recorded ?Last Taken ?Type aspirin 81 mg tablet,delayed 81 mg PO QDAY heart healt h 06/15/17 03/01/23 History release (Adult Low Dose Aspirin) finasteride 5 mg tablet (Proscar) 5 mg PO DAILY prosta te 06/16/17 Unknown History flash glucose scanning reader #2 ea 03/28/22 Unknown R x (FreeStyle Tani 2 [place]) flash glucose sensor (FreeStyle #2 ea 03/28/22 Unknown Rx Tani 2 Sensor kit) cholecalciferol (vitamin D3) 125 125 mcg PO DAILY rocio min 05/05/22 Unknown History mcg (5,000 unit) capsule acetaminophen 325 mg tablet 650 mg (2 x 325 mg) PO Q4H PRN PRN 12/12/22 Unknown Rx Fever, pain 1-01/20 #0 tabs insulin lispro 100 unit/mL See Protocol subcut ACHS di abetes 01/14/23 Unknown History subcutaneous pen (Humalog KwikPen (U-100) Insulin) calcium 600 mg (as 1 cap PO DAILY vitamin 01/23 Unknown History carbonate)-vitamin D3 10 mcg (400 unit) capsule magnesium 250 mg tablet 250 mg PO QDAY supplement Unknown History pantoprazole 40 mg tablet,delayed 40 mg PO BID reflux 01/29/24 Unknown History release renal multivitamin 1 tab PO DAILY vitamin 01/28 Unknown History tamsulosin 0.4 mg capsule 0.4 mg PO QDAY prostate 01/11 12/04 Unknown History atorvastatin 40 mg tablet 40 mg PO QHS cholesterol Unknown History ferrous sulfate 325 mg (65 mg 325 mg PO DAILY suppleme nt #30 tabs 02/28/24 Unknown Rx iron) tablet (Iron (ferrous sulfate)) B1 2 mg-B6 4 mg-folate 800 mcg cap PO 12/28/24 Unknown History [id number]. gasseri-herb capsule docusate sodium 100 mg capsule 100 mg PO QDAY stool so ftner 12/28/24 Unknown History (Colace) duloxetine 30 mg capsule,delayed 30 mg PO QDAY mental health 12/28/24 Unknown History release insulin glargine 100 unit/mL (3 10 unit subcut QPM DM 02/08/25 Unknown History mL) subcutaneous pen (Lantus Solostar U-100 Insulin) furosemide 40 mg tablet 80 mg PO DAILY weight gain 1 04/19/24 Unknown History empagliflozin 10 mg tablet 10 mg PO DAILY #90 tabs Unknown Rx (Jardiance) isosorbide mononitrate 30 mg 30 mg PO DAILY #30 tabs 1 05/30/24 Unknown Rx tablet,extended release 24 hr metoprolol succinate 50 mg 50 mg PO DAILY #90 tabs Unknown Rx tablet,extended release 24 hr Allergy/AdvReac Type Severity Reaction Status Date / Time levofloxacin ([facility] [address] [facility] [place] Allergy Hives Verified 04/07/25 09:53 vancomycin AdvReac Severe Rash Verified 04/07/25 09:53 Family History Father Diabetes Hypertension Family history of hyperlipidemia Asthma Kidney disease Mother Diabetes Brother Cancer Throat cancer Brother CAD (coronary artery disease) Myocardial infarction, Onset Age: 52 Sister Family history of hyperlipidemia Hypertension Diabetes Unknown Alcoholism Arthritis Depression Diabetes Hypertension Hyperlipidemia Osteoporosis Respiratory disease Pancreatic cancer Other Family history of hypertension Surgical History History of hip surgery S/P arteriovenous (AV) fistula creation Fracture of left patella Wrist fracture, bilateral Fracture of left upper extremity History of colonoscopy (~2013) History of bilateral inguinal hernia repair (~2007) History of hernia repair (~1991) History of hemorrhoidectomy (~2000) stent replacement for right sided kidney stome Social History household members: spouse Smoking Status: Light Smoker (<10/day) Tobacco: How many years used: 50 alcohol intake: never substance use type: does not use caffeine: Yes Type: coffee Number of servings: 2 what type of physical activity do you participate in: none seatbelt use: sometimes do you feel safe at home: Yes ROS ROS ED ROS Narrative Constitutional: Denies any fevers or chills Cardiovascular: Denies chest pain Respiratory: Complains of shortness of breath as noted above denies coughing Abdomen: Denies abdominal pain nausea vomiting diarrhea Neurological: Denies any numbness, weakness, tingling Musculoskeletal: Denies back pain Skin: Denies any rashes or lesions EXAM Physical Exam Narrative Exam Narrative: General: Patient lying in bed rest comfortably do not appear to be in acute distress Head: Atraumatic, normocephalic Eyes: PERRL bilaterally, EOMI bilaterally, no conjunctival injection noted Neck: Soft, supple, trachea midline Cardiovascular: Regular rate and rhythm no murmurs gallops rubs noted Respiratory: Clear to auscultation bilaterally Abdomen: Soft, nondistended, nontender to palpation Extremities: +4/5 strength noted in the bilateral upper and lower extremities, no pedal edema on exam notes that he never developed swelling in his lower extremities when he is volume overloaded Neurological: Denies any numbness, tingling Skin: Denies any rashes or lesions Const Vital Signs: 04/07/25 09:52 04/07/25 10:13 04/07/25 10:27 Temperature 97.8 F Temperature Source Oral Pulse Rate 75 68 Respiratory Rate 22 H Respiratory Effort Normal Short of Breath Respiratory Depth Normal Respiratory Pattern Tachypnea Blood Pressure 180/95 H Blood Pressure Mean 123 Pulse Ox 100 100 Oxygen Delivery Method Nasal Cannula Nasal Cannula Oxygen Flow Rate (L/min) 2 Fraction of Inspired Oxygen (FIO2) 2 04/07/25 10:30 04/07/25 10:45 04/07/25 10:54 Temperature Temperature Source Pulse Rate 70 66 Respiratory Rate 11 L 11 L Respiratory Effort Respiratory Depth Respiratory Pattern Blood Pressure 173/114 H 164/90 H Blood Pressure Mean 131 111 Pulse Ox 100 100 Oxygen Delivery Method Nasal Cannula Oxygen Flow Rate (L/min) Fraction of Inspired Oxygen (FIO2) 2 04/07/25 10:54 04/07/25 11:00 04/07/25 11:00 Temperature Temperature Source Pulse Rate 72 70 74 Respiratory Rate 18 12 21 H Respiratory Effort Respiratory Depth Respiratory Pattern Blood Pressure 164/90 H 180/90 H 171/84 H Blood Pressure Mean 114 120 109 Pulse Ox 100 99 Oxygen Delivery Method Nasal Cannula Nasal Cannula Oxygen Flow Rate (L/min) 2 2 Fraction of Inspired Oxygen (FIO2) 04/07/25 11:15 04/07/25 11:30 04/07/25 11:30 Temperature Temperature Source Pulse Rate 76 77 Respiratory Rate 17 16 Respiratory Effort Respiratory Depth Respiratory Pattern Blood Pressure 180/90 H 177/86 H 177/86 H Blood Pressure Mean 113 113 113 Pulse Ox 100 100 Oxygen Delivery Method Oxygen Flow Rate (L/min) Fraction of Inspired Oxygen (FIO2) 04/07/25 11:45 04/07/25 12:00 Temperature Temperature Source Pulse Rate 85 90 Respiratory Rate 20 H Respiratory Effort Respiratory Depth Respiratory Pattern Blood Pressure 196/82 H 200/174 H Blood Pressure Mean 115 184 Pulse Ox 98 99 Oxygen Delivery Method Oxygen Flow Rate (L/min) Fraction of Inspired Oxygen (FIO2) MDM MDM MDM Narrative Medical decision making narrative: Patient is a 79-year-old male who presented to the emergency department with a chief complaint of shortness of breath. On the differential diagnose includes but limited to hypervolemic state, pneumonia, ACS, pneumothorax. Once workup is obtained and reviewed he will be reevaluated. Patient's CBC reviewed and showed a white blood count is noted to be normal at 5.8, hemoglobin stable 11.9, platelet count was noted to be 320. Patient INR normal 0.9, PT of 12.3. Patient sodium normal 140, potassium normal at 4, creatinine was noted to be 3.85 he has underlying chronic kidney disease according to his previous blood draws. Patient's lactic acid was normal at 1.5, AST and ALT were noted to be 207 and 148 respectively patient does not have any right upper quadrant pain. Patient's chest x-ray reviewed by myself and by radiology which showed compatible with pulmonary edema due to CHF and or pneumonic infiltrates I have low suspicion for pneumonia as he is not coughing anything up this is likely secondary to a hypervolemic state with a stable moderate to large sized left pleural effusion noted. Patient is EKG reviewed showed sinus rhythm rate of 71 bpm IA interval of 114. This was compared to previous EKGs February 07, 2025 and is largely unchanged. Patient will be given 40 mg IV Lasix. Patient also be given 0.1 mg clonidine. Patient attempted to ambulate he became very dyspneic and short of breath with just trying to get up out of bed and felt very weak therefore case will discuss with hospitalist for admission. Discussed case with hospitalist Dr. Heredia who accept patient for admission. Patient notified is agreeable to plan all question concerns answered at bedside. Lab Data Labs: Laboratory Results - last 24 hr 04/07/25 11:20 WBC 5.8 RBC 3.76 L Hgb 11.9 L Hct 36.0 L MCV 95.7 H MCH 31.6 MCHC 33.1 RDW Std Deviation 47.0 H RDW Coeff of [place] 13.4 Plt Count 320 MPV 10.7 Immature Gran % (Auto) 0.200 Neut % (Auto) 71.4 H Lymph % (Auto) 16.7 L [place] % (Auto) 9.6 Eos % (Auto) 1.2 Baso % (Auto) 0.9 Absolute Neuts (auto) 4.1 Absolute Lymphs (auto) 0.96 Nucleated RBC % 0 PT 12.3 INR 0.9 APTT 28.2 Sodium 140 Potassium 4.3 Chloride 96 Carbon Dioxide 29.9 H Anion Gap 14 BUN 59 H Creatinine 3.85 H Estim Creat Clear Calc 11.32 L Est GFR (MDRD) Non-Af 15 L BUN/Creatinine Ratio 15.2 Glucose 70 Lactic Acid 1.5 Calcium 8.5 Total Bilirubin 0.30 AST 207 H ALT 148 H Alkaline Phosphatase 229 H Total Protein 6.7 Albumin 3.8 Globulin 2.8 Albumin/Globulin Ratio 1.4 Radiography Diagnostic Testing: Clinical Impression(s) from Imaging Studies Chest X-Ray 04/07/25 10:47 IMPRESSION: Chest x-ray findings compatible with pulmonary edema due to CHF and/or pneumonic infiltrates. Stable moderate to large sized left pleural effusion. Reading Location: [id number] Discharge Plan Dx/Rx/DC Orders Clinical Impression: End stage renal disease, Coronary artery disease, Chronic kidney disease on chronic dialysis, Type 1 diabetes mellitus, Dyspnea on exertion, Generalized weakness Disposition Disposition: Acute Care Hospital [facility]
[2025-04-07 11:33] LABS: Hematocrit 36.0 % (40-54); Hemoglobin 11.9 g/dL (13.0-16.5); Immature Granulocytes Count 0.010 X10^3/uL (0.0-0.0); Mean Corp Hgb Conc 33.1 g/dL (32-36); Mean Corpuscular Volume 95.7 fL (80-94); Mean Platelet Vol. 10.7 fl (6.2-12.0); NRBC Flagged by Analyzer 0 % (0-5); Platelet Count 320 K/mm3 (150-450); RBC Distribution Width CV 13.4 % (11.6-14.6); RBC Distribution Width SD 47.0 fl (35.1-43.9); Red Blood Count 3.76 M/mm3 (4.6-6.2); White Blood Count 5.8 K/mm3 (4.4-11.0)
[2025-04-07 11:41] LABS: Prothrombin Time (Protime)PT. 12.3 SECONDS (11.7-14.9)
[2025-04-07 11:42] LABS: Partial Thromboplast Time 28.2 Seconds (24.1-36.2)
[2025-04-07 12:11] LABS: AST(SGOT) 207 U/L (<=37); Alanine Aminotransfer ALT/SGPT 148 U/L (<=46); Albumin, Serum 3.8 g/dL (3.4-4.8); Alkaline Phosphatase 229 U/L (40-129); Anion Gap 14 (7-18); BUN 59 mg/dL (4-19); BUN/Creat Ratio 15.2 RATIO (10-20); Calcium,Total 8.5 mg/dL (7.6-11.0); Carbon Dioxide 29.9 mmol/L (20.0-29.0); Chloride 96 mmol/L (96-106); Estimated Creatinine Clearance 11.32 ml/min (50-250); Globulin 2.8 g/dL (2.2-4.2); Glucose 70 mg/dL (70-99); Potassium 4.3 mmol/L (3.5-5.1)
--- NOTE | 2025-04-07 12:35 | PCM.HP.STD ---
HPI - General General Date of Admission: 04/07/25 Date of Service: 04/07/25 Chief Complaint: shortness of breath HPI Narrative DEX VALLE, is a 79 M with a PMH as outlined who was admitted via the ED on 04/07/2025 with a complaint of shortness of breath which had been going on for one day. He has ESRD on HD T/T/S. He last had dialysis on Thursday. HE came in with shortness of breath. He denied any cough, chest pain, palpitations, dizziness, nausea, vomiting or any other symptoms. Review of systems is otherwise negative. Vitals in the ED were BP of 200/ 174, RR of 20, Pulse ox of 99% on 2L of oxygen. CBC showed hb of 11.9,. wbc of 5.8 and platelets of 320. INR is 0.9. Chemistry showed sodium 140 and potassiuim of 4.3 and bicarb of 29.9. Creatinine is 3.85 with AST/ALT and ALP of 207, 148 and 229. Chest x-ray showed findings compatible with pulmonary edema due to CHF and also pneumonic infiltrates with a stable moderate to large left pleural effusion. He has been admitted and managed for hypoxia likely due to fluid overload from ESRD. [facility] Medical History Unexplained weight loss Type 1 diabetes mellitus with hyperglycemia COPD (chronic obstructive pulmonary disease) Insomnia Anorexia Fracture of femoral neck, right, open Carotid stenosis Anxiety and depression Carotid artery disease Lipohypertrophy due to insulin injection Dyslipidemia Carotid bruit Coronary artery disease Chronic neck pain Debility Cancer Open wound Polymyalgia arteritica Low iron Leg cramps History of edema Cardiology follow-up encounter Prostate cancer Dependent on hemodialysis NPDR (nonproliferative diabetic retinopathy) Nonrheumatic aortic (valve) stenosis History of non-ST elevation myocardial infarction (NSTEMI) End stage renal disease Leukocytosis Edema of left upper arm HFrEF (heart failure with reduced ejection fraction) Acquired neutrophilia Aortic valve stenosis 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 1 diabetes mellitus Chronic neck and back pain Skin mole Fatigue Watery eyes CKD (chronic kidney disease) stage 4, GFR 15-29 ml/min Aortic root dilatation Olecranon bursitis, left elbow Mediastinal mass Olecranon bursitis, right elbow Unintentional weight loss of more than 10 pounds Swelling of right elbow Heart murmur Contact with or suspected exposure to other viral communicable disease Acute bronchitis Insulin dependent diabetes mellitus CKD (chronic kidney disease), stage IV Osteopenia Wears hearing aid Wears glasses Wears dentures Alcohol use Insulin dependent diabetes mellitus Arthritis High cholesterol Back pain Dietary restriction Former smoker Shortness of breath on exertion History of pain when walking History of stress test History of echocardiogram Nicotine dependence, cigarettes, uncomplicated Episode of syncope Mass of lung REYES (dyspnea on exertion) Wears hearing aid in both ears Hearing loss, left Hearing loss, right Kidney stones Smoker Hypertension Chronic kidney insufficiency Diabetic retinopathy associated with type 1 diabetes mellitus Benign essential hypertension Stage 3 chronic kidney disease due to type 1 diabetes mellitus Diabetic polyneuropathy associated with type 1 diabetes mellitus Essential hypertension Mixed hyperlipidemia Vision problem Prostate disease Osteoarthritis Hearing problem COPD (chronic obstructive pulmonary disease) Cataracts, bilateral Bone fracture Back problem Anemia Bronchitis Family history of hyperlipidemia Family history of hypertension Headache Dyspnea on exertion Hyperlipidemia Nicotine abuse Atherosclerotic heart disease of [place] coronary artery without angina pectoris 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 Sleep apnea Hypertension Home Medications ?Medication ?Instructions ?Recorded ?Last Taken ?Type aspirin 81 mg tablet,delayed 81 mg PO QDAY heart health 06/15/17 03/01/23 History release (Adult Low Dose Aspirin) finasteride 5 mg tablet (Proscar) 5 mg PO DAILY prostate 06/16/17 Unknown History flash glucose scanning reader #2 ea 03/28/22 Unknown Rx (FreeStyle Tani 2 [place]) flash glucose sensor (FreeStyle #2 ea 03/28/22 Unknown Rx Tani 2 Sensor kit) cholecalciferol (vitamin D3) 125 125 mcg PO DAILY vitamin 05/05/22 Unknown History mcg (5,000 unit) capsule acetaminophen 325 mg tablet 650 mg (2 x 325 mg) PO Q4H PRN PRN 12/12/22 Unknown Rx Fever, pain 1-01/20 #0 tabs insulin lispro 100 unit/mL See Protocol subcut ACHS diabetes 01/14/23 Unknown History subcutaneous pen (Humalog KwikPen (U-100) Insulin) calcium 600 mg (as 1 cap PO DAILY vitamin 01/23/23 Unknown History carbonate)-vitamin D3 10 mcg (400 unit) capsule magnesium 250 mg tablet 250 mg PO QDAY supplement 01/29/24 Unknown History pantoprazole 40 mg tablet,delayed 40 mg PO BID reflux 01/29/24 Unknown History release renal multivitamin 1 tab PO DAILY vitamin 01/29/24 Unknown History tamsulosin 0.4 mg capsule 0.4 mg PO QDAY prostate 01/29/24 Unknown History atorvastatin 40 mg tablet 40 mg PO QHS cholesterol 02/24/24 Unknown History ferrous sulfate 325 mg (65 mg 325 mg PO DAILY supplement #30 tabs 02/28/24 Unknown Rx iron) tablet (Iron (ferrous sulfate)) B1 2 mg-B6 4 mg-folate 800 mcg cap PO 12/28/24 Unknown History [id number]-L. gasseri-herb capsule docusate sodium 100 mg capsule 100 mg PO QDAY stool softner 12/28/24 Unknown History (Colace) duloxetine 30 mg capsule,delayed 30 mg PO QDAY mental health 12/28/24 Unknown History release insulin glargine 100 unit/mL (3 10 unit subcut QPM DM 02/08/25 Unknown History mL) subcutaneous pen (Lantus Solostar U-100 Insulin) furosemide 40 mg tablet 80 mg PO DAILY weight gain 02/17/25 Unknown History empagliflozin 10 mg tablet 10 mg PO DAILY #90 tabs 03/29/25 Unknown Rx (Jardiance) isosorbide mononitrate 30 mg 30 mg PO DAILY #30 tabs 03/29/25 Unknown Rx tablet,extended release 24 hr metoprolol succinate 50 mg 50 mg PO DAILY #90 tabs 03/29/25 Unknown Rx tablet,extended release 24 hr Allergy/AdvReac Type Severity Reaction Status Date / Time levofloxacin (From Levaquin) Allergy Hives Verified 04/07/25 09:53 vancomycin AdvReac Severe Rash Verified 04/07/25 09:53 Family History Father Diabetes Hypertension Family history of hyperlipidemia Asthma Kidney disease Mother Diabetes Brother Cancer Throat cancer Brother CAD (coronary artery disease) Myocardial infarction, Onset Age: 52 Sister Family history of hyperlipidemia Hypertension Diabetes Unknown Alcoholism Arthritis Depression Diabetes Hypertension Hyperlipidemia Osteoporosis Respiratory disease Pancreatic cancer Other Family history of hypertension Surgical History History of hip surgery S/P arteriovenous (AV) fistula creation Fracture of left patella Wrist fracture, bilateral Fracture of left upper extremity History of colonoscopy (~2013) History of bilateral inguinal hernia repair (~2007) History of hernia repair (~1991) History of hemorrhoidectomy (~2000) stent replacement for right sided kidney stome Social History household members: spouse Smoking Status: Light Smoker (<10/day) Tobacco: How many years used: 50 alcohol intake: never substance use type: does not use caffeine: Yes Type: coffee Number of servings: 2 what type of physical activity do you participate in: none seatbelt use: sometimes do you feel safe at home: Yes ROS Constitutional Constitutional: Reports fatigue, malaise and weakness; Denies anorexia, chills or fever(s) Eyes Eyes: Denies change in vision ENT HEENT: Denies dysphagia, headache(s) or nasal discharge Cardiovascular Cardiovascular: Reports dyspnea on exertion; Denies chest pain, edema, lightheadedness, orthopnea, palpitations, paroxysmal nocturnal dyspnea, rapid heart rate or syncope Gastrointestinal Gastrointestinal: Denies abdominal pain, constipation, diarrhea, dyspepsia, nausea or vomiting Genitourinary Genitourinary: Denies burning urination or dysuria Musculoskeletal Musculoskeletal: Denies arthralgias or joint pain Neurologic Neurologic: Denies confusion, dizziness, focal weakness, headache(s), numbness or seizures Patient's Goals Of Care . What would you like to achieve or improve as a result of your hospital stay?: to feel better Vital Signs Vital Signs Vital Signs: 04/07/25 09:52 04/07/25 10:13 04/07/25 10:27 Temperature 97.8 F Temperature Source Oral Pulse Rate 75 68 Respiratory Rate 22 H Respiratory Effort Normal Short of Breath Respiratory Depth Normal Respiratory Pattern Tachypnea Blood Pressure 180/95 H Blood Pressure Mean 123 Pulse Ox 100 100 Oxygen Delivery Method Nasal Cannula Nasal Cannula Oxygen Flow Rate (L/min) 2 Fraction of Inspired Oxygen (FIO2) 2 04/07/25 10:30 04/07/25 10:45 04/07/25 10:54 Temperature Temperature Source Pulse Rate 70 66 Respiratory Rate 11 L 11 L Respiratory Effort Respiratory Depth Respiratory Pattern Blood Pressure 173/114 H 164/90 H Blood Pressure Mean 131 111 Pulse Ox 100 100 Oxygen Delivery Method Nasal Cannula Oxygen Flow Rate (L/min) Fraction of Inspired Oxygen (FIO2) 2 04/07/25 10:54 04/07/25 11:00 04/07/25 11:00 Temperature Temperature Source Pulse Rate 72 70 74 Respiratory Rate 18 12 21 H Respiratory Effort Respiratory Depth Respiratory Pattern Blood Pressure 164/90 H 180/90 H 171/84 H Blood Pressure Mean 114 120 109 Pulse Ox 100 99 Oxygen Delivery Method Nasal Cannula Nasal Cannula Oxygen Flow Rate (L/min) 2 2 Fraction of Inspired Oxygen (FIO2) 04/07/25 11:15 04/07/25 11:30 04/07/25 11:30 Temperature Temperature Source Pulse Rate 76 77 Respiratory Rate 17 16 Respiratory Effort Respiratory Depth Respiratory Pattern Blood Pressure 180/90 H 177/86 H 177/86 H Blood Pressure Mean 113 113 113 Pulse Ox 100 100 Oxygen Delivery Method Oxygen Flow Rate (L/min) Fraction of Inspired Oxygen (FIO2) 04/07/25 11:45 04/07/25 12:00 Temperature Temperature Source Pulse Rate 85 90 Respiratory Rate 20 H Respiratory Effort Respiratory Depth Respiratory Pattern Blood Pressure 196/82 H 200/174 H Blood Pressure Mean 115 184 Pulse Ox 98 99 Oxygen Delivery Method Oxygen Flow Rate (L/min) Fraction of Inspired Oxygen (FIO2) Weight Weight: 117 lb 4.575 oz Body Mass Index (BMI) 18.3 Physical Exam Const alert and oriented x3 Constitutional Narrative: frail, weak General Appearance: cooperative HEENT normocephalic, head/scalp atraumatic, moist oral mucous membranes and oropharynx normal Mouth: oral and palatal mucosa normal Eyes EOMs intact bilaterally and conjunctivae normal Neck supple and no JVD Resp Resp Narrative: moderately diminished breath sounds bibasally, no wheezes or crackles. On 2L of oxygen by nasal canula Cardio regular rate, regular rhythm, S1 normal heart sound, S2 normal heart sound and no murmurs GI normal to inspection, nondistended, normoactive bowel sounds, soft to palpation and non-tender Extremity normal to inspection, full ROM and no clubbing, cyanosis or edema Neuro CN's II-XII intact bilaterally, moves all extremities and no focal motor deficits Sensorium / Orientation: awake and alert Motor Exam: strength 5/5 throughout Psych affect normal Results Lab / Micro Data 04/07/25 11:20 04/07/25 11:20 Labs: Laboratory Results - last 24 hr 04/07/25 11:20: WBC 5.8, RBC 3.76 L, Hgb 11.9 L, Hct 36.0 L, MCV 95.7 H, MCH 31.6, MCHC 33.1, RDW Std Deviation 47.0 H, RDW Coeff of [place] 13.4, Plt Count 320, MPV 10.7, Immature Gran % (Auto) 0.200, Neut % (Auto) 71.4 H, Lymph % (Auto) 16.7 L, [place] % (Auto) 9.6, Eos % (Auto) 1.2, Baso % (Auto) 0.9, Absolute Neuts (auto) 4.1, Absolute Lymphs (auto) 0.96, Nucleated RBC % 0, PT 12.3, INR 0.9, APTT 28.2, Sodium 140, Potassium 4.3, Chloride 96, Carbon Dioxide 29.9 H, Anion Gap 14, BUN 59 H, Creatinine 3.85 H, Estim Creat Clear Calc 11.32 L, Est GFR (MDRD) Non-Af 15 L, BUN/Creatinine Ratio 15.2, Glucose 70, Lactic Acid 1.5, Calcium 8.5, Total Bilirubin 0.30, AST 207 H, ALT 148 H, Alkaline Phosphatase 229 H, Total Protein 6.7, Albumin 3.8, Globulin 2.8, Albumin/Globulin Ratio 1.4 Micro: Microbiology 04/07/25 11:20 Mucosa - Nasopharyngeal SARS-CoV-2, Influenza & RSV (PCR) - Final Imaging Radiology Impression Chest X-Ray 04/07/25 10:47 IMPRESSION: Chest x-ray findings compatible with pulmonary edema due to CHF and/or pneumonic infiltrates. Stable moderate to large sized left pleural effusion. Reading Location: [id number] Assessment & Plan Assessment/Plan (1) Dyspnea on exertion: (2) End stage renal disease: PLAN: Plan #Hypoxia likely due to fluid overload in the setting of ESRD on HD admit to PCU admitted with a complaitn of shortness of breath. Per significant other, he often gets short of breath when he does not have enough fluid taken off during dialysis. Cr is 3.85, EKG showed no acute ST changes Chest x-ray showed stable moderate to large left pleural effusion. Consult nephrology. Benefit from dialysis. Breathing treatments bronchodilators protocol oxygen to maintain saturation above 90%. # Hypertensive emergency Blood pressures 200/174. Was given a dose of clonidine in the ED. This coupled with her shortness of breath recent diagnosis of hypertensive emergency. Resume his BP meds. IV hydralazine as needed. Should improve with dialysis #Type 1 diabetes mellitus: On Jardiance. Insulin sliding scale. Accu-Cheks ACHS. Also on Lantus 10 units nightly #COPD: Breathing treatments bronchodilators. Does not appear to be in exacerbation as the shortness of breath can be explained by the fluid overload. #BPH: On Flomax Prophylaxis: Heparin CODE STATUS:full code Patient and counseled extensively about different types of CODE STATUS including full code, DNR CCA and DNR CCA. Patient elects to be full code and wants CPR and intubation if needed. Total [id number] time 16 minutes. Charges/Coding Visit Charges Inpatient E&M: 70263 Init Hosp L3 Procedures Hospitalists Procedures: 06252 Advncd Care Plan 30 Min
[2025-04-07] MEDS: 0.9% Normal Saline 1,000 ML IV.SOLN. 1000 ML OPERA.SITE (14:19)
[2025-04-07] MEDS: PureFlow B 2K Dialysis Soln 1 BAG 6 BAG PF (14:20)
[2025-04-07] MEDS: Ensure Plus High Protein 120 ML LIQUID PO (17:36)
[2025-04-07] MEDS: Heparin Injection (Vial) 5,000 UNIT/ML VIAL 5000 UNIT SC ×2 (17:36→21:49)
[2025-04-07 18:12] LABS: Mucous, Urine 0 SEEN /hpf (<or=2+)
[2025-04-07 18:49] LABS: Color, Urine Yellow (Yellow); Glucose, Dipstick 50 mg/dl (Normal); Ketone-Dipstick Negative (Negative); Leukocyte Esterase-Dipstick Negative /ul (Negative); Nitrite-Dipstick Negative (Negative); Occult Blood-Urine 25 /ul (Negative); Protein-Dipstick 500 mg/dl (Negative); Specific Gravity, Urine 1.015 (1.002-1.030); Urine Bilirubin Dipstick Negative (Negative)
[2025-04-07 19:16] LABS: Red Blood Cells-Urine 0-5 SEEN /hpf (0-5); Squamous Epithelial Cells - UA 0-5 SEEN /hpf (0-5)
[2025-04-07] MEDS: Insulin Glargine-YFGN 100 UNIT/ML Pen 10 UNIT SC (21:57)
[2025-04-07] MEDS: 0.9% Saline Lock 10 ML Syringe IV (22:03)
[2025-04-08] VITALS (17 sets, daily range): BP systolic 113–176; BP diastolic 62–90; PULSE 54–78; RESP 12–16; TEMP 36.5–37.1; O2SAT 94–100; BMI 16.7; BMI 16.3
[2025-04-08] MEDS: Heparin Injection (Vial) 5,000 UNIT/ML VIAL 5000 UNIT SC ×3 (06:01→21:08)
[2025-04-08 06:37] LABS: Hematocrit 30.8 % (40-54); Hemoglobin 10.3 g/dL (13.0-16.5); Immature Granulocytes Count 0.010 X10^3/uL (0.0-0.0); Mean Corp Hgb Conc 33.4 g/dL (32-36); Mean Corpuscular Volume 94.8 fL (80-94); Mean Platelet Vol. 11.0 fl (6.2-12.0); NRBC Flagged by Analyzer 0 % (0-5); Platelet Count 257 K/mm3 (150-450); RBC Distribution Width CV 13.3 % (11.6-14.6); RBC Distribution Width SD 46.3 fl (35.1-43.9); Red Blood Count 3.25 M/mm3 (4.6-6.2); White Blood Count 3.9 K/mm3 (4.4-11.0)
[2025-04-08 07:19] LABS: Anion Gap 12 (7-18); BUN 49 mg/dL (4-19); BUN/Creat Ratio 15.6 RATIO (10-20); Calcium,Total 8.0 mg/dL (7.6-11.0); Carbon Dioxide 27.8 mmol/L (20.0-29.0); Chloride 94 mmol/L (96-106); Estimated Creatinine Clearance 12.44 ml/min (50-250); Glucose 469 mg/dL (70-99); Potassium 4.5 mmol/L (3.5-5.1)
--- NOTE | 2025-04-08 07:46 | PCM.PN.HOSP ---
Reason for Visit Chief Complaint: shortness of breath Subjective Subjective Patient states he feels okay right now. Plan is to run dialysis today. Blood pressure seems to be better. Patient would like to go home tomorrow if possible. I told him would see how his breathing looks with an amatory pulse ox and what his blood pressures look like. Objective Data Objective Data Vital Signs: Vital Signs Temp Pulse Resp BP Pulse Ox O2 Del Method O2 Flow Rate 98.7 F 78 16 176/90 H 98 Room Air 2 04/08/25 04:00 04/08/25 04:00 04/08/25 04:00 04/08/25 04:00 04/08/25 04:00 04/08/25 04:00 04/07/25 15:00 FiO2 2 04/07/25 10:54 Oxygen Flow Rate (L/min) 2 Oxygen Delivery Method Room Air Weight: 47.5 kg Body Mass Index (BMI) 16.4 Intake & Output: Intake and Output for Last 24 Hours 04/06/25 04/07/25 04/08/25 23:59 23:59 23:59 Intake Total 500 / 500 Output Total 4200 / 4200 Balance -3700 / -3700 Lab / Micro Data 04/08/25 05:36 04/08/25 05:36 Labs: Laboratory Results - last 24 hr 04/07/25 11:20: WBC 5.8, RBC 3.76 L, Hgb 11.9 L, Hct 36.0 L, MCV 95.7 H, MCH 31.6, MCHC 33.1, RDW Std Deviation 47.0 H, RDW Coeff of [place] 13.4, Plt Count 320, MPV 10.7, Immature Gran % (Auto) 0.200, Neut % (Auto) 71.4 H, Lymph % (Auto) 16.7 L, [place] % (Auto) 9.6, Eos % (Auto) 1.2, Baso % (Auto) 0.9, Absolute Neuts (auto) 4.1, Absolute Lymphs (auto) 0.96, Nucleated RBC % 0, PT 12.3, INR 0.9, APTT 28.2, Sodium 140, Potassium 4.3, Chloride 96, Carbon Dioxide 29.9 H, Anion Gap 14, BUN 59 H, Creatinine 3.85 H, Estim Creat Clear Calc 11.32 L, Est GFR (MDRD) Non-Af 15 L, BUN/Creatinine Ratio 15.2, Glucose 70, Lactic Acid 1.5, Calcium 8.5, Total Bilirubin 0.30, AST 207 H, ALT 148 H, Alkaline Phosphatase 229 H, Total Protein 6.7, Albumin 3.8, Globulin 2.8, Albumin/Globulin Ratio 1.4 04/07/25 13:03: POC Glucose 43 L* 04/07/25 13:30: POC Glucose 170 H 04/07/25 16:08: POC Glucose 73 L 04/07/25 18:03: Urine Color Yellow, Urine Clarity Clear, Urine pH 6.0, Ur Specific [place] 1.015, Urine Protein 500 H, Urine Glucose (UA) 50 H, Urine Ketones Negative, Urine Occult Blood 25 H, Urine Nitrite Negative, Urine Bilirubin Negative, Urine Urobilinogen Normal, Ur Leukocyte Esterase Negative, Urine RBC 0-5 SEEN, Urine WBC 0-5 SEEN, Ur Squamous Epith Cells 0-5 SEEN, Urine Bacteria Not Reportable, Urine Mucus 0 SEEN 04/07/25 21:56: POC Glucose 388 H 04/08/25 05:36: WBC 3.9 L, RBC 3.25 L, Hgb 10.3 L, Hct 30.8 L, MCV 94.8 H, MCH 31.7, MCHC 33.4, RDW Std Deviation 46.3 H, RDW Coeff of [place] 13.3, Plt Count 257, MPV 11.0, Immature Gran % (Auto) 0.300, Neut % (Auto) 69.3, Lymph % (Auto) 18.4 L, [place] % (Auto) 9.2, Eos % (Auto) 2.0, Baso % (Auto) 0.8, Absolute Neuts (auto) 2.7, Absolute Lymphs (auto) 0.72 L, Nucleated RBC % 0, Sodium 134 L, Potassium 4.5, Chloride 94 L, Carbon Dioxide 27.8, Anion Gap 12, BUN 49 H, Creatinine 3.13 H, Estim Creat Clear Calc 12.44 L, Est GFR (MDRD) Non-Af 19 L, BUN/Creatinine Ratio 15.6, Glucose 469 H*, Calcium 8.0 04/08/25 06:08: POC Glucose 394 H Micro: Microbiology 04/07/25 11:20 Mucosa - Nasopharyngeal SARS-CoV-2, Influenza & RSV (PCR) - Final Radiography Diagnostic Testing: Radiology Impression Chest X-Ray 04/07/25 10:47 IMPRESSION: Chest x-ray findings compatible with pulmonary edema due to CHF and/or pneumonic infiltrates. Stable moderate to large sized left pleural effusion. Reading Location: [facility] Physical Exam Const alert, oriented x3 and no apparent distress; Negative for average body habitus, healthy appearing or well nourished Constitutional Narrative: Take Actiq, frail-appearing, white male, sitting up in bed reclined, appears comfortable, nontoxic, at bedside HEENT head/scalp atraumatic and moist oral mucous membranes HEENT Narrative: Dentures in place, Mallampati 1, temporal wasting bilaterally, no thrush Head and Scalp: normocephalic Resp normal respiratory effort, no retractions, no use of accessory muscles and clear to auscultation bilaterally Resp Narrative: Diminished diffusely but clear Auscultation: Negative for crackles, rhonchi or wheezes Cardio regular rate, regular rhythm, S1 normal heart sound, S2 normal heart sound, no murmurs, no rub, no gallops and no clicks GI normal to inspection, nondistended, normoactive bowel sounds, soft to palpation and non-tender GI Narrative: Scaphoid abdomen Extremity no clubbing, cyanosis or edema Extremity Narrative: Decreased lean muscle mass, radial and pedal pulses are 2+ Neuro moves all extremities and no focal motor deficits Speech: speech normal Psych affect normal Psych Narrative: Very pleasant, interacts appropriately Assessment & Plan Assessment/Plan (1) Generalized weakness: (2) Dyspnea on exertion: (3) Poorly controlled blood pressure: (4) Aortic valve stenosis, moderate: (5) Acute on chronic heart failure with reduced ejection fraction (HFrEF, <= 40%): (6) Pleural effusion: PLAN: Plan Dyspnea on exertion secondary to acute on chronic heart failure with reduced ejection fraction - Chest x-ray is consistent with pulmonary edema and patient has a moderate to large left-sided pleural effusion - Patient does make urine but is dialysis dependent at baseline - Plan for dialysis today - Will need ambulatory pulse ox prior to discharge Large left-sided pleural effusion - Will likely need thoracentesis - Check chest x-ray in a.m. after dialysis to look at resolution but suspect this will not be dialyzed off -Will order thoracentesis for Thursday if not dialyzed off - If chest x-ray still shows fairly sizable left-sided pleural effusion we will plan for thoracentesis on Thursday DM-2 - Patient appears to be labile diabetic - Blood sugar 469 this morning - Has been on 12 units of basal insulin - Will increase to 10 twice daily and monitor very closely - Continue SSI as ordered - Overall not well-controlled with an A1c of 8.8 - Does follow with endocrinology at baseline and may need to touch base with them if sugars remain difficult to manage End-stage renal disease-HD dependent - Nephrology following - HD per nephrology - Patient does make some urine Ischemic cardiomyopathy/essential hypertension/hyperlipidemia/aortic valve stenosis - Add low-dose hydralazine 10 mg 3 times daily due to markedly elevated blood pressures - Continue home regimen of Lasix, isosorbide mononitrate, and metoprolol - Continue home aspirin - Continue home atorvastatin - Ongoing outpatient cardiology follow-up BPH with obstruction - Currently urinating well - Continue alpha-francesco - Continue Proscar Chronic anemia secondary to renal disease - continue home iron supplementation Nonproliferative diabetic retinopathy - Ongoing outpatient follow-up Carotid artery stenosis - Continue aspirin - Continue atorvastatin GERD - Continue PPI Severe malnutrition - Continue supplements - dietitian consult History of tobacco abuse - Still smoking some - recommend cessation - complicates treatment, prognosis, outcomes DVT prophylaxis - Heparin every 8 CODE STATUS - Full code Charges/Coding Visit Charges Inpatient E&M: 37137 Subs Hosp L2
[2025-04-08] MEDS: Metoprolol(XL)Succ 50 MG Tablet PO (09:04)
[2025-04-08] MEDS: Calcium Carb/Vitamin D 1 TABLET Tablet PO (09:04)
[2025-04-08] MEDS: Cholecalciferol (Vit D3) 125 MCG CAPSULE (5,000 UNITS) PO (09:04)
[2025-04-08] MEDS: Aspirin E.C. 81 MG Tablet PO (09:04)
[2025-04-08] MEDS: Folic Acid/Vitamin B Comp W-C 1 Capsule 1 CAP PO (09:05)
[2025-04-08] MEDS: Magnesium Chloride 64 MG Delay Rel.Tablet PO (09:05)
[2025-04-08] MEDS: 0.9% Saline Lock 10 ML Syringe IV (09:10)
[2025-04-08] MEDS: Insulin Glargine-YFGN 100 UNIT/ML Pen 10 UNIT SC ×2 (09:13→21:09)
--- NOTE | 2025-04-08 11:26 | CASEMGMT ---
NADEEM VINCENT Assessment: Face to Face with pt for initial transition planning/care coordination assessment. NADEEM VINCENT introduced self and role at [facility], pt voices understanding and consents to assessment. Pt is A&O x4 and answers all questions appropriately at this time. Pt came in during assessment, Pt agreeable to present during assessment. Care providers, pharmacy, and demographics verified/updated. Strata: 3 Admitting Dx: Hypertensive emergency, fluid overload. 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 ADLs: Pt reports I at baseline with ADLs and IADLs. Transportation: Pt drives self and denies concerns with transportation. DME: walker, cane, shower bench, glucometer and supplies. Pt receives dialysis T/TH/S at [facility]. Pt does not use O2 at baseline. NADEEM VINCENT discussed possible need for O2 at [place]. Provided list of DME providers, Pt chose [facility] as provider of choice. HHC/SNF: Previously at [facility], Pt was there about 6 months ago for 2 weeks. 6 clicks = 23. Pt states no concerns with going home at time of dc. Pt states no further concerns/needs. CM to follow. Advised pt to ask CM if any further question/concerns/needs arise, voices understanding. Pt Goal: Home Plan: Home, follow for O2 needs. Dalia SILVER CM
[2025-04-08] MEDS: 0.9% Normal Saline 1,000 ML IV.SOLN. 1000 ML OPERA.SITE (12:51)
[2025-04-08] MEDS: PureFlow B 2K Dialysis Soln 1 BAG 6 BAG PF (12:51)
--- NOTE | 2025-04-08 16:40 | RAD_ITS ---
PROCEDURE: CHEST 1 VIEW (PORTABLE) 04/08/2025 REASON FOR EXAM: L EFFUSION TECHNIQUE: Frontal view of the chest. COMPARISON: 04/07/25 FINDINGS: Stable severe left pleural effusion. Lung markings are grossly unchanged Cardiac silhouette is within normal limits. No acute fractures. RAD/Chest 1 View (Portable) IMPRESSION: Stable severe left pleural effusion. Lung markings are grossly unchanged Reading Location: [facility]
[2025-04-09] VITALS (9 sets, daily range): BP systolic 113–146; BP diastolic 56–75; PULSE 66–70; RESP 16–18; TEMP 35.9–37.2; O2SAT 95–100
[2025-04-09 05:43] LABS: Hematocrit 33.7 % (40-54); Hemoglobin 10.8 g/dL (13.0-16.5); Mean Corp Hgb Conc 32.0 g/dL (32-36); Mean Corpuscular Volume 96.6 fL (80-94); Mean Platelet Vol. 11.1 fl (6.2-12.0); Platelet Count 259 K/mm3 (150-450); RBC Distribution Width CV 13.2 % (11.6-14.6); RBC Distribution Width SD 47.0 fl (35.1-43.9); Red Blood Count 3.49 M/mm3 (4.6-6.2); White Blood Count 4.8 K/mm3 (4.4-11.0)
[2025-04-09] MEDS: Heparin Injection (Vial) 5,000 UNIT/ML VIAL 5000 UNIT SC ×3 (06:34→21:05)
[2025-04-09 06:57] LABS: Anion Gap 11 (7-18); BUN 40 mg/dL (4-19); BUN/Creat Ratio 14.0 RATIO (10-20); Calcium,Total 8.4 mg/dL (7.6-11.0); Carbon Dioxide 29.0 mmol/L (20.0-29.0); Chloride 102 mmol/L (96-106); Estimated Creatinine Clearance 13.65 ml/min (50-250); Potassium 3.5 mmol/L (3.5-5.1)
[2025-04-09 07:01] LABS: Glucose 40 mg/dL (70-99)
--- NOTE | 2025-04-09 07:46 | PCM.CONS.R ---
Assessment & Plan Assessment/Plan (1) End stage renal disease on dialysis: (2) Essential hypertension: (3) Pleural effusion: (4) Acute on chronic heart failure with reduced ejection fraction (HFrEF, <= 40%): PLAN: Plan Assessment/Plan: Patient is a 79-year-old male with past history of ESRD, type 2 diabetes mellitus, hypertension, CAD, ischemic cardiomyopathy with HFrEF, aortic valve stenosis, hyperlipidemia, prostate cancer and PMR. Patient presented to hospital on 04/07/2025 with 4-day history of progressive dyspnea prior to admission. Patient received dialysis on 04/05/2025, 2 days prior to presentation. Patient is admitted to hospital for treatment of acute hypoxic and hypercapnic respiratory failure. He is also found to have large left pleural effusion. Nephrology is asked to see the patient because of ESRD and to arrange for dialysis. ESRD. Patient usually dialyzes on a TTS schedule at [facility]. He is followed at [facility] Center by my partner, Dr. Townsend. Patient was dialyzed on 04/07/2025 for volume overload. He was dialyzed again on 04/08/2025 to keep him on outpatient schedule. Patient is improved symptomatically and is less dyspneic. However, per my discussion with Dr. Teran, patient would likely benefit from thoracentesis to remove pleural effusion which is difficult to remove with dialysis/ultrafiltration. There is no need for dialysis today. Next hemodialysis is anticipated for tomorrow on 04/10/2025 because of the holiday schedule. His dialysis unit dialyzes TTS patient on Thursday, Thursday and Thursday next week due to holiday. It may be a good idea to keep patient on the schedule in case he is discharged prior to the end of the week. Nephrology plan is discussed with Dr. Reinier Teran. HPI Consult Data Date of Consult: 04/09/25 HPI Narrative Reason for Consultation: ESRD HPI Narrative: Patient is a 79-year-old male with past history of ESRD, type 2 diabetes mellitus, hypertension, CAD, ischemic cardiomyopathy with HFrEF, aortic valve stenosis, hyperlipidemia, prostate cancer and PMR. Patient presented to hospital on 04/07/2025 with 4-day history of progressive dyspnea prior to admission. Patient received dialysis on 04/05/2025, 2 days prior to presentation. Patient is admitted to hospital for treatment of acute hypoxic and hypercapnic respiratory failure. He is also found to have large left pleural effusion. Nephrology is asked to see the patient because of ESRD and to arrange for dialysis. Patient was dialyzed on 04/07/2025 and on 04/08/2025 for volume removal. Patient feels better since admission. He is less dyspneic. Patient denies chest pain, nausea or vomiting. FORMERLY [facility], 1928–1983 Medical History (Updated 04/09/25 @ 08:[address] Cyndee Teran, ) End stage renal disease on dialysis Unexplained weight loss Type 1 diabetes mellitus with hyperglycemia COPD (chronic obstructive pulmonary disease) Insomnia Anorexia Fracture of femoral neck, right, open Carotid stenosis Anxiety and depression Carotid artery disease Lipohypertrophy due to insulin injection Dyslipidemia Carotid bruit Coronary artery disease Chronic neck pain Debility Cancer Open wound Polymyalgia arteritica Low iron Leg cramps History of edema Cardiology follow-up encounter Prostate cancer Dependent on hemodialysis NPDR (nonproliferative diabetic retinopathy) Nonrheumatic aortic (valve) stenosis History of non-ST elevation myocardial infarction (NSTEMI) End stage renal disease Leukocytosis Edema of left upper arm HFrEF (heart failure with reduced ejection fraction) Acquired neutrophilia Aortic valve stenosis 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 1 diabetes mellitus Chronic neck and back pain Skin mole Fatigue Watery eyes CKD (chronic kidney disease) stage 4, GFR 15-29 ml/min Aortic root dilatation Olecranon bursitis, left elbow Mediastinal mass Olecranon bursitis, right elbow Unintentional weight loss of more than 10 pounds Swelling of right elbow Heart murmur Contact with or suspected exposure to other viral communicable disease Acute bronchitis Insulin dependent diabetes mellitus CKD (chronic kidney disease), stage IV Osteopenia Wears hearing aid Wears glasses Wears dentures Alcohol use Insulin dependent diabetes mellitus Arthritis High cholesterol Back pain Dietary restriction Former smoker Shortness of breath on exertion History of pain when walking History of stress test History of echocardiogram Nicotine dependence, cigarettes, uncomplicated Episode of syncope Mass of lung REYES (dyspnea on exertion) Wears hearing aid in both ears Hearing loss, left Hearing loss, right Kidney stones Smoker Hypertension Chronic kidney insufficiency Diabetic retinopathy associated with type 1 diabetes mellitus Benign essential hypertension Stage 3 chronic kidney disease due to type 1 diabetes mellitus Diabetic polyneuropathy associated with type 1 diabetes mellitus Essential hypertension Mixed hyperlipidemia Vision problem Prostate disease Osteoarthritis Hearing problem COPD (chronic obstructive pulmonary disease) Cataracts, bilateral Bone fracture Back problem Anemia Bronchitis Family history of hyperlipidemia Family history of hypertension Headache Dyspnea on exertion Hyperlipidemia Nicotine abuse Atherosclerotic heart disease of [place] coronary artery without angina pectoris long-term use of drug Sleep apnea Hypertension Home Medications ?Medication ?Instructions ?Recorded ?Last Taken ?Type aspirin 81 mg tablet,delayed 81 mg PO QDAY heart health 06/15/17 04/07/25 History release (Adult Low Dose Aspirin) finasteride 5 mg tablet (Proscar) 5 mg PO DAILY prostate 06/16/17 04/07/25 History flash glucose scanning reader #2 ea 03/28/22 Unknown Rx (FreeStyle Tani 2 [place]) flash glucose sensor (FreeStyle #2 ea 03/28/22 Unknown Rx Tani 2 Sensor kit) cholecalciferol (vitamin D3) 125 125 mcg PO DAILY vitamin 05/05/22 04/06/25 History mcg (5,000 unit) capsule acetaminophen 325 mg tablet 650 mg (2 x 325 mg) PO Q4H PRN PRN 12/12/22 Unknown Rx Fever, pain -01/20 #0 tabs insulin lispro 100 unit/mL See Protocol subcut ACHS diabetes 01/14/23 04/07/25 History subcutaneous pen (Humalog KwikPen (U-100) Insulin) calcium 600 mg (as 1 cap PO DAILY vitamin 01/23/23 04/07/25 History carbonate)-vitamin D3 10 mcg (400 unit) capsule magnesium 250 mg tablet 250 mg PO QDAY supplement 01/29/24 04/07/25 History pantoprazole 40 mg tablet,delayed 40 mg PO BID reflux 01/29/24 04/07/25 History release renal multivitamin 1 tab PO DAILY vitamin 01/29/24 Unknown History tamsulosin 0.4 mg capsule 0.4 mg PO QDAY prostate 01/29/24 04/07/25 History atorvastatin 40 mg tablet 40 mg PO QHS cholesterol 02/24/24 04/06/25 History ferrous sulfate 325 mg (65 mg 325 mg PO DAILY supplement #30 tabs 02/28/24 04/07/25 Rx iron) tablet (Iron (ferrous sulfate)) B1 2 mg-B6 4 mg-folate 800 mcg cap PO vitamin 12/28/24 04/07/25 History [id number]-[id number]. gasseri-herb capsule docusate sodium 100 mg capsule 100 mg PO QDAY stool softner 12/28/24 04/06/25 History (Colace) duloxetine 30 mg capsule,delayed 30 mg PO QDAY mental health 12/28/24 04/07/25 History release insulin glargine 100 unit/mL (3 10 unit subcut QPM DM 02/08/25 04/06/25 History mL) subcutaneous pen (Lantus Solostar U-100 Insulin) furosemide 40 mg tablet 80 mg PO DAILY weight gain 02/17/25 04/07/25 History empagliflozin 10 mg tablet 10 mg PO DAILY #90 tabs 03/29/25 Unknown Rx (Jardiance) isosorbide mononitrate 30 mg 30 mg PO DAILY #30 tabs 03/29/25 Unknown Rx tablet,extended release 24 hr metoprolol succinate 50 mg 50 mg PO DAILY #90 tabs 03/29/25 04/07/25 Rx tablet,extended release 24 hr Allergy/AdvReac Type Severity Reaction Status Date / Time levofloxacin (From LevVideoAvatars) Allergy Hives Verified 04/07/25 09:53 vancomycin AdvReac Severe Rash Verified 04/07/25 09:53 Family History Father Diabetes Hypertension Family history of hyperlipidemia Asthma Kidney disease Mother Diabetes Brother Cancer Throat cancer Brother CAD (coronary artery disease) Myocardial infarction, Onset Age: 52 Sister Family history of hyperlipidemia Hypertension Diabetes Unknown Alcoholism Arthritis Depression Diabetes Hypertension Hyperlipidemia Osteoporosis Respiratory disease Pancreatic cancer Other Family history of hypertension Surgical History History of hip surgery S/P arteriovenous (AV) fistula creation Fracture of left patella Wrist fracture, bilateral Fracture of left upper extremity History of colonoscopy (~2013) History of bilateral inguinal hernia repair (~2007) History of hernia repair (~1991) History of hemorrhoidectomy (~2000) stent replacement for right sided kidney stome Social History household members: spouse Smoking Status: Light Smoker (<10/day) Tobacco: How many years used: 50 alcohol intake: never substance use type: does not use caffeine: Yes Type: coffee Number of servings: 2 what type of physical activity do you participate in: none seatbelt use: sometimes do you feel safe at home: Yes ROS ROS Narrative As per HPI, otherwise noncontributory Physical Exam Narrative General: Alert and oriented x3, NAD. HEENT: Normocephalic, atraumatic. Mucous membrane moist without erythema. PERRLA, EOMI. Hearing is intact. Neck: Supple, no JVD. Trachea is midline. No thyromegaly or lymphadenopathy. Cardiovascular: Normal S1, S2. No rubs, murmurs, or gallops. Respiratory: Decreased breath sound at bases. Abdomen: Normal bowel sounds, soft, nontender, no guarding or rebound, no organomegaly. Extremities: No clubbing, cyanosis, or edema. Musculoskeletal: Full passive range of motion, no joint swelling. Psychiatric: Normal mood and affect. Skin: Warm and dry, no rash. Neurologic: Cranial nerve II to XII are grossly intact. No focal neurologic deficits. Lab / Micro Data 04/09/25 04:30 04/09/25 04:30 Labs: Laboratory Results - last 24 hr 04/08/25 05:36: Hemoglobin A1c 8.8 H 04/08/25 07:33: POC Glucose 367 H 04/08/25 12:07: POC Glucose 136 H 04/08/25 16:29: POC Glucose 84 04/08/25 21:05: POC Glucose 217 H 04/09/25 04:30: WBC 4.8, RBC 3.49 L, Hgb 10.8 L, Hct 33.7 L, MCV 96.6 H, MCH 30.9, MCHC 32.0, RDW Std Deviation 47.0 H, RDW Coeff of Russell 13.2, Plt Count 259, MPV 11.1, Sodium 142, Potassium 3.5, Chloride 102, Carbon Dioxide 29.0, Anion Gap 11, BUN 40 H, Creatinine 2.84 H, Estim Creat Clear Calc 13.65 L, Est GFR (MDRD) Non-Af 22 L, BUN/Creatinine Ratio 14.0, Glucose 40 L*, Calcium 8.4 04/09/25 06:21: POC Glucose 42 L* Imaging Radiology Impression Chest X-Ray 04/08/25 16:40 IMPRESSION: Stable severe left pleural effusion. Lung markings are grossly unchanged Reading Location: [facility]
--- NOTE | 2025-04-09 08:19 | PN.HOSP_ITS ---
Reason for Visit Chief Complaint: shortness of breath Subjective Subjective Patient states he is feeling okay. States he did have an episode of hypoglycemia this morning which he did his blood sugar dropped to 40. He has been a diabetic for about 20 years his does confirm he is quite brittle. We did readjust his insulin and discussed that with him. I did inform him that his pleural effusion on the left has been persistent so I do feel he would benefit from thoracentesis to help with shortness of breath. We discussed the procedure and he and his are amenable to proceeding. Objective Data Objective Data Vital Signs: Vital Signs Temp Pulse Resp BP Pulse Ox O2 Del Method O2 Flow Rate 98.4 F 70 18 146/75 H 97 Room Air 2 04/09/25 03:27 04/09/25 06:28 04/09/25 03:27 04/09/25 03:27 04/09/25 03:27 04/09/25 03:27 04/07/25 15:00 FiO2 2 04/07/25 10:54 Oxygen Flow Rate (L/min) 2 Oxygen Delivery Method Room Air Weight: 47.3 kg Body Mass Index (BMI) 16.3 Intake & Output: Intake and Output for Last 24 Hours 04/07/25 04/08/25 04/09/25 23:59 23:59 23:59 Intake Total 500 / 500 960 / 1200 240 / 240 Output Total 4200 / 4200 2230 / 2230 Balance -3700 / -3700 -1270 / -1030 240 / 240 Lab / Micro Data 04/09/25 04:30 04/09/25 04:30 Labs: Laboratory Results - last 24 hr 04/08/25 05:36: Hemoglobin A1c 8.8 H 04/08/25 12:07: POC Glucose 136 H 04/08/25 16:29: POC Glucose 84 04/08/25 21:05: POC Glucose 217 H 04/09/25 04:30: WBC 4.8, RBC 3.49 L, Hgb 10.8 L, Hct 33.7 L, MCV 96.6 H, MCH 30.9, MCHC 32.0, RDW Std Deviation 47.0 H, RDW Coeff of [place] 13.2, Plt Count 259, MPV 11.1, Sodium 142, Potassium 3.5, Chloride 102, Carbon Dioxide 29.0, Anion Gap 11, BUN 40 H, Creatinine 2.84 H, Estim Creat Clear Calc 13.65 L, Est GFR (MDRD) Non-Af 22 L, BUN/Creatinine Ratio 14.0, Glucose 40 L*, Calcium 8.4 04/09/25 06:21: POC Glucose 42 L* Micro: Microbiology 04/07/25 11:20 Mucosa - Nasopharyngeal SARS-CoV-2, Influenza & RSV (PCR) - Final Radiography Diagnostic Testing: Radiology Impression Chest X-Ray 04/08/25 16:40 IMPRESSION: Stable severe left pleural effusion. Lung markings are grossly unchanged Reading Location: [facility] Physical Exam Const alert, oriented x3 and no apparent distress; Negative for average body habitus, healthy appearing or well nourished Constitutional Narrative: Elderly, white male,, frail-appearing, sitting up in bed eating breakfast, appears comfortable, nontoxic, at bedside General Appearance: cooperative HEENT normocephalic, head/scalp atraumatic and moist oral mucous membranes HEENT Narrative: Dentures in place Resp normal respiratory effort, no retractions, no use of accessory muscles and clear to auscultation bilaterally Resp Narrative: Diminished diffusely with very diminished left lower lobe, no adventitious sounds Auscultation: Negative for crackles, rhonchi or wheezes Cardio regular rate, regular rhythm, S1 normal heart sound, S2 normal heart sound, no murmurs, no rub, no gallops and no clicks GI normal to inspection, nondistended, normoactive bowel sounds, soft to palpation and non-tender GI Narrative: Scaphoid abdomen Extremity no clubbing, cyanosis or edema Extremity Narrative: Decreased lean muscle mass, radial and pedal pulses are 2+ Neuro moves all extremities and no focal motor deficits Speech: speech normal Psych affect normal Psych Narrative: Very pleasant, interacts appropriately Assessment & Plan Assessment/Plan (1) Hypoglycemia: PLAN: Plan Dyspnea on exertion secondary to acute on chronic heart failure with reduced ejection fraction/large left pleural effusion - Shortness of breath is improved but patient has persistent left pleural effusion and I suspect this is contributing to his shortness of breath with exertion based on its size - Plan for thoracentesis tomorrow - Continue dialysis per nephrology - Will need ambulatory pulse ox prior to discharge Large left-sided pleural effusion - Chest x-ray shows persistent left-sided pleural effusion that is fairly sizable - Discussed thoracentesis with patient and and they are amenable to proceeding tomorrow - Thoracentesis ordered with fluid studies - Serum LDH and albumin ordered for a.m. Hypoglycemia - Patient with significantly brittle diabetes with wide swings in his glycemic control. - Will back off on his insulin regimen. - Would allow him to run a bit higher than take the risk of dropping him low again - Clinically stable at this time DM-1--> brittle - Patient appears to be labile diabetic - Blood sugar this morning - Transition back to 10 units of basal insulin due to hypoglycemia this morning -Uptitrate very slowly as patient is clearly very sensitive - Continue SSI as ordered - Overall not well-controlled with an A1c of 8.8 - Does follow with endocrinology at baseline and may need to touch base with them if sugars remain difficult to manage End-stage renal disease-HD dependent - Nephrology following - HD per nephrology - Patient does make some urine Ischemic cardiomyopathy/essential hypertension/hyperlipidemia/aortic valve stenosis - Continue low-dose hydralazine 10 mg 3 times daily -Blood pressure control is much better since the addition of this - Continue home regimen of Lasix, isosorbide mononitrate, and metoprolol - Continue home aspirin - Continue home atorvastatin - Ongoing outpatient cardiology follow-up BPH with obstruction - Currently urinating well - Continue alpha-francesco - Continue Proscar Chronic anemia secondary to renal disease - continue home iron supplementation Nonproliferative diabetic retinopathy - Ongoing outpatient follow-up Carotid artery stenosis - Continue aspirin - Continue atorvastatin GERD - Continue PPI Severe malnutrition - Continue supplements - dietitian consult History of tobacco abuse - Still smoking some - recommend cessation - complicates treatment, prognosis, outcomes DVT prophylaxis - Heparin every 8 CODE STATUS - Full code Charges/Coding Visit Charges Inpatient E&M: 39992 Subs Hosp L3
[2025-04-09 09:10] LABS: LDH 241 U/L (87-241)
[2025-04-09] MEDS: Metoprolol(XL)Succ 50 MG Tablet PO (10:00)
[2025-04-09] MEDS: Calcium Carb/Vitamin D 1 TABLET Tablet PO (10:00)
[2025-04-09] MEDS: Cholecalciferol (Vit D3) 125 MCG CAPSULE (5,000 UNITS) PO (10:00)
[2025-04-09] MEDS: Magnesium Chloride 64 MG Delay Rel.Tablet PO (10:00)
[2025-04-09] MEDS: Folic Acid/Vitamin B Comp W-C 1 Capsule 1 CAP PO (10:00)
[2025-04-09] MEDS: Ensure Plus High Protein 120 ML LIQUID PO (10:00)
[2025-04-09] MEDS: Aspirin E.C. 81 MG Tablet PO (10:00)
[2025-04-09] MEDS: Insulin Glargine-YFGN 100 UNIT/ML Pen 10 UNIT SC (21:06)
[2025-04-10] VITALS (19 sets, daily range): BP systolic 131–208; BP diastolic 64–99; PULSE 61–87; RESP 13–18; TEMP 36.7–38; O2SAT 91–100; BMI 16.3; BMI 15.5
[2025-04-10 04:37] LABS: Hematocrit 30.5 % (40-54); Hemoglobin 10.2 g/dL (13.0-16.5); Mean Corp Hgb Conc 33.4 g/dL (32-36); Mean Corpuscular Volume 95.9 fL (80-94); Mean Platelet Vol. 10.6 fl (6.2-12.0); Platelet Count 237 K/mm3 (150-450); RBC Distribution Width CV 13.2 % (11.6-14.6); RBC Distribution Width SD 46.7 fl (35.1-43.9); Red Blood Count 3.18 M/mm3 (4.6-6.2); White Blood Count 5.7 K/mm3 (4.4-11.0)
[2025-04-10 04:51] LABS: AST(SGOT) 54 U/L (<=37); Alanine Aminotransfer ALT/SGPT 69 U/L (<=46); Albumin, Serum 3.3 g/dL (3.4-4.8); Alkaline Phosphatase 183 U/L (40-129); Anion Gap 10 (7-18); BUN 52 mg/dL (4-19); BUN/Creat Ratio 14.2 RATIO (10-20); Calcium,Total 8.7 mg/dL (7.6-11.0); Carbon Dioxide 29.0 mmol/L (20.0-29.0); Chloride 95 mmol/L (96-106); Estimated Creatinine Clearance 10.59 ml/min (50-250); Globulin 2.5 g/dL (2.2-4.2); Glucose 247 mg/dL (70-99); LDH 205 U/L (87-241); Potassium 4.6 mmol/L (3.5-5.1)
--- NOTE | 2025-04-10 06:00 | US_ITS ---
PROCEDURE: THORACENTESIS W US 04/10/2025 REASON FOR EXAM: L EFFUSION TECHNIQUE: Diagnostic and therapeutic left THORACENTESIS W US COMPARISON: Chest x-ray of 04/08/2025. FINDINGS: Procedure: Following informed consent, an using standard sterile technique, a diagnostic and therapeutic left thoracentesis was performed with ultrasound guidance. 2% lidocaine local anesthesia was followed by placement of a 5 [place] Yueh catheter into the left pleural fluid collection. Aspiration was terminated due to patient chest discomfort desire to lie down. Approximately 750 mL mildly cloudy nahun fluid was successfully removed, a portion sent to the laboratory for evaluation.. The patient was returned to the inpatient amato at this time. US/Thoracentesis W US IMPRESSION: Successful diagnostic and therapeutic left thoracentesis. Laboratory results p ending. Reading Location: [place] [address]
[2025-04-10] MEDS: PureFlow B 2K Dialysis Soln 1 BAG 6 BAG PF (08:30)
[2025-04-10] MEDS: 0.9% Normal Saline 1,000 ML IV.SOLN. 1000 ML OPERA.SITE (08:30)
--- NOTE | 2025-04-10 11:03 | NUR.TO.PHY ---
Dialysis Coordinator discussed case with attending cook frozen dessert, Gudelia MANZANO. Concern for pt in outpatient setting is that fluid removal limited by CMS standards to @1.8L fluid removal per tx in outpatient setting (CMS standard is 13ml/kg/hr.) Pt will have an adjusted edw post HD & thorocentesis today. Coordinator will notify Gudelia & outpatient clinic of new edw. Pt tx time will be increased in outpatient clinic to help prevent recurrence of hospital admission for fluid overload.
--- NOTE | 2025-04-10 11:05 | PCM.PN.REN ---
Subjective Subjective Seen during dialysis. Tolerating treatment well. at bedside. No complaints. States breathing is better. Objective Data Objective Data Vital Signs: Vital Signs Temp Pulse Resp BP Pulse Ox O2 Del Method O2 Flow Rate 99.0 F 73 13 184/85 H 100 Room Air 2 04/10/25 03:23 04/10/25 11:00 04/10/25 11:00 04/10/25 11:00 04/10/25 08:00 04/10/25 11:00 04/07/25 15:00 FiO2 2 04/07/25 10:54 Oxygen Flow Rate (L/min) 2 Oxygen Delivery Method Room Air Weight: 47.3 kg Body Mass Index (BMI) 16.3 Intake & Output: Intake and Output for Last 24 Hours 04/08/25 04/09/25 04/10/25 23:59 23:59 23:59 Intake Total 960 / 1200 1020 / 1500 720 / 720 Output Total 2230 / 2230 Balance -1270 / -1030 1020 / 1500 720 / 720 Lab / Micro Data 04/10/25 04:13 04/10/25 04:13 Labs: Laboratory Results - last 24 hr 04/09/25 12:11: POC Glucose 232 H 04/09/25 17:08: POC Glucose 278 H 04/09/25 21:03: POC Glucose 244 H 04/10/25 04:13: WBC 5.7, RBC 3.18 L, Hgb 10.2 L, Hct 30.5 L, MCV 95.9 H, MCH 32.1 H, MCHC 33.4, RDW Std Deviation 46.7 H, RDW Coeff of [place] 13.2, Plt Count 237, MPV 10.6, Sodium 135, Potassium 4.6, Chloride 95 L, Carbon Dioxide 29.0, Anion Gap 10, BUN 52 H, Creatinine 3.66 H, Estim Creat Clear Calc 10.59 L, Est GFR (MDRD) Non-Af 16 L, BUN/Creatinine Ratio 14.2, Glucose 247 H, Calcium 8.7, Total Bilirubin 0.20, AST 54 H, ALT 69 H, Alkaline Phosphatase 183 H, Lactate Dehydrogenase 205, Total Protein 5.9, Albumin 3.3 L, Globulin 2.5, Albumin/Globulin Ratio 1.3 04/10/25 06:15: POC Glucose 284 H Micro: Microbiology 04/07/25 18:03 Urine, Clean Catch Urine Culture - Final Presumptive E. coli 04/07/25 11:20 Blood Culture (Wb) - Right Forearm Blood Culture - Preliminary No growth in 48 hours. 04/07/25 11:20 Blood Culture (Wb) - Right Wrist Blood Culture - Preliminary No growth in 48 hours. 04/07/25 11:20 Mucosa - Nasopharyngeal SARS-CoV-2, Influenza & RSV (PCR) - Final Physical Exam Narrative A&Ox3 S1 S2 RRR Decreased breath sound at bases. On room air abdomen soft, non tender no edema left upper arm AVF accessed for dialysis Assessment & Plan Assessment/Plan (1) End stage renal disease on dialysis: (2) Essential hypertension: (3) Pleural effusion: (4) Acute on chronic heart failure with reduced ejection fraction (HFrEF, <= 40%): PLAN: Plan Assessment/Plan: Patient is a 79-year-old male with past history of ESRD, type 2 diabetes mellitus, hypertension, CAD, ischemic cardiomyopathy with HFrEF, aortic valve stenosis, hyperlipidemia, prostate cancer and PMR. Patient presented to hospital on 04/07/2025 with 4-day history of progressive dyspnea prior to admission. Patient received dialysis on 04/05/2025, 2 days prior to presentation. Patient is admitted to hospital for treatment of acute hypoxic and hypercapnic respiratory failure. He is also found to have large left pleural effusion. Nephrology is asked to see the patient because of ESRD and to arrange for dialysis. 04/10/2025: ESRD on dialysis three times weekly over 3 hour treatment. Patient dialyzing today and attempting ~2.5L fluid removal. Since hospital admission patient has tolerated ~6.2L fluid removal with dialysis. He is scheduled for thoracentesis today. Likely will have a new lowered EDW ~45kg. Discussed with patient and today that given patient's fluid gains between dialysis sessions and amount of fluid that can be removed over a 3 hr HD session that he likely needs longer dialysis to allow for easier fluid removal over longer time frame. They are in agreement to longer dialysis at kidney center. Will update kidney center. Discussed nephrology plan with Dr. Owusu. Patient can be discharged from nephrology standpoint when cleared by primary team. Next dialysis at dialysis clinic will be Thursday this week due to holiday schedule.
--- NOTE | 2025-04-10 11:42 | CASEMGMT ---
Reviewed therapy notes, recommending Pt gets OP Therapy. Obtained script, NADEEM VINCENT into pt room. Pt sitting up in bed, receiving HD. Pt and family members in room. Pt agreeable to discussing DC planning with family present. Provided Pt with OP PT script. Pt states he is not sure if he is interested in getting PT. Gave him script anyway and instructed Pt to call OP PT provider after DC if he changes his mind. Pt denies questions or concerns at this time.
[2025-04-10] MEDS: Aspirin E.C. 81 MG Tablet PO (12:07)
[2025-04-10] MEDS: Magnesium Chloride 64 MG Delay Rel.Tablet PO (12:09)
[2025-04-10] MEDS: Calcium Carb/Vitamin D 1 TABLET Tablet PO (12:10)
[2025-04-10] MEDS: Folic Acid/Vitamin B Comp W-C 1 Capsule 1 CAP PO (12:10)
[2025-04-10] MEDS: Cholecalciferol (Vit D3) 125 MCG CAPSULE (5,000 UNITS) PO (12:11)
[2025-04-10] MEDS: Metoprolol(XL)Succ 50 MG Tablet PO (12:11)
--- NOTE | 2025-04-10 13:23 | PCM.CONS.C ---
Assessment & Plan Assessment/Plan (1) Acute on chronic heart failure with reduced ejection fraction (HFrEF, <= 40%): PLAN: - AHA stage C, NYHA III, current admission with decompensation -Etiology of acute decompensation likely in the setting of inadequate volume removal with dialysis and severe hypertension, superimposed on the low - Etiology of underlying cardiomyopathy unclear: Possibly multifactorial in the setting of severely uncontrolled hypertension and possible ischemic cardiomyopathy. Is also possible that patient's cardiomyopathy is secondary to advancing aortic stenosis, or a combination of these factors - Patient currently compensated, hemodynamically stable, and able to lie flat. He is warm and has no signs of peripheral volume overload. (2) Poorly controlled blood pressure: PLAN: - systolic blood pressure 200 on arrival; last documented blood pressure 189/74 (3) Aortic valve stenosis: QUALIFIERS: Cardiac valve disease etiology: nonrheumatic Qualified Code(s): I35.0 - Nonrheumatic aortic (valve) stenosis PLAN: - Concern for low-flow low gradient severe noted on 03/15/2025 echocardiogram; will need additional testing to determine if is truly severe versus pseudosevere (4) Chronic kidney disease on chronic dialysis: PLAN: - Currently followed by nephrology, augmenting dialysis and adjusting schedule PLAN: Plan PLAN: - Patient is very frail with significant comorbidities and has poor exertional capacity, only able to ambulate room to room; agree with outpatient follow-up on 04/17/[address] Perfecto Storey and Hamzah Olvera to determine course for additional workup for cardiomyopathy, which would include referral to valve center to determine candidacy for intervention versus palliative/ hospice, if within goals of care and if intervention is indicated. Stressed patient and to have goals of care discussions in the interim, as patient has a very guarded prognosis, which they plan to revisit at upcoming outpatient appointment. -Please involve Dr. Perfecto Storey at this outpatient appointment - Continue GDMT and control of hypertension as tolerated and indicated per primary and nephrology teams - No other cardiac interventions planned at this time HPI Consult Data Date of Consult: 04/10/25 HPI Narrative Reason for Consultation: Heart failure reduced ejection fraction HPI Narrative: DEX VALLE, is a 79 M with a past medical history of type 1 diabetes, COPD, anxiety, depression, chronic kidney disease on dialysis Thursday, aortic valve stenosis, and recently discovered heart failure with reduced ejection fraction, EF: 20% in 03/2025. Notably, patient is followed with [facility] this month for GDMT titration, hypertension control, and workup of newly discovered reduced ejection fraction. Patient is planned for repeat echocardiogram/referral for possible low-flow low gradient severe noted on 03/15/2025 echo. Patient presented on 04/07/2025 with complaints of worsening shortness of breath over 4 days. Patient was found to be in respiratory failure, with blood pressure elevated to 200s systolics upon presentation to ED. Patient had evidence of volume overload. He has been followed by nephrology who is augmenting duration of dialysis sessions. Per nephrology note, patient has been dialyzed over 6 L since admission. Patient was to undergo thoracentesis due to large pleural effusion. Patient with blood pressure of 189/74 today, heart rate 74. Current medications include aspirin 81 mg daily, atorvastatin 40 mg daily, Imdur 30 mg daily, metoprolol succinate 50 mg daily. Patient seen at bedside today he has just underwent Thora centesis and is complaining of low back pain over needle site. Patient denies any other acute complaints, he is able to lay flat. [facility] Medical History (Updated 04/09/25 @ 08:[address] Cyndee Teran, ) End stage renal disease on dialysis Unexplained weight loss Type 1 diabetes mellitus with hyperglycemia COPD (chronic obstructive pulmonary disease) Insomnia Anorexia Fracture of femoral neck, right, open Carotid stenosis Anxiety and depression Carotid artery disease Lipohypertrophy due to insulin injection Dyslipidemia Carotid bruit Coronary artery disease Chronic neck pain Debility Cancer Open wound Polymyalgia arteritica Low iron Leg cramps History of edema Cardiology follow-up encounter Prostate cancer Dependent on hemodialysis NPDR (nonproliferative diabetic retinopathy) Nonrheumatic aortic (valve) stenosis History of non-ST elevation myocardial infarction (NSTEMI) End stage renal disease Leukocytosis Edema of left upper arm HFrEF (heart failure with reduced ejection fraction) Acquired neutrophilia Aortic valve stenosis 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 1 diabetes mellitus Chronic neck and back pain Skin mole Fatigue Watery eyes CKD (chronic kidney disease) stage 4, GFR 15-29 ml/min Aortic root dilatation Olecranon bursitis, left elbow Mediastinal mass Olecranon bursitis, right elbow Unintentional weight loss of more than 10 pounds Swelling of right elbow Heart murmur Contact with or suspected exposure to other viral communicable disease Acute bronchitis Insulin dependent diabetes mellitus CKD (chronic kidney disease), stage IV Osteopenia Wears hearing aid Wears glasses Wears dentures Alcohol use Insulin dependent diabetes mellitus Arthritis High cholesterol Back pain Dietary restriction Former smoker Shortness of breath on exertion History of pain when walking History of stress test History of echocardiogram Nicotine dependence, cigarettes, uncomplicated Episode of syncope Mass of lung REYES (dyspnea on exertion) Wears hearing aid in both ears Hearing loss, left Hearing loss, right Kidney stones Smoker Hypertension Chronic kidney insufficiency Diabetic retinopathy associated with type 1 diabetes mellitus Benign essential hypertension Stage 3 chronic kidney disease due to type 1 diabetes mellitus Diabetic polyneuropathy associated with type 1 diabetes mellitus Essential hypertension Mixed hyperlipidemia Vision problem Prostate disease Osteoarthritis Hearing problem COPD (chronic obstructive pulmonary disease) Cataracts, bilateral Bone fracture Back problem Anemia Bronchitis Family history of hyperlipidemia Family history of hypertension Headache Dyspnea on exertion Hyperlipidemia Nicotine abuse Atherosclerotic heart disease of [place] coronary artery without angina pectoris FPC use of drug Sleep apnea Hypertension Home Medications ?Medication ?Instructions ?Recorded ?Last Taken ?Type aspirin 81 mg tablet,delayed 81 mg PO QDAY heart health 06/15/17 04/07/25 History release (Adult Low Dose Aspirin) finasteride 5 mg tablet (Proscar) 5 mg PO DAILY prostate 06/16/17 04/07/25 History flash glucose scanning reader #2 ea 03/28/22 Unknown Rx (FreeStyle Tani 2 [place]) flash glucose sensor (FreeStyle #2 ea 03/28/22 Unknown Rx Tani 2 Sensor kit) cholecalciferol (vitamin D3) 125 125 mcg PO DAILY vitamin 05/05/22 04/06/25 History mcg (5,000 unit) capsule acetaminophen 325 mg tablet 650 mg (2 x 325 mg) PO Q4H PRN PRN 12/12/22 Unknown Rx Fever, pain -01/20 #0 tabs insulin lispro 100 unit/mL See Protocol subcut ACHS diabetes 01/14/23 04/07/25 History subcutaneous pen (Humalog KwikPen (U-100) Insulin) calcium 600 mg (as 1 cap PO DAILY vitamin 01/23/23 04/07/25 History carbonate)-vitamin D3 10 mcg (400 unit) capsule magnesium 250 mg tablet 250 mg PO QDAY supplement 01/29/24 04/07/25 History pantoprazole 40 mg tablet,delayed 40 mg PO BID reflux 01/29/24 04/07/25 History release renal multivitamin 1 tab PO DAILY vitamin 01/29/24 Unknown History tamsulosin 0.4 mg capsule 0.4 mg PO QDAY prostate 01/29/24 04/07/25 History atorvastatin 40 mg tablet 40 mg PO QHS cholesterol 02/24/24 04/06/25 History ferrous sulfate 325 mg (65 mg 325 mg PO DAILY supplement #30 tabs 02/28/24 04/07/25 Rx iron) tablet (Iron (ferrous sulfate)) B1 2 mg-B6 4 mg-folate 800 mcg cap PO vitamin 12/28/24 04/07/25 History KJE-V16-lcmnlwq-L. gasseri-herb capsule docusate sodium 100 mg capsule 100 mg PO QDAY stool softner 12/28/24 04/06/25 History (Colace) duloxetine 30 mg capsule,delayed 30 mg PO QDAY mental health 12/28/24 04/07/25 History release insulin glargine 100 unit/mL (3 10 unit subcut QPM DM 02/08/25 04/06/25 History mL) subcutaneous pen (Lantus Solostar U-100 Insulin) furosemide 40 mg tablet 80 mg PO DAILY weight gain 02/17/25 04/07/25 History empagliflozin 10 mg tablet 10 mg PO DAILY #90 tabs 03/29/25 Unknown Rx (Jardiance) isosorbide mononitrate 30 mg 30 mg PO DAILY #30 tabs 03/29/25 Unknown Rx tablet,extended release 24 hr metoprolol succinate 50 mg 50 mg PO DAILY #90 tabs 03/29/25 04/07/25 Rx tablet,extended release 24 hr Allergy/AdvReac Type Severity Reaction Status Date / Time levofloxacin (From [facility]) Allergy Hives Verified 04/07/25 09:53 vancomycin AdvReac Severe Rash Verified 04/07/25 09:53 Family History Father Diabetes Hypertension Family history of hyperlipidemia Asthma Kidney disease Mother Diabetes Brother Cancer Throat cancer Brother CAD (coronary artery disease) Myocardial infarction, Onset Age: 52 Sister Family history of hyperlipidemia Hypertension Diabetes Unknown Alcoholism Arthritis Depression Diabetes Hypertension Hyperlipidemia Osteoporosis Respiratory disease Pancreatic cancer Other Family history of hypertension Surgical History History of hip surgery S/P arteriovenous (AV) fistula creation Fracture of left patella Wrist fracture, bilateral Fracture of left upper extremity History of colonoscopy (~2013) History of bilateral inguinal hernia repair (~2007) History of hernia repair (~1991) History of hemorrhoidectomy (~2000) stent replacement for right sided kidney stome Social History household members: spouse Smoking Status: Light Smoker (<10/day) Tobacco: How many years used: 50 alcohol intake: never substance use type: does not use caffeine: Yes Type: coffee Number of servings: 2 what type of physical activity do you participate in: none seatbelt use: sometimes do you feel safe at home: Yes ROS ROS Narrative 14 point ROS reviewed, and negative will specified in HPI above. Physical Exam Narrative ?Gen: A&Ox3, frail appearing ?HEENT: Normocephalic/Atraumatic, MMM ?Neck: Supple, no JVD ?Pulm: Normal work of breathing, CTA bilaterally with no wheezes or crackles ?CV: RRR, systolic ejection murmur ?Abd: Soft, NT/ND ?Extr: Warm to touch, no LE edema, ?Neuro: No gross focal deficits, normal speech ?Psych: Normal affect, answers questions appropriately Objective Data Vital Signs: Vital Signs Temp Pulse Resp BP Pulse Ox O2 Del Method O2 Flow Rate 98.1 F 74 16 189/74 H 95 Room Air 2 04/10/25 12:02 04/10/25 12:11 04/10/25 12:02 04/10/25 12:11 04/10/25 12:02 04/10/25 12:02 04/07/25 15:00 FiO2 2 04/07/25 10:54 Oxygen Flow Rate (L/min) 2 Oxygen Delivery Method Room Air Weight: 99 lb 3.328 oz Body Mass Index (BMI) 15.5 Intake & Output: Intake and Output for Last 24 Hours 04/08/25 04/09/25 04/10/25 23:59 23:59 23:59 Intake Total 960 / 1200 1020 / 1500 720 / 720 Output Total 2230 / 2230 2400 / 2400 Balance -1270 / -1030 1020 / 1500 -1680 / -1680 Lab / Micro Data 04/10/25 04:13 04/10/25 04:13 Labs: Laboratory Results - last 24 hr 04/09/25 06:45: POC Glucose 51 L 04/09/25 06:59: POC Glucose 77 04/09/25 17:08: POC Glucose 278 H 04/09/25 21:03: POC Glucose 244 H 04/10/25 04:13: WBC 5.7, RBC 3.18 L, Hgb 10.2 L, Hct 30.5 L, MCV 95.9 H, MCH 32.1 H, MCHC 33.4, RDW Std Deviation 46.7 H, RDW Coeff of Russell 13.2, Plt Count 237, MPV 10.6, Sodium 135, Potassium 4.6, Chloride 95 L, Carbon Dioxide 29.0, Anion Gap 10, BUN 52 H, Creatinine 3.66 H, Estim Creat Clear Calc 10.59 L, Est GFR (MDRD) Non-Af 16 L, BUN/Creatinine Ratio 14.2, Glucose 247 H, Calcium 8.7, Total Bilirubin 0.20, AST 54 H, ALT 69 H, Alkaline Phosphatase 183 H, Lactate Dehydrogenase 205, Total Protein 5.9, Albumin 3.3 L, Globulin 2.5, Albumin/Globulin Ratio 1.3 04/10/25 06:15: POC Glucose 284 H 04/10/25 12:01: POC Glucose 173 H Micro: Microbiology 04/07/25 18:03 Urine, Clean Catch Urine Culture - Final Presumptive E. coli 04/07/25 11:20 Blood Culture (Wb) - Right Forearm Blood Culture - Preliminary No growth in 48 hours. 04/07/25 11:20 Blood Culture (Wb) - Right Wrist Blood Culture - Preliminary No growth in 48 hours. Cardiology Labs/Tests 04/10/25 04:13: WBC 5.7, RBC 3.18 L, Hgb 10.2 L, Hct 30.5 L, MCV 95.9 H, MCH 32.1 H, MCHC 33.4, Plt Count 237, MPV 10.6, Sodium 135, Potassium 4.6, Chloride 95 L, Carbon Dioxide 29.0, Anion Gap 10, BUN 52 H, Creatinine 3.66 H, Est GFR (MDRD) Non-Af 16 L, BUN/Creatinine Ratio 14.2, Glucose 247 H, Calcium 8.7, Total Bilirubin 0.20 Rhythm: EKG: ECHO: Stress Test: Cardiac Cath: PCI: CT Surgery: Holter monitor: EPS: PPM: CXR: Chest CT Scan: THAO Risk Score for UA/STEMI Assesmment (YES = 1) Risk Stratification Applicable: No
--- NOTE | 2025-04-10 14:37 | CASEMGMT ---
RN CM reviewed home O2 test. Pt does not qualify for oxygen at DC. Hospitalist plans to DC today.
--- NOTE | 2025-04-10 15:00 | FLU_PTH ---
PATIENT: DEX VALLE LOC: [facility] U#:[id number] AGE/SX: 79/M ROOM: [facility] RE04/07/[address]: Dr. Rayshawn Owusu DO : 1945 BED: 1 DIS: 04/11/2025 SPEC #: [id number] RECD: 04/10/25 15:22 STATUS: KATI REQ #: [id number] AMBER: 04/10/25 15:[address]: Rayshawn Owusu DEPT: CYTOLOGY RECD BY: Fina Vera ENTERED: 04/11/25 08:31 SP TYPE: Fluid OTHR DR: DO Dr. Cesar Ogden MD Dr. Kathryn Lee, DO Dr. Nana Yaa Koram, MD Dr. Olga Voroshilova, MD Tissues: Pleural fluid, NOS Procedures: Immunohistochemical Stains Special Stain Group II Surgery Specimen Level IV Cytospin Fluid IHC Stain ADDITIONAL HEADER OPERATION: Ultrasound Guided Thoracentesis PRE-OP DIAGNOSIS: Left Pleural Effusion TISSUE SUBMITTED: Left Thoracentesis Fluid DIAGNOSIS CYTOLOGY A. Left pleural effusion, thoracentesis (cytospin, cellblock): - Few atypical cells identified. - Lymphocytosis, erythrocytes present. - Further evaluation with IHC is pending and the findings will be reported in an addendum. CYTOLOGY STUDY Slides are reviewed. CYTOLOGY GROSS Received is 110 ml of nahun cloudy fluid labeled with the patient's name and and designated per the requisition as left thoracentesis. Submitted for cytology and cell block preparation. CPT: 45044,[id number],74334e0 CW:04/11/2025 ADDENDUM ADDENDUM ADDENDUM ADDENDUM ADDENDUM ADDENDUM ADDENDUM ADDENDUM ADDENDUM ADDENDUM ADDENDUM ADDENDUM ADDENDUM ADDENDUM 04/19/2025 16:10 ADDENDUM 04/19/2025 16:10 ADDENDUM 04/19/2025 16:10 ADDENDUM 04/19/2025 16:10 ADDENDUM 04/19/2025 16:10 This addendum is to report the additional IHC findings: Rare CK5/6+ mesothelial cells present with many CD68+ histiocytes/macrophages. BerEp4 and MOC31 are negative for epithelial cells. CD45 highlights lymphocytes. The findings favor a benign reactive process. No malignant cells are identified. All matched controls reacted appropriately. These tests were developed and their performance characteristics determined by [facility]. They may not have been cleared or approved by the U.S. Food and Drug Administration. The FDA has determined that such clearance or approval is not necessary. The above immunohistochemical markers and/or special?stains have been reviewed by the Pathologist.
[2025-04-10] MEDS: Lidocaine 2% (20 ml mdv) 20 ML Vial INFILT (15:10)
[2025-04-10 16:33] LABS: Cytology, Body Fluid / CSF SEE PATHOLOGY REPORT
[2025-04-10 16:50] LABS: Auto B Fluid Analyzer BKGD Ct COUNTS W/IN LIMITS (W/IN LIMITS); Color/Body Fluid SLIGHTLY PINK; Source- Body Fluid THORACENTESIS
[2025-04-10 16:51] LABS: Appearance/Body Fluid TURBID; Body Fluid QC Type(s) BF2Q
[2025-04-10 16:55] LABS: Body Fluid Mononuclear WBC # 0.325 10^3/uL; Body Fluid Mononuclear WBC % 98.1 %; Body Fluid Polynuclear WBC # 0.006 10^3/uL; Body Fluid Polynuclear WBC % 1.9 %; Red Cell Count/Body Fluid 0.011 10^6/ul; White Blood Count/Body Fluid 0.331 10^3/uL
[2025-04-10] MEDS: Heparin Injection (Vial) 5,000 UNIT/ML VIAL 5000 UNIT SC ×2 (17:03→21:15)
[2025-04-10 17:09] LABS: Glucose, Body Fluid 240 mg/dL (Not Establ.)
--- NOTE | 2025-04-10 18:45 | PCM.PN.HOSP ---
Reason for Visit Chief Complaint: shortness of breath Subjective Subjective Patient was seen and examined today, I briefly talked with his today. Patient is on room air at this time, blood pressure this afternoon was 161/72. I had cardiology see the patient in consultation due to the fact the patient's last echocardiogram earlier in March showed a severely reduced ejection fraction. Objective Data Objective Data Vital Signs: Vital Signs Temp Pulse Resp BP Pulse Ox O2 Del Method O2 Flow Rate 100.4 F H 80 18 161/72 H 91 Room Air 2 04/10/25 14:29 04/10/25 16:10 04/10/25 16:10 04/10/25 16:10 04/10/25 14:29 04/10/25 16:10 04/07/25 15:00 FiO2 2 04/07/25 10:54 Oxygen Flow Rate (L/min) 2 Oxygen Delivery Method Room Air Weight: 45 kg Body Mass Index (BMI) 15.5 Intake & Output: Intake and Output for Last 24 Hours 04/08/25 04/09/25 04/10/25 23:59 23:59 23:59 Intake Total 960 / 1200 1020 / 1500 720 / 720 Output Total 2230 / 2230 3150 / 3150 Balance -1270 / -1030 1020 / 1500 -2430 / -2430 Lab / Micro Data 04/10/25 04:13 04/10/25 04:13 Labs: Laboratory Results - last 24 hr 04/09/25 06:45: POC Glucose 51 L 04/09/25 06:59: POC Glucose 77 04/09/25 21:03: POC Glucose 244 H 04/10/25 04:13: WBC 5.7, RBC 3.18 L, Hgb 10.2 L, Hct 30.5 L, MCV 95.9 H, MCH 32.1 H, MCHC 33.4, RDW Std Deviation 46.7 H, RDW Coeff of Russell 13.2, Plt Count 237, MPV 10.6, Sodium 135, Potassium 4.6, Chloride 95 L, Carbon Dioxide 29.0, Anion Gap 10, BUN 52 H, Creatinine 3.66 H, Estim Creat Clear Calc 10.59 L, Est GFR (MDRD) Non-Af 16 L, BUN/Creatinine Ratio 14.2, Glucose 247 H, Calcium 8.7, Total Bilirubin 0.20, AST 54 H, ALT 69 H, Alkaline Phosphatase 183 H, Lactate Dehydrogenase 205, Total Protein 5.9, Albumin 3.3 L, Globulin 2.5, Albumin/Globulin Ratio 1.3 04/10/25 06:15: POC Glucose 284 H 04/10/25 12:01: POC Glucose 173 H 04/10/25 15:00: Fluid Source THORACENTESIS, Fluid Color SLIGHTLY PINK, Fluid Appearance TURBID, Fluid WBC 0.331, Fluid RBC 0.011, Fluid Tot Cell Count 0.342, Fld Polynuclear WBCs # 0.006, Fld Polynuclear WBCs % 1.9, Fluid Mononuclear WBCs 0.325, Fld Mononuclear WBCs % 98.1, Fl Pathologist Comment May follow, Fluid Glucose 240, Fluid Total Protein 2.2, Fluid LDH 167, Fluid Comment 2 SEE COMMENT 04/10/25 17:01: POC Glucose 380 H Micro: Microbiology 04/10/25 15:00 Fluid - Pleural (Lung) Gram Stain - Final 04/07/25 18:03 Urine, Clean Catch Urine Culture - Final Presumptive E. coli 04/07/25 11:20 Blood Culture (Wb) - Right Forearm Blood Culture - Preliminary No growth in 48 hours. 04/07/25 11:20 Blood Culture (Wb) - Right Wrist Blood Culture - Preliminary No growth in 48 hours. 04/07/25 11:20 Mucosa - Nasopharyngeal SARS-CoV-2, Influenza & RSV (PCR) - Final Radiography Diagnostic Testing: Radiology Impression Thoracentesis Ultrasound 04/10/25 06:00 IMPRESSION: Successful diagnostic and therapeutic left thoracentesis. Laboratory results pending. Reading Location: [place] [address] Physical Exam Const alert, oriented x3 and no apparent distress General Appearance: cooperative, well kempt and well developed Orientation / Consciousness: awake, oriented to person, oriented to place and oriented to time HEENT normocephalic, head/scalp atraumatic and moist oral mucous membranes Eyes PERRL, EOMs intact bilaterally and conjunctivae normal Neck supple, no JVD and thyroid normal General: trachea midline Resp normal respiratory effort, no retractions, no use of accessory muscles and clear to auscultation bilaterally Auscultation: Negative for rales, rhonchi or wheezes Cardio regular rate, regular rhythm, S1 normal heart sound, S2 normal heart sound, no murmurs, no rub and no gallops GI normal to inspection, nondistended, normoactive bowel sounds, soft to palpation, non-tender and non-distended Extremity no clubbing, cyanosis or edema Skin no rashes or lesions noted General Skin Exam: no breakdown Neuro oriented x3, CN's II-XII intact bilaterally, no focal motor deficits and no sensory deficits noted Sensorium / Orientation: awake and alert Speech: speech normal Psych affect normal Assessment & Plan Assessment/Plan (1) Acute on chronic heart failure with reduced ejection fraction (HFrEF, <= 40%): PLAN: Plan 1. Acute on chronic congestive heart failure with reduced ejection fraction-patient will be started on losartan 25 mg daily, he will remain on his present medications. He will need close follow-up with cardiology as an outpatient, it is likely he will need a cardiac catheterization to rule out occlusive coronary disease. #2 left-sided pleural effusion-patient underwent thoracentesis today with removal of 750 cc of mild cloudy nahun fluid. I suspect this is secondary to congestive heart failure. #3 end-stage renal disease requiring dialysis-I talked with the nephrology service today, they have arranged for the patient to have more fluid taken off when he undergoes dialysis as an outpatient #4 cardiomyopathy-etiology unclear at this point, again patient will likely undergo cardiac catheterization as an outpatient #5 hyperlipidemia-patient is on atorvastatin #6 chronic depression-patient is on Cymbalta #7 type 2 diabetes-patient's blood sugars will be monitored, sliding scale insulin will be administered as indicated, patient is on basal insulin also #8 coronary artery disease-patient is currently on aspirin, metoprolol, and isosorbide Total clinical time spent by myself addressing the patient's medical issues, reviewing all of his data, and collaborating with patient's care team: 35 minutes Charges/Coding Visit Charges Inpatient E&M: 30377 Subs Hosp L2
[2025-04-10] MEDS: Insulin Glargine-YFGN 100 UNIT/ML Pen 10 UNIT SC (21:15)
[2025-04-10 21:50] LABS: Neutrophil (Segs) 1 %
[2025-04-11 04:00] VITALS: BP 152/72; PULSE 72; RESP 16; TEMP 37.2; O2SAT 98
[2025-04-11 06:23] VITALS: PULSE 77
[2025-04-11] MEDS: Heparin Injection (Vial) 5,000 UNIT/ML VIAL 5000 UNIT SC ×2 (06:23→14:37)
[2025-04-11 09:38] VITALS: BP 132/79; PULSE 80; RESP 16; TEMP 36.9; O2SAT 95
[2025-04-11] MEDS: Aspirin E.C. 81 MG Tablet PO (09:40)
[2025-04-11] MEDS: Folic Acid/Vitamin B Comp W-C 1 Capsule 1 CAP PO (09:43)
[2025-04-11] MEDS: Calcium Carb/Vitamin D 1 TABLET Tablet PO (09:43)
[2025-04-11] MEDS: Magnesium Chloride 64 MG Delay Rel.Tablet PO (09:43)
[2025-04-11] MEDS: Cholecalciferol (Vit D3) 125 MCG CAPSULE (5,000 UNITS) PO (09:44)
--- NOTE | 2025-04-11 11:02 | PCM.PN.REN ---
Subjective Subjective Resting in bed, at bedside. No complaints. Objective Data Objective Data Vital Signs: Vital Signs Temp Pulse Resp BP Pulse Ox O2 Del Method O2 Flow Rate 98.4 F 80 16 132/79 H 95 Room Air 2 04/11/25 09:38 04/11/25 09:38 04/11/25 09:38 04/11/25 09:38 04/11/25 09:38 04/11/25 09:38 04/07/25 15:00 FiO2 2 04/07/25 10:54 Oxygen Flow Rate (L/min) 2 Oxygen Delivery Method Room Air Weight: 45 kg Body Mass Index (BMI) 15.5 Intake & Output: Intake and Output for Last 24 Hours 04/09/25 04/10/25 04/11/25 23:59 23:59 23:59 Intake Total 1020 / 1500 720 / 840 120 / 120 Output Total 3150 / 3150 Balance 1020 / 1500 -2430 / -2310 120 / 120 Lab / Micro Data 04/10/25 04:13 04/10/25 04:13 Labs: Laboratory Results - last 24 hr 04/09/25 06:45: POC Glucose 51 L 04/09/25 06:59: POC Glucose 77 04/10/25 12:01: POC Glucose 173 H 04/10/25 15:00: Fluid Source THORACENTESIS, Fluid Color SLIGHTLY PINK, Fluid Appearance TURBID, Fluid WBC 0.331, Fluid RBC 0.011, Fluid Tot Cell Count 0.342, Fld Polynuclear WBCs # 0.006, Fld Polynuclear WBCs % 1.9, Fluid Mononuclear WBCs 0.325, Fld Mononuclear WBCs % 98.1, Fluid Neutrophils 1, Fluid Lymphocytes 94, Fluid Monocytes 2, Fluid Macrophages 3, Fl Pathologist Comment May follow, Fluid Glucose 240, Fluid Total Protein 2.2, Fluid LDH 167, Fluid Comment 2 SEE COMMENT 04/10/25 17:01: POC Glucose 380 H 04/10/25 21:13: POC Glucose 232 H 04/11/25 06:22: POC Glucose 94 04/11/25 09:36: POC Glucose 136 H Micro: Microbiology 04/10/25 15:00 Fluid - Pleural (Lung) Gram Stain - Final 04/10/25 15:00 Fluid - Pleural (Lung) Body Fluid Culture - Preliminary No growth-Final to follow 04/07/25 18:03 Urine, Clean Catch Urine Culture - Final Presumptive E. coli 04/07/25 11:20 Blood Culture (Wb) - Right Forearm Blood Culture - Preliminary No growth in 48 hours. 04/07/25 11:20 Blood Culture (Wb) - Right Wrist Blood Culture - Preliminary No growth in 48 hours. 04/07/25 11:20 Mucosa - Nasopharyngeal SARS-CoV-2, Influenza & RSV (PCR) - Final Radiography Diagnostic Testing: Radiology Impression Thoracentesis Ultrasound 04/10/25 06:00 IMPRESSION: Successful diagnostic and therapeutic left thoracentesis. Laboratory results pending. Reading Location: [place] [id number] Physical Exam Narrative A&Ox3 S1 S2 RRR LS CTA Abdomen soft, non-tender no edema AVF left UA Assessment & Plan Assessment/Plan (1) End stage renal disease on dialysis: (2) Essential hypertension: (3) Pleural effusion: (4) Acute on chronic heart failure with reduced ejection fraction (HFrEF, <= 40%): PLAN: Plan Assessment/Plan: Patient is a 79-year-old male with past history of ESRD, type 2 diabetes mellitus, hypertension, CAD, ischemic cardiomyopathy with HFrEF, aortic valve stenosis, hyperlipidemia, prostate cancer and PMR. Patient presented to hospital on 04/07/2025 with 4-day history of progressive dyspnea prior to admission. Patient received dialysis on 04/05/2025, 2 days prior to presentation. Patient is admitted to hospital for treatment of acute hypoxic and hypercapnic respiratory failure. He is also found to have large left pleural effusion. Nephrology is asked to see the patient because of ESRD and to arrange for dialysis. 04/10/2025: ESRD on dialysis three times weekly over 3 hour treatment. Patient dialyzing today and attempting ~2.5L fluid removal. Since hospital admission patient has tolerated ~6.2L fluid removal with dialysis. He is scheduled for thoracentesis today. Likely will have a new lowered EDW ~45kg. Discussed with patient and today that given patient's fluid gains between dialysis sessions and amount of fluid that can be removed over a 3 hr HD session that he likely needs longer dialysis to allow for easier fluid removal over longer time frame. They are in agreement to longer dialysis at kidney center. Will update kidney center. Discussed nephrology plan with Dr. Owusu. Patient can be discharged from nephrology standpoint when cleared by primary team. Next dialysis at dialysis clinic will be Thursday this week due to holiday schedule. 04/11/2025; No acute indication for [employer]AD [employer] today, next HD tomorrow. Tolerated 2.4L UF with HD yesterday. Approximately 750ml fluid removed with thoracentesis yesterday. EDW lowered to 45kg. BPs improved, on Toprol, losartan, hydralazine, Imdur. Patient was seen by cardiology for recently decreased EF 20% and aortice valve stenosis, no intervention planned at this time and to follow up with cardiology 04/17/2025. Reviewed Assessment and plan with Dr. Crum.
[2025-04-11 12:24] LABS: Hematocrit 33.5 % (40-54); Hemoglobin 10.8 g/dL (13.0-16.5); Immature Granulocytes Count 0.030 X10^3/uL (0.0-0.0); Mean Corp Hgb Conc 32.2 g/dL (32-36); Mean Corpuscular Volume 96.3 fL (80-94); Mean Platelet Vol. 10.7 fl (6.2-12.0); NRBC Flagged by Analyzer 0 % (0-5); POSITIVE DIFFERENTIAL YES; Platelet Count 224 K/mm3 (150-450); RBC Distribution Width CV 13.2 % (11.6-14.6); RBC Distribution Width SD 46.7 fl (35.1-43.9); Red Blood Count 3.48 M/mm3 (4.6-6.2); White Blood Count 8.1 K/mm3 (4.4-11.0)
[2025-04-11 13:01] LABS: AST(SGOT) 46 U/L (<=37); Alanine Aminotransfer ALT/SGPT 59 U/L (<=46); Albumin, Serum 3.2 g/dL (3.4-4.8); Alkaline Phosphatase 190 U/L (40-129); Anion Gap 13 (7-18); BUN 48 mg/dL (4-19); BUN/Creat Ratio 14.0 RATIO (10-20); Calcium,Total 8.5 mg/dL (7.6-11.0); Carbon Dioxide 23.8 mmol/L (20.0-29.0); Chloride 97 mmol/L (96-106); Estimated Creatinine Clearance 10.75 ml/min (50-250); Globulin 2.6 g/dL (2.2-4.2); Glucose 212 mg/dL (70-99); Potassium 4.8 mmol/L (3.5-5.1)
--- NOTE | 2025-04-11 13:52 | DCINST_ITS ---
Discharge Instructions DC O2, CPAP, BIPAP needs Home O2 Discharge instructions: No Dressing / Incision Discharge Activity: Return to Normal Activity Weight Bearing Status: Full weight bearing Follow Up Care Test Results: Test results from this visit will be discussed in further detail at your follow- up appointment, if applicable. Discharge Plan Admission Admit Date/Time: 04/07/25 13:04 Primary Reason for Your Visit: Congestive heart failure, left-sided pleural effusion Attending Provider: Rayshawn Owusu Primary Care Provider: Cesar Keenan Consulting Providers: Elke Crum; Deisi Heredia; Cyndee Teran; Demarco Cabrera; Demarco Walls; Radha Longoria; Cathy Caputo; Kelle Waldron; Loren Melton VIDEO TAPE TRANSFERRER; Barbra Solano Instructions Patient Instructions: EDGAR RN Thoracentesis Dc Discharge Orders/Prescriptions Prescriptions: New hydralazine 10 mg Tablet 10 mg PO TID Qty: 90 0RF losartan 25 mg Tablet 25 mg PO DAILY Qty: 30 0RF hydrocodone-acetaminophen 5-325 mg tablet 2 tab PO Q6H PRN (Reason: pain) 7 Days Qty: 40 0RF Rx Instructions: 1 or 2 every 6 hours as needed for pain Continued aspirin [Adult Low Dose Aspirin] 81 mg tablet,delayed release (DR/EC) 81 mg PO QDAY finasteride [Proscar] 5 mg tablet 5 mg PO DAILY (DME) FreeStyle Tani 2 Sensor Kit See Rx Instructions .Route Qty: 2 3RF Rx Instructions: As directed (DME) FreeStyle Tani 2 [place] Misc See Rx Instructions .Route Qty: 2 3RF Rx Instructions: As directed cholecalciferol (vitamin D3) 125 mcg (5,000 unit) capsule 125 mcg PO DAILY insulin lispro [Humalog KwikPen Insulin] 100 unit/mL insulin pen See Protocol subcut ACHS Protocol: 4. Sliding Scale Insulin High-Med Dosing Condition: 150-199 mg/dl = 2 units Condition: 200-259 mg/dl = 4 units Condition: 260-324 mg/dl = 6 units Condition: 325-374 mg/dl = 8 units Condition: 375-409 mg/dl = 10 units Condition: 410-449 mg/dl = 11 units Condition: Greater than 449 call physician Protocol Text: - Use for Total Daily Dose of Insulin 56-80 units - Patient who are insulin resistant or septic HIGH MEDIUM DOSING ALGORITHM calcium carbonate-vitamin D3 600 mg-10 mcg (400 unit) capsule 1 cap PO DAILY furosemide 40 mg tablet 80 mg PO DAILY tamsulosin 0.4 mg capsule 0.4 mg PO QDAY pantoprazole 40 mg tablet,delayed release (DR/EC) 40 mg PO BID renal multivitamin 1 tab PO DAILY magnesium 250 mg tablet 250 mg PO QDAY docusate sodium [Colace] 100 mg capsule 100 mg PO QDAY duloxetine 30 mg capsule,delayed release(DR/EC) 30 mg PO QDAY [id number] 2 mg-4 mg-800 mcg DFE-2.4 mcg capsule PO metoprolol succinate 50 mg tablet extended release 24 hr 50 mg PO DAILY Qty: 90 3RF isosorbide mononitrate 30 mg tablet extended release 24 hr 30 mg PO DAILY Qty: 30 11RF acetaminophen 325 mg Tablet 650 mg PO Q4H PRN PRN (Reason: Fever, pain -01/20) Qty: 0 0RF insulin glargine [Lantus Solostar U-100 Insulin] 100 unit/mL (3 mL) insulin pen 10 unit SC QPM Patient Comments: Pt. states he takes 10-12u atorvastatin 40 mg tablet 40 mg PO QHS ferrous sulfate [Iron (ferrous sulfate)] 325 mg (65 mg iron) tablet 325 mg PO DAILY Qty: 30 0RF Discontinued Jardiance 10 mg tablet 10 mg PO DAILY Qty: 90 3RF Referrals / Follow Up: Cesar Keenan MD [Primary Care Provider, Internal Medicine] - 04/26/25 12:30 pm Referral Note: in two weeks Disposition Disposition (needs filled in before D/C Order can be placed): Home, Self Care
--- NOTE | 2025-04-11 14:11 | PCM.DC.SUM ---
Providers Date of Admission: 04/07/25 Date of Discharge: 04/11/25 Primary Care Physician: Dr. Cesar Keenan MD Consultations 04/07/25 13:31 Consult: Nephrology Routine Consulting Provider: Elke Crum Reason for Consult: ESRD on HD, fluid overload EMERGENT Consult: No Notified: Yes Date Notified: 04/07/25 Time Notified: 13:33 Method of Notification: Verbal Comments:: dialysis nurse informed bench hand machine about patient 04/10/25 12:34 Consult: Cardiology Routine Consulting Provider: Demarco Cabrera Reason for Consult: Cardiomyopathy EMERGENT Consult: No MD Notified: Yes Date Notified: 04/10/25 Time Notified: 12:34 Method of Notification: Verbal 04/11/25 13:27 Consult: Hospice / Outpatient Palliative Care Routine Consulting Provider: [facility] Reason for Consult: CHF, HD, pain mgnt EMERGENT Consult: No MD Notified: Yes Date Notified: 04/11/25 Time Notified: 13:27 Method of Notification: Verbal Comments:: Palliative referral Reason For Visit: HYPERTENSIVE EMERGENCY, FLUID OVERLOAD Diagnosis Discharge Diagnosis (1) End stage renal disease on dialysis: Status: Acute Code(s): N18.6 - End stage renal disease; Z99.2 - Dependence on renal dialysis (2) Essential hypertension: Status: Chronic Code(s): I10 - Essential (primary) hypertension (3) Pleural effusion: Status: Acute Code(s): J90 - Pleural effusion, not elsewhere classified (4) Acute on chronic heart failure with reduced ejection fraction (HFrEF, <= 40%): Status: Chronic Code(s): I50.23 - Acute on chronic systolic (congestive) heart failure Plan 1. Acute on chronic congestive heart failure with reduced ejection fraction-patient will be started on losartan 25 mg daily, he will remain on his present medications. He will need close follow-up with cardiology as an outpatient, it is likely he will need a cardiac catheterization to rule out occlusive coronary disease. #2 left-sided pleural effusion-patient underwent thoracentesis today with removal of 750 cc of mild cloudy nahun fluid. I suspect this is secondary to congestive heart failure. #3 end-stage renal disease requiring dialysis-I talked with the nephrology service today, they have arranged for the patient to have more fluid taken off when he undergoes dialysis as an outpatient #4 cardiomyopathy-etiology unclear at this point, again patient will likely undergo cardiac catheterization as an outpatient #5 hyperlipidemia-patient is on atorvastatin #6 chronic depression-patient is on Cymbalta #7 type 2 diabetes-patient's blood sugars will be monitored, sliding scale insulin will be administered as indicated, patient is on basal insulin also #8 coronary artery disease-patient is currently on aspirin, metoprolol, and isosorbide Total clinical time spent by myself addressing the patient's medical issues, reviewing all of his data, and collaborating with patient's care team: 35 minutes Medications at Discharge Home Medications aspirin 81 mg tablet,delayed release (Adult Low Dose Aspirin) 81 mg PO QDAY heart health 06/15/17 finasteride 5 mg tablet (Proscar) 5 mg PO DAILY prostate 06/16/17 flash glucose scanning reader ([employer] Tani 2 [place]) #2 ea 03/28/22 flash glucose sensor (FreeStyle Tani 2 Sensor kit) #2 ea 03/28/22 cholecalciferol (vitamin D3) 125 mcg (5,000 unit) capsule 125 mcg PO DAILY vitamin 05/05/22 insulin lispro 100 unit/mL subcutaneous pen (Humalog KwikPen (U-100) Insulin) See Protocol subcut ACHS diabetes 01/14/23 calcium 600 mg (as carbonate)-vitamin D3 10 mcg (400 unit) capsule 1 cap PO DAILY vitamin 01/23/23 magnesium 250 mg tablet 250 mg PO QDAY supplement 01/29/24 pantoprazole 40 mg tablet,delayed release 40 mg PO BID reflux 01/29/24 renal multivitamin 1 tab PO DAILY vitamin 01/29/24 tamsulosin 0.4 mg capsule 0.4 mg PO QDAY prostate 01/29/24 atorvastatin 40 mg tablet 40 mg PO QHS cholesterol 02/24/24 ferrous sulfate 325 mg (65 mg iron) tablet (Iron (ferrous sulfate)) 325 mg PO DAILY supplement #30 tabs 02/28/24 B1 2 mg-B6 4 mg-folate 800 mcg [id number]. gasseri-herb capsule 1 cap PO DAILY vitamin 12/28/24 docusate sodium 100 mg capsule (Colace) 100 mg PO QDAY stool softner 12/28/24 duloxetine 30 mg capsule,delayed release 30 mg PO QDAY mental health 12/28/24 insulin glargine 100 unit/mL (3 mL) subcutaneous pen (Lantus Solostar U-100 Insulin) 10 unit subcut QPM DM 02/08/25 furosemide 40 mg tablet 80 mg PO DAILY weight gain 02/17/25 isosorbide mononitrate 30 mg tablet,extended release 24 hr 30 mg PO DAILY heart #30 tabs 03/29/25 metoprolol succinate 50 mg tablet,extended release 24 hr 50 mg PO DAILY blood pressure #90 tabs 03/29/25 hydralazine 10 mg tablet 10 mg PO TID #90 tabs 04/11/25 hydrocodone-acetaminophen 5-325mg 5mg-325mg 2 tab PO Q6H PRN pain 7 days #40 tabs 04/11/25 losartan 25 mg tablet 25 mg PO DAILY #30 tabs 04/11/25 Hospital Course Operations None Procedures 2-D Echocardiogram, Dialysis and Thoracentesis Summary of Care Provided Minutes Spent on Discharge: 31 Hospital Course: This 79-year-old white male was seen in the emergency room at [facility] with a chief complaint of shortness of breath. Medical history included end-stage renal disease with dialysis, chronic obstructive pulmonary disease, and type 2 diabetes. Workup in the emergency room included a CBC which was remarkable for hemoglobin 11.9, chemistry profile was abnormal for creatinine of 3.85 and a BUN of 59. Patient's AST and ALT were elevated as well as his alkaline phosphatase. Chest x-ray was performed which showed findings compatible with pulmonary edema due to CHF and a moderate to large left-sided pleural effusion. Patient required oxygen at 2 L to maintain his pulse ox above 90%. Patient was admitted to PCU and seen in consultation by nephrology, he underwent dialysis and his dialysis time was adjusted to a longer period as an outpatient. Patient had an echocardiogram performed which showed ejection fraction of 20% along with severe pulmonary hypertension. Patient was seen in consultation by cardiology and his medications were adjusted. Patient underwent a left thoracentesis with removal of approximately 750 cc of fluid which was exudative in nature. Patient did not require oxygen at the time of discharge. On 04/11/2025, patient was seen and examined:alert, oriented x3 and no apparent distress General Appearance: cooperative, well kempt and well developed Orientation / Consciousness: awake, oriented to person, oriented to place and oriented to time HEENT normocephalic, head/scalp atraumatic and moist oral mucous membranes Eyes PERRL, EOMs intact bilaterally and conjunctivae normal Neck supple, no JVD and thyroid normal General: trachea midline Resp normal respiratory effort, no retractions, no use of accessory muscles and clear to auscultation bilaterally Auscultation: Negative for rales, rhonchi or wheezes Cardio regular rate, regular rhythm, S1 normal heart sound, S2 normal heart sound, no murmurs, no rub and no gallops GI normal to inspection, nondistended, normoactive bowel sounds, soft to palpation, non-tender and non-distended Extremity no clubbing, cyanosis or edema Skin no rashes or lesions noted General Skin Exam: no breakdown Neuro oriented x3, CN's II-XII intact bilaterally, no focal motor deficits and no sensory deficits noted Sensorium / Orientation: awake and alert Speech: speech normal Psych affect normal Patient was discharged home in stable condition on 04/11/2025, I had a discussion with the patient and his family concerning palliative care due to the fact the patient has chronic lower back and neck pain from degenerative disc disease. [facility] with the patient as an outpatient. Weight / BMI Weight Weight: 45 kg Body Mass Index (BMI) 15.5 ABG / Lab / Microbiology Data 04/11/25 12:15 04/11/25 12:15 Laboratory: Laboratory Results - last 24 hr 04/10/25 15:00: Fl Pathologist Comment Reviewed Microbiology: Microbiology 04/07/25 11:20 Blood Culture (Wb) - Right Wrist Blood Culture - Final No growth in 5 days. 04/07/25 11:20 Blood Culture (Wb) - Right Forearm Blood Culture - Final No growth in 5 days. 04/10/25 15:00 Fluid - Pleural (Lung) Gram Stain - Final 04/10/25 15:00 Fluid - Pleural (Lung) Body Fluid Culture - Preliminary No growth-Final to follow 04/07/25 18:03 Urine, Clean Catch Urine Culture - Final Presumptive E. coli 04/07/25 11:20 Mucosa - Nasopharyngeal SARS-CoV-2, Influenza & RSV (PCR) - Final Radiography Diagnostic Testing: Radiology Impression Thoracentesis Ultrasound 04/10/25 06:00 IMPRESSION: Successful diagnostic and therapeutic left thoracentesis. Laboratory results pending. Reading Location: [place] [address] D/C Instructions Weight Bearing Status: Full weight bearing DC O2, CPAP, BIPAP Needs Home O2 Discharge instructions: No Meaningful Use Info Meaningful Use Meaningful Use Diagnoses (Choose all that apply): CHF CHF JOON/ARB ordered at discharge?: Yes Documented LVEF (%): 20 Discharge Plan Admission Admit Date/Time: 04/07/25 13:04 Primary Reason for Your Visit: Congestive heart failure, left-sided pleural effusion Attending Provider: Rayshawn Owusu Primary Care Provider: Cesar Keenan Consulting Providers: Elke Crum; Deisi Heredia; Cyndee Teran; Demarco Cabrera; Demarco Walls; Radha Longoria; Cathy Caputo; Kelle Waldron; Loren Melton BOOSTER PUMP OPERATOR; Barbra Solano Instructions Patient Instructions: RAD RN Thoracentesis Dc Discharge Orders/Prescriptions Prescriptions: New hydralazine 10 mg Tablet 10 mg PO TID Qty: 90 0RF losartan 25 mg Tablet 25 mg PO DAILY Qty: 30 0RF hydrocodone-acetaminophen 5-325 mg tablet 2 tab PO Q6H PRN (Reason: pain) 7 Days Qty: 40 0RF Rx Instructions: 1 or 2 every 6 hours as needed for pain Continued aspirin [Adult Low Dose Aspirin] 81 mg tablet,delayed release (DR/EC) 81 mg PO QDAY finasteride [Proscar] 5 mg tablet 5 mg PO DAILY (DME) FreeStyle Tani 2 Sensor Kit See Rx Instructions .Route Qty: 2 3RF Rx Instructions: As directed (DME) FreeStyle Tani 2 [place] Misc See Rx Instructions .Route Qty: 2 3RF Rx Instructions: As directed cholecalciferol (vitamin D3) 125 mcg (5,000 unit) capsule 125 mcg PO DAILY insulin lispro [Humalog KwikPen Insulin] 100 unit/mL insulin pen See Protocol subcut [facility] Protocol: 4. Sliding Scale Insulin High-Med Dosing Condition: 150-199 mg/dl = 2 units Condition: 200-259 mg/dl = 4 units Condition: 260-324 mg/dl = 6 units Condition: 325-374 mg/dl = 8 units Condition: 375-409 mg/dl = 10 units Condition: 410-449 mg/dl = 11 units Condition: Greater than 449 call physician Protocol Text: - Use for Total Daily Dose of Insulin 56-80 units - Patient who are insulin resistant or septic HIGH MEDIUM DOSING ALGORITHM calcium carbonate-vitamin D3 600 mg-10 mcg (400 unit) capsule 1 cap PO DAILY furosemide 40 mg tablet 80 mg PO DAILY tamsulosin 0.4 mg capsule 0.4 mg PO QDAY pantoprazole 40 mg tablet,delayed release (DR/EC) 40 mg PO BID renal multivitamin 1 tab PO DAILY magnesium 250 mg tablet 250 mg PO QDAY docusate sodium [Colace] 100 mg capsule 100 mg PO QDAY duloxetine 30 mg capsule,delayed release(DR/EC) 30 mg PO QDAY [id number] 2 mg-4 mg-800 mcg DFE-2.4 mcg capsule 1 cap PO DAILY metoprolol succinate 50 mg tablet extended release 24 hr 50 mg PO DAILY Qty: 90 3RF isosorbide mononitrate 30 mg tablet extended release 24 hr 30 mg PO DAILY Qty: 30 11RF insulin glargine [Lantus Solostar U-100 Insulin] 100 unit/mL (3 mL) insulin pen 10 unit SC QPM Patient Comments: Pt. states he takes 10-12u atorvastatin 40 mg tablet 40 mg PO QHS ferrous sulfate [Iron (ferrous sulfate)] 325 mg (65 mg iron) tablet 325 mg PO DAILY Qty: 30 0RF Discontinued Jardiance 10 mg tablet 10 mg PO DAILY Qty: 90 3RF Referrals / Follow Up: Cesar Keenan MD [Primary Care Provider, Internal Medicine] - 04/26/25 12:30 pm Referral Note: in two weeks Disposition Disposition (needs filled in before D/C Order can be placed): Home, Self Care Charges/Coding Visit Charges Inpatient E&M: 75201 Disch Hosp >30min
--- NOTE | 2025-04-11 14:20 | CASEMGMT ---
Addendum entered by Nicky Rhoades 04/12/25 09:33: Referral sent to [facility] via secure e-maiL. Original Note: NADEEM VINCENT NOTE: Per Dr Owusu, pt will be discharging home today. Order received for palliative care referral. NADEEM VINCENT to room. Pt resting in bed, @ bedside. Introduced self and role. Info sheet about palliative care provided to them and questions answered. verifies she would like a referral. Provided w/list of Palliative agencies. chose [facility]. Will send referral. Pt and aware pt to go to OP HD @ [facility] tomorrow morning @ 5:45 AM d/t holiday schedule this week. Reviewed therapy note today, pt refused to walk w/them. Per Dr Owusu, he would like pt to walk today prior to discharge. Discussed discharge and strength/ambulation & made aware Dr Owusu would like him to ambulate prior to discharge. He states he will do that. RNKristy, also aware. Pt states he does feel strong enough to discharge today and feels he will be safe @ home. NADEEM VINCENT did broach topic of HHC but he and decline. He states he is still not sure if he will do OP therapy, but he does have the script for it and will decide once he gets home. Pt and made aware to contact PCP if they change their minds about HHC. They voice understanding. Pt and deny having further discharge needs or concerns. Chance JUNG RN, CM
--- NOTE | 2025-04-11 14:30 | CASEMGMT ---
Addendum entered by Nicky Rhoades 04/11/25 14:37: Home ambulatory O2 testing has been completed. Pt does not qualify for home O2. Original Note: NADEEM VINCENT note: Marylu @ [facility] notified pt is discharging home today and plans to come to OP HD appt tomorrow morning @ 5:45 AM. Chance JUNG RN, CM
[2025-04-11 14:32] VITALS: BP 142/66; PULSE 75; RESP 16; TEMP 36.6; O2SAT 95; O2SAT 96
[2025-04-11 14:34] VITALS: BP 142/66; PULSE 75
[2025-04-12 14:33] LABS: Pathologist Comment/Body Fluid Reviewed
== END 2025-04-11 16:31 | disposition home or self-care (01) | DRG 291 ==
LOC: ED 12:51 → PCU 13:35
PROVIDERS: Internal Medicine; Admitting Provider Student in an Organized Health Care Education/Training Program; Emergency Provider Emergency Medicine; PCP Internal Medicine; Visit Provider Internal Medicine
DX: I13.2 Hypertensive heart and chronic kidney disease with heart failure and with stage 5 chronic kidney disease, or end stage renal disease (principal); N18.6 End stage renal disease; I50.23 Acute on chronic systolic (congestive) heart failure; J90 Pleural effusion, not elsewhere classified; N13.8 Other obstructive and reflux uropathy; I16.1 Hypertensive emergency; D63.1 Anemia in chronic kidney disease; J44.9 Chronic obstructive pulmonary disease, unspecified; E11.22 Type 2 diabetes mellitus with diabetic chronic kidney disease; I35.0 Nonrheumatic aortic (valve) stenosis; F32.A Depression, unspecified; Z99.2 Dependence on renal dialysis; Z79.4 Long term (current) use of insulin; I25.10 Atherosclerotic heart disease of native coronary artery without angina pectoris; E78.2 Mixed hyperlipidemia; K21.9 Gastro-esophageal reflux disease without esophagitis; F17.200 Nicotine dependence, unspecified, uncomplicated; I25.5 Ischemic cardiomyopathy; I25.2 Old myocardial infarction; E11.649 Type 2 diabetes mellitus with hypoglycemia without coma; Z79.84 Long term (current) use of oral hypoglycemic drugs; R53.1 Weakness; Z79.899 Other long term (current) drug therapy; Z79.82 Long term (current) use of aspirin; Z85.46 Personal history of malignant neoplasm of prostate; R09.02 Hypoxemia; N40.1 Benign prostatic hyperplasia with lower urinary tract symptoms
CPT/HCPCS: 32555; 36415; 71045; 71046; 80048; 80053; 81001; 82945; 82962; 83036; 83605; 83615; 84157; 85025; 85027; 85610; 85730; 87040; 87070; 87075; 87086; 87088; 87205; 87631; 88108; 88305; 88313; 88341; 88342; 89050; 90937; 93005; 97110; 97162; 97165; 97530; 97802; 97803; 99285; A4216; G0257; J1938